=== PATIENT | male | born 1960 | race Caucasian/White ===

== ENCOUNTER → 2016-11-09 | Outpatient (CLI) | payer BC ==
--- NOTE | 2016-11-09 16:07 | P.BASOAP ---
Subjective Principal diagnosis: Morbid obesity Patient has had progressive weight gain. He is about 15-20 pounds heavier than when he first had his lap band in 2009. He had initially done quite well losing about 150 pounds and then for no identifiable reason began to slowly gain. The patient has had some peripheral edema that was felt to not be related to any cardiac reasons. He was recently diagnosed with prostate cancer and is currently going through prostate cancer radiation. He is interested in band removal and conversion at this time. He is leaning towards a gastric bypass. He describes frequent episodes of nausea and sometimes vomiting as well. Minimal heartburn. Band currently does have fluid within it. Is not interested in loosening the band at this time. He believes he has adequate restriction overall. Denies abdominal pain. Objective - Vital Signs Vital signs: Intake & Output 11/08/16 11/09/16 11/09/16 18:59 06:59 18:59 Weight 187.198 kg - Exam Abdomen: Soft, obese, nontender Assessment/Plan (1) Morbid obesity Narrative/Plan: Patient is in my opinion a good candidate for band conversion. We discussed the options of conversion to sleeve gastrectomy or gastric bypass and I do think he would benefit more from gastric bypass at this time. We will obtain insurance coverage clearance. Following that we will have the patient attend a bariatric seminar and move forward from there. Plan: Date: Initial Weight: Initial BMI: Current Weight: 187.198 kg Current BMI: Type of Surgery: Total Volume in Band: Previous Volume: Volume Removed: Volume Added: Band Size:
[2016-11-09 16:09] VITALS: BP 151/78; PULSE 88; TEMP 97.8; BMI 57.5
== END | disposition home or self-care (01) ==
LOC: BARWHC3 14:24
PROVIDERS: ATTEND Surgery
DX: Z01.818 Encounter for other preprocedural examination (principal); E66.01 Morbid (severe) obesity due to excess calories; C61 Malignant neoplasm of prostate; Z98.84 Bariatric surgery status
CPT/HCPCS: 99201

== ENCOUNTER → 2016-11-24 | Outpatient (CLI) | payer BC ==
[2016-11-24 15:27] VITALS: BP 158/87; PULSE 99; TEMP 98.3; BMI 58.0
[2016-11-24 16:46] LABS: CH 29.7; CHCM 32.6; HCT 33.4 % (39.0-53.0); HGB 10.7 gm/dL (13.0-17.5); MCH 29.5 pg (25.0-35.0); MCHC 32.1 g/dL (31.0-37.0); MCV 91.9 fL (80.0-100.0); Mean Platelet Volume 7.9; RBC 3.63 m/uL (4.30-5.90); RDW 14.8 % (11.5-15.5); WBC 8.3 k/uL (3.8-10.6)
[2016-11-24 17:01] LABS: Calcium 8.9 mg/dL (8.4-10.2); Potassium 5.4 mmol/L (3.5-5.1); Total Bilirubin 0.2 mg/dL (0.2-1.3); Total Protein 6.7 g/dL (6.3-8.2)
[2016-11-24 17:10] LABS: % Iron Saturation 16.2 % (20-50)
[2016-11-29 06:42] LABS: Anabasine Urine <2.0 ng/mL (<2.0)
--- NOTE | 2016-12-30 04:29 | P.PN ---
Progress Note - Text DATE OF CONSULTATION: 11/24/2016 CHIEF COMPLAINT: Initial bariatric assessment. HISTORY OF PRESENT ILLNESS: Lan Tillman is a 56-year-old gentleman who has a history of long-standing morbid obesity. In June, he weighed 410 pounds. For his height of 5 feet 10-1/2 inches his ideal body weight is 173 pounds. His body mass index was 58.1. He then had a gastric band and was able to lose over 150 pounds over the course of 2-1/2 years. He was able to get down to 251 pounds. Now he comes in back to his initial weight of 409 pounds. He has already regained 158 pounds. His present body mass index was 58.0. Overall in the last 7 years, his weight loss has been essentially zero. He reports developing hypertension. His blood pressure has been as high as 220/120. He takes at least 3 different medications for his blood pressure. He reports having daily terrible headaches. He had developed neuropathy secondary to diabetes of his feet and legs. He had also been evaluated at [facility]. He reports that his hemoglobin A1c was at least as high 19.6 and has been down to 13 and now down to 6.8. He also reports history of elevated PSA levels in March 2016. He was diagnosed with prostate cancer in July 2016. He has now completed radiation treatment for his prostate. He states he has a clean bill of health now to pursue weight loss surgery. He reports having nausea. In the last 2 months, he has already gained 20 pounds. He has all fluid removed out of his band since August 2015. He has seen his accounts receivable clerk where he says his EKG has been unremarkable. He denies having a gallbladder at this time. He also reports sleep apnea. He now presents for further evaluation and management. He is evaluating for gastrectomy type options. PAST MEDICAL HISTORY: 1. Morbid obese. 2. Insulin-dependent diabetes type 2. 3. Diabetic neuropathy. 4. Hypertensive heart disease. 5. Hypothyroidism. 6. Hyperlipidemia. 7. Chronic debilitating headaches. 8. Thyroid disorder. 9. History of CVA, TIA. 10. History of prostate cancer. PAST SURGICAL HISTORY: 1. Adjustable gastric band with subsequent initial weight loss of 168 pounds, now with weight gain. 2. Cholecystectomy. 3. Heart catheterization. 4. History of surgeries to her right ankle. MEDICATIONS: 1. Glucotrol. 2. Lyrica. 3. Zestril. 4. Synthroid. 5. Lantus. 6. NovoLog. 7. [place]. 8. Neurontin. 9. Lasix. 10. Lipitor. ALLERGIES: Denies. SOCIAL HISTORY: Former tobacco user. FAMILY HISTORY: Pertinent for diabetes, morbid obesity. No reports of esophageal or stomach cancer. REVIEW OF SYSTEMS: CONSTITUTIONAL: He is 236 pounds overweight. [place] body weight is 173 pounds for 5-foot-, 10-1/2-inch frame. Highest weight 410 pounds. Highest body mass index 58.1. HEENT: No reports of troubles with vision, hearing. No reports of nasal bleeding. ENDOCRINE: No reports of thyroid disorders. Insulin-dependent diabetes. Highest hemoglobin A1c of 19 down to 6. RESPIRATORY: History of obstructive sleep apnea. No recent pneumonia. CARDIOVASCULAR: History of hypertensive heart disease and is on 3 different medications. No recent heart attack. GASTROINTESTINAL: History of gallbladder disease gallbladder is removed. Reports nausea. MUSCULOSKELETAL: History of diffuse osteoarthritis. NEURO: History of diabetic neuropathy in the feet and legs. History of chronic debilitating headache. PSYCH: No reports of depression or suicidal ideation. HEMATOLOGIC: No recent reports of DVTs or pulmonary embolism. DIETARY: Previous history of adjustable gastric band with successful weight loss down to 251 pounds now all with weight gain. PHYSICAL EXAM: VITAL SIGNS: 98.3, 99, 158/87, 16, 5 feet 10-1/2inches, 409 pounds. Body mass index of 58. GENERAL: Well-developed, pleasant male in no acute distress. HEENT: No sclerae icterus. Extraocular movements grossly intact. NECK: Supple without lymphadenopathy. CHEST: Nonlabored respirations. Equal bilateral excursions. CARDIOVASCULAR: Regular rate and rhythm. ABDOMEN: Obese, soft, nontender, nondistended. MUSCULOSKELETAL: No clubbing, cyanosis or edema. NEURO: No focal or lateralizing signs. PSYCH: Appropriate affect. Alert and oriented to person, place, and time. LABS: Hemoglobin was low at 10.7. Potassium was elevated at 5.4. BUN elevated at 39. Creatinine elevated 1.6. Previous was 1.1 two years ago. Glucose elevated at 247. Iron low at 45. Percent iron saturation low at 16.2. Triglycerides elevated 165. Vitamin D is low at 14.1. Urine cotinine is positive 5.7. Urine nicotine is 7.4. No recent EKG found. ASSESSMENT: 1. Morbid obesity due to excess calories. 2. Previous history of adjustable gastric band. 3. Poorly controlled insulin-dependent diabetes type 2. 4. History of diabetic neuropathy. 5. Hypertensive heart disease. 6. History of chronic nausea. 7. History of obstructive sleep apnea. 8. Hypothyroidism. 9. History of prostate cancer, status post radiation therapy. 10. Previous history of chronic headaches. 11. Family history of obesity. 12. Body mass is a 58.0. 13. Chronic iron deficiency anemia. PLAN: 1. He has completed a bariatric metabolic panel which demonstrates iron deficiency anemia of unclear etiology. 2. He is evaluating for gastrectomy-type procedures potentially with band removal and revision to a sleeve or gastric bypass. He is extremely high risk at this time and with recent treatment with radiation therapy for prostate cancer. I do recommend ideally a 2 stage procedure. 3. He has a previous history of poorly controlled diabetes type 2, with insulin dependence. His recent hemoglobin A1c he stated was 19 by his primary care provider. I would recommend a repeat. 4. Recommend upper endoscopy for further evaluation and management as he has nausea. This may be a reflection of diabetic gastroparesis given the severity of his poorly controlled diabetes. 5. [place] bariatric surgery collaborative data was reviewed. Benefits and risks of gastrectomy procedures were also evaluated as he already has adjustable gastric band. 6. Requirements per insurance guidelines including psychiatric assessment may be advisable. 7. Medical risk assessment. 8. Will need most recent cardiac risk assessment. 9. Recommend readjustment of a CPAP machine with his history of moderate weight gain. 10. Overall Mr. Tillman presents as a potential revision surgery with multiple risk factors. Given his current medical condition including previous history of poorly controlled diabetes, he is at risk for leaks as well as a potential wound infection and strictures. Again, will highly recommend potential 2 stage procedure as to minimize his overall risk to anesthesia and to address his history of chronic nausea.
== END | disposition home or self-care (01) ==
LOC: BARWHC3 14:16
PROVIDERS: ATTEND Surgery Plastic and Reconstructive Surgery
DX: Z01.818 Encounter for other preprocedural examination (principal); E66.01 Morbid (severe) obesity due to excess calories; Z68.43 Body mass index [BMI] 50.0-59.9, adult; E11.65 Type 2 diabetes mellitus with hyperglycemia; E11.40 Type 2 diabetes mellitus with diabetic neuropathy, unspecified; Z98.84 Bariatric surgery status; I11.9 Hypertensive heart disease without heart failure; R11.0 Nausea; G47.33 Obstructive sleep apnea (adult) (pediatric); E03.9 Hypothyroidism, unspecified; Z85.46 Personal history of malignant neoplasm of prostate; R51 Headache; Z86.73 Personal history of transient ischemic attack (TIA), and cerebral infarction without residual deficits; E89.1 Postprocedural hypoinsulinemia; E44.0 Moderate protein-calorie malnutrition; D50.8 Other iron deficiency anemias; Z84.89 Family history of other specified conditions; Z98.890 Other specified postprocedural states; Z87.891 Personal history of nicotine dependence; Z79.84 Long term (current) use of oral hypoglycemic drugs; Z79.899 Other long term (current) drug therapy; Z79.4 Long term (current) use of insulin
CPT/HCPCS: 80053; 80061; 80323; 82306; 82607; 82728; 82746; 83540; 83550; 84425; 84443; 85027; 99211

== ENCOUNTER 2017-02-23 07:16 | Day surgery (SDC) | payer BC ==
[2017-02-18 15:51] VITALS: BMI 55.7
[~2017-02-23 07:16] MED LIST: LACTATED RINGERS 1,000 ML IV SCH; LIDOCAINE 1% 20 ML VIAL (10MG/ML) FOR IV START INTRADERMA PRN
[2017-02-23 07:40] VITALS: RESP 16; TEMP 97.3
[2017-02-23 07:43] LABS: Glucose,Whole Blood 183 mg/dL (75-99)
--- NOTE | 2017-02-23 08:01 | P.GSHP ---
History of Present Illness H&P Date: 02/23/17 CHIEF COMPLAINT: GERD HISTORY OF PRESENT ILLNESS: The patient is a 56-year-old male who presents reports gastroesophageal reflux disease. Upper endoscopy was offered for further evaluation and management. PAST MEDICAL HISTORY: Please see list. PAST SURGICAL HISTORY: Please see list. MEDICATIONS: Please see list. ALLERGIES: Please see list. SOCIAL HISTORY: No illicit drug use FAMILY HISTORY: No reports of Crohn disease or ulcerative colitis. REVIEW OF ORGAN SYSTEMS: CONSTITUTIONAL: No reports of fevers or chills. GI: Denies any blood in stools or constipation. PHYSICAL EXAM: VITAL SIGNS: Stable GENERAL: Well-developed and pleasant in no acute distress. HEENT: No scleral icterus. Extraocular movements grossly intact. Moist buccal mucosa. NECK: Supple without lymphadenopathy. CHEST: Unlabored respirations. Equal bilateral excursions. CARDIOVASCULAR: Regular rate and rhythm. Distal 2+ pulses. ABDOMEN: Soft, nondistended. MUSCULOSKELETAL: No clubbing, cyanosis, or edema. ASSESSMENT: 1. Gastroesophageal reflux disease PLAN: 1. Recommend proceeding with an upper endoscopy Past Medical History Past Medical History: Cancer, CVA/TIA, Diabetes Mellitus, Hyperlipidemia, Hypertension, Thyroid Disorder Additional Past Medical History / Comment(s): neuropathy; prostate cancer being treated radiation History of Any Multi-Drug Resistant Organisms: None Reported Past Surgical History: Bariatric Surgery, Cholecystectomy, Heart Catheterization Additional Past Surgical History / Comment(s): FX of right ankle repair Past Anesthesia/Blood Transfusion Reactions: No Reported Reaction Past Psychological History: No Psychological Hx Reported Smoking Status: Former smoker Past Alcohol Use History: Rare Additional Past Alcohol Use History / Comment(s): smoked 3-31/2 pkgs a day for 35 years Past Drug Use History: None Reported - Past Family History Mother Family Medical History: No Reported History Medications and Allergies Home Medications Medication Instructions Recorded Confirmed Type Atorvastatin [Lipitor] 40 mg PO HS 08/07/14 02/18/17 History Furosemide [Lasix] 60 mg PO DAILY 08/07/14 02/18/17 History Insulin Glargine [Lantus] 50 unit SQ HS 08/07/14 02/18/17 History Levothyroxine Sodium [Synthroid] 75 mcg PO DAILY 08/07/14 02/18/17 History Lisinopril [Zestril] 2.5 mg PO DAILY 08/07/14 02/18/17 History glipiZIDE XL [Glucotrol XL] 5 mg PO DAILY 08/07/14 02/18/17 History HYDROcodone/APAP 7.5-325MG [[place] 1 tab PO QID 11/09/16 02/18/17 History 7.5-325] Pregabalin [Lyrica] 1 tab PO BID 11/09/16 02/18/17 History Ferrous Sulfate [Feosol] 325 mg PO DAILY 02/18/17 02/18/17 History Insulin Aspart [NovoLOG] 0 unit SQ AC-TID PRN 02/18/17 02/18/17 History Insulin Aspart [NovoLOG] 25 unit SQ HS 02/18/17 02/18/17 History Potassium Chloride [Klor-Con M15] 15 meq PO TUFR 02/18/17 02/18/17 History Allergies Allergy/AdvReac Type Severity Reaction Status Date / Time No Known Allergies Allergy Verified 02/23/17 07:33 Surgical - Exam Vital Signs Temp Pulse Resp BP Pulse Ox 97.3 F L 81 16 140/64 99 02/23/17 07:37 02/23/17 07:37 02/23/17 07:37 02/23/17 07:37 02/23/17 07:37 Results - Labs Abnormal Lab Results - Last 24 Hours (Table) 02/23/17 Range/Units 07:39 POC Glucose (mg/dL) 183 H (75-99) mg/dL
[2017-02-23] MEDS ORDERED: KETAMINE 10 MG/ML 20 ML VIAL ONE (08:03)
[2017-02-23] MEDS ORDERED: GLYCOPYRROLATE 0.2 MG/ML 2 ML VIAL ONE (08:03)
[2017-02-23] MEDS ORDERED: PROPOFOL 10 MG/ML 20 ML VIAL IV ONE (08:03)
[2017-02-23] MEDS ORDERED: MIDAZOLAM 2 MG/2 ML VIAL ONE (08:03)
--- NOTE | 2017-02-23 08:19 | P.PCN ---
Date of Procedure: 02/23/17 Preoperative Diagnosis: Postoperative Diagnosis: Procedure(s) Performed: Implants: Indications for Procedure: Operative Findings: Description of Procedure: PREOPERATIVE DIAGNOSIS: Gastroesophageal reflux disease. Morbid obesity. History of adjustable gastric band. POSTOPERATIVE DIAGNOSIS: Morbid obesity. Gastritis superficial with recent bleed. Gastroesophageal reflux disease. History of adjustable gastric band. OPERATION: Esophagogastroduodenoscopy with biopsies along antrum. SURGEON: Berenice Stubbs MD ANESTHESIA: MAC. INDICATIONS: The patient is a 56-year-old male who presents with a history of reflux disease and history of adjustable gastric band. Benefits and risks of the procedure were described. Informed consent was obtained. DESCRIPTION: The patient was brought into the endoscopy suite and laid in the left lateral decubitus position. An Olympus gastroscope was passed along the posterior oropharynx down to the distal esophagus where the squamocolumnar junction was encountered at 44 cm from the incisors. The stomach was entered and no bile reflux was found. Additional findings are listed below. Biopsies with cold forceps were obtained of the antrum. The first through third portion of the duodenum was examined and unremarkable. Retroflexion of the scope confirmed Hill grade 1 lower esophageal valve. The squamocolumnar junction acute LA grade A erosive esophagitis. The stomach was desufflated. The patient tolerated the procedure well. FINDINGS: Squamocolumnar junction 44 cm from the incisors. Diaphragmatic hiatus at 44 cm. Adjustable gastric male without full thickness erosion. Hill grade 1 lower esophageal valve. LA grade A erosive esophagitis. No active duodenitis. Active gastritis with recent bleed. RECOMMENDATIONS: Continue medical therapy. Further recommendations pending results of pathology report. Upper endoscopy as needed. Plan - Discharge Summary New Discharge Prescriptions: No Action glipiZIDE XL [Glucotrol XL] 5 mg PO DAILY Lisinopril [Zestril] 2.5 mg PO DAILY Levothyroxine Sodium [Synthroid] 75 mcg PO DAILY Furosemide [Lasix] 60 mg PO DAILY Atorvastatin [Lipitor] 40 mg PO HS Insulin Glargine [Lantus] 50 unit SQ HS HYDROcodone/APAP 7.5-325MG [[place] 7.5-325] 1 tab PO QID Pregabalin [Lyrica] 1 tab PO BID Insulin Aspart [NovoLOG] 0 unit SQ AC-TID PRN PRN Reason: to scale Insulin Aspart [NovoLOG] 25 unit SQ HS Ferrous Sulfate [Feosol] 325 mg PO DAILY Potassium Chloride [Klor-Con M15] 15 meq PO TUFR Discharge Medication List Atorvastatin [Lipitor] 40 mg PO HS 08/07/14 [History] Furosemide [Lasix] 60 mg PO DAILY 08/07/14 [History] Insulin Glargine [Lantus] 50 unit SQ HS 08/07/14 [History] Levothyroxine Sodium [Synthroid] 75 mcg PO DAILY 08/07/14 [History] Lisinopril [Zestril] 2.5 mg PO DAILY 08/07/14 [History] glipiZIDE XL [Glucotrol XL] 5 mg PO DAILY 08/07/14 [History] HYDROcodone/APAP 7.5-325MG [[place] 7.5-325] 1 tab PO QID 11/09/16 [History] Pregabalin [Lyrica] 1 tab PO BID 11/09/16 [History] Ferrous Sulfate [Feosol] 325 mg PO DAILY 02/18/17 [History] Insulin Aspart [NovoLOG] 0 unit SQ AC-TID PRN 02/18/17 [History] Insulin Aspart [NovoLOG] 25 unit SQ HS 02/18/17 [History] Potassium Chloride [Klor-Con M15] 15 meq PO TUFR 02/18/17 [History]
[2017-02-23 08:26] LABS: Glucose,Whole Blood 190 mg/dL (75-99)
[2017-02-23 08:42] VITALS: BP 131/74; PULSE 90
== END 2017-02-23 09:07 | disposition home or self-care (01) ==
LOC: ORWHC2ENDO 07:16
PROVIDERS: ATTEND Surgery Plastic and Reconstructive Surgery
DX: K21.0 Gastro-esophageal reflux disease with esophagitis (principal); K29.51 Unspecified chronic gastritis with bleeding; E11.40 Type 2 diabetes mellitus with diabetic neuropathy, unspecified; I10 Essential (primary) hypertension; E78.5 Hyperlipidemia, unspecified; G47.33 Obstructive sleep apnea (adult) (pediatric); E07.9 Disorder of thyroid, unspecified; E66.01 Morbid (severe) obesity due to excess calories; Z68.43 Body mass index [BMI] 50.0-59.9, adult; Z79.4 Long term (current) use of insulin; Z79.84 Long term (current) use of oral hypoglycemic drugs; Z79.891 Long term (current) use of opiate analgesic; Z79.899 Other long term (current) drug therapy; Z85.46 Personal history of malignant neoplasm of prostate; Z86.73 Personal history of transient ischemic attack (TIA), and cerebral infarction without residual deficits; Z87.891 Personal history of nicotine dependence; Z98.84 Bariatric surgery status; Z90.49 Acquired absence of other specified parts of digestive tract
CPT/HCPCS: 43239; 88342; 88305; J2250; J2704

== ENCOUNTER → 2017-03-02 | Outpatient (CLI) | payer BC ==
[2017-03-02 16:00] VITALS: BP 164/75; PULSE 94; RESP 16; TEMP 97.9; BMI 58.1
--- NOTE | 2017-03-16 15:11 | P.PN ---
Progress Note - Text DATE OF CONSULTATION: 03/02/2017 CHIEF COMPLAINT: Bariatric assessment. HISTORY OF PRESENT ILLNESS: Lan Tillman is a 56-year-old gentleman who has a history of long-standing morbid obesity. He has previous history of an adjustable gastric band. Despite having the band, he has regained all of his previous w eight loss of over 100+ pounds has a history of prostate cancer now in remission. He reports even more moderate difficulty with weight loss a second time around with his gastric band. For his height of 5 feet 10-1/2 inches his ideal body weight is 173 pounds. Today he comes in when 410 pounds. He has gained 1 pounds in 3 months. His body mass index was 58.2. He is 237 pounds overweight. He completed an upper endoscopy demonstrating no overt findings of gastric pouch dilatation from his adjustable gastric band. He now comes in for surgical evaluation for gastric bypass. PAST MEDICAL HISTORY: 1. Morbid obese. 2. Insulin-dependent diabetes type 2. 3. Diabetic neuropathy. 4. Hypertensive heart disease. 5. Hypothyroidism. 6. Hyperlipidemia. 7. Chronic debilitating headaches. 8. Thyroid disorder. 9. History of CVA, TIA. 10. History of prostate cancer. PAST SURGICAL HISTORY: 1. Adjustable gastric band with subsequent initial weight loss of 168 pounds, now with weight gain. 2. Cholecystectomy. 3. Heart catheterization. 4. History of surgeries to her right ankle. 5. Upper endoscopy. MEDICATIONS: 1. Glucotrol. 2. Lyrica. 3. Zestril. 4. Synthroid. 5. Lantus. 6. NovoLog. 7. [place]. 8. Neurontin. 9. Lasix. 10. Lipitor. ALLERGIES: Denies. SOCIAL HISTORY: Former tobacco user. FAMILY HISTORY: Pertinent for diabetes, morbid obesity. No reports of esophageal or stomach cancer. REVIEW OF SYSTEMS: CONSTITUTIONAL: For his height of 5 feet 10-1/2 inches his ideal body weight is 173 pounds. Today he comes in when 410 pounds. He has gained 1 pounds in 3 months. His body mass index was 58.2. He is 237 pounds overweight. HEENT: No reports of troubles with vision, hearing. No reports of nasal bleeding. ENDOCRINE: No reports of thyroid disorders. Insulin-dependent diabetes. Highest hemoglobin A1c of 19 now improved. RESPIRATORY: History of obstructive sleep apnea. No recent pneumonia. CARDIOVASCULAR: History of hypertensive heart disease and is on 3 different medications. No recent heart attack. GASTROINTESTINAL: History of gallbladder disease gallbladder is removed. Reports nausea. MUSCULOSKELETAL: History of diffuse osteoarthritis. NEURO: History of diabetic neuropathy in the feet and legs. History of chronic debilitating headache. PSYCH: No reports of depression or suicidal ideation. HEMATOLOGIC: No recent reports of DVTs or pulmonary embolism. DIETARY: Previous history of adjustable gastric band with successful weight loss down to 251 pounds now all with weight gain. PHYSICAL EXAM: VITAL SIGNS: 5 feet 10-1/2inches, 410 pounds. Body mass index of 58.2. Vital Signs Temp 97.9 F 03/02/17 15:57 Pulse 94 03/02/17 15:57 Resp 16 03/02/17 15:57 BP 164/75 03/02/17 15:57 Pulse Ox GENERAL: Well-developed, pleasant male in no acute distress. HEENT: No sclerae icterus. Extraocular movements grossly intact. NECK: Supple without lymphadenopathy. CHEST: Nonlabored respirations. Equal bilateral excursions. CARDIOVASCULAR: Regular rate and rhythm. ABDOMEN: Obese, soft, nontender, nondistended. MUSCULOSKELETAL: No clubbing, cyanosis. Bilateral pitting edema 2+. NEURO: No focal or lateralizing signs. Cranial nerves 2-12 grossly intact. PSYCH: Appropriate affect. Alert and oriented to person, place, and time. LABS: Hemoglobin was low at 10.7. Potassium was elevated at 5.4. BUN elevated at 39. Creatinine elevated 1.6. Previous was 1.1 two years ago. Glucose elevated at 247. Iron low at 45. Percent iron saturation low at 16.2. Triglycerides elevated 165. Vitamin D is low at 14.1. Urine cotinine is positive 5.7. Urine nicotine is 7.4. No recent EKG found. PATHOLOGY: Chronic gastritis. UPPER ENDOSCOPY: FINDINGS: Squamocolumnar junction 44 cm from the incisors. Diaphragmatic hiatus at 44 cm. Adjustable gastric male without full thickness erosion. Hill grade 1 lower esophageal valve. LA grade A erosive esophagitis. No active duodenitis. Active gastritis with recent bleed. ASSESSMENT: 1. Morbid obesity due to excess calories. 2. Previous history of adjustable gastric band. 3. Poorly controlled insulin-dependent diabetes type 2. 4. History of diabetic neuropathy. 5. Hypertensive heart disease. 6. History of chronic nausea. 7. History of obstructive sleep apnea. 8. Hypothyroidism. 9. History of prostate cancer, status post radiation therapy. 10. Previous history of chronic headaches. 11. Family history of obesity. 12. Body mass is a 58.2. 13. Chronic iron deficiency anemia. 14. Tobacco exposure. 15. Chronic gastritis. 16. Vitamin D deficiency. 17. Dietary surveillance and counseling. 18. Diabetic nephropathy, stage II renal insufficiency. 19. Hypertriglyceridemia. 20. Failure of maintained weight loss with adjustable gastric band. PLAN: 1. Recommend dietary surveillance and counseling with a food diary journal. 2. Details of insurance requirement for bariatric surgery was reviewed along with the property insurance claims examiner. 3. He had labs consistent with elevated potassium. Recommend low potassium diet. 4. Continue with medical supervised weight loss with his primary care provider. 5. Recommend dietitian follow-up for history of diabetes including for gastrectomy-type diet. 6. Psych assessment per insurance guidelines. 7. Recommend cardiac risk assessment. 8. He has iron deficiency anemia and recommend iron supplement. 9. Also recommend recent hemoglobin A1c as goal hemoglobin A1c should be less than 10. 10. Recommend follow-up in 1 month for dietary surveillance and counseling. 11. Recommend removal of adjustable gastric band to completely allow healing of the stomach prior to gastrectomy. He is looking into a gastric bypass whereby a 1 stage procedure is extremely high risk for leaks and stricture.
== END | disposition home or self-care (01) ==
LOC: BARWHC3 15:25
PROVIDERS: ATTEND Surgery Plastic and Reconstructive Surgery
DX: Z48.815 Encounter for surgical aftercare following surgery on the digestive system (principal); E66.01 Morbid (severe) obesity due to excess calories; I11.9 Hypertensive heart disease without heart failure; E03.9 Hypothyroidism, unspecified; D50.9 Iron deficiency anemia, unspecified; K29.70 Gastritis, unspecified, without bleeding; E55.9 Vitamin D deficiency, unspecified; N28.9 Disorder of kidney and ureter, unspecified; E11.40 Type 2 diabetes mellitus with diabetic neuropathy, unspecified; E78.1 Pure hyperglyceridemia; Z79.4 Long term (current) use of insulin; Z79.899 Other long term (current) drug therapy; Z98.84 Bariatric surgery status
CPT/HCPCS: 99211

== ENCOUNTER → 2017-05-19 | Outpatient (CLI) | payer BC ==
--- NOTE | 2017-05-19 14:02 | XR ---
EXAMINATION TYPE: XR bone survey complete DATE OF EXAM: 05/19/2017 COMPARISON: NONE HISTORY: Z85.9 Personal history of malignant neoplasm Bony calvarium : 2 views of the bony calvarium demonstrate no evidence for lytic or osteoblastic lesi on. Spine: Two views of the cervical, thoracic and lumbar spines are submitted. no evidence for lytic or osteoblastic lesion. Degenerative disc space narrowing and spondylosis identified throughout. PELVIS: Single view of the pelvis demonstrates no evidence for lytic or osteoblastic lesion. UPPER EXTREMITIES: Two views of the upper extremities reveal no evidence for lytic or osteoblastic l esion. LOWER EXTREMITIES: 2 views of the lower extremities reveal no evidence for lytic or osteoblastic les ion. IMPRESSION: No evidence for lytic or osteoblastic lesion at this time.
== END | disposition home or self-care (01) ==
LOC: RADXRMAIN 11:53
PROVIDERS: ATTEND Internal Medicine Hematology & Oncology
DX: Z08 Encounter for follow-up examination after completed treatment for malignant neoplasm (principal); G43.909 Migraine, unspecified, not intractable, without status migrainosus; I67.89 Other cerebrovascular disease; E03.9 Hypothyroidism, unspecified; Z85.9 Personal history of malignant neoplasm, unspecified
CPT/HCPCS: 77075

== ENCOUNTER → 2018-01-17 | Outpatient (CLI) | payer MEDICARE, BC ==
[2018-01-17 11:17] LABS: HCT 32.8 % (39.0-53.0); HGB 10.7 gm/dL (13.0-17.5); MCH 27.8 pg (25.0-35.0); MCHC 32.5 g/dL (31.0-37.0); MCV 85.6 fL (80.0-100.0); Platelet Count 226 k/uL (150-450); RBC 3.83 m/uL (4.30-5.90); RDW 14.6 % (11.5-15.5); WBC 8.2 k/uL (3.8-10.6)
[2018-01-17 11:44] LABS: Calcium 8.5 mg/dL (8.4-10.2); Potassium 4.8 mmol/L (3.5-5.1)
== END | disposition home or self-care (01) ==
LOC: LABWHC1 10:44
PROVIDERS: ATTEND Urology
DX: Z01.812 Encounter for preprocedural laboratory examination (principal); D29.4 Benign neoplasm of scrotum; Z79.899 Other long term (current) drug therapy
CPT/HCPCS: 36415; 80048; 85027

== ENCOUNTER → 2018-01-20 | Day surgery (SDC) | payer MEDICARE, BC ==
[2018-01-17 15:15] VITALS: BMI 60.6
[~2018-01-20] MED LIST changes: +BUPIVACAINE (PF) 0.5% 30 ML VIAL SQ ONE; +DEXAMETHASONE SOD PHOSPHATE 10 MG/ML 1 ML VIAL IV ONE; +KETAMINE 10 MG/ML 20 ML VIAL ONE; +LIDOCAINE 2% INJ 20 MG/ML SQ ONE; +MIDAZOLAM 2 MG/2 ML VIAL IV PRN; +MIDAZOLAM 2 MG/2 ML VIAL ONE; +MORPHINE SULFATE 4 MG/ML SYRINGE IVP PRN; +ONDANSETRON 4 MG/2 ML VIAL IVP ONE; +PROPOFOL 10 MG/ML 20 ML VIAL IV ONE; +SCOPOLAMINE 1.5MG/72HR PATCH TRANSDERM ONE; +ceFAZolin IN SWFI 2 GM/20 ML SYRINGE IVP ONE; +fentaNYL (PF) 50 MCG/ML 2 ML AMP ONE
[2018-01-20 06:26] VITALS: RESP 20; TEMP 99.2
[2018-01-20 06:58] LABS: Glucose,Whole Blood 191 mg/dL (75-99)
--- NOTE | 2018-01-20 08:35 | P.OP ---
Date of Procedure: 01/20/18 Preoperative Diagnosis: Right Scrotal Lesion Postoperative Diagnosis: Same Procedure(s) Performed: Excision of Right Scrotal Lesion Anesthesia: MAC Surgeon: Zurdo Jaquez Estimated Blood Loss (ml): 20 IV fluids (ml): 300 Pathology: other (Right scrotal lesion) Condition: stable Disposition: PACU Indications for Procedure: He is a 57-year-old male with a family history of prostate cancer (grandfather) . His PSA level [place] to 4.434. KESHAWN revealed prostate to be mildly enlarged and smooth. He underwent a prostate ultrasound with biopsies, revealing [place] 6/7 prostate cancer. He was treated with IMRT and his PSA level has decreased to 0.281. He presents back with a polypoid lesion arising from the right anterior scrotal wall, for which he will undergo excision. Operative Findings: A 2 cm right scrotal mass, arising from a narrow stalk on the right anterior hemiscrotum. Description of Procedure: The patient was taken to the operating room and placed in the supine position. The external genitalia was prepped and draped sterilely. A 50-50 mixture of 2% lidocaine and 0.5% Marcaine was injected subcutaneously around the right anterior scrotal lesion. A transverse elliptical incision was then made, measuring 4-5 cm in length. This provided a margin of approximately 5 mm from the stalk of the lesion superiorly and inferiorly. Subcutaneous bleeders were controlled with electrocautery. The skin was then closed using 3-0 chromic suture in a running fashion. Bacitracin ointment was applied over the incision , followed by fluffs and a scrotal support. All sponge and needle counts were correct. The patient tolerated the procedure well and was taken to the recovery room in stable condition.
[2018-01-20 08:55] LABS: Glucose,Whole Blood 214 mg/dL (75-99)
[2018-01-20 09:24] VITALS: BP 131/74; PULSE 65
== END | disposition home or self-care (01) ==
LOC: OR 05:47
PROVIDERS: ATTEND Urology
DX: L98.0 Pyogenic granuloma (principal); D18.01 Hemangioma of skin and subcutaneous tissue; D29.4 Benign neoplasm of scrotum; N50.89 Other specified disorders of the male genital organs; I10 Essential (primary) hypertension; E78.5 Hyperlipidemia, unspecified; I25.10 Atherosclerotic heart disease of native coronary artery without angina pectoris; G47.33 Obstructive sleep apnea (adult) (pediatric); E07.9 Disorder of thyroid, unspecified; C61 Malignant neoplasm of prostate; Z80.42 Family history of malignant neoplasm of prostate; E11.42 Type 2 diabetes mellitus with diabetic polyneuropathy; E66.9 Obesity, unspecified; E78.00 Pure hypercholesterolemia, unspecified; L98.491 Non-pressure chronic ulcer of skin of other sites limited to breakdown of skin; N19 Unspecified kidney failure; F41.9 Anxiety disorder, unspecified; Z79.82 Long term (current) use of aspirin; Z79.899 Other long term (current) drug therapy; Z79.4 Long term (current) use of insulin; Z86.73 Personal history of transient ischemic attack (TIA), and cerebral infarction without residual deficits; Z87.891 Personal history of nicotine dependence; Z82.49 Family history of ischemic heart disease and other diseases of the circulatory system; Z79.2 Long term (current) use of antibiotics; Z68.44 Body mass index [BMI] 60.0-69.9, adult; Z92.3 Personal history of irradiation
CPT/HCPCS: 88305; 84132; 11422; J2001; J2250; J1100; J0690; J2405; J3010; J2704

== ENCOUNTER 2018-10-18 12:18 | Inpatient (IN) | payer MEDICARE, BC ==
[2018-10-18 13:36] LABS: Basophils # (A) 0.1 k/uL (0-0.2); Basophils % (A) 1 %; Eosinophils # (A) 0.3 k/uL (0-0.7); Eosinophils % (A) 3 %; HCT 34.3 % (39.0-53.0); HGB 10.6 gm/dL (13.0-17.5); Lymphocytes # (A) 1.2 k/uL (1.0-4.8); Lymphocytes % (A) 12 %; MCHC 30.8 g/dL (31.0-37.0); MCV 90.9 fL (80.0-100.0); Mean Platelet Volume 6.6; Monocytes # (A) 0.5 k/uL (0-1.0); Monocytes % (A) 5 %; Neutrophils # (A) 8.1 k/uL (1.3-7.7); Neutrophils % (A) 79 %; Platelet Count 189 k/uL (150-450); RBC 3.77 m/uL (4.30-5.90); RDW 14.6 % (11.5-15.5); WBC 10.3 k/uL (3.8-10.6)
--- NOTE | 2018-10-18 13:37 | ED ---
General Adult HPI - General Chief complaint: Shortness of Breath Stated complaint: poss pneumonia Time Seen by Provider: 10/18/18 12:55 Source: patient, RN notes reviewed, old records reviewed Mode of arrival: wheelchair Limitations: no limitations - History of Present Illness Initial comments: 58 -year-old male history of chronic kidney disease presents with worsening dyspnea. Patient was sent from the nephrologists office for evaluation of fluid overload and possible pneumonia seen on chest x-ray. Patient did have outpatient laboratory testing done, uncertain of his current kidney function. He states he's had worsening dyspnea for the past several weeks. Approximate worsening lower extremity edema and weight gain. Denies chest pain. Denies fever or chills. Denies cough. Patient has had left upper extremity AV graft placed overlying need for dialysis. Has not been on hemodialysis today. - Related Data Home Medications Medication Instructions Recorded Confirmed Atorvastatin [Lipitor] 40 mg PO HS 08/07/14 10/18/18 glipiZIDE XL [Glucotrol XL] 5 mg PO DAILY 08/07/14 10/18/18 HYDROcodone/APAP 7.5-325MG [[place] 1 tab PO QID PRN 11/09/16 10/18/18 7.5-325] Pregabalin [Lyrica] 50 mg PO BID 11/09/16 10/18/18 Ferrous Sulfate [Feosol] 325 mg PO DAILY 02/18/17 10/18/18 LORazepam [Ativan] 0.5 mg PO BID PRN 03/03/17 10/18/18 hydrALAZINE HCL [Apresoline] 100 mg PO HS 03/03/17 10/18/18 Febuxostat [Uloric] 40 mg PO DAILY 07/06/17 10/18/18 Levothyroxine Sodium 100 mcg PO DAILY 07/06/17 10/18/18 Metoprolol Succinate (ER) [Toprol 50 mg PO BID 07/06/17 10/18/18 XL] Insulin Aspart [NovoLOG] 25 - 30 units SQ ACHS 01/17/18 10/18/18 Insulin Glargine [Lantus] 50 unit SQ HS 01/17/18 10/18/18 Sodium Polystyrene Sulfonate 5 gm PO SUWE 10/18/18 10/18/18 [Kayexalate] Torsemide [Demadex] 40 mg PO DAILY 10/18/18 10/18/18 amLODIPine BESYLATE 10 mg PO BID 10/18/18 10/18/18 Allergies Allergy/AdvReac Type Severity Reaction Status Date / Time No Known Allergies Allergy Verified 10/18/18 14:07 Review of Systems ROS Statement: Those systems with pertinent positive or pertinent negative responses have been documented in the HPI. ROS Other: All systems not noted in ROS Statement are negative. Past Medical History Past Medical History: CVA/TIA, Diabetes Mellitus, Hypertension Additional Past Medical History / Comment(s): neuropathy, prostate cancer, CKD, hypothyroidism History of Any Multi-Drug Resistant Organisms: None Reported Past Surgical History: Bariatric Surgery, Cholecystectomy, Heart Catheterization Additional Past Surgical History / Comment(s): FX of right ankle repair Past Anesthesia/Blood Transfusion Reactions: No Reported Reaction Past Psychological History: No Psychological Hx Reported Smoking Status: Former smoker Past Alcohol Use History: Rare Past Drug Use History: None Reported - Past Family History Mother History Unknown: Yes Family Medical History: Coronary Artery Disease (CAD), Diabetes Mellitus, Myocardial Infarction ([place]) Additional Family Medical History / Comment(s): multiple sclerosis Father Family Medical History: CVA/TIA, Myocardial Infarction ([place]) General Exam Limitations: no limitations General appearance: alert, in no apparent distress Head exam: Present: atraumatic, normocephalic Eye exam: Present: normal appearance, PERRL ENT exam: Present: normal exam Neck exam: Present: normal inspection. Absent: tenderness, meningismus Respiratory exam: Present: respiratory distress (mild), rales, decreased breath sounds Cardiovascular Exam: Present: regular rate, normal rhythm GI/Abdominal exam: Present: soft. Absent: distended, tenderness, guarding Extremities exam: Present: normal inspection, normal capillary refill. Absent: pedal edema Back exam: Present: normal inspection, full ROM, tenderness Neurological exam: Present: alert, oriented X3. Absent: CN II-XII intact, motor sensory deficit Psychiatric exam: Present: normal affect, normal mood Skin exam: Present: warm, dry, intact. Absent: cyanosis, diaphoretic Course Vital Signs 10/18/18 10/18/18 12:31 14:11 Temperature 98.1 F Pulse Rate 71 99 Respiratory 18 18 Rate Blood Pressure 162/76 142/82 O2 Sat by Pulse 96 96 Oximetry EKG Findings - EKG Comments: EKG Findings:: EKG: Normal sinus rhythm, ventricular rate of 69, SC interval 188 , QRS duration 88, QTC 437, no ST segment changes Medical Decision Making - Medical Decision Making 58-year-old male history of chronic kidney disease presents from nephrologists office for evaluation and IV diuresis. Patient has chest x-ray showing right hemidiaphragm elevation, mild central vascular congestion, no effusion. No pneumonia. Patient has normal white blood cell count hemoglobin 10.6, mild hyperkalemia 5.5, creatinine 3.81, BUN is elevated at 1700, troponin negative. Patient will be admitted for IV diuresis, nephrology placed on consult. Case discussed with the admitting physician. - Lab Data Result diagrams: 10/18/18 13:12 10/18/18 13:12 Lab Results 10/18/18 10/18/18 10/18/18 Range/Units 13:12 13:12 13:12 WBC 10.3 (3.8-10.6) k/uL RBC 3.77 L (4.30-5.90) m/uL Hgb 10.6 L (13.0-17.5) gm/dL Hct 34.3 L (39.0-53.0) % MCV 90.9 (80.0-100.0) fL MCH 28.0 (25.0-35.0) pg MCHC 30.8 L (31.0-37.0) g/dL RDW 14.6 (11.5-15.5) % Plt Count 189 (150-450) k/uL Neutrophils % 79 % Lymphocytes % 12 % Monocytes % 5 % Eosinophils % 3 % Basophils % 1 % Neutrophils # 8.1 H (1.3-7.7) k/uL Lymphocytes # 1.2 (1.0-4.8) k/uL Monocytes # 0.5 (0-1.0) k/uL Eosinophils # 0.3 (0-0.7) k/uL Basophils # 0.1 (0-0.2) k/uL PT (9.0-12.0) sec INR (<1.2) APTT (22.0-30.0) sec Sodium 139 (137-145) mmol/L Potassium 5.5 H (3.5-5.1) mmol/L Chloride 109 H (98-107) mmol/L Carbon Dioxide 26 (22-30) mmol/L Anion Gap 4 mmol/L BUN 46 H (9-20) mg/dL Creatinine 3.81 H (0.66-1.25) mg/dL Est GFR (CKD-EPI)AfAm 19 (>60 ml/min/1.73 sqM) Est GFR (CKD-EPI)NonAf 16 (>60 ml/min/1.73 sqM) Glucose 197 H (74-99) mg/dL Calcium 8.2 L (8.4-10.2) mg/dL Magnesium 2.7 H (1.6-2.3) mg/dL Total Bilirubin 0.3 (0.2-1.3) mg/dL AST 23 (17-59) U/L ALT 33 (21-72) U/L Alkaline Phosphatase 111 (38-126) U/L Total Creatine Kinase 107 (55-170) U/L CK-MB (CK-2) 0.9 (0.0-2.4) ng/mL CK-MB (CK-2) Rel Index 0.8 Troponin I <0.012 (0.000-0.034) ng/mL NT-Pro-B Natriuret Pep pg/mL Total Protein 5.8 L (6.3-8.2) g/dL Albumin 2.9 L (3.5-5.0) g/dL 10/18/18 10/18/18 Range/Units 13:12 13:12 WBC (3.8-10.6) k/uL RBC (4.30-5.90) m/uL Hgb (13.0-17.5) gm/dL Hct (39.0-53.0) % MCV (80.0-100.0) fL MCH (25.0-35.0) pg MCHC (31.0-37.0) g/dL RDW (11.5-15.5) % Plt Count (150-450) k/uL Neutrophils % % Lymphocytes % % Monocytes % % Eosinophils % % Basophils % % Neutrophils # (1.3-7.7) k/uL Lymphocytes # (1.0-4.8) k/uL Monocytes # (0-1.0) k/uL Eosinophils # (0-0.7) k/uL Basophils # (0-0.2) k/uL PT 9.7 (9.0-12.0) sec INR 0.9 (<1.2) APTT 27.1 (22.0-30.0) sec Sodium (137-145) mmol/L Potassium (3.5-5.1) mmol/L Chloride (98-107) mmol/L Carbon Dioxide (22-30) mmol/L Anion Gap mmol/L BUN (9-20) mg/dL Creatinine (0.66-1.25) mg/dL Est GFR (CKD-EPI)AfAm (>60 ml/min/1.73 sqM) Est GFR (CKD-EPI)NonAf (>60 ml/min/1.73 sqM) Glucose (74-99) mg/dL Calcium (8.4-10.2) mg/dL Magnesium (1.6-2.3) mg/dL Total Bilirubin (0.2-1.3) mg/dL AST (17-59) U/L ALT (21-72) U/L Alkaline Phosphatase (38-126) U/L Total Creatine Kinase (55-170) U/L CK-MB (CK-2) (0.0-2.4) ng/mL CK-MB (CK-2) Rel Index Troponin I (0.000-0.034) ng/mL NT-Pro-B Natriuret Pep 1740 pg/mL Total Protein (6.3-8.2) g/dL Albumin (3.5-5.0) g/dL Disposition Clinical Impression: Fluid overload, Renal insufficiency, Morbid obesity Disposition: ADMITTED IP TO THIS [facility] Condition: Stable Is patient prescribed a controlled substance at d/c from ED?: No Referrals: Hayes Oshea MD [Primary Care Provider] - 1-2 days Decision to Admit Reason: Admit from EC Decision Date: 10/18/18 Decision Time: 16:03
[2018-10-18 13:43] LABS: INR 0.9 (<1.2); Partial Thromboplastin Time 27.1 sec (22.0-30.0); Prothrombin Time 9.7 sec (9.0-12.0)
[2018-10-18 13:46] LABS: Albumin 2.9 g/dL (3.5-5.0); Calcium 8.2 mg/dL (8.4-10.2); Magnesium 2.7 mg/dL (1.6-2.3); Potassium 5.5 mmol/L (3.5-5.1); Total Bilirubin 0.3 mg/dL (0.2-1.3); Total Protein 5.8 g/dL (6.3-8.2)
--- NOTE | 2018-10-18 14:06 | XR ---
EXAMINATION TYPE: XR chest 2V DATE OF EXAM: 10/18/2018 COMPARISON: 07/06/2017 HISTORY: Shortness of breath TECHNIQUE: Frontal and lateral views of the chest are obtained. FINDINGS: Scattered senescent parenchymal changes noted. Chronic elevation right hemidiaphragm. No evidence for infiltrate. No evidence for atelectasis. Heart size is stable. Mediastinal structures are stable and grossly unremarkable. No evidence for hilar prominence. Degenerative changes dorsal spine. IMPRESSION: 1. No evidence for acute pulmonary disease. Elevation right hemidiaphragm.
[2018-10-18 14:17] LABS: Creatine Kinase 107 U/L (55-170)
[2018-10-18] MEDS ORDERED: FUROSEMIDE 10 MG/ML 10 ML VIAL IV STA (14:23)
[2018-10-18 14:28] LABS: Creatine Kinase MB 0.9 ng/mL (0.0-2.4); Troponin I <0.012 ng/mL (0.000-0.034)
[2018-10-18] MEDS ORDERED: NALOXONE 0.4 MG/ML 1 ML VIAL IV PRN (15:57)
[2018-10-18] MEDS ORDERED: LORazepam 0.5 MG TAB PO PRN (17:38)
[2018-10-18] MEDS: HYDROcodone/APAP 7.5-325MG 1 EACH TAB PO PRN ×2 (18:14→23:04)
[2018-10-18] MEDS: SODIUM POLYSTYRENE SULFONATE 15 GM/60 ML BOTTLE PO SCH (18:30)
[2018-10-18 20:12] LABS: Glucose,Whole Blood 253 mg/dL (75-99)
[2018-10-18] MEDS: INSULIN ASPART (NovoLOG) 100 UNIT/ML VIAL SQ SCH (20:43)
[2018-10-18] MEDS: FUROSEMIDE 10 MG/ML 10 ML VIAL IV SCH (20:43)
[2018-10-18] MEDS: ATORVASTATIN 40 MG TAB PO SCH (20:44)
[2018-10-18] MEDS: amLODIPine 10 MG TAB PO SCH (20:44)
[2018-10-18] MEDS: hydrALAZINE HCL 50 MG TAB PO SCH (20:44)
[2018-10-18] MEDS: PREGABALIN 50 MG CAP PO SCH (20:45)
[2018-10-18] MEDS: METOPROLOL SUCCINATE (ER) 50 MG TAB.ER.24H PO SCH (20:45)
[2018-10-18] MEDS: INSULIN DETEMIR (LEVEMIR) 100 UNIT/ML SYR SQ SCH (20:51)
[2018-10-18] MEDS ORDERED: amLODIPine 10 MG TAB PO SCH (21:00)
[2018-10-19] MEDS: LEVOTHYROXINE 100 MCG TAB PO SCH (06:24)
[2018-10-19 06:59] LABS: Glucose,Whole Blood 63 mg/dL (75-99)
[2018-10-19 07:02] LABS: Glucose,Whole Blood 90 mg/dL (75-99)
[2018-10-19] MEDS: HYDROcodone/APAP 7.5-325MG 1 EACH TAB PO PRN ×3 (07:06→19:28)
[2018-10-19 09:18] LABS: Calcium 7.8 mg/dL (8.4-10.2); Magnesium 2.6 mg/dL (1.6-2.3); Potassium 5.3 mmol/L (3.5-5.1)
[2018-10-19] MEDS: PREGABALIN 50 MG CAP PO SCH ×2 (09:51→21:05)
[2018-10-19] MEDS: METOPROLOL SUCCINATE (ER) 50 MG TAB.ER.24H PO SCH ×2 (09:51→21:06)
[2018-10-19] MEDS: ALLOPURINOL 100 MG TAB PO SCH (09:51)
[2018-10-19] MEDS: FERROUS SULFATE 325 MG TAB PO SCH (09:51)
[2018-10-19] MEDS: FUROSEMIDE 10 MG/ML 10 ML VIAL IV SCH ×2 (09:52→21:05)
[2018-10-19 10:34] LABS: Glucose,Whole Blood 186 mg/dL (75-99)
--- NOTE | 2018-10-19 11:48 | P.NPCON ---
History of Present Illness - Reason for Consult acute renal failure, chronic renal failure - History of Present Illness Reason for consultation: Acute kidney injury on chronic kidney disease History of present illness: Patient is a 58-year-old male seen in renal consultation for acute kidney injury on chronic kidney disease. Patient has chronic kidney disease stage IV secondary to biopsy-proven diabetic kidney disease with baseline creatinine near 2-2.2. His renal function seems 12 worsened. Creatinine was 3.8 on admission and is 3.93 today. Patient presented to the hospital with dyspnea. Patient states he's getting short of breath even with minimal exertion. He admits to swelling in his upper and lower extremities. He is currently maintained on Lasix 60 mg IV twice daily. Urine output this morning has been 200 mL so far. Denies use of NSAIDs. He does have a left upper extremity AV fistula which was created in July 2018. Hemodynamically stable. No vomiting or diarrhea. Oral intake is fair. No chest pain. No fever or chills. Vital signs are stable. General: The patient appeared well nourished and normally developed. HEENT: Head exam is unremarkable. Neck is without jugular venous distension. LUNGS: Breath sounds decreased. HEART: Rate and Rhythm are regular. First and second heart sounds normal. No murmurs, rubs or gallops. ABDOMEN: Abdominal exam reveals normal bowel sounds. Non-tender and non- distended. No evidence of peritonitis. EXTREMITITES: 1+ edema. Past Medical History Past Medical History: Cancer, Heart Failure, CVA/TIA, Diabetes Mellitus, GERD/ Reflux, Hyperlipidemia, Hypertension, Renal Disease, Sleep Apnea/CPAP/BIPAP, Syncope, Thyroid Disorder Additional Past Medical History / Comment(s): neuropathy, prostate cancer 44 radiation tx, CKD stage lV, hypothyroidism, tia x3,iron deficiency anemia has had iron infusions, and po iron supplement, USES CPAP MACHINE, had pne vaccine 3 -4 years ago,caption 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 History of Any Multi-Drug Resistant Organisms: None Reported Past Surgical History: Adenoidectomy, Bariatric Surgery, Cholecystectomy, Heart Catheterization, Tonsillectomy Additional Past Surgical History / Comment(s): FX of right ankle repair pins / plate, fistual lt arm jul 2018 has'nt started dialysis, lt shoulder sx (d/t separation) Past Anesthesia/Blood Transfusion Reactions: Motion Sickness Additional Past Anesthesia/Blood Transfusion Reaction / Comment(s): CLAUSTERPHOBIA Smoking Status: Former smoker - Past Family History Mother History Unknown: Yes Family Medical History: Coronary Artery Disease (CAD), Diabetes Mellitus, Myocardial Infarction ([place]) Additional Family Medical History / Comment(s): multiple sclerosis Father Family Medical History: CVA/TIA, Myocardial Infarction ([place]) Medications and Allergies Home Medications Medication Instructions Recorded Confirmed Type Atorvastatin [Lipitor] 40 mg PO HS 08/07/14 10/18/18 History glipiZIDE XL [Glucotrol XL] 5 mg PO DAILY 08/07/14 10/18/18 History HYDROcodone/APAP 7.5-325MG [[place] 1 tab PO QID PRN 11/09/16 10/18/18 History 7.5-325] Pregabalin [Lyrica] 50 mg PO BID 11/09/16 10/18/18 History Ferrous Sulfate [Feosol] 325 mg PO DAILY 02/18/17 10/18/18 History LORazepam [Ativan] 0.5 mg PO BID PRN 03/03/17 10/18/18 History hydrALAZINE HCL [Apresoline] 100 mg PO HS 03/03/17 10/18/18 History Febuxostat [Uloric] 40 mg PO DAILY 07/06/17 10/18/18 History Levothyroxine Sodium 100 mcg PO DAILY 07/06/17 10/18/18 History Metoprolol Succinate (ER) [Toprol 50 mg PO BID 07/06/17 10/18/18 History XL] Insulin Aspart [NovoLOG] 25 - 30 units SQ [facility] 01/17/18 10/18/18 History Insulin Glargine [Lantus] 50 unit SQ HS 01/17/18 10/18/18 History Sodium Polystyrene Sulfonate 5 gm PO SUWE 10/18/18 10/18/18 History [Kayexalate] Torsemide [Demadex] 40 mg PO DAILY 10/18/18 10/18/18 History amLODIPine BESYLATE 10 mg PO BID 10/18/18 10/18/18 History Allergies Allergy/AdvReac Type Severity Reaction Status Date / Time No Known Allergies Allergy Verified 10/18/18 14:07 Physical Exam Vitals: Vital Signs Temp Pulse Pulse Pulse Resp BP BP 10/19/18 07:34 97.9 F 67 18 119/58 10/19/18 03:56 15 10/18/18 23:39 98.3 F 74 15 155/73 10/18/18 23:35 16 10/18/18 20:00 14 10/18/18 19:54 98.3 F 67 14 148/79 10/18/18 17:26 70 18 10/18/18 16:40 97.9 F 70 18 159/77 10/18/18 16:21 66 18 150/66 10/18/18 14:11 99 18 142/82 10/18/18 12:31 98.1 F 71 18 162/76 Pulse Ox 10/19/18 07:34 93 L 10/19/18 03:56 10/18/18 23:39 95 10/18/18 23:35 10/18/18 20:00 10/18/18 19:54 94 L 10/18/18 17:26 10/18/18 16:40 93 L 10/18/18 16:21 97 10/18/18 14:11 96 10/18/18 12:31 96 Intake and Output 10/18/18 10/19/18 10/19/18 22:59 06:59 14:59 Intake Total 518 Output Total 200 Balance 318 Intake: Oral 518 Output: Urine 200 Other: Voiding Method Toilet Toilet # Voids 1 Weight 184.4 kg Results - Lab Results Most recent lab results Calcium 7.8 mg/dL (8.4-10.2) L 10/19/18 08:15 Magnesium 2.6 mg/dL (1.6-2.3) H 10/19/18 08:15 10/18/18 13:12 10/19/18 08:15 Assessment and Plan Plan: Assessment: 1. Acute kidney injury mostly prerenal secondary to diuresis. Creatinine up at 3.93 today. Patient's kidney disease appears to have progressed to close to stage V at this time. 2. Chronic kidney disease stage IV secondary to biopsy-proven diabetic kidney disease. 3. Volume overload. 4. Insulin-dependent diabetes mellitus. 5. Hypertension with chronic any disease. Controlled. 6. Mild hyperkalemia secondary to chronic kidney disease and hyperglycemia. Plan: Maintain Lasix 60 mg IV twice daily for now. Will obtain clearance from vascular surgery for the use for AV fistula. Depending on his volume status and kidney function, may need to initiate renal replacement therapy at this admission. Patient is agreeable. Check phosphorus level. Repeat electrolytes in the morning. Thank you for the consultation. I will continue to follow the patient with you during his hospital stay.
[2018-10-19 12:12] LABS: Glucose,Whole Blood 196 mg/dL (75-99)
--- NOTE | 2018-10-19 12:30 | P.HPIM ---
History of Present Illness H&P Date: 10/19/18 Chief Complaint: Edema, shortness of breath This is a 58-year-old male patient of Dr. Oshea, Dr. Dove and Dr. Liz past medical history of sleep apnea, chronic kidney disease stage IV , GERD, TIA, prostate cancer under the care of Dr. Jaquez, diabetes mellitus type II with diabetic neuropathy and diabetic retinopathy, hearing loss in the right ear, TIAs, hyperlipidemia, hypertension, hypothyroidism, and obstructive sleep apnea with CPAP. Regarding kidney disease, secondary to diabetic kidney disease and he does have a left upper extremity AV fistula created in July 2018. Patient has not been started on dialysis. Patient states over the last couple weeks he has had significant edema in his feet for the past year, but this is increased and has more fluid on the bottom feeling like he is walking on pads. He complains of increased edema to his arms. He complains of shortness of breath with minimal activity with dyspnea just walking to the bathroom and back. Patient states he feels that is best when he is at rest. He has had a workup with Dr. Liz with echocardiogram, EKG, carotid ultrasound and stress test which came back okay, according to the patient. Patient has been on torsemide and in the past up to 100 mg daily, but states he got dehydrated, but he continued to have edema. Regarding diabetes, patient states his hemoglobin A1c runs between 7 and 7.5 versus a remote A1c of 19.1. Patient was at nephrology office yesterday and was sent into [facility] emergency center for evaluation due to fluid overload and concern for pneumonia. He was afebrile, heart rate running between 70 and 99, blood pressure 162/76, pulse ox 96%. EKG was a sinus rhythm with no acute ST changes. Hemoglobin 10.6, white count 10.3, potassium 5.5, creatinine 3.81, BUN 46, blood sugar 197, troponin 0.012. ProBNP 1740. Chest x-ray shows no evidence of acute pulmonary disease. Elevation of right hemidiaphragm. Patient was started on IV Lasix 60 mg IV every 12 hours and consult requested with nephrology and patient admitted to the [facility] floor. Consult has subsequently been added for Dr. Levy for clearance for the AV fistula use. The patient feels that he has not had any weight loss or significant urine output with Lasix at 60 mg IV every 6 hours will be increased to 80 mg twice daily. Review of Systems All systems: negative Constitutional: Reports fatigue, Reports weakness, Denies chills, Denies fever, Denies poor appetite, Denies weight loss Ears, nose, mouth and throat: Denies dental pain, Denies dysphagia, Denies epistaxis, Denies headache, Denies hoarseness, Denies vertigo Cardiovascular: Reports decreased exercise tolerance, Reports dyspnea on exertion, Reports edema, Reports leg edema, Reports orthopnea, Reports shortness of breath, Denies high blood pressure, Denies lightheadedness, Denies palpitations, Denies syncope Respiratory: Reports dyspnea, Denies cough, Denies cough with sputum, Denies excessive sputum, Denies hemoptysis, Denies wheezing Gastrointestinal: Denies abdominal pain, Denies diarrhea, Denies loss of appetite, Denies melena, Denies nausea, Denies vomiting Genitourinary: Denies dysuria, Denies urinary frequency Musculoskeletal: Denies frequent falls, Denies gait dysfunction, Denies muscle weakness Integumentary: Denies pruritus, Denies rash, Denies wounds Neurological: Reports weakness, Denies aphasia, Denies balance difficulties, Denies change in mentation, Denies change in speech, Denies confusion, Denies convulsions, Denies gait dysfunction, Denies head injury, Denies headaches, Denies seizures, Denies vertigo Psychiatric: Denies anxiety, Denies depression, Denies hallucinations, Denies suicidal ideation Endocrine: Reports fatigue, Denies cold intolerance, Denies excessive thirst, Denies low blood sugars Allergic/Immunologic: Denies wheezing Past Medical History Past Medical History: Cancer, Heart Failure, CVA/TIA, Diabetes Mellitus, GERD/ Reflux, Hyperlipidemia, Hypertension, Renal Disease, Sleep Apnea/CPAP/BIPAP, Syncope, Thyroid Disorder Additional Past Medical History / Comment(s): neuropathy, prostate cancer 44 radiation tx, CKD stage lV, hypothyroidism, tia x3,iron deficiency anemia has had iron infusions, and po iron supplement, USES CPAP MACHINE, had pne vaccine 3 -4 years ago,expert medical 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 History of Any Multi-Drug Resistant Organisms: None Reported Past Surgical History: Adenoidectomy, Bariatric Surgery, Cholecystectomy, Heart Catheterization, Tonsillectomy Additional Past Surgical History / Comment(s): FX of right ankle repair pins / plate, fistual lt arm jul 2018 has'nt started dialysis, lt shoulder sx (d/t separation) Past Anesthesia/Blood Transfusion Reactions: Motion Sickness Additional Past Anesthesia/Blood Transfusion Reaction / Comment(s): CLAUSTERPHOBIA Smoking Status: Former smoker Additional Past Alcohol Use History / Comment(s): Patient was a smoker of 3-3 packs per day for 35 years and quit in 2006. He denies any marijuana or illicit drug use. He drinks alcohol rarely. Patient was at home with his . - Past Family History Mother History Unknown: Yes Family Medical History: Coronary Artery Disease (CAD), Diabetes Mellitus, Myocardial Infarction ([place]) Additional Family Medical History / Comment(s): Mother at age 58 from multiple sclerosis Father Family Medical History: CVA/TIA, Myocardial Infarction ([place]) Additional Family Medical History / Comment(s): Father had history of [place] and CVA followed by a second [place] and CVA and at age 65. Brother(s) Additional Family Medical History / Comment(s): Patient has 2 brothers and 1 sister with no major medical problems. He denies any renal disease in his family members. Medications and Allergies Home Medications Medication Instructions Recorded Confirmed Type Atorvastatin [Lipitor] 40 mg PO HS 08/07/14 10/18/18 History glipiZIDE XL [Glucotrol XL] 5 mg PO DAILY 08/07/14 10/18/18 History HYDROcodone/APAP 7.5-325MG [[place] 1 tab PO QID PRN 11/09/16 10/18/18 History 7.5-325] Pregabalin [Lyrica] 50 mg PO BID 11/09/16 10/18/18 History Ferrous Sulfate [Feosol] 325 mg PO DAILY 02/18/17 10/18/18 History LORazepam [Ativan] 0.5 mg PO BID PRN 03/03/17 10/18/18 History hydrALAZINE HCL [Apresoline] 100 mg PO HS 03/03/17 10/18/18 History Febuxostat [Uloric] 40 mg PO DAILY 07/06/17 10/18/18 History Levothyroxine Sodium 100 mcg PO DAILY 07/06/17 10/18/18 History Metoprolol Succinate (ER) [Toprol 50 mg PO BID 07/06/17 10/18/18 History XL] Insulin Aspart [NovoLOG] 25 - 30 units SQ ACHS 01/17/18 10/18/18 History Insulin Glargine [Lantus] 50 unit SQ HS 01/17/18 10/18/18 History Sodium Polystyrene Sulfonate 5 gm PO SUWE 10/18/18 10/18/18 History [Kayexalate] Torsemide [Demadex] 40 mg PO DAILY 10/18/18 10/18/18 History amLODIPine BESYLATE 10 mg PO BID 10/18/18 10/18/18 History Allergies Allergy/AdvReac Type Severity Reaction Status Date / Time No Known Allergies Allergy Verified 10/18/18 14:07 Physical Exam Vitals: Vital Signs Temp Pulse Pulse Pulse Resp BP BP 10/19/18 07:34 97.9 F 67 18 119/58 10/19/18 03:56 15 10/18/18 23:39 98.3 F 74 15 155/73 10/18/18 23:35 16 10/18/18 20:00 14 10/18/18 19:54 98.3 F 67 14 148/79 10/18/18 17:26 70 18 10/18/18 16:40 97.9 F 70 18 159/77 10/18/18 16:21 66 18 150/66 10/18/18 14:11 99 18 142/82 10/18/18 12:31 98.1 F 71 18 162/76 Pulse Ox 10/19/18 07:34 93 L 10/19/18 03:56 10/18/18 23:39 95 10/18/18 23:35 10/18/18 20:00 10/18/18 19:54 94 L 10/18/18 17:26 10/18/18 16:40 93 L 10/18/18 16:21 97 10/18/18 14:11 96 10/18/18 12:31 96 Intake and Output 10/18/18 10/19/18 10/19/18 22:59 06:59 14:59 Intake Total 518 Output Total 200 Balance 318 Intake: Oral 518 Output: Urine 200 Other: Voiding Method Toilet Toilet # Voids 1 Weight 184.4 kg - Constitutional General appearance: cooperative, morbidly obese, no acute distress, sitting on the edge of the bed. - EENT Eyes: PERRLA ENT: hearing grossly normal, normal oropharynx, no tonsillar swelling, or mucous membranes slightly dry. - Neck Neck: no lymphadenopathy, normal ROM, no thyromegaly Carotids: bilateral: upstroke normal Thyroid: bilateral: normal size, negative: enlarged, nodule - Respiratory Respiratory: bilateral: diminished, negative: rhonchi, wheezing - Cardiovascular Rhythm: regular Heart sounds: normal: S1, S2 Abnormal Heart Sounds: no rub, no click Pedal edema 3+ bilaterally - Gastrointestinal General gastrointestinal: Morbidly obese, no hepatomegaly, normal bowel sounds, no organomegaly, soft, no tenderness - Integumentary Integumentary: normal - Neurologic Neurologic: CNII-XII intact - Musculoskeletal Musculoskeletal: gait normal, strength equal bilaterally - Psychiatric Psychiatric: A&O x's 3, appropriate affect Results CBC & Chem 7: 10/18/18 13:12 10/20/18 06:55 Labs: Abnormal Lab Results - Last 24 Hours (Table) 10/18/18 10/18/18 10/18/18 Range/Units 13:12 13:12 13:12 RBC 3.77 L (4.30-5.90) m/uL Hgb 10.6 L (13.0-17.5) gm/dL Hct 34.3 L (39.0-53.0) % MCHC 30.8 L (31.0-37.0) g/dL Neutrophils # 8.1 H (1.3-7.7) k/uL Potassium 5.5 H (3.5-5.1) mmol/L Chloride 109 H (98-107) mmol/L BUN 46 H (9-20) mg/dL Creatinine 3.81 H (0.66-1.25) mg/dL Glucose 197 H (74-99) mg/dL POC Glucose (mg/dL) (75-99) mg/dL Hemoglobin A1c 7.0 H (4.0-6.0) % Calcium 8.2 L (8.4-10.2) mg/dL Magnesium 2.7 H (1.6-2.3) mg/dL Total Protein 5.8 L (6.3-8.2) g/dL Albumin 2.9 L (3.5-5.0) g/dL 10/18/18 10/19/18 10/19/18 Range/Units 20:10 06:39 08:15 RBC (4.30-5.90) m/uL Hgb (13.0-17.5) gm/dL Hct (39.0-53.0) % MCHC (31.0-37.0) g/dL Neutrophils # (1.3-7.7) k/uL Potassium 5.3 H (3.5-5.1) mmol/L Chloride 110 H (98-107) mmol/L BUN 49 H (9-20) mg/dL Creatinine 3.93 H (0.66-1.25) mg/dL Glucose 170 H (74-99) mg/dL POC Glucose (mg/dL) 253 H 63 L (75-99) mg/dL Hemoglobin A1c (4.0-6.0) % Calcium 7.8 L (8.4-10.2) mg/dL Magnesium 2.6 H (1.6-2.3) mg/dL Total Protein (6.3-8.2) g/dL Albumin (3.5-5.0) g/dL 10/19/18 Range/Units 10:33 RBC (4.30-5.90) m/uL Hgb (13.0-17.5) gm/dL Hct (39.0-53.0) % MCHC (31.0-37.0) g/dL Neutrophils # (1.3-7.7) k/uL Potassium (3.5-5.1) mmol/L Chloride (98-107) mmol/L BUN (9-20) mg/dL Creatinine (0.66-1.25) mg/dL Glucose (74-99) mg/dL POC Glucose (mg/dL) 186 H (75-99) mg/dL Hemoglobin A1c (4.0-6.0) % Calcium (8.4-10.2) mg/dL Magnesium (1.6-2.3) mg/dL Total Protein (6.3-8.2) g/dL Albumin (3.5-5.0) g/dL Thrombosis Risk Factor Assmnt - DVT/VTE Prophylaxis DVT/VTE Prophylaxis: Pharmacologic Prophylaxis ordered - Choose All That Apply Any of the Below Risk Factors Present?: Yes Each Factor Represents 1 point: Age 41-60 years, Obesity (BMI >25) Other Risk Factors: No Other congenital or acquired thrombophilia - If yes, enter type in comment: No Thrombosis Risk Factor Assessment Total Risk Factor Score: 2 Thrombosis Risk Factor Assessment Level: Low Risk Assessment and Plan Plan: 1. Acute kidney injury with chronic kidney disease stage IV secondary to diabetic kidney disease with fluid overload and possible component of acute diastolic heart failure. Consult with nephrology appreciated. Patient's Lasix has been increased 80 mg IV twice daily. Continue Kayexalate 5 g Tuesday and Tuesday, Vascular surgery to give clearance to use AV fistula and patient may be initiated on hemodialysis. Monitor electrolytes and kidney function closely , avoid nephrotoxic medications. 2. Insulin-dependent diabetes type 2 with hyperglycemia. Continue glipizide 2.5 twice a day, Lantus 50 units at bedtime, Humalog 25 units before meals and at bedtime and sliding scale with Accu-Cheks, A1c pending. 3. Hypertension. Continue Lasix 80 mg IV twice daily, metoprolol 50 mg twice a day, hydralazine 100 mg at bedtime, Norvasc 105 mg at bedtime. 4. Sleep apnea. Continue CPAP. 5. GERD. Continue Protonix 40 mg 6. Neuropathy. Continue Lyrica 50 mg twice a day and [place] 7.5-325 mg every 6 hours as needed for pain. 7. Hypothyroidism. Continue levothyroxine 100 mg daily. 8. Hyperlipidemia. Continue Lipitor 40 mg daily. 9. History of prostate cancer. Received radiation therapy in September 2016, currently in remission, will continue to monitor. 10. Morbid obesity with history of lap band. 11. Anemia of chronic kidney disease. Continue ferrous sulfate 325 mg by mouth daily. 12. Generalized anxiety disorder. Continue Ativan 0.5 mg twice daily as needed. 13. Diabetes mellitus type 2 with diabetic neuropathy and diabetic retinopathy. 14. DVT prophylaxis heparin 15. GI prophylaxis Protonix 40 mg. Patient will be admitted to the hospital for a minimum of 2 night stay. Discharge plan: Most likely return home. Impression and plan of care have been directed as dictated by the signing physician. Laine Jones nurse practitioner acting as scribe for signing physician.
[2018-10-19] MEDS: INSULIN ASPART (NovoLOG) 100 UNIT/ML VIAL SQ SCH ×7 (13:31→20:47)
[2018-10-19] MEDS: HEPARIN SODIUM,PORCINE 5,000 UNIT/ML 1 ML VIAL SQ SCH (16:28)
[2018-10-19 17:08] LABS: Glucose,Whole Blood 83 mg/dL (75-99)
[2018-10-19 20:57] LABS: Glucose,Whole Blood 93 mg/dL (75-99)
[2018-10-19] MEDS: INSULIN DETEMIR (LEVEMIR) 100 UNIT/ML SYR SQ SCH (20:59)
[2018-10-19] MEDS: hydrALAZINE HCL 50 MG TAB PO SCH (21:05)
[2018-10-19] MEDS: amLODIPine 10 MG TAB PO SCH (21:05)
[2018-10-20] MEDS: HEPARIN SODIUM,PORCINE 5,000 UNIT/ML 1 ML VIAL SQ SCH ×4 (00:29→23:47)
[2018-10-20] MEDS: HYDROcodone/APAP 7.5-325MG 1 EACH TAB PO PRN ×4 (00:29→18:53)
[2018-10-20] MEDS: LEVOTHYROXINE 100 MCG TAB PO SCH (05:30)
[2018-10-20 06:48] LABS: Glucose,Whole Blood 192 mg/dL (75-99)
[2018-10-20 07:57] LABS: Calcium 7.8 mg/dL (8.4-10.2); Magnesium 2.4 mg/dL (1.6-2.3); Potassium 5.1 mmol/L (3.5-5.1)
[2018-10-20] MEDS: INSULIN ASPART (NovoLOG) 100 UNIT/ML VIAL SQ SCH ×6 (09:06→20:40)
[2018-10-20] MEDS: FUROSEMIDE 10 MG/ML 10 ML VIAL IV SCH ×3 (09:07→23:47)
[2018-10-20] MEDS: METOPROLOL SUCCINATE (ER) 50 MG TAB.ER.24H PO SCH ×2 (09:08→20:38)
[2018-10-20] MEDS: PREGABALIN 50 MG CAP PO SCH ×2 (09:08→20:38)
[2018-10-20] MEDS: FERROUS SULFATE 325 MG TAB PO SCH (09:08)
[2018-10-20] MEDS: PANTOPRAZOLE 40 MG TABLET PO SCH (09:08)
[2018-10-20] MEDS: ALLOPURINOL 100 MG TAB PO SCH (09:08)
[2018-10-20 11:24] LABS: Glucose,Whole Blood 199 mg/dL (75-99)
--- NOTE | 2018-10-20 14:27 | P.PN ---
Subjective Progress Note Date: 10/20/18 This is a 58-year-old male patient of Dr. Oshea, Dr. Dove and Dr. Liz past medical history of sleep apnea, chronic kidney disease stage IV , GERD, TIA, prostate cancer under the care of Dr. Jaquez, diabetes mellitus type II with diabetic neuropathy and diabetic retinopathy, hearing loss in the right ear, TIAs, hyperlipidemia, hypertension, hypothyroidism, and obstructive sleep apnea with CPAP. Regarding kidney disease, secondary to diabetic kidney disease and he does have a left upper extremity AV fistula created in July 2018. Patient has not been started on dialysis. Patient states over the last couple weeks he has had significant edema in his feet for the past year, but this is increased and has more fluid on the bottom feeling like he is walking on pads. He complains of increased edema to his arms. He complains of shortness of breath with minimal activity with dyspnea just walking to the bathroom and back. Patient states he feels that is best when he is at rest. He has had a workup with Dr. Liz with echocardiogram, EKG, carotid ultrasound and stress test which came back okay, according to the patient. Patient has been on torsemide and in the past up to 100 mg daily, but states he got dehydrated, but he continued to have edema. Regarding diabetes, patient states his hemoglobin A1c runs between 7 and 7.5 versus a remote A1c of 19.1. Patient was at nephrology office yesterday and was sent into [facility] emergency center for evaluation due to fluid overload and concern for pneumonia. He was afebrile, heart rate running between 70 and 99, blood pressure 162/76, pulse ox 96%. EKG was a sinus rhythm with no acute ST changes. Hemoglobin 10.6, white count 10.3, potassium 5.5, creatinine 3.81, BUN 46, blood sugar 197, troponin 0.012. ProBNP 1740. Chest x-ray shows no evidence of acute pulmonary disease. Elevation of right hemidiaphragm. Patient was started on IV Lasix 60 mg IV every 12 hours and consult requested with nephrology and patient admitted to the [facility] floor. Consult has subsequently been added for Dr. Levy for clearance for the AV fistula use. The patient feels that he has not had any weight loss or significant urine output with Lasix at 60 mg IV every 6 hours will be increased to 80 mg twice daily. 10/20: Patient has been on increased dose of IV Lasix at 80 mg twice daily and states he still has significant edema and has not noted any improvement. Dr. Hess is increased Lasix to 80 mg every 8 hours and added metolazone [address] Levy has given clearance for use of left arm fistula and he is to start hemodialysis tomorrow. Telemetry will be discontinued. He has been afebrile, heart rate running in the 60s, carry out clerk sinus rhythm. Blood pressure 115 over 64. Pulse ox is 97% on room air. Patient did use CPAP last evening. Repeat lab work shows BUN 48, creatinine 3.95, chloride is 110, sodium 140, potassium 5.1. Capillary blood glucose running 93 to 199 but drops low at presupper and at bedtime. NovoLog scheduled at supper and bedtime will be held. Review of Systems All systems: negative Constitutional: Reports fatigue, Reports weakness, Denies chills, Denies fever, Denies poor appetite, Denies weight loss Ears, nose, mouth and throat: Denies dental pain, Denies dysphagia, Denies epistaxis, Denies headache, Denies hoarseness, Denies vertigo Cardiovascular: Reports decreased exercise tolerance, Reports dyspnea on exertion, Reports edema, Reports leg edema bilaterally, Reports orthopnea, Reports shortness of breath, Denies high blood pressure, Denies lightheadedness , Denies palpitations, Denies syncope Respiratory: Reports dyspnea, Denies cough, Denies cough with sputum, Denies excessive sputum, Denies hemoptysis, Denies wheezing Gastrointestinal: Denies abdominal pain, Denies diarrhea, Denies loss of appetite, Denies melena, Denies nausea, Denies vomiting Genitourinary: Denies dysuria, Denies urinary frequency Musculoskeletal: Denies frequent falls, Denies gait dysfunction, Denies muscle weakness Integumentary: Denies pruritus, Denies rash, Denies wounds Neurological: Reports weakness, Denies aphasia, Denies balance difficulties, Denies change in mentation, Denies change in speech, Denies confusion, Denies convulsions, Denies gait dysfunction, Denies head injury, Denies headaches, Denies seizures, Denies vertigo Psychiatric: Denies anxiety, Denies depression, Denies hallucinations, Denies suicidal ideation Endocrine: Reports fatigue, Denies cold intolerance, Denies excessive thirst, Denies low blood sugars Allergic/Immunologic: Denies wheezing Objective - Vital Signs Vital signs: Vital Signs Temp 97.7 F 10/20/18 06:54 Pulse 62 10/20/18 06:54 Resp 16 10/19/18 23:57 BP 115/64 10/20/18 06:54 Pulse Ox 95 10/20/18 06:54 Intake & Output 10/19/18 10/20/18 10/20/18 18:59 06:59 18:59 Intake Total 1442 Output Total 950 1275 Balance 492 -1275 Weight 184.4 kg 185.1 kg Intake: Oral 1442 Output: Urine 950 1275 Other: Voiding Method Urinal Urinal - Exam General appearance: cooperative, morbidly obese, no acute distress, sitting on the edge of the bed. - EENT Eyes: PERRLA ENT: hearing grossly normal, normal oropharynx, no tonsillar swelling, or mucous membranes slightly dry. - Neck Neck: no lymphadenopathy, normal ROM, no thyromegaly Carotids: bilateral: upstroke normal Thyroid: bilateral: normal size, negative: enlarged, nodule - Respiratory Respiratory: bilateral: diminished, negative: rhonchi, wheezing - Cardiovascular Rhythm: regular Heart sounds: normal: S1, S2 Abnormal Heart Sounds: no rub, no click Pedal edema 3+ bilaterally - Gastrointestinal General gastrointestinal: Morbidly obese, no hepatomegaly, normal bowel sounds, no organomegaly, soft, no tenderness - Integumentary Integumentary: normal - Neurologic Neurologic: CNII-XII intact - Musculoskeletal Musculoskeletal: gait normal, strength equal bilaterally - Psychiatric Psychiatric: A&O x's 3, appropriate affect - Labs CBC & Chem 7: 10/18/18 13:12 10/20/18 06:55 Labs: Abnormal Lab Results - Last 24 Hours (Table) 10/19/18 10/19/18 10/19/18 Range/Units 08:15 10:33 12:10 Chloride (98-107) mmol/L BUN (9-20) mg/dL Creatinine (0.66-1.25) mg/dL Glucose (74-99) mg/dL POC Glucose (mg/dL) 186 H 196 H (75-99) mg/dL Calcium (8.4-10.2) mg/dL Phosphorus 5.7 H (2.5-4.5) mg/dL Magnesium (1.6-2.3) mg/dL 10/20/18 10/20/18 Range/Units 06:37 06:55 Chloride 110 H (98-107) mmol/L BUN 48 H (9-20) mg/dL Creatinine 3.95 H (0.66-1.25) mg/dL Glucose 183 H (74-99) mg/dL POC Glucose (mg/dL) 192 H (75-99) mg/dL Calcium 7.8 L (8.4-10.2) mg/dL Phosphorus (2.5-4.5) mg/dL Magnesium 2.4 H (1.6-2.3) mg/dL Microbiology - Last 24 Hours (Table) 10/18/18 13:12 Blood Culture - Preliminary Blood No Growth after 24 hours Assessment and Plan Plan: 1. Acute kidney injury with chronic kidney disease stage IV secondary to diabetic kidney disease with fluid overload and possible component of acute diastolic heart failure. Consult with nephrology appreciated. Patient's Lasix has been increased 80 mg IV 3 times daily and Zaroxolyn added. Continue Kayexalate 5 g Tuesday and Tuesday, Vascular surgery has given clearance to use AV fistula and patientto be initiated on hemodialysis tomorrow. Monitor electrolytes and kidney function closely, avoid nephrotoxic medications. 2. Insulin-dependent diabetes type 2 uncontrolled with hyperglycemia and hypoglycemia. Continue glipizide 2.5 twice a day, Lantus 50 units at bedtime, Humalog 25 units changed to breakfast and lunch and sliding scale with Accu- Cheks, A1c pending. 3. Hypertension. Continue Lasix 80 mg IV twice daily, metoprolol 50 mg twice a day, hydralazine 100 mg at bedtime, Norvasc 105 mg at bedtime. 4. Sleep apnea. Continue CPAP. 5. GERD. Continue Protonix 40 mg 6. Neuropathy. Continue Lyrica 50 mg twice a day and [place] 7.5-325 mg every 6 hours as needed for pain. 7. Hypothyroidism. Continue levothyroxine 100 mg daily. 8. Hyperlipidemia. Continue Lipitor 40 mg daily. 9. History of prostate cancer. Received radiation therapy in September 2016, currently in remission, will continue to monitor. 10. Morbid obesity with history of lap band. 11. Anemia of chronic kidney disease. Continue ferrous sulfate 325 mg by mouth daily. 12. Generalized anxiety disorder. Continue Ativan 0.5 mg twice daily as needed. 13. Diabetes mellitus type 2 with diabetic neuropathy and diabetic retinopathy. 14. DVT prophylaxis heparin 15. GI prophylaxis Protonix 40 mg. Discharge plan: Most likely return home. Impression and plan of care have been directed as dictated by the signing physician. Laine Jones nurse practitioner acting as scribe for signing physician.
--- NOTE | 2018-10-20 14:58 | PN ---
PROGRESS NOTE Patient is seen for followup for chronic kidney disease. He was admitted to the hospital with worsening lower extremity edema and shortness of breath as well. Patient feels bloated. He is currently maintained on IV Lasix. Overall edema has not improved much. Patient does have an AV fistula which is ready to use, and there are plans to start him on dialysis. Since there is no significant improvement since yesterday, I will schedule the patient for hemodialysis tomorrow. This will be his first treatment. In the meantime, I will increase the Lasix. On examination this morning, blood pressure was 115/64, heart rate 62 per minute. Patient is afebrile. EXAMINATION OF THE HEART: S1, S2. EXAMINATION OF LUNGS: Bilateral breath sounds are heard. ABDOMEN: Soft, morbidly obese, distended, non-tender. Examination of lower extremities shows edema 3+ bilaterally. TURPENTINE DISTILLER exam is grossly intact. Labs show sodium 140, potassium 5.1, BUN 48, serum creatinine 3.95. ASSESSMENT: 1. Chronic kidney disease, NKF stage IV to V, currently with severe volume overload and worsening renal function. We will proceed with starting renal replacement therapy tomorrow. Vascular Surgery has okayed the fistula for use and we will start with small needles. In the meantime, I will increase the Lasix. 2. Volume overload. Expect improvement with initiation of dialysis tomorrow. Continue with increased dose of loop diuretics for now. Add Zaroxolyn as well. 3. Type 2 diabetes. 4. Morbid obesity. 5. Hyperkalemia. Expect improvement with initiation of dialysis. PLAN: Increase Lasix. Add Zaroxolyn. Start dialysis tomorrow. MMODL / IJN: [id number] /
[2018-10-20 16:40] LABS: Glucose,Whole Blood 244 mg/dL (75-99)
[2018-10-20] MEDS: METOLAZONE 5 MG TAB PO SCH (16:42)
[2018-10-20 16:54] LABS: Hepatitis A Antibody IgM Non-Reactive (Non-Reactive); Hepatitis B Core IgM Non-Reactive (Non-Reactive)
[2018-10-20] MEDS ORDERED: INSULIN ASPART (NovoLOG) 100 UNIT/ML VIAL SQ SCH (17:30)
[2018-10-20 20:12] LABS: Glucose,Whole Blood 142 mg/dL (75-99)
[2018-10-20] MEDS: hydrALAZINE HCL 50 MG TAB PO SCH (20:38)
[2018-10-20] MEDS: amLODIPine 10 MG TAB PO SCH (20:38)
[2018-10-20] MEDS: ATORVASTATIN 40 MG TAB PO SCH (20:38)
[2018-10-20] MEDS: INSULIN DETEMIR (LEVEMIR) 100 UNIT/ML SYR SQ SCH (20:39)
[2018-10-21] MEDS: HYDROcodone/APAP 7.5-325MG 1 EACH TAB PO PRN ×4 (00:38→19:00)
[2018-10-21] MEDS: LEVOTHYROXINE 100 MCG TAB PO SCH (05:03)
[2018-10-21 07:22] LABS: Glucose,Whole Blood 137 mg/dL (75-99)
[2018-10-21] MEDS: FERROUS SULFATE 325 MG TAB PO SCH (07:42)
[2018-10-21] MEDS: PANTOPRAZOLE 40 MG TABLET PO SCH (07:42)
[2018-10-21] MEDS: ALLOPURINOL 100 MG TAB PO SCH (07:42)
[2018-10-21] MEDS: METOPROLOL SUCCINATE (ER) 50 MG TAB.ER.24H PO SCH ×2 (07:42→22:58)
[2018-10-21] MEDS: PREGABALIN 50 MG CAP PO SCH ×2 (07:43→22:58)
[2018-10-21] MEDS: HEPARIN SODIUM,PORCINE 5,000 UNIT/ML 1 ML VIAL SQ SCH ×2 (07:46→17:33)
[2018-10-21] MEDS: METOLAZONE 5 MG TAB PO SCH (07:46)
[2018-10-21] MEDS: INSULIN ASPART (NovoLOG) 100 UNIT/ML VIAL SQ SCH ×7 (07:47→22:31)
[2018-10-21] MEDS: FUROSEMIDE 10 MG/ML 10 ML VIAL IV SCH ×2 (07:55→17:32)
[2018-10-21 09:11] LABS: Basophils # (A) 0.1 k/uL (0-0.2); Basophils % (A) 1 %; Eosinophils # (A) 0.2 k/uL (0-0.7); Eosinophils % (A) 3 %; HCT 30.1 % (39.0-53.0); HGB 9.6 gm/dL (13.0-17.5); Lymphocytes # (A) 1.2 k/uL (1.0-4.8); Lymphocytes % (A) 19 %; MCH 29.5 pg (25.0-35.0); MCV 92.2 fL (80.0-100.0); Mean Platelet Volume 6.5; Monocytes # (A) 0.3 k/uL (0-1.0); Monocytes % (A) 5 %; Neutrophils # (A) 4.3 k/uL (1.3-7.7); Neutrophils % (A) 69 %; Platelet Count 150 k/uL (150-450); RBC 3.26 m/uL (4.30-5.90); RDW 14.4 % (11.5-15.5); WBC 6.2 k/uL (3.8-10.6)
[2018-10-21 09:32] LABS: Magnesium 2.3 mg/dL (1.6-2.3); Phosphorus 6.6 mg/dL (2.5-4.5); Potassium 5.1 mmol/L (3.5-5.1)
[2018-10-21] MEDS: MAGNESIUM HYDROXIDE 2,400 MG/10 ML CUP PO SCH (10:03)
--- NOTE | 2018-10-21 10:30 | P.PN ---
Subjective Patient is seen in follow-up for acute kidney injury on chronic kidney disease. Creatinine up to 4.3 today itches due to diuresis. Remains dyspneic even with minimal exertion. No vomiting or diarrhea. Hemodynamically stable. Vital signs are stable. General: The patient appeared well nourished and normally developed. HEENT: Head exam is unremarkable. Neck is without jugular venous distension. LUNGS: Lungs are clear to auscultation and percussion. Breath sounds decreased. HEART: Rate and Rhythm are regular. First and second heart sounds normal. No murmurs, rubs or gallops. ABDOMEN: Abdominal exam reveals normal bowel sounds. Non-tender and non- distended. No evidence of peritonitis. EXTREMITITES: No clubbing, cyanosis, or edema. Objective - Vital Signs Vital signs: Vital Signs Temp 98.1 F 10/21/18 07:00 Pulse 65 10/21/18 07:00 Resp 17 10/21/18 07:30 BP 168/80 10/21/18 07:00 Pulse Ox 97 10/21/18 07:00 Intake & Output 10/20/18 10/21/18 10/21/18 18:59 06:59 18:59 Intake Total 240 Output Total 2125 400 600 Balance -1885 -400 -600 Weight 186 kg Intake: Oral 240 Output: Urine 2125 400 600 Other: Voiding Method Urinal Urinal Urinal # Voids 2 - Labs CBC & Chem 7: 10/21/18 08:17 10/21/18 08:17 Labs: Abnormal Lab Results - Last 24 Hours (Table) 10/20/18 10/20/18 10/20/18 Range/Units 11:13 16:29 20:00 RBC (4.30-5.90) m/uL Hgb (13.0-17.5) gm/dL Hct (39.0-53.0) % BUN (9-20) mg/dL Creatinine (0.66-1.25) mg/dL Glucose (74-99) mg/dL POC Glucose (mg/dL) 199 H 244 H 142 H (75-99) mg/dL Calcium (8.4-10.2) mg/dL Phosphorus (2.5-4.5) mg/dL 10/21/18 10/21/18 10/21/18 Range/Units 07:06 08:17 08:17 RBC 3.26 L (4.30-5.90) m/uL Hgb 9.6 L (13.0-17.5) gm/dL Hct 30.1 L (39.0-53.0) % BUN 52 H (9-20) mg/dL Creatinine 4.30 H (0.66-1.25) mg/dL Glucose 179 H (74-99) mg/dL POC Glucose (mg/dL) 137 H (75-99) mg/dL Calcium 8.0 L (8.4-10.2) mg/dL Phosphorus 6.6 H (2.5-4.5) mg/dL Microbiology - Last 24 Hours (Table) 10/18/18 13:12 Blood Culture - Preliminary Blood No Growth after 48 hours Assessment and Plan Plan: Assessment: 1. Acute kidney injury mostly prerenal secondary to diuresis. Creatinine up to 4.3 today. Patient's kidney disease appears to have progressed to stage V at this time. 2. Chronic kidney disease stage IV secondary to biopsy-proven diabetic kidney disease. 3. Volume overload. 4. Insulin-dependent diabetes mellitus. 5. Hypertension with chronic any disease. Controlled. 6. Mild hyperkalemia secondary to chronic kidney disease and hyperglycemia. Better. 7. Hyperphosphatemia secondary to chronic kidney disease. Expect improvement postdialysis. Plan: First treatment of hemodialysis today with small needles. Second treatment on Tuesday. 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
[2018-10-21 12:17] LABS: Glucose,Whole Blood 144 mg/dL (75-99)
--- NOTE | 2018-10-21 13:58 | P.PN ---
Subjective Progress Note Date: 10/21/18 This is a 58-year-old male patient of Dr. Oshea, Dr. Dove and Dr. Liz past medical history of sleep apnea, chronic kidney disease stage IV , GERD, TIA, prostate cancer under the care of Dr. Jaquez, diabetes mellitus type II with diabetic neuropathy and diabetic retinopathy, hearing loss in the right ear, TIAs, hyperlipidemia, hypertension, hypothyroidism, and obstructive sleep apnea with CPAP. Regarding kidney disease, secondary to diabetic kidney disease and he does have a left upper extremity AV fistula created in July 2018. Patient has not been started on dialysis. Patient states over the last couple weeks he has had significant edema in his feet for the past year, but this is increased and has more fluid on the bottom feeling like he is walking on pads. He complains of increased edema to his arms. He complains of shortness of breath with minimal activity with dyspnea just walking to the bathroom and back. Patient states he feels that is best when he is at rest. He has had a workup with Dr. Liz with echocardiogram, EKG, carotid ultrasound and stress test which came back okay, according to the patient. Patient has been on torsemide and in the past up to 100 mg daily, but states he got dehydrated, but he continued to have edema. Regarding diabetes, patient states his hemoglobin A1c runs between 7 and 7.5 versus a remote A1c of 19.1. Patient was at nephrology office yesterday and was sent into [facility] emergency center for evaluation due to fluid overload and concern for pneumonia. He was afebrile, heart rate running between 70 and 99, blood pressure 162/76, pulse ox 96%. EKG was a sinus rhythm with no acute ST changes. Hemoglobin 10.6, white count 10.3, potassium 5.5, creatinine 3.81, BUN 46, blood sugar 197, troponin 0.012. ProBNP 1740. Chest x-ray shows no evidence of acute pulmonary disease. Elevation of right hemidiaphragm. Patient was started on IV Lasix 60 mg IV every 12 hours and consult requested with nephrology and patient admitted to the [facility] floor. Consult has subsequently been added for Dr. Levy for clearance for the AV fistula use. The patient feels that he has not had any weight loss or significant urine output with Lasix at 60 mg IV every 6 hours will be increased to 80 mg twice daily. 10/20: Patient has been on increased dose of IV Lasix at 80 mg twice daily and states he still has significant edema and has not noted any improvement. Dr. Hess is increased Lasix to 80 mg every 8 hours and added metolazone [address] Levy has given clearance for use of left arm fistula and he is to start hemodialysis tomorrow. Telemetry will be discontinued. He has been afebrile, heart rate running in the 60s, child monitor sinus rhythm. Blood pressure 115 over 64. Pulse ox is 97% on room air. Patient did use CPAP last evening. Repeat lab work shows BUN 48, creatinine 3.95, chloride is 110, sodium 140, potassium 5.1. Capillary blood glucose running 93 to 199 but drops low at presupper and at bedtime. NovoLog scheduled at supper and bedtime will be held. 10/21: Repeat hemoglobin 9.6, BUN 52, creatinine 4.3. Patient was continued on a higher dose of Lasix 80 mg every 8 hours and he states he did not have any improvement with this. He does have shortness of breath just getting to the bathroom. Weight is up from yesterday. He is complaining of constipation requesting milk of magnesia which she normally takes at home as well as lactulose. Patient is to start hemodialysis today with second treatment on Tuesday. Review of Systems All systems: negative Constitutional: Reports fatigue, Reports weakness, Denies chills, Denies fever, Denies poor appetite, Denies weight loss Ears, nose, mouth and throat: Denies dental pain, Denies dysphagia, Denies epistaxis, Denies headache, Denies hoarseness, Denies vertigo Cardiovascular: Reports decreased exercise tolerance, Reports dyspnea on exertion, Reports edema, Reports leg edema bilaterally, Reports orthopnea, Reports shortness of breath, Denies high blood pressure, Denies lightheadedness , Denies palpitations, Denies syncope Respiratory: Reports dyspnea, Denies cough, Denies cough with sputum, Denies excessive sputum, Denies hemoptysis, Denies wheezing Gastrointestinal: Denies abdominal pain, Denies diarrhea, Denies loss of appetite, Denies melena, Denies nausea, Denies vomiting Genitourinary: Denies dysuria, Denies urinary frequency Musculoskeletal: Denies frequent falls, Denies gait dysfunction, Denies muscle weakness Integumentary: Reports pruritus, Denies rash, Denies wounds Neurological: Reports weakness, Denies aphasia, Denies balance difficulties, Denies change in mentation, Denies change in speech, Denies confusion, Denies convulsions, Denies gait dysfunction, Denies head injury, Denies headaches, Denies seizures, Denies vertigo Psychiatric: Denies anxiety, Denies depression, Denies hallucinations, Denies suicidal ideation Endocrine: Reports fatigue, Denies cold intolerance, Denies excessive thirst, Denies low blood sugars Allergic/Immunologic: Denies wheezing Objective - Vital Signs Vital signs: Vital Signs Temp 98.1 F 10/21/18 07:00 Pulse 65 10/21/18 07:00 Resp 17 10/21/18 07:00 BP 168/80 10/21/18 07:00 Pulse Ox 97 10/21/18 07:00 Intake & Output 10/20/18 10/21/18 10/21/18 18:59 06:59 18:59 Intake Total 240 Output Total 2125 400 600 Balance -1885 -400 -600 Weight 186 kg Intake: Oral 240 Output: Urine 2125 400 600 Other: Voiding Method Urinal Urinal # Voids 2 - Exam General appearance: cooperative, morbidly obese, no acute distress while in bed. - EENT Eyes: PERRLA ENT: hearing grossly normal, normal oropharynx, no tonsillar swelling, or mucous membranes slightly dry. - Neck Neck: no lymphadenopathy, normal ROM, no thyromegaly Carotids: bilateral: upstroke normal Thyroid: bilateral: normal size, negative: enlarged, nodule - Respiratory Respiratory: bilateral: diminished, negative: rhonchi, wheezing - Cardiovascular Rhythm: regular Heart sounds: normal: S1, S2 Abnormal Heart Sounds: no rub, no click Pedal edema 3+ bilaterally - Gastrointestinal General gastrointestinal: Morbidly obese, no hepatomegaly, normal bowel sounds, no organomegaly, soft, no tenderness - Integumentary Integumentary: normal - Neurologic Neurologic: CNII-XII intact - Musculoskeletal Musculoskeletal: gait normal, strength equal bilaterally - Psychiatric Psychiatric: A&O x's 3, appropriate affect - Labs CBC & Chem 7: 10/21/18 08:17 10/21/18 08:17 Labs: Abnormal Lab Results - Last 24 Hours (Table) 10/20/18 10/20/18 10/20/18 Range/Units 11:13 16:29 20:00 BUN (9-20) mg/dL Creatinine (0.66-1.25) mg/dL Glucose (74-99) mg/dL POC Glucose (mg/dL) 199 H 244 H 142 H (75-99) mg/dL Calcium (8.4-10.2) mg/dL Phosphorus (2.5-4.5) mg/dL 10/21/18 10/21/18 Range/Units 07:06 08:17 BUN 52 H (9-20) mg/dL Creatinine 4.30 H (0.66-1.25) mg/dL Glucose 179 H (74-99) mg/dL POC Glucose (mg/dL) 137 H (75-99) mg/dL Calcium 8.0 L (8.4-10.2) mg/dL Phosphorus 6.6 H (2.5-4.5) mg/dL Microbiology - Last 24 Hours (Table) 10/18/18 13:12 Blood Culture - Preliminary Blood No Growth after 48 hours Assessment and Plan Plan: 1. Acute kidney injury with chronic kidney disease stage IV secondary to diabetic kidney disease with fluid overload and possible component of acute diastolic heart failure. Consult with nephrology appreciated. Patient's Lasix has been increased 80 mg IV 3 times daily and Zaroxolyn added. Continue Kayexalate 5 g Tuesday and Tuesday, Vascular surgery has given clearance to use AV fistula and patientto be initiated on hemodialysis tomorrow and repeat on Tuesday. Monitor electrolytes and kidney function closely, avoid nephrotoxic medications. 2. Insulin-dependent diabetes type 2 uncontrolled with hyperglycemia and hypoglycemia. Continue glipizide 2.5 twice a day, Lantus 50 units at bedtime, Humalog 25 units changed to breakfast and lunch and sliding scale with Accu- Cheks, A1c pending. 3. Hypertension. Continue Lasix 80 mg IV twice daily, metoprolol 50 mg twice a day, hydralazine 100 mg at bedtime, Norvasc 105 mg at bedtime. 4. Sleep apnea. Continue CPAP. 5. GERD. Continue Protonix 40 mg 6. Neuropathy. Continue Lyrica 50 mg twice a day and [place] 7.5-325 mg every 6 hours as needed for pain. 7. Hypothyroidism. Continue levothyroxine 100 mg daily. 8. Hyperlipidemia. Continue Lipitor 40 mg daily. 9. History of prostate cancer. Received radiation therapy in September 2016, currently in remission, will continue to monitor. 10. Morbid obesity with history of lap band. 11. Anemia of chronic kidney disease. Continue ferrous sulfate 325 mg by mouth daily. 12. Generalized anxiety disorder. Continue Ativan 0.5 mg twice daily as needed. 13. Diabetes mellitus type 2 with diabetic neuropathy and diabetic retinopathy. 14. DVT prophylaxis heparin 15. GI prophylaxis Protonix 40 mg. Discharge plan: Most likely return home. Impression and plan of care have been directed as dictated by the signing physician. Laine Jones nurse practitioner acting as scribe for signing physician.
[2018-10-21 17:13] LABS: Glucose,Whole Blood 71 mg/dL (75-99)
[2018-10-21 18:21] LABS: Glucose,Whole Blood 163 mg/dL (75-99)
[2018-10-21 20:31] LABS: Glucose,Whole Blood 125 mg/dL (75-99)
[2018-10-21] MEDS: amLODIPine 10 MG TAB PO SCH (22:58)
[2018-10-21] MEDS: ATORVASTATIN 40 MG TAB PO SCH (22:58)
[2018-10-21] MEDS: INSULIN DETEMIR (LEVEMIR) 100 UNIT/ML SYR SQ SCH (22:58)
[2018-10-21] MEDS: hydrALAZINE HCL 50 MG TAB PO SCH (22:58)
[2018-10-22] MEDS: HEPARIN SODIUM,PORCINE 5,000 UNIT/ML 1 ML VIAL SQ SCH ×4 (02:30→23:20)
[2018-10-22] MEDS: FUROSEMIDE 10 MG/ML 10 ML VIAL IV SCH ×2 (02:30→07:56)
[2018-10-22] MEDS: HYDROcodone/APAP 7.5-325MG 1 EACH TAB PO PRN ×4 (02:42→22:18)
[2018-10-22] MEDS: LEVOTHYROXINE 100 MCG TAB PO SCH (05:53)
[2018-10-22 07:05] LABS: Glucose,Whole Blood 152 mg/dL (75-99)
[2018-10-22 07:16] LABS: Basophils % (A) 1 %; Eosinophils # (A) 0.2 k/uL (0-0.7); Eosinophils % (A) 3 %; HCT 27.7 % (39.0-53.0); HGB 9.2 gm/dL (13.0-17.5); Lymphocytes # (A) 1.2 k/uL (1.0-4.8); Lymphocytes % (A) 17 %; MCH 30.1 pg (25.0-35.0); MCHC 33.2 g/dL (31.0-37.0); MCV 90.6 fL (80.0-100.0); Mean Platelet Volume 6.5; Monocytes # (A) 0.4 k/uL (0-1.0); Monocytes % (A) 5 %; Neutrophils # (A) 5.2 k/uL (1.3-7.7); Neutrophils % (A) 72 %; Platelet Count 139 k/uL (150-450); RBC 3.06 m/uL (4.30-5.90); RDW 14.5 % (11.5-15.5); WBC 7.3 k/uL (3.8-10.6)
[2018-10-22 07:34] LABS: Calcium 7.9 mg/dL (8.4-10.2); Potassium 4.9 mmol/L (3.5-5.1)
[2018-10-22] MEDS: PREGABALIN 50 MG CAP PO SCH ×2 (07:58→23:15)
[2018-10-22] MEDS: FERROUS SULFATE 325 MG TAB PO SCH (07:58)
[2018-10-22] MEDS: METOPROLOL SUCCINATE (ER) 50 MG TAB.ER.24H PO SCH ×2 (07:59→23:15)
[2018-10-22] MEDS: PANTOPRAZOLE 40 MG TABLET PO SCH (07:59)
[2018-10-22] MEDS: METOLAZONE 5 MG TAB PO SCH (07:59)
[2018-10-22] MEDS: ALLOPURINOL 100 MG TAB PO SCH (07:59)
[2018-10-22] MEDS: LACTULOSE 20 GM/30 ML CUP PO SCH (08:06)
[2018-10-22] MEDS: MAGNESIUM HYDROXIDE 2,400 MG/10 ML CUP PO SCH (08:07)
[2018-10-22] MEDS: INSULIN ASPART (NovoLOG) 100 UNIT/ML VIAL SQ SCH ×6 (08:09→22:26)
[2018-10-22] MEDS: SODIUM POLYSTYRENE SULFONATE 15 GM/60 ML BOTTLE PO SCH (08:13)
[2018-10-22] MEDS ORDERED: BISACODYL 10 MG SUPP RECTAL STA (10:39)
--- NOTE | 2018-10-22 11:03 | P.PN ---
Subjective Patient is seen in follow-up for acute kidney injury on chronic kidney disease. Patient was started on hemodialysis yesterday and tolerated it well. He had 2 L ultrafiltration. Hemodynamically stable. Feels better. Vital signs are stable. General: The patient appeared well nourished and normally developed. HEENT: Head exam is unremarkable. Neck is without jugular venous distension. LUNGS: Lungs are clear to auscultation and percussion. Breath sounds decreased. HEART: Rate and Rhythm are regular. First and second heart sounds normal. No murmurs, rubs or gallops. ABDOMEN: Abdominal exam reveals normal bowel sounds. Non-tender and non- distended. No evidence of peritonitis. EXTREMITITES: 2+ edema. Objective - Vital Signs Vital signs: Vital Signs Temp 97.3 F L 10/22/18 07:00 Pulse 63 10/22/18 07:00 Resp 16 10/22/18 07:45 BP 131/68 10/22/18 07:00 Pulse Ox 94 L 10/22/18 07:00 Intake & Output 10/21/18 10/22/18 10/22/18 18:59 06:59 18:59 Intake Total 590 Output Total 1475 2300 Balance -1475 -1710 Intake: Oral 590 Output: Urine 1475 2300 Other: Voiding Method Urinal Urinal # Voids 2 - Labs CBC & Chem 7: 10/22/18 06:48 10/22/18 06:48 Labs: Abnormal Lab Results - Last 24 Hours (Table) 10/21/18 10/21/18 10/21/18 Range/Units 12:01 16:51 18:10 RBC (4.30-5.90) m/uL Hgb (13.0-17.5) gm/dL Hct (39.0-53.0) % Plt Count (150-450) k/uL BUN (9-20) mg/dL Creatinine (0.66-1.25) mg/dL Glucose (74-99) mg/dL POC Glucose (mg/dL) 144 H 71 L 163 H (75-99) mg/dL Calcium (8.4-10.2) mg/dL 10/21/18 10/22/18 10/22/18 Range/Units 20:19 06:48 06:48 RBC 3.06 L (4.30-5.90) m/uL Hgb 9.2 L (13.0-17.5) gm/dL Hct 27.7 L (39.0-53.0) % Plt Count 139 L (150-450) k/uL BUN 48 H (9-20) mg/dL Creatinine 3.88 H (0.66-1.25) mg/dL Glucose 142 H (74-99) mg/dL POC Glucose (mg/dL) 125 H (75-99) mg/dL Calcium 7.9 L (8.4-10.2) mg/dL 10/22/18 Range/Units 06:50 RBC (4.30-5.90) m/uL Hgb (13.0-17.5) gm/dL Hct (39.0-53.0) % Plt Count (150-450) k/uL BUN (9-20) mg/dL Creatinine (0.66-1.25) mg/dL Glucose (74-99) mg/dL POC Glucose (mg/dL) 152 H (75-99) mg/dL Calcium (8.4-10.2) mg/dL Microbiology - Last 24 Hours (Table) 10/18/18 13:12 Blood Culture - Preliminary Blood No Growth after 72 hours Assessment and Plan Plan: Assessment: 1. Acute kidney injury mostly secondary to ATN secondary to diuresis. Now progressed to end-stage renal disease. 2. Chronic kidney disease stage IV secondary to biopsy-proven diabetic kidney disease. 3. Volume overload. 4. Insulin-dependent diabetes mellitus. 5. Hypertension with chronic any disease. Controlled. 6. Mild hyperkalemia secondary to chronic kidney disease and hyperglycemia. Better. 7. Hyperphosphatemia secondary to chronic kidney disease. Expect improvement postdialysis. 8. Anemia of chronic kidney disease. Plan: Second treatment of hemodialysis tomorrow. I will change Lasix to 80 mg orally twice daily. corporate real estate manager to help facilitate outpatient hemodialysis set up. Check iron studies. Add Aranesp.
[2018-10-22] MEDS ORDERED: DARBEPOETIN ALFA 40 MCG/0.4 ML SYRINGE SQ SCH (12:00)
[2018-10-22 12:04] LABS: Glucose,Whole Blood 95 mg/dL (75-99)
--- NOTE | 2018-10-22 12:52 | P.PN ---
Subjective Progress Note Date: 10/22/18 This is a 58-year-old male patient of Dr. Oshea, Dr. Dove and Dr. Liz past medical history of sleep apnea, chronic kidney disease stage IV , GERD, TIA, prostate cancer under the care of Dr. Jaquez, diabetes mellitus type II with diabetic neuropathy and diabetic retinopathy, hearing loss in the right ear, TIAs, hyperlipidemia, hypertension, hypothyroidism, and obstructive sleep apnea with CPAP. Regarding kidney disease, secondary to diabetic kidney disease and he does have a left upper extremity AV fistula created in July 2018. Patient has not been started on dialysis. Patient states over the last couple weeks he has had significant edema in his feet for the past year, but this is increased and has more fluid on the bottom feeling like he is walking on pads. He complains of increased edema to his arms. He complains of shortness of breath with minimal activity with dyspnea just walking to the bathroom and back. Patient states he feels that is best when he is at rest. He has had a workup with Dr. Liz with echocardiogram, EKG, carotid ultrasound and stress test which came back okay, according to the patient. Patient has been on torsemide and in the past up to 100 mg daily, but states he got dehydrated, but he continued to have edema. Regarding diabetes, patient states his hemoglobin A1c runs between 7 and 7.5 versus a remote A1c of 19.1. Patient was at nephrology office yesterday and was sent into [facility] emergency center for evaluation due to fluid overload and concern for pneumonia. He was afebrile, heart rate running between 70 and 99, blood pressure 162/76, pulse ox 96%. EKG was a sinus rhythm with no acute ST changes. Hemoglobin 10.6, white count 10.3, potassium 5.5, creatinine 3.81, BUN 46, blood sugar 197, troponin 0.012. ProBNP 1740. Chest x-ray shows no evidence of acute pulmonary disease. Elevation of right hemidiaphragm. Patient was started on IV Lasix 60 mg IV every 12 hours and consult requested with nephrology and patient admitted to the [facility] floor. Consult has subsequently been added for Dr. Levy for clearance for the AV fistula use. The patient feels that he has not had any weight loss or significant urine output with Lasix at 60 mg IV every 6 hours will be increased to 80 mg twice daily. 10/20: Patient has been on increased dose of IV Lasix at 80 mg twice daily and states he still has significant edema and has not noted any improvement. Dr. Hess is increased Lasix to 80 mg every 8 hours and added metolazone [address] Levy has given clearance for use of left arm fistula and he is to start hemodialysis tomorrow. Telemetry will be discontinued. 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 Blood pressure 115 over 64. Pulse ox is 97% on room air. Patient did use CPAP last evening. Repeat lab work shows BUN 48, creatinine 3.95, chloride is 110, sodium 140, potassium 5.1. Capillary blood glucose running 93 to 199 but drops low at presupper and at bedtime. NovoLog scheduled at supper and bedtime will be held. 10/21: Repeat hemoglobin 9.6, BUN 52, creatinine 4.3. Patient was continued on a higher dose of Lasix 80 mg every 8 hours and he states he did not have any improvement with this. He does have shortness of breath just getting to the bathroom. Weight is up from yesterday. He is complaining of constipation requesting milk of magnesia which she normally takes at home as well as lactulose. Patient is to start hemodialysis today with second treatment on Tuesday. 10/22: Patient underwent hemodialysis yesterday and 2 L were removed the patient states she did not feel any improvement following this. He has been making urine. He does not feel his lower extremity edema is improved. He continues to have shortness of breath. Patient is also on Lasix 80 mg now oral twice daily. We will ask for a post void residual. He is complaining of continued constipation despite use of milk of magnesia and lactulose. Dulcolax suppository ordered for today. Review of Systems All systems: negative Constitutional: Reports fatigue, Reports weakness, Denies chills, Denies fever, Denies poor appetite, Denies weight loss Ears, nose, mouth and throat: Denies dental pain, Denies dysphagia, Denies epistaxis, Denies headache, Denies hoarseness, Denies vertigo Cardiovascular: Reports decreased exercise tolerance, Reports dyspnea on exertion, Reports edema, Reports leg edema bilaterally, Reports orthopnea, Reports shortness of breath, Denies high blood pressure, Denies lightheadedness , Denies palpitations, Denies syncope Respiratory: Reports dyspnea, Denies cough, Denies cough with sputum, Denies excessive sputum, Denies hemoptysis, Denies wheezing Gastrointestinal: Denies abdominal pain, Denies diarrhea, Denies loss of appetite, Denies melena, Denies nausea, Denies vomiting, reports constipation Genitourinary: Denies dysuria, Denies urinary frequency Musculoskeletal: Denies frequent falls, Denies gait dysfunction, Denies muscle weakness Integumentary: Reports pruritus, Denies rash, Denies wounds Neurological: Reports weakness, Denies aphasia, Denies balance difficulties, Denies change in mentation, Denies change in speech, Denies confusion, Denies convulsions, Denies gait dysfunction, Denies head injury, Denies headaches, Denies seizures, Denies vertigo Psychiatric: Denies anxiety, Denies depression, Denies hallucinations, Denies suicidal ideation Endocrine: Reports fatigue, Denies cold intolerance, Denies excessive thirst, Denies low blood sugars Allergic/Immunologic: Denies wheezing Objective - Vital Signs Vital signs: Vital Signs Temp 97.3 F L 10/22/18 07:00 Pulse 63 10/22/18 07:00 Resp 16 10/22/18 07:00 BP 131/68 10/22/18 07:00 Pulse Ox 94 L 10/22/18 07:00 Intake & Output 10/21/18 10/22/18 10/22/18 18:59 06:59 18:59 Intake Total 590 Output Total 1475 2300 Balance -1475 -1710 Intake: Oral 590 Output: Urine 1475 2300 Other: Voiding Method Urinal # Voids 2 - Exam General appearance: cooperative, morbidly obese, no acute distress while in bed. - EENT Eyes: PERRLA ENT: hearing grossly normal, normal oropharynx, no tonsillar swelling, or mucous membranes slightly dry. - Neck Neck: no lymphadenopathy, normal ROM, no thyromegaly Carotids: bilateral: upstroke normal Thyroid: bilateral: normal size, negative: enlarged, nodule - Respiratory Respiratory: bilateral: diminished, negative: rhonchi, wheezing - Cardiovascular Rhythm: regular Heart sounds: normal: S1, S2 Abnormal Heart Sounds: no rub, no click Pedal edema 3+ bilaterally - Gastrointestinal General gastrointestinal: Morbidly obese, no hepatomegaly, normal bowel sounds, no organomegaly, soft, no tenderness - Integumentary Integumentary: normal - Neurologic Neurologic: CNII-XII intact - Musculoskeletal Musculoskeletal: gait normal, strength equal bilaterally - Psychiatric Psychiatric: A&O x's 3, appropriate affect. - Labs CBC & Chem 7: 10/22/18 06:48 10/22/18 06:48 Labs: Abnormal Lab Results - Last 24 Hours (Table) 10/21/18 10/21/18 10/21/18 Range/Units 08:17 08:17 12:01 RBC 3.26 L (4.30-5.90) m/uL Hgb 9.6 L (13.0-17.5) gm/dL Hct 30.1 L (39.0-53.0) % Plt Count (150-450) k/uL BUN 52 H (9-20) mg/dL Creatinine 4.30 H (0.66-1.25) mg/dL Glucose 179 H (74-99) mg/dL POC Glucose (mg/dL) 144 H (75-99) mg/dL Calcium 8.0 L (8.4-10.2) mg/dL Phosphorus 6.6 H (2.5-4.5) mg/dL 10/21/18 10/21/18 10/21/18 Range/Units 16:51 18:10 20:19 RBC (4.30-5.90) m/uL Hgb (13.0-17.5) gm/dL Hct (39.0-53.0) % Plt Count (150-450) k/uL BUN (9-20) mg/dL Creatinine (0.66-1.25) mg/dL Glucose (74-99) mg/dL POC Glucose (mg/dL) 71 L 163 H 125 H (75-99) mg/dL Calcium (8.4-10.2) mg/dL Phosphorus (2.5-4.5) mg/dL 10/22/18 10/22/18 10/22/18 Range/Units 06:48 06:48 06:50 RBC 3.06 L (4.30-5.90) m/uL Hgb 9.2 L (13.0-17.5) gm/dL Hct 27.7 L (39.0-53.0) % Plt Count 139 L (150-450) k/uL BUN 48 H (9-20) mg/dL Creatinine 3.88 H (0.66-1.25) mg/dL Glucose 142 H (74-99) mg/dL POC Glucose (mg/dL) 152 H (75-99) mg/dL Calcium 7.9 L (8.4-10.2) mg/dL Phosphorus (2.5-4.5) mg/dL Microbiology - Last 24 Hours (Table) 10/18/18 13:12 Blood Culture - Preliminary Blood No Growth after 72 hours Assessment and Plan Plan: 1. Acute kidney injury with chronic kidney disease stage IV secondary to diabetic kidney disease with fluid overload and possible component of acute diastolic heart failure. Consult with nephrology appreciated. Continue Lasix oral 80 mg twice daily, and Zaroxolyn. Continue Kayexalate 5 g Tuesday and Tuesday, Vascular surgery has given clearance to use AV fistula and patientto be initiated on hemodialysis yesterday and repeat on Tuesday. Monitor electrolytes and kidney function closely, avoid nephrotoxic medications. 2. Insulin-dependent diabetes type 2 uncontrolled with hyperglycemia and hypoglycemia. Continue glipizide 2.5 twice a day, Lantus 50 units at bedtime, Humalog 25 units changed to breakfast and lunch and sliding scale with Accu- Cheks, A1c pending. 3. Hypertension. Continue Lasix 80 mg IV twice daily, metoprolol 50 mg twice a day, hydralazine 100 mg at bedtime, Norvasc 105 mg at bedtime. 4. Sleep apnea. Continue CPAP. 5. GERD. Continue Protonix 40 mg 6. Neuropathy. Continue Lyrica 50 mg twice a day and [place] 7.5-325 mg every 6 hours as needed for pain. 7. Hypothyroidism. Continue levothyroxine 100 mg daily. 8. Hyperlipidemia. Continue Lipitor 40 mg daily. 9. History of prostate cancer. Received radiation therapy in September 2016, currently in remission, will continue to monitor. 10. Morbid obesity with history of lap band. 11. Anemia of chronic kidney disease. Continue ferrous sulfate 325 mg by mouth daily. 12. Generalized anxiety disorder. Continue Ativan 0.5 mg twice daily as needed. 13. Diabetes mellitus type 2 with diabetic neuropathy and diabetic retinopathy. 14. DVT prophylaxis heparin 15. GI prophylaxis Protonix 40 mg. Discharge plan: Most likely return home. Impression and plan of care have been directed as dictated by the signing physician. Laine Jones nurse practitioner acting as scribe for signing physician.
[2018-10-22 17:11] LABS: Glucose,Whole Blood 201 mg/dL (75-99)
[2018-10-22] MEDS: FUROSEMIDE 80 MG TAB PO SCH (17:17)
[2018-10-22 20:13] LABS: Glucose,Whole Blood 149 mg/dL (75-99)
[2018-10-22] MEDS: INSULIN DETEMIR (LEVEMIR) 100 UNIT/ML SYR SQ SCH (22:26)
[2018-10-22] MEDS: ATORVASTATIN 40 MG TAB PO SCH (23:15)
[2018-10-22] MEDS: amLODIPine 10 MG TAB PO SCH (23:15)
[2018-10-23] MEDS: LEVOTHYROXINE 100 MCG TAB PO SCH (06:12)
[2018-10-23 07:01] LABS: Glucose,Whole Blood 130 mg/dL (75-99)
[2018-10-23 07:44] LABS: Basophils % (A) 1 %; Eosinophils # (A) 0.2 k/uL (0-0.7); Eosinophils % (A) 3 %; HCT 28.6 % (39.0-53.0); HGB 9.1 gm/dL (13.0-17.5); Lymphocytes # (A) 1.1 k/uL (1.0-4.8); Lymphocytes % (A) 19 %; MCH 28.7 pg (25.0-35.0); MCHC 31.7 g/dL (31.0-37.0); MCV 90.5 fL (80.0-100.0); Mean Platelet Volume 7.1; Monocytes # (A) 0.3 k/uL (0-1.0); Monocytes % (A) 6 %; Neutrophils # (A) 3.9 k/uL (1.3-7.7); Neutrophils % (A) 69 %; Platelet Count 141 k/uL (150-450); RBC 3.16 m/uL (4.30-5.90); RDW 14.5 % (11.5-15.5); WBC 5.7 k/uL (3.8-10.6)
[2018-10-23 08:02] LABS: Calcium 7.9 mg/dL (8.4-10.2); Phosphorus 5.5 mg/dL (2.5-4.5); Potassium 4.6 mmol/L (3.5-5.1)
[2018-10-23] MEDS: INSULIN ASPART (NovoLOG) 100 UNIT/ML VIAL SQ SCH ×6 (08:31→21:25)
[2018-10-23] MEDS: HEPARIN SODIUM,PORCINE 5,000 UNIT/ML 1 ML VIAL SQ SCH ×2 (08:39→16:08)
[2018-10-23] MEDS: HYDROcodone/APAP 7.5-325MG 1 EACH TAB PO PRN ×3 (08:39→21:24)
[2018-10-23] MEDS: PANTOPRAZOLE 40 MG TABLET PO SCH (08:39)
[2018-10-23 09:19] LABS: Iron Saturation 13.45 (15.00-50.00)
[2018-10-23] MEDS: FUROSEMIDE 80 MG TAB PO SCH ×2 (10:38→16:08)
[2018-10-23] MEDS: FERROUS SULFATE 325 MG TAB PO SCH (10:38)
[2018-10-23] MEDS: PREGABALIN 50 MG CAP PO SCH ×2 (10:38→21:24)
[2018-10-23] MEDS: METOLAZONE 5 MG TAB PO SCH (10:38)
[2018-10-23] MEDS: ALLOPURINOL 100 MG TAB PO SCH (10:38)
[2018-10-23] MEDS: METOPROLOL SUCCINATE (ER) 50 MG TAB.ER.24H PO SCH ×2 (10:38→21:23)
[2018-10-23] MEDS: LACTULOSE 20 GM/30 ML CUP PO SCH (10:41)
[2018-10-23] MEDS: MAGNESIUM HYDROXIDE 2,400 MG/10 ML CUP PO SCH (10:45)
[2018-10-23 11:56] LABS: Glucose,Whole Blood 201 mg/dL (75-99)
--- NOTE | 2018-10-23 12:10 | P.PN ---
Subjective Progress Note Date: 10/23/18 This is a 58-year-old male patient of Dr. Oshea, Dr. Dove and Dr. Liz past medical history of sleep apnea, chronic kidney disease stage IV , GERD, TIA, prostate cancer under the care of Dr. Jaquez, diabetes mellitus type II with diabetic neuropathy and diabetic retinopathy, hearing loss in the right ear, TIAs, hyperlipidemia, hypertension, hypothyroidism, and obstructive sleep apnea with CPAP. Regarding kidney disease, secondary to diabetic kidney disease and he does have a left upper extremity AV fistula created in July 2018. Patient has not been started on dialysis. Patient states over the last couple weeks he has had significant edema in his feet for the past year, but this is increased and has more fluid on the bottom feeling like he is walking on pads. He complains of increased edema to his arms. He complains of shortness of breath with minimal activity with dyspnea just walking to the bathroom and back. Patient states he feels that is best when he is at rest. He has had a workup with Dr. Liz with echocardiogram, EKG, carotid ultrasound and stress test which came back okay, according to the patient. Patient has been on torsemide and in the past up to 100 mg daily, but states he got dehydrated, but he continued to have edema. Regarding diabetes, patient states his hemoglobin A1c runs between 7 and 7.5 versus a remote A1c of 19.1. Patient was at nephrology office yesterday and was sent into [facility] emergency center for evaluation due to fluid overload and concern for pneumonia. He was afebrile, heart rate running between 70 and 99, blood pressure 162/76, pulse ox 96%. EKG was a sinus rhythm with no acute ST changes. Hemoglobin 10.6, white count 10.3, potassium 5.5, creatinine 3.81, BUN 46, blood sugar 197, troponin 0.012. ProBNP 1740. Chest x-ray shows no evidence of acute pulmonary disease. Elevation of right hemidiaphragm. Patient was started on IV Lasix 60 mg IV every 12 hours and consult requested with nephrology and patient admitted to the [facility] floor. Consult has subsequently been added for Dr. Levy for clearance for the AV fistula use. The patient feels that he has not had any weight loss or significant urine output with Lasix at 60 mg IV every 6 hours will be increased to 80 mg twice daily. 10/20: Patient has been on increased dose of IV Lasix at 80 mg twice daily and states he still has significant edema and has not noted any improvement. Dr. Hess is increased Lasix to 80 mg every 8 hours and added metolazone [address] Levy has given clearance for use of left arm fistula and he is to start hemodialysis tomorrow. Telemetry will be discontinued. 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 Blood pressure 115 over 64. Pulse ox is 97% on room air. Patient did use CPAP last evening. Repeat lab work shows BUN 48, creatinine 3.95, chloride is 110, sodium 140, potassium 5.1. Capillary blood glucose running 93 to 199 but drops low at presupper and at bedtime. NovoLog scheduled at supper and bedtime will be held. 10/21: Repeat hemoglobin 9.6, BUN 52, creatinine 4.3. Patient was continued on a higher dose of Lasix 80 mg every 8 hours and he states he did not have any improvement with this. He does have shortness of breath just getting to the bathroom. Weight is up from yesterday. He is complaining of constipation requesting milk of magnesia which she normally takes at home as well as lactulose. Patient is to start hemodialysis today with second treatment on Tuesday. 10/22: Patient underwent hemodialysis yesterday and 2 L were removed the patient states she did not feel any improvement following this. He has been making urine. He does not feel his lower extremity edema is improved. He continues to have shortness of breath. Patient is also on Lasix 80 mg now oral twice daily. We will ask for a post void residual. He is complaining of continued constipation despite use of milk of magnesia and lactulose. Dulcolax suppository ordered for today. 10/23: Patient has been afebrile, blood pressure 132/68, heart rate running in the 60s. Pulse ox is 97% on room air. Weight is down to half a kilogram. Repeat labs reveal hemoglobin 9.1, BUN 53 and creatinine 4.07. Patient is scheduled for hemodialysis today and case management is making arrangements for outpatient. Patient is on room air and he is. Patient continues to have shortness of breath with ambulation. Breathing status is stable while at rest. Review of Systems All systems: negative Constitutional: Reports fatigue, Reports weakness, Denies chills, Denies fever, Denies poor appetite, Denies weight loss Ears, nose, mouth and throat: Denies dental pain, Denies dysphagia, Denies epistaxis, Denies headache, Denies hoarseness, Denies vertigo Cardiovascular: Reports decreased exercise tolerance, Reports dyspnea on exertion, Reports edema, Reports leg edema bilaterally, Reports orthopnea, Reports shortness of breath, Denies high blood pressure, Denies lightheadedness , Denies palpitations, Denies syncope Respiratory: Reports dyspnea, Denies cough, Denies cough with sputum, Denies excessive sputum, Denies hemoptysis, Denies wheezing, reports sleep apnea Gastrointestinal: Denies abdominal pain, Denies diarrhea, Denies loss of appetite, Denies melena, Denies nausea, Denies vomiting, reports constipation Genitourinary: Denies dysuria, Denies urinary frequency Musculoskeletal: Denies frequent falls, Denies gait dysfunction, Denies muscle weakness Integumentary: Reports pruritus, Denies rash, Denies wounds Neurological: Reports weakness, Denies aphasia, Denies balance difficulties, Denies change in mentation, Denies change in speech, Denies confusion, Denies convulsions, Denies gait dysfunction, Denies head injury, Denies headaches, Denies seizures, Denies vertigo Psychiatric: Denies anxiety, Denies depression, Denies hallucinations, Denies suicidal ideation Endocrine: Reports fatigue, Denies cold intolerance, Denies excessive thirst, Denies low blood sugars Allergic/Immunologic: Denies wheezing Objective - Vital Signs Vital signs: Vital Signs Temp 98.0 F 10/23/18 04:42 Pulse 60 10/23/18 04:42 Resp 16 10/23/18 04:42 BP 132/68 10/23/18 04:42 Pulse Ox 97 10/23/18 04:42 Intake & Output 10/22/18 10/23/18 10/23/18 18:59 06:59 18:59 Output Total 1275 Balance -1275 Weight 185.5 kg Output: Urine 1275 Other: Voiding Method Urinal # Voids 2 - Exam General appearance: cooperative, morbidly obese, no acute distress while in recliner. - EENT Eyes: PERRLA ENT: hearing grossly normal, normal oropharynx, no tonsillar swelling, or mucous membranes slightly dry. - Neck Neck: no lymphadenopathy, normal ROM, no thyromegaly Carotids: bilateral: upstroke normal Thyroid: bilateral: normal size, negative: enlarged, nodule - Respiratory Respiratory: bilateral: diminished, negative: rhonchi, wheezing - Cardiovascular Rhythm: regular Heart sounds: normal: S1, S2 Abnormal Heart Sounds: no rub, no click Pedal edema 3+ bilaterally - Gastrointestinal General gastrointestinal: Morbidly obese, no hepatomegaly, normal bowel sounds, no organomegaly, soft, no tenderness - Integumentary Integumentary: normal - Neurologic Neurologic: CNII-XII intact - Musculoskeletal Musculoskeletal: gait normal, strength equal bilaterally - Psychiatric Psychiatric: A&O x's 3, appropriate affect. - Labs CBC & Chem 7: 10/23/18 06:38 10/23/18 06:38 Labs: Abnormal Lab Results - Last 24 Hours (Table) 10/22/18 10/22/18 10/22/18 Range/Units 06:48 16:54 20:01 RBC 3.06 L (4.30-5.90) m/uL Hgb 9.2 L (13.0-17.5) gm/dL Hct 27.7 L (39.0-53.0) % Plt Count 139 L (150-450) k/uL POC Glucose (mg/dL) 201 H 149 H (75-99) mg/dL 10/23/18 10/23/18 Range/Units 06:38 06:47 RBC 3.16 L (4.30-5.90) m/uL Hgb 9.1 L (13.0-17.5) gm/dL Hct 28.6 L (39.0-53.0) % Plt Count 141 L (150-450) k/uL POC Glucose (mg/dL) 130 H (75-99) mg/dL Microbiology - Last 24 Hours (Table) 10/18/18 13:12 Blood Culture - Preliminary Blood No Growth after 96 hours Assessment and Plan Plan: 1. Acute kidney injury with chronic kidney disease stage IV secondary to diabetic kidney disease with fluid overload and possible component of acute diastolic heart failure. Consult with nephrology appreciated. Continue Lasix oral 80 mg twice daily, and Zaroxolyn. Continue Kayexalate 5 g Tuesday and Tuesday, Vascular surgery has given clearance to use AV fistula and patientto be initiated on hemodialysis today. Monitor electrolytes and kidney function closely, avoid nephrotoxic medications. 2. Insulin-dependent diabetes type 2 uncontrolled with hyperglycemia and hypoglycemia. Continue glipizide 2.5 twice a day, Lantus 50 units at bedtime, Humalog 25 units changed to breakfast and lunch and sliding scale with Accu- Cheks, A1c pending. 3. Hypertension. Continue Lasix 80 mg IV twice daily, metoprolol 50 mg twice a day, hydralazine 100 mg at bedtime, Norvasc 105 mg at bedtime. 4. Sleep apnea. Continue CPAP. 5. GERD. Continue Protonix 40 mg 6. Neuropathy. Continue Lyrica 50 mg twice a day and [place] 7.5-325 mg every 6 hours as needed for pain. 7. Hypothyroidism. Continue levothyroxine 100 mg daily. 8. Hyperlipidemia. Continue Lipitor 40 mg daily. 9. History of prostate cancer. Received radiation therapy in September 2016, currently in remission, will continue to monitor. 10. Morbid obesity with history of lap band. 11. Anemia of chronic kidney disease. Continue ferrous sulfate 325 mg by mouth daily. 12. Generalized anxiety disorder. Continue Ativan 0.5 mg twice daily as needed. 13. Diabetes mellitus type 2 with diabetic neuropathy and diabetic retinopathy. 14. DVT prophylaxis heparin 15. GI prophylaxis Protonix 40 mg. Discharge plan: Most likely return home on Tuesday. Impression and plan of care have been directed as dictated by the signing physician. Laine Jones nurse practitioner acting as scribe for signing physician.
--- NOTE | 2018-10-23 16:18 | PN ---
PROGRESS NOTE Patient is seen for followup for end-stage renal disease. He was started on dialysis on Tuesday. The patient will have a second treatment today. He is currently in the process of being set up as outpatient for hemodialysis at the [facility]. On examination this morning, patient states his breathing is slightly better. Blood pressure was 151/78, heart rate 64 per minute. He is afebrile. EXAMINATION OF THE HEART: S1, S2. EXAMINATION OF LUNGS: Bilateral breath sounds are heard. Decreased breath sounds at the bases. ABDOMEN: Soft, morbidly obese. Examination of lower extremities shows edema 2 to 3+ bilaterally. ORCHESTRA CONDUCTOR exam is grossly intact. Labs show sodium 139, potassium 4.6, BUN 53, serum creatinine 4.07. ASSESSMENT: 1. End-stage renal disease, on hemodialysis started this admission. The patient will have his second treatment today. He will be scheduled for dialysis again tomorrow, and we need to arrange for chair time as outpatient at the [facility]. Patient prefers Tuesday, Tuesday, Tuesday schedule. 2. Volume overload, slowly improving. 3. Anemia of chronic disease. No active bleeding noted. Maintained on Aranesp. 4. Dyslipidemia. 5. Hypertension, partly volume-sensitive, currently improved. PLAN: Hemodialysis again tomorrow. I will discontinue the Kayexalate. MMODL / IJN: [id number] /
[2018-10-23 17:14] LABS: Glucose,Whole Blood 197 mg/dL (75-99)
[2018-10-23 20:02] LABS: Glucose,Whole Blood 110 mg/dL (75-99)
[2018-10-23] MEDS: ATORVASTATIN 40 MG TAB PO SCH (21:23)
[2018-10-23] MEDS: amLODIPine 10 MG TAB PO SCH (21:24)
[2018-10-23] MEDS: INSULIN DETEMIR (LEVEMIR) 100 UNIT/ML SYR SQ SCH (21:40)
[2018-10-24] MEDS: HEPARIN SODIUM,PORCINE 5,000 UNIT/ML 1 ML VIAL SQ SCH ×2 (00:02→11:17)
[2018-10-24 00:54] VITALS: TEMP 98.2
[2018-10-24] MEDS: LEVOTHYROXINE 100 MCG TAB PO SCH (05:27)
[2018-10-24] MEDS: HYDROcodone/APAP 7.5-325MG 1 EACH TAB PO PRN ×2 (05:27→11:12)
[2018-10-24 07:07] LABS: Glucose,Whole Blood 165 mg/dL (75-99)
[2018-10-24 07:15] VITALS: BP 135/70; PULSE 62; RESP 18
[2018-10-24] MEDS: FUROSEMIDE 80 MG TAB PO SCH (11:10)
[2018-10-24] MEDS: FERROUS SULFATE 325 MG TAB PO SCH (11:10)
[2018-10-24] MEDS: ALLOPURINOL 100 MG TAB PO SCH (11:10)
[2018-10-24] MEDS: METOPROLOL SUCCINATE (ER) 50 MG TAB.ER.24H PO SCH (11:11)
[2018-10-24] MEDS: METOLAZONE 5 MG TAB PO SCH (11:11)
[2018-10-24] MEDS: PREGABALIN 50 MG CAP PO SCH (11:11)
[2018-10-24] MEDS: LACTULOSE 20 GM/30 ML CUP PO SCH ×2 (11:12→11:17)
[2018-10-24] MEDS: PANTOPRAZOLE 40 MG TABLET PO SCH (11:12)
[2018-10-24] MEDS: INSULIN ASPART (NovoLOG) 100 UNIT/ML VIAL SQ SCH ×4 (11:13→12:55)
[2018-10-24] MEDS: MAGNESIUM HYDROXIDE 2,400 MG/10 ML CUP PO SCH (11:14)
--- NOTE | 2018-10-24 11:57 | US ---
EXAMINATION TYPE: US venous doppler duplex LE DATE OF EXAM: 10/24/2018 11:47 AM COMPARISON: Right lower extremity venous ultrasound August 07, 2014 CLINICAL HISTORY: edema and pain. bilateral calf tenderness per patient. No redness. No hx of blood clots. On heparin shots. SIDE PERFORMED: Bilateral TECHNIQUE: The lower extremity deep venous system is examined utilizing real time linear array sonog shweta with graded compression, doppler sonography and color-flow sonography. VESSELS IMAGED: External Iliac Vein (EIV) Common Femoral Vein Deep Femoral Vein Greater Saphenous Vein * Femoral Vein Popliteal Vein Small Saphenous Vein * Proximal Calf Veins (* superficial vessels) Extremely limited exam with suboptimal visualization of vessels due to patient body habitus Right Leg: Appears negative for acute DVT Left Leg: Appears negative for acute DVT Grayscale, color doppler, spectral doppler imaging performed of the deep veins of the bilateral low er extremities. There is normal flow, compressibility, vascular waveforms. IMPRESSION: Suboptimal study without convincing evidence of acute DVT in either lower extremity on images saved.
[2018-10-24 12:43] LABS: Glucose,Whole Blood 189 mg/dL (75-99)
--- NOTE | 2018-10-24 19:54 | PN ---
PROGRESS NOTE Patient is seen for followup for end-stage renal disease. Patient was dialyzed this morning. He had about 2 liters of fluid removed. He states he feels well. On examination this morning, blood pressure was 135/70, heart rate 62 per minute. He is afebrile. Examination shows decreasing edema in the lower extremities. Abdomen is soft, morbidly obese. Breath sounds are heard bilaterally. ASSESSMENT: 1. End-stage renal disease, currently started on hemodialysis this admission. 2. Volume overload, slowly improving. 3. Anemia of chronic disease. 4. Morbid obesity. PLAN: Patient can be discharged and follow up as outpatient for hemodialysis. MMODL / IJN: [id number] /
--- NOTE | 2018-10-25 14:53 | P.DS ---
Providers Date of admission: 10/19/18 10:53 Expected date of discharge: 10/24/18 Attending physician: Hesham Evans Consults: 10/18/18 15:59 Consult Physician Routine Consulting Provider: Chacho Dove Consult Reason/Comments: Chronic kidney disease fluid overload Do you want consulting provider notified?: Yes 10/19/18 11:12 Consult Physician Stat Consulting Provider: Walter Levy Consult Reason/Comments: Clearance for use of AV fistula for hemodialysis Do you want consulting provider notified?: Yes Primary care physician: Hayes Oshea [facility] Course: This is a 58-year-old male patient of Dr. Oshea, Dr. Dove and Dr. Liz past medical history of sleep apnea, chronic kidney disease stage IV , GERD, TIA, prostate cancer under the care of Dr. Jaquez, diabetes mellitus type II with diabetic neuropathy and diabetic retinopathy, hearing loss in the right ear, TIAs, hyperlipidemia, hypertension, hypothyroidism, and obstructive sleep apnea with CPAP. Regarding kidney disease, secondary to diabetic kidney disease and he does have a left upper extremity AV fistula created in July 2018. Patient has not been started on dialysis. Patient states over the last couple weeks he has had significant edema in his feet for the past year, but this is increased and has more fluid on the bottom feeling like he is walking on pads. He complains of increased edema to his arms. He complains of shortness of breath with minimal activity with dyspnea just walking to the bathroom and back. Patient states he feels that is best when he is at rest. He has had a workup with Dr. Liz with echocardiogram, EKG, carotid ultrasound and stress test which came back okay, according to the patient. Patient has been on torsemide and in the past up to 100 mg daily, but states he got dehydrated, but he continued to have edema. Regarding diabetes, patient states his hemoglobin A1c runs between 7 and 7.5 versus a remote A1c of 19.1. Patient was at nephrology office yesterday and was sent into [facility] emergency center for evaluation due to fluid overload and concern for pneumonia. He was afebrile, heart rate running between 70 and 99, blood pressure 162/76, pulse ox 96%. EKG was a sinus rhythm with no acute ST changes. Hemoglobin 10.6, white count 10.3, potassium 5.5, creatinine 3.81, BUN 46, blood sugar 197, troponin 0.012. ProBNP 1740. Chest x-ray shows no evidence of acute pulmonary disease. Elevation of right hemidiaphragm. Patient was started on IV Lasix 60 mg IV every 12 hours and consult requested with nephrology and patient admitted to the [facility] floor. Consult has subsequently been added for Dr. Levy for clearance for the AV fistula use. The patient feels that he has not had any weight loss or significant urine output with Lasix at 60 mg IV every 6 hours will be increased to 80 mg twice daily. 10/20: Patient has been on increased dose of IV Lasix at 80 mg twice daily and states he still has significant edema and has not noted any improvement. Dr. Hess is increased Lasix to 80 mg every 8 hours and added metolazone [address] Levy has given clearance for use of left arm fistula and he is to start hemodialysis tomorrow. Telemetry will be discontinued. He has been afebrile, heart rate running in the 60s, cardiac cath tech sinus rhythm. Blood pressure 115 over 64. Pulse ox is 97% on room air. Patient did use CPAP last evening. Repeat lab work shows BUN 48, creatinine 3.95, chloride is 110, sodium 140, potassium 5.1. Capillary blood glucose running 93 to 199 but drops low at presupper and at bedtime. NovoLog scheduled at supper and bedtime will be held. 10/21: Repeat hemoglobin 9.6, BUN 52, creatinine 4.3. Patient was continued on a higher dose of Lasix 80 mg every 8 hours and he states he did not have any improvement with this. He does have shortness of breath just getting to the bathroom. Weight is up from yesterday. He is complaining of constipation requesting milk of magnesia which she normally takes at home as well as lactulose. Patient is to start hemodialysis today with second treatment on Tuesday. 10/22: Patient underwent hemodialysis yesterday and 2 L were removed the patient states she did not feel any improvement following this. He has been making urine. He does not feel his lower extremity edema is improved. He continues to have shortness of breath. Patient is also on Lasix 80 mg now oral twice daily. We will ask for a post void residual. He is complaining of continued constipation despite use of milk of magnesia and lactulose. Dulcolax suppository ordered for today. 10/23: Patient has been afebrile, blood pressure 132/68, heart rate running in the 60s. Pulse ox is 97% on room air. Weight is down to half a kilogram. Repeat labs reveal hemoglobin 9.1, BUN 53 and creatinine 4.07. Patient is scheduled for hemodialysis today and case management is making arrangements for outpatient. Patient is on room air and he is. Patient continues to have shortness of breath with ambulation. Breathing status is stable while at rest. 10/24: Patient is scheduled for hemodialysis today. mutual fund manager has arranged for outpatient hemodialysis on Tuesday and Tuesday. Discussed neuropathy with the patient and he would to increase Lyrica to 3 times daily. Patient has enough of his pills at home to do this until he can follow-up with Dr. Oshea. Patient will be discharged home today once all arrangements are completed and he has completed hemodialysis. Patient does have continued lower extremity edema but he has pain in the back of the calves bilaterally which she states he has had for half-way. We have obtained ultrasound bilaterally which is negative for DVT. Patient is discharged in stable condition. Discharge diagnoses: 1. Acute kidney injury with chronic kidney disease stage IV secondary to diabetic kidney disease with fluid overload and component of acute diastolic heart failure. 2. Insulin-dependent diabetes type 2 uncontrolled with hyperglycemia and hypoglycemia. 3. Hypertension. 4. Sleep apnea. 5. GERD. 6. Diabetic neuropathy 7. Hypothyroidism. 8. Hyperlipidemia. 9. History of prostate cancer. 10. Morbid obesity with history of lap band. 11. Anemia of chronic kidney disease. 12. Generalized anxiety disorder. 13. Diabetes mellitus type 2 with diabetic neuropathy and diabetic retinopathy. Discharge plan: home Impression and plan of care have been directed as dictated by the signing physician. Laine Jones nurse practitioner acting as scribe for signing physician. Patient Condition at Discharge: Good Plan - Discharge Summary Discharge Rx Participant: No New Discharge Prescriptions: New Furosemide [Lasix] 80 mg PO BID@0900,1600 #60 tab glipiZIDE [Glucotrol] 2.5 mg PO AC-BID #60 tab Lactulose [Cephulac] 30 gm PO DAILY #0 ml Magnesium Hydroxide [Milk of Magnesia Concentrate] 3,600 mg PO DAILY ml Metolazone [Zaroxolyn] 5 mg PO DAILY #30 tab Continue Atorvastatin [Lipitor] 40 mg PO HS HYDROcodone/APAP 7.5-325MG [[place] 7.5-325] 1 tab PO QID PRN PRN Reason: Pain Ferrous Sulfate [Feosol] 325 mg PO DAILY LORazepam [Ativan] 0.5 mg PO BID PRN PRN Reason: Anxiety Febuxostat [Uloric] 40 mg PO DAILY Levothyroxine Sodium 100 mcg PO DAILY Metoprolol Succinate (ER) [Toprol XL] 50 mg PO BID Insulin Aspart [NovoLOG] 25 - 30 units SQ ACHS Insulin Glargine [Lantus] 50 unit SQ HS Changed amLODIPine BESYLATE 10 mg PO HS #0 hydrALAZINE HCL [Apresoline] 50 mg PO HS #0 Pregabalin [Lyrica] 50 mg PO TID #0 Discontinued glipiZIDE XL [Glucotrol XL] 5 mg PO DAILY Torsemide [Demadex] 40 mg PO DAILY Sodium Polystyrene Sulfonate [Kayexalate] 5 gm PO SUWE Discharge Medication List Atorvastatin [Lipitor] 40 mg PO HS 08/07/14 [History] HYDROcodone/APAP 7.5-325MG [[place] 7.5-325] 1 tab PO QID PRN 11/09/16 [History] Ferrous Sulfate [Feosol] 325 mg PO DAILY 02/18/17 [History] LORazepam [Ativan] 0.5 mg PO BID PRN 03/03/17 [History] Febuxostat [Uloric] 40 mg PO DAILY 07/06/17 [History] Levothyroxine Sodium 100 mcg PO DAILY 07/06/17 [History] Metoprolol Succinate (ER) [Toprol XL] 50 mg PO BID 07/06/17 [History] Insulin Aspart [NovoLOG] 25 - 30 units SQ ACHS 01/17/18 [History] Insulin Glargine [Lantus] 50 unit SQ HS 01/17/18 [History] Furosemide [Lasix] 80 mg PO BID@0900,1600 #60 tab 10/24/18 [Rx] Lactulose [Cephulac] 30 gm PO DAILY #0 ml 10/24/18 [Rx] Magnesium Hydroxide [Milk of Magnesia Concentrate] 3,600 mg PO DAILY ml [Rx] Metolazone [Zaroxolyn] 5 mg PO DAILY #30 tab 10/24/18 [Rx] Pregabalin [Lyrica] 50 mg PO TID #0 10/24/18 [Rx] amLODIPine BESYLATE 10 mg PO HS #0 10/24/18 [Rx] glipiZIDE [Glucotrol] 2.5 mg PO AC-BID #60 tab 10/24/18 [Rx] hydrALAZINE HCL [Apresoline] 50 mg PO HS #0 10/24/18 [Rx] Follow up Appointment(s)/Referral(s): Hayes Oshea MD [Primary Care Provider] - 1-2 days (Office closed Please call to make appointment) Chacho Dove DO [STAFF PHYSICIAN] - 10 Days (Patient will call for follow up appointment) Patient Instructions/Handouts: Acute Kidney Injury (DC), Dialysis Diet (DC), Hemodialysis (DC) Activity/Diet/Wound Care/Special Instructions: Hemodialysis schedule is Tuesday/Tuesday/Tuesday at 4:15p. Please arrive at [facility] tomorrow at 4p. Address: [address] [place] [address]. . Discharge Disposition: HOME SELF-CARE
== END 2018-10-24 13:36 | disposition home or self-care (01) | DRG 291 ==
LOC: EC 12:18 → 1SOBS 15:57 → OBSVTOIN 10-19 10:53 → 4SSUR 10-19 16:32
PROVIDERS: ADMIT Internal Medicine; ATTEND Internal Medicine
PROC: 5A1D70Z Performance of Urinary Filtration, Intermittent, Less than 6 Hours Per Day (ICD-10-PCS; principal; 2018-10-21)
DX: I13.2 Hypertensive heart and chronic kidney disease with heart failure and with stage 5 chronic kidney disease, or end stage renal disease (principal); N17.0 Acute kidney failure with tubular necrosis; I50.31 Acute diastolic (congestive) heart failure; N18.6 End stage renal disease; Z68.43 Body mass index [BMI] 50.0-59.9, adult; T50.2X5A Adverse effect of carbonic-anhydrase inhibitors, benzothiadiazides and other diuretics, initial encounter; D63.1 Anemia in chronic kidney disease; E03.9 Hypothyroidism, unspecified; E11.22 Type 2 diabetes mellitus with diabetic chronic kidney disease; E11.319 Type 2 diabetes mellitus with unspecified diabetic retinopathy without macular edema; E11.40 Type 2 diabetes mellitus with diabetic neuropathy, unspecified; E11.65 Type 2 diabetes mellitus with hyperglycemia; E66.01 Morbid (severe) obesity due to excess calories; E78.5 Hyperlipidemia, unspecified; E83.39 Other disorders of phosphorus metabolism; E86.0 Dehydration; E87.5 Hyperkalemia; F41.1 Generalized anxiety disorder; G47.33 Obstructive sleep apnea (adult) (pediatric); Z99.89 Dependence on other enabling machines and devices; H91.91 Unspecified hearing loss, right ear; K21.9 Gastro-esophageal reflux disease without esophagitis; K59.00 Constipation, unspecified; Z79.4 Long term (current) use of insulin; Z79.890 Hormone replacement therapy; Z79.899 Other long term (current) drug therapy; Z82.0 Family history of epilepsy and other diseases of the nervous system; Z82.3 Family history of stroke; Z82.49 Family history of ischemic heart disease and other diseases of the circulatory system; Z83.3 Family history of diabetes mellitus; Z85.46 Personal history of malignant neoplasm of prostate; Z86.73 Personal history of transient ischemic attack (TIA), and cerebral infarction without residual deficits; Z87.891 Personal history of nicotine dependence; Z92.3 Personal history of irradiation; Z98.84 Bariatric surgery status; Z99.2 Dependence on renal dialysis; F40.240 Claustrophobia; Z90.49 Acquired absence of other specified parts of digestive tract; D50.9 Iron deficiency anemia, unspecified
CPT/HCPCS: 36415; 71046; 80048; 80053; 80074; 82550; 82553; 82728; 83036; 83540; 83550; 83735; 83880; 84100; 84484; 85025; 85610; 85730; 87040; 90935; 93005; 93970; 96374; 99285

== ENCOUNTER 2019-06-03 10:19 | Emergency (ER) | payer MEDICARE, BC ==
[2019-06-03 10:39] VITALS: BP 142/74; PULSE 88; RESP 16; TEMP 98.4
[2019-06-03] MEDS ORDERED: DIPH,PERTUS(ACELL)TETVAC-LF 0.5 ML VIAL IM ONE (11:00)
--- NOTE | 2019-06-03 11:02 | ED ---
Lower Extremity Injury HPI - General Chief Complaint: Extremity Injury, Lower Stated Complaint: Nail puncture to foot Time Seen by Provider: 06/03/19 10:39 Source: patient, RN notes reviewed Mode of arrival: ambulatory Limitations: no limitations - History of Present Illness Initial Comments: 58-year-old male presents emergency Department with chief complaint of left foot puncture wound. Patient states that he stepped on a screw in which she did not know initially did this through the shoe. Patient states that he took up she noticed bleeding. Patient states that he checked issue today and found burning screwshoe. Patient states that he has neuropathy so did not know this happened. He is unsure when his last tetanus was. He did thoroughly clean the wound and place and antiseptic Band-Aid on it. - Related Data Home Medications Medication Instructions Recorded Confirmed Atorvastatin [Lipitor] 40 mg PO HS 08/07/14 10/18/18 HYDROcodone/APAP 7.5-325MG [[place] 1 tab PO QID PRN 11/09/16 10/18/18 7.5-325] Ferrous Sulfate [Feosol] 325 mg PO DAILY 02/18/17 10/18/18 LORazepam [Ativan] 0.5 mg PO BID PRN 03/03/17 10/18/18 Febuxostat [Uloric] 40 mg PO DAILY 07/06/17 10/18/18 Levothyroxine Sodium 100 mcg PO DAILY 07/06/17 10/18/18 Metoprolol Succinate (ER) [Toprol 50 mg PO BID 07/06/17 10/18/18 XL] Insulin Aspart [NovoLOG] 25 - 30 units SQ ACHS 01/17/18 10/18/18 Insulin Glargine [Lantus] 50 unit SQ HS 01/17/18 10/18/18 Previous Rx's Medication Instructions Recorded Furosemide [Lasix] 80 mg PO BID@0900,1600 #60 tab 10/24/18 Lactulose [Cephulac] 30 gm PO DAILY #0 ml 10/24/18 Magnesium Hydroxide [Milk of 3,600 mg PO DAILY ml 10/24/18 Magnesia Concentrate] Metolazone [Zaroxolyn] 5 mg PO DAILY #30 tab 10/24/18 Pregabalin [Lyrica] 50 mg PO TID #0 10/24/18 amLODIPine BESYLATE 10 mg PO HS #0 10/24/18 glipiZIDE [Glucotrol] 2.5 mg PO AC-BID #60 tab 10/24/18 hydrALAZINE HCL [Apresoline] 50 mg PO HS #0 10/24/18 Ciprofloxacin HCl [Cipro] 250 mg PO Q12HR #14 tablet 06/03/19 Allergies Allergy/AdvReac Type Severity Reaction Status Date / Time No Known Allergies Allergy Verified 06/03/19 10:47 Review of Systems ROS Statement: Those systems with pertinent positive or pertinent negative responses have been documented in the HPI. ROS Other: All systems not noted in ROS Statement are negative. Past Medical History Past Medical History: Cancer, Heart Failure, CVA/TIA, Diabetes Mellitus, GERD/Reflux, Hyperlipidemia, Hypertension, Renal Disease, Sleep Apnea/CPAP/BIPAP, Syncope, Thyroid Disorder Additional Past Medical History / Comment(s): neuropathy, prostate cancer 44 radiation tx, CKD stage lV, hypothyroidism, tia x3,iron deficiency anemia has had iron infusions, and po iron supplement, USES CPAP MACHINE, had pne vaccine 3-4 years ago,bid 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 History of Any Multi-Drug Resistant Organisms: None Reported Past Surgical History: Adenoidectomy, Bariatric Surgery, Cholecystectomy, Heart Catheterization, Tonsillectomy Additional Past Surgical History / Comment(s): FX of right ankle repair pins / plate, fistual lt arm jul 2018 has'nt started dialysis, lt shoulder sx (d/t separation) Past Anesthesia/Blood Transfusion Reactions: Motion Sickness Additional Past Anesthesia/Blood Transfusion Reaction / Comment(s): CLAUSTERPHOBIA Past Psychological History: Anxiety Smoking Status: Former smoker - Past Family History Mother History Unknown: Yes Family Medical History: Coronary Artery Disease (CAD), Diabetes Mellitus, Myocardial Infarction (ME) Additional Family Medical History / Comment(s): Mother at age 58 from multiple sclerosis Father Family Medical History: CVA/TIA, Myocardial Infarction (ME) Additional Family Medical History / Comment(s): Father had history of ME and CVA followed by a second ME and CVA and at age 65. Brother(s) Additional Family Medical History / Comment(s): Patient has 2 brothers and 1 sister with no major medical problems. He denies any renal disease in his family members. General Exam Limitations: no limitations General appearance: alert, in no apparent distress Head exam: Present: atraumatic, normocephalic, normal inspection Respiratory exam: Present: normal lung sounds bilaterally. Absent: respiratory distress, wheezes, rales, rhonchi, stridor Cardiovascular Exam: Present: regular rate, normal rhythm, normal heart sounds. Absent: systolic murmur, diastolic murmur, rubs, gallop, clicks Extremities exam: Present: other (Left foot there is a puncture wound just proximal second third digit there is no erythema thoroughly cleaned, neurovascular intact and nontender) Course Vital Signs 06/03/19 10:37 Temperature 98.4 F Pulse Rate 88 Respiratory 16 Rate Blood Pressure 142/74 O2 Sat by Pulse 97 Oximetry Medical Decision Making - Medical Decision Making 58-year-old male presented for left foot puncture wound. Patient is a diabetic his tetanus is updated. Patient was placed on ciprofloxacin 250 has he is on dialysis. Patient follow-up with primary care physician return for any worsening symptoms. Disposition Clinical Impression: Puncture wound of foot, left Disposition: HOME SELF-CARE Condition: Stable Instructions (If sedation given, give patient instructions): Puncture Wound (ED) Additional Instructions: Please return to the Emergency Department if symptoms worsen or any other concerns. Prescriptions: Ciprofloxacin HCl [Cipro] 250 mg PO Q12HR #14 tablet Is patient prescribed a controlled substance at d/c from ED?: No Referrals: Hayes Oshea MD [Primary Care Provider] - 1-2 days Time of Disposition: 11:02
== END 2019-06-03 11:58 | disposition home or self-care (01) ==
LOC: EC 10:19
DX: S91.135A Puncture wound without foreign body of left lesser toe(s) without damage to nail, initial encounter (principal); I13.0 Hypertensive heart and chronic kidney disease with heart failure and stage 1 through stage 4 chronic kidney disease, or unspecified chronic kidney disease; I50.9 Heart failure, unspecified; E11.22 Type 2 diabetes mellitus with diabetic chronic kidney disease; E11.40 Type 2 diabetes mellitus with diabetic neuropathy, unspecified; E78.5 Hyperlipidemia, unspecified; N18.4 Chronic kidney disease, stage 4 (severe); G47.30 Sleep apnea, unspecified; E03.9 Hypothyroidism, unspecified; D63.1 Anemia in chronic kidney disease; D50.9 Iron deficiency anemia, unspecified; Z87.891 Personal history of nicotine dependence; Z79.4 Long term (current) use of insulin; Z79.890 Hormone replacement therapy; Z79.899 Other long term (current) drug therapy; Z99.89 Dependence on other enabling machines and devices; Z85.46 Personal history of malignant neoplasm of prostate; Z92.3 Personal history of irradiation; Z99.2 Dependence on renal dialysis; Z23 Encounter for immunization; W22.8XXA Striking against or struck by other objects, initial encounter
CPT/HCPCS: 90471; 90715; 99283

== ENCOUNTER → 2019-09-10 | Outpatient (CLI) | payer MEDICARE, BC ==
[2019-09-10 13:57] LABS: Basophils % (A) 0 %; Eosinophils # (A) 0.1 k/uL (0-0.7); Eosinophils % (A) 1 %; HCT 30.1 % (39.0-53.0); Lymphocytes # (A) 0.9 k/uL (1.0-4.8); Lymphocytes % (A) 12 %; MCH 32.4 pg (25.0-35.0); MCHC 33.2 g/dL (31.0-37.0); MCV 97.6 fL (80.0-100.0); Mean Platelet Volume 7.2; Monocytes # (A) 0.3 k/uL (0-1.0); Monocytes % (A) 4 %; Neutrophils # (A) 6.4 k/uL (1.3-7.7); Neutrophils % (A) 80 %; Platelet Count 158 k/uL (150-450); RBC 3.09 m/uL (4.30-5.90); RDW 15.3 % (11.5-15.5); WBC 7.9 k/uL (3.8-10.6)
[2019-09-10 14:04] LABS: Calcium 9.3 mg/dL (8.4-10.2)
== END | disposition home or self-care (01) ==
LOC: LABPAT 11:31
PROVIDERS: ATTEND Urology
DX: Z01.812 Encounter for preprocedural laboratory examination (principal); Z01.818 Encounter for other preprocedural examination; R31.0 Gross hematuria; N28.9 Disorder of kidney and ureter, unspecified; I10 Essential (primary) hypertension
CPT/HCPCS: 36415; 80048; 85025; 93005

== ENCOUNTER 2019-09-11 10:52 | Day surgery (SDC) | payer MEDICARE, BC ==
[2019-09-10 13:54] VITALS: BMI 50.9
--- NOTE | 2019-09-10 16:52 | P.GSHP ---
History of Present Illness H&P Date: 09/10/19 Chief Complaint: Gross hematuria The patient is a 59-year-old white male with a history of prostate cancer, which was treated with radiation therapy in 2017. His PSA level remains undetectable. However, he has experienced intermittent gross hematuria with clots since 07/12/2019. Cystoscopy shows edema cephalad to the right ureteral orifice. Urine cytology shows atypical cells. He has recently experienced difficulty voiding because of the size of the clots, and he thus comes for cystoscopy, evacuation of clots, and fulguration of bleeders. - Constitutional Constitutional: Denies chills, Denies fever - Genitourinary (Female) Genitourinary: Reports dysuria, Denies flank pain Past Medical History Past Medical History: Cancer, Heart Failure, CVA/TIA, Diabetes Mellitus, GERD/Reflux, Hyperlipidemia, Hypertension, Renal Disease, Sleep Apnea/CPAP/BIPAP, Syncope, Thyroid Disorder Additional Past Medical History / Comment(s): neuropathy lower legs & feet, Hx prostate cancer with 44 radiation tx, Kidney Disease- receives Hemodialysis [id number]- has fistula in left arm., hypothyroidism, tia x3 (discovered on MRI)., Iron deficiency anemia -receives iron with dialysis., Uses C-Pap machine., Gout, Constipation, Deaf Right ear (sudden hearing loss)., states blood in urine and clots since June., Pt has Lap Band-states 5cc fluid-follows with Dr. Hopson. History of Any Multi-Drug Resistant Organisms: None Reported Past Surgical History: Adenoidectomy, Bariatric Surgery, Cholecystectomy, Heart Catheterization, Tonsillectomy Additional Past Surgical History / Comment(s): FX of right ankle repair pins / plate, fistua lt arm jul 2018 ., lt shoulder sx (d/t separation), Lap Band (Dr. Hopson) Past Anesthesia/Blood Transfusion Reactions: No Reported Reaction, Motion Sickness Additional Past Anesthesia/Blood Transfusion Reaction / Comment(s): CLAUSTERPHOBIA Past Psychological History: Anxiety, Depression Additional Psychological History / Comment(s): . Smoking Status: Former smoker Past Alcohol Use History: Rare Additional Past Alcohol Use History / Comment(s): Patient was a smoker of 3 packs per day or more for 35 years and quit in 2006. Past Drug Use History: None Reported - Past Family History Mother History Unknown: Yes Family Medical History: Coronary Artery Disease (CAD), Diabetes Mellitus, Myocardial Infarction (IA) Additional Family Medical History / Comment(s): Mother at age 58 from multiple sclerosis Father Family Medical History: CVA/TIA, Myocardial Infarction (IA) Additional Family Medical History / Comment(s): Father had history of IA and CVA followed by a second IA and CVA and at age 65. Brother(s) Additional Family Medical History / Comment(s): . Medications and Allergies Home Medications Medication Instructions Recorded Confirmed Type Atorvastatin [Lipitor] 40 mg PO HS 08/07/14 09/10/19 History HYDROcodone/APAP 7.5-325MG [[place] 1 tab PO QID PRN 11/09/16 09/10/19 History 7.5-325] Febuxostat [Uloric] 40 mg PO DAILY 07/06/17 09/10/19 History Levothyroxine Sodium 100 mcg PO DAILY 07/06/17 09/10/19 History Insulin Aspart [NovoLOG] 25 units SQ ACHS 01/17/18 09/10/19 History Lactulose [Cephulac] 30 gm PO DAILY #0 ml 10/24/18 09/10/19 Rx Insulin Detemir (Levemir) [Levemir] 55 unit SQ HS 06/03/19 09/10/19 History Pregabalin [Lyrica] 50 mg PO DAILY 06/03/19 09/10/19 History Calcium Acetate [Phoslo] 1,334 mg PO TID-W/MEALS 09/10/19 09/10/19 History Torsemide [Demadex] 40 mg PO DAILY 09/10/19 09/10/19 History Vitamin D, Iron & Renal Vit 1 dose DIRECTED 09/10/19 History Allergies Allergy/AdvReac Type Severity Reaction Status Date / Time No Known Allergies Allergy Verified 09/10/19 13:08 Surgical - Exam - General well developed, well nourished, no distress - Respiratory normal respiratory effort - Abdomen Abdomen: soft, non tender, no guarding, no rigid, no rebound - Genitourinary normal penis with no external lesions, testicles non-tender right: scrotal mass/hydrocele (Large right hydrocele) - Rectum Rectum: normal sphincter tone, no masses, other (Prostate small and smooth) - Psychiatric oriented to time, oriented to person, oriented to place, speech is normal, memory intact Assessment and Plan (1) Gross hematuria Status: Acute Code(s): R31.0 - GROSS HEMATURIA SNOMED Code(s): 568173072 Plan: Cystoscopy, evacuation of clot, possible bladder biopsy, fulguration of bleeders. The procedure apparently reviewed in detail with the patient and his . They understand risks to include anesthesia, bleeding, infection, and persistent hematuria.
[~2019-09-11 10:52] MED LIST changes: -BUPIVACAINE (PF) 0.5% 30 ML VIAL SQ ONE; -DEXAMETHASONE SOD PHOSPHATE 10 MG/ML 1 ML VIAL IV ONE; -KETAMINE 10 MG/ML 20 ML VIAL ONE; -LACTATED RINGERS 1,000 ML IV SCH; -LIDOCAINE 1% 20 ML VIAL (10MG/ML) FOR IV START INTRADERMA PRN; -LIDOCAINE 2% INJ 20 MG/ML SQ ONE; -MIDAZOLAM 2 MG/2 ML VIAL IV PRN; -MIDAZOLAM 2 MG/2 ML VIAL ONE; -MORPHINE SULFATE 4 MG/ML SYRINGE IVP PRN; -ONDANSETRON 4 MG/2 ML VIAL IVP ONE; -PROPOFOL 10 MG/ML 20 ML VIAL IV ONE; -SCOPOLAMINE 1.5MG/72HR PATCH TRANSDERM ONE; +ceFAZolin 3 GM in SODIUM CHLORIDE 0.9% 100 ML IVPB ONE; -ceFAZolin IN SWFI 2 GM/20 ML SYRINGE IVP ONE; -fentaNYL (PF) 50 MCG/ML 2 ML AMP ONE
[2019-09-11] MEDS ORDERED: SODIUM CHLORIDE 0.9% 1,000 ML IV ONE (11:27)
[2019-09-11] MEDS ORDERED: ONDANSETRON 4 MG/2 ML VIAL IVP ONE (11:34)
[2019-09-11] MEDS ORDERED: fentaNYL (PF) 50 MCG/ML 2 ML AMP ONE (12:30)
[2019-09-11] MEDS ORDERED: LIDOCAINE 1% INJ 10MG/ML (20 ML MDV) ONE (12:30)
[2019-09-11] MEDS ORDERED: MIDAZOLAM 2 MG/2 ML VIAL ONE (12:30)
[2019-09-11] MEDS ORDERED: PROPOFOL 10 MG/ML 20 ML VIAL IV ONE (12:30)
[2019-09-11] MEDS ORDERED: SUCCINYLCHOLINE CHLORIDE VIAL 200 MG/10 ML VIAL IV ONE (12:30)
[2019-09-11] MEDS ORDERED: INSULIN ASPART (NovoLOG) 100 UNIT/ML VIAL SQ ONE (12:33)
[2019-09-11 12:41] LABS: Glucose,Whole Blood 325 mg/dL (75-99)
[2019-09-11 13:29] VITALS: TEMP 97
[2019-09-11 13:33] LABS: Glucose,Whole Blood 306 mg/dL (75-99)
[2019-09-11 13:39] VITALS: RESP 16
--- NOTE | 2019-09-11 13:42 | P.OP ---
Date of Procedure: 09/11/19 Preoperative Diagnosis: Gross hematuria Postoperative Diagnosis: Same Procedure(s) Performed: Cystoscopy, evacuation of clots, fulguration of bleeder Anesthesia: ISSAC Surgeon: Zurdo Jaquez Estimated Blood Loss (ml): 10 IV fluids (ml): 100 Pathology: none sent Condition: stable Disposition: PACU Indications for Procedure: The patient is a 59-year-old white male with a history of prostate cancer, which was treated with radiation therapy in 2017. His PSA level remains undetectable. However, he has experienced intermittent gross hematuria with clots since 07/12/2019. Cystoscopy shows edema cephalad to the right ureteral orifice. Urine cytology shows atypical cells. He has recently experienced difficulty voiding because of the size of the clots, and he thus comes for cystoscopy, evacuation of clots, and fulguration of bleeders. Operative Findings: Active bleeding from the right lateral bladder wall, just cephalad to the vesical neck. Description of Procedure: The patient was taken to the operating room and placed in the dorsolithotomy position, with legs supported in Rigoberto stirrups. The external genitalia was prepped and draped sterilely. The 30 lens was used to introduce the 19-Cymro Stortz cystoscopic sheath through the urethra and into the bladder under direct vision. The prostatic urethra showed evidence of minimal lateral lobe enlargement. Due to a high median bar and the patient's body habitus, passage of the cystoscope into the bladder was difficult. The bladder was examined in its entirety. Both ureteral orifices were of normal anatomic location and configuration, and clear urine effluxed from both. No tumors or foreign bodies were seen. Several clots were adherent to the right lateral bladder wall, just cephalad to the vesical neck. These were removed using the Ellik evacuator. The bladder was then re-inspected. A small area of active bleeding was seen where the clot was adherent. The Bugbee electrode was used to fulgurate this, obtaining excellent hemostasis. Slightly oozing from the posterior vesical neck was noted, due to passage of the cystoscope into the bladder, and this was also fulgurated. The cystoscope was removed, and a 16-Cymro coud-tip Villar catheter was placed. The return was clear. The patient tolerated the procedure well was taken to the recovery room in stable condition.
[2019-09-11 15:14] VITALS: BP 147/70; PULSE 83
== END 2019-09-11 15:14 | disposition home or self-care (01) ==
LOC: OR 10:52
PROVIDERS: ATTEND Urology
DX: R31.0 Gross hematuria (principal); Z85.46 Personal history of malignant neoplasm of prostate; Z92.3 Personal history of irradiation; I13.2 Hypertensive heart and chronic kidney disease with heart failure and with stage 5 chronic kidney disease, or end stage renal disease; I50.9 Heart failure, unspecified; N18.6 End stage renal disease; E11.22 Type 2 diabetes mellitus with diabetic chronic kidney disease; Z99.2 Dependence on renal dialysis; Z79.4 Long term (current) use of insulin; Z86.73 Personal history of transient ischemic attack (TIA), and cerebral infarction without residual deficits; K21.9 Gastro-esophageal reflux disease without esophagitis; E78.5 Hyperlipidemia, unspecified; E03.9 Hypothyroidism, unspecified; D50.9 Iron deficiency anemia, unspecified; G47.30 Sleep apnea, unspecified; Z99.89 Dependence on other enabling machines and devices; M10.9 Gout, unspecified; K59.00 Constipation, unspecified; H91.21 Sudden idiopathic hearing loss, right ear; Z98.84 Bariatric surgery status; Z90.49 Acquired absence of other specified parts of digestive tract; F40.240 Claustrophobia; F41.9 Anxiety disorder, unspecified; F32.9 Major depressive disorder, single episode, unspecified; Z82.49 Family history of ischemic heart disease and other diseases of the circulatory system; Z83.3 Family history of diabetes mellitus; Z82.0 Family history of epilepsy and other diseases of the nervous system; Z82.3 Family history of stroke; Z79.890 Hormone replacement therapy; Z79.899 Other long term (current) drug therapy
CPT/HCPCS: 52001; J2250; J0330; J0690; J2405; J2001; J3010; J2704

== ENCOUNTER 2020-10-20 13:42 | Inpatient (IN) | payer MEDICARE, BC ==
--- NOTE | 2020-10-20 14:05 | ED ---
General Adult HPI - General Chief complaint: Chest Pain Stated complaint: tingling in chest, SOB Time Seen by Provider: 10/20/20 13:58 Source: patient, RN notes reviewed Mode of arrival: wheelchair Limitations: no limitations - History of Present Illness Initial comments: Patient is a pleasant 60-year-old male presenting to the emergency Department with complaints of chest discomfort. Onset of symptoms was around 3 AM. Patient took pain pills with improvement of symptoms. They returned oh 9 AM and improved again after some more pain pills. Symptoms started getting worse again prior to arrival. Symptoms have started to ease off and is currently rated 6/10. Discomfort feels like tightness. Patient did feel short of breath earlier, none at this time. No associated nausea or diaphoresis. Symptoms do worsen with deep breaths. No history of similar symptoms previously. No leg pain or leg swelling. - Related Data Home Medications Medication Instructions Recorded Confirmed Atorvastatin [Lipitor] 40 mg PO HS 08/07/14 09/10/19 HYDROcodone/APAP 7.5-325MG [[place] 1 tab PO QID PRN 11/09/16 09/11/19 7.5-325] Febuxostat [Uloric] 40 mg PO DAILY 07/06/17 09/10/19 Levothyroxine Sodium 100 mcg PO DAILY 07/06/17 09/10/19 Insulin Aspart [NovoLOG] 25 units SQ ACHS 01/17/18 09/10/19 Insulin Detemir (Levemir) [Levemir] 55 unit SQ HS 06/03/19 09/10/19 Pregabalin [Lyrica] 50 mg PO DAILY 06/03/19 09/10/19 Calcium Acetate [Phoslo] 1,334 mg PO TID-W/MEALS 09/10/19 09/10/19 Torsemide [Demadex] 40 mg PO DAILY 09/10/19 09/10/19 Vitamin D, Iron & Renal Vit 1 dose DIRECTED 09/10/19 Previous Rx's Medication Instructions Recorded Lactulose [Cephulac] 30 gm PO DAILY #0 ml 10/24/18 Allergies Allergy/AdvReac Type Severity Reaction Status Date / Time No Known Allergies Allergy Verified 10/20/20 13:45 Review of Systems ROS Statement: Those systems with pertinent positive or pertinent negative responses have been documented in the HPI. ROS Other: All systems not noted in ROS Statement are negative. Constitutional: Denies: fever Eyes: Denies: eye pain ENT: Denies: ear pain Respiratory: Reports: as per HPI Cardiovascular: Reports: as per HPI, chest pain Endocrine: Denies: fatigue Gastrointestinal: Denies: abdominal pain Genitourinary: Denies: dysuria Musculoskeletal: Denies: back pain Skin: Denies: rash Neurological: Denies: weakness Past Medical History Past Medical History: Cancer, CVA/TIA Additional Past Medical History / Comment(s): neuropathy, prostate cancer 44 radiation tx, CKD stage lV, hypothyroidism, tia x3,iron deficiency anemia has had iron infusions, and po iron supplement, USES CPAP MACHINE, had pne vaccine 3-4 years ago,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 pt on dialysis tuesday, , Tuesday History of Any Multi-Drug Resistant Organisms: None Reported Past Surgical History: Adenoidectomy, Bariatric Surgery, Cholecystectomy, Heart Catheterization, Tonsillectomy Additional Past Surgical History / Comment(s): FX of right ankle repair pins / plate, fistual lt arm jul 2018 has'nt started dialysis, lt shoulder sx (d/t separation) Past Anesthesia/Blood Transfusion Reactions: Motion Sickness Additional Past Anesthesia/Blood Transfusion Reaction / Comment(s): CLAUSTERPHOBIA Past Psychological History: Anxiety Smoking Status: Never smoker Past Alcohol Use History: Rare Past Drug Use History: None Reported - Past Family History Mother History Unknown: Yes Family Medical History: Coronary Artery Disease (CAD), Diabetes Mellitus, Myocardial Infarction ([place]) Additional Family Medical History / Comment(s): Mother at age 58 from multiple sclerosis Father Family Medical History: CVA/TIA, Myocardial Infarction ([place]) Additional Family Medical History / Comment(s): Father had history of [place] and CVA followed by a second [place] and CVA and at age 65. Brother(s) Additional Family Medical History / Comment(s): . General Exam Limitations: no limitations General appearance: alert, in no apparent distress Head exam: Present: normocephalic Eye exam: Present: normal appearance Neck exam: Present: normal inspection Respiratory exam: Present: normal lung sounds bilaterally. Absent: chest wall tenderness Cardiovascular Exam: Present: regular rate, normal rhythm Expanded Peripheral pulses: 2+: Radial (R), Radial (L), Dorsalis Pedis (R), Dorsalis Pedis (L) GI/Abdominal exam: Present: soft. Absent: tenderness Extremities exam: Present: normal inspection. Absent: pedal edema, calf tenderness Neurological exam: Present: alert Psychiatric exam: Present: normal affect, normal mood Skin exam: Present: normal color Course Vital Signs 10/20/20 10/20/20 13:45 14:12 Temperature 98.5 F Pulse Rate 95 95 Respiratory 20 18 Rate Blood Pressure 198/83 136/61 O2 Sat by Pulse 99 100 Oximetry - Reevaluation(s) Reevaluation #1: 10/20/20 14:04 Repeat EKG shows normal sinus rhythm and 91. MI 176. QRS 88. QT 354. QTC 435. Normal axis. Normal QRS. Inferior ST elevation. 10/20/20 14:07 STEMI alert was previously called. Practitioner Colleen is present. 10/20/20 14:18 Cardiology is made of aware of concerns regarding chest x-ray. They're trying to decide if they're taking patient to [facility] versus computed tomography scan. Case discussed with Dr. May who is also made aware of chest x-ray changes. She will admit covering for Dr. Oshea. 10/20/20 14:27 Cardiology has taking patient to [facility]. EKG Findings - EKG Comments: EKG Findings:: Normal sinus rhythm and 93. MI 174. QRS 86. QT 350. QTC 435. Normal axis. Normal QRS. Inferior ST elevation. Medical Decision Making - Lab Data Result diagrams: 10/20/20 14:00 Lab Results 10/20/20 Range/Units 14:00 WBC 12.0 H (3.8-10.6) k/uL RBC 3.49 L (4.30-5.90) m/uL Hgb 11.2 L (13.0-17.5) gm/dL Hct 33.7 L (39.0-53.0) % MCV 96.7 (80.0-100.0) fL MCH 32.1 (25.0-35.0) pg MCHC 33.2 (31.0-37.0) g/dL RDW 15.2 (11.5-15.5) % Plt Count 207 (150-450) k/uL MPV 7.2 Neutrophils % 85 % Lymphocytes % 7 % Monocytes % 5 % Eosinophils % 2 % Basophils % 0 % Neutrophils # 10.2 H (1.3-7.7) k/uL Lymphocytes # 0.8 L (1.0-4.8) k/uL Monocytes # 0.6 (0-1.0) k/uL Eosinophils # 0.2 (0-0.7) k/uL Basophils # 0.0 (0-0.2) k/uL - Radiology Data Radiology results: image reviewed Disposition Clinical Impression: ST elevation myocardial infarction (STEMI) Disposition: ADMITTED IP TO THIS HOSP Condition: Critical Is patient prescribed a controlled substance at d/c from ED?: No Referrals: Hayes Oshea MD [Primary Care Provider] - 1-2 days Decision Time: 14:27
[2020-10-20] MEDS ORDERED: ASPIRIN 81 MG PO STA (14:09)
[2020-10-20] MEDS ORDERED: ATORVASTATIN 80 MG TAB PO STA (14:09)
[2020-10-20] MEDS ORDERED: HEPARIN SODIUM,PORCINE 5,000 UNIT/ML 1 ML VIAL IV STA (14:11)
[2020-10-20 14:18] LABS: Basophils % (A) 0 %; Eosinophils # (A) 0.2 k/uL (0-0.7); Eosinophils % (A) 2 %; HCT 33.7 % (39.0-53.0); HGB 11.2 gm/dL (13.0-17.5); Lymphocytes # (A) 0.8 k/uL (1.0-4.8); Lymphocytes % (A) 7 %; MCH 32.1 pg (25.0-35.0); MCHC 33.2 g/dL (31.0-37.0); MCV 96.7 fL (80.0-100.0); Mean Platelet Volume 7.2; Monocytes # (A) 0.6 k/uL (0-1.0); Monocytes % (A) 5 %; Neutrophils # (A) 10.2 k/uL (1.3-7.7); Neutrophils % (A) 85 %; Platelet Count 207 k/uL (150-450); RBC 3.49 m/uL (4.30-5.90); RDW 15.2 % (11.5-15.5)
--- NOTE | 2020-10-20 14:23 | XR ---
EXAMINATION TYPE: XR chest 1V DATE OF EXAM: 10/20/2020 COMPARISON: 10/18/2018 HISTORY: 60-year-old male difficulty breathing TECHNIQUE: Single frontal view of the chest is obtained. FINDINGS: Heart patient body habitus. Heart mildly enlarged. Mild interstitial prominence. Hazy densities relat ing to large body habitus. There seems to be a normal variant azygous fissure. Right paratracheal sof t tissue prominence redemonstrated, not as accentuated on the prior PA study. Azygous fissure is also noted. No estefanía consolidation or pleural effusion seen. IMPRESSION: Cardiomegaly. Portable exam further limited by large patient body habitus. Allowing for AP portable t echnique, the right paratracheal soft tissue prominence is likely similar and likely reflects promine nt mediastinal fat, vascular ectasia, and azygous fissure. No focal infiltrate seen.
[2020-10-20] MEDS ORDERED: fentaNYL (PF) 50 MCG/ML 2 ML AMP ONE (14:24)
[2020-10-20] MEDS ORDERED: MIDAZOLAM 2 MG/2 ML VIAL IVP ONE (14:25)
[2020-10-20] MEDS ORDERED: LIDOCAINE 1% INJ 10MG/ML (20 ML MDV) SQ ONE (14:27)
[2020-10-20] MEDS ORDERED: IV FLUID CONTINUATION 1,000 ML IV ONE (14:28)
[2020-10-20 14:29] LABS: INR 0.9 (<1.2); Partial Thromboplastin Time 25.3 sec (22.0-30.0); Prothrombin Time 9.6 sec (9.0-12.0)
--- NOTE | 2020-10-20 14:29 | P.CRDCN ---
History of Present Illness Consult date: 10/20/20 History of present illness: CHIEF COMPLAINT: Chest pain HISTORY OF PRESENT ILLNESS: This is a 60 year old male with a past medical history significant for end-stage renal disease on hemodialysis Tuesday, hypertension, hyperlipidemia, TIA, and obesity. Patient follows in the office with Dr. Liz. Patient presented to the ER with a chief complaint of chest pain. Patient reports waking up early this morning with chest discomfort and shortness of breath. He denied any radiation of the pain. Denied nausea or vomiting. Denies dizziness or lightheadedness. Patient states he took a pain pill which temporarily relieved his symptoms. He states about an hour later his symptoms returned so he took another pain pill and then went back to sleep. He states his pain returned again so he decided to come to the emergency room. Patient continues to have chest discomfort at time of examination in the ER. DIAGNOSTICS: EKG reveals sinus mechanism with ST elevation in inferior leads Chest xray pending at the time of dictation Laboratory data: WBC 12.0. Hemoglobin 11.2. Platelet count 207. Additional labs pending at time of dictation Current home cardiac medications include Demadex 40 mg daily and Lipitor 40 mg daily REVIEW OF SYSTEMS: At the time of my exam: CONSTITUTIONAL: Denies fever or chills. HEENT: Denies blurred vision, vision changes, or eye pain. Denies hemoptysis CARDIOVASCULAR: Denies chest pain, orthopnea, PND or palpitations RESPIRATORY: No shortness of breath. GASTROINTESTINAL: Denies abdominal pain. Denies nausea or vomiting. HEMATOLOGIC: Denies bleeding disorders. GENITOURINARY: Denies any blood in urine. SKIN: Denies pruitis. Denies rash. PHYSICAL EXAM: VITAL SIGNS: Reviewed. GENERAL: Well-developed in no acute distress. HEENT: Head is normocephalic. Pupils are equal, round. Sclerae anicteric. Mucous membranes of the mouth are moist. Neck supple. No JVD or thyromegaly LUNGS: Respirations even and unlabored. Lungs essentially clear to auscultation bilaterally. HEART: Regular rate and rhythm. S1 and S2 heard. ABDOMEN: Soft. Nondistended. Nontender. EXTREMITIES: Normal range of motion. No clubbing or cyanosis. Peripheral pulses intact. No lower extremity edema NEUROLOGIC: Awake and alert. Oriented x 3. ASSESSMENT: Acute inferior ST elevated myocardial infarction End-stage renal disease on hemodialysis Tuesday Hypertension Hyperlipidemia Diabetes mellitus, type II History of TIA Morbid obesity: BMI 47.4 PLAN: Patient given 324mg aspirin and 4000 unit heparin bolus in ER Patient advised to undergo urgent cardiac catheterization. Patient agreeable. Patient transported to collaborating supervising physician in stable condition Obtain 2D echo after cardiac cath to assess cardiac structure and function ER physician notified cardiology of chest xray revealing possible widened mediastinum. Dr. Youngblood notified and okay with patient proceeding to collaborating supervising physician. Further recommendations pending patient course Nurse practitioner note has been reviewed by physician. Signing provider agrees with the documented findings, assessment, and plan of care. 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 pt on dialysis tuesday, , Tuesday History of Any Multi-Drug Resistant Organisms: None Reported Past Surgical History: Adenoidectomy, Bariatric Surgery, Cholecystectomy, Heart Catheterization, Tonsillectomy Additional Past Surgical History / Comment(s): FX of right ankle repair pins / plate, fistual lt arm jul 2018 has'nt started dialysis, lt shoulder sx (d/t separation) Past Anesthesia/Blood Transfusion Reactions: Motion Sickness Additional Past Anesthesia/Blood Transfusion Reaction / Comment(s): CLAUST ERPHOBIA Past Psychological History: Anxiety Smoking Status: Never smoker Past Alcohol Use History: Rare Past Drug Use History: None Reported - Past Family History Mother History Unknown: Yes Family Medical History: Coronary Artery Disease (CAD), Diabetes Mellitus, Myocardial Infarction ([place]) Additional Family Medical History / Comment(s): Mother at age 58 from multiple sclerosis Father Family Medical History: CVA/TIA, Myocardial Infarction ([place]) Additional Family Medical History / Comment(s): Father had history of [place] and CVA followed by a second [place] and CVA and at age 65. Brother(s) Additional Family Medical History / Comment(s): . Medications and Allergies Home Medications Medication Instructions Recorded Confirmed Type Atorvastatin [Lipitor] 40 mg PO HS 08/07/14 09/10/19 History HYDROcodone/APAP 7.5-325MG [[place] 1 tab PO QID PRN 11/09/16 09/11/19 History 7.5-325] Febuxostat [Uloric] 40 mg PO DAILY 07/06/17 09/10/19 History Levothyroxine Sodium 100 mcg PO DAILY 07/06/17 09/10/19 History Insulin Aspart [NovoLOG] 25 units SQ ACHS 01/17/18 09/10/19 History Lactulose [Cephulac] 30 gm PO DAILY #0 ml 10/24/18 09/10/19 Rx Insulin Detemir (Levemir) [Levemir] 55 unit SQ HS 06/03/19 09/10/19 History Pregabalin [Lyrica] 50 mg PO DAILY 06/03/19 09/10/19 History Calcium Acetate [Phoslo] 1,334 mg PO TID-W/MEALS 09/10/19 09/10/19 History Torsemide [Demadex] 40 mg PO DAILY 09/10/19 09/10/19 History Vitamin D, Iron & Renal Vit 1 dose DIRECTED 09/10/19 History Allergies Allergy/AdvReac Type Severity Reaction Status Date / Time No Known Allergies Allergy Verified 10/20/20 13:45 Physical Exam Vitals: Vital Signs Temp Pulse Resp BP Pulse Ox 10/20/20 14:12 95 18 136/61 100 10/20/20 13:45 98.5 F 95 20 198/83 99 Intake and Output 10/19/20 10/20/20 10/20/20 22:59 06:59 14:59 Other: Weight 154.221 kg Results 10/20/20 14:00 10/20/20 14:00 Intake and Output 10/19/20 10/20/20 10/20/20 22:59 06:59 14:59 Other: Weight 154.221 kg Patient Weight 10/21/20 06:59 Weight 154.221 kg
[2020-10-20 14:30] LABS: Albumin 3.8 g/dL (3.5-5.0); Calcium 9.1 mg/dL (8.4-10.2); Magnesium 2.6 mg/dL (1.6-2.3); Potassium 5.7 mmol/L (3.5-5.1); Total Bilirubin 0.5 mg/dL (0.2-1.3)
[2020-10-20] MEDS ORDERED: TICAGRELOR 90 MG TAB ONE (14:38)
[2020-10-20] MEDS ORDERED: TICAGRELOR 90 MG TAB PO ONE (14:40)
[2020-10-20] MEDS ORDERED: HEPARIN SODIUM 1,000 UN/ML (10ML VL) ONE (14:40)
[2020-10-20] MEDS: NITROGLYCERIN 1000MCG/10ML SYRINGE INTRACORON ONE ×2 (14:41→14:56)
[2020-10-20] MEDS: HEPARIN SODIUM 1,000 UN/ML (10ML VL) IV ONE ×4 (14:41→15:44)
[2020-10-20] MEDS ORDERED: IOPAMIDOL-370 125ML BTL INJ ONE (14:54)
[2020-10-20] MEDS ORDERED: IOPAMIDOL-370 100ML BTL INJ ONE ×2 (15:30→15:36)
[2020-10-20] MEDS ORDERED: NITROGLYCERIN SL TABS 0.4 MG TAB SUBLINGUAL PRN (15:50)
[2020-10-20] MEDS ORDERED: MAG HYDROX/AL HYDROX/SIMETH 30 ML CUP PO PRN (15:50)
[2020-10-20] MEDS ORDERED: RX INFO: IV CONTRAST WAS GIVEN 1 EACH MISC MISCELLANE PRN (15:50)
[2020-10-20] MEDS ORDERED: ATROPINE SULFATE 0.1 MG/ML 10ML SYRINGE IV PRN (15:50)
[2020-10-20] MEDS ORDERED: SODIUM CHLORIDE 0.9% 1,000 ML IV SCH (16:00)
[2020-10-20 16:33] LABS: Glucose,Whole Blood 378 mg/dL (75-99)
--- NOTE | 2020-10-20 16:58 | P.HPIM ---
History of Present Illness H&P Date: 10/20/20 This is a 60-year-old pleasant gentleman patient of Dr. Marci Dove with known history of end-stage renal disease on hemodialysis, obstructive sleep apnea on CPAP machine, prostate cancer, under the care of Dr. Marrero , diabetes mellitus type 2, with diabetic retinopathy, hearing loss right ear, hypothyroidism hyperlipidemia hypertension, previous TIA, admitted to the emergency room secondary to chest pain. Patient woke up early in the morning with chest discomfort associated with shortness of breath, and and without dictation of the pain. Patient denies any lightheadedness no dizziness no palpitations, for which patient took some pain medication to relieve the symp toms. Patient rested and went back to sleep, however when awakening the pain remains, and decided to go to the emergency room for which the chest discomfort is still present in the emergency room. Patient was diagnosed to have an acute STEMI, inferior leads. He is given aspirin 325 mg daily, heparin bolus, Patient was sent to the [facility] urgent revascularization. Echocardiogram requested, x-ray she shows possible widening of mediastinum, patient currently is in the ICU Review of Systems Constitutional: Denies as per HPI, Denies anorexia, Denies chills, Denies chronic headaches, Denies chronic pain, Denies daytime sleepiness, Denies fatigue, Denies fever, Denies lethargy, Denies malaise, Denies night sweats, Denies poor appetite, Denies sweats, Denies weakness, Denies weight gain, Denies weight loss Ears, nose, mouth and throat: Reports as per HPI Cardiovascular: Reports as per HPI, Reports chest pain, Reports edema Respiratory: Reports as per HPI Genitourinary: Reports as per HPI, Reports hematuria Musculoskeletal: Denies as per HPI, Denies arm numbness/tingling, Denies atrophy, Denies fractures, Denies frequent falls, Denies gait dysfunction, Denies hot joints, Denies leg numbness/tingling, Denies limitation of motion, Denies loss of height, Denies low back pain, Denies morning stiffness, Denies muscle cramps, Denies muscle weakness, Denies myalgias, Denies neck pain, Denies neck stiffness, Denies prior amputations, Denies redness of joints, Denies shooting arm pain, Denies shooting leg pain Integumentary: Reports as per HPI Neurological: Reports as per HPI, Denies aphasia, Denies ataxia, Denies balance difficulties, Denies burning pain, Denies change in mentation, Denies change in smell/taste, Denies change in speech, Denies confusion, Denies convulsions, Denies double vision, Denies gait dysfunction, Denies head injury, Denies headaches, Denies hearing difficulties, Denies lack of coordination, Denies loss of vision, Denies memory loss, Denies migraines, Denies motor disturbance, Denies numbness, Denies paralysis, Denies paresthesias, Denies seizures, Denies sensory deficit, Denies spasticity, Denies syncope, Denies tic, Denies tingling, Denies transient paralysis, Denies tremors, Denies vertigo, Denies weakness, Denies visual changes Psychiatric: Reports as per HPI Endocrine: Reports as per HPI Hematologic/Lymphatic: Reports as per HPI Allergic/Immunologic: Reports as per HPI Past Medical History Past Medical History: Cancer, CVA/TIA Additional Past Medical History / Comment(s): neuropathy, prostate cancer 44 radiation tx, CKD stage lV, hypothyroidism, tia x3,iron deficiency anemia has had iron infusions, and po iron supplement, USES CPAP MACHINE, had pne vaccine 3-4 years ago,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 pt on dialysis tuesday, , Tuesday History of Any Multi-Drug Resistant Organisms: None Reported Past Surgical History: Adenoidectomy, Bariatric Surgery, Cholecystectomy, Heart Catheterization, Tonsillectomy Additional Past Surgical History / Comment(s): FX of right ankle repair pins / plate, fistual lt arm jul 2018 has'nt started dialysis, lt shoulder sx (d/t separation) Past Anesthesia/Blood Transfusion Reactions: Motion Sickness Additional Past Anesthesia/Blood Transfusion Reaction / Comment(s): CLAUSTERPHOBIA Past Psychological History: Anxiety Smoking Status: Never smoker Past Alcohol Use History: Rare Past Drug Use History: None Reported - Past Family History Mother History Unknown: Yes Family Medical History: Coronary Artery Disease (CAD), Diabetes Mellitus, Myocardial Infarction ([place]) Additional Family Medical History / Comment(s): Mother at age 58 from mu ltiple sclerosis Father Family Medical History: CVA/TIA, Myocardial Infarction ([place]) Additional Family Medical History / Comment(s): Father had history of [place] and CVA followed by a second [place] and CVA and at age 65. Brother(s) Additional Family Medical History / Comment(s): . Medications and Allergies Home Medications Medication Instructions Recorded Confirmed Type Atorvastatin [Lipitor] 40 mg PO HS 08/07/14 09/10/19 History HYDROcodone/APAP 7.5-325MG [[place] 1 tab PO QID PRN 11/09/16 09/11/19 History 7.5-325] Febuxostat [Uloric] 40 mg PO DAILY 07/06/17 09/10/19 History Levothyroxine Sodium 100 mcg PO DAILY 07/06/17 09/10/19 History Insulin Aspart [NovoLOG] 25 units SQ ACHS 01/17/18 09/10/19 History Lactulose [Cephulac] 30 gm PO DAILY #0 ml 10/24/18 09/10/19 Rx Insulin Detemir (Levemir) [Levemir] 55 unit SQ HS 06/03/19 09/10/19 History Pregabalin [Lyrica] 50 mg PO DAILY 06/03/19 09/10/19 History Calcium Acetate [Phoslo] 1,334 mg PO TID-W/MEALS 09/10/19 09/10/19 History Torsemide [Demadex] 40 mg PO DAILY 09/10/19 09/10/19 History Vitamin D, Iron & Renal Vit 1 dose DIRECTED 09/10/19 History Allergies Allergy/AdvReac Type Severity Reaction Status Date / Time No Known Allergies Allergy Verified 10/20/20 13:45 Physical Exam Vitals: Vital Signs Temp Pulse Pulse Resp BP Pulse Ox 10/20/20 16:30 89 23 159/76 96 10/20/20 16:15 98.1 F 90 14 161/61 96 10/20/20 14:24 99 10/20/20 14:12 95 18 136/61 100 10/20/20 13:45 98.5 F 95 20 198/83 99 Intake and Output 10/20/20 10/20/20 10/20/20 06:59 14:59 22:59 Intake Total 100 Balance 100 Intake: IV 100 Other: Weight 154.221 kg - Constitutional General appearance: cooperative, morbidly obese, no acute distress - EENT Eyes: EOMI, PERRLA, dentition normal, normal appearance ENT: NA/AT, normal oropharynx - Neck Neck: normal ROM - Respiratory Respiratory: bilateral: CTA, negative: diminished, dullness, rales - Cardiovascular Rhythm: regular Heart sounds: normal: S1, S2 Abnormal Heart Sounds: no systolic murmur, no diastolic murmur, no rub, no S3 Gallop, no S4 Gallop, no click, no other - Gastrointestinal General gastrointestinal: soft - Integumentary Integumentary: decreased turgor, normal - Neurologic Neurologic: CNII-XII intact - Musculoskeletal Musculoskeletal: gait normal - Psychiatric Psychiatric: A&O x's 3, appropriate affect, intact judgment & insight Results CBC & Chem 7: 10/20/20 14:00 10/20/20 14:00 Labs: Abnormal Lab Results - Last 24 Hours (Table) 10/20/20 10/20/20 10/20/20 Range/Units 14:00 14:00 16:13 WBC 12.0 H (3.8-10.6) k/uL RBC 3.49 L (4.30-5.90) m/uL Hgb 11.2 L (13.0-17.5) gm/dL Hct 33.7 L (39.0-53.0) % Neutrophils # 10.2 H (1.3-7.7) k/uL Lymphocytes # 0.8 L (1.0-4.8) k/uL Sodium 130 L (137-145) mmol/L Potassium 5.7 H (3.5-5.1) mmol/L Chloride 87 L (98-107) mmol/L BUN 56 H (9-20) mg/dL Creatinine 6.13 H (0.66-1.25) mg/dL Glucose 386 H (74-99) mg/dL POC Glucose (mg/dL) 378 H (75-99) mg/dL Magnesium 2.6 H (1.6-2.3) mg/dL AST 16 L (17-59) U/L Creatine Kinase 33 L (55-170) U/L Thrombosis Risk Factor Assmnt - DVT/VTE Prophylaxis DVT/VTE Prophylaxis: Pharmacologic Prophylaxis ordered Assessment and Plan Plan: 1 acute STEMI, inferior leads, affecting right coronary artery circulation angioplasty performed 10/20/2020. Status post urgent revascularization, dual antiplatelet, aspirin 81 and brillinta 90 bid statin, [place] currently. nitroglycerin, next 2. Insulin-dependent diabetes type 2 with hyperglycemia. Continue glipizide 2.5 twice a day, Levemir 55 units at bedtime, Humalog 25 units before meals and at bedtime and sliding scale with Accu-Cheks, A1c pending. 3. Hypertension. , metoprolol 50 mg twice a day, Demadex 40 mg daily 4. End-stage renal disease on hemodialysis, on PhosLo, his [place] 40 mg daily 4. Sleep apnea. Continue CPAP. 5. GERD. Continue Protonix 40 mg 6. Neuropathy. Continue Lyrica 50 mg twice a day and [place] 7.5-325 mg every 6 hours as needed for pain. 7. Hypothyroidism. Continue levothyroxine 100 mg daily. 8. Hyperlipidemia. Continue Lipitor 40 mg daily. 9. History of prostate cancer. Received radiation therapy in September 2016, currently in remission, will continue to monitor. 10. Morbid obesity with history of lap band. 11. Anemia of chronic kidney disease. Continue ferrous sulfate 325 mg by mouth daily. 12. Generalized anxiety disorder. Continue Ativan 0.5 mg twice daily as needed. 13. Diabetes mellitus type 2 with diabetic neuropathy and diabetic retinopathy. On Lyrica and [place] 14. DVT prophylaxis heparin 15. GI prophylaxis Protonix 40 mg. Patient will be admitted to the hospital for a minimum of 2 night stay. Discharge plan: Most likely return home.
[2020-10-20] MEDS: CALCIUM ACETATE 667 MG TAB PO SCH (17:01)
[2020-10-20] MEDS: INSULIN ASPART (NovoLOG) 100 UNIT/ML VIAL SQ SCH ×2 (17:01→21:10)
--- NOTE | 2020-10-20 18:38 | P.PRCINT ---
Percutaneous Coronary Int. - Percutaneous Coronary Intervention Percutaneous Coronary Intervention: PROCEDURES PERFORMED: Right coronary angiography, PCI of proximal to mid RCA with overlapping 3.5 x 15 mm Xience TORIN and 4.0 x 23mm Xience TORIN, Angio-Seal right femoral artery INDICATION: STEMI HISTORY: Patient is a pleasant 60 year old male with history of HLD, HTN, ESRD on HD who presented with chest pain since earlier this morning and was found to have inferior STEMI. He had diagnostic catheterization from right femoral approach by Dr Youngblood showing mild disease of the left system and a 95% proximal to mid RCA stenosis and I was asked to evaluate for PCI. CONSENT:I have discussed the risks, benefits and alternative therapies for the above-mentioned procedure and for both sedation/analgesia as well as necessary blood product administration, if indicated, as they pertain to this patient. The patient has indicated understanding and acceptance of the risks and procedures discussed. PROCEDURE: After the risks, benefits and alternatives of the above mentioned procedure explained in detail with the patient, informed consent was obtained. Patient had already been taken to the catheterization lab and prepped and draped in usual fashion. The right femoral arterial 6Fr sheath had previously been carlos nehemiah. Heparin was given as well Brillinta. A decision was made to intervene on the RCA. A 6Fr AL 0.75 guide was used to engage the RCA. A 0.014 BMW wire was placed in the distal RCA. Predilation was performed using a 2.5 x 12 mm then 3.25 x 12mm NC balloon. A 3.5 x 15mm Xience TORIN stent was then placed. There was however a more proximal long 70% stenosis which was felt best treated as well and therefore this lesion was predilated with the 3.25 x 12mm balloon. This did result in a non flow limiting dissection which was then covered with a 4.0 x 23mm Xience TORIN. A guideliner was used to help deploy the stent as there was a fair amount of calcification and tortuosity. Both stent were post dilated with a 4.0 x 8mm NC balloon. Angiograms were obtained in multiple views. Pre intervention there was 95% stenosis and KATELYN 3 flow and post intervention there was <10% residual stenosis and KATELYN 3 flow with more proximal 20% stenosis felt best treated medically. The wire was then removed and final angiograms were obtained. Right femoral angiogram was performed which showed adequate anatomy for closure. A 6-Bahamian Angio-Seal was placed and hemostasis was achieved. The patient tolerated the procedure well. The patient was transferred to the post catheterization holding area in stable condition. Conscious Sedation: Patient was monitored under the direct supervision of vision of myself for conscious sedation using Versed and fentanyl for a total duration of 68 minutes HEMODYNAMICS: Aorta: 136/85 LV: 122/4, LVEDP 16 SELECTIVE CORONARY ARTERIOGRAPHY: LEFT MAIN: Not imaged, see diagnostic report. LEFT ANTERIOR DESCENDING CORONARY ARTERY: Not imaged, see diagnostic report. LEFT CIRCUMFLEX CORONARY ARTERY: Not imaged, see diagnostic report. RIGHT CORONARY ARTERY: The right coronary artery is a large caliber vessel which gives off a PDA and PLV branch and is the dominant vessel. There is a proximal long 60-70% stenosis followed by a more focal 95% proximal to mid RCA stenosis with a moderate degree of tortuosity. Conclusions: 1. Successful PCI of proximal to mid RCA with overlapping 3.5 x 15 mm Xience TORIN and 4.0 x 23mm Xience TORIN 2. Inferior STEMI 3. Normal left sided pressures Plan: 1. Aggressive risk factor modifications per most recent ACC/AHA guidelines. 2. Continue dual antiplatelets for 12 months.
[2020-10-20] MEDS: HYDROcodone/APAP 7.5-325MG 1 EACH TAB PO PRN (19:07)
[2020-10-20 20:47] LABS: Glucose,Whole Blood 378 mg/dL (75-99)
[2020-10-20] MEDS: TICAGRELOR 90 MG TAB PO SCH (21:09)
[2020-10-20] MEDS: carvediloL 6.25 MG TAB PO SCH (21:09)
[2020-10-20] MEDS: lisinopriL 5 MG TAB PO SCH (21:09)
[2020-10-20] MEDS: INSULIN DETEMIR (LEVEMIR) 100 UNIT/ML SYR SQ SCH (21:09)
[2020-10-20] MEDS: ATORVASTATIN 40 MG TAB PO SCH (21:09)
[2020-10-21] MEDS: HYDROcodone/APAP 7.5-325MG 1 EACH TAB PO PRN ×4 (00:27→22:45)
[2020-10-21 00:43] LABS: Hepatitis B Surface AB- Quant 7.7 mIU/mL; Hepatitis B Surface Antibody Non-Reactive (Non-Reactive); Hepatitis B Surface Antigen Non-Reactive (Non-Reactive)
[2020-10-21 03:52] LABS: Basophils # (A) 0.1 k/uL (0-0.2); Basophils % (A) 1 %; Eosinophils # (A) 0.1 k/uL (0-0.7); Eosinophils % (A) 1 %; HCT 29.4 % (39.0-53.0); Lymphocytes % (A) 11 %; MCH 31.8 pg (25.0-35.0); MCV 96.2 fL (80.0-100.0); Mean Platelet Volume 7.1; Monocytes # (A) 0.5 k/uL (0-1.0); Monocytes % (A) 5 %; Neutrophils # (A) 7.9 k/uL (1.3-7.7); Neutrophils % (A) 80 %; Platelet Count 214 k/uL (150-450); RBC 3.06 m/uL (4.30-5.90); RDW 15.4 % (11.5-15.5); WBC 9.8 k/uL (3.8-10.6)
[2020-10-21 04:06] LABS: Potassium 5.9 mmol/L (3.5-5.1)
[2020-10-21 04:38] LABS: HGB 9.7 gm/dL (13.0-17.5)
[2020-10-21] MEDS: INSULIN ASPART (NovoLOG) 100 UNIT/ML VIAL SQ SCH ×4 (06:46→20:49)
[2020-10-21] MEDS: CALCIUM ACETATE 667 MG TAB PO SCH ×3 (06:46→18:04)
[2020-10-21] MEDS: LEVOTHYROXINE 100 MCG TAB PO SCH (06:46)
[2020-10-21 07:12] LABS: Glucose,Whole Blood 299 mg/dL (75-99)
--- NOTE | 2020-10-21 08:46 | CC ---
CARDIAC CATHETERIZATION REPORT INDICATION: Lan is a 60-year-old gentleman who presented to hospital with acute inferior wall myocardial infarction and was advised to undergo emergent cardiac catheterization. The patient had been explained of risks, benefits and alternatives, understood and accepted. PROCEDURE NOTE: After obtaining informed consent, left heart catheterization and coronary angiogram are performed via the right femoral artery using standard Fara catheters. Patient tolerated the procedure well without any obvious immediate complications. Patient received moderate conscious sedation. Total sedation time was 13 minutes. FINDINGS: 1. HEMODYNAMICS: . 2. LEFT VENTRICULOGRAM: Left ventriculogram is not performed. 3. ANGIOGRAPHIC DATA: Left Main Coronary Artery: Left main coronary artery appears calcified but is free of significant stenosis. Divides into left anterior descending coronary artery and circumflex coronary artery. LAD shows mild to moderate nonobstructive disease in the proximal and midportion and diagonal branch. Circumflex coronary artery is a nondominant vessel and is free of significant disease. Right coronary artery shows a focal 95% stenosis in the midportion. CONCLUSION: 1. A 95% stenosis involving mid RCA. 2. Normal left ventricular end-diastolic pressures. PLAN: Patient will undergo angioplasty with stent placement of the right coronary artery. MMODL / IJN: [id number] /
[2020-10-21] MEDS: ASPIRIN 81 MG PO SCH (09:04)
[2020-10-21] MEDS: allopurinoL 100 MG TAB PO SCH (09:04)
[2020-10-21] MEDS: LACTULOSE 20 GM/30 ML CUP PO SCH (09:05)
[2020-10-21] MEDS: PREGABALIN 50 MG CAP PO SCH (09:05)
[2020-10-21] MEDS: TICAGRELOR 90 MG TAB PO SCH ×2 (09:05→20:50)
--- NOTE | 2020-10-21 10:07 | PN ---
PROGRESS NOTE Lan is a 60-year-old gentleman that is admitted to hospital with acute inferior wall myocardial infarction and underwent emergent cardiac catheterization and angioplasty of right coronary artery. He is doing well and is free of chest pain, difficulty in breathing or palpitations. PHYSICAL EXAMINATION: On exam, heart rate is 80 beats per minute. Blood pressure is 109/50, respiratory rate is 16, O2 saturation is 96% on room air. There is no jugular venous distention. Chest exam reveals good air entry bilaterally. Heart exam reveals first and second heart sounds. No gallop. No murmur. Abdomen is soft. Examination of extremities did not reveal any edema. Groin is free of bleeding, bruit or hematoma. Foot pulses are intact. LABS: Labs show a hemoglobin of 9.7, platelet count is 214. Potassium is 5.9. BUN is 66, creatinine 6.7. ASSESSMENT: 1. Acute inferior wall myocardial infarction, status post catheterization and angioplasty of right coronary artery. 2. End-stage renal disease on hemodialysis. 3. Morbid obesity, status post lap banding. PLAN: Patient is doing well. He will continue current medications. I will review echo results once they are available. I will transfer the patient out of ICU. MMODL / IJN: [id number] /
[2020-10-21 10:43] LABS: Glucose,Whole Blood 206 mg/dL (75-99)
[2020-10-21 11:02] VITALS: BMI 49.4
--- NOTE | 2020-10-21 11:48 | ECHOF ---
Referral Reason:LV function MEASUREMENTS -------- HEIGHT: 180.3 cm WEIGHT: 154.2 kg BP: 102/53 RVIDd: 3.6 cm (< 3.3) IVSd: 1.4 cm (0.6 - 1.1) LVIDd: 4.7 cm (3.9 - 5.3) LVPWd: 1.1 cm (0.6 - 1.1) IVSs: 2.2 cm LVIDs: 3.0 cm LVPWs: 1.5 cm LAESV Index (A-L): 31.23 ml/m MV E Kenny: 1.09 m/s MV DecT: 178 ms MV A Kenny: 0.80 m/s MV E/A Ratio: 1.37 RAP: 5.00 mmHg RVSP: 12.97 mmHg FINDINGS -------- Sinus rhythm. This was a technically difficult study with suboptimal views. The left ventricular size is normal. There is moderate concentric left ventricular hypertrophy. O verall left ventricular systolic function is normal with, an EF between 55 - 60 %. The right ventricle is mildly enlarged. LA is midly dilated 29-33ml/m2. The right atrium was not well visualized. 5.0mg of Lumason was utilized for enhancement of images Interatrial and interventricular septum intact. The aortic valve was not well visualized. There is no evidence of aortic regurgitation. There is no evidence of aortic stenosis. The mitral valve leaflets are mildly thickened. No mitral regurgitation. The tricuspid valve appears structurally normal. Mild tricuspid regurgitation present. There is n o evidence of pulmonary hypertension. The right ventricular systolic pressure, as measured by Doppl er, is 12.97mmHg. The pulmonic valve was not well visualized. The aortic root size is normal. IVC Not well visulized. There is a trivial pericardial effusion present. CONCLUSIONS -------- 1. This was a technically difficult study with suboptimal views. 2. There is moderate concentric left ventricular hypertrophy. 3. Overall left ventricular systolic function is normal with, an EF between 55 - 60 %. 4. The right ventricle is mildly enlarged. 5. LA is midly dilated 29-33ml/m2. 6. The mitral valve leaflets are mildly thickened. 7. Mild tricuspid regurgitation present. 8. There is a trivial pericardial effusion present. UNDERWATER HUNTER TRAPPER: Phyllis Drummond [facility]
--- NOTE | 2020-10-21 14:07 | P.PN ---
Subjective Progress Note Date: 10/21/20 HISTORY OF PRESENT ILLNESS This is a 60-year-old pleasant gentleman patient of Dr. Oshea, Dr. Liz, Dr. Dove with known history of end-stage renal disease on hemodialysis, obstructive sleep apnea on CPAP machine, prostate cancer, under the care of Dr. Marrero , diabetes mellitus type 2, with diabetic retinopathy, hearing loss right ear, hypothyroidism hyperlipidemia hypertension, previous TIA, admitted to the emergency room secondary to chest pain. Patient woke up early in the morning with chest discomfort associated with shortness of breath, and and without dictation of the pain. Patient denies any lightheadedness no dizziness no palpitations, for which patient took some pain medication to relieve the symptoms. Patient rested and went back to sleep, however when awakening the pain remains, and decided to go to the emergency room for which the chest discomfort is still present in the emergency room. Patient was diagnosed to have an acute STEMI, inferior leads. He is given aspirin 325 mg daily, heparin bolus, Patient was sent to the can labeler urgent revascularization. Echocardiogram requested, x-ray she shows possible widening of mediastinum, patient currently is in the ICU 10/21: Patient underwent heart catheterization which revealed 95% stenosis involving the mid RCA status post angioplasty. Patient is seen this morning in the intensive care unit. He denies having any chest pain. No cough. No edema. He denies any choking on food. His appetite is good. He is scheduled for hemodialysis today. He has been afebrile, heart rate 93, blood pressure 153/81. Patient is waiting for a bed on the cardiac stepdown unit. Echocardiogram reve als EF of 55-60%, mild tricuspid regurgitation. REVIEW OF SYSTEMS At time of evaluation: Constitutional: No fever, no chills, no night sweats. No weight change. No weakness, fatigue or lethargy. No daytime sleepiness. EENT: No headache. No blurred vision or double vision, no loss of vision. No loss of Hearing, no ringing in the ears, no dizziness. No nasal drainage or congestion. No epistaxis. No sore throat. Lungs: No shortness of breath, cough, no sputum production. No wheezing. Cardiovascular: No chest pain, no lower extremity edema. No palpitations. No paroxysmal nocturnal dyspnea. No orthopnea. No lightheadedness or dizziness. No syncopal episodes. Abdominal: No abdominal pain. No nausea, vomiting. No diarrhea. No constipation. No bloody or tarry stools. No loss of appetite. Genitourinary: No dysuria, increased frequency, urgency. No urinary retention. Musculoskeletal: No myalgias. No muscle weakness, no gait dysfunction, no frequent falls. No back pain. No neck pain. Integumentary: No wounds, no lesions. No rash or pruritus. No unusual bruising. No change in hair or nails. Neurologic: No aphasia. No facial droop. No change in mentation. No head injury. No headache. No paralysis. No paresthesia. Psychiatric: No depression. No anxiety. No mood swings. Endocrine: No abnormal blood sugars. No weight change. No excessive sweating or thirst. No cold intolerance. PHYSICAL EXAMINATION Gen: This is a 60-year-old morbidly obese male. He is sitting up on the edge of the bed and appears to be comfortable and in no acute distress. No respiratory distress noted. HEENT: Head is atraumatic, normocephalic. Pupils equal, round. Sclerae is anicteric. NECK: Supple. No JVD. No lymphadenopathy. No thyromegaly. LUNGS: Clear to auscultation. No wheezes or rhonchi. No intercostal retracti ons. HEART: Regular rate and rhythm. No murmur. ABDOMEN: Soft. Bowel sounds are present. No masses. No tenderness. EXTREMITIES: No pedal edema. No calf tenderness. NEUROLOGICAL: Patient is awake, alert and oriented x3. Cranial nerves 2 through 12 are grossly intact. ASSESSMENT AND PLAN 1. Acute inferior wall myocardial infarction status post heart catheterization and angioplasty of the right coronary artery. 2. Insulin-dependent diabetes mellitus type 2, uncontrolled with hyperglycemia. Continue glipizide 2.5 twice a day, Levemir 55 units at bedtime, Humalog 25 units before meals and at bedtime and sliding scale with Accu-Cheks, A1c pending. 3. Hypertension. Tinea metoprolol 50 mg twice a day, Demadex 40 mg daily 4. End-stage renal disease on hemodialysis, on PhosLo, his Grabill 40 mg daily 4. Sleep apnea. Continue CPAP. 5. GERD. Continue Protonix 40 mg 6. Neuropathy. Continue Lyrica 50 mg twice a day and [place] 7.5-325 mg every 6 hours as needed for pain. 7. Hypothyroidism. Continue levothyroxine 100 mg daily. 8. Hyperlipidemia. Continue Lipitor 40 mg daily. 9. History of prostate cancer. Received radiation therapy in September 2016, currently in remission, will continue to monitor. 10. Morbid obesity with history of lap band. 11. Anemia of chronic kidney disease. Continue ferrous sulfate 325 mg by mouth daily. 12. Generalized anxiety disorder. Continue Ativan 0.5 mg twice daily as needed. 13. Diabetes mellitus type 2 with diabetic neuropathy and diabetic retinopathy. On Lyrica and [place] 14. DVT prophylaxis heparin 15. GI prophylaxis Protonix 40 mg. DISCHARGE PLAN Home Impression and plan of care have been directed as dictated by the signing physician. Laine Jones nurse practitioner acting as scribe for signing physician. Objective - Vital Signs Vital signs: Vital Signs Temp 97.5 F L 10/21/20 08:00 Pulse 88 10/21/20 10:00 Resp 13 10/21/20 10:00 BP 153/81 10/21/20 10:00 Pulse Ox 96 10/21/20 07:00 Intake & Output 10/20/20 10/21/20 10/21/20 18:59 06:59 18:59 Intake Total 250 150 300 Output Total 300 350 0 Balance -50 -200 300 Weight 154.221 kg 160.8 kg Intake: IV 250 150 Sodium Chloride 0.9% 1, 150 150 000 ml @ 50 mls/hr IV . Q20H ALINE Rx#:[id number] Oral 300 Output: Urine 300 350 0 Other: Voiding Method Urinal Urinal Urinal # Voids 1 - Labs CBC & Chem 7: 10/21/20 03:23 10/21/20 03:23 Labs: Abnormal Lab Results - Last 24 Hours (Table) 10/20/20 10/20/20 10/20/20 Range/Units 14:00 14:00 16:13 WBC 12.0 H (3.8-10.6) k/uL RBC 3.49 L (4.30-5.90) m/uL Hgb 11.2 L (13.0-17.5) gm/dL Hct 33.7 L (39.0-53.0) % Neutrophils # 10.2 H (1.3-7.7) k/uL Lymphocytes # 0.8 L (1.0-4.8) k/uL Sodium 130 L (137-145) mmol/L Potassium 5.7 H (3.5-5.1) mmol/L Chloride 87 L (98-107) mmol/L BUN 56 H (9-20) mg/dL Creatinine 6.13 H (0.66-1.25) mg/dL Glucose 386 H (74-99) mg/dL POC Glucose (mg/dL) 378 H (75-99) mg/dL Magnesium 2.6 H (1.6-2.3) mg/dL AST 16 L (17-59) U/L Creatine Kinase 33 L (55-170) U/L 10/20/20 10/21/20 10/21/20 Range/Units 20:46 03:23 03:23 WBC (3.8-10.6) k/uL RBC 3.06 L (4.30-5.90) m/uL Hgb 9.7 L D (13.0-17.5) gm/dL Hct 29.4 L (39.0-53.0) % Neutrophils # 7.9 H (1.3-7.7) k/uL Lymphocytes # (1.0-4.8) k/uL Sodium 129 L (137-145) mmol/L Potassium 5.9 H (3.5-5.1) mmol/L Chloride 90 L (98-107) mmol/L BUN 65 H (9-20) mg/dL Creatinine 6.76 H (0.66-1.25) mg/dL Glucose 279 H (74-99) mg/dL POC Glucose (mg/dL) 378 H (75-99) mg/dL Magnesium (1.6-2.3) mg/dL AST (17-59) U/L Creatine Kinase (55-170) U/L 10/21/20 Range/Units 07:01 WBC (3.8-10.6) k/uL RBC (4.30-5.90) m/uL Hgb (13.0-17.5) gm/dL Hct (39.0-53.0) % Neutrophils # (1.3-7.7) k/uL Lymphocytes # (1.0-4.8) k/uL Sodium (137-145) mmol/L Potassium (3.5-5.1) mmol/L Chloride (98-107) mmol/L BUN (9-20) mg/dL Creatinine (0.66-1.25) mg/dL Glucose (74-99) mg/dL POC Glucose (mg/dL) 299 H (75-99) mg/dL Magnesium (1.6-2.3) mg/dL AST (17-59) U/L Creatine Kinase (55-170) U/L
[2020-10-21] MEDS ORDERED: DARBEPOETIN ALFA 40 MCG/0.4 ML SYRINGE SQ SCH (16:00)
[2020-10-21 16:18] LABS: Glucose,Whole Blood 195 mg/dL (75-99)
[2020-10-21 17:49] LABS: Glucose,Whole Blood 192 mg/dL (75-99)
--- NOTE | 2020-10-21 18:21 | CONS ---
CONSULTATION REASON FOR CONSULT: End-stage renal disease. HISTORY OF PRESENT ILLNESS: Patient is a 60-year-old male with end-stage renal disease, on hemodialysis on a Tuesday, , Tuesday schedule. The patient was admitted to the hospital with complaints of chest discomfort. The patient's EKG suggested severe acute inferior wall ischemia and he underwent emergency cardiac catheterization and angioplasty of the right coronary artery. Troponin was maximum at 0.018. Currently patient is chest pain- free. He denies any fever, chills, nausea, vomiting, abdominal pain or diarrhea. No chest pain. PAST MEDICAL HISTORY: End-stage renal disease, hypertension, obesity, history of prostate cancer, status post radiation therapy, CKD mineral bone disorder, anemia of chronic disease. PAST SURGICAL HISTORY: Adenoidectomy, bariatric surgery, cholecystectomy, cardiac catheterization previously, tonsillectomy, repair of fracture of right ankle, AV fistula, shoulder surgery. SOCIAL HISTORY: Negative for smoking, drug abuse or alcohol abuse. MEDICATIONS: Medications prior to admission include Lipitor, Uloric, insulin, Lyrica, PhosLo, Demadex, multivitamins. ALLERGIES: NONE. PHYSICAL EXAMINATION: Patient is comfortable, awake, not in any acute distress. Blood pressure was 148/58, heart rate 91 per minute. He is afebrile. EXAMINATION OF THE HEART: S1 and S2. EXAMINATION OF LUNGS: Good air entry bilaterally. ABDOMEN: Soft, non-tender, morbidly obese. Examination of lower extremities shows chronic skin changes. Chronic edema noted. BID WRITER exam is grossly intact. LAB: Labs show sodium 129, potassium 5.9, chloride 90, BUN 65, creatinine 6.76, hemoglobin 9.7 g/dL. ASSESSMENT: 1. End-stage renal disease, on hemodialysis on a Tuesday, , Tuesday schedule. Will arrange for hemodialysis today. Patient uses 1-1/4-inch needles, which are currently not available. We will obtain that from the outpatient dialysis unit. 2. Hyperkalemia. Expect improvement with dialysis. 3. Acute unstable angina versus acute myocardial infarction, status post cardiac catheterization and angioplasty of right coronary artery on an emergency basis. Troponin max was elevated at 0.018 at peak. 4. Anemia of chronic disease. Add Aranesp. 5. Hypertension, currently controlled. PLAN: Hemodialysis today. Goal UF of about 2-3 L as tolerated. One dose of Aranesp today. MMODL / IJN: [id number] /
[2020-10-21] MEDS: INSULIN DETEMIR (LEVEMIR) 100 UNIT/ML SYR SQ SCH (20:49)
[2020-10-21] MEDS: ATORVASTATIN 40 MG TAB PO SCH (20:50)
[2020-10-21] MEDS: lisinopriL 5 MG TAB PO SCH (20:50)
[2020-10-21] MEDS: carvediloL 6.25 MG TAB PO SCH (20:50)
[2020-10-21 21:08] LABS: Glucose,Whole Blood 295 mg/dL (75-99)
[2020-10-22] MEDS: LEVOTHYROXINE 100 MCG TAB PO SCH (07:01)
[2020-10-22] MEDS: CALCIUM ACETATE 667 MG TAB PO SCH ×3 (07:01→17:19)
[2020-10-22 07:06] LABS: Glucose,Whole Blood 175 mg/dL (75-99)
[2020-10-22] MEDS: INSULIN ASPART (NovoLOG) 100 UNIT/ML VIAL SQ SCH ×3 (07:07→17:19)
[2020-10-22] MEDS: HYDROcodone/APAP 7.5-325MG 1 EACH TAB PO PRN (08:06)
[2020-10-22] MEDS: allopurinoL 100 MG TAB PO SCH (10:21)
[2020-10-22] MEDS: ASPIRIN 81 MG PO SCH (10:21)
[2020-10-22] MEDS: LACTULOSE 20 GM/30 ML CUP PO SCH (10:22)
[2020-10-22] MEDS: TICAGRELOR 90 MG TAB PO SCH ×2 (10:24→20:07)
[2020-10-22] MEDS ORDERED: MAGNESIUM HYDROXIDE 2,400 MG/10 ML CUP PO PRN (10:31)
[2020-10-22] MEDS: PREGABALIN 50 MG CAP PO SCH (10:33)
[2020-10-22 10:41] LABS: Basophils # (A) 0.1 k/uL (0-0.2); Basophils % (A) 1 %; Eosinophils # (A) 0.2 k/uL (0-0.7); Eosinophils % (A) 2 %; HGB 9.7 gm/dL (13.0-17.5); Hypochromasia Slight; Lymphocytes # (A) 0.7 k/uL (1.0-4.8); Lymphocytes % (A) 8 %; MCH 31.1 pg (25.0-35.0); MCHC 31.4 g/dL (31.0-37.0); MCV 98.9 fL (80.0-100.0); Macrocytosis Slight; Monocytes # (A) 0.4 k/uL (0-1.0); Monocytes % (A) 5 %; Neutrophils # (A) 7.1 k/uL (1.3-7.7); Neutrophils % (A) 82 %; Platelet Count 231 k/uL (150-450); RBC 3.13 m/uL (4.30-5.90); RDW 15.7 % (11.5-15.5); WBC 8.7 k/uL (3.8-10.6)
[2020-10-22 11:20] LABS: Calcium 8.8 mg/dL (8.4-10.2); Potassium 4.7 mmol/L (3.5-5.1)
[2020-10-22 11:53] LABS: Glucose,Whole Blood 308 mg/dL (75-99)
[2020-10-22] MEDS: MAGNESIUM HYDROXIDE 2,400 MG/10 ML CUP PO PRN ×2 (12:06→17:22)
[2020-10-22] MEDS: HYDROcodone/APAP 10-325MG 1 EACH TAB PO PRN ×2 (13:09→20:06)
--- NOTE | 2020-10-22 13:59 | P.PN ---
Subjective Progress Note Date: 10/22/20 HISTORY OF PRESENT ILLNESS This is a 60-year-old pleasant gentleman patient of Dr. Oshea, Dr. Liz, Dr. Dove with known history of end-stage renal disease on hemodialysis, obstructive sleep apnea on CPAP machine, prostate cancer, under the care of Dr. Marrero , diabetes mellitus type 2, with diabetic retinopathy, hearing loss right ear, hypothyroidism hyperlipidemia hypertension, previous TIA, admitted to the emergency room secondary to chest pain. Patient woke up early in the morning with chest discomfort associated with shortness of breath, and and without dictation of the pain. Patient denies any lightheadedness no dizziness no palpitations, for which patient took some pain medication to relieve the symptoms. Patient rested and went back to sleep, however when awakening the pain remains, and decided to go to the emergency room for which the chest discomfort is still present in the emergency room. Patient was diagnosed to have an acute STEMI, inferior leads. He is given aspirin 325 mg daily, heparin bolus, Patient was sent to the superintendent geophysical laboratory urgent revascularization. Echocardiogram requested, x-ray she shows possible widening of mediastinum, patient currently is in the ICU 10/21: Patient underwent heart catheterization which revealed 95% stenosis involving the mid RCA status post angioplasty. Patient is seen this morning in the intensive care unit. He denies having any chest pain. No cough. No edema. He denies any choking on food. His appetite is good. He is scheduled for hemodialysis today. He has been afebrile, heart rate 93, blood pressure 153/81. Patient is waiting for a bed on the cardiac stepdown unit. Echocardiogram reve als EF of 55-60%, mild tricuspid regurgitation. 10/22: The patient states that Dr. Oshea recently increased his [place] to 10 mg and requesting that this to be done here. He also is asking for milk of magnesia and states his last bowel movement was on Tuesday. Both his request will be ordered. He denies having any chest pain or shortness of breath. No lightheadedness or dizziness. Patient is been afebrile, heart rate 84, blood pressure 106/63, pulse ox 98% on room air. Patient is scheduled for hemodialysis tomorrow morning and plan for discharge home tomorrow. REVIEW OF SYSTEMS At time of evaluation: Constitutional: No fever, no chills, no night sweats. No weight change. No weakness, fatigue or lethargy. No daytime sleepiness. EENT: No headache. No blurred vision or double vision, no loss of vision. No loss of Hearing, no ringing in the ears, no dizziness. No nasal drainage or congestion. No epistaxis. No sore throat. Lungs: No shortness of breath, cough, no sputum production. No wheezing. Cardiovascular: No chest pain, no lower extremity edema. No palpitations. No paroxysmal nocturnal dyspnea. No orthopnea. No lightheadedness or dizziness. No syncopal episodes. Abdominal: No abdominal pain. No nausea, vomiting. No diarrhea. No constipa tion. No bloody or tarry stools. No loss of appetite. Genitourinary: No dysuria, increased frequency, urgency. No urinary retention. Musculoskeletal: No myalgias. No muscle weakness, no gait dysfunction, no frequent falls. No back pain. No neck pain. Integumentary: No wounds, no lesions. No rash or pruritus. No unusual bruising. Neurologic: No aphasia. No facial droop. No change in mentation. No head injury. No headache. No paralysis. No paresthesia. Psychiatric: No depression. No anxiety. No mood swings. Endocrine: No abnormal blood sugars. No weight change. No excessive sweating or thirst. No cold intolerance. PHYSICAL EXAMINATION Gen: This is a 60-year-old morbidly obese male. He is sitting up in bed and appears to be comfortable and in no acute distress. No respiratory distress noted. HEENT: Head is atraumatic, normocephalic. Pupils equal, round. Sclerae is anicteric. NECK: Supple. No JVD. No lymphadenopathy. No thyromegaly. LUNGS: Clear to auscultation. No wheezes or rhonchi. No intercostal retractions. HEART: Regular rate and rhythm. No murmur. ABDOMEN: Soft. Bowel sounds are present. No masses. No tenderness. EXTREMITIES: No pedal edema. No calf tenderness. NEUROLOGICAL: Patient is awake, alert and oriented x3. Cranial nerves 2 through 12 are grossly intact. ASSESSMENT AND PLAN 1. Acute inferior wall myocardial infarction status post heart catheterization and angioplasty of the right coronary artery. 2. Insulin-dependent diabetes mellitus type 2, uncontrolled with hyperglycemia. Continue glipizide 2.5 twice a day, Levemir 55 units at bedtime, Humalog 25 units before meals and at bedtime and sliding scale with Accu-Cheks, A1c 5.2 3. Hypertension. Continue metoprolol 50 mg twice a day, Demadex 40 mg daily 4. End-stage renal disease on hemodialysis, on PhosLo, his [place] 40 mg daily 4. Sleep apnea. Continue CPAP. 5. GERD. Continue Protonix 40 mg 6. Neuropathy. Continue Lyrica 50 mg twice a day and [place] 7.5-325 mg every 6 hours as needed for pain. 7. Hypothyroidism. Continue levothyroxine 100 mg daily. 8. Hyperlipidemia. Continue Lipitor 40 mg daily. 9. History of prostate cancer. Received radiation therapy in September 2016, currently in remission, will continue to monitor. 10. Morbid obesity with history of lap band. 11. Anemia of chronic kidney disease. Continue ferrous sulfate 325 mg by mouth daily. 12. Generalized anxiety disorder. Continue Ativan 0.5 mg twice daily as needed. 13. Diabetes mellitus type 2 with diabetic neuropathy and diabetic retinopathy. On Lyrica and [place] 14. DVT prophylaxis heparin 15. GI prophylaxis Protonix 40 mg. DISCHARGE PLAN Home Impression and plan of care have been directed as dictated by the signing physician. Laine Jones nurse practitioner acting as scribe for signing physician. Objective - Vital Signs Vital signs: Vital Signs Temp 98.2 F 10/22/20 08:00 Pulse 84 10/22/20 08:00 Resp 18 10/22/20 08:00 BP 106/63 10/22/20 08:00 Pulse Ox 98 10/22/20 08:00 Intake & Output 10/21/20 10/22/20 10/22/20 18:59 06:59 18:59 Intake Total 300 300 Output Total 4500 0 Balance -4200 300 Weight 160.8 kg 158.5 kg Intake: Oral 300 300 Output: Urine 0 0 Hemodialysis 4500 Other: Voiding Method Urinal Urinal # Voids 0 0 # Bowel Movements 0 - Labs CBC & Chem 7: 10/22/20 09:21 10/22/20 09:21 Labs: Abnormal Lab Results - Last 24 Hours (Table) 10/21/20 10/21/20 10/21/20 Range/Units 10:41 16:17 17:48 POC Glucose (mg/dL) 206 H 195 H 192 H (75-99) mg/dL 10/21/20 10/22/20 Range/Units 21:06 07:05 POC Glucose (mg/dL) 295 H 175 H (75-99) mg/dL
--- NOTE | 2020-10-22 15:00 | P.PN ---
Subjective Progress Note Date: 10/22/20 CHIEF COMPLAINT: Chest pain HISTORY OF PRESENT ILLNESS: 10/21/2020 This is a 60 year old male with a past medical history significant for end-stage renal disease on hemodialysis Tuesday, hypertension, hyperlipidemia, TIA, and obesity. Patient follows in the office with Dr. Liz. Patient presented to the ER with a chief complaint of chest pain. Patient reports waking up early this morning with chest discomfort and shortness of breath. He denied any radiation of the pain. Denied nausea or vomiting. Denies dizziness or lightheadedness. Patient states he took a pain pill which temporarily relieved his symptoms. He states about an hour later his symptoms returned so he took another pain pill and then went back to sleep. He states his pain returned again so he decided to come to the emergency room. Patient continues to have chest discomfort at time of examination in the ER. 10/22/2020 Patient is status post cardiac catheterization with PCI to the RCA. Patient examined this morning at the bedside. He denies chest pain or pressure. He denies shortness of breath. Right groin is soft without hematoma. Patient underwent hemodialysis yesterday with removal of 4.5 L. Vital signs stable. Echocardiogram completed revealing ejection fraction 55-60% and mild tricuspid regurgitation. PHYSICAL EXAM: VITAL SIGNS: Reviewed. GENERAL: Well-developed in no acute distress. HEENT: Head is normocephalic. Pupils are equal, round. Sclerae anicteric. Mucous membranes of the mouth are moist. Neck supple. No JVD or thyromegaly LUNGS: Respirations even and unlabored. Lungs essentially clear to auscultation bilaterally. HEART: Regular rate and rhythm. S1 and S2 heard. ABDOMEN: Soft. Nondistended. Nontender. EXTREMITIES: Normal range of motion. No clubbing or cyanosis. Peripheral pulses intact. No lower extremity edema. Right groin soft without hematoma. Pulses present. NEUROLOGIC: Awake and alert. Oriented x 3. ASSESSMENT: Acute inferior ST elevated myocardial infarction, status post PCI to RCA End-stage renal disease on hemodialysis Tuesday Hypertension Hyperlipidemia Diabetes mellitus, type II History of TIA Morbid obesity: BMI 47.4 PLAN: Continue current cardiac medications Continue telemetry monitoring Anticipate discharge home tomorrow if patient remains stable. Patient to follow up with Dr. Gundlapalli Nurse practitioner note has been reviewed by physician. Signing provider agrees with the documented findings, assessment, and plan of care. Objective - Vital Signs Vital signs: Vital Signs Temp 98.0 F 10/22/20 11:41 Pulse 79 10/22/20 11:41 Resp 18 10/22/20 11:41 BP 105/55 10/22/20 11:41 Pulse Ox 98 10/22/20 11:41 Intake & Output 10/21/20 10/22/20 10/22/20 18:59 06:59 18:59 Intake Total 300 300 Output Total 4500 0 Balance -4200 300 Weight 160.8 kg 158.5 kg Intake: Oral 300 300 Output: Urine 0 0 Hemodialysis 4500 Other: Voiding Method Urinal Urinal # Voids 0 0 # Bowel Movements 0 - Labs CBC & Chem 7: 10/22/20 09:21 10/22/20 09:21 Labs: Abnormal Lab Results - Last 24 Hours (Table) 10/21/20 10/21/20 10/21/20 Range/Units 16:17 17:48 21:06 RBC (4.30-5.90) m/uL Hgb (13.0-17.5) gm/dL Hct (39.0-53.0) % RDW (11.5-15.5) % Lymphocytes # (1.0-4.8) k/uL Sodium (137-145) mmol/L Chloride (98-107) mmol/L BUN (9-20) mg/dL Creatinine (0.66-1.25) mg/dL Glucose (74-99) mg/dL POC Glucose (mg/dL) 195 H 192 H 295 H (75-99) mg/dL 10/22/20 10/22/20 10/22/20 Range/Units 07:05 09:21 09:21 RBC 3.13 L (4.30-5.90) m/uL Hgb 9.7 L (13.0-17.5) gm/dL Hct 31.0 L (39.0-53.0) % RDW 15.7 H (11.5-15.5) % Lymphocytes # 0.7 L (1.0-4.8) k/uL Sodium 131 L (137-145) mmol/L Chloride 92 L (98-107) mmol/L BUN 38 H (9-20) mg/dL Creatinine 5.55 H (0.66-1.25) mg/dL Glucose 318 H (74-99) mg/dL POC Glucose (mg/dL) 175 H (75-99) mg/dL 10/22/20 Range/Units 11:41 RBC (4.30-5.90) m/uL Hgb (13.0-17.5) gm/dL Hct (39.0-53.0) % RDW (11.5-15.5) % Lymphocytes # (1.0-4.8) k/uL Sodium (137-145) mmol/L Chloride (98-107) mmol/L BUN (9-20) mg/dL Creatinine (0.66-1.25) mg/dL Glucose (74-99) mg/dL POC Glucose (mg/dL) 308 H (75-99) mg/dL
--- NOTE | 2020-10-22 15:06 | PN ---
PROGRESS NOTE The patient is seen for followup for end-stage renal disease. He was dialyzed yesterday, currently doing fairly well. Patient denies any significant complaints. Plans are for discharge tomorrow. PHYSICAL EXAMINATION: On examination today, blood pressure was 106/63, heart rate 84 per minute. Patient is afebrile. Abdomen is soft, obese, nontender. No significant edema noted in lower extremities. 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 The patient appears euvolemic. LABS: Labs show hemoglobin 9.7. Sodium 131, potassium 4.7. ASSESSMENT: 1. End-stage renal disease, on hemodialysis on a Tuesday, , Tuesday schedule. 2. Acute unstable angina, status post cardiac catheterization and coronary stent placement. Troponins did not increase. However, patient had significant acute inferior wall changes suggestive of ongoing myocardial infarction. 3. Chronic kidney disease mineral bone disorder. 4. Anemia of chronic disease. PLAN: Hemodialysis in a.m. prior to discharge. Continue with the phosphate binders. We will try and obtain the proper sized dialysis needles again. We did have extra that patient's had brought however it appears that they have been misplaced. MMODL / IJN: [id number] /
[2020-10-22 16:58] LABS: Glucose,Whole Blood 270 mg/dL (75-99)
[2020-10-22] MEDS: carvediloL 6.25 MG TAB PO SCH (20:06)
[2020-10-22] MEDS: ATORVASTATIN 40 MG TAB PO SCH (20:06)
[2020-10-22] MEDS: lisinopriL 5 MG TAB PO SCH (20:06)
[2020-10-22 20:49] LABS: Glucose,Whole Blood 421 mg/dL (75-99)
[2020-10-22] MEDS ORDERED: TORSEMIDE 20 MG TAB PO SCH (21:00)
[2020-10-22] MEDS ORDERED: INSULIN ASPART (NovoLOG) 100 UNIT/ML VIAL SQ ONE (22:32)
[2020-10-22] MEDS ORDERED: INSULIN DETEMIR (LEVEMIR) 100 UNIT/ML SYR SQ SCH (22:45)
[2020-10-23] MEDS: INSULIN DETEMIR (LEVEMIR) 100 UNIT/ML SYR SQ SCH (00:04)
[2020-10-23] MEDS: INSULIN ASPART (NovoLOG) 100 UNIT/ML VIAL SQ SCH ×3 (00:04→12:44)
[2020-10-23] MEDS: HYDROcodone/APAP 10-325MG 1 EACH TAB PO PRN ×2 (02:32→14:46)
[2020-10-23] MEDS: LEVOTHYROXINE 100 MCG TAB PO SCH (06:59)
[2020-10-23] MEDS: CALCIUM ACETATE 667 MG TAB PO SCH ×2 (06:59→12:43)
[2020-10-23 07:26] LABS: Glucose,Whole Blood 309 mg/dL (75-99)
[2020-10-23 08:52] VITALS: RESP 16
[2020-10-23] MEDS: allopurinoL 100 MG TAB PO SCH (08:53)
[2020-10-23] MEDS: ASPIRIN 81 MG PO SCH (08:53)
[2020-10-23] MEDS: LACTULOSE 20 GM/30 ML CUP PO SCH (08:53)
[2020-10-23] MEDS: TICAGRELOR 90 MG TAB PO SCH (08:54)
[2020-10-23] MEDS: HYDROcodone/APAP 7.5-325MG 1 EACH TAB PO PRN (08:54)
[2020-10-23 11:55] LABS: Glucose,Whole Blood 202 mg/dL (75-99)
--- NOTE | 2020-10-23 12:00 | P.PN ---
Subjective Progress Note Date: 10/23/20 CHIEF COMPLAINT: Chest pain HISTORY OF PRESENT ILLNESS: 10/21/2020 This is a 60 year old male with a past medical history significant for end-stage renal disease on hemodialysis Tuesday, hypertension, hyperlipidemia, TIA, and obesity. Patient follows in the office with Dr. Liz. Patient presented to the ER with a chief complaint of chest pain. Patient reports waking up early this morning with chest discomfort and shortness of breath. He denied any radiation of the pain. Denied nausea or vomiting. Denies dizziness or lightheadedness. Patient states he took a pain pill which temporarily relieved his symptoms. He states about an hour later his symptoms returned so he took another pain pill and then went back to sleep. He states his pain returned again so he decided to come to the emergency room. Patient continues to have chest discomfort at time of examination in the ER. 10/22/2020 Patient is status post cardiac catheterization with PCI to the RCA. Patient examined this morning at the bedside. He denies chest pain or pressure. He denies shortness of breath. Right groin is soft without hematoma. Patient underwent hemodialysis yesterday with removal of 4.5 L. Vital signs stable. Echocardiogram completed revealing ejection fraction 55-60% and mild tricuspid regurgitation. 10/23/2020 Patient examined this morning at the bedside. He denies chest pain or pressure. Denies shortness of breath. Patient is scheduled for hemodialysis this morning. Blood pressure 137/76. Heart rate in the 70s. PHYSICAL EXAM: VITAL SIGNS: Reviewed. GENERAL: Well-developed in no acute distress. HEENT: Head is normocephalic. Pupils are equal, round. Sclerae anicteric. Mucous membranes of the mouth are moist. Neck supple. No JVD or thyromegaly LUNGS: Respirations even and unlabored. Lungs essentially clear to auscultation bilaterally. HEART: Regular rate and rhythm. S1 and S2 heard. ABDOMEN: Soft. Nondistended. Nontender. EXTREMITIES: Normal range of motion. No clubbing or cyanosis. Peripheral p ulses intact. No lower extremity edema. Right groin soft without hematoma. Pulses present. NEUROLOGIC: Awake and alert. Oriented x 3. ASSESSMENT: Acute inferior ST elevated myocardial infarction, status post PCI to RCA End-stage renal disease on hemodialysis Tuesday Hypertension Hyperlipidemia Diabetes mellitus, type II History of TIA Morbid obesity: BMI 47.4 PLAN: Continue current cardiac medications Continue telemetry monitoring Current is stable for discharge home today from a cardiac perspective. Patient to follow up with Dr. Liz Nurse practitioner note has been reviewed by physician. Signing provider agrees with the documented findings, assessment, and plan of care. Objective - Vital Signs Vital signs: Vital Signs Temp 97.7 F 10/23/20 08:12 Pulse 75 10/23/20 08:12 Resp 16 10/23/20 08:12 BP 137/76 10/23/20 08:12 Pulse Ox 99 10/23/20 08:12 Intake & Output 10/22/20 10/23/20 10/23/20 18:59 06:59 18:59 Intake Total 1020 444 Output Total 0 Balance 1020 444 Weight 157.4 kg Intake: Oral 1020 444 Output: Urine 0 Other: Voiding Method Urinal Urinal # Voids 0 0 1 # Bowel Movements 0 0 - Labs CBC & Chem 7: 10/22/20 09:21 10/22/20 09:21 Labs: Abnormal Lab Results - Last 24 Hours (Table) 10/22/20 10/22/20 10/23/20 Range/Units 16:57 20:46 07:24 POC Glucose (mg/dL) 270 H 421 H 309 H (75-99) mg/dL 10/23/20 Range/Units 11:54 POC Glucose (mg/dL) 202 H (75-99) mg/dL
[2020-10-23 12:31] VITALS: BP 122/65; PULSE 73; TEMP 97.3
--- NOTE | 2020-10-23 14:35 | PN ---
PROGRESS NOTE Patient is seen for followup for end-stage renal disease. He was admitted to the hospital with chest pain. Patient had cardiac catheterization and coronary stent placement to RCA. He is scheduled for hemodialysis today following which he will be discharged. PHYSICAL EXAMINATION: On examination today, blood pressure was 137/76, heart rate 75 per minute. He is afebrile. EXAMINATION OF THE HEART: S1, S2. EXAMINATION OF THE LUNGS: Bilateral breath sounds are heard. Abdomen is soft, nontender. Examination of lower extremities shows no evidence of edema. Chronic skin changes noted. 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 LABS: Labs show hemoglobin was 9.7 yesterday 10/22/2020, potassium 4.7. ASSESSMENT: 1. End-stage renal disease, on hemodialysis on a Tuesday, , Tuesday schedule. 2. Acute myocardial infarction/acute unstable angina, status post cardiac catheterization and coronary stent placement to RCA with evolving inferior wall myocardial infarction. Troponin, however, did not increase. 3. Chronic kidney disease mineral bone disorder. 4. Hypertension. 5. Obesity. PLAN: Patient can be discharged post hemodialysis today. His had to bring the needles again as patient uses a different size of the needles for dialysis. MMODL / IJN: [id number] /
--- NOTE | 2020-10-25 13:11 | P.DS ---
Providers Date of admission: 10/20/20 14:25 Expected date of discharge: 10/23/20 Attending physician: Cherrie May Consults: 10/20/20 14:26 Consult Physician Stat Consulting Provider: Abdirahman Mcdaniels Consult Reason/Comments: stemi Do you want consulting provider notified?: Already Contacted 10/20/20 15:51 Consult Physician Routine Consulting Provider: [facility] Consult Reason/Comments: Post Interventional patient Do you want consulting provider notified?: Already Contacted 10/20/20 19:26 Consult Physician Routine Consulting Provider: Shira Hess Consult Reason/Comments: hemodialysis patient Do you want consulting provider notified?: Yes Primary care physician: Hayes Oshea [facility] Course: HISTORY OF PRESENT ILLNESS This is a 60-year-old pleasant gentleman patient of Dr. Oshea, Dr. Liz, Dr. Dove with known history of end-stage renal disease on hemodialysis, obstructive sleep apnea on CPAP machine, prostate cancer, under the care of Dr. Marrero , diabetes mellitus type 2, with diabetic retinopathy, hearing loss right ear, hypothyroidism hyperlipidemia hypertension, previous TIA, admitted to the emergency room secondary to chest pain. Patient woke up early in the morning with chest discomfort associated with shortness of breath, and and without dictation of the pain. Patient denies any lightheadedness no dizziness no palpitations, for which patient took some pain medication to relieve the symptoms. Patient rested and went back to sleep, however when awakening the pain remains, and decided to go to the emergency room for which the chest discomfort is still present in the emergency room. Patient was diagnosed to have an acute STEMI, inferior leads. He is given aspirin 325 mg daily, heparin bolus, Patient was sent to the cardiac cath technologist urgent revascularization. Echocardiogram requested, x-ray she shows possible widening of mediastinum, patient currently is in the ICU 10/21: Patient underwent heart catheterization which revealed 95% stenosis involving the mid RCA status post angioplasty. Patient is seen this morning in the intensive care unit. He denies having any chest pain. No cough. No edema. He denies any choking on food. His appetite is good. He is scheduled for hemodialysis today. He has been afebrile, heart rate 93, blood pressure 153/81. Patient is waiting for a bed on the cardiac stepdown unit. Echocardiogram reveals EF of 55-60%, mild tricuspid regurgitation. 10/22: The patient states that Dr. Oshea recently increased his [place] to 10 mg and requesting that this to be done here. He also is asking for milk of magnesia and states his last bowel movement was on Tuesday. Both his request will be ordered. He denies having any chest pain or shortness of breath. No l ightheadedness or dizziness. Patient is been afebrile, heart rate 84, blood pressure 106/63, pulse ox 98% on room air. Patient is scheduled for hemodialysis tomorrow morning and plan for discharge home tomorrow. 10/23: She has been afebrile, heart rate 75, blood pressure 137/76, pulse ox 99% on room air. Blood sugars remain elevated for which she is long acting and short acting insulins will be increased for home. He has been seen by cardiology and plans for discharge home today. Patient is scheduled for hemodialysis and will be discharged following that. Patient will be discharged in stable condition. ASSESSMENT AND PLAN 1. Acute inferior wall myocardial infarction status post heart catheterization and angioplasty of the right coronary artery. 2. Insulin-dependent diabetes mellitus type 2, uncontrolled with hyperglycemia. 3. Hypertension. 4. End-stage renal disease on hemodialysis 4. Sleep apnea. 5. GERD. 6. Neuropathy. 7. Hypothyroidism. 8. Hyperlipidemia. 9. History of prostate cancer. Received radiation therapy in September 2016, currently in remission. 10. Morbid obesity with history of lap band. 11. Anemia of chronic kidney disease. 12. Generalized anxiety disorder. 13. Diabetes mellitus type 2 with diabetic neuropathy and diabetic retinopathy. DISCHARGE PLAN Home Impression and plan of care have been directed as dictated by the signing physician. Laine Jones nurse practitioner acting as scribe for signing physician. Patient Condition at Discharge: Good Plan - Discharge Summary New Discharge Prescriptions: New Ticagrelor [Brilinta] 90 mg PO BID #60 tab Aspirin 81 mg PO DAILY #90 chew Nitroglycerin Sl Tabs [Nitrostat] 0.4 mg SUBLINGUAL Q5M PRN #25 tab PRN Reason: Chest Pain Calcium Acetate [PhosLo] 1,334 mg PO TID-W/MEALS tab Continue Atorvastatin [Lipitor] 40 mg PO HS HYDROcodone/APAP 7.5-325MG [[place] 7.5-325] 1 tab PO QID Levothyroxine Sodium 100 mcg PO HS Lactulose [Cephulac] 30 gm PO DAILY #0 ml Torsemide [Demadex] 40 mg PO HS [place] 1 tab PO HS lisinopriL [Zestril] 5 mg PO HS Carvedilol [Coreg] 6.25 mg PO HS Magnebind 300mg 1 tab PO BID Allopurinol [Zyloprim] 300 mg PO HS Magnesium Hydroxide [Milk of Magnesia] 2,400 mg PO DAILY PRN PRN Reason: Constipation Changed Insulin Detemir [Levemir Flextouch] 65 units SQ HS #0 Insulin Aspart [NovoLOG Flexpen] 30 units SQ AC-TID #0 Discharge Medication List Atorvastatin [Lipitor] 40 mg PO HS 08/07/14 [History] HYDROcodone/APAP 7.5-325MG [[place] 7.5-325] 1 tab PO QID 11/09/16 [History] Levothyroxine Sodium 100 mcg PO HS 07/06/17 [History] Lactulose [Cephulac] 30 gm PO DAILY #0 ml 10/24/18 [Rx] Torsemide [Demadex] 40 mg PO HS 09/10/19 [History] Allopurinol [Zyloprim] 300 mg PO HS 10/20/20 [History] Carvedilol [Coreg] 6.25 mg PO HS 10/20/20 [History] Magnebind 300mg 1 tab PO BID 10/20/20 [History] Magnesium Hydroxide [Milk of Magnesia] 2,400 mg PO DAILY PRN 10/20/20 [History] [place] 1 tab PO HS 10/20/20 [History] lisinopriL [Zestril] 5 mg PO HS 10/20/20 [History] Aspirin 81 mg PO DAILY #90 chew 10/22/20 [Rx] Ticagrelor [Brilinta] 90 mg PO BID #60 tab 10/22/20 [Rx] Calcium Acetate [PhosLo] 1,334 mg PO TID-W/MEALS tab 10/23/20 [Rx] Insulin Aspart [NovoLOG Flexpen] 30 units SQ AC-TID #0 10/23/20 [Rx] Insulin Detemir [Levemir Flextouch] 65 units SQ HS #0 10/23/20 [Rx] Nitroglycerin Sl Tabs [Nitrostat] 0.4 mg SUBLINGUAL Q5M PRN #25 tab 10/23/20 [Rx] Follow up Appointment(s)/Referral(s): Rehab [facility],Cardiac [NON-STAFF] - 1 Week (After discharge, you will follow- up with your sales teacher. Once you have obtained a prescription for cardiac rehab, please call [phone] to set up an evaluation.) Hayes Oshea MD [Primary Care Provider] - 10/29/20 3:45 pm Malu Liz MD [STAFF PHYSICIAN] - 10/31/20 3:15 pm Patient Instructions/Handouts: *Surgery [facility] - After Heart Catheterization - Independent Driver Instructions, Safe Use of Antiplatelet Medication (DC) Discharge Disposition: HOME SELF-CARE
== END 2020-10-23 15:57 | disposition home or self-care (01) | DRG 246 ==
LOC: EC 13:42 → 2SICU 14:25 → 3SCARD 10-21 22:35
PROVIDERS: ADMIT Family Medicine; ATTEND Family Medicine
PROC: 027135Z Dilation of Coronary Artery, Two Arteries with Two Drug-eluting Intraluminal Devices, Percutaneous Approach (ICD-10-PCS; principal; 2020-10-20 18:55)
PROC: 4A023N7 Measurement of Cardiac Sampling and Pressure, Left Heart, Percutaneous Approach (ICD-10-PCS; 2020-10-21)
PROC: B2111ZZ Fluoroscopy of Multiple Coronary Arteries using Low Osmolar Contrast (ICD-10-PCS; 2020-10-21)
PROC: 5A1D70Z Performance of Urinary Filtration, Intermittent, Less than 6 Hours Per Day (ICD-10-PCS; 2020-10-21)
DX: I21.19 ST elevation (STEMI) myocardial infarction involving other coronary artery of inferior wall (principal); N18.6 End stage renal disease; Z68.42 Body mass index [BMI] 45.0-49.9, adult; I12.0 Hypertensive chronic kidney disease with stage 5 chronic kidney disease or end stage renal disease; M89.9 Disorder of bone, unspecified; K21.9 Gastro-esophageal reflux disease without esophagitis; H91.91 Unspecified hearing loss, right ear; G47.30 Sleep apnea, unspecified; F41.1 Generalized anxiety disorder; E87.5 Hyperkalemia; E78.5 Hyperlipidemia, unspecified; E66.01 Morbid (severe) obesity due to excess calories; E11.65 Type 2 diabetes mellitus with hyperglycemia; E11.40 Type 2 diabetes mellitus with diabetic neuropathy, unspecified; E11.319 Type 2 diabetes mellitus with unspecified diabetic retinopathy without macular edema; E11.22 Type 2 diabetes mellitus with diabetic chronic kidney disease; D63.1 Anemia in chronic kidney disease; B35.9 Dermatophytosis, unspecified; E03.9 Hypothyroidism, unspecified; Z99.2 Dependence on renal dialysis; Z98.84 Bariatric surgery status; Z95.5 Presence of coronary angioplasty implant and graft; Z92.3 Personal history of irradiation; Z86.73 Personal history of transient ischemic attack (TIA), and cerebral infarction without residual deficits; Z85.46 Personal history of malignant neoplasm of prostate; Z83.3 Family history of diabetes mellitus; Z82.49 Family history of ischemic heart disease and other diseases of the circulatory system; Z82.3 Family history of stroke; Z82.0 Family history of epilepsy and other diseases of the nervous system; Z79.899 Other long term (current) drug therapy; Z79.890 Hormone replacement therapy; Z79.82 Long term (current) use of aspirin; Z79.4 Long term (current) use of insulin; I25.2 Old myocardial infarction
CPT/HCPCS: 36415; 71045; 80048; 80053; 82550; 83735; 83880; 84484; 85025; 85610; 85730; 86706; 87340; 90935; 93005; 93306; 93458; 96374; 99285

== ENCOUNTER 2020-11-24 18:49 | Inpatient (IN) | payer MEDICARE, BC ==
[2020-11-24] MEDS ORDERED: NITROGLYCERIN OINT 1 INCH/GM PACKET TOPICAL STA (19:21)
[2020-11-24] MEDS ORDERED: ASPIRIN 81 MG PO STA (19:21)
--- NOTE | 2020-11-24 19:31 | ED ---
General Adult HPI - General Chief complaint: Chest Pain Stated complaint: chest pain Time Seen by Provider: 11/24/20 19:05 Source: patient, RN notes reviewed, old records reviewed Mode of arrival: wheelchair - History of Present Illness Initial comments: This is a 60-year-old male who has a past medical history significant for a recent [place]. Patient also is a dialysis patient has diabetes high blood pressure high cholesterol. Patient states the pain eased experiencing today is similar to the pain he had when he came in before and had a heart attack. Patient states the pain started this morning about 10:30 but got progressively worse throughout the day and is particularly worse when he woke up from a nap this afternoon. Patient states she's also short of breath per patient denies any diaphoretic episodes patient denies any nausea. Patient denies any radiation of the pain to the back neck or arm. Patient states this is the same type of pain he had a few weeks ago. Patient denies any recent fever chills or cough. Patient denies any abdominal pain patient denies nausea vomiting diarrhea. - Related Data Home Medications Medication Instructions Recorded Confirmed Atorvastatin [Lipitor] 40 mg PO HS 08/07/14 10/20/20 HYDROcodone/APAP 7.5-325MG [[place] 1 tab PO QID 11/09/16 10/20/20 7.5-325] Levothyroxine Sodium 100 mcg PO HS 07/06/17 10/20/20 Torsemide [Demadex] 40 mg PO HS 09/10/19 10/20/20 Allopurinol [Zyloprim] 300 mg PO HS 10/20/20 10/20/20 Carvedilol [Coreg] 6.25 mg PO HS 10/20/20 10/20/20 Magnebind 300mg 1 tab PO BID 10/20/20 10/20/20 Magnesium Hydroxide [Milk of 2,400 mg PO DAILY PRN 10/20/20 10/20/20 Magnesia] Bryanna-Olimpia 1 tab PO HS 10/20/20 10/20/20 lisinopriL [Zestril] 5 mg PO HS 10/20/20 10/20/20 Previous Rx's Medication Instructions Recorded Lactulose [Cephulac] 30 gm PO DAILY #0 ml 10/24/18 Aspirin 81 mg PO DAILY #90 chew 02/10/21 Ticagrelor [Brilinta] 90 mg PO BID #60 tab 10/22/20 Calcium Acetate [PhosLo] 1,334 mg PO TID-W/MEALS tab 10/23/20 Insulin Aspart [NovoLOG Flexpen] 30 units SQ AC-TID #0 10/23/20 Insulin Detemir [Levemir Flextouch] 65 units SQ HS #0 10/23/20 Nitroglycerin Sl Tabs [Nitrostat] 0.4 mg SUBLINGUAL Q5M PRN #25 tab 10/23/20 Allergies Allergy/AdvReac Type Severity Reaction Status Date / Time No Known Allergies Allergy Verified 11/24/20 19:05 Review of Systems ROS Statement: Those systems with pertinent positive or pertinent negative responses have been documented in the HPI. ROS Other: All systems not noted in ROS Statement are negative. 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 pt on dialysis tuesday, , Tuesday History of Any Multi-Drug Resistant Organisms: None Reported Past Surgical History: Adenoidectomy, Bariatric Surgery, Cholecystectomy, Heart Catheterization, Heart Catheterization With Stent, Tonsillectomy Additional Past Surgical History / Comment(s): FX of right ankle repair pins / plate, fistual lt arm jul 2018 has'nt started dialysis, lt shoulder sx (d/t separation) Past Anesthesia/Blood Transfusion Reactions: Motion Sickness Additional Past Anesthesia/Blood Transfusion Reaction / Comment(s): CLAUSTERPHOBIA Past Psychological History: Anxiety Smoking Status: Never smoker Past Alcohol Use History: Rare Past Drug Use History: None Reported - Past Family History Mother History Unknown: Yes Family Medical History: Coronary Artery Disease (CAD), Diabetes Mellitus, Myocardial Infarction ([place]) Additional Family Medical History / Comment(s): Mother at age 58 from multiple sclerosis Father Family Medical History: CVA/TIA, Myocardial Infarction ([place]) Additional Family Medical History / Comment(s): Father had history of [place] and CVA followed by a second [place] and CVA and at age 65. Brother(s) Additional Family Medical History / Comment(s): . General Exam - General Exam Comments Initial Comments: GENERAL: Patient is well-developed and well-nourished. Patient is nontoxic and well- hydrated and is in mild distress. ENT: Neck is soft and supple. No significant lymphadenopathy is noted. Oropharynx is clear. Moist mucous membranes. Neck has full range of motion without eliciting any pain. EYES: The sclera were anicteric and conjunctiva were pink and moist. Extraocular movements were intact and pupils were equal round and reactive to light. Eyelids were unremarkable. PULMONARY: Unlabored respirations. Good breath sounds bilaterally. No audible rales rhonchi or wheezing was noted. CARDIOVASCULAR: There is a regular rate and rhythm without any murmurs gallops or rubs. ABDOMEN: Soft and nontender with normal bowel sounds. SKIN: Skin is clear with no lesions or rashes and otherwise unremarkable. NEUROLOGIC: Patient is alert and oriented x3. Cranial nerves II through XII are grossly intact. Motor and sensory are also intact. Normal speech, volume and content. Symmetrical smile. MUSCULOSKELETAL: Normal extremities with adequate strength and full range of motion. LYMPHATICS: No significant lymphadenopathy is noted PSYCHIATRIC: Normal psychiatric evaluation. Course Vital Signs 11/24/20 19:03 Temperature 98.1 F Pulse Rate 92 Respiratory 18 Rate Blood Pressure 182/73 O2 Sat by Pulse 98 Oximetry Medical Decision Making - Medical Decision Making EKG shows normal sinus rhythm at 90 bpm LA interval 178 QRSs 90 QT intervals 354 QTC is 433 per patient's EKG shows no ST segment elevation or depression. Chest x-ray shows no acute abnormality. I started the patient heparin for unstable angina. I spoke with Dr. Jimenez he agreed to admit the patient admitted the patient wrote admitting orders I consulted cardiology. I continue the aspirin and Nitropaste and heparin on the floor. - Lab Data Result diagrams: 11/24/20 19:24 11/24/20 19:24 Lab Results 11/24/20 11/24/20 11/24/20 Range/Units 19:24 19:24 19:24 WBC 11.9 H (3.8-10.6) k/uL RBC 3.30 L (4.30-5.90) m/uL Hgb 10.5 L (13.0-17.5) gm/dL Hct 31.6 L (39.0-53.0) % MCV 95.7 (80.0-100.0) fL MCH 31.8 (25.0-35.0) pg MCHC 33.3 (31.0-37.0) g/dL RDW 15.4 (11.5-15.5) % Plt Count 209 (150-450) k/uL MPV 7.1 Neutrophils % 82 % Lymphocytes % 9 % Monocytes % 5 % Eosinophils % 2 % Basophils % 1 % Neutrophils # 9.8 H (1.3-7.7) k/uL Lymphocytes # 1.1 (1.0-4.8) k/uL Monocytes # 0.6 (0-1.0) k/uL Eosinophils # 0.2 (0-0.7) k/uL Basophils # 0.1 (0-0.2) k/uL PT 9.4 (9.0-12.0) sec INR 0.8 (<1.2) APTT 23.6 (22.0-30.0) sec Sodium 130 L (137-145) mmol/L Potassium 5.7 H (3.5-5.1) mmol/L Chloride 83 L (98-107) mmol/L Carbon Dioxide 35 H (22-30) mmol/L Anion Gap 12 mmol/L BUN 57 H (9-20) mg/dL Creatinine 7.28 H* (0.66-1.25) mg/dL Est GFR (CKD-EPI)AfAm 9 (>60 ml/min/1.73 sqM) Est GFR (CKD-EPI)NonAf 7 (>60 ml/min/1.73 sqM) Glucose 430 H (74-99) mg/dL Calcium 9.4 (8.4-10.2) mg/dL Magnesium 4.1 H (1.6-2.3) mg/dL Total Bilirubin 0.4 (0.2-1.3) mg/dL AST 18 (17-59) U/L ALT 19 (4-49) U/L Alkaline Phosphatase 126 (38-126) U/L Troponin I (0.000-0.034) ng/mL NT-Pro-B Natriuret Pep pg/mL Total Protein 7.2 (6.3-8.2) g/dL Albumin 4.1 (3.5-5.0) g/dL Coronavirus (PCR) (Not Detectd) 11/24/20 11/24/20 11/24/20 Range/Units 19:24 19:24 19:27 WBC (3.8-10.6) k/uL RBC (4.30-5.90) m/uL Hgb (13.0-17.5) gm/dL Hct (39.0-53.0) % MCV (80.0-100.0) fL MCH (25.0-35.0) pg MCHC (31.0-37.0) g/dL RDW (11.5-15.5) % Plt Count (150-450) k/uL MPV Neutrophils % % Lymphocytes % % Monocytes % % Eosinophils % % Basophils % % Neutrophils # (1.3-7.7) k/uL Lymphocytes # (1.0-4.8) k/uL Monocytes # (0-1.0) k/uL Eosinophils # (0-0.7) k/uL Basophils # (0-0.2) k/uL PT (9.0-12.0) sec INR (<1.2) APTT (22.0-30.0) sec Sodium (137-145) mmol/L Potassium (3.5-5.1) mmol/L Chloride (98-107) mmol/L Carbon Dioxide (22-30) mmol/L Anion Gap mmol/L BUN (9-20) mg/dL Creatinine (0.66-1.25) mg/dL Est GFR (CKD-EPI)AfAm (>60 ml/min/1.73 sqM) Est GFR (CKD-EPI)NonAf (>60 ml/min/1.73 sqM) Glucose (74-99) mg/dL Calcium (8.4-10.2) mg/dL Magnesium (1.6-2.3) mg/dL Total Bilirubin (0.2-1.3) mg/dL AST (17-59) U/L ALT (4-49) U/L Alkaline Phosphatase (38-126) U/L Troponin I <0.012 (0.000-0.034) ng/mL NT-Pro-B Natriuret Pep 1490 pg/mL Total Protein (6.3-8.2) g/dL Albumin (3.5-5.0) g/dL Coronavirus (PCR) Not Detected (Not Detectd) Critical Care Time Critical Care Time: Yes Total Critical Care Time: 35 Disposition Clinical Impression: Unstable angina pectoris Disposition: ADMITTED IP TO THIS HOSP Referrals: Hayes Oshea MD [Primary Care Provider] - 1-2 days Time of Disposition: 20:14
[2020-11-24 19:40] LABS: Basophils # (A) 0.1 k/uL (0-0.2); Basophils % (A) 1 %; Eosinophils # (A) 0.2 k/uL (0-0.7); Eosinophils % (A) 2 %; HCT 31.6 % (39.0-53.0); HGB 10.5 gm/dL (13.0-17.5); Lymphocytes # (A) 1.1 k/uL (1.0-4.8); Lymphocytes % (A) 9 %; MCH 31.8 pg (25.0-35.0); MCHC 33.3 g/dL (31.0-37.0); MCV 95.7 fL (80.0-100.0); Mean Platelet Volume 7.1; Monocytes # (A) 0.6 k/uL (0-1.0); Monocytes % (A) 5 %; Neutrophils # (A) 9.8 k/uL (1.3-7.7); Neutrophils % (A) 82 %; Platelet Count 209 k/uL (150-450); RDW 15.4 % (11.5-15.5); WBC 11.9 k/uL (3.8-10.6)
--- NOTE | 2020-11-24 19:50 | XR ---
EXAMINATION TYPE: XR chest 2V DATE OF EXAM: 11/24/2020 COMPARISON: 10/20/2020 HISTORY: Chest pain TECHNIQUE: FINDINGS: There is no heart failure nor confluent pneumonic infiltrate. Costophrenic angles are clear . There are chest leads. Bony thorax is intact. IMPRESSION: No active cardiopulmonary disease. No change.
[2020-11-24 19:51] LABS: INR 0.8 (<1.2); Partial Thromboplastin Time 23.6 sec (22.0-30.0); Prothrombin Time 9.4 sec (9.0-12.0)
[2020-11-24 20:00] LABS: Albumin 4.1 g/dL (3.5-5.0); Calcium 9.4 mg/dL (8.4-10.2); Magnesium 4.1 mg/dL (1.6-2.3); Potassium 5.7 mmol/L (3.5-5.1); Total Bilirubin 0.4 mg/dL (0.2-1.3); Total Protein 7.2 g/dL (6.3-8.2)
[2020-11-24] MEDS ORDERED: HEPARIN SODIUM,PORCINE 5,000 UNIT/ML 1 ML VIAL IV ONE (20:13)
[2020-11-24] MEDS ORDERED: NITROGLYCERIN SL TABS 0.4 MG TAB SUBLINGUAL PRN ×2 (20:15→23:14)
[2020-11-24] MEDS: HEPARIN SOD,PORK IN 0.45% NACL 25,000 UNIT in 0.45% NACL 1 250ML.BAG IV SCH (20:55)
[2020-11-24] MEDS ORDERED: CALCIUM CARBONATE 500 MG CHEWABLE PO PRN (23:14)
[2020-11-25] MEDS: HYDROcodone/APAP 10-325MG 1 EACH TAB PO PRN ×3 (01:39→21:14)
[2020-11-25] MEDS: NITROGLYCERIN OINT 1 INCH/GM PACKET TOPICAL SCH ×5 (01:40→23:55)
[2020-11-25 04:17] LABS: Cholesterol 125 mg/dL (<200); HDL Cholesterol 25 mg/dL (40-60); LDL Cholesterol,Calculated 22 mg/dL (0-99); Triglycerides 390 mg/dL (<150)
[2020-11-25] MEDS: INSULIN REGULAR 100 UNIT/ML VIAL SQ SCH ×3 (07:54→20:34)
[2020-11-25] MEDS: CALCIUM ACETATE 667 MG TAB PO SCH ×3 (07:56→18:20)
[2020-11-25 08:02] LABS: Glucose,Whole Blood 432 mg/dL (75-99)
[2020-11-25] MEDS ORDERED: ASPIRIN 325 MG TAB PO SCH (09:00)
[2020-11-25] MEDS ORDERED: LACTULOSE 20 GM/30 ML CUP PO PRN (09:00)
[2020-11-25] MEDS ORDERED: MAGNESIUM HYDROXIDE 2,400 MG/10 ML CUP PO PRN (09:00)
[2020-11-25] MEDS ORDERED: MAGNEBIND PO SCH (09:00)
[2020-11-25] MEDS: CLOPIDOGREL 75 MG TAB PO SCH (09:06)
[2020-11-25] MEDS: ASPIRIN 81 MG PO SCH (09:06)
[2020-11-25] MEDS ORDERED: INSULIN DETEMIR (LEVEMIR) 100 UNIT/ML SYR SQ SCH ×2 (11:00→21:00)
--- NOTE | 2020-11-25 11:10 | P.NPCON ---
History of Present Illness - Reason for Consult end stage renal disease - History of Present Illness Reason for consultation: End-stage renal disease History of present illness: Patient is a 60-year-old male seen in consultation for end-stage renal disease. He is maintained on hemodialysis on Tuesday schedule. Patient presented to the hospital with chest pain. Patient states he's been having chest pressure which is similar to how he felt when he had an CA a few weeks ago. Patient states he had 2 cardiac stents placed about 6 weeks ago. He denies shortness of breath. He is scheduled to undergo dialysis today. No vomiting or diarrhea. Blood pressure is stable. No active cardiopulmonary disease noted on chest x-ray. Denies fever or chills. He has been seen by cardiology and is scheduled to undergo echocardiogram today. He is maintained on heparin drip. Patient has long-standing history of diabetes mellitus. Patient's magnesium level was elevated at 4.1 on admission. He does take milk of magnesia for constipation. Vital signs are stable. General: The patient appeared well nourished and normally developed. HEENT: Head exam is unremarkable. Neck is without jugular venous distension. LUNGS: Breath sounds decreased. HEART: Rate and Rhythm are regular. ABDOMEN: Soft, nontender. Obese. EXTREMITITES: No edema. 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 pt on dialysis tuesday, , Tuesday History of Any Multi-Drug Resistant Organisms: None Reported Past Surgical History: Adenoidectomy, Bariatric Surgery, Cholecystectomy, Heart Catheterization, Heart Catheterization With Stent, Tonsillectomy Additional Past Surgical History / Comment(s): FX of right ankle repair pins / plate, fistual lt arm jul 2018 has'nt started dialysis, lt shoulder sx (d/t separation) Past Anesthesia/Blood Transfusion Reactions: Motion Sickness Additional Past Anesthesia/Blood Transfusion Reaction / Comment(s): CLAUSTERPHOBIA Past Psychological History: Anxiety Smoking Status: Never smoker Past Alcohol Use History: Rare Past Drug Use History: None Reported - Past Family History Mother History Unknown: Yes Family Medical History: Coronary Artery Disease (CAD), Diabetes Mellitus, Myocardial Infarction ([place]) Additional Family Medical History / Comment(s): Mother at age 58 from multiple sclerosis Father Family Medical History: CVA/TIA, Myocardial Infarction ([place]) Additional Family Medical History / Comment(s): Father had history of CA and CVA followed by a second CA and CVA and at age 65. Brother(s) Additional Family Medical History / Comment(s): . Medications and Allergies Home Medications Medication Instructions Recorded Confirmed Type Atorvastatin [Lipitor] 40 mg PO HS 08/07/14 11/24/20 History Levothyroxine Sodium 100 mcg PO HS 07/06/17 11/24/20 History Torsemide [Demadex] 40 mg PO HS 09/10/19 11/24/20 History Allopurinol [Zyloprim] 300 mg PO HS 10/20/20 11/24/20 History Carvedilol [Coreg] 6.25 mg PO HS 10/20/20 11/24/20 History Magnebind 300mg 1 tab PO BID 10/20/20 11/24/20 History Magnesium Hydroxide [Milk of 2,400 mg PO DAILY PRN 10/20/20 11/24/20 History Magnesia] Bryanna-Olimpia 1 tab PO HS 10/20/20 11/24/20 History lisinopriL [Zestril] 5 mg PO HS 10/20/20 11/24/20 History Aspirin 81 mg PO DAILY #90 chew 10/22/20 11/24/20 Rx Calcium Acetate [PhosLo] 1,334 mg PO TID-W/MEALS tab 10/23/20 11/24/20 Rx Nitroglycerin Sl Tabs [Nitrostat] 0.4 mg SUBLINGUAL Q5M PRN #25 tab 10/23/20 11/24/20 Rx Calcium Carbonate [Tums Ultra 2,354 mg PO AC-BID PRN 11/24/20 11/24/20 History Strength] Clopidogrel Bisulfate [Plavix] 75 mg PO DAILY 11/24/20 11/24/20 History HYDROcodone/APAP 10-325MG [[place] 1 tab PO QID PRN 11/24/20 11/24/20 History 10-325] Insulin Detemir [Levemir Flextouch] 60 units SQ HS 11/24/20 11/24/20 History Insulin Regular, Human [Novolin R 30 unit SQ AC-TID 11/24/20 11/24/20 History Flexpen] Lactulose [Cephulac] 30 gm PO DAILY PRN 11/24/20 11/24/20 History Allergies Allergy/AdvReac Type Severity Reaction Status Date / Time No Known Allergies Allergy Verified 11/24/20 20:30 Physical Exam Vitals: Vital Signs Temp Pulse Resp BP Pulse Ox 11/25/20 08:01 89 16 123/86 99 11/25/20 04:24 76 22 118/74 97 11/25/20 01:43 80 18 125/87 95 11/24/20 22:23 97.9 F 87 18 144/90 97 11/24/20 20:57 86 18 162/71 98 11/24/20 19:03 98.1 F 92 18 182/73 98 Intake and Output 11/24/20 11/25/20 11/25/20 22:59 06:59 14:59 Intake Total 88.833 Balance 88.833 Intake: Intake, IV Titration 88.833 Amount Heparin Sod,Pork in 0.45% 88.833 NaCl 25,000 unit In 0.45 % NaCl 1 250ml.bag @ 6. 317 UNITS/KG/HR 10 mls/hr IV .Q24H [facility] Rx#: [id number] Other: Weight 158.304 kg Results - Lab Results Most recent lab results Calcium 9.4 mg/dL (8.4-10.2) 11/24/20 19:24 Magnesium 4.1 mg/dL (1.6-2.3) H 11/24/20 19:24 11/24/20 19:24 11/24/20 19:24 Assessment and Plan Plan: Assessment: 1. End-stage renal disease maintained on hemodialysis on Tuesday schedule. 2. Chest pain with history of coronary artery disease. Maintain on heparin drip. Cardiology following. 3. Chronic kidney disease mineral bone disease maintained on PhosLo. 4. Diabetes mellitus. 5. Hypertension with chronic kidney disease. Stable. 6. Hyponatremia secondary to chronic kidney disease and hyperglycemia. 7. Mild hyperkalemia secondary to chronic kidney disease and lisinopril. Also component of hyperglycemia. 8. Hypomagnesemia secondary to milk of magnesia and magnebind. Plan: Hemodialysis today. Stop milk of magnesia and magnebind. Tight blood sugar control. Follow-up echocardiogram. Maintain torsemide. Check potassium level now. Thank you for the consultation. I will continue to follow the patient with you during his hospital stay.
--- NOTE | 2020-11-25 12:00 | ECHOF ---
Referral Reason:LV function MEASUREMENTS -------- HEIGHT: 180.3 cm WEIGHT: 158.3 kg BP: 123/86 RVIDd: 3.5 cm (< 3.3) IVSd: 1.6 cm (0.6 - 1.1) LVIDd: 4.8 cm (3.9 - 5.3) LVPWd: 1.6 cm (0.6 - 1.1) IVSs: 2.6 cm LVIDs: 3.6 cm LVPWs: 2.1 cm LA Diam: 3.8 cm (2.7 - 3.8) LAESV Index (A-L): 26.36 ml/m Ao Diam: 3.7 cm (2.0 - 3.7) AV Cusp: 2.0 cm (1.5 - 2.6) MV E Kenny: 1.17 m/s MV DecT: 279 ms MV A Kenny: 0.99 m/s MV E/A Ratio: 1.18 RAP: 5.00 mmHg RVSP: 38.78 mmHg FINDINGS -------- This was a technically difficult study with suboptimal views. The left ventricular size is normal. There is moderate concentric left ventricular hypertrophy. O verall left ventricular systolic function is normal with, an EF between 60 - 65 %. The diastolic fi lling pattern is normal for the age of the patient 11.95. The right ventricle is mildly enlarged. Normal LA size by volume 22+/-6 ml/m2. The right atrium is normal in size. 3 ml of Lumason was utilized for enhancement of images. Interatrial and interventricular septum intact. The aortic valve is trileaflet and appears structurally normal. The mitral valve leaflets are mildly thickened. Mild mitral annular calcification present. Mild tricuspid regurgitation present. Right ventricular systolic pressure is normal at < 35 mmHg. The pulmonic valve was not well visualized. The aortic root size is normal. Normal inferior vena cava with normal inspiratory collapse consistent with estimated right atrial pre ssure of 5 mmHg. There is a small pericardial effusion located near the left ventricle. CONCLUSIONS -------- 1. The left ventricular size is normal. 2. There is moderate concentric left ventricular hypertrophy. 3. Overall left ventricular systolic function is normal with, an EF between 60 - 65 %. 4. The diastolic filling pattern is normal for the age of the patient 11.95 5. The right ventricle is mildly enlarged. 6. 3 ml of Lumason was utilized for enhancement of images. 7. The mitral valve leaflets are mildly thickened. 8. Mild mitral annular calcification present. 9. Mild tricuspid regurgitation present. 10. There is a small pericardial effusion located near the left ventricle. MARKETING SYSTEMS ANALYST: Sharita Navarro RDCS
--- NOTE | 2020-11-25 12:02 | P.CRDCN ---
History of Present Illness Consult date: 11/25/20 History of present illness: HISTORY OF PRESENT ILLNESS: This is a 60-year-old male with a past medical history significant for chronic kidney disease on hemodialysis, hypertension, hyperlipidemia, TIA, and coronary artery disease with previous PCI to the RCA. Patient follows in the office with Dr. Liz. We have been asked to see the patient in consultation for chest pain. Patient examined at the bedside in the emergency room. Patient states he began having chest pain yesterday around 10 AM. He states the pain was very minimal at first and progressed throughout the day. He states the pain was right in the middle of his chest. He denies any radiation of the pain. He reported mild shortness of breath. Denied nausea or vomiting. Denies dizziness or lightheadedness. Patient states the pain is worse with deep inspiration. He does report some mild tenderness with chest wall palpation. Patient also reports he was switched to Plavix about 2 weeks ago from Brilinta as he was experiencing progressive shortness of breath with the Brilinta. He reports compliance with all of his medications and has not missed any doses. EKG reveals sinus mechanism with no signs of acute ischemia Chest xray no active cardiopulmonary disease Laboratory data: WBC 11.9. Hemoglobin 10.5. Platelet count 209. Sodium 130. Potassium 5.7. BUN 57. Creatinine 7.28. Troponins negative 3. BNP 1490. Current home cardiac medications include Demadex 40 mg daily, Plavix 75 mg daily, lisinopril 5 mg daily, Coreg 6.25 mg at night, Lipitor 40 mg daily, aspirin 81 mg daily Most recent echocardiogram obtained in October 2020 revealed ejection fraction 55-60% Cardiac catheterization history: October 2020. Patient presented to the hospital with an inferior STEMI and underwent stent placement to RCA. REVIEW OF SYSTEMS: At the time of my exam: CONSTITUTIONAL: Denies fever or chills. HEENT: Denies blurred vision, vision changes, or eye pain. Denies hemoptysis CARDIOVASCULAR: Denies chest pain. Denies orthopnea. Denies PND. Denies palpitations RESPIRATORY: Denies shortness of breath. GASTROINTESTINAL: Denies abdominal pain. Denies nausea or vomiting. HEMATOLOGIC: Denies bleeding disorders. GENITOURINARY: Denies any blood in urine. SKIN: Denies pruitis. Denies rash. PHYSICAL EXAM: VITAL SIGNS: Reviewed. GENERAL: Well-developed in no acute distress. HEENT: Head is normocephalic. Pupils are equal, round. Sclerae anicteric. Mucous membranes of the mouth are moist. Neck supple. No JVD or thyromegaly LUNGS: Respirations even and unlabored. Lungs essentially clear to auscultation bilaterally. HEART: Regular rate and rhythm. S1 and S2 heard. Mild tenderness with chest wa ll palpation. ABDOMEN: Soft. Nondistended. Nontender. EXTREMITIES: Normal range of motion. No clubbing or cyanosis. Peripheral pulses intact. No lower extremity edema NEUROLOGIC: Awake and alert. Oriented x 3. ASSESSMENT: Chest pain, with typical and atypical features, troponins negative 3 Coronary artery disease with previous PCI to RCA End-stage renal disease on hemodialysis Hypertension Hyperlipidemia TIA Diabetes mellitus with hyperglycemia Hyperkalemia Hyponatremia PLAN: Resume home cardiac medications Continue dual antiplatelet therapy with aspirin and Plavix Obtain 2-D echo to assess cardiac structure and function We will continue IV heparin and nitro paste at this time secondary to chest pain Patient to undergo Chrissy scan stress test tomorrow Patient scheduled for hemodialysis today Further recommendations pending patient's course Nurse practitioner note has been reviewed by physician. Signing provider agrees with the documented findings, assessment, and plan of care. 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 pt on dialysis tuesday, , Tuesday History of Any Multi-Drug Resistant Organisms: None Reported Past Surgical History: Adenoidectomy, Bariatric Surgery, Cholecystectomy, Heart Catheterization, Heart Catheterization With Stent, Tonsillectomy Additional Past Surgical History / Comment(s): FX of right ankle repair pins / plate, fistual lt arm jul 2018 has'nt started dialysis, lt shoulder sx (d/t separation) Past Anesthesia/Blood Transfusion Reactions: Motion Sickness Additional Past Anesthesia/Blood Transfusion Reaction / Comment(s): CLAUSTERPHOBIA Past Psychological History: Anxiety Smoking Status: Never smoker Past Alcohol Use History: Rare Past Drug Use History: None Reported - Past Family History Mother History Unknown: Yes Family Medical History: Coronary Artery Disease (CAD), Diabetes Mellitus, Myocardial Infarction ([place]) Additional Family Medical History / Comment(s): Mother at age 58 from multiple sclerosis Father Family Medical History: CVA/TIA, Myocardial Infarction ([place]) Additional Family Medical History / Comment(s): Father had history of [place] and CVA followed by a second [place] and CVA and at age 65. Brother(s) Additional Family Medical History / Comment(s): . Medications and Allergies Home Medications Medication Instructions Recorded Confirmed Type Atorvastatin [Lipitor] 40 mg PO HS 08/07/14 11/24/20 History Levothyroxine Sodium 100 mcg PO HS 07/06/17 11/24/20 History Torsemide [Demadex] 40 mg PO HS 09/10/19 11/24/20 History Allopurinol [Zyloprim] 300 mg PO HS 10/20/20 11/24/20 History Carvedilol [Coreg] 6.25 mg PO HS 10/20/20 11/24/20 History Magnebind 300mg 1 tab PO BID 10/20/20 11/24/20 History Magnesium Hydroxide [Milk of 2,400 mg PO DAILY PRN 10/20/20 11/24/20 History Magnesia] Bryanna-Olimpia 1 tab PO HS 10/20/20 11/24/20 History lisinopriL [Zestril] 5 mg PO HS 10/20/20 11/24/20 History Aspirin 81 mg PO DAILY #90 chew 10/22/20 11/24/20 Rx Calcium Acetate [PhosLo] 1,334 mg PO TID-W/MEALS tab 10/23/20 11/24/20 Rx Nitroglycerin Sl Tabs [Nitrostat] 0.4 mg SUBLINGUAL Q5M PRN #25 tab 10/23/20 11/24/20 Rx Calcium Carbonate [Tums Ultra 2,354 mg PO AC-BID PRN 11/24/20 11/24/20 History Strength] Clopidogrel Bisulfate [Plavix] 75 mg PO DAILY 11/24/20 11/24/20 History HYDROcodone/APAP 10-325MG [[place] 1 tab PO QID PRN 11/24/20 11/24/20 History 10-325] Insulin Detemir [Levemir Flextouch] 60 units SQ HS 11/24/20 11/24/20 History Insulin Regular, Human [Novolin R 30 unit SQ AC-TID 11/24/20 11/24/20 History Flexpen] Lactulose [Cephulac] 30 gm PO DAILY PRN 11/24/20 11/24/20 History Allergies Allergy/AdvReac Type Severity Reaction Status Date / Time No Known Allergies Allergy Verified 11/24/20 20:30 Physical Exam Vitals: Vital Signs Temp Pulse Resp BP Pulse Ox 11/25/20 08:01 89 16 123/86 99 11/25/20 04:24 76 22 118/74 97 11/25/20 01:43 80 18 125/87 95 11/24/20 22:23 97.9 F 87 18 144/90 97 11/24/20 20:57 86 18 162/71 98 11/24/20 19:03 98.1 F 92 18 182/73 98 Intake and Output 11/24/20 11/25/20 11/25/20 22:59 06:59 14:59 Intake Total 88.833 Balance 88.833 Intake: Intake, IV Titration 88.833 Amount Heparin Sod,Pork in 0.45% 88.833 NaCl 25,000 unit In 0.45 % NaCl 1 250ml.bag @ 6. 317 UNITS/KG/HR 10 mls/hr IV .Q24H [facility] Rx#: [id number] Other: Weight 158.304 kg Results 11/24/20 19:24 11/24/20 19:24 Cardiac Enzymes 11/24/20 11/24/20 11/24/20 Range/Units 19:24 19:24 22:28 AST 18 (17-59) U/L Troponin I <0.012 <0.012 (0.000-0.034) ng/mL 11/25/20 Range/Units 00:53 AST (17-59) U/L Troponin I <0.012 (0.000-0.034) ng/mL Coagulation 11/24/20 11/25/20 Range/Units 19:24 03:41 PT 9.4 (9.0-12.0) sec APTT 23.6 21.4 L (22.0-30.0) sec Lipids 11/25/20 Range/Units 03:41 Triglycerides 390 H (<150) mg/dL Cholesterol 125 (<200) mg/dL HDL Cholesterol 25 L (40-60) mg/dL CBC 11/24/20 Range/Units 19:24 WBC 11.9 H (3.8-10.6) k/uL RBC 3.30 L (4.30-5.90) m/uL Hgb 10.5 L (13.0-17.5) gm/dL Hct 31.6 L (39.0-53.0) % Plt Count 209 (150-450) k/uL Comprehensive Metabolic Panel 11/24/20 Range/Units 19:24 Sodium 130 L (137-145) mmol/L Potassium 5.7 H (3.5-5.1) mmol/L Chloride 83 L (98-107) mmol/L Carbon Dioxide 35 H (22-30) mmol/L BUN 57 H (9-20) mg/dL Creatinine 7.28 H* (0.66-1.25) mg/dL Glucose 430 H (74-99) mg/dL Calcium 9.4 (8.4-10.2) mg/dL AST 18 (17-59) U/L ALT 19 (4-49) U/L Alkaline Phosphatase 126 (38-126) U/L Total Protein 7.2 (6.3-8.2) g/dL Albumin 4.1 (3.5-5.0) g/dL Current Medications Generic Name Dose Route Start Last Admin Trade Name Freq PRN Reason Stop Dose Admin Hydrocodone Bitart/Acetaminophen 1 each 11/24/20 23:14 11/25/20 01:39 Hydrocodone/Apap 10-325mg 1 Each Tab PO 1 each QID PRN Administration Pain Allopurinol 300 mg 11/25/20 21:00 Allopurinol 300 Mg Tab PO HS [facility] Aminophylline 100 mg 11/26/20 05:00 Aminophylline 500 Mg/20 Ml Vial IV 11/26/20 23:00 ONCE PRN Patient Response Aspirin 81 mg 11/25/20 09:00 11/25/20 09:06 Aspirin 81 Mg PO 81 mg DAILY [facility] Administration Atorvastatin Calcium 40 mg 11/25/20 21:00 Atorvastatin 40 Mg Tab PO HS [facility] Caffeine Citrate 60 mg 11/26/20 05:00 Caffeine Citrate 60 Mg/3 Ml Vial IV 11/26/20 23:00 ONCE PRN Patient Response Calcium Acetate 1,334 mg 11/25/20 07:30 11/25/20 07:56 Calcium Acetate 667 Mg Tab PO 1,334 mg TID-W/MEALS [facility] Administration Calcium Carbonate/Glycine 2,000 mg 11/24/20 23:14 Calcium Carbonate 500 Mg Chewable PO AC-BID PRN GI Upset Carvedilol 6.25 mg 11/25/20 21:00 Carvedilol 6.25 Mg Tab PO HS [facility] Clopidogrel Bisulfate 75 mg 11/25/20 09:00 11/25/20 09:06 Clopidogrel 75 Mg Tab PO 75 mg DAILY [facility] Administration Heparin Sodium/Sodium Chloride 250 mls @ 10 mls/hr 11/24/20 20:15 11/25/20 05:48 25,000 unit/ Sodium Chloride IV 8.21 units/kg/hr .Q24H [facility] 13 mls/hr Titration Protocol 6.317 UNITS/KG/HR Insulin Detemir 40 unit 11/25/20 11:00 Insulin Detemir (Levemir) 100 Unit/Ml Syr SQ DAILY@0700 [facility] Insulin Human Regular 20 unit 11/25/20 07:30 11/25/20 07:54 Insulin Regular 100 Unit/Ml Vial SQ 20 unit AC-TID [facility] Administration Lactulose 30 gm 11/25/20 09:00 Lactulose 20 Gm/30 Ml Cup PO DAILY PRN Constipation Levothyroxine Sodium 100 mcg 11/25/20 21:00 Levothyroxine 100 Mcg Tab PO HS [facility] Lisinopril 5 mg 11/25/20 21:00 Lisinopril 5 Mg Tab PO HS [facility] Multivit/Ca Carb/B Cmplx/FA/Prenat 1 each 11/25/20 21:00 Folic Acid-Vit B Complex-Vit C 1 Cap PO HS [facility] Nitroglycerin 1 inch 11/25/20 00:00 11/25/20 06:20 Nitroglycerin Oint 1 Inch/Gm Packet TOPICAL Not Given Q6HR [facility] Nitroglycerin 0.4 mg 11/24/20 23:14 Nitroglycerin Sl Tabs 0.4 Mg Tab SUBLINGUAL Q5M PRN Chest Pain Regadenoson 0.4 mg 11/25/20 11:37 Regadenoson 0.4 Mg/5 Ml Syringe IV 11/25/20 15:37 ONCE PRN Per Protocol Torsemide 40 mg 11/25/20 21:00 Torsemide 20 Mg Tab PO HS [facility] Intake and Output 11/24/20 11/25/20 11/25/20 22:59 06:59 14:59 Intake Total 88.833 Balance 88.833 Intake: Intake, IV Titration 88.833 Amount Heparin Sod,Pork in 0.45% 88.833 NaCl 25,000 unit In 0.45 % NaCl 1 250ml.bag @ 6. 317 UNITS/KG/HR 10 mls/hr IV .Q24H [facility] Rx#: [id number] Other: Weight 158.304 kg 11/24/20 19:24 11/24/20 19:24
[2020-11-25 12:05] LABS: Glucose,Whole Blood 429 mg/dL (75-99)
[2020-11-25] MEDS: INSULIN ASPART (NovoLOG) 100 UNIT/ML VIAL SQ SCH ×3 (12:52→21:06)
[2020-11-25] MEDS ORDERED: INSULIN REGULAR 100 UNIT/ML VIAL IV ONE (12:54)
--- NOTE | 2020-11-25 13:09 | P.HPIM ---
History of Present Illness H&P Date: 11/25/20 Chief Complaint: CP, SOB HISTORY OF PRESENT ILLNESS This is a 60-year-old male patient of Dr. Oshea and Dr. Liz with past medical history of end-stage renal disease on hemodialysis Tuesday, hypertension, hyperlipidemia, diabetes mellitus type 2 insulin requiring, obstructive sleep apnea, GERD, diabetic neuropathy, diabetic r etinopathy, hypothyroidism TIA, morbid obesity history of prostate cancer status post radiation therapy in 2017 in remission, anemia of chronic kidney disease, generalized anxiety disorder. Patient was recently hospitalized and discharged on October 23 at which time he was treated for acute inferior wall myocardial infarction status post angioplasty of the right coronary artery. Patient states he developed chest pain and shortness of breath similar to what he was having for his recent heart attack. Pain started yesterday morning at 10:30 became worse throughout the day. No nausea, no diaphoresis, no radiation of the pain, no fever or chills, no cough, no abdominal pain, no nausea, vomiting or diarrhea. Patient was found to be afebrile, heart rate 92, blood pressure 182/73. EKG was a sinus rhythm with no acute ST changes. Chest x-ray showed no acute abnormality. WBC 11.9, hemoglobin 10.5, platelet count 209. Sodium 130, potassium 5.7, chloride 83, CO2 35, BUN 57 creatinine 7.28. Blood sugar 430. Note the patient did not receive his Lantus last evening and blood sugars have continued in the 400s. Liver function tests normal. Troponin negative on 3 draws. ProBNP 1490. Coronavirus PCR not detected. Echocardiogram reveals EF of 6065% with moderate concentric left ventricular hypertrophy, mild tricuspid regurgitation, small pericardial effusion. Patient to be admitted to the cardiac stepdown unit and consult in place with nephrology and cardiology. REVIEW OF SYSTEMS Constitutional: No fever, no chills, no night sweats. No weight change. No weakness, fatigue or lethargy. No daytime sleepiness. EENT: No headache. No blurred vision or double vision, no loss of vision. No loss of Hearing, no ringing in the ears, no dizziness. No nasal drainage or congestion. No epistaxis. No sore throat. Lungs: No shortness of breath, cough, no sputum production. No wheezing. Cardiovascular: No chest pain, no lower extremity edema. No palpitations. No paroxysmal nocturnal dyspnea. No orthopnea. No lightheadedness or dizziness. No syncopal episodes. Abdominal: No abdominal pain. No nausea, vomiting. No diarrhea. No constipation. No bloody or tarry stools.. No loss of appetite. Genitourinary: No dysuria, increased frequency, urgency. No urinary retention. Musculoskeletal: No myalgias. No muscle weakness, no gait dysfunction, no frequent falls. No back pain. No neck pain. Integumentary: No wounds, no lesions. No rash or pruritus. No unusual bruising. No change in hair or nails. Neurologic: No aphasia. No facial droop. No change in mentation. No head injury. No headache. No paralysis. No paresthesia. Psychiatric: No depression. No anxiety. No mood swings. Endocrine: No abnormal blood sugars. No weight change. No excessive sweating or thirst. No cold intolerance. SOCIAL HISTORY Patient was a smoker for 34 years up to 3-1/2 packs per day and quit in 2006. He denies any marijuana use, street drug use or alcohol use. He lives at home with his . He has a CPAP at home. No nebulizer. FAMILY HISTORY Father at age 64 from a myocardial infarction/CVA. Mother at 60 from MS. Patient has 3 siblings all living with no history of coronary artery disease or renal disease. Patient has 3 children with no major medical problems. PHYSICAL EXAMINATION Gen: This is a morbidly obese 60-year-old male. Patient is resting on the ER stretcher. HEENT: Head is atraumatic, normocephalic. Pupils equal, round. Sclerae is anicteric. NECK: Supple. No JVD. No lymphadenopathy. No thyromegaly. LUNGS: Clear to auscultation. No wheezes or rhonchi. No intercostal retractions. HEART: Regular rate and rhythm. No murmur. ABDOMEN: Soft. Bowel sounds are present. No masses. No tenderness. EXTREMITIES: No pedal edema. No calf tenderness. NEUROLOGICAL: Patient is awake, alert and oriented x3. Cranial nerves 2 through 12 are grossly intact. ASSESSMENT AND PLAN 1. Chest pain, acute coronary syndrome ruled out. Cardiology consult appreciated. Echocardiogram as above. Plan is continue IV heparin and Nitropaste, Lexiscan stress test tomorrow. 2. Recent acute inferior wall myocardial infarction status post angioplasty of the right coronary artery. Continue aspirin 81 mg daily, Lipitor 40 mg daily, Plavix 75 mg daily, Coreg 6.25 mg at bedtime, Demadex 40 mg at bedtime, lisinop ril 5 mg at bedtime. 3. End-stage renal disease on hemodialysis Tuesday. Consult with nephrology. Patient is scheduled for hemodialysis today, continue PhosLo. 4. Hypertension. Continue Coreg 6.25 mg at bedtime, lisinopril 5 mg at bedtime, Demadex. 5. Hyperlipidemia. Continue atorvastatin 40 mg at bedtime 6. Diabetes mellitus type 2 insulin requiring, uncontrolled with hyperglycemia. Levemir will be switched to 40 mg in the morning, continue regular insulin 20 units with meals and NovoLog scale before meals and at bedtime. 7. Obstructive sleep apnea. 8. Gastroesophageal reflux disease. Protonix. 9. Diabetes with diabetic neuropathy and diabetic retinopathy. 10. Hypothyroidism. Continue levothyroxine 100 g daily. 11. Super morbid obesity with BMI of 48. 12. History of prostate cancer status post radiation therapy in 2017 in remission. 13. Anemia of chronic kidney disease. 14. Chronic gout. Continue allopurinol 300 mg at bedtime. Patient will be admitted to the hospital for a minimum of 2 night stay. DISCHARGE PLAN Return home. Impression and plan of care have been directed as dictated by the signing physi cian. Laine Jones nurse practitioner acting as scribe for signing physician. 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 pt on dialysis tuesday, , Tuesday History of Any Multi-Drug Resistant Organisms: None Reported Past Surgical History: Adenoidectomy, Bariatric Surgery, Cholecystectomy, Heart Catheterization, Heart Catheterization With Stent, Tonsillectomy Additional Past Surgical History / Comment(s): FX of right ankle repair pins / plate, fistual lt arm jul 2018 has'nt started dialysis, lt shoulder sx (d/t sepa ration) Past Anesthesia/Blood Transfusion Reactions: Motion Sickness Additional Past Anesthesia/Blood Transfusion Reaction / Comment(s): CLAUSTERPHOBIA Past Psychological History: Anxiety Smoking Status: Never smoker Past Alcohol Use History: Rare Past Drug Use History: None Reported - Past Family History Mother History Unknown: Yes Family Medical History: Coronary Artery Disease (CAD), Diabetes Mellitus, Myocardial Infarction ([place]) Additional Family Medical History / Comment(s): Mother at age 58 from multiple sclerosis Father Family Medical History: CVA/TIA, Myocardial Infarction ([place]) Additional Family Medical History / Comment(s): Father had history of [place] and CVA followed by a second [place] and CVA and at age 65. Brother(s) Additional Family Medical History / Comment(s): . Medications and Allergies Home Medications Medication Instructions Recorded Confirmed Type Atorvastatin [Lipitor] 40 mg PO HS 08/07/14 11/24/20 History Levothyroxine Sodium 100 mcg PO HS 07/06/17 11/24/20 History Torsemide [Demadex] 40 mg PO HS 09/10/19 11/24/20 History Allopurinol [Zyloprim] 300 mg PO HS 10/20/20 11/24/20 History Carvedilol [Coreg] 6.25 mg PO HS 10/20/20 11/24/20 History Magnebind 300mg 1 tab PO BID 10/20/20 11/24/20 History Magnesium Hydroxide [Milk of 2,400 mg PO DAILY PRN 10/20/20 11/24/20 History Magnesia] Bryanna-Olimpia 1 tab PO HS 10/20/20 11/24/20 History lisinopriL [Zestril] 5 mg PO HS 10/20/20 11/24/20 History Aspirin 81 mg PO DAILY #90 chew 10/22/20 11/24/20 Rx Calcium Acetate [PhosLo] 1,334 mg PO TID-W/MEALS tab 10/23/20 11/24/20 Rx Nitroglycerin Sl Tabs [Nitrostat] 0.4 mg SUBLINGUAL Q5M PRN #25 tab 10/23/20 11/24/20 Rx Calcium Carbonate [Tums Ultra 2,354 mg PO AC-BID PRN 11/24/20 11/24/20 History Strength] Clopidogrel Bisulfate [Plavix] 75 mg PO DAILY 11/24/20 11/24/20 History HYDROcodone/APAP 10-325MG [[place] 1 tab PO QID PRN 11/24/20 11/24/20 History 10-325] Insulin Detemir [Levemir Flextouch] 60 units SQ HS 11/24/20 11/24/20 History Insulin Regular, Human [Novolin R 30 unit SQ AC-TID 11/24/20 11/24/20 History Flexpen] Lactulose [Cephulac] 30 gm PO DAILY PRN 11/24/20 11/24/20 History Allergies Allergy/AdvReac Type Severity Reaction Status Date / Time No Known Allergies Allergy Verified 11/24/20 20:30 Physical Exam Vitals: Vital Signs Temp Pulse Resp BP Pulse Ox 11/25/20 08:01 89 16 123/86 99 11/25/20 04:24 76 22 118/74 97 11/25/20 01:43 80 18 125/87 95 11/24/20 22:23 97.9 F 87 18 144/90 97 11/24/20 20:57 86 18 162/71 98 11/24/20 19:03 98.1 F 92 18 182/73 98 Intake and Output 11/24/20 11/25/20 11/25/20 22:59 06:59 14:59 Intake Total 88.833 Balance 88.833 Intake: Intake, IV Titration 88.833 Amount Heparin Sod,Pork in 0.45% 88.833 NaCl 25,000 unit In 0.45 % NaCl 1 250ml.bag @ 6. 317 UNITS/KG/HR 10 mls/hr IV .Q24H [facility] Rx#: [id number] Other: Weight 158.304 kg Results CBC & Chem 7: 11/24/20 19:24 11/25/20 12:07 Labs: Abnormal Lab Results - Last 24 Hours (Table) 11/24/20 11/24/20 11/25/20 Range/Units 19:24 19:24 03:41 WBC 11.9 H (3.8-10.6) k/uL RBC 3.30 L (4.30-5.90) m/uL Hgb 10.5 L (13.0-17.5) gm/dL Hct 31.6 L (39.0-53.0) % Neutrophils # 9.8 H (1.3-7.7) k/uL APTT (22.0-30.0) sec Sodium 130 L (137-145) mmol/L Potassium 5.7 H (3.5-5.1) mmol/L Chloride 83 L (98-107) mmol/L Carbon Dioxide 35 H (22-30) mmol/L BUN 57 H (9-20) mg/dL Creatinine 7.28 H* (0.66-1.25) mg/dL Glucose 430 H (74-99) mg/dL POC Glucose (mg/dL) (75-99) mg/dL Magnesium 4.1 H (1.6-2.3) mg/dL Triglycerides 390 H (<150) mg/dL HDL Cholesterol 25 L (40-60) mg/dL 11/25/20 11/25/20 Range/Units 03:41 07:53 WBC (3.8-10.6) k/uL RBC (4.30-5.90) m/uL Hgb (13.0-17.5) gm/dL Hct (39.0-53.0) % Neutrophils # (1.3-7.7) k/uL APTT 21.4 L (22.0-30.0) sec Sodium (137-145) mmol/L Potassium (3.5-5.1) mmol/L Chloride (98-107) mmol/L Carbon Dioxide (22-30) mmol/L BUN (9-20) mg/dL Creatinine (0.66-1.25) mg/dL Glucose (74-99) mg/dL POC Glucose (mg/dL) 432 H (75-99) mg/dL Magnesium (1.6-2.3) mg/dL Triglycerides (<150) mg/dL HDL Cholesterol (40-60) mg/dL
[2020-11-25 17:31] LABS: Glucose,Whole Blood 272 mg/dL (75-99)
[2020-11-25 20:20] LABS: Glucose,Whole Blood 447 mg/dL (75-99)
[2020-11-25] MEDS ORDERED: INSULIN ASPART (NovoLOG) 100 UNIT/ML VIAL SQ ONE (21:00)
[2020-11-25] MEDS ORDERED: lisinopriL 5 MG TAB PO SCH (21:00)
[2020-11-25] MEDS ORDERED: TORSEMIDE 20 MG TAB PO SCH (21:00)
[2020-11-25] MEDS ORDERED: allopurinoL 300 MG TAB PO SCH (21:00)
[2020-11-25] MEDS: carvediloL 6.25 MG TAB PO SCH (21:14)
[2020-11-25] MEDS: ATORVASTATIN 40 MG TAB PO SCH (21:14)
[2020-11-25] MEDS: lisinopriL 5 MG TAB PO SCH (21:14)
[2020-11-25] MEDS: LEVOTHYROXINE 100 MCG TAB PO SCH (21:14)
[2020-11-25] MEDS: INSULIN DETEMIR (LEVEMIR) 100 UNIT/ML SYR SQ SCH (21:15)
[2020-11-25] MEDS: FOLIC ACID-VIT B COMPLEX-VIT C 1 CAP PO SCH (21:54)
[2020-11-25 21:55] LABS: Calcium 8.9 mg/dL (8.4-10.2); Potassium 5.3 mmol/L (3.5-5.1)
[2020-11-25] MEDS ORDERED: HEPARIN SODIUM,PORCINE 5,000 UNIT/ML 1 ML VIAL IV PRN (22:18)
[2020-11-25] MEDS: HEPARIN SOD,PORK IN 0.45% NACL 25,000 UNIT in 0.45% NACL 1 250ML.BAG IV SCH (22:30)
[2020-11-26] MEDS: HYDROcodone/APAP 10-325MG 1 EACH TAB PO PRN ×3 (03:44→18:13)
[2020-11-26] MEDS ORDERED: AMINOPHYLLINE 500 MG/20 ML VIAL IV PRN (05:00)
[2020-11-26] MEDS ORDERED: CAFFEINE CITRATE 60 MG/3 ML VIAL IV PRN (05:00)
[2020-11-26] MEDS: CLOPIDOGREL 75 MG TAB PO SCH (06:25)
[2020-11-26] MEDS: ASPIRIN 81 MG PO SCH (06:25)
[2020-11-26] MEDS: lisinopriL 5 MG TAB PO SCH (06:25)
[2020-11-26] MEDS: CALCIUM ACETATE 667 MG TAB PO SCH ×4 (06:26→17:28)
[2020-11-26] MEDS: NITROGLYCERIN OINT 1 INCH/GM PACKET TOPICAL SCH ×2 (06:26→12:04)
[2020-11-26] MEDS ORDERED: REGADENOSON 0.4 MG/5 ML SYRINGE IV PRN (07:00)
[2020-11-26 07:14] LABS: Glucose,Whole Blood 265 mg/dL (75-99)
[2020-11-26] MEDS ORDERED: TORSEMIDE 20 MG TAB PO SCH (09:00)
[2020-11-26] MEDS: INSULIN ASPART (NovoLOG) 100 UNIT/ML VIAL SQ SCH ×4 (09:15→20:38)
[2020-11-26] MEDS: INSULIN REGULAR 100 UNIT/ML VIAL SQ SCH ×3 (10:44→17:31)
--- NOTE | 2020-11-26 10:52 | P.PN ---
Subjective Patient is seen in follow-up for end-stage renal disease. He is maintained on hemodialysis on Tuesday schedule. Tolerated dialysis yesterday with 3 L ultrafiltration. No chest pain or shortness of breath. Oral intake good. Scheduled for stress test today. Vital signs are stable. General: The patient appeared well nourished and normally developed. HEENT: Head exam is unremarkable. Neck is without jugular venous distension. LUNGS: Breath sounds decreased. HEART: Rate and Rhythm are regular. ABDOMEN: Soft, nontender. EXTREMITITES: No edema. Objective - Vital Signs Vital signs: Vital Signs Temp 99 F 11/26/20 08:00 Pulse 75 11/26/20 08:00 Resp 20 11/26/20 08:00 BP 110/54 11/26/20 08:00 Pulse Ox 97 11/26/20 08:00 Intake & Output 11/25/20 11/26/20 11/26/20 18:59 06:59 18:59 Intake Total 320 328.642 0 Output Total 3000 0 0 Balance -2680 328.642 0 Weight 158.304 kg 158 kg Intake: IV 120 40 .9@10 120 40 Intake, IV Titration 288.642 Amount Heparin Sod,Pork in 0.45% 288.642 NaCl 25,000 unit In 0.45 % NaCl 1 250ml.bag @ 6. 317 UNITS/KG/HR 10 mls/hr IV .Q24H [facility] Rx#: [id number] Oral 200 0 0 Output: Urine 0 0 Hemodialysis 3000 Other: Voiding Method Urinal Urinal Urinal - Labs CBC & Chem 7: 11/24/20 19:24 11/25/20 21:18 Labs: Abnormal Lab Results - Last 24 Hours (Table) 11/25/20 11/25/20 11/25/20 Range/Units 12:02 12:07 13:00 Sodium (137-145) mmol/L Potassium 6.5 H* 6.5 H* (3.5-5.1) mmol/L Chloride (98-107) mmol/L BUN (9-20) mg/dL Creatinine (0.66-1.25) mg/dL Glucose (74-99) mg/dL POC Glucose (mg/dL) 429 H (75-99) mg/dL 11/25/20 11/25/20 11/25/20 Range/Units 17:30 20:19 21:18 Sodium 130 L (137-145) mmol/L Potassium 5.3 H (3.5-5.1) mmol/L Chloride 91 L (98-107) mmol/L BUN 41 H (9-20) mg/dL Creatinine 5.36 H (0.66-1.25) mg/dL Glucose 418 H (74-99) mg/dL POC Glucose (mg/dL) 272 H 447 H (75-99) mg/dL 11/26/20 Range/Units 07:13 Sodium (137-145) mmol/L Potassium (3.5-5.1) mmol/L Chloride (98-107) mmol/L BUN (9-20) mg/dL Creatinine (0.66-1.25) mg/dL Glucose (74-99) mg/dL POC Glucose (mg/dL) 265 H (75-99) mg/dL Assessment and Plan Plan: Assessment: 1. End-stage renal disease maintained on hemodialysis on Tuesday schedule. 2. Chest pain with history of coronary artery disease. Maintain on heparin drip. Cardiology following. 3. Chronic kidney disease mineral bone disease maintained on PhosLo. 4. Diabetes mellitus. 5. Hypertension with chronic kidney disease. Stable. 6. Hyponatremia secondary to chronic kidney disease and hyperglycemia. 7. Hyperkalemia secondary to chronic kidney disease and lisinopril. Also component of hyperglycemia. Improved postdialysis. 8. Hypermagnesemia secondary to milk of magnesia and magnebind. Plan: Hemodialysis tomorrow. Stopped milk of magnesia and magnebind. Tight blood sugar control. Maintain torsemide. Repeat magnesium level as well. Follow-up stress test.
[2020-11-26 12:12] LABS: Glucose,Whole Blood 335 mg/dL (75-99)
--- NOTE | 2020-11-26 14:01 | P.PN ---
Subjective Progress Note Date: 11/26/20 HISTORY OF PRESENT ILLNESS This is a 60-year-old male patient of Dr. Oshea and Dr. Liz with past medical history of end-stage renal disease on hemodialysis Tuesday, hypertension, hyperlipidemia, diabetes mellitus type 2 insulin requiring, obstructive sleep apnea, GERD, diabetic neuropathy, diabetic retinopathy, hypothyroidism TIA, morbid obesity history of prostate cancer status post radiation therapy in 2017 in remission, anemia of chronic kidney disease, generalized anxiety disorder. Patient was recently hospitalized and discharged on October 23 at which time he was treated for acute inferior wall myocardial infarction status post angioplasty of the right coronary artery. Patient states he developed chest pain and shortness of breath similar to what he was having for his recent heart attack. Pain started yesterday morning at 10:30 became worse throughout the day. No nausea, no diaphoresis, no radiation of the pain, no fever or chills, no cough, no abdominal pain, no nausea, vomiting or diarrhea. Patient was found to be afebrile, heart rate 92, blood pressure 182/73. EKG was a sinus rhythm with no acute ST changes. Chest x-ray showed no acute abnormality. WBC 11.9, hemoglobin 10.5, platelet count 209. Sodium 130, potassium 5.7, chloride 83, CO2 35, BUN 57 creatinine 7.28. Blood sugar 430. Note the patient did not receive his Lantus last evening and blood sugars have continued in the 400s. Liver function tests normal. Troponin negative on 3 draws. ProBNP 1490. Coronavirus PCR not detected. Echocardiogram reveals EF of 6065% with moderate concentric left ventricular hypertrophy, mild tricuspid regurgitation, small pericardial effusion. Patient to be admitted to the cardiac stepdown unit and consult in place with nephrology and cardiology. 11/26: Patient states that he had a drink of pop last night to take his medications and because the caffeine stress test was delayed until tomorrow. He is currently denying any chest pain or shortness of breath. No lightheadedness or dizziness. Dr. Dove has held lisinopril due to hyperkalemia. Patient is scheduled for hemodialysis tomorrow. Patient has a febrile, heart rate 75, blood pressure 110/54, pulse ox 97% on room air. Patient is utilized CPAP during the night. Blood sugars have been 265-418. He was given additional dose of NovoLog last evening and scheduled Novolin with meals will be increased to his home dose of 30 units 3 times daily. IV heparin has been discontinued. REVIEW OF SYSTEMS Constitutional: No fever, no chills, no night sweats. No weight change. No weakness, fatigue or lethargy. No daytime sleepiness. EENT: No headache. No blurred vision or double vision, no loss of vision. No loss of Hearing, no ringing in the ears, no dizziness. No nasal drainage or congestion. No epistaxis. No sore throat. Lungs: No shortness of breath, cough, no sputum production. No wheezing. Cardiovascular: No chest pain, no lower extremity edema. No palpitations. No paroxysmal nocturnal dyspnea. No orthopnea. No lightheadedness or dizziness. No syncopal episodes. Abdominal: No abdominal pain. No nausea, vomiting. No diarrhea. No constipation. No bloody or tarry stools.. No loss of appetite. Genitourinary: No dysuria, increased frequency, urgency. No urinary retention. Musculoskeletal: No myalgias. No muscle weakness, no gait dysfunction, no frequent falls. No back pain. No neck pain. Integumentary: No wounds, no lesions. No rash or pruritus. No unusual bruising. No change in hair or nails. Neurologic: No aphasia. No facial droop. No change in mentation. No head injury. No headache. No paralysis. No paresthesia. Psychiatric: No depression. No anxiety. No mood swings. Endocrine: Reports abnormal blood sugars. No weight change. No excessive sweating or thirst. No cold intolerance. PHYSICAL EXAMINATION Gen: This is a morbidly obese 60-year-old male. Patient is resting on the edge of his bed. He appears to be comfortable and in no acute distress. HEENT: Head is atraumatic, normocephalic. Pupils equal, round. Sclerae is anicteric. NECK: Supple. No JVD. No lymphadenopathy. No thyromegaly. LUNGS: Clear to auscultation. No wheezes or rhonchi. No intercostal retractions. HEART: Regular rate and rhythm. No murmur. ABDOMEN: Soft. Bowel sounds are present. No masses. No tenderness. EXTREMITIES: No pedal edema. No calf tenderness. NEUROLOGICAL: Patient is awake, alert and oriented x3. Cranial nerves 2 through 12 are grossly intact. ASSESSMENT AND PLAN 1. Chest pain, acute coronary syndrome ruled out. Cardiology consult appreciated. Echocardiogram as above. Plan is Lexiscan stress test tomorrow. 2. Recent acute inferior wall myocardial infarction status post angioplasty of the right coronary artery. Continue aspirin 81 mg daily, Lipitor 40 mg daily, Plavix 75 mg daily, Coreg 6.25 mg at bedtime, Demadex 40 mg at bedtime, lisinopril 5 mg at bedtime. 3. End-stage renal disease on hemodialysis Tuesday. Consult with nephrology. Patient is scheduled for hemodialysis today, continue PhosLo. 4. Hypertension. Continue Coreg 6.25 mg at bedtime, lisinopril 5 mg at bedti me, Demadex. 5. Hyperlipidemia. Continue atorvastatin 40 mg at bedtime 6. Diabetes mellitus type 2 insulin requiring, uncontrolled with hyperglycemia. Levemir will be switched to 40 mg in the morning, continue regular insulin increased to 30 units with meals and NovoLog scale before meals and at bedtime. 7. Obstructive sleep apnea. On CPAP. 8. Gastroesophageal reflux disease. Protonix. 9. Diabetes with diabetic neuropathy and diabetic retinopathy. 10. Hypothyroidism. Continue levothyroxine 100 g daily. 11. Super morbid obesity with BMI of 48. 12. History of prostate cancer status post radiation therapy in 2017 in remission. 13. Anemia of chronic kidney disease. 14. Chronic gout. Continue allopurinol 300 mg at bedtime. 15. DVT prophylaxis. Heparin drip DISCHARGE PLAN Return home. Impression and plan of care have been directed as dictated by the signing physician. Laine Jones nurse practitioner acting as scribe for signing physi axel. Objective - Vital Signs Vital signs: Vital Signs Temp 99 F 11/26/20 08:00 Pulse 75 11/26/20 08:00 Resp 20 11/26/20 08:00 BP 110/54 11/26/20 08:00 Pulse Ox 97 11/26/20 08:00 Intake & Output 11/25/20 11/26/20 11/26/20 18:59 06:59 18:59 Intake Total 320 328.642 0 Output Total 3000 0 0 Balance -2680 328.642 0 Weight 158.304 kg 158 kg Intake: IV 120 40 .9@10 120 40 Intake, IV Titration 288.642 Amount Heparin Sod,Pork in 0.45% 288.642 NaCl 25,000 unit In 0.45 % NaCl 1 250ml.bag @ 6. 317 UNITS/KG/HR 10 mls/hr IV .Q24H [facility] Rx#: [id number] Oral 200 0 0 Output: Urine 0 0 Hemodialysis 3000 Other: Voiding Method Urinal Urinal Urinal - Labs CBC & Chem 7: 11/24/20 19:24 11/25/20 21:18 Labs: Abnormal Lab Results - Last 24 Hours (Table) 11/25/20 11/25/20 11/25/20 Range/Units 12:02 12:07 13:00 Sodium (137-145) mmol/L Potassium 6.5 H* 6.5 H* (3.5-5.1) mmol/L Chloride (98-107) mmol/L BUN (9-20) mg/dL Creatinine (0.66-1.25) mg/dL Glucose (74-99) mg/dL POC Glucose (mg/dL) 429 H (75-99) mg/dL 11/25/20 11/25/20 11/25/20 Range/Units 17:30 20:19 21:18 Sodium 130 L (137-145) mmol/L Potassium 5.3 H (3.5-5.1) mmol/L Chloride 91 L (98-107) mmol/L BUN 41 H (9-20) mg/dL Creatinine 5.36 H (0.66-1.25) mg/dL Glucose 418 H (74-99) mg/dL POC Glucose (mg/dL) 272 H 447 H (75-99) mg/dL 11/26/20 Range/Units 07:13 Sodium (137-145) mmol/L Potassium (3.5-5.1) mmol/L Chloride (98-107) mmol/L BUN (9-20) mg/dL Creatinine (0.66-1.25) mg/dL Glucose (74-99) mg/dL POC Glucose (mg/dL) 265 H (75-99) mg/dL
--- NOTE | 2020-11-26 14:37 | P.PN ---
Subjective Progress Note Date: 11/26/20 HISTORY OF PRESENT ILLNESS: 11/25/2020 This is a 60-year-old male with a past medical history significant for chronic kidney disease on hemodialysis, hypertension, hyperlipidemia, TIA, and coronary artery disease with previous PCI to the RCA. Patient follows in the office with Dr. Liz. We have been asked to see the patient in consultation for chest pain. Patient examined at the bedside in the emergency room. Patient states he began having chest pain yesterday around 10 AM. He states the pain was very minimal at first and progressed throughout the day. He states the pain was right in the middle of his chest. He denies any radiation of the pain. He reported mild shortness of breath. Denied nausea or vomiting. Denies dizziness or lightheadedness. Patient states the pain is worse with deep inspiration. He does report some mild tenderness with chest wall palpation. Patient also reports he was switched to Plavix about 2 weeks ago from Brilinta as he was exp eriencing progressive shortness of breath with the Brilinta. He reports compliance with all of his medications and has not missed any doses. EKG reveals sinus mechanism with no signs of acute ischemia Chest xray no active cardiopulmonary disease Laboratory data: WBC 11.9. Hemoglobin 10.5. Platelet count 209. Sodium 130. Potassium 5.7. BUN 57. Creatinine 7.28. Troponins negative 3. BNP 1490. Current home cardiac medications include Demadex 40 mg daily, Plavix 75 mg daily, lisinopril 5 mg daily, Coreg 6.25 mg at night, Lipitor 40 mg daily, aspirin 81 mg daily Most recent echocardiogram obtained in October 2020 revealed ejection fraction 55-60% Cardiac catheterization history: October 2020. Patient presented to the hospital with an inferior STEMI and underwent stent placement to RCA. 11/26/2020 Patient examined this morning at the bedside. Patient denies any further episodes of chest pain or pressure. He denies shortness of breath. Patient was scheduled for Lexiscan stress test today but apparently he was drinking caffeine last night so this has been canceled for today. Vital signs stable. Echocardiogram completed revealed ejection fraction 60-65%, mild tricuspid re gurgitation, and small pericardial effusion near the left ventricle. PHYSICAL EXAM: VITAL SIGNS: Reviewed. GENERAL: Well-developed in no acute distress. HEENT: Head is normocephalic. Pupils are equal, round. Sclerae anicteric. Mucous membranes of the mouth are moist. Neck supple. No JVD or thyromegaly LUNGS: Respirations even and unlabored. Lungs essentially clear to auscultation bilaterally. HEART: Regular rate and rhythm. S1 and S2 heard. EXTREMITIES: Normal range of motion. No clubbing or cyanosis. Peripheral pulses intact. No lower extremity edema ASSESSMENT: Chest pain, with typical and atypical features, troponins negative 3 Coronary artery disease with previous PCI to RCA End-stage renal disease on hemodialysis Hypertension Hyperlipidemia TIA Diabetes mellitus with hyperglycemia Hyperkalemia Hyponatremia PLAN: Continue current cardiac medications Continue dual antiplatelet therapy with aspirin and Plavix Discontinue IV heparin and Nitropaste Patient to undergo Chrissy scan stress test tomorrow Further recommendations pending patient's course Nurse practitioner note has been reviewed by physician. Signing provider agrees with the documented findings, assessment, and plan of care. Objective - Vital Signs Vital signs: Vital Signs Temp 98.2 F 11/26/20 11:53 Pulse 75 11/26/20 11:53 Resp 20 11/26/20 11:53 BP 100/52 11/26/20 11:53 Pulse Ox 94 L 11/26/20 11:53 Intake & Output 11/25/20 11/26/20 11/26/20 18:59 06:59 18:59 Intake Total 320 328.642 122.525 Output Total 3000 0 0 Balance -2680 328.642 122.525 Weight 158.304 kg 158 kg Intake: IV 120 40 .9@10 120 40 Intake, IV Titration 288.642 122.525 Amount Heparin Sod,Pork in 0.45% 288.642 122.525 NaCl 25,000 unit In 0.45 % NaCl 1 250ml.bag @ 6. 317 UNITS/KG/HR 10 mls/hr IV .Q24H [facility] Rx#: [id number] Oral 200 0 0 Output: Urine 0 0 Hemodialysis 3000 Other: Voiding Method Urinal Urinal Urinal - Labs CBC & Chem 7: 11/24/20 19:24 11/25/20 21:18 Labs: Abnormal Lab Results - Last 24 Hours (Table) 11/25/20 11/25/20 11/25/20 Range/Units 17:30 20:19 21:18 APTT (22.0-30.0) sec Sodium 130 L (137-145) mmol/L Potassium 5.3 H (3.5-5.1) mmol/L Chloride 91 L (98-107) mmol/L BUN 41 H (9-20) mg/dL Creatinine 5.36 H (0.66-1.25) mg/dL Glucose 418 H (74-99) mg/dL POC Glucose (mg/dL) 272 H 447 H (75-99) mg/dL 11/26/20 11/26/20 11/26/20 Range/Units 07:13 11:49 12:11 APTT 37.7 H (22.0-30.0) sec Sodium (137-145) mmol/L Potassium (3.5-5.1) mmol/L Chloride (98-107) mmol/L BUN (9-20) mg/dL Creatinine (0.66-1.25) mg/dL Glucose (74-99) mg/dL POC Glucose (mg/dL) 265 H 335 H (75-99) mg/dL
[2020-11-26 16:57] LABS: Glucose,Whole Blood 296 mg/dL (75-99)
[2020-11-26 20:18] LABS: Glucose,Whole Blood 190 mg/dL (75-99)
[2020-11-26] MEDS: FOLIC ACID-VIT B COMPLEX-VIT C 1 CAP PO SCH (20:37)
[2020-11-26] MEDS: ATORVASTATIN 40 MG TAB PO SCH (20:37)
[2020-11-26] MEDS: LEVOTHYROXINE 100 MCG TAB PO SCH (20:37)
[2020-11-26] MEDS: carvediloL 6.25 MG TAB PO SCH (20:38)
[2020-11-26] MEDS: INSULIN DETEMIR (LEVEMIR) 100 UNIT/ML SYR SQ SCH (20:49)
[2020-11-26] MEDS ORDERED: allopurinoL 100 MG TAB PO SCH (21:00)
[2020-11-27] MEDS: HYDROcodone/APAP 10-325MG 1 EACH TAB PO PRN ×2 (00:25→13:42)
[2020-11-27] MEDS ORDERED: AMINOPHYLLINE 500 MG/20 ML VIAL IV PRN (06:00)
[2020-11-27] MEDS ORDERED: REGADENOSON 0.4 MG/5 ML SYRINGE IV PRN (06:00)
[2020-11-27] MEDS ORDERED: CAFFEINE CITRATE 60 MG/3 ML VIAL IV PRN (06:00)
[2020-11-27 06:32] LABS: Glucose,Whole Blood 228 mg/dL (75-99)
[2020-11-27] MEDS: INSULIN ASPART (NovoLOG) 100 UNIT/ML VIAL SQ SCH ×2 (06:53→13:00)
[2020-11-27 09:05] LABS: Calcium 8.7 mg/dL (8.4-10.2); Magnesium 3.5 mg/dL (1.6-2.3); Potassium 5.9 mmol/L (3.5-5.1)
[2020-11-27] MEDS: CALCIUM ACETATE 667 MG TAB PO SCH ×2 (10:26→13:00)
[2020-11-27] MEDS: INSULIN REGULAR 100 UNIT/ML VIAL SQ SCH ×2 (10:26→13:22)
[2020-11-27 12:16] LABS: Glucose,Whole Blood 272 mg/dL (75-99)
--- NOTE | 2020-11-27 14:22 | P.PN ---
Subjective Progress Note Date: 11/27/20 HISTORY OF PRESENT ILLNESS: 11/25/2020 This is a 60-year-old male with a past medical history significant for chronic kidney disease on hemodialysis, hypertension, hyperlipidemia, TIA, and coronary artery disease with previous PCI to the RCA. Patient follows in the office with Dr. Liz. We have been asked to see the patient in consultation for chest pain. Patient examined at the bedside in the emergency room. Patient states he began having chest pain yesterday around 10 AM. He states the pain was very minimal at first and progressed throughout the day. He states the pain was right in the middle of his chest. He denies any radiation of the pain. He reported mild shortness of breath. Denied nausea or vomiting. Denies dizziness or lightheadedness. Patient states the pain is worse with deep inspiration. He does report some mild tenderness with chest wall palpation. Patient also reports he was switched to Plavix about 2 weeks ago from Brilinta as he was exp eriencing progressive shortness of breath with the Brilinta. He reports compliance with all of his medications and has not missed any doses. EKG reveals sinus mechanism with no signs of acute ischemia Chest xray no active cardiopulmonary disease Laboratory data: WBC 11.9. Hemoglobin 10.5. Platelet count 209. Sodium 130. Potassium 5.7. BUN 57. Creatinine 7.28. Troponins negative 3. BNP 1490. Current home cardiac medications include Demadex 40 mg daily, Plavix 75 mg daily, lisinopril 5 mg daily, Coreg 6.25 mg at night, Lipitor 40 mg daily, aspirin 81 mg daily Most recent echocardiogram obtained in October 2020 revealed ejection fraction 55-60% Cardiac catheterization history: October 2020. Patient presented to the hospital with an inferior STEMI and underwent stent placement to RCA. 11/26/2020 Patient examined this morning at the bedside. Patient denies any further episodes of chest pain or pressure. He denies shortness of breath. Patient was scheduled for Lexiscan stress test today but apparently he was drinking caffeine last night so this has been canceled for today. Vital signs stable. Echocardiogram completed revealed ejection fraction 60-65%, mild tricuspid re gurgitation, and small pericardial effusion near the left ventricle. 11/27/2020 Patient examined at the bedside. He is currently receiving hemodialysis. Patient denies chest pain or pressure. Denies short of breath. Patient had a stress test performed this morning. Results are currently pending. PHYSICAL EXAM: VITAL SIGNS: Reviewed. GENERAL: Well-developed in no acute distress. HEENT: Head is normocephalic. Pupils are equal, round. Sclerae anicteric. Mucous membranes of the mouth are moist. Neck supple. No JVD or thyromegaly LUNGS: Respirations even and unlabored. Lungs essentially clear to auscultation bilaterally. HEART: Regular rate and rhythm. S1 and S2 heard. EXTREMITIES: Normal range of motion. No clubbing or cyanosis. Peripheral pulses intact. No lower extremity edema ASSESSMENT: Chest pain, with typical and atypical features, troponins negative 3 Coronary artery disease with previous PCI to RCA End-stage renal disease on hemodialysis Hypertension Hyperlipidemia TIA Diabetes mellitus with hyperglycemia Hyperkalemia Hyponatremia PLAN: Continue current cardiac medications Continue dual antiplatelet therapy with aspirin and Plavix Await results of stress test. If negative, patient may be discharged home today from a cardiac perspective Further recommendations pending patient's course Nurse practitioner note has been reviewed by physician. Signing provider agrees with the documented findings, assessment, and plan of care. Objective - Vital Signs Vital signs: Vital Signs Temp 98 F 11/27/20 11:52 Pulse 82 11/27/20 11:52 Resp 20 11/27/20 11:52 BP 153/72 11/27/20 11:52 Pulse Ox 99 11/27/20 11:52 Intake & Output 11/26/20 11/27/20 11/27/20 18:59 06:59 18:59 Intake Total 762.525 20 0 Output Total 0 0 0 Balance 762.525 20 0 Weight 158.7 kg 158.7 kg Intake: IV 160 20 .9@10 160 Invasive Line 1 20 Intake, IV Titration 122.525 Amount Heparin Sod,Pork in 0.45% 122.525 NaCl 25,000 unit In 0.45 % NaCl 1 250ml.bag @ 6. 317 UNITS/KG/HR 10 mls/hr IV .Q24H [facility] Rx#: [id number] Oral 480 0 Output: Urine 0 0 0 Other: Voiding Method Urinal Urinal # Bowel Movements 0 - Labs CBC & Chem 7: 11/24/20 19:24 11/27/20 07:41 Labs: Abnormal Lab Results - Last 24 Hours (Table) 11/26/20 11/26/20 11/27/20 Range/Units 16:55 20:17 06:31 Sodium (137-145) mmol/L Potassium (3.5-5.1) mmol/L Chloride (98-107) mmol/L BUN (9-20) mg/dL Creatinine (0.66-1.25) mg/dL Glucose (74-99) mg/dL POC Glucose (mg/dL) 296 H 190 H 228 H (75-99) mg/dL Magnesium (1.6-2.3) mg/dL 11/27/20 11/27/20 Range/Units 07:41 12:15 Sodium 133 L (137-145) mmol/L Potassium 5.9 H (3.5-5.1) mmol/L Chloride 94 L (98-107) mmol/L BUN 67 H (9-20) mg/dL Creatinine 7.83 H* (0.66-1.25) mg/dL Glucose 216 H (74-99) mg/dL POC Glucose (mg/dL) 272 H (75-99) mg/dL Magnesium 3.5 H (1.6-2.3) mg/dL
--- NOTE | 2020-11-27 14:49 | P.DS ---
Providers Date of admission: 11/24/20 20:15 Expected date of discharge: 11/27/20 Attending physician: Meng Jimenez Consults: 11/24/20 20:15 Consult Physician Urgent Consulting Provider: [facility] Consult Reason/Comments: Unstable angina Do you want consulting provider notified?: Yes 11/25/20 08:19 Consult Physician Routine Consulting Provider: Chacho Dove Consult Reason/Comments: dialysis patient Do you want consulting provider notified?: Yes Primary care physician: Hayes Oshea [facility] Course: HISTORY OF PRESENT ILLNESS This is a 60-year-old male patient of Dr. Oshea and Dr. Liz with past medical history of end-stage renal disease on hemodialysis Tuesday, hypertension, hyperlipidemia, diabetes mellitus type 2 insulin requiring, obstructive sleep apnea, GERD, diabetic neuropathy, diabetic retinopathy, hypothyroidism TIA, morbid obesity history of prostate cancer status post radiation therapy in 2016 in remission, anemia of chronic kidney disease, generalized anxiety disorder. Patient was recently hospitalized and discharged on October 23 at which time he was treated for acute inferior wall myocardial infarction status post angioplasty of the right coronary artery. Patient states he developed chest pain and shortness of breath similar to what he was having for his recent heart attack. Pain started yesterday morning at 10:30 became worse throughout the day. No nausea, no diaphoresis, no radiation of the pain, no fever or chills, no cough, no abdominal pain, no nausea, vomiting or diarrhea. Patient was found to be afebrile, heart rate 92, blood pressure 182/73. EKG was a sinus rhythm with no acute ST changes. Chest x-ray showed no acute abnormality. WBC 11.9, hemoglobin 10.5, platelet count 209. Sodium 130, potassium 5.7, chloride 83, CO2 35, BUN 57 creatinine 7.28. Blood sugar 430. Note the patient did not receive his Lantus last evening and blood sugars have continued in the 400s. Liver function tests normal. Troponin negative on 3 draws. ProBNP 1490. Coronavirus PCR not detected. Echocardiogram reveals EF of 6065% with moderate concentric left ventricular hypertrophy, mild tricuspid regurgitation, small pericardial effusion. Patient to be admitted to the cardiac stepdown unit and consult in place with nephrology and cardiology. 11/26: Patient states that he had a drink of pop last night to take his medications and because the caffeine stress test was delayed until tomorrow. He is currently denying any chest pain or shortness of breath. No lightheadedness or dizziness. Dr. Dove has held lisinopril due to hyperkalemia. Patient is scheduled for hemodialysis tomorrow. Patient has a febrile, heart rate 75, blood pressure 110/54, pulse ox 97% on room air. Patient is utilized CPAP during the night. Blood sugars have been 265-418. He was given additional dose of NovoLog last evening and scheduled Novolin with meals will be increased to his home dose of 30 units 3 times daily. IV heparin has been discontinued. 11/27: Patient has undergone Lexiscan stress test. He has been afebrile, heart rate 77, blood pressure 143/66, pulse ox 99% on room air. Patient did use CPAP during the night. Sodium 133, potassium 5.9, chloride 94, CO2 23, BUN 67 and creatinine 7.83. Blood sugars running 216-272. ASSESSMENT AND PLAN 1. Chest pain, acute coronary syndrome ruled out. 2. Recent acute inferior wall myocardial infarction status post angioplasty of the right coronary artery. 3. End-stage renal disease on hemodialysis Tuesday. 4. Hypertension. 5. Hyperlipidemia. 6. Diabetes mellitus type 2 insulin requiring, uncontrolled with hyperglycemia. 7. Obstructive sleep apnea with CPAP. 8. Gastroesophageal reflux disease. 9. Diabetes with diabetic neuropathy and diabetic retinopathy. 10. Hypothyroidism. 11. Super morbid obesity with BMI of 48. 12. History of prostate cancer status post radiation therapy in 2017 in remission. 13. Anemia of chronic kidney disease. 14. Chronic gout. DISCHARGE PLAN Return home. Impression and plan of care have been directed as dictated by the signing physician. Laine Jones nurse practitioner acting as scribe for signing physician. Patient Condition at Discharge: Good Plan - Discharge Summary Discharge Rx Participant: No New Discharge Prescriptions: Continue Atorvastatin [Lipitor] 40 mg PO HS Levothyroxine Sodium 100 mcg PO HS Torsemide [Demadex] 40 mg PO DAILY Bryanna-Olimpia 1 tab PO DAILY lisinopriL [Zestril] 5 mg PO BID Carvedilol [Coreg] 6.25 mg PO HS Magnebind 300mg 1 tab PO BID Allopurinol [Zyloprim] 300 mg PO HS Magnesium Hydroxide [Milk of Magnesia] 2,400 mg PO DAILY PRN PRN Reason: Constipation Aspirin 81 mg PO DAILY #90 chew Nitroglycerin Sl Tabs [Nitrostat] 0.4 mg SUBLINGUAL Q5M PRN #25 tab PRN Reason: Chest Pain Calcium Acetate [PhosLo] 1,334 mg PO TID-W/MEALS tab Clopidogrel Bisulfate [Plavix] 75 mg PO DAILY Lactulose [Cephulac] 30 gm PO DAILY PRN PRN Reason: Constipation Insulin Regular, Human [Novolin R Flexpen] 30 unit SQ AC-TID Insulin Detemir [Levemir Flextouch] 60 units SQ HS HYDROcodone/APAP 10-325MG [[place] 10-325] 1 tab PO QID PRN PRN Reason: Pain Calcium Carbonate [Tums Ultra Strength] 2,354 mg PO AC-BID PRN PRN Reason: Gi Upset Discharge Medication List Atorvastatin [Lipitor] 40 mg PO HS 08/07/14 [History] Levothyroxine Sodium 100 mcg PO HS 07/06/17 [History] Torsemide [Demadex] 40 mg PO DAILY 09/10/19 [History] Allopurinol [Zyloprim] 300 mg PO HS 10/20/20 [History] Carvedilol [Coreg] 6.25 mg PO HS 10/20/20 [History] Magnebind 300mg 1 tab PO BID 10/20/20 [History] Magnesium Hydroxide [Milk of Magnesia] 2,400 mg PO DAILY PRN 10/20/20 [History] Bryanna-Olimpia 1 tab PO DAILY 10/20/20 [History] lisinopriL [Zestril] 5 mg PO BID 10/20/20 [History] Aspirin 81 mg PO DAILY #90 chew 10/22/20 [Rx] Calcium Acetate [PhosLo] 1,334 mg PO TID-W/MEALS tab 10/23/20 [Rx] Nitroglycerin Sl Tabs [Nitrostat] 0.4 mg SUBLINGUAL Q5M PRN #25 tab 10/23/20 [Rx] Calcium Carbonate [Tums Ultra Strength] 2,354 mg PO AC-BID PRN 11/24/20 [History] Clopidogrel Bisulfate [Plavix] 75 mg PO DAILY 11/24/20 [History] HYDROcodone/APAP 10-325MG [[place] 10-325] 1 tab PO QID PRN 11/24/20 [History] Insulin Detemir [Levemir Flextouch] 60 units SQ HS 11/24/20 [History] Insulin Regular, Human [Novolin R Flexpen] 30 unit SQ AC-TID 11/24/20 [History] Lactulose [Cephulac] 30 gm PO DAILY PRN 11/24/20 [History] Follow up Appointment(s)/Referral(s): Hayes Oshea MD [Primary Care Provider] - 1 Week Malu Liz MD [STAFF PHYSICIAN] - 1 Week Discharge Disposition: HOME SELF-CARE
[2020-11-27 15:35] VITALS: BP 117/96; PULSE 92; RESP 18; TEMP 98.2
--- NOTE | 2020-11-27 15:51 | NM ---
EXAMINATION TYPE: NM stress lexiscan cardiolite DATE OF EXAM: 11/27/2020 COMPARISON: NONE HISTORY: Chest pain TECHNIQUE: After the intravenous administration of 9.9 mCi Tc 99m Sestamibi - Cardiolite resting SPE CT images acquired 45 minutes post injection. At peak stress 24.0 mCi Tc 99m Sestamibi - Stress images obtained 30 minutes post injection The patient was stressed with 0.4mg Lexiscan. FINDINGS: No fixed defects are evident. No reversible stress defects on Spect images Very subtle dyskinesia of the mid anterior wall at peak systole may be present. Wall motion is otherw ise unremarkable Ejection fraction is calculated to be 63 %. IMPRESSION: 1. No scintigraphic evidence for reversible ischemia. 2. Very subtle dyskinesia of the mid anterior wall may be present at peak systole. All motion is othe rwise unremarkable. 3. Normal ejection fraction
[2020-11-27] MEDS: ASPIRIN 81 MG PO SCH (16:21)
[2020-11-27] MEDS: CLOPIDOGREL 75 MG TAB PO SCH (16:21)
--- NOTE | 2020-11-27 17:51 | P.STRESS ---
- Stress Test Note Stress Test Results/Findings: Exam Performed: NM stress lexiscan cardiolite Exam Date: 11/27/20 Reason for Exam: Chest Pain Height: 5 ft 11 in Weight: 158.7 kg Protocol: Lexiscan Stage: na Duration of Exercise: na Resting Heart Rate: 80 Resting Blood Pressure: 123/67 Maximum Achieved Heart Rate: 86 Maximum Achieved Blood Pressure: 128/62 85% PMHR: 136 100% PMHR: 160 METS: na Technologist Comment: Stress Test Results/Findings: At baseline EKG showed normal sinus rhythm, normal axis, diffuse [address] depressions 2, 3, aVF, V4 through V6 with mild NH depression, no reciprocal changes. Patient recieved IV infusion of Lexiscan 0.4mg and at peak infusion EKG showed significant change from baseline. Conclusions: 1. Normal EKG response to Lexiscan infusion. 2. Abnormal resting EKG with diffuse ST elevations without reciprocal changes. Can be seen in the setting of pericarditis. Clinical correlation recommended. 3. Nuclear imaging to be reported separately.
[2020-11-27] MEDS ORDERED: lisinopriL 5 MG TAB PO SCH (21:00)
== END 2020-11-27 16:41 | disposition home or self-care (01) | DRG 313 ==
LOC: EC 18:49 → 3SCARD 20:15
PROVIDERS: ADMIT Internal Medicine Geriatric Medicine; ATTEND Internal Medicine Geriatric Medicine
PROC: 5A1D70Z Performance of Urinary Filtration, Intermittent, Less than 6 Hours Per Day (ICD-10-PCS; principal; 2020-11-20)
DX: R07.89 Other chest pain (principal); N18.6 End stage renal disease; Z68.42 Body mass index [BMI] 45.0-49.9, adult; E87.1 Hypo-osmolality and hyponatremia; G45.9 Transient cerebral ischemic attack, unspecified; I12.0 Hypertensive chronic kidney disease with stage 5 chronic kidney disease or end stage renal disease; I25.2 Old myocardial infarction; E11.22 Type 2 diabetes mellitus with diabetic chronic kidney disease; Z99.2 Dependence on renal dialysis; Z79.82 Long term (current) use of aspirin; Z79.02 Long term (current) use of antithrombotics/antiplatelets; Z79.4 Long term (current) use of insulin; Z92.3 Personal history of irradiation; Z86.73 Personal history of transient ischemic attack (TIA), and cerebral infarction without residual deficits; Z85.46 Personal history of malignant neoplasm of prostate; E03.9 Hypothyroidism, unspecified; I25.10 Atherosclerotic heart disease of native coronary artery without angina pectoris; Z82.0 Family history of epilepsy and other diseases of the nervous system; Z82.3 Family history of stroke; Z82.49 Family history of ischemic heart disease and other diseases of the circulatory system; E78.5 Hyperlipidemia, unspecified; G47.33 Obstructive sleep apnea (adult) (pediatric); E11.40 Type 2 diabetes mellitus with diabetic neuropathy, unspecified; E11.319 Type 2 diabetes mellitus with unspecified diabetic retinopathy without macular edema; E66.01 Morbid (severe) obesity due to excess calories; D63.1 Anemia in chronic kidney disease; Z87.891 Personal history of nicotine dependence; Z95.5 Presence of coronary angioplasty implant and graft; M1A.9XX0 Chronic gout, unspecified, without tophus (tophi); K21.9 Gastro-esophageal reflux disease without esophagitis; E11.65 Type 2 diabetes mellitus with hyperglycemia; E87.5 Hyperkalemia; E83.41 Hypermagnesemia; T46.4X5A Adverse effect of angiotensin-converting-enzyme inhibitors, initial encounter; Y92.239 Unspecified place in hospital as the place of occurrence of the external cause; E83.42 Hypomagnesemia; F41.1 Generalized anxiety disorder; K59.00 Constipation, unspecified; M89.8X9 Other specified disorders of bone, unspecified site; Z83.3 Family history of diabetes mellitus; Z20.822 Contact with and (suspected) exposure to COVID-19
CPT/HCPCS: 36415; 71046; 78452; 80048; 80053; 80061; 83735; 83880; 84132; 84484; 85025; 85610; 85730; 87635; 90935; 93005; 93017; 93306

== ENCOUNTER 2020-12-03 11:50 | Inpatient (IN) | payer MEDICARE, BC ==
[2020-12-03] MEDS ORDERED: NITROGLYCERIN OINT 1 INCH/GM PACKET TOPICAL STA (11:58)
--- NOTE | 2020-12-03 12:04 | ED ---
General Adult HPI - General Chief complaint: Shortness of Breath Stated complaint: STEMI Time Seen by Provider: 12/03/20 11:50 Source: patient, EMS, RN notes reviewed, old records reviewed Mode of arrival: EMS Limitations: no limitations - History of Present Illness Initial comments: This is a 60-year-old male who presents emergency Department with a past medical history significant for stent placement for a heart attack 7 weeks ago. Patient states she was back in the hospital about 3 weeks ago with some chest discomfort and he had a stress test and they told her breathing was fine. Patient comes in today because he was short of breath per patient states yesterday he was short of breath and hypotensive at dialysis and had to go very slow taking of fluid but after that he felt fine. Patient states he was lying around in bed all day today but when he got up to walk around he was extremely short of breath. Patient denies any chest pain or pressure. Patient denies any palpitations. Patient denies any fever chills or cough. Patient denies any known exposure COVID. Patient denies any lightheadedness or dizziness. Patient denies any ab dominal pain patient denies nausea vomiting diarrhea. Patient denies any increased swelling. - Related Data Home Medications Medication Instructions Recorded Confirmed Atorvastatin [Lipitor] 40 mg PO HS 08/07/14 12/03/20 Levothyroxine Sodium 100 mcg PO HS 07/06/17 12/03/20 Torsemide [Demadex] 40 mg PO DAILY 09/10/19 12/03/20 Allopurinol [Zyloprim] 300 mg PO HS 10/20/20 12/03/20 Carvedilol [Coreg] 6.25 mg PO HS 10/20/20 12/03/20 Magnebind 300mg 1 tab PO BID 10/20/20 12/03/20 Magnesium Hydroxide [Milk of 2,400 mg PO DAILY PRN 10/20/20 12/03/20 Magnesia] Bryanna-Olimpia 1 tab PO DAILY 10/20/20 12/03/20 lisinopriL [Zestril] 5 mg PO BID 10/20/20 12/03/20 Calcium Carbonate [Tums Ultra 2,354 mg PO AC-BID PRN 11/24/20 12/03/20 Strength] Clopidogrel Bisulfate [Plavix] 75 mg PO DAILY 11/24/20 12/03/20 HYDROcodone/APAP 10-325MG [[place] 1 tab PO QID PRN 11/24/20 12/03/20 10-325] Insulin Detemir [Levemir Flextouch] 60 units SQ HS 11/24/20 12/03/20 Insulin Regular, Human [Novolin R 30 unit SQ AC-TID 11/24/20 12/03/20 Flexpen] Lactulose [Cephulac] 30 gm PO DAILY PRN 11/24/20 12/03/20 Previous Rx's Medication Instructions Recorded Aspirin 81 mg PO DAILY #90 chew 10/22/20 Calcium Acetate [PhosLo] 1,334 mg PO TID-W/MEALS tab 10/23/20 Nitroglycerin Sl Tabs [Nitrostat] 0.4 mg SUBLINGUAL Q5M PRN #25 tab 10/23/20 Allergies Allergy/AdvReac Type Severity Reaction Status Date / Time No Known Allergies Allergy Verified 12/03/20 12:26 Review of Systems ROS Statement: Those systems with pertinent positive or pertinent negative responses have been documented in the HPI. ROS Other: All systems not noted in ROS Statement are negative. Past Medical History Past Medical History: Coronary Artery Disease (CAD), Cancer, Heart Failure, CVA/TIA, Diabetes Mellitus, Eye Disorder, Hypertension, Myocardial Infarction (NC), Renal Disease, Sleep Apnea/CPAP/BIPAP, Thyroid Disorder Additional Past Medical History / Comment(s): IDDM type II, neuropathy bilateral lower extremity/feet, bilateral eye diabetic retinopathy/poor vision/multiple injections, ESRD with hemodialysis T//TUE, anemia, "mini strokes" x2, AVANI with CPap use, occasional low back pain/disc disease, gout, hypothyroid Last Myocardial Infarction Date:: 10/20/20 History of Any Multi-Drug Resistant Organisms: None Reported Past Surgical History: Adenoidectomy, Bariatric Surgery, Cholecystectomy, Heart Catheterization, Heart Catheterization With Stent, Orthopedic Surgery, Tonsillec rema Additional Past Surgical History / Comment(s): 10/22/20 PCI with stents, lap banding, FX of right ankle repair pins / plate, fistual lt arm jul 2018, lt shoulder sx (d/t separation), colonoscopies, bilateral cataract removals/lens implants. Past Anesthesia/Blood Transfusion Reactions: Motion Sickness Additional Past Anesthesia/Blood Transfusion Reaction / Comment(s): CLAUSTERPHOBIA Date of Last Stent Placement:: 10/22/20 Past Psychological History: Anxiety Smoking Status: Former smoker - Past Family History Mother History Unknown: Yes Family Medical History: Coronary Artery Disease (CAD), Diabetes Mellitus, Myocardial Infarction (NC) Additional Family Medical History / Comment(s): Mother at age 58 from multiple sclerosis Father Family Medical History: CVA/TIA, Myocardial Infarction (NC) Additional Family Medical History / Comment(s): Father had history of NC and CVA followed by a second NC and CVA and at age 65. Brother(s) Additional Family Medical History / Comment(s): . General Exam - General Exam Comments Initial Comments: GENERAL: Patient is well-developed and well-nourished. Patient is nontoxic and well- hydrated and is in no acute distress. Patient is oxygenating at 97% on 2 L ENT: Neck is soft and supple. No significant lymphadenopathy is noted. Oropharynx is clear. Moist mucous membranes. Neck has full range of motion without eliciting any pain. EYES: The sclera were anicteric and conjunctiva were pink and moist. Extraocular movements were intact and pupils were equal round and reactive to light. Eyelids were unremarkable. PULMONARY: Unlabored respirations. Good breath sounds bilaterally. No audible rales rhonchi or wheezing was noted. CARDIOVASCULAR: There is a regular rate and rhythm without any murmurs gallops or rubs. ABDOMEN: Soft and nontender with normal bowel sounds. SKIN: Skin is clear with no lesions or rashes and otherwise unremarkable. NEUROLOGIC: Patient is alert and oriented x3. Cranial nerves II through XII are grossly intact. Motor and sensory are also intact. Normal speech, volume and content. Symmetrical smile. MUSCULOSKELETAL: Normal extremities with adequate strength and full range of motion. No calf tenderness. LYMPHATICS: No significant lymphadenopathy is noted PSYCHIATRIC: Normal psychiatric evaluation. Limitations: no limitations Course Vital Signs 12/03/20 12/03/20 12/03/20 11:56 12:01 14:05 Temperature 100.5 F H Pulse Rate 101 H 80 Respiratory 18 22 20 Rate Blood Pressure 100/73 120/103 O2 Sat by Pulse 98 100 Oximetry 12/03/20 14:14 Temperature 98.9 F Pulse Rate Respiratory Rate Blood Pressure O2 Sat by Pulse Oximetry Medical Decision Making - Medical Decision Making EKG shows normal sinus rhythm at 90 bpm AZ interval 252 QRS is 88 QT interval 370 QTC is 472. Patient's EKG shows slight ST segment elevation in leads II, III, and F aVF. Patient has no chest pain at this time. I spoke with Dr. Hess she agreed that giving the patient 2 L of fluid while in DKA would be okay. She will monitor his potassium. Patient received a bolus of insulin as well as an insulin drip and 2 L of fluid. Patient received a gram of Rocephin secondary to the 100.4 fever. Patient's liver enzymes are very elevated I did a hepatitis panel. The palate spoke with Dr. May she agreed to admit the patient admitted the patient I will be consult saying nephrology and GI in the ICU doctor. - Lab Data Result diagrams: 12/03/20 12:08 12/03/20 12:08 Lab Results 12/03/20 12/03/20 12/03/20 Range/Units 12:08 12:08 12:08 WBC 13.9 H (3.8-10.6) k/uL RBC 2.71 L (4.30-5.90) m/uL Hgb 8.5 L D (13.0-17.5) gm/dL Hct 26.6 L (39.0-53.0) % MCV 98.1 (80.0-100.0) fL MCH 31.3 (25.0-35.0) pg MCHC 31.9 (31.0-37.0) g/dL RDW 16.1 H (11.5-15.5) % Plt Count 286 (150-450) k/uL MPV 7.8 Neutrophils % 86 % Lymphocytes % 7 % Monocytes % 5 % Eosinophils % 0 % Basophils % 0 % Neutrophils # 11.9 H (1.3-7.7) k/uL Lymphocytes # 1.0 (1.0-4.8) k/uL Monocytes # 0.7 (0-1.0) k/uL Eosinophils # 0.0 (0-0.7) k/uL Basophils # 0.1 (0-0.2) k/uL Anisocytosis Slight Macrocytosis Slight PT 11.6 (9.0-12.0) sec INR 1.1 (<1.2) APTT 25.0 (22.0-30.0) sec Sodium 125 L (137-145) mmol/L Potassium 7.5 H* (3.5-5.1) mmol/L Chloride 85 L (98-107) mmol/L Carbon Dioxide 22 (22-30) mmol/L Anion Gap 18 mmol/L BUN 56 H (9-20) mg/dL Creatinine 6.30 H (0.66-1.25) mg/dL Est GFR (CKD-EPI)AfAm 10 (>60 ml/min/1.73 sqM) Est GFR (CKD-EPI)NonAf 9 (>60 ml/min/1.73 sqM) Glucose 584 H* (74-99) mg/dL POC Glucose (mg/dL) (75-99) mg/dL POC Glu Sales Branch Manager ID Calcium 8.2 L (8.4-10.2) mg/dL Magnesium 3.4 H (1.6-2.3) mg/dL Total Bilirubin 1.3 (0.2-1.3) mg/dL AST 1897 H (17-59) U/L ALT 1615 H (4-49) U/L Alkaline Phosphatase 214 H (38-126) U/L Troponin I (0.000-0.034) ng/mL NT-Pro-B Natriuret Pep pg/mL Total Protein 7.0 (6.3-8.2) g/dL Albumin 3.8 (3.5-5.0) g/dL Acetone, Qual (Negative) Coronavirus (PCR) (Not Detectd) 12/03/20 12/03/20 12/03/20 Range/Units 12:08 12:08 12:08 WBC (3.8-10.6) k/uL RBC (4.30-5.90) m/uL Hgb (13.0-17.5) gm/dL Hct (39.0-53.0) % MCV (80.0-100.0) fL MCH (25.0-35.0) pg MCHC (31.0-37.0) g/dL RDW (11.5-15.5) % Plt Count (150-450) k/uL MPV Neutrophils % % Lymphocytes % % Monocytes % % Eosinophils % % Basophils % % Neutrophils # (1.3-7.7) k/uL Lymphocytes # (1.0-4.8) k/uL Monocytes # (0-1.0) k/uL Eosinophils # (0-0.7) k/uL Basophils # (0-0.2) k/uL Anisocytosis Macrocytosis PT (9.0-12.0) sec INR (<1.2) APTT (22.0-30.0) sec Sodium (137-145) mmol/L Potassium (3.5-5.1) mmol/L Chloride (98-107) mmol/L Carbon Dioxide (22-30) mmol/L Anion Gap mmol/L BUN (9-20) mg/dL Creatinine (0.66-1.25) mg/dL Est GFR (CKD-EPI)AfAm (>60 ml/min/1.73 sqM) Est GFR (CKD-EPI)NonAf (>60 ml/min/1.73 sqM) Glucose (74-99) mg/dL POC Glucose (mg/dL) (75-99) mg/dL POC Glu Sales Branch Manager ID Calcium (8.4-10.2) mg/dL Magnesium (1.6-2.3) mg/dL Total Bilirubin (0.2-1.3) mg/dL AST (17-59) U/L ALT (4-49) U/L Alkaline Phosphatase (38-126) U/L Troponin I <0.012 (0.000-0.034) ng/mL NT-Pro-B Natriuret Pep 2870 pg/mL Total Protein (6.3-8.2) g/dL Albumin (3.5-5.0) g/dL Acetone, Qual (Negative) Coronavirus (PCR) Not Detected (Not Detectd) 12/03/20 12/03/20 12/03/20 Range/Units 12:08 14:11 14:12 WBC (3.8-10.6) k/uL RBC (4.30-5.90) m/uL Hgb (13.0-17.5) gm/dL Hct (39.0-53.0) % MCV (80.0-100.0) fL MCH (25.0-35.0) pg MCHC (31.0-37.0) g/dL RDW (11.5-15.5) % Plt Count (150-450) k/uL MPV Neutrophils % % Lymphocytes % % Monocytes % % Eosinophils % % Basophils % % Neutrophils # (1.3-7.7) k/uL Lymphocytes # (1.0-4.8) k/uL Monocytes # (0-1.0) k/uL Eosinophils # (0-0.7) k/uL Basophils # (0-0.2) k/uL Anisocytosis Macrocytosis PT (9.0-12.0) sec INR (<1.2) APTT (22.0-30.0) sec Sodium (137-145) mmol/L Potassium (3.5-5.1) mmol/L Chloride (98-107) mmol/L Carbon Dioxide (22-30) mmol/L Anion Gap mmol/L BUN (9-20) mg/dL Creatinine (0.66-1.25) mg/dL Est GFR (CKD-EPI)AfAm (>60 ml/min/1.73 sqM) Est GFR (CKD-EPI)NonAf (>60 ml/min/1.73 sqM) Glucose (74-99) mg/dL POC Glucose (mg/dL) 590 H >600 H (75-99) mg/dL POC Glu Sales Branch Manager ID Perico Starkey Bradley Calcium (8.4-10.2) mg/dL Magnesium (1.6-2.3) mg/dL Total Bilirubin (0.2-1.3) mg/dL AST (17-59) U/L ALT (4-49) U/L Alkaline Phosphatase (38-126) U/L Troponin I (0.000-0.034) ng/mL NT-Pro-B Natriuret Pep pg/mL Total Protein (6.3-8.2) g/dL Albumin (3.5-5.0) g/dL Acetone, Qual Positive (Negative) Coronavirus (PCR) (Not Detectd) Critical Care Time Critical Care Time: Yes Total Critical Care Time: 35 Disposition Clinical Impression: Diabetic ketoacidosis, Anemia, Hepatitis, Hyperkalemia, Fever, Dyspnea Disposition: ADMITTED IP TO THIS HOSP Referrals: Hayes Oshea MD [Primary Care Provider] - 1-2 days Time of Disposition: 14:42
[2020-12-03 12:39] LABS: INR 1.1 (<1.2); Prothrombin Time 11.6 sec (9.0-12.0)
[2020-12-03 12:49] LABS: Albumin 3.8 g/dL (3.5-5.0); Calcium 8.2 mg/dL (8.4-10.2); Magnesium 3.4 mg/dL (1.6-2.3); Total Bilirubin 1.3 mg/dL (0.2-1.3)
[2020-12-03 12:57] LABS: Anisocytosis Slight; Basophils # (A) 0.1 k/uL (0-0.2); Basophils % (A) 0 %; Eosinophils % (A) 0 %; HCT 26.6 % (39.0-53.0); Lymphocytes % (A) 7 %; MCH 31.3 pg (25.0-35.0); MCHC 31.9 g/dL (31.0-37.0); MCV 98.1 fL (80.0-100.0); Macrocytosis Slight; Mean Platelet Volume 7.8; Monocytes # (A) 0.7 k/uL (0-1.0); Monocytes % (A) 5 %; Neutrophils # (A) 11.9 k/uL (1.3-7.7); Neutrophils % (A) 86 %; Platelet Count 286 k/uL (150-450); RBC 2.71 m/uL (4.30-5.90); RDW 16.1 % (11.5-15.5); WBC 13.9 k/uL (3.8-10.6)
[2020-12-03 12:58] LABS: HGB 8.5 gm/dL (13.0-17.5)
[2020-12-03] MEDS ORDERED: ACETAMINOPHEN TAB 500 MG TAB PO STA (13:11)
[2020-12-03 13:14] LABS: Potassium 7.5 mmol/L (3.5-5.1)
[2020-12-03] MEDS ORDERED: INSULIN REGULAR BOLUS (FROM DRIP BAG) IV ONE (13:42)
[2020-12-03] MEDS ORDERED: Magnesium Replacement Protocol 1 EACH MISC MISCELLANE PRN (13:42)
[2020-12-03] MEDS ORDERED: Potassium Replacement Protocol 1 EACH MISC MISCELLANE PRN (13:42)
[2020-12-03] MEDS ORDERED: SODIUM CHLORIDE 0.9% 1,000 ML IV ONE ×2 (13:44→14:01)
[2020-12-03] MEDS ORDERED: cefTRIAXone IN SWFI 1,000 MG/10 ML SYRINGE IVP STA (14:02)
[2020-12-03] MEDS: SODIUM CHLORIDE 0.9% 1,000 ML IV SCH ×3 (14:10→20:55)
[2020-12-03 14:13] LABS: Glucose,Whole Blood 590 mg/dL (75-99)
[2020-12-03 14:13] LABS: Glucose,Whole Blood >600 mg/dL (75-99)
--- NOTE | 2020-12-03 14:14 | XR ---
EXAMINATION TYPE: XR chest 2V DATE OF EXAM: 12/03/2020 COMPARISON: 11/24/2020 INDICATION: Chest pain TECHNIQUE: Frontal and lateral views of the chest are obtained. FINDINGS: The heart size is moderately prominent. The pulmonary vasculature is normal. The lungs are clear. IMPRESSION: 1. Cardiomegaly
[2020-12-03] MEDS: INSULIN REGULAR 100 UNIT in SODIUM CHLORIDE 0.9% 100 ML IV SCH ×3 (14:24→18:50)
[2020-12-03] MEDS: HYDROcodone/APAP 10-325MG 1 EACH TAB PO PRN (14:27)
[2020-12-03] MEDS ORDERED: NALOXONE 0.4 MG/ML 1 ML VIAL IV PRN (14:46)
[2020-12-03 14:53] LABS: Glucose,Whole Blood 537 mg/dL (75-99)
[2020-12-03 15:45] LABS: VBG PH 7.36 (7.31-7.41)
[2020-12-03 15:51] LABS: Glucose,Whole Blood 469 mg/dL (75-99)
[2020-12-03 15:52] LABS: INR 1.2 (<1.2); Partial Thromboplastin Time 23.5 sec (22.0-30.0); Prothrombin Time 12.4 sec (9.0-12.0)
[2020-12-03 15:53] LABS: African American GFR (CKD) 10 (>60 ml/min/1.73 sqM); Alcohol <10 mg/dL; Anion Gap 17 mmol/L; Blood Urea Nitrogen 55 mg/dL (9-20); Carbon Dioxide 24 mmol/L (22-30); Chloride 91 mmol/L (98-107); Glucose 471 mg/dL (74-99); Non-African American GFR(CKD) 8 (>60 ml/min/1.73 sqM); Sodium 132 mmol/L (137-145)
[2020-12-03 16:04] LABS: Potassium 6.3 mmol/L (3.5-5.1)
[2020-12-03] MEDS ORDERED: VANCOMYCIN 1,000 MG in SODIUM CHLORIDE 0.9% 250 ML IVPB STA (17:23)
--- NOTE | 2020-12-03 17:23 | P.CNPUL ---
History of Present Illness Consult date: 12/03/20 Reason for consult: dyspnea History of present illness: 60-year-old male patient presented to the ED with worsening shortness of breath. The patient has multiple medical problems and comorbidities. First of all, the patient has incisional disease and the patient on hemodialysis 3 times a week, TTS in addition to diabetes mellitus type 2 on insulin, hypertension, hyperlipidemia, obstructive sleep apnea maintained on CPAP, diabetes mellitus with diabetic neuropathy and retinopathy, hypothyroidism and history of prostate cancer. The patient also has gout. The patient is morbidly obese and carries a BMI of 48.7. Also, the patient was involved in acute inferior wall myocardial infarction requiring angioplasty of the right coronary artery he weeks back. The patient came into the hospital because of worsening shortness of breath. The patient was found also to be hypotensive during dialysis and the dialysis had to be done at a low rate. The patient also stated that he was feeling weak and he was in bed all the time and he was unable to get up and walk along with his shortness of breath. He denies having any chest pain. Denied having any palpitation. No reported fever or chills. No reported nausea vomiting or abdominal pain. In the ED, his blood pressure was noted to be low and he was given a bolus of 1 L of IV fluids. No pressors were initiated. The patient a white cell count of 13.9, hemoglobin of 8.5 with a platelet count of 26, coagulation profile is within normal limits, initial potassium level was 7.7 the patient is a 22 with anion gap of 18. Noted the patient's blood sugar was above 600. Lactic acid level was at 5.4. Phosphorus was at 3.4 with a calcium level of 8.2. AST was 1897 and ALT was 1615 with a normal alkaline phosphatase of 215 and a troponin was negative with a proBNP level of 2870. The patient was given insulin and the blood sugars started to improve. Currently the patient on insulin drip at 0.1 units per kilogram per hour and the most recent potassium level is down to 6.3. Sugar is at 471. Alcohol level was negative. Covid 19 testing was also negative. Chest x-ray shows cardiomegaly otherwise no other acute abnormalities of been noted. The EKG is consistent with normal sinus rhythm. Nonspecific ST segment abnormalities. Review of Systems Constitutional: Reports fatigue, Reports poor appetite, Reports weakness Eyes: denies as per HPI, denies blurred vision, denies bulging eye, denies decreased vision, denies diplopia, denies discharge, denies dry eye, denies irritation, denies itching, denies pain, denies photophobia, denies loss of peripheral vision, denies loss of vision, denies tunnel vision/blind spots Ears: deny: decreased hearing, ear discharge, earache, tinnitus Ears, nose, mouth and throat: Reports as per HPI Breasts: absent: as per HPI, gynecomastia Cardiovascular: Reports decreased exercise tolerance, Reports dyspnea on exertion Respiratory: Reports dyspnea Genitourinary: Reports as per HPI Musculoskeletal: Reports as per HPI Musculoskeletal: absent: ankle pain, ankle stiffness, ankle swelling Integumentary: Reports as per HPI Neurological: Reports weakness Endocrine: Reports as per HPI Hematologic/Lymphatic: Reports as per HPI Allergic/Immunologic: Reports as per HPI Past Medical History Past Medical History: Coronary Artery Disease (CAD), Cancer, Heart Failure, CVA/TIA, Diabetes Mellitus, Eye Disorder, Hypertension, Myocardial Infarction (AK), Renal Disease, Sleep Apnea/CPAP/BIPAP, Thyroid Disorder Additional Past Medical History / Comment(s): IDDM type II, neuropathy bilateral lower extremity/feet, bilateral eye diabetic retinopathy/poor vision/multiple injections, ESRD with hemodialysis T//TUE, anemia, "mini strokes" x2, AVANI with CPap use, occasional low back pain/disc disease, gout, hypothyroid Last Myocardial Infarction Date:: 10/20/20 History of Any Multi-Drug Resistant Organisms: None Reported Past Surgical History: Adenoidectomy, Bariatric Surgery, Cholecystectomy, Heart Catheterization, Heart Catheterization With Stent, Orthopedic Surgery, Tonsillectomy Additional Past Surgical History / Comment(s): 10/22/20 PCI with stents, lap banding, FX of right ankle repair pins / plate, fistual lt arm jul 2018, lt shoulder sx (d/t separation), colonoscopies, bilateral cataract removals/lens implants. Past Anesthesia/Blood Transfusion Reactions: Motion Sickness Additional Past Anesthesia/Blood Transfusion Reaction / Comment(s): CLAUSTERPHOBIA Date of Last Stent Placement:: 10/22/20 Past Psychological History: Anxiety Smoking Status: Former smoker - Past Family History Mother History Unknown: Yes Family Medical History: Coronary Artery Disease (CAD), Diabetes Mellitus, Myocardial Infarction (AK) Additional Family Medical History / Comment(s): Mother at age 58 from multiple sclerosis Father Family Medical History: CVA/TIA, Myocardial Infarction (AK) Additional Family Medical History / Comment(s): Father had history of AK and CVA followed by a second AK and CVA and at age 65. Brother(s) Additional Family Medical History / Comment(s): . Medications and Allergies Home Medications Medication Instructions Recorded Confirmed Type Atorvastatin [Lipitor] 40 mg PO HS 08/07/14 12/03/20 History Levothyroxine Sodium 100 mcg PO HS 07/06/17 12/03/20 History Torsemide [Demadex] 40 mg PO DAILY 09/10/19 12/03/20 History Allopurinol [Zyloprim] 300 mg PO HS 10/20/20 12/03/20 History Carvedilol [Coreg] 6.25 mg PO HS 10/20/20 12/03/20 History Magnebind 300mg 1 tab PO BID 10/20/20 12/03/20 History Magnesium Hydroxide [Milk of 2,400 mg PO DAILY PRN 10/20/20 12/03/20 History Magnesia] Bryanna-Olimpia 1 tab PO DAILY 10/20/20 12/03/20 History lisinopriL [Zestril] 5 mg PO BID 10/20/20 12/03/20 History Aspirin 81 mg PO DAILY #90 chew 10/22/20 12/03/20 Rx Calcium Acetate [PhosLo] 1,334 mg PO TID-W/MEALS tab 10/23/20 12/03/20 Rx Nitroglycerin Sl Tabs [Nitrostat] 0.4 mg SUBLINGUAL Q5M PRN #25 tab 10/23/20 12/03/20 Rx Calcium Carbonate [Tums Ultra 2,354 mg PO AC-BID PRN 11/24/20 12/03/20 History Strength] Clopidogrel Bisulfate [Plavix] 75 mg PO DAILY 11/24/20 12/03/20 History HYDROcodone/APAP 10-325MG [[place] 1 tab PO QID PRN 11/24/20 12/03/20 History 10-325] Insulin Detemir [Levemir Flextouch] 60 units SQ HS 11/24/20 12/03/20 History Insulin Regular, Human [Novolin R 30 unit SQ AC-TID 11/24/20 12/03/20 History Flexpen] Lactulose [Cephulac] 30 gm PO DAILY PRN 11/24/20 12/03/20 History Allergies Allergy/AdvReac Type Severity Reaction Status Date / Time No Known Allergies Allergy Verified 12/03/20 12:26 Physical Exam Vitals: Vital Signs Temp Pulse Resp BP Pulse Ox 12/03/20 15:59 79 18 62/50 97 12/03/20 15:00 79 18 70/41 12/03/20 14:30 78 18 90/52 12/03/20 14:14 98.9 F 12/03/20 14:05 80 20 120/103 100 12/03/20 12:01 22 12/03/20 11:56 100.5 F H 101 H 18 100/73 98 Intake and Output 12/03/20 12/03/20 12/03/20 06:59 14:59 22:59 Other: Weight 158.304 kg Results - Laboratory Findings CBC and BMP: 12/03/20 12:08 12/03/20 15:24 PT/INR, D-dimer PT 12.4 sec (9.0-12.0) H 12/03/20 15:24 INR 1.2 (<1.2) H 12/03/20 15:24 Abnormal lab findings: Abnormal Labs 12/03/20 12/03/20 12/03/20 12:08 12:08 14:05 WBC 13.9 H RBC 2.71 L Hgb 8.5 L D Hct 26.6 L RDW 16.1 H Neutrophils # 11.9 H PT INR VBG HCO3 Sodium 125 L Potassium 7.5 H* Chloride 85 L BUN 56 H Creatinine 6.30 H Glucose 584 H* POC Glucose (mg/dL) Plasma Lactic Acid Oscar 5.4 H* Calcium 8.2 L Phosphorus Magnesium 3.4 H AST 1897 H ALT 1615 H Alkaline Phosphatase 214 H 12/03/20 12/03/20 12/03/20 14:11 14:12 14:51 WBC RBC Hgb Hct RDW Neutrophils # PT INR VBG HCO3 Sodium Potassium Chloride BUN Creatinine Glucose POC Glucose (mg/dL) 590 H >600 H 537 H Plasma Lactic Acid Oscar Calcium Phosphorus Magnesium AST ALT Alkaline Phosphatase 12/03/20 12/03/2021 15:24 15:24 15:24 WBC RBC Hgb Hct RDW Neutrophils # PT INR VBG HCO3 22 L Sodium 132 L Potassium 6.3 H* Chloride 91 L BUN 55 H Creatinine 6.60 H Glucose 471 H POC Glucose (mg/dL) Plasma Lactic Acid Oscar Calcium Phosphorus 6.8 H Magnesium AST ALT Alkaline Phosphatase 12/03/20 12/03/20 15:24 15:48 WBC RBC Hgb Hct RDW Neutrophils # PT 12.4 H INR 1.2 H VBG HCO3 Sodium Potassium Chloride BUN Creatinine Glucose POC Glucose (mg/dL) 469 H Plasma Lactic Acid Oscar Calcium Phosphorus Magnesium AST ALT Alkaline Phosphatase - Diagnostic Findings Chest x-ray: image reviewed Assessment and Plan Plan: 1 acute hypotension, currently under investigation. Consider underlying hypovolemia/sepsis. 2 shortness of breath, no significant oxygen desaturation the patient is currently on 2 L by nasal cannula with a pulse ox of above 90% and the patient's chest x-ray still showing any acute abnormalities 3 end-stage renal disease on hemodialysis 3 times a week 4 coronary artery disease with recent inferior wall myocardial infarction requiring angioplasty of the RCA. Cardiac stress is that was done on 11/27/2020 showed subtle dyskinesia of the mid anterior wall. Otherwise ejection fraction was within normal and there was no evidence of any reversible ischemia, and echocardiogram that was done on 11/25/2020 showed a preserved LV function with an ejection fraction of 60-65%, maintained on a combination of aspirin and Plavix in addition to high-dose statins and Coreg 6.25 mg twice a day.. Mother the patient has a previous history of coronary stent insertion and he was taking aspirin and Plavix on outpatient basis, quit the antiplatelet agents because of cost 5 history of hypertension 6 hyperlipidemia 7 diabetes mellitus with significant hyperglycemia the time of admission with a component of mild anion gap metabolic acidosis and positive acetones which could indicate a mild component of DKA. The patient is currently on insulin drip. Noted the patient has been maintained on Levemir insulin 60 units daily at bedtime in addition to Novolin flex pen 30 units with meals. The patient also tells that the patient was not taking his Levemir insulin regular basis because of the cost of the medication. 8 hyperkalemia 9 lactic acidosis 10 abnormal LFTs, consider shock liver. Bilirubin is not elevated. Ocular phosphatase is also nonelevated 11 diabetic peripheral neuropathy and retinopathy 12 hypothyroidism 13 morbid obesity with a BMI of 48 14 history of prostate cancer 15 anemia of chronic disease, hemoglobin is stable at 8.5 16 gout 17 obstructive sleep apnea and the patient remains in a CPAP therapy Plan check blood cultures Villar catheter is in place and will check a UA We'll cover the patient with IV Rocephin as an empiric antibiotic coverage and give a dose of vancomycin still pending further cultures Monitor lactic acid level Continue insulin drip per protocol to treat underlying DKA and monitor the blood sugar for now. Accu-Cheks every hour Monitor electrolytes and anion gap The patient will be monitored in terms of his blood pressure. The patient was given IV fluids in the form of a bolus. He is running a borderline low blood pressure. No need for pressors at this point in time. Check ultrasound of the liver. The findings are more consistent with shock liver. The patient is postcholecystectomy. Avoid hepatotoxic agents.hold Lipitor for now Hold Coreg for now Continue aspirin and Plavix we'll keep the patient ICU for further monitoring. May need to insert an a line at a later stage and there is any issues with his blood pressure recordings. Nephrology consultation We'll follow
[2020-12-03 17:27] LABS: Glucose,Whole Blood 371 mg/dL (75-99)
[2020-12-03] MEDS ORDERED: VANCOMYCIN 2,250 MG in SODIUM CHLORIDE 0.9% 500 ML 500 ML IVPB SCH (17:45)
[2020-12-03 18:12] LABS: Glucose,Whole Blood 338 mg/dL (75-99)
[2020-12-03] MEDS ORDERED: SODIUM CHLORIDE 0.9% 500 ML 500 ML IV ONE ×2 (18:43→20:26)
[2020-12-03] MEDS ORDERED: VANCOMYCIN 2,250 MG in SODIUM CHLORIDE 0.9% 500 ML 500 ML IVPB ONE (18:45)
[2020-12-03 19:02] LABS: Glucose,Whole Blood 335 mg/dL (75-99)
[2020-12-03 19:45] LABS: Phosphorus 5.9 mg/dL (2.5-4.5); Potassium 5.5 mmol/L (3.5-5.1)
[2020-12-03] MEDS ORDERED: LIDOCAINE 1% INJ 10MG/ML (20 ML MDV) ONE (20:07)
[2020-12-03 20:15] LABS: Glucose,Whole Blood 291 mg/dL (75-99)
[2020-12-03] MEDS: NOREPINEPHRINE 4 MG in SODIUM CHLORIDE 0.9% 250 ML IV SCH (20:55)
[2020-12-03] MEDS: MAGNESIUM OXIDE 400 MG TAB PO SCH (21:08)
[2020-12-03 21:19] LABS: Glucose,Whole Blood 183 mg/dL (75-99)
[2020-12-03] MEDS: LEVOTHYROXINE 100 MCG TAB PO SCH (21:30)
[2020-12-03] MEDS: DEXTROSE 5%-0.9% NACL 1,000 ML IV SCH (21:34)
[2020-12-03 21:55] LABS: HCT 22.1 % (39.0-53.0); HGB 7.6 gm/dL (13.0-17.5); MCHC 34.1 g/dL (31.0-37.0); MCV 93.7 fL (80.0-100.0); Mean Platelet Volume 7.8; Platelet Count 204 k/uL (150-450); RBC 2.36 m/uL (4.30-5.90); RDW 15.8 % (11.5-15.5); WBC 12.7 k/uL (3.8-10.6)
[2020-12-03 22:07] LABS: Glucose,Whole Blood 171 mg/dL (75-99)
[2020-12-03 23:02] LABS: Glucose,Whole Blood 171 mg/dL (75-99)
[2020-12-04] MEDS: NOREPINEPHRINE 4 MG in SODIUM CHLORIDE 0.9% 250 ML IV SCH (00:07)
[2020-12-04 00:08] LABS: Glucose,Whole Blood 171 mg/dL (75-99)
[2020-12-04 00:39] LABS: Calcium 7.6 mg/dL (8.4-10.2); Potassium 5.6 mmol/L (3.5-5.1)
[2020-12-04] MEDS: INSULIN REGULAR 100 UNIT in SODIUM CHLORIDE 0.9% 100 ML IV SCH ×3 (01:19→19:17)
[2020-12-04 01:25] LABS: Glucose,Whole Blood 157 mg/dL (75-99)
[2020-12-04 02:25] LABS: Glucose,Whole Blood 145 mg/dL (75-99)
[2020-12-04 03:09] LABS: Glucose,Whole Blood 164 mg/dL (75-99)
[2020-12-04] MEDS: NOREPINEPHRINE 8 MG in SODIUM CHLORIDE 0.9% 250 ML IV SCH ×2 (03:12→07:29)
[2020-12-04 04:16] LABS: Glucose,Whole Blood 170 mg/dL (75-99)
[2020-12-04 04:33] LABS: HCT 24.5 % (39.0-53.0); HGB 8.2 gm/dL (13.0-17.5); MCH 31.6 pg (25.0-35.0); MCHC 33.5 g/dL (31.0-37.0); MCV 94.2 fL (80.0-100.0); Mean Platelet Volume 7.6; Platelet Count 330 k/uL (150-450); RDW 15.9 % (11.5-15.5); WBC 17.7 k/uL (3.8-10.6)
[2020-12-04 05:00] LABS: Albumin 3.4 g/dL (3.5-5.0); Calcium 7.8 mg/dL (8.4-10.2); Magnesium 3.5 mg/dL (1.6-2.3); Total Protein 6.4 g/dL (6.3-8.2)
[2020-12-04 05:01] LABS: Glucose,Whole Blood 177 mg/dL (75-99)
[2020-12-04] MEDS: HYDROcodone/APAP 10-325MG 1 EACH TAB PO PRN ×3 (06:06→21:43)
[2020-12-04 06:15] LABS: Glucose,Whole Blood 180 mg/dL (75-99)
[2020-12-04 06:59] LABS: Amorphous Sediment,Urine Rare /hpf; Appearance,Urine Turbid (Clear); Bacteria,Urine Occasional /hpf; Bilirubin,Urine Negative (Negative); Blood,Urine Large (Negative); Color,Urine Yellow; Glucose,Urine (UA) 2+ (Negative); Ketones,Urine Negative (Negative); Leukocyte Esterase,Urine Small (Negative); Mucus,Urine Rare /hpf; Nitrite,Urine Negative (Negative); Protein,Urine 3+ (Negative); RBC,Urine 123 /hpf (0-5); Specific Gravity,Urine 1.023 (1.001-1.035); Urobilinogen,Urine <2.0 mg/dL (<2.0); WBC,Urine 45 /hpf (0-5)
[2020-12-04 07:01] LABS: Amphetamine Screen,Urine Not Detected (NotDetected); Barbiturate Screen,Urine Not Detected (NotDetected); Benzodiazepines Screen,Urine Not Detected (NotDetected); Cocaine Screen,Urine Not Detected (NotDetected); Methadone Screen, Urine Not Detected (NotDetected); Opiate Screen,Urine Detected (NotDetected); Oxycodone Screen, Urine Not Detected (NotDetected); Phencyclidine Screen,Urine Not Detected (NotDetected); Tricyclic Antidepressant,Urine Not Detected (NotDetected); Urn Cannabinoid Scrn Not Detected (NotDetected)
[2020-12-04] MEDS ORDERED: VANCOMYCIN IV PER PHARMACY 1 EACH MISC MISCELLANE PRN (07:04)
--- NOTE | 2020-12-04 07:07 | P.PN ---
Subjective Progress Note Date: 12/04/20 60-year-old male patient presented to the ED with worsening shortness of breath. The patient has multiple medical problems and comorbidities. First of all, the patient has incisional disease and the patient on hemodialysis 3 times a week, TTS in addition to diabetes mellitus type 2 on insulin, hypertension, hyperlipidemia, obstructive sleep apnea maintained on CPAP, diabetes mellitus with diabetic neuropathy and retinopathy, hypothyroidism and history of prostate cancer. The patient also has gout. The patient is morbidly obese and carries a BMI of 48.7. Also, the patient was involved in acute inferior wall myocardial infarction requiring angioplasty of the right coronary artery he weeks back. The patient came into the hospital because of worsening shortness of breath. The patient was found also to be hypotensive during dialysis and the dialysis had to be done at a low rate. The patient also stated that he was feeling weak and he was in bed all the time and he was unable to get up and walk along with his shortness of breath. He denies having any chest pain. Denied having any palpitation. No reported fever or chills. No reported nausea vomiting or abdominal pain. In the ED, his blood pressure was noted to be low and he was given a bolus of 1 L of IV fluids. No pressors were initiated. The patient a white cell count of 13.9, hemoglobin of 8.5 with a platelet count of 26, coagulation profile is within normal limits, initial potassium level was 7.7 the patient is a 22 with anion gap of 18. Noted the patient's blood sugar was above 600. Lactic acid level was at 5.4. Phosphorus was at 3.4 with a calcium level of 8.2. AST was 1897 and ALT was 1615 with a normal alkaline phosphatase of 215 and a troponin was negative with a proBNP level of 2870. The patient was given insulin and the blood sugars started to improve. Currently the patient on insulin drip at 0.1 units per kilogram per hour and the most recent potassium level is down to 6.3. Sugar is at 471. Alcohol level was negative. Covid 19 testing was also negative. Chest x-ray shows cardiomegaly otherwise no other acute abnormalities of been noted. The EKG is consistent with normal sinus rhythm. Nonspecific ST segment abnormalities. On today's evaluation 12/04/2020 the patient is in the intensive care unit. He is in ICU for 2 reasons. First he is hypotensive and second he was indicated the time of admission. In terms of his DKA, the patient remains on an insulin drip is running at 4 units an hour. The blood sugar recently is down to 180. anion gap is at 14 with a serum bicarb of 21. As such, the anion gap has almost closed the patient is improving and the potassium level is down to 6. At the same time, the patient is receiving IV fluids in the form of D5 0.9 at the rate of 50 mL an hour. In terms of his blood pressure, the patient received boluses of normal saline, a total of 3.5 L since emergency department. He remains hypotensive. Currently norepinephrine infusion is running at a dose of 0.2 mcg/kg per minute. This is quite a large dose for him. Exact cause for the hypotension remains unclear. He is free of any chest pain. No signs of any infection. He was given a dose of Rocephin in the emergency addition to vancomycin. His white cell count today is at 17.7 and the patient is afebrile. The blood cultures of been negative. Villar cath is in place and the patient has not produced any urine output. Abdomen is soft. The patient has developed shock liver and there is increase in the AST and ALP. AST is up to 5262 and ALP is up to 4475. The lactic acid level peaked at 5.4 and is down to 1.9. Objective - Vital Signs Vital signs: Vital Signs Temp 99.3 F 12/04/20 03:00 Pulse 90 12/04/20 06:00 Resp 22 12/04/20 06:00 BP 74/54 12/03/20 20:00 Pulse Ox 94 L 12/04/20 06:00 Intake & Output 12/03/20 12/03/20 12/04/20 06:59 18:59 06:59 Intake Total 335.299 1091.011 Output Total 0 Balance 846.208 2434.011 Weight 158.304 kg 162.1 kg Intake: IV 900 1500 Dextrose 5%-0.9% NaCl 1, 500 000 ml @ 50 mls/hr IV . Q20H [facility] Rx#:[id number] Sodium Chloride 0.9% 1, 400 000 ml @ 50 mls/hr IV . Q20H [facility] Rx#:[id number] Sodium Chloride 0.9% 666 442 6461 ml 500 ml @ 999 mls/hr IV .Q31M [facility] Rx#:[id number] Intake, IV Titration 74.650 671.011 Amount Insulin Regular 100 unit 74.650 200.584 In Sodium Chloride 0.9% 100 ml @ 0.1 UNITS/KG/HR 15.989 mls/hr IV .Q6H20M [facility] Rx#:[id number] Norepinephrine 4 mg In 470.427 Sodium Chloride 0.9% 250 ml @ 0.05 MCG/KG/MIN 30. 157 mls/hr IV .Q8H26M [facility] Rx#:[id number] Output: Urine 0 Other: # Voids 0 ABP, PAP, CO, CI - Last Documented Arterial Blood Pressure 113/55 - Exam Morbidly obese, comfortable likely distress Head exam was generally normal. There was no scleral icterus or corneal arcus. Mucous membranes were moist. Neck was supple and without jugular venous distension, thyromegaly, or carotid bruits. Carotids were easily palpable bilaterally. There was no adenopathy. The patient is a Mallampati class IV Lungs were clear to auscultation and percussion, and with normal diaphragmatic excursion. No wheezes or rales were noted. Cardiac exam revealed the PMI to be normally situated and sized. The rhythm was regular and no extrasystoles were noted during several minutes of auscultation. The first and second heart sounds were normal and physiologic splitting of the second heart sound was noted. There were no murmurs, rubs, clicks, or gallops. Abdomen is obese and the organs cannot be accurately palpated. There is no direct tenderness or rebound tenderness or guarding. Examination of the extremities revealed easily palpable radial, femoral and pedal pulses. There was no cyanosis, clubbing or edema. The patient has a functional AV fistula in the left upper extremity. At the same time the patient has neuropathy and skin sloughing and his tip of the left index finger which he attributes to picking and burning while picking up hot objects as the patient has extensive neuropathy. No signs of any infection at this point in time. Pulses in the various lower extremities are quite diminished but they're palpable. Neurologically, the patient is awake and alert and the patient does not have any focal neurological deficit. Cranial nerves are essentially intact. Examination of the skin as mentioned above specially in the tip of the fingers. - Labs CBC & Chem 7: 12/04/20 04:10 12/04/20 04:10 Labs: Abnormal Lab Results - Last 24 Hours (Table) 12/03/20 12/03/20 12/03/20 Range/Units 12:08 12:08 14:05 WBC 13.9 H (3.8-10.6) k/uL RBC 2.71 L (4.30-5.90) m/uL Hgb 8.5 L D (13.0-17.5) gm/dL Hct 26.6 L (39.0-53.0) % RDW 16.1 H (11.5-15.5) % Neutrophils # 11.9 H (1.3-7.7) k/uL PT (9.0-12.0) sec INR (<1.2) VBG HCO3 (24-28) mmol/L Sodium 125 L (137-145) mmol/L Potassium 7.5 H* (3.5-5.1) mmol/L Chloride 85 L (98-107) mmol/L Carbon Dioxide (22-30) mmol/L BUN 56 H (9-20) mg/dL Creatinine 6.30 H (0.66-1.25) mg/dL Glucose 584 H* (74-99) mg/dL POC Glucose (mg/dL) (75-99) mg/dL Plasma Lactic Acid Oscar 5.4 H* (0.7-2.0) mmol/L Calcium 8.2 L (8.4-10.2) mg/dL Phosphorus (2.5-4.5) mg/dL Magnesium 3.4 H (1.6-2.3) mg/dL AST 1897 H (17-59) U/L ALT 1615 H (4-49) U/L Alkaline Phosphatase 214 H (38-126) U/L Albumin (3.5-5.0) g/dL 12/03/20 12/03/20 12/03/20 Range/Units 14:11 14:12 14:51 WBC (3.8-10.6) k/uL RBC (4.30-5.90) m/uL Hgb (13.0-17.5) gm/dL Hct (39.0-53.0) % RDW (11.5-15.5) % Neutrophils # (1.3-7.7) k/uL PT (9.0-12.0) sec INR (<1.2) VBG HCO3 (24-28) mmol/L Sodium (137-145) mmol/L Potassium (3.5-5.1) mmol/L Chloride (98-107) mmol/L Carbon Dioxide (22-30) mmol/L BUN (9-20) mg/dL Creatinine (0.66-1.25) mg/dL Glucose (74-99) mg/dL POC Glucose (mg/dL) 590 H >600 H 537 H (75-99) mg/dL Plasma Lactic Acid Oscar (0.7-2.0) mmol/L Calcium (8.4-10.2) mg/dL Phosphorus (2.5-4.5) mg/dL Magnesium (1.6-2.3) mg/dL AST (17-59) U/L ALT (4-49) U/L Alkaline Phosphatase (38-126) U/L Albumin (3.5-5.0) g/dL 12/03/20 12/03/20 12/03/20 Range/Units 15:24 15:24 15:24 WBC (3.8-10.6) k/uL RBC (4.30-5.90) m/uL Hgb (13.0-17.5) gm/dL Hct (39.0-53.0) % RDW (11.5-15.5) % Neutrophils # (1.3-7.7) k/uL PT (9.0-12.0) sec INR (<1.2) VBG HCO3 22 L (24-28) mmol/L Sodium 132 L (137-145) mmol/L Potassium 6.3 H* (3.5-5.1) mmol/L Chloride 91 L (98-107) mmol/L Carbon Dioxide (22-30) mmol/L BUN 55 H (9-20) mg/dL Creatinine 6.60 H (0.66-1.25) mg/dL Glucose 471 H (74-99) mg/dL POC Glucose (mg/dL) (75-99) mg/dL Plasma Lactic Acid Oscar (0.7-2.0) mmol/L Calcium (8.4-10.2) mg/dL Phosphorus 6.8 H (2.5-4.5) mg/dL Magnesium (1.6-2.3) mg/dL AST (17-59) U/L ALT (4-49) U/L Alkaline Phosphatase (38-126) U/L Albumin (3.5-5.0) g/dL 12/03/20 12/03/20 12/03/20 Range/Units 15:24 15:48 17:14 WBC (3.8-10.6) k/uL RBC (4.30-5.90) m/uL Hgb (13.0-17.5) gm/dL Hct (39.0-53.0) % RDW (11.5-15.5) % Neutrophils # (1.3-7.7) k/uL PT 12.4 H (9.0-12.0) sec INR 1.2 H (<1.2) VBG HCO3 (24-28) mmol/L Sodium (137-145) mmol/L Potassium (3.5-5.1) mmol/L Chloride (98-107) mmol/L Carbon Dioxide (22-30) mmol/L BUN (9-20) mg/dL Creatinine (0.66-1.25) mg/dL Glucose (74-99) mg/dL POC Glucose (mg/dL) 469 H 371 H (75-99) mg/dL Plasma Lactic Acid Oscar (0.7-2.0) mmol/L Calcium (8.4-10.2) mg/dL Phosphorus (2.5-4.5) mg/dL Magnesium (1.6-2.3) mg/dL AST (17-59) U/L ALT (4-49) U/L Alkaline Phosphatase (38-126) U/L Albumin (3.5-5.0) g/dL 12/03/20 12/03/20 12/03/20 Range/Units 18:10 18:47 19:00 WBC (3.8-10.6) k/uL RBC (4.30-5.90) m/uL Hgb (13.0-17.5) gm/dL Hct (39.0-53.0) % RDW (11.5-15.5) % Neutrophils # (1.3-7.7) k/uL PT (9.0-12.0) sec INR (<1.2) VBG HCO3 (24-28) mmol/L Sodium (137-145) mmol/L Potassium (3.5-5.1) mmol/L Chloride (98-107) mmol/L Carbon Dioxide (22-30) mmol/L BUN (9-20) mg/dL Creatinine (0.66-1.25) mg/dL Glucose (74-99) mg/dL POC Glucose (mg/dL) 338 H 335 H (75-99) mg/dL Plasma Lactic Acid Oscar 4.2 H* (0.7-2.0) mmol/L Calcium (8.4-10.2) mg/dL Phosphorus (2.5-4.5) mg/dL Magnesium (1.6-2.3) mg/dL AST (17-59) U/L ALT (4-49) U/L Alkaline Phosphatase (38-126) U/L Albumin (3.5-5.0) g/dL 12/03/20 12/03/20 12/03/20 Range/Units 19:01 20:03 21:16 WBC (3.8-10.6) k/uL RBC (4.30-5.90) m/uL Hgb (13.0-17.5) gm/dL Hct (39.0-53.0) % RDW (11.5-15.5) % Neutrophils # (1.3-7.7) k/uL PT (9.0-12.0) sec INR (<1.2) VBG HCO3 (24-28) mmol/L Sodium 135 L (137-145) mmol/L Potassium 5.5 H (3.5-5.1) mmol/L Chloride 96 L (98-107) mmol/L Carbon Dioxide (22-30) mmol/L BUN 53 H (9-20) mg/dL Creatinine 5.97 H (0.66-1.25) mg/dL Glucose 264 H (74-99) mg/dL POC Glucose (mg/dL) 291 H 183 H (75-99) mg/dL Plasma Lactic Acid Oscar (0.7-2.0) mmol/L Calcium (8.4-10.2) mg/dL Phosphorus 5.9 H (2.5-4.5) mg/dL Magnesium (1.6-2.3) mg/dL AST (17-59) U/L ALT (4-49) U/L Alkaline Phosphatase (38-126) U/L Albumin (3.5-5.0) g/dL 12/03/20 12/03/20 12/03/20 Range/Units 21:21 21:56 23:00 WBC 12.7 H (3.8-10.6) k/uL RBC 2.36 L (4.30-5.90) m/uL Hgb 7.6 L (13.0-17.5) gm/dL Hct 22.1 L (39.0-53.0) % RDW 15.8 H (11.5-15.5) % Neutrophils # (1.3-7.7) k/uL PT (9.0-12.0) sec INR (<1.2) VBG HCO3 (24-28) mmol/L Sodium (137-145) mmol/L Potassium (3.5-5.1) mmol/L Chloride (98-107) mmol/L Carbon Dioxide (22-30) mmol/L BUN (9-20) mg/dL Creatinine (0.66-1.25) mg/dL Glucose (74-99) mg/dL POC Glucose (mg/dL) 171 H 171 H (75-99) mg/dL Plasma Lactic Acid Oscar (0.7-2.0) mmol/L Calcium (8.4-10.2) mg/dL Phosphorus (2.5-4.5) mg/dL Magnesium (1.6-2.3) mg/dL AST (17-59) U/L ALT (4-49) U/L Alkaline Phosphatase (38-126) U/L Albumin (3.5-5.0) g/dL 12/04/20 12/04/20 12/04/20 Range/Units 00:03 00:05 01:13 WBC (3.8-10.6) k/uL RBC (4.30-5.90) m/uL Hgb (13.0-17.5) gm/dL Hct (39.0-53.0) % RDW (11.5-15.5) % Neutrophils # (1.3-7.7) k/uL PT (9.0-12.0) sec INR (<1.2) VBG HCO3 (24-28) mmol/L Sodium 133 L (137-145) mmol/L Potassium 5.6 H (3.5-5.1) mmol/L Chloride 95 L (98-107) mmol/L Carbon Dioxide (22-30) mmol/L BUN 60 H (9-20) mg/dL Creatinine 6.95 H (0.66-1.25) mg/dL Glucose 163 H (74-99) mg/dL POC Glucose (mg/dL) 171 H 157 H (75-99) mg/dL Plasma Lactic Acid Oscar (0.7-2.0) mmol/L Calcium 7.6 L (8.4-10.2) mg/dL Phosphorus (2.5-4.5) mg/dL Magnesium (1.6-2.3) mg/dL AST (17-59) U/L ALT (4-49) U/L Alkaline Phosphatase (38-126) U/L Albumin (3.5-5.0) g/dL 12/04/20 12/04/20 12/04/20 Range/Units 02:14 03:08 04:10 WBC 17.7 H (3.8-10.6) k/uL RBC 2.60 L (4.30-5.90) m/uL Hgb 8.2 L (13.0-17.5) gm/dL Hct 24.5 L (39.0-53.0) % RDW 15.9 H (11.5-15.5) % Neutrophils # (1.3-7.7) k/uL PT (9.0-12.0) sec INR (<1.2) VBG HCO3 (24-28) mmol/L Sodium (137-145) mmol/L Potassium (3.5-5.1) mmol/L Chloride (98-107) mmol/L Carbon Dioxide (22-30) mmol/L BUN (9-20) mg/dL Creatinine (0.66-1.25) mg/dL Glucose (74-99) mg/dL POC Glucose (mg/dL) 145 H 164 H (75-99) mg/dL Plasma Lactic Acid Oscar (0.7-2.0) mmol/L Calcium (8.4-10.2) mg/dL Phosphorus (2.5-4.5) mg/dL Magnesium (1.6-2.3) mg/dL AST (17-59) U/L ALT (4-49) U/L Alkaline Phosphatase (38-126) U/L Albumin (3.5-5.0) g/dL 12/04/20 12/04/20 12/04/20 Range/Units 04:10 04:14 04:59 WBC (3.8-10.6) k/uL RBC (4.30-5.90) m/uL Hgb (13.0-17.5) gm/dL Hct (39.0-53.0) % RDW (11.5-15.5) % Neutrophils # (1.3-7.7) k/uL PT (9.0-12.0) sec INR (<1.2) VBG HCO3 (24-28) mmol/L Sodium 131 L (137-145) mmol/L Potassium 6.0 H (3.5-5.1) mmol/L Chloride 96 L (98-107) mmol/L Carbon Dioxide 21 L (22-30) mmol/L BUN 64 H (9-20) mg/dL Creatinine 7.16 H* (0.66-1.25) mg/dL Glucose 163 H (74-99) mg/dL POC Glucose (mg/dL) 170 H 177 H (75-99) mg/dL Plasma Lactic Acid Oscar (0.7-2.0) mmol/L Calcium 7.8 L (8.4-10.2) mg/dL Phosphorus (2.5-4.5) mg/dL Magnesium 3.5 H (1.6-2.3) mg/dL AST 5262 H (17-59) U/L ALT 4475 H (4-49) U/L Alkaline Phosphatase 403 H (38-126) U/L Albumin 3.4 L (3.5-5.0) g/dL 12/04/20 Range/Units 06:04 WBC (3.8-10.6) k/uL RBC (4.30-5.90) m/uL Hgb (13.0-17.5) gm/dL Hct (39.0-53.0) % RDW (11.5-15.5) % Neutrophils # (1.3-7.7) k/uL PT (9.0-12.0) sec INR (<1.2) VBG HCO3 (24-28) mmol/L Sodium (137-145) mmol/L Potassium (3.5-5.1) mmol/L Chloride (98-107) mmol/L Carbon Dioxide (22-30) mmol/L BUN (9-20) mg/dL Creatinine (0.66-1.25) mg/dL Glucose (74-99) mg/dL POC Glucose (mg/dL) 180 H (75-99) mg/dL Plasma Lactic Acid Oscar (0.7-2.0) mmol/L Calcium (8.4-10.2) mg/dL Phosphorus (2.5-4.5) mg/dL Magnesium (1.6-2.3) mg/dL AST (17-59) U/L ALT (4-49) U/L Alkaline Phosphatase (38-126) U/L Albumin (3.5-5.0) g/dL Assessment and Plan Plan: 1 acute hypotension, currently under investigation. Consider underlying hypovolemia/sepsis. Consider cardiogenic shock. Exact cause remains not clear. The patient was resuscitated with IV fluids and the patient was given a total of 3.5 L. Currently he is on levo fed running at 0.2 mics and as per kilogram per minute. He will need a triple lumen catheter insertion. He has an art line catheter in place. He is on broad-spectrum antibiotics. We'll check serum cortisol. We'll check a stat echocardiogram. 2 shortness of breath, no significant oxygen desaturation the patient is currently on 2 L by nasal cannula with a pulse ox of above 90% and the patient's chest x-ray still showing any acute abnormalities 3 end-stage renal disease on hemodialysis 3 times a week 4 coronary artery disease with recent inferior wall myocardial infarction requiring angioplasty of the RCA. Cardiac stress is that was done on 11/27/2020 showed subtle dyskinesia of the mid anterior wall. Otherwise ejection fraction was within normal and there was no evidence of any reversible ischemia, and echocardiogram that was done on 11/25/2020 showed a preserved LV function with an ejection fraction of 60-65%, maintained on a combination of aspirin and Pl avix in addition to high-dose statins and Coreg 6.25 mg twice a day.. Mother the patient has a previous history of coronary stent insertion and he was taking aspirin and Plavix on outpatient basis, quit the antiplatelet agents because of cost 5 history of hypertension 6 hyperlipidemia 7 diabetes mellitus with significant hyperglycemia the time of admission with a component of mild anion gap metabolic acidosis and positive acetones which could indicate a mild component of DKA. The patient is currently on insulin drip. Noted the patient has been maintained on Levemir insulin 60 units daily at bedtime in addition to Novolin flex pen 30 units with meals. She is anion gap is down to 14. Potassium level is at 6. Currently is on D5 normal saline at the rate of 50 mL an hour. He is also on insulin drip at 4 units an hour. Serum bicarb is currently at 21. 8 hyperkalemia, potassium level improved and is down to 6.0 9 lactic acidosis, lactic acid level is improved and is down to 1.2 10 abnormal LFTs, consider shock liver. Bilirubin is not elevated. Ocular phosphatase is also nonelevated 11 diabetic peripheral neuropathy and retinopathy 12 hypothyroidism 13 morbid obesity with a BMI of 48 14 history of prostate cancer 15 anemia of chronic disease, hemoglobin is stable at 8.2 16 gout 17 obstructive sleep apnea and the patient remains in a CPAP therapy Plan check blood cultures Villar catheter is in place and will check a UA We'll cover the patient with IV Zosyn and stop the Rocephin as an empiric antibiotic coverage and keep the vancomycin for now pending cultures. Pharmacy to dose. Monitor lactic acid level Continue insulin drip per protocol to treat underlying DKA and monitor the blood sugar for now. The anion gap is closing. The serum bicarb is 25. We'll continue the insulin drip for now. Accu-Cheks every hour Monitor electrolytes and anion gap Continue the pressors and the continued levo fed for now. We'll insert a triple lumen catheter. We'll check a baseline serum cortisol. We'll obtain a stat echocardiogram. This will be needed to evaluate his LV function. Also check another set of troponin Check ultrasound of the liver. The findings are more consistent with shock liver. The patient is postcholecystectomy. Avoid hepatotoxic agents.hold Lipitor for now. The LFTs are on the rise and the patient has developed shock liver. check a coagulation profile also. Hold Coreg for now Continue aspirin and Plavix we'll keep the patient ICU for further monitoring. Nephrology consultation, possible diastolic daily if he is able to tolerate We'll follow her condition is critical we'll keep the patient ICU for now.
[2020-12-04 07:22] LABS: Glucose,Whole Blood 194 mg/dL (75-99)
--- NOTE | 2020-12-04 07:38 | XR ---
EXAMINATION TYPE: XR chest 1V DATE OF EXAM: 12/04/2020 HISTORY: Shortness of breath. COMPARISON: 12/03/2020 TECHNIQUE: Single view of the chest is submitted. FINDINGS: Demonstrated are scattered senescent parenchymal change. There is no evidence for focal infiltrate. The heart is stable. Hilar and mediastinal structures are within normal limits. Degenerative changes are seen of the dorsal spine. IMPRESSION: 1. Chronic changes without evidence for acute pulmonary disease.
[2020-12-04 07:55] LABS: INR 1.2 (<1.2); Partial Thromboplastin Time 23.7 sec (22.0-30.0); Prothrombin Time 12.5 sec (9.0-12.0)
[2020-12-04 08:02] LABS: Glucose,Whole Blood 185 mg/dL (75-99)
[2020-12-04] MEDS: MAGNESIUM OXIDE 400 MG TAB PO SCH (08:17)
[2020-12-04] MEDS: ASPIRIN 81 MG PO SCH (08:17)
[2020-12-04] MEDS ORDERED: CALCIUM GLUCONATE 1 GM in SODIUM CHLORIDE 0.9% 100 ML IVPB ONE (08:31)
[2020-12-04] MEDS ORDERED: SODIUM BICARB 8.4% 50 ML SYR (1 MEQ/ML) IV STA (08:31)
[2020-12-04] MEDS: PIPERACILLIN-TAZOBACTAM 3.375 GM in SODIUM CHLORIDE 0.9% 100 ML IVPB SCH ×2 (08:50→21:42)
[2020-12-04] MEDS ORDERED: CLOPIDOGREL 75 MG TAB PO SCH (09:00)
--- NOTE | 2020-12-04 09:07 | P.GSCN ---
<Bonnie Bello - Last Filed: 12/04/20 08:43> History of Present Illness Consult date: 12/04/20 Reason for Consult: Large pericardial effusion Requesting physician: Brenden Solis History of present illness: This is a 60-year-old morbidly obese gentleman who follows on an outpatient basis with Dr. Oshea. He has a previous medical history of coronary artery disease with myocardial infarction and recent stent placement, hypertension, heart failure, diabetes, CVA, end-stage renal disease on dialysis, obstructive sleep apnea with CPAP use, hypothyroidism, multiple surgeries, and previous tobacco dependence. She presented to [facility] emergency room with increasing shortness of breath, he was found to be hypotensive with lactic a cidosis and hyperglycemia, was felt to be septic he was admitted to the intensive care unit for continuing treatment and started on IV antibiotics and insulin drip. Overnight he became progressively more hypotensive requiring high-dose IV Levophed and multiple fluid boluses. Transthoracic echocardiogram was completed at the bedside demonstrating large pericardial effusion. Of note, the patient had an echocardiogram completed 2 weeks ago which demonstrated small pericardial effusion. Dr. Ahuja from cardiothoracic surgery was consulted for pericardial window. Review of Systems Review of systems was completed and was negative except as noted - Constitutional Reports fatigue, Reports lethargy, Reports malaise - Respiratory Reports dyspnea Past Medical History Past Medical History: Coronary Artery Disease (CAD), Cancer, Heart Failure, CVA/TIA, Diabetes Mellitus, Eye Disorder, Hypertension, Myocardial Infarction ([place]), Renal Disease, Sleep Apnea/CPAP/BIPAP, Thyroid Disorder Additional Past Medical History / Comment(s): IDDM type II, neuropathy bilateral lower extremity/feet, bilateral eye diabetic retinopathy/poor vision/multiple injections, ESRD with hemodialysis T//TUE, anemia, "mini strokes" x2, AVANI with CPap use, occasional low back pain/disc disease, gout, hypothyroid Last Myocardial Infarction Date:: 10/20/20 History of Any Multi-Drug Resistant Organisms: None Reported Past Surgical History: Adenoidectomy, Bariatric Surgery, Cholecystectomy, Heart Catheterization, Heart Catheterization With Stent, Orthopedic Surgery, Tonsillectomy Additional Past Surgical History / Comment(s): 10/22/20 PCI with stents, lap banding, FX of right ankle repair pins / plate, fistual lt arm jul 2018, lt shoulder sx (d/t separation), colonoscopies, bilateral cataract removals/lens implants. Past Anesthesia/Blood Transfusion Reactions: Motion Sickness Additional Past Anesthesia/Blood Transfusion Reaction / Comm: CLAUSTERPHOBIA Date of Last Stent Placement:: 10/22/20 Past Psychological History: Anxiety Smoking Status: Former smoker - Past Family History Mother History Unknown: Yes Family Medical History: Coronary Artery Disease (CAD), Diabetes Mellitus, Myocardial Infarction ([place]) Additional Family Medical History / Comment(s): Mother at age 58 from multiple sclerosis Father Family Medical History: CVA/TIA, Myocardial Infarction ([place]) Additional Family Medical History / Comment(s): Father had history of [place] and CVA followed by a second [place] and CVA and at age 65. Brother(s) Additional Family Medical History / Comment(s): . Medications and Allergies Home Medications Medication Instructions Recorded Confirmed Type Atorvastatin [Lipitor] 40 mg PO HS 08/07/14 12/03/20 History Levothyroxine Sodium 100 mcg PO HS 07/06/17 12/03/20 History Torsemide [Demadex] 40 mg PO DAILY 09/10/19 12/03/20 History Allopurinol [Zyloprim] 300 mg PO HS 10/20/20 12/03/20 History Carvedilol [Coreg] 6.25 mg PO HS 10/20/20 12/03/20 History Magnebind 300mg 1 tab PO BID 10/20/20 12/03/20 History Magnesium Hydroxide [Milk of 2,400 mg PO DAILY PRN 10/20/20 12/03/20 History Magnesia] Bryanna-Olimpia 1 tab PO DAILY 10/20/20 12/03/20 History lisinopriL [Zestril] 5 mg PO BID 10/20/20 12/03/20 History Aspirin 81 mg PO DAILY #90 chew 10/22/20 12/03/20 Rx Calcium Acetate [PhosLo] 1,334 mg PO TID-W/MEALS tab 10/23/20 12/03/20 Rx Nitroglycerin Sl Tabs [Nitrostat] 0.4 mg SUBLINGUAL Q5M PRN #25 tab 10/23/20 12/03/20 Rx Calcium Carbonate [Tums Ultra 2,354 mg PO AC-BID PRN 11/24/20 12/03/20 History Strength] Clopidogrel Bisulfate [Plavix] 75 mg PO DAILY 11/24/20 12/03/20 History HYDROcodone/APAP 10-325MG [[place] 1 tab PO QID PRN 11/24/20 12/03/20 History 10-325] Insulin Detemir [Levemir Flextouch] 60 units SQ HS 11/24/20 12/03/20 History Insulin Regular, Human [Novolin R 30 unit SQ AC-TID 11/24/20 12/03/20 History Flexpen] Lactulose [Cephulac] 30 gm PO DAILY PRN 11/24/20 12/03/20 History Allergies Allergy/AdvReac Type Severity Reaction Status Date / Time No Known Allergies Allergy Verified 12/03/20 12:26 Surgical - Exam Vital Signs Temp Pulse Resp BP Pulse Ox 100.5 F H 101 H 18 100/73 98 12/03/20 11:56 12/03/20 11:56 12/03/20 11:56 12/03/20 11:56 12/03/20 11:56 CONSTITUTIONAL: Awake but drowsy and falls to sleep easily, appears comfortable, cooperative, morbidly obese, no pain, no acute distress EYES: Pupils equal, round, reactive to light, normal ocular movement ENT: Moist mucous membranes without oral lesions present NECK: No masses, no bruits, trachea midline RESPIRATORY: Lungs sounds clear but diminished to auscultation bilaterally. Respirations even, nonlabored. Currently on 3 L nasal cannula with oxygen saturation in the mid 90s. Strong cough. No chest wall deformities. No clubbing or cyanosis present CARDIOVASCULAR: S1, S2 present, distant heart sounds noted. Regular rate and rhythm, sinus rhythm on telemetry. Palpable peripheral pulses bilaterally. No edema present. No calf pain or tenderness noted. GASTROINTESTINAL: Abdomen soft, nontender, nondistended, morbidly obese without masses or organomegaly noted. There is no rebound or guarding present. Active bowel sounds present 4 quadrants. GENITOURINARY: Deferred INTEGUMENTARY: Skin is warm and dry NEUROLOGIC: Cranial nerves II through XII intact, normal coordination, no obvious motor or sensory deficits, speech is normal MUSKULOSKELETAL: Able to move all extremities, strength equal bilaterally, normal posture PSYCHIATRIC: Alert and oriented to person place and time, appropriate affect, intact judgment and insight Results - Labs 12/04/20 04:10 12/04/20 04:10 Abnormal Lab Results - Last 24 Hours (Table) 12/03/20 12/03/20 12/03/20 Range/Units 12:08 12:08 14:05 WBC 13.9 H (3.8-10.6) k/uL RBC 2.71 L (4.30-5.90) m/uL Hgb 8.5 L D (13.0-17.5) gm/dL Hct 26.6 L (39.0-53.0) % RDW 16.1 H (11.5-15.5) % Neutrophils # 11.9 H (1.3-7.7) k/uL PT (9.0-12.0) sec INR (<1.2) VBG HCO3 (24-28) mmol/L Sodium 125 L (137-145) mmol/L Potassium 7.5 H* (3.5-5.1) mmol/L Chloride 85 L (98-107) mmol/L Carbon Dioxide (22-30) mmol/L BUN 56 H (9-20) mg/dL Creatinine 6.30 H (0.66-1.25) mg/dL Glucose 584 H* (74-99) mg/dL POC Glucose (mg/dL) (75-99) mg/dL Plasma Lactic Acid Oscar 5.4 H* (0.7-2.0) mmol/L Calcium 8.2 L (8.4-10.2) mg/dL Phosphorus (2.5-4.5) mg/dL Magnesium 3.4 H (1.6-2.3) mg/dL AST 1897 H (17-59) U/L ALT 1615 H (4-49) U/L Alkaline Phosphatase 214 H (38-126) U/L Albumin (3.5-5.0) g/dL Urine Protein (Negative) Urine Glucose (UA) (Negative) Urine Blood (Negative) Ur Leukocyte Esterase (Negative) Urine RBC (0-5) /hpf Urine WBC (0-5) /hpf Urine WBC Clumps (None) /hpf Amorphous Sediment (None) /hpf Urine Bacteria (None) /hpf Urine Mucus (None) /hpf Urine Opiates Screen (NotDetected) 12/03/20 12/03/20 12/03/20 Range/Units 14:11 14:12 14:51 WBC (3.8-10.6) k/uL RBC (4.30-5.90) m/uL Hgb (13.0-17.5) gm/dL Hct (39.0-53.0) % RDW (11.5-15.5) % Neutrophils # (1.3-7.7) k/uL PT (9.0-12.0) sec INR (<1.2) VBG HCO3 (24-28) mmol/L Sodium (137-145) mmol/L Potassium (3.5-5.1) mmol/L Chloride (98-107) mmol/L Carbon Dioxide (22-30) mmol/L BUN (9-20) mg/dL Creatinine (0.66-1.25) mg/dL Glucose (74-99) mg/dL POC Glucose (mg/dL) 590 H >600 H 537 H (75-99) mg/dL Plasma Lactic Acid Oscar (0.7-2.0) mmol/L Calcium (8.4-10.2) mg/dL Phosphorus (2.5-4.5) mg/dL Magnesium (1.6-2.3) mg/dL AST (17-59) U/L ALT (4-49) U/L Alkaline Phosphatase (38-126) U/L Albumin (3.5-5.0) g/dL Urine Protein (Negative) Urine Glucose (UA) (Negative) Urine Blood (Negative) Ur Leukocyte Esterase (Negative) Urine RBC (0-5) /hpf Urine WBC (0-5) /hpf Urine WBC Clumps (None) /hpf Amorphous Sediment (None) /hpf Urine Bacteria (None) /hpf Urine Mucus (None) /hpf Urine Opiates Screen (NotDetected) 12/03/20 12/03/20 12/03/20 Range/Units 15:24 15:24 15:24 WBC (3.8-10.6) k/uL RBC (4.30-5.90) m/uL Hgb (13.0-17.5) gm/dL Hct (39.0-53.0) % RDW (11.5-15.5) % Neutrophils # (1.3-7.7) k/uL PT (9.0-12.0) sec INR (<1.2) VBG HCO3 22 L (24-28) mmol/L Sodium 132 L (137-145) mmol/L Potassium 6.3 H* (3.5-5.1) mmol/L Chloride 91 L (98-107) mmol/L Carbon Dioxide (22-30) mmol/L BUN 55 H (9-20) mg/dL Creatinine 6.60 H (0.66-1.25) mg/dL Glucose 471 H (74-99) mg/dL POC Glucose (mg/dL) (75-99) mg/dL Plasma Lactic Acid Oscar (0.7-2.0) mmol/L Calcium (8.4-10.2) mg/dL Phosphorus 6.8 H (2.5-4.5) mg/dL Magnesium (1.6-2.3) mg/dL AST (17-59) U/L ALT (4-49) U/L Alkaline Phosphatase (38-126) U/L Albumin (3.5-5.0) g/dL Urine Protein (Negative) Urine Glucose (UA) (Negative) Urine Blood (Negative) Ur Leukocyte Esterase (Negative) Urine RBC (0-5) /hpf Urine WBC (0-5) /hpf Urine WBC Clumps (None) /hpf Amorphous Sediment (None) /hpf Urine Bacteria (None) /hpf Urine Mucus (None) /hpf Urine Opiates Screen (NotDetected) 12/03/20 12/03/20 12/03/20 Range/Units 15:24 15:48 17:14 WBC (3.8-10.6) k/uL RBC (4.30-5.90) m/uL Hgb (13.0-17.5) gm/dL Hct (39.0-53.0) % RDW (11.5-15.5) % Neutrophils # (1.3-7.7) k/uL PT 12.4 H (9.0-12.0) sec INR 1.2 H (<1.2) VBG HCO3 (24-28) mmol/L Sodium (137-145) mmol/L Potassium (3.5-5.1) mmol/L Chloride (98-107) mmol/L Carbon Dioxide (22-30) mmol/L BUN (9-20) mg/dL Creatinine (0.66-1.25) mg/dL Glucose (74-99) mg/dL POC Glucose (mg/dL) 469 H 371 H (75-99) mg/dL Plasma Lactic Acid Oscar (0.7-2.0) mmol/L Calcium (8.4-10.2) mg/dL Phosphorus (2.5-4.5) mg/dL Magnesium (1.6-2.3) mg/dL AST (17-59) U/L ALT (4-49) U/L Alkaline Phosphatase (38-126) U/L Albumin (3.5-5.0) g/dL Urine Protein (Negative) Urine Glucose (UA) (Negative) Urine Blood (Negative) Ur Leukocyte Esterase (Negative) Urine RBC (0-5) /hpf Urine WBC (0-5) /hpf Urine WBC Clumps (None) /hpf Amorphous Sediment (None) /hpf Urine Bacteria (None) /hpf Urine Mucus (None) /hpf Urine Opiates Screen (NotDetected) 12/03/20 12/03/20 12/03/20 Range/Units 18:10 18:47 19:00 WBC (3.8-10.6) k/uL RBC (4.30-5.90) m/uL Hgb (13.0-17.5) gm/dL Hct (39.0-53.0) % RDW (11.5-15.5) % Neutrophils # (1.3-7.7) k/uL PT (9.0-12.0) sec INR (<1.2) VBG HCO3 (24-28) mmol/L Sodium (137-145) mmol/L Potassium (3.5-5.1) mmol/L Chloride (98-107) mmol/L Carbon Dioxide (22-30) mmol/L BUN (9-20) mg/dL Creatinine (0.66-1.25) mg/dL Glucose (74-99) mg/dL POC Glucose (mg/dL) 338 H 335 H (75-99) mg/dL Plasma Lactic Acid Oscar 4.2 H* (0.7-2.0) mmol/L Calcium (8.4-10.2) mg/dL Phosphorus (2.5-4.5) mg/dL Magnesium (1.6-2.3) mg/dL AST (17-59) U/L ALT (4-49) U/L Alkaline Phosphatase (38-126) U/L Albumin (3.5-5.0) g/dL Urine Protein (Negative) Urine Glucose (UA) (Negative) Urine Blood (Negative) Ur Leukocyte Esterase (Negative) Urine RBC (0-5) /hpf Urine WBC (0-5) /hpf Urine WBC Clumps (None) /hpf Amorphous Sediment (None) /hpf Urine Bacteria (None) /hpf Urine Mucus (None) /hpf Urine Opiates Screen (NotDetected) 12/03/20 12/03/20 12/03/20 Range/Units 19:01 20:03 21:16 WBC (3.8-10.6) k/uL RBC (4.30-5.90) m/uL Hgb (13.0-17.5) gm/dL Hct (39.0-53.0) % RDW (11.5-15.5) % Neutrophils # (1.3-7.7) k/uL PT (9.0-12.0) sec INR (<1.2) VBG HCO3 (24-28) mmol/L Sodium 135 L (137-145) mmol/L Potassium 5.5 H (3.5-5.1) mmol/L Chloride 96 L (98-107) mmol/L Carbon Dioxide (22-30) mmol/L BUN 53 H (9-20) mg/dL Creatinine 5.97 H (0.66-1.25) mg/dL Glucose 264 H (74-99) mg/dL POC Glucose (mg/dL) 291 H 183 H (75-99) mg/dL Plasma Lactic Acid Oscar (0.7-2.0) mmol/L Calcium (8.4-10.2) mg/dL Phosphorus 5.9 H (2.5-4.5) mg/dL Magnesium (1.6-2.3) mg/dL AST (17-59) U/L ALT (4-49) U/L Alkaline Phosphatase (38-126) U/L Albumin (3.5-5.0) g/dL Urine Protein (Negative) Urine Glucose (UA) (Negative) Urine Blood (Negative) Ur Leukocyte Esterase (Negative) Urine RBC (0-5) /hpf Urine WBC (0-5) /hpf Urine WBC Clumps (None) /hpf Amorphous Sediment (None) /hpf Urine Bacteria (None) /hpf Urine Mucus (None) /hpf Urine Opiates Screen (NotDetected) 12/03/20 12/03/20 12/03/20 Range/Units 21:21 21:56 23:00 WBC 12.7 H (3.8-10.6) k/uL RBC 2.36 L (4.30-5.90) m/uL Hgb 7.6 L (13.0-17.5) gm/dL Hct 22.1 L (39.0-53.0) % RDW 15.8 H (11.5-15.5) % Neutrophils # (1.3-7.7) k/uL PT (9.0-12.0) sec INR (<1.2) VBG HCO3 (24-28) mmol/L Sodium (137-145) mmol/L Potassium (3.5-5.1) mmol/L Chloride (98-107) mmol/L Carbon Dioxide (22-30) mmol/L BUN (9-20) mg/dL Creatinine (0.66-1.25) mg/dL Glucose (74-99) mg/dL POC Glucose (mg/dL) 171 H 171 H (75-99) mg/dL Plasma Lactic Acid Oscar (0.7-2.0) mmol/L Calcium (8.4-10.2) mg/dL Phosphorus (2.5-4.5) mg/dL Magnesium (1.6-2.3) mg/dL AST (17-59) U/L ALT (4-49) U/L Alkaline Phosphatase (38-126) U/L Albumin (3.5-5.0) g/dL Urine Protein (Negative) Urine Glucose (UA) (Negative) Urine Blood (Negative) Ur Leukocyte Esterase (Negative) Urine RBC (0-5) /hpf Urine WBC (0-5) /hpf Urine WBC Clumps (None) /hpf Amorphous Sediment (None) /hpf Urine Bacteria (None) /hpf Urine Mucus (None) /hpf Urine Opiates Screen (NotDetected) 12/04/20 12/04/20 12/04/20 Range/Units 00:03 00:05 01:13 WBC (3.8-10.6) k/uL RBC (4.30-5.90) m/uL Hgb (13.0-17.5) gm/dL Hct (39.0-53.0) % RDW (11.5-15.5) % Neutrophils # (1.3-7.7) k/uL PT (9.0-12.0) sec INR (<1.2) VBG HCO3 (24-28) mmol/L Sodium 133 L (137-145) mmol/L Potassium 5.6 H (3.5-5.1) mmol/L Chloride 95 L (98-107) mmol/L Carbon Dioxide (22-30) mmol/L BUN 60 H (9-20) mg/dL Creatinine 6.95 H (0.66-1.25) mg/dL Glucose 163 H (74-99) mg/dL POC Glucose (mg/dL) 171 H 157 H (75-99) mg/dL Plasma Lactic Acid Oscar (0.7-2.0) mmol/L Calcium 7.6 L (8.4-10.2) mg/dL Phosphorus (2.5-4.5) mg/dL Magnesium (1.6-2.3) mg/dL AST (17-59) U/L ALT (4-49) U/L Alkaline Phosphatase (38-126) U/L Albumin (3.5-5.0) g/dL Urine Protein (Negative) Urine Glucose (UA) (Negative) Urine Blood (Negative) Ur Leukocyte Esterase (Negative) Urine RBC (0-5) /hpf Urine WBC (0-5) /hpf Urine WBC Clumps (None) /hpf Amorphous Sediment (None) /hpf Urine Bacteria (None) /hpf Urine Mucus (None) /hpf Urine Opiates Screen (NotDetected) 12/04/20 12/04/20 12/04/20 Range/Units 02:14 03:08 04:10 WBC 17.7 H (3.8-10.6) k/uL RBC 2.60 L (4.30-5.90) m/uL Hgb 8.2 L (13.0-17.5) gm/dL Hct 24.5 L (39.0-53.0) % RDW 15.9 H (11.5-15.5) % Neutrophils # (1.3-7.7) k/uL PT (9.0-12.0) sec INR (<1.2) VBG HCO3 (24-28) mmol/L Sodium (137-145) mmol/L Potassium (3.5-5.1) mmol/L Chloride (98-107) mmol/L Carbon Dioxide (22-30) mmol/L BUN (9-20) mg/dL Creatinine (0.66-1.25) mg/dL Glucose (74-99) mg/dL POC Glucose (mg/dL) 145 H 164 H (75-99) mg/dL Plasma Lactic Acid Oscar (0.7-2.0) mmol/L Calcium (8.4-10.2) mg/dL Phosphorus (2.5-4.5) mg/dL Magnesium (1.6-2.3) mg/dL AST (17-59) U/L ALT (4-49) U/L Alkaline Phosphatase (38-126) U/L Albumin (3.5-5.0) g/dL Urine Protein (Negative) Urine Glucose (UA) (Negative) Urine Blood (Negative) Ur Leukocyte Esterase (Negative) Urine RBC (0-5) /hpf Urine WBC (0-5) /hpf Urine WBC Clumps (None) /hpf Amorphous Sediment (None) /hpf Urine Bacteria (None) /hpf Urine Mucus (None) /hpf Urine Opiates Screen (NotDetected) 12/04/20 12/04/20 12/04/20 Range/Units 04:10 04:10 04:14 WBC (3.8-10.6) k/uL RBC (4.30-5.90) m/uL Hgb (13.0-17.5) gm/dL Hct (39.0-53.0) % RDW (11.5-15.5) % Neutrophils # (1.3-7.7) k/uL PT 12.5 H (9.0-12.0) sec INR 1.2 H (<1.2) VBG HCO3 (24-28) mmol/L Sodium 131 L (137-145) mmol/L Potassium 6.0 H (3.5-5.1) mmol/L Chloride 96 L (98-107) mmol/L Carbon Dioxide 21 L (22-30) mmol/L BUN 64 H (9-20) mg/dL Creatinine 7.16 H* (0.66-1.25) mg/dL Glucose 163 H (74-99) mg/dL POC Glucose (mg/dL) 170 H (75-99) mg/dL Plasma Lactic Acid Oscar (0.7-2.0) mmol/L Calcium 7.8 L (8.4-10.2) mg/dL Phosphorus (2.5-4.5) mg/dL Magnesium 3.5 H (1.6-2.3) mg/dL AST 5262 H (17-59) U/L ALT 4475 H (4-49) U/L Alkaline Phosphatase 403 H (38-126) U/L Albumin 3.4 L (3.5-5.0) g/dL Urine Protein (Negative) Urine Glucose (UA) (Negative) Urine Blood (Negative) Ur Leukocyte Esterase (Negative) Urine RBC (0-5) /hpf Urine WBC (0-5) /hpf Urine WBC Clumps (None) /hpf Amorphous Sediment (None) /hpf Urine Bacteria (None) /hpf Urine Mucus (None) /hpf Urine Opiates Screen (NotDetected) 12/04/20 12/04/20 12/04/20 Range/Units 04:59 06:04 06:20 WBC (3.8-10.6) k/uL RBC (4.30-5.90) m/uL Hgb (13.0-17.5) gm/dL Hct (39.0-53.0) % RDW (11.5-15.5) % Neutrophils # (1.3-7.7) k/uL PT (9.0-12.0) sec INR (<1.2) VBG HCO3 (24-28) mmol/L Sodium (137-145) mmol/L Potassium (3.5-5.1) mmol/L Chloride (98-107) mmol/L Carbon Dioxide (22-30) mmol/L BUN (9-20) mg/dL Creatinine (0.66-1.25) mg/dL Glucose (74-99) mg/dL POC Glucose (mg/dL) 177 H 180 H (75-99) mg/dL Plasma Lactic Acid Oscar (0.7-2.0) mmol/L Calcium (8.4-10.2) mg/dL Phosphorus (2.5-4.5) mg/dL Magnesium (1.6-2.3) mg/dL AST (17-59) U/L ALT (4-49) U/L Alkaline Phosphatase (38-126) U/L Albumin (3.5-5.0) g/dL Urine Protein 3+ H (Negative) Urine Glucose (UA) 2+ H (Negative) Urine Blood Large H (Negative) Ur Leukocyte Esterase Small H (Negative) Urine RBC 123 H (0-5) /hpf Urine WBC 45 H (0-5) /hpf Urine WBC Clumps Occasional H (None) /hpf Amorphous Sediment Rare H (None) /hpf Urine Bacteria Occasional H (None) /hpf Urine Mucus Rare H (None) /hpf Urine Opiates Screen (NotDetected) 12/04/20 12/04/20 12/04/20 Range/Units 06:20 07:11 08:00 WBC (3.8-10.6) k/uL RBC (4.30-5.90) m/uL Hgb (13.0-17.5) gm/dL Hct (39.0-53.0) % RDW (11.5-15.5) % Neutrophils # (1.3-7.7) k/uL PT (9.0-12.0) sec INR (<1.2) VBG HCO3 (24-28) mmol/L Sodium (137-145) mmol/L Potassium (3.5-5.1) mmol/L Chloride (98-107) mmol/L Carbon Dioxide (22-30) mmol/L BUN (9-20) mg/dL Creatinine (0.66-1.25) mg/dL Glucose (74-99) mg/dL POC Glucose (mg/dL) 194 H 185 H (75-99) mg/dL Plasma Lactic Acid Oscar (0.7-2.0) mmol/L Calcium (8.4-10.2) mg/dL Phosphorus (2.5-4.5) mg/dL Magnesium (1.6-2.3) mg/dL AST (17-59) U/L ALT (4-49) U/L Alkaline Phosphatase (38-126) U/L Albumin (3.5-5.0) g/dL Urine Protein (Negative) Urine Glucose (UA) (Negative) Urine Blood (Negative) Ur Leukocyte Esterase (Negative) Urine RBC (0-5) /hpf Urine WBC (0-5) /hpf Urine WBC Clumps (None) /hpf Amorphous Sediment (None) /hpf Urine Bacteria (None) /hpf Urine Mucus (None) /hpf Urine Opiates Screen Detected H (NotDetected) Diabetes panel 12/03/20 12/03/20 12/03/20 Range/Units 12:08 15:24 19:01 Sodium 125 L 132 L 135 L (137-145) mmol/L Potassium 7.5 H* 6.3 H* 5.5 H (3.5-5.1) mmol/L Chloride 85 L 91 L 96 L (98-107) mmol/L Carbon Dioxide 22 24 22 (22-30) mmol/L BUN 56 H 55 H 53 H (9-20) mg/dL Creatinine 6.30 H 6.60 H 5.97 H (0.66-1.25) mg/dL Glucose 584 H* 471 H 264 H (74-99) mg/dL Calcium 8.2 L (8.4-10.2) mg/dL AST 1897 H (17-59) U/L ALT 1615 H (4-49) U/L Alkaline Phosphatase 214 H (38-126) U/L Total Protein 7.0 (6.3-8.2) g/dL Albumin 3.8 (3.5-5.0) g/dL 12/04/20 12/04/20 Range/Units 00:03 04:10 Sodium 133 L 131 L (137-145) mmol/L Potassium 5.6 H 6.0 H (3.5-5.1) mmol/L Chloride 95 L 96 L (98-107) mmol/L Carbon Dioxide 25 21 L (22-30) mmol/L BUN 60 H 64 H (9-20) mg/dL Creatinine 6.95 H 7.16 H* (0.66-1.25) mg/dL Glucose 163 H 163 H (74-99) mg/dL Calcium 7.6 L 7.8 L (8.4-10.2) mg/dL AST 5262 H (17-59) U/L ALT 4475 H (4-49) U/L Alkaline Phosphatase 403 H (38-126) U/L Total Protein 6.4 (6.3-8.2) g/dL Albumin 3.4 L (3.5-5.0) g/dL Calcium panel 12/03/20 12/03/20 12/03/20 Range/Units 12:08 15:24 19:01 Calcium 8.2 L (8.4-10.2) mg/dL Phosphorus 6.8 H 5.9 H (2.5-4.5) mg/dL Albumin 3.8 (3.5-5.0) g/dL 12/04/20 12/04/20 Range/Units 00:03 04:10 Calcium 7.6 L 7.8 L (8.4-10.2) mg/dL Phosphorus (2.5-4.5) mg/dL Albumin 3.4 L (3.5-5.0) g/dL Pituitary panel 12/03/20 12/03/20 12/03/20 Range/Units 12:08 15:24 19:01 Sodium 125 L 132 L 135 L (137-145) mmol/L Potassium 7.5 H* 6.3 H* 5.5 H (3.5-5.1) mmol/L Chloride 85 L 91 L 96 L (98-107) mmol/L Carbon Dioxide 22 24 22 (22-30) mmol/L BUN 56 H 55 H 53 H (9-20) mg/dL Creatinine 6.30 H 6.60 H 5.97 H (0.66-1.25) mg/dL Glucose 584 H* 471 H 264 H (74-99) mg/dL Calcium 8.2 L (8.4-10.2) mg/dL 12/04/20 12/04/20 Range/Units 00:03 04:10 Sodium 133 L 131 L (137-145) mmol/L Potassium 5.6 H 6.0 H (3.5-5.1) mmol/L Chloride 95 L 96 L (98-107) mmol/L Carbon Dioxide 25 21 L (22-30) mmol/L BUN 60 H 64 H (9-20) mg/dL Creatinine 6.95 H 7.16 H* (0.66-1.25) mg/dL Glucose 163 H 163 H (74-99) mg/dL Calcium 7.6 L 7.8 L (8.4-10.2) mg/dL Adrenal panel 12/03/20 12/03/20 12/03/20 Range/Units 12:08 15:24 19:01 Sodium 125 L 132 L 135 L (137-145) mmol/L Potassium 7.5 H* 6.3 H* 5.5 H (3.5-5.1) mmol/L Chloride 85 L 91 L 96 L (98-107) mmol/L Carbon Dioxide 22 24 22 (22-30) mmol/L BUN 56 H 55 H 53 H (9-20) mg/dL Creatinine 6.30 H 6.60 H 5.97 H (0.66-1.25) mg/dL Glucose 584 H* 471 H 264 H (74-99) mg/dL Calcium 8.2 L (8.4-10.2) mg/dL Total Bilirubin 1.3 (0.2-1.3) mg/dL AST 1897 H (17-59) U/L ALT 1615 H (4-49) U/L Alkaline Phosphatase 214 H (38-126) U/L Total Protein 7.0 (6.3-8.2) g/dL Albumin 3.8 (3.5-5.0) g/dL 12/04/20 12/04/20 Range/Units 00:03 04:10 Sodium 133 L 131 L (137-145) mmol/L Potassium 5.6 H 6.0 H (3.5-5.1) mmol/L Chloride 95 L 96 L (98-107) mmol/L Carbon Dioxide 25 21 L (22-30) mmol/L BUN 60 H 64 H (9-20) mg/dL Creatinine 6.95 H 7.16 H* (0.66-1.25) mg/dL Glucose 163 H 163 H (74-99) mg/dL Calcium 7.6 L 7.8 L (8.4-10.2) mg/dL Total Bilirubin 1.0 (0.2-1.3) mg/dL AST 5262 H (17-59) U/L ALT 4475 H (4-49) U/L Alkaline Phosphatase 403 H (38-126) U/L Total Protein 6.4 (6.3-8.2) g/dL Albumin 3.4 L (3.5-5.0) g/dL - Imaging Additional studies: Echocardiogram films reviewed with Dr. Ahuja Assessment and Plan Assessment: 1. Large pericardial effusion, increased in size from previous echo approximately 2 weeks ago 2. Hypotension requiring increasing vasopressor use 3. Hyperglycemia on admission with mild anion gap metabolic acidosis 4. Lactic acidosis 5. Elevated liver function 6. Coronary artery disease with myocardial infarction and recent stent placement 7. History of hypertension, currently hypotensive 8. History of heart failure 9. Diabetes 10. History of CVA 11. End-stage renal disease on dialysis 12. Obstructive sleep apnea with CPAP use 13. Hypothyroidism Plan: The patient was seen and examined at the bedside with Dr. Ahuja. Chart/diagnostics were reviewed. Echocardiogram films were reviewed with Dr. Ahuja as well. Our recommendation is for urgent pericardial window, the usual preoperative course was discussed with the patient in detail, risks and benefits reviewed, all questions are answered, and consent was obtained. The patient is to remain nothing by mouth. He is already on antibiotics, type and screen is current. Medical management with the comorbidities per primary care, center sales and service associate management. More recommendations to follow. Thank you Dr. Solis for this consult Time with Patient: Greater than 30 <Marito Ahuja R - Last Filed: 12/04/20 10:37> Surgical - Exam Vital Signs Temp Pulse Resp BP Pulse Ox 100.5 F H 101 H 18 100/73 98 12/03/20 11:56 12/03/20 11:56 12/03/20 11:56 12/03/20 11:56 12/03/20 11:56 Results - Labs 12/04/20 04:10 12/04/20 04:10 Abnormal Lab Results - Last 24 Hours (Table) 12/03/20 12/03/20 12/03/20 Range/Units 12:08 12:08 14:05 WBC 13.9 H (3.8-10.6) k/uL RBC 2.71 L (4.30-5.90) m/uL Hgb 8.5 L D (13.0-17.5) gm/dL Hct 26.6 L (39.0-53.0) % RDW 16.1 H (11.5-15.5) % Neutrophils # 11.9 H (1.3-7.7) k/uL PT (9.0-12.0) sec INR (<1.2) VBG HCO3 (24-28) mmol/L Sodium 125 L (137-145) mmol/L Potassium 7.5 H* (3.5-5.1) mmol/L Chloride 85 L (98-107) mmol/L Carbon Dioxide (22-30) mmol/L BUN 56 H (9-20) mg/dL Creatinine 6.30 H (0.66-1.25) mg/dL Glucose 584 H* (74-99) mg/dL POC Glucose (mg/dL) (75-99) mg/dL Plasma Lactic Acid Oscar 5.4 H* (0.7-2.0) mmol/L Calcium 8.2 L (8.4-10.2) mg/dL Phosphorus (2.5-4.5) mg/dL Magnesium 3.4 H (1.6-2.3) mg/dL AST 1897 H (17-59) U/L ALT 1615 H (4-49) U/L Alkaline Phosphatase 214 H (38-126) U/L Albumin (3.5-5.0) g/dL Urine Protein (Negative) Urine Glucose (UA) (Negative) Urine Blood (Negative) Ur Leukocyte Esterase (Negative) Urine RBC (0-5) /hpf Urine WBC (0-5) /hpf Urine WBC Clumps (None) /hpf Amorphous Sediment (None) /hpf Urine Bacteria (None) /hpf Urine Mucus (None) /hpf Urine Opiates Screen (NotDetected) 12/03/20 12/03/20 12/03/20 Range/Units 14:11 14:12 14:51 WBC (3.8-10.6) k/uL RBC (4.30-5.90) m/uL Hgb (13.0-17.5) gm/dL Hct (39.0-53.0) % RDW (11.5-15.5) % Neutrophils # (1.3-7.7) k/uL PT (9.0-12.0) sec INR (<1.2) VBG HCO3 (24-28) mmol/L Sodium (137-145) mmol/L Potassium (3.5-5.1) mmol/L Chloride (98-107) mmol/L Carbon Dioxide (22-30) mmol/L BUN (9-20) mg/dL Creatinine (0.66-1.25) mg/dL Glucose (74-99) mg/dL POC Glucose (mg/dL) 590 H >600 H 537 H (75-99) mg/dL Plasma Lactic Acid Oscar (0.7-2.0) mmol/L Calcium (8.4-10.2) mg/dL Phosphorus (2.5-4.5) mg/dL Magnesium (1.6-2.3) mg/dL AST (17-59) U/L ALT (4-49) U/L Alkaline Phosphatase (38-126) U/L Albumin (3.5-5.0) g/dL Urine Protein (Negative) Urine Glucose (UA) (Negative) Urine Blood (Negative) Ur Leukocyte Esterase (Negative) Urine RBC (0-5) /hpf Urine WBC (0-5) /hpf Urine WBC Clumps (None) /hpf Amorphous Sediment (None) /hpf Urine Bacteria (None) /hpf Urine Mucus (None) /hpf Urine Opiates Screen (NotDetected) 12/03/20 12/03/20 12/03/20 Range/Units 15:24 15:24 15:24 WBC (3.8-10.6) k/uL RBC (4.30-5.90) m/uL Hgb (13.0-17.5) gm/dL Hct (39.0-53.0) % RDW (11.5-15.5) % Neutrophils # (1.3-7.7) k/uL PT (9.0-12.0) sec INR (<1.2) VBG HCO3 22 L (24-28) mmol/L Sodium 132 L (137-145) mmol/L Potassium 6.3 H* (3.5-5.1) mmol/L Chloride 91 L (98-107) mmol/L Carbon Dioxide (22-30) mmol/L BUN 55 H (9-20) mg/dL Creatinine 6.60 H (0.66-1.25) mg/dL Glucose 471 H (74-99) mg/dL POC Glucose (mg/dL) (75-99) mg/dL Plasma Lactic Acid Oscar (0.7-2.0) mmol/L Calcium (8.4-10.2) mg/dL Phosphorus 6.8 H (2.5-4.5) mg/dL Magnesium (1.6-2.3) mg/dL AST (17-59) U/L ALT (4-49) U/L Alkaline Phosphatase (38-126) U/L Albumin (3.5-5.0) g/dL Urine Protein (Negative) Urine Glucose (UA) (Negative) Urine Blood (Negative) Ur Leukocyte Esterase (Negative) Urine RBC (0-5) /hpf Urine WBC (0-5) /hpf Urine WBC Clumps (None) /hpf Amorphous Sediment (None) /hpf Urine Bacteria (None) /hpf Urine Mucus (None) /hpf Urine Opiates Screen (NotDetected) 12/03/20 12/03/20 12/03/20 Range/Units 15:24 15:48 17:14 WBC (3.8-10.6) k/uL RBC (4.30-5.90) m/uL Hgb (13.0-17.5) gm/dL Hct (39.0-53.0) % RDW (11.5-15.5) % Neutrophils # (1.3-7.7) k/uL PT 12.4 H (9.0-12.0) sec INR 1.2 H (<1.2) VBG HCO3 (24-28) mmol/L Sodium (137-145) mmol/L Potassium (3.5-5.1) mmol/L Chloride (98-107) mmol/L Carbon Dioxide (22-30) mmol/L BUN (9-20) mg/dL Creatinine (0.66-1.25) mg/dL Glucose (74-99) mg/dL POC Glucose (mg/dL) 469 H 371 H (75-99) mg/dL Plasma Lactic Acid Oscar (0.7-2.0) mmol/L Calcium (8.4-10.2) mg/dL Phosphorus (2.5-4.5) mg/dL Magnesium (1.6-2.3) mg/dL AST (17-59) U/L ALT (4-49) U/L Alkaline Phosphatase (38-126) U/L Albumin (3.5-5.0) g/dL Urine Protein (Negative) Urine Glucose (UA) (Negative) Urine Blood (Negative) Ur Leukocyte Esterase (Negative) Urine RBC (0-5) /hpf Urine WBC (0-5) /hpf Urine WBC Clumps (None) /hpf Amorphous Sediment (None) /hpf Urine Bacteria (None) /hpf Urine Mucus (None) /hpf Urine Opiates Screen (NotDetected) 12/03/20 12/03/20 12/03/20 Range/Units 18:10 18:47 19:00 WBC (3.8-10.6) k/uL RBC (4.30-5.90) m/uL Hgb (13.0-17.5) gm/dL Hct (39.0-53.0) % RDW (11.5-15.5) % Neutrophils # (1.3-7.7) k/uL PT (9.0-12.0) sec INR (<1.2) VBG HCO3 (24-28) mmol/L Sodium (137-145) mmol/L Potassium (3.5-5.1) mmol/L Chloride (98-107) mmol/L Carbon Dioxide (22-30) mmol/L BUN (9-20) mg/dL Creatinine (0.66-1.25) mg/dL Glucose (74-99) mg/dL POC Glucose (mg/dL) 338 H 335 H (75-99) mg/dL Plasma Lactic Acid Oscar 4.2 H* (0.7-2.0) mmol/L Calcium (8.4-10.2) mg/dL Phosphorus (2.5-4.5) mg/dL Magnesium (1.6-2.3) mg/dL AST (17-59) U/L ALT (4-49) U/L Alkaline Phosphatase (38-126) U/L Albumin (3.5-5.0) g/dL Urine Protein (Negative) Urine Glucose (UA) (Negative) Urine Blood (Negative) Ur Leukocyte Esterase (Negative) Urine RBC (0-5) /hpf Urine WBC (0-5) /hpf Urine WBC Clumps (None) /hpf Amorphous Sediment (None) /hpf Urine Bacteria (None) /hpf Urine Mucus (None) /hpf Urine Opiates Screen (NotDetected) 12/03/20 12/03/20 12/03/20 Range/Units 19:01 20:03 21:16 WBC (3.8-10.6) k/uL RBC (4.30-5.90) m/uL Hgb (13.0-17.5) gm/dL Hct (39.0-53.0) % RDW (11.5-15.5) % Neutrophils # (1.3-7.7) k/uL PT (9.0-12.0) sec INR (<1.2) VBG HCO3 (24-28) mmol/L Sodium 135 L (137-145) mmol/L Potassium 5.5 H (3.5-5.1) mmol/L Chloride 96 L (98-107) mmol/L Carbon Dioxide (22-30) mmol/L BUN 53 H (9-20) mg/dL Creatinine 5.97 H (0.66-1.25) mg/dL Glucose 264 H (74-99) mg/dL POC Glucose (mg/dL) 291 H 183 H (75-99) mg/dL Plasma Lactic Acid Oscar (0.7-2.0) mmol/L Calcium (8.4-10.2) mg/dL Phosphorus 5.9 H (2.5-4.5) mg/dL Magnesium (1.6-2.3) mg/dL AST (17-59) U/L ALT (4-49) U/L Alkaline Phosphatase (38-126) U/L Albumin (3.5-5.0) g/dL Urine Protein (Negative) Urine Glucose (UA) (Negative) Urine Blood (Negative) Ur Leukocyte Esterase (Negative) Urine RBC (0-5) /hpf Urine WBC (0-5) /hpf Urine WBC Clumps (None) /hpf Amorphous Sediment (None) /hpf Urine Bacteria (None) /hpf Urine Mucus (None) /hpf Urine Opiates Screen (NotDetected) 12/03/20 12/03/20 12/03/20 Range/Units 21:21 21:56 23:00 WBC 12.7 H (3.8-10.6) k/uL RBC 2.36 L (4.30-5.90) m/uL Hgb 7.6 L (13.0-17.5) gm/dL Hct 22.1 L (39.0-53.0) % RDW 15.8 H (11.5-15.5) % Neutrophils # (1.3-7.7) k/uL PT (9.0-12.0) sec INR (<1.2) VBG HCO3 (24-28) mmol/L Sodium (137-145) mmol/L Potassium (3.5-5.1) mmol/L Chloride (98-107) mmol/L Carbon Dioxide (22-30) mmol/L BUN (9-20) mg/dL Creatinine (0.66-1.25) mg/dL Glucose (74-99) mg/dL POC Glucose (mg/dL) 171 H 171 H (75-99) mg/dL Plasma Lactic Acid Oscar (0.7-2.0) mmol/L Calcium (8.4-10.2) mg/dL Phosphorus (2.5-4.5) mg/dL Magnesium (1.6-2.3) mg/dL AST (17-59) U/L ALT (4-49) U/L Alkaline Phosphatase (38-126) U/L Albumin (3.5-5.0) g/dL Urine Protein (Negative) Urine Glucose (UA) (Negative) Urine Blood (Negative) Ur Leukocyte Esterase (Negative) Urine RBC (0-5) /hpf Urine WBC (0-5) /hpf Urine WBC Clumps (None) /hpf Amorphous Sediment (None) /hpf Urine Bacteria (None) /hpf Urine Mucus (None) /hpf Urine Opiates Screen (NotDetected) 12/04/20 12/04/20 12/04/20 Range/Units 00:03 00:05 01:13 WBC (3.8-10.6) k/uL RBC (4.30-5.90) m/uL Hgb (13.0-17.5) gm/dL Hct (39.0-53.0) % RDW (11.5-15.5) % Neutrophils # (1.3-7.7) k/uL PT (9.0-12.0) sec INR (<1.2) VBG HCO3 (24-28) mmol/L Sodium 133 L (137-145) mmol/L Potassium 5.6 H (3.5-5.1) mmol/L Chloride 95 L (98-107) mmol/L Carbon Dioxide (22-30) mmol/L BUN 60 H (9-20) mg/dL Creatinine 6.95 H (0.66-1.25) mg/dL Glucose 163 H (74-99) mg/dL POC Glucose (mg/dL) 171 H 157 H (75-99) mg/dL Plasma Lactic Acid Oscar (0.7-2.0) mmol/L Calcium 7.6 L (8.4-10.2) mg/dL Phosphorus (2.5-4.5) mg/dL Magnesium (1.6-2.3) mg/dL AST (17-59) U/L ALT (4-49) U/L Alkaline Phosphatase (38-126) U/L Albumin (3.5-5.0) g/dL Urine Protein (Negative) Urine Glucose (UA) (Negative) Urine Blood (Negative) Ur Leukocyte Esterase (Negative) Urine RBC (0-5) /hpf Urine WBC (0-5) /hpf Urine WBC Clumps (None) /hpf Amorphous Sediment (None) /hpf Urine Bacteria (None) /hpf Urine Mucus (None) /hpf Urine Opiates Screen (NotDetected) 12/04/20 12/04/20 12/04/20 Range/Units 02:14 03:08 04:10 WBC 17.7 H (3.8-10.6) k/uL RBC 2.60 L (4.30-5.90) m/uL Hgb 8.2 L (13.0-17.5) gm/dL Hct 24.5 L (39.0-53.0) % RDW 15.9 H (11.5-15.5) % Neutrophils # (1.3-7.7) k/uL PT (9.0-12.0) sec INR (<1.2) VBG HCO3 (24-28) mmol/L Sodium (137-145) mmol/L Potassium (3.5-5.1) mmol/L Chloride (98-107) mmol/L Carbon Dioxide (22-30) mmol/L BUN (9-20) mg/dL Creatinine (0.66-1.25) mg/dL Glucose (74-99) mg/dL POC Glucose (mg/dL) 145 H 164 H (75-99) mg/dL Plasma Lactic Acid Oscar (0.7-2.0) mmol/L Calcium (8.4-10.2) mg/dL Phosphorus (2.5-4.5) mg/dL Magnesium (1.6-2.3) mg/dL AST (17-59) U/L ALT (4-49) U/L Alkaline Phosphatase (38-126) U/L Albumin (3.5-5.0) g/dL Urine Protein (Negative) Urine Glucose (UA) (Negative) Urine Blood (Negative) Ur Leukocyte Esterase (Negative) Urine RBC (0-5) /hpf Urine WBC (0-5) /hpf Urine WBC Clumps (None) /hpf Amorphous Sediment (None) /hpf Urine Bacteria (None) /hpf Urine Mucus (None) /hpf Urine Opiates Screen (NotDetected) 12/04/20 12/04/20 12/04/20 Range/Units 04:10 04:10 04:14 WBC (3.8-10.6) k/uL RBC (4.30-5.90) m/uL Hgb (13.0-17.5) gm/dL Hct (39.0-53.0) % RDW (11.5-15.5) % Neutrophils # (1.3-7.7) k/uL PT 12.5 H (9.0-12.0) sec INR 1.2 H (<1.2) VBG HCO3 (24-28) mmol/L Sodium 131 L (137-145) mmol/L Potassium 6.0 H (3.5-5.1) mmol/L Chloride 96 L (98-107) mmol/L Carbon Dioxide 21 L (22-30) mmol/L BUN 64 H (9-20) mg/dL Creatinine 7.16 H* (0.66-1.25) mg/dL Glucose 163 H (74-99) mg/dL POC Glucose (mg/dL) 170 H (75-99) mg/dL Plasma Lactic Acid Oscar (0.7-2.0) mmol/L Calcium 7.8 L (8.4-10.2) mg/dL Phosphorus (2.5-4.5) mg/dL Magnesium 3.5 H (1.6-2.3) mg/dL AST 5262 H (17-59) U/L ALT 4475 H (4-49) U/L Alkaline Phosphatase 403 H (38-126) U/L Albumin 3.4 L (3.5-5.0) g/dL Urine Protein (Negative) Urine Glucose (UA) (Negative) Urine Blood (Negative) Ur Leukocyte Esterase (Negative) Urine RBC (0-5) /hpf Urine WBC (0-5) /hpf Urine WBC Clumps (None) /hpf Amorphous Sediment (None) /hpf Urine Bacteria (None) /hpf Urine Mucus (None) /hpf Urine Opiates Screen (NotDetected) 12/04/20 12/04/20 12/04/20 Range/Units 04:59 06:04 06:20 WBC (3.8-10.6) k/uL RBC (4.30-5.90) m/uL Hgb (13.0-17.5) gm/dL Hct (39.0-53.0) % RDW (11.5-15.5) % Neutrophils # (1.3-7.7) k/uL PT (9.0-12.0) sec INR (<1.2) VBG HCO3 (24-28) mmol/L Sodium (137-145) mmol/L Potassium (3.5-5.1) mmol/L Chloride (98-107) mmol/L Carbon Dioxide (22-30) mmol/L BUN (9-20) mg/dL Creatinine (0.66-1.25) mg/dL Glucose (74-99) mg/dL POC Glucose (mg/dL) 177 H 180 H (75-99) mg/dL Plasma Lactic Acid Oscar (0.7-2.0) mmol/L Calcium (8.4-10.2) mg/dL Phosphorus (2.5-4.5) mg/dL Magnesium (1.6-2.3) mg/dL AST (17-59) U/L ALT (4-49) U/L Alkaline Phosphatase (38-126) U/L Albumin (3.5-5.0) g/dL Urine Protein 3+ H (Negative) Urine Glucose (UA) 2+ H (Negative) Urine Blood Large H (Negative) Ur Leukocyte Esterase Small H (Negative) Urine RBC 123 H (0-5) /hpf Urine WBC 45 H (0-5) /hpf Urine WBC Clumps Occasional H (None) /hpf Amorphous Sediment Rare H (None) /hpf Urine Bacteria Occasional H (None) /hpf Urine Mucus Rare H (None) /hpf Urine Opiates Screen (NotDetected) 12/04/20 12/04/20 12/04/20 Range/Units 06:20 07:11 08:00 WBC (3.8-10.6) k/uL RBC (4.30-5.90) m/uL Hgb (13.0-17.5) gm/dL Hct (39.0-53.0) % RDW (11.5-15.5) % Neutrophils # (1.3-7.7) k/uL PT (9.0-12.0) sec INR (<1.2) VBG HCO3 (24-28) mmol/L Sodium (137-145) mmol/L Potassium (3.5-5.1) mmol/L Chloride (98-107) mmol/L Carbon Dioxide (22-30) mmol/L BUN (9-20) mg/dL Creatinine (0.66-1.25) mg/dL Glucose (74-99) mg/dL POC Glucose (mg/dL) 194 H 185 H (75-99) mg/dL Plasma Lactic Acid Oscar (0.7-2.0) mmol/L Calcium (8.4-10.2) mg/dL Phosphorus (2.5-4.5) mg/dL Magnesium (1.6-2.3) mg/dL AST (17-59) U/L ALT (4-49) U/L Alkaline Phosphatase (38-126) U/L Albumin (3.5-5.0) g/dL Urine Protein (Negative) Urine Glucose (UA) (Negative) Urine Blood (Negative) Ur Leukocyte Esterase (Negative) Urine RBC (0-5) /hpf Urine WBC (0-5) /hpf Urine WBC Clumps (None) /hpf Amorphous Sediment (None) /hpf Urine Bacteria (None) /hpf Urine Mucus (None) /hpf Urine Opiates Screen Detected H (NotDetected) 12/04/20 Range/Units 09:09 WBC (3.8-10.6) k/uL RBC (4.30-5.90) m/uL Hgb (13.0-17.5) gm/dL Hct (39.0-53.0) % RDW (11.5-15.5) % Neutrophils # (1.3-7.7) k/uL PT (9.0-12.0) sec INR (<1.2) VBG HCO3 (24-28) mmol/L Sodium (137-145) mmol/L Potassium (3.5-5.1) mmol/L Chloride (98-107) mmol/L Carbon Dioxide (22-30) mmol/L BUN (9-20) mg/dL Creatinine (0.66-1.25) mg/dL Glucose (74-99) mg/dL POC Glucose (mg/dL) 188 H (75-99) mg/dL Plasma Lactic Acid Oscar (0.7-2.0) mmol/L Calcium (8.4-10.2) mg/dL Phosphorus (2.5-4.5) mg/dL Magnesium (1.6-2.3) mg/dL AST (17-59) U/L ALT (4-49) U/L Alkaline Phosphatase (38-126) U/L Albumin (3.5-5.0) g/dL Urine Protein (Negative) Urine Glucose (UA) (Negative) Urine Blood (Negative) Ur Leukocyte Esterase (Negative) Urine RBC (0-5) /hpf Urine WBC (0-5) /hpf Urine WBC Clumps (None) /hpf Amorphous Sediment (None) /hpf Urine Bacteria (None) /hpf Urine Mucus (None) /hpf Urine Opiates Screen (NotDetected) Diabetes panel 12/03/20 12/03/20 12/03/20 Range/Units 12:08 15:24 19:01 Sodium 125 L 132 L 135 L (137-145) mmol/L Potassium 7.5 H* 6.3 H* 5.5 H (3.5-5.1) mmol/L Chloride 85 L 91 L 96 L (98-107) mmol/L Carbon Dioxide 22 24 22 (22-30) mmol/L BUN 56 H 55 H 53 H (9-20) mg/dL Creatinine 6.30 H 6.60 H 5.97 H (0.66-1.25) mg/dL Glucose 584 H* 471 H 264 H (74-99) mg/dL Calcium 8.2 L (8.4-10.2) mg/dL AST 1897 H (17-59) U/L ALT 1615 H (4-49) U/L Alkaline Phosphatase 214 H (38-126) U/L Total Protein 7.0 (6.3-8.2) g/dL Albumin 3.8 (3.5-5.0) g/dL 12/04/20 12/04/20 Range/Units 00:03 04:10 Sodium 133 L 131 L (137-145) mmol/L Potassium 5.6 H 6.0 H (3.5-5.1) mmol/L Chloride 95 L 96 L (98-107) mmol/L Carbon Dioxide 25 21 L (22-30) mmol/L BUN 60 H 64 H (9-20) mg/dL Creatinine 6.95 H 7.16 H* (0.66-1.25) mg/dL Glucose 163 H 163 H (74-99) mg/dL Calcium 7.6 L 7.8 L (8.4-10.2) mg/dL AST 5262 H (17-59) U/L ALT 4475 H (4-49) U/L Alkaline Phosphatase 403 H (38-126) U/L Total Protein 6.4 (6.3-8.2) g/dL Albumin 3.4 L (3.5-5.0) g/dL Calcium panel 12/03/20 12/03/20 12/03/20 Range/Units 12:08 15:24 19:01 Calcium 8.2 L (8.4-10.2) mg/dL Phosphorus 6.8 H 5.9 H (2.5-4.5) mg/dL Albumin 3.8 (3.5-5.0) g/dL 12/04/20 12/04/20 Range/Units 00:03 04:10 Calcium 7.6 L 7.8 L (8.4-10.2) mg/dL Phosphorus (2.5-4.5) mg/dL Albumin 3.4 L (3.5-5.0) g/dL Pituitary panel 12/03/20 12/03/20 12/03/20 Range/Units 12:08 15:24 19:01 Sodium 125 L 132 L 135 L (137-145) mmol/L Potassium 7.5 H* 6.3 H* 5.5 H (3.5-5.1) mmol/L Chloride 85 L 91 L 96 L (98-107) mmol/L Carbon Dioxide 22 24 22 (22-30) mmol/L BUN 56 H 55 H 53 H (9-20) mg/dL Creatinine 6.30 H 6.60 H 5.97 H (0.66-1.25) mg/dL Glucose 584 H* 471 H 264 H (74-99) mg/dL Calcium 8.2 L (8.4-10.2) mg/dL 12/04/20 12/04/20 Range/Units 00:03 04:10 Sodium 133 L 131 L (137-145) mmol/L Potassium 5.6 H 6.0 H (3.5-5.1) mmol/L Chloride 95 L 96 L (98-107) mmol/L Carbon Dioxide 25 21 L (22-30) mmol/L BUN 60 H 64 H (9-20) mg/dL Creatinine 6.95 H 7.16 H* (0.66-1.25) mg/dL Glucose 163 H 163 H (74-99) mg/dL Calcium 7.6 L 7.8 L (8.4-10.2) mg/dL Adrenal panel 12/03/20 12/03/20 12/03/20 Range/Units 12:08 15:24 19:01 Sodium 125 L 132 L 135 L (137-145) mmol/L Potassium 7.5 H* 6.3 H* 5.5 H (3.5-5.1) mmol/L Chloride 85 L 91 L 96 L (98-107) mmol/L Carbon Dioxide 22 24 22 (22-30) mmol/L BUN 56 H 55 H 53 H (9-20) mg/dL Creatinine 6.30 H 6.60 H 5.97 H (0.66-1.25) mg/dL Glucose 584 H* 471 H 264 H (74-99) mg/dL Calcium 8.2 L (8.4-10.2) mg/dL Total Bilirubin 1.3 (0.2-1.3) mg/dL AST 1897 H (17-59) U/L ALT 1615 H (4-49) U/L Alkaline Phosphatase 214 H (38-126) U/L Total Protein 7.0 (6.3-8.2) g/dL Albumin 3.8 (3.5-5.0) g/dL 12/04/20 12/04/20 Range/Units 00:03 04:10 Sodium 133 L 131 L (137-145) mmol/L Potassium 5.6 H 6.0 H (3.5-5.1) mmol/L Chloride 95 L 96 L (98-107) mmol/L Carbon Dioxide 25 21 L (22-30) mmol/L BUN 60 H 64 H (9-20) mg/dL Creatinine 6.95 H 7.16 H* (0.66-1.25) mg/dL Glucose 163 H 163 H (74-99) mg/dL Calcium 7.6 L 7.8 L (8.4-10.2) mg/dL Total Bilirubin 1.0 (0.2-1.3) mg/dL AST 5262 H (17-59) U/L ALT 4475 H (4-49) U/L Alkaline Phosphatase 403 H (38-126) U/L Total Protein 6.4 (6.3-8.2) g/dL Albumin 3.4 L (3.5-5.0) g/dL Assessment and Plan Assessment: Patient seen and examined. Chart revviewed. Echo images current and from 11/25 reviewed. Patient presented with hypotension and inability to tolerate dialysis. Currently on maximal dose [place] fed with borderline blood pressure. Loaded with 3-1/2 L of volume but still has significant respiratory variation an arterial waveform tracing. Large pericardial effusion evident on current echo which was not present on echocardiography on the 16th of this month. Findings are clearly consistent with acute tamponade. Most likely this is secondary to his chronic renal status and new institution of anticoagulant medication status post stent procedure. Plan is to proceed with emergent pericardial window. This was discussed with the patient and informed consent obtained. Discussed with Dr. Solis of critical care.
[2020-12-04 09:11] LABS: Glucose,Whole Blood 188 mg/dL (75-99)
[2020-12-04] MEDS ORDERED: ETOMIDATE 2 MG/ML 10 ML VIAL ONE (09:39)
[2020-12-04] MEDS ORDERED: NOREPINEPHRINE 1 MG/ML 4 ML VIAL IV ONE (09:39)
[2020-12-04] MEDS ORDERED: KETAMINE 10 MG/ML 20 ML VIAL ONE (09:39)
[2020-12-04] MEDS ORDERED: ONDANSETRON 4 MG/2 ML VIAL ONE (09:39)
[2020-12-04] MEDS ORDERED: MIDAZOLAM 2 MG/2 ML VIAL ONE (09:39)
[2020-12-04] MEDS ORDERED: SODIUM CHLORIDE 0.9% 100 ML with ceFAZolin 3,000 MG IV ONE ×2 (09:53)
[2020-12-04] MEDS ORDERED: LIDOCAINE 1% INJ 10MG/ML (20 ML MDV) SQ ONE ×2 (10:06)
[2020-12-04] MEDS ORDERED: SODIUM CHLORIDE 0.9% 500 ML 500 ML IV ONE (10:10)
--- NOTE | 2020-12-04 10:31 | ECHOF ---
Referral Reason:shock MEASUREMENTS -------- HEIGHT: 180.3 cm WEIGHT: 161.9 kg BP: 113/55 RVIDd: 3.1 cm (< 3.3) IVSd: 1.5 cm (0.6 - 1.1) LVIDd: 4.5 cm (3.9 - 5.3) LVPWd: 1.5 cm (0.6 - 1.1) IVSs: 2.2 cm LVIDs: 3.0 cm LVPWs: 1.8 cm LA Diam: 3.0 cm (2.7 - 3.8) Ao Diam: 3.5 cm (2.0 - 3.7) MV EXCURSION: 22.126 mm (> 18.000) MV EF SLOPE: 97 mm/s (70 - 150) EPSS: 0.4 cm MV E Kenny: 0.68 m/s MV DecT: 351 ms MV A Kenny: 1.02 m/s MV E/A Ratio: 0.66 FINDINGS -------- Sinus rhythm. This was a technically difficult study with suboptimal views. The left ventricular size is normal. There is moderate concentric left ventricular hypertrophy. O verall left ventricular systolic function is normal with, an EF between 60 - 65 %. The right ventricle is normal in size. The left atrium is normal in size. The right atrium was not well visualized. Lumason used There is mild aortic valve sclerosis. Mild mitral annular calcification present. The tricuspid valve appears structurally normal. The pulmonic valve was not well visualized. The aortic root size is normal. The inferior vena cava is mildly dilated. There is a large, generalized pericardial effusion present. CONCLUSIONS -------- 1. The left ventricular size is normal. 2. There is moderate concentric left ventricular hypertrophy. 3. Overall left ventricular systolic function is normal with, an EF between 60 - 65 %. 4. Lumason used 5. There is mild aortic valve sclerosis. 6. Mild mitral annular calcification present. 7. The inferior vena cava is mildly dilated. 8. There is a large, generalized pericardial effusion present. No obvious temporal not at this time [employer]: Sharita Navarro [facility]
--- NOTE | 2020-12-04 10:46 | P.OP ---
Date of Procedure: 12/04/20 Preoperative Diagnosis: Pericardial And on Postoperative Diagnosis: Same Procedure(s) Performed: Pericardial window Anesthesia: MAC Surgeon: Marito Ahuja Estimated Blood Loss (ml): 5 Urine output (ml): 0 Pathology: none sent Condition: critical Disposition: ICU Indications for Procedure: 60-year-old male who underwent repeat recent stent procedure and was started on aspirin and Plavix. He has chronic renal failure with a small pericardial effusion on previous echocardiogram. Was unable to tolerate dialysis 2 days prior to admission and presented to the ER last night with shortness of breath and hypotension. Presented to the ICU and given volume resuscitation with over 3 L of fluid. He was started on Levaquin and this was titrated up overnight. This morning he was on 30 [place] fed. Radial arterial line demonstrates significant respiratory variation and echocardiography demonstrated presence of a large pericardial effusion. Clinicals picture is consistent with pericardial tamponade. Emergency pericardial drainage was indicated. Operative Findings: On opening the pericardium thick bloody fluid which was nonclotting was immediately evidenced under pressure and gushed out into the wound. Total of a liter of bloody pericardial fluid was drained. Hemodynamics immediately improved upon releasing the abdomen. Description of Procedure: The patient was brought to the operating room, placed supine on the operating table. The head was raised 30. IV sedation was given. Subxiphoid region was sterilely prepped and draped. One percent lidocaine was used to anesthetize the skin and subcutaneous tissues down to the fascia. Incision was made in the subxiphoid region and carried down to the midline fascia. The midline fascia was incised. Dissection was carried upward around the left side of the xiphoid process. Gentle finger dissection was then continued up underneath the sternum to the pericardium. The anterior portion of the diaphragm was grasped with a [place] clamp and the pericardium was incised with the [place] scissors. Was immediate nausea thick bloody fluid which was collected in the suction. Once this had calmed down the pericardial incision was opened further and a 32-La[place] right angle chest tube was placed into the pericardium and brought out through separate stab incision and secured with an 0 Ethibond suture. It was connected to a Pleur-evac. Patient's hemodynamics immediately improved upon draining the pericardium and the lead was fed was shut off with stable pressure. Patient was conversant at the end of the procedure. Midline fascia was closed with 0 Ethibond, the subcutaneous tissues with 2 layers of 2-0 Vicryl and the skin with a 3-0 Vicryl subcuticular stitch. Skin glue and dry sterile dressings were applied and the patient was transferred back to the ICU.
[2020-12-04 11:02] LABS: Glucose,Whole Blood 168 mg/dL (75-99)
[2020-12-04 11:26] LABS: Hepatitis A Antibody IgM Non-Reactive (Non-Reactive); Hepatitis B Core IgM Non-Reactive (Non-Reactive); Hepatitis B Surface Antigen Non-Reactive (Non-Reactive); Hepatitis C IgG Antibody Non-Reactive (Non-Reactive)
[2020-12-04 11:44] LABS: Glucose,Whole Blood 171 mg/dL (75-99)
[2020-12-04] MEDS ORDERED: fentaNYL (PF) 50 MCG/ML 2 ML AMP IVP ONE (12:56)
[2020-12-04] MEDS ORDERED: VANCOMYCIN 2,250 MG in SODIUM CHLORIDE 0.9% 500 ML 500 ML IVPB ONE (13:00)
[2020-12-04 13:05] LABS: Glucose,Whole Blood 292 mg/dL (75-99)
--- NOTE | 2020-12-04 13:41 | US ---
EXAMINATION TYPE: US liver DATE OF EXAM: 12/04/2020 COMPARISON: NONE CLINICAL HISTORY: elevated LFTs. Elevated LFTS exam limited due to body habitus. EXAM MEASUREMENTS: Liver Length: 23.7 cm Gallbladder Wall: Surgically absent cm CBD: .5 cm Right Kidney: 12.9 x 6.6 x 6.1 cm Pancreas: Obscured by bowel gas Liver: Increased attenuation hepatomegaly limited. Gallbladder: Surgically absent Evidence for sonographic Pina's sign: No CBD: wnl Right Kidney: Limited visualized due to bowel gas. IMPRESSION: Fatty liver with underlying hepatomegaly.
[2020-12-04 13:47] LABS: Glucose,Whole Blood 204 mg/dL (75-99)
--- NOTE | 2020-12-04 14:52 | P.CRDCN ---
History of Present Illness Consult date: 12/04/20 History of present illness: HISTORY OF PRESENT ILLNESS: This is a 60-year-old male with a past medical history significant for chronic kidney disease on hemodialysis, hypertension, hyperlipidemia, TIA, and coronary artery disease with recent PCI to the RCA on 10/21/2020. Patient follows in the office with Dr. Liz. We have been asked to see the patient in consultation for pericardial effusion. Patient originally presented to the hospital with a chief complaint of shortness of breath. Patient was initially hypotensive upon arrival. He was admitted to the intensive care unit. He required multiple fluid boluses and high-dose vasopressor support. Patient had an echocardiogram completed this morning revealing large pericardial effusion. Patient is status post pericardial window by Dr. Ahuja this morning with removal of 1 L of bloody pericardial fluid. Patient examined postoperatively at the bedside in the intensive care unit. Patient states his breathing is significantly improved. He denies chest pain or pressure. He remains off vasopressor support. EKG reveals sinus mechanism. Heart rate 98. Chest xray cardiomegaly. Lungs are clear. Pulmonary vasculature is normal. Laboratory data: WBC 17.7. Hemoglobin 8.2. Platelet count 330. Sodium 131. Potassium 6.0. BUN 64. Creatinine 7.16. AST 5262. ALT 4475. Troponin negative 2. Current home cardiac medications include lisinopril 5 mg twice a day, Demadex 40 mg daily, Plavix 35 mg daily, Coreg 6.25 mg daily, Lipitor 40mg daily, aspirin 81 mg daily Most recent echocardiogram obtained today reveals large pericardial effusion. Previous echocardiogram performed on 11/26/2019 revealed small pericardial effusion. Cardiac catheterization history: 10/21/2020 with PCI to the RCA Patient underwent Lexiscan stress test on 11/27/2020 which was negative for rev ersible ischemia. REVIEW OF SYSTEMS: At the time of my exam: CONSTITUTIONAL: Denies fever or chills. HEENT: Denies blurred vision, vision changes, or eye pain. Denies hemoptysis CARDIOVASCULAR: Denies chest pain. Denies orthopnea. Denies PND. Denies palpitations RESPIRATORY: Denies shortness of breath. GASTROINTESTINAL: Denies abdominal pain. Denies nausea or vomiting. HEMATOLOGIC: Denies bleeding disorders. GENITOURINARY: Denies any blood in urine. SKIN: Denies pruitis. Denies rash. PHYSICAL EXAM: VITAL SIGNS: Reviewed. GENERAL: Well-developed in no acute distress. HEENT: Head is normocephalic. Pupils are equal, round. Sclerae anicteric. Mucous membranes of the mouth are moist. Neck supple. No JVD or thyromegaly LUNGS: Respirations even and unlabored. Lungs diminished bilaterally. HEART: Regular rate and rhythm. S1 and S2 heard. Chest tube noted. Dressing clean dry and intact. ABDOMEN: Soft. Nondistended. Nontender. EXTREMITIES: Normal range of motion. No clubbing or cyanosis. Peripheral pulses intact. No lower extremity edema NEUROLOGIC: Awake and alert. Oriented x 3. ASSESSMENT: Large pericardial effusion, status post pericardial window Coronary artery disease with recent PCI to RCA, October 2020 End-stage renal disease on hemodialysis Transaminitis Hypotension requiring vasopressor support Hypertension Hyperlipidemia TIA Diabetes mellitus Hyperkalemia PLAN: Continue postoperative management per CTS Nephrology following for ESRD Hold statin due to transaminitis Continue aspirin. Resume plavix Hold antihypertensive medications Further recommendations pending patient course Nurse practitioner note has been reviewed by physician. Signing provider agrees with the documented findings, assessment, and plan of care. Past Medical History Past Medical History: Coronary Artery Disease (CAD), Cancer, Heart Failure, CVA/TIA, Diabetes Mellitus, Eye Disorder, Hypertension, Myocardial Infarction (MN), Renal Disease, Sleep Apnea/CPAP/BIPAP, Thyroid Disorder Additional Past Medical History / Comment(s): IDDM type II, neuropathy bilateral lower extremity/feet, bilateral eye diabetic retinopathy/poor vision/multiple injections, ESRD with hemodialysis T//TUE, anemia, "mini strokes" x2, AVANI with CPap use, occasional low back pain/disc disease, gout, hypothyroid Last Myocardial Infarction Date:: 10/20/20 History of Any Multi-Drug Resistant Organisms: None Reported Past Surgical History: Adenoidectomy, Bariatric Surgery, Cholecystectomy, Heart Catheterization, Heart Catheterization With Stent, Orthopedic Surgery, Tonsillectomy Additional Past Surgical History / Comment(s): 10/22/20 PCI with stents, lap banding, FX of right ankle repair pins / plate, fistual lt arm jul 2018, lt shoulder sx (d/t separation), colonoscopies, bilateral cataract removals/lens implants. Past Anesthesia/Blood Transfusion Reactions: Motion Sickness Additional Past Anesthesia/Blood Transfusion Reaction / Comment(s): CLAUSTERPHOBIA Date of Last Stent Placement:: 10/22/20 Past Psychological History: Anxiety Smoking Status: Former smoker - Past Family History Mother History Unknown: Yes Family Medical History: Coronary Artery Disease (CAD), Diabetes Mellitus, Myocardial Infarction (MN) Additional Family Medical History / Comment(s): Mother at age 58 from multiple sclerosis Father Family Medical History: CVA/TIA, Myocardial Infarction (MN) Additional Family Medical History / Comment(s): Father had history of MN and CVA followed by a second [place] and CVA and at age 65. Brother(s) Additional Family Medical History / Comment(s): . Medications and Allergies Home Medications Medication Instructions Recorded Confirmed Type Atorvastatin [Lipitor] 40 mg PO HS 08/07/14 12/03/20 History Levothyroxine Sodium 100 mcg PO HS 07/06/17 12/03/20 History Torsemide [Demadex] 40 mg PO DAILY 09/10/19 12/03/20 History Allopurinol [Zyloprim] 300 mg PO HS 10/20/20 12/03/20 History Carvedilol [Coreg] 6.25 mg PO HS 10/20/20 12/03/20 History Magnebind 300mg 1 tab PO BID 10/20/20 12/03/20 History Magnesium Hydroxide [Milk of 2,400 mg PO DAILY PRN 10/20/20 12/03/20 History Magnesia] Bryanna-Olimpia 1 tab PO DAILY 10/20/20 12/03/20 History lisinopriL [Zestril] 5 mg PO BID 10/20/20 12/03/20 History Aspirin 81 mg PO DAILY #90 chew 10/22/20 12/03/20 Rx Calcium Acetate [PhosLo] 1,334 mg PO TID-W/MEALS tab 10/23/20 12/03/20 Rx Nitroglycerin Sl Tabs [Nitrostat] 0.4 mg SUBLINGUAL Q5M PRN #25 tab 10/23/20 12/03/20 Rx Calcium Carbonate [Tums Ultra 2,354 mg PO AC-BID PRN 11/24/20 12/03/20 History Strength] Clopidogrel Bisulfate [Plavix] 75 mg PO DAILY 11/24/20 12/03/20 History HYDROcodone/APAP 10-325MG [Kittery 1 tab PO QID PRN 11/24/20 12/03/20 History 10-325] Insulin Detemir [Levemir Flextouch] 60 units SQ HS 11/24/20 12/03/20 History Insulin Regular, Human [Novolin R 30 unit SQ AC-TID 11/24/20 12/03/20 History Flexpen] Lactulose [Cephulac] 30 gm PO DAILY PRN 11/24/20 12/03/20 History Allergies Allergy/AdvReac Type Severity Reaction Status Date / Time No Known Allergies Allergy Verified 12/03/20 12:26 Physical Exam Vitals: Vital Signs Temp Pulse Resp BP Pulse Ox 12/04/20 11:00 89 20 104/72 94 L 12/04/20 08:00 98.4 F 86 20 95 12/04/20 07:30 94 20 12/04/20 07:00 88 26 H 96 12/04/20 06:30 88 22 92 L 12/04/20 06:00 90 22 94 L 12/04/20 05:30 100 20 94 L 12/04/20 05:00 87 23 93 L 12/04/20 04:30 86 21 93 L 12/04/20 04:00 87 24 93 L 12/04/20 03:30 87 21 95 12/04/20 03:00 99.3 F 87 18 94 L 12/04/20 02:30 82 16 95 12/04/20 02:00 84 23 97 12/04/20 01:30 22 96 12/04/20 01:00 83 18 96 12/04/20 00:30 82 17 98 12/04/20 00:00 97.9 F 82 15 100 12/03/20 23:30 80 15 99 12/03/20 23:28 16 12/03/20 23:00 78 16 99 12/03/20 22:30 79 14 100 12/03/20 22:00 73 19 97 12/03/20 21:30 79 15 100 12/03/20 21:00 73 16 100 12/03/20 20:30 74 13 99 12/03/20 20:00 98.6 F 73 22 74/54 100 12/03/20 19:30 74 26 H 92/53 100 12/03/20 19:00 70 19 72/51 100 12/03/20 18:30 71 22 79/65 100 12/03/20 18:29 98.7 F 76 19 105/80 99 12/03/20 18:00 76 19 105/80 99 12/03/20 17:30 77 23 100 12/03/20 17:16 98.7 F 14 111/83 98 12/03/20 16:54 85 22 92/50 96 12/03/20 16:44 79/43 12/03/20 15:59 79 18 62/50 97 12/03/20 15:00 79 18 70/41 12/03/20 14:30 78 18 90/52 12/03/20 14:14 98.9 F 12/03/20 14:05 80 20 120/103 100 Intake and Output 12/03/20 12/04/20 12/04/20 22:59 06:59 14:59 Intake Total 2264.002 881.659 966.000 Output Total 0 170 Balance 2264.002 881.659 796.000 Intake: IV 2000 400 450 Dextrose 5%-0.9% NaCl 1, 100 400 200 000 ml @ 50 mls/hr IV . Q20H [facility] Rx#:[id number] Sodium Chloride 0.9% 1, 400 000 ml @ 50 mls/hr IV . Q20H [facility] Rx#:[id number] Sodium Chloride 0.9% 500 1500 ml 500 ml @ 999 mls/hr IV .Q31M [facility] Rx#:[id number] Intake, IV Titration 264.002 481.659 516.000 Amount Insulin Regular 100 unit 174.234 101 In Sodium Chloride 0.9% 100 ml @ 0.1 UNITS/KG/HR 15.989 mls/hr IV .Q6H20M [facility] Rx#:[id number] Norepinephrine 4 mg In 89.768 380.659 Sodium Chloride 0.9% 250 ml @ 0.05 MCG/KG/MIN 30. 157 mls/hr IV .Q8H26M [facility] Rx#:[id number] Norepinephrine 8 mg In 516.000 Sodium Chloride 0.9% 250 ml @ 0.05 MCG/KG/MIN 15. 316 mls/hr IV .[id number] [facility] Rx#:[id number] Output: Chest Tube Drainage 160 Mediastinal 160 Urine 0 Estimated Blood Loss 10 Other: # Voids 0 Weight 158.304 kg 162.1 kg ABP, PAP, CO, CI - Last 8 Hours Arterial Blood Pressure 102/55 Arterial Blood Pressure 119/15 Arterial Blood Pressure 118/51 Arterial Blood Pressure 112/53 Arterial Blood Pressure 97/56 Arterial Blood Pressure 113/55 Arterial Blood Pressure 135/74 Arterial Blood Pressure 103/49 Arterial Blood Pressure 99/51 Results 12/04/20 04:10 12/04/20 04:10 Cardiac Enzymes 12/03/20 12/03/20 12/04/20 Range/Units 12:08 12:08 04:10 AST 1897 H 5262 H (17-59) U/L Troponin I <0.012 (0.000-0.034) ng/mL 12/04/20 Range/Units 04:10 AST (17-59) U/L Troponin I <0.012 (0.000-0.034) ng/mL Coagulation 12/03/20 12/03/20 12/04/20 Range/Units 12:08 15:24 04:10 PT 11.6 12.4 H 12.5 H (9.0-12.0) sec APTT 25.0 23.5 23.7 (22.0-30.0) sec CBC 12/03/20 12/03/20 12/04/20 Range/Units 12:08 21: 04:10 WBC 13.9 H 12.7 H 17.7 H (3.8-10.6) k/uL RBC 2.71 L 2.36 L 2.60 L (4.30-5.90) m/uL Hgb 8.5 L D 7.6 L 8.2 L (13.0-17.5) gm/dL Hct 26.6 L 22.1 L 24.5 L (39.0-53.0) % Plt Count 286 204 330 (150-450) k/uL Comprehensive Metabolic Panel 12/03/20 12/03/20 12/03/20 Range/Units 12:08 15:24 19:01 Sodium 125 L 132 L 135 L (137-145) mmol/L Potassium 7.5 H* 6.3 H* 5.5 H (3.5-5.1) mmol/L Chloride 85 L 91 L 96 L (98-107) mmol/L Carbon Dioxide 22 24 22 (22-30) mmol/L BUN 56 H 55 H 53 H (9-20) mg/dL Creatinine 6.30 H 6.60 H 5.97 H (0.66-1.25) mg/dL Glucose 584 H* 471 H 264 H (74-99) mg/dL Calcium 8.2 L (8.4-10.2) mg/dL AST 1897 H (17-59) U/L ALT 1615 H (4-49) U/L Alkaline Phosphatase 214 H (38-126) U/L Total Protein 7.0 (6.3-8.2) g/dL Albumin 3.8 (3.5-5.0) g/dL 12/04/20 12/04/20 Range/Units 00:03 04:10 Sodium 133 L 131 L (137-145) mmol/L Potassium 5.6 H 6.0 H (3.5-5.1) mmol/L Chloride 95 L 96 L (98-107) mmol/L Carbon Dioxide 25 21 L (22-30) mmol/L BUN 60 H 64 H (9-20) mg/dL Creatinine 6.95 H 7.16 H* (0.66-1.25) mg/dL Glucose 163 H 163 H (74-99) mg/dL Calcium 7.6 L 7.8 L (8.4-10.2) mg/dL AST 5262 H (17-59) U/L ALT 4475 H (4-49) U/L Alkaline Phosphatase 403 H (38-126) U/L Total Protein 6.4 (6.3-8.2) g/dL Albumin 3.4 L (3.5-5.0) g/dL Current Medications Generic Name Dose Route Start Last Admin Trade Name Freq PRN Reason Stop Dose Admin Acetaminophen 650 mg 12/03/20 14:46 Acetaminophen Tab 325 Mg Tab PO Q4HR PRN Fever and/or Mild Pain Hydrocodone Bitart/Acetaminophen 1 each 12/03/20 14:15 12/04/20 11:58 Hydrocodone/Apap 10-325mg 1 Each Tab PO 1 each Q6H PRN Administration Breakthrough Pain Aspirin 81 mg 12/04/20 09:00 12/04/20 08:17 Aspirin 81 Mg PO Not Given DAILY [facility] Insulin Human Regular 100 unit 101 mls @ 15.989 mls/hr 12/03/20 13:45 12/04/20 02:15 / Sodium Chloride IV Infused .Q6H20M [facility] Titration Protocol 0.1 UNITS/KG/HR Dextrose/Sodium Chloride 1,000 mls @ 50 mls/hr 12/03/20 21:30 12/03/20 21:34 Dextrose 5%-Ns Iv Soln IV 50 mls/hr .Q20H [facility] Administration Norepinephrine Bitartrate 8 mg 258 mls @ 15.316 mls/hr 12/04/20 03:00 12/04/20 11:24 / Sodium Chloride IV Infused .[id number] [facility] Titration Protocol 0.05 MCG/KG/MIN Piperacillin Sod/Tazobactam 100 mls @ 25 mls/hr 12/04/20 09:00 12/04/20 08:50 Sod 3.375 gm/ Sodium Chloride IVPB 25 mls/hr Q12HR [facility] Administration Vancomycin HCl 2,250 mg/ 500 mls @ 167 mls/hr 12/04/20 13:00 12/04/20 11:59 Sodium Chloride IVPB 12/04/20 15:59 167 mls/hr ONCE@1300 ONE Administration Levothyroxine Sodium 100 mcg 12/03/20 21:00 12/03/20 21:30 Levothyroxine 100 Mcg Tab PO 100 mcg HS [facility] Administration Magnesium Oxide 1 mg 12/03/20 21:00 12/04/20 08:17 Magnesium Oxide 400 Mg Tab PO Not Given BID [facility] Miscellaneous Information 1 each 12/03/20 13:42 Magnesium Replacement Protocol 1 Each Misc MISCELLANE DAILY PRN Per Protocol Protocol Miscellaneous Information 1 each 12/03/20 13:42 Potassium Replacement Protocol 1 Each Misc MISCELLANE DAILY PRN Per Protocol Miscellaneous Information 1 each 12/04/20 07:04 Vancomycin Iv Per Pharmacy 1 Each Misc MISCELLANE DIRECTED PRN Per Protocol Protocol Naloxone HCl 0.2 mg 12/03/20 14:46 Naloxone 0.4 Mg/Ml 1 Ml Vial IV Q2M PRN Opioid Reversal Intake and Output 12/03/20 12/04/20 12/04/20 22:59 06:59 14:59 Intake Total 2264.002 881.659 966.000 Output Total 0 170 Balance 2264.002 881.659 796.000 Intake: IV 1999 400 450 Dextrose 5%-0.9% NaCl 1, 100 400 200 000 ml @ 50 mls/hr IV . Q20H [facility] Rx#:[id number] Sodium Chloride 0.9% 1, 400 000 ml @ 50 mls/hr IV . Q20H [facility] Rx#:[id number] Sodium Chloride 0.9% 500 1500 ml 500 ml @ 999 mls/hr IV .Q31M [facility] Rx#:[id number] Intake, IV Titration 264.002 481.659 516.000 Amount Insulin Regular 100 unit 174.234 101 In Sodium Chloride 0.9% 100 ml @ 0.1 UNITS/KG/HR 15.989 mls/hr IV .Q6H20M [facility] Rx#:[id number] Norepinephrine 4 mg In 89.768 380.659 Sodium Chloride 0.9% 250 ml @ 0.05 MCG/KG/MIN 30. 157 mls/hr IV .Q8H26M [facility] Rx#:[id number] Norepinephrine 8 mg In 516.000 Sodium Chloride 0.9% 250 ml @ 0.05 MCG/KG/MIN 15. 316 mls/hr IV .[id number] [facility] Rx#:[id number] Output: Chest Tube Drainage 160 Mediastinal 160 Urine 0 Estimated Blood Loss 10 Other: # Voids 0 Weight 158.304 kg 162.1 kg 12/04/20 04:10 12/04/20 04:10
[2020-12-04 14:55] LABS: Glucose,Whole Blood 186 mg/dL (75-99)
[2020-12-04 15:00] LABS: Albumin 3.1 g/dL (3.5-5.0); Calcium 7.6 mg/dL (8.4-10.2); Potassium 5.7 mmol/L (3.5-5.1); Total Bilirubin 0.4 mg/dL (0.2-1.3); Total Protein 6.2 g/dL (6.3-8.2)
[2020-12-04 15:01] LABS: Appearance,BF Bloody
[2020-12-04 15:02] LABS: Nucleated Cells, Body Fluid 1000 /uL; RBC, Body Fluid 1820000 /uL
[2020-12-04 15:05] LABS: Mononuclear WBC,Body Fluid 45 %; Polynuclear WBC,Body Fluid 53 %; Total Cells Counted,Body Fluid 100
[2020-12-04 15:55] LABS: Glucose,Whole Blood 152 mg/dL (75-99)
--- NOTE | 2020-12-04 16:20 | CONS ---
CONSULTATION HISTORY OF PRESENT ILLNESS: Patient is a 60-year-old male who was admitted to the hospital with complaints of shortness of breath, not feeling well. He became hypotensive. He was also found to be in DKA and was started on insulin drip and was given fluid boluses. His potassium was elevated at 7.5 on initial admission which subsequently had improved to 6 early this morning. In the meantime, patient became severely hypotensive, requiring large amounts of Levophed. This morning echocardiogram showed evidence of large pericardial effusion, for which patient had pericardiocentesis done. He had about one liter of fluid removed, which was bloody in nature. Following the pericardiocentesis, hemodynamics stabilized, with normalization of blood pressure, and pressors were discontinued. There is no history of fevers or chills. 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 Patient has been very compliant with his dialysis, and he has been adequately dialyzed as outpatient. The fluid chemistry is still pending. PAST MEDICAL HISTORY: End-stage renal disease, CKD mineral bone disorder, coronary artery disease, history of CVA, TIA, morbid obesity, obstructive sleep apnea, gout, hypothyroidism, diabetes, diabetic retinopathy. PAST SURGICAL HISTORY: Cardiac catheterization, coronary stent placement, tonsillectomy, adenoidectomy, bariatric surgery, lap banding, colonoscopies, cataract surgery, shoulder surgery. SOCIAL HISTORY: Patient is a former smoker. No history of drug abuse or alcohol abuse. MEDICATIONS: Medications prior to admission include Lipitor, Synthroid, Demadex, zyloprim, Coreg, MagneBind, Bryanna Olimpia, Zestril, aspirin, PhosLo, Nitrostat, Tums, Plavix, insulin. ALLERGIES: NONE. REVIEW OF SYSTEMS: As per HPI. Other systems negative. PHYSICAL EXAMINATION: Patient is comfortable, awake, not in any acute distress. Blood pressure this morning was 105/73, heart rate 90 per minute. He is afebrile. EXAMINATION OF THE HEART: S1 and S2. EXAMINATION OF LUNGS: Decreased breath sounds at bases. ABDOMEN: Soft, morbidly obese. Examination of lower extremities shows chronic skin changes, trace edema. [employer]ES [employer]IV[employer] MA[employer]GER exam is grossly intact. LABS: Sodium 134, potassium 5.7, BUN 66, serum creatinine 7.68. ASSESSMENT: 1. End-stage renal disease, on hemodialysis on a Megan, , Tuesday schedule via left arm AV fistula. 2. Hyperkalemia associated with diabetic ketoacidosis as well as end-stage renal disease, currently improved with improving blood sugars and resolution of diabetic ketoacidosis. 3. Hypotension secondary to large pericardial effusion. 4. Pericardial effusion with hemodynamic compromise, status post pericardial window with about one liter of fluid removed. 5. Coronary artery disease with history of recent cardiac catheterization and stent placement. 6. Chronic kidney disease mineral bone disorder. 7. Morbid obesity. PLAN: Hemodialysis today. We will plan for about one liter of ultrafiltration as tolerated. Patient uses the long needles, which the patient's has brought in from the dialysis unit. We will avoid heparin with dialysis for the next week or so as outpatient. Thank you for this consultation. Will continue to follow the patient with you during his hospitalization. ERIC / SADIEN: [id number] /
--- NOTE | 2020-12-04 18:27 | P.HPIM ---
History of Present Illness H&P Date: 12/04/20 This is a 60-year-old male patient of Dr. Oshea and Dr. Liz with past medical history of end-stage renal disease on hemodialysis Tuesday, hypertension, hyperlipidemia, diabetes mellitus type 2 insulin requiring, obstructive sleep apnea, GERD, diabetic neuropathy, diabetic ret inopathy, hypothyroidism TIA, morbid obesity history of prostate cancer status post radiation therapy in 2017 in remission, anemia of chronic kidney disease, generalized anxiety disorder. Patient was recently hospitalized and discharged on October 23 at which time he was treated for acute inferior wall myocardial infarction status post angioplasty of the right coronary artery. He was last admitted on 11/25/2020 secondary to chest pain, workup at that time, included an echocardiogram which showed EF of 60-65%, moderate concentric LVH, mild MR, small pericardial effusion, with consultation to nephrology and cardiology. At that time a Lexiscan stress test was done, with normal EKG response to Lexiscan, abnormal resting EKG with diffuse ST elevation, without reciprocal changes, can be seen in the setting of pericarditis, He was compliant to his dialysis, comes in now to the emergency room secondary to significant shortness of breath, he was also noted to be hypotensive during dialysis and was febrile., he denies any nausea no vomiting no diarrhea, no lightheadedness no syncope. Patient denies any melena hematochezia, denies any increased edema. In the emergency room he was very sick looking, he was given 2 L of IV fluid as he was found to be in DKA, EKG shows ST segment elevation in leads 23 and aVF, also was given a bolus of insulin, with insulin drip, he was febrile with a temperature of 100.4, there is also significant elevation of new transaminitis, Rocephin was started, and admitted to ICU with consult to GI, hepatitis panel was sent, he also has some pyuria noted on urinalysis, urine drug screen is only positive for opiates, blood sugars are over 600 when he was seen in the emergency room. Other labs were of potassium of 7.5, 6.3, and 5.5, after fluid boluses and was noted to be hemolyzed, creatinine is at 6.3, AST ALT is only new, 1897, and ALT was 1615 He was admitted to ICU, for which an echocardiogram that was completed showing a very large pericardial effusion, Dr. Ahuja from cardiothoracic surgery was consulted, patient is now undergoing a pericardial window performed on 12/04/2020. Patient remains in ICU Review of Systems Constitutional: Reports as per HPI, Reports anorexia, Reports chills, Reports le thargy, Reports malaise, Reports poor appetite Ears, nose, mouth and throat: Reports as per HPI, Denies ant. neck pain, Denies bleeding gums, Denies dental pain, Denies dysphagia, Denies epistaxis, Denies headache, Denies hoarseness, Denies mouth pain, Denies nasal congestion, Denies nasal discharge, Denies neck fullness/pressure, Denies neck lump, Denies nose pain, Denies odynophagia, Denies post-nasal drip, Denies sinus pain, Denies sinus pressure, Denies swelling in mouth, Denies swelling in throat, Denies sore throat, Denies vertigo, Denies voice changes Cardiovascular: Reports as per HPI, Reports chest pain, Reports dyspnea on exertion Respiratory: Reports as per HPI, Reports cough, Reports dyspnea, Denies exce ssive sputum Gastrointestinal: Reports as per HPI Genitourinary: Reports as per HPI, Reports polyuria, Denies nocturia, Denies urinary frequency, Denies urinary retention Musculoskeletal: Reports as per HPI, Denies arm numbness/tingling, Denies atrophy, Denies fractures, Denies frequent falls, Denies gait dysfunction, Denie s hot joints, Denies leg numbness/tingling, Denies limitation of motion, Denies loss of height, Denies low back pain, Denies morning stiffness, Denies muscle cramps, Denies muscle weakness, Denies myalgias, Denies neck pain, Denies neck stiffness, Denies prior amputations, Denies redness of joints, Denies shooting arm pain, Denies shooting leg pain Integumentary: Reports as per HPI Neurological: Reports as per HPI, Reports balance difficulties, Reports gait dysfunction, Reports memory loss, Reports weakness Psychiatric: Reports as per HPI Endocrine: Reports as per HPI Hematologic/Lymphatic: Reports as per HPI Allergic/Immunologic: Reports as per HPI, Denies allergic rhinitis, Denies anaphylaxis, Denies angioedema, Denies gluten intolerance, Denies persistent infections, Denies seasonal allergies, Denies urticaria, Denies wheezing Past Medical History Past Medical History: Coronary Artery Disease (CAD), Cancer, Heart Failure, CVA/TIA, Diabetes Mellitus, Eye Disorder, Hypertension, Myocardial Infarction (NE), Renal Disease, Sleep Apnea/CPAP/BIPAP, Thyroid Disorder Additional Past Medical History / Comment(s): IDDM type II, neuropathy bilateral lower extremity/feet, bilateral eye diabetic retinopathy/poor vision/multiple injections, ESRD with hemodialysis T//TUE, anemia, "mini strokes" x2, AVANI with CPap use, occasional low back pain/disc disease, gout, hypothyroid Last Myocardial Infarction Date:: 10/20/20 History of Any Multi-Drug Resistant Organisms: None Reported Past Surgical History: Adenoidectomy, Bariatric Surgery, Cholecystectomy, Heart Catheterization, Heart Catheterization With Stent, Orthopedic Surgery, Tonsillectomy Additional Past Surgical History / Comment(s): 10/22/20 PCI with stents, lap banding, FX of right ankle repair pins / plate, fistual lt arm jul 2018, lt shoulder sx (d/t separation), colonoscopies, bilateral cataract removals/lens i mplants. Past Anesthesia/Blood Transfusion Reactions: Motion Sickness Additional Past Anesthesia/Blood Transfusion Reaction / Comment(s): CLAUSTERPHOB IA Date of Last Stent Placement:: 10/22/20 Past Psychological History: Anxiety Smoking Status: Former smoker - Past Family History Mother History Unknown: Yes Family Medical History: Coronary Artery Disease (CAD), Diabetes Mellitus, Myocardial Infarction (NE) Additional Family Medical History / Comment(s): Mother at age 58 from multiple sclerosis Father Family Medical History: CVA/TIA, Myocardial Infarction (NE) Additional Family Medical History / Comment(s): Father had history of NE and CVA followed by a second NE and CVA and at age 65. Brother(s) Additional Family Medical History / Comment(s): . Medications and Allergies Home Medications Medication Instructions Recorded Confirmed Type Atorvastatin [Lipitor] 40 mg PO HS 08/07/14 12/03/20 History Levothyroxine Sodium 100 mcg PO HS 07/06/17 12/03/20 History Torsemide [Demadex] 40 mg PO DAILY 09/10/19 12/03/20 History Allopurinol [Zyloprim] 300 mg PO HS 10/20/20 12/03/20 History Carvedilol [Coreg] 6.25 mg PO HS 10/20/20 12/03/20 History Magnebind 300mg 1 tab PO BID 10/20/20 12/03/20 History Magnesium Hydroxide [Milk of 2,400 mg PO DAILY PRN 10/20/20 12/03/20 History Magnesia] Bryanna-Olimpia 1 tab PO DAILY 10/20/20 12/03/20 History lisinopriL [Zestril] 5 mg PO BID 10/20/20 12/03/20 History Aspirin 81 mg PO DAILY #90 chew 10/22/20 12/03/20 Rx Calcium Acetate [PhosLo] 1,334 mg PO TID-W/MEALS tab 10/23/20 12/03/20 Rx Nitroglycerin Sl Tabs [Nitrostat] 0.4 mg SUBLINGUAL Q5M PRN #25 tab 10/23/20 12/03/20 Rx Calcium Carbonate [Tums Ultra 2,354 mg PO AC-BID PRN 11/24/20 12/03/20 History Strength] Clopidogrel Bisulfate [Plavix] 75 mg PO DAILY 11/24/20 12/03/20 History HYDROcodone/APAP 10-325MG [[place] 1 tab PO QID PRN 11/24/20 12/03/20 History 10-325] Insulin Detemir [Levemir Flextouch] 60 units SQ HS 11/24/20 12/03/20 History Insulin Regular, Human [Novolin R 30 unit SQ AC-TID 11/24/20 12/03/20 History Flexpen] Lactulose [Cephulac] 30 gm PO DAILY PRN 11/24/20 12/03/20 History Allergies Allergy/AdvReac Type Severity Reaction Status Date / Time No Known Allergies Allergy Verified 12/03/20 12:26 Physical Exam Vitals: Vital Signs Temp Pulse Resp BP Pulse Ox 12/04/20 08:00 98.4 F 86 20 95 12/04/20 07:30 94 20 12/04/20 07:00 88 26 H 96 12/04/20 06:30 88 22 92 L 12/04/20 06:00 90 22 94 L 12/04/20 05:30 100 20 94 L 12/04/20 05:00 87 23 93 L 12/04/20 04:30 86 21 93 L 12/04/20 04:00 87 24 93 L 12/04/20 03:30 87 21 95 12/04/20 03:00 99.3 F 87 18 94 L 12/04/20 02:30 82 16 95 12/04/20 02:00 84 23 97 12/04/20 01:30 22 96 12/04/20 01:00 83 18 96 12/04/20 00:30 82 17 98 12/04/20 00:00 97.9 F 82 15 100 12/03/20 23:30 80 15 99 12/03/20 23:28 16 12/03/20 23:00 78 16 99 12/03/20 22:30 79 14 100 12/03/20 22:00 73 19 97 12/03/20 21:30 79 15 100 12/03/20 21:00 73 16 100 12/03/20 20:30 74 13 99 12/03/20 20:00 98.6 F 73 22 74/54 100 12/03/20 19:30 74 26 H 92/53 100 12/03/20 19:00 70 19 72/51 100 12/03/20 18:30 71 22 79/65 100 12/03/20 18:29 98.7 F 76 19 105/80 99 12/03/20 18:00 76 19 105/80 99 12/03/20 17:30 77 23 100 12/03/20 17:16 98.7 F 14 111/83 98 12/03/20 16:54 85 22 92/50 96 12/03/20 16:44 79/43 12/03/20 15:59 79 18 62/50 97 12/03/20 15:00 79 18 70/41 12/03/20 14:30 78 18 90/52 12/03/20 14:14 98.9 F 12/03/20 14:05 80 20 120/103 100 12/03/20 12:01 22 12/03/20 11:56 100.5 F H 101 H 18 100/73 98 Intake and Output 12/03/20 12/04/20 12/04/20 22:59 06:59 14:59 Intake Total 2264.002 881.659 361.095 Output Total 0 Balance 2264.002 881.659 361.095 Intake: IV 2000 400 50 Dextrose 5%-0.9% NaCl 1, 100 400 50 000 ml @ 50 mls/hr IV . Q20H [facility] Rx#:[id number] Sodium Chloride 0.9% 1, 400 000 ml @ 50 mls/hr IV . Q20H [facility] Rx#:[id number] Sodium Chloride 0.9% 500 1500 ml 500 ml @ 999 mls/hr IV .Q31M [facility] Rx#:[id number] Intake, IV Titration 264.002 481.659 311.095 Amount Insulin Regular 100 unit 174.234 101 In Sodium Chloride 0.9% 100 ml @ 0.1 UNITS/KG/HR 15.989 mls/hr IV .Q6H20M [facility] Rx#:[id number] Norepinephrine 4 mg In 89.768 380.659 Sodium Chloride 0.9% 250 ml @ 0.05 MCG/KG/MIN 30. 157 mls/hr IV .Q8H26M [facility] Rx#:[id number] Norepinephrine 8 mg In 311.095 Sodium Chloride 0.9% 250 ml @ 0.05 MCG/KG/MIN 15. 316 mls/hr IV .[id number] [facility] Rx#:[id number] Output: Urine 0 Other: # Voids 0 Weight 158.304 kg 162.1 kg ABP, PAP, CO, CI - Last 8 Hours Arterial Blood Pressure 119/15 Arterial Blood Pressure 118/51 Arterial Blood Pressure 112/53 Arterial Blood Pressure 97/56 Arterial Blood Pressure 113/55 Arterial Blood Pressure 135/74 Arterial Blood Pressure 103/49 Arterial Blood Pressure 99/51 Arterial Blood Pressure 103/50 Arterial Blood Pressure 119/52 Arterial Blood Pressure 106/50 Arterial Blood Pressure 92/52 Results CBC & Chem 7: 12/04/20 04:10 12/04/20 04:10 Labs: Abnormal Lab Results - Last 24 Hours (Table) 12/03/20 12/03/20 12/03/20 Range/Units 12:08 12:08 14:05 WBC 13.9 H (3.8-10.6) k/uL RBC 2.71 L (4.30-5.90) m/uL Hgb 8.5 L D (13.0-17.5) gm/dL Hct 26.6 L (39.0-53.0) % RDW 16.1 H (11.5-15.5) % Neutrophils # 11.9 H (1.3-7.7) k/uL PT (9.0-12.0) sec INR (<1.2) VBG HCO3 (24-28) mmol/L Sodium 125 L (137-145) mmol/L Potassium 7.5 H* (3.5-5.1) mmol/L Chloride 85 L (98-107) mmol/L Carbon Dioxide (22-30) mmol/L BUN 56 H (9-20) mg/dL Creatinine 6.30 H (0.66-1.25) mg/dL Glucose 584 H* (74-99) mg/dL POC Glucose (mg/dL) (75-99) mg/dL Plasma Lactic Acid Oscar 5.4 H* (0.7-2.0) mmol/L Calcium 8.2 L (8.4-10.2) mg/dL Phosphorus (2.5-4.5) mg/dL Magnesium 3.4 H (1.6-2.3) mg/dL AST 1897 H (17-59) U/L ALT 1615 H (4-49) U/L Alkaline Phosphatase 214 H (38-126) U/L Albumin (3.5-5.0) g/dL Urine Protein (Negative) Urine Glucose (UA) (Negative) Urine Blood (Negative) Ur Leukocyte Esterase (Negative) Urine RBC (0-5) /hpf Urine WBC (0-5) /hpf Urine WBC Clumps (None) /hpf Amorphous Sediment (None) /hpf Urine Bacteria (None) /hpf Urine Mucus (None) /hpf Urine Opiates Screen (NotDetected) 12/03/20 12/03/20 12/03/20 Range/Units 14:11 14:12 14:51 WBC (3.8-10.6) k/uL RBC (4.30-5.90) m/uL Hgb (13.0-17.5) gm/dL Hct (39.0-53.0) % RDW (11.5-15.5) % Neutrophils # (1.3-7.7) k/uL PT (9.0-12.0) sec INR (<1.2) VBG HCO3 (24-28) mmol/L Sodium (137-145) mmol/L Potassium (3.5-5.1) mmol/L Chloride (98-107) mmol/L Carbon Dioxide (22-30) mmol/L BUN (9-20) mg/dL Creatinine (0.66-1.25) mg/dL Glucose (74-99) mg/dL POC Glucose (mg/dL) 590 H >600 H 537 H (75-99) mg/dL Plasma Lactic Acid Oscar (0.7-2.0) mmol/L Calcium (8.4-10.2) mg/dL Phosphorus (2.5-4.5) mg/dL Magnesium (1.6-2.3) mg/dL AST (17-59) U/L ALT (4-49) U/L Alkaline Phosphatase (38-126) U/L Albumin (3.5-5.0) g/dL Urine Protein (Negative) Urine Glucose (UA) (Negative) Urine Blood (Negative) Ur Leukocyte Esterase (Negative) Urine RBC (0-5) /hpf Urine WBC (0-5) /hpf Urine WBC Clumps (None) /hpf Amorphous Sediment (None) /hpf Urine Bacteria (None) /hpf Urine Mucus (None) /hpf Urine Opiates Screen (NotDetected) 12/03/20 12/03/20 12/03/20 Range/Units 15:24 15:24 15:24 WBC (3.8-10.6) k/uL RBC (4.30-5.90) m/uL Hgb (13.0-17.5) gm/dL Hct (39.0-53.0) % RDW (11.5-15.5) % Neutrophils # (1.3-7.7) k/uL PT (9.0-12.0) sec INR (<1.2) VBG HCO3 22 L (24-28) mmol/L Sodium 132 L (137-145) mmol/L Potassium 6.3 H* (3.5-5.1) mmol/L Chloride 91 L (98-107) mmol/L Carbon Dioxide (22-30) mmol/L BUN 55 H (9-20) mg/dL Creatinine 6.60 H (0.66-1.25) mg/dL Glucose 471 H (74-99) mg/dL POC Glucose (mg/dL) (75-99) mg/dL Plasma Lactic Acid Oscar (0.7-2.0) mmol/L Calcium (8.4-10.2) mg/dL Phosphorus 6.8 H (2.5-4.5) mg/dL Magnesium (1.6-2.3) mg/dL AST (17-59) U/L ALT (4-49) U/L Alkaline Phosphatase (38-126) U/L Albumin (3.5-5.0) g/dL Urine Protein (Negative) Urine Glucose (UA) (Negative) Urine Blood (Negative) Ur Leukocyte Esterase (Negative) Urine RBC (0-5) /hpf Urine WBC (0-5) /hpf Urine WBC Clumps (None) /hpf Amorphous Sediment (None) /hpf Urine Bacteria (None) /hpf Urine Mucus (None) /hpf Urine Opiates Screen (NotDetected) 12/03/20 12/03/20 12/03/20 Range/Units 15:24 15:48 17:14 WBC (3.8-10.6) k/uL RBC (4.30-5.90) m/uL Hgb (13.0-17.5) gm/dL Hct (39.0-53.0) % RDW (11.5-15.5) % Neutrophils # (1.3-7.7) k/uL PT 12.4 H (9.0-12.0) sec INR 1.2 H (<1.2) VBG HCO3 (24-28) mmol/L Sodium (137-145) mmol/L Potassium (3.5-5.1) mmol/L Chloride (98-107) mmol/L Carbon Dioxide (22-30) mmol/L BUN (9-20) mg/dL Creatinine (0.66-1.25) mg/dL Glucose (74-99) mg/dL POC Glucose (mg/dL) 469 H 371 H (75-99) mg/dL Plasma Lactic Acid Oscar (0.7-2.0) mmol/L Calcium (8.4-10.2) mg/dL Phosphorus (2.5-4.5) mg/dL Magnesium (1.6-2.3) mg/dL AST (17-59) U/L ALT (4-49) U/L Alkaline Phosphatase (38-126) U/L Albumin (3.5-5.0) g/dL Urine Protein (Negative) Urine Glucose (UA) (Negative) Urine Blood (Negative) Ur Leukocyte Esterase (Negative) Urine RBC (0-5) /hpf Urine WBC (0-5) /hpf Urine WBC Clumps (None) /hpf Amorphous Sediment (None) /hpf Urine Bacteria (None) /hpf Urine Mucus (None) /hpf Urine Opiates Screen (NotDetected) 12/03/20 12/03/20 12/03/20 Range/Units 18:10 18:47 19:00 WBC (3.8-10.6) k/uL RBC (4.30-5.90) m/uL Hgb (13.0-17.5) gm/dL Hct (39.0-53.0) % RDW (11.5-15.5) % Neutrophils # (1.3-7.7) k/uL PT (9.0-12.0) sec INR (<1.2) VBG HCO3 (24-28) mmol/L Sodium (137-145) mmol/L Potassium (3.5-5.1) mmol/L Chloride (98-107) mmol/L Carbon Dioxide (22-30) mmol/L BUN (9-20) mg/dL Creatinine (0.66-1.25) mg/dL Glucose (74-99) mg/dL POC Glucose (mg/dL) 338 H 335 H (75-99) mg/dL Plasma Lactic Acid Oscar 4.2 H* (0.7-2.0) mmol/L Calcium (8.4-10.2) mg/dL Phosphorus (2.5-4.5) mg/dL Magnesium (1.6-2.3) mg/dL AST (17-59) U/L ALT (4-49) U/L Alkaline Phosphatase (38-126) U/L Albumin (3.5-5.0) g/dL Urine Protein (Negative) Urine Glucose (UA) (Negative) Urine Blood (Negative) Ur Leukocyte Esterase (Negative) Urine RBC (0-5) /hpf Urine WBC (0-5) /hpf Urine WBC Clumps (None) /hpf Amorphous Sediment (None) /hpf Urine Bacteria (None) /hpf Urine Mucus (None) /hpf Urine Opiates Screen (NotDetected) 12/03/20 12/03/20 12/03/20 Range/Units 19:01 20:03 21:16 WBC (3.8-10.6) k/uL RBC (4.30-5.90) m/uL Hgb (13.0-17.5) gm/dL Hct (39.0-53.0) % RDW (11.5-15.5) % Neutrophils # (1.3-7.7) k/uL PT (9.0-12.0) sec INR (<1.2) VBG HCO3 (24-28) mmol/L Sodium 135 L (137-145) mmol/L Potassium 5.5 H (3.5-5.1) mmol/L Chloride 96 L (98-107) mmol/L Carbon Dioxide (22-30) mmol/L BUN 53 H (9-20) mg/dL Creatinine 5.97 H (0.66-1.25) mg/dL Glucose 264 H (74-99) mg/dL POC Glucose (mg/dL) 291 H 183 H (75-99) mg/dL Plasma Lactic Acid Oscar (0.7-2.0) mmol/L Calcium (8.4-10.2) mg/dL Phosphorus 5.9 H (2.5-4.5) mg/dL Magnesium (1.6-2.3) mg/dL AST (17-59) U/L ALT (4-49) U/L Alkaline Phosphatase (38-126) U/L Albumin (3.5-5.0) g/dL Urine Protein (Negative) Urine Glucose (UA) (Negative) Urine Blood (Negative) Ur Leukocyte Esterase (Negative) Urine RBC (0-5) /hpf Urine WBC (0-5) /hpf Urine WBC Clumps (None) /hpf Amorphous Sediment (None) /hpf Urine Bacteria (None) /hpf Urine Mucus (None) /hpf Urine Opiates Screen (NotDetected) 12/03/20 12/03/20 12/03/20 Range/Units 21:21 21:56 23:00 WBC 12.7 H (3.8-10.6) k/uL RBC 2.36 L (4.30-5.90) m/uL Hgb 7.6 L (13.0-17.5) gm/dL Hct 22.1 L (39.0-53.0) % RDW 15.8 H (11.5-15.5) % Neutrophils # (1.3-7.7) k/uL PT (9.0-12.0) sec INR (<1.2) VBG HCO3 (24-28) mmol/L Sodium (137-145) mmol/L Potassium (3.5-5.1) mmol/L Chloride (98-107) mmol/L Carbon Dioxide (22-30) mmol/L BUN (9-20) mg/dL Creatinine (0.66-1.25) mg/dL Glucose (74-99) mg/dL POC Glucose (mg/dL) 171 H 171 H (75-99) mg/dL Plasma Lactic Acid Oscar (0.7-2.0) mmol/L Calcium (8.4-10.2) mg/dL Phosphorus (2.5-4.5) mg/dL Magnesium (1.6-2.3) mg/dL AST (17-59) U/L ALT (4-49) U/L Alkaline Phosphatase (38-126) U/L Albumin (3.5-5.0) g/dL Urine Protein (Negative) Urine Glucose (UA) (Negative) Urine Blood (Negative) Ur Leukocyte Esterase (Negative) Urine RBC (0-5) /hpf Urine WBC (0-5) /hpf Urine WBC Clumps (None) /hpf Amorphous Sediment (None) /hpf Urine Bacteria (None) /hpf Urine Mucus (None) /hpf Urine Opiates Screen (NotDetected) 12/04/20 12/04/20 12/04/20 Range/Units 00:03 00:05 01:13 WBC (3.8-10.6) k/uL RBC (4.30-5.90) m/uL Hgb (13.0-17.5) gm/dL Hct (39.0-53.0) % RDW (11.5-15.5) % Neutrophils # (1.3-7.7) k/uL PT (9.0-12.0) sec INR (<1.2) VBG HCO3 (24-28) mmol/L Sodium 133 L (137-145) mmol/L Potassium 5.6 H (3.5-5.1) mmol/L Chloride 95 L (98-107) mmol/L Carbon Dioxide (22-30) mmol/L BUN 60 H (9-20) mg/dL Creatinine 6.95 H (0.66-1.25) mg/dL Glucose 163 H (74-99) mg/dL POC Glucose (mg/dL) 171 H 157 H (75-99) mg/dL Plasma Lactic Acid Oscar (0.7-2.0) mmol/L Calcium 7.6 L (8.4-10.2) mg/dL Phosphorus (2.5-4.5) mg/dL Magnesium (1.6-2.3) mg/dL AST (17-59) U/L ALT (4-49) U/L Alkaline Phosphatase (38-126) U/L Albumin (3.5-5.0) g/dL Urine Protein (Negative) Urine Glucose (UA) (Negative) Urine Blood (Negative) Ur Leukocyte Esterase (Negative) Urine RBC (0-5) /hpf Urine WBC (0-5) /hpf Urine WBC Clumps (None) /hpf Amorphous Sediment (None) /hpf Urine Bacteria (None) /hpf Urine Mucus (None) /hpf Urine Opiates Screen (NotDetected) 12/04/20 12/04/20 12/04/20 Range/Units 02:14 03:08 04:10 WBC 17.7 H (3.8-10.6) k/uL RBC 2.60 L (4.30-5.90) m/uL Hgb 8.2 L (13.0-17.5) gm/dL Hct 24.5 L (39.0-53.0) % RDW 15.9 H (11.5-15.5) % Neutrophils # (1.3-7.7) k/uL PT (9.0-12.0) sec INR (<1.2) VBG HCO3 (24-28) mmol/L Sodium (137-145) mmol/L Potassium (3.5-5.1) mmol/L Chloride (98-107) mmol/L Carbon Dioxide (22-30) mmol/L BUN (9-20) mg/dL Creatinine (0.66-1.25) mg/dL Glucose (74-99) mg/dL POC Glucose (mg/dL) 145 H 164 H (75-99) mg/dL Plasma Lactic Acid Oscar (0.7-2.0) mmol/L Calcium (8.4-10.2) mg/dL Phosphorus (2.5-4.5) mg/dL Magnesium (1.6-2.3) mg/dL AST (17-59) U/L ALT (4-49) U/L Alkaline Phosphatase (38-126) U/L Albumin (3.5-5.0) g/dL Urine Protein (Negative) Urine Glucose (UA) (Negative) Urine Blood (Negative) Ur Leukocyte Esterase (Negative) Urine RBC (0-5) /hpf Urine WBC (0-5) /hpf Urine WBC Clumps (None) /hpf Amorphous Sediment (None) /hpf Urine Bacteria (None) /hpf Urine Mucus (None) /hpf Urine Opiates Screen (NotDetected) 12/04/20 12/04/20 12/04/20 Range/Units 04:10 04:10 04:14 WBC (3.8-10.6) k/uL RBC (4.30-5.90) m/uL Hgb (13.0-17.5) gm/dL Hct (39.0-53.0) % RDW (11.5-15.5) % Neutrophils # (1.3-7.7) k/uL PT 12.5 H (9.0-12.0) sec INR 1.2 H (<1.2) VBG HCO3 (24-28) mmol/L Sodium 131 L (137-145) mmol/L Potassium 6.0 H (3.5-5.1) mmol/L Chloride 96 L (98-107) mmol/L Carbon Dioxide 21 L (22-30) mmol/L BUN 64 H (9-20) mg/dL Creatinine 7.16 H* (0.66-1.25) mg/dL Glucose 163 H (74-99) mg/dL POC Glucose (mg/dL) 170 H (75-99) mg/dL Plasma Lactic Acid Oscar (0.7-2.0) mmol/L Calcium 7.8 L (8.4-10.2) mg/dL Phosphorus (2.5-4.5) mg/dL Magnesium 3.5 H (1.6-2.3) mg/dL AST 5262 H (17-59) U/L ALT 4475 H (4-49) U/L Alkaline Phosphatase 403 H (38-126) U/L Albumin 3.4 L (3.5-5.0) g/dL Urine Protein (Negative) Urine Glucose (UA) (Negative) Urine Blood (Negative) Ur Leukocyte Esterase (Negative) Urine RBC (0-5) /hpf Urine WBC (0-5) /hpf Urine WBC Clumps (None) /hpf Amorphous Sediment (None) /hpf Urine Bacteria (None) /hpf Urine Mucus (None) /hpf Urine Opiates Screen (NotDetected) 12/04/20 12/04/20 12/04/20 Range/Units 04:59 06:04 06:20 WBC (3.8-10.6) k/uL RBC (4.30-5.90) m/uL Hgb (13.0-17.5) gm/dL Hct (39.0-53.0) % RDW (11.5-15.5) % Neutrophils # (1.3-7.7) k/uL PT (9.0-12.0) sec INR (<1.2) VBG HCO3 (24-28) mmol/L Sodium (137-145) mmol/L Potassium (3.5-5.1) mmol/L Chloride (98-107) mmol/L Carbon Dioxide (22-30) mmol/L BUN (9-20) mg/dL Creatinine (0.66-1.25) mg/dL Glucose (74-99) mg/dL POC Glucose (mg/dL) 177 H 180 H (75-99) mg/dL Plasma Lactic Acid Oscar (0.7-2.0) mmol/L Calcium (8.4-10.2) mg/dL Phosphorus (2.5-4.5) mg/dL Magnesium (1.6-2.3) mg/dL AST (17-59) U/L ALT (4-49) U/L Alkaline Phosphatase (38-126) U/L Albumin (3.5-5.0) g/dL Urine Protein 3+ H (Negative) Urine Glucose (UA) 2+ H (Negative) Urine Blood Large H (Negative) Ur Leukocyte Esterase Small H (Negative) Urine RBC 123 H (0-5) /hpf Urine WBC 45 H (0-5) /hpf Urine WBC Clumps Occasional H (None) /hpf Amorphous Sediment Rare H (None) /hpf Urine Bacteria Occasional H (None) /hpf Urine Mucus Rare H (None) /hpf Urine Opiates Screen (NotDetected) 12/04/20 12/04/20 12/04/20 Range/Units 06:20 07:11 08:00 WBC (3.8-10.6) k/uL RBC (4.30-5.90) m/uL Hgb (13.0-17.5) gm/dL Hct (39.0-53.0) % RDW (11.5-15.5) % Neutrophils # (1.3-7.7) k/uL PT (9.0-12.0) sec INR (<1.2) VBG HCO3 (24-28) mmol/L Sodium (137-145) mmol/L Potassium (3.5-5.1) mmol/L Chloride (98-107) mmol/L Carbon Dioxide (22-30) mmol/L BUN (9-20) mg/dL Creatinine (0.66-1.25) mg/dL Glucose (74-99) mg/dL POC Glucose (mg/dL) 194 H 185 H (75-99) mg/dL Plasma Lactic Acid Oscar (0.7-2.0) mmol/L Calcium (8.4-10.2) mg/dL Phosphorus (2.5-4.5) mg/dL Magnesium (1.6-2.3) mg/dL AST (17-59) U/L ALT (4-49) U/L Alkaline Phosphatase (38-126) U/L Albumin (3.5-5.0) g/dL Urine Protein (Negative) Urine Glucose (UA) (Negative) Urine Blood (Negative) Ur Leukocyte Esterase (Negative) Urine RBC (0-5) /hpf Urine WBC (0-5) /hpf Urine WBC Clumps (None) /hpf Amorphous Sediment (None) /hpf Urine Bacteria (None) /hpf Urine Mucus (None) /hpf Urine Opiates Screen Detected H (NotDetected) 12/04/20 Range/Units 09:09 WBC (3.8-10.6) k/uL RBC (4.30-5.90) m/uL Hgb (13.0-17.5) gm/dL Hct (39.0-53.0) % RDW (11.5-15.5) % Neutrophils # (1.3-7.7) k/uL PT (9.0-12.0) sec INR (<1.2) VBG HCO3 (24-28) mmol/L Sodium (137-145) mmol/L Potassium (3.5-5.1) mmol/L Chloride (98-107) mmol/L Carbon Dioxide (22-30) mmol/L BUN (9-20) mg/dL Creatinine (0.66-1.25) mg/dL Glucose (74-99) mg/dL POC Glucose (mg/dL) 188 H (75-99) mg/dL Plasma Lactic Acid Oscar (0.7-2.0) mmol/L Calcium (8.4-10.2) mg/dL Phosphorus (2.5-4.5) mg/dL Magnesium (1.6-2.3) mg/dL AST (17-59) U/L ALT (4-49) U/L Alkaline Phosphatase (38-126) U/L Albumin (3.5-5.0) g/dL Urine Protein (Negative) Urine Glucose (UA) (Negative) Urine Blood (Negative) Ur Leukocyte Esterase (Negative) Urine RBC (0-5) /hpf Urine WBC (0-5) /hpf Urine WBC Clumps (None) /hpf Amorphous Sediment (None) /hpf Urine Bacteria (None) /hpf Urine Mucus (None) /hpf Urine Opiates Screen (NotDetected) Thrombosis Risk Factor Assmnt - Choose All That Apply Each Factor Represents 1 point: Abnormal pulmonary function (COPD), Age 41-60 years, Medical pt on bed rest, Obesity (BMI >25) Other Risk Factors: No Other congenital or acquired thrombophilia - If yes, enter type in comment: No Thrombosis Risk Factor Assessment Total Risk Factor Score: 4 Thrombosis Risk Factor Assessment Level: Moderate Risk Assessment and Plan Plan: 1. Cardiac tamponade with a large pericardial effusion, and hypotension, requiring pericardial window on 12/04/[address] Ahuja, patient also had fever, hopefully cultures were obtained from the pericardial effusion, blood cultures are sent, patient is on Rocephin, Covid negative. 2. Sepsis with SIRS, on hemodialysis, multiple factors can relate to his sepsis, including hemodialysis, and the pericardial effusion could be underlying pus in the pericardial effusion also with pyuria. Cultures are all sent, I'm not sure if fluid will be sent from the pericardial effusion for culture, on IV Zosyn and vancomycin 3. Recent acute inferior wall myocardial infarction10/20/20 status post angiopl asty of the right coronary artery. Continue aspirin 81 mg daily, Lipitor 40 mg daily, Plavix 75 mg daily, Coreg 6.25 mg at bedtime, Demadex 40 mg at bedtime, lisinopril 5 mg at bedtime. Stress test performed 11/27/2020, abnormal difuse st elevation , could be in relation to pericarditis 3. End-stage renal disease on hemodialysis Tuesday. Consult with nephrology. Patient is scheduled for hemodialysis today, continue PhosLo. 5. Severe transaminitis, titers were sent for hepatitis, we will add CMV titers, acute panel GI consultation 4. Hypertension. Continue Coreg 6.25 mg at bedtime, lisinopril 5 mg at bedtime, Demadex. 5. Hyperlipidemia. Continue atorvastatin 40 mg at bedtime 6. Diabetes mellitus type 2 insulin requiring currently DKA on presentation,, uncontrolled with hyperglycemia. Currently on insulin drip, was on Levemir, regular insulin 20 units with meals and NovoLog scale before meals and at bedtime. 7. Obstructive sleep apnea. On CPAP 8. Gastroesophageal reflux disease. Protonix. 9. Diabetes with diabetic neuropathy and diabetic retinopathy. 10. Hypothyroidism. Continue levothyroxine 100 g daily. 11. Super morbid obesity with BMI of 48. 12. History of prostate cancer status post radiation therapy in 2017 in remission. 13. Anemia of chronic kidney disease. On ferrous sulfate 325 mg daily 14. Chronic gout. Continue allopurinol 300 mg at bedtime. Patient will be admitted to the hospital for a minimum of 2 night stay. Patient currently is critically ill prognosis guarded DISCHARGE PLAN To be determined
[2020-12-04 18:32] LABS: Glucose,Whole Blood 108 mg/dL (75-99)
[2020-12-04] MEDS: DEXTROSE 5%-0.9% NACL 1,000 ML IV SCH (19:09)
[2020-12-04 19:13] LABS: Glucose,Whole Blood 105 mg/dL (75-99)
[2020-12-04 21:01] LABS: Glucose,Whole Blood 119 mg/dL (75-99)
[2020-12-04] MEDS: LEVOTHYROXINE 100 MCG TAB PO SCH (21:43)
[2020-12-04 22:05] LABS: Glucose,Whole Blood 160 mg/dL (75-99)
[2020-12-04 22:35] LABS: Albumin 2.9 g/dL (3.5-5.0); Calcium 7.7 mg/dL (8.4-10.2); Potassium 4.4 mmol/L (3.5-5.1); Total Bilirubin 0.6 mg/dL (0.2-1.3); Total Protein 5.8 g/dL (6.3-8.2)
[2020-12-05 05:37] LABS: Glucose,Whole Blood 191 mg/dL (75-99)
[2020-12-05 05:37] LABS: Glucose,Whole Blood 251 mg/dL (75-99)
[2020-12-05 05:37] LABS: Glucose,Whole Blood 217 mg/dL (75-99)
[2020-12-05 05:38] LABS: Glucose,Whole Blood 219 mg/dL (75-99)
[2020-12-05 05:38] LABS: Glucose,Whole Blood 222 mg/dL (75-99)
[2020-12-05 05:38] LABS: Glucose,Whole Blood 234 mg/dL (75-99)
[2020-12-05 05:38] LABS: Glucose,Whole Blood 220 mg/dL (75-99)
[2020-12-05 06:12] LABS: Glucose,Whole Blood 219 mg/dL (75-99)
--- NOTE | 2020-12-05 06:41 | P.CONS ---
History of Present Illness - Reason for Consult Consult date: 12/04/20 elevated liver enzymes Requesting physician: Cherrie May - Chief Complaint shortness of breath - History of Present Illness 60-year-old male with multiple medical comorbidities including diabetes mellitus, end-stage renal disease on hemodialysis, obstructive sleep apnea, prior TIAs, chronic anemia, morbid obesity status post bariatric surgery/LAP- BAND in 2009, prior cholecystectomy and a known history of coronary artery disease with cardiac stent placement 7 weeks ago presented to the hospital with complaints of shortness of breath. Patient had been experiencing worsening shortness of breath prior to presentation worse with exertion as well as fevers. The patient is currently being managed in the intensive care unit where he was being treated for hyperglycemia as well as a pericardial effusion requiring formation of a pericardial window with cardiothoracic surgery. Patient was found to have markedly elevated liver enzymes on presentation primarily in the hepatocellular pattern with a total bilirubin 1.0, alkaline phosphatase 43, AST 5262 and ALT 4475. Other laboratory workup significant for WBC 17.7, hemoglobin 8.2, platelet count 330,000 with a BUN of 64. On questioning the patient denies any prior history of elevated liver enzymes or excessive alcohol use. Denies any viral hepatitis. He denies any pain in the abdomen. Patient has no history of decompensated liver disease. Previously he underwent EGD with the surgical service in 02/2017 for GERD significant for gastritis and LA grade a erosive esophagitis and states his last colonoscopy was 4-5 years ago with the surgical service. Review of Systems REVIEW OF SYSTEMS: CONSTITUTIONAL: Denies any chills, weight change or fatigue, however the patient did report fevers. CARDIOVASCULAR: Denies any chest pain, palpitations high or low blood pressures, however he did have episodes of hypotension noted during hospitalization. RESPIRATORY: Denies any shortness of breath, hemoptysis or coughat this time however the patient did present to the hospital with complaints of shortness of breath. GENITOURINARY: No dysuria or hematuria, he has a known history of end-stage renal disease on hemodialysis. MUSCULOSKELETAL: No weakness reported. SKIN: Denies any new rashes or lesions, jaundice or pallor. PSYCHIATRIC: Denies any depression or anxiety. NEUROLOGY: Denies headache, denies any new focal deficits. EARS/NOSE/THROAT: No recent hearing change, congestion, nasal discharge or sore throat. EYES: No pain in eyes, discharge or change in vision. GASTROINTESTINAL: As per HPI. Past Medical History Past Medical History: Coronary Artery Disease (CAD), Cancer, Heart Failure, CVA/TIA, Diabetes Mellitus, Eye Disorder, Hypertension, Myocardial Infarction (MT), Renal Disease, Sleep Apnea/CPAP/BIPAP, Thyroid Disorder Additional Past Medical History / Comment(s): IDDM type II, neuropathy bilateral lower extremity/feet, bilateral eye diabetic retinopathy/poor vision/multiple injections, ESRD with hemodialysis T//TUE, anemia, "mini strokes" x2, AVANI with CPap use, occasional low back pain/disc disease, gout, hypothyroid Last Myocardial Infarction Date:: 10/20/20 History of Any Multi-Drug Resistant Organisms: None Reported Past Surgical History: Adenoidectomy, Bariatric Surgery, Cholecystectomy, Heart Catheterization, Heart Catheterization With Stent, Orthopedic Surgery, Tonsi llectomy Additional Past Surgical History / Comment(s): 10/22/20 PCI with stents, lap banding, FX of right ankle repair pins / plate, fistual lt arm jul 2018, lt shoulder sx (d/t separation), colonoscopies, bilateral cataract removals/lens implants. Past Anesthesia/Blood Transfusion Reactions: Motion Sickness Additional Past Anesthesia/Blood Transfusion Reaction / Comm: CLAUSTERPHOBIA Date of Last Stent Placement:: 10/22/20 Past Psychological History: Anxiety Smoking Status: Former smoker - Past Family History Mother History Unknown: Yes Family Medical History: Coronary Artery Disease (CAD), Diabetes Mellitus, Myocardial Infarction (MT) Additional Family Medical History / Comment(s): Mother at age 58 from multiple sclerosis Father Family Medical History: CVA/TIA, Myocardial Infarction (MT) Additional Family Medical History / Comment(s): Father had history of MT and CVA followed by a second MT and CVA and at age 65. Brother(s) Additional Family Medical History / Comment(s): . Medications and Allergies Home Medications Medication Instructions Recorded Confirmed Type Atorvastatin [Lipitor] 40 mg PO HS 08/07/14 12/03/20 History Levothyroxine Sodium 100 mcg PO HS 07/06/17 12/03/20 History Torsemide [Demadex] 40 mg PO DAILY 09/10/19 12/03/20 History Allopurinol [Zyloprim] 300 mg PO HS 10/20/20 12/03/20 History Carvedilol [Coreg] 6.25 mg PO HS 10/20/20 12/03/20 History Magnebind 300mg 1 tab PO BID 10/20/20 12/03/20 History Magnesium Hydroxide [Milk of 2,400 mg PO DAILY PRN 10/20/20 12/03/20 History Magnesia] Bryanna-Olimpia 1 tab PO DAILY 10/20/20 12/03/20 History lisinopriL [Zestril] 5 mg PO BID 10/20/20 12/03/20 History Aspirin 81 mg PO DAILY #90 chew 10/22/20 12/03/20 Rx Calcium Acetate [PhosLo] 1,334 mg PO TID-W/MEALS tab 10/23/20 12/03/20 Rx Nitroglycerin Sl Tabs [Nitrostat] 0.4 mg SUBLINGUAL Q5M PRN #25 tab 10/23/20 12/03/20 Rx Calcium Carbonate [Tums Ultra 2,354 mg PO AC-BID PRN 11/24/20 12/03/20 History Strength] Clopidogrel Bisulfate [Plavix] 75 mg PO DAILY 11/24/20 12/03/20 History HYDROcodone/APAP 10-325MG [[place] 1 tab PO QID PRN 11/24/20 12/03/20 History 10-325] Insulin Detemir [Levemir Flextouch] 60 units SQ HS 11/24/20 12/03/20 History Insulin Regular, Human [Novolin R 30 unit SQ AC-TID 11/24/20 12/03/20 History Flexpen] Lactulose [Cephulac] 30 gm PO DAILY PRN 11/24/20 12/03/20 History Allergies Allergy/AdvReac Type Severity Reaction Status Date / Time No Known Allergies Allergy Verified 12/03/20 12:26 Physical Exam Vitals: Vital Signs Temp Pulse Resp BP Pulse Ox 12/04/20 11:00 89 20 104/72 94 L 12/04/20 08:00 98.4 F 86 20 95 12/04/20 07:30 94 20 12/04/20 07:00 88 26 H 96 12/04/20 06:30 88 22 92 L 12/04/20 06:00 90 22 94 L 12/04/20 05:30 100 20 94 L 03/25/21 05:00 87 23 93 L 12/04/20 04:30 86 21 93 L 12/04/20 04:00 87 24 93 L 12/04/20 03:30 87 21 95 12/04/20 03:00 99.3 F 87 18 94 L 12/04/20 02:30 82 16 95 12/04/20 02:00 84 23 97 12/04/20 01:30 22 96 12/04/20 01:00 83 18 96 12/04/20 00:30 82 17 98 12/04/20 00:00 97.9 F 82 15 100 12/03/20 23:30 80 15 99 12/03/20 23:28 16 12/03/20 23:00 78 16 99 12/03/20 22:30 79 14 100 12/03/20 22:00 73 19 97 12/03/20 21:30 79 15 100 12/03/20 21:00 73 16 100 12/03/20 20:30 74 13 99 12/03/20 20:00 98.6 F 73 22 74/54 100 12/03/20 19:30 74 26 H 92/53 100 12/03/20 19:00 70 19 72/51 100 12/03/20 18:30 71 22 79/65 100 12/03/20 18:29 98.7 F 76 19 105/80 99 12/03/20 18:00 76 19 105/80 99 12/03/20 17:30 77 23 100 12/03/20 17:16 98.7 F 14 111/83 98 12/03/20 16:54 85 22 92/50 96 12/03/20 16:44 79/43 12/03/20 15:59 79 18 62/50 97 12/03/20 15:00 79 18 70/41 12/03/20 14:30 78 18 90/52 12/03/20 14:14 98.9 F 12/03/20 14:05 80 20 120/103 100 Intake and Output 12/03/20 12/04/20 12/04/20 22:59 06:59 14:59 Intake Total 2264.002 881.659 966.000 Output Total 0 170 Balance 2264.002 881.659 796.000 Intake: IV 2000 400 450 Dextrose 5%-0.9% NaCl 1, 100 400 200 000 ml @ 50 mls/hr IV . Q20H [facility] Rx#:[id number] Sodium Chloride 0.9% 1, 400 000 ml @ 50 mls/hr IV . Q20H [facility] Rx#:[id number] Sodium Chloride 0.9% 500 1500 ml 500 ml @ 999 mls/hr IV .Q31M [facility] Rx#:[id number] Intake, IV Titration 264.002 481.659 516.000 Amount Insulin Regular 100 unit 174.234 101 In Sodium Chloride 0.9% 100 ml @ 0.1 UNITS/KG/HR 15.989 mls/hr IV .Q6H20M [facility] Rx#:[id number] Norepinephrine 4 mg In 89.768 380.659 Sodium Chloride 0.9% 250 ml @ 0.05 MCG/KG/MIN 30. 157 mls/hr IV .Q8H26M [facility] Rx#:[id number] Norepinephrine 8 mg In 516.000 Sodium Chloride 0.9% 250 ml @ 0.05 MCG/KG/MIN 15. 316 mls/hr IV .[id number] [facility] Rx#:[id number] Output: Chest Tube Drainage 160 Mediastinal 160 Urine 0 Estimated Blood Loss 10 Other: # Voids 0 Weight 158.304 kg 162.1 kg ABP, PAP, CO, CI - Last 8 Hours Arterial Blood Pressure 102/55 Arterial Blood Pressure 119/15 Arterial Blood Pressure 118/51 Arterial Blood Pressure 112/53 Arterial Blood Pressure 97/56 Arterial Blood Pressure 113/55 Arterial Blood Pressure 135/74 Arterial Blood Pressure 103/49 On physical examination, patient appears comfortable in no apparent distress. HEAD: Normocephalic, atraumatic. EYES: No scleral icterus. No conjunctival injection. MOUTH: No lesions, tongue midline. NECK: Trachea midline, no gross abnormalities. CHEST: decreased air entry in all lung wallace, just to place. HEART: S1-S2 appreciated. ABDOMEN: Soft, obese. Bowel sounds are positive. No organomegaly. No guarding or rigidity. EXTREMITIES: bilateral pedal edema. SKIN: No rashes, no jaundice. NEUROLOGIC: Alert and oriented x3. Results CBC & Chem 7: 12/04/20 04:10 12/04/20 22:02 Labs: Abnormal Lab Results - Last 24 Hours (Table) 12/03/20 12/03/20 12/03/20 Range/Units 12:08 12:08 14:05 WBC 13.9 H (3.8-10.6) k/uL RBC 2.71 L (4.30-5.90) m/uL Hgb 8.5 L D (13.0-17.5) gm/dL Hct 26.6 L (39.0-53.0) % RDW 16.1 H (11.5-15.5) % Neutrophils # 11.9 H (1.3-7.7) k/uL PT (9.0-12.0) sec INR (<1.2) VBG HCO3 (24-28) mmol/L Sodium 125 L (137-145) mmol/L Potassium 7.5 H* (3.5-5.1) mmol/L Chloride 85 L (98-107) mmol/L Carbon Dioxide (22-30) mmol/L BUN 56 H (9-20) mg/dL Creatinine 6.30 H (0.66-1.25) mg/dL Glucose 584 H* (74-99) mg/dL POC Glucose (mg/dL) (75-99) mg/dL Plasma Lactic Acid Oscar 5.4 H* (0.7-2.0) mmol/L Calcium 8.2 L (8.4-10.2) mg/dL Phosphorus (2.5-4.5) mg/dL Magnesium 3.4 H (1.6-2.3) mg/dL AST 1897 H (17-59) U/L ALT 1615 H (4-49) U/L Alkaline Phosphatase 214 H (38-126) U/L Albumin (3.5-5.0) g/dL Urine Protein (Negative) Urine Glucose (UA) (Negative) Urine Blood (Negative) Ur Leukocyte Esterase (Negative) Urine RBC (0-5) /hpf Urine WBC (0-5) /hpf Urine WBC Clumps (None) /hpf Amorphous Sediment (None) /hpf Urine Bacteria (None) /hpf Urine Mucus (None) /hpf Urine Opiates Screen (NotDetected) 12/03/20 12/03/20 12/03/20 Range/Units 14:11 14:12 14:51 WBC (3.8-10.6) k/uL RBC (4.30-5.90) m/uL Hgb (13.0-17.5) gm/dL Hct (39.0-53.0) % RDW (11.5-15.5) % Neutrophils # (1.3-7.7) k/uL PT (9.0-12.0) sec INR (<1.2) VBG HCO3 (24-28) mmol/L Sodium (137-145) mmol/L Potassium (3.5-5.1) mmol/L Chloride (98-107) mmol/L Carbon Dioxide (22-30) mmol/L BUN (9-20) mg/dL Creatinine (0.66-1.25) mg/dL Glucose (74-99) mg/dL POC Glucose (mg/dL) 590 H >600 H 537 H (75-99) mg/dL Plasma Lactic Acid Oscar (0.7-2.0) mmol/L Calcium (8.4-10.2) mg/dL Phosphorus (2.5-4.5) mg/dL Magnesium (1.6-2.3) mg/dL AST (17-59) U/L ALT (4-49) U/L Alkaline Phosphatase (38-126) U/L Albumin (3.5-5.0) g/dL Urine Protein (Negative) Urine Glucose (UA) (Negative) Urine Blood (Negative) Ur Leukocyte Esterase (Negative) Urine RBC (0-5) /hpf Urine WBC (0-5) /hpf Urine WBC Clumps (None) /hpf Amorphous Sediment (None) /hpf Urine Bacteria (None) /hpf Urine Mucus (None) /hpf Urine Opiates Screen (NotDetected) 12/03/20 12/03/20 12/03/20 Range/Units 15:24 15:24 15:24 WBC (3.8-10.6) k/uL RBC (4.30-5.90) m/uL Hgb (13.0-17.5) gm/dL Hct (39.0-53.0) % RDW (11.5-15.5) % Neutrophils # (1.3-7.7) k/uL PT (9.0-12.0) sec INR (<1.2) VBG HCO3 22 L (24-28) mmol/L Sodium 132 L (137-145) mmol/L Potassium 6.3 H* (3.5-5.1) mmol/L Chloride 91 L (98-107) mmol/L Carbon Dioxide (22-30) mmol/L BUN 55 H (9-20) mg/dL Creatinine 6.60 H (0.66-1.25) mg/dL Glucose 471 H (74-99) mg/dL POC Glucose (mg/dL) (75-99) mg/dL Plasma Lactic Acid Oscar (0.7-2.0) mmol/L Calcium (8.4-10.2) mg/dL Phosphorus 6.8 H (2.5-4.5) mg/dL Magnesium (1.6-2.3) mg/dL AST (17-59) U/L ALT (4-49) U/L Alkaline Phosphatase (38-126) U/L Albumin (3.5-5.0) g/dL Urine Protein (Negative) Urine Glucose (UA) (Negative) Urine Blood (Negative) Ur Leukocyte Esterase (Negative) Urine RBC (0-5) /hpf Urine WBC (0-5) /hpf Urine WBC Clumps (None) /hpf Amorphous Sediment (None) /hpf Urine Bacteria (None) /hpf Urine Mucus (None) /hpf Urine Opiates Screen (NotDetected) 12/03/20 12/03/20 12/03/20 Range/Units 15:24 15:48 17:14 WBC (3.8-10.6) k/uL RBC (4.30-5.90) m/uL Hgb (13.0-17.5) gm/dL Hct (39.0-53.0) % RDW (11.5-15.5) % Neutrophils # (1.3-7.7) k/uL PT 12.4 H (9.0-12.0) sec INR 1.2 H (<1.2) VBG HCO3 (24-28) mmol/L Sodium (137-145) mmol/L Potassium (3.5-5.1) mmol/L Chloride (98-107) mmol/L Carbon Dioxide (22-30) mmol/L BUN (9-20) mg/dL Creatinine (0.66-1.25) mg/dL Glucose (74-99) mg/dL POC Glucose (mg/dL) 469 H 371 H (75-99) mg/dL Plasma Lactic Acid Oscar (0.7-2.0) mmol/L Calcium (8.4-10.2) mg/dL Phosphorus (2.5-4.5) mg/dL Magnesium (1.6-2.3) mg/dL AST (17-59) U/L ALT (4-49) U/L Alkaline Phosphatase (38-126) U/L Albumin (3.5-5.0) g/dL Urine Protein (Negative) Urine Glucose (UA) (Negative) Urine Blood (Negative) Ur Leukocyte Esterase (Negative) Urine RBC (0-5) /hpf Urine WBC (0-5) /hpf Urine WBC Clumps (None) /hpf Amorphous Sediment (None) /hpf Urine Bacteria (None) /hpf Urine Mucus (None) /hpf Urine Opiates Screen (NotDetected) 12/03/20 12/03/20 12/03/20 Range/Units 18:10 18:47 19:00 WBC (3.8-10.6) k/uL RBC (4.30-5.90) m/uL Hgb (13.0-17.5) gm/dL Hct (39.0-53.0) % RDW (11.5-15.5) % Neutrophils # (1.3-7.7) k/uL PT (9.0-12.0) sec INR (<1.2) VBG HCO3 (24-28) mmol/L Sodium (137-145) mmol/L Potassium (3.5-5.1) mmol/L Chloride (98-107) mmol/L Carbon Dioxide (22-30) mmol/L BUN (9-20) mg/dL Creatinine (0.66-1.25) mg/dL Glucose (74-99) mg/dL POC Glucose (mg/dL) 338 H 335 H (75-99) mg/dL Plasma Lactic Acid Oscar 4.2 H* (0.7-2.0) mmol/L Calcium (8.4-10.2) mg/dL Phosphorus (2.5-4.5) mg/dL Magnesium (1.6-2.3) mg/dL AST (17-59) U/L ALT (4-49) U/L Alkaline Phosphatase (38-126) U/L Albumin (3.5-5.0) g/dL Urine Protein (Negative) Urine Glucose (UA) (Negative) Urine Blood (Negative) Ur Leukocyte Esterase (Negative) Urine RBC (0-5) /hpf Urine WBC (0-5) /hpf Urine WBC Clumps (None) /hpf Amorphous Sediment (None) /hpf Urine Bacteria (None) /hpf Urine Mucus (None) /hpf Urine Opiates Screen (NotDetected) 12/03/20 12/03/20 12/03/20 Range/Units 19:01 20:03 21:16 WBC (3.8-10.6) k/uL RBC (4.30-5.90) m/uL Hgb (13.0-17.5) gm/dL Hct (39.0-53.0) % RDW (11.5-15.5) % Neutrophils # (1.3-7.7) k/uL PT (9.0-12.0) sec INR (<1.2) VBG HCO3 (24-28) mmol/L Sodium 135 L (137-145) mmol/L Potassium 5.5 H (3.5-5.1) mmol/L Chloride 96 L (98-107) mmol/L Carbon Dioxide (22-30) mmol/L BUN 53 H (9-20) mg/dL Creatinine 5.97 H (0.66-1.25) mg/dL Glucose 264 H (74-99) mg/dL POC Glucose (mg/dL) 291 H 183 H (75-99) mg/dL Plasma Lactic Acid Oscar (0.7-2.0) mmol/L Calcium (8.4-10.2) mg/dL Phosphorus 5.9 H (2.5-4.5) mg/dL Magnesium (1.6-2.3) mg/dL AST (17-59) U/L ALT (4-49) U/L Alkaline Phosphatase (38-126) U/L Albumin (3.5-5.0) g/dL Urine Protein (Negative) Urine Glucose (UA) (Negative) Urine Blood (Negative) Ur Leukocyte Esterase (Negative) Urine RBC (0-5) /hpf Urine WBC (0-5) /hpf Urine WBC Clumps (None) /hpf Amorphous Sediment (None) /hpf Urine Bacteria (None) /hpf Urine Mucus (None) /hpf Urine Opiates Screen (NotDetected) 12/03/20 12/03/20 12/03/20 Range/Units 21:21 21:56 23:00 WBC 12.7 H (3.8-10.6) k/uL RBC 2.36 L (4.30-5.90) m/uL Hgb 7.6 L (13.0-17.5) gm/dL Hct 22.1 L (39.0-53.0) % RDW 15.8 H (11.5-15.5) % Neutrophils # (1.3-7.7) k/uL PT (9.0-12.0) sec INR (<1.2) VBG HCO3 (24-28) mmol/L Sodium (137-145) mmol/L Potassium (3.5-5.1) mmol/L Chloride (98-107) mmol/L Carbon Dioxide (22-30) mmol/L BUN (9-20) mg/dL Creatinine (0.66-1.25) mg/dL Glucose (74-99) mg/dL POC Glucose (mg/dL) 171 H 171 H (75-99) mg/dL Plasma Lactic Acid Oscar (0.7-2.0) mmol/L Calcium (8.4-10.2) mg/dL Phosphorus (2.5-4.5) mg/dL Magnesium (1.6-2.3) mg/dL AST (17-59) U/L ALT (4-49) U/L Alkaline Phosphatase (38-126) U/L Albumin (3.5-5.0) g/dL Urine Protein (Negative) Urine Glucose (UA) (Negative) Urine Blood (Negative) Ur Leukocyte Esterase (Negative) Urine RBC (0-5) /hpf Urine WBC (0-5) /hpf Urine WBC Clumps (None) /hpf Amorphous Sediment (None) /hpf Urine Bacteria (None) /hpf Urine Mucus (None) /hpf Urine Opiates Screen (NotDetected) 12/04/20 12/04/20 12/04/20 Range/Units 00:03 00:05 01:13 WBC (3.8-10.6) k/uL RBC (4.30-5.90) m/uL Hgb (13.0-17.5) gm/dL Hct (39.0-53.0) % RDW (11.5-15.5) % Neutrophils # (1.3-7.7) k/uL PT (9.0-12.0) sec INR (<1.2) VBG HCO3 (24-28) mmol/L Sodium 133 L (137-145) mmol/L Potassium 5.6 H (3.5-5.1) mmol/L Chloride 95 L (98-107) mmol/L Carbon Dioxide (22-30) mmol/L BUN 60 H (9-20) mg/dL Creatinine 6.95 H (0.66-1.25) mg/dL Glucose 163 H (74-99) mg/dL POC Glucose (mg/dL) 171 H 157 H (75-99) mg/dL Plasma Lactic Acid Oscar (0.7-2.0) mmol/L Calcium 7.6 L (8.4-10.2) mg/dL Phosphorus (2.5-4.5) mg/dL Magnesium (1.6-2.3) mg/dL AST (17-59) U/L ALT (4-49) U/L Alkaline Phosphatase (38-126) U/L Albumin (3.5-5.0) g/dL Urine Protein (Negative) Urine Glucose (UA) (Negative) Urine Blood (Negative) Ur Leukocyte Esterase (Negative) Urine RBC (0-5) /hpf Urine WBC (0-5) /hpf Urine WBC Clumps (None) /hpf Amorphous Sediment (None) /hpf Urine Bacteria (None) /hpf Urine Mucus (None) /hpf Urine Opiates Screen (NotDetected) 12/04/20 12/04/20 12/04/20 Range/Units 02:14 03:08 04:10 WBC 17.7 H (3.8-10.6) k/uL RBC 2.60 L (4.30-5.90) m/uL Hgb 8.2 L (13.0-17.5) gm/dL Hct 24.5 L (39.0-53.0) % RDW 15.9 H (11.5-15.5) % Neutrophils # (1.3-7.7) k/uL PT (9.0-12.0) sec INR (<1.2) VBG HCO3 (24-28) mmol/L Sodium (137-145) mmol/L Potassium (3.5-5.1) mmol/L Chloride (98-107) mmol/L Carbon Dioxide (22-30) mmol/L BUN (9-20) mg/dL Creatinine (0.66-1.25) mg/dL Glucose (74-99) mg/dL POC Glucose (mg/dL) 145 H 164 H (75-99) mg/dL Plasma Lactic Acid Oscar (0.7-2.0) mmol/L Calcium (8.4-10.2) mg/dL Phosphorus (2.5-4.5) mg/dL Magnesium (1.6-2.3) mg/dL AST (17-59) U/L ALT (4-49) U/L Alkaline Phosphatase (38-126) U/L Albumin (3.5-5.0) g/dL Urine Protein (Negative) Urine Glucose (UA) (Negative) Urine Blood (Negative) Ur Leukocyte Esterase (Negative) Urine RBC (0-5) /hpf Urine WBC (0-5) /hpf Urine WBC Clumps (None) /hpf Amorphous Sediment (None) /hpf Urine Bacteria (None) /hpf Urine Mucus (None) /hpf Urine Opiates Screen (NotDetected) 12/04/20 12/04/20 12/04/20 Range/Units 04:10 04:10 04:14 WBC (3.8-10.6) k/uL RBC (4.30-5.90) m/uL Hgb (13.0-17.5) gm/dL Hct (39.0-53.0) % RDW (11.5-15.5) % Neutrophils # (1.3-7.7) k/uL PT 12.5 H (9.0-12.0) sec INR 1.2 H (<1.2) VBG HCO3 (24-28) mmol/L Sodium 131 L (137-145) mmol/L Potassium 6.0 H (3.5-5.1) mmol/L Chloride 96 L (98-107) mmol/L Carbon Dioxide 21 L (22-30) mmol/L BUN 64 H (9-20) mg/dL Creatinine 7.16 H* (0.66-1.25) mg/dL Glucose 163 H (74-99) mg/dL POC Glucose (mg/dL) 170 H (75-99) mg/dL Plasma Lactic Acid Oscar (0.7-2.0) mmol/L Calcium 7.8 L (8.4-10.2) mg/dL Phosphorus (2.5-4.5) mg/dL Magnesium 3.5 H (1.6-2.3) mg/dL AST 5262 H (17-59) U/L ALT 4475 H (4-49) U/L Alkaline Phosphatase 403 H (38-126) U/L Albumin 3.4 L (3.5-5.0) g/dL Urine Protein (Negative) Urine Glucose (UA) (Negative) Urine Blood (Negative) Ur Leukocyte Esterase (Negative) Urine RBC (0-5) /hpf Urine WBC (0-5) /hpf Urine WBC Clumps (None) /hpf Amorphous Sediment (None) /hpf Urine Bacteria (None) /hpf Urine Mucus (None) /hpf Urine Opiates Screen (NotDetected) 12/04/20 12/04/20 12/04/20 Range/Units 04:59 06:04 06:20 WBC (3.8-10.6) k/uL RBC (4.30-5.90) m/uL Hgb (13.0-17.5) gm/dL Hct (39.0-53.0) % RDW (11.5-15.5) % Neutrophils # (1.3-7.7) k/uL PT (9.0-12.0) sec INR (<1.2) VBG HCO3 (24-28) mmol/L Sodium (137-145) mmol/L Potassium (3.5-5.1) mmol/L Chloride (98-107) mmol/L Carbon Dioxide (22-30) mmol/L BUN (9-20) mg/dL Creatinine (0.66-1.25) mg/dL Glucose (74-99) mg/dL POC Glucose (mg/dL) 177 H 180 H (75-99) mg/dL Plasma Lactic Acid Oscar (0.7-2.0) mmol/L Calcium (8.4-10.2) mg/dL Phosphorus (2.5-4.5) mg/dL Magnesium (1.6-2.3) mg/dL AST (17-59) U/L ALT (4-49) U/L Alkaline Phosphatase (38-126) U/L Albumin (3.5-5.0) g/dL Urine Protein 3+ H (Negative) Urine Glucose (UA) 2+ H (Negative) Urine Blood Large H (Negative) Ur Leukocyte Esterase Small H (Negative) Urine RBC 123 H (0-5) /hpf Urine WBC 45 H (0-5) /hpf Urine WBC Clumps Occasional H (None) /hpf Amorphous Sediment Rare H (None) /hpf Urine Bacteria Occasional H (None) /hpf Urine Mucus Rare H (None) /hpf Urine Opiates Screen (NotDetected) 12/04/20 12/04/20 12/04/20 Range/Units 06:20 07:11 08:00 WBC (3.8-10.6) k/uL RBC (4.30-5.90) m/uL Hgb (13.0-17.5) gm/dL Hct (39.0-53.0) % RDW (11.5-15.5) % Neutrophils # (1.3-7.7) k/uL PT (9.0-12.0) sec INR (<1.2) VBG HCO3 (24-28) mmol/L Sodium (137-145) mmol/L Potassium (3.5-5.1) mmol/L Chloride (98-107) mmol/L Carbon Dioxide (22-30) mmol/L BUN (9-20) mg/dL Creatinine (0.66-1.25) mg/dL Glucose (74-99) mg/dL POC Glucose (mg/dL) 194 H 185 H (75-99) mg/dL Plasma Lactic Acid Oscar (0.7-2.0) mmol/L Calcium (8.4-10.2) mg/dL Phosphorus (2.5-4.5) mg/dL Magnesium (1.6-2.3) mg/dL AST (17-59) U/L ALT (4-49) U/L Alkaline Phosphatase (38-126) U/L Albumin (3.5-5.0) g/dL Urine Protein (Negative) Urine Glucose (UA) (Negative) Urine Blood (Negative) Ur Leukocyte Esterase (Negative) Urine RBC (0-5) /hpf Urine WBC (0-5) /hpf Urine WBC Clumps (None) /hpf Amorphous Sediment (None) /hpf Urine Bacteria (None) /hpf Urine Mucus (None) /hpf Urine Opiates Screen Detected H (NotDetected) 12/04/20 12/04/20 12/04/20 Range/Units 09:09 11:01 11:40 WBC (3.8-10.6) k/uL RBC (4.30-5.90) m/uL Hgb (13.0-17.5) gm/dL Hct (39.0-53.0) % RDW (11.5-15.5) % Neutrophils # (1.3-7.7) k/uL PT (9.0-12.0) sec INR (<1.2) VBG HCO3 (24-28) mmol/L Sodium (137-145) mmol/L Potassium (3.5-5.1) mmol/L Chloride (98-107) mmol/L Carbon Dioxide (22-30) mmol/L BUN (9-20) mg/dL Creatinine (0.66-1.25) mg/dL Glucose (74-99) mg/dL POC Glucose (mg/dL) 188 H 168 H 171 H (75-99) mg/dL Plasma Lactic Acid Oscar (0.7-2.0) mmol/L Calcium (8.4-10.2) mg/dL Phosphorus (2.5-4.5) mg/dL Magnesium (1.6-2.3) mg/dL AST (17-59) U/L ALT (4-49) U/L Alkaline Phosphatase (38-126) U/L Albumin (3.5-5.0) g/dL Urine Protein (Negative) Urine Glucose (UA) (Negative) Urine Blood (Negative) Ur Leukocyte Esterase (Negative) Urine RBC (0-5) /hpf Urine WBC (0-5) /hpf Urine WBC Clumps (None) /hpf Amorphous Sediment (None) /hpf Urine Bacteria (None) /hpf Urine Mucus (None) /hpf Urine Opiates Screen (NotDetected) US - abdomen: pending (ultrasound of the abdomen for evaluation of elevated liver enzymes ordered and pending.) Assessment and Plan (1) Elevated liver enzymes Narrative/Plan: 60-year-old male with multiple medical comorbidities who presented to the hospital with complaints of shortness of breath and was found to be hyperglycemic for which he is receiving treatment as well as being found to have developed a pericardial effusion for which he is status post pericardial window. The patient did experience episodes of hypotension was found to have a markedly elevated LFT profile predominantly in a hepatocellular pattern with a normal total bilirubin of 1.0, alkaline phosphatase was found to be 403 and AST and ALT were found to be markedly elevated at 5262 and 4475 respectively. Denies any prior history of elevated liver enzymes, but suspicion is for some degree of underlying liver disease in the setting of metabolic syndrome. He denies any viral hepatitis. Suspicion is for elevation in liver enzymes secondary to ischemic hepatitis, plan is for viral hepatitis profile to rule out viral infection, differential also includes medication effect. Current Visit: Yes Status: Acute Code(s): R74.8 - ABNORMAL LEVELS OF OTHER SERUM ENZYMES SNOMED Code(s): 483750589 (2) History of bariatric surgery Current Visit: Yes Status: Acute Code(s): Z98.84 - BARIATRIC SURGERY STATUS SNOMED Code(s): 619831096 Plan: supportive care Okay for diet as tolerated Continue other medical management as per ICU Avoid hepatotoxic medications Continue to monitor CBC, BMP, LFTs Acute viral hepatitis panel ordered Ultrasound of the abdomen ordered Suspicion is that liver enzymes will improve moving forward, However his AST and ALT remained elevated full liver serology will be ordered to rule out intrinsic liver disease Thank you for allowing us to participate in the care of the patient
[2020-12-05 06:59] LABS: Glucose,Whole Blood 234 mg/dL (75-99)
--- NOTE | 2020-12-05 07:04 | P.PN ---
Subjective Progress Note Date: 12/05/20 60-year-old male patient presented to the ED with worsening shortness of breath. The patient has multiple medical problems and comorbidities. First of all, the patient has incisional disease and the patient on hemodialysis 3 times a week, TTS in addition to diabetes mellitus type 2 on insulin, hypertension, hyperlipidemia, obstructive sleep apnea maintained on CPAP, diabetes mellitus with diabetic neuropathy and retinopathy, hypothyroidism and history of prostate cancer. The patient also has gout. The patient is morbidly obese and carries a BMI of 48.7. Also, the patient was involved in acute inferior wall myocardial infarction requiring angioplasty of the right coronary artery he weeks back. The patient came into the hospital because of worsening shortness of breath. The patient was found also to be hypotensive during dialysis and the dialysis had to be done at a low rate. The patient also stated that he was feeling weak and he was in bed all the time and he was unable to get up and walk along with his shortness of breath. He denies having any chest pain. Denied having any palpitation. No reported fever or chills. No reported nausea vomiting or abdominal pain. In the ED, his blood pressure was noted to be low and he was given a bolus of 1 L of IV fluids. No pressors were initiated. The patient a white cell count of 13.9, hemoglobin of 8.5 with a platelet count of 26, coagulation profile is within normal limits, initial potassium level was 7.7 the patient is a 22 with anion gap of 18. Noted the patient's blood sugar was above 600. Lactic acid level was at 5.4. Phosphorus was at 3.4 with a calcium level of 8.2. AST was 1897 and ALT was 1615 with a normal alkaline phosphatase of 215 and a troponin was negative with a proBNP level of 2870. The patient was given insulin and the blood sugars started to improve. Currently the patient on insulin drip at 0.1 units per kilogram per hour and the most recent potassium level is down to 6.3. Sugar is at 471. Alcohol level was negative. Covid 19 testing was also negative. Chest x-ray shows cardiomegaly otherwise no other acute abnormalities of been noted. The EKG is consistent with normal sinus rhythm. Nonspecific ST segment abnormalities. On today's evaluation 12/04/2020 the patient is in the intensive care unit. He is in ICU for 2 reasons. First he is hypotensive and second he was indicated the time of admission. In terms of his DKA, the patient remains on an insulin drip is running at 4 units an hour. The blood sugar recently is down to 180. anion gap is at 14 with a serum bicarb of 21. As such, the anion gap has almost closed the patient is improving and the potassium level is down to 6. At the same time, the patient is receiving IV fluids in the form of D5 0.9 at the rate of 50 mL an hour. In terms of his blood pressure, the patient received boluses of normal saline, a total of 3.5 L since emergency department. He remains hypotensive. Currently norepinephrine infusion is running at a dose of 0.2 mcg/kg per minute. This is quite a large dose for him. Exact cause for the hypotension remains unclear. He is free of any chest pain. No signs of any infection. He was given a dose of Rocephin in the emergency addition to vancomycin. His white cell count today is at 17.7 and the patient is afebrile. The blood cultures of been negative. Villar cath is in place and the patient has not produced any urine output. Abdomen is soft. The patient has developed shock liver and there is increase in the AST and ALP. AST is up to 5262 and ALP is up to 4475. The lactic acid level peaked at 5.4 and is down to 1.9. 12/05/2020 I'm seeing the patient for a follow-up. Events from yesterday was noted. Echo showed a large pericardial effusion and this was the main reason f or the patient's hemodynamic instability. At that point, I consulted cardiothoracic surgery and the patient underwent a pericardial window for a total of 1 L of bloody pericardial fluid was aspirated successfully. Immediately following that, the patient's hemodynamics improved and the patient is currently off pressors. He was brought back to the intensive care unit. Pressors were discontinued. The patient also underwent dialysis yesterday without any major complications. This morning, the patient is being seen for a follow-up. As the patient still has his pericardial tube in place and output has been about 42 mild. As mentioned, he is on no pressors for now. He was given empiric antibiotic coverage suspecting infection. He was given a combination of Rocephin and vancomycin and both can be discontinued at this point in time. Labs from today are still pending. Culture is negative. He was in shock liver in the follow-up liver function tests are still pending for now. He is awake. He is following commands. Answering questions. Most recent blood pressure is stable and the patient is not having any significant hypotension. In terms of his DKA, the patient's gap has closed and the patient is still on insulin drip at 2.25 units an hour. He is on IV fluids with D5 normal saline at 50 mL an hour. He is tolerating diet. No other significant issues with electrolytes pending blood work from today. Objective - Vital Signs Vital signs: Vital Signs Temp 98.2 F 12/04/20 19:56 Pulse 87 12/04/20 22:00 Resp 17 12/04/20 22:00 BP 119/63 12/04/20 22:00 Pulse Ox 90 L 12/04/20 22:00 Intake & Output 12/04/20 12/04/20 12/05/20 06:59 18:59 06:59 Intake Total 2171.011 2257.000 400 Output Total 450 1547 Balance 2171.011 1807.000 -1147 Weight 162.1 kg 161.4 kg Intake: IV 1500 1400 400 Dextrose 5%-0.9% NaCl 1, 500 550 400 000 ml @ 50 mls/hr IV . Q20H [facility] Rx#:[id number] Piperacillin-Tazobactam 3 100 .375 gm In Sodium Chloride 0.9% 100 ml @ 25 mls/hr IVPB Q12HR [facility] Rx #:[id number] Sodium Chloride 0.9% 500 1000 ml 500 ml @ 999 mls/hr IV .Q31M [facility] Rx#:[id number] Vancomycin 2,250 mg In 500 Sodium Chloride 0.9% 500 ml 500 ml @ 167 mls/hr IVPB ONCE@1300 [facility] Rx#: [id number] Intake, IV Titration 671.011 617.000 Amount Insulin Regular 100 unit 200.584 101 In Sodium Chloride 0.9% 100 ml @ 0.1 UNITS/KG/HR 15.989 mls/hr IV .Q6H20M [facility] Rx#:[id number] Norepinephrine 4 mg In 470.427 Sodium Chloride 0.9% 250 ml @ 0.05 MCG/KG/MIN 30. 157 mls/hr IV .Q8H26M [facility] Rx#:[id number] Norepinephrine 8 mg In 516.000 Sodium Chloride 0.9% 250 ml @ 0.05 MCG/KG/MIN 15. 316 mls/hr IV .[id number] [facility] Rx#:[id number] Oral 240 Output: Chest Tube Drainage 180 12 Mediastinal 180 12 Urine 260 35 Hemodialysis 1500 Estimated Blood Loss 10 ABP, PAP, CO, CI - Last Documented Arterial Blood Pressure 116/57 - Exam Morbidly obese, comfortable likely distress, he is on 3 L of oxygen by nasal cannula, Head exam was generally normal. There was no scleral icterus or corneal arcus. Mucous membranes were moist. Neck was supple and without jugular venous distension, thyromegaly, or carotid bruits. Carotids were easily palpable bilaterally. There was no adenopathy. The patient is a Mallampati class IV Lungs were clear to auscultation and percussion, and with normal diaphragmatic excursion. No wheezes or rales were noted. Cardiac exam revealed the PMI to be normally situated and sized. The rhythm was regular and no extrasystoles were noted during several minutes of auscultation. The first and second heart sounds were normal and physiologic splitting of the second heart sound was noted. There were no murmurs, rubs, clicks, or gallops.the patient has a pericardial window minimal amount output Abdomen is obese and the organs cannot be accurately palpated. There is no direct tenderness or rebound tenderness or guarding. Examination of the extremities revealed easily palpable radial, femoral and pedal pulses. There was no cyanosis, clubbing or edema. The patient has a funct ional AV fistula in the left upper extremity. At the same time the patient has neuropathy and skin sloughing and his tip of the left index finger which he attributes to picking and burning while picking up hot objects as the patient has extensive neuropathy. No signs of any infection at this point in time. Pulses in the various lower extremities are quite diminished but they're palpable. Neurologically, the patient is awake and alert and the patient does not have any focal neurological deficit. Cranial nerves are essentially intact. Examination of the skin as mentioned above specially in the tip of the fingers. - Labs CBC & Chem 7: 12/04/20 04:10 12/04/20 22:02 Labs: Abnormal Lab Results - Last 24 Hours (Table) 12/04/20 12/04/20 12/04/20 Range/Units 04:10 06:20 06:20 PT 12.5 H (9.0-12.0) sec INR 1.2 H (<1.2) Sodium (137-145) mmol/L Potassium (3.5-5.1) mmol/L Chloride (98-107) mmol/L BUN (9-20) mg/dL Creatinine (0.66-1.25) mg/dL Glucose (74-99) mg/dL POC Glucose (mg/dL) (75-99) mg/dL Calcium (8.4-10.2) mg/dL AST (17-59) U/L ALT (4-49) U/L Alkaline Phosphatase (38-126) U/L Total Protein (6.3-8.2) g/dL Albumin (3.5-5.0) g/dL Urine Protein 3+ H (Negative) Urine Glucose (UA) 2+ H (Negative) Urine Blood Large H (Negative) Ur Leukocyte Esterase Small H (Negative) Urine RBC 123 H (0-5) /hpf Urine WBC 45 H (0-5) /hpf Urine WBC Clumps Occasional H (None) /hpf Amorphous Sediment Rare H (None) /hpf Urine Bacteria Occasional H (None) /hpf Urine Mucus Rare H (None) /hpf Urine Opiates Screen Detected H (NotDetected) 12/04/20 12/04/20 12/04/20 Range/Units 07:11 08:00 09:09 PT (9.0-12.0) sec INR (<1.2) Sodium (137-145) mmol/L Potassium (3.5-5.1) mmol/L Chloride (98-107) mmol/L BUN (9-20) mg/dL Creatinine (0.66-1.25) mg/dL Glucose (74-99) mg/dL POC Glucose (mg/dL) 194 H 185 H 188 H (75-99) mg/dL Calcium (8.4-10.2) mg/dL AST (17-59) U/L ALT (4-49) U/L Alkaline Phosphatase (38-126) U/L Total Protein (6.3-8.2) g/dL Albumin (3.5-5.0) g/dL Urine Protein (Negative) Urine Glucose (UA) (Negative) Urine Blood (Negative) Ur Leukocyte Esterase (Negative) Urine RBC (0-5) /hpf Urine WBC (0-5) /hpf Urine WBC Clumps (None) /hpf Amorphous Sediment (None) /hpf Urine Bacteria (None) /hpf Urine Mucus (None) /hpf Urine Opiates Screen (NotDetected) 12/04/20 12/04/20 12/04/20 Range/Units 11:01 11:40 13:04 PT (9.0-12.0) sec INR (<1.2) Sodium (137-145) mmol/L Potassium (3.5-5.1) mmol/L Chloride (98-107) mmol/L BUN (9-20) mg/dL Creatinine (0.66-1.25) mg/dL Glucose (74-99) mg/dL POC Glucose (mg/dL) 168 H 171 H 292 H (75-99) mg/dL Calcium (8.4-10.2) mg/dL AST (17-59) U/L ALT (4-49) U/L Alkaline Phosphatase (38-126) U/L Total Protein (6.3-8.2) g/dL Albumin (3.5-5.0) g/dL Urine Protein (Negative) Urine Glucose (UA) (Negative) Urine Blood (Negative) Ur Leukocyte Esterase (Negative) Urine RBC (0-5) /hpf Urine WBC (0-5) /hpf Urine WBC Clumps (None) /hpf Amorphous Sediment (None) /hpf Urine Bacteria (None) /hpf Urine Mucus (None) /hpf Urine Opiates Screen (NotDetected) 12/04/20 12/04/20 12/04/20 Range/Units 13:46 14:48 14:49 PT (9.0-12.0) sec INR (<1.2) Sodium 134 L (137-145) mmol/L Potassium 5.7 H (3.5-5.1) mmol/L Chloride 96 L (98-107) mmol/L BUN 66 H (9-20) mg/dL Creatinine 7.68 H* (0.66-1.25) mg/dL Glucose 170 H (74-99) mg/dL POC Glucose (mg/dL) 204 H 186 H (75-99) mg/dL Calcium 7.6 L (8.4-10.2) mg/dL AST 4316 H (17-59) U/L ALT 4373 H (4-49) U/L Alkaline Phosphatase 367 H (38-126) U/L Total Protein 6.2 L (6.3-8.2) g/dL Albumin 3.1 L (3.5-5.0) g/dL Urine Protein (Negative) Urine Glucose (UA) (Negative) Urine Blood (Negative) Ur Leukocyte Esterase (Negative) Urine RBC (0-5) /hpf Urine WBC (0-5) /hpf Urine WBC Clumps (None) /hpf Amorphous Sediment (None) /hpf Urine Bacteria (None) /hpf Urine Mucus (None) /hpf Urine Opiates Screen (NotDetected) 12/04/20 12/04/20 12/04/20 Range/Units 15:54 18:29 19:12 PT (9.0-12.0) sec INR (<1.2) Sodium (137-145) mmol/L Potassium (3.5-5.1) mmol/L Chloride (98-107) mmol/L BUN (9-20) mg/dL Creatinine (0.66-1.25) mg/dL Glucose (74-99) mg/dL POC Glucose (mg/dL) 152 H 108 H 105 H (75-99) mg/dL Calcium (8.4-10.2) mg/dL AST (17-59) U/L ALT (4-49) U/L Alkaline Phosphatase (38-126) U/L Total Protein (6.3-8.2) g/dL Albumin (3.5-5.0) g/dL Urine Protein (Negative) Urine Glucose (UA) (Negative) Urine Blood (Negative) Ur Leukocyte Esterase (Negative) Urine RBC (0-5) /hpf Urine WBC (0-5) /hpf Urine WBC Clumps (None) /hpf Amorphous Sediment (None) /hpf Urine Bacteria (None) /hpf Urine Mucus (None) /hpf Urine Opiates Screen (NotDetected) 12/04/20 12/04/20 12/04/20 Range/Units 20:59 22:01 22:02 PT (9.0-12.0) sec INR (<1.2) Sodium 132 L (137-145) mmol/L Potassium (3.5-5.1) mmol/L Chloride 96 L (98-107) mmol/L BUN 43 H (9-20) mg/dL Creatinine 4.91 H (0.66-1.25) mg/dL Glucose 142 H (74-99) mg/dL POC Glucose (mg/dL) 119 H 160 H (75-99) mg/dL Calcium 7.7 L (8.4-10.2) mg/dL AST (17-59) U/L ALT (4-49) U/L Alkaline Phosphatase 373 H (38-126) U/L Total Protein 5.8 L (6.3-8.2) g/dL Albumin 2.9 L (3.5-5.0) g/dL Urine Protein (Negative) Urine Glucose (UA) (Negative) Urine Blood (Negative) Ur Leukocyte Esterase (Negative) Urine RBC (0-5) /hpf Urine WBC (0-5) /hpf Urine WBC Clumps (None) /hpf Amorphous Sediment (None) /hpf Urine Bacteria (None) /hpf Urine Mucus (None) /hpf Urine Opiates Screen (NotDetected) 12/04/20 12/05/20 12/05/20 Range/Units 22:59 00:08 01:08 PT (9.0-12.0) sec INR (<1.2) Sodium (137-145) mmol/L Potassium (3.5-5.1) mmol/L Chloride (98-107) mmol/L BUN (9-20) mg/dL Creatinine (0.66-1.25) mg/dL Glucose (74-99) mg/dL POC Glucose (mg/dL) 191 H 217 H 251 H (75-99) mg/dL Calcium (8.4-10.2) mg/dL AST (17-59) U/L ALT (4-49) U/L Alkaline Phosphatase (38-126) U/L Total Protein (6.3-8.2) g/dL Albumin (3.5-5.0) g/dL Urine Protein (Negative) Urine Glucose (UA) (Negative) Urine Blood (Negative) Ur Leukocyte Esterase (Negative) Urine RBC (0-5) /hpf Urine WBC (0-5) /hpf Urine WBC Clumps (None) /hpf Amorphous Sediment (None) /hpf Urine Bacteria (None) /hpf Urine Mucus (None) /hpf Urine Opiates Screen (NotDetected) 12/05/20 12/05/20 12/05/20 Range/Units 02:17 03:20 04:01 PT (9.0-12.0) sec INR (<1.2) Sodium (137-145) mmol/L Potassium (3.5-5.1) mmol/L Chloride (98-107) mmol/L BUN (9-20) mg/dL Creatinine (0.66-1.25) mg/dL Glucose (74-99) mg/dL POC Glucose (mg/dL) 222 H 220 H 234 H (75-99) mg/dL Calcium (8.4-10.2) mg/dL AST (17-59) U/L ALT (4-49) U/L Alkaline Phosphatase (38-126) U/L Total Protein (6.3-8.2) g/dL Albumin (3.5-5.0) g/dL Urine Protein (Negative) Urine Glucose (UA) (Negative) Urine Blood (Negative) Ur Leukocyte Esterase (Negative) Urine RBC (0-5) /hpf Urine WBC (0-5) /hpf Urine WBC Clumps (None) /hpf Amorphous Sediment (None) /hpf Urine Bacteria (None) /hpf Urine Mucus (None) /hpf Urine Opiates Screen (NotDetected) 12/05/20 12/05/20 Range/Units 04:55 06:11 PT (9.0-12.0) sec INR (<1.2) Sodium (137-145) mmol/L Potassium (3.5-5.1) mmol/L Chloride (98-107) mmol/L BUN (9-20) mg/dL Creatinine (0.66-1.25) mg/dL Glucose (74-99) mg/dL POC Glucose (mg/dL) 219 H 219 H (75-99) mg/dL Calcium (8.4-10.2) mg/dL AST (17-59) U/L ALT (4-49) U/L Alkaline Phosphatase (38-126) U/L Total Protein (6.3-8.2) g/dL Albumin (3.5-5.0) g/dL Urine Protein (Negative) Urine Glucose (UA) (Negative) Urine Blood (Negative) Ur Leukocyte Esterase (Negative) Urine RBC (0-5) /hpf Urine WBC (0-5) /hpf Urine WBC Clumps (None) /hpf Amorphous Sediment (None) /hpf Urine Bacteria (None) /hpf Urine Mucus (None) /hpf Urine Opiates Screen (NotDetected) Microbiology - Last 24 Hours (Table) 12/04/20 10:26 Gram Stain - Preliminary Pericardial Fluid Body Fluid Culture - Preliminary 12/03/20 14:10 Blood Culture - Preliminary Blood No Growth after 24 hours 12/03/20 14:00 Blood Culture - Preliminary Blood No Growth after 24 hours Assessment and Plan Plan: 1 large pericardial effusion with secondary hypotension, shock and the patient was on pressors. Pericardial window was done and hemodynamics improved following that. The pericardial tube is still in place. The patient is currently off pressors. Clinically much improved. Awaiting fluid cytology.. 2 shortness of breath, no significant oxygen desaturation the patient is currently on 2 L by nasal cannula with a pulse ox of above 90% and the patient's chest x-ray still showing any acute abnormalities. The shortness of breath is improved. 3 end-stage renal disease on hemodialysis 3 times a week, last hemodialysis was yesterday 4 coronary artery disease with recent inferior wall myocardial infarction requiring angioplasty of the RCA. Cardiac stress is that was done on 11/27/2020 showed subtle dyskinesia of the mid anterior wall. Otherwise ejection fraction was within normal and there was no evidence of any reversible ischemia, and echocardiogram that was done on 11/25/2020 showed a preserved LV function with an ejection fraction of 60-65%, maintained on a combination of aspirin and Plavix in addition to high-dose statins and Coreg 6.25 mg twice a day.. Mother the patient has a previous history of coronary stent insertion and he was taking aspirin and Plavix on outpatient basis, quit the antiplatelet agents because of cost 5 history of hypertension 6 hyperlipidemia 7 diabetes mellitus with significant hyperglycemia the time of admission with a component of mild anion gap metabolic acidosis , the DKA improved and the patient gap is closed and the patient is on 2.5 units an hour of insulin. This will be switched to 8 hyperkalemia, potassium level improved 9 lactic acidosis, improved 10 abnormal LFTs, consider shock liver, and contrary to above in the follow-up levels are still pending for now. 11 diabetic peripheral neuropathy and retinopathy 12 hypothyroidism 13 morbid obesity with a BMI of 48 14 history of prostate cancer 15 anemia of chronic disease, hemoglobin is stable at 8.2 16 gout 17 obstructive sleep apnea and the patient remains in a CPAP therapy Plan stop Vancomycin Stop Zosyn Management of the pericardial tube the cardiothoracic team We'll discontinue the insulin drip. The patient is tolerating diet. I'm going to give this patient at the lower dose of Levemir which will be 40 units daily and we'll proceed with 30 units with meals of short acting and the patient will be also given a sliding scale coverage. Insulin drip can be discontinued. Accu-Cheks every hour Hold Coreg , aspirin and Plavix, till get a clearance from the cardiothoracic team we'll keep the patient ICU for further monitoring. Nephrology consultation, dialysis was done yesterday We'll follow his condition. More stable compared to yesterday..
[2020-12-05] MEDS: HYDROcodone/APAP 10-325MG 1 EACH TAB PO PRN ×3 (08:13→21:12)
[2020-12-05] MEDS: MAGNESIUM OXIDE 400 MG TAB PO SCH ×3 (08:25→21:13)
[2020-12-05] MEDS: INSULIN REGULAR 100 UNIT in SODIUM CHLORIDE 0.9% 100 ML IV SCH (08:26)
[2020-12-05] MEDS ORDERED: INSULIN DETEMIR (LEVEMIR) 100 UNIT/ML SYR SQ SCH (09:00)
--- NOTE | 2020-12-05 09:14 | P.PN ---
Subjective Progress Note Date: 12/05/20 Principal diagnosis: Large pericardial effusion, hypotension on admission requiring vasopressor use, hyperglycemia on admission with mild anion gap metabolic acidosis, lactic acido sis, elevated liver function. Previous medical history of coronary artery disease with myocardial infarction and recent stent placement, hypertension, heart failure, diabetes, CVA, end-stage renal disease on dialysis, obstructive sleep apnea with CPAP use, hypothyroidism, morbid obesity POD #1 pericardial window with removal of 1 L bloody fluid removed The patient's sitting up in bed in no acute distress. Does complain of some pain at his chest tube site, denies shortness of breath, in fact he states his breathing has significantly improved since pericardial window completed yesterday. Remains in normal sinus rhythm and hemodynamically stable off all pressors since surgery. Mediastinal chest tube present to [facility], 65 mL thin serosanguineous output in the last 12 hours. No other new concerns Objective - Vital Signs Vital signs: Vital Signs Temp 98.2 F 12/05/20 04:00 Pulse 74 12/05/20 08:00 Resp 16 12/05/20 08:00 BP 115/50 12/05/20 08:00 Pulse Ox 95 12/05/20 08:00 Intake & Output 12/04/20 12/05/20 12/05/20 18:59 06:59 18:59 Intake Total 2257.000 400 151 Output Total 450 1547 Balance 1807.000 -1147 151 Weight 161.4 kg Intake: IV 1400 400 50 Dextrose 5%-0.9% NaCl 1, 550 400 50 000 ml @ 50 mls/hr IV . Q20H [facility] Rx#:[id number] Piperacillin-Tazobactam 3 100 .375 gm In Sodium Chloride 0.9% 100 ml @ 25 mls/hr IVPB Q12HR [facility] Rx #:[id number] Vancomycin 2,250 mg In 500 Sodium Chloride 0.9% 500 ml 500 ml @ 167 mls/hr IVPB ONCE@1300 ONE Rx#: [id number] Intake, IV Titration 617.000 101 Amount Insulin Regular 100 unit 101 101 In Sodium Chloride 0.9% 100 ml @ 0.1 UNITS/KG/HR 15.989 mls/hr IV .Q6H20M [facility] Rx#:[id number] Norepinephrine 8 mg In 516.000 Sodium Chloride 0.9% 250 ml @ 0.05 MCG/KG/MIN 15. 316 mls/hr IV .[id number] [facility] Rx#:[id number] Oral 240 Output: Chest Tube Drainage 180 12 Mediastinal 180 12 Urine 260 35 Hemodialysis 1500 Estimated Blood Loss 10 ABP, PAP, CO, CI - Last Documented Arterial Blood Pressure 116/57 - Exam CONSTITUTIONAL: Appears comfortable, cooperative, no acute distress RESPIRATORY: Lungs sounds diminished bilaterally. Respirations even, nonlabored. Currently on 4 L nasal cannula with oxygen saturation 95%. Strong cough. CARDIOVASCULAR: S1, S2 present. Regular rate and rhythm, sinus rhythm on telemetry. Palpable peripheral pulses bilaterally. No edema present. No calf pain or tenderness noted. GASTROINTESTINAL: Abdomen soft, nontender, nondistended, morbidly obese. Active bowel sounds present 4 quadrants. Tolerating diet. GENITOURINARY: No urine output documented. Left AV shunt present. INTEGUMENTARY: Skin is warm and dry with evidence of good perfusion. NEUROLOGIC: Cranial nerves II through XII intact MUSKULOSKELETAL: Able to move all extremities, strength equal bilaterally, gait normal PSYCHIATRIC: Alert and oriented to person place and time, appropriate affect, intact judgment and insight INVASIVE LINES AND TUBES: Mediastinal chest tube present to waterseal, 65 mL thin serosanguineous drainage in the last 12 hours. - Labs CBC & Chem 7: 12/04/20 04:10 12/04/20 22:02 Labs: Abnormal Lab Results - Last 24 Hours (Table) 12/04/20 12/04/20 12/04/20 Range/Units 09:09 11:01 11:40 Sodium (137-145) mmol/L Potassium (3.5-5.1) mmol/L Chloride (98-107) mmol/L BUN (9-20) mg/dL Creatinine (0.66-1.25) mg/dL Glucose (74-99) mg/dL POC Glucose (mg/dL) 188 H 168 H 171 H (75-99) mg/dL Calcium (8.4-10.2) mg/dL AST (17-59) U/L ALT (4-49) U/L Alkaline Phosphatase (38-126) U/L Total Protein (6.3-8.2) g/dL Albumin (3.5-5.0) g/dL 12/04/20 12/04/20 12/04/20 Range/Units 13:04 13:46 14:48 Sodium 134 L (137-145) mmol/L Potassium 5.7 H (3.5-5.1) mmol/L Chloride 96 L (98-107) mmol/L BUN 66 H (9-20) mg/dL Creatinine 7.68 H* (0.66-1.25) mg/dL Glucose 170 H (74-99) mg/dL POC Glucose (mg/dL) 292 H 204 H (75-99) mg/dL Calcium 7.6 L (8.4-10.2) mg/dL AST 4316 H (17-59) U/L ALT 4373 H (4-49) U/L Alkaline Phosphatase 367 H (38-126) U/L Total Protein 6.2 L (6.3-8.2) g/dL Albumin 3.1 L (3.5-5.0) g/dL 12/04/20 12/04/20 12/04/20 Range/Units 14:49 15:54 18:29 Sodium (137-145) mmol/L Potassium (3.5-5.1) mmol/L Chloride (98-107) mmol/L BUN (9-20) mg/dL Creatinine (0.66-1.25) mg/dL Glucose (74-99) mg/dL POC Glucose (mg/dL) 186 H 152 H 108 H (75-99) mg/dL Calcium (8.4-10.2) mg/dL AST (17-59) U/L ALT (4-49) U/L Alkaline Phosphatase (38-126) U/L Total Protein (6.3-8.2) g/dL Albumin (3.5-5.0) g/dL 12/04/20 12/04/20 12/04/20 Range/Units 19:12 20:59 22:01 Sodium (137-145) mmol/L Potassium (3.5-5.1) mmol/L Chloride (98-107) mmol/L BUN (9-20) mg/dL Creatinine (0.66-1.25) mg/dL Glucose (74-99) mg/dL POC Glucose (mg/dL) 105 H 119 H 160 H (75-99) mg/dL Calcium (8.4-10.2) mg/dL AST (17-59) U/L ALT (4-49) U/L Alkaline Phosphatase (38-126) U/L Total Protein (6.3-8.2) g/dL Albumin (3.5-5.0) g/dL 12/04/20 12/04/20 12/05/20 Range/Units 22:02 22:59 00:08 Sodium 132 L (137-145) mmol/L Potassium (3.5-5.1) mmol/L Chloride 96 L (98-107) mmol/L BUN 43 H (9-20) mg/dL Creatinine 4.91 H (0.66-1.25) mg/dL Glucose 142 H (74-99) mg/dL POC Glucose (mg/dL) 191 H 217 H (75-99) mg/dL Calcium 7.7 L (8.4-10.2) mg/dL AST 3252 H (17-59) U/L ALT 3517 H (4-49) U/L Alkaline Phosphatase 373 H (38-126) U/L Total Protein 5.8 L (6.3-8.2) g/dL Albumin 2.9 L (3.5-5.0) g/dL 12/05/20 12/05/20 12/05/20 Range/Units 01:08 02:17 03:20 Sodium (137-145) mmol/L Potassium (3.5-5.1) mmol/L Chloride (98-107) mmol/L BUN (9-20) mg/dL Creatinine (0.66-1.25) mg/dL Glucose (74-99) mg/dL POC Glucose (mg/dL) 251 H 222 H 220 H (75-99) mg/dL Calcium (8.4-10.2) mg/dL AST (17-59) U/L ALT (4-49) U/L Alkaline Phosphatase (38-126) U/L Total Protein (6.3-8.2) g/dL Albumin (3.5-5.0) g/dL 12/05/20 12/05/20 12/05/20 Range/Units 04:01 04:55 06:11 Sodium (137-145) mmol/L Potassium (3.5-5.1) mmol/L Chloride (98-107) mmol/L BUN (9-20) mg/dL Creatinine (0.66-1.25) mg/dL Glucose (74-99) mg/dL POC Glucose (mg/dL) 234 H 219 H 219 H (75-99) mg/dL Calcium (8.4-10.2) mg/dL AST (17-59) U/L ALT (4-49) U/L Alkaline Phosphatase (38-126) U/L Total Protein (6.3-8.2) g/dL Albumin (3.5-5.0) g/dL 12/05/20 Range/Units 06:58 Sodium (137-145) mmol/L Potassium (3.5-5.1) mmol/L Chloride (98-107) mmol/L BUN (9-20) mg/dL Creatinine (0.66-1.25) mg/dL Glucose (74-99) mg/dL POC Glucose (mg/dL) 234 H (75-99) mg/dL Calcium (8.4-10.2) mg/dL AST (17-59) U/L ALT (4-49) U/L Alkaline Phosphatase (38-126) U/L Total Protein (6.3-8.2) g/dL Albumin (3.5-5.0) g/dL Microbiology - Last 24 Hours (Table) 12/04/20 10:26 Gram Stain - Preliminary Pericardial Fluid Body Fluid Culture - Preliminary 12/03/20 14:10 Blood Culture - Preliminary Blood No Growth after 24 hours 12/03/20 14:00 Blood Culture - Preliminary Blood No Growth after 24 hours Assessment and Plan Assessment: 1. Large pericardial effusion, increased in size from previous echo approximately 2 weeks ago 2. Hypotension requiring increasing vasopressor use 3. Hyperglycemia on admission with mild anion gap metabolic acidosis 4. Lactic acidosis 5. Elevated liver function 6. Coronary artery disease with myocardial infarction and recent stent placement 7. History of hypertension, currently hypotensive 8. History of heart failure 9. Diabetes 10. History of CVA 11. End-stage renal disease on dialysis 12. Obstructive sleep apnea with CPAP use 13. Hypothyroidism 14. morbid obesity Plan: 1. Continue mediastinal chest tube to waterseal for another 24 hours to monitor output 2. Increase activity, ambulate as tolerated 3. Wean O2 as tolerated 4. May transfer out of ICU from cardiothoracic standpoint 5. Medical management with the comorbidities per primary care, supervisor anodizing management 6. More recommendations to follow Time with Patient: Greater than 30
[2020-12-05 10:17] VITALS: BMI 49.6
[2020-12-05] MEDS: ASPIRIN 81 MG PO SCH (11:06)
[2020-12-05] MEDS: CLOPIDOGREL 75 MG TAB PO SCH (11:06)
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
[2020-12-05 11:53] LABS: Glucose,Whole Blood 332 mg/dL (75-99)
[2020-12-05] MEDS: INSULIN ASPART (NovoLOG) 100 UNIT/ML VIAL SQ SCH ×5 (11:58→21:04)
[2020-12-05 12:18] LABS: Albumin 2.9 g/dL (3.5-5.0); Calcium 7.7 mg/dL (8.4-10.2); Potassium 5.1 mmol/L (3.5-5.1); Total Bilirubin 0.5 mg/dL (0.2-1.3); Total Protein 5.8 g/dL (6.3-8.2)
[2020-12-05 12:22] LABS: Anisocytosis Slight; Basophils # (A) 0.1 k/uL (0-0.2); Basophils % (A) 1 %; Eosinophils # (A) 0.3 k/uL (0-0.7); Eosinophils % (A) 3 %; HCT 25.6 % (39.0-53.0); HGB 8.2 gm/dL (13.0-17.5); Lymphocytes # (A) 0.6 k/uL (1.0-4.8); Lymphocytes % (A) 5 %; Macrocytosis Slight; Mean Platelet Volume 7.1; Monocytes # (A) 0.4 k/uL (0-1.0); Monocytes % (A) 3 %; Neutrophils # (A) 9.1 k/uL (1.3-7.7); Neutrophils % (A) 87 %; Platelet Count 263 k/uL (150-450); RBC 2.64 m/uL (4.30-5.90); RDW 16.3 % (11.5-15.5); WBC 10.4 k/uL (3.8-10.6)
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
--- NOTE | 2020-12-05 12:36 | P.PN ---
Subjective Progress Note Date: 12/05/20 HISTORY OF PRESENT ILLNESS: 12/04/2020 This is a 60-year-old male with a past medical history significant for chronic kidney disease on hemodialysis, hypertension, hyperlipidemia, TIA, and coronary artery disease with recent PCI to the RCA on 10/21/2020. Patient follows in the office with Dr. Liz. We have been asked to see the patient in consultation for pericardial effusion. Patient originally presented to the hospital with a chief complaint of shortness of breath. Patient was initially hypotensive upon arrival. He was admitted to the intensive care unit. He requi red multiple fluid boluses and high-dose vasopressor support. Patient had an echocardiogram completed this morning revealing large pericardial effusion. Patient is status post pericardial window by Dr. Ahuja this morning with removal of 1 L of bloody pericardial fluid. Patient examined postoperatively at the bedside in the intensive care unit. Patient states his breathing is significantly improved. He denies chest pain or pressure. He remains off vasopressor support. EKG reveals sinus mechanism. Heart rate 98. Chest xray cardiomegaly. Lungs are clear. Pulmonary vasculature is normal. Laboratory data: WBC 17.7. Hemoglobin 8.2. Platelet count 330. Sodium 131. Potassium 6.0. BUN 64. Creatinine 7.16. AST 5262. ALT 4475. Troponin negative 2. Current home cardiac medications include lisinopril 5 mg twice a day, Demadex 40 mg daily, Plavix 35 mg daily, Coreg 6.25 mg daily, Lipitor 40mg daily, aspirin 81 mg daily Most recent echocardiogram obtained today reveals large pericardial effusion. Previous echocardiogram performed on 11/26/2019 revealed small pericardial effusion. Cardiac catheterization history: 10/21/2020 with PCI to the RCA Patient underwent Lexiscan stress test on 11/27/2020 which was negative for reversible ischemia. 12/05/2020 Patient is status post pericardial window. Postop day #1. Patient examined in the intensive care unit. Patient is sitting up in the chair. He remains hemodynamically stable. Chest tube present to [facility]. He denies chest pain or pressure. Denies shortness of breath. Patient underwent hemodialysis yesterday and states he is scheduled to receive dialysis again today. Telemetry reveals sinus mechanism. PHYSICAL EXAM: VITAL SIGNS: Reviewed. GENERAL: Well-developed in no acute distress. HEENT: Head is normocephalic. Pupils are equal, round. Sclerae anicteric. Mucous membranes of the mouth are moist. Neck supple. No JVD or thyromegaly LUNGS: Respirations even and unlabored. Lungs diminished bilaterally. HEART: Regular rate and rhythm. S1 and S2 heard. Chest tube noted. Dressing clean dry and intact. ABDOMEN: Soft. Nondistended. Nontender. EXTREMITIES: Normal range of motion. No clubbing or cyanosis. Peripheral pulses intact. No lower extremity edema NEUROLOGIC: Awake and alert. Oriented x 3. ASSESSMENT: Large pericardial effusion, status post pericardial window Coronary artery disease with recent PCI to RCA, October 2020 End-stage renal disease on hemodialysis Transaminitis Hypotension requiring vasopressor support, resolved Hypertension Hyperlipidemia TIA Diabetes mellitus Hyperkalemia PLAN: Continue postoperative management per CTS Nephrology following for ESRD Hold statin due to transaminitis Continue aspirin and Plavix Hold antihypertensive medications Obtain limited 2D echo Further recommendations pending patient course Nurse practitioner note has been reviewed by physician. Signing provider agrees with the documented findings, assessment, and plan of care. Objective - Vital Signs Vital signs: Vital Signs Temp 98.2 F 12/05/20 04:00 Pulse 74 12/05/20 08:00 Resp 16 12/05/20 08:00 BP 115/50 12/05/20 08:00 Pulse Ox 95 12/05/20 08:00 Intake & Output 12/04/20 12/05/20 12/05/20 18:59 06:59 18:59 Intake Total 2257.000 400 151 Output Total 450 1547 Balance 1807.000 -1147 151 Weight 161.4 kg 161.4 kg Intake: IV 1400 400 50 Dextrose 5%-0.9% NaCl 1, 550 400 50 000 ml @ 50 mls/hr IV . Q20H [facility] Rx#:[id number] Piperacillin-Tazobactam 3 100 .375 gm In Sodium Chloride 0.9% 100 ml @ 25 mls/hr IVPB Q12HR [facility] Rx #:[id number] Vancomycin 2,250 mg In 500 Sodium Chloride 0.9% 500 ml 500 ml @ 167 mls/hr IVPB ONCE@1300 ONE Rx#: [id number] Intake, IV Titration 617.000 101 Amount Insulin Regular 100 unit 101 101 In Sodium Chloride 0.9% 100 ml @ 0.1 UNITS/KG/HR 15.989 mls/hr IV .Q6H20M [facility] Rx#:[id number] Norepinephrine 8 mg In 516.000 Sodium Chloride 0.9% 250 ml @ 0.05 MCG/KG/MIN 15. 316 mls/hr IV .[id number] [facility] Rx#:[id number] Oral 240 Output: Chest Tube Drainage 180 12 Mediastinal 180 12 Urine 260 35 Hemodialysis 1500 Estimated Blood Loss 10 ABP, PAP, CO, CI - Last Documented Arterial Blood Pressure 116/57 - Labs CBC & Chem 7: 12/05/20 11:00 12/04/20 22:02 Labs: Abnormal Lab Results - Last 24 Hours (Table) 12/04/20 12/04/20 12/04/20 Range/Units 13:04 13:46 14:48 RBC (4.30-5.90) m/uL Hgb (13.0-17.5) gm/dL Hct (39.0-53.0) % RDW (11.5-15.5) % Neutrophils # (1.3-7.7) k/uL Lymphocytes # (1.0-4.8) k/uL Sodium 134 L (137-145) mmol/L Potassium 5.7 H (3.5-5.1) mmol/L Chloride 96 L (98-107) mmol/L BUN 66 H (9-20) mg/dL Creatinine 7.68 H* (0.66-1.25) mg/dL Glucose 170 H (74-99) mg/dL POC Glucose (mg/dL) 292 H 204 H (75-99) mg/dL Calcium 7.6 L (8.4-10.2) mg/dL AST 4316 H (17-59) U/L ALT 4373 H (4-49) U/L Alkaline Phosphatase 367 H (38-126) U/L Total Protein 6.2 L (6.3-8.2) g/dL Albumin 3.1 L (3.5-5.0) g/dL 12/04/20 12/04/20 12/04/20 Range/Units 14:49 15:54 18:29 RBC (4.30-5.90) m/uL Hgb (13.0-17.5) gm/dL Hct (39.0-53.0) % RDW (11.5-15.5) % Neutrophils # (1.3-7.7) k/uL Lymphocytes # (1.0-4.8) k/uL Sodium (137-145) mmol/L Potassium (3.5-5.1) mmol/L Chloride (98-107) mmol/L BUN (9-20) mg/dL Creatinine (0.66-1.25) mg/dL Glucose (74-99) mg/dL POC Glucose (mg/dL) 186 H 152 H 108 H (75-99) mg/dL Calcium (8.4-10.2) mg/dL AST (17-59) U/L ALT (4-49) U/L Alkaline Phosphatase (38-126) U/L Total Protein (6.3-8.2) g/dL Albumin (3.5-5.0) g/dL 12/04/20 12/04/20 12/04/20 Range/Units 19:12 20:59 22:01 RBC (4.30-5.90) m/uL Hgb (13.0-17.5) gm/dL Hct (39.0-53.0) % RDW (11.5-15.5) % Neutrophils # (1.3-7.7) k/uL Lymphocytes # (1.0-4.8) k/uL Sodium (137-145) mmol/L Potassium (3.5-5.1) mmol/L Chloride (98-107) mmol/L BUN (9-20) mg/dL Creatinine (0.66-1.25) mg/dL Glucose (74-99) mg/dL POC Glucose (mg/dL) 105 H 119 H 160 H (75-99) mg/dL Calcium (8.4-10.2) mg/dL AST (17-59) U/L ALT (4-49) U/L Alkaline Phosphatase (38-126) U/L Total Protein (6.3-8.2) g/dL Albumin (3.5-5.0) g/dL 12/04/20 12/04/20 12/05/20 Range/Units 22:02 22:59 00:08 RBC (4.30-5.90) m/uL Hgb (13.0-17.5) gm/dL Hct (39.0-53.0) % RDW (11.5-15.5) % Neutrophils # (1.3-7.7) k/uL Lymphocytes # (1.0-4.8) k/uL Sodium 132 L (137-145) mmol/L Potassium (3.5-5.1) mmol/L Chloride 96 L (98-107) mmol/L BUN 43 H (9-20) mg/dL Creatinine 4.91 H (0.66-1.25) mg/dL Glucose 142 H (74-99) mg/dL POC Glucose (mg/dL) 191 H 217 H (75-99) mg/dL Calcium 7.7 L (8.4-10.2) mg/dL AST 3252 H (17-59) U/L ALT 3517 H (4-49) U/L Alkaline Phosphatase 373 H (38-126) U/L Total Protein 5.8 L (6.3-8.2) g/dL Albumin 2.9 L (3.5-5.0) g/dL 12/05/20 12/05/20 12/05/20 Range/Units 01:08 02:17 03:20 RBC (4.30-5.90) m/uL Hgb (13.0-17.5) gm/dL Hct (39.0-53.0) % RDW (11.5-15.5) % Neutrophils # (1.3-7.7) k/uL Lymphocytes # (1.0-4.8) k/uL Sodium (137-145) mmol/L Potassium (3.5-5.1) mmol/L Chloride (98-107) mmol/L BUN (9-20) mg/dL Creatinine (0.66-1.25) mg/dL Glucose (74-99) mg/dL POC Glucose (mg/dL) 251 H 222 H 220 H (75-99) mg/dL Calcium (8.4-10.2) mg/dL AST (17-59) U/L ALT (4-49) U/L Alkaline Phosphatase (38-126) U/L Total Protein (6.3-8.2) g/dL Albumin (3.5-5.0) g/dL 12/05/20 12/05/20 12/05/20 Range/Units 04:01 04:55 06:11 RBC (4.30-5.90) m/uL Hgb (13.0-17.5) gm/dL Hct (39.0-53.0) % RDW (11.5-15.5) % Neutrophils # (1.3-7.7) k/uL Lymphocytes # (1.0-4.8) k/uL Sodium (137-145) mmol/L Potassium (3.5-5.1) mmol/L Chloride (98-107) mmol/L BUN (9-20) mg/dL Creatinine (0.66-1.25) mg/dL Glucose (74-99) mg/dL POC Glucose (mg/dL) 234 H 219 H 219 H (75-99) mg/dL Calcium (8.4-10.2) mg/dL AST (17-59) U/L ALT (4-49) U/L Alkaline Phosphatase (38-126) U/L Total Protein (6.3-8.2) g/dL Albumin (3.5-5.0) g/dL 12/05/20 12/05/20 12/05/20 Range/Units 06:58 11:00 11:51 RBC 2.64 L (4.30-5.90) m/uL Hgb 8.2 L (13.0-17.5) gm/dL Hct 25.6 L (39.0-53.0) % RDW 16.3 H (11.5-15.5) % Neutrophils # 9.1 H (1.3-7.7) k/uL Lymphocytes # 0.6 L (1.0-4.8) k/uL Sodium (137-145) mmol/L Potassium (3.5-5.1) mmol/L Chloride (98-107) mmol/L BUN (9-20) mg/dL Creatinine (0.66-1.25) mg/dL Glucose (74-99) mg/dL POC Glucose (mg/dL) 234 H 332 H (75-99) mg/dL Calcium (8.4-10.2) mg/dL AST (17-59) U/L ALT (4-49) U/L Alkaline Phosphatase (38-126) U/L Total Protein (6.3-8.2) g/dL Albumin (3.5-5.0) g/dL Microbiology - Last 24 Hours (Table) 12/04/20 10:26 Gram Stain - Preliminary Pericardial Fluid Body Fluid Culture - Preliminary 12/03/20 14:10 Blood Culture - Preliminary Blood No Growth after 24 hours 12/03/20 14:00 Blood Culture - Preliminary Blood No Growth after 24 hours
[2020-12-05 12:40] LABS: Hepatitis B Surface AB- Quant 13.7 mIU/mL; Hepatitis B Surface Antibody Reactive (Non-Reactive); Hepatitis B Surface Antigen Non-Reactive (Non-Reactive)
--- NOTE | 2020-12-05 12:46 | P.PN ---
Subjective Progress Note Date: 12/05/20 Principal diagnosis: Acute hepatitis, elevated LFTs The patient is seen and examined lying in bed in the ICU. He is status post pericardial window yesterday pericardial effusion. He also was admitted with diabetic ketoacidosis. In no acute changes through the night. Blood pressure has improved. He states he is feeling well this morning. He denies any nausea, vomiting, or abdominal pain. He is tolerating regular diet. Liver enzymes are trending down. Objective - Vital Signs Vital signs: Vital Signs Temp 98.2 F 12/05/20 04:00 Pulse 74 12/05/20 08:00 Resp 16 12/05/20 08:00 BP 115/50 12/05/20 08:00 Pulse Ox 95 12/05/20 08:00 Intake & Output 12/04/20 12/05/20 12/05/20 18:59 06:59 18:59 Intake Total 2257.000 400 151 Output Total 450 1547 Balance 1807.000 -1147 151 Weight 161.4 kg Intake: IV 1400 400 50 Dextrose 5%-0.9% NaCl 1, 550 400 50 000 ml @ 50 mls/hr IV . Q20H [facility] Rx#:[id number] Piperacillin-Tazobactam 3 100 .375 gm In Sodium Chloride 0.9% 100 ml @ 25 mls/hr IVPB Q12HR [facility] Rx #:[id number] Vancomycin 2,250 mg In 500 Sodium Chloride 0.9% 500 ml 500 ml @ 167 mls/hr IVPB ONCE@1300 [facility] Rx#: [id number] Intake, IV Titration 617.000 101 Amount Insulin Regular 100 unit 101 101 In Sodium Chloride 0.9% 100 ml @ 0.1 UNITS/KG/HR 15.989 mls/hr IV .Q6H20M [facility] Rx#:[id number] Norepinephrine 8 mg In 516.000 Sodium Chloride 0.9% 250 ml @ 0.05 MCG/KG/MIN 15. 316 mls/hr IV .[id number] [facility] Rx#:[id number] Oral 240 Output: Chest Tube Drainage 180 12 Mediastinal 180 12 Urine 260 35 Hemodialysis 1500 Estimated Blood Loss 10 ABP, PAP, CO, CI - Last Documented Arterial Blood Pressure 116/57 - Exam General appearance: The patient is alert, oriented, appears in no acute distress. Morbidly obese HET: Head is normocephalic and atraumatic. Conjunctiva pink. Sclera anicteric. Neck: Supple without lymphadenopathy. Abdomen: Soft, morbidly obese, nontender, nondistended with bowel sounds. No guarding or rigidity. Extremities: Normal skin color and turgor. No pedal edema Skin: No rashes, no jaundice Neurological: No focal deficits. Alert and oriented 3. - Labs CBC & Chem 7: 12/05/20 11:00 12/05/20 11:00 Labs: Abnormal Lab Results - Last 24 Hours (Table) 12/04/20 12/04/20 12/04/20 Range/Units 09:09 11:01 11:40 Sodium (137-145) mmol/L Potassium (3.5-5.1) mmol/L Chloride (98-107) mmol/L BUN (9-20) mg/dL Creatinine (0.66-1.25) mg/dL Glucose (74-99) mg/dL POC Glucose (mg/dL) 188 H 168 H 171 H (75-99) mg/dL Calcium (8.4-10.2) mg/dL AST (17-59) U/L ALT (4-49) U/L Alkaline Phosphatase (38-126) U/L Total Protein (6.3-8.2) g/dL Albumin (3.5-5.0) g/dL 12/04/20 12/04/20 12/04/20 Range/Units 13:04 13:46 14:48 Sodium 134 L (137-145) mmol/L Potassium 5.7 H (3.5-5.1) mmol/L Chloride 96 L (98-107) mmol/L BUN 66 H (9-20) mg/dL Creatinine 7.68 H* (0.66-1.25) mg/dL Glucose 170 H (74-99) mg/dL POC Glucose (mg/dL) 292 H 204 H (75-99) mg/dL Calcium 7.6 L (8.4-10.2) mg/dL AST 4316 H (17-59) U/L ALT 4373 H (4-49) U/L Alkaline Phosphatase 367 H (38-126) U/L Total Protein 6.2 L (6.3-8.2) g/dL Albumin 3.1 L (3.5-5.0) g/dL 12/04/20 12/04/20 12/04/20 Range/Units 14:49 15:54 18:29 Sodium (137-145) mmol/L Potassium (3.5-5.1) mmol/L Chloride (98-107) mmol/L BUN (9-20) mg/dL Creatinine (0.66-1.25) mg/dL Glucose (74-99) mg/dL POC Glucose (mg/dL) 186 H 152 H 108 H (75-99) mg/dL Calcium (8.4-10.2) mg/dL AST (17-59) U/L ALT (4-49) U/L Alkaline Phosphatase (38-126) U/L Total Protein (6.3-8.2) g/dL Albumin (3.5-5.0) g/dL 12/04/20 12/04/20 12/04/20 Range/Units 19:12 20:59 22:01 Sodium (137-145) mmol/L Potassium (3.5-5.1) mmol/L Chloride (98-107) mmol/L BUN (9-20) mg/dL Creatinine (0.66-1.25) mg/dL Glucose (74-99) mg/dL POC Glucose (mg/dL) 105 H 119 H 160 H (75-99) mg/dL Calcium (8.4-10.2) mg/dL AST (17-59) U/L ALT (4-49) U/L Alkaline Phosphatase (38-126) U/L Total Protein (6.3-8.2) g/dL Albumin (3.5-5.0) g/dL 12/04/20 12/04/20 12/05/20 Range/Units 22:02 22:59 00:08 Sodium 132 L (137-145) mmol/L Potassium (3.5-5.1) mmol/L Chloride 96 L (98-107) mmol/L BUN 43 H (9-20) mg/dL Creatinine 4.91 H (0.66-1.25) mg/dL Glucose 142 H (74-99) mg/dL POC Glucose (mg/dL) 191 H 217 H (75-99) mg/dL Calcium 7.7 L (8.4-10.2) mg/dL AST 3252 H (17-59) U/L ALT 3517 H (4-49) U/L Alkaline Phosphatase 373 H (38-126) U/L Total Protein 5.8 L (6.3-8.2) g/dL Albumin 2.9 L (3.5-5.0) g/dL 12/05/20 12/05/20 12/05/20 Range/Units 01:08 02:17 03:20 Sodium (137-145) mmol/L Potassium (3.5-5.1) mmol/L Chloride (98-107) mmol/L BUN (9-20) mg/dL Creatinine (0.66-1.25) mg/dL Glucose (74-99) mg/dL POC Glucose (mg/dL) 251 H 222 H 220 H (75-99) mg/dL Calcium (8.4-10.2) mg/dL AST (17-59) U/L ALT (4-49) U/L Alkaline Phosphatase (38-126) U/L Total Protein (6.3-8.2) g/dL Albumin (3.5-5.0) g/dL 12/05/20 12/05/20 12/05/20 Range/Units 04:01 04:55 06:11 Sodium (137-145) mmol/L Potassium (3.5-5.1) mmol/L Chloride (98-107) mmol/L BUN (9-20) mg/dL Creatinine (0.66-1.25) mg/dL Glucose (74-99) mg/dL POC Glucose (mg/dL) 234 H 219 H 219 H (75-99) mg/dL Calcium (8.4-10.2) mg/dL AST (17-59) U/L ALT (4-49) U/L Alkaline Phosphatase (38-126) U/L Total Protein (6.3-8.2) g/dL Albumin (3.5-5.0) g/dL 12/05/20 Range/Units 06:58 Sodium (137-145) mmol/L Potassium (3.5-5.1) mmol/L Chloride (98-107) mmol/L BUN (9-20) mg/dL Creatinine (0.66-1.25) mg/dL Glucose (74-99) mg/dL POC Glucose (mg/dL) 234 H (75-99) mg/dL Calcium (8.4-10.2) mg/dL AST (17-59) U/L ALT (4-49) U/L Alkaline Phosphatase (38-126) U/L Total Protein (6.3-8.2) g/dL Albumin (3.5-5.0) g/dL Microbiology - Last 24 Hours (Table) 12/04/20 10:26 Gram Stain - Preliminary Pericardial Fluid Body Fluid Culture - Preliminary 12/03/20 14:10 Blood Culture - Preliminary Blood No Growth after 24 hours 12/03/20 14:00 Blood Culture - Preliminary Blood No Growth after 24 hours Assessment and Plan (1) Elevated liver enzymes Narrative/Plan: This is a 60-year-old male with multiple medical comorbidities who presented to the hospital with complaints of shortness of breath and was found to be hyperglycemic for which he is receiving treatment as well as being found to have developed a pericardial effusion for which he is status post pericardial window. The patient did experience episodes of hypotension was found to have a markedly elevated LFT profile predominantly in a hepatocellular pattern with a normal total bilirubin of 1.0, alkaline phosphatase was found to be 403 and AST and ALT were found to be markedly elevated at 5262 and 4475 respectively. Denies any prior history of elevated liver enzymes, but suspicion is for some degree of underlying liver disease in the setting of metabolic syndrome. He denies any viral hepatitis. Suspicion is for elevation in liver enzymes secondary to ischemic hepatitis, plan is for viral hepatitis profile to rule out viral infection, differential also includes medication effect. Current Visit: Yes Status: Acute Code(s): R74.8 - ABNORMAL LEVELS OF OTHER SERUM ENZYMES SNOMED Code(s): 331356383 (2) History of bariatric surgery Current Visit: Yes Status: Acute Code(s): Z98.84 - BARIATRIC SURGERY STATUS SNOMED Code(s): 669318086 Plan: supportive care Okay for diet as tolerated Continue other medical management as per ICU Avoid hepatotoxic medications Continue to monitor CBC, BMP, LFTs Acute viral hepatitis panel ordered, negative Ultrasound of the abdomen ordered and reviewed Suspicion is that liver enzymes will improve moving forward, However if his AST and ALT remained elevated full liver serology will be ordered to rule out intrinsic liver disease Thank you for the consultation, we will continue to follow Dr. Gonzáles I agree with the dictator's note, documented as a scribe by Jennifer Wilson.
[2020-12-05] MEDS ORDERED: INSULIN DETEMIR (LEVEMIR) 100 UNIT/ML SYR SQ ONE (13:15)
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
[2020-12-05 14:18] LABS: Glucose,Whole Blood 307 mg/dL (75-99)
[2020-12-05] MEDS: NOREPINEPHRINE 8 MG in SODIUM CHLORIDE 0.9% 250 ML IV SCH (14:19)
[2020-12-05 14:27] LABS: Magnesium 2.8 mg/dL (1.6-2.3); Phosphorus 6.2 mg/dL (2.5-4.5)
--- NOTE | 2020-12-05 16:13 | PN ---
PROGRESS NOTE Patient is seen for followup for end-stage renal disease. He was admitted to the hospital with DKA and developed significant hypotension. Echocardiogram showed large pericardial effusion. Patient had pericardial window and about a liter of fluid was removed. His hemodynamics improved significantly and the patient was dialyzed yesterday. He has been compliant with his treatments as outpatient with acceptable clearances as outpatient on dialysis. There was concern for possible Babar syndrome as patient had recently had catheterization and coronary stent placement about 2 weeks prior. This morning patient denies any significant complaints. He has been off of pressors. He has been eating. No chest pains or shortness of breath. PHYSICAL EXAMINATION: Blood pressure this morning was 126/65, heart rate 71 per minute. He is afebrile. EXAMINATION OF THE HEART: S1, S2. EXAMINATION OF THE LUNGS: Decreased breath sounds at bases. Patient is obese. Examination of lower extremities shows no significant edema. [employer] exam grossly intact. LABS: Labs show hemoglobin 8.2, white cell count 10.4, sodium 130, potassium 5.1, BUN 53, creatinine 5.9. AST 1337, ALT 2063. ASSESSMENT: 1. End-stage renal disease, on hemodialysis on a Tuesday, , Tuesday schedule. The patient will be dialyzed today due to the pericardial effusion this admission. 2. Pericardial effusion, status post pericardial window with about 1 L of fluid removed. It was bloody in nature. Differential diagnosis include uremic pericarditis versus Babar syndrome as per Cardiology. We will continue to dialyze the patient aggressively and avoid heparin. 3. Diabetic ketoacidosis, now resolved. 4. Hyperkalemia, currently improved. 5. Coronary artery disease, status post recent PTCA and coronary stent placement on 10/21/2020. 6. Elevated liver enzymes secondary to shock liver. PLAN: Hemodialysis today. Next dialysis will be on Tuesday if the patient is still in the hospital. We will continue to dialyze without heparin. MMODL / IJN: [id number] /
[2020-12-05 17:10] LABS: Glucose,Whole Blood 167 mg/dL (75-99)
[2020-12-05 21:00] LABS: Glucose,Whole Blood 119 mg/dL (75-99)
[2020-12-05] MEDS: LEVOTHYROXINE 100 MCG TAB PO SCH (21:12)
[2020-12-06] MEDS: HYDROcodone/APAP 10-325MG 1 EACH TAB PO PRN ×5 (03:14→23:46)
[2020-12-06] MEDS: NOREPINEPHRINE 8 MG in SODIUM CHLORIDE 0.9% 250 ML IV SCH (06:04)
[2020-12-06 06:22] LABS: Glucose,Whole Blood 121 mg/dL (75-99)
[2020-12-06] MEDS: INSULIN ASPART (NovoLOG) 100 UNIT/ML VIAL SQ SCH ×7 (07:45→21:37)
[2020-12-06 08:31] LABS: Anisocytosis Slight; Hypochromasia Slight; MCH 31.6 pg (25.0-35.0); MCHC 32.1 g/dL (31.0-37.0); MCV 98.3 fL (80.0-100.0); Macrocytosis Slight; Mean Platelet Volume 7.2; Platelet Count 235 k/uL (150-450); RBC 2.55 m/uL (4.30-5.90); RDW 16.3 % (11.5-15.5); WBC 8.4 k/uL (3.8-10.6)
[2020-12-06] MEDS: CLOPIDOGREL 75 MG TAB PO SCH (08:32)
[2020-12-06] MEDS: MAGNESIUM OXIDE 400 MG TAB PO SCH ×2 (08:32→21:35)
[2020-12-06] MEDS: ASPIRIN 81 MG PO SCH (08:32)
[2020-12-06] MEDS: INSULIN DETEMIR (LEVEMIR) 100 UNIT/ML SYR SQ SCH (08:32)
[2020-12-06 08:37] LABS: Calcium 8.2 mg/dL (8.4-10.2); Potassium 4.4 mmol/L (3.5-5.1); Total Bilirubin 0.4 mg/dL (0.2-1.3); Total Protein 5.9 g/dL (6.3-8.2)
--- NOTE | 2020-12-06 09:03 | P.PN ---
Subjective Progress Note Date: 12/06/20 Principal diagnosis: Large pericardial effusion, hypotension on admission requiring vasopressor use, hyperglycemia on admission with mild anion gap metabolic acidosis, lactic acido sis, elevated liver function. Previous medical history of coronary artery disease with myocardial infarction and recent stent placement, hypertension, heart failure, diabetes, CVA, end-stage renal disease on dialysis, obstructive sleep apnea with CPAP use, hypothyroidism, morbid obesity POD #2 pericardial window with removal of 1 L bloody fluid removed The patient's laying in bed on the cardiac stepdown unit in no acute distress. No complaints of pain shortness of breath at this time. Remains in normal sinus rhythm and hemodynamically stable. Mediastinal chest tube present to waterseal, minimal thin serosanguineous output in the last 24 hours. No other new concerns Objective - Vital Signs Vital signs: Vital Signs Temp 97.8 F 12/06/20 08:00 Pulse 87 12/06/20 08:00 Resp 18 12/06/20 08:00 BP 123/66 12/06/20 08:00 Pulse Ox 98 12/06/20 08:00 Intake & Output 12/05/20 12/06/20 12/06/20 18:59 06:59 18:59 Intake Total 201 250 Output Total 2025 10 10 Balance -1825 -10 240 Weight 161.4 kg 160.9 kg Intake: IV 100 Dextrose 5%-0.9% NaCl 1, 100 000 ml @ 50 mls/hr IV . Q20H [facility] Rx#:[id number] Intake, IV Titration 101 Amount Insulin Regular 100 unit 101 In Sodium Chloride 0.9% 100 ml @ 0.1 UNITS/KG/HR 15.989 mls/hr IV .Q6H20M [facility] Rx#:[id number] Oral 250 Output: Chest Tube Drainage 26 10 10 Mediastinal 26 10 10 Urine 0 Hemodialysis 1999 Other: # Voids 1 ABP, PAP, CO, CI - Last Documented Arterial Blood Pressure 137/77 - Exam CONSTITUTIONAL: Appears comfortable, cooperative, no acute distress RESPIRATORY: Lungs sounds diminished bilaterally. Respirations even, nonlabored. Currently on BiPAP with oxygen saturation in the 90s %. Strong cough. CARDIOVASCULAR: S1, S2 present. Regular rate and rhythm, sinus rhythm on telemetry. Palpable peripheral pulses bilaterally. No edema present. No calf pain or tenderness noted. GASTROINTESTINAL: Abdomen soft, nontender, nondistended, morbidly obese. Active bowel sounds present 4 quadrants. Tolerating diet. GENITOURINARY: No urine output documented. Left AV shunt present. INTEGUMENTARY: Skin is warm and dry with evidence of good perfusion. NEUROLOGIC: Cranial nerves II through XII intact MUSKULOSKELETAL: Able to move all extremities, strength equal bilaterally, gait normal PSYCHIATRIC: Alert and oriented to person place and time, appropriate affect, intact judgment and insight INVASIVE LINES AND TUBES: Mediastinal chest tube present to waterseal, minimal thin serosanguineous drainage in the last 24 hours. - Labs CBC & Chem 7: 12/06/20 07:53 12/06/20 07:53 Labs: Abnormal Lab Results - Last 24 Hours (Table) 12/05/20 12/05/20 12/05/20 Range/Units 04:45 11:00 11:00 RBC 2.64 L (4.30-5.90) m/uL Hgb 8.2 L (13.0-17.5) gm/dL Hct 25.6 L (39.0-53.0) % RDW 16.3 H (11.5-15.5) % Neutrophils # 9.1 H (1.3-7.7) k/uL Lymphocytes # 0.6 L (1.0-4.8) k/uL Sodium 130 L (137-145) mmol/L Chloride 96 L (98-107) mmol/L BUN 53 H (9-20) mg/dL Creatinine 5.99 H (0.66-1.25) mg/dL Glucose 338 H (74-99) mg/dL POC Glucose (mg/dL) (75-99) mg/dL Calcium 7.7 L (8.4-10.2) mg/dL Phosphorus (2.5-4.5) mg/dL Magnesium (1.6-2.3) mg/dL AST 1337 H (17-59) U/L ALT 2063 H (4-49) U/L Alkaline Phosphatase 335 H (38-126) U/L Total Protein 5.8 L (6.3-8.2) g/dL Albumin 2.9 L (3.5-5.0) g/dL Hep Bs Antibody Reactive A (Non-Reactive) 12/05/20 12/05/20 12/05/20 Range/Units 11:00 11:51 14:17 RBC (4.30-5.90) m/uL Hgb (13.0-17.5) gm/dL Hct (39.0-53.0) % RDW (11.5-15.5) % Neutrophils # (1.3-7.7) k/uL Lymphocytes # (1.0-4.8) k/uL Sodium (137-145) mmol/L Chloride (98-107) mmol/L BUN (9-20) mg/dL Creatinine (0.66-1.25) mg/dL Glucose (74-99) mg/dL POC Glucose (mg/dL) 332 H 307 H (75-99) mg/dL Calcium (8.4-10.2) mg/dL Phosphorus 6.2 H (2.5-4.5) mg/dL Magnesium 2.8 H (1.6-2.3) mg/dL AST (17-59) U/L ALT (4-49) U/L Alkaline Phosphatase (38-126) U/L Total Protein (6.3-8.2) g/dL Albumin (3.5-5.0) g/dL Hep Bs Antibody (Non-Reactive) 12/05/20 12/05/20 12/06/20 Range/Units 17:09 20:58 06:21 RBC (4.30-5.90) m/uL Hgb (13.0-17.5) gm/dL Hct (39.0-53.0) % RDW (11.5-15.5) % Neutrophils # (1.3-7.7) k/uL Lymphocytes # (1.0-4.8) k/uL Sodium (137-145) mmol/L Chloride (98-107) mmol/L BUN (9-20) mg/dL Creatinine (0.66-1.25) mg/dL Glucose (74-99) mg/dL POC Glucose (mg/dL) 167 H 119 H 121 H (75-99) mg/dL Calcium (8.4-10.2) mg/dL Phosphorus (2.5-4.5) mg/dL Magnesium (1.6-2.3) mg/dL AST (17-59) U/L ALT (4-49) U/L Alkaline Phosphatase (38-126) U/L Total Protein (6.3-8.2) g/dL Albumin (3.5-5.0) g/dL Hep Bs Antibody (Non-Reactive) 12/06/20 12/06/20 Range/Units 07:53 07:53 RBC 2.55 L (4.30-5.90) m/uL Hgb 8.0 L (13.0-17.5) gm/dL Hct 25.0 L (39.0-53.0) % RDW 16.3 H (11.5-15.5) % Neutrophils # (1.3-7.7) k/uL Lymphocytes # (1.0-4.8) k/uL Sodium (137-145) mmol/L Chloride (98-107) mmol/L BUN 37 H (9-20) mg/dL Creatinine 4.62 H (0.66-1.25) mg/dL Glucose 150 H (74-99) mg/dL POC Glucose (mg/dL) (75-99) mg/dL Calcium 8.2 L (8.4-10.2) mg/dL Phosphorus (2.5-4.5) mg/dL Magnesium (1.6-2.3) mg/dL AST 653 H (17-59) U/L ALT 1146 H (4-49) U/L Alkaline Phosphatase 278 H (38-126) U/L Total Protein 5.9 L (6.3-8.2) g/dL Albumin 3.0 L (3.5-5.0) g/dL Hep Bs Antibody (Non-Reactive) Microbiology - Last 24 Hours (Table) 12/03/20 14:10 Blood Culture - Preliminary Blood No Growth after 48 hours 12/03/20 14:00 Blood Culture - Preliminary Blood No Growth after 48 hours 12/04/20 10:26 Gram Stain - Preliminary Pericardial Fluid Body Fluid Culture - Preliminary Assessment and Plan Assessment: 1. Large pericardial effusion, increased in size from previous echo approximately 2 weeks ago 2. Hypotension requiring increasing vasopressor use, currently off pressors and normotensive 3. Hyperglycemia on admission with mild anion gap metabolic acidosis 4. Lactic acidosis 5. Elevated liver function 6. Coronary artery disease with myocardial infarction and recent stent placement 7. History of hypertension, currently hypotensive 8. History of heart failure 9. Diabetes 10. History of CVA 11. End-stage renal disease on dialysis 12. Obstructive sleep apnea with CPAP use 13. Hypothyroidism 14. Morbid obesity Plan: 1. Likely will discontinue mediastinal chest tube today 2. Increase activity, ambulate as tolerated 3. Wean O2 as tolerated 4. Medical management with the comorbidities per primary care, client care consultant management 5. More recommendations to follow Time with Patient: Greater than 30
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
--- NOTE | 2020-12-06 10:47 | P.PN ---
Subjective Progress Note Date: 12/06/20 The patient is a 60-year-old male who follows in the office with Dr. Liz, who presented to the hospital with worsening shortness of breath and chest discomfort. He was subsequently diagnosed with a pericardial effusion. The patient underwent pericardial window on 12/[address] Ahuja. Drainage was approximately 1 L with placement of drainage tube. The patient was interviewed and examined lying comfortably in bed this morning. He was wearing his CPAP. He states he has been resting well since moving to the cardiac floor. No chest pain except for around chest tube site. No shortness of breath or orthopnea. No palpitations, dizziness, lightheadedness. He states his legs do bother him and he suffers from neuropathy. GENERAL: Well-appearing, well-nourished and in no acute distress. NECK: Supple without JVD or thyromegaly. LUNGS: Breath sounds clear to auscultation bilaterally. Respiration equal and unlabored. No wheezes, rales or rhonchi. HEART: Regular rate and rhythm without murmurs, rubs or gallops. S1 and S2 heard. Chest tube in place. Dressing clean, dry, and intact. EXTREMITIES: Normal range of motion, no edema. No clubbing or cyanosis. Peripheral pulses intact and strong. Vital signs: Blood pressure 123/66, SpO2 90% on 2 L, respiratory rate 18, pulse rate 87, temperature 97.8 Laboratory data: Hemoglobin 8.0, hematocrit 25.0, platelet 235, sodium 139, potassium 4.4, BUN 37, creatinine 4.62, AST 653, ALT 1146, ALP 278 Impression: Pericardial effusion/Babar syndrome, status post pericardial window Coronary artery disease, recent stenting in October 2020 End-stage renal disease, on hemodialysis Elevated liver enzymes, statin currently on hold Plan: Chest tube to be removed today by CT surgery Continue dual antiplatelet therapy Continue to hold statin and monitor liver enzymes The patient has been seen and evaluated. Plan of care has been reviewed and agreed upon by Dr Swain. Objective - Vital Signs Vital signs: Vital Signs Temp 97.8 F 12/06/20 08:00 Pulse 87 12/06/20 08:00 Resp 18 12/06/20 08:00 BP 123/66 12/06/20 08:00 Pulse Ox 98 12/06/20 08:00 Intake & Output 12/05/20 12/06/20 12/06/20 18:59 06:59 18:59 Intake Total 201 250 Output Total 2025 10 10 Balance -1825 -10 240 Weight 161.4 kg 160.9 kg Intake: IV 100 Dextrose 5%-0.9% NaCl 1, 100 000 ml @ 50 mls/hr IV . Q20H [facility] Rx#:[id number] Intake, IV Titration 101 Amount Insulin Regular 100 unit 101 In Sodium Chloride 0.9% 100 ml @ 0.1 UNITS/KG/HR 15.989 mls/hr IV .Q6H20M [facility] Rx#:[id number] Oral 250 Output: Chest Tube Drainage 26 10 10 Mediastinal 26 10 10 Urine 0 Hemodialysis 1999 Other: # Voids 1 ABP, PAP, CO, CI - Last Documented Arterial Blood Pressure 137/77 - Labs CBC & Chem 7: 12/06/20 07:53 12/06/20 07:53 Labs: Abnormal Lab Results - Last 24 Hours (Table) 12/05/20 12/05/20 12/05/20 Range/Units 04:45 11:00 11:00 RBC 2.64 L (4.30-5.90) m/uL Hgb 8.2 L (13.0-17.5) gm/dL Hct 25.6 L (39.0-53.0) % RDW 16.3 H (11.5-15.5) % Neutrophils # 9.1 H (1.3-7.7) k/uL Lymphocytes # 0.6 L (1.0-4.8) k/uL Sodium 130 L (137-145) mmol/L Chloride 96 L (98-107) mmol/L BUN 53 H (9-20) mg/dL Creatinine 5.99 H (0.66-1.25) mg/dL Glucose 338 H (74-99) mg/dL POC Glucose (mg/dL) (75-99) mg/dL Calcium 7.7 L (8.4-10.2) mg/dL Phosphorus (2.5-4.5) mg/dL Magnesium (1.6-2.3) mg/dL AST 1337 H (17-59) U/L ALT 2063 H (4-49) U/L Alkaline Phosphatase 335 H (38-126) U/L Total Protein 5.8 L (6.3-8.2) g/dL Albumin 2.9 L (3.5-5.0) g/dL Hep Bs Antibody Reactive A (Non-Reactive) 12/05/20 12/05/20 12/05/20 Range/Units 11:00 11:51 14:17 RBC (4.30-5.90) m/uL Hgb (13.0-17.5) gm/dL Hct (39.0-53.0) % RDW (11.5-15.5) % Neutrophils # (1.3-7.7) k/uL Lymphocytes # (1.0-4.8) k/uL Sodium (137-145) mmol/L Chloride (98-107) mmol/L BUN (9-20) mg/dL Creatinine (0.66-1.25) mg/dL Glucose (74-99) mg/dL POC Glucose (mg/dL) 332 H 307 H (75-99) mg/dL Calcium (8.4-10.2) mg/dL Phosphorus 6.2 H (2.5-4.5) mg/dL Magnesium 2.8 H (1.6-2.3) mg/dL AST (17-59) U/L ALT (4-49) U/L Alkaline Phosphatase (38-126) U/L Total Protein (6.3-8.2) g/dL Albumin (3.5-5.0) g/dL Hep Bs Antibody (Non-Reactive) 12/05/20 12/05/20 12/06/20 Range/Units 17:09 20:58 06:21 RBC (4.30-5.90) m/uL Hgb (13.0-17.5) gm/dL Hct (39.0-53.0) % RDW (11.5-15.5) % Neutrophils # (1.3-7.7) k/uL Lymphocytes # (1.0-4.8) k/uL Sodium (137-145) mmol/L Chloride (98-107) mmol/L BUN (9-20) mg/dL Creatinine (0.66-1.25) mg/dL Glucose (74-99) mg/dL POC Glucose (mg/dL) 167 H 119 H 121 H (75-99) mg/dL Calcium (8.4-10.2) mg/dL Phosphorus (2.5-4.5) mg/dL Magnesium (1.6-2.3) mg/dL AST (17-59) U/L ALT (4-49) U/L Alkaline Phosphatase (38-126) U/L Total Protein (6.3-8.2) g/dL Albumin (3.5-5.0) g/dL Hep Bs Antibody (Non-Reactive) 12/06/20 12/06/20 Range/Units 07:53 07:53 RBC 2.55 L (4.30-5.90) m/uL Hgb 8.0 L (13.0-17.5) gm/dL Hct 25.0 L (39.0-53.0) % RDW 16.3 H (11.5-15.5) % Neutrophils # (1.3-7.7) k/uL Lymphocytes # (1.0-4.8) k/uL Sodium (137-145) mmol/L Chloride (98-107) mmol/L BUN 37 H (9-20) mg/dL Creatinine 4.62 H (0.66-1.25) mg/dL Glucose 150 H (74-99) mg/dL POC Glucose (mg/dL) (75-99) mg/dL Calcium 8.2 L (8.4-10.2) mg/dL Phosphorus (2.5-4.5) mg/dL Magnesium (1.6-2.3) mg/dL AST 653 H (17-59) U/L ALT 1146 H (4-49) U/L Alkaline Phosphatase 278 H (38-126) U/L Total Protein 5.9 L (6.3-8.2) g/dL Albumin 3.0 L (3.5-5.0) g/dL Hep Bs Antibody (Non-Reactive) Microbiology - Last 24 Hours (Table) 12/03/20 14:10 Blood Culture - Preliminary Blood No Growth after 48 hours 12/03/20 14:00 Blood Culture - Preliminary Blood No Growth after 48 hours 12/04/20 10:26 Gram Stain - Preliminary Pericardial Fluid Body Fluid Culture - Preliminary
--- NOTE | 2020-12-06 11:45 | P.GSCN ---
History of Present Illness History of present illness: 60-year-old gentleman well known to me from the past I did a cephalic brachial fistula 4 years ago and his been coming to the office on regular basis for fistula checked with duplex scan. Patient to burn his left hand fingers no murmur the he's been coming to the wound clinic for local wound care. This time patient had a cardiac tamponade and had a pericardial window. And patient having dialysis 3 times a week. On examination neck is supple no bruit appreciated. Chest is clear few rhonchi at the lung bases Abdomen soft nontender Vascular patient has a decent thrill in the left upper arm graft radial pulse but the Doppler ulnar artery has no Doppler signal a shunt has a third finger digit dry gangrene new Plan is at this point we will watch very closely and I will follow in my office next week patient will be coming to the office for duplex scan of the fistula and PPG test check the circulation of the fingers Past Medical History Past Medical History: Coronary Artery Disease (CAD), Cancer, Heart Failure, CVA/TIA, Diabetes Mellitus, Eye Disorder, Hypertension, Myocardial Infarction ([place]), Renal Disease, Sleep Apnea/CPAP/BIPAP, Thyroid Disorder Additional Past Medical History / Comment(s): IDDM type II, neuropathy bilateral lower extremity/feet, bilateral eye diabetic retinopathy/poor vision/multiple injections, ESRD with hemodialysis T//TUE, anemia, "mini strokes" x2, AVANI with CPap use, occasional low back pain/disc disease, gout, hypothyroid Last Myocardial Infarction Date:: 10/20/20 History of Any Multi-Drug Resistant Organisms: None Reported Past Surgical History: Adenoidectomy, Bariatric Surgery, Cholecystectomy, Heart Catheterization, Heart Catheterization With Stent, Orthopedic Surgery, Tonsillectomy Additional Past Surgical History / Comment(s): 10/22/20 PCI with stents, lap ba nding, FX of right ankle repair pins / plate, fistual lt arm jul 2018, lt shoulder sx (d/t separation), colonoscopies, bilateral cataract removals/lens implants. Past Anesthesia/Blood Transfusion Reactions: Motion Sickness Additional Past Anesthesia/Blood Transfusion Reaction / Comm: CLAUSTERPHOBIA Date of Last Stent Placement:: 10/22/20 Past Psychological History: Anxiety Smoking Status: Former smoker - Past Family History Mother History Unknown: Yes Family Medical History: Coronary Artery Disease (CAD), Diabetes Mellitus, Myocardial Infarction ([place]) Additional Family Medical History / Comment(s): Mother at age 58 from multiple sclerosis Father Family Medical History: CVA/TIA, Myocardial Infarction ([place]) Additional Family Medical History / Comment(s): Father had history of [place] and CVA followed by a second [place] and CVA and at age 65. Brother(s) Additional Family Medical History / Comment(s): . Medications and Allergies Home Medications Medication Instructions Recorded Confirmed Type Atorvastatin [Lipitor] 40 mg PO HS 08/07/14 12/03/20 History Levothyroxine Sodium 100 mcg PO HS 07/06/17 12/03/20 History Torsemide [Demadex] 40 mg PO DAILY 09/10/19 12/03/20 History Allopurinol [Zyloprim] 300 mg PO HS 10/20/20 12/03/20 History Carvedilol [Coreg] 6.25 mg PO HS 10/20/20 12/03/20 History Magnebind 300mg 1 tab PO BID 10/20/20 12/03/20 History Magnesium Hydroxide [Milk of 2,400 mg PO DAILY PRN 10/20/20 12/03/20 History Magnesia] Bryanna-Olimpia 1 tab PO DAILY 10/20/20 12/03/20 History lisinopriL [Zestril] 5 mg PO BID 10/20/20 12/03/20 History Aspirin 81 mg PO DAILY #90 chew 10/22/20 12/03/20 Rx Calcium Acetate [PhosLo] 1,334 mg PO TID-W/MEALS tab 10/23/20 12/03/20 Rx Nitroglycerin Sl Tabs [Nitrostat] 0.4 mg SUBLINGUAL Q5M PRN #25 tab 10/23/20 12/03/20 Rx Calcium Carbonate [Tums Ultra 2,354 mg PO AC-BID PRN 11/24/20 12/03/20 History Strength] Clopidogrel Bisulfate [Plavix] 75 mg PO DAILY 11/24/20 12/03/20 History HYDROcodone/APAP 10-325MG [Auxvasse 1 tab PO QID PRN 11/24/20 12/03/20 History 10-325] Insulin Detemir [Levemir Flextouch] 60 units SQ HS 11/24/20 12/03/20 History Insulin Regular, Human [Novolin R 30 unit SQ AC-TID 11/24/20 12/03/20 History Flexpen] Lactulose [Cephulac] 30 gm PO DAILY PRN 11/24/20 12/03/20 History Allergies Allergy/AdvReac Type Severity Reaction Status Date / Time No Known Allergies Allergy Verified 12/03/20 12:26 Surgical - Exam Vital Signs Temp Pulse Resp BP Pulse Ox 100.5 F H 101 H 18 100/73 98 12/03/20 11:56 12/03/20 11:56 12/03/20 11:56 12/03/20 11:56 12/03/20 11:56 Results - Labs 12/06/20 07:53 12/06/20 07:53 Abnormal Lab Results - Last 24 Hours (Table) 12/05/20 12/05/20 12/05/20 Range/Units 04:45 11:00 11:00 RBC 2.64 L (4.30-5.90) m/uL Hgb 8.2 L (13.0-17.5) gm/dL Hct 25.6 L (39.0-53.0) % RDW 16.3 H (11.5-15.5) % Neutrophils # 9.1 H (1.3-7.7) k/uL Lymphocytes # 0.6 L (1.0-4.8) k/uL Sodium 130 L (137-145) mmol/L Chloride 96 L (98-107) mmol/L BUN 53 H (9-20) mg/dL Creatinine 5.99 H (0.66-1.25) mg/dL Glucose 338 H (74-99) mg/dL POC Glucose (mg/dL) (75-99) mg/dL Calcium 7.7 L (8.4-10.2) mg/dL Phosphorus (2.5-4.5) mg/dL Magnesium (1.6-2.3) mg/dL AST 1337 H (17-59) U/L ALT 2063 H (4-49) U/L Alkaline Phosphatase 335 H (38-126) U/L Total Protein 5.8 L (6.3-8.2) g/dL Albumin 2.9 L (3.5-5.0) g/dL Hep Bs Antibody Reactive A (Non-Reactive) 12/05/20 12/05/20 12/05/20 Range/Units 11:00 11:51 14:17 RBC (4.30-5.90) m/uL Hgb (13.0-17.5) gm/dL Hct (39.0-53.0) % RDW (11.5-15.5) % Neutrophils # (1.3-7.7) k/uL Lymphocytes # (1.0-4.8) k/uL Sodium (137-145) mmol/L Chloride (98-107) mmol/L BUN (9-20) mg/dL Creatinine (0.66-1.25) mg/dL Glucose (74-99) mg/dL POC Glucose (mg/dL) 332 H 307 H (75-99) mg/dL Calcium (8.4-10.2) mg/dL Phosphorus 6.2 H (2.5-4.5) mg/dL Magnesium 2.8 H (1.6-2.3) mg/dL AST (17-59) U/L ALT (4-49) U/L Alkaline Phosphatase (38-126) U/L Total Protein (6.3-8.2) g/dL Albumin (3.5-5.0) g/dL Hep Bs Antibody (Non-Reactive) 12/05/20 12/05/20 12/06/20 Range/Units 17:09 20:58 06:21 RBC (4.30-5.90) m/uL Hgb (13.0-17.5) gm/dL Hct (39.0-53.0) % RDW (11.5-15.5) % Neutrophils # (1.3-7.7) k/uL Lymphocytes # (1.0-4.8) k/uL Sodium (137-145) mmol/L Chloride (98-107) mmol/L BUN (9-20) mg/dL Creatinine (0.66-1.25) mg/dL Glucose (74-99) mg/dL POC Glucose (mg/dL) 167 H 119 H 121 H (75-99) mg/dL Calcium (8.4-10.2) mg/dL Phosphorus (2.5-4.5) mg/dL Magnesium (1.6-2.3) mg/dL AST (17-59) U/L ALT (4-49) U/L Alkaline Phosphatase (38-126) U/L Total Protein (6.3-8.2) g/dL Albumin (3.5-5.0) g/dL Hep Bs Antibody (Non-Reactive) 12/06/20 12/06/20 Range/Units 07:53 07:53 RBC 2.55 L (4.30-5.90) m/uL Hgb 8.0 L (13.0-17.5) gm/dL Hct 25.0 L (39.0-53.0) % RDW 16.3 H (11.5-15.5) % Neutrophils # (1.3-7.7) k/uL Lymphocytes # (1.0-4.8) k/uL Sodium (137-145) mmol/L Chloride (98-107) mmol/L BUN 37 H (9-20) mg/dL Creatinine 4.62 H (0.66-1.25) mg/dL Glucose 150 H (74-99) mg/dL POC Glucose (mg/dL) (75-99) mg/dL Calcium 8.2 L (8.4-10.2) mg/dL Phosphorus (2.5-4.5) mg/dL Magnesium (1.6-2.3) mg/dL AST 653 H (17-59) U/L ALT 1146 H (4-49) U/L Alkaline Phosphatase 278 H (38-126) U/L Total Protein 5.9 L (6.3-8.2) g/dL Albumin 3.0 L (3.5-5.0) g/dL Hep Bs Antibody (Non-Reactive) Microbiology - Last 24 Hours (Table) 12/03/20 14:10 Blood Culture - Preliminary Blood No Growth after 48 hours 12/03/20 14:00 Blood Culture - Preliminary Blood No Growth after 48 hours 12/04/20 10:26 Gram Stain - Preliminary Pericardial Fluid Body Fluid Culture - Preliminary Diabetes panel 12/05/20 12/06/20 Range/Units 11:00 07:53 Sodium 130 L 139 (137-145) mmol/L Potassium 5.1 4.4 (3.5-5.1) mmol/L Chloride 96 L 102 (98-107) mmol/L Carbon Dioxide 25 25 (22-30) mmol/L BUN 53 H 37 H (9-20) mg/dL Creatinine 5.99 H 4.62 H (0.66-1.25) mg/dL Glucose 338 H 150 H (74-99) mg/dL Calcium 7.7 L 8.2 L (8.4-10.2) mg/dL AST 1337 H 653 H (17-59) U/L ALT 2063 H 1146 H (4-49) U/L Alkaline Phosphatase 335 H 278 H (38-126) U/L Total Protein 5.8 L 5.9 L (6.3-8.2) g/dL Albumin 2.9 L 3.0 L (3.5-5.0) g/dL Calcium panel 12/05/20 12/05/20 12/06/20 Range/Units 11:00 11:00 07:53 Calcium 7.7 L 8.2 L (8.4-10.2) mg/dL Phosphorus 6.2 H (2.5-4.5) mg/dL Albumin 2.9 L 3.0 L (3.5-5.0) g/dL Pituitary panel 12/05/20 12/06/20 Range/Units 11:00 07:53 Sodium 130 L 139 (137-145) mmol/L Potassium 5.1 4.4 (3.5-5.1) mmol/L Chloride 96 L 102 (98-107) mmol/L Carbon Dioxide 25 25 (22-30) mmol/L BUN 53 H 37 H (9-20) mg/dL Creatinine 5.99 H 4.62 H (0.66-1.25) mg/dL Glucose 338 H 150 H (74-99) mg/dL Calcium 7.7 L 8.2 L (8.4-10.2) mg/dL Adrenal panel 12/05/20 12/06/20 Range/Units 11:00 07:53 Sodium 130 L 139 (137-145) mmol/L Potassium 5.1 4.4 (3.5-5.1) mmol/L Chloride 96 L 102 (98-107) mmol/L Carbon Dioxide 25 25 (22-30) mmol/L BUN 53 H 37 H (9-20) mg/dL Creatinine 5.99 H 4.62 H (0.66-1.25) mg/dL Glucose 338 H 150 H (74-99) mg/dL Calcium 7.7 L 8.2 L (8.4-10.2) mg/dL Total Bilirubin 0.5 0.4 (0.2-1.3) mg/dL AST 1337 H 653 H (17-59) U/L ALT 2063 H 1146 H (4-49) U/L Alkaline Phosphatase 335 H 278 H (38-126) U/L Total Protein 5.8 L 5.9 L (6.3-8.2) g/dL Albumin 2.9 L 3.0 L (3.5-5.0) g/dL
[2020-12-06 11:46] LABS: Glucose,Whole Blood 141 mg/dL (75-99)
--- NOTE | 2020-12-06 11:46 | P.PN ---
Subjective Progress Note Date: 12/06/20 Principal diagnosis: This 60-year-old male who has ESRD on dialysis Tuesday. Came in with shortness of breath and had a pericardial effusion which was treated with this window on 12/04/2020. His stable postop blood pressures in the 120s to 130s He is known with obesity diabetes type 2, obstructive sleep apnea, diabetic neuropathy retinopathy prostate cancer status post radiation 2017. Postop he is doing well. No shortness of breath is on room air. No nausea vomiting appetite is improving Objective - Vital Signs Vital signs: Vital Signs Temp 97.8 F 12/06/20 08:00 Pulse 87 12/06/20 08:00 Resp 18 12/06/20 08:00 BP 123/66 12/06/20 08:00 Pulse Ox 98 12/06/20 08:00 Intake & Output 12/05/20 12/06/20 12/06/20 18:59 06:59 18:59 Intake Total 201 250 Output Total 2025 10 10 Balance -1825 -10 240 Weight 161.4 kg 160.9 kg Intake: IV 100 Dextrose 5%-0.9% NaCl 1, 100 000 ml @ 50 mls/hr IV . Q20H [facility] Rx#:[id number] Intake, IV Titration 101 Amount Insulin Regular 100 unit 101 In Sodium Chloride 0.9% 100 ml @ 0.1 UNITS/KG/HR 15.989 mls/hr IV .Q6H20M [facility] Rx#:[id number] Oral 250 Output: Chest Tube Drainage 26 10 10 Mediastinal 26 10 10 Urine 0 Hemodialysis 1999 Other: # Voids 1 ABP, PAP, CO, CI - Last Documented Arterial Blood Pressure 137/77 On examination awake alert oriented on room air stable. HEENT exam JVP not noted. Neck is supple no facial asymmetry Lungs are clear to auscultation good air entry bilaterally Heart sounds are unremarkable for any murmur rub gallop Abdomen is soft nontender Extremity examination was trace edema Neurologically awake alert oriented - Labs CBC & Chem 7: 12/06/20 07:53 12/06/20 07:53 Labs: Abnormal Lab Results - Last 24 Hours (Table) 12/05/20 12/05/20 12/05/20 Range/Units 04:45 11:00 11:00 RBC 2.64 L (4.30-5.90) m/uL Hgb 8.2 L (13.0-17.5) gm/dL Hct 25.6 L (39.0-53.0) % RDW 16.3 H (11.5-15.5) % Neutrophils # 9.1 H (1.3-7.7) k/uL Lymphocytes # 0.6 L (1.0-4.8) k/uL Sodium 130 L (137-145) mmol/L Chloride 96 L (98-107) mmol/L BUN 53 H (9-20) mg/dL Creatinine 5.99 H (0.66-1.25) mg/dL Glucose 338 H (74-99) mg/dL POC Glucose (mg/dL) (75-99) mg/dL Calcium 7.7 L (8.4-10.2) mg/dL Phosphorus (2.5-4.5) mg/dL Magnesium (1.6-2.3) mg/dL AST 1337 H (17-59) U/L ALT 2063 H (4-49) U/L Alkaline Phosphatase 335 H (38-126) U/L Total Protein 5.8 L (6.3-8.2) g/dL Albumin 2.9 L (3.5-5.0) g/dL Hep Bs Antibody Reactive A (Non-Reactive) 12/05/20 12/05/20 12/05/20 Range/Units 11:00 11:51 14:17 RBC (4.30-5.90) m/uL Hgb (13.0-17.5) gm/dL Hct (39.0-53.0) % RDW (11.5-15.5) % Neutrophils # (1.3-7.7) k/uL Lymphocytes # (1.0-4.8) k/uL Sodium (137-145) mmol/L Chloride (98-107) mmol/L BUN (9-20) mg/dL Creatinine (0.66-1.25) mg/dL Glucose (74-99) mg/dL POC Glucose (mg/dL) 332 H 307 H (75-99) mg/dL Calcium (8.4-10.2) mg/dL Phosphorus 6.2 H (2.5-4.5) mg/dL Magnesium 2.8 H (1.6-2.3) mg/dL AST (17-59) U/L ALT (4-49) U/L Alkaline Phosphatase (38-126) U/L Total Protein (6.3-8.2) g/dL Albumin (3.5-5.0) g/dL Hep Bs Antibody (Non-Reactive) 12/05/20 12/05/20 12/06/20 Range/Units 17:09 20:58 06:21 RBC (4.30-5.90) m/uL Hgb (13.0-17.5) gm/dL Hct (39.0-53.0) % RDW (11.5-15.5) % Neutrophils # (1.3-7.7) k/uL Lymphocytes # (1.0-4.8) k/uL Sodium (137-145) mmol/L Chloride (98-107) mmol/L BUN (9-20) mg/dL Creatinine (0.66-1.25) mg/dL Glucose (74-99) mg/dL POC Glucose (mg/dL) 167 H 119 H 121 H (75-99) mg/dL Calcium (8.4-10.2) mg/dL Phosphorus (2.5-4.5) mg/dL Magnesium (1.6-2.3) mg/dL AST (17-59) U/L ALT (4-49) U/L Alkaline Phosphatase (38-126) U/L Total Protein (6.3-8.2) g/dL Albumin (3.5-5.0) g/dL Hep Bs Antibody (Non-Reactive) 12/06/20 12/06/20 Range/Units 07:53 07:53 RBC 2.55 L (4.30-5.90) m/uL Hgb 8.0 L (13.0-17.5) gm/dL Hct 25.0 L (39.0-53.0) % RDW 16.3 H (11.5-15.5) % Neutrophils # (1.3-7.7) k/uL Lymphocytes # (1.0-4.8) k/uL Sodium (137-145) mmol/L Chloride (98-107) mmol/L BUN 37 H (9-20) mg/dL Creatinine 4.62 H (0.66-1.25) mg/dL Glucose 150 H (74-99) mg/dL POC Glucose (mg/dL) (75-99) mg/dL Calcium 8.2 L (8.4-10.2) mg/dL Phosphorus (2.5-4.5) mg/dL Magnesium (1.6-2.3) mg/dL AST 653 H (17-59) U/L ALT 1146 H (4-49) U/L Alkaline Phosphatase 278 H (38-126) U/L Total Protein 5.9 L (6.3-8.2) g/dL Albumin 3.0 L (3.5-5.0) g/dL Hep Bs Antibody (Non-Reactive) Microbiology - Last 24 Hours (Table) 12/03/20 14:10 Blood Culture - Preliminary Blood No Growth after 48 hours 12/03/20 14:00 Blood Culture - Preliminary Blood No Growth after 48 hours 12/04/20 10:26 Gram Stain - Preliminary Pericardial Fluid Body Fluid Culture - Preliminary Assessment and Plan Assessment: Impression 1. ESRD on dialysis Tuesday, has been dialyzed on and Tuesday yesterday 2. Admitted with shortness of breath and with pericardial tamponade not status post window, dated 12/04/2020. Vital signs stable 3. Morbid obesity 4. Abnormal liver function tests improving off of statin. May be related to pericardial tamponade on also. 5. His hemoglobin is 8, check iron saturation 2. anemia of chronic kidney disease rule out iron deficiency. Recommendation 1. Patient is scheduled for dialysis today. 2. Check iron saturation
--- NOTE | 2020-12-06 11:58 | P.PN ---
Subjective Progress Note Date: 12/06/20 Principal diagnosis: Elevated liver enzymes, history of bariatric surgery The patient is seen lying in bed with no acute complaints. Tolerating diet. No jaundice or icterus reported. No abdominal pain. Objective - Vital Signs Vital signs: Vital Signs Temp 97.8 F 12/06/20 08:00 Pulse 87 12/06/20 08:00 Resp 18 12/06/20 08:00 BP 123/66 12/06/20 08:00 Pulse Ox 98 12/06/20 08:00 Intake & Output 12/05/20 12/06/20 12/06/20 18:59 06:59 18:59 Intake Total 201 250 Output Total 2025 10 10 Balance -5 -10 240 Weight 161.4 kg 160.9 kg Intake: IV 100 Dextrose 5%-0.9% NaCl 1, 100 000 ml @ 50 mls/hr IV . Q20H [facility] Rx#:[id number] Intake, IV Titration 101 Amount Insulin Regular 100 unit 101 In Sodium Chloride 0.9% 100 ml @ 0.1 UNITS/KG/HR 15.989 mls/hr IV .Q6H20M [facility] Rx#:[id number] Oral 250 Output: Chest Tube Drainage 26 10 10 Mediastinal 26 10 10 Urine 0 Hemodialysis 2000 Other: # Voids 1 ABP, PAP, CO, CI - Last Documented Arterial Blood Pressure 137/77 - Exam On physical examination, patient appears comfortable in no apparent distress. HEAD: Normocephalic, atraumatic. EYES: No scleral icterus. No conjunctival injection. MOUTH: No lesions, tongue midline. NECK: Trachea midline, no gross abnormalities. CHEST: Decreased air entry in all lung wallace much chest tube in place. ABDOMEN: Soft, obese and nontender. Bowel sounds are positive. No organomegaly. No guarding or rigidity. EXTREMITIES: Bilateral pedal edema. SKIN: No rashes, no jaundice. NEUROLOGIC: Alert and oriented x3. - Labs CBC & Chem 7: 12/06/20 07:53 12/06/20 07:53 Labs: Abnormal Lab Results - Last 24 Hours (Table) 12/05/20 12/05/20 12/05/20 Range/Units 04:45 11:00 11:00 RBC 2.64 L (4.30-5.90) m/uL Hgb 8.2 L (13.0-17.5) gm/dL Hct 25.6 L (39.0-53.0) % RDW 16.3 H (11.5-15.5) % Neutrophils # 9.1 H (1.3-7.7) k/uL Lymphocytes # 0.6 L (1.0-4.8) k/uL Sodium 130 L (137-145) mmol/L Chloride 96 L (98-107) mmol/L BUN 53 H (9-20) mg/dL Creatinine 5.99 H (0.66-1.25) mg/dL Glucose 338 H (74-99) mg/dL POC Glucose (mg/dL) (75-99) mg/dL Calcium 7.7 L (8.4-10.2) mg/dL Phosphorus (2.5-4.5) mg/dL Magnesium (1.6-2.3) mg/dL AST 1337 H (17-59) U/L ALT 2063 H (4-49) U/L Alkaline Phosphatase 335 H (38-126) U/L Total Protein 5.8 L (6.3-8.2) g/dL Albumin 2.9 L (3.5-5.0) g/dL Hep Bs Antibody Reactive A (Non-Reactive) 12/05/20 12/05/20 12/05/20 Range/Units 11:00 14:17 17:09 RBC (4.30-5.90) m/uL Hgb (13.0-17.5) gm/dL Hct (39.0-53.0) % RDW (11.5-15.5) % Neutrophils # (1.3-7.7) k/uL Lymphocytes # (1.0-4.8) k/uL Sodium (137-145) mmol/L Chloride (98-107) mmol/L BUN (9-20) mg/dL Creatinine (0.66-1.25) mg/dL Glucose (74-99) mg/dL POC Glucose (mg/dL) 307 H 167 H (75-99) mg/dL Calcium (8.4-10.2) mg/dL Phosphorus 6.2 H (2.5-4.5) mg/dL Magnesium 2.8 H (1.6-2.3) mg/dL AST (17-59) U/L ALT (4-49) U/L Alkaline Phosphatase (38-126) U/L Total Protein (6.3-8.2) g/dL Albumin (3.5-5.0) g/dL Hep Bs Antibody (Non-Reactive) 12/05/20 12/06/20 12/06/20 Range/Units 20:58 06:21 07:53 RBC (4.30-5.90) m/uL Hgb (13.0-17.5) gm/dL Hct (39.0-53.0) % RDW (11.5-15.5) % Neutrophils # (1.3-7.7) k/uL Lymphocytes # (1.0-4.8) k/uL Sodium (137-145) mmol/L Chloride (98-107) mmol/L BUN 37 H (9-20) mg/dL Creatinine 4.62 H (0.66-1.25) mg/dL Glucose 150 H (74-99) mg/dL POC Glucose (mg/dL) 119 H 121 H (75-99) mg/dL Calcium 8.2 L (8.4-10.2) mg/dL Phosphorus (2.5-4.5) mg/dL Magnesium (1.6-2.3) mg/dL AST 653 H (17-59) U/L ALT 1146 H (4-49) U/L Alkaline Phosphatase 278 H (38-126) U/L Total Protein 5.9 L (6.3-8.2) g/dL Albumin 3.0 L (3.5-5.0) g/dL Hep Bs Antibody (Non-Reactive) 12/06/20 12/06/20 Range/Units 07:53 11:45 RBC 2.55 L (4.30-5.90) m/uL Hgb 8.0 L (13.0-17.5) gm/dL Hct 25.0 L (39.0-53.0) % RDW 16.3 H (11.5-15.5) % Neutrophils # (1.3-7.7) k/uL Lymphocytes # (1.0-4.8) k/uL Sodium (137-145) mmol/L Chloride (98-107) mmol/L BUN (9-20) mg/dL Creatinine (0.66-1.25) mg/dL Glucose (74-99) mg/dL POC Glucose (mg/dL) 141 H (75-99) mg/dL Calcium (8.4-10.2) mg/dL Phosphorus (2.5-4.5) mg/dL Magnesium (1.6-2.3) mg/dL AST (17-59) U/L ALT (4-49) U/L Alkaline Phosphatase (38-126) U/L Total Protein (6.3-8.2) g/dL Albumin (3.5-5.0) g/dL Hep Bs Antibody (Non-Reactive) Microbiology - Last 24 Hours (Table) 12/03/20 14:10 Blood Culture - Preliminary Blood No Growth after 48 hours 12/03/20 14:00 Blood Culture - Preliminary Blood No Growth after 48 hours 12/04/20 10:26 Gram Stain - Preliminary Pericardial Fluid Body Fluid Culture - Preliminary Assessment and Plan (1) Elevated liver enzymes Narrative/Plan: 60-year-old male with multiple medical comorbidities who presented to the hospital with complaints of shortness of breath and was found to be hyperglycemic for which he is receiving treatment as well as being found to have developed a pericardial effusion for which he is status post pericardial window. The patient did experience episodes of hypotension was found to have a markedly elevated LFT profile predominantly in a hepatocellular pattern with a normal total bilirubin of 1.0, alkaline phosphatase was found to be 403 and AST and ALT were found to be markedly elevated at 5262 and 4475 respectively. Denies any prior history of elevated liver enzymes, but suspicion is for some degree of underlying liver disease in the setting of metabolic syndrome. He denies any viral hepatitis. Suspicion is for elevation in liver enzymes secondary to ischemic hepatitis, viral hepatitis panel testing was negative and liver enzymes continue to improve consistent with ischemic hepatitis. Current Visit: Yes Status: Acute Code(s): R74.8 - ABNORMAL LEVELS OF OTHER SERUM ENZYMES SNOMED Code(s): 319609125 (2) History of bariatric surgery Current Visit: Yes Status: Acute Code(s): Z98.84 - BARIATRIC SURGERY STATUS SNOMED Code(s): 640283396 Plan: supportive care Okay for diet as tolerated Avoid hepatotoxic medications Continue to monitor CBC, BMP, LFTs Acute viral hepatitis panel ordered Liver enzymes continue to trend down consistent with ischemic hepatitis, no plans for further intervention or treatment at this time, if patient has any worsening of liver enzymes please call us back for further evaluation otherwise GI service will stand by at this time Thank you for allowing us to participate in the care of the patient
--- NOTE | 2020-12-06 13:34 | P.PN ---
Subjective Progress Note Date: 12/06/20 60-year-old male patient presented to the ED with worsening shortness of breath. The patient has multiple medical problems and comorbidities. First of all, the patient has incisional disease and the patient on hemodialysis 3 times a week, TTS in addition to diabetes mellitus type 2 on insulin, hypertension, hyperlipidemia, obstructive sleep apnea maintained on CPAP, diabetes mellitus with diabetic neuropathy and retinopathy, hypothyroidism and history of prostate cancer. The patient also has gout. The patient is morbidly obese and carries a BMI of 48.7. Also, the patient was involved in acute inferior wall myocardial infarction requiring angioplasty of the right coronary artery he weeks back. The patient came into the hospital because of worsening shortness of breath. The patient was found also to be hypotensive during dialysis and the dialysis had to be done at a low rate. The patient also stated that he was feeling weak and he was in bed all the time and he was unable to get up and walk along with his shortness of breath. He denies having any chest pain. Denied having any palpitation. No reported fever or chills. No reported nausea vomiting or abdominal pain. In the ED, his blood pressure was noted to be low and he was given a bolus of 1 L of IV fluids. No pressors were initiated. The patient a white cell count of 13.9, hemoglobin of 8.5 with a platelet count of 26, coagulation profile is within normal limits, initial potassium level was 7.7 the patient is a 22 with anion gap of 18. Noted the patient's blood sugar was above 600. Lactic acid level was at 5.4. Phosphorus was at 3.4 with a calcium level of 8.2. AST was 1897 and ALT was 1615 with a normal alkaline phosphatase of 215 and a troponin was negative with a proBNP level of 2870. The patient was given insulin and the blood sugars started to improve. Currently the patient on insulin drip at 0.1 units per kilogram per hour and the most recent potassium level is down to 6.3. Sugar is at 471. Alcohol level was negative. Covid 19 testing was also negative. Chest x-ray shows cardiomegaly otherwise no other acute abnormalities of been noted. The EKG is consistent with normal sinus rhythm. Nonspecific ST segment abnormalities. On today's evaluation 12/04/2020 the patient is in the intensive care unit. He is in ICU for 2 reasons. First he is hypotensive and second he was indicated the time of admission. In terms of his DKA, the patient remains on an insulin drip is running at 4 units an hour. The blood sugar recently is down to 180. anion gap is at 14 with a serum bicarb of 21. As such, the anion gap has almost closed the patient is improving and the potassium level is down to 6. At the same time, the patient is receiving IV fluids in the form of D5 0.9 at the rate of 50 mL an hour. In terms of his blood pressure, the patient received boluses of normal saline, a total of 3.5 L since emergency department. He remains hypotensive. Currently norepinephrine infusion is running at a dose of 0.2 mcg/kg per minute. This is quite a large dose for him. Exact cause for the hypotension remains unclear. He is free of any chest pain. No signs of any infection. He was given a dose of Rocephin in the emergency addition to vancomycin. His white cell count today is at 17.7 and the patient is afebrile. The blood cultures of been negative. Villar cath is in place and the patient has not produced any urine output. Abdomen is soft. The patient has developed shock liver and there is increase in the AST and ALP. AST is up to 5262 and ALP is up to 4475. The lactic acid level peaked at 5.4 and is down to 1.9. 12/05/2020 I'm seeing the patient for a follow-up. Events from yesterday was noted. Echo showed a large pericardial effusion and this was the main reason f or the patient's hemodynamic instability. At that point, I consulted cardiothoracic surgery and the patient underwent a pericardial window for a total of 1 L of bloody pericardial fluid was aspirated successfully. Immediately following that, the patient's hemodynamics improved and the patient is currently off pressors. He was brought back to the intensive care unit. Pressors were discontinued. The patient also underwent dialysis yesterday without any major complications. This morning, the patient is being seen for a follow-up. As the patient still has his pericardial tube in place and output has been about 42 mild. As mentioned, he is on no pressors for now. He was given empiric antibiotic coverage suspecting infection. He was given a combination of Rocephin and vancomycin and both can be discontinued at this point in time. Labs from today are still pending. Culture is negative. He was in shock liver in the follow-up liver function tests are still pending for now. He is awake. He is following commands. Answering questions. Most recent blood pressure is stable and the patient is not having any significant hypotension. In terms of his DKA, the patient's gap has closed and the patient is still on insulin drip at 2.25 units an hour. He is on IV fluids with D5 normal saline at 50 mL an hour. He is tolerating diet. No other significant issues with electrolytes pending blood work from today. Today's evaluation of 12/06/2020, the patient is on the medical floor. Doing well. Pericardial tube has been removed by CT surgery. He is feeling great. He is about to start hemodialysis. He has not required any pressors. No syncope. No chest pain. No other issues otherwise for now. He is currently on room air oxygen.He is also taking Levemir insulin 60 units a day along with 30 units of NovoLog with meals and a sliding scale coverage. Is back on aspirin a nd Plavix. No antibiotics. No pressors. Objective - Vital Signs Vital signs: Vital Signs Temp 97.9 F 12/06/20 12:00 Pulse 87 12/06/20 12:00 Resp 18 12/06/20 12:19 BP 155/65 12/06/20 12:00 Pulse Ox 99 12/06/20 12:00 Intake & Output 12/05/20 12/06/20 12/06/20 18:59 06:59 18:59 Intake Total 201 250 Output Total 2025 10 20 Balance -1824 230 Weight 161.4 kg 160.9 kg Intake: IV 100 Dextrose 5%-0.9% NaCl 1, 100 000 ml @ 50 mls/hr IV . Q20H [facility] Rx#:[id number] Intake, IV Titration 101 Amount Insulin Regular 100 unit 101 In Sodium Chloride 0.9% 100 ml @ 0.1 UNITS/KG/HR 15.989 mls/hr IV .Q6H20M [facility] Rx#:[id number] Oral 250 Output: Chest Tube Drainage 26 10 20 Mediastinal 26 10 20 Urine 0 Hemodialysis 1999 Other: # Voids 1 ABP, PAP, CO, CI - Last Documented Arterial Blood Pressure 137/77 - Exam Morbidly obese, comfortable likely distress, he is on 3 L of oxygen by nasal cannula, Head exam was generally normal. There was no scleral icterus or corneal arcus. Mucous membranes were moist. Neck was supple and without jugular venous distension, thyromegaly, or carotid bruits. Carotids were easily palpable bilaterally. There was no adenopathy. The patient is a Mallampati class IV Lungs were clear to auscultation and percussion, and with normal diaphragmatic excursion. No wheezes or rales were noted. Cardiac exam revealed the PMI to be normally situated and sized. The rhythm was regular and no extrasystoles were noted during several minutes of auscultation. The first and second heart sounds were normal and physiologic splitting of the second heart sound was noted. There were no murmurs, rubs, clicks, or gallops , the surgical incision site is clean and intact and the pericardial tube was removed Abdomen is obese and the organs cannot be accurately palpated. There is no direct tenderness or rebound tenderness or guarding. Examination of the extremities revealed easily palpable radial, femoral and pedal pulses. There was no cyanosis, clubbing or edema. The patient has a functional AV fistula in the left upper extremity. At the same time the patient has neuropathy and skin sloughing and his tip of the left index finger which he attributes to picking and burning while picking up hot objects as the patient has extensive neuropathy. No signs of any infection at this point in time. Pulses in the various lower extremities are quite diminished but they're palpable. Neurologically, the patient is awake and alert and the patient does not have any focal neurological deficit. Cranial nerves are essentially intact. Examination of the skin as mentioned above specially in the tip of the fingers. - Labs CBC & Chem 7: 12/06/20 07:53 12/06/20 07:53 Labs: Abnormal Lab Results - Last 24 Hours (Table) 12/05/20 12/05/20 12/05/20 Range/Units 11:00 14:17 17:09 RBC (4.30-5.90) m/uL Hgb (13.0-17.5) gm/dL Hct (39.0-53.0) % RDW (11.5-15.5) % BUN (9-20) mg/dL Creatinine (0.66-1.25) mg/dL Glucose (74-99) mg/dL POC Glucose (mg/dL) 307 H 167 H (75-99) mg/dL Calcium (8.4-10.2) mg/dL Phosphorus 6.2 H (2.5-4.5) mg/dL Magnesium 2.8 H (1.6-2.3) mg/dL AST (17-59) U/L ALT (4-49) U/L Alkaline Phosphatase (38-126) U/L C-Reactive Protein (<10.0) mg/L Total Protein (6.3-8.2) g/dL Albumin (3.5-5.0) g/dL 12/05/20 12/06/20 12/06/20 Range/Units 20:58 06:21 07:53 RBC (4.30-5.90) m/uL Hgb (13.0-17.5) gm/dL Hct (39.0-53.0) % RDW (11.5-15.5) % BUN 37 H (9-20) mg/dL Creatinine 4.62 H (0.66-1.25) mg/dL Glucose 150 H (74-99) mg/dL POC Glucose (mg/dL) 119 H 121 H (75-99) mg/dL Calcium 8.2 L (8.4-10.2) mg/dL Phosphorus (2.5-4.5) mg/dL Magnesium (1.6-2.3) mg/dL AST 653 H (17-59) U/L ALT 1146 H (4-49) U/L Alkaline Phosphatase 278 H (38-126) U/L C-Reactive Protein (<10.0) mg/L Total Protein 5.9 L (6.3-8.2) g/dL Albumin 3.0 L (3.5-5.0) g/dL 12/06/20 12/06/20 12/06/20 Range/Units 07:53 07:58 11:45 RBC 2.55 L (4.30-5.90) m/uL Hgb 8.0 L (13.0-17.5) gm/dL Hct 25.0 L (39.0-53.0) % RDW 16.3 H (11.5-15.5) % BUN (9-20) mg/dL Creatinine (0.66-1.25) mg/dL Glucose (74-99) mg/dL POC Glucose (mg/dL) 141 H (75-99) mg/dL Calcium (8.4-10.2) mg/dL Phosphorus (2.5-4.5) mg/dL Magnesium (1.6-2.3) mg/dL AST (17-59) U/L ALT (4-49) U/L Alkaline Phosphatase (38-126) U/L C-Reactive Protein 162.8 H (<10.0) mg/L Total Protein (6.3-8.2) g/dL Albumin (3.5-5.0) g/dL Microbiology - Last 24 Hours (Table) 12/03/20 14:10 Blood Culture - Preliminary Blood No Growth after 48 hours 12/03/20 14:00 Blood Culture - Preliminary Blood No Growth after 48 hours 12/04/20 10:26 Gram Stain - Preliminary Pericardial Fluid Body Fluid Culture - Preliminary Assessment and Plan Plan: 1 large pericardial effusion with secondary hypotension, shock and the patient was on pressors. Pericardial window was done and hemodynamics improved following that. The pericardial tube is currently on a medical floor, hemodynamically stable. 2 shortness of breath, no significant oxygen desaturation the patient is currently on 2 L by nasal cannula with a pulse ox of above 90% and the patient's chest x-ray still showing any acute abnormalities. The shortness of breath is improved, currently the patient is fully recovered. 3 end-stage renal disease on hemodialysis 3 times a week, last hemodialysis was yesterday 4 coronary artery disease with recent inferior wall myocardial infarction requiring angioplasty of the RCA. Cardiac stress is that was done on 11/27/2020 showed subtle dyskinesia of the mid anterior wall. Otherwise ejection fraction was within normal and there was no evidence of any reversible ischemia, and echo cardiogram that was done on 11/25/2020 showed a preserved LV function with an ejection fraction of 60-65%, maintained on a combination of aspirin and Plavix in addition to high-dose statins and Coreg 6.25 mg twice a day.. Mother the patient has a previous history of coronary stent insertion and he was taking aspirin and Plavix on outpatient basis, quit the antiplatelet agents because of cost 5 history of hypertension 6 hyperlipidemia 7 diabetes mellitus with significant hyperglycemia the time of admission with a component of mild anion gap metabolic acidosis , the DKA improved and the pat ient gap is closed and the patient is on 2.5 units an hour of insulin. This will be switched to 8 hyperkalemia, potassium level improved 9 lactic acidosis, improved 10 abnormal LFTs, consider shock liver, and contrary to above in the follow-up levels are still pending for now. 11 diabetic peripheral neuropathy and retinopathy 12 hypothyroidism 13 morbid obesity with a BMI of 48 14 history of prostate cancer 15 anemia of chronic disease, hemoglobin is stable at 8.2 16 gout 17 obstructive sleep apnea and the patient remains in a CPAP therapy Plan Pericardial tube removed Aspirin and Plavix restarted Complete hemodialysis Discharge planning is in progress and pulmonary critical care services we'll sign off We'll discontinue the insulin drip. The patient is tolerating diet. I'm going to give this patient at the lower dose of Levemir which will be 40 units daily and we'll proceed with 30 units with meals of short acting and the patient will be also given a sliding scale coverage. Insulin drip can be discontinued. Accu-Cheks every hour Hold Coreg , aspirin and Plavix, till get a clearance from the cardiothoracic team we'll keep the patient ICU for further monitoring. Nephrology consultation, dialysis was done yesterday We'll follow his condition. More stable compared to yesterday..
--- NOTE | 2020-12-06 14:56 | ECHOF ---
Referral Reason:pericardial effusion, s/p window MEASUREMENTS -------- HEIGHT: 180.3 cm WEIGHT: 161.0 kg BP: FINDINGS -------- Limited study S/P pericardial window Lumason used There is a moderate, generalized pericardial effusion present, ORGANIZED CONCLUSIONS -------- 1. Limited study S/P pericardial window OCCUPATIONAL THERAPIST HOME BASED: Bonnie Carter RDCS
[2020-12-06 16:26] LABS: Glucose,Whole Blood 148 mg/dL (75-99)
[2020-12-06 20:36] LABS: Glucose,Whole Blood 214 mg/dL (75-99)
[2020-12-06] MEDS: LEVOTHYROXINE 100 MCG TAB PO SCH (21:35)
[2020-12-07] MEDS: NOREPINEPHRINE 8 MG in SODIUM CHLORIDE 0.9% 250 ML IV SCH (02:59)
[2020-12-07] MEDS: ACETAMINOPHEN TAB 325 MG TAB PO PRN ×2 (03:21→21:16)
[2020-12-07] MEDS: HYDROcodone/APAP 10-325MG 1 EACH TAB PO PRN ×4 (06:24→23:45)
[2020-12-07 07:08] LABS: Glucose,Whole Blood 250 mg/dL (75-99)
[2020-12-07] MEDS: INSULIN ASPART (NovoLOG) 100 UNIT/ML VIAL SQ SCH ×7 (07:10→21:14)
[2020-12-07] MEDS: CLOPIDOGREL 75 MG TAB PO SCH (07:27)
[2020-12-07] MEDS: MAGNESIUM OXIDE 400 MG TAB PO SCH ×2 (07:27→21:15)
[2020-12-07] MEDS: INSULIN DETEMIR (LEVEMIR) 100 UNIT/ML SYR SQ SCH (07:27)
[2020-12-07] MEDS: ASPIRIN 81 MG PO SCH (07:28)
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
[2020-12-07 11:24] LABS: Glucose,Whole Blood 296 mg/dL (75-99)
--- NOTE | 2020-12-07 11:29 | P.PN ---
Subjective Progress Note Date: 12/07/20 Principal diagnosis: This 60-year-old male who has ESRD on dialysis Tuesday. Came in with shortness of breath and had a pericardial effusion and had a pericardial window on 12/04/2020, and is stable postop. He was dialyzed 3 days in a row and including yesterday. He does have gangrenous third fingertip likely from steal syndrome on the left hand and is under the care of vascular surgery for this. He is known with moderate obesity diabetes type 2, obstructive sleep apnea, diabetic neuropathy retinopathy prostate cancer status post radiation 2017. Postop he is doing well. He does complain of shortness of breath on exertion as well as on rest , he is on on room air. No nausea vomiting appetite is improving Objective - Vital Signs Vital signs: Vital Signs Temp 97.9 F 12/07/20 07:24 Pulse 75 12/07/20 07:24 Resp 18 12/07/20 08:00 BP 122/59 12/07/20 07:24 Pulse Ox 100 12/07/20 07:24 Intake & Output 12/06/20 12/07/20 12/07/20 18:59 06:59 18:59 Intake Total 1310 500 Output Total 1020 Balance 290 500 Weight 161.1 kg Intake: Oral 1310 500 Output: Chest Tube Drainage 20 Mediastinal 20 Hemodialysis 1000 Other: # Voids 1 ABP, PAP, CO, CI - Last Documented Arterial Blood Pressure 137/77 On exam she is awake alert oriented comfortable. HEENT exam no JVP neck is supple no facial asymmetry Lungs are clear to auscultation good air entry bilaterally Heart sounds unremarkable for any murmur rub gallop Abdomen soft obese given Extremity exam was trace edema Neurologically awake alert oriented His left middle finger has gangrenous terminal phalanx. Radial was not felt. Rest of the fingers look warm and red he has an fistula in the left upper arm - Labs CBC & Chem 7: 12/06/20 07:53 12/06/20 07:53 Labs: Abnormal Lab Results - Last 24 Hours (Table) 12/06/20 12/06/20 12/06/20 Range/Units 07:53 07:58 11:45 POC Glucose (mg/dL) 141 H (75-99) mg/dL Hemoglobin A1c 10.0 H (4.0-6.0) % C-Reactive Protein 162.8 H (<10.0) mg/L 12/06/20 12/06/20 12/07/20 Range/Units 16:24 20:35 07:06 POC Glucose (mg/dL) 148 H 214 H 250 H (75-99) mg/dL Hemoglobin A1c (4.0-6.0) % C-Reactive Protein (<10.0) mg/L Microbiology - Last 24 Hours (Table) 12/03/20 14:10 Blood Culture - Preliminary Blood No Growth after 72 hours 12/03/20 14:00 Blood Culture - Preliminary Blood No Growth after 72 hours 12/04/20 10:26 Gram Stain - Preliminary Pericardial Fluid Body Fluid Culture - Preliminary Assessment and Plan Assessment: Impression 1. ESRD on dialysis Tuesday, has been dialyzed on and Tuesday, and Tuesday yesterday 2. Admitted with shortness of breath and with pericardial tamponade status post pericardial window, dated 12/04/2020. Vital signs stable 3. Morbid obesity 4. Abnormal liver function tests improving off of statin. May be related to pericardial tamponade also. 5. His hemoglobin is 8, check iron saturation 2. anemia of chronic kidney disease rule out iron deficiency. Recommendation 1. Patient is scheduled for dialysis tomorrow, will take off 3 L as is complaining of shortness of breath 2. Check iron saturation
[2020-12-07] MEDS: CALCIUM ACETATE 667 MG TAB PO SCH ×2 (11:51→16:51)
[2020-12-07] MEDS ORDERED: MAGNESIUM HYDROXIDE 2,400 MG/10 ML CUP PO PRN ×2 (11:59→17:03)
--- NOTE | 2020-12-07 12:37 | P.PN ---
Subjective Progress Note Date: 12/07/20 The patient is a 60-year-old male who follows in the office with Dr. Liz, who presented to the hospital with worsening shortness of breath and chest discomfort. He was subsequently diagnosed with a pericardial effusion. The patient underwent pericardial window on 12/[address] Ahuja. Drainage was approximately 1 L with placement of drainage tube. Chest tube was removed on 12/06/2020. The patient was interviewed and examined sitting in the recliner chair. Just prior to my examination he had ambulated from the bed to the restroom, then back to the recliner chair. The patient states he did develop some mild shortness of breath, but quickly recovered. The nurse did check his pulse ox and provided him with 2 L of nasal cannula, however the staff states his pulse ox was within normal limits. He denies any chest pain or chest pressure, except what is localized around his chest tube site. Mild oozing noted. No dizziness or lightheadedness. The patient did undergo dialysis yesterday and states he tolerated well. GENERAL: Well-appearing, well-nourished and in no acute distress. NECK: Supple without JVD or thyromegaly. LUNGS: Breath sounds clear to auscultation bilaterally. Respiration equal and unlabored. No wheezes, rales or rhonchi. HEART: Regular rate and rhythm without murmurs, rubs or gallops. S1 and S2 heard. Chest tube dressing shows small amount of serosanguineous drainage. EXTREMITIES: Normal range of motion. Mild lower extremity swelling. No clubbing or cyanosis. Peripheral pulses intact and strong. Vital signs: Blood pressure 113/79, SpO2 99% on 2 L nasal cannula, pulse rate 81, respiratory rate 18, temperature 90.8F Laboratory data: No new laboratory data Impression: Pericardial effusion/Babar syndrome, status post pericardial window Coronary artery disease, recent stenting in October 2020 End-stage renal disease, on hemodialysis Elevated liver enzymes, statin currently on hold Plan: No additional recommendations at this time Continue to monitor liver enzymes in order to safely resume statin therapy Further recommendations based upon clinical course The patient has been seen and evaluated. Plan of care has been reviewed and agreed upon by Dr Swain. Objective - Vital Signs Vital signs: Vital Signs Temp 98 F 12/07/20 11:52 Pulse 81 12/07/20 11:52 Resp 18 12/07/20 11:52 BP 113/79 12/07/20 11:52 Pulse Ox 99 12/07/20 11:52 Intake & Output 12/06/20 12/07/20 12/07/20 18:59 06:59 18:59 Intake Total 1310 500 Output Total 1020 Balance 290 500 Weight 161.1 kg Intake: Oral 1310 500 Output: Chest Tube Drainage 20 Mediastinal 20 Hemodialysis 1000 Other: # Voids 1 ABP, PAP, CO, CI - Last Documented Arterial Blood Pressure 137/77 - Labs CBC & Chem 7: 12/06/20 07:53 12/06/20 07:53 Labs: Abnormal Lab Results - Last 24 Hours (Table) 12/06/20 12/06/20 12/06/20 Range/Units 07:53 16:24 20:35 POC Glucose (mg/dL) 148 H 214 H (75-99) mg/dL Hemoglobin A1c 10.0 H (4.0-6.0) % 12/07/20 12/07/20 Range/Units 07:06 11:22 POC Glucose (mg/dL) 250 H 296 H (75-99) mg/dL Hemoglobin A1c (4.0-6.0) % Microbiology - Last 24 Hours (Table) 12/04/20 10:26 Gram Stain - Preliminary Pericardial Fluid Body Fluid Culture - Preliminary 12/03/20 14:10 Blood Culture - Preliminary Blood No Growth after 72 hours 12/03/20 14:00 Blood Culture - Preliminary Blood No Growth after 72 hours
[2020-12-07 16:24] LABS: Glucose,Whole Blood 277 mg/dL (75-99)
[2020-12-07] MEDS ORDERED: LACTULOSE 20 GM/30 ML CUP PO PRN (17:02)
[2020-12-07] MEDS: bisacodyL 5 MG TABLET.DR PO SCH (17:10)
[2020-12-07 20:05] LABS: Glucose,Whole Blood 154 mg/dL (75-99)
[2020-12-07] MEDS: LEVOTHYROXINE 100 MCG TAB PO SCH (21:15)
[2020-12-07 21:49] VITALS: TEMP 97.9
[2020-12-08] MEDS ORDERED: INSULIN DETEMIR (LEVEMIR) 100 UNIT/ML SYR SQ SCH (07:00)
[2020-12-08 07:15] LABS: Glucose,Whole Blood 237 mg/dL (75-99)
[2020-12-08] MEDS: CALCIUM ACETATE 667 MG TAB PO SCH ×2 (07:39→12:34)
[2020-12-08] MEDS: INSULIN ASPART (NovoLOG) 100 UNIT/ML VIAL SQ SCH ×4 (07:39→12:34)
[2020-12-08] MEDS: HYDROcodone/APAP 10-325MG 1 EACH TAB PO PRN ×2 (07:40→14:02)
[2020-12-08] MEDS ORDERED: FOLIC ACID-VIT B COMPLEX-VIT C 1 CAP PO SCH (09:00)
[2020-12-08] MEDS: ASPIRIN 81 MG PO SCH (09:31)
[2020-12-08] MEDS: CLOPIDOGREL 75 MG TAB PO SCH (09:32)
[2020-12-08] MEDS: bisacodyL 5 MG TABLET.DR PO SCH (09:32)
--- NOTE | 2020-12-08 09:40 | P.DS ---
Providers Date of admission: 12/03/20 14:46 Expected date of discharge: 12/08/20 Attending physician: Cherrie May Consults: 12/03/20 14:51 Consult Physician Routine Consulting Provider: Brenden Solis Consult Reason/Comments: Critical care management Do you want consulting provider notified?: Yes 12/03/20 14:53 Consult Physician Routine Consulting Provider: Shira Hess Consult Reason/Comments: Dialysis hyperkalemia Do you want consulting provider notified?: Yes 12/04/20 11:37 Consult Physician Routine Consulting Provider: Joel Swain Consult Reason/Comments: pericardial effusion Do you want consulting provider notified?: Already Contacted 12/06/20 09:23 Consult Physician Routine Consulting Provider: Walter Levy Consult Reason/Comments: peripheral vascular disease LUE Do you want consulting provider notified?: Yes Primary care physician: [facility] Course: HISTORY OF PRESENT ILLNESS This is a 60-year-old male patient of Dr. Oshea and Dr. Liz with past medical history of end-stage renal disease on hemodialysis Tuesday, hypertension, hyperlipidemia, diabetes mellitus type 2 insulin requiring, obstructive sleep apnea, GERD, diabetic neuropathy, diabetic retinopathy, hypothyroidism TIA, morbid obesity history of prostate cancer status post radiation therapy in 2017 in remission, anemia of chronic kidney disease, generalized anxiety disorder. Patient was recently hospitalized and discharged on October 23 at which time he was treated for acute inferior wall myocardial infarction status post angioplasty of the right coronary artery. He was last admitted on 11/25/2020 secondary to chest pain, workup at that time, included an echocardiogram which showed EF of 60-65%, moderate concentric LVH, mild MR, small pericardial effusion, with consultation to nephrology and cardiology. At that time a Lexiscan stress test was done, with normal EKG response to Lexiscan, abnormal resting EKG with diffuse ST elevation, without reciprocal changes, can be seen in the setting of pericarditis, He was compliant to his dialysis, comes in now to the emergency room secondary to significant shortness of breath, he was also noted to be hypotensive during dialysis and was febrile., he denies any nausea no vomiting no diarrhea, no lightheadedness no syncope. Patient denies any melena hematochezia, denies any increased edema. In the emergency room he was very sick looking, he was given 2 L of IV fluid as he was found to be in DKA, EKG shows ST segment elevation in leads 23 and aVF, also was given a bolus of insulin, with insulin drip, he was febrile with a temperature of 100.4, there is also significant elevation of new transaminitis, Rocephin was started, and admitted to ICU with consult to GI, hepatitis panel was sent, he also has some pyuria noted on urinalysis, urine drug screen is only positive for opiates, blood sugars are over 600 when he was seen in the emergency room. Other labs were of potassium of 7.5, 6.3, and 5.5, after fluid boluses and was noted to be hemolyzed, creatinine is at 6.3, AST ALT is only new, 1897, and ALT was 1615 He was admitted to ICU, for which an echocardiogram that was completed showing a very large pericardial effusion, Dr. Ahuja from cardiothoracic surgery was consulted, patient is now undergoing a pericardial window performed on 12/04/2020. Patient remains in ICU 12/05: Patient remains in the intensive care unit. He states that he is feeling good today. He does have some minimal chest pain at the chest tube site on the right hand side. He states he ate breakfast well this morning. Patient has a chronic wound on the left middle finger which he states is from a burn and he had previously been following at the wound healing Center and was apparently discharged but then the wound worsened and he did not follow-up. The wound center consult placed and referral to Dr. Ybarra. Venous ultrasound of the left upper extremity negative for DVT. Patient has been afebrile, heart rate 74, blood pressure 115/50, pulse ox 95% on 4 L nasal cannula. WBC 10.4, hemoglobin 8.2, platelet count 263. Sodium 130, potassium 5.1, chloride 96, CO2 25, BUN 53 and creatinine 5.99. Blood sugars are running in the 200s and 300s. Pericardial fluid culture in progress. Pericardial cytology pending. Blood culture no growth at 24 hours. Patient is seen and followed by nephrology with plan for hemodialysis today. Patient is also followed by GI and patient is cleared for diet, avoid hepatotoxic medications and monitor LFTs. Acute viral hepatitis panel was negative. Ultrasound of the liver reveals fatty liver with underlying hepatomegaly. 12/06: Patient is seen today on the cardiac stepdown unit. Patient remains with right-sided chest tube in place. Patient has been seen by orthopedic with plan for amputation of the left middle finger on a later date. We will also add in consult with Dr. Wright who knows this patient regarding of peripheral vascular disease impacting the circulation to the left upper extremity. Patient denies any new complaints. No shortness of breath. He has been afebrile, heart rate 87, blood pressure 123/66, pulse ox 90% on 2 L nasal cannula. W BC 8.4, hemoglobin 8, platelet count 235. Electrolytes are normal. BUN 37 creatinine 4.62. Blood sugars running between 119 and 150 which improved from yesterday. AST 653, ALT 1146, outlined phosphatase 278. 12/07: Pericardial chest tube removed yesterday. Small amount of bleeding at the site only. Patient has been seen by Dr. Wright with plan for follow-up next week. Patient has been afebrile, heart rate 75, blood pressure 122/59, pulse ox 100% on 2 L nasal cannula. Blood sugars up and running between 141 and 250. Cytology is pending. Pericardial fluid culture is in progress. GI is currently signed off his case. Plan is for discharge home tomorrow. Overnight, patient is to increase activity and ambulate, up in a chair. Walker to be ordered on Tuesday. 12/08: Cytology report remains pending. Pericardial culture is no growth after 4 days. Patient is undergoing hemodialysis this morning. No bleeding at the chest tube site. He has been afebrile, heart rate 84, blood pressure 162/88, pulse ox 98% on 2 L nasal cannula. Blood sugars are running between 154 and 237. Patient is scheduled for discharge home today. Patient will be discharged in stable condition. ASSESSMENT AND PLAN 1. Cardiac tamponade with a large pericardial effusion, and hypotension, requiring pericardial window on 12/04/[address] Ahuja. 2. Cardiogenic shock secondary to large pericardial effusion, required vasopressors. 3. SIRS secondary to large pericardial effusion, no sign of infection. 4. Recent acute inferior wall myocardial infarction 10/20/20 status post angioplasty of the right coronary artery. 5. End-stage renal disease on hemodialysis Tuesday. 6. Severe transaminitis. 7. Hypertension. 8. Hyperlipidemia. 9. Diabetes mellitus type 2 insulin, uncontrolled with hyperglycemia. 10. Obstructive sleep apnea. 11. Gastroesophageal reflux disease. 12. Diabetes with diabetic neuropathy and diabetic retinopathy. 13. Hypothyroidism. 14. Super morbid obesity with BMI of 48. 15. History of prostate cancer status post radiation therapy in 2017 in [facility]. 16. Anemia of chronic kidney disease. 17. Chronic gout. 18. Necrotic distal left middle finger. DISCHARGE PLAN Return home, walker to be ordered on Tuesday. Impression and plan of care have been directed as dictated by the signing physician. Laine Jones nurse practitioner acting as scribe for signing physician. Plan - Discharge Summary New Discharge Prescriptions: Continue Atorvastatin [Lipitor] 40 mg PO HS Levothyroxine Sodium 100 mcg PO HS Torsemide [Demadex] 40 mg PO DAILY Bryanna-Olimpia 1 tab PO DAILY lisinopriL [Zestril] 5 mg PO BID Carvedilol [Coreg] 6.25 mg PO HS Magnebind 300mg 1 tab PO BID Allopurinol [Zyloprim] 300 mg PO HS Magnesium Hydroxide [Milk of Magnesia] 2,400 mg PO DAILY PRN PRN Reason: Constipation Aspirin 81 mg PO DAILY #90 chew Nitroglycerin Sl Tabs [Nitrostat] 0.4 mg SUBLINGUAL Q5M PRN #25 tab PRN Reason: Chest Pain Calcium Acetate [PhosLo] 1,334 mg PO TID-W/MEALS tab Clopidogrel Bisulfate [Plavix] 75 mg PO DAILY Lactulose [Cephulac] 30 gm PO DAILY PRN PRN Reason: Constipation Insulin Regular, Human [Novolin R Flexpen] 30 unit SQ AC-TID HYDROcodone/APAP 10-325MG [[place] 10-325] 1 tab PO QID PRN PRN Reason: Pain Calcium Carbonate [Tums Ultra Strength] 2,354 mg PO AC-BID PRN PRN Reason: Gi Upset Changed Insulin Detemir [Levemir Flextouch] 75 units SQ HS #0 Discharge Medication List Atorvastatin [Lipitor] 40 mg PO HS 08/07/14 [History] Levothyroxine Sodium 100 mcg PO HS 07/06/17 [History] Torsemide [Demadex] 40 mg PO DAILY 09/10/19 [History] Allopurinol [Zyloprim] 300 mg PO HS 10/20/20 [History] Carvedilol [Coreg] 6.25 mg PO HS 10/20/20 [History] Magnebind 300mg 1 tab PO BID 10/20/20 [History] Magnesium Hydroxide [Milk of Magnesia] 2,400 mg PO DAILY PRN 10/20/20 [History] Bryanna-Olimpia 1 tab PO DAILY 10/20/20 [History] lisinopriL [Zestril] 5 mg PO BID 10/20/20 [History] Aspirin 81 mg PO DAILY #90 chew 10/22/20 [Rx] Calcium Acetate [PhosLo] 1,334 mg PO TID-W/MEALS tab 10/23/20 [Rx] Nitroglycerin Sl Tabs [Nitrostat] 0.4 mg SUBLINGUAL Q5M PRN #25 tab 10/23/20 [Rx] Calcium Carbonate [Tums Ultra Strength] 2,354 mg PO AC-BID PRN 11/24/20 [History] Clopidogrel Bisulfate [Plavix] 75 mg PO DAILY 11/24/20 [History] HYDROcodone/APAP 10-325MG [[place] 10-325] 1 tab PO QID PRN 11/24/20 [History] Insulin Regular, Human [Novolin R Flexpen] 30 unit SQ AC-TID 11/24/20 [History] Lactulose [Cephulac] 30 gm PO DAILY PRN 11/24/20 [History] Insulin Detemir [Levemir Flextouch] 75 units SQ HS #0 12/08/20 [Rx] Follow up Appointment(s)/Referral(s): Marito Ahuja MD [STAFF PHYSICIAN] - 12/18/20 9:30 am (for incision check) Hayes Oshea MD [Primary Care Provider] - 1 Week Malu Liz MD [STAFF PHYSICIAN] - 12/16/20 1:15 pm Bear Ybarra DO [Doctor of Osteopathic Medicine] - 1 Week Walter Levy MD [STAFF PHYSICIAN] - 1 Week Patient Instructions/Handouts: Diabetic Ketoacidosis (DC), Pericardial Effusion (DC) Discharge Disposition: HOME SELF-CARE
[2020-12-08] MEDS ORDERED: MAGNESIUM OXIDE 400 MG TAB PO SCH (09:45)
--- NOTE | 2020-12-08 10:03 | P.PN ---
Subjective This is a pleasant 60-year-old male past medical history significant for end stage renal failure on hemodialysis, coronary artery disease s/p PCI 10/2020, hypertension, dyslipidemia, obstructive sleep apnea and diabetes mellitus. He follows in the office with Dr. Liz. He is seen and examined resting comfortably laying flat in bed just about to begin dialysis. He denies chest pain, shortness of breath, dizziness or palpitations. Blood pressure 162/88 heart rate 84 afebrile and maintaining oxygen saturation on nasal cannula. Repeat limited echo after pericardial window revealed a moderate, generalized organized effusion. Currently maintained on aspirin and plavix. GENERAL: Well-appearing, well-nourished and in no acute distress. Morbidly obese. NECK: Supple without JVD or thyromegaly. LUNGS: Breath sounds clear to auscultation bilaterally. Respiration equal and unlabored. No wheezes, rales or rhonchi. HEART: Regular rate and rhythm without murmurs, rubs or gallops. S1 and S2 heard. Chest wound clean dry and intact with no drainage noted. EXTREMITIES: Normal range of motion, no edema. No clubbing or cyanosis. Pe ripheral pulses intact. ASSESSMENT Pericardial effusion/Babar syndrome s/p pericardial window Coronary artery disease s/p recent PCI 10/2020 maintained on dual anti-platelet therapy Transaminitis, statin on hold. End stage renal disease on HD Hypertension Dyslipidemia, statin on hold due to transaminitis Diabetes mellitus PLAN Clinically stable from a cardiac perspective. Follow up in the office with Dr. Liz in 1 week and repeat echo will be discussed at that time. Nurse Practitioner note has been reviewed, I agree with a documented findings and plan of care. Patient was seen and examined. Objective - Vital Signs Vital signs: Vital Signs Temp 97.9 F 12/07/20 20:00 Pulse 84 12/08/20 04:00 Resp 18 12/08/20 04:00 BP 162/88 12/08/20 04:00 Pulse Ox 98 12/08/20 04:00 Intake & Output 12/07/20 12/08/20 12/08/20 18:59 06:59 18:59 Intake Total 1600 540 Balance 1600 540 Weight 163.7 kg Intake: Oral 1600 540 Other: # Voids 1 # Bowel Movements 0 ABP, PAP, CO, CI - Last Documented Arterial Blood Pressure 137/77 - Labs CBC & Chem 7: 12/06/20 07:53 12/06/20 07:53 Labs: Abnormal Lab Results - Last 24 Hours (Table) 12/07/20 12/07/20 12/07/20 Range/Units 11:22 16:23 20:04 POC Glucose (mg/dL) 296 H 277 H 154 H (75-99) mg/dL 12/08/20 Range/Units 07:12 POC Glucose (mg/dL) 237 H (75-99) mg/dL Microbiology - Last 24 Hours (Table) 12/03/20 14:10 Blood Culture - Preliminary Blood No Growth after 96 hours 12/03/20 14:00 Blood Culture - Preliminary Blood No Growth after 96 hours 12/04/20 10:26 Gram Stain - Preliminary Pericardial Fluid Body Fluid Culture - Preliminary
[2020-12-08 12:27] LABS: Glucose,Whole Blood 185 mg/dL (75-99)
--- NOTE | 2020-12-08 14:18 | PN ---
PROGRESS NOTE Patient is seen for followup for end-stage renal disease. He is currently seen on dialysis, tolerating his treatment well. The patient is getting an extra treatment today. He will be dialyzed again tomorrow which is his routine schedule. There are plans for possible discharge today. PHYSICAL EXAMINATION: On examination today, blood pressure was 131/60, heart rate 100 per minute. He is afebrile. Examination shows patient is mildly hypervolemic with evidence of edema of lower extremities. Abdomen is soft, obese, nontender. DERRICK BUILDER exam grossly intact. LABS: Labs show serum creatinine 4.6 yesterday, potassium 4.4 on 12/06/2020. Hemoglobin was 8.0 g/dL. ASSESSMENT: 1. End-stage renal disease, on hemodialysis on a Tuesday, , Tuesday schedule. 2. Pericardial effusion and tamponade, status post pericardial window. 3. Mild volume overload, currently improved. 4. Episode of significant hypotension and shock from pericardial tamponade. 5. Chronic kidney disease mineral bone disorder. PLAN: Patient can be discharged post dialysis today. He will follow up as outpatient for dialysis tomorrow. We will dialyze without heparin for about a week post discharge. MMODL / IJN: [id number] /
[2020-12-08 14:40] VITALS: BP 136/68; PULSE 94; RESP 18
--- NOTE | 2020-12-09 11:58 | CDI ---
Documentation Clarification Form Date: 12/09/20 From: Johnna Silva Phone: Admit Date: 12/03/2020 02:46:00 PM Patient Name: Lan Tillman Visit Number: [id number] Discharge Date: 12/08/2020 05:00:00 PM ATTENTION: The Clinical Documentation Specialists (CDI) and [facility] Coding Staff appreciate your assistance in clarifying documentation. Please respond to the clarification below the line at the bottom and electronically sign. The CDI & [facility] Coding staff will review the response and follow-up if needed. Please note: Queries are made part of the Legal Health Record. If you have any questions, please contact the author of this message via ITS. Dr. Refugio Tapia, History of heart failure is documented in the ED note, consults, H&P and numerous PNs. History/Risk Factors: cardiac tamponade, pericardial effusion, Type II DKA, ESRD w HTN and heart failure, SIRS wo infection Clinical Indicators: Presents with significant SOB and hypotension during dialysis. VS/Pulse OX: T-100.5, P-101, R-18, BP-100/73, O2-98 12/03 BNP: 2870 12/04 Echocardiogram Results: Overall left ventricular systolic function is normal with, an EF between 60 - 65 %. Chest X Ray: 12/03-cardiomegaly; 12/04-The heart is stable, chronic changes without evidence for acute pulmonary disease. Treatment: At home and sent home on Torsemide 20 mg tab (40 mg PO daily) In your professional opinion, can you please clarify the acuity and type of CHF if known? TYPE Systolic Heart Failure Diastolic Heart Failure Systolic & Diastolic Heart Failure ACUITY Acute Chronic Acute on Chronic Heart Failure Unable to Determine Other, please specify heart failure ruled out MTDD
== END 2020-12-08 17:00 | disposition home or self-care (01) | DRG 270 ==
LOC: EC 11:50 → 2SICU 14:46 → 3SCARD 12-05 23:13
PROVIDERS: ADMIT Family Medicine; ATTEND Family Medicine
PROC: 3E033XZ Introduction of Vasopressor into Peripheral Vein, Percutaneous Approach (ICD-10-PCS; 2020-12-03)
PROC: 03HY32Z Insertion of Monitoring Device into Upper Artery, Percutaneous Approach (ICD-10-PCS; 2020-12-03)
PROC: 4A133B1 Monitoring of Arterial Pressure, Peripheral, Percutaneous Approach (ICD-10-PCS; 2020-12-03)
PROC: 4A133J1 Monitoring of Arterial Pulse, Peripheral, Percutaneous Approach (ICD-10-PCS; 2020-12-03)
PROC: 5A1D70Z Performance of Urinary Filtration, Intermittent, Less than 6 Hours Per Day (ICD-10-PCS; 2020-12-04)
PROC: 5A09557 Assistance with Respiratory Ventilation, Greater than 96 Consecutive Hours, Continuous Positive Airway Pressure (ICD-10-PCS; 2020-12-04)
PROC: 0W9D00Z Drainage of Pericardial Cavity with Drainage Device, Open Approach (ICD-10-PCS; principal; 2020-12-04 08:45)
DX: I31.3 Pericardial effusion (noninflammatory) (principal); E11.10 Type 2 diabetes mellitus with ketoacidosis without coma; N18.6 End stage renal disease; K72.00 Acute and subacute hepatic failure without coma; R57.0 Cardiogenic shock; R65.10 Systemic inflammatory response syndrome (SIRS) of non-infectious origin without acute organ dysfunction; E11.52 Type 2 diabetes mellitus with diabetic peripheral angiopathy with gangrene; I12.0 Hypertensive chronic kidney disease with stage 5 chronic kidney disease or end stage renal disease; Z68.43 Body mass index [BMI] 50.0-59.9, adult; I24.1 Dressler's syndrome; I31.4 Cardiac tamponade; I95.3 Hypotension of hemodialysis; D63.1 Anemia in chronic kidney disease; E11.22 Type 2 diabetes mellitus with diabetic chronic kidney disease; E11.42 Type 2 diabetes mellitus with diabetic polyneuropathy; E11.319 Type 2 diabetes mellitus with unspecified diabetic retinopathy without macular edema; E11.622 Type 2 diabetes mellitus with other skin ulcer; L98.493 Non-pressure chronic ulcer of skin of other sites with necrosis of muscle; L98.492 Non-pressure chronic ulcer of skin of other sites with fat layer exposed; Z79.4 Long term (current) use of insulin; Z99.2 Dependence on renal dialysis; E66.01 Morbid (severe) obesity due to excess calories; Z20.822 Contact with and (suspected) exposure to COVID-19; E83.9 Disorder of mineral metabolism, unspecified; R16.0 Hepatomegaly, not elsewhere classified; E88.81 Metabolic syndrome and other insulin resistance; E78.5 Hyperlipidemia, unspecified; E87.5 Hyperkalemia; K21.9 Gastro-esophageal reflux disease without esophagitis; E03.9 Hypothyroidism, unspecified; E86.1 Hypovolemia; I25.10 Atherosclerotic heart disease of native coronary artery without angina pectoris; I34.0 Nonrheumatic mitral (valve) insufficiency; G47.33 Obstructive sleep apnea (adult) (pediatric); M54.5 Low back pain; T23.032 Burn of unspecified degree of multiple left fingers (nail), not including thumb; K76.0 Fatty (change of) liver, not elsewhere classified; H54.7 Unspecified visual loss; F41.1 Generalized anxiety disorder; I25.2 Old myocardial infarction; M1A.9XX0 Chronic gout, unspecified, without tophus (tophi); Z79.82 Long term (current) use of aspirin; Z79.02 Long term (current) use of antithrombotics/antiplatelets; Z79.890 Hormone replacement therapy; Z79.899 Other long term (current) drug therapy; Z87.891 Personal history of nicotine dependence; Z95.5 Presence of coronary angioplasty implant and graft; Z86.73 Personal history of transient ischemic attack (TIA), and cerebral infarction without residual deficits; Z90.89 Acquired absence of other organs; Z98.84 Bariatric surgery status; Z90.49 Acquired absence of other specified parts of digestive tract; Z98.42 Cataract extraction status, left eye; Z98.41 Cataract extraction status, right eye; Z96.1 Presence of intraocular lens; Z71.3 Dietary counseling and surveillance; Z85.46 Personal history of malignant neoplasm of prostate; Z92.3 Personal history of irradiation; Z87.81 Personal history of (healed) traumatic fracture; Z87.39 Personal history of other diseases of the musculoskeletal system and connective tissue; Z98.890 Other specified postprocedural states; Z82.49 Family history of ischemic heart disease and other diseases of the circulatory system; Z83.3 Family history of diabetes mellitus; Z82.0 Family history of epilepsy and other diseases of the nervous system; Z82.3 Family history of stroke
CPT/HCPCS: 36415; 71045; 71046; 76705; 80048; 80051; 80053; 80074; 80143; 80306; 80320; 81001; 82009; 82140; 82533; 82565; 82803; 82947; 83036; 83605; 83735; 83880; 84100; 84484; 84520; 85025; 85027; 85610; 85730; 86140; 86644; 86645; 86706; 86850; 86900; 86901; 87040; 87070; 87205; 87340; 87635; 88108; 88305; 89050; 90935; 93005; 93306; 93308; 96361; 96374; 96375; 99291

== ENCOUNTER 2020-12-30 04:06 | Emergency (ER) | payer MEDICARE, BC ==
[2020-12-30 04:13] LABS: Glucose,Whole Blood 110 mg/dL (75-99)
[2020-12-30 04:15] VITALS: TEMP 98
--- NOTE | 2020-12-30 04:29 | ED ---
Fall HPI - General Chief Complaint: Fall Stated Complaint: Hypoglycemia, fall Time Seen by Provider: 12/30/20 04:13 Source: patient, EMS Mode of arrival: EMS - History of Present Illness MD Complaint: fall -: minutes(s) Fall From: out of bed When Fall Occurred: just prior to arrival Fall Witnessed: no Place Fall Occurred: home Loss of Consciousness: unsure Prolonged Down Time?: no Symptoms Prior to Fall: none - Related Data Home Medications Medication Instructions Recorded Confirmed Atorvastatin [Lipitor] 40 mg PO HS 08/07/14 12/03/20 Levothyroxine Sodium 100 mcg PO HS 07/06/17 12/03/20 Torsemide [Demadex] 40 mg PO DAILY 09/10/19 12/03/20 Allopurinol [Zyloprim] 300 mg PO HS 10/20/20 12/03/20 Carvedilol [Coreg] 6.25 mg PO HS 10/20/20 12/03/20 Magnebind 300mg 1 tab PO BID 10/20/20 12/03/20 Magnesium Hydroxide [Milk of 2,400 mg PO DAILY PRN 10/20/20 12/03/20 Magnesia] Bryanna-Olimpia 1 tab PO DAILY 10/20/20 12/03/20 lisinopriL [Zestril] 5 mg PO BID 10/20/20 12/03/20 Calcium Carbonate [Tums Ultra 2,354 mg PO AC-BID PRN 11/24/20 12/03/20 Strength] Clopidogrel Bisulfate [Plavix] 75 mg PO DAILY 11/24/20 12/03/20 HYDROcodone/APAP 10-325MG [[place] 1 tab PO QID PRN 11/24/20 12/03/20 10-325] Insulin Regular, Human [Novolin R 30 unit SQ AC-TID 11/24/20 12/03/20 Flexpen] Lactulose [Cephulac] 30 gm PO DAILY PRN 11/24/20 12/03/20 Previous Rx's Medication Instructions Recorded Aspirin 81 mg PO DAILY #90 chew 10/22/20 Calcium Acetate [PhosLo] 1,334 mg PO TID-W/MEALS tab 10/23/20 Nitroglycerin Sl Tabs [Nitrostat] 0.4 mg SUBLINGUAL Q5M PRN #25 tab 10/23/20 Insulin Detemir [Levemir Flextouch] 75 units SQ HS #0 12/08/20 Allergies Allergy/AdvReac Type Severity Reaction Status Date / Time No Known Allergies Allergy Verified 12/30/20 04:15 Review of Systems ROS Statement: Those systems with pertinent positive or pertinent negative responses have been documented in the HPI. ROS Other: All systems not noted in ROS Statement are negative. Constitutional: Denies: fever, chills Eyes: Denies: eye pain, vision change ENT: Denies: epistaxis Respiratory: Denies: cough, dyspnea Cardiovascular: Denies: chest pain, palpitations Gastrointestinal: Denies: abdominal pain, vomiting, diarrhea Musculoskeletal: Denies: back pain Skin: Denies: rash Neurological: Denies: headache, weakness, numbness, confusion Past Medical History Past Medical History: Coronary Artery Disease (CAD), Cancer, Heart Failure, CVA/TIA, Diabetes Mellitus, Eye Disorder, Hypertension, Myocardial Infarction (VA), Renal Disease, Sleep Apnea/CPAP/BIPAP, Thyroid Disorder Additional Past Medical History / Comment(s): IDDM type II, neuropathy bilateral lower extremity/feet, bilateral eye diabetic retinopathy/poor vision/multiple injections, ESRD with hemodialysis T//TUE, anemia, "mini strokes" x2, AVANI with CPap use, occasional low back pain/disc disease, gout, hypothyroid Last Myocardial Infarction Date:: 10/20/20 History of Any Multi-Drug Resistant Organisms: None Reported Past Surgical History: Adenoidectomy, Bariatric Surgery, Cholecystectomy, Heart Catheterization, Heart Catheterization With Stent, Orthopedic Surgery, Tonsillectomy Additional Past Surgical History / Comment(s): 10/22/20 PCI with stents, lap banding, FX of right ankle repair pins / plate, fistual lt arm jul 2018, lt shoulder sx (d/t separation), colonoscopies, bilateral cataract removals/lens implants. Past Anesthesia/Blood Transfusion Reactions: Motion Sickness Additional Past Anesthesia/Blood Transfusion Reaction / Comment(s): CLAUSTERPHOBIA Date of Last Stent Placement:: 10/22/20 Past Psychological History: Anxiety Smoking Status: Former smoker Past Alcohol Use History: None Reported Past Drug Use History: None Reported - Past Family History Mother History Unknown: Yes Family Medical History: Coronary Artery Disease (CAD), Diabetes Mellitus, Myocardial Infarction (VA) Additional Family Medical History / Comment(s): Mother at age 58 from multiple sclerosis Father Family Medical History: CVA/TIA, Myocardial Infarction (VA) Additional Family Medical History / Comment(s): Father had history of VA and CVA followed by a second VA and CVA and at age 65. Brother(s) Additional Family Medical History / Comment(s): . General Exam Limitations: no limitations General appearance: alert, in no apparent distress Head exam: Present: atraumatic, normocephalic Eye exam: Present: normal appearance. Absent: scleral icterus, conjunctival injection ENT exam: Present: normal oropharynx Neck exam: Present: normal inspection, full ROM. Absent: tenderness Respiratory exam: Present: normal lung sounds bilaterally. Absent: respiratory distress, wheezes, rales, rhonchi, stridor Cardiovascular Exam: Present: regular rate, normal rhythm, normal heart sounds. Absent: systolic murmur, diastolic murmur, rubs, gallop GI/Abdominal exam: Present: soft. Absent: tenderness, guarding, rebound Extremities exam: Present: normal inspection, normal capillary refill. Absent: pedal edema Neurological exam: Present: alert, oriented X3, CN II-XII intact. Absent: motor sensory deficit Skin exam: Present: warm, dry, intact, normal color. Absent: rash Course Vital Signs 12/30/20 04:12 Temperature 98.0 F Pulse Rate 53 L Respiratory 18 Rate Blood Pressure 121/65 O2 Sat by Pulse 94 L Oximetry Medical Decision Making - Lab Data Lab Results 12/30/20 Range/Units 04:11 POC Glucose (mg/dL) 110 H (75-99) mg/dL POC Glu Contract Accountant ID Seema Amos Disposition Clinical Impression: Fall, Head injury Disposition: HOME SELF-CARE Condition: Good Instructions (If sedation given, give patient instructions): Fall Prevention (ED), Head Injury (ED) Is patient prescribed a controlled substance at d/c from ED?: No Referrals: Hayes Oshea MD [Primary Care Provider] - 1-2 days
--- NOTE | 2020-12-30 05:17 | CT ---
EXAM: CT Head Without Intravenous Contrast CLINICAL HISTORY: ITS.REASON CT Reason: fall injury TECHNIQUE: Axial computed tomography images of the head/brain without intravenous contrast. CTDI is 49.27 mGy and DLP is 1194.40 mGy-cm. This CT exam was performed using one or more of the following dose reduction techniques: automated exposure control, adjustment of the mA and/or kV according to patient size, and/or use of iterative reconstruction technique. COMPARISON: 05/28/2015 FINDINGS: Brain: Mild volume loss with prominent ventricles and sulci. Mild periventricular white matter low density likely reflects small vessel disease. No hemorrhage. Ventricles: See above. Bones/joints: Unremarkable. No acute fracture. Soft tissues: Mild left frontal scalp swelling Sinuses: Unremarkable as visualized. No acute sinusitis. Mastoid air cells: Unremarkable as visualized. No mastoid effusion. Orbits: Interval bilateral cataract surgery and intraocular lens placement. IMPRESSION: No evidence of acute intracranial abnormality or skull fracture.
[2020-12-30 05:58] VITALS: BP 140/67; PULSE 80; RESP 16
== END 2020-12-30 05:58 | disposition home or self-care (01) ==
LOC: EC 04:06
DX: S09.90XA Unspecified injury of head, initial encounter (principal); I25.10 Atherosclerotic heart disease of native coronary artery without angina pectoris; I25.2 Old myocardial infarction; G47.30 Sleep apnea, unspecified; E11.40 Type 2 diabetes mellitus with diabetic neuropathy, unspecified; E11.319 Type 2 diabetes mellitus with unspecified diabetic retinopathy without macular edema; I12.0 Hypertensive chronic kidney disease with stage 5 chronic kidney disease or end stage renal disease; E03.9 Hypothyroidism, unspecified; Z79.890 Hormone replacement therapy; Z79.02 Long term (current) use of antithrombotics/antiplatelets; Z79.899 Other long term (current) drug therapy; Z98.84 Bariatric surgery status; Z95.5 Presence of coronary angioplasty implant and graft; Z86.73 Personal history of transient ischemic attack (TIA), and cerebral infarction without residual deficits; Z87.891 Personal history of nicotine dependence; W06.XXXA Fall from bed, initial encounter
CPT/HCPCS: 36415; 70450; 99284

== ENCOUNTER 2021-02-05 11:13 | Inpatient (IN) | payer MEDICARE, BC ==
[2021-02-05] MEDS ORDERED: NITROGLYCERIN OINT 1 INCH/GM PACKET TOPICAL STA (11:38)
[2021-02-05] MEDS ORDERED: ASPIRIN 81 MG PO STA (11:38)
--- NOTE | 2021-02-05 11:42 | ED ---
General Adult HPI - General Chief complaint: Shortness of Breath Stated complaint: chest pain Time Seen by Provider: 02/05/21 11:22 Source: patient, family, RN notes reviewed Mode of arrival: wheelchair Limitations: no limitations - History of Present Illness Initial comments: Patient is a pleasant 60-year-old male presenting to emergency Department with complaints of chest discomfort and dyspnea. Onset of symptoms was yesterday. Discomfort feels heavy and is moderate. Dyspnea is somewhat worse than chest discomfort. No cough. Patient did do dialysis today without improvement of symptoms. Patient does have history of similar symptoms previously associated with cardiac disease. Patient describes also what appears to be pericardial effusion. No leg pain or leg swelling. Blood sugar and blood pressure have been stable recently. - Related Data Home Medications Medication Instructions Recorded Confirmed Atorvastatin [Lipitor] 40 mg PO HS 08/07/14 02/05/21 Levothyroxine Sodium 100 mcg PO HS 07/06/17 02/05/21 Torsemide [Demadex] 40 mg PO DAILY 09/10/19 02/05/21 Allopurinol [Zyloprim] 300 mg PO HS 10/20/20 02/05/21 Carvedilol [Coreg] 6.25 mg PO HS 10/20/20 02/05/21 Bryanna-Olimpia 1 tab PO DAILY 10/20/20 02/05/21 Clopidogrel Bisulfate [Plavix] 75 mg PO DAILY 11/24/20 02/05/21 HYDROcodone/APAP 10-325MG [[place] 1 tab PO QID PRN 11/24/20 02/05/21 10-325] Insulin Regular, Human [Novolin R 30 unit SQ ACHS 11/24/20 02/05/21 Flexpen] Lactulose [Cephulac] 30 gm PO DAILY PRN 11/24/20 02/05/21 Insulin Detemir [Levemir Flextouch] 60 units SQ HS 02/05/21 02/05/21 Previous Rx's Medication Instructions Recorded Aspirin 81 mg PO DAILY #90 chew 10/22/20 Calcium Acetate [PhosLo] 1,334 mg PO TID-W/MEALS tab 10/23/20 Nitroglycerin Sl Tabs [Nitrostat] 0.4 mg SUBLINGUAL Q5M PRN #25 tab 10/23/20 Allergies Allergy/AdvReac Type Severity Reaction Status Date / Time No Known Allergies Allergy Verified 02/05/21 11:53 Review of Systems ROS Statement: Those systems with pertinent positive or pertinent negative responses have been documented in the HPI. ROS Other: All systems not noted in ROS Statement are negative. Constitutional: Denies: fever Eyes: Denies: eye pain ENT: Denies: ear pain Respiratory: Reports: as per HPI, dyspnea Cardiovascular: Reports: as per HPI, chest pain Endocrine: Denies: fatigue Gastrointestinal: Denies: abdominal pain Genitourinary: Denies: urgency Musculoskeletal: Denies: back pain Skin: Denies: rash Neurological: Denies: weakness Past Medical History Past Medical History: Coronary Artery Disease (CAD), Cancer, Heart Failure, CVA/TIA, Diabetes Mellitus, Eye Disorder, Hypertension, Myocardial Infarction ([place]), Renal Disease, Sleep Apnea/CPAP/BIPAP, Thyroid Disorder Additional Past Medical History / Comment(s): IDDM type II, neuropathy bilateral lower extremity/feet, bilateral eye diabetic retinopathy/poor vision/multiple injections, ESRD with hemodialysis T//TUE, anemia, "mini strokes" x2, AVANI with CPap use, occasional low back pain/disc disease, gout, hypothyroid, pt recieved ethology covid 19 vaccine. Last Myocardial Infarction Date:: 10/20/20 History of Any Multi-Drug Resistant Organisms: None Reported Past Surgical History: Adenoidectomy, Bariatric Surgery, Cholecystectomy, Heart Catheterization, Heart Catheterization With Stent, Orthopedic Surgery, Tonsillectomy Additional Past Surgical History / Comment(s): 10/22/20 PCI with stents, lap banding, FX of right ankle repair pins / plate, fistual lt arm jul 2018, lt shoulder sx (d/t separation), colonoscopies, bilateral cataract removals/lens implants. Past Anesthesia/Blood Transfusion Reactions: Motion Sickness Additional Past Anesthesia/Blood Transfusion Reaction / Comment(s): CLAUSTERPHOBIA Date of Last Stent Placement:: 10/22/20 Past Psychological History: Anxiety Smoking Status: Former smoker Past Alcohol Use History: None Reported Past Drug Use History: None Reported - Past Family History Mother History Unknown: Yes Family Medical History: Coronary Artery Disease (CAD), Diabetes Mellitus, Myocardial Infarction (UT) Additional Family Medical History / Comment(s): Mother at age 58 from multiple sclerosis Father Family Medical History: CVA/TIA, Myocardial Infarction (UT) Additional Family Medical History / Comment(s): Father had history of UT and CVA followed by a second UT and CVA and at age 65. Brother(s) Additional Family Medical History / Comment(s): . General Exam Limitations: no limitations General appearance: alert, in no apparent distress Head exam: Present: normocephalic Eye exam: Present: normal appearance Neck exam: Present: normal inspection Respiratory exam: Present: decreased breath sounds Cardiovascular Exam: Present: regular rate, normal rhythm, normal heart sounds Expanded Peripheral pulses: 2+: Radial (R), Radial (L), Dorsalis Pedis (R), Dorsalis Pedis (L) GI/Abdominal exam: Present: soft. Absent: tenderness Extremities exam: Present: normal inspection. Absent: pedal edema, calf tenderness Back exam: Present: normal inspection Neurological exam: Present: alert Psychiatric exam: Present: normal affect, normal mood Skin exam: Present: normal color Course Vital Signs 02/05/21 02/05/21 11:15 12:29 Temperature 99.0 F Pulse Rate 104 H 92 Respiratory 18 18 Rate Blood Pressure 147/71 138/68 O2 Sat by Pulse 97 98 Oximetry - Reevaluation(s) Reevaluation #1: 02/05/21 12:53 [place] was discussed with nephrology, Dr. Dove who is okay with computed tomography scan. EKG Findings - EKG Comments: EKG Findings:: Sinus tachycardia 101. Premature complexes present. CA 136. QRS 86. QT 348. QTC 451. Normal axis. Normal QRS. No acute ST change. Medical Decision Making - Medical Decision Making Patient reevaluated. Patient and family updated. Case discussed with Dr. Jimenez, who will admit covering [place] - Lab Data Result diagrams: 02/05/21 11:54 02/05/21 11:54 Lab Results 02/05/21 02/05/21 02/05/21 Range/Units 11:54 11:54 11:54 WBC 14.0 H (3.8-10.6) k/uL RBC 3.27 L (4.30-5.90) m/uL Hgb 9.8 L D (13.0-17.5) gm/dL Hct 30.9 L (39.0-53.0) % MCV 94.4 (80.0-100.0) fL MCH 29.9 (25.0-35.0) pg MCHC 31.6 (31.0-37.0) g/dL RDW 17.1 H (11.5-15.5) % Plt Count 341 (150-450) k/uL MPV 6.6 Neutrophils % 85 % Lymphocytes % 7 % Monocytes % 4 % Eosinophils % 1 % Basophils % 0 % Neutrophils # 12.0 H (1.3-7.7) k/uL Lymphocytes # 1.0 (1.0-4.8) k/uL Monocytes # 0.6 (0-1.0) k/uL Eosinophils # 0.2 (0-0.7) k/uL Basophils # 0.1 (0-0.2) k/uL Hypochromasia Slight Poikilocytosis Slight Anisocytosis Slight PT 10.2 (9.0-12.0) sec INR 0.9 (<1.2) APTT 26.4 (22.0-30.0) sec D-Dimer 5.29 H (<0.60) mg/L FEU Sodium 136 L (137-145) mmol/L Potassium 4.0 (3.5-5.1) mmol/L Chloride 91 L (98-107) mmol/L Carbon Dioxide 34 H (22-30) mmol/L Anion Gap 11 mmol/L BUN 19 (9-20) mg/dL Creatinine 2.89 H (0.66-1.25) mg/dL Est GFR (CKD-EPI)AfAm 26 (>60 ml/min/1.73 sqM) Est GFR (CKD-EPI)NonAf 23 (>60 ml/min/1.73 sqM) Glucose 194 H (74-99) mg/dL Plasma Lactic Acid Oscar (0.7-2.0) mmol/L Calcium 9.3 (8.4-10.2) mg/dL Total Bilirubin 0.3 (0.2-1.3) mg/dL AST 30 (17-59) U/L ALT 33 (4-49) U/L Alkaline Phosphatase 116 (38-126) U/L Troponin I (0.000-0.034) ng/mL NT-Pro-B Natriuret Pep pg/mL Total Protein 7.3 (6.3-8.2) g/dL Albumin 3.8 (3.5-5.0) g/dL 02/05/21 02/05/21 02/05/21 Range/Units 11:54 11:54 11:54 WBC (3.8-10.6) k/uL RBC (4.30-5.90) m/uL Hgb (13.0-17.5) gm/dL Hct (39.0-53.0) % MCV (80.0-100.0) fL MCH (25.0-35.0) pg MCHC (31.0-37.0) g/dL RDW (11.5-15.5) % Plt Count (150-450) k/uL MPV Neutrophils % % Lymphocytes % % Monocytes % % Eosinophils % % Basophils % % Neutrophils # (1.3-7.7) k/uL Lymphocytes # (1.0-4.8) k/uL Monocytes # (0-1.0) k/uL Eosinophils # (0-0.7) k/uL Basophils # (0-0.2) k/uL Hypochromasia Poikilocytosis Anisocytosis PT (9.0-12.0) sec INR (<1.2) APTT (22.0-30.0) sec D-Dimer (<0.60) mg/L FEU Sodium (137-145) mmol/L Potassium (3.5-5.1) mmol/L Chloride (98-107) mmol/L Carbon Dioxide (22-30) mmol/L Anion Gap mmol/L BUN (9-20) mg/dL Creatinine (0.66-1.25) mg/dL Est GFR (CKD-EPI)AfAm (>60 ml/min/1.73 sqM) Est GFR (CKD-EPI)NonAf (>60 ml/min/1.73 sqM) Glucose (74-99) mg/dL Plasma Lactic Acid Oscar 1.3 (0.7-2.0) mmol/L Calcium (8.4-10.2) mg/dL Total Bilirubin (0.2-1.3) mg/dL AST (17-59) U/L ALT (4-49) U/L Alkaline Phosphatase (38-126) U/L Troponin I <0.012 (0.000-0.034) ng/mL NT-Pro-B Natriuret Pep 4940 pg/mL Total Protein (6.3-8.2) g/dL Albumin (3.5-5.0) g/dL - Radiology Data Radiology results: report reviewed (Computed tomography scan shows no pulmonary embolism. Small 2 tiny pericardial effusion. [id number] left pleural effusion with atelectasis. Tiny right pleural effusion.), image reviewed (Chest x-ray shows cardiomegaly and small to moderate bilateral pleural effusions.) Disposition Clinical Impression: Congestive heart failure, Chest pain Disposition: ADMITTED IP TO THIS HOSP Is patient prescribed a controlled substance at d/c from ED?: No Referrals: Hayes Oshea MD [Primary Care Provider] - 1-2 days Decision Time: 14:58
[2021-02-05 12:19] LABS: Albumin 3.8 g/dL (3.5-5.0); Calcium 9.3 mg/dL (8.4-10.2); Total Bilirubin 0.3 mg/dL (0.2-1.3); Total Protein 7.3 g/dL (6.3-8.2)
[2021-02-05 12:20] LABS: Anisocytosis Slight; Basophils # (A) 0.1 k/uL (0-0.2); Basophils % (A) 0 %; Eosinophils # (A) 0.2 k/uL (0-0.7); Eosinophils % (A) 1 %; HCT 30.9 % (39.0-53.0); Hypochromasia Slight; Lymphocytes % (A) 7 %; MCH 29.9 pg (25.0-35.0); MCHC 31.6 g/dL (31.0-37.0); MCV 94.4 fL (80.0-100.0); Mean Platelet Volume 6.6; Monocytes # (A) 0.6 k/uL (0-1.0); Monocytes % (A) 4 %; Neutrophils % (A) 85 %; Platelet Count 341 k/uL (150-450); Poikilocytosis Slight; RBC 3.27 m/uL (4.30-5.90); RDW 17.1 % (11.5-15.5)
[2021-02-05 12:23] LABS: HGB 9.8 gm/dL (13.0-17.5)
--- NOTE | 2021-02-05 12:32 | XR ---
EXAMINATION TYPE: XR chest 2V DATE OF EXAM: 02/05/2021 COMPARISON: 12/04/2020 HISTORY: 60-year-old male with difficulty breathing TECHNIQUE: Frontal and lateral views of the chest are obtained. FINDINGS: Heart size is grossly enlarged, stable. There are [id number] bilateral pleural effu sions, left greater than right. Mild bibasilar atelectasis or developing pneumonia. Degenerative castrejon ges of the thoracic spine. IMPRESSION: 1. Cardiomegaly and small to moderate bilateral pleural effusions, left greater than right. Bibasilar airspace opacities suggestive of atelectasis or developing pneumonia.
[2021-02-05 12:38] LABS: INR 0.9 (<1.2); Partial Thromboplastin Time 26.4 sec (22.0-30.0); Prothrombin Time 10.2 sec (9.0-12.0)
[2021-02-05 12:43] LABS: D-Dimer 5.29 mg/L FEU (<0.60)
--- NOTE | 2021-02-05 14:50 | CT ---
EXAMINATION TYPE: CT angio chest DATE OF EXAM: 02/05/2021 1:58 PM COMPARISON: Chest x-ray earlier today HISTORY: Chest pain and difficulty in breathing. Currently on dialysis. CT DLP: 867 mGycm Automated exposure control for dose reduction was used. CONTRAST: CTA scan of the thorax is performed with IV Contrast, patient injected with 80 mL of Isovue 370, pulm onary embolism protocol. MIP images are created and reviewed. FINDINGS: LUNGS: Tiny right-sided pleural effusion. Small to moderate size left pleural effusion with associate d compressive atelectasis. No pneumothorax seen bilaterally. MEDIASTINUM: There is satisfactory enhancement of the pulmonary artery and its branches, there is no CT evidence for pulmonary embolism. Satisfactory enhancement of the aorta without aneurysm or dissect ion. There are no greater than 1 cm hilar or mediastinal lymph nodes. Small to tiny surrounding peric ardial effusion is seen. No cardiomegaly. Fairly severe three-vessel coronary artery calcification. OTHER: Lap band device satisfactory in position just below diaphragm. Moderate multilevel spurring i n the spine. IMPRESSION: 1. No CT evidence for acute pulmonary embolism. 2. Small to tiny sized pericardial effusion. 3. Small to moderate size left pleural effusion. Associated left lung compressive atelectasis. Tiny r ight pleural effusion.
[2021-02-05] MEDS ORDERED: HYDROcodone/APAP 10-325MG 1 EACH TAB PO ONE (14:57)
[2021-02-05] MEDS ORDERED: ASPIRIN 325 MG TAB PO STA (14:58)
[2021-02-05] MEDS: FUROSEMIDE 10 MG/ML 4 ML VIAL IV SCH ×2 (15:21→22:33)
[2021-02-05] MEDS: NITROGLYCERIN OINT 1 INCH/GM PACKET TOPICAL SCH ×3 (15:21→22:22)
[2021-02-05] MEDS ORDERED: LACTULOSE 20 GM/30 ML CUP PO PRN (18:16)
[2021-02-05] MEDS ORDERED: NITROGLYCERIN SL TABS 0.4 MG TAB SUBLINGUAL PRN (18:16)
[2021-02-05] MEDS: LEVOTHYROXINE 100 MCG TAB PO SCH (20:20)
[2021-02-05] MEDS: carvediloL 6.25 MG TAB PO SCH (20:20)
[2021-02-05] MEDS: allopurinoL 300 MG TAB PO SCH (20:20)
[2021-02-05] MEDS: ATORVASTATIN 40 MG TAB PO SCH (20:20)
[2021-02-05 20:25] LABS: Glucose,Whole Blood 313 mg/dL (75-99)
[2021-02-05] MEDS: INSULIN DETEMIR (LEVEMIR) 100 UNIT/ML SYR SQ SCH (21:05)
[2021-02-05] MEDS: INSULIN REGULAR 100 UNIT/ML VIAL SQ SCH (21:09)
--- NOTE | 2021-02-05 21:36 | P.HPIM ---
History of Present Illness H&P Date: 02/05/21 Chief Complaint: Shortness of breath and dyspnea, CHF exacerbation, advance cardiac disease HISTORY OF PRESENT ILLNESS: 60-year-old morbidly obese male one of Dr. Oshea patient with past medical history of type 2 diabetes on insulin, end-stage renal disease on hemodialysis 3 times a week who was diagnosed back in October this year with ischemic heart disease ended up having 2 stents placement at the time. Presented to the emergency department again 6 weeks later with chest pain had a stress test and echo did not show any major abnormality 11 days later he came back with extremely short of breath and dyspnea found to have significant cardiac effusion and ended up having to go for pericardial window was in the hospital for a period of time and recovered nicely afterward. Patient continued see cardiology and pulmonary along with nephrology regular basis. Patient presented to the emergency department at [facility] today complaining of chest discomfort and dyspnea worsening symptoms since yesterday with heaviness and significant dyspnea with minimal exertion did not have any cough or wheezes despite doing dialysis today symptom did not get improved continue to have much worsening symptom with exertion limiting his function quite bed. Patient ended up coming to [facility] was seen and evaluated found to have slight congestive heart failure mostly systolic dysfunction with pericardial effusion and pleural effusion as well. His labs showed slightly elevated white blood cell with hemoglobin down to 9.8 his d-dimer was elevated patient ended up going for CTA which showed no evidence of pulmonary embolism but small to tiny size pericardial effusion and small to moderate size of left pleural effusion associated with left lung compression atelectasis and tiny right pleural effusion. Creatinine was 2.89 patient is on hemodialysis electrolyte imbalance was normal patient had troponin less than 0.012 with normal liver function test. COVID PCR test was negative, BNP was 4940. Patient will be admitted to the hospital will consult nephrology for dialysis also consult cardiology CK with troponin 3 will be done patient will go for another echocardiogram adjust his medication treat his congestive heart failure and if there is any spike on troponin patient might need further intervention. REVIEW OF SYSTEMS: Constitutional: No fever, no chills, no night sweats. No weight change. No weakness, fatigue or lethargy. No daytime sleepiness. Morbidly obese does not look in any respiratory distress EENT: No headache. No blurred vision or double vision, no loss of vision. No loss of Hearing, no ringing in the ears, no dizziness. No nasal drainage or congestion. No epistaxis. No sore throat. Lungs: Significant shortness of breath with mild cough and wheezes. Cardiovascular: Positive chest pain, positive PND orthopnea palpitation with worsening fluid retention, worsening symptom with exertion and worsening exertional shortness of breath.. Abdominal: No abdominal pain. No nausea, vomiting. No diarrhea. No constipation. No bloody or tarry stools.. No loss of appetite. Genitourinary: No dysuria, increased frequency, urgency. No urinary retention. End-stage renal disease on hemodialysis Musculoskeletal: No myalgias. No muscle weakness, no gait dysfunction, no frequent falls. Positive lower back pain with slight arthritic pain and mild edema.. Integumentary: No wounds, no lesions. No rash or pruritus. No unusual bruising. No change in hair or nails. Neurologic: No aphasia. No facial droop. No change in mentation. No head injury. No headache. No paralysis. No paresthesia. Psychiatric: No depression. No anxiety. No mood swings. Endocrine: No abnormal blood sugars. No weight change. No excessive sweating or thirst. No cold intolerance. SOCIAL HISTORY Patient is a former smoker who quit few month ago he smoked for many years, l ikely abuse, no drug use. Patient is on disability on hemodialysis 3 times a week. FAMILY HISTORY His mother age 58 from multiple sclerosis, father dying at age 65 from myocardial infarction and stroke PHYSICAL EXAMINATION Gen: This is a morbidly obese laying in bed with his head slightly but up no acute respiratory distress. HEENT: Head is atraumatic, normocephalic. Pupils equal, round. Sclerae is anicteric. NECK: Supple. No JVD. No lymphadenopathy. No thyromegaly. LUNGS: Decreased breath sounds especially in the left side with fine rhonchi in the right base with mild crackles. HEART: Regular rhythm and rate S1-S2 positive S3 positive JVD.. ABDOMEN: Soft. Positive Bowel sounds . No masses. No tenderness. EXTREMITIES: 1+ edema with slight discoloration from the knee down decreased pulse and dorsalis pedis posterior tibial. NEUROLOGICAL: Patient is awake, alert and oriented x3. Cranial nerves 2 through 12 are grossly intact. ASSESSMENT AND PLAN 1 atypical chest pain: With significant history of coronary artery disease post angioplasty and stent placement with known blockage, patient be hospitalized continue to do CK with troponin 3, continue antiplatelet agent at this point continue patient on nitro will consult cardiology if any elevated CK with troponin patient might need intervention if not echocardiogram and continue conservative management. 2 severe dyspnea and shortness of breath: Combination of congestive heart failure along with slight pleural effusion and still tiny pericardial effusion and all affected by his cardiac disease along with his end-stage renal disease see if repeat echocardiogram showed any worsening pericardial effusion as for the CTA showed slight pleural effusion in the left side more than the right which will continue to treat patient with diuretics along with dialysis. 3 worsening congestive heart failure: Most likely systolic dysfunction with di astolic component as well echocardiogram from November 25 showed ejection fraction of 60-65 percentile with small pericardial effusion and more diastolic pattern of heart failure at the time. Diuretics will be done we will ask nephrology to see if removing more fluid with hemodialysis can be good option patient will watch his fluid intake and salt intake as well. 4 end-stage renal disease on hemodialysis 3 times a week consult nephrology. 5 type 2 diabetes on insulin continue patient on Levemir 6 units at bedtime along with Humulin R 50 units a CHS Accu-Chek with sliding scales coverage will be done. 7 hypothyroidism: Continue patient on levothyroxine 50 g daily. 8 anasarca and chronic edema combination of kidney failure along with diastolic heart failure patient has been on torsemide 40 mg daily continue medication watch patient's weight twice a week. 9 hyperlipidemia: Continue patient on atorvastatin 40 mg daily. 10 known cardiovascular heart disease: Post angioplasty and stent placement back in October 2020. 11 history of gout: Has been on Zyloprim 300 mg every other day. 12 DVT prophylaxis: Early mobilization along with heparin subcutaneous. 13 GI prophylaxis: Patient will be on Protonix 40 mg daily. 12 CODE STATUS: Full code 13. COVID-19 testing, was negative Patient will be admitted to the hospital for a minimum of 2 night stay. Past Medical History Past Medical History: Coronary Artery Disease (CAD), Cancer, Heart Failure, CVA/TIA, Diabetes Mellitus, Eye Disorder, Hypertension, Myocardial Infarction (ND), Renal Disease, Sleep Apnea/CPAP/BIPAP, Thyroid Disorder Additional Past Medical History / Comment(s): IDDM type II, neuropathy bilateral lower extremity/feet, bilateral eye diabetic retinopathy/poor vision/multiple injections, ESRD with hemodialysis T/TH/TUE, anemia, "mini strokes" x2, AVANI with CPap use, occasional low back pain/disc disease, gout, hypothyroid, pt recieved pfizer covid 19 vaccine. Last Myocardial Infarction Date:: 10/20/20 History of Any Multi-Drug Resistant Organisms: None Reported Past Surgical History: Adenoidectomy, Bariatric Surgery, Cholecystectomy, Heart Catheterization, Heart Catheterization With Stent, Orthopedic Surgery, Tonsillectomy Additional Past Surgical History / Comment(s): 10/22/20 PCI with stents, lap banding, FX of right ankle repair pins / plate, fistual lt arm jul 2018, lt shoulder sx (d/t separation), colonoscopies, bilateral cataract removals/lens implants. Past Anesthesia/Blood Transfusion Reactions: Motion Sickness Additional Past Anesthesia/Blood Transfusion Reaction / Comment(s): CLAUSTERPHOBIA Date of Last Stent Placement:: 10/22/20 Past Psychological History: Anxiety Smoking Status: Former smoker Past Alcohol Use History: None Reported Past Drug Use History: None Reported - Past Family History Mother History Unknown: Yes Family Medical History: Coronary Artery Disease (CAD), Diabetes Mellitus, Myocardial Infarction (ND) Additional Family Medical History / Comment(s): Mother at age 58 from multiple sclerosis Father Family Medical History: CVA/TIA, Myocardial Infarction (ND) Additional Family Medical History / Comment(s): Father had history of ND and CVA followed by a second ND and CVA and at age 65. Brother(s) Additional Family Medical History / Comment(s): . Medications and Allergies Home Medications Medication Instructions Recorded Confirmed Type Atorvastatin [Lipitor] 40 mg PO HS 08/07/14 02/05/21 History Levothyroxine Sodium 100 mcg PO HS 07/06/17 02/05/21 History Torsemide [Demadex] 40 mg PO DAILY 09/10/19 02/05/21 History Allopurinol [Zyloprim] 300 mg PO HS 10/20/20 02/05/21 History Carvedilol [Coreg] 6.25 mg PO HS 10/20/20 02/05/21 History Braynna-Olimpia 1 tab PO DAILY 10/20/20 02/05/21 History Aspirin 81 mg PO DAILY #90 chew 10/22/20 02/05/21 Rx Calcium Acetate [PhosLo] 1,334 mg PO TID-W/MEALS tab 10/23/20 02/05/21 Rx Nitroglycerin Sl Tabs [Nitrostat] 0.4 mg SUBLINGUAL Q5M PRN #25 tab 10/23/20 02/05/21 Rx Clopidogrel Bisulfate [Plavix] 75 mg PO DAILY 11/24/20 02/05/21 History HYDROcodone/APAP 10-325MG [[place] 1 tab PO QID PRN 11/24/20 02/05/21 History 10-325] Insulin Regular, Human [Novolin R 30 unit SQ ACHS 11/24/20 02/05/21 History Flexpen] Lactulose [Cephulac] 30 gm PO DAILY PRN 11/24/20 02/05/21 History Insulin Detemir [Levemir Flextouch] 60 units SQ HS 02/05/21 02/05/21 History Allergies Allergy/AdvReac Type Severity Reaction Status Date / Time No Known Allergies Allergy Verified 02/05/21 11:53 Physical Exam Vitals: Vital Signs Temp Pulse Resp BP Pulse Ox 02/05/21 15:09 86 18 127/62 97 02/05/21 12:29 92 18 138/68 98 02/05/21 11:15 99.0 F 104 H 18 147/71 97 Intake and Output 02/05/21 02/05/21 02/05/21 06:59 14:59 22:59 Other: Weight 149.685 kg Results CBC & Chem 7: 02/05/21 11:54 02/05/21 11:54 Labs: Abnormal Lab Results - Last 24 Hours (Table) 02/05/21 02/05/21 02/05/21 Range/Units 11:54 11:54 11:54 WBC 14.0 H (3.8-10.6) k/uL RBC 3.27 L (4.30-5.90) m/uL Hgb 9.8 L D (13.0-17.5) gm/dL Hct 30.9 L (39.0-53.0) % RDW 17.1 H (11.5-15.5) % Neutrophils # 12.0 H (1.3-7.7) k/uL D-Dimer 5.29 H (<0.60) mg/L FEU Sodium 136 L (137-145) mmol/L Chloride 91 L (98-107) mmol/L Carbon Dioxide 34 H (22-30) mmol/L Creatinine 2.89 H (0.66-1.25) mg/dL Glucose 194 H (74-99) mg/dL
[2021-02-05 21:58] LABS: Glucose,Whole Blood 361 mg/dL (75-99)
[2021-02-05] MEDS: HYDROcodone/APAP 10-325MG 1 EACH TAB PO PRN (22:32)
[2021-02-06] MEDS: HYDROcodone/APAP 10-325MG 1 EACH TAB PO PRN ×3 (04:32→20:53)
[2021-02-06 06:08] LABS: Glucose,Whole Blood 123 mg/dL (75-99)
[2021-02-06] MEDS: INSULIN ASPART (NovoLOG) 100 UNIT/ML VIAL SQ SCH ×4 (06:14→20:51)
[2021-02-06] MEDS: CALCIUM ACETATE 667 MG TAB PO SCH ×3 (06:30→17:46)
[2021-02-06] MEDS: PANTOPRAZOLE 40 MG TABLET PO SCH (06:30)
[2021-02-06] MEDS: FUROSEMIDE 10 MG/ML 4 ML VIAL IV SCH ×3 (06:30→23:17)
[2021-02-06] MEDS ORDERED: TORSEMIDE 20 MG TAB PO SCH (09:00)
--- NOTE | 2021-02-06 09:28 | US ---
EXAMINATION TYPE: US chest DATE OF EXAM: 02/06/2021 COMPARISON: CT CLINICAL HISTORY: b/l effusions. TECHNIQUE: Targeted ultrasound of the posterior lower bilateral hemithoraces EXAM MEASUREMENTS: Right Pleural Effusion pocket size: 3.3 cm Right skin surface to fluid distance: 3.9 cm Left Pleural Effusion pocket size: 2.0 cm Left skin surface to fluid distance: 5.1 cm Right side marked for possible thoracentesis outside the dept. Left side marked for possible thoracentesis outside the dept. Pulmonologists are able to review the images in the patient?s EMR. Small bilateral pleural effusions. IMPRESSIONS: Due to body habitus and small size of effusions on ultrasound, thoracentesis likely is n ot warranted. Pleural effusion on left appears more prominent on recent CT versus ultrasound images s aved.
[2021-02-06 09:44] LABS: Glucose,Whole Blood 131 mg/dL (75-99)
--- NOTE | 2021-02-06 10:00 | P.NPCON ---
History of Present Illness - Reason for Consult end stage renal disease - History of Present Illness Reason for consultation: End-stage renal disease History of present illness: Patient is a 60-year-old male seen in renal consultation for end-stage renal disease. He is maintained on hemodialysis on Tuesday schedule. Patient presented to the hospital with chest discomfort as well as s hortness of breath. Patient states the symptoms began about 2-3 days ago. He underwent CTA which revealed no evidence of pulmonary embolism. Small pericardial effusion was present. Pleural effusions were noted as well. Chest ultrasound revealed small bilateral pleural effusions. Denies fever or chills. No vomiting or diarrhea. Oral intake is good. Afebrile. Admits to sinus congestion. Last hemodialysis was yesterday. He tested negative for coronavirus. Vital signs are stable. General: The patient appeared well nourished and normally developed. HEENT: Head exam is unremarkable. Neck is without jugular venous distension. LUNGS: Breath sounds decreased. HEART: Rate and Rhythm are regular. ABDOMEN: Soft, obese. No distention. EXTREMITITES: No edema. Past Medical History Past Medical History: Coronary Artery Disease (CAD), Cancer, Heart Failure, CVA/TIA, Diabetes Mellitus, Eye Disorder, Hypertension, Myocardial Infarction (NV), Renal Disease, Sleep Apnea/CPAP/BIPAP, Thyroid Disorder Additional Past Medical History / Comment(s): IDDM type II, neuropathy bilateral lower extremity/feet, bilateral eye diabetic retinopathy/poor vision/multiple injections, ESRD with hemodialysis T//TUE, anemia, "mini strokes" x2, AVANI with CPap use, occasional low back pain/disc disease, gout, hypothyroid, pt recieved pfizer covid 19 vaccine. zpt. had 2 stents placed after NV. Last Myocardial Infarction Date:: 10/20/20 History of Any Multi-Drug Resistant Organisms: None Reported Past Surgical History: Adenoidectomy, Bariatric Surgery, Cholecystectomy, Heart Catheterization, Heart Catheterization With Stent, Orthopedic Surgery, Tonsillectomy Additional Past Surgical History / Comment(s): 10/22/20 PCI with stents, lap ba nding, FX of right ankle repair pins / plate, fistual lt arm jul 2018, lt shoulder sx (d/t separation), colonoscopies, bilateral cataract removals/lens implants. Past Anesthesia/Blood Transfusion Reactions: Motion Sickness Additional Past Anesthesia/Blood Transfusion Reaction / Comment(s): CLAUSTERPHOBIA Date of Last Stent Placement:: 10/22/20 Past Psychological History: Anxiety Additional Psychological History / Comment(s): USES ATIVAN FOR MILD ANXIETY /SLEEP. Pt resides with his spouse. He can no longer drive d/t vision. He uses no assistive device. Smoking Status: Former smoker Past Alcohol Use History: None Reported Additional Past Alcohol Use History / Comment(s): Patient was a smoker of 2-3 packs per day for 35 years and quit in 2006. Past Drug Use History: None Reported - Past Family History Mother History Unknown: Yes Family Medical History: Coronary Artery Disease (CAD), Myocardial Infarction (NV) Additional Family Medical History / Comment(s): Mother at age 58 from multiple sclerosis Father Family Medical History: CVA/TIA, Myocardial Infarction (NV) Additional Family Medical History / Comment(s): Father had history of NV and CVA followed by a second NV and CVA and at age 65. Brother(s) Additional Family Medical History / Comment(s): . Medications and Allergies Home Medications Medication Instructions Recorded Confirmed Type Atorvastatin [Lipitor] 40 mg PO HS 08/07/14 02/05/21 History Levothyroxine Sodium 100 mcg PO HS 07/06/17 02/05/21 History Torsemide [Demadex] 40 mg PO DAILY 09/10/19 02/05/21 History Allopurinol [Zyloprim] 300 mg PO HS 10/20/20 02/05/21 History Carvedilol [Coreg] 6.25 mg PO HS 10/20/20 02/05/21 History Bryanna-Olimpia 1 tab PO DAILY 10/20/20 02/05/21 History Aspirin 81 mg PO DAILY #90 chew 10/22/20 02/05/21 Rx Calcium Acetate [PhosLo] 1,334 mg PO TID-W/MEALS tab 10/23/20 02/05/21 Rx Nitroglycerin Sl Tabs [Nitrostat] 0.4 mg SUBLINGUAL Q5M PRN #25 tab 10/23/20 02/05/21 Rx Clopidogrel Bisulfate [Plavix] 75 mg PO DAILY 11/24/20 02/05/21 History HYDROcodone/APAP 10-325MG [Withams 1 tab PO QID PRN 11/24/20 02/05/21 History 10-325] Insulin Regular, Human [Novolin R 30 unit SQ ACHS 11/24/20 02/05/21 History Flexpen] Lactulose [Cephulac] 30 gm PO DAILY PRN 11/24/20 02/05/21 History Insulin Detemir [Levemir Flextouch] 60 units SQ HS 02/05/21 02/05/21 History Allergies Allergy/AdvReac Type Severity Reaction Status Date / Time No Known Allergies Allergy Verified 02/05/21 11:53 Physical Exam Vitals: Vital Signs Temp Pulse Pulse Resp BP BP Pulse Ox 02/06/21 08:29 98.8 F 83 18 108/64 96 02/06/21 04:00 97.8 F 83 18 126/63 98 02/06/21 01:59 91 18 02/06/21 00:00 97.8 F 91 18 120/61 97 02/05/21 22:00 97.8 F 93 18 122/79 97 02/05/21 20:00 92 18 131/64 99 02/05/21 15:09 86 18 127/62 97 02/05/21 12:29 92 18 138/68 98 02/05/21 11:15 99.0 F 104 H 18 147/71 97 Intake and Output 02/05/21 02/06/21 02/06/21 22:59 06:59 14:59 Intake Total 480 0 Balance 480 0 Intake: Oral 480 0 Other: Voiding Method Urinal # Voids 2 Weight 152.6 kg 152.5 kg Results - Lab Results Most recent lab results Calcium 9.3 mg/dL (8.4-10.2) 02/05/21 11:54 02/05/21 11:54 02/05/21 11:54 Assessment and Plan Plan: Assessment: 1. End-stage renal disease maintained on hemodialysis on Tuesday schedule. 2. Volume overload with pleural effusions and small pericardial effusion. 3. Anemia of chronic kidney disease. Rule out iron deficiency. 4. Chronic kidney disease mineral bone disease maintained on PhosLo. 5. Diabetes mellitus. Plan: Short hemodialysis treatment today mostly for ultrafiltration. Another treatment tomorrow. Check iron studies. Add Jeffrey. Thank you for the consultation. I will continue to follow patient with you during his hospital stay.
[2021-02-06] MEDS: HEPARIN SODIUM,PORCINE/PF 5,000 UNIT/0.5 ML SYRINGE SQ SCH ×2 (10:23→20:50)
[2021-02-06] MEDS: CLOPIDOGREL 75 MG TAB PO SCH (10:24)
[2021-02-06] MEDS: FOLIC ACID-VIT B COMPLEX-VIT C 1 CAP PO SCH (10:24)
[2021-02-06] MEDS: ASPIRIN 81 MG PO SCH (10:24)
[2021-02-06] MEDS: INSULIN REGULAR 100 UNIT/ML VIAL SQ SCH ×4 (10:26→20:51)
[2021-02-06] MEDS ORDERED: DARBEPOETIN ALFA 40 MCG/0.4 ML SYRINGE SQ SCH (11:00)
[2021-02-06 11:12] VITALS: BMI 46.8
[2021-02-06 11:41] LABS: Glucose,Whole Blood 224 mg/dL (75-99)
--- NOTE | 2021-02-06 12:27 | P.CRDCN ---
History of Present Illness History of present illness: HISTORY OF PRESENTING ILLNESS This is a pleasant 60-year-old male past medical history significant for coronary artery disease s/p PCI RCA 10/2020, pericardial effusion s/p tamponade and window 11/2020, end-stage renal disease on hemodialysis, hypertension, dyslipidemia and diabetes mellitus. He follows in the office with Dr. Liz. We have been asked to see in consultation for shortness of breath. He states over the previous couple of days [facility]. The symptoms have been getting progressively worse and more noticeable. He's been using his CPAP more during the day and achieving some relief. While at dialysis he is asking for nasal cannula oxygen which is relieving his symptoms as well. He also notices some discomfort in the left precordial region described as a heavy sensation. This has occurred one or 2 times over the previous couple days and is not related to exertion or activity. He denies dizziness, nausea, vomiting, diaphoresis or palpitations. He underwent successful PCI of the RCA in October 2020 in the setting of an acute NH. In November 2020 he was found to have a pericardial effu johnny and underwent pericardial window. Since that time according to the patient he has been feeling well until a few days ago. In the emergency department he was initiated on IV diuretics. He states he is urinating significant amount compared to his baseline. DIAGNOSTICS EKG reveals sinus mechanism heart rate of 101 with PVC, inferior Q wave and nonspecific ST abnormalities, consistent with previous EKG. No acute changes noted. Telemetry tracings indicate sinus mechanism. Chest xray moderate bilateral pleural effusions, left greater than right. CTA is negative for PE with moderate left pleural effusion and small right pleural effusion. There is a tiny pericardial effusion. Laboratory reviewed, cardiac enzymes negative 3, WBC 14, hemoglobin 9.8, platelets 341, d-dimer 5.29, sodium 136, potassium 4.0, creatinine 2.89, NT proBNP 4940. Current cardiac medications include aspirin 81 mg daily, atorvastatin 40 mg daily, Coreg 6.25 mg at bedtime, Plavix 75 mg daily and torsemide 40 mg daily. Most recent echocardiogram obtained November 2020 revealed preserved LV systolic function with ejection fraction 60-65%. Prior to discharge he had a limited echo obtained on that admission that revealed an organized stable pericardial effusion. REVIEW OF SYSTEMS At the time of my exam: CONSTITUTIONAL: Denies fever or chills. CARDIOVASCULAR: Denies chest pain, shortness of breath, orthopnea, PND or palpitations. RESPIRATORY: Denies cough. GASTROINTESTINAL: Denies abdominal pain, diarrhea, constipation, nausea or vomiting. MUSCULOSKELETAL: Denies myalgias. NEUROLOGIC: Denies numbness, tingling, headacbe or weakness. ENDOCRINE: Denies fatigue, weight change, polydipsia or polyurina. GENITOURINARY: Denies burning, hematuria or urgency with micturation. HEMATOLOGIC: Denies history of anemia or bleeding. PHYSICAL EXAMINATION Blood pressure 108/64 heart rate 83 afebrile and maintaining oxygen saturation on room air. CONSTITUTIONAL: No apparent distress. HEENT: Head is normocephalic. Pupils are equal, round. Sclerae anicteric. Mucous membranes of the mouth are moist. No JVD. No carotid bruit. CHEST EXAMINATION: Diminished significantly bilaterally at the bases. No wheezes or rhonchi. No chest wall tenderness is noted on palpation or with deep breathing. HEART EXAMINATION: Regular rate and rhythm. S1, S2 heard. No murmurs, gallops or rub. ABDOMEN: Soft, nontender. Positive bowel sounds. EXTREMITIES: 2+ peripheral pulses, trace lower extremity edema and no calf tenderness. NEUROLOGIC EXAMINATION: Patient is awake, alert and oriented x3. ASSESSMENT Acute on chronic diastolic heart failure Bilateral pleural effusions End-stage renal disease on hemodialysis Coronary artery disease status post PCI to the RCA maintained on dual antiplatelet therapy Hypertension Dyslipidemia Diabetes mellitus Morbid obesity, BMI 46 PLAN An acute coronary event has been ruled out. Echocardiogram has been obtained and will be reviewed. Continue dual antiplatelet therapy. Continue IV diuretics. Document accurate intake and output along with daily weights. Follow renal function and electrolytes in the morning. Obtain ultrasound of the chest to measure pleural effusions. Nephrology following for dialysis recommendations. Further recommendations to follow based upon clinical course. Thank you kindly for this consultation. Nurse Practitioner note has been reviewed, I agree with a documented findings and plan of care. Patient was seen and examined. Past Medical History Past Medical History: Coronary Artery Disease (CAD), Cancer, Heart Failure, CVA/TIA, Diabetes Mellitus, Eye Disorder, Hypertension, Myocardial Infarction (NH), Renal Disease, Sleep Apnea/CPAP/BIPAP, Thyroid Disorder Additional Past Medical History / Comment(s): IDDM type II, neuropathy bilateral lower extremity/feet, bilateral eye diabetic retinopathy/poor vision/multiple injections, ESRD with hemodialysis T/TH/SAT, anemia, "mini strokes" x2, AVANI with CPap use, occasional low back pain/disc disease, gout, hypothyroid, pt recieved pfizer covid 19 vaccine. zpt. had 2 stents placed after NH. Last Myocardial Infarction Date:: 10/20/20 History of Any Multi-Drug Resistant Organisms: None Reported Past Surgical History: Adenoidectomy, Bariatric Surgery, Cholecystectomy, Heart Catheterization, Heart Catheterization With Stent, Orthopedic Surgery, Tonsillectomy Additional Past Surgical History / Comment(s): 10/22/20 PCI with stents, lap banding, FX of right ankle repair pins / plate, fistual lt arm jul 2018, lt shoulder sx (d/t separation), colonoscopies, bilateral cataract removals/lens implants. Past Anesthesia/Blood Transfusion Reactions: Motion Sickness Additional Past Anesthesia/Blood Transfusion Reaction / Comment(s): CLAUSTERPHOBIA Date of Last Stent Placement:: 10/22/20 Past Psychological History: Anxiety Additional Psychological History / Comment(s): USES ATIVAN FOR MILD ANXIETY /SLEEP. Pt resides with his spouse. He can no longer drive d/t vision. He uses no assistive device. Smoking Status: Former smoker Past Alcohol Use History: None Reported Additional Past Alcohol Use History / Comment(s): Patient was a smoker of 2-3 packs per day for 35 years and quit in 2006. Past Drug Use History: None Reported - Past Family History Mother History Unknown: Yes Family Medical History: Coronary Artery Disease (CAD), Myocardial Infarction (NH) Additional Family Medical History / Comment(s): Mother at age 58 from multiple sclerosis Father Family Medical History: CVA/TIA, Myocardial Infarction (NH) Additional Family Medical History / Comment(s): Father had history of NH and CVA followed by a second NH and CVA and at age 65. Brother(s) Additional Family Medical History / Comment(s): . Medications and Allergies Home Medications Medication Instructions Recorded Confirmed Type Atorvastatin [Lipitor] 40 mg PO HS 08/07/14 02/05/21 History Levothyroxine Sodium 100 mcg PO HS 07/06/17 02/05/21 History Torsemide [Demadex] 40 mg PO DAILY 09/10/19 02/05/21 History Allopurinol [Zyloprim] 300 mg PO HS 10/20/20 02/05/21 History Carvedilol [Coreg] 6.25 mg PO HS 10/20/20 02/05/21 History Bryanna-Olimpia 1 tab PO DAILY 10/20/20 02/05/21 History Aspirin 81 mg PO DAILY #90 chew 10/22/20 02/05/21 Rx Calcium Acetate [PhosLo] 1,334 mg PO TID-W/MEALS tab 10/23/20 02/05/21 Rx Nitroglycerin Sl Tabs [Nitrostat] 0.4 mg SUBLINGUAL Q5M PRN #25 tab 10/23/20 02/05/21 Rx Clopidogrel Bisulfate [Plavix] 75 mg PO DAILY 11/24/20 02/05/21 History HYDROcodone/APAP 10-325MG [Rebuck 1 tab PO QID PRN 11/24/20 02/05/21 History 10-325] Insulin Regular, Human [Novolin R 30 unit SQ ACHS 11/24/20 02/05/21 History Flexpen] Lactulose [Cephulac] 30 gm PO DAILY PRN 11/24/20 02/05/21 History Insulin Detemir [Levemir Flextouch] 60 units SQ HS 02/05/21 02/05/21 History Allergies Allergy/AdvReac Type Severity Reaction Status Date / Time No Known Allergies Allergy Verified 02/05/21 11:53 Physical Exam Vitals: Vital Signs Temp Pulse Pulse Resp BP BP Pulse Ox 02/06/21 08:29 98.8 F 83 18 108/64 96 02/06/21 04:00 97.8 F 83 18 126/63 98 02/06/21 01:59 91 18 02/06/21 00:00 97.8 F 91 18 120/61 97 02/05/21 22:00 97.8 F 93 18 122/79 97 02/05/21 20:00 92 18 131/64 99 02/05/21 15:09 86 18 127/62 97 02/05/21 12:29 92 18 138/68 98 02/05/21 11:15 99.0 F 104 H 18 147/71 97 Intake and Output 05/27/21 05/28/21 05/28/21 22:59 06:59 14:59 Intake Total 480 0 Balance 480 0 Intake: Oral 480 0 Other: Voiding Method Urinal # Voids 2 Weight 152.6 kg 152.5 kg Results 02/05/21 11:54 02/05/21 11:54 Cardiac Enzymes 02/05/21 02/05/21 02/05/21 Range/Units 11:54 11:54 15:43 AST 30 (17-59) U/L Troponin I <0.012 <0.012 (0.000-0.034) ng/mL 02/05/21 Range/Units 18:27 AST (17-59) U/L Troponin I <0.012 (0.000-0.034) ng/mL Coagulation 02/05/21 Range/Units 11:54 PT 10.2 (9.0-12.0) sec APTT 26.4 (22.0-30.0) sec CBC 02/05/21 Range/Units 11:54 WBC 14.0 H (3.8-10.6) k/uL RBC 3.27 L (4.30-5.90) m/uL Hgb 9.8 L D (13.0-17.5) gm/dL Hct 30.9 L (39.0-53.0) % Plt Count 341 (150-450) k/uL Comprehensive Metabolic Panel 02/05/21 Range/Units 11:54 Sodium 136 L (137-145) mmol/L Potassium 4.0 (3.5-5.1) mmol/L Chloride 91 L (98-107) mmol/L Carbon Dioxide 34 H (22-30) mmol/L BUN 19 (9-20) mg/dL Creatinine 2.89 H (0.66-1.25) mg/dL Glucose 194 H (74-99) mg/dL Calcium 9.3 (8.4-10.2) mg/dL AST 30 (17-59) U/L ALT 33 (4-49) U/L Alkaline Phosphatase 116 (38-126) U/L Total Protein 7.3 (6.3-8.2) g/dL Albumin 3.8 (3.5-5.0) g/dL Current Medications Generic Name Dose Route Start Last Admin Trade Name Freq PRN Reason Stop Dose Admin Hydrocodone Bitart/Acetaminophen 1 each 02/05/21 18:16 02/06/21 04:32 Hydrocodone/Apap 10-325mg 1 Each Tab PO 1 each QID PRN Administration Pain Allopurinol 300 mg 02/05/21 21:00 02/05/21 20:20 Allopurinol 300 Mg Tab PO 300 mg HS [facility] Administration Aspirin 81 mg 02/06/21 09:00 Aspirin 81 Mg PO DAILY [facility] Atorvastatin Calcium 40 mg 02/05/21 21:00 02/05/21 20:20 Atorvastatin 40 Mg Tab PO 40 mg HS [facility] Administration Calcium Acetate 1,334 mg 02/06/21 07:30 02/06/21 06:30 Calcium Acetate 667 Mg Tab PO 1,334 mg TID-W/MEALS [facility]INE Administration Carvedilol 6.25 mg 02/05/21 21:00 02/05/21 20:20 Carvedilol 6.25 Mg Tab PO 6.25 mg HS [facility] Administration Clopidogrel Bisulfate 75 mg 02/06/21 09:00 Clopidogrel 75 Mg Tab PO DAILY [facility] Furosemide 40 mg 02/05/21 15:00 02/06/21 06:30 Furosemide 10 Mg/Ml 4 Ml Vial IV 40 mg Q8H [facility] Administration Heparin Sodium (Porcine) 5,000 unit 02/06/21 09:00 Heparin Sodium,Porcine/Pf 5,000 Unit/0.5 Ml Syringe SQ Q12HR [facility] Insulin Aspart 0 unit 02/06/21 07:30 02/06/21 06:14 Insulin Aspart (Novolog) 100 Unit/Ml Vial SQ Not Given [facility] Protocol Insulin Detemir 60 unit 02/05/21 21:00 02/05/21 21:05 Insulin Detemir (Levemir) 100 Unit/Ml Syr SQ 60 unit HS [facility] Administration Insulin Human Regular 30 unit 02/05/21 21:00 02/05/21 21:09 Insulin Regular 100 Unit/Ml Vial SQ 30 unit ACHS [facility] Administration Lactulose 30 gm 02/05/21 18:16 Lactulose 20 Gm/30 Ml Cup PO DAILY PRN Constipation Levothyroxine Sodium 100 mcg 02/05/21 21:00 02/05/21 20:20 Levothyroxine 100 Mcg Tab PO 100 mcg HS [facility] Administration Multivit/Ca Carb/B Cmplx/FA/Prenat 1 each 02/06/21 09:00 Folic Acid-Vit B Complex-Vit C 1 Cap PO DAILY [facility] Nitroglycerin 1 inch 05/27/21 15:00 02/05/21 22:22 Nitroglycerin Oint 1 Inch/Gm Packet TOPICAL Not Given QID [facility] Nitroglycerin 0.4 mg 02/05/21 18:16 Nitroglycerin Sl Tabs 0.4 Mg Tab SUBLINGUAL Q5M PRN Chest Pain Pantoprazole Sodium 40 mg 02/06/21 07:30 02/06/21 06:30 Pantoprazole 40 Mg Tablet PO 40 mg [id number] [facility] Administration Sodium Chloride 10 ml 02/05/21 21:00 02/05/21 22:34 Sodium Chloride 0.9% Flush 10 Ml Syringe IV 10 ml BID [facility] Administration Torsemide 40 mg 02/06/21 09:00 Torsemide 20 Mg Tab PO DAILY [facility] Intake and Output 02/05/21 02/06/21 02/06/21 22:59 06:59 14:59 Intake Total 480 0 Balance 480 0 Intake: Oral 480 0 Other: Voiding Method Urinal # Voids 2 Weight 152.6 kg 152.5 kg 02/05/21 11:54 02/05/21 11:54
[2021-02-06 14:32] LABS: Hemoglobin A1C 6.5 % (4.0-6.0)
[2021-02-06 16:52] LABS: Glucose,Whole Blood 97 mg/dL (75-99)
[2021-02-06 19:45] LABS: Glucose,Whole Blood 206 mg/dL (75-99)
[2021-02-06] MEDS: carvediloL 6.25 MG TAB PO SCH (20:50)
[2021-02-06] MEDS: ATORVASTATIN 40 MG TAB PO SCH (20:50)
[2021-02-06] MEDS: allopurinoL 300 MG TAB PO SCH (20:50)
[2021-02-06] MEDS: INSULIN DETEMIR (LEVEMIR) 100 UNIT/ML SYR SQ SCH (20:51)
[2021-02-06] MEDS: LEVOTHYROXINE 100 MCG TAB PO SCH (20:52)
--- NOTE | 2021-02-06 21:06 | P.PN ---
Subjective Progress Note Date: 02/06/21 HISTORY OF PRESENT ILLNESS: 60-year-old morbidly obese male one of Dr. Oshea patient with past medical history of type 2 diabetes on insulin, end-stage renal disease on hemodialysis 3 times a week who was diagnosed back in October this year with ischemic heart disease ended up having 2 stents placement at the time. Presented to the emergency department again 6 weeks later with chest pain had a stress test and echo did not show any major abnormality 11 days later he came back with extremely short of breath and dyspnea found to have significant cardiac effusion and ended up having to go for pericardial window was in the hospital for a period of time and recovered nicely afterward. Patient continued see cardiology and pulmonary along with nephrology regular basis. Patient presented to the emergency department at [facility] today complaining of chest discomfort and dyspnea worsening symptoms since yesterday with heaviness and significant dyspnea with minimal exertion did not have any cough or wheezes despite doing dialysis today symptom did not get improved continue to have much worsening symptom with exertion limiting his function quite bed. Patient ended up coming to [facility] was seen and evaluated found to have slight congestive heart failure mostly systolic dysfunction with pericardial effusion and pleural effusion as well. His labs showed slightly elevated white blood cell with hemoglobin down to 9.8 his d-dimer was elevated patient ended up going for CTA which showed no evidence of pulmonary embolism but small to tiny size pericardial effusion and small to moderate size of left pleural effusion associated with left lung compression atelectasis and tiny right pleural effusion. Creatinine was 2.89 patient is on hemodialysis electrolyte imbalance was normal patient had troponin less than 0.012 with normal liver function test. COVID PCR test was negative, BNP was 4940. Patient will be admitted to the hospital will consult nephrology for dialysis also consult cardiology CK with troponin 3 will be done patient will go for another echocardiogram adjust his medication treat his congestive heart failure and if there is any spike on tro ponin patient might need further intervention. 02/06 Patient was seeing cardiology, nephrology, no finding consistent with pericardial effusion at this time and pleural effusion is very minimal. Patient congestive heart failure and symptom being treated with diuretics, along with titrating dialysis to remove more fluid. CK with troponin was negative patient will be doing dialysis today and tomorrow has to full cycle to help him WITH his razor will be discharged tomorrow he doesn't need to go back to do dialysis till Tuesday. REVIEW OF SYSTEMS: Constitutional: No fever, no chills, no night sweats. No weight change. No weakness, fatigue or lethargy. No daytime sleepiness. Morbidly obese does not look in any respiratory distress EENT: No headache. No blurred vision or double vision, no loss of vision. No loss of Hearing, no ringing in the ears, no dizziness. No nasal drainage or congestion. No epistaxis. No sore throat. Lungs: Significant shortness of breath with mild cough and wheezes. Cardiovascular: Positive chest pain, positive PND orthopnea palpitation with worsening fluid retention, worsening symptom with exertion and worsening exertional shortness of breath.. Abdominal: No abdominal pain. No nausea, vomiting. No diarrhea. No constipati on. No bloody or tarry stools.. No loss of appetite. Genitourinary: No dysuria, increased frequency, urgency. No urinary retention. End-stage renal disease on hemodialysis Musculoskeletal: No myalgias. No muscle weakness, no gait dysfunction, no frequent falls. Positive lower back pain with slight arthritic pain and mild edema.. Integumentary: No wounds, no lesions. No rash or pruritus. No unusual bruising. No change in hair or nails. Neurologic: No aphasia. No facial droop. No change in mentation. No head injury. No headache. No paralysis. No paresthesia. Psychiatric: No depression. No anxiety. No mood swings. Endocrine: No abnormal blood sugars. No weight change. No excessive sweating or thirst. No cold intolerance. PHYSICAL EXAMINATION Gen: This is a morbidly obese laying in bed with his head slightly but up no acute respiratory distress. HEENT: Head is atraumatic, normocephalic. Pupils equal, round. Sclerae is anicteric. NECK: Supple. No JVD. No lymphadenopathy. No thyromegaly. LUNGS: Decreased breath sounds especially in the left side with fine rhonchi in the right base with mild crackles. HEART: Regular rhythm and rate S1-S2 positive S3 positive JVD.. ABDOMEN: Soft. Positive Bowel sounds . No masses. No tenderness. EXTREMITIES: 1+ edema with slight discoloration from the knee down decreased pulse and dorsalis pedis posterior tibial. NEUROLOGICAL: Patient is awake, alert and oriented x3. Cranial nerves 2 through 12 are grossly intact. ASSESSMENT AND PLAN 1 atypical chest pain: With significant history of coronary artery disease post angioplasty and stent placement with known blockage, patient be hospitalized continue to do CK with troponin 3, continue antiplatelet agent at this point continue patient on nitro will consult cardiology if any elevated CK with troponin patient might need intervention if not echocardiogram and continue conservative management. much better so far enzymes are negative no need for intervention echo or stress test not needed at this time. 2 severe dyspnea and shortness of breath: Combination of congestive heart failure along with slight pleural effusion all testing are negative patient to continue hemodialysis to remove more fluid also continue control blood pressure better no finding consistent with pericardial effusion this point. 3 worsening congestive heart failure: Most likely systolic dysfunction with diastolic component as well echocardiogram from November 25 showed ejection fraction of 60-65 percentile with small pericardial effusion and more diastolic pattern of heart failure at the time. Diuretics will be done we will ask nephrology to see if removing more fluid with hemodialysis can be good option patient will watch his fluid intake and salt intake as well. 4 end-stage renal disease on hemodialysis 3 times a week consult nephrology.we will be doing dialysis today and tomorrow. 5 type 2 diabetes on insulin continue patient on Levemir 6 units at bedtime along with Humulin R 50 units a [facility] Accu-Chek with sliding scales coverage will be done. 7 hypothyroidism: Continue patient on levothyroxine 50 g daily. 8 anasarca and chronic edema combination of kidney failure along with diastolic heart failure patient has been on torsemide 40 mg daily continue medication watch patient's weight twice a week. 9 hyperlipidemia: Continue patient on atorvastatin 40 mg daily. 10 known cardiovascular heart disease: Post angioplasty and stent placement back in October 2020. 11 history of gout: Has been on Zyloprim 300 mg every other day. 12 DVT prophylaxis: Early mobilization along with heparin subcutaneous. 13 GI prophylaxis: Patient will be on Protonix 40 mg daily. discharge planning: Patient be discharged home tomorrow if he is doing better Objective - Vital Signs Vital signs: Vital Signs Temp 98.8 F 02/06/21 08:29 Pulse 90 02/06/21 11:35 Resp 16 02/06/21 11:35 BP 112/71 02/06/21 11:35 Pulse Ox 98 02/06/21 11:35 Intake & Output 02/05/21 02/06/21 02/06/21 18:59 06:59 18:59 Intake Total 480 0 Balance 480 0 Weight 149.685 kg 152.5 kg 152.5 kg Intake: Oral 480 0 Other: Voiding Method Urinal Urinal # Voids 2 - Labs CBC & Chem 7: 02/05/21 11:54 02/05/21 11:54 Labs: Abnormal Lab Results - Last 24 Hours (Table) 02/05/21 02/05/21 02/06/21 Range/Units 20:23 21:56 06:07 POC Glucose (mg/dL) 313 H 361 H 123 H (75-99) mg/dL 02/06/21 02/06/21 Range/Units 09:42 11:35 POC Glucose (mg/dL) 131 H 224 H (75-99) mg/dL
[2021-02-06 21:14] LABS: % Iron Saturation 43.36 (15.00-50.00)
[2021-02-06 22:14] LABS: Ferritin 1746.4 ng/mL (22.0-322.0)
[2021-02-07 01:48] LABS: Glucose,Whole Blood 225 mg/dL (75-99)
[2021-02-07] MEDS: HYDROcodone/APAP 10-325MG 1 EACH TAB PO PRN ×2 (02:53→09:59)
[2021-02-07] MEDS: CALCIUM ACETATE 667 MG TAB PO SCH ×2 (06:37→13:18)
[2021-02-07] MEDS: FUROSEMIDE 10 MG/ML 4 ML VIAL IV SCH ×2 (06:38→16:16)
[2021-02-07] MEDS: PANTOPRAZOLE 40 MG TABLET PO SCH (06:38)
[2021-02-07 06:45] LABS: Glucose,Whole Blood 232 mg/dL (75-99)
[2021-02-07] MEDS: NITROGLYCERIN OINT 1 INCH/GM PACKET TOPICAL SCH (06:51)
[2021-02-07] MEDS: INSULIN ASPART (NovoLOG) 100 UNIT/ML VIAL SQ SCH ×2 (07:04→12:52)
[2021-02-07] MEDS: INSULIN REGULAR 100 UNIT/ML VIAL SQ SCH ×2 (07:05→13:18)
[2021-02-07 08:27] LABS: Calcium 9.1 mg/dL (8.4-10.2); Potassium 5.5 mmol/L (3.5-5.1)
[2021-02-07] MEDS ORDERED: ASPIRIN 325 MG TAB PO SCH (09:00)
--- NOTE | 2021-02-07 10:00 | ECHOF ---
Referral Reason:Heart Failure MEASUREMENTS -------- HEIGHT: 180.3 cm WEIGHT: 149.7 kg BP: 127/62 RVIDd: 3.4 cm (< 3.3) TAPSE: 17.66 mm FINDINGS -------- Sinus rhythm. This was a technically adequate study. Limited Study Overall left ventricular systolic function is normal with, an EF between 60 - 65 %. Echo free space represents a pericardial fat pad. There is no pericardial effusion. CONCLUSIONS -------- 1. Limited Study 2. Overall left ventricular systolic function is normal with, an EF between 60 - 65 %. 3. Echo free space represents a pericardial fat pad. 4. There is no pericardial effusion. HOUSEKEEPING MANAGER: Sharita Navarro RDCS
[2021-02-07 11:52] LABS: Glucose,Whole Blood 146 mg/dL (75-99)
[2021-02-07] MEDS: HEPARIN SODIUM,PORCINE/PF 5,000 UNIT/0.5 ML SYRINGE SQ SCH (12:52)
--- NOTE | 2021-02-07 13:04 | P.PN ---
Subjective Progress Note Date: 02/07/21 This is a pleasant 60-year-old male past medical history significant for coronary artery disease s/p PCI RCA 10/2020, pericardial effusion s/p tamponade and window 11/2020, end-stage renal disease on hemodialysis, hypertension, dyslipidemia, and diabetes mellitus. He follows in the office with Dr. Liz. The patient states he is feeling a little bit better. He is not short of breath with exertion. No chest pain or chest pressure. No palpitations, dizziness, or lightheadedness Recent echocardiogram shows no evidence of pericardial effusion with normal LV function GENERAL: Well-appearing, well-nourished and in no acute distress. NECK: Supple without JVD or thyromegaly. LUNGS: Breath sounds clear to auscultation bilaterally, Respiration equal and unlabored. No wheezes, rales or rhonchi. HEART: Regular rate and rhythm without murmurs, rubs or gallops. S1 and S2 heard. EXTREMITIES: Normal range of motion, mild edema. No clubbing or cyanosis. Peripheral pulses intact and strong. VITALS: 137/65, pulse rate 85, respiratory rate 16, temperature 98.9F, SpO2 96% on room air TELEMETRY: Sinus mechanism. No arrhythmias overnight LABS: Sodium 136, potassium 5.5, BUN 43, creatinine 5.54 IMPRESSION: Acute on chronic diastolic heart failure Bilateral pleural effusions, small effusions on ultrasound End-stage renal disease on hemodialysis Coronary artery disease status post PCI to the RCA maintained on dual antiplatelet therapy Hypertension Dyslipidemia Diabetes mellitus Morbid obesity, BMI 46 PLAN: Consider transitioning back to oral Lasix per nephrology's recommendations No additional recommendations from the cardiac standpoint Continue to follow on an as-needed basis The patient has been seen and evaluated. Plan of care has been reviewed and agreed upon by Dr Swain. Objective - Vital Signs Vital signs: Vital Signs Temp 98.9 F 02/07/21 02:50 Pulse 86 02/07/21 12:00 Resp 16 02/07/21 12:00 BP 158/72 02/07/21 12:00 Pulse Ox 96 02/07/21 08:00 Intake & Output 02/06/21 02/07/21 02/07/21 18:59 06:59 18:59 Intake Total 240 600 Output Total 2300 Balance 240 -2300 600 Weight 152.5 kg 150.2 kg Intake: Oral 240 600 Output: Hemodialysis 2300 Other: Voiding Method Urinal Urinal # Voids 1 - Labs CBC & Chem 7: 02/05/21 11:54 02/07/21 06:59 Labs: Abnormal Lab Results - Last 24 Hours (Table) 02/05/21 02/06/21 02/06/21 Range/Units 11:54 07:28 19:44 Sodium (137-145) mmol/L Potassium (3.5-5.1) mmol/L Chloride (98-107) mmol/L BUN (9-20) mg/dL Creatinine (0.66-1.25) mg/dL Glucose (74-99) mg/dL POC Glucose (mg/dL) 206 H (75-99) mg/dL Hemoglobin A1c 6.5 H (4.0-6.0) % TIBC 226 L (228-460) ug/dL Ferritin 1746.4 H (22.0-322.0) ng/mL 02/07/21 02/07/21 02/07/21 Range/Units 01:47 06:43 06:59 Sodium 136 L (137-145) mmol/L Potassium 5.5 H (3.5-5.1) mmol/L Chloride 94 L (98-107) mmol/L BUN 43 H (9-20) mg/dL Creatinine 5.54 H (0.66-1.25) mg/dL Glucose 161 H (74-99) mg/dL POC Glucose (mg/dL) 225 H 232 H (75-99) mg/dL Hemoglobin A1c (4.0-6.0) % TIBC (228-460) ug/dL Ferritin (22.0-322.0) ng/mL 02/07/21 Range/Units 11:38 Sodium (137-145) mmol/L Potassium (3.5-5.1) mmol/L Chloride (98-107) mmol/L BUN (9-20) mg/dL Creatinine (0.66-1.25) mg/dL Glucose (74-99) mg/dL POC Glucose (mg/dL) 146 H (75-99) mg/dL Hemoglobin A1c (4.0-6.0) % TIBC (228-460) ug/dL Ferritin (22.0-322.0) ng/mL
--- NOTE | 2021-02-07 13:11 | PN ---
PROGRESS NOTE Patient is seen for followup for end-stage renal disease. He was admitted to the hospital with chest pressure with concern for possible pericarditis and pericardial effusion, as his symptoms were similar to his previous episode. However, CT scan did not show any significant pericardial effusion. The patient was dialyzed yesterday and we had about 2.3 L of fluid removed. He is scheduled for hemodialysis again today. There are plans for possible discharge post dialysis today. PHYSICAL EXAMINATION: Blood pressure 137/65, heart rate 85 per minute. He is afebrile. Examination of the heart S1, S2. Examination of the lungs, bilateral breath sounds are heard. Decreased breath sounds at bases. ABDOMEN: Soft, obese. Exam of lower extremities no significant edema. Chronic skin changes noted. [employer] exam grossly intact. LAB: Show sodium 136, potassium 5.5, BUN 43, creatinine 5.54. ASSESSMENT: 1. End-stage renal disease, on hemodialysis on a Tuesday, , Tuesday schedule. 2. Anemia of chronic disease. 3. History of pericardial effusion status post pericardial window. 4. Volume overload. PLAN: Hemodialysis today. Goal UF of another 2-3 L as tolerated. The patient can be discharged from nephrology standpoint post hemodialysis today. MMODL / IJN: [id number] /
[2021-02-07] MEDS: FOLIC ACID-VIT B COMPLEX-VIT C 1 CAP PO SCH (13:17)
[2021-02-07] MEDS: CLOPIDOGREL 75 MG TAB PO SCH (13:17)
[2021-02-07] MEDS: ASPIRIN 81 MG PO SCH (13:17)
[2021-02-07 13:29] VITALS: BP 131/68; PULSE 88; RESP 18; TEMP 97.5
--- NOTE | 2021-02-07 14:17 | P.DS ---
Providers Date of admission: 02/05/21 14:58 Attending physician: Meng Jimenez Consults: 02/05/21 12:53 Consult Physician Urgent Consulting Provider: Chacho Dove Consult Reason/Comments: esrd on hd Do you want consulting provider notified?: Already Contacted 02/05/21 14:58 Consult Physician Routine Consulting Provider: Joel Swain Consult Reason/Comments: chf, cp Do you want consulting provider notified?: Yes Primary care physician: Hayes Oshea Hospital Course: 60-year-old morbidly obese male one of Dr. Oshea patient with past medical history of type 2 diabetes on insulin, end-stage renal disease on hemodialysis 3 times a week who was diagnosed back in October this year with ischemic heart disease ended up having 2 stents placement at the time. Presented to the emergency department again 6 weeks later with chest pain had a stress test and echo did not show any major abnormality 11 days later he came back with extremely short of breath and dyspnea found to have significant cardiac effusion and ended up having to go for pericardial window was in the hospital for a period of time and recovered nicely afterward. Patient continued see cardiology and pulmonary along with nephrology regular basis. Patient presented to the emergency department at [facility] today complaining of chest discomfort and dyspnea worsening symptoms since yesterday with heaviness and significant dyspnea with minimal exertion did not have any cough or wheezes despite doing dialysis today symptom did not get improved continue to have much worsening symptom with exertion limiting his function quite bed. Patient ended up coming to [facility] was seen and evaluated found to have slight congestive heart failure mostly systolic dysfunction with pericardial effusion and pleural effusion as well. His labs showed slightly elevated white blood cell with hemoglobin down to 9.8 his d-dimer was elevated patient ended up going for CTA which showed no evidence of pulmonary embolism but small to tiny size pericardial effusion and small to moderate size of left pleural effusion associated with left lung compression atelectasis and tiny right pleural effusion. Creatinine was 2.89 patient is on hemodialysis electrolyte imbalance was normal patient had troponin less than 0.012 with normal liver function test. COVID PCR test was negative, BNP was 4940. Patient will be admitted to the hospital will consult nephrology for dialysis also consult cardiology CK with troponin 3 will be done patient will go for another echocardiogram adjust his medication treat his congestive heart failure and if there is any spike on troponin patient might need further intervention. 02/06 Patient was seeing cardiology, nephrology, no finding consistent with pericardial effusion at this time and pleural effusion is very minimal. Patient congestive heart failure and symptom being treated with diuretics, along with titrating dialysis to remove more fluid. CK with troponin was negative patient will be doing dialysis today and tomorrow has to full cycle to help him WITH his razor will be discharged tomorrow he doesn't need to go back to do dialysis till Tuesday. 02/07 patient examined today patient currently on room air. Temp of 97.5 pulse 88 respiratory rate 18 blood pressure 131/68. Patient did have abnormal labs today showing a potassium of 5.5 creatinine 5.54 BUN 43 blood sugar of 232. Patient underwent ultrafiltration today. . Discharge diagnosis 1 atypical chest pain ACS ruled out 2 acute on chronic diastolic congestive heart failure along with slight pleural effusion 3 bilateral pleural effusions 4 end-stage renal disease on hemodialysis 5 type 2 diabetes on insulin 7 hypothyroidism 8 anasarca and chronic edema combination of kidney failure along with diastolic heart failure 9 hyperlipidemia: 10 known cardiovascular heart disease: Post angioplasty and stent placement back in October 2020. 11 history of gout: Disposition home Patient Condition at Discharge: Fair Plan - Discharge Summary New Discharge Prescriptions: No Action Atorvastatin [Lipitor] 40 mg PO HS Levothyroxine Sodium 100 mcg PO HS Torsemide [Demadex] 40 mg PO DAILY Bryanna-Olimpia 1 tab PO DAILY Carvedilol [Coreg] 6.25 mg PO HS Allopurinol [Zyloprim] 300 mg PO HS Aspirin 81 mg PO DAILY #90 chew Nitroglycerin Sl Tabs [Nitrostat] 0.4 mg SUBLINGUAL Q5M PRN #25 tab PRN Reason: Chest Pain Calcium Acetate [PhosLo] 1,334 mg PO TID-W/MEALS tab Clopidogrel Bisulfate [Plavix] 75 mg PO DAILY Lactulose [Cephulac] 30 gm PO DAILY PRN PRN Reason: Constipation Insulin Regular, Human [Novolin R Flexpen] 30 unit SQ ACHS HYDROcodone/APAP 10-325MG [Brandon 10-325] 1 tab PO QID PRN PRN Reason: Pain Insulin Detemir [Levemir Flextouch] 60 units SQ HS Discharge Medication List Atorvastatin [Lipitor] 40 mg PO HS 08/07/14 [History] Levothyroxine Sodium 100 mcg PO HS 07/06/17 [History] Torsemide [Demadex] 40 mg PO DAILY 09/10/19 [History] Allopurinol [Zyloprim] 300 mg PO HS 10/20/20 [History] Carvedilol [Coreg] 6.25 mg PO HS 10/20/20 [History] Bryanna-Olimpia 1 tab PO DAILY 10/20/20 [History] Aspirin 81 mg PO DAILY #90 chew 10/22/20 [Rx] Calcium Acetate [PhosLo] 1,334 mg PO TID-W/MEALS tab 10/23/20 [Rx] Nitroglycerin Sl Tabs [Nitrostat] 0.4 mg SUBLINGUAL Q5M PRN #25 tab 10/23/20 [Rx] Clopidogrel Bisulfate [Plavix] 75 mg PO DAILY 11/24/20 [History] HYDROcodone/APAP 10-325MG [Brandon 10-325] 1 tab PO QID PRN 11/24/20 [History] Insulin Regular, Human [Novolin R Flexpen] 30 unit SQ ACHS 11/24/20 [History] Lactulose [Cephulac] 30 gm PO DAILY PRN 11/24/20 [History] Insulin Detemir [Levemir Flextouch] 60 units SQ HS 02/05/21 [History] Follow up Appointment(s)/Referral(s): Hyaes Oshea MD [Primary Care Provider] - 1-2 days
== END 2021-02-07 16:20 | disposition home or self-care (01) | DRG 291 ==
LOC: EC 11:13 → 3SCARD 14:58
PROVIDERS: ADMIT Internal Medicine Geriatric Medicine; ATTEND Internal Medicine Geriatric Medicine
PROC: 5A1D70Z Performance of Urinary Filtration, Intermittent, Less than 6 Hours Per Day (ICD-10-PCS; principal; 2021-02-06)
DX: I13.2 Hypertensive heart and chronic kidney disease with heart failure and with stage 5 chronic kidney disease, or end stage renal disease (principal); I50.43 Acute on chronic combined systolic (congestive) and diastolic (congestive) heart failure; N18.6 End stage renal disease; I31.3 Pericardial effusion (noninflammatory); Z68.42 Body mass index [BMI] 45.0-49.9, adult; E66.01 Morbid (severe) obesity due to excess calories; E11.22 Type 2 diabetes mellitus with diabetic chronic kidney disease; E11.41 Type 2 diabetes mellitus with diabetic mononeuropathy; E11.319 Type 2 diabetes mellitus with unspecified diabetic retinopathy without macular edema; E03.9 Hypothyroidism, unspecified; E78.5 Hyperlipidemia, unspecified; G47.33 Obstructive sleep apnea (adult) (pediatric); Z99.2 Dependence on renal dialysis; Z96.1 Presence of intraocular lens; Z95.5 Presence of coronary angioplasty implant and graft; Z87.891 Personal history of nicotine dependence; Z86.73 Personal history of transient ischemic attack (TIA), and cerebral infarction without residual deficits; I25.2 Old myocardial infarction; I25.10 Atherosclerotic heart disease of native coronary artery without angina pectoris; H54.7 Unspecified visual loss; D63.1 Anemia in chronic kidney disease; Z79.4 Long term (current) use of insulin; Z79.82 Long term (current) use of aspirin; Z79.02 Long term (current) use of antithrombotics/antiplatelets; Z79.899 Other long term (current) drug therapy; F41.9 Anxiety disorder, unspecified; E83.89 Other disorders of mineral metabolism; Z20.822 Contact with and (suspected) exposure to COVID-19
CPT/HCPCS: 36415; 71046; 71275; 76604; 80048; 80053; 82728; 83036; 83540; 83550; 83605; 83880; 84484; 85025; 85379; 85610; 85730; 87635; 90935; 93005; 93308; 99285

== ENCOUNTER → 2021-02-17 | Outpatient (CLI) | payer MEDICARE, BC ==
--- NOTE | 2021-02-17 15:40 | P.BASOAP ---
Subjective Progress Note Date: 02/17/21 Principal diagnosis: Morbid obesity Patient returns to the bariatric clinic. Last seen in October 2016. Since then the patient has lost about 80-90 pounds. Most of this appears to be related to dialysis and improvement in fluid status. Patient has had multiple recent medical issues including [place], admissions for CHF, end-stage renal disease on dialysis, left finger amputations. Lately has had some issues with dysphagia in the morning. Has had a couple episodes of vomiting. Here to have band loosened or emptied. No abdominal pain. Objective - Vital Signs Vital signs: Vital Signs Temp 98.7 F 02/17/21 15:29 Pulse 90 02/17/21 15:29 Resp 16 02/17/21 15:29 BP 129/56 02/17/21 15:29 Pulse Ox Intake & Output 02/16/21 02/17/21 02/17/21 18:59 06:59 18:59 Weight 148.325 kg - Exam MAbdomen: Soft, nontender, nondistended Assessment/Plan (1) Morbid obesity Narrative/Plan: Options reviewed. Patient I agreed to empty the band at this time. His band was accessed. 4 mL was removed. Last visit notes that I have available to me suggests 7.7 mL in the band however patient states he remembered having 3 mL removed in the past. The band is now considered empty. He will monitor his symptoms and contact me with any difficulties. Plan: Date: 02/17/21 Initial Weight: 187.079 kg Initial BMI: 58.3 Current Weight: 148.325 kg Current BMI: 46.2 Type of Surgery: Total Volume in Band: Previous Volume: Volume Removed: Volume Added: Band Size:
== END ==
CPT/HCPCS: 99212

== ENCOUNTER 2021-03-11 10:13 | Inpatient (IN) | payer MEDICARE, BC ==
--- NOTE | 2021-03-11 10:31 | ED ---
General Adult HPI - General Stated complaint: SOB Time Seen by Provider: 03/11/21 10:19 Source: patient, RN notes reviewed, old records reviewed - History of Present Illness Initial comments: 60-year-old male presenting for evaluation of generalized weakness. Patient has got good medical history including CAD, end-stage renal disease, CHF. He states that he's had some generalized weakness and several falls. [facility] chronic finger wounds on the left hand. He had fallen at the office with minimal head injury. He was transported by EMS for evaluation. He denies chest pain or abdominal pain. Denies fever or chills. He was noted to have some EKG changes and was transported as a priority 1. No active chest pain. Previous history of CAD status post stenting in October of this year currently on dual antiplatelet medication. - Related Data Home Medications Medication Instructions Recorded Confirmed Atorvastatin [Lipitor] 40 mg PO HS 08/07/14 02/18/21 Levothyroxine Sodium 100 mcg PO HS 07/06/17 02/18/21 Torsemide [Demadex] 40 mg PO DAILY 09/10/19 02/18/21 Allopurinol [Zyloprim] 300 mg PO HS 10/20/20 02/18/21 Carvedilol [Coreg] 6.25 mg PO HS 10/20/20 02/18/21 Bryanna-Olimpia 1 tab PO DAILY 10/20/20 02/18/21 Clopidogrel Bisulfate [Plavix] 75 mg PO DAILY 11/24/20 02/18/21 HYDROcodone/APAP 10-325MG [Hawkins 1 tab PO QID PRN 11/24/20 02/18/21 10-325] Insulin Regular, Human [Novolin R 30 unit SQ ACHS 11/24/20 02/18/21 Flexpen] Lactulose [Cephulac] 30 gm PO DAILY PRN 11/24/20 02/18/21 Insulin Detemir [Levemir Flextouch] 60 units SQ HS 02/05/21 02/18/21 Previous Rx's Medication Instructions Recorded Aspirin 81 mg PO DAILY #90 chew 10/22/20 Calcium Acetate [PhosLo] 1,334 mg PO TID-W/MEALS tab 10/23/20 Nitroglycerin Sl Tabs [Nitrostat] 0.4 mg SUBLINGUAL Q5M PRN #25 tab 10/23/20 Allergies Allergy/AdvReac Type Severity Reaction Status Date / Time No Known Allergies Allergy Verified 03/11/21 11:17 Review of Systems ROS Statement: Those systems with pertinent positive or pertinent negative responses have been documented in the HPI. ROS Other: All systems not noted in ROS Statement are negative. Past Medical History Past Medical History: Coronary Artery Disease (CAD), Cancer, Heart Failure, CVA/TIA, Diabetes Mellitus, Eye Disorder, Hypertension, [place]ocardial Infarction ([place]), Renal Disease, Sleep Apnea/CPAP/BIPAP, Thyroid Disorder Additional Past Medical History / Comment(s): IDDM type II, neuropathy bilateral lower extremity/feet, bilateral eye diabetic retinopathy/poor vision/multiple injections, ESRD with hemodialysis T//TUE, anemia, "mini strokes" x2, AVANI with CPap use, occasional low back pain/disc disease, gout, hypothyroid, pt recieved [employer] covid 19 vaccine. zpt. had 2 stents placed after [place]. Last Myocardial Infarction Date:: 10/20/20 History of Any Multi-Drug Resistant Organisms: None Reported Past Surgical History: Adenoidectomy, Bariatric Surgery, Cholecystectomy, Heart Catheterization, Heart Catheterization With Stent, Orthopedic Surgery, Tonsillectomy Additional Past Surgical History / Comment(s): 10/22/20 PCI with stents, lap banding, FX of right ankle repair pins / plate, fistual lt arm jul 2018, lt shoulder sx (d/t separation), colonoscopies, bilateral cataract removals/lens implants. Past Anesthesia/Blood Transfusion Reactions: Motion Sickness Additional Past Anesthesia/Blood Transfusion Reaction / Comment(s): CLAUSTERPHOBIA Date of Last Stent Placement:: 10/22/20 Past Psychological History: Anxiety Additional Psychological History / Comment(s): USES ATIVAN FOR MILD ANXIETY /SLEEP. Pt resides with his spouse. He can no longer drive d/t vision. He uses no assistive device. Smoking Status: Former smoker Past Alcohol Use History: None Reported Additional Past Alcohol Use History / Comment(s): Patient was a smoker of 2-3 packs per day for 35 years and quit in 2006. Past Drug Use History: None Reported - Past Family History Mother History Unknown: Yes Family Medical History: Coronary Artery Disease (CAD), Myocardial Infarction ([place]) Additional Family Medical History / Comment(s): Mother at age 58 from multiple sclerosis Father Family Medical History: CVA/TIA, Myocardial Infarction ([place]) Additional Family Medical History / Comment(s): Father had history of [place] and CVA followed by a second [place] and CVA and at age 65. Brother(s) Additional Family Medical History / Comment(s): . General Exam General appearance: alert, in no apparent distress Head exam: Present: atraumatic, normocephalic Eye exam: Present: normal appearance, PERRL ENT exam: Present: normal exam Neck exam: Present: normal inspection. Absent: tenderness, meningismus Respiratory exam: Present: rales, decreased breath sounds. Absent: respiratory distress, wheezes Cardiovascular Exam: Present: regular rate, normal rhythm GI/Abdominal exam: Present: soft. Absent: distended, tenderness, guarding Extremities exam: Present: normal capillary refill, pedal edema Neurological exam: Present: alert, oriented X3, CN II-XII intact. Absent: motor sensory deficit Psychiatric exam: Present: normal affect, normal mood Skin exam: Present: warm, dry, intact. Absent: cyanosis, diaphoretic Course Vital Signs 03/11/21 03/11/21 10:15 11:34 Temperature 98.5 F Pulse Rate 90 78 Respiratory 20 20 Rate Blood Pressure 113/57 104/56 O2 Sat by Pulse 99 97 Oximetry - Reevaluation(s) Reevaluation #1: 03/11/21 10:25 Case discussed with Florinda pabon for cardiology regarding presentation and prehospital EKGs. EKG Findings - EKG Comments: EKG Findings:: Normal sinus rhythm, rate of 91, MD interval 170, QRS duration 86, QTC 420, there is some MD depression in the inferior leads I do not see elevation, no reciprocal change. Medical Decision Making - Medical Decision Making 60-year-old male with [employer] recent medical history presenting with generalized weakness, dyspnea. EKG showing sinus rhythm. Chest x-ray showing significant cardiomegaly and trace bilateral effusions, no focal pneumonia. He has a leukocytosis which is unchanged from recent lab testing. Hemoglobin 10.5 which is stable. Minor electrolyte abnormalities. He is in a hemodialysis patient with abnormal kidney function at baseline. Troponin is negative. He had a head trauma and CT was performed which is negative for intracranial hemorrhage or mass effect. He will be admitted. Dr. Swain has evaluated the patient in the emergency department. He will be admitted to Dr. Jimenez who is aware. - Lab Data Result diagrams: 03/11/21 10:28 03/11/21 10:28 Lab Results 03/11/21 03/11/21 03/11/21 Range/Units 10:28 10:28 10:28 WBC 14.1 H (3.8-10.6) k/uL RBC 3.34 L (4.30-5.90) m/uL Hgb 10.5 L (13.0-17.5) gm/dL Hct 32.1 L (39.0-53.0) % MCV 96.1 (80.0-100.0) fL MCH 31.3 (25.0-35.0) pg MCHC 32.6 (31.0-37.0) g/dL RDW 18.1 H (11.5-15.5) % Plt Count 234 (150-450) k/uL MPV 7.5 Neutrophils % 87 % Lymphocytes % 6 % Monocytes % 5 % Eosinophils % 1 % Basophils % 0 % Neutrophils # 12.2 H (1.3-7.7) k/uL Lymphocytes # 0.9 L (1.0-4.8) k/uL Monocytes # 0.7 (0-1.0) k/uL Eosinophils # 0.1 (0-0.7) k/uL Basophils # 0.1 (0-0.2) k/uL Hypochromasia Slight Anisocytosis Slight Macrocytosis Slight PT 10.0 (9.0-12.0) sec INR 0.9 (<1.2) APTT 27.5 (22.0-30.0) sec Sodium 133 L (137-145) mmol/L Potassium 5.3 H (3.5-5.1) mmol/L Chloride 90 L (98-107) mmol/L Carbon Dioxide 30 (22-30) mmol/L Anion Gap 13 mmol/L BUN 37 H (9-20) mg/dL Creatinine 5.83 H (0.66-1.25) mg/dL Est GFR (CKD-EPI)AfAm 11 (>60 ml/min/1.73 sqM) Est GFR (CKD-EPI)NonAf 10 (>60 ml/min/1.73 sqM) Glucose 153 H (74-99) mg/dL Plasma Lactic Acid Oscar (0.7-2.0) mmol/L Calcium 9.1 (8.4-10.2) mg/dL Magnesium 4.2 H (1.6-2.3) mg/dL Total Bilirubin 0.4 (0.2-1.3) mg/dL AST 25 (17-59) U/L ALT 23 (4-49) U/L Alkaline Phosphatase 99 (38-126) U/L Troponin I (0.000-0.034) ng/mL Total Protein 7.3 (6.3-8.2) g/dL Albumin 4.1 (3.5-5.0) g/dL 03/11/21 03/11/21 Range/Units 10:28 10:28 WBC (3.8-10.6) k/uL RBC (4.30-5.90) m/uL Hgb (13.0-17.5) gm/dL Hct (39.0-53.0) % MCV (80.0-100.0) fL MCH (25.0-35.0) pg MCHC (31.0-37.0) g/dL RDW (11.5-15.5) % Plt Count (150-450) k/uL MPV Neutrophils % % Lymphocytes % % Monocytes % % Eosinophils % % Basophils % % Neutrophils # (1.3-7.7) k/uL Lymphocytes # (1.0-4.8) k/uL Monocytes # (0-1.0) k/uL Eosinophils # (0-0.7) k/uL Basophils # (0-0.2) k/uL Hypochromasia Anisocytosis Macrocytosis PT (9.0-12.0) sec INR (<1.2) APTT (22.0-30.0) sec Sodium (137-145) mmol/L Potassium (3.5-5.1) mmol/L Chloride (98-107) mmol/L Carbon Dioxide (22-30) mmol/L Anion Gap mmol/L BUN (9-20) mg/dL Creatinine (0.66-1.25) mg/dL Est GFR (CKD-EPI)AfAm (>60 ml/min/1.73 sqM) Est GFR (CKD-EPI)NonAf (>60 ml/min/1.73 sqM) Glucose (74-99) mg/dL Plasma Lactic Acid Oscar 3.0 H* (0.7-2.0) mmol/L Calcium (8.4-10.2) mg/dL Magnesium (1.6-2.3) mg/dL Total Bilirubin (0.2-1.3) mg/dL AST (17-59) U/L ALT (4-49) U/L Alkaline Phosphatase (38-126) U/L Troponin I <0.012 (0.000-0.034) ng/mL Total Protein (6.3-8.2) g/dL Albumin (3.5-5.0) g/dL Disposition Clinical Impression: Congestive heart failure, ESRD (end stage renal disease) Disposition: ADMITTED IP TO THIS [facility] Condition: Stable Is patient prescribed a controlled substance at d/c from ED?: No Referrals: Hayes Oshea MD [Primary Care Provider] - 1-2 days Decision to Admit Reason: Admit from EC Decision Date: 03/11/21 Decision Time: 12:12
[2021-03-11 10:52] LABS: Anisocytosis Slight; Basophils # (A) 0.1 k/uL (0-0.2); Basophils % (A) 0 %; Eosinophils # (A) 0.1 k/uL (0-0.7); Eosinophils % (A) 1 %; HCT 32.1 % (39.0-53.0); HGB 10.5 gm/dL (13.0-17.5); Hypochromasia Slight; Lymphocytes # (A) 0.9 k/uL (1.0-4.8); Lymphocytes % (A) 6 %; MCH 31.3 pg (25.0-35.0); MCHC 32.6 g/dL (31.0-37.0); MCV 96.1 fL (80.0-100.0); Macrocytosis Slight; Mean Platelet Volume 7.5; Monocytes # (A) 0.7 k/uL (0-1.0); Monocytes % (A) 5 %; Neutrophils # (A) 12.2 k/uL (1.3-7.7); Neutrophils % (A) 87 %; Platelet Count 234 k/uL (150-450); RBC 3.34 m/uL (4.30-5.90); RDW 18.1 % (11.5-15.5); WBC 14.1 k/uL (3.8-10.6)
--- NOTE | 2021-03-11 10:52 | XR ---
EXAMINATION TYPE: XR chest 2V DATE OF EXAM: 03/11/2021 COMPARISON: NONE HISTORY: Shortness of breath, the patient fell twice this morning. Dialysis. TECHNIQUE: Frontal and lateral views of the chest are obtained. FINDINGS: Heart size is grossly enlarged. Blunting of the costophrenic angle suggestive of tiny pleur al effusions. No focal consolidation or pneumothorax. IMPRESSION: 1. Gross cardiomegaly. 2. Blunting the costophrenic angle suggestive of tiny pleural effusions.
[2021-03-11 11:01] LABS: Albumin 4.1 g/dL (3.5-5.0); Calcium 9.1 mg/dL (8.4-10.2); Magnesium 4.2 mg/dL (1.6-2.3); Potassium 5.3 mmol/L (3.5-5.1); Total Bilirubin 0.4 mg/dL (0.2-1.3); Total Protein 7.3 g/dL (6.3-8.2)
[2021-03-11 11:15] LABS: INR 0.9 (<1.2); Partial Thromboplastin Time 27.5 sec (22.0-30.0)
--- NOTE | 2021-03-11 11:16 | CT ---
EXAMINATION TYPE: CT brain wo con DATE OF EXAM: 03/11/2021 COMPARISON: 12/30/2020 INDICATION: weakness and fall DLP: 1202.4 mGycm, Automated exposure control for dose reduction was used. CONTRAST: None CT of the brain is performed utilizing 3 mm thick sections through the posterior fossa and 3 mm thick sections through the remaining calvarium. Study is performed within 24 hours of arrival to the hosp ital. No abnormal hyperdensity is present to suggest an acute intracranial hemorrhage. No mass lesion is evident. No acute infarcts are evident. Ventricles and sulci are appropriate for the patient age. Paranasal sinuses and mastoid air cells within the [id number] are clear. IMPRESSIONS: 1. No acute intracranial process.
[2021-03-11] MEDS ORDERED: ACETAMINOPHEN TAB 325 MG TAB PO PRN (12:07)
[2021-03-11] MEDS ORDERED: NALOXONE 0.4 MG/ML 1 ML VIAL IV PRN (12:07)
--- NOTE | 2021-03-11 13:04 | P.CRDCN ---
History of Present Illness Consult date: 03/11/21 History of present illness: HISTORY OF PRESENT ILLNESS: This is a 60-year-old male with a past medical history significant for coronary artery disease with PCI to the RCA in October 2020, pericardial effusion with tamponade status post pericardial window in November 2020 End-stage renal disease on hemodialysis, hypertension, hyperlipidemia, and d iabetes mellitus. Patient follows in the office with Dr. Liz. We have been asked to see the patient in consultation for possible abnormal EKG. Patient examined at the bedside in the emergency room. Patient presented to the hospital secondary to generalized weakness. Patient states he fell twice at home recently. Cardiology was notified by the emergency room physician for possible STEMI. Patient had a EKG completed by EMS revealing possible inferior STEMI. EKG completed in the ER did not reveal ST elevation. Patients abnormalities on EKG have been present in the past and are not acute changes. Patient denies chest pain or pressure. He denies chest breath. Denies dizziness or lig htheadedness. Patient states he has been going to dialysis and had hemodialysis yesterday. Blood pressure 104/56. Heart rate in the 70s. He is on room air with oxygen saturations greater then 92%. He is afebrile. EKG reveals sinus mechanism with no signs of acute ischemia. Unchanged from prior EKGs Chest xray gross cardiomegaly. Possible tiny pleural effusions Laboratory data: WBC 14.1. Hemoglobin 10.5. Platelet count 234. Sodium 133. Potassium 5.3. BUN 37. Creatinine 5.83. Lactic acid 3.0. Troponin negative 1. Current home cardiac medications include aspirin 81 mg daily, Lipitor 40 mg daily, Plavix 75 g daily, Coreg 6.25 mg at night and 3.125 mg in the morning, Demadex 40 mg daily Most recent echocardiogram obtained in January 2021 was a limited study with ejection fraction 6065% and no pericardial effusion Cardiac catheterization history: October 2020 revealing 95% stenosis of the mid RCA. Patient underwent PCI to RCA. REVIEW OF SYSTEMS: At the time of my exam: CONSTITUTIONAL: Denies fever or chills. HEENT: Denies blurred vision, vision changes, or eye pain. Denies hemoptysis CARDIOVASCULAR: Denies chest pain. Denies orthopnea. Denies PND. Denies palpitations RESPIRATORY: Denies shortness of breath. GASTROINTESTINAL: Denies abdominal pain. Denies nausea or vomiting. HEMATOLOGIC: Denies bleeding disorders. GENITOURINARY: Denies any blood in urine. SKIN: Denies pruitis. Denies rash. PHYSICAL EXAM: VITAL SIGNS: Reviewed. GENERAL: Well-developed in no acute distress. HEENT: Head is normocephalic. Pupils are equal, round. Sclerae anicteric. Mucous membranes of the mouth are moist. Neck supple. No JVD or thyromegaly LUNGS: Respirations even and unlabored. Lungs diminished bilaterally. HEART: Regular rate and rhythm. S1 and S2 heard. ABDOMEN: Soft. Nondistended. Nontender. EXTREMITIES: Normal range of motion. No clubbing or cyanosis. Peripheral pulses intact. No lower extremity edema NEUROLOGIC: Awake and alert. Oriented x 3. ASSESSMENT: Denies weakness Status post fall 2 at home Coronary artery disease with PCI to RCA, October 2020 History of pericardial effusion with tamponade, status post pericardial window, November 2020 End-stage renal disease on hemodialysis Hypertension Hyperlipidemia Diabetes mellitus Obesity: BMI 45.5 PLAN: An acute coronary event has been ruled out Resume home cardiac medications No further inpatient recommendations from a cardiac standpoint We will sign off. Please reconsult if needed. Nurse practitioner note has been reviewed by physician. Signing provider agrees with the documented findings, assessment, and plan of care. Past Medical History Past Medical History: Coronary Artery Disease (CAD), Cancer, Heart Failure, CVA/TIA, Diabetes Mellitus, Eye Disorder, Hypertension, Myocardial Infarction ([place]), Renal Disease, Sleep Apnea/CPAP/BIPAP, Thyroid Disorder Additional Past Medical History / Comment(s): IDDM type II, neuropathy bilateral lower extremity/feet, bilateral eye diabetic retinopathy/poor vision/multiple injections, ESRD with hemodialysis T//TUE, anemia, "mini strokes" x2, AVANI with CPap use, occasional low back pain/disc disease, gout, hypothyroid, pt recieved [employer] covid 19 vaccine. zpt. had 2 stents placed after [place]. Last Myocardial Infarction Date:: 10/20/20 History of Any Multi-Drug Resistant Organisms: None Reported Past Surgical History: Adenoidectomy, Bariatric Surgery, Cholecystectomy, Heart Catheterization, Heart Catheterization With Stent, Orthopedic Surgery, Tonsillectomy Additional Past Surgical History / Comment(s): 10/22/20 PCI with stents, lap banding, FX of right ankle repair pins / plate, fistual lt arm jul 2018, lt shoulder sx (d/t separation), colonoscopies, bilateral cataract removals/lens implants. Past Anesthesia/Blood Transfusion Reactions: Motion Sickness Additional Past Anesthesia/Blood Transfusion Reaction / Comment(s): CLAUSTERPHOBIA Date of Last Stent Placement:: 10/22/20 Past Psychological History: Anxiety Additional Psychological History / Comment(s): USES ATIVAN FOR MILD ANXIETY /SLEEP. Pt resides with his spouse. He can no longer drive d/t vision. He uses no assistive device. Smoking Status: Former smoker Past Alcohol Use History: None Reported Additional Past Alcohol Use History / Comment(s): Patient was a smoker of 2-3 packs per day for 35 years and quit in 2006. Past Drug Use History: None Reported - Past Family History Mother History Unknown: Yes Family Medical History: Coronary Artery Disease (CAD), Myocardial Infarction ([place]) Additional Family Medical History / Comment(s): Mother at age 58 from multiple sclerosis Father Family Medical History: CVA/TIA, Myocardial Infarction ([place]) Additional Family Medical History / Comment(s): Father had history of [place] and CVA followed by a second [place] and CVA and at age 65. Brother(s) Additional Family Medical History / Comment(s): . Medications and Allergies Home Medications Medication Instructions Recorded Confirmed Type Atorvastatin [Lipitor] 40 mg PO HS 08/07/14 03/11/21 History Levothyroxine Sodium 100 mcg PO HS 07/06/17 03/11/21 History Torsemide [Demadex] 40 mg PO DAILY 09/10/19 03/11/21 History Allopurinol [Zyloprim] 300 mg PO HS 10/20/20 03/11/21 History Carvedilol [Coreg] 6.25 mg PO HS 10/20/20 03/11/21 History Bryanna-Olimpia 1 tab PO DAILY 10/20/20 03/11/21 History Aspirin 81 mg PO DAILY #90 chew 10/22/20 03/11/21 Rx Clopidogrel Bisulfate [Plavix] 75 mg PO DAILY 11/24/20 03/11/21 History HYDROcodone/APAP 10-325MG [Kyle 1 tab PO QID PRN 11/24/20 03/11/21 History 10-325] Insulin Regular, Human [Novolin R See Protocol SQ ACHS 11/24/20 03/11/21 History Flexpen] Insulin Detemir [Levemir Flextouch] 60 units SQ HS 02/05/21 03/11/21 History Calcium Acetate [PhosLo] 1,334 mg PO AC-TID 03/11/21 03/11/21 History LORazepam [Ativan] 0.5 mg PO BID PRN 03/11/21 03/11/21 History Nitroglycerin Sl Tabs [Nitrostat] 0.4 mg SL Q5M PRN 03/11/21 03/11/21 History Sulfamethox-Tmp 800-160Mg [Bactrim 1 tab PO BID 03/11/21 03/11/21 History DS 800-160 mg] carvediloL [Coreg] 3.125 mg PO SUMOWEFR@0900 03/11/21 03/11/21 History carvediloL [Coreg] 3.125 mg PO TUTHSA@1200 03/11/21 03/11/21 History Allergies Allergy/AdvReac Type Severity Reaction Status Date / Time No Known Allergies Allergy Verified 03/11/21 12:34 Physical Exam Vitals: Vital Signs Temp Pulse Resp BP Pulse Ox 03/11/21 11:34 78 20 104/56 97 03/11/21 10:15 98.5 F 90 20 113/57 99 Intake and Output 03/10/21 03/11/21 03/11/21 22:59 06:59 14:59 Other: Weight 147.871 kg Results 03/11/21 10:28 03/11/21 10:28 Cardiac Enzymes 03/11/21 03/11/21 Range/Units 10:28 10:28 AST 25 (17-59) U/L Troponin I <0.012 (0.000-0.034) ng/mL Coagulation 03/11/21 Range/Units 10:28 PT 10.0 (9.0-12.0) sec APTT 27.5 (22.0-30.0) sec CBC 03/11/21 Range/Units 10:28 WBC 14.1 H (3.8-10.6) k/uL RBC 3.34 L (4.30-5.90) m/uL Hgb 10.5 L (13.0-17.5) gm/dL Hct 32.1 L (39.0-53.0) % Plt Count 234 (150-450) k/uL Comprehensive Metabolic Panel 03/11/21 Range/Units 10:28 Sodium 133 L (137-145) mmol/L Potassium 5.3 H (3.5-5.1) mmol/L Chloride 90 L (98-107) mmol/L Carbon Dioxide 30 (22-30) mmol/L BUN 37 H (9-20) mg/dL Creatinine 5.83 H (0.66-1.25) mg/dL Glucose 153 H (74-99) mg/dL Calcium 9.1 (8.4-10.2) mg/dL AST 25 (17-59) U/L ALT 23 (4-49) U/L Alkaline Phosphatase 99 (38-126) U/L Total Protein 7.3 (6.3-8.2) g/dL Albumin 4.1 (3.5-5.0) g/dL Current Medications Generic Name Dose Route Start Last Admin Trade Name Freq PRN Reason Stop Dose Admin Acetaminophen 650 mg 03/11/21 12:07 Acetaminophen Tab 325 Mg Tab PO Q6HR PRN Mild Pain or Fever > 100.5 Naloxone HCl 0.2 mg 03/11/21 12:07 Naloxone 0.4 Mg/Ml 1 Ml Vial IV Q2M PRN Opioid Reversal Intake and Output 03/10/21 03/11/21 03/11/21 22:59 06:59 14:59 Other: Weight 147.871 kg Patient Weight 03/12/21 06:59 Weight 147.871 kg 03/11/21 10:28 03/11/21 10:28
[2021-03-11] MEDS ORDERED: NITROGLYCERIN SL TABS 0.4 MG TAB SUBLINGUAL PRN (13:12)
[2021-03-11] MEDS ORDERED: LORazepam 0.5 MG TAB PO PRN (13:12)
--- NOTE | 2021-03-11 14:56 | P.HPIM ---
History of Present Illness H&P Date: 03/11/21 Chief Complaint: Generalized weakness, shortness of breath HISTORY OF PRESENT ILLNESS: 60-year-old morbidly obese male one of Dr. Oshea and Dr. Liz patient with past medical history of type 2 diabetes on insulin, end-stage renal disease on hemodialysis on via left upper arm fistula who was diagnosed back in October this year with ischemic heart disease ended up having 2 stents placement to the RCA in October 2020, pericardial effusion with tamponade status post pericardial window in November 2020, hypertension, h yperlipidemia, diabetes mellitus type 2, hypothyroidism, morbid obesity with BMI 45 status post lap band. Patient had recent hospitalization in January of this year for atypical chest pain and acute coronary syndrome was ruled out. He was treated for acute on chronic diastolic heart failure and slight pleural effusion. He should states he has been doing very well at home and has followed up with his PCP. Yesterday he developed shortness of breath and his legs felt weak. He does not normally use walker or cane. He states he fell twice today. Once the [facility] [employer] parking lot and once at [employer]. He did have one previous fall about 3-4 weeks ago. He states he has decreased appetite at dinner time but eats well throughout the day. He does make some urine and has not noticed much change. He denies any loss of consciousness. He states his left knee feels a little sore. He may have hit his head slightly. He underwent dialysis yesterday as scheduled. Patient presented to [facility] emergency center for evaluation. He was found to be afebrile, heart rate 90, blood pressure 113/57, pulse ox 99% on room air. EKG was a sinus rhythm with no acute ST changes. WBC 14.1, hemoglobin 10.5 platelet count 234, sodium 133, potassium 5.3, chloride 90, CO2 30, BUN 37 and creatinine 5.83. Blood sugar 153. Magnesium 4.2. Calcium 9.1. Total bilirubin 0.4, AST 25, ALT 23, alkaline phosphatase 99. Albumin 4.1. Lactic acid 3.0 troponin negative. CAT scan of the brain showed no acute intracranial process. Chest x-ray reveals gross cardiomegaly. Blunting of the costophrenic angle suggestive tiny pleural effusions. Patient to be admitted to the [facility] floor and cardiology consult obtained REVIEW OF SYSTEMS: Constitutional: No fever, no chills, no night sweats. No weight change. Reports weakness, reports fatigue no lethargy. No daytime sleepiness. Morbidly obese does not look in any respiratory distress EENT: No headache. No blurred vision or double vision, no loss of vision. No loss of Hearing, no ringing in the ears, no dizziness. No nasal drainage or congestion. No epistaxis. No sore throat. Lungs: Reports chronic shortness of breath with mild cough and wheezes. Cardiovascular: Denies chest pain, no PND no orthopnea no palpitation exertional shortness of breath.. Abdominal: No abdominal pain. No nausea, vomiting. No diarrhea. No constipation. No bloody or tarry stools ports decreased appetite at dinner.e. Genitourinary: No dysuria, increased frequency, urgency. No urinary retention. End-stage renal disease on hemodialysis Musculoskeletal: No myalgias. No muscle weakness, no gait dysfunction, no frequent falls. Positive lower back pain with slight arthritic pain and mild edema.. Integumentary: No wounds, no lesions. No rash or pruritus. No unusual bruising. No change in hair or nails. Neurologic: No aphasia. No facial droop. No change in mentation. No head injury. No headache. No paralysis. No paresthesia. Psychiatric: No depression. No anxiety. No mood swings. Endocrine: No abnormal blood sugars. No weight change. No excessive sweating or thirst. No cold intolerance. SOCIAL HISTORY Patient is a former smoker who quit few month ago he smoked for many years, likely abuse, no drug use. Patient is on disability on hemodialysis 3 times a week. FAMILY HISTORY His mother age 58 from multiple sclerosis, father dying at age 65 from myocardial infarction and stroke PHYSICAL EXAMINATION Gen: This is a morbidly obese 60-year-old male on the ER stretcher lying flat with no acute respiratory distress. HEENT: Head is atraumatic, normocephalic. Pupils equal, round. Sclerae is an icteric. NECK: Supple. No JVD. No lymphadenopathy. No thyromegaly. LUNGS: Decreased breath sounds bilaterally. No wheezing, no accessory muscle usag. HEART: Regular rhythm and rate S1-S2 positive S3 no JVD. ABDOMEN: Soft. Positive Bowel sounds . No masses. No tenderness. EXTREMITIES: no edema with slight discoloration from the knee down decreased pulse and dorsalis pedis posterior tibial. NEUROLOGICAL: Patient is awake, alert and oriented x3. Cranial nerves 2 through 12 are grossly intact. ASSESSMENT AND PLAN 1. Generalized weakness to bilateral lower extremities with 2 falls today, decreased appetite and shortness of breath. Audiology consult appreciated. Consult with PT and OT. 2. Leukocytosis and lactic acidosis of unclear etiology. Repeat blood work tomorrow. 3. Left finger infection. Continue Bactrim 1 twice daily. [facility]. 4. Coronary artery disease with PCI to RCA and October 2020. Cardiology consult. Echocardiogram ordered. Continue Coreg at home dose, Plavix 75 mg daily, aspirin 81 mg daily, Lipitor 40 mg at bedtime, Demadex 40 mg daily. 5. History of pericardial effusion with tamponade, status post pericardial window in November 2020. 6. End-stage renal disease on hemodialysis . Nephrology consult, continue PhosLo 1334 mg 3 times daily before meals. 7. Hypertension. Continue Coreg at home dose. 7. Hyperlipidemia. Continue Lipitor. 8. Diabetes mellitus type 2. Continue Levemir 60 units at bedtime and NovoLog scale before meals and at bedtime 9. Morbid obesity with BMI of 45 status post lap band. 10. Hypothyroidism. Continue levothyroxine 100 g daily. Check TSH and free T4 11. Chronic gout. Continue allopurinol 300 mg at bedtime 12. GI prophylaxis. Protonix. 13. DVT prophylaxis. Heparin subcu. Patient will be admitted to the hospital for a minimum of 2 night stay. DISCHARGE PLAN TBD Impression and plan of care have been directed as dictated by the signing physician. Laine Jones nurse practitioner acting as scribe for signing physician. Past Medical History Past Medical History: Coronary Artery Disease (CAD), Cancer, Heart Failure, CVA/TIA, Diabetes Mellitus, Eye Disorder, Hypertension, Myocardial Infarction (CO), Renal Disease, Sleep Apnea/CPAP/BIPAP, Thyroid Disorder Additional Past Medical History / Comment(s): IDDM type II, neuropathy bilateral lower extremity/feet, bilateral eye diabetic retinopathy/poor vision/multiple injections, ESRD with hemodialysis T//TUE, anemia, "mini strokes" x2, AVANI with CPap use, occasional low back pain/disc disease, gout, hypothyroid, pt recieved pfizer covid 19 vaccine. zpt. had 2 stents placed after CO. Last Myocardial Infarction Date:: 10/20/20 History of Any Multi-Drug Resistant Organisms: None Reported Past Surgical History: Adenoidectomy, Bariatric Surgery, Cholecystectomy, Heart Catheterization, Heart Catheterization With Stent, Orthopedic Surgery, Tonsillectomy Additional Past Surgical History / Comment(s): 10/22/20 PCI with stents, lap banding, FX of right ankle repair pins / plate, fistual lt arm jul 2018, lt shoulder sx (d/t separation), colonoscopies, bilateral cataract removals/lens implants. Past Anesthesia/Blood Transfusion Reactions: Motion Sickness Additional Past Anesthesia/Blood Transfusion Reaction / Comment(s): CLAUSTERPHOBIA Date of Last Stent Placement:: 10/22/20 Past Psychological History: Anxiety Additional Psychological History / Comment(s): USES ATIVAN FOR MILD ANXIETY /SLEEP. Pt resides with his spouse. He can no longer drive d/t vision. He uses no assistive device. Smoking Status: Former smoker Past Alcohol Use History: None Reported Additional Past Alcohol Use History / Comment(s): Patient was a smoker of 2-3 packs per day for 35 years and quit in 2006. Past Drug Use History: None Reported - Past Family History Mother History Unknown: Yes Family Medical History: Coronary Artery Disease (CAD), Myocardial Infarction (CO) Additional Family Medical History / Comment(s): Mother at age 58 from multiple sclerosis Father Family Medical History: CVA/TIA, Myocardial Infarction (CO) Additional Family Medical History / Comment(s): Father had history of CO and CVA followed by a second CO and CVA and at age 65. Brother(s) Additional Family Medical History / Comment(s): . Medications and Allergies Home Medications Medication Instructions Recorded Confirmed Type Atorvastatin [Lipitor] 40 mg PO HS 08/07/14 03/11/21 History Levothyroxine Sodium 100 mcg PO HS 07/06/17 03/11/21 History Torsemide [Demadex] 40 mg PO DAILY 09/10/19 03/11/21 History Allopurinol [Zyloprim] 300 mg PO HS 10/20/20 03/11/21 History Carvedilol [Coreg] 6.25 mg PO HS 10/20/20 03/11/21 History Bryanna-Olimpia 1 tab PO DAILY 10/20/20 03/11/21 History Aspirin 81 mg PO DAILY #90 chew 10/22/20 03/11/21 Rx Clopidogrel Bisulfate [Plavix] 75 mg PO DAILY 11/24/20 03/11/21 History HYDROcodone/APAP 10-325MG [[place] 1 tab PO QID PRN 11/24/20 03/11/21 History 10-325] Insulin Regular, Human [Novolin R See Protocol SQ ACHS 11/24/20 03/11/21 History Flexpen] Insulin Detemir [Levemir Flextouch] 60 units SQ HS 02/05/21 03/11/21 History Calcium Acetate [PhosLo] 1,334 mg PO AC-TID 03/11/21 03/11/21 History LORazepam [Ativan] 0.5 mg PO BID PRN 03/11/21 03/11/21 History Nitroglycerin Sl Tabs [Nitrostat] 0.4 mg SL Q5M PRN 03/11/21 03/11/21 History Sulfamethox-Tmp 800-160Mg [Bactrim 1 tab PO BID 03/11/21 03/11/21 History DS 800-160 mg] carvediloL [Coreg] 3.125 mg PO SUMOWEFR@0900 03/11/21 03/11/21 History carvediloL [Coreg] 3.125 mg PO TUTHSA@1200 03/11/21 03/11/21 History Allergies Allergy/AdvReac Type Severity Reaction Status Date / Time No Known Allergies Allergy Verified 03/11/21 12:34 Physical Exam Vitals: Vital Signs Temp Pulse Resp BP Pulse Ox 03/11/21 11:34 78 20 104/56 97 03/11/21 10:15 98.5 F 90 20 113/57 99 Intake and Output 03/10/21 03/11/21 03/11/21 22:59 06:59 14:59 Other: Weight 147.871 kg Results CBC & Chem 7: 03/12/21 05:49 03/11/21 10:28 Labs: Abnormal Lab Results - Last 24 Hours (Table) 03/11/21 03/11/21 03/11/21 Range/Units 10:28 10:28 10:28 WBC 14.1 H (3.8-10.6) k/uL RBC 3.34 L (4.30-5.90) m/uL Hgb 10.5 L (13.0-17.5) gm/dL Hct 32.1 L (39.0-53.0) % RDW 18.1 H (11.5-15.5) % Neutrophils # 12.2 H (1.3-7.7) k/uL Lymphocytes # 0.9 L (1.0-4.8) k/uL Sodium 133 L (137-145) mmol/L Potassium 5.3 H (3.5-5.1) mmol/L Chloride 90 L (98-107) mmol/L BUN 37 H (9-20) mg/dL Creatinine 5.83 H (0.66-1.25) mg/dL Glucose 153 H (74-99) mg/dL Plasma Lactic Acid Oscar 3.0 H* (0.7-2.0) mmol/L Magnesium 4.2 H (1.6-2.3) mg/dL
[2021-03-11] MEDS: HYDROcodone/APAP 10-325MG 1 EACH TAB PO PRN ×2 (15:57→21:59)
--- NOTE | 2021-03-11 17:34 | ECHOF ---
Referral Reason:CHF MEASUREMENTS -------- HEIGHT: 180.3 cm WEIGHT: 147.9 kg BP: 104/56 IVSd: 1.8 cm (0.6 - 1.1) LVIDd: 4.4 cm (3.9 - 5.3) LVPWd: 1.6 cm (0.6 - 1.1) IVSs: 2.3 cm LVIDs: 3.0 cm LVPWs: 1.6 cm LAESV Index (A-L): 23.94 ml/m MV E Kenny: 1.15 m/s MV DecT: 221 ms MV A Kenny: 0.81 m/s MV E/A Ratio: 1.41 RAP: 5.00 mmHg RVSP: 37.35 mmHg FINDINGS -------- Sinus rhythm. This was a technically difficult study with suboptimal views. The left ventricular size is normal. There is moderate concentric left ventricular hypertrophy. O verall left ventricular systolic function is normal with, an EF between 55 - 60 %. The right ventricle is normal in size. Normal LA size by volume 22+/-6 ml/m2. The right atrial size is normal. Lumason used Interatrial and interventricular septum intact. The aortic valve was not well visualized. There is no evidence of aortic regurgitation. There is no evidence of aortic stenosis. The mitral valve was not well visualized. There is trace to mild mitral regurgitation. The tricuspid valve was not well visualized. Mild tricuspid regurgitation present. There is no ev idence of pulmonary hypertension. The right ventricular systolic pressure, as measured by Doppler, is 37.35mmHg. The pulmonic valve was not well visualized. The aortic root size is normal. IVC Not well visulized. There is no pericardial effusion. CONCLUSIONS -------- 1. The left ventricular size is normal. 2. There is moderate concentric left ventricular hypertrophy. 3. Overall left ventricular systolic function is normal with, an EF between 55 - 60 %. 4. There is trace to mild mitral regurgitation. SCREENING UNIT REGISTERED NURSE: Phyllis Drummond, [facility]
[2021-03-11] MEDS: CALCIUM ACETATE 667 MG TAB PO SCH (17:59)
[2021-03-11] MEDS: INSULIN ASPART (NovoLOG) 100 UNIT/ML VIAL SQ SCH ×2 (18:02→21:11)
[2021-03-11 18:03] LABS: Glucose,Whole Blood 331 mg/dL (75-99)
[2021-03-11 20:44] LABS: Glucose,Whole Blood 327 mg/dL (75-99)
[2021-03-11] MEDS: allopurinoL 300 MG TAB PO SCH (21:09)
[2021-03-11] MEDS: carvediloL 6.25 MG TAB PO SCH (21:10)
[2021-03-11] MEDS: HEPARIN SODIUM,PORCINE/PF 5,000 UNIT/0.5 ML SYRINGE SQ SCH (21:10)
[2021-03-11] MEDS: ATORVASTATIN 40 MG TAB PO SCH (21:10)
[2021-03-11] MEDS: LEVOTHYROXINE 100 MCG TAB PO SCH (21:10)
[2021-03-11] MEDS: SULFAMETHOX-TMP 800-160MG 1 EACH TAB PO SCH (21:11)
[2021-03-11] MEDS: INSULIN DETEMIR (LEVEMIR) 100 UNIT/ML SYR SQ SCH (21:11)
[2021-03-12 03:00] LABS: Glucose,Whole Blood 216 mg/dL (75-99)
[2021-03-12 07:26] LABS: Glucose,Whole Blood 179 mg/dL (75-99)
[2021-03-12] MEDS: PANTOPRAZOLE 40 MG TABLET PO SCH (08:18)
[2021-03-12] MEDS: CALCIUM ACETATE 667 MG TAB PO SCH ×3 (08:18→17:34)
[2021-03-12] MEDS: HYDROcodone/APAP 10-325MG 1 EACH TAB PO PRN ×3 (08:19→22:24)
[2021-03-12] MEDS: INSULIN ASPART (NovoLOG) 100 UNIT/ML VIAL SQ SCH ×4 (08:20→21:03)
[2021-03-12 09:52] LABS: HCT 27.4 % (39.6-50.0); HGB 8.4 g/dL (13.0-17.0); MCH 30.9 pg (27.0-32.0); MCHC 30.7 g/dL (32.0-37.0); MCV 100.7 fL (80.0-97.0); Mean Platelet Volume 9.5 fL (9.5-12.2); Platelet Count 174 X 10*3/uL (140-440); RBC 2.72 X 10*6/uL (4.40-5.60); RDW 17.8 % (11.5-14.5); WBC 13.35 X 10*3/uL (4.50-10.00)
[2021-03-12 11:35] VITALS: BMI 46.6
[2021-03-12 11:51] LABS: African American GFR (CKD) 9.1 (60.0-200.0); Albumin 3.6 g/dL (3.80-4.90); Albumin/Globulin Ratio 1.24 (1.60-3.17); Anion Gap 12.3 mmol/L (4.00-12.00); BUN/Creat Ratio 7.68 Ratio (12.00-20.00); Calcium 8.1 mg/dL (8.7-10.3); Carbon Dioxide 26.7 mmol/L (21.6-31.8); Globulin 2.9 g/dL (1.6-3.3); Non-African American GFR(CKD) 7.9 (60.0-200.0); Potassium 5.4 mmol/L (3.5-5.5); Total Bilirubin 0.2 mg/dL (0.2-1.2); Total Protein 6.5 g/dL (6.2-8.2)
[2021-03-12 11:54] LABS: Glucose,Whole Blood 229 mg/dL (75-99)
[2021-03-12] MEDS ORDERED: carvediloL 3.125 MG TAB PO SCH (12:00)
--- NOTE | 2021-03-12 12:48 | P.PN ---
Subjective Progress Note Date: 03/12/21 HISTORY OF PRESENT ILLNESS: 60-year-old morbidly obese male one of Dr. Oshea and Dr. Liz patient with past medical history of type 2 diabetes on insulin, end-stage renal disease on hemodialysis on via left upper arm fistula who was diagnosed back in October this year with ischemic heart disease ended up having 2 stents placement to the RCA in October 2020, pericardial effusion with tamponade status post pericardial window in November 2020, hypertension, hyperlipidemia, diabetes mellitus type 2, hypothyroidism, morbid obesity with BMI 45 status post lap band. Patient had recent hospitalization in January of this year for atypical chest pain and acute coronary syndrome was ruled out. He was treated for acute on chronic diastolic heart failure and slight pleural effusion. He should states he has been doing very well at home and has followed up with his PCP. Yesterday he developed shortness of breath and his legs felt weak. He does not normally use walker or cane. He states he fell twice today. Once [facility] parking lot and once at [employer]. He did have one previous fall about 3-4 weeks ago. He states he has decreased appetite at dinner time but eats well throughout the day. He does make some urine and has not noticed much change. He denies any loss of consciousness. He states his left knee feels a little sore. He may have hit his head slightly. He underwent dialysis yesterday as scheduled. Patient presented to [facility] emergency center for evaluation. He was found to be afebrile, heart rate 90, blood pressure 113/57, pulse ox 99% on room air. EKG was a sinus rhythm with no acute ST changes. WBC 14.1, hemoglobin 10.5 platelet count 234, sodium 133, potassium 5.3, chloride 90, CO2 30, BUN 37 and creatinine 5.83. Blood sugar 153. Magnesium 4.2. Calcium 9.1. Total bilirubin 0.4, AST 25, ALT 23, alkaline phosphatase 99. Albumin 4.1. Lactic acid 3.0 troponin negative. CAT scan of the brain showed no acute intracranial process. Chest x-ray reveals gross cardiomegaly. Blunting of the costophrenic angle suggestive tiny pleural effusions. Patient to be admitted to the [facility] floor and cardiology consult obtained. 03/12: Patient is seen today on the Med-surg floor. Patient complains of chest pain. EKG, troponin and reconsult cardiology ordered. Patient states that his breathing is about the same from yesterday. He lives at home with his but he states that he is not active at home. He thinks he may need a walker or wheelchair at home. Patient advised not to get a wheelchair as he will then become dependent. He has an appointment set up with [facility] to start on March 23. He states this is the earliest appointment that he could obtain. Patient to be evaluated by therapies here but today he was undergoing dialysis. He has been afebrile, heart rate 66, blood pressure 108/73, pulse ox 96% on room air. Patient utilized CPAP during the night. Repeat blood work reveals WBC 13.3, hemoglobin 8.4, platelet count 174. Sodium is 129, potassium 5.4, chloride 90, CO2 26.7. BUN 53, creatinine 6.9. Blood sugar 183. Blood glucose running between 179 and 216. Liver function tests are normal. Troponin drawn this morning is negative. Echocardiogram reveals EF of 55-60%, trace to mild mitral regurgitation, moderate concentric left hypertrophy. REVIEW OF SYSTEMS: Constitutional: No fever, no chills, no night sweats. No weight change. Reports weakness, reports fatigue no lethargy. No daytime sleepiness. Morbidly obese does not look in any respiratory distress EENT: No headache. No blurred vision or double vision, no loss of vision. No loss of Hearing, no ringing in the ears, no dizziness. No nasal drainage or congestion. No epistaxis. No sore throat. Lungs: Reports chronic shortness of breath with mild cough and wheezes. Cardiovascular: Denies chest pain, no PND no orthopnea no palpitation exertional shortness of breath.. Abdominal: No abdominal pain. No nausea, vomiting. No diarrhea. No constip ation. No bloody or tarry stools ports decreased appetite at dinner.e. Genitourinary: No dysuria, increased frequency, urgency. No urinary retention. End-stage renal disease on hemodialysis Musculoskeletal: No myalgias. Reports muscle weakness, reports gait dysfunction, no frequent falls. Positive lower back pain with slight arthritic pain and mild edema.. Integumentary: No wounds, no lesions. No rash or pruritus. No unusual bruising. No change in hair or nails. Neurologic: No aphasia. No facial droop. No change in mentation. No head injury. No headache. No paralysis. No paresthesia. Psychiatric: No depression. No anxiety. No mood swings. Endocrine: No abnormal blood sugars. No weight change. No excessive sweating or thirst. No cold intolerance. PHYSICAL EXAMINATION Gen: This is a morbidly obese 60-year-old male resting in bed with no acute respiratory distress. HEENT: Head is atraumatic, normocephalic. Pupils equal, round. Sclerae is anicteric. NECK: Supple. No JVD. No lymphadenopathy. No thyromegaly. LUNGS: Decreased breath sounds bilaterally. No wheezing, no accessory muscle usag. HEART: Regular rhythm and rate S1-S2 positive S3 no JVD. ABDOMEN: Soft. Positive Bowel sounds . No masses. No tenderness. EXTREMITIES: no edema with slight discoloration from the knee down decreased pulse and dorsalis pedis posterior tibial. NEUROLOGICAL: Patient is awake, alert and oriented x3. Cranial nerves 2 through 12 are grossly intact. ASSESSMENT AND PLAN 1. Generalized weakness to bilateral lower extremities with 2 falls today, decreased appetite and shortness of breath. Audiology consult appreciated. Consult with PT and OT. 2. Leukocytosis and lactic acidosis of unclear etiology. Repeat blood work tomorrow. 3. Left finger infection. Continue Bactrim 1 twice daily. [facility]. 4. Coronary artery disease with PCI to RCA and October 2020. Cardiology consult. Echocardiogram ordered. Continue Coreg at home dose, Plavix 75 mg daily, aspirin 81 mg daily, Lipitor 40 mg at bedtime, Demadex 40 mg daily. 5. History of pericardial effusion with tamponade, status post pericardial window in November 2020. 6. End-stage renal disease on hemodialysis . Nephrology consult, continue PhosLo 1334 mg 3 times daily before meals. 7. Hypertension. Continue Coreg at home dose. 7. Hyperlipidemia. Continue Lipitor. 8. Diabetes mellitus type 2. Continue Levemir 60 units at bedtime and NovoLog scale before meals and at bedtime 9. Morbid obesity with BMI of 45 status post lap band. 10. Hypothyroidism. Continue levothyroxine 100 g daily. Check TSH and free T4 11. Chronic gout. Continue allopurinol 300 mg at bedtime 12. GI prophylaxis. Protonix. 13. DVT prophylaxis. Heparin subcu. 14. Chest pain. Troponin repeated which is negative, EKG ordered and cardiology consult. DISCHARGE PLAN TBD, PT and OT. Patient has outpatient therapy starting on March 23. Impression and plan of care have been directed as dictated by the signing physician. Laine Jones nurse practitioner acting as scribe for signing physician. Objective - Vital Signs Vital signs: Vital Signs Temp 97.8 F 03/12/21 08:08 Pulse 66 03/12/21 08:08 Resp 17 03/12/21 08:08 BP 108/73 03/12/21 08:08 Pulse Ox 96 03/12/21 08:08 Intake & Output 03/11/21 03/12/21 03/12/21 18:59 06:59 18:59 Output Total 50 Balance -50 Weight 147.871 kg 151.8 kg Output: Urine 50 - Labs CBC & Chem 7: 03/12/21 05:49 03/12/21 05:49 Labs: Abnormal Lab Results - Last 24 Hours (Table) 03/11/21 03/11/21 03/11/21 Range/Units 10:28 10:28 10:28 WBC 14.1 H (3.8-10.6) k/uL RBC 3.34 L (4.30-5.90) m/uL Hgb 10.5 L (13.0-17.5) gm/dL Hct 32.1 L (39.0-53.0) % MCV (80.0-97.0) fL MCHC (32.0-37.0) g/dL RDW 18.1 H (11.5-15.5) % Neutrophils # 12.2 H (1.3-7.7) k/uL Lymphocytes # 0.9 L (1.0-4.8) k/uL Sodium 133 L (137-145) mmol/L Potassium 5.3 H (3.5-5.1) mmol/L Chloride 90 L (98-107) mmol/L BUN 37 H (9-20) mg/dL Creatinine 5.83 H (0.66-1.25) mg/dL Glucose 153 H (74-99) mg/dL POC Glucose (mg/dL) (75-99) mg/dL Plasma Lactic Acid Oscar 3.0 H* (0.7-2.0) mmol/L Magnesium 4.2 H (1.6-2.3) mg/dL 03/11/21 03/11/21 03/12/21 Range/Units 17:59 20:43 02:58 WBC (3.8-10.6) k/uL RBC (4.30-5.90) m/uL Hgb (13.0-17.5) gm/dL Hct (39.0-53.0) % MCV (80.0-97.0) fL MCHC (32.0-37.0) g/dL RDW (11.5-15.5) % Neutrophils # (1.3-7.7) k/uL Lymphocytes # (1.0-4.8) k/uL Sodium (137-145) mmol/L Potassium (3.5-5.1) mmol/L Chloride (98-107) mmol/L BUN (9-20) mg/dL Creatinine (0.66-1.25) mg/dL Glucose (74-99) mg/dL POC Glucose (mg/dL) 331 H 327 H 216 H (75-99) mg/dL Plasma Lactic Acid Oscar (0.7-2.0) mmol/L Magnesium (1.6-2.3) mg/dL 03/12/21 03/12/21 Range/Units 05:49 07:24 WBC 13.35 H (3.8-10.6) k/uL RBC 2.72 L (4.30-5.90) m/uL Hgb 8.4 L (13.0-17.5) gm/dL Hct 27.4 L (39.0-53.0) % MCV 100.7 H (80.0-97.0) fL MCHC 30.7 L (32.0-37.0) g/dL RDW 17.8 H (11.5-15.5) % Neutrophils # (1.3-7.7) k/uL Lymphocytes # (1.0-4.8) k/uL Sodium (137-145) mmol/L Potassium (3.5-5.1) mmol/L Chloride (98-107) mmol/L BUN (9-20) mg/dL Creatinine (0.66-1.25) mg/dL Glucose (74-99) mg/dL POC Glucose (mg/dL) 179 H (75-99) mg/dL Plasma Lactic Acid Oscar (0.7-2.0) mmol/L Magnesium (1.6-2.3) mg/dL
--- NOTE | 2021-03-12 13:01 | CONS ---
CONSULTATION REASON FOR CONSULT: End-stage renal disease. HISTORY OF PRESENT ILLNESS: Patient is a 60-year-old male with end-stage renal disease, on hemodialysis on a Tuesday, , Tuesday schedule. He was admitted to the hospital with complaints of feeling weak and short of breath. He denied any chest pain on initial admission. However, he is complaining of chest discomfort currently. Lactic acid was elevated at 3.0 down to 1.2 now. No history of diarrhea or abdominal pain or cough. Chest x-ray done yesterday shows tiny pleural effusions, otherwise no acute findings were noted. Patient's heart rate has been about 90 to 60 beats per minute. Echocardiogram done yesterday shows EF 55-60%. No pericardial effusion noted. Of note, patient has had previous pericardial effusion and pericardiocentesis on his previous admission in November of 2020. PAST MEDICAL HISTORY: End-stage renal disease, CKD mineral bone disorder, history of pericardial effusion, coronary artery disease, morbid obesity, CKD mineral bone disorder, type 2 diabetes. Obstructive sleep apnea, history of CVA/TIA, hypothyroidism. PAST SURGICAL HISTORY: Adenoidectomy, cholecystectomy, cardiac catheterization, coronary stent placement, pericardial window, tonsillectomy, colonoscopies, cataract surgery, left arm AV fistula, shoulder surgery. SOCIAL HISTORY: Patient is a former smoker. No history of drug abuse or alcohol abuse. MEDICATIONS: Medications prior to admission included Lipitor, Synthroid, Demadex, Zyloprim, Coreg, RenaVite, aspirin, Plavix, [place], insulin, Ativan, Coreg, Bactrim. ALLERGIES: None. PHYSICAL EXAMINATION: Patient is comfortable, awake, alert, oriented x3, not in any acute distress. Blood pressure was 102/65, heart rate 72 per minute, he is afebrile. Examination of the heart S1, S2. Examination of the lungs, bilateral breath sounds are heard. Decreased breath sounds at bases. Abdomen is soft, morbidly obese. Examination lower extremities shows chronic skin changes, edema 2+ bilaterally which is mostly chronic. ORIENTOR exam grossly intact. The patient's left hand is currently dressed. He has ulcers on his fingers. LAB: Show sodium 133, potassium 5.3, chloride 90, BUN 37, serum creatinine 5.83, hemoglobin 10.5 g/dL. Lactic acid 3.0. ASSESSMENT: 1. End-stage renal disease, on hemodialysis on a Tuesday, , Tuesday schedule. 2. Shortness of breath/weakness. No evidence of pericardial effusion. No significant congestive heart failure noted on chest x-ray. Patient did have large ultrafiltration the day before on Tuesday as outpatient about of 5.4 L. We will dialyze him today with goal UF about 1-2 L as tolerated. 3. Left hand ulcers on the fingers, being followed by [facility] status post antibiotics, currently maintained on Bactrim. 4. Coronary artery disease with history of a PTCA and stent to the RCA in October of 2020. 5. Type 2 diabetes. 6. Morbid obesity. PLAN: Hemodialysis today. Goal UF 1-2 L as tolerated. MMODL / IJN: [id number] /
[2021-03-12] MEDS: CLOPIDOGREL 75 MG TAB PO SCH (16:06)
[2021-03-12] MEDS: ASPIRIN 81 MG PO SCH (16:06)
[2021-03-12] MEDS: TORSEMIDE 20 MG TAB PO SCH (16:06)
[2021-03-12] MEDS: HEPARIN SODIUM,PORCINE/PF 5,000 UNIT/0.5 ML SYRINGE SQ SCH ×2 (16:06→21:06)
[2021-03-12] MEDS: SULFAMETHOX-TMP 800-160MG 1 EACH TAB PO SCH ×2 (16:06→21:04)
[2021-03-12] MEDS: FOLIC ACID-VIT B COMPLEX-VIT C 1 CAP PO SCH (16:06)
[2021-03-12 17:01] LABS: Glucose,Whole Blood 237 mg/dL (75-99)
[2021-03-12 20:18] LABS: Glucose,Whole Blood 271 mg/dL (75-99)
[2021-03-12] MEDS: INSULIN DETEMIR (LEVEMIR) 100 UNIT/ML SYR SQ SCH (21:03)
[2021-03-12] MEDS: LEVOTHYROXINE 100 MCG TAB PO SCH (21:04)
[2021-03-12] MEDS: ATORVASTATIN 40 MG TAB PO SCH (21:06)
[2021-03-12] MEDS: carvediloL 6.25 MG TAB PO SCH (21:06)
[2021-03-12] MEDS: allopurinoL 300 MG TAB PO SCH (21:06)
[2021-03-13] MEDS: HYDROcodone/APAP 10-325MG 1 EACH TAB PO PRN (03:55)
[2021-03-13 07:12] LABS: Glucose,Whole Blood 183 mg/dL (75-99)
[2021-03-13 07:32] VITALS: BP 102/68; PULSE 64; RESP 18; TEMP 98.2
[2021-03-13] MEDS ORDERED: carvediloL 3.125 MG TAB PO SCH (09:00)
[2021-03-13] MEDS: INSULIN ASPART (NovoLOG) 100 UNIT/ML VIAL SQ SCH (09:06)
[2021-03-13] MEDS: HEPARIN SODIUM,PORCINE/PF 5,000 UNIT/0.5 ML SYRINGE SQ SCH (09:11)
--- NOTE | 2021-03-13 10:06 | P.DS ---
Providers Date of admission: 03/11/21 12:07 Expected date of discharge: 03/13/21 Attending physician: Meng Jimenez Consults: 03/11/21 12:07 Consult Physician Routine Consulting Provider: Shira Hess Consult Reason/Comments: ESRD Do you want consulting provider notified?: Yes 03/12/21 12:31 Consult Physician Routine Consulting Provider: Joel Swain Consult Reason/Comments: chst pain Do you want consulting provider notified?: Yes Primary care physician: Hayes Oshea Hospital Course: HISTORY OF PRESENT ILLNESS: 60-year-old morbidly obese male one of Dr. Oshea and Dr. Liz patient with past medical history of type 2 diabetes on insulin, end-stage renal disease on hemodialysis on via left upper arm fistula who was diagnosed back in October this year with ischemic heart disease ended up having 2 stents placement to the RCA in October 2020, pericardial effusion with tamponade status post pericardial window in November 2020, hypertension, hyperlipidemia, diabetes mellitus type 2, hypothyroidism, morbid obesity with BMI 45 status post lap band. Patient had recent hospitalization in January of this year for atypical chest pain and acute coronary syndrome was ruled out. He was treated for acute on chronic diastolic heart failure and slight pleural effusion. He should states he has been doing very well at home and has followed up with his PCP. Yesterday he developed shortness of breath and his legs felt weak. He does not normally use walker or cane. He states he fell twice today. Once the [facility] parking lot and once [facility]. He did have one previous fall about 3-4 weeks ago. He states he has decreased appetite at dinner time but eats well throughout the day. He does make some urine and has not noticed much change. He denies any loss of consciousness. He states his left knee feels a little sore. He may have hit his head slightly. He underwent dialysis yesterday as scheduled. Patient presented to [facility] emergency center for evaluation. He was found to be afebrile, heart rate 90, blood pressure 113/57, pulse ox 99% on room air. EKG was a sinus rhythm with no acute ST changes. WBC 14.1, hemoglobin 10.5 platelet count 234, sodium 133, potassium 5.3, chloride 90, CO2 30, BUN 37 and creatinine 5.83. Blood sugar 153. Magnesium 4.2. Calcium 9.1. Total bilirubin 0.4, AST 25, ALT 23, alkaline phosphatase 99. Albumin 4.1. Lactic acid 3.0 troponin negative. CAT scan of the brain showed no acute intracranial process. Chest x-ray reveals gross cardiomegaly. Blunting of the costophrenic angle suggestive tiny pleural effusions. Patient to be admitted to the [facility] floor and cardiology consult obtained. 03/12: Patient is seen today on the [facility] floor. Patient complains of chest pain. EKG, troponin and reconsult cardiology ordered. Patient states that his breathing is about the same from yesterday. He lives at home with his but he states that he is not active at home. He thinks he may need a walker or wheelchair at home. Patient advised not to get a wheelchair as he will then become dependent. He has an appointment set up with Katherine CHAMPION to start on March 23. He states this is the earliest appointment that he could obtain. Patient to be evaluated by therapies here but today he was undergoing dialysis. He has been afebrile, heart rate 66, blood pressure 108/73, pulse ox 96% on room air. Patient utilized CPAP during the night. Repeat blood work reveals WBC 13.3, hemoglobin 8.4, platelet count 174. Sodium is 129, potassium 5.4, chloride 90, CO2 26.7. BUN 53, creatinine 6.9. Blood sugar 183. Blood glucose running between 179 and 216. Liver function tests are normal. Troponin drawn this morning is negative. Echocardiogram reveals EF of 55-60%, trace to mild mitral regurgitation, moderate concentric left hypertrophy. 03/13: Patient has been seen by therapies and cleared for discharge without rehab. Patient has been seen by nephrology and they have made arrangements for him to receive outpatient hemodialysis today in order for him to go away for the weekend and resume his Tuesday schedule next week. He has been afebrile, heart rate 64, blood pressure 102/68. Sugars have been running between 183 and 271. Patient will be discharged home today in stable condition. ASSESSMENT AND PLAN 1. Generalized weakness to bilateral lower extremities with 2 falls today, decreased appetite and shortness of breath. 2. Leukocytosis and lactic acidosis of unclear etiology. 3. Left finger infection. 4. Coronary artery disease with PCI to RCA and October 2020. 5. History of pericardial effusion with tamponade, status post pericardial window in November 2020. 6. End-stage renal disease on hemodialysis . 7. Hypertension. 7. Hyperlipidemia. 8. Diabetes mellitus type 2. 9. Morbid obesity with BMI of 45 status post lap band. 10. Hypothyroidism. 11. Chronic gout. 12. Chest pain. DISCHARGE PLAN Home Impression and plan of care have been directed as dictated by the signing markus hoover. Laine Jones nurse practitioner acting as scribe for signing physician. Patient Condition at Discharge: Stable Plan - Discharge Summary Discharge Rx Participant: Yes New Discharge Prescriptions: Continue Atorvastatin [Lipitor] 40 mg PO HS Levothyroxine Sodium 100 mcg PO HS Torsemide [Demadex] 40 mg PO DAILY Bryanna-Olimpia 1 tab PO DAILY Carvedilol [Coreg] 6.25 mg PO HS Allopurinol [Zyloprim] 300 mg PO HS Aspirin 81 mg PO DAILY #90 chew Clopidogrel Bisulfate [Plavix] 75 mg PO DAILY Insulin Regular, Human [Novolin R Flexpen] See Protocol SQ ACHS HYDROcodone/APAP 10-325MG [Kiln 10-325] 1 tab PO QID PRN PRN Reason: Pain carvediloL [Coreg] 3.125 mg PO TUTHSA@1200 Sulfamethox-Tmp 800-160Mg [Bactrim DS 800-160 mg] 1 tab PO BID Insulin Detemir [Levemir Flextouch] 60 units SQ HS carvediloL [Coreg] 3.125 mg PO SUMOWEFR@0900 Calcium Acetate [PhosLo] 1,334 mg PO AC-TID Nitroglycerin Sl Tabs [Nitrostat] 0.4 mg SL Q5M PRN PRN Reason: Chest Pain LORazepam [Ativan] 0.5 mg PO BID PRN PRN Reason: Anxiety Discharge Medication List Atorvastatin [Lipitor] 40 mg PO HS 08/07/14 [History] Levothyroxine Sodium 100 mcg PO HS 07/06/17 [History] Torsemide [Demadex] 40 mg PO DAILY 09/10/19 [History] Allopurinol [Zyloprim] 300 mg PO HS 10/20/20 [History] Carvedilol [Coreg] 6.25 mg PO HS 10/20/20 [History] Bryanna-Olimpia 1 tab PO DAILY 10/20/20 [History] Aspirin 81 mg PO DAILY #90 chew 10/22/20 [Rx] Clopidogrel Bisulfate [Plavix] 75 mg PO DAILY 11/24/20 [History] HYDROcodone/APAP 10-325MG [Kiln 10-325] 1 tab PO QID PRN 11/24/20 [History] Insulin Regular, Human [Novolin R Flexpen] See Protocol SQ ACHS 11/24/20 [History] Insulin Detemir [Levemir Flextouch] 60 units SQ HS 02/05/21 [History] Calcium Acetate [PhosLo] 1,334 mg PO AC-TID 03/11/21 [History] LORazepam [Ativan] 0.5 mg PO BID PRN 03/11/21 [History] Nitroglycerin Sl Tabs [Nitrostat] 0.4 mg SL Q5M PRN 03/11/21 [History] Sulfamethox-Tmp 800-160Mg [Bactrim DS 800-160 mg] 1 tab PO BID 03/11/21 [History] carvediloL [Coreg] 3.125 mg PO SUMOWEFR@0900 03/11/21 [History] carvediloL [Coreg] 3.125 mg PO TUTHSA@1200 03/11/21 [History] Follow up Appointment(s)/Referral(s): Hayes Oshea MD [Primary Care Provider] - 1 Week (office closed please call to schedule appointment) Malu Liz MD [STAFF PHYSICIAN] - 03/31/21 2:00 pm Patient Instructions/Handouts: Heart Failure (DC), End Stage Kidney Disease (DC) Discharge Disposition: HOME SELF-CARE
[2021-03-13] MEDS: PANTOPRAZOLE 40 MG TABLET PO SCH (10:40)
[2021-03-13] MEDS: CLOPIDOGREL 75 MG TAB PO SCH (10:40)
[2021-03-13] MEDS: CALCIUM ACETATE 667 MG TAB PO SCH (10:40)
[2021-03-13] MEDS: ASPIRIN 81 MG PO SCH (10:40)
[2021-03-13] MEDS: TORSEMIDE 20 MG TAB PO SCH (10:40)
[2021-03-13] MEDS: SULFAMETHOX-TMP 800-160MG 1 EACH TAB PO SCH (10:40)
[2021-03-13] MEDS: FOLIC ACID-VIT B COMPLEX-VIT C 1 CAP PO SCH (10:40)
--- NOTE | 2021-03-13 11:57 | PN ---
PROGRESS NOTE Patient is seen for followup for end-stage renal disease. He is currently comfortable. Denies any chest pains or shortness of breath. He tolerated dialysis very well yesterday with UF of about 3 L. PHYSICAL EXAMINATION: On examination today, blood pressure 102/68, heart rate 64 per minute, he is afebrile. Examination of the heart S1, S2. Examination of the lungs, bilateral breath sounds are heard. Abdomen is soft, nontender, obese. Examination lower extremity shows 1+ edema bilaterally. Chronic skin changes noted. 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 LABS: On March 12 show sodium 129, potassium 5.4. ASSESSMENT: 1. End-stage renal disease, on hemodialysis on a Tuesday, , Tuesday schedule. The patient states that he was planning to go out of town and is scheduled for treatment today instead of tomorrow, however, at this time he will not be able to get an inpatient treatment until later on today and therefore patient can be discharged and have his hemodialysis treatment today as outpatient. He did get a treatment yesterday and we had about 3 L of ultrafiltration. He tolerated it well. 2. Chest pain, most likely musculoskeletal, currently improved. 3. Anemia of chronic disease. 4. History of pericardial effusion status post pericardial window in November of this year. 5. Chronic kidney disease mineral bone disorder. PLAN: Patient can be discharged and have his hemodialysis treatment as outpatient this afternoon. He is advised regarding fluid restriction during the holiday weekend. MMJIMENAL / IJN: [id number] /
== END 2021-03-13 10:46 | disposition home or self-care (01) | DRG 291 ==
LOC: EC 10:13 → 3SCARD 12:07 → 4SSUR 13:33
PROVIDERS: ADMIT Internal Medicine Geriatric Medicine; ATTEND Internal Medicine Geriatric Medicine
PROC: 5A1D70Z Performance of Urinary Filtration, Intermittent, Less than 6 Hours Per Day (ICD-10-PCS; principal; 2021-03-12)
DX: I13.2 Hypertensive heart and chronic kidney disease with heart failure and with stage 5 chronic kidney disease, or end stage renal disease (principal); N18.6 End stage renal disease; E87.2 Acidosis; I50.32 Chronic diastolic (congestive) heart failure; Z68.42 Body mass index [BMI] 45.0-49.9, adult; E11.319 Type 2 diabetes mellitus with unspecified diabetic retinopathy without macular edema; E11.22 Type 2 diabetes mellitus with diabetic chronic kidney disease; E03.9 Hypothyroidism, unspecified; I25.10 Atherosclerotic heart disease of native coronary artery without angina pectoris; E11.41 Type 2 diabetes mellitus with diabetic mononeuropathy; E66.01 Morbid (severe) obesity due to excess calories; D72.829 Elevated white blood cell count, unspecified; D63.8 Anemia in other chronic diseases classified elsewhere; R07.89 Other chest pain; E78.5 Hyperlipidemia, unspecified; L08.9 Local infection of the skin and subcutaneous tissue, unspecified; G47.33 Obstructive sleep apnea (adult) (pediatric); M1A.9XX0 Chronic gout, unspecified, without tophus (tophi); F41.9 Anxiety disorder, unspecified; N28.9 Disorder of kidney and ureter, unspecified; Z79.02 Long term (current) use of antithrombotics/antiplatelets; Z82.3 Family history of stroke; Z79.82 Long term (current) use of aspirin; Z79.899 Other long term (current) drug therapy; Z82.49 Family history of ischemic heart disease and other diseases of the circulatory system; Z79.4 Long term (current) use of insulin; I25.2 Old myocardial infarction; Z86.73 Personal history of transient ischemic attack (TIA), and cerebral infarction without residual deficits; Z87.891 Personal history of nicotine dependence; Z82.0 Family history of epilepsy and other diseases of the nervous system; Z91.81 History of falling; Z90.49 Acquired absence of other specified parts of digestive tract; Z95.5 Presence of coronary angioplasty implant and graft; Z99.2 Dependence on renal dialysis
CPT/HCPCS: 36415; 70450; 71046; 80053; 83605; 83735; 84484; 85025; 85027; 85610; 85730; 87635; 90935; 93005; 93306; 99285

== ENCOUNTER 2021-08-11 11:44 | Day surgery (SDC) | payer MEDICARE, BC ==
[2021-08-10 14:55] VITALS: BMI 45.3
[~2021-08-11 11:44] MED LIST changes: +HYDROmorphone 0.5 MG/0.5 ML SYRINGE IVP PRN; +LACTATED RINGERS 1,000 ML IV SCH; +ONDANSETRON 4 MG/2 ML VIAL IVP ONE; -ceFAZolin 3 GM in SODIUM CHLORIDE 0.9% 100 ML IVPB ONE
[2021-08-11] MEDS ORDERED: SODIUM CHLORIDE 0.9% 1,000 ML IV ONE (12:24)
[2021-08-11] MEDS ORDERED: LIDOCAINE 1% (10MG/ML) FOR IV START INTRADERMA ONE (12:24)
[2021-08-11 12:28] VITALS: TEMP 97.5
[2021-08-11] MEDS ORDERED: ONDANSETRON 4 MG/2 ML VIAL IVP ONE (12:32)
[2021-08-11] MEDS ORDERED: INSULIN ASPART (NovoLOG) 100 UNIT/ML VIAL SQ ONE (12:32)
[2021-08-11 12:39] LABS: Glucose,Whole Blood 251 mg/dL (75-99)
[2021-08-11] MEDS ORDERED: MIDAZOLAM 2 MG/2 ML VIAL ONE (13:05)
[2021-08-11] MEDS ORDERED: fentaNYL (PF) 50 MCG/ML 2 ML AMP ONE (13:05)
[2021-08-11] MEDS ORDERED: PROPOFOL 10 MG/ML 20 ML VIAL IV ONE (13:05)
[2021-08-11] MEDS ORDERED: KETAMINE 10 MG/ML 20 ML VIAL ONE (13:05)
[2021-08-11] MEDS ORDERED: LIDOCAINE 1%-EPI 1:100,000 20 ML VIAL SQ ONE (13:23)
[2021-08-11] MEDS ORDERED: BUPIVACAINE (PF) 0.5% 30 ML VIAL SQ ONE (13:23)
--- NOTE | 2021-08-11 13:47 | P.OP ---
Date of Procedure: 08/11/21 Preoperative Diagnosis: Left index finger osteomyelitis Postoperative Diagnosis: Same Procedure(s) Performed: Left index finger irrigation and debridement and amputation Anesthesia: [facility] Surgeon: Alicia Christina Estimated Blood Loss (ml): 0 Pathology: none sent Condition: stable Disposition: PACU Indications for Procedure: Patient has a history of diabetes and end-stage renal disease on hemodialysis and several bouts of osteomyelitis of his fingertips. In the last 3 months he has developed an infection of his left index finger which has gone on to osteomyelitis with the draining sinus. Description of Procedure: The patient, operative extremity, and procedure were identified in the preoperative holding area. He was then brought back to the operating suite where sedation was provided by the anesthesia team. His left upper trapezius and prepped and draped in normal sterile fashion. After formal timeout was performed local block was performed with 1% lidocaine with epi and half percent Marcaine. Tourniquet was then applied to the finger using a finger glove. The sinus tract was excised in its entirety in elliptical fashion dissection was carried down to the flexor tendon sheath. The FDP was transected under tension and allowed to retract. The middle phalanx was found to be very fragile. This was resected down to the level of the FDS attachment. Here the bone did seem to have more substance. All devitalized tissue and signs and infected tissue was removed sharply with a combination of a knife and a [place]. dissection was carried down to the level of the bone. A culture stick as well as bone fragments were sent for culture. Wound was then copiously irrigated with normal saline. Neurovascular structures were carefully transected. Tourniquet was then removed and the skin was closed with 4-0 nylon. Wound was dressed with Ad aptic 4 x 4 and Kerlix and [place] wrap. Patient was aroused by the anesthesia team and brought back to PACU in stable condition. He will be discharged on oral antibiotics broad coverage including MRSA. We will see him back in office in 2 weeks and catered the antibiotics depending on the culture results.
[2021-08-11 13:53] LABS: Glucose,Whole Blood 237 mg/dL (75-99)
[2021-08-11 14:13] VITALS: RESP 14
[2021-08-11 14:14] VITALS: BP 144/75; PULSE 85
== END 2021-08-11 15:10 | disposition home or self-care (01) ==
LOC: OR 11:44
PROVIDERS: ATTEND Orthopaedic Surgery Hand Surgery
DX: M86.9 Osteomyelitis, unspecified (principal)
CPT/HCPCS: 84132; 87070; 87205; 87075; 11043; 26951; J0690; J2405

== ENCOUNTER 2021-12-08 10:52 | Inpatient (IN) | payer MEDICARE, BC ==
[2021-12-08] MEDS ORDERED: ASPIRIN 81 MG PO STA (11:12)
--- NOTE | 2021-12-08 12:20 | ED ---
General Adult HPI - General Chief complaint: Chest Pain Stated complaint: Chest Pain Time Seen by Provider: 12/08/21 11:03 Source: patient, RN notes reviewed, old records reviewed Mode of arrival: EMS Limitations: no limitations - History of Present Illness Initial comments: She is a 61-year-old male with past medical history remarkable for ESRD on hemo dialysis, heart failure, diabetes, hypertension, prior MIs his vascular accesses via left upper extremity V fistula presents emergency Department from dialysis complaining of substernal chest pain. Describes a sharp sensation located over the inferior left aspect of his sternum. It resolved on the way to the hospital after he received one nitro tablet. He states the pain started while receiving his normal dialysis run. Denied any other associated symptoms with the pain. Denies any current chest pain, shortness breath, abdominal pain, nausea, vomiting. Received an aspirin by EMS as well. His no other acute complaint at this time. Presents over concern for this chest pain that he expressed earlier. He currently is asymptomatic resting comfortably. Presents with the dialysis needles still present in his AV fistula, and they need to be removed.Patient's also complaining of some sores over his right hand that he did have antibiotics for but has not received any for multiple weeks. Was following up with orthopedics for it. States they appear to be more erythematous at this time. - Related Data Home Medications Medication Instructions Recorded Confirmed Atorvastatin [Lipitor] 40 mg PO HS 08/07/14 12/08/21 Levothyroxine Sodium 100 mcg PO HS 07/06/17 12/08/21 Torsemide [Demadex] 40 mg PO DAILY 09/10/19 12/08/21 Allopurinol [Zyloprim] 300 mg PO HS 10/20/20 12/08/21 Bryanna-Olimpia 1 tab PO DAILY 10/20/20 12/08/21 HYDROcodone/APAP 10-325MG [[place] 1 tab PO QID PRN 11/24/20 12/08/21 10-325] Insulin Regular, Human [Novolin R 30 unit SQ ACHS PRN 11/24/20 12/08/21 Flexpen] Insulin Detemir [Levemir Flextouch 60 units SQ HS 02/05/21 12/08/21 Pen] Calcium Acetate [PhosLo] 667 mg PO DIRECTED 03/11/21 12/08/21 LORazepam [Ativan] 0.5 mg PO BID PRN 03/11/21 12/08/21 Nitroglycerin Sl Tabs [Nitrostat] 0.4 mg SL Q5M PRN 03/11/21 12/08/21 Acetaminophen [Tylenol] 1,000 mg PO BID 09/06/21 12/08/21 Calcium Carb-Mag Carb-Folic 1 tab PO DIRECTED 09/06/21 12/08/21 [Magnebind 400] Lactulose 30 gm PO DAILY 09/06/21 12/08/21 carvediloL [Coreg] 3.125 mg PO QAM 12/08/21 12/08/21 carvediloL [Coreg] 6.25 mg PO HS 12/08/21 12/08/21 Allergies Allergy/AdvReac Type Severity Reaction Status Date / Time No Known Allergies Allergy Verified 12/08/21 13:13 Review of Systems ROS Statement: Those systems with pertinent positive or pertinent negative responses have been documented in the HPI. Review of Systems: CONST: Denies fever EYES: Denies blurry vision ENT: Denies nasal congestion C/V: Denies current Chest pain RESP: Denies shortness of breath GI: Denies abdominal pain : Denies dysuria SKIN: Denies rash. MSK: Denies joint pain. NEURO: Denies headache ROS Other: All systems not noted in ROS Statement are negative. Past Medical History Past Medical History: Coronary Artery Disease (CAD), Cancer, Heart Failure, CVA/TIA, Diabetes Mellitus, Eye Disorder, Hypertension, Myocardial Infarction ([place]), Renal Disease, Sleep Apnea/CPAP/BIPAP, Thyroid Disorder Additional Past Medical History / Comment(s): unhealing sore left index finger, neuropathy bilateral lower extremity/feet, bilateral eye diabetic retinopathy/p oor vision/multiple injections, ESRD with hemodialysis T/TH/SAT from 6:15 to 11:00, anemia, "mini strokes" x2, AVANI with CPap use, occasional low back pain/disc disease, gout, hypothyroid Last Myocardial Infarction Date:: 10/20/20 History of Any Multi-Drug Resistant Organisms: None Reported Past Surgical History: Adenoidectomy, Bariatric Surgery, Cholecystectomy, Heart Catheterization, Heart Catheterization With Stent, Orthopedic Surgery, Tonsillectomy Additional Past Surgical History / Comment(s): 10/22/20 PCI with stents x2, lap banding, FX of right ankle repair pins / plate, fistual lt arm jul 2018, lt shoulder sx (d/t separation), colonoscopies, bilateral cataract removals/lens implants. LIF surgery 08/11/21 Past Anesthesia/Blood Transfusion Reactions: Motion Sickness Additional Past Anesthesia/Blood Transfusion Reaction / Comment(s): CL AUSTERPHOBIA Date of Last Stent Placement:: 10/22/20 Past Psychological History: Anxiety Smoking Status: Former smoker Past Alcohol Use History: None Reported Past Drug Use History: None Reported - Past Family History Mother History Unknown: Yes Family Medical History: Coronary Artery Disease (CAD), Myocardial Infarction (PR) Additional Family Medical History / Comment(s): Mother at age 58 from multiple sclerosis Father Family Medical History: CVA/TIA, Myocardial Infarction (PR) Additional Family Medical History / Comment(s): Father had history of PR and CVA followed by a second PR and CVA and at age 65. Brother(s) Additional Family Medical History / Comment(s): . General Exam - General Exam Comments Initial Comments: General: Appears in no acute distress. HEAD: Normal with no signs of head trauma. EYES: PERRLA, EOMI, conjunctiva normal, no discharge. ENT: Hearing grossly intact, normal oropharynx. RESPIRATORY: Clear breath sounds bilaterally. No wheezes, rales, or rhonchi. C/V: Regular rate and rhythm. S1 and S2 auscultated, no edema, peripheral pulses 2+ and intact throughout. Left upper extremity AV fistula has a palpable thrill and audible bruit. ABD: Abd is soft, nontender, nondistended EXT: Normal range of motion, no obvious deformity. Prior amputations of the left fingers. SKIN: Patient does have shetty as well as abrasions located over the fingers of the right hand that may appear to be cellulitic in nature. No induration or pruritus appreciated. There is erythema around the sores. Does have a history of amputation secondary to diabetic disease in the fingertips. Good capillary refill of the right hand. NEURO: Alert and oriented 4. Limitations: no limitations Course Vital Signs 12/08/21 10:54 Temperature 99.4 F Pulse Rate 86 Respiratory 18 Rate Blood Pressure 142/95 O2 Sat by Pulse 98 Oximetry Medical Decision Making - Medical Decision Making Based on the patient's presentation and physical exam, I'm concerned for possible cardiopulmonary etiology for his current symptoms. He is asymptomatic at this time but he had chest pain that resolved with nitroglycerin. 4 we will obtain a troponin, EKG, chest x-ray in addition cardiac labs. Lactate and blood cultures were be obtained as well as an x-ray of the right hand to rule out infectious etiology. He likely has at least a cellulitis and will be started on vancomycin. Patient was in agreement this plan. He already received aspirin. He already received nitro. EKG shows no signs of acute ischemia. Chest x-ray shows no acute cardio primary process. An x-ray reveals no signs of ST or mellitus of bony involvement. Chest x-ray does show a small posterior pleural effusion. Laboratory studies are remarkable for a normocytic anemia with a hemoglobin of 11.4. Patient is an elevated BUN/creatinine setting of ESRD. Troponin is indeterminate at 0.013. Remainder of the labs are unremarkable including a normal lactic acid. Cultures are sent. After the patient results is negative workup. I would like to admit him to the hospital due to his cardiac history. Heart score is moderate at 4 points. He was in agreement this plan. He'll continue vancomycin empirically for cellulitis of the right hand. I spoke with the admitting team under Dr. Jimenez who accepted the patient. He requested Dr. Madera be consulted for the cell ulitis. Patient was therefore admitted to an observation telemetry bed. - Lab Data Result diagrams: 12/08/21 11:35 12/08/21 11:35 Lab Results 12/08/21 12/08/21 12/08/21 Range/Units 11:35 11:35 11:35 WBC 9.9 (3.8-10.6) k/uL RBC 3.71 L (4.30-5.90) m/uL Hgb 11.4 L (13.0-17.5) gm/dL Hct 35.2 L (39.0-53.0) % MCV 94.7 (80.0-100.0) fL MCH 30.8 (25.0-35.0) pg MCHC 32.5 (31.0-37.0) g/dL RDW 15.7 H (11.5-15.5) % Plt Count 150 (150-450) k/uL MPV 7.7 Neutrophils % 80 % Lymphocytes % 10 % Monocytes % 5 % Eosinophils % 3 % Basophils % 0 % Neutrophils # 7.9 H (1.3-7.7) k/uL Lymphocytes # 1.0 (1.0-4.8) k/uL Monocytes # 0.5 (0-1.0) k/uL Eosinophils # 0.2 (0-0.7) k/uL Basophils # 0.0 (0-0.2) k/uL PT 9.9 (9.0-12.0) sec INR 0.9 (<1.2) APTT 26.9 (22.0-30.0) sec Sodium 131 L (137-145) mmol/L Potassium 3.8 (3.5-5.1) mmol/L Chloride 92 L (98-107) mmol/L Carbon Dioxide 27 (22-30) mmol/L Anion Gap 12 mmol/L BUN 27 H (9-20) mg/dL Creatinine 4.09 H (0.66-1.25) mg/dL Est GFR (CKD-EPI)AfAm 17 (>60 ml/min/1.73 sqM) Est GFR (CKD-EPI)NonAf 15 (>60 ml/min/1.73 sqM) Glucose 176 H (74-99) mg/dL Plasma Lactic Acid Oscar (0.7-2.0) mmol/L Calcium 9.0 (8.4-10.2) mg/dL Magnesium 2.0 (1.6-2.3) mg/dL Total Bilirubin 0.5 (0.2-1.3) mg/dL AST 17 (17-59) U/L ALT 17 (4-49) U/L Alkaline Phosphatase 125 (38-126) U/L Troponin I (0.000-0.034) ng/mL Total Protein 7.2 (6.3-8.2) g/dL Albumin 3.8 (3.5-5.0) g/dL 12/08/21 12/08/21 Range/Units 11:35 11:35 WBC (3.8-10.6) k/uL RBC (4.30-5.90) m/uL Hgb (13.0-17.5) gm/dL Hct (39.0-53.0) % MCV (80.0-100.0) fL MCH (25.0-35.0) pg MCHC (31.0-37.0) g/dL RDW (11.5-15.5) % Plt Count (150-450) k/uL MPV Neutrophils % % Lymphocytes % % Monocytes % % Eosinophils % % Basophils % % Neutrophils # (1.3-7.7) k/uL Lymphocytes # (1.0-4.8) k/uL Monocytes # (0-1.0) k/uL Eosinophils # (0-0.7) k/uL Basophils # (0-0.2) k/uL PT (9.0-12.0) sec INR (<1.2) APTT (22.0-30.0) sec Sodium (137-145) mmol/L Potassium (3.5-5.1) mmol/L Chloride (98-107) mmol/L Carbon Dioxide (22-30) mmol/L Anion Gap mmol/L BUN (9-20) mg/dL Creatinine (0.66-1.25) mg/dL Est GFR (CKD-EPI)AfAm (>60 ml/min/1.73 sqM) Est GFR (CKD-EPI)NonAf (>60 ml/min/1.73 sqM) Glucose (74-99) mg/dL Plasma Lactic Acid Oscar 1.2 (0.7-2.0) mmol/L Calcium (8.4-10.2) mg/dL Magnesium (1.6-2.3) mg/dL Total Bilirubin (0.2-1.3) mg/dL AST (17-59) U/L ALT (4-49) U/L Alkaline Phosphatase (38-126) U/L Troponin I 0.013 (0.000-0.034) ng/mL Total Protein (6.3-8.2) g/dL Albumin (3.5-5.0) g/dL - EKG Data -: EKG Interpreted by Me EKG Comments: 12-lead Electrocardiogram Interpretation Note EKG was reviewed and interpreted by myself. 12-lead ECG performed at 1118 is interpreted by me as revealing normal sinus rhythm at a rate of 77 beats per minute. [place] is normal. VA Intervals 132 ms, QRS duration is 95 ms, QTc is 407 ms.. There were no ST or T wave abnormalities to suggest myocardial ischemia or injury. R wave progression across the precordium was satisfactory. By my interpretation this EKG is non-diagnostic for acute ischemia. There is a PVC present. Disposition Clinical Impression: Chest pain of unknown etiology, Stable angina, ESRD on hemodialysis, Cellulitis Disposition: ADMITTED IP TO THIS HOSP Condition: Stable
[2021-12-08 12:24] LABS: Basophils % (A) 0 %; Eosinophils # (A) 0.2 k/uL (0-0.7); Eosinophils % (A) 3 %; HCT 35.2 % (39.0-53.0); HGB 11.4 gm/dL (13.0-17.5); Lymphocytes % (A) 10 %; MCH 30.8 pg (25.0-35.0); MCHC 32.5 g/dL (31.0-37.0); MCV 94.7 fL (80.0-100.0); Mean Platelet Volume 7.7; Monocytes # (A) 0.5 k/uL (0-1.0); Monocytes % (A) 5 %; Neutrophils # (A) 7.9 k/uL (1.3-7.7); Neutrophils % (A) 80 %; Platelet Count 150 k/uL (150-450); RBC 3.71 m/uL (4.30-5.90); RDW 15.7 % (11.5-15.5); WBC 9.9 k/uL (3.8-10.6)
--- NOTE | 2021-12-08 12:34 | XR ---
EXAMINATION TYPE: XR hand complete RT DATE OF EXAM: 12/08/2021 COMPARISON: None HISTORY: Evaluate for right hand osteomyelitis TECHNIQUE: 3 view right hand FINDINGS: A catheter is present over the index metacarpal. Vascular calcification within the hands no calvin. No acute fractures or dislocations are evident. Mild diffuse joint space narrowing is present. There may be some periarticular erosion of the distal interphalangeal joint spaces of the index and middle fingers. Joint space narrowing of the distal thumb joint space may be present. The distal phalanx of the fifth digit appears diminutive. Correlate for prior trauma including therma l injury such as frostbite. The distal phalanx may have some anterior subluxation of the middle later al projection. Old fifth metacarpal fracture is evident. Mild diffuse soft tissue swelling appears to be present gre ater in the proximal portions of the phalanges. IMPRESSION: 1. No suspicious cortical erosion to suggest osteomyelitis. 2. Old posttraumatic changes. Present discussed above. 3. Diffuse soft tissue swelling
--- NOTE | 2021-12-08 12:36 | XR ---
EXAMINATION TYPE: XR chest 2V DATE OF EXAM: 12/08/2021 COMPARISON: 03/11/2021 INDICATION: Chest pain TECHNIQUE: Single frontal view of the chest is obtained. FINDINGS: The heart size is normal. The pulmonary vasculature is normal. Small posterior pleural effusion is present. No suspicious focal consolidation. IMPRESSION: 1. Small posterior pleural effusion
[2021-12-08 12:37] LABS: Albumin 3.8 g/dL (3.5-5.0); Potassium 3.8 mmol/L (3.5-5.1); Total Bilirubin 0.5 mg/dL (0.2-1.3); Total Protein 7.2 g/dL (6.3-8.2)
[2021-12-08 12:47] LABS: INR 0.9 (<1.2); Partial Thromboplastin Time 26.9 sec (22.0-30.0); Prothrombin Time 9.9 sec (9.0-12.0)
[2021-12-08] MEDS ORDERED: VANCOMYCIN IV PER PHARMACY 1 EACH MISC MISCELLANE PRN (13:15)
[2021-12-08] MEDS ORDERED: NALOXONE 0.4 MG/ML 1 ML VIAL IV PRN (13:15)
[2021-12-08] MEDS ORDERED: LORazepam 0.5 MG TAB PO PRN (13:57)
[2021-12-08] MEDS ORDERED: VANCOMYCIN 2,000 MG in SODIUM CHLORIDE 0.9% 500 ML 500 ML IVPB ONE (14:00)
[2021-12-08] MEDS: HYDROcodone/APAP 10-325MG 1 EACH TAB PO PRN ×2 (14:55→20:58)
[2021-12-08] MEDS: IBUPROFEN 400 MG TAB PO PRN ×2 (14:56→21:00)
[2021-12-08] MEDS: HEPARIN SODIUM,PORCINE/PF 5,000 UNIT/0.5 ML SYRINGE SQ SCH ×2 (16:54→23:31)
[2021-12-08 17:30] LABS: Glucose,Whole Blood 355 mg/dL (75-99)
[2021-12-08] MEDS: INSULIN ASPART (NovoLOG) 100 UNIT/ML VIAL SQ SCH (17:59)
[2021-12-08] MEDS: CALCIUM CARB-MAG CARB-FOLIC 1 EACH TAB PO SCH (18:45)
--- NOTE | 2021-12-08 18:59 | P.HPIM ---
History of Present Illness H&P Date: 12/08/21 HISTORY OF PRESENT ILLNESS: 61 year-old morbidly obese male one of Dr. Oshea patient with past medical history of end-stage renal disease on hemodialysis 3 times a week, history of type 2 diabetes on insulin, ischemic heart disease post to angioplasty and stent placement from last year, history of amputation of 3 and half finger of left hand secondary to chronic infection and osteomyelitis happen this last year with Dr. Christina orthopedic. Patient apparently seen cardiology regular basis also seen his seat builder and primary care on more regular basis as well. Patient was in hemodialysis today have the way to developed to have midsternal chest pain and angina lasted over an hour respond to nitroglycerin quite bed. Hemodialysis end up calling 911 patient was transported to the emergency department at [facility] by EMS he developed to have another episode of chest pain as he was the emergency department and it subtle down on its own. His testing in the emergency room including troponin was normal, his chemistry showed creatinine of 4.09 normal CBC with mild anemia only. Blood sugar was quite but elevated afterward patient has not taking his insulin today which will be started soon. Patient be admitted for anginal chest pain will be seen cardiology whether he can benefit from need any intervention is to be determined in the next 24 hours. Sadly patient developed to have infection of the right hand this time involving the finger is the first third and fifth with severe ulcerated vasculitis with infection involving the soft tissue and close to the joint. Patient was started on vancomycin we'll consult infectious disease and wound clinic at this point t he picture looked like somebody had infection with vasculitis altogether was treated with antibiotic, culture, and if patient eventually need biopsy to exclude the possibility of vasculitis might be highly recommended. REVIEW OF SYSTEMS: Constitutional: No fever, no chills, no night sweats. No weight change. No weakness, fatigue or lethargy. No daytime sleepiness. Morbidly obese does not look in any respiratory distress EENT: No headache. No blurred vision or double vision, no loss of vision. No loss of Hearing, no ringing in the ears, no dizziness. No nasal drainage or congestion. No epistaxis. No sore throat. Lungs: Significant shortness of breath with mild cough and wheezes. Cardiovascular: Positive chest pain, positive PND orthopnea palpitation with worsening fluid retention, worsening symptom with exertion and worsening exertional shortness of breath.. Abdominal: No abdominal pain. No nausea, vomiting. No diarrhea. No constipation. No bloody or tarry stools.. No loss of appetite. Genitourinary: No dysuria, increased frequency, urgency. No urinary retention. End-stage renal disease on hemodialysis Musculoskeletal: No myalgias. No muscle weakness, no gait dysfunction, no frequent falls. Positive lower back pain with slight arthritic pain and mild edema.. Integumentary: No wounds, no lesions. No rash or pruritus. No unusual brui sing. Significant change in vasculitis with infection of the right hand with amputation of 3 and half finger of the left side. Neurologic: No aphasia. No facial droop. No change in mentation. No head injury. No headache. No paralysis. No paresthesia. Psychiatric: No depression. No anxiety. No mood swings. Endocrine: No abnormal blood sugars. No weight change. No excessive sweating or thirst. No cold intolerance. SOCIAL HISTORY Patient is a former smoker who quit few month ago he smoked for many years, likely abuse, no drug use. Patient is on disability on hemodialysis 3 times a week. FAMILY HISTORY His mother age 58 from multiple sclerosis, father dying at age 65 from myocardial infarction and stroke PHYSICAL EXAMINATION Gen: This is a morbidly obese laying in bed with his head slightly but up no acute respiratory distress. HEENT: Head is atraumatic, normocephalic. Pupils equal, round. Sclerae is anicteric. NECK: Supple. No JVD. No lymphadenopathy. No thyromegaly. LUNGS: Decreased breath sounds especially in the left side with fine rhonchi in the right base with mild crackles. HEART: Regular rhythm and rate S1-S2 positive S3 positive JVD.. ABDOMEN: Soft. Positive Bowel sounds . No masses. No tenderness. EXTREMITIES: 1+ edema with slight discoloration from the knee down, the upper extremity patient had amputation of first second third than half the fifth finger of the left side but had an infection involving the first third and fifth finger on the right side with complete loss of nail of his entire hand, patient also had vascular change in the right side more consistent with vasculitis beside infection being so close to the joint and third finger. NEUROLOGICAL: Patient is awake, alert and oriented x3. Cranial nerves 2 through 12 are grossly intact. ASSESSMENT AND PLAN 1 atypical chest pain: With significant history of coronary artery disease post angioplasty and stent placement with known blockage, patient be hospitalized continue to do CK with troponin 3, continue antiplatelet agent at this point continue patient on nitro will consult cardiology if any elevated CK with troponin patient might need intervention if not echocardiogram and continue conservative management. Sadly with infection he had in the right hand patient would not be going for an intervention less his infection is very clear but again decision decided specially if his troponin is negative for next 24 hours. 2 severe CAD: Post angioplasty and stent placement done last year he still seeing cardiology regular basis has been on secondary prevention doing well. 3 severe vasculitis and infection of the finger of the right hand, patient was giving 1 g of Vanco, will be seen infectious disease continue IV antibiotics further investigation whether patient need vascular biopsy are not to be determined. 4 end-stage renal disease on hemodialysis 3 times a week consult nephrology 5 type 2 diabetes on insulin continue patient on his current dose of insulin wi th human and are 30 units before meals meals plus Levemir 60 units at at bedtime and continue Accu-Chek with sliding scales coverage. 7 hypothyroidism: Continue patient on levothyroxine 50 g daily. 8 anasarca and chronic edema combination of kidney failure along with diastolic heart failure patient has been on torsemide 40 mg daily continue medication continue dialysis to remove more fluid. 9 hyperlipidemia: Continue patient on atorvastatin 40 mg daily. 10 known cardiovascular heart disease: Post angioplasty and stent placement back in October 2020. 11 history of gout: Has been on Zyloprim 300 mg every other day. 12 DVT prophylaxis: Early mobilization along with heparin subcutaneous. 13 GI prophylaxis: Patient will be on Protonix 40 mg daily. 12 CODE STATUS: Full code Patient will be admitted to the hospital for a minimum of 2 night stay. Past Medical History Past Medical History: Coronary Artery Disease (CAD), Cancer, Heart Failure, CVA/TIA, Diabetes Mellitus, Eye Disorder, Hypertension, Myocardial Infarction ([place]), Renal Disease, Sleep Apnea/CPAP/BIPAP, Thyroid Disorder Additional Past Medical History / Comment(s): unhealing sore left index finger, neuropathy bilateral lower extremity/feet, bilateral eye diabetic retinopathy/poor vision/multiple injections, ESRD with hemodialysis T/TH/SAT from 6:15 to 11:00, anemia, "mini strokes" x2, AVANI with CPap use, occasional low back pain/disc disease, gout, hypothyroid Last Myocardial Infarction Date:: 10/20/20 History of Any Multi-Drug Resistant Organisms: None Reported Past Surgical History: Adenoidectomy, Bariatric Surgery, Cholecystectomy, Heart Catheterization, Heart Catheterization With Stent, Orthopedic Surgery, Tonsillectomy Additional Past Surgical History / Comment(s): 10/22/20 PCI with stents x2, lap banding, FX of right ankle repair pins / plate, fistual lt arm jul 2018, lt shoulder sx (d/t separation), colonoscopies, bilateral cataract removals/lens implants. LIF surgery 08/11/21 Past Anesthesia/Blood Transfusion Reactions: Motion Sickness Additional Past Anesthesia/Blood Transfusion Reaction / Comment(s): CLAUSTERPHOBIA Date of Last Stent Placement:: 10/22/20 Past Psychological History: Anxiety Smoking Status: Former smoker Past Alcohol Use History: None Reported Past Drug Use History: None Reported - Past Family History Mother History Unknown: Yes Family Medical History: Coronary Artery Disease (CAD), Myocardial Infarction (NC) Additional Family Medical History / Comment(s): Mother at age 58 from multiple sclerosis Father Family Medical History: CVA/TIA, Myocardial Infarction (NC) Additional Family Medical History / Comment(s): Father had history of NC and CVA followed by a second NC and CVA and at age 65. Brother(s) Additional Family Medical History / Comment(s): . Medications and Allergies Home Medications Medication Instructions Recorded Confirmed Type Atorvastatin [Lipitor] 40 mg PO HS 08/07/14 12/08/21 History Levothyroxine Sodium 100 mcg PO HS 07/06/17 12/08/21 History Torsemide [Demadex] 40 mg PO DAILY 09/10/19 12/08/21 History Allopurinol [Zyloprim] 300 mg PO HS 10/20/20 12/08/21 History Bryanna-Olimpia 1 tab PO DAILY 10/20/20 12/08/21 History HYDROcodone/APAP 10-325MG [[place] 1 tab PO QID PRN 11/24/20 12/08/21 History 10-325] Insulin Regular, Human [Novolin R 30 unit SQ ACHS PRN 11/24/20 12/08/21 History Flexpen] Insulin Detemir [Levemir Flextouch 60 units SQ HS 02/05/21 12/08/21 History Pen] Calcium Acetate [PhosLo] 667 mg PO DIRECTED 03/11/21 12/08/21 History LORazepam [Ativan] 0.5 mg PO BID PRN 03/11/21 12/08/21 History Nitroglycerin Sl Tabs [Nitrostat] 0.4 mg SL Q5M PRN 03/11/21 12/08/21 History Acetaminophen [Tylenol] 1,000 mg PO BID 09/06/21 12/08/21 History Calcium Carb-Mag Carb-Folic 1 tab PO DIRECTED 09/06/21 12/08/21 History [Magnebind 400] Lactulose 30 gm PO DAILY 09/06/21 12/08/21 History carvediloL [Coreg] 3.125 mg PO QAM 12/08/21 12/08/21 History carvediloL [Coreg] 6.25 mg PO HS 12/08/21 12/08/21 History Allergies Allergy/AdvReac Type Severity Reaction Status Date / Time No Known Allergies Allergy Verified 12/08/21 13:13 Physical Exam Vitals: Vital Signs Temp Pulse Pulse Resp BP BP Pulse Ox 12/08/21 17:37 98.1 F 82 20 146/73 97 12/08/21 16:52 75 18 130/72 96 12/08/21 10:54 99.4 F 86 18 142/95 98 Intake and Output 12/08/21 12/08/21 12/08/21 06:59 14:59 22:59 Other: Weight 147.418 kg Results CBC & Chem 7: 12/08/21 11:35 12/08/21 11:35 Labs: Abnormal Lab Results - Last 24 Hours (Table) 12/08/21 12/08/21 12/08/21 Range/Units 11:35 11:35 17:26 RBC 3.71 L (4.30-5.90) m/uL Hgb 11.4 L (13.0-17.5) gm/dL Hct 35.2 L (39.0-53.0) % RDW 15.7 H (11.5-15.5) % Neutrophils # 7.9 H (1.3-7.7) k/uL Sodium 131 L (137-145) mmol/L Chloride 92 L (98-107) mmol/L BUN 27 H (9-20) mg/dL Creatinine 4.09 H (0.66-1.25) mg/dL Glucose 176 H (74-99) mg/dL POC Glucose (mg/dL) 355 H (75-99) mg/dL Thrombosis Risk Factor Assmnt - Choose All That Apply Any of the Below Risk Factors Present?: Yes Each Factor Represents 1 point: Obesity (BMI >25) Other Risk Factors: Yes Each Risk Factor Represents 2 Points: Age 61-74 years, Malignancy Other congenital or acquired thrombophilia - If yes, enter type in comment: No Thrombosis Risk Factor Assessment Total Risk Factor Score: 5 Thrombosis Risk Factor Assessment Level: High Risk
[2021-12-08] MEDS: INSULIN REGULAR 100 UNIT/ML VIAL (IV) SQ SCH ×2 (19:26→21:01)
[2021-12-08 20:45] LABS: Glucose,Whole Blood 488 mg/dL (75-99)
[2021-12-08] MEDS: carvediloL 6.25 MG TAB PO SCH (21:00)
[2021-12-08] MEDS: LEVOTHYROXINE 100 MCG TAB PO SCH (21:00)
[2021-12-08] MEDS: allopurinoL 300 MG TAB PO SCH (21:00)
[2021-12-08] MEDS: INSULIN DETEMIR (LEVEMIR) 100 UNIT/ML SYR SQ SCH (21:01)
[2021-12-08] MEDS: ATORVASTATIN 40 MG TAB PO SCH (21:01)
[2021-12-08] MEDS: ACETAMINOPHEN TAB 500 MG TAB PO SCH (21:03)
[2021-12-08 22:54] LABS: Glucose,Whole Blood 470 mg/dL (75-99)
[2021-12-08] MEDS ORDERED: INSULIN ASPART (NovoLOG) 100 UNIT/ML VIAL SQ ONE (23:12)
[2021-12-08 23:33] LABS: Glucose,Whole Blood 349 mg/dL (75-99)
--- NOTE | 2021-12-08 23:59 | P.CONS ---
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 patient presenting to the ER for evaluation of chest pain which started while the patient was undergoing dialysis however relieved after he did receive a nitro tablet by EMS patient describing the pain to be more of a sharp in nature with no radiation the patient denies having any cough or sputum production denies have any nausea no vomiting no abdominal pain or any diarrhea patient was noticed to have a some laceration to his right hand finger especially the fifth finger and concern for possible cellulitis the patient was started on vancomycin pharmacy to dose and infectious disease was consulted for further management of antibiotic therapy patient on presentation to the hospital was afebrile and no fever had been recorded subsequently did have a normal white count with a left shift troponin has been negative blood culture obtained currently pending Review of Systems Positive point has been mentioned in the HPI rest of the systems are negative Past Medical History Past Medical History: Coronary Artery Disease (CAD), Cancer, Heart Failure, CVA/TIA, Diabetes Mellitus, Eye Disorder, Hypertension, Myocardial Infarction ([place]), Renal Disease, Sleep Apnea/CPAP/BIPAP, Thyroid Disorder Additional Past Medical History / Comment(s): unhealing sore left index finger, neuropathy bilateral lower extremity/feet, bilateral eye diabetic retinopathy/poor vision/multiple injections, ESRD with hemodialysis T//SAT fr om 6:15 to 11:00, anemia, "mini strokes" x2, AVANI with CPap use, occasional low back pain/disc disease, gout, hypothyroid Last Myocardial Infarction Date:: 10/20/20 History of Any Multi-Drug Resistant Organisms: None Reported Past Surgical History: Adenoidectomy, Bariatric Surgery, Cholecystectomy, Heart Catheterization, Heart Catheterization With Stent, Orthopedic Surgery, Tonsillectomy Additional Past Surgical History / Comment(s): 10/22/20 PCI with stents x2, lap banding, FX of right ankle repair pins / plate, fistual lt arm jul 2018, lt shoulder sx (d/t separation), colonoscopies, bilateral cataract removals/lens implants. LIF surgery 08/11/21 Past Anesthesia/Blood Transfusion Reactions: Motion Sickness Additional Past Anesthesia/Blood Transfusion Reaction / Comm: CLAUSTERPHOBIA Date of Last Stent Placement:: 10/22/20 Past Psychological History: Anxiety Smoking Status: Former smoker Past Alcohol Use History: None Reported Past Drug Use History: None Reported - Past Family History Mother History Unknown: Yes Family Medical History: Coronary Artery Disease (CAD), Myocardial Infarction ([place]) Additional Family Medical History / Comment(s): Mother at age 58 from multiple sclerosis Father Family Medical History: CVA/TIA, Myocardial Infarction ([place]) Additional Family Medical History / Comment(s): Father had history of [place] and CVA followed by a second [place] and CVA and at age 65. Brother(s) Additional Family Medical History / Comment(s): . Medications and Allergies Home Medications Medication Instructions Recorded Confirmed Type Atorvastatin [Lipitor] 40 mg PO HS 08/07/14 12/08/21 History Levothyroxine Sodium 100 mcg PO HS 07/06/17 12/08/21 History Torsemide [Demadex] 40 mg PO DAILY 09/10/19 12/08/21 History Allopurinol [Zyloprim] 300 mg PO HS 10/20/20 12/08/21 History Bryanna-Olimpia 1 tab PO DAILY 10/20/20 12/08/21 History HYDROcodone/APAP 10-325MG [[place] 1 tab PO QID PRN 11/24/20 12/08/21 History 10-325] Insulin Regular, Human [Novolin R 30 unit SQ ACHS PRN 11/24/20 12/08/21 History Flexpen] Insulin Detemir [Levemir Flextouch 60 units SQ HS 02/05/21 12/08/21 History Pen] Calcium Acetate [PhosLo] 667 mg PO DIRECTED 03/11/21 12/08/21 History LORazepam [Ativan] 0.5 mg PO BID PRN 03/11/21 12/08/21 History Nitroglycerin Sl Tabs [Nitrostat] 0.4 mg SL Q5M PRN 03/11/21 12/08/21 History Acetaminophen [Tylenol] 1,000 mg PO BID 09/06/21 12/08/21 History Calcium Carb-Mag Carb-Folic 1 tab PO DIRECTED 09/06/21 12/08/21 History [Magnebind 400] Lactulose 30 gm PO DAILY 09/06/21 12/08/21 History carvediloL [Coreg] 3.125 mg PO QAM 12/08/21 12/08/21 History carvediloL [Coreg] 6.25 mg PO HS 12/08/21 12/08/21 History Allergies Allergy/AdvReac Type Severity Reaction Status Date / Time No Known Allergies Allergy Verified 12/08/21 13:13 Physical Exam Vitals: Vital Signs Temp Pulse Resp BP Pulse Ox 12/08/21 10:54 99.4 F 86 18 142/95 98 Intake and Output 12/08/21 12/08/21 12/08/21 06:59 14:59 22:59 Other: Weight 147.418 kg GENERAL DESCRIPTION: Middle-aged male lying in bed, no distress. No tachypnea or accessory muscle of respiration use. HEENT: Shows Pallor , no scleral icterus. Oral mucous membrane is dry. No pharyngeal erythema or thrush NECK: Trachea central, no thyromegaly. LUNGS: Unlabored breathing. Clear to auscultation anteriorly. No wheeze or crac kle. HEART: S1, S2, regular rate and rhythm. No loud murmur ABDOMEN: Soft, no tenderness , guarding or rigidity, no organomegaly EXTREMITIES: Right hand fingertip with superficial ulceration some swelling minimal tenderness no drainage SKIN: No rash, no masses palpable. NEUROLOGICAL: The patient is awake, alert, oriented x3, mood and affect normal. Results CBC & Chem 7: 12/08/21 11:35 12/08/21 11:35 Labs: Abnormal Lab Results - Last 24 Hours (Table) 12/08/21 12/08/21 Range/Units 11:35 11:35 RBC 3.71 L (4.30-5.90) m/uL Hgb 11.4 L (13.0-17.5) gm/dL Hct 35.2 L (39.0-53.0) % RDW 15.7 H (11.5-15.5) % Neutrophils # 7.9 H (1.3-7.7) k/uL Sodium 131 L (137-145) mmol/L Chloride 92 L (98-107) mmol/L BUN 27 H (9-20) mg/dL Creatinine 4.09 H (0.66-1.25) mg/dL Glucose 176 H (74-99) mg/dL Assessment and Plan (1) Cellulitis Current Visit: Yes Status: Acute Code(s): L03.90 - CELLULITIS, UNSPECIFIED SNOMED Code(s): 979486849 Plan: 1patient with a 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 2vancomycin pharmacy to dose target trough of 15 while watching kidney function and vancomycin trough closely 3-Aquacel silver dressing to the open area of the finger change every 48 hour We will follow on clinical condition and cultures to further adjust medication if needed Thank you for this consultation will follow this patient along with you
[2021-12-09 02:08] LABS: Glucose,Whole Blood 177 mg/dL (75-99)
[2021-12-09] MEDS: HYDROcodone/APAP 10-325MG 1 EACH TAB PO PRN ×4 (03:21→22:42)
[2021-12-09] MEDS: IBUPROFEN 400 MG TAB PO PRN ×4 (03:24→22:42)
[2021-12-09 07:39] LABS: Glucose,Whole Blood 137 mg/dL (75-99)
[2021-12-09] MEDS: TORSEMIDE 20 MG TAB PO SCH (08:27)
[2021-12-09] MEDS: FOLIC ACID-VIT B COMPLEX-VIT C 1 CAP PO SCH (08:28)
[2021-12-09] MEDS: LACTULOSE 20 GM/30 ML CUP PO SCH (08:28)
[2021-12-09] MEDS: CALCIUM ACETATE 667 MG TAB PO SCH ×2 (08:28→12:33)
[2021-12-09] MEDS: carvediloL 3.125 MG TAB PO SCH (08:29)
[2021-12-09] MEDS: HEPARIN SODIUM,PORCINE/PF 5,000 UNIT/0.5 ML SYRINGE SQ SCH ×2 (08:29→15:39)
[2021-12-09] MEDS: ASPIRIN 81 MG PO SCH (08:29)
[2021-12-09] MEDS: ACETAMINOPHEN TAB 500 MG TAB PO SCH ×3 (08:29→21:27)
[2021-12-09] MEDS: INSULIN ASPART (NovoLOG) 100 UNIT/ML VIAL SQ SCH ×3 (08:37→17:42)
[2021-12-09] MEDS ORDERED: VANCOMYCIN 2,000 MG in SODIUM CHLORIDE 0.9% 500 ML 500 ML IVPB ONE (09:00)
[2021-12-09] MEDS: INSULIN REGULAR 100 UNIT/ML VIAL (IV) SQ SCH ×4 (09:12→21:26)
[2021-12-09 09:28] LABS: African American GFR (CKD) 10.4 (60.0-200.0); Anion Gap 16.6 mmol/L (10.00-18.00); BUN/Creat Ratio 6.85 Ratio (12.00-20.00); Blood Urea Nitrogen 42.2 mg/dL (9.0-27.0); Calcium 9.3 mg/dL (8.7-10.3); Carbon Dioxide 25.3 mmol/L (20.0-27.5); Potassium 4.6 mmol/L (3.5-5.5)
[2021-12-09 09:44] LABS: Basophils # (A) 0.05 X 10*3/uL (0.00-0.10); Basophils % (A) 0.7 %; Eosinophils % (A) 4.1 %; HCT 33.2 % (39.6-50.0); HGB 10.5 g/dL (13.0-17.0); Immature Grans, Automated 0.7 %; Lymphocytes # (A) 1.26 X 10*3/uL (0.90-5.00); Lymphocytes % (A) 17.3 %; MCH 30.1 pg (27.0-32.0); MCHC 31.6 g/dL (32.0-37.0); MCV 95.1 fL (80.0-97.0); Mean Platelet Volume 10.4 fL (9.5-12.2); Monocytes % (A) 8.3 %; NRBC Per 100 WBC 0 /100 WBCS (0.0-0.0); Neutrophils # (A) 5.01 X 10*3/uL (1.80-7.70); Neutrophils % (A) 68.9 %; Platelet Count 139 X 10*3/uL (140-440); RBC 3.49 X 10*6/uL (4.40-5.60); RDW 15.3 % (11.5-14.5); WBC 7.27 X 10*3/uL (4.50-10.00)
--- NOTE | 2021-12-09 10:41 | ECHOF ---
Referral Reason:chest pain MEASUREMENTS -------- HEIGHT: 180.3 cm WEIGHT: 147.4 kg BP: 142/95 RVIDd: 3.6 cm (< 3.3) IVSd: 1.4 cm (0.6 - 1.1) LVIDd: 4.9 cm (3.9 - 5.3) LVPWd: 1.6 cm (0.6 - 1.1) IVSs: 2.0 cm LVIDs: 3.1 cm LVPWs: 1.9 cm LA Diam: 3.7 cm (2.7 - 3.8) Ao Diam: 3.2 cm (2.0 - 3.7) AV Cusp: 2.3 cm (1.5 - 2.6) MV EXCURSION: 16.790 mm (> 18.000) MV EF SLOPE: 77 mm/s (70 - 150) EPSS: 0.3 cm MV E Kenny: 1.01 m/s MV DecT: 215 ms MV A Kenny: 1.06 m/s MV E/A Ratio: 0.96 RAP: 5.00 mmHg RVSP: 23.43 mmHg FINDINGS -------- Sinus rhythm. This was a technically difficult study with suboptimal apical views. The left ventricular size is normal. There is moderate concentric left ventricular hypertrophy. O verall left ventricular systolic function is normal with, an EF between 55 - 60 %. The right ventricle is mildly enlarged. The left atrium is normal in size. The right atrium is normal in size. 3.0mg of Lumason was utilized for enhancement of images Interatrial and interventricular septum intact. The aortic valve is trileaflet, and appears structurally normal. No aortic stenosis or regurgitation. Mild mitral annular calcification present. Mild tricuspid regurgitation present. Right ventricular systolic pressure is normal at < 35 mmHg. The pulmonic valve is normal. The aortic root size is normal. Normal inferior vena cava with normal inspiratory collapse consistent with estimated right atrial pre ssure of 5 mmHg. There is no pericardial effusion. CONCLUSIONS -------- 1. The left ventricular size is normal. 2. There is moderate concentric left ventricular hypertrophy. 3. Overall left ventricular systolic function is normal with, an EF between 55 - 60 %. 4. The right ventricle is mildly enlarged. 5. 3.0mg of Lumason was utilized for enhancement of images 6. Mild mitral annular calcification present. 7. Mild tricuspid regurgitation present. 8. There is no pericardial effusion. PRODUCT DEVELOPER: Sharita Navarro RDCS
--- NOTE | 2021-12-09 10:50 | P.CRDCN ---
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 Patient follows in the office with Dr. Liz. We have been asked to see the patient in consultation for chest pain. Patient presents emergency department with an episode of chest pain. Patient states that yesterday during dialysis he had left-sided chest pain. Nonradiating, nonexertional. No associated symptoms. He states it lasts about 30 minutes. He states that the bioinformatics research technician, gave him some fluid back but no relief with chest pain. Due to concern of chest pain during dialysis they sent him to the ER. He was given a sublingual nitroglycerin with chest pain relief. He states this morning around 4 AM he also had an episode left-sided sharp chest pain that lasted about 5 minutes and resolved on its own. He had no other symptoms. He denies any diaphoresis, nausea, shortness of breath, lightheadedness, dizziness. He states that this chest discomfort is different from when he had his stents placed in October of last year, at that time he had symptoms of chest tightness. He is a former smoker quit in 2006. DIAGNOSTICS: EKG reveals sinus rhythm, heart rate 77, PVC, appears to fabor early repolarization noted in inferior and lateral leads rather than ST elevation in all leads seen with pericarditis. Prior EKG appear similar. Chest xray small posterior pleural effusion Laboratory data: Troponin negative 3, WBC 7.2, hemoglobin 10.5, platelets 139, sodium 133, potassium 4.6, BN42, serum creatinine 6.2 Current home cardiac medications include aspirin 81 mg daily, Lipitor 40 mg daily, Plavix 75 mg daily, Coreg 6.25 mg at night and 3.125 mg in the morning Echocardiogram 03/11/2021- EF is 55-60%, moderate concentric left ventricular hypertrophy, trace to mild mitral regurgitation. Cardiac catheterization history: October 2020 revealing 95% stenosis of the mid RCA. Patient underwent PCI to RCA. REVIEW OF SYSTEMS: At the time of my exam: CONSTITUTIONAL: Denies fever or chills. HEENT: Denies blurred vision, vision changes, or eye pain. Denies hemoptysis CARDIOVASCULAR: Denies chest pain Denies orthopnea. Denies PND. Denies palpitations RESPIRATORY: Denies shortness of breath. GASTROINTESTINAL: Denies abdominal pain. Denies nausea or vomiting. HEMATOLOGIC: Denies bleeding disorders. GENITOURINARY: Denies any blood in urine. SKIN: Denies pruitis. Denies rash. PHYSICAL EXAM: VITAL SIGNS: Reviewed. GENERAL: Well-developed in no acute distress. HEENT: Head is normocephalic. Pupils are equal, round. Sclerae anicteric. Mucous membranes of the mouth are moist. Neck supple. No JVD or thyromegaly LUNGS: Respirations even and unlabored. Lungs diminished bilaterally. HEART: Regular rate and rhythm. S1 and S2 heard. ABDOMEN: Soft. Nondistended. Nontender. EXTREMITIES: Normal range of motion. No clubbing or cyanosis. Peripheral pulses intact. No lower extremity edema SKIN: Right hand first and third fingers with swelling and redness NEUROLOGIC: Awake and alert. Oriented x 3. ASSESSMENT: Chest pain, atypical, acute coronary syndrome has ruled out. Right hand swelling and infection possible cellulitis Coronary artery disease with PCI to RCA, October 2020 History of pericardial effusion with tamponade, status post pericardial window, November 2020 End-stage renal disease on hemodialysis Hypertension Hyperlipidemia Diabetes mellitus Obesity: BMI 45 PLAN: Echocardiogram revealed EF of 5560 percent, mild tricuspid regurgitation, moderate LVH, no significant wall motion abnormalities. From a cardiology perspective no further workup for patient's chest pain at this time. We will follow the patient as needed. Recommend continuing patient's home cardiac medications Patient to follow up outpatient with Dr. Liz Nurse practitioner note has been reviewed by physician. Signing provider agrees with the documented findings, assessment, and plan of care. Past Medical History Past Medical History: Coronary Artery Disease (CAD), Cancer, Heart Failure, CVA/TIA, Diabetes Mellitus, Eye Disorder, Hypertension, Myocardial Infarction ([place]), Renal Disease, Sleep Apnea/CPAP/BIPAP, Thyroid Disorder Additional Past Medical History / Comment(s): unhealing sore left index finger, neuropathy bilateral lower extremity/feet, bilateral eye diabetic retin opathy/poor vision/multiple injections, ESRD with hemodialysis T/TH/SAT from 6:15 to 11:00, anemia, "mini strokes" x2, AVANI with CPap use, occasional low back pain/disc disease, gout, hypothyroid Last Myocardial Infarction Date:: 10/20/20 History of Any Multi-Drug Resistant Organisms: None Reported Past Surgical History: Adenoidectomy, Bariatric Surgery, Cholecystectomy, Heart Catheterization, Heart Catheterization With Stent, Orthopedic Surgery, Tonsillectomy Additional Past Surgical History / Comment(s): 10/22/20 PCI with stents x2, lap banding, FX of right ankle repair pins / plate, fistual lt arm jul 2018, lt shoulder sx (d/t separation), colonoscopies, bilateral cataract removals/lens implants. LIF surgery 08/11/21 Past Anesthesia/Blood Transfusion Reactions: Motion Sickness Additional Past Anesthesia/Blood Transfusion Reaction / Comment(s): CLAUSTERPHOBIA Date of Last Stent Placement:: 10/22/20 Past Psychological History: Anxiety Smoking Status: Former smoker Past Alcohol Use History: None Reported Past Drug Use History: None Reported - Past Family History Mother History Unknown: Yes Family Medical History: Coronary Artery Disease (CAD), Myocardial Infarction ([place]) Additional Family Medical History / Comment(s): Mother at age 58 from multiple sclerosis Father Family Medical History: CVA/TIA, Myocardial Infarction ([place]) Additional Family Medical History / Comment(s): Father had history of ID and CVA followed by a second ID and CVA and at age 65. Brother(s) Additional Family Medical History / Comment(s): . Medications and Allergies Home Medications Medication Instructions Recorded Confirmed Type Atorvastatin [Lipitor] 40 mg PO HS 08/07/14 12/08/21 History Levothyroxine Sodium 100 mcg PO HS 07/06/17 12/08/21 History Torsemide [Demadex] 40 mg PO DAILY 09/10/19 12/08/21 History Allopurinol [Zyloprim] 300 mg PO HS 10/20/20 12/08/21 History Bryanna-Olimpia 1 tab PO DAILY 10/20/20 12/08/21 History HYDROcodone/APAP 10-325MG [[place] 1 tab PO QID PRN 11/24/20 12/08/21 History 10-325] Insulin Regular, Human [Novolin R 30 unit SQ ACHS PRN 11/24/20 12/08/21 History Flexpen] Insulin Detemir [Levemir Flextouch 60 units SQ HS 02/05/21 12/08/21 History Pen] Calcium Acetate [PhosLo] 667 mg PO DIRECTED 03/11/21 12/08/21 History LORazepam [Ativan] 0.5 mg PO BID PRN 03/11/21 12/08/21 History Nitroglycerin Sl Tabs [Nitrostat] 0.4 mg SL Q5M PRN 03/11/21 12/08/21 History Acetaminophen [Tylenol] 1,000 mg PO BID 09/06/21 12/08/21 History Calcium Carb-Mag Carb-Folic 1 tab PO DIRECTED 09/06/21 12/08/21 History [Magnebind 400] Lactulose 30 gm PO DAILY 09/06/21 12/08/21 History carvediloL [Coreg] 3.125 mg PO QAM 12/08/21 12/08/21 History carvediloL [Coreg] 6.25 mg PO HS 12/08/21 12/08/21 History Allergies Allergy/AdvReac Type Severity Reaction Status Date / Time No Known Allergies Allergy Verified 12/08/21 13:13 Physical Exam Vitals: Vital Signs Temp Pulse Pulse Resp BP BP Pulse Ox 12/09/21 02:33 98.4 F 82 17 110/65 98 12/08/21 19:36 82 20 12/08/21 19:31 98.2 F 79 17 107/58 97 12/08/21 17:56 82 20 12/08/21 17:37 98.1 F 82 20 146/73 97 12/08/21 16:52 75 18 130/72 96 12/08/21 10:54 99.4 F 86 18 142/95 98 Intake and Output 12/08/21 12/09/21 12/09/21 22:59 06:59 14:59 Intake Total 0 Balance 0 Intake: Oral 0 Other: Voiding Method Toilet Toilet # Voids 0 2 Results 12/09/21 06:16 12/09/21 06:16 Cardiac Enzymes 12/08/21 12/08/21 12/08/21 Range/Units 11:35 11:35 16:25 AST 17 (17-59) U/L Troponin I 0.013 0.012 (0.000-0.034) ng/mL 12/08/21 Range/Units 18:32 AST (17-59) U/L Troponin I <0.012 (0.000-0.034) ng/mL Coagulation 12/08/21 Range/Units 11:35 PT 9.9 (9.0-12.0) sec APTT 26.9 (22.0-30.0) sec CBC 12/08/21 Range/Units 11:35 WBC 9.9 (3.8-10.6) k/uL RBC 3.71 L (4.30-5.90) m/uL Hgb 11.4 L (13.0-17.5) gm/dL Hct 35.2 L (39.0-53.0) % Plt Count 150 (150-450) k/uL Comprehensive Metabolic Panel 12/08/21 Range/Units 11:35 Sodium 131 L (137-145) mmol/L Potassium 3.8 (3.5-5.1) mmol/L Chloride 92 L (98-107) mmol/L Carbon Dioxide 27 (22-30) mmol/L BUN 27 H (9-20) mg/dL Creatinine 4.09 H (0.66-1.25) mg/dL Glucose 176 H (74-99) mg/dL Calcium 9.0 (8.4-10.2) mg/dL AST 17 (17-59) U/L ALT 17 (4-49) U/L Alkaline Phosphatase 125 (38-126) U/L Total Protein 7.2 (6.3-8.2) g/dL Albumin 3.8 (3.5-5.0) g/dL Current Medications Generic Name Dose Route Start Last Admin Trade Name Freq PRN Reason Stop Dose Admin Acetaminophen 1,000 mg 12/08/21 21:00 12/08/21 21:03 Acetaminophen Tab 500 Mg Tab PO Not Given BID ALINE Hydrocodone Bitart/Acetaminophen 1 each 12/08/21 13:57 12/09/21 03:21 Hydrocodone/Apap 10-325mg 1 Each Tab PO 1 each QID PRN Administration Pain Allopurinol 300 mg 12/08/21 21:00 12/08/21 21:00 Allopurinol 300 Mg Tab PO 300 mg HS ALINE Administration Atorvastatin Calcium 40 mg 12/08/21 21:00 12/08/21 21:01 Atorvastatin 40 Mg Tab PO 40 mg HS ALINE Administration Ca Carbonate/Folic Ac/Mg Carbonate 1 each 12/10/21 07:30 12/08/21 18:42 Calcium Carb-Mag Carb-Folic 1 Each Tab PO 1 each Q48H [facility]INE Administration Ca Carbonate/Folic Ac/Mg Carbonate 1 each 12/10/21 12:30 Calcium Carb-Mag Carb-Folic 1 Each Tab PO Q48H [facility]INE Ca Carbonate/Folic Ac/Mg Carbonate 1 each 12/08/21 17:30 12/08/21 18:45 Calcium Carb-Mag Carb-Folic 1 Each Tab PO 1 each Q48H [facility] Administration Calcium Acetate 667 mg 12/09/21 07:30 Calcium Acetate 667 Mg Tab PO Q48H [facility] Calcium Acetate 667 mg 12/09/21 12:30 Calcium Acetate 667 Mg Tab PO Q48H [facility] Calcium Acetate 667 mg 12/09/21 17:30 Calcium Acetate 667 Mg Tab PO Q48H [facility] Carvedilol 3.125 mg 12/09/21 09:00 Carvedilol 3.125 Mg Tab PO QAM [facility] Carvedilol 6.25 mg 12/08/21 21:00 12/08/21 21:00 Carvedilol 6.25 Mg Tab PO 6.25 mg HS [facility] Administration Heparin Sodium (Porcine) 5,000 unit 12/08/21 16:00 12/08/21 23:31 Heparin Sodium,Porcine/Pf 5,000 Unit/0.5 Ml Syringe SQ 5,000 unit Q8HR [facility] Administration Vancomycin HCl 2,000 mg/ 500 mls @ 167 mls/hr 12/09/21 09:00 Sodium Chloride IVPB 12/09/21 11:59 ONCE ONE Ibuprofen 400 mg 12/08/21 13:15 12/09/21 03:24 Ibuprofen 400 Mg Tab PO 400 mg Q6HR PRN Administration Mild Pain or Fever > 100.5 Insulin Aspart 0 unit 12/08/21 17:30 12/08/21 17:59 Insulin Aspart (Novolog) 100 Unit/Ml Vial SQ Not Given AC-TID [facility] Protocol Insulin Detemir 60 unit 12/08/21 21:00 12/08/21 21:01 Insulin Detemir (Levemir) 100 Unit/Ml Syr SQ 60 unit HS [facility] Administration Insulin Human Regular 30 unit 12/08/21 17:30 12/08/21 21:01 Insulin Regular 100 Unit/Ml Vial (Iv) SQ 30 unit ACHS [facility] Administration Lactulose 30 gm 12/09/21 09:00 Lactulose 20 Gm/30 Ml Cup PO DAILY [facility] Levothyroxine Sodium 100 mcg 12/08/21 21:00 12/08/21 21:00 Levothyroxine 100 Mcg Tab PO 100 mcg HS [facility] Administration Lorazepam 0.5 mg 12/08/21 13:57 Lorazepam 0.5 Mg Tab PO BID PRN Anxiety Miscellaneous Information 1 each 12/08/21 13:15 Vancomycin Iv Per Pharmacy 1 Each Misc MISCELLANE DIRECTED PRN Per Protocol Protocol Multivit/Ca Carb/B Cmplx/FA/Prenat 1 each 12/09/21 09:00 Folic Acid-Vit B Complex-Vit C 1 Cap PO DAILY [facility] Naloxone HCl 0.2 mg 12/08/21 13:15 Naloxone 0.4 Mg/Ml 1 Ml Vial IV Q2M PRN Opioid Reversal Torsemide 40 mg 12/09/21 09:00 Torsemide 20 Mg Tab PO DAILY [facility] Intake and Output 12/08/21 12/09/21 12/09/21 22:59 06:59 14:59 Intake Total 0 Balance 0 Intake: Oral 0 Other: Voiding Method Toilet Toilet # Voids 0 2 12/08/21 11:35 12/08/21 11:35
--- NOTE | 2021-12-09 11:23 | P.CNOR ---
History of Present Illness - HPI Consult date: 12/09/21 Consult reason: other (Cellulitis right little finger, right thumb) History of present illness: This is a 61-year-old male who is well known to our practice with history of multiple partially dictations of the fingers of left hand. He began having some redness and swelling to the right little finger, middle finger and thumb not too long ago. He developed an ulcer to the little finger which has now opened up. He states that he lost the nail about a week ago. He is admitted to the hospital for workup regarding his chest pain. We're consulted for follow-up evaluation of his right hand. Past Medical History Past Medical History: Coronary Artery Disease (CAD), Cancer, Heart Failure, CVA/TIA, Diabetes Mellitus, Eye Disorder, Hypertension, Myocardial Infarction ([place]), Renal Disease, Sleep Apnea/CPAP/BIPAP, Thyroid Disorder Additional Past Medical History / Comment(s): unhealing sore left index finger, neuropathy bilateral lower extremity/feet, bilateral eye diabetic retinopathy/poor vision/multiple injections, ESRD with hemodialysis T//SAT from 6:15 to 11:00, anemia, "mini strokes" x2, AVANI with CPap use, occasional low back pain/disc disease, gout, hypothyroid Last Myocardial Infarction Date:: 10/20/20 History of Any Multi-Drug Resistant Organisms: None Reported Past Surgical History: Adenoidectomy, Bariatric Surgery, Cholecystectomy, Heart Catheterization, Heart Catheterization With Stent, Orthopedic Surgery, Tonsillectomy Additional Past Surgical History / Comment(s): 10/22/20 PCI with stents x2, lap banding, FX of right ankle repair pins / plate, fistual lt arm jul 2018, lt shoulder sx (d/t separation), colonoscopies, bilateral cataract removals/lens implants. LIF surgery 08/11/21 Past Anesthesia/Blood Transfusion Reactions: Motion Sickness Additional Past Anesthesia/Blood Transfusion Reaction / Comm: CLAUSTERPHOBIA Date of Last Stent Placement:: 10/22/20 Past Psychological History: Anxiety Smoking Status: Former smoker Past Alcohol Use History: None Reported Past Drug Use History: None Reported - Past Family History Mother History Unknown: Yes Family Medical History: Coronary Artery Disease (CAD), Myocardial Infarction ([place]) Additional Family Medical History / Comment(s): Mother at age 58 from multiple sclerosis Father Family Medical History: CVA/TIA, Myocardial Infarction ([place]) Additional Family Medical History / Comment(s): Father had history of [place] and CVA followed by a second [place] and CVA and at age 65. Brother(s) Additional Family Medical History / Comment(s): . Medications and Allergies Home Medications Medication Instructions Recorded Confirmed Type Atorvastatin [Lipitor] 40 mg PO HS 08/07/14 12/08/21 History Levothyroxine Sodium 100 mcg PO HS 07/06/17 12/08/21 History Torsemide [Demadex] 40 mg PO DAILY 09/10/19 12/08/21 History Allopurinol [Zyloprim] 300 mg PO HS 10/20/20 12/08/21 History Bryanna-Olimpia 1 tab PO DAILY 10/20/20 12/08/21 History HYDROcodone/APAP 10-325MG [[place] 1 tab PO QID PRN 11/24/20 12/08/21 History 10-325] Insulin Regular, Human [Novolin R 30 unit SQ ACHS PRN 11/24/20 12/08/21 History Flexpen] Insulin Detemir [Levemir Flextouch 60 units SQ HS 02/05/21 12/08/21 History Pen] Calcium Acetate [PhosLo] 667 mg PO DIRECTED 03/11/21 12/08/21 History LORazepam [Ativan] 0.5 mg PO BID PRN 03/11/21 12/08/21 History Nitroglycerin Sl Tabs [Nitrostat] 0.4 mg SL Q5M PRN 03/11/21 12/08/21 History Acetaminophen [Tylenol] 1,000 mg PO BID 09/06/21 12/08/21 History Calcium Carb-Mag Carb-Folic 1 tab PO DIRECTED 09/06/21 12/08/21 History [Magnebind 400] Lactulose 30 gm PO DAILY 09/06/21 12/08/21 History carvediloL [Coreg] 3.125 mg PO QAM 12/08/21 12/08/21 History carvediloL [Coreg] 6.25 mg PO HS 12/08/21 12/08/21 History Allergies Allergy/AdvReac Type Severity Reaction Status Date / Time No Known Allergies Allergy Verified 12/08/21 13:13 Physical Examination Exam of the right hand reveals an ulcerated little finger on the dorsal aspect with the absence of the fingernail. There is some purulent material in the wound. He has limited motion at the DIP joint. There is some skin ulceration to the middle finger which does appear fairly superficial. There is ulceration to the thumb with slight purulence. He has fairly good MCP joint and wrist motion without difficulty or pain. Neurovascular status is grossly intact. Results X-rays of the right hand reveal bony erosion of the distal phalanx of the little finger with some subluxation at the DIP joint. No other bony abnormalities or evidence of vasculitis noted to the other fingers at this time. - Labs Labs: Abnormal Lab Results - Last 24 Hours (Table) 12/08/21 12/08/21 12/08/21 Range/Units 11:35 11:35 17:26 RBC 3.71 L (4.30-5.90) m/uL Hgb 11.4 L (13.0-17.5) gm/dL Hct 35.2 L (39.0-53.0) % MCHC (32.0-37.0) g/dL RDW 15.7 H (11.5-15.5) % Plt Count (140-440) X 10*3/uL Immature Gran # (0.00-0.04) X 10*3/uL Neutrophils # 7.9 H (1.3-7.7) k/uL Sodium 131 L (137-145) mmol/L Chloride 92 L (98-107) mmol/L BUN 27 H (9-20) mg/dL Creatinine 4.09 H (0.66-1.25) mg/dL Est GFR (CKD-EPI)AfAm (60.0-200.0) Est GFR (CKD-EPI)NonAf (60.0-200.0) BUN/Creatinine Ratio (12.00-20.00) Ratio Glucose 176 H (74-99) mg/dL POC Glucose (mg/dL) 355 H (75-99) mg/dL 12/08/21 12/08/21 12/08/21 Range/Units 20:43 22:52 23:32 RBC (4.30-5.90) m/uL Hgb (13.0-17.5) gm/dL Hct (39.0-53.0) % MCHC (32.0-37.0) g/dL RDW (11.5-15.5) % Plt Count (140-440) X 10*3/uL Immature Gran # (0.00-0.04) X 10*3/uL Neutrophils # (1.3-7.7) k/uL Sodium (137-145) mmol/L Chloride (98-107) mmol/L BUN (9-20) mg/dL Creatinine (0.66-1.25) mg/dL Est GFR (CKD-EPI)AfAm (60.0-200.0) Est GFR (CKD-EPI)NonAf (60.0-200.0) BUN/Creatinine Ratio (12.00-20.00) Ratio Glucose (74-99) mg/dL POC Glucose (mg/dL) 488 H 470 H 349 H (75-99) mg/dL 12/09/21 12/09/21 12/09/21 Range/Units 02:07 06:16 06:16 RBC 3.49 L (4.30-5.90) m/uL Hgb 10.5 L (13.0-17.5) gm/dL Hct 33.2 L (39.0-53.0) % MCHC 31.6 L (32.0-37.0) g/dL RDW 15.3 H (11.5-15.5) % Plt Count 139 L (140-440) X 10*3/uL Immature Gran # 0.05 H (0.00-0.04) X 10*3/uL Neutrophils # (1.3-7.7) k/uL Sodium 133 L (137-145) mmol/L Chloride 91 L (98-107) mmol/L BUN 42.2 H (9-20) mg/dL Creatinine 6.2 H (0.66-1.25) mg/dL Est GFR (CKD-EPI)AfAm 10.4 L (60.0-200.0) Est GFR (CKD-EPI)NonAf 9.0 L (60.0-200.0) BUN/Creatinine Ratio 6.85 L (12.00-20.00) Ratio Glucose 114 H (74-99) mg/dL POC Glucose (mg/dL) 177 H (75-99) mg/dL 12/09/21 Range/Units 07:37 RBC (4.30-5.90) m/uL Hgb (13.0-17.5) gm/dL Hct (39.0-53.0) % MCHC (32.0-37.0) g/dL RDW (11.5-15.5) % Plt Count (140-440) X 10*3/uL Immature Gran # (0.00-0.04) X 10*3/uL Neutrophils # (1.3-7.7) k/uL Sodium (137-145) mmol/L Chloride (98-107) mmol/L BUN (9-20) mg/dL Creatinine (0.66-1.25) mg/dL Est GFR (CKD-EPI)AfAm (60.0-200.0) Est GFR (CKD-EPI)NonAf (60.0-200.0) BUN/Creatinine Ratio (12.00-20.00) Ratio Glucose (74-99) mg/dL POC Glucose (mg/dL) 137 H (75-99) mg/dL H & H 12/08/21 12/09/21 Range/Units 11:35 06:16 Hgb 11.4 L 10.5 L (13.0-17.5) gm/dL Hct 35.2 L 33.2 L (39.0-53.0) % Coagulation 12/08/21 Range/Units 11:35 INR 0.9 (<1.2) Result Diagrams: 12/09/21 06:16 12/09/21 06:16 Assessment and Plan (1) Cellulitis Current Visit: Yes Status: Acute Code(s): L03.90 - CELLULITIS, UNSPECIFIED SNOMED Code(s): 561262780 (2) Chronic kidney disease Current Visit: No Status: Acute Code(s): N18.9 - CHRONIC KIDNEY DISEASE, UNSPECIFIED SNOMED Code(s): 479301633 (3) Diabetes with skin ulcer Current Visit: No Status: Acute Code(s): E11.622 - TYPE 2 DIABETES MELLITUS WITH OTHER SKIN ULCER; L98.499 - NON-PRESSURE CHRONIC ULCER OF SKIN OF SITES W UNSP SEVERITY SNOMED Code(s): 58450702 (4) Osteomyelitis Current Visit: No Status: Acute Code(s): M86.9 - OSTEOMYELITIS, UNSPECIFIED SNOMED Code(s): 32491568 Plan: The clinical and x-ray findings are discussed the patient. I have reviewed the case with Dr. Christina. She would like an MRI of the right hand. I will order the MRI and we will follow up with results.
[2021-12-09] MEDS ORDERED: LORazepam 2 MG/ML INJ IV STA (11:25)
--- NOTE | 2021-12-09 12:10 | P.PN ---
Subjective Progress Note Date: 12/09/21 HISTORY OF PRESENT ILLNESS: 61 year-old morbidly obese male one of Dr. Oshea patient with past medical history of end-stage renal disease on hemodialysis 3 times a week, history of type 2 diabetes on insulin, ischemic heart disease post to angioplasty and stent placement from last year, history of amputation of 3 and half finger of left hand secondary to chronic infection and osteomyelitis happen this last year with Dr. Christina orthopedic. Patient apparently seen cardiology regular basis also seen his test carrier and primary care on more regular basis as well. Patient was in hemodialysis today have the way to developed to have midsternal chest pain and angina lasted over an hour respond to nitroglycerin quite bed. Hemodialysis end up calling 911 patient was transported to the emergency department at [facility] by EMS he developed to have another episode of chest pain as he was the emergency department and it subtle down on its own. His testing in the emergency room including troponin was normal, his chemistry showed creatinine of 4.09 normal CBC with mild anemia only. Blood sugar was quite but elevated afterward patient has not taking his insulin today which will be started soon. Patient be admitted for anginal chest pain will be seen cardiology whether he can benefit from need any intervention is to be determined in the next 24 hours. Sadly patient developed to have infection of the right hand this time involving the finger is the first third and fifth with severe ulcerated vasculitis with infection involving the soft tissue and close to the joint. Patient was started on vancomycin we'll consult infectious disease and wound clinic at this point the picture looked like somebody had infection with vasculitis altogether was treated with antibiotic, culture, and if patient eventually need biopsy to exclude the possibility of vasculitis might be highly recommended. 12/09: Patient has been seen by cardiology and echocardiogram ordered and once this is reviewed, patient most likely will be cleared for discharge by cardiology. Regarding cellulitis of both fingertips, consult added for Dr. Christina regarding possible vasculitis and consult added for nephrology for end-stage renal disease. Patient has been afebrile, heart rate 67, blood pressure 121/76, pulse ox 90% on room air. Repeat blood work reveals hemoglobin 10.5, platelets 139. Sodium 133, potassium 4.6, chloride 91, CO2 25. BUN 42 and creatinine 6.2. Currently blood glucose running quite high yesterday at the 300s and 400s, this morning 137. Patient has been seen by Dr. Madera for cellulitis the right hand and finger most significant at the fifth. He has recommended Aquacel Ag dressings every 48 hours, vancomycin. Orthopedics has ordered an MRI of the r ight hand. REVIEW OF SYSTEMS: Constitutional: No fever, no chills, no night sweats. No weight change. No weakness, fatigue or lethargy. No daytime sleepiness. Morbidly obese does not look in any respiratory distress EENT: No headache. No blurred vision or double vision, no loss of vision. No loss of Hearing, no ringing in the ears, no dizziness. No nasal drainage or congestion. No epistaxis. No sore throat. Lungs: Significant shortness of breath with mild cough and wheezes. Cardiovascular: Positive chest pain, positive PND orthopnea palpitation with worsening fluid retention, worsening symptom with exertion and worsening exertional shortness of breath.. Abdominal: No abdominal pain. No nausea, vomiting. No diarrhea. No constipation. No bloody or tarry stools.. No loss of appetite. Genitourinary: No dysuria, increased frequency, urgency. No urinary retention. End-stage renal disease on hemodialysis Musculoskeletal: No myalgias. No muscle weakness, no gait dysfunction, no frequent falls. Positive lower back pain with slight arthritic pain and mild edema.. Integumentary: Reported wounds and cellulitis of the right hand, no lesions. No rash or pruritus. No unusual bruising. Significant change in vasculitis with infection of the right hand with amputation of 3 and half finger of the left side. Neurologic: No aphasia. No facial droop. No change in mentation. No head injury. No headache. No paralysis. No paresthesia. Psychiatric: No depression. No anxiety. No mood swings. Endocrine: No abnormal blood sugars. No weight change. No excessive sweating or thirst. No cold intolerance. PHYSICAL EXAMINATION Gen: This is a morbidly obese laying in bed with his head slightly but up no acute respiratory distress. HEENT: Head is atraumatic, normocephalic. Pupils equal, round. Sclerae is anicteric. NECK: Supple. No JVD. No lymphadenopathy. No thyromegaly. LUNGS: Decreased breath sounds especially in the left side with fine rhonchi in the right base with mild crackles. HEART: Regular rhythm and rate S1-S2 positive S3 positive JVD.. ABDOMEN: Soft. Positive Bowel sounds . No masses. No tenderness. EXTREMITIES: 1+ edema with slight discoloration from the knee down, the upper extremity patient had amputation of first second third than half the fifth finger of the left side but had an infection involving the first third and fifth finger on the right side with complete loss of nail of his entire hand, patient also had vascular change in the right side more consistent with vasculitis beside infection being so close to the joint and third finger. NEUROLOGICAL: Patient is awake, alert and oriented x3. Cranial nerves 2 through 12 are grossly intact. ASSESSMENT AND PLAN 1 atypical chest pain: With significant history of coronary artery disease post angioplasty and stent placement with known blockage. Patient has been evaluated by cardiology with plan for echocardiogram and cleared for discharge. Acute coronary syndrome ruled out. 2 severe CAD: Post angioplasty and stent placement done last year he still seeing cardiology regular basis has been on secondary prevention doing well. 3 severe vasculitis and fingertip infection of the finger of the right hand, Continued on vancomycin, consult with infectious disease, consult with orthopedics appreciated, MRI of the right hand ordered. 4 end-stage renal disease on hemodialysis 3 times a week consult nephrology 5 type 2 diabetes on insulin. Continue patient on home dose of long-acting Levemir 60 units at bedtime, Humulin R 30 units before meals and at bedtime, NovoLog scale 3 times daily. 7 hypothyroidism: Continue patient on levothyroxine 50 g daily. 8 anasarca and chronic edema combination of kidney failure along with diastolic heart failure patient has been on torsemide 40 mg daily continue medication continue dialysis to remove more fluid. 9 hyperlipidemia: Continue patient on atorvastatin 40 mg daily. 10 known cardiovascular heart disease: Post angioplasty and stent placement back in October 2020. 11 history of gout: Has been on Zyloprim 300 mg every other day. 12 DVT prophylaxis: Early mobilization along with heparin subcutaneous. 13 GI prophylaxis: Patient will be on Protonix 40 mg daily. 12 CODE STATUS: Full code Impression and plan of care have been directed as dictated by the signing physician. Laine Jones nurse practitioner acting as scribe for signing phys ician. Objective - Vital Signs Vital signs: Vital Signs Temp 97.6 F 12/09/21 07:26 Pulse 67 12/09/21 07:26 Resp 12 12/09/21 07:26 BP 121/76 12/09/21 07:26 Pulse Ox 98 12/09/21 07:26 Intake & Output 12/08/21 12/09/21 12/09/21 18:59 06:59 18:59 Intake Total 0 Balance 0 Weight 147.418 kg Intake: Oral 0 Other: Voiding Method Toilet Toilet # Voids 2 - Labs CBC & Chem 7: 12/09/21 06:16 12/09/21 06:16 Labs: Abnormal Lab Results - Last 24 Hours (Table) 12/08/21 12/08/21 12/08/21 Range/Units 11:35 11:35 17:26 RBC 3.71 L (4.30-5.90) m/uL Hgb 11.4 L (13.0-17.5) gm/dL Hct 35.2 L (39.0-53.0) % RDW 15.7 H (11.5-15.5) % Neutrophils # 7.9 H (1.3-7.7) k/uL Sodium 131 L (137-145) mmol/L Chloride 92 L (98-107) mmol/L BUN 27 H (9-20) mg/dL Creatinine 4.09 H (0.66-1.25) mg/dL Glucose 176 H (74-99) mg/dL POC Glucose (mg/dL) 355 H (75-99) mg/dL 12/08/21 12/08/21 12/08/21 Range/Units 20:43 22:52 23:32 RBC (4.30-5.90) m/uL Hgb (13.0-17.5) gm/dL Hct (39.0-53.0) % RDW (11.5-15.5) % Neutrophils # (1.3-7.7) k/uL Sodium (137-145) mmol/L Chloride (98-107) mmol/L BUN (9-20) mg/dL Creatinine (0.66-1.25) mg/dL Glucose (74-99) mg/dL POC Glucose (mg/dL) 488 H 470 H 349 H (75-99) mg/dL 12/09/21 12/09/21 Range/Units 02:07 07:37 RBC (4.30-5.90) m/uL Hgb (13.0-17.5) gm/dL Hct (39.0-53.0) % RDW (11.5-15.5) % Neutrophils # (1.3-7.7) k/uL Sodium (137-145) mmol/L Chloride (98-107) mmol/L BUN (9-20) mg/dL Creatinine (0.66-1.25) mg/dL Glucose (74-99) mg/dL POC Glucose (mg/dL) 177 H 137 H (75-99) mg/dL
[2021-12-09 12:25] LABS: Glucose,Whole Blood 313 mg/dL (75-99)
--- NOTE | 2021-12-09 13:50 | P.NPCON ---
History of Present Illness - Reason for Consult end stage renal disease - History of Present Illness Patient is a 61-year-old male with end-stage renal disease, on hemodialysis on a Tuesday schedule. Patient is admitted to the hospital with complaints of chest pain while on dialysis. Chest pain did not improve with nitro. Blood pressure was not low. Troponin is negative. Patient was noted to have cellulitis of his fingers on the right hand. He is currently maintained on antibiotics and being followed by infectious disease. Patient has had previous amputations of his fingers on the left hand. He has an AV fistula in his left upper extremity. Patient has followed with vascular surgery and he did not want an access in his right arm. It has been decided to continue with the left arm AV fistula for now. No new lesions on his left hand patient except for a small burn which is improved. No fever chills nausea vomiting or abdominal pain Review of Systems As per HPI. Other systems negative Past Medical History Past Medical History: Coronary Artery Disease (CAD), Cancer, Heart Failure, CVA/TIA, Diabetes Mellitus, Eye Disorder, Hypertension, Myocardial Infarction ([place]), Renal Disease, Sleep Apnea/CPAP/BIPAP, Thyroid Disorder Additional Past Medical History / Comment(s): unhealing sore left index finger, neuropathy bilateral lower extremity/feet, bilateral eye diabetic retinop athy/poor vision/multiple injections, ESRD with hemodialysis T//SAT from 6:15 to 11:00, anemia, "mini strokes" x2, AVANI with CPap use, occasional low back pain/disc disease, gout, hypothyroid Last Myocardial Infarction Date:: 10/20/20 History of Any Multi-Drug Resistant Organisms: None Reported Past Surgical History: Adenoidectomy, Bariatric Surgery, Cholecystectomy, Heart Catheterization, Heart Catheterization With Stent, Orthopedic Surgery, Tonsillectomy Additional Past Surgical History / Comment(s): 10/22/20 PCI with stents x2, lap banding, FX of right ankle repair pins / plate, fistual lt arm jul 2018, lt shoulder sx (d/t separation), colonoscopies, bilateral cataract removals/lens implants. LIF surgery 08/11/21 Past Anesthesia/Blood Transfusion Reactions: Motion Sickness Additional Past Anesthesia/Blood Transfusion Reaction / Comment(s): CLAUSTERPHOBIA Date of Last Stent Placement:: 10/22/20 Past Psychological History: Anxiety Smoking Status: Former smoker Past Alcohol Use History: None Reported Past Drug Use History: None Reported - Past Family History Mother History Unknown: Yes Family Medical History: Coronary Artery Disease (CAD), Myocardial Infarction ([place]) Additional Family Medical History / Comment(s): Mother at age 58 from multiple sclerosis Father Family Medical History: CVA/TIA, Myocardial Infarction ([place]) Additional Family Medical History / Comment(s): Father had history of [place] and CVA followed by a second [place] and CVA and at age 65. Brother(s) Additional Family Medical History / Comment(s): . Medications and Allergies Home Medications Medication Instructions Recorded Confirmed Type Atorvastatin [Lipitor] 40 mg PO HS 08/07/14 12/08/21 History Levothyroxine Sodium 100 mcg PO HS 07/06/17 12/08/21 History Torsemide [Demadex] 40 mg PO DAILY 09/10/19 12/08/21 History Allopurinol [Zyloprim] 300 mg PO HS 10/20/20 12/08/21 History Bryanna-Olimpia 1 tab PO DAILY 10/20/20 12/08/21 History HYDROcodone/APAP 10-325MG [[place] 1 tab PO QID PRN 11/24/20 12/08/21 History 10-325] Insulin Regular, Human [Novolin R 30 unit SQ ACHS PRN 11/24/20 12/08/21 History Flexpen] Insulin Detemir [Levemir Flextouch 60 units SQ HS 02/05/21 12/08/21 History Pen] Calcium Acetate [PhosLo] 667 mg PO DIRECTED 03/11/21 12/08/21 History LORazepam [Ativan] 0.5 mg PO BID PRN 03/11/21 12/08/21 History Nitroglycerin Sl Tabs [Nitrostat] 0.4 mg SL Q5M PRN 03/11/21 12/08/21 History Acetaminophen [Tylenol] 1,000 mg PO BID 09/06/21 12/08/21 History Calcium Carb-Mag Carb-Folic 1 tab PO DIRECTED 09/06/21 12/08/21 History [Magnebind 400] Lactulose 30 gm PO DAILY 09/06/21 12/08/21 History carvediloL [Coreg] 3.125 mg PO QAM 12/08/21 12/08/21 History carvediloL [Coreg] 6.25 mg PO HS 12/08/21 12/08/21 History Allergies Allergy/AdvReac Type Severity Reaction Status Date / Time No Known Allergies Allergy Verified 12/08/21 13:13 Physical Exam Vitals: Vital Signs Temp Pulse Pulse Resp BP BP Pulse Ox 12/09/21 07:26 97.6 F 67 12 121/76 98 12/09/21 02:33 98.4 F 82 17 110/65 98 12/08/21 19:36 82 20 12/08/21 19:31 98.2 F 79 17 107/58 97 12/08/21 17:56 82 20 12/08/21 17:37 98.1 F 82 20 146/73 97 12/08/21 16:52 75 18 130/72 96 Intake and Output 12/08/21 12/09/21 12/09/21 22:59 06:59 14:59 Intake Total 0 Balance 0 Intake: Oral 0 Other: Voiding Method Toilet Toilet Toilet # Voids 0 2 Patient is awake, comfortable, not in any acute distress Examination of the heart S1 and S2 Examination lungs bilateral breath sounds are heard Abdomen is soft nontender 3 digits on the right hand are currently dressed Amputations noted on the left and. [employer] exam grossly intact No edema noted in the lower extremities Results - Lab Results Most recent lab results Calcium 9.3 mg/dL (8.7-10.3) 12/09/21 06:16 Magnesium 2.0 mg/dL (1.6-2.3) 12/08/21 11:35 12/09/21 06:16 12/09/21 06:16 Assessment and Plan Assessment: 1. End-stage renal disease on hemodialysis on a Tuesday schedule 2. Peripheral vascular disease with ischemic amputation of digits on the left hand. No new lesions noted 3. Cellulitis of 3 digits on the right hand, maintained on antibiotics 4. Chest pain, atypical, troponins negative 5. Coronary artery disease with history of coronary stents last year 6. CK D mineral bone disorder Plan: Hemodialysis in a.m. Continue with phosphate binders Continue antibiotics as per ID
--- NOTE | 2021-12-09 15:29 | MR ---
MRI right hand without contrast HISTORY: Osteomyelitis, abnormal plain film Multiplanar multisequence imaging obtained through the right hand. Correlation with plain film 12/08/2021 There is motion on exam, the digits are flexed which limits evaluation Abnormal signal present within the middle and distal phalanx of the fifth digit of the left hand, fir st digit distal phalanx, possibly fourth digit distal phalanx, intermediate signal on T1, increased o n STIR images. There is soft tissue swelling present at the first and fifth digits. Flexor and extens or tendons are thought to be intact. IMPRESSION: Findings are suspicious for osteomyelitis within the digits as described. There are limit ations to the exam.
[2021-12-09 17:23] LABS: Glucose,Whole Blood 226 mg/dL (75-99)
[2021-12-09] MEDS ORDERED: CALCIUM ACETATE 667 MG TAB PO SCH (17:30)
[2021-12-09 21:22] LABS: Glucose,Whole Blood 196 mg/dL (75-99)
[2021-12-09] MEDS: INSULIN DETEMIR (LEVEMIR) 100 UNIT/ML SYR SQ SCH (21:26)
[2021-12-09] MEDS: carvediloL 6.25 MG TAB PO SCH (21:26)
[2021-12-09] MEDS: allopurinoL 300 MG TAB PO SCH (21:26)
[2021-12-09] MEDS: LEVOTHYROXINE 100 MCG TAB PO SCH (21:26)
[2021-12-09] MEDS: ATORVASTATIN 40 MG TAB PO SCH (21:26)
--- NOTE | 2021-12-09 23:57 | P.PN ---
Subjective Progress Note Date: 12/09/21 Principal diagnosis: Right hand cellulitis Patient is a 61-year-old male with a past medical history significant for end-stage disease on hemodialysis through left arm AV fistula patient did have a multiple partial and complete amputation to the left hand because of' ne crosis, presented to hospital with chest pain also noticed to have ulceration and possible cellulitis to the right third finger. On today's evaluation that is 12/09/2021, the patient denies having any fever or chills, the patient's chest pain seemed to have resolved denies any nausea no vomiting no abdominal pain denies pain to his right hand finger and no further drainage Objective - Vital Signs Vital signs: Vital Signs Temp 97.6 F 12/09/21 07:26 Pulse 67 12/09/21 07:26 Resp 12 12/09/21 07:26 BP 121/76 12/09/21 07:26 Pulse Ox 98 12/09/21 07:26 Intake & Output 12/08/21 12/09/21 12/09/21 18:59 06:59 18:59 Intake Total 0 Balance 0 Weight 147.418 kg Intake: Oral 0 Other: Voiding Method Toilet Toilet Toilet # Voids 2 - Exam GENERAL DESCRIPTION: Middle-age male lying in bed in no distress RESPIRATORY SYSTEM: Unlabored breathing , decreased breath sounds at bases HEART: S1 S2 regular rate and rhythm , ABDOMEN: Soft , no tenderness EXTREMITIES: Right fifth third and first finger wounds are currently dressed no drainage on the dressing - Labs CBC & Chem 7: 12/09/21 06:16 12/09/21 06:16 Labs: Abnormal Lab Results - Last 24 Hours (Table) 12/08/21 12/08/21 12/08/21 Range/Units 11:35 11:35 17:26 RBC 3.71 L (4.30-5.90) m/uL Hgb 11.4 L (13.0-17.5) gm/dL Hct 35.2 L (39.0-53.0) % MCHC (32.0-37.0) g/dL RDW 15.7 H (11.5-15.5) % Plt Count (140-440) X 10*3/uL Immature Gran # (0.00-0.04) X 10*3/uL Neutrophils # 7.9 H (1.3-7.7) k/uL Sodium 131 L (137-145) mmol/L Chloride 92 L (98-107) mmol/L BUN 27 H (9-20) mg/dL Creatinine 4.09 H (0.66-1.25) mg/dL Est GFR (CKD-EPI)AfAm (60.0-200.0) Est GFR (CKD-EPI)NonAf (60.0-200.0) BUN/Creatinine Ratio (12.00-20.00) Ratio Glucose 176 H (74-99) mg/dL POC Glucose (mg/dL) 355 H (75-99) mg/dL 12/08/21 12/08/21 12/08/21 Range/Units 20:43 22:52 23:32 RBC (4.30-5.90) m/uL Hgb (13.0-17.5) gm/dL Hct (39.0-53.0) % MCHC (32.0-37.0) g/dL RDW (11.5-15.5) % Plt Count (140-440) X 10*3/uL Immature Gran # (0.00-0.04) X 10*3/uL Neutrophils # (1.3-7.7) k/uL Sodium (137-145) mmol/L Chloride (98-107) mmol/L BUN (9-20) mg/dL Creatinine (0.66-1.25) mg/dL Est GFR (CKD-EPI)AfAm (60.0-200.0) Est GFR (CKD-EPI)NonAf (60.0-200.0) BUN/Creatinine Ratio (12.00-20.00) Ratio Glucose (74-99) mg/dL POC Glucose (mg/dL) 488 H 470 H 349 H (75-99) mg/dL 12/09/21 12/09/21 12/09/21 Range/Units 02:07 06:16 06:16 RBC 3.49 L (4.30-5.90) m/uL Hgb 10.5 L (13.0-17.5) gm/dL Hct 33.2 L (39.0-53.0) % MCHC 31.6 L (32.0-37.0) g/dL RDW 15.3 H (11.5-15.5) % Plt Count 139 L (140-440) X 10*3/uL Immature Gran # 0.05 H (0.00-0.04) X 10*3/uL Neutrophils # (1.3-7.7) k/uL Sodium 133 L (137-145) mmol/L Chloride 91 L (98-107) mmol/L BUN 42.2 H (9-20) mg/dL Creatinine 6.2 H (0.66-1.25) mg/dL Est GFR (CKD-EPI)AfAm 10.4 L (60.0-200.0) Est GFR (CKD-EPI)NonAf 9.0 L (60.0-200.0) BUN/Creatinine Ratio 6.85 L (12.00-20.00) Ratio Glucose 114 H (74-99) mg/dL POC Glucose (mg/dL) 177 H (75-99) mg/dL 12/09/21 Range/Units 07:37 RBC (4.30-5.90) m/uL Hgb (13.0-17.5) gm/dL Hct (39.0-53.0) % MCHC (32.0-37.0) g/dL RDW (11.5-15.5) % Plt Count (140-440) X 10*3/uL Immature Gran # (0.00-0.04) X 10*3/uL Neutrophils # (1.3-7.7) k/uL Sodium (137-145) mmol/L Chloride (98-107) mmol/L BUN (9-20) mg/dL Creatinine (0.66-1.25) mg/dL Est GFR (CKD-EPI)AfAm (60.0-200.0) Est GFR (CKD-EPI)NonAf (60.0-200.0) BUN/Creatinine Ratio (12.00-20.00) Ratio Glucose (74-99) mg/dL POC Glucose (mg/dL) 137 H (75-99) mg/dL Assessment and Plan (1) Cellulitis Current Visit: Yes Status: Acute Code(s): L03.90 - CELLULITIS, UNSPECIFIED SNOMED Code(s): 380919518 Plan: 1patient with a 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 2patient to continue with vancomycin pharmacy to dose target trough of 15 3-Aquacel silver dressing to the open area of the finger change every 48 hour Time with Patient: Less than 30
[2021-12-10] MEDS: HEPARIN SODIUM,PORCINE/PF 5,000 UNIT/0.5 ML SYRINGE SQ SCH ×4 (00:44→21:41)
[2021-12-10] MEDS: HYDROcodone/APAP 10-325MG 1 EACH TAB PO PRN ×3 (04:42→19:53)
[2021-12-10] MEDS: IBUPROFEN 400 MG TAB PO PRN ×3 (04:43→21:42)
[2021-12-10 07:22] LABS: Glucose,Whole Blood 272 mg/dL (75-99)
[2021-12-10] MEDS ORDERED: CALCIUM CARB-MAG CARB-FOLIC 1 EACH TAB PO SCH ×2 (07:30→12:30)
[2021-12-10] MEDS ORDERED: INSULIN REGULAR 100 UNIT/ML VIAL (IM/SQ) SQ ONE (08:15)
[2021-12-10] MEDS: LACTULOSE 20 GM/30 ML CUP PO SCH (08:37)
[2021-12-10] MEDS: FOLIC ACID-VIT B COMPLEX-VIT C 1 CAP PO SCH (08:38)
[2021-12-10] MEDS: ACETAMINOPHEN TAB 500 MG TAB PO SCH ×2 (08:38→19:29)
[2021-12-10] MEDS: carvediloL 3.125 MG TAB PO SCH (08:39)
[2021-12-10] MEDS: INSULIN ASPART (NovoLOG) 100 UNIT/ML VIAL SQ SCH ×3 (08:39→19:45)
[2021-12-10] MEDS: ASPIRIN 81 MG PO SCH (08:39)
[2021-12-10] MEDS: TORSEMIDE 20 MG TAB PO SCH (08:39)
--- NOTE | 2021-12-10 09:36 | P.PN ---
Subjective Progress Note Date: 12/10/21 HISTORY OF PRESENT ILLNESS: 61 year-old morbidly obese male one of Dr. Oshea patient with past medical history of end-stage renal disease on hemodialysis 3 times a week, history of type 2 diabetes on insulin, ischemic heart disease post to angioplasty and stent placement from last year, history of amputation of 3 and half finger of left hand secondary to chronic infection and osteomyelitis happen this last year with Dr. Christina orthopedic. 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 Patient was in hemodialysis today have the way to developed to have midsternal chest pain and angina lasted over an hour respond to nitroglycerin quite bed. Hemodialysis end up calling 911 patient was transported to the emergency department at [facility] by EMS he developed to have another episode of chest pain as he was the emergency department and it subtle down on its own. His testing in the emergency room including troponin was normal, his chemistry showed creatinine of 4.09 normal CBC with mild anemia only. Blood sugar was quite but elevated afterward patient has not taking his insulin today which will be started soon. Patient be admitted for anginal chest pain will be seen cardiology whether he can benefit from need any intervention is to be determined in the next 24 hours. Sadly patient developed to have infection of the right hand this time involving the finger is the first third and fifth with severe ulcerated vasculitis with infection involving the soft tissue and close to the joint. Patient was started on vancomycin we'll consult infectious disease and wound clinic at this point the picture looked like somebody had infection with vasculitis altogether was treated with antibiotic, culture, and if patient eventually need biopsy to exclude the possibility of vasculitis might be highly recommended. 12/09: Patient has been seen by cardiology and echocardiogram ordered and once this is reviewed, patient most likely will be cleared for discharge by cardiology. Regarding cellulitis of both fingertips, consult added for Dr. Christina regarding possible vasculitis and consult added for nephrology for end-stage renal disease. Patient has been afebrile, heart rate 67, blood pressure 121/76, pulse ox 90% on room air. Repeat blood work reveals hemoglobin 10.5, platelets 139. Sodium 133, potassium 4.6, chloride 91, CO2 25. BUN 42 and creatinine 6.2. Currently blood glucose running quite high yesterday at the 300s and 400s, this morning 137. Patient has been seen by Dr. Madera for cellulitis the right hand and finger most significant at the fifth. He has recommended Aquacel Ag dressings every 48 hours, vancomycin. Orthopedics has ordered an MRI of the r ight hand. 12/10: Patient has been seen by nephrology with plan to maintain hemodialysis on Tuesday schedule. Patient has been afebrile, heart rate in the 50s to 70s, blood pressure 131/57, pulse ox 98% on room air. Patient is utilizing CPAP at nighttime. CBG is running between 196 and 272. Scheduled Humulin R increased to 32 units. Reviewed results of MRI with the patient. Waiting for information from orthopedics and infectious disease to determine plan. MRI of the right hand revealed suspicious for osteomyelitis within the digits. Echocardiogram reveals EF of 55-60% with moderate concentric left ventricular hypertrophy, mild tricuspid regurgitation, mild mitral calcification. REVIEW OF SYSTEMS: Constitutional: No fever, no chills, no night sweats. No weight change. No weakness, fatigue or lethargy. No daytime sleepiness. Morbidly obese does not look in any respiratory distress EENT: No headache. No blurred vision or double vision, no loss of vision. No loss of Hearing, no ringing in the ears, no dizziness. No nasal drainage or congestion. No epistaxis. No sore throat. Lungs: Significant shortness of breath with mild cough and wheezes. Cardiovascular: Positive chest pain, positive PND orthopnea palpitation with worsening fluid retention, worsening symptom with exertion and worsening exertional shortness of breath.. Abdominal: No abdominal pain. No nausea, vomiting. No diarrhea. No constipation. No bloody or tarry stools.. No loss of appetite. Genitourinary: No dysuria, increased frequency, urgency. No urinary retention. End-stage renal disease on hemodialysis Musculoskeletal: No myalgias. No muscle weakness, no gait dysfunction, no frequent falls. Positive lower back pain with slight arthritic pain and mild edema.. Integumentary: Reported wounds and cellulitis of the right fingers. No rash or pruritus. No unusual bruising. Significant change in vasculitis with infection of the right hand with amputation of 3 and half finger of the left side. Neurologic: No aphasia. No facial droop. No change in mentation. No head injury. No headache. No paralysis. No paresthesia. Psychiatric: No depression. No anxiety. No mood swings. Endocrine: No abnormal blood sugars. No weight change. No excessive sweating or thirst. No cold intolerance. PHYSICAL EXAMINATION Gen: This is a morbidly obese laying in bed with his head slightly but up no acute respiratory distress. HEENT: Head is atraumatic, normocephalic. Pupils equal, round. Sclerae is anicteric. NECK: Supple. No JVD. No lymphadenopathy. No thyromegaly. LUNGS: Decreased breath sounds especially in the left side with fine rhonchi in the right base with mild crackles. HEART: Regular rhythm and rate S1-S2 positive S3 positive JVD.. ABDOMEN: Soft. Positive Bowel sounds . No masses. No tenderness. EXTREMITIES: 1+ edema with slight discoloration from the knee down, the upper extremity patient had amputation of first second third than half the fifth finger of the left side but had an infection involving the first third and fifth finger on the right side with complete loss of nail of his entire hand, patient also had vascular change in the right side more consistent with vasculitis beside infection. NEUROLOGICAL: Patient is awake, alert and oriented x3. Cranial nerves 2 through 12 are grossly intact. ASSESSMENT AND PLAN 1 atypical chest pain: With significant history of coronary artery disease post angioplasty and stent placement with known blockage. Echocardiogram as above. Acute coronary syndrome ruled out. 2 severe CAD: Post angioplasty and stent placement done last year he still seeing cardiology regular basis has been on secondary prevention doing well. 3 severe vasculitis and fingertip infection of the fingers of the right hand, suspicious for osteomyelitis, Continued on vancomycin, consult with infectious disease, consult with orthopedics appreciated, MRI of the right hand above. 4 end-stage renal disease on hemodialysis 3 times a week consult nephrology, continue hemodialysis on Tuesday schedule. 5 type 2 diabetes on insulin, uncontrolled with hyperglycemia. Continue patient on home dose of long-acting Levemir 60 units at bedtime, Humulin R increased at 32 units before meals and at bedtime, NovoLog scale 3 times daily. 7 hypothyroidism: Continue patient on levothyroxine 50 g daily. 8 anasarca and chronic edema combination of kidney failure along with diastolic heart failure patient has been on torsemide 40 mg daily continue medication continue dialysis to remove more fluid. 9 hyperlipidemia: Continue patient on atorvastatin 40 mg daily. 10 known cardiovascular heart disease: Post angioplasty and stent placement back in October 2020. 11 history of gout: Has been on Zyloprim 300 mg every other day. 12 DVT prophylaxis: Early mobilization along with heparin subcutaneous. 13 GI prophylaxis: Patient will be on Protonix 40 mg daily. 12 CODE STATUS: Full code DISCHARGE PLAN Home Impression and plan of care have been directed as dictated by the signing physician. Laine Jones nurse practitioner acting as scribe for signing physician. Objective - Vital Signs Vital signs: Vital Signs Temp 97.8 F 12/10/21 02:45 Pulse 52 L 12/10/21 02:45 Resp 17 12/10/21 02:45 BP 131/57 12/10/21 02:45 Pulse Ox 100 12/10/21 02:45 Intake & Output 12/09/21 12/10/21 12/10/21 18:59 06:59 18:59 Intake Total 1744 800 Balance 1744 800 Intake: Oral 1744 800 Other: Voiding Method Toilet Toilet # Voids 1 1 - Labs CBC & Chem 7: 12/09/21 06:16 12/09/21 06:16 Labs: Abnormal Lab Results - Last 24 Hours (Table) 12/09/21 12/09/21 12/09/21 Range/Units 06:16 06:16 07:37 RBC 3.49 L (4.40-5.60) X 10*6/uL Hgb 10.5 L (13.0-17.0) g/dL Hct 33.2 L (39.6-50.0) % MCHC 31.6 L (32.0-37.0) g/dL RDW 15.3 H (11.5-14.5) % Plt Count 139 L (140-440) X 10*3/uL Immature Gran # 0.05 H (0.00-0.04) X 10*3/uL Sodium 133 L (135-145) mmol/L Chloride 91 L (96-109) mmol/L BUN 42.2 H (9.0-27.0) mg/dL Creatinine 6.2 H (0.6-1.5) mg/dL Est GFR (CKD-EPI)AfAm 10.4 L (60.0-200.0) Est GFR (CKD-EPI)NonAf 9.0 L (60.0-200.0) BUN/Creatinine Ratio 6.85 L (12.00-20.00) Ratio Glucose 114 H (70-110) mg/dL POC Glucose (mg/dL) 137 H (75-99) mg/dL 12/09/21 12/09/21 12/09/21 Range/Units 12:24 17:21 21:19 RBC (4.40-5.60) X 10*6/uL Hgb (13.0-17.0) g/dL Hct (39.6-50.0) % MCHC (32.0-37.0) g/dL RDW (11.5-14.5) % Plt Count (140-440) X 10*3/uL Immature Gran # (0.00-0.04) X 10*3/uL Sodium (135-145) mmol/L Chloride (96-109) mmol/L BUN (9.0-27.0) mg/dL Creatinine (0.6-1.5) mg/dL Est GFR (CKD-EPI)AfAm (60.0-200.0) Est GFR (CKD-EPI)NonAf (60.0-200.0) BUN/Creatinine Ratio (12.00-20.00) Ratio Glucose (70-110) mg/dL POC Glucose (mg/dL) 313 H 226 H 196 H (75-99) mg/dL 12/10/21 Range/Units 07:20 RBC (4.40-5.60) X 10*6/uL Hgb (13.0-17.0) g/dL Hct (39.6-50.0) % MCHC (32.0-37.0) g/dL RDW (11.5-14.5) % Plt Count (140-440) X 10*3/uL Immature Gran # (0.00-0.04) X 10*3/uL Sodium (135-145) mmol/L Chloride (96-109) mmol/L BUN (9.0-27.0) mg/dL Creatinine (0.6-1.5) mg/dL Est GFR (CKD-EPI)AfAm (60.0-200.0) Est GFR (CKD-EPI)NonAf (60.0-200.0) BUN/Creatinine Ratio (12.00-20.00) Ratio Glucose (70-110) mg/dL POC Glucose (mg/dL) 272 H (75-99) mg/dL Microbiology - Last 24 Hours (Table) 12/08/21 11:35 Blood Culture - Preliminary Blood No Growth after 24 hours 12/08/21 11:35 Blood Culture - Preliminary Blood No Growth after 24 hours
--- NOTE | 2021-12-10 10:09 | P.PN ---
Subjective Progress Note Date: 12/10/21 This is a 61-year-old male who is well known to our practice with history of multiple partially dictations of the fingers of left hand. He began having some redness and swelling to the right little finger, middle finger and thumb not too long ago. He developed an ulcer to the little finger which has now opened up. He states that he lost the nail about a week ago. He is admitted to the hospital for workup regarding his chest pain. We're consulted for follow-up evaluation of his right hand. 12/10/21: Patient is seen and examined bedside. He has no new complaints today. Fingers on the right hand are dressed in band-aids at this time. Patient denies fevers, chills. He is afebrile. Objective - Vital Signs Vital signs: Vital Signs Temp 97.7 F 12/10/21 08:00 Pulse 78 12/10/21 08:00 Resp 18 12/10/21 08:00 BP 145/75 12/10/21 08:00 Pulse Ox 99 12/10/21 08:00 Intake & Output 12/09/21 12/10/21 12/10/21 18:59 06:59 18:59 Intake Total 1744 800 562 Balance 1744 800 562 Intake: Oral 1744 800 562 Other: Voiding Method Toilet Toilet # Voids 1 1 - Exam On examination, patient is sitting up in bed in no apparent distress. He is alert and oriented 3. A focused examination of the right hand is conducted. On inspection of the little finger, there is an ulceration at the dorsal aspect with absence of the fingernail. There is some purulence noted. There is skin ulceration to the middle finger which appears superficial. There is ulceration to the thumb. Neurovascular status is grossly intact. No pain with palpation or range of motion of the wrist. - Labs CBC & Chem 7: 12/09/21 06:16 12/09/21 06:16 Labs: Abnormal Lab Results - Last 24 Hours (Table) 12/09/21 12/09/21 12/09/21 Range/Units 12:24 17:21 21:19 POC Glucose (mg/dL) 313 H 226 H 196 H (75-99) mg/dL 12/10/21 Range/Units 07:20 POC Glucose (mg/dL) 272 H (75-99) mg/dL Microbiology - Last 24 Hours (Table) 12/08/21 11:35 Blood Culture - Preliminary Blood No Growth after 24 hours 12/08/21 11:35 Blood Culture - Preliminary Blood No Growth after 24 hours - Imaging and Cardiology Right hand MRI 12/09/21: Findings suspicious for osteomyelitis of the middle phalanx and distal phalanx of the small finger, distal phalanx of the thumb. Assessment and Plan (1) Cellulitis Current Visit: Yes Status: Acute Code(s): L03.90 - CELLULITIS, UNSPECIFIED SNOMED Code(s): 172855276 (2) Diabetes with skin ulcer Current Visit: No Status: Acute Code(s): E11.622 - TYPE 2 DIABETES MELLITUS WITH OTHER SKIN ULCER; L98.499 - NON-PRESSURE CHRONIC ULCER OF SKIN OF SITES W UNSP SEVERITY SNOMED Code(s): 17709202 Plan: - The patient was reviewed with Dr. Christina. We have no plans for acute surgical intervention during this hospital stay. Patient may be discharged from an orthopedic standpoint, although he will require close follow-up in the office. Recommend follow-up with Dr. Christina on Tuesday12/14/21. - Recommend local wound care to the right fingers with daily wet to dry dressings. - Continue IV antibiotics under the discretion of infectious disease. - We will follow patient as he remains inpatient and make recommendations as needed.
[2021-12-10 12:19] LABS: Glucose,Whole Blood 286 mg/dL (75-99)
[2021-12-10] MEDS: INSULIN REGULAR 100 UNIT/ML VIAL (IV) SQ SCH ×4 (12:33→21:40)
--- NOTE | 2021-12-10 13:17 | P.PN ---
Subjective Patient is seen for follow-up for end-stage renal disease. He scheduled for hemodialysis today. No significant complaints today. Objective - Vital Signs Vital signs: Vital Signs Temp 97.7 F 12/10/21 08:00 Pulse 78 12/10/21 08:00 Resp 18 12/10/21 08:00 BP 145/75 12/10/21 08:00 Pulse Ox 99 12/10/21 08:00 Intake & Output 12/09/21 12/10/21 12/10/21 18:59 06:59 18:59 Intake Total 1744 800 562 Balance 1744 800 562 Intake: Oral 1744 800 562 Other: Voiding Method Toilet Toilet # Voids 1 1 - Exam Patient is awake, comfortable, alert oriented 3 Examination of the heart S1 and S2 Examination lungs bilateral breath sounds are heard Abdomen is soft be soft nontender Exertion lower extremity shows no evidence of edema Right hand exam shows redness and ulceration on the tip of the fifth digit with exposed bone. Right middle finger has healed quite well. Right thumb is currently dressed PER DIEM NURSE exam grossly intact - Labs CBC & Chem 7: 12/09/21 06:16 12/09/21 06:16 Labs: Abnormal Lab Results - Last 24 Hours (Table) 12/09/21 12/09/21 12/10/21 Range/Units 17:21 21:19 07:20 POC Glucose (mg/dL) 226 H 196 H 272 H (75-99) mg/dL 12/10/21 Range/Units 12:17 POC Glucose (mg/dL) 286 H (75-99) mg/dL Microbiology - Last 24 Hours (Table) 12/08/21 11:35 Blood Culture - Preliminary Blood No Growth after 24 hours 12/08/21 11:35 Blood Culture - Preliminary Blood No Growth after 24 hours Assessment and Plan Assessment: 1. End-stage renal disease on hemodialysis on a Tuesday schedule 2. Peripheral vascular disease with ischemic amputation of digits on the left hand. No new lesions noted 3. Cellulitis of 3 digits on the right hand, maintained on antibiotics. Plans for partial amputation of right fifth digit 4. Chest pain, atypical, troponins negative 5. Coronary artery disease with history of coronary stents last year 6. CK D mineral bone disorder Plan: Hemodialysis today. Continue with phosphate binders Continue antibiotics as per ID
[2021-12-10 17:10] LABS: Glucose,Whole Blood 142 mg/dL (75-99)
[2021-12-10] MEDS: CALCIUM CARB-MAG CARB-FOLIC 1 EACH TAB PO SCH (19:52)
[2021-12-10] MEDS: LEVOTHYROXINE 100 MCG TAB PO SCH (19:52)
[2021-12-10] MEDS: ATORVASTATIN 40 MG TAB PO SCH (19:52)
[2021-12-10] MEDS: carvediloL 6.25 MG TAB PO SCH ×2 (19:53→19:57)
[2021-12-10] MEDS ORDERED: VANCOMYCIN 2,000 MG in SODIUM CHLORIDE 0.9% 500 ML 500 ML IVPB ONE (21:00)
[2021-12-10 21:17] LABS: Glucose,Whole Blood 352 mg/dL (75-99)
[2021-12-10] MEDS: INSULIN DETEMIR (LEVEMIR) 100 UNIT/ML SYR SQ SCH (21:40)
[2021-12-10] MEDS: allopurinoL 300 MG TAB PO SCH (21:41)
--- NOTE | 2021-12-10 22:42 | P.PN ---
Subjective Progress Note Date: 12/10/21 Principal diagnosis: Right hand cellulitis Patient is a 61-year-old male with a past medical history significant for end-stage disease on hemodialysis through left arm AV fistula patient did have a multiple partial and complete amputation to the left hand because of' ne crosis, presented to hospital with chest pain also noticed to have ulceration and possible cellulitis to the right third finger. On today's evaluation that is 12/10/2021, the patient remains to be afebrile, the patient's chest pain seemed to have resolved, the patient denies any nausea no vomiting no abdominal pain denies pain to his right hand finger and no further drainage, the patient denies having any diarrhea Objective - Vital Signs Vital signs: Vital Signs Temp 97.7 F 12/10/21 08:00 Pulse 78 12/10/21 08:00 Resp 18 12/10/21 08:00 BP 145/75 12/10/21 08:00 Pulse Ox 99 12/10/21 08:00 Intake & Output 12/09/21 12/10/21 12/10/21 18:59 06:59 18:59 Intake Total 1744 800 562 Balance 1744 800 562 Intake: Oral 1744 800 562 Other: Voiding Method Toilet Toilet # Voids 1 1 - Exam GENERAL DESCRIPTION: Middle-age male lying in bed in no distress RESPIRATORY SYSTEM: Unlabored breathing , decreased breath sounds at bases HEART: S1 S2 regular rate and rhythm , ABDOMEN: Soft , no tenderness EXTREMITIES: Right fifth finger did have a wound with some purulence which was cultured, patient right middle finger and thumb wound is superficial with no drainage - Labs CBC & Chem 7: 12/09/21 06:16 12/09/21 06:16 Labs: Abnormal Lab Results - Last 24 Hours (Table) 12/09/21 12/09/21 12/10/21 Range/Units 17:21 21:19 07:20 POC Glucose (mg/dL) 226 H 196 H 272 H (75-99) mg/dL 12/10/21 Range/Units 12:17 POC Glucose (mg/dL) 286 H (75-99) mg/dL Microbiology - Last 24 Hours (Table) 12/08/21 11:35 Blood Culture - Preliminary Blood No Growth after 24 hours 12/08/21 11:35 Blood Culture - Preliminary Blood No Growth after 24 hours Assessment and Plan (1) Cellulitis Current Visit: Yes Status: Acute Code(s): L03.90 - CELLULITIS, UNSPECIFIED SNOMED Code(s): 602498707 Plan: 1patient with a 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 Patient did have an abnormal MRI suspicious for Osteomyelitis, local culture has been obtained to guide his discharge antibiotics therapy 2patient to continue with vancomycin pharmacy to dose target trough of 15 3-Aquacel silver dressing to the open area of the finger change every 48 hour Time with Patient: Less than 30
[2021-12-11] MEDS: HYDROcodone/APAP 10-325MG 1 EACH TAB PO PRN ×2 (03:33→10:53)
[2021-12-11] MEDS: IBUPROFEN 400 MG TAB PO PRN ×2 (03:34→10:53)
[2021-12-11 07:31] LABS: Glucose,Whole Blood 294 mg/dL (75-99)
[2021-12-11 08:03] VITALS: BP 134/71; PULSE 76; RESP 16; TEMP 98.7
[2021-12-11] MEDS: CALCIUM ACETATE 667 MG TAB PO SCH ×2 (08:06→12:58)
[2021-12-11] MEDS: FOLIC ACID-VIT B COMPLEX-VIT C 1 CAP PO SCH (08:06)
[2021-12-11] MEDS: LACTULOSE 20 GM/30 ML CUP PO SCH (08:06)
[2021-12-11] MEDS: HEPARIN SODIUM,PORCINE/PF 5,000 UNIT/0.5 ML SYRINGE SQ SCH (08:06)
[2021-12-11] MEDS: TORSEMIDE 20 MG TAB PO SCH (08:07)
[2021-12-11] MEDS: ASPIRIN 81 MG PO SCH (08:07)
[2021-12-11] MEDS: ACETAMINOPHEN TAB 500 MG TAB PO SCH (08:07)
[2021-12-11] MEDS: INSULIN ASPART (NovoLOG) 100 UNIT/ML VIAL SQ SCH ×2 (08:07→12:59)
[2021-12-11] MEDS: carvediloL 3.125 MG TAB PO SCH (08:07)
[2021-12-11] MEDS: INSULIN REGULAR 100 UNIT/ML VIAL (IV) SQ SCH (09:25)
--- NOTE | 2021-12-11 09:54 | P.PN ---
Subjective Progress Note Date: 12/11/21 HISTORY OF PRESENT ILLNESS: 61 year-old morbidly obese male one of Dr. Oshea patient with past medical history of end-stage renal disease on hemodialysis 3 times a week, history of type 2 diabetes on insulin, ischemic heart disease post to angioplasty and stent placement from last year, history of amputation of 3 and half finger of left hand secondary to chronic infection and osteomyelitis happen this last year with Dr. Christina orthopedic. 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 Patient was in hemodialysis today have the way to developed to have midsternal chest pain and angina lasted over an hour respond to nitroglycerin quite bed. Hemodialysis end up calling 911 patient was transported to the emergency department at [facility] by EMS he developed to have another episode of chest pain as he was the emergency department and it subtle down on its own. His testing in the emergency room including troponin was normal, his chemistry showed creatinine of 4.09 normal CBC with mild anemia only. Blood sugar was quite but elevated afterward patient has not taking his insulin today which will be started soon. Patient be admitted for anginal chest pain will be seen cardiology whether he can benefit from need any intervention is to be determined in the next 24 hours. Sadly patient developed to have infection of the right hand this time involving the finger is the first third and fifth with severe ulcerated vasculitis with infection involving the soft tissue and close to the joint. Patient was started on vancomycin we'll consult infectious disease and wound clinic at this point the picture looked like somebody had infection with vasculitis altogether was treated with antibiotic, culture, and if patient eventually need biopsy to exclude the possibility of vasculitis might be highly recommended. 12/09: Patient has been seen by cardiology and echocardiogram ordered and once this is reviewed, patient most likely will be cleared for discharge by cardiology. Regarding cellulitis of both fingertips, consult added for Dr. Christina regarding possible vasculitis and consult added for nephrology for end-stage renal disease. Patient has been afebrile, heart rate 67, blood pressure 121/76, pulse ox 90% on room air. Repeat blood work reveals hemoglobin 10.5, platelets 139. Sodium 133, potassium 4.6, chloride 91, CO2 25. BUN 42 and creatinine 6.2. Currently blood glucose running quite high yesterday at the 300s and 400s, this morning 137. Patient has been seen by Dr. Madera for cellulitis the right hand and finger most significant at the fifth. He has recommended Aquacel Ag dressings every 48 hours, vancomycin. Orthopedics has ordered an MRI of the r ight hand. 12/10: Patient has been seen by nephrology with plan to maintain hemodialysis on Tuesday schedule. Patient has been afebrile, heart rate in the 50s to 70s, blood pressure 131/57, pulse ox 98% on room air. Patient is utilizing CPAP at nighttime. CBG is running between 196 and 272. Scheduled Humulin R increased to 32 units. Reviewed results of MRI with the patient. Waiting for information from orthopedics and infectious disease to determine plan. MRI of the right hand revealed suspicious for osteomyelitis within the digits. Echocardiogram reveals EF of 55-60% with moderate concentric left ventricular hypertrophy, mild tricuspid regurgitation, mild mitral calcification. 12/11: Patient underwent HD yesterday and is continued on his normal schedule of . He has been continued on vancomycin per Dr. Madera. Wound culture is presumptive MRSA, blood culture no growth at 48 hours. Capillary blood glucose running anywhere between 142 and 352. Humulin R change to 34 units before meals and at bedtime. Patient has been cleared from orthopedics and recommends follow-up on Thursday 12/[address] Christina. Patient remains afebrile, heart rate 79, blood pressure 144/74, pulse ox 99% on room air. Dr. Mai is waiting for wound culture to be finalized prior to discharge. REVIEW OF SYSTEMS: Constitutional: No fever, no chills, no night sweats. No weight change. No weakness, fatigue or lethargy. No daytime sleepiness. Morbidly obese does not look in any respiratory distress EENT: No headache. No blurred vision or double vision, no loss of vision. No loss of Hearing, no ringing in the ears, no dizziness. No nasal drainage or congestion. No epistaxis. No sore throat. Lungs: Significant shortness of breath with mild cough and wheezes. Cardiovascular: Positive chest pain, positive PND orthopnea palpitation with worsening fluid retention, worsening symptom with exertion and worsening exertional shortness of breath.. Abdominal: No abdominal pain. No nausea, vomiting. No diarrhea. No constipation. No bloody or tarry stools.. No loss of appetite. Genitourinary: No dysuria, increased frequency, urgency. No urinary retention. End-stage renal disease on hemodialysis Musculoskeletal: No myalgias. No muscle weakness, no gait dysfunction, no frequent falls. Positive lower back pain with slight arthritic pain and mild edema.. Integumentary: Reported wounds and cellulitis of the right fingers. No rash or pruritus. No unusual bruising. Significant change in vasculitis with infection of the right hand with amputation of 3 and half finger of the left side. Neurologic: No aphasia. No facial droop. No change in mentation. No head injury. No headache. No paralysis. No paresthesia. Psychiatric: No depression. No anxiety. Endocrine: No abnormal blood sugars. No weight change. PHYSICAL EXAMINATION Gen: This is a morbidly obese 61-year-old male. He sitting up in bed appears to be comfortable and in no acute respiratory distress. HEENT: Head is atraumatic, normocephalic. Pupils equal, round. Sclerae is anicteric. NECK: Supple. No JVD. No lymphadenopathy. No thyromegaly. LUNGS: Decreased breath sounds e, no accessory muscle usage. HEART: Regular rhythm and rate S1-S2 positive S3 positive JVD.. ABDOMEN: Soft. Positive Bowel sounds . No masses. No tenderness. EXTREMITIES: 1+ edema with slight discoloration from the knee down, the upper extremity patient had amputation of first second third than half the fifth finger of the left side but had an infection involving the first third and fifth finger on the right side with complete loss of nail of his entire hand, patient also had vascular change in the right side more consistent with vasculitis be side infection. NEUROLOGICAL: Patient is awake, alert and oriented x3. Cranial nerves 2 through 12 are grossly intact. ASSESSMENT AND PLAN 1 atypical chest pain: With significant history of coronary artery disease post angioplasty and stent placement with known blockage. Echocardiogram as above. Acute coronary syndrome ruled out. 2 severe CAD: Post angioplasty and stent placement done last year he still seeing cardiology regular basis has been on secondary prevention doing well. 3 severe vasculitis and fingertip infection of the fingers of the right hand, suspicious for osteomyelitis, Continued on vancomycin, consult with infectious disease, consult with orthopedics appreciated, MRI of the right hand above. wound culture is presumptive MRSA. 4 end-stage renal disease on hemodialysis 3 times a week consult nephrology, continue hemodialysis on Tuesday schedule. 5 type 2 diabetes on insulin, uncontrolled with hyperglycemia. Continue patient on home dose of long-acting Levemir 60 units at bedtime, Humulin R increased at 32 units before meals and at bedtime, NovoLog scale 3 times daily. 7 hypothyroidism: Continue patient on levothyroxine 50 g daily. 8 anasarca and chronic edema combination of kidney failure along with diastolic heart failure patient has been on torsemide 40 mg daily continue medication continue dialysis to remove more fluid. 9 hyperlipidemia: Continue patient on atorvastatin 40 mg daily. 10 known cardiovascular heart disease: Post angioplasty and stent placement back in October 2020. 11 history of gout: Has been on Zyloprim 300 mg every other day. 12 DVT prophylaxis: Early mobilization along with heparin subcutaneous. 13 GI prophylaxis: Patient will be on Protonix 40 mg daily. 12 CODE STATUS: Full code DISCHARGE PLAN Home in the next 24 hours. Impression and plan of care have been directed as dictated by the signing physician. Laine Jones nurse practitioner acting as scribe for signing physician. Objective - Vital Signs Vital signs: Vital Signs Temp 98.6 F 12/11/21 03:26 Pulse 79 12/11/21 03:26 Resp 18 12/11/21 03:26 BP 144/74 12/11/21 03:26 Pulse Ox 99 12/11/21 03:26 Intake & Output 12/10/21 12/11/21 12/11/21 18:59 06:59 18:59 Intake Total 912 600 Output Total 3000 Balance 912 -2400 Intake: Oral 912 300 Hemodialysis 300 Output: Hemodialysis 3000 Other: # Voids 3 - Labs CBC & Chem 7: 12/09/21 06:16 12/09/21 06:16 Labs: Abnormal Lab Results - Last 24 Hours (Table) 12/10/21 12/10/21 12/10/21 Range/Units 12:17 17:08 21:16 POC Glucose (mg/dL) 286 H 142 H 352 H (75-99) mg/dL 12/11/21 Range/Units 07:20 POC Glucose (mg/dL) 294 H (75-99) mg/dL Microbiology - Last 24 Hours (Table) 12/10/21 11:20 Gram Stain - Preliminary Finger - Right Fifth Wound Culture - Preliminary 12/08/21 11:35 Blood Culture - Preliminary Blood No Growth after 48 hours 12/08/21 11:35 Blood Culture - Preliminary Blood No Growth after 48 hours
--- NOTE | 2021-12-11 11:13 | P.DS ---
Providers Date of admission: 12/09/21 08:13 Expected date of discharge: 12/11/21 Attending physician: Meng Jimenez Consults: 12/08/21 13:17 Consult Physician Routine Consulting Provider: Diane Madera Consult Reason/Comments: cellulitis Do you want consulting provider notified?: Yes 12/08/21 14:48 Consult Physician Routine Consulting Provider: [facility] Consult Reason/Comments: stable angina Do you want consulting provider notified?: Yes, Notify in am 12/08/21 17:52 Consult Physician Routine Consulting Provider: Abdirahman Mcdaniels Consult Reason/Comments: CP Do you want consulting provider notified?: Yes 12/09/21 08:08 Consult Physician Routine Consulting Provider: Alicia Christina Consult Reason/Comments: cellulitis rt hand, previ amputation lt fingers, concern for vasculitis Do you want consulting provider notified?: Yes 12/09/21 08:15 Consult Physician Routine Consulting Provider: Chacho Dove Consult Reason/Comments: ESRD Do you want consulting provider notified?: Yes Primary care physician: Hayes Oshea [facility] Course: HISTORY OF PRESENT ILLNESS: 61 year-old morbidly obese male one of Dr. Oshea patient with past medical history of end-stage renal disease on hemodialysis 3 times a week, history of type 2 diabetes on insulin, ischemic heart disease post to angioplasty and stent placement from last year, history of amputation of 3 and half finger of left hand secondary to chronic infection and osteomyelitis happen this last year with Dr. Christina orthopedic. 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 Patient was in hemodialysis today have the way to developed to have midsternal chest pain and angina lasted over an hour respond to nitroglycerin quite bed. Hemodialysis end up calling 911 patient was transported to the emergency department at [facility] by EMS he developed to have another episode of chest pain as he was the emergency department and it subtle down on its own. His testing in the emergency room including troponin was normal, his chemistry showed creatinine of 4.09 normal CBC with mild anemia only. Blood sugar was quite but elevated afterward patient has not taking his insulin today which will be started soon. Patient be admitted for anginal chest pain will be seen cardiology whether he can benefit from need any intervention is to be determined in the next 24 hours. Sadly patient developed to have infection of the right hand this time involving the finger is the first third and fifth with severe ulcerated vasculitis with infection involving the soft tissue and close to the joint. Patient was started on vancomycin we'll consult infectious disease and wound clinic at this point the picture looked like somebody had infection with vasculitis altogether was treated with antibiotic, culture, and if patient eventually need biopsy to exclude the possibility of vasculitis might be highly recommended. 12/09: Patient has been seen by cardiology and echocardiogram ordered and once this is reviewed, patient most likely will be cleared for discharge by cardiology. Regarding cellulitis of both fingertips, consult added for Dr. Christina regarding possible vasculitis and consult added for nephrology for end-stage renal disease. Patient has been afebrile, heart rate 67, blood pressure 121/76, pulse ox 90% on room air. Repeat blood work reveals hemoglobin 10.5, platelets 139. Sodium 133, potassium 4.6, chloride 91, CO2 25. BUN 42 and creatinine 6.2. Currently blood glucose running quite high yesterday at the 300s and 400s, this morning 137. Patient has been seen by Dr. Madera for cellulitis the right hand and finger most significant at the fifth. He has recommended Aquacel Ag dressings every 48 hours, vancomycin. Orthopedics has ordered an MRI of the right hand. 12/10: Patient has been seen by nephrology with plan to maintain hemodialysis on Tuesday schedule. Patient has been afebrile, heart rate in the 50s to 70s, blood pressure 131/57, pulse ox 98% on room air. Patient is utilizing CPAP at nighttime. CBG is running between 196 and 272. Scheduled Humulin R increased to 32 units. Reviewed results of MRI with the patient. Waiting for information from orthopedics and infectious disease to determine plan. MRI of the right hand revealed suspicious for osteomyelitis within the digits. Echocardiogram reveals EF of 55-60% with moderate concentric left ventricular hypertrophy, mild tricuspid regurgitation, mild mitral calcification. 12/11: Patient underwent HD yesterday and is continued on his normal schedule of . He has been continued on vancomycin per Dr. Madera. Wound culture is presumptive MRSA, blood culture no growth at 48 hours. Capillary blood glucose running anywhere between 142 and 352. Humulin R change to 34 units before meals and at bedtime. Patient has been cleared from orthopedics and recommends follow-up on Thursday 12/[address] Christina. Patient remains afebrile, heart rate 79, blood pressure 144/74, pulse ox 99% on room air. Dr. Madera has cleared the patient for discharge with plan for vancomycin for 6 week course with dialysis. Patient will be discharged in stable condition once all arrangements are completed for IV antibiotics. DISCHARGE DIAGNOSES 1 atypical chest pain: With significant history of coronary artery disease post angioplasty and stent placement with known blockage. Acute coronary syndrome ruled out. 2 severe CAD: Post angioplasty and stent placement done last year 3 severe vasculitis and fingertip infection of the fingers of the right hand, suspicious for osteomyelitis 4 end-stage renal disease on hemodialysis 3 times a week 5 type 2 diabetes on insulin, uncontrolled with hyperglycemia. 7 hypothyroidism 8 anasarca and chronic edema combination of kidney failure along with chronic diastolic heart failure 9 hyperlipidemia 10 known cardiovascular heart disease: Post angioplasty and stent placement back in October 2020. 11 chronic gout DISCHARGE PLAN Home Greater than 35 minutes was utilized and coordinating patient's discharge. Impression and plan of care have been directed as dictated by the signing physician. Laine Jones nurse practitioner acting as scribe for signing physician. Patient Condition at Discharge: Stable Plan - Discharge Summary Discharge Rx Participant: No New Discharge Prescriptions: New Aspirin 81 mg PO DAILY Vancomycin 1,000 mg IVPB Q24HR #18 each Continue Atorvastatin [Lipitor] 40 mg PO HS Levothyroxine Sodium 100 mcg PO HS Torsemide [Demadex] 40 mg PO DAILY Bryanna-Olimpia 1 tab PO DAILY Allopurinol [Zyloprim] 300 mg PO HS Insulin Regular, Human [Novolin R Flexpen] 30 unit SQ ACHS PRN PRN Reason: Blood Sugar - High HYDROcodone/APAP 10-325MG [Kane 10-325] 1 tab PO QID PRN PRN Reason: Pain Insulin Detemir [Levemir Flextouch Pen] 60 units SQ HS Calcium Acetate [PhosLo] 667 mg PO DIRECTED Nitroglycerin Sl Tabs [Nitrostat] 0.4 mg SL Q5M PRN PRN Reason: Chest Pain LORazepam [Ativan] 0.5 mg PO BID PRN PRN Reason: Anxiety Lactulose 30 gm PO DAILY Acetaminophen [Tylenol] 1,000 mg PO BID Calcium Carb-Mag Carb-Folic [Magnebind 400] 1 tab PO DIRECTED carvediloL [Coreg] 3.125 mg PO QAM carvediloL [Coreg] 6.25 mg PO HS Discharge Medication List Atorvastatin [Lipitor] 40 mg PO HS 08/07/14 [History] Levothyroxine Sodium 100 mcg PO HS 07/06/17 [History] Torsemide [Demadex] 40 mg PO DAILY 09/10/19 [History] Allopurinol [Zyloprim] 300 mg PO HS 10/20/20 [History] Bryanna-Olimpia 1 tab PO DAILY 10/20/20 [History] HYDROcodone/APAP 10-325MG [Kane 10-325] 1 tab PO QID PRN 11/24/20 [History] Insulin Regular, Human [Novolin R Flexpen] 30 unit SQ ACHS PRN 11/24/20 [History] Insulin Detemir [Levemir Flextouch Pen] 60 units SQ HS 02/05/21 [History] Calcium Acetate [PhosLo] 667 mg PO DIRECTED 03/11/21 [History] LORazepam [Ativan] 0.5 mg PO BID PRN 03/11/21 [History] Nitroglycerin Sl Tabs [Nitrostat] 0.4 mg SL Q5M PRN 03/11/21 [History] Acetaminophen [Tylenol] 1,000 mg PO BID 09/06/21 [History] Calcium Carb-Mag Carb-Folic [Magnebind 400] 1 tab PO DIRECTED 09/06/21 [History] Lactulose 30 gm PO DAILY 09/06/21 [History] carvediloL [Coreg] 3.125 mg PO QAM 12/08/21 [History] carvediloL [Coreg] 6.25 mg PO HS 12/08/21 [History] Aspirin 81 mg PO DAILY 12/11/21 [Rx] Vancomycin 1,000 mg IVPB Q24HR #18 each 12/11/21 [Rx] Follow up Appointment(s)/Referral(s): Alicia Christina DO [Doctor of Osteopathic Medicine] - 12/14/21 Hayes Oshea MD [Primary Care Provider] - 1 Week Malu Liz MD [STAFF PHYSICIAN] - 2 Weeks Diane Madera MD [STAFF PHYSICIAN] - 3 Weeks Ambulatory/Diagnostic Orders: Basic Metabolic Panel [LAB.AMB] Location: None Selected C Reactive Protein [LAB.AMB] Location: None Selected Complete Blood Count w/diff [LAB.AMB] Location: None Selected Erythrocyte Sedimentation Rate [LAB.AMB] Location: None Selected Vancomycin,Trough [LAB.AMB] Location: None Selected Discharge Disposition: HOME SELF-CARE
--- NOTE | 2021-12-11 11:45 | P.PN ---
Subjective Progress Note Date: 12/11/21 Principal diagnosis: Multiple finger wounds right hand. End-stage renal failure. Multiple medical comorbidities. This is a 61-year-old male who is well known to our practice with history of multiple partial amputations of the fingers of left hand. He began having some redness and swelling to the right little finger, middle finger and thumb not too long ago. He developed an ulcer to the little finger which has now opened up. He states that he lost the nail about a week ago. He is admitted to the hospital for workup regarding his chest pain. We're consulted for follow-up evaluation of his right hand. 12/10/21: Patient is seen and examined bedside. He has no new complaints today. Fingers on the right hand are dressed in band-aids at this time. Patient denies fevers, chills. He is afebrile. 12/11/2021: Patient seen and examined at bedside. He has no new complaints today. Vital signs are stable. Objective - Vital Signs Vital signs: Vital Signs Temp 98.7 F 12/11/21 08:00 Pulse 76 12/11/21 08:00 Resp 16 12/11/21 08:00 BP 134/71 12/11/21 08:00 Pulse Ox 98 12/11/21 08:00 Intake & Output 12/10/21 12/11/21 12/11/21 18:59 06:59 18:59 Intake Total 912 600 118 Output Total 3000 Balance 912 -2400 118 Intake: Oral 912 300 118 Hemodialysis 300 Output: Hemodialysis 3000 Other: # Voids 3 - Exam This is a pleasant 61-year-old male in no acute distress. He is alert and oriented 3. Exam of the right upper extremity reveals dressing is intact to the thumb, middle finger and little finger. The little finger dressing is removed. The wound actually looks improved today compared to previous exam. He has fairly good motion to the finger. There is minimal active drainage from the wound. Neurovascular status is grossly intact. - Labs CBC & Chem 7: 12/09/21 06:16 12/09/21 06:16 Labs: Abnormal Lab Results - Last 24 Hours (Table) 12/10/21 12/10/21 12/10/21 Range/Units 12:17 17:08 21:16 POC Glucose (mg/dL) 286 H 142 H 352 H (75-99) mg/dL 12/11/21 Range/Units 07:20 POC Glucose (mg/dL) 294 H (75-99) mg/dL Microbiology - Last 24 Hours (Table) 12/10/21 11:20 Gram Stain - Preliminary Finger - Right Fifth Wound Culture - Preliminary Presumptive MRSA 12/08/21 11:35 Blood Culture - Preliminary Blood No Growth after 48 hours 12/08/21 11:35 Blood Culture - Preliminary Blood No Growth after 48 hours Assessment and Plan (1) Cellulitis Current Visit: Yes Status: Acute Code(s): L03.90 - CELLULITIS, UNSPECIFIED SNOMED Code(s): 139813724 (2) Chronic kidney disease Current Visit: No Status: Acute Code(s): N18.9 - CHRONIC KIDNEY DISEASE, UNSPECIFIED SNOMED Code(s): 350997096 (3) Diabetes with skin ulcer Current Visit: No Status: Acute Code(s): E11.622 - TYPE 2 DIABETES MELLITUS WITH OTHER SKIN ULCER; L98.499 - NON-PRESSURE CHRONIC ULCER OF SKIN OF SITES W UNSP SEVERITY SNOMED Code(s): 18822488 (4) Osteomyelitis Current Visit: No Status: Acute Code(s): M86.9 - OSTEOMYELITIS, UNSPECIFIED SNOMED Code(s): 16595784 Plan: The clinical findings are discussed the patient. I have reviewed the case with Dr. Christina. His recommendation that we continue with conservative treatment area and antibiotics per infectious disease. We will follow up with him on Tuesday to discuss possible surgical intervention if needed.
[2021-12-11 12:27] LABS: Glucose,Whole Blood 314 mg/dL (75-99)
[2021-12-11] MEDS ORDERED: INSULIN REGULAR 100 UNIT/ML VIAL (IV) SQ SCH (12:30)
--- NOTE | 2021-12-11 14:46 | P.PN ---
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 On today's evaluation that is 12/11/2021, the patient denies any fever or any chills, the patient denies further chest pain, the patient denies any nausea no vomiting no abdominal pain denies pain to his right hand finger and no further drainage, the patient denies having any diarrhea Objective - Vital Signs Vital signs: Vital Signs Temp 98.7 F 12/11/21 08:00 Pulse 76 12/11/21 08:00 Resp 16 12/11/21 08:00 BP 134/71 12/11/21 08:00 Pulse Ox 98 12/11/21 08:00 Intake & Output 12/10/21 12/11/21 12/11/21 18:59 06:59 18:59 Intake Total 912 600 118 Output Total 3000 Balance 912 -2400 118 Intake: Oral 912 300 118 Hemodialysis 300 Output: Hemodialysis 3000 Other: # Voids 3 - Exam GENERAL DESCRIPTION: Middle-age male lying in bed in no distress RESPIRATORY SYSTEM: Unlabored breathing , decreased breath sounds at bases HEART: S1 S2 regular rate and rhythm , ABDOMEN: Soft , no tenderness EXTREMITIES: Right fifth finger did have a wound with some purulence which was cultured, patient right middle finger and thumb wound is superficial with no drainage - Labs CBC & Chem 7: 12/09/21 06:16 12/09/21 06:16 Labs: Abnormal Lab Results - Last 24 Hours (Table) 12/10/21 12/10/21 12/11/21 Range/Units 17:08 21:16 07:20 POC Glucose (mg/dL) 142 H 352 H 294 H (75-99) mg/dL Microbiology - Last 24 Hours (Table) 12/10/21 11:20 Gram Stain - Preliminary Finger - Right Fifth Wound Culture - Preliminary Presumptive MRSA 12/08/21 11:35 Blood Culture - Preliminary Blood No Growth after 48 hours 12/08/21 11:35 Blood Culture - Preliminary Blood No Growth after 48 hours Assessment and Plan (1) Cellulitis Status: Acute Code(s): L03.90 - CELLULITIS, UNSPECIFIED SNOMED Code(s): 394923677 Plan: 1patient with a 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 Patient did have an abnormal MRI suspicious for Osteomyelitis, local culture has been obtained which is currently growing presumptive MRSA 2patient to continue with vancomycin pharmacy to dose through the dialysis for 6 weeks and a close outpatient follow-up, with the weekly measurement of CBC BMP a sed rate and CRP 3-Aquacel silver dressing to the open area of the finger change every 48 hour Time with Patient: Less than 30
== END 2021-12-11 13:42 | disposition home or self-care (01) | DRG 602 ==
LOC: EC 10:52 → 6NMEDSUR 13:15 → OBSVTOIN 12-09 08:13 → 6NMEDSUR 12-10 09:19
PROVIDERS: ADMIT Internal Medicine Geriatric Medicine; ATTEND Internal Medicine Geriatric Medicine
PROC: 5A1D70Z Performance of Urinary Filtration, Intermittent, Less than 6 Hours Per Day (ICD-10-PCS; principal; 2021-12-09)
DX: L03.113 Cellulitis of right upper limb (principal); N18.6 End stage renal disease; Z68.42 Body mass index [BMI] 45.0-49.9, adult; I13.2 Hypertensive heart and chronic kidney disease with heart failure and with stage 5 chronic kidney disease, or end stage renal disease; I50.32 Chronic diastolic (congestive) heart failure; M86.9 Osteomyelitis, unspecified; I25.118 Atherosclerotic heart disease of native coronary artery with other forms of angina pectoris; D64.9 Anemia, unspecified; E03.9 Hypothyroidism, unspecified; E11.22 Type 2 diabetes mellitus with diabetic chronic kidney disease; E11.319 Type 2 diabetes mellitus with unspecified diabetic retinopathy without macular edema; E11.41 Type 2 diabetes mellitus with diabetic mononeuropathy; E11.51 Type 2 diabetes mellitus with diabetic peripheral angiopathy without gangrene; E11.622 Type 2 diabetes mellitus with other skin ulcer; E11.69 Type 2 diabetes mellitus with other specified complication; E66.01 Morbid (severe) obesity due to excess calories; E78.5 Hyperlipidemia, unspecified; F41.9 Anxiety disorder, unspecified; H54.7 Unspecified visual loss; I25.2 Old myocardial infarction; I49.3 Ventricular premature depolarization; I77.6 Arteritis, unspecified; L03.011 Cellulitis of right finger; L98.499 Non-pressure chronic ulcer of skin of other sites with unspecified severity; M1A.9XX0 Chronic gout, unspecified, without tophus (tophi); M89.9 Disorder of bone, unspecified; Z79.4 Long term (current) use of insulin; Z79.899 Other long term (current) drug therapy; Z82.0 Family history of epilepsy and other diseases of the nervous system; Z82.3 Family history of stroke; Z82.49 Family history of ischemic heart disease and other diseases of the circulatory system; Z86.73 Personal history of transient ischemic attack (TIA), and cerebral infarction without residual deficits; Z87.891 Personal history of nicotine dependence; Z95.5 Presence of coronary angioplasty implant and graft; Z96.1 Presence of intraocular lens; Z99.2 Dependence on renal dialysis
CPT/HCPCS: 36415; 71046; 80048; 80053; 80202; 83605; 83735; 84484; 85025; 85610; 85730; 87040; 87070; 87077; 87186; 87205; 90935; 93306; 96365; 96366; 99285

== ENCOUNTER 2022-05-25 17:03 | Emergency (ER) | payer MEDICARE, BC ==
[2022-05-25 17:11] VITALS: BP 143/68; PULSE 96; RESP 20; TEMP 98.6
--- NOTE | 2022-05-25 21:56 | ED ---
General Adult HPI - General Chief complaint: Extremity Injury, Upper Stated complaint: finger problem Time Seen by Provider: 05/25/22 21:35 Source: patient, RN notes reviewed Mode of arrival: ambulatory Limitations: no limitations - History of Present Illness Initial comments: this is a pleasant 61-year-old male presents to the emergency department comp laining of chronic wounds to the fingers of both hands. Patient was a previous cigarette smoker and has had a problem with recurrent infections on multiple fingers in both hands. Patient previously has had amputations done by [facility]. Patient started getting some drainage from the fingers again. Patient saw his her who ordered IV antibiotics to be given during dialysis. However he was sent up here by the infectious disease physician to have wound cultures taken prior to antibiotic initiation. Patient has no acute pathology No headache, no fever or chills, no changes in vision or hearing, no sore throat or difficulty with speech, no neck pain, no chest pain or shortness of breath, no abdominal pain, no nausea or vomiting, no changes in urination or bowel movements, no numbness or tingling, no extremity pain, no skin rashes or lesions. Past medical, surgical, social, and family history reviewed. - Related Data Home Medications Medication Instructions Recorded Confirmed Atorvastatin [Lipitor] 40 mg PO HS 08/07/14 12/08/21 Levothyroxine Sodium 100 mcg PO HS 07/06/17 12/08/21 Torsemide [Demadex] 40 mg PO DAILY 09/10/19 12/08/21 Bryanna-Olimpia 1 tab PO DAILY 10/20/20 12/08/21 allopurinoL [Zyloprim] 300 mg PO HS 10/20/20 12/08/21 HYDROcodone/APAP 10-325MG [[place] 1 tab PO QID PRN 11/24/20 12/08/21 10-325] Insulin Regular, Human [Novolin R 30 unit SQ ACHS PRN 11/24/20 12/08/21 Flexpen] Insulin Detemir [Levemir Flextouch 60 units SQ HS 02/05/21 12/08/21 Pen] Calcium Acetate [PhosLo] 667 mg PO DIRECTED 03/11/21 12/08/21 LORazepam [Ativan] 0.5 mg PO BID PRN 03/11/21 12/08/21 Nitroglycerin Sl Tabs [Nitrostat] 0.4 mg SL Q5M PRN 03/11/21 12/08/21 Acetaminophen [Tylenol] 1,000 mg PO BID 09/06/21 12/08/21 Calcium Carb-Mag Carb-Folic 1 tab PO DIRECTED 09/06/21 12/08/21 [Magnebind 400] Lactulose 30 gm PO DAILY 09/06/21 12/08/21 carvediloL [Coreg] 3.125 mg PO QAM 12/08/21 12/08/21 carvediloL [Coreg] 6.25 mg PO HS 12/08/21 12/08/21 Previous Rx's Medication Instructions Recorded Aspirin 81 mg PO DAILY 12/11/21 Vancomycin 1,000 mg IVPB Q24HR #18 each 12/11/21 Allergies Allergy/AdvReac Type Severity Reaction Status Date / Time No Known Allergies Allergy Verified 05/25/22 17:10 Review of Systems ROS Statement: Those systems with pertinent positive or pertinent negative responses have been documented in the HPI. ROS Other: All systems not noted in ROS Statement are negative. Past Medical History Past Medical History: Coronary Artery Disease (CAD), Cancer, Heart Failure, CVA /TIA, Diabetes Mellitus, Eye Disorder, Hypertension, Myocardial Infarction (NV), Renal Disease, Sleep Apnea/CPAP/BIPAP, Thyroid Disorder Additional Past Medical History / Comment(s): unhealing sore left index finger, neuropathy bilateral lower extremity/feet, bilateral eye diabetic retinopathy/poor vision/multiple injections, ESRD with hemodialysis T/TH/SAT from 6:15 to 11:00, anemia, "mini strokes" x2, AVANI with CPap use, occasional low back pain/disc disease, gout, hypothyroid Last Myocardial Infarction Date:: 10/20/20 History of Any Multi-Drug Resistant Organisms: MRSA Date of last positivie culture/infection: 12/10/21 MDRO Source:: Finger-Right 5th Past Surgical History: Adenoidectomy, Bariatric Surgery, Cholecystectomy, Heart Catheterization, Heart Catheterization With Stent, Orthopedic Surgery, Tonsillectomy Additional Past Surgical History / Comment(s): 10/22/20 PCI with stents x2, lap banding, FX of right ankle repair pins / plate, fistual lt arm jul 2018, lt shoulder sx (d/t separation), colonoscopies, bilateral cataract removals/lens implants. LIF surgery 08/11/21 Past Anesthesia/Blood Transfusion Reactions: Motion Sickness Additional Past Anesthesia/Blood Transfusion Reaction / Comment(s): CLAUSTERPHOBIA Date of Last Stent Placement:: 10/22/20 Past Psychological History: Anxiety Smoking Status: Former smoker Past Alcohol Use History: None Reported Past Drug Use History: None Reported - Past Family History Mother History Unknown: Yes Family Medical History: Coronary Artery Disease (CAD), Myocardial Infarction (NV) Additional Family Medical History / Comment(s): Mother at age 58 from multiple sclerosis Father Family Medical History: CVA/TIA, Myocardial Infarction (NV) Additional Family Medical History / Comment(s): Father had history of NV and CVA followed by a second NV and CVA and at age 65. Brother(s) Additional Family Medical History / Comment(s): . General Exam - General Exam Comments Initial Comments: Patient does not appear to be ill or toxic, appears to be adequately hydrated. Vital signs noted Limitations: no limitations General appearance: alert, in no apparent distress Head exam: Present: atraumatic, normocephalic, normal inspection Eye exam: Present: normal appearance, PERRL, EOMI. Absent: scleral icterus, conjunctival injection, periorbital swelling ENT exam: Present: normal exam, mucous membranes moist Neck exam: Present: normal inspection. Absent: tenderness, meningismus, lymphadenopathy Respiratory exam: Present: normal lung sounds bilaterally. Absent: respiratory distress, wheezes, rales, rhonchi, stridor Cardiovascular Exam: Present: regular rate, normal rhythm, normal heart sounds. Absent: systolic murmur, diastolic murmur, rubs, gallop, clicks GI/Abdominal exam: Present: soft. Absent: tenderness Extremities exam: Present: other (No evidence of erythema or cellulitis, radial pulses normal.). Absent: normal inspection (Patient has multiple previous amputations to fingers on both hands. Patient does have well-healing wounds to the distal aspect of fingers with some evidence of discharge and full-thickness wound to the distal aspect of the left third finger. Patient also has some discharge from the right fourth ), tenderness Neurological exam: Present: alert, oriented X3, CN II-XII intact Psychiatric exam: Present: normal affect, normal mood Course Vital Signs 05/25/22 17:08 Temperature 98.6 F Pulse Rate 96 Respiratory 20 Rate Blood Pressure 143/68 O2 Sat by Pulse 98 Oximetry Medical Decision Making - Medical Decision Making patient was sent here for wound cultures. Patient already has IV antibiotic therapy set up by Dr. Madera. Patient has an appointment tomorrow with Dr. Christina. Patient refusing any other diagnostic testing. Just wants the wound cultures. States that he will follow up with his specialist. Patient requesting discharge. The case was discussed in detail with ED attending physician. Presentation, findings, treatment plan discussed in detail. Patient was told to return to the ER for any signs or symptoms worsen. Told to return immediately if any other problems arise. All questions answered. Treatment plan discussed. Patient in agreement Every effort has been made to ensure accuracy of this dictation. However, due to the limitations of electronic medical records and dictation devices, errors in charting still occur. [place] Hand Dr. Pickering Tetanus was updated Disposition Clinical Impression: Chronic wound of extremity Narrative: Chronic wound infection multiple fingers Disposition: HOME SELF-CARE Condition: Good Instructions (If sedation given, give patient instructions): Cellulitis (ED) Additional Instructions: continue with the current treatment plan and antibiotics as recommended by Dr. Madera. follow-up with the orthopedic physician, Dr. Christina, tomorrow as planned Follow-up with your regular physician as directed. Return to the ER immediately if any symptoms worsen, new symptoms arise, or any other problems develop. Is patient prescribed a controlled substance at d/c from ED?: No Referrals: Diane Madera MD [STAFF PHYSICIAN] - As Soon As Possible Alicia Christina DO [Doctor of Osteopathic Medicine] - 05/26/22 Time of Disposition: 21:55
[2022-05-25] MEDS ORDERED: DIPH,PERTUS(ACELL)TETVAC-LF 0.5 ML VIAL IM ONE (21:57)
== END 2022-05-25 22:30 | disposition home or self-care (01) ==
LOC: EC 17:03
DX: L08.9 Local infection of the skin and subcutaneous tissue, unspecified (principal); I25.10 Atherosclerotic heart disease of native coronary artery without angina pectoris; I13.2 Hypertensive heart and chronic kidney disease with heart failure and with stage 5 chronic kidney disease, or end stage renal disease; E11.22 Type 2 diabetes mellitus with diabetic chronic kidney disease; N18.6 End stage renal disease; I50.9 Heart failure, unspecified; I25.2 Old myocardial infarction; E07.9 Disorder of thyroid, unspecified; Z86.73 Personal history of transient ischemic attack (TIA), and cerebral infarction without residual deficits; Z87.891 Personal history of nicotine dependence; Z23 Encounter for immunization; Z99.2 Dependence on renal dialysis; Z79.890 Hormone replacement therapy; Z79.4 Long term (current) use of insulin; Z79.02 Long term (current) use of antithrombotics/antiplatelets
CPT/HCPCS: 87070; 87075; 87205; 90471; 90715; 99282

== ENCOUNTER 2022-06-09 06:27 | Inpatient (IN) | payer MEDICARE, BC ==
--- NOTE | 2022-06-09 07:22 | ED ---
General Adult HPI - General Chief complaint: Recheck/Abnormal Lab/Rx Stated complaint: Surgery complications,recheck Time Seen by Provider: 06/09/22 06:41 Source: patient, RN notes reviewed Mode of arrival: wheelchair Limitations: no limitations - History of Present Illness Initial comments: This a 61-year-old male presents emergency Department chief complaint infection to his left hand. Patient states she's had multiple infections multiple surgeries to his hand. Patient states he had surgery last week for infection which portion of his hand, remaining fifth digit was removed. Patient states that he's been on IV antiemetics from Dr. Madera during his dialysis. Patient states that he's noticed increasing drainage, odor to the area is concern for infection he was advised by Dr. sims presents emergency Department if symptoms worsened. - Related Data Home Medications Medication Instructions Recorded Confirmed Atorvastatin [Lipitor] 40 mg PO HS 08/07/14 12/08/21 Levothyroxine Sodium 100 mcg PO HS 07/06/17 12/08/21 Torsemide [Demadex] 40 mg PO DAILY 09/10/19 12/08/21 Bryanna-Olimpia 1 tab PO DAILY 10/20/20 12/08/21 allopurinoL [Zyloprim] 300 mg PO HS 10/20/20 12/08/21 HYDROcodone/APAP 10-325MG [[place] 1 tab PO QID PRN 11/24/20 12/08/21 10-325] Insulin Regular, Human [Novolin R 30 unit SQ ACHS PRN 11/24/20 12/08/21 Flexpen] Insulin Detemir [Levemir Flextouch 60 units SQ HS 02/05/21 12/08/21 Pen] Calcium Acetate [PhosLo] 667 mg PO DIRECTED 03/11/21 12/08/21 LORazepam [Ativan] 0.5 mg PO BID PRN 03/11/21 12/08/21 Nitroglycerin Sl Tabs [Nitrostat] 0.4 mg SL Q5M PRN 03/11/21 12/08/21 Acetaminophen [Tylenol] 1,000 mg PO BID 09/06/21 12/08/21 Calcium Carb-Mag Carb-Folic 1 tab PO DIRECTED 09/06/21 12/08/21 [Magnebind 400] Lactulose 30 gm PO DAILY 09/06/21 12/08/21 carvediloL [Coreg] 3.125 mg PO QAM 12/08/21 12/08/21 carvediloL [Coreg] 6.25 mg PO HS 12/08/21 12/08/21 Previous Rx's Medication Instructions Recorded Aspirin 81 mg PO DAILY 12/11/21 Vancomycin 1,000 mg IVPB Q24HR #18 each 12/11/21 Allergies Allergy/AdvReac Type Severity Reaction Status Date / Time No Known Allergies Allergy Verified 06/09/22 06:34 Review of Systems ROS Statement: Those systems with pertinent positive or pertinent negative responses have been documented in the HPI. ROS Other: All systems not noted in ROS Statement are negative. Past Medical History Past Medical History: Coronary Artery Disease (CAD), Cancer, Heart Failure, CVA/TIA, Diabetes Mellitus, Eye Disorder, Hypertension, Myocardial Infarction ([place]), Renal Disease, Sleep Apnea/CPAP/BIPAP, Thyroid Disorder Additional Past Medical History / Comment(s): unhealing sore left index finger, neuropathy bilateral lower extremity/feet, bilateral eye diabetic retinopathy/poor vision/multiple injections, ESRD with hemodialysis T//SAT from 6:15 to 11:00, anemia, "mini strokes" x2, AVANI with CPap use, occasional low back pain/disc disease, gout, hypothyroid Last Myocardial Infarction Date:: 10/20/20 History of Any Multi-Drug Resistant Organisms: MRSA Date of last positivie culture/infection: 12/10/21 MDRO Source:: Finger-Right 5th Past Surgical History: Adenoidectomy, Bariatric Surgery, Cholecystectomy, Heart Catheterization, Heart Catheterization With Stent, Orthopedic Surgery, Tonsillectomy Additional Past Surgical History / Comment(s): 10/22/20 PCI with stents x2, lap banding, FX of right ankle repair pins / plate, fistual lt arm jul 2018, lt sh [place]ulder sx (d/t separation), colonoscopies, bilateral cataract removals/lens implants. LIF surgery 08/11/21 Past Anesthesia/Blood Transfusion Reactions: Motion Sickness Additional Past Anesthesia/Blood Transfusion Reaction / Comment(s): CLAUSTERPHOBIA Date of Last Stent Placement:: 10/22/20 Past Psychological History: Anxiety Smoking Status: Former smoker Past Alcohol Use History: None Reported Past Drug Use History: None Reported - Past Family History Mother History Unknown: Yes Family Medical History: Coronary Artery Disease (CAD), Myocardial Infarction (MS) Additional Family Medical History / Comment(s): Mother at age 58 from multiple sclerosis Father Family Medical History: CVA/TIA, Myocardial Infarction (MS) Additional Family Medical History / Comment(s): Father had history of MS and CVA followed by a second MS and CVA and at age 65. Brother(s) Additional Family Medical History / Comment(s): . General Exam Limitations: no limitations General appearance: alert, in no apparent distress Head exam: Present: atraumatic, normocephalic, normal inspection Respiratory exam: Present: normal lung sounds bilaterally. Absent: respiratory distress, wheezes, rales, rhonchi, stridor Cardiovascular Exam: Present: regular rate, normal rhythm, normal heart sounds. Absent: systolic murmur, diastolic murmur, rubs, gallop, clicks Extremities exam: Present: other (Left hand there is a large wound extending on the medial last back with surrounding erythema, purulent drainage and foul order noted sutures in place) Neurological exam: Present: alert, oriented X3, CN II-XII intact Skin exam: Present: warm, dry, intact, normal color. Absent: rash Course Vital Signs 06/09/22 06:35 Temperature 98.1 F Pulse Rate 82 Respiratory 16 Rate Blood Pressure 153/67 O2 Sat by Pulse 100 Oximetry Medical Decision Making - Medical Decision Making 61-year-old male presented for wound recheck. Patient has obvious signs of infection, early wound dehiscence. Patient will be admitted to medicine with consult to orthopedics case discussed with medicine - Lab Data Result diagrams: 06/09/22 07:05 06/09/22 07:05 Lab Results 06/09/22 06/09/22 06/09/22 Range/Units 07:05 07:05 07:05 WBC 9.9 (3.8-10.6) k/uL RBC 3.04 L (4.30-5.90) m/uL Hgb 9.7 L (13.0-17.5) gm/dL Hct 28.8 L (39.0-53.0) % MCV 94.9 (80.0-100.0) fL MCH 31.8 (25.0-35.0) pg MCHC 33.5 (31.0-37.0) g/dL RDW 14.8 (11.5-15.5) % Plt Count 212 (150-450) k/uL MPV 7.8 Neutrophils % 80 % Lymphocytes % 10 % Monocytes % 5 % Eosinophils % 2 % Basophils % 1 % Neutrophils # 7.9 H (1.3-7.7) k/uL Lymphocytes # 1.0 (1.0-4.8) k/uL Monocytes # 0.5 (0-1.0) k/uL Eosinophils # 0.2 (0-0.7) k/uL Basophils # 0.1 (0-0.2) k/uL Poikilocytosis Slight Sodium 135 L (137-145) mmol/L Potassium 4.4 (3.5-5.1) mmol/L Chloride 90 L (98-107) mmol/L Carbon Dioxide 32 H (22-30) mmol/L Anion Gap 13 mmol/L BUN 31 H (9-20) mg/dL Creatinine 4.33 H (0.66-1.25) mg/dL Est GFR (CKD-EPI)AfAm 16 (>60 ml/min/1.73 sqM) Est GFR (CKD-EPI)NonAf 14 (>60 ml/min/1.73 sqM) Glucose 222 H (74-99) mg/dL Plasma Lactic Acid Oscar 1.8 (0.7-2.0) mmol/L Calcium 9.0 (8.4-10.2) mg/dL Total Bilirubin 0.5 (0.2-1.3) mg/dL AST 19 (17-59) U/L ALT 8 (4-49) U/L Alkaline Phosphatase 125 (38-126) U/L Total Protein 6.9 (6.3-8.2) g/dL Albumin 3.7 (3.5-5.0) g/dL Disposition Clinical Impression: Infected hand, Surgical wound infection, Cellulitis of right hand Disposition: ADMITTED IP TO THIS HOSP Condition: Poor Referrals: Hayes Oshea MD [Primary Care Provider] - 1-2 days Time of Disposition: 08:34
[2022-06-09 07:25] LABS: Basophils # (A) 0.1 k/uL (0-0.2); Basophils % (A) 1 %; Eosinophils # (A) 0.2 k/uL (0-0.7); Eosinophils % (A) 2 %; HCT 28.8 % (39.0-53.0); HGB 9.7 gm/dL (13.0-17.5); Lymphocytes % (A) 10 %; MCH 31.8 pg (25.0-35.0); MCHC 33.5 g/dL (31.0-37.0); MCV 94.9 fL (80.0-100.0); Mean Platelet Volume 7.8; Monocytes # (A) 0.5 k/uL (0-1.0); Monocytes % (A) 5 %; Neutrophils # (A) 7.9 k/uL (1.3-7.7); Neutrophils % (A) 80 %; Platelet Count 212 k/uL (150-450); Poikilocytosis Slight; RBC 3.04 m/uL (4.30-5.90); RDW 14.8 % (11.5-15.5); WBC 9.9 k/uL (3.8-10.6)
[2022-06-09 07:32] LABS: Albumin 3.7 g/dL (3.5-5.0); Potassium 4.4 mmol/L (3.5-5.1); Total Bilirubin 0.5 mg/dL (0.2-1.3); Total Protein 6.9 g/dL (6.3-8.2)
--- NOTE | 2022-06-09 07:32 | XR ---
EXAMINATION TYPE: XR hand complete LT DATE OF EXAM: 06/09/2022 CLINICAL HISTORY: Infection with pain and swelling. TECHNIQUE: Frontal, lateral and oblique images of the left hand are obtained. COMPARISON: Prior left hand xray September 22, 2020. FINDINGS: There are new amputation defects at first distal phalanx with proximal metaphysis remnant. No suspicious bony destruction at this level. New amputation defect second finger terminates distal m etadiaphysis of the second metacarpal with some cortical irregularity, cannot exclude acute osteomyel itis at this level. New amputation defects third finger proximal diaphysis third metacarpal fairly we ll-defined. New amputation defect fourth finger proximal metadiaphysis of the distal phalanx fairly w ell-defined. New amputation defect proximal to mid diaphysis fifth metacarpal with some bony fragment ation, cannot exclude acute osteomyelitis at this level. There is moderate subcutaneous edema and sof t tissue swelling. There is severe small vessel arterial vascular calcification. IMPRESSION: As above. Not exclude acute osteomyelitis at second and fifth finger amputation sites. Co rrelate clinically with sites of clinical concern.
[2022-06-09] MEDS ORDERED: HYDROcodone/APAP 10-325MG 1 EACH TAB PO ONE (07:39)
[2022-06-09] MEDS ORDERED: NALOXONE 0.4 MG/ML 1 ML VIAL IV PRN (08:35)
[2022-06-09] MEDS ORDERED: LORazepam 0.5 MG TAB PO PRN (08:37)
[2022-06-09] MEDS ORDERED: VANCOMYCIN IV PER PHARMACY 1 EACH MISC MISCELLANE PRN (08:39)
[2022-06-09] MEDS ORDERED: PIPERACILLIN-TAZOBACTAM 3.375 GM in SODIUM CHLORIDE 0.9% 100 ML IVPB SCH ×2 (08:45→09:00)
[2022-06-09] MEDS ORDERED: VANCOMYCIN 2,000 MG in SODIUM CHLORIDE 0.9% 500 ML 500 ML IVPB STA (08:49)
[2022-06-09 10:41] LABS: C Reactive Protein 8.5 mg/dL (<1.0)
[2022-06-09] MEDS: carvediloL 3.125 MG TAB PO SCH (11:05)
[2022-06-09] MEDS: TORSEMIDE 20 MG TAB PO SCH (11:05)
[2022-06-09] MEDS: LACTULOSE 20 GM/30 ML CUP PO SCH (11:05)
--- NOTE | 2022-06-09 11:09 | P.NPCON ---
History of Present Illness - Reason for Consult end stage renal disease - History of Present Illness Reason for consultation: End-stage renal disease History of present illness: Patient is a 61-year-old male seen in consultation for end-stage renal disease. Patient was seen and examined in the emergency room. He is maintained on hemodialysis on Tuesday schedule via left upper extremity AV fistula. Patient did complete hemodialysis yesterday. Patient states he had a joint office left pinky removed about 2 weeks ago by orthopedic surgery. However he subsequently developed follow smelling odor with drainage and then underwent more debridement. However he again developed drainage and came to the hospital. He has been seen by ID and is on IV antibiotics. Denies chest pain or shortness of breath. No fever or chills. No vomiting or diarrhea. No other complaints. Vital signs are stable. General: Awake. No acute distress. HEENT: Head exam is unremarkable. LUNGS: Breath sounds decreased. HEART: Rate and Rhythm are regular. ABDOMEN: Soft, obese. EXTREMITITES: Trace edema. Past Medical History Past Medical History: Coronary Artery Disease (CAD), Cancer, Heart Failure, CVA/TIA, Diabetes Mellitus, Eye Disorder, Hypertension, Myocardial Infarction ([place]), Renal Disease, Sleep Apnea/CPAP/BIPAP, Thyroid Disorder Additional Past Medical History / Comment(s): unhealing sore left index finger, neuropathy bilateral lower extremity/feet, bilateral eye diabetic retinopathy/poor vision/multiple injections, ESRD with hemodialysis T/TH/SAT from 6:15 to 11:00, anemia, "mini strokes" x2, AVANI with CPap use, occasional low back pain/disc disease, gout, hypothyroid Last Myocardial Infarction Date:: 10/20/20 History of Any Multi-Drug Resistant Organisms: MRSA Date of last positivie culture/infection: 12/10/21 MDRO Source:: Finger-Right 5th Past Surgical History: Adenoidectomy, Bariatric Surgery, Cholecystectomy, Heart Catheterization, Heart Catheterization With Stent, Orthopedic Surgery, Tonsillectomy Additional Past Surgical History / Comment(s): 10/22/20 PCI with stents x2, lap banding, FX of right ankle repair pins / plate, fistual lt arm jul 2018, lt shou lder sx (d/t separation), colonoscopies, bilateral cataract removals/lens implants. LIF surgery 08/11/21 Past Anesthesia/Blood Transfusion Reactions: Motion Sickness Additional Past Anesthesia/Blood Transfusion Reaction / Comment(s): CLAUSTERPHOBIA Date of Last Stent Placement:: 10/22/20 Past Psychological History: Anxiety Smoking Status: Former smoker Past Alcohol Use History: None Reported Past Drug Use History: None Reported - Past Family History Mother History Unknown: Yes Family Medical History: Coronary Artery Disease (CAD), Myocardial Infarction ([place]) Additional Family Medical History / Comment(s): Mother at age 58 from multiple sclerosis Father Family Medical History: CVA/TIA, Myocardial Infarction ([place]) Additional Family Medical History / Comment(s): Father had history of [place] and CVA followed by a second [place] and CVA and at age 65. Brother(s) Additional Family Medical History / Comment(s): . Medications and Allergies Home Medications Medication Instructions Recorded Confirmed Type Levothyroxine Sodium 100 mcg PO HS 07/06/17 06/09/22 History Torsemide [Demadex] 40 mg PO DAILY 09/10/19 06/09/22 History Bryanna-Olimpia 1 tab PO DAILY 10/20/20 06/09/22 History HYDROcodone/APAP 10-325MG [[place] 1 tab PO QID PRN 11/24/20 06/09/22 History 10-325] Insulin Regular, Human [Novolin R 30 unit SQ ACHS PRN 11/24/20 06/09/22 History Flexpen] Insulin Detemir [Levemir Flextouch 60 units SQ HS 02/05/21 06/09/22 History Pen] Calcium Acetate [PhosLo] 1,334 mg PO BID-W/MEALS 03/11/21 06/09/22 History LORazepam [Ativan] 0.5 mg PO TID PRN 03/11/21 06/09/22 History Nitroglycerin Sl Tabs [Nitrostat] 0.4 mg SL Q5M PRN 03/11/21 06/09/22 History Lactulose 30 gm PO DAILY PRN 09/06/21 06/09/22 History carvediloL [Coreg] 3.125 mg PO QAM 12/08/21 06/09/22 History carvediloL [Coreg] 6.25 mg PO HS 12/08/21 06/09/22 History metroNIDAZOLE [Flagyl] 500 mg PO TID 06/09/22 06/09/22 History Allergies Allergy/AdvReac Type Severity Reaction Status Date / Time No Known Allergies Allergy Verified 06/09/22 09:52 Physical Exam Vitals: Vital Signs Temp Pulse Resp BP Pulse Ox 06/09/22 06:35 98.1 F 82 16 153/67 100 Intake and Output 06/08/22 06/09/22 06/09/22 22:59 06:59 14:59 Other: Weight 144.696 kg Results - Lab Results Most recent lab results Calcium 9.0 mg/dL (8.4-10.2) 06/09/22 07:05 06/09/22 07:05 06/09/22 07:05 Assessment and Plan Plan: Assessment: 1. End-stage renal disease maintained on hemodialysis on Tuesday schedule via left upper extremity AV fistula. 2. Left hand infection/cellulitis on antibiotics per ID. 3. Chronic kidney disease mineral bone disease maintained on phosphate binders. 4. Diabetes mellitus. 5. Anemia of chronic kidney disease. Plan: Hemodialysis tomorrow. Follow-up cultures. Monitor vancomycin levels. Dose to be adjusted for renal function. Target level near 15. Check iron studies. Thank you for the consultation. I will continue to follow the patient with you during his hospital stay.
[2022-06-09] MEDS ORDERED: NITROGLYCERIN SL TABS 0.4 MG TAB SUBLINGUAL PRN (12:29)
[2022-06-09] MEDS: CALCIUM ACETATE 667 MG TAB PO SCH ×2 (13:22→17:13)
--- NOTE | 2022-06-09 13:59 | P.CNOR ---
History of Present Illness - HPI Consult date: 06/09/22 Consult reason: other (Left hand infection) History of present illness: The patient is a 61-year-old male who presented to the emergency department early this morning for ongoing infection in his left hand. The patient has a history of multiple finger infections on his bilateral hands with multiple surgeries. The most recent surgeries included a left little finger MP disarticulation on 05/28/2022 and a subsequent left little finger ray amputation on 06/04/2022. The patient states that on Tuesday afternoon he noticed increased drainage and a smell coming from his hand wound. The patient was seen in Dr. Prakash vasquez's office where the dressing was changed and a new antibiotic was prescribed. The patient has been receiving IV antibiotics at dialysis. He states that he is having some pain to the base of the left ring finger where he thinks the infection is coming from. The patient was admitted for further evaluation by orthopedic hand surgery and infectious disease. He denies any fever or chills. Review of Systems Constitutional: Denies chills, Denies fatigue, Denies fever Cardiovascular: Denies chest pain, Denies shortness of breath Respiratory: Denies cough Gastrointestinal: Denies diarrhea, Denies nausea, Denies vomiting Musculoskeletal: left: hand pain Past Medical History Past Medical History: Coronary Artery Disease (CAD), Cancer, Heart Failure, CVA/TIA, Diabetes Mellitus, Eye Disorder, Hypertension, Myocardial Infarction ([place]), Renal Disease, Sleep Apnea/CPAP/BIPAP, Thyroid Disorder Additional Past Medical History / Comment(s): unhealing sore left index finger, neuropathy bilateral lower extremity/feet, bilateral eye diabetic retinopathy/poor vision/multiple injections, ESRD with hemodialysis T/TH/SAT from 6:15 to 11:00, anemia, "mini strokes" x2, AVANI with CPap use, occasional low back pain/disc disease, gout, hypothyroid Last Myocardial Infarction Date:: 10/20/20 History of Any Multi-Drug Resistant Organisms: MRSA Year Discovered:: 12/10/21 MDRO Source:: Finger-Right 5th Past Surgical History: Adenoidectomy, Bariatric Surgery, Cholecystectomy, Heart Catheterization, Heart Catheterization With Stent, Orthopedic Surgery, Tonsillectomy Additional Past Surgical History / Comment(s): 10/22/20 PCI with stents x2, lap banding, FX of right ankle repair pins / plate, fistual lt arm jul 2018, lt shoulder sx (d/t separation), colonoscopies, bilateral cataract removals/lens implants. LIF surgery 08/11/21, 5th finger amputation 2021 Past Anesthesia/Blood Transfusion Reactions: Motion Sickness Additional Past Anesthesia/Blood Transfusion Reaction / Comm: CLAUSTERPHOBIA Date of Last Stent Placement:: 10/22/20 Past Psychological History: Anxiety Additional Psychological History / Comment(s): Pt resides with his spouse. He no longer drives d/t vision loss. His spouse drives and organizes his medica tions for him. He has a walker and uses a wheelchair if going distances (dialysis days). Smoking Status: Former smoker Past Alcohol Use History: None Reported Additional Past Alcohol Use History / Comment(s): Patient was a smoker of 2-3 packs per day for 35 years and quit in 2006. Past Drug Use History: None Reported - Past Family History Mother History Unknown: Yes Family Medical History: Coronary Artery Disease (CAD), Myocardial Infarction ([place]) Additional Family Medical History / Comment(s): Mother at age 58 from multiple sclerosis Father Family Medical History: CVA/TIA, Myocardial Infarction ([place]) Additional Family Medical History / Comment(s): Father had history of [place] and CVA followed by a second [place] and CVA and at age 65. Brother(s) Additional Family Medical History / Comment(s): . Medications and Allergies Home Medications Medication Instructions Recorded Confirmed Type Levothyroxine Sodium 100 mcg PO HS 07/06/17 06/09/22 History Torsemide [Demadex] 40 mg PO DAILY 09/10/19 06/09/22 History Bryanna-Olimpia 1 tab PO DAILY 10/20/20 06/09/22 History HYDROcodone/APAP 10-325MG [[place] 1 tab PO QID PRN 11/24/20 06/09/22 History 10-325] Insulin Regular, Human [Novolin R 30 unit SQ ACHS PRN 11/24/20 06/09/22 History Flexpen] Insulin Detemir [Levemir Flextouch 60 units SQ HS 02/05/21 06/09/22 History Pen] Calcium Acetate [PhosLo] 1,334 mg PO BID-W/MEALS 03/11/21 06/09/22 History LORazepam [Ativan] 0.5 mg PO TID PRN 03/11/21 06/09/22 History Nitroglycerin Sl Tabs [Nitrostat] 0.4 mg SL Q5M PRN 03/11/21 06/09/22 History Lactulose 30 gm PO DAILY PRN 09/06/21 06/09/22 History carvediloL [Coreg] 3.125 mg PO QAM 12/08/21 06/09/22 History carvediloL [Coreg] 6.25 mg PO HS 12/08/21 06/09/22 History metroNIDAZOLE [Flagyl] 500 mg PO TID 06/09/22 06/09/22 History Allergies Allergy/AdvReac Type Severity Reaction Status Date / Time No Known Allergies Allergy Verified 06/09/22 09:52 Physical Examination The patient is a 61-year-old male in no acute distress. He is alert and oriented 3. Exam of the left hand reveals a dressing that was removed with a small amount of sanguinous drainage present. Sutures are present to the ulnar a spect of the hand. 3 sutures were removed and the area of the distal incision where it appears that drainage is coming from. The incision is slightly dehisced and moist in the area. There is a mild pain to palpation to the base of the left ring finger. There is also a wound to the dorsal aspect of the left thumb. He has decreased sensation to the hand which is chronic due to neuropathy. Circulatory status is intact. Results X-rays of the right hand dated today revealed status post left little finger ray amputation; prior amputations to the left index finger, left middle finger, and partial amputation to the left ring finger. No signs of osteomyelitis to the remaining fingers. - Labs Labs: Abnormal Lab Results - Last 24 Hours (Table) 06/09/22 06/09/22 Range/Units 07:05 07:05 RBC 3.04 L (4.30-5.90) m/uL Hgb 9.7 L (13.0-17.5) gm/dL Hct 28.8 L (39.0-53.0) % Neutrophils # 7.9 H (1.3-7.7) k/uL Sodium 135 L (137-145) mmol/L Chloride 90 L (98-107) mmol/L Carbon Dioxide 32 H (22-30) mmol/L BUN 31 H (9-20) mg/dL Creatinine 4.33 H (0.66-1.25) mg/dL Glucose 222 H (74-99) mg/dL C-Reactive Protein 8.5 H (<1.0) mg/dL H & H 06/09/22 Range/Units 07:05 Hgb 9.7 L (13.0-17.5) gm/dL Hct 28.8 L (39.0-53.0) % Result Diagrams: 06/09/22 07:05 06/09/22 07:05 Assessment and Plan (1) Cellulitis of right hand Current Visit: Yes Status: Acute Code(s): L03.113 - CELLULITIS OF RIGHT UPPER LIMB SNOMED Code(s): 51712550 (2) Infected hand Current Visit: Yes Status: Acute Code(s): L08.9 - LOCAL INFECTION OF THE SKIN AND SUBCUTANEOUS TISSUE, UNSP SNOMED Code(s): 553220736 (3) Chronic kidney disease Current Visit: No Status: Acute Code(s): N18.9 - CHRONIC KIDNEY DISEASE, UNSPECIFIED SNOMED Code(s): 035488422 (4) Congestive heart failure Current Visit: No Status: Acute Code(s): I50.9 - HEART FAILURE, UNSPECIFIED SNOMED Code(s): 54354701 Plan: The clinical and x-ray findings were discussed with the patient. The case was discussed at length with Dr. Christina. Three sutures were removed from the incision site to allow the wound to drain and a new dressing was applied today. Continue IV antibiotics per infectious disease. Continue local wound care with as needed dressing changes to the left hand. The patient will be scheduled for irrigation and debridement of the left hand with wound VAC application tomorrow afternoon. The patient will be awake during surgery and a local will be given prior to the procedure. No need for the patient to be NPO at midnight. It was discussed with the patient that if we are unable to control this infection, he may need a further disarticulation at the carpal level to control the infection. The patient would like to preserve as much of his hand as possible to aid in ambulation with a walker. We will continue to follow patient closely and make further recommendations as needed.
[2022-06-09] MEDS: HYDROcodone/APAP 10-325MG 1 EACH TAB PO PRN ×2 (14:05→20:10)
[2022-06-09] MEDS: AMPICILLIN-SULBACTAM 3 GM in SODIUM CHLORIDE 0.9% 100 ML IVPB SCH ×2 (14:15→22:07)
[2022-06-09 16:51] LABS: Glucose,Whole Blood 298 mg/dL (70-110)
[2022-06-09] MEDS: INSULIN REGULAR 100 UNIT/ML VIAL (IV) SQ PRN ×2 (18:05→22:08)
[2022-06-09] MEDS: carvediloL 6.25 MG TAB PO SCH (20:11)
[2022-06-09] MEDS: ATORVASTATIN 40 MG TAB PO SCH (20:11)
[2022-06-09] MEDS: allopurinoL 300 MG TAB PO SCH (20:11)
[2022-06-09] MEDS: LEVOTHYROXINE 100 MCG TAB PO SCH (20:11)
[2022-06-09 20:40] LABS: Glucose,Whole Blood 300 mg/dL (70-110)
[2022-06-09] MEDS: INSULIN DETEMIR (LEVEMIR) 100 UNIT/ML SYR SQ SCH (22:01)
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
--- NOTE | 2022-06-09 23:22 | HP ---
HISTORY AND PHYSICAL CHIEF COMPLAINT: Left hand wound. HISTORY OF PRESENT ILLNESS: This 61-year-old gentleman with a past medical history of renal failure, on hemodialysis, had multiple amputations of the fingers. Patient also left hand wound. The patient had multiple surgeries by Dr. Christina recently and Dr. Madera is following the patient also. The patient is receiving antibiotics also. Culture díaz, the patient had multiple organisms grown including anaerobic organisms as well as MSSA per the most recent culture report. There is no history of fever, rigors, chills, headache, weight loss, or seizures. PAST MEDICAL HISTORY: Reviewed, include hemodialysis, chronic kidney disease, end-stage renal disease. HOME MEDICATIONS: Again reviewed include Flagyl, dose and rest of medication noted. ALLERGIES: None. FAMILY HISTORY: History of heart disease present in the family. SOCIAL HISTORY: Previous history of smoker. REVIEW OF SYSTEMS: A 14-point review is negative except as mentioned earlier. PHYSICAL EXAMINATION: VITAL SIGNS: Pulse 78, blood pressure 140/72, and respirations 18. HEENT: Conjunctivae normal. NECK: No jugular venous distention. RESPIRATIONS: Normal respirations at the basis. No rhonchi ABDOMEN: Soft, obese. LEGS: No edema. EXTREMITIES: Focal exam shows left hand wound present. Finger amputation also present. LABS: Creatinine 4.3, the other labs are noted. ASSESSMENT: 1. Left hand wound with failure of outpatient treatment, rule out osteomyelitis. 2. History of coronary artery disease. 3. CVA/TIA. 4. History of congestive heart failure. RECOMMENDATIONS: This 61-year-old gentleman presented with multiple complex medical issues. We will monitor the patient closely. Continue the current management and broad-spectrum IV antibiotics. Closely follow with Dr. Madera, Dr. Collier, and Dr. Dove's. Prognosis guarded. Further recommendations to follow. A hand x-ray was done, showed possible osteomyelitis. Further recommendations to follow. MMODL / IJN: [id number] /
[2022-06-10 00:25] LABS: % Iron Saturation 19.76 (15.00-50.00)
[2022-06-10] MEDS: HYDROcodone/APAP 10-325MG 1 EACH TAB PO PRN ×4 (02:24→20:42)
[2022-06-10 07:51] LABS: Basophils % (A) 1 %; Eosinophils # (A) 0.3 k/uL (0-0.7); Eosinophils % (A) 3 %; HCT 28.2 % (39.0-53.0); HGB 8.8 gm/dL (13.0-17.5); Hypochromasia Slight; Lymphocytes # (A) 1.2 k/uL (1.0-4.8); Lymphocytes % (A) 14 %; MCH 30.5 pg (25.0-35.0); MCHC 31.4 g/dL (31.0-37.0); MCV 97.2 fL (80.0-100.0); Mean Platelet Volume 7.8; Monocytes # (A) 0.4 k/uL (0-1.0); Monocytes % (A) 4 %; Neutrophils # (A) 6.5 k/uL (1.3-7.7); Neutrophils % (A) 76 %; Platelet Count 185 k/uL (150-450); Poikilocytosis Slight; RDW 14.8 % (11.5-15.5); WBC 8.6 k/uL (3.8-10.6)
[2022-06-10 08:15] LABS: Glucose,Whole Blood 146 mg/dL (70-110)
[2022-06-10] MEDS: TORSEMIDE 20 MG TAB PO SCH (08:15)
[2022-06-10] MEDS: CALCIUM CARB-MAG CARB-FOLIC 1 EACH TAB PO SCH ×3 (08:15→20:38)
[2022-06-10] MEDS: LACTULOSE 20 GM/30 ML CUP PO SCH (08:15)
[2022-06-10] MEDS: carvediloL 3.125 MG TAB PO SCH (08:15)
[2022-06-10] MEDS: AMPICILLIN-SULBACTAM 3 GM in SODIUM CHLORIDE 0.9% 100 ML IVPB SCH (08:15)
[2022-06-10] MEDS ORDERED: VANCOMYCIN 2,000 MG in SODIUM CHLORIDE 0.9% 500 ML 500 ML IVPB ONE (09:00)
[2022-06-10 10:45] LABS: ALT 13 U/L (10-49); AST 14 U/L (14-35); African American GFR (CKD) 11.2 (60.0-200.0); Albumin 3.2 g/dL (3.8-4.9); Albumin/Globulin Ratio 1.07 (1.60-3.17); Alkaline Phosphatase 101 U/L (41-126); BUN/Creat Ratio 7.17 Ratio (12.00-20.00); Blood Urea Nitrogen 41.6 mg/dL (9.0-27.0); Calcium 8.7 mg/dL (8.7-10.3); Chloride 94 mmol/L (96-109); Glucose 169 mg/dL (70-110); Non-African American GFR(CKD) 9.7 (60.0-200.0); Phosphorus 6.1 mg/dL (2.4-5.1); Potassium 4.2 mmol/L (3.5-5.5); Sodium 137 mmol/L (135-145); Total Bilirubin <0.15 mg/dL (0.30-1.20); Total Protein 6.2 g/dL (6.2-8.2)
--- NOTE | 2022-06-10 11:31 | P.PN ---
Subjective Patient is seen in follow-up for end-stage renal disease. He is maintained on hemodialysis on Tuesday schedule. Scheduled for dialysis today. Also scheduled for debridement and wound VAC placement for left hand infection. Denies chest pain or shortness of breath. No active complaints. Vital signs are stable. General: Awake. No acute distress. HEENT: Head exam is unremarkable. LUNGS: Breath sounds decreased. HEART: Rate and Rhythm are regular. ABDOMEN: Soft, no distention. Obese. EXTREMITITES: No edema. Left hand finger amputations noted. Wrapped. No drainage. Objective - Vital Signs Vital signs: Vital Signs Temp 97.7 F 06/10/22 08:00 Pulse 85 06/10/22 08:00 Resp 18 06/10/22 08:00 BP 161/89 06/10/22 08:00 Pulse Ox 100 06/10/22 08:00 FiO2 Intake & Output 06/09/22 06/10/22 06/10/22 18:59 06:59 18:59 Weight 144.696 kg Other: # Voids 1 1 - Labs CBC & Chem 7: 06/10/22 06:38 06/10/22 06:38 Labs: Abnormal Lab Results - Last 24 Hours (Table) 06/09/22 06/09/22 06/09/22 Range/Units 07:05 16:50 20:37 RBC (4.30-5.90) m/uL Hgb (13.0-17.5) gm/dL Hct (39.0-53.0) % Chloride (96-109) mmol/L BUN (9.0-27.0) mg/dL Creatinine (0.6-1.5) mg/dL Est GFR (CKD-EPI)AfAm (60.0-200.0) Est GFR (CKD-EPI)NonAf (60.0-200.0) BUN/Creatinine Ratio (12.00-20.00) Ratio Glucose (70-110) mg/dL POC Glucose (mg/dL) 298 H 300 H (70-110) mg/dL Phosphorus (2.4-5.1) mg/dL Iron 44 L (65-175) ug/dL TIBC 221 L (228-460) ug/dL Transferrin 158.0 L (204.0-354.0) mg/dL Ferritin 1785.0 H (22.0-322.0) ng/mL Total Bilirubin (0.30-1.20) mg/dL Albumin (3.8-4.9) g/dL Albumin/Globulin Ratio (1.60-3.17) g/dL 06/10/22 06/10/22 06/10/22 Range/Units 06:38 06:38 08:12 RBC 2.90 L (4.30-5.90) m/uL Hgb 8.8 L (13.0-17.5) gm/dL Hct 28.2 L (39.0-53.0) % Chloride 94 L (96-109) mmol/L BUN 41.6 H (9.0-27.0) mg/dL Creatinine 5.8 H (0.6-1.5) mg/dL Est GFR (CKD-EPI)AfAm 11.2 L (60.0-200.0) Est GFR (CKD-EPI)NonAf 9.7 L (60.0-200.0) BUN/Creatinine Ratio 7.17 L (12.00-20.00) Ratio Glucose 169 H (70-110) mg/dL POC Glucose (mg/dL) 146 H (70-110) mg/dL Phosphorus 6.1 H (2.4-5.1) mg/dL Iron (65-175) ug/dL TIBC (228-460) ug/dL Transferrin (204.0-354.0) mg/dL Ferritin (22.0-322.0) ng/mL Total Bilirubin <0.15 L (0.30-1.20) mg/dL Albumin 3.2 L (3.8-4.9) g/dL Albumin/Globulin Ratio 1.07 L (1.60-3.17) g/dL Microbiology - Last 24 Hours (Table) 06/09/22 06:50 Blood Culture - Preliminary Blood No Growth after 24 hours 06/09/22 07:05 Blood Culture - Preliminary Blood No Growth after 24 hours 06/09/22 13:52 Gram Stain - Preliminary Hand - Left Wound Culture - Preliminary Assessment and Plan Plan: Assessment: 1. End-stage renal disease maintained on hemodialysis on Tuesday schedule via left upper extremity AV fistula. 2. Left hand infection/cellulitis on antibiotics per ID. scheduled for debridement today. 3. Chronic kidney disease mineral bone disease maintained on phosphate binders. Phosphorus 6.1 today. 4. Diabetes mellitus. 5. Anemia of chronic kidney disease. High ferritin noted. Plan: Hemodialysis today. Add Aranesp. Follow-up cultures. Monitor vancomycin levels. Dose to be adjusted for renal function. Target level near 15. Add hydralazine 50 mg twice daily. Hold for systolic blood pressure less than 125.
[2022-06-10 12:03] LABS: Glucose,Whole Blood 200 mg/dL (70-110)
[2022-06-10] MEDS: hydrALAZINE HCL 50 MG TAB PO SCH ×2 (12:17→20:13)
[2022-06-10] MEDS ORDERED: DARBEPOETIN ALFA 40 MCG/0.4 ML SYRINGE SQ SCH (13:00)
[2022-06-10] MEDS ORDERED: SODIUM CHLORIDE 0.9% 1,000 ML IV ONE (16:10)
--- NOTE | 2022-06-10 16:13 | NM ---
EXAMINATION TYPE: NM bone 3 phase DATE OF EXAM: 06/10/2022 COMPARISON: None HISTORY: Left hand osteomyelitis TECHNIQUE: 3 phase bone scan performed over the bilateral hands FINDINGS: Blood flow: Blood flow appears symmetrical. The injection site within the wrist hand is evident. Blood pool: Radiotracer distribution appears normal and symmetrical. Static images: Note is made of amputation of the right fifth digit and left hand middle and fifth dig its. Note is made of radiotracer uptake in the distal medial and lateral digits as well as the distal portion of the middle metacarpal. (Correlated with plain film, this would be the Thumb, index and ri ng fingers) Increased uptake is noted through the proximal and distal interphalangeal joint spaces o f the right hand as well as the metacarpal phalangeal joint spaces. IMPRESSION: 1. Degenerative joint changes with increased uptake discussed above. 2. Prior amputations 3. Suspicious uptake to suggest osteomyelitis is not evident.
[2022-06-10 16:16] LABS: Glucose,Whole Blood 202 mg/dL (70-110)
[2022-06-10] MEDS ORDERED: INSULIN ASPART (NovoLOG) 100 UNIT/ML VIAL SQ ONE (16:20)
[2022-06-10] MEDS ORDERED: fentaNYL (PF) 50 MCG/ML 2 ML AMP ONE (16:52)
[2022-06-10] MEDS ORDERED: MIDAZOLAM 2 MG/2 ML VIAL ONE (16:52)
[2022-06-10] MEDS ORDERED: LIDOCAINE 2%-EPI 1:100,000 20 ML VIAL SQ ONE ×2 (17:11)
[2022-06-10] MEDS ORDERED: HYDROmorphone 0.5 MG/0.5 ML SYRINGE IVP ONE (18:20)
[2022-06-10 18:36] LABS: Glucose,Whole Blood 175 mg/dL (70-110)
--- NOTE | 2022-06-10 19:20 | P.OP ---
Date of Procedure: 06/10/22 Preoperative Diagnosis: Left hand osteomyelitis Postoperative Diagnosis: same Procedure(s) Performed: Left hand irrigation and debridement Anesthesia: MAC, local Surgeon: Alicia Christina Estimated Blood Loss (ml): 2 Condition: stable Disposition: PACU Indications for Procedure: Lan is a 61M with a chronic history of osteomyelitis and nonhealing wounds secondary to obsessive nail biting in the face of poor vascularity from diabetes and an AV fistula. He has ESRD on HD and has been receiving IV ABX for several weeks now. He originally has a small finger MP disarticulation for distal phalanx osteomyelitis, which was unsuccessful at controlling the infection. Revision amputation to a ray resection was performed 6 days ago. The wound is again foul and draining. We decided to do another I&D today with a wound vac application. Description of Procedure: The patient, operative extremity, and procedure were ID'd in the preop holding area. After informed consent was obtained, the patient was brought back to the operating room. The extremity was prepped and draped in normal sterile fashion. After a formal time out was performed, a local block was performed with 1% lidocaine with epinephrine. The previous incision was opened. There was dark necrotic tissue directly under the skin. There was fat necrosis of the palmar fat. The wound was explored with a hemostat and there were no pockets of purulence. All devitalized tissue and infected tissue was removed sharply with a scalpel and bluntly with a curette. About 5mm3 of tissue was removed. Debridement was carried down to the bone. The wound bled minimally even without a tourniquet. About 5mm of the palmar skin etc was necrotic and this was trimmed. Following the debridement, the wound was copiously irrigated with normal saline. A wound vac was then applied. Patient tolerated the procedure well and was brought back to the PACU in stable condition.
[2022-06-10] MEDS: LEVOTHYROXINE 100 MCG TAB PO SCH (20:13)
[2022-06-10] MEDS: carvediloL 6.25 MG TAB PO SCH (20:13)
[2022-06-10] MEDS: allopurinoL 300 MG TAB PO SCH (20:13)
[2022-06-10] MEDS: ATORVASTATIN 40 MG TAB PO SCH (20:13)
[2022-06-10] MEDS: INSULIN DETEMIR (LEVEMIR) 100 UNIT/ML SYR SQ SCH (20:42)
[2022-06-10 20:43] LABS: Glucose,Whole Blood 179 mg/dL (70-110)
[2022-06-10] MEDS: HYDROmorphone 0.5 MG/0.5 ML SYRINGE IVP PRN (21:29)
[2022-06-11] MEDS: HYDROcodone/APAP 10-325MG 1 EACH TAB PO PRN ×4 (03:16→21:08)
[2022-06-11] MEDS: HYDROmorphone 0.5 MG/0.5 ML SYRINGE IVP PRN ×3 (06:21→16:51)
[2022-06-11 06:53] LABS: Glucose,Whole Blood 234 mg/dL (70-110)
[2022-06-11] MEDS: LACTULOSE 20 GM/30 ML CUP PO SCH (07:06)
[2022-06-11] MEDS: TORSEMIDE 20 MG TAB PO SCH (08:54)
[2022-06-11] MEDS: CALCIUM ACETATE 667 MG TAB PO SCH ×3 (08:54→16:50)
[2022-06-11] MEDS: carvediloL 3.125 MG TAB PO SCH (08:54)
[2022-06-11] MEDS: hydrALAZINE HCL 50 MG TAB PO SCH ×3 (08:54→21:08)
[2022-06-11] MEDS: AMPICILLIN-SULBACTAM 3 GM in SODIUM CHLORIDE 0.9% 100 ML IVPB SCH (08:55)
--- NOTE | 2022-06-11 09:32 | PN ---
PROGRESS NOTE SUBJECTIVE: This is a 61-year-old gentleman admitted with significant infection of the left hand and failure of outpatient treatment, is being closely monitored. Incision and drainage planned with Orthopedic Surgery. No chest pain. No palpitation. Bone scan is pending. PHYSICAL EXAMINATION: VITAL SIGNS: Pulse is 77, blood pressure 116/90, respirations 18. HEENT: Conjunctivae normal. NECK: No JVD. RESPIRATIONS: Breath sounds diminished at the bases. ABDOMEN: Soft. NERVOUS SYSTEM: No focal deficits. EXTREMITIES: Focal exam shows left hand wound present. LABS: Reviewed. Bone scan pending. ASSESSMENT: 1. Left hand wound and failure of outpatient treatment, rule out osteomyelitis. 2. History of coronary artery disease. 3. Cerebrovascular accident/transient ischemic attack. 4. History of congestive heart failure. 5. Multiple medical issues. RECOMMENDATIONS: Recommend to continue with antibiotics. Follow the cultures. Surgical evaluation per Orthopedic Surgery. Closely follow with Infectious Disease. The patient will need long-term IV antibiotic treatment. Further recommendations to follow. MMODL / IJN: [id number] /
[2022-06-11] MEDS ORDERED: hydrALAZINE HCL 20 MG/ML 1 ML VIAL IVP PRN (10:29)
--- NOTE | 2022-06-11 10:30 | P.PN ---
Subjective Patient is seen in follow-up for end-stage renal disease. He is maintained on hemodialysis on Tuesday schedule. Underwent debridement and wound VAC placement for left hand infection yesterday. Denies chest pain or shortness of breath. No active complaints. Vital signs are stable. General: Awake. No acute distress. HEENT: Head exam is unremarkable. LUNGS: Breath sounds decreased. HEART: Rate and Rhythm are regular. ABDOMEN: Soft, no distention. Obese. EXTREMITITES: No edema. Left hand finger amputations noted. Wrapped. No drainage. Wound VAC noted. Objective - Vital Signs Vital signs: Vital Signs Temp 98.6 F 06/11/22 08:00 Pulse 82 06/11/22 08:00 Resp 18 06/11/22 08:00 BP 166/91 06/11/22 08:00 Pulse Ox 99 06/11/22 08:00 FiO2 Intake & Output 06/10/22 06/11/22 06/11/22 18:59 06:59 18:59 Intake Total 400 Output Total 3504 Balance -3104 Intake: IV 100 Hemodialysis 300 Output: Urine 2 Hemodialysis 3500 Estimated Blood Loss 2 Other: # Voids 1 # Bowel Movements 1 - Labs CBC & Chem 7: 06/10/22 06:38 06/10/22 06:38 Labs: Abnormal Lab Results - Last 24 Hours (Table) 06/10/22 06/10/22 06/10/22 Range/Units 06:38 12:01 16:14 Chloride 94 L (96-109) mmol/L BUN 41.6 H (9.0-27.0) mg/dL Creatinine 5.8 H (0.6-1.5) mg/dL Est GFR (CKD-EPI)AfAm 11.2 L (60.0-200.0) Est GFR (CKD-EPI)NonAf 9.7 L (60.0-200.0) BUN/Creatinine Ratio 7.17 L (12.00-20.00) Ratio Glucose 169 H (70-110) mg/dL POC Glucose (mg/dL) 200 H 202 H (70-110) mg/dL Phosphorus 6.1 H (2.4-5.1) mg/dL Total Bilirubin <0.15 L (0.30-1.20) mg/dL Albumin 3.2 L (3.8-4.9) g/dL Albumin/Globulin Ratio 1.07 L (1.60-3.17) g/dL 06/10/22 06/10/22 06/11/22 Range/Units 18:35 20:40 06:49 Chloride (96-109) mmol/L BUN (9.0-27.0) mg/dL Creatinine (0.6-1.5) mg/dL Est GFR (CKD-EPI)AfAm (60.0-200.0) Est GFR (CKD-EPI)NonAf (60.0-200.0) BUN/Creatinine Ratio (12.00-20.00) Ratio Glucose (70-110) mg/dL POC Glucose (mg/dL) 175 H 179 H 234 H (70-110) mg/dL Phosphorus (2.4-5.1) mg/dL Total Bilirubin (0.30-1.20) mg/dL Albumin (3.8-4.9) g/dL Albumin/Globulin Ratio (1.60-3.17) g/dL Microbiology - Last 24 Hours (Table) 06/09/22 06:50 Blood Culture - Preliminary Blood No Growth after 48 hours 06/09/22 07:05 Blood Culture - Preliminary Blood No Growth after 48 hours 06/10/22 17:32 Gram Stain - Preliminary Hand - Left Wound Culture - Preliminary 06/10/22 17:32 Anaerobic Culture - Preliminary Hand - Left Assessment and Plan Plan: Assessment: 1. End-stage renal disease maintained on hemodialysis on Tuesday schedule via left upper extremity AV fistula. 2. Left hand infection/cellulitis on antibiotics per ID. status post debridement and wound VAC placement yesterday. 3. Chronic kidney disease mineral bone disease maintained on phosphate binders. Phosphorus 6.1 this admission. 4. Diabetes mellitus. 5. Anemia of chronic kidney disease. High ferritin noted. On Aranesp. Plan: Hemodialysis tomorrow. Follow-up cultures. Increase frequency of hydralazine. Hold for systolic blood pressure less than 120. Check magnesium level.
--- NOTE | 2022-06-11 11:38 | P.PN ---
Subjective Progress Note Date: 06/11/22 Principal diagnosis: Status post I&D with wound vac application left hand This is a 61 year-old male post left hand I&D with wound vac application. This is post-op day 1. The patient was evaluated at the bedside this morning. The patient denies nausea, vomiting, abdominal pain, chest pain, or shortness of breath this morning. He states his pain is controlled at this time. The wound vac is putting out scant bloody drainage. He is currently on Unasyn and Vancomycin per infectious disease. Objective - Vital Signs Vital signs: Vital Signs Temp 98.6 F 06/11/22 08:00 Pulse 82 06/11/22 08:00 Resp 18 06/11/22 08:00 BP 166/91 06/11/22 08:00 Pulse Ox 99 06/11/22 08:00 FiO2 Intake & Output 06/10/22 06/11/22 06/11/22 18:59 06:59 18:59 Intake Total 400 Output Total 3504 Balance -3104 Intake: IV 100 Hemodialysis 300 Output: Urine 2 Hemodialysis 3500 Estimated Blood Loss 2 Other: # Voids 1 # Bowel Movements 1 - Exam The patient is a 61 y/o male in no acute distress. He is alert and oriented x3. Exam of the left hand reveals a wound vac in place with a good seal. Scant bloody drainage in the canister. No new numbness or tingling. Circulatory status is intact. - Labs CBC & Chem 7: 06/10/22 06:38 06/10/22 06:38 Labs: Abnormal Lab Results - Last 24 Hours (Table) 06/10/22 06/10/22 06/10/22 Range/Units 12:01 16:14 18:35 POC Glucose (mg/dL) 200 H 202 H 175 H (70-110) mg/dL 06/10/22 06/11/22 Range/Units 20:40 06:49 POC Glucose (mg/dL) 179 H 234 H (70-110) mg/dL Microbiology - Last 24 Hours (Table) 06/09/22 06:50 Blood Culture - Preliminary Blood No Growth after 48 hours 06/09/22 07:05 Blood Culture - Preliminary Blood No Growth after 48 hours 06/10/22 17:32 Gram Stain - Preliminary Hand - Left Wound Culture - Preliminary 09/29/22 17:32 Anaerobic Culture - Preliminary Hand - Left Assessment and Plan (1) Cellulitis of right hand Current Visit: Yes Status: Acute Code(s): L03.113 - CELLULITIS OF RIGHT UPPER LIMB SNOMED Code(s): 62742829 (2) Infected hand Current Visit: Yes Status: Acute Code(s): L08.9 - LOCAL INFECTION OF THE SKIN AND SUBCUTANEOUS TISSUE, UNSP SNOMED Code(s): 633064696 (3) Chronic kidney disease Current Visit: No Status: Acute Code(s): N18.9 - CHRONIC KIDNEY DISEASE, UNSPECIFIED SNOMED Code(s): 353504369 (4) Congestive heart failure Current Visit: No Status: Acute Code(s): I50.9 - HEART FAILURE, UNSPECIFIED SNOMED Code(s): 81086563 Plan: The clinical and x-ray findings were discussed with the patient. The case was discussed at length with Dr. Christina. Continue wound vac to the left hand. Continue IV antibiotics per infectious disease. Pain control as needed. The patient will be taken to the OR on Tuesday for wound vac change and further wound debridement if needed. He will be NPO at midnight tomorrow night. We will continue to follow patient closely and make further recommendations as needed.
[2022-06-11 11:54] LABS: Glucose,Whole Blood 269 mg/dL (70-110)
--- NOTE | 2022-06-11 15:25 | CDI ---
Documentation Clarification Form Date: 06/11/2022 03:08:57 PM From: Berta Corbin RN CCDS Admit Date: 06/09/2022 08:34:00 AM Patient Name: Lan Tillman Visit Number: [id number] Discharge Date: ATTENTION: The Clinical Documentation Specialists (CDI) and [facility] Coding Staff appreciate your assistance in clarifying documentation. Please respond to the clarification below the line at the bottom and electronically sign. The CDI & [facility] Coding staff will review the response and follow-up if needed. Please note: Queries are made part of the Legal Health Record. If you have any questions, please contact the author of this message via ITS. Dr. Alicia Florence debridement is documented 06/10, Procedure 06/10. Additional clarification regarding the procedure is requested. History/Risk Factors: 61-year-old male presents to the ED with left had wound that has had multiple amputations of the fingers last surgery was last week and having increasing drainage with odor. Medical History: ESRD, Hemodialysis and DM. H&P, 06/09. Clinical Indicators: Procedure note, 06/10: Left hand irrigation and debridement There was fat necrosis of the palmar fat. The wound was explored with a hemostat and there were no pockets of purulence. All devitalized tissue and infected tissue was removed sharply with a scalpel and bluntly with a curette. About 5mm3 of tissue was removed. Debridement was carried down to the bone About 5mm of the palmar skin etc was necrotic and this was trimmed. Following the debridement, the wound was copiously irrigated with normal saline Treatment: Debridement see above, 06/11 Ampicillin Sodium / Sulbactam Sodium 3gm IVPB Q24HR. Please clarify the type of procedure performed: [ x] Excisional debridement (the removal of necrotic, devitalized tissue or slough by means of cutting away of tissue) [ ] Non-excisional debridement (the removal of necrotic, devitalized tissue or slough by means of flushing, brushing, or washing. (Irrigation) [ ] Other; please specify [ ] Unable to determine Five elements required for accurate and compliant documentation of a debridement: Technique used (e.g., excisional, excised, cutting, brushing, jet lavage etc.) Instrument(s) used (e.g., scalpel, curette, etc.) Nature of the tissue removed (e.g., necrotic, devitalized tissues, non-viable tissue, etc.) Appearance and size of the wound (e.g., down to fresh bleeding tissue, 7cm x 10cm, etc.) Depth of the debridement* (e.g., skin, subcutaneous tissue, fascia, muscle, bone, etc.) (Template Last Revised: November 2020) excisional. thank you! JEANNETTE
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
[2022-06-11 16:53] LABS: Glucose,Whole Blood 372 mg/dL (70-110)
[2022-06-11] MEDS ORDERED: DEXTROSE 50% SYRINGE 50 ML IVP PRN ×2 (16:59)
[2022-06-11] MEDS: INSULIN ASPART (NovoLOG) 100 UNIT/ML VIAL SQ SCH ×2 (17:13→21:09)
[2022-06-11 20:49] LABS: Glucose,Whole Blood 304 mg/dL (70-110)
[2022-06-11] MEDS: ATORVASTATIN 40 MG TAB PO SCH (21:08)
[2022-06-11] MEDS: allopurinoL 300 MG TAB PO SCH (21:08)
[2022-06-11] MEDS: carvediloL 6.25 MG TAB PO SCH (21:08)
[2022-06-11] MEDS: LEVOTHYROXINE 100 MCG TAB PO SCH (21:08)
[2022-06-11] MEDS: INSULIN DETEMIR (LEVEMIR) 100 UNIT/ML SYR SQ SCH (21:09)
[2022-06-12 07:17] LABS: Glucose,Whole Blood 289 mg/dL (70-110)
[2022-06-12] MEDS: HYDROcodone/APAP 10-325MG 1 EACH TAB PO PRN ×3 (07:42→20:56)
--- NOTE | 2022-06-12 09:00 | P.PN ---
Subjective Progress Note Date: 06/12/22 Principal diagnosis: Status post I&D with wound vac application left hand This is a 61 year-old male post left hand I&D with wound vac application. This is post-op day 2. The patient was evaluated at the bedside this morning. The patient denies nausea, vomiting, abdominal pain, chest pain, or shortness of breath this morning. He states his pain is controlled at this time. The wound vac is putting out scant bloody drainage. He is currently on Unasyn per infectious disease. Objective - Vital Signs Vital signs: Vital Signs Temp 98.1 F 06/12/22 07:59 Pulse 84 06/12/22 07:59 Resp 17 06/12/22 07:59 BP 148/69 06/12/22 07:59 Pulse Ox 98 06/12/22 07:59 FiO2 Intake & Output 06/11/22 06/12/22 06/12/22 18:59 06:59 18:59 Output Total 250 Balance -250 Output: Urine 250 Other: Voiding Method Toilet Urinal # Voids 4 - Exam The patient is a 61 y/o male in no acute distress. He is alert and oriented x3. Exam of the left hand reveals a wound vac in place with a good seal. Scant bloody drainage in the canister. No new numbness or tingling. Circulatory status is intact. - Labs CBC & Chem 7: 06/10/22 06:38 06/10/22 06:38 Labs: Abnormal Lab Results - Last 24 Hours (Table) 06/11/22 06/11/22 06/11/22 Range/Units 11:51 16:52 20:48 POC Glucose (mg/dL) 269 H 372 H 304 H (70-110) mg/dL 06/12/22 Range/Units 07:16 POC Glucose (mg/dL) 289 H (70-110) mg/dL Microbiology - Last 24 Hours (Table) 06/09/22 06:50 Blood Culture - Preliminary Blood No Growth after 48 hours 06/09/22 07:05 Blood Culture - Preliminary Blood No Growth after 48 hours 06/10/22 17:32 Gram Stain - Preliminary Hand - Left Wound Culture - Preliminary Assessment and Plan (1) Cellulitis of right hand Current Visit: Yes Status: Acute Code(s): L03.113 - CELLULITIS OF RIGHT UPPER LIMB SNOMED Code(s): 18289109 (2) Infected hand Current Visit: Yes Status: Acute Code(s): L08.9 - LOCAL INFECTION OF THE SKIN AND SUBCUTANEOUS TISSUE, UNSP SNOMED Code(s): 624551416 (3) Chronic kidney disease Current Visit: No Status: Acute Code(s): N18.9 - CHRONIC KIDNEY DISEASE, UNSPECIFIED SNOMED Code(s): 874193917 (4) Congestive heart failure Current Visit: No Status: Acute Code(s): I50.9 - HEART FAILURE, UNSPECIFIED SNOMED Code(s): 94645231 Plan: The clinical and x-ray findings were discussed with the patient. The case was discussed at length with Dr. Christina. Continue wound vac to the left hand. Continue IV antibiotics per infectious disease. Pain control as needed. The patient will be taken to the OR tomorrow for wound vac change and further wound debridement if needed. He will be NPO at midnight tonight. We will continue to follow patient closely and make further recommendations as needed.
[2022-06-12] MEDS: INSULIN ASPART (NovoLOG) 100 UNIT/ML VIAL SQ SCH ×4 (09:06→20:57)
[2022-06-12] MEDS: HYDROmorphone 0.5 MG/0.5 ML SYRINGE IVP PRN ×2 (09:24→17:38)
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
[2022-06-12 11:30] LABS: Glucose,Whole Blood 246 mg/dL (70-110)
--- NOTE | 2022-06-12 11:35 | P.PN ---
Subjective Patient is seen for follow-up for end-stage renal disease. He is currently seen on hemodialysis. Patient is tolerating his treatment well. He is complaining of pain in his left hand at the site of the wound VAC. Objective - Vital Signs Vital signs: Vital Signs Temp 98.1 F 06/12/22 07:59 Pulse 84 06/12/22 07:59 Resp 17 06/12/22 07:59 BP 148/69 06/12/22 07:59 Pulse Ox 98 06/12/22 07:59 FiO2 Intake & Output 06/11/22 06/12/22 06/12/22 18:59 06:59 18:59 Output Total 250 Balance -250 Output: Urine 250 Other: Voiding Method Toilet Urinal # Voids 4 - Exam Awake, comfortable, not in any acute distress Alert oriented 3 Examination of the heart S1 and S2 Examination lungs bilateral breath sounds are heard Abdomen is soft nontender morbidly obese Examination lower extremity shows trace edema bilaterally with chronic skin changes [employer] exam grossly intact Wound VAC noted in the left left hand with multiple amputation of fingers on both hands. - Labs CBC & Chem 7: 06/10/22 06:38 06/10/22 06:38 Labs: Abnormal Lab Results - Last 24 Hours (Table) 06/11/22 06/11/22 06/11/22 Range/Units 11:51 16:52 20:48 POC Glucose (mg/dL) 269 H 372 H 304 H (70-110) mg/dL 06/12/22 06/12/22 Range/Units 07:16 11:29 POC Glucose (mg/dL) 289 H 246 H (70-110) mg/dL Microbiology - Last 24 Hours (Table) 06/09/22 06:50 Blood Culture - Preliminary Blood No Growth after 72 hours 06/09/22 07:05 Blood Culture - Preliminary Blood No Growth after 72 hours Assessment and Plan Assessment: 1. End-stage renal disease maintained on hemodialysis on Tuesday schedule via left upper extremity AV fistula. 2. Left hand infection/cellulitis on antibiotics per ID. status post debridement and wound VAC placement. 3. Chronic kidney disease mineral bone disease maintained on phosphate binders. Phosphorus 6.1 this admission. 4. Diabetes mellitus. 5. Anemia of chronic kidney disease. High ferritin noted. On Aranesp. Plan: Hemodialysis today Continue with phosphate binders
[2022-06-12] MEDS: hydrALAZINE HCL 50 MG TAB PO SCH ×3 (13:24→20:56)
[2022-06-12] MEDS: CALCIUM CARB-MAG CARB-FOLIC 1 EACH TAB PO SCH ×3 (13:25→17:32)
[2022-06-12] MEDS: AMPICILLIN-SULBACTAM 3 GM in SODIUM CHLORIDE 0.9% 100 ML IVPB SCH (13:28)
[2022-06-12] MEDS: TORSEMIDE 20 MG TAB PO SCH (13:29)
[2022-06-12] MEDS: LACTULOSE 20 GM/30 ML CUP PO SCH (13:29)
[2022-06-12] MEDS: carvediloL 3.125 MG TAB PO SCH (13:29)
[2022-06-12 16:09] LABS: Glucose,Whole Blood 388 mg/dL (70-110)
[2022-06-12 20:46] LABS: Glucose,Whole Blood 338 mg/dL (70-110)
[2022-06-12] MEDS: allopurinoL 300 MG TAB PO SCH (20:56)
[2022-06-12] MEDS: ATORVASTATIN 40 MG TAB PO SCH (20:56)
[2022-06-12] MEDS: carvediloL 6.25 MG TAB PO SCH (20:57)
[2022-06-12] MEDS: LEVOTHYROXINE 100 MCG TAB PO SCH (20:57)
[2022-06-12] MEDS: INSULIN DETEMIR (LEVEMIR) 100 UNIT/ML SYR SQ SCH (20:58)
[2022-06-13] MEDS: HYDROmorphone 0.5 MG/0.5 ML SYRINGE IVP PRN ×2 (01:41→21:24)
[2022-06-13] MEDS: HYDROcodone/APAP 10-325MG 1 EACH TAB PO PRN ×4 (05:39→22:43)
[2022-06-13 06:53] LABS: Glucose,Whole Blood 248 mg/dL (70-110)
[2022-06-13] MEDS: INSULIN ASPART (NovoLOG) 100 UNIT/ML VIAL SQ SCH ×4 (07:47→21:25)
[2022-06-13] MEDS: LACTULOSE 20 GM/30 ML CUP PO SCH (07:48)
[2022-06-13] MEDS: CALCIUM ACETATE 667 MG TAB PO SCH ×3 (07:48→17:29)
[2022-06-13] MEDS: hydrALAZINE HCL 50 MG TAB PO SCH ×3 (07:48→21:25)
[2022-06-13] MEDS: TORSEMIDE 20 MG TAB PO SCH (07:49)
[2022-06-13] MEDS: carvediloL 3.125 MG TAB PO SCH (07:49)
[2022-06-13] MEDS: AMPICILLIN-SULBACTAM 3 GM in SODIUM CHLORIDE 0.9% 100 ML IVPB SCH (07:49)
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
--- NOTE | 2022-06-13 10:06 | P.PN ---
Subjective Patient is seen for follow-up for end-stage renal disease. Status post hemodialysis yesterday with UF of 4 L. Patient tolerated his treatment well. He is complaining of pain in his left hand at the site of the wound VAC. This is improved Objective - Vital Signs Vital signs: Vital Signs Temp 98.0 F 06/13/22 08:00 Pulse 76 06/13/22 08:00 Resp 17 06/13/22 08:00 BP 137/58 06/13/22 08:00 Pulse Ox 100 06/13/22 08:00 FiO2 Intake & Output 06/12/22 06/13/22 06/13/22 18:59 06:59 18:59 Intake Total 120 100 Output Total 4250 100 Balance -4130 -100 100 Intake: Intake, IV Titration 100 Amount Ampicillin-Sulbactam 3 gm 100 In Sodium Chloride 0.9% 100 ml @ 200 mls/hr IVPB Q24HR [facility] Rx#:[id number] Oral 120 Output: Urine 250 100 Hemodialysis 4000 Other: Voiding Method Toilet Urinal - Exam Awake, comfortable, not in any acute distress Alert oriented 3 Appears euvolemic [employer] exam grossly intact Wound VAC noted in the left left hand with multiple amputation of fingers on both hands. - Labs CBC & Chem 7: 06/10/22 06:38 06/10/22 06:38 Labs: Abnormal Lab Results - Last 24 Hours (Table) 06/12/22 06/12/22 06/12/22 Range/Units 11:29 16:08 20:44 POC Glucose (mg/dL) 246 H 388 H 338 H (70-110) mg/dL 06/13/22 Range/Units 06:52 POC Glucose (mg/dL) 248 H (70-110) mg/dL Microbiology - Last 24 Hours (Table) 06/09/22 06:50 Blood Culture - Preliminary Blood No Growth after 96 hours 06/09/22 07:05 Blood Culture - Preliminary Blood No Growth after 96 hours 06/09/22 13:52 Gram Stain - Final Hand - Left Wound Culture - Final Eikenella species Staphylococcus aureus 06/10/22 17:32 Anaerobic Culture - Preliminary Hand - Left Assessment and Plan Assessment: 1. End-stage renal disease maintained on hemodialysis on Tuesday schedule via left upper extremity AV fistula. 2. Left hand infection/cellulitis on antibiotics per ID. status post debridement and wound VAC placement. 3. Chronic kidney disease mineral bone disease maintained on phosphate binders. Phosphorus 6.1 this admission. 4. Diabetes mellitus. 5. Anemia of chronic kidney disease. High ferritin noted. On Aranesp. Plan: Next hemodialysis on 06/15/2022 Antibiotics as per ID
[2022-06-13 11:04] LABS: Glucose,Whole Blood 217 mg/dL (70-110)
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
[2022-06-13] MEDS ORDERED: fentaNYL (PF) 50 MCG/ML 2 ML AMP ONE (14:10)
[2022-06-13] MEDS ORDERED: MIDAZOLAM 2 MG/2 ML VIAL ONE (14:10)
[2022-06-13] MEDS ORDERED: LACTATED RINGERS 1,000 ML IV ONE (14:15)
[2022-06-13] MEDS ORDERED: LIDOCAINE 1%-EPI 1:100,000 20 ML VIAL SQ ONE (14:41)
--- NOTE | 2022-06-13 15:00 | P.OP ---
Date of Procedure: 06/13/22 Preoperative Diagnosis: Left hand osteomyelitis Postoperative Diagnosis: Same Procedure(s) Performed: Left hand irrigation and debridement, wound VAC placement Anesthesia: MAC Surgeon: Alicia Christina Estimated Blood Loss (ml): 2 Condition: stable Disposition: PACU Indications for Procedure: Lan has been dealing with this left hand osteomyelitis for quite a while now. We did a irrigation and debridement a couple days ago with a wound VAC placement. Today we are awaiting the wound and changing the wound VAC and doing a formal debridement. Description of Procedure: Patient, operative extremity, and procedure were identified in the preoperative holding area. After informed consent was obtained the patient was brought back to the operating room. The wound VAC was removed and the extremity was prepped and draped in normal sterile fashion. After formal timeout was performed 1% lidocaine was injected into the edges of the wound. There is no foul odor. The volar flap of the wound was necrotic and this was sharply removed with Littler scissors. There is a small area of fat necrosis along the volar aspect. About 3 x 5 x 2 mm of tissue was removed. This was removed sharply with a [place]. The dorsal aspect of the wound had good granulation tissue with healthy b leeding. There were no pockets of purulence found in the remainder of the wound looks stable without any additional signs of infection. The wound was then copiously irrigated with normal saline. A new wound VAC was placed with a black sponge cut to the shape of the wound and an additional circular piece to pad the attachment hose. Patient was aroused by the anesthesia team and brought back to PACU in stable condition. The wound seems to have stabilized from an infectious standpoint. We will now do serial VAC changes for the wound in hopes that it will granulate in.
[2022-06-13 15:05] LABS: Glucose,Whole Blood 193 mg/dL (70-110)
[2022-06-13 16:19] LABS: Glucose,Whole Blood 245 mg/dL (70-110)
[2022-06-13 20:08] LABS: Glucose,Whole Blood 431 mg/dL (70-110)
[2022-06-13] MEDS: allopurinoL 300 MG TAB PO SCH (21:25)
[2022-06-13] MEDS: LEVOTHYROXINE 100 MCG TAB PO SCH (21:25)
[2022-06-13] MEDS: ATORVASTATIN 40 MG TAB PO SCH (21:25)
[2022-06-13] MEDS: carvediloL 6.25 MG TAB PO SCH (21:26)
[2022-06-13] MEDS: INSULIN DETEMIR (LEVEMIR) 100 UNIT/ML SYR SQ SCH (21:26)
[2022-06-14 02:18] LABS: Glucose,Whole Blood 360 mg/dL (70-110)
[2022-06-14] MEDS: HYDROcodone/APAP 10-325MG 1 EACH TAB PO PRN ×4 (03:23→22:23)
[2022-06-14 06:51] LABS: Glucose,Whole Blood 248 mg/dL (70-110)
[2022-06-14] MEDS: AMPICILLIN-SULBACTAM 3 GM in SODIUM CHLORIDE 0.9% 100 ML IVPB SCH (08:45)
[2022-06-14] MEDS: INSULIN ASPART (NovoLOG) 100 UNIT/ML VIAL SQ SCH ×4 (08:45→22:23)
[2022-06-14] MEDS: hydrALAZINE HCL 50 MG TAB PO SCH ×3 (08:46→22:23)
[2022-06-14] MEDS: TORSEMIDE 20 MG TAB PO SCH (08:46)
[2022-06-14] MEDS: carvediloL 3.125 MG TAB PO SCH (08:46)
[2022-06-14] MEDS: CALCIUM CARB-MAG CARB-FOLIC 1 EACH TAB PO SCH ×3 (08:46→16:29)
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
[2022-06-14] MEDS: LACTULOSE 20 GM/30 ML CUP PO SCH (09:54)
--- NOTE | 2022-06-14 11:14 | P.PN ---
Subjective Patient is seen for follow-up for end-stage renal disease. Status post hemodialysis yesterday with UF of 4 L. Patient tolerated his treatment well. He is complaining of pain in his left hand at the site of the wound VAC. This is improved, status post further debridement yesterday Objective - Vital Signs Vital signs: Vital Signs Temp 97.5 F L 06/14/22 07:46 Pulse 75 06/14/22 07:46 Resp 16 06/14/22 07:46 BP 147/76 06/14/22 07:46 Pulse Ox 99 06/14/22 07:46 FiO2 Intake & Output 06/13/22 06/14/22 06/14/22 18:59 06:59 18:59 Intake Total 250 Output Total 0 Balance 250 Weight 144.696 kg Intake: IV 150 Intake, IV Titration 100 Amount Ampicillin-Sulbactam 3 gm 100 In Sodium Chloride 0.9% 100 ml @ 200 mls/hr IVPB Q24HR [facility] Rx#:[id number] Output: Estimated Blood Loss 0 Other: Voiding Method Toilet Urinal Urinal - Exam Awake, comfortable, not in any acute distress Alert oriented 3 Appears euvolemic [employer] exam grossly intact Wound VAC noted in the left left hand with multiple amputation of fingers on both hands. - Labs CBC & Chem 7: 06/10/22 06:38 06/10/22 06:38 Labs: Abnormal Lab Results - Last 24 Hours (Table) 06/13/22 06/13/22 06/13/22 Range/Units 15:02 16:17 19:59 POC Glucose (mg/dL) 193 H 245 H 431 H (70-110) mg/dL 06/14/22 06/14/22 Range/Units 02:16 06:49 POC Glucose (mg/dL) 360 H 248 H (70-110) mg/dL Microbiology - Last 24 Hours (Table) 06/09/22 06:50 Blood Culture - Preliminary Blood No Growth after 120 hours 06/09/22 07:05 Blood Culture - Preliminary Blood No Growth after 120 hours 06/10/22 17:32 Gram Stain - Final Hand - Left Wound Culture - Final Eikenella species 06/09/22 13:52 Gram Stain - Final Hand - Left Wound Culture - Final Eikenella species Staphylococcus aureus Assessment and Plan Assessment: 1. End-stage renal disease maintained on hemodialysis on Tuesday schedule via left upper extremity AV fistula. 2. Left hand infection/cellulitis on antibiotics per ID. status post debridement and wound VAC placement. 3. Chronic kidney disease mineral bone disease maintained on phosphate binders. Phosphorus 6.1 this admission. 4. Diabetes mellitus. 5. Anemia of chronic kidney disease. High ferritin noted. On Aranesp. Plan: Next hemodialysis on 06/15/2022 Antibiotics as per ID
--- NOTE | 2022-06-14 11:20 | P.CONS ---
History of Present Illness - Reason for Consult Consult date: 06/14/22 wound care - History of Present Illness This is a 61-year-old patient being seen on 4 S. for ulcerations to the right hand. Patient does have a wound VAC to the left hand. At this time there is no open ulcerations to the right hand. Patient does have 1 small ulceration to the left thumb which we will utilize honey gel. Review Of Systems: Constitutional: No fever, no chills, no night sweats. No weight change. No wea kness, fatigue or lethargy. No daytime sleepiness. Integumentary:reports wounds, no lesions. No rash or pruritus. No unusual bruising. No change in hair or nails. Physical exam: General Appearance: Alert, cooperative, no distress, appears stated age. Skin: See HPI all other Skin color, texture, tugor normal, no rashes or lesions. Neurologic: Alert oriented x3 Assessment: 1. Abrasions to right and left hand 2. Diabetes with skin ulceration Plan: 1. Apply honey gel to open ulcerations as needed may apply a Band-Aid to the site as needed. Thank you for the consultation any questions please contact the wound care center DNP note has been reviewed and discussed with Dr. Lucas and the impression and plan of care has been directed as dictated. Past Medical History Past Medical History: Coronary Artery Disease (CAD), Cancer, Heart Failure, CVA/TIA, Diabetes Mellitus, Eye Disorder, Hypertension, Myocardial Infarction (SD), Renal Disease, Sleep Apnea/CPAP/BIPAP, Thyroid Disorder Additional Past Medical History / Comment(s): unhealing sore left index finger, neuropathy bilateral lower extremity/feet, bilateral eye diabetic retinopathy/poor vision/multiple injections, ESRD with hemodialysis T/TH/SAT from 6:15 to 11:00, anemia, "mini strokes" x2, AVANI with CPap use, occasional low back pain/disc disease, gout, hypothyroid Last Myocardial Infarction Date:: 10/20/20 History of Any Multi-Drug Resistant Organisms: MRSA Year Discovered:: 12/10/21 MDRO Source:: Finger-Right 5th Past Surgical History: Adenoidectomy, Bariatric Surgery, Cholecystectomy, Heart Catheterization, Heart Catheterization With Stent, Orthopedic Surgery, Tonsillectomy Additional Past Surgical History / Comment(s): 10/22/20 PCI with stents x2, lap banding, FX of right ankle repair pins / plate, fistual lt arm jul 2018, lt shoulder sx (d/t separation), colonoscopies, bilateral cataract removals/lens implants. LIF surgery 08/11/21 Past Anesthesia/Blood Transfusion Reactions: Motion Sickness Additional Past Anesthesia/Blood Transfusion Reaction / Comm: CLAUSTERPHOBIA Date of Last Stent Placement:: 10/22/20 Past Psychological History: Anxiety Smoking Status: Former smoker Past Alcohol Use History: None Reported Past Drug Use History: None Reported - Past Family History Mother History Unknown: Yes Family Medical History: Coronary Artery Disease (CAD), Myocardial Infarction (SD) Additional Family Medical History / Comment(s): Mother at age 58 from multiple sclerosis Father Family Medical History: CVA/TIA, Myocardial Infarction (SD) Additional Family Medical History / Comment(s): Father had history of SD and CVA followed by a second SD and CVA and at age 65. Brother(s) Additional Family Medical History / Comment(s): . Medications and Allergies Home Medications Medication Instructions Recorded Confirmed Type Levothyroxine Sodium 100 mcg PO HS 07/06/17 06/09/22 History Torsemide [Demadex] 40 mg PO DAILY 09/10/19 06/09/22 History Bryanna-Olimpia 1 tab PO DAILY 10/20/20 06/09/22 History HYDROcodone/APAP 10-325MG [[place] 1 tab PO QID PRN 11/24/20 06/09/22 History 10-325] Insulin Regular, Human [Novolin R 30 unit SQ ACHS PRN 11/24/20 06/09/22 History Flexpen] Insulin Detemir [Levemir Flextouch 60 units SQ HS 02/05/21 06/09/22 History Pen] Calcium Acetate [PhosLo] 1,334 mg PO BID-W/MEALS 03/11/21 06/09/22 History LORazepam [Ativan] 0.5 mg PO TID PRN 03/11/21 06/09/22 History Nitroglycerin Sl Tabs [Nitrostat] 0.4 mg SL Q5M PRN 03/11/21 06/09/22 History Lactulose 30 gm PO DAILY PRN 09/06/21 06/09/22 History carvediloL [Coreg] 3.125 mg PO QAM 12/08/21 06/09/22 History carvediloL [Coreg] 6.25 mg PO HS 12/08/21 06/09/22 History metroNIDAZOLE [Flagyl] 500 mg PO TID 06/09/22 06/09/22 History Allergies Allergy/AdvReac Type Severity Reaction Status Date / Time No Known Allergies Allergy Verified 06/09/22 09:52 Physical Exam Vitals: Vital Signs Temp Pulse Resp BP Pulse Ox 06/14/22 07:46 97.5 F L 75 16 147/76 99 06/14/22 02:00 97.9 F 82 145/74 100 06/13/22 19:55 98.6 F 82 17 178/81 100 06/13/22 15:11 77 16 159/64 99 06/13/22 14:56 96.8 F L 73 16 157/67 100 06/13/22 14:00 97.7 F 80 17 167/84 99 Intake and Output 06/13/22 06/14/22 06/14/22 22:59 06:59 14:59 Intake Total 50 Balance 50 Intake: IV 50 Other: Voiding Method Toilet Urinal Urinal Weight 144.696 kg Results CBC & Chem 7: 06/10/22 06:38 06/10/22 06:38 Labs: Abnormal Lab Results - Last 24 Hours (Table) 06/13/22 06/13/22 06/13/22 Range/Units 15:02 16:17 19:59 POC Glucose (mg/dL) 193 H 245 H 431 H (70-110) mg/dL 06/14/22 06/14/22 Range/Units 02:16 06:49 POC Glucose (mg/dL) 360 H 248 H (70-110) mg/dL Microbiology - Last 24 Hours (Table) 06/09/22 06:50 Blood Culture - Preliminary Blood No Growth after 120 hours 06/09/22 07:05 Blood Culture - Preliminary Blood No Growth after 120 hours 06/10/22 17:32 Gram Stain - Final Hand - Left Wound Culture - Final Eikenella species 06/09/22 13:52 Gram Stain - Final Hand - Left Wound Culture - Final Eikenella species Staphylococcus aureus Assessment and Plan (1) Abrasion hand Current Visit: Yes Status: Acute Code(s): S60.519A - ABRASION OF UNSPECIFIED HAND, INITIAL ENCOUNTER SNOMED Code(s): 798562601 (2) Type 2 diabetes mellitus with other skin ulcer Current Visit: Yes Status: Acute Code(s): E11.622 - TYPE 2 DIABETES MELLITUS WITH OTHER SKIN ULCER; L98.499 - NON-PRESSURE CHRONIC ULCER OF SKIN OF SITES W UNSP SEVERITY SNOMED Code(s): 304698032
[2022-06-14 11:23] LABS: Glucose,Whole Blood 328 mg/dL (70-110)
--- NOTE | 2022-06-14 12:17 | P.PN ---
Subjective Progress Note Date: 06/14/22 Principal diagnosis: Status post I&D with wound vac application left hand This is a 61 year-old male post left hand I&D with wound vac application x2. This is post-op day 1. The patient was evaluated at the bedside this morning. The patient denies nausea, vomiting, abdominal pain, chest pain, or shortness of breath this morning. He states his pain is controlled at this time. The wound vac is putting out scant bloody drainage. He is currently on Unasyn per infectious disease. Objective - Vital Signs Vital signs: Vital Signs Temp 97.5 F L 06/14/22 07:46 Pulse 75 06/14/22 07:46 Resp 16 06/14/22 07:46 BP 147/76 06/14/22 07:46 Pulse Ox 99 06/14/22 07:46 FiO2 Intake & Output 06/13/22 06/14/22 06/14/22 18:59 06:59 18:59 Intake Total 250 Output Total 0 Balance 250 Weight 144.696 kg Intake: IV 150 Intake, IV Titration 100 Amount Ampicillin-Sulbactam 3 gm 100 In Sodium Chloride 0.9% 100 ml @ 200 mls/hr IVPB Q24HR [facility] Rx#:[id number] Output: Estimated Blood Loss 0 Other: Voiding Method Toilet Urinal Urinal - Exam The patient is a 61 y/o male in no acute distress. He is alert and oriented x3. Exam of the left hand reveals a wound vac in place with a good seal. Scant bloody drainage in the canister. No new numbness or tingling. Circulatory status is intact. - Labs CBC & Chem 7: 06/10/22 06:38 06/10/22 06:38 Labs: Abnormal Lab Results - Last 24 Hours (Table) 06/13/22 06/13/22 06/13/22 Range/Units 15:02 16:17 19:59 POC Glucose (mg/dL) 193 H 245 H 431 H (70-110) mg/dL 06/14/22 06/14/22 06/14/22 Range/Units 02:16 06:49 11:20 POC Glucose (mg/dL) 360 H 248 H 328 H (70-110) mg/dL Microbiology - Last 24 Hours (Table) 06/09/22 06:50 Blood Culture - Preliminary Blood No Growth after 120 hours 06/09/22 07:05 Blood Culture - Preliminary Blood No Growth after 120 hours 06/10/22 17:32 Gram Stain - Final Hand - Left Wound Culture - Final Eikenella species 06/09/22 13:52 Gram Stain - Final Hand - Left Wound Culture - Final Eikenella species Staphylococcus aureus Assessment and Plan (1) Cellulitis of right hand Current Visit: Yes Status: Acute Code(s): L03.113 - CELLULITIS OF RIGHT UPPER LIMB SNOMED Code(s): 48986192 (2) Infected hand Current Visit: Yes Status: Acute Code(s): L08.9 - LOCAL INFECTION OF THE SKIN AND SUBCUTANEOUS TISSUE, UNSP SNOMED Code(s): 263293691 (3) Chronic kidney disease Current Visit: No Status: Acute Code(s): N18.9 - CHRONIC KIDNEY DISEASE, UNSPECIFIED SNOMED Code(s): 202566921 (4) Congestive heart failure Current Visit: No Status: Acute Code(s): I50.9 - HEART FAILURE, UNSPECIFIED SNOMED Code(s): 90440994 Plan: The clinical and x-ray findings were discussed with the patient. The case was discussed at length with Dr. Christina. Continue wound vac to the left hand. Continue IV antibiotics per infectious disease. Pain control as needed. The patient will be set up for wound care at [facility] as an outpatient. He will follow up with us on an as needed basis. We will sign off at this time.
--- NOTE | 2022-06-14 12:32 | CDI ---
Documentation Clarification Form Date: 06/14/2022 12:20:31 PM From: Berta Corbin RN CCDS Admit Date: 06/09/2022 08:34:00 AM Patient Name: Lan Tillman Visit Number: [id number] Discharge Date: ATTENTION: The Clinical Documentation Specialists (CDI) and [facility] Coding Staff appreciate your assistance in clarifying documentation. Please respond to the clarification below the line at the bottom and electronically sign. The CDI & [facility] Coding staff will review the response and follow-up if needed. Please note: Queries are made part of the Legal Health Record. If you have any questions, please contact the author of this message via ITS. Dr. Alicia Florence debridement is documented 06/13, Procedure note. Additional clarification regarding the procedure is requested. History/Risk Factors: 61-year-old male presents to the ED with left had wound that has had multiple amputations of the fingers last surgery was last week and having increasing drainage with odor. Medical History: ESRD, Hemodialysis and DM. H&P, 06/09. Clinical Indicators: 06/13, Procedure: Left hand irrigation and debridement, wound VAC placement. The volar flap of the wound was necrotic and this was sharply removed with Littler scissors. There is a small area of fat necrosis along the volar aspect. About 3 x 5 x 2 mm of tissue was removed. This was removed sharply with a [place]. A new wound VAC was placed. Treatment: Debridement see above, Wound VAC, 06/11 Ampicillin Sodium / Sulbactam Sodium 3gm IVPB Q24HR. Please clarify the type of procedure performed: [ x] Excisional debridement (the removal of necrotic, devitalized tissue or slough by means of cutting away of tissue) [ ] Non-excisional debridement (the removal of necrotic, devitalized tissue or slough by means of flushing, brushing, or washing. (Irrigation) [ ] Other; please specify [ ] Unable to determine Five elements required for accurate and compliant documentation of a debridement: Technique used (e.g., excisional, excised, cutting, brushing, jet lavage etc.) Instrument(s) used (e.g., scalpel, curette, etc.) Nature of the tissue removed (e.g., necrotic, devitalized tissues, non-viable tissue, etc.) Appearance and size of the wound (e.g., down to fresh bleeding tissue, 7cm x 10cm, etc.) Depth of the debridement* (e.g., skin, subcutaneous tissue, fascia, muscle, bone, etc.) (Template Last Revised: November 2020) NGAD
[2022-06-14 16:55] LABS: Glucose,Whole Blood 333 mg/dL (70-110)
[2022-06-14] MEDS ORDERED: INSULIN DETEMIR (LEVEMIR) 100 UNIT/ML SYR SQ SCH (21:00)
[2022-06-14 22:13] LABS: Glucose,Whole Blood 304 mg/dL (70-110)
[2022-06-14] MEDS: allopurinoL 300 MG TAB PO SCH (22:23)
[2022-06-14] MEDS: ATORVASTATIN 40 MG TAB PO SCH (22:23)
[2022-06-14] MEDS: carvediloL 6.25 MG TAB PO SCH (22:23)
[2022-06-14] MEDS: LEVOTHYROXINE 100 MCG TAB PO SCH (22:23)
[2022-06-15] MEDS: HYDROcodone/APAP 10-325MG 1 EACH TAB PO PRN ×2 (04:50→13:41)
[2022-06-15 07:10] LABS: Glucose,Whole Blood 170 mg/dL (70-110)
[2022-06-15] MEDS: HYDROmorphone 0.5 MG/0.5 ML SYRINGE IVP PRN (08:05)
[2022-06-15] MEDS: hydrALAZINE HCL 50 MG TAB PO SCH (08:07)
[2022-06-15] MEDS: CALCIUM ACETATE 667 MG TAB PO SCH ×2 (08:07→13:22)
[2022-06-15] MEDS: INSULIN ASPART (NovoLOG) 100 UNIT/ML VIAL SQ SCH ×2 (08:07→13:22)
[2022-06-15] MEDS: AMPICILLIN-SULBACTAM 3 GM in SODIUM CHLORIDE 0.9% 100 ML IVPB SCH (08:08)
[2022-06-15] MEDS: carvediloL 3.125 MG TAB PO SCH (08:08)
[2022-06-15] MEDS: TORSEMIDE 20 MG TAB PO SCH (08:08)
[2022-06-15] MEDS: LACTULOSE 20 GM/30 ML CUP PO SCH (08:09)
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
--- NOTE | 2022-06-15 10:12 | P.PN ---
Subjective Progress Note Date: 06/15/22 Principal diagnosis: Status post I&D with wound vac application left hand This is a 61 year-old male post left hand I&D with wound vac application x2. This is post-op day 2. The patient was evaluated at the bedside this morning. The patient denies nausea, vomiting, abdominal pain, chest pain, or shortness of breath this morning. He states his pain is controlled at this time. The wound vac is putting out scant bloody drainage. He is currently on Unasyn per infectious disease. Objective - Vital Signs Vital signs: Vital Signs Temp 98.1 F 06/15/22 07:43 Pulse 73 06/15/22 07:43 Resp 18 06/15/22 07:43 BP 134/72 06/15/22 07:43 Pulse Ox 99 06/15/22 07:43 FiO2 Intake & Output 06/14/22 06/15/22 06/15/22 18:59 06:59 18:59 Intake Total 240 300 120 Output Total 600 400 Balance -360 -100 120 Intake: Oral 240 300 120 Output: Urine 600 400 Other: Voiding Method Urinal Urinal # Voids 1 # Bowel Movements 0 - Exam The patient is a 61 y/o male in no acute distress. He is alert and oriented x3. Exam of the left hand reveals a wound vac in place with a good seal. Scant bloody drainage in the canister. No new numbness or tingling. Circulatory status is intact. - Labs CBC & Chem 7: 06/10/22 06:38 06/10/22 06:38 Labs: Abnormal Lab Results - Last 24 Hours (Table) 06/14/22 06/14/22 06/14/22 Range/Units 11:20 16:53 22:12 POC Glucose (mg/dL) 328 H 333 H 304 H (70-110) mg/dL 06/15/22 Range/Units 07:08 POC Glucose (mg/dL) 170 H (70-110) mg/dL Microbiology - Last 24 Hours (Table) 06/09/22 06:50 Blood Culture - Final Blood No Growth after 144 hours 06/09/22 07:05 Blood Culture - Final Blood No Growth after 144 hours Assessment and Plan (1) Cellulitis of right hand Current Visit: Yes Status: Acute Code(s): L03.113 - CELLULITIS OF RIGHT UPPER LIMB SNOMED Code(s): 61309892 (2) Infected hand Current Visit: Yes Status: Acute Code(s): L08.9 - LOCAL INFECTION OF THE SKIN AND SUBCUTANEOUS TISSUE, UNSP SNOMED Code(s): 360200069 (3) Chronic kidney disease Current Visit: No Status: Acute Code(s): N18.9 - CHRONIC KIDNEY DISEASE, UNSPECIFIED SNOMED Code(s): 878120952 (4) Congestive heart failure Current Visit: No Status: Acute Code(s): I50.9 - HEART FAILURE, UNSPECIFIED SNOMED Code(s): 88197508 Plan: The clinical and x-ray findings were discussed with the patient. The case was discussed at length with Dr. Christina. Continue wound vac to the left hand. Continue IV antibiotics per infectious disease. Pain control as needed. The patient will be set up for wound care at [facility] as an outpatient with Dr. Madera. He will follow up with us on an as needed basis. We will sign off at this time.
--- NOTE | 2022-06-15 10:18 | PN ---
PROGRESS NOTE SUBJECTIVE: This 61-year-old gentleman, who was admitted with significant infection of left hand, had surgery and wound VAC placement. No chest pain. No palpitations. The patient is on IV antibiotics. Dialysis has planned tomorrow. OBJECTIVE: VITAL SIGNS: Pulse 75, blood pressure 147/72, respirations 16. HEENT: Conjunctivae normal. NECK: No JVD. CARDIOVASCULAR: S1, S2. RESPIRATION: Breath sounds diminished at the bases. ABDOMEN: Soft. EXTREMITIES: Left hand wound and status post wound VAC. LABORATORY DATA: Accu-Cheks noted. ASSESSMENT: 1. Left hand wound infection, status post debridement and wound VAC placement with methicillin-sensitive Staphylococcus aureus. 2. Coronary artery disease, congestive heart failure. 3. Chronic renal failure, on hemodialysis. 4. Multiple medical issues. RECOMMENDATIONS: I recommend to continue current medications and symptomatic treatment. Otherwise, at this time, I would recommend repeat labs and continue the antibiotics. See orders for further details. Further recommendations to follow. MMODL / IJN: [id number] /
[2022-06-15 10:36] LABS: Basophils # (A) 0.05 X 10*3/uL (0.00-0.10); Basophils % (A) 0.6 %; Eosinophils # (A) 0.36 X 10*3/uL (0.04-0.35); Eosinophils % (A) 4.1 %; HCT 26.3 % (39.6-50.0); HGB 8.5 g/dL (13.0-17.0); Immature Grans, Automated 0.7 %; Lymphocytes # (A) 1.25 X 10*3/uL (0.90-5.00); Lymphocytes % (A) 14.4 %; MCH 31.6 pg (27.0-32.0); MCHC 32.3 g/dL (32.0-37.0); MCV 97.8 fL (80.0-97.0); Mean Platelet Volume 9.5 fL (9.5-12.2); Monocytes # (A) 0.44 X 10*3/uL (0.20-1.00); Monocytes % (A) 5.1 %; NRBC Per 100 WBC 0 /100 WBCS (0.0-0.0); Neutrophils # (A) 6.54 X 10*3/uL (1.80-7.70); Neutrophils % (A) 75.1 %; Platelet Count 148 X 10*3/uL (140-440); RBC 2.69 X 10*6/uL (4.40-5.60); RDW 14.8 % (11.5-14.5)
[2022-06-15 11:24] LABS: Glucose,Whole Blood 218 mg/dL (70-110)
[2022-06-15 11:28] LABS: Anion Gap 18.2 mmol/L (10.00-18.00); BUN/Creat Ratio 8.51 Ratio (12.00-20.00); Blood Urea Nitrogen 64.7 mg/dL (9.0-27.0); Calcium 8.9 mg/dL (8.7-10.3); Carbon Dioxide 20.8 mmol/L (20.0-27.5); Potassium 5.5 mmol/L (3.5-5.5)
[2022-06-15 13:27] LABS: African American GFR (CKD) 8.1 (60.0-200.0)
[2022-06-15 14:08] VITALS: BP 151/69; PULSE 78; RESP 19; TEMP 97.8
--- NOTE | 2022-06-16 16:26 | DS ---
DISCHARGE SUMMARY FINAL DIAGNOSES: 1. Left hand wound infection, status post debridement, wound VAC placement, with methicillin-susceptible Staphylococcus aureus. 2. Coronary artery disease, congestive heart failure. 3. Chronic renal failure, on hemodialysis. 4. Multiple medical issues. DISCHARGE DISPOSITION: The patient will be discharged in stable condition. Guarded prognosis. HISTORY OF PRESENT ILLNESS: This 61-year-old gentleman admitted with significant infection of the left hand, had debridement, wound VAC placement. Nephrology saw the patient. Dialysis continued. Infectious Disease saw the patient. Patient is being discharged in stable condition. Guarded prognosis. PHYSICAL EXAMINATION: VITAL SIGNS: Stable. CARDIOVASCULAR: S1, S2. ABDOMEN: Soft. NERVOUS SYSTEM: Nonfocal. DISCHARGE ADVICE AND MEDICATIONS: Resume home medications plus Lipitor 40 mg and Zyloprim 300 mg at bedtime and antibiotics per Dr. Madera. Follow up with Dr. Oshea and Dr. Christina and Nephrology as recommended. Monitor blood sugars closely at home. MMODL / IJN: [id number] / MTDD
--- NOTE | 2022-06-17 11:06 | CDI ---
Documentation Clarification Form Date: 06/17/2022 10:50:00 AM From: Domitila Treviño Admit Date: 06/09/2022 08:34:00 AM Patient Name: Lan Tillman Visit Number: [id number] Discharge Date: 06/15/2022 03:11:00 PM ATTENTION: The Clinical Documentation Specialists (CDI) and [facility] Coding Staff appreciate your assistance in clarifying documentation. Please respond to the clarification below the line at the bottom and electronically sign. The CDI & [facility] Coding staff will review the response and follow-up if needed. Please note: Queries are made part of the Legal Health Record. If you have any questions, please contact the author of this message via ITS. Dr. Alicia Christina Conflicting documentation has been found in the medical record. As surgeon, please provide clarification. Per PN's 06/09-06/15 documentation of cellulitis right hand with irrigation and debridement of left hand. 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 Tana, [place] and Charli Please clarify which diagnosis is most appropriate: [ ] Left hand cellulitis [ x] Right hand cellulitis [ ] Other (please specify) [ ] Unable to determine MTDD
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
== END 2022-06-15 15:11 | disposition home health service (06) | DRG 513 ==
LOC: EC 06:27 → 4SSUR 08:34
PROVIDERS: ADMIT Internal Medicine; ATTEND Internal Medicine
PROC: 5A1D70Z Performance of Urinary Filtration, Intermittent, Less than 6 Hours Per Day (ICD-10-PCS; 2022-06-10)
PROC: 0PBV0ZZ Excision of Left Finger Phalanx, Open Approach (ICD-10-PCS; principal; 2022-06-10 16:30)
PROC: 0PBQ0ZZ Excision of Left Metacarpal, Open Approach (ICD-10-PCS; principal; 2022-06-10 16:30)
PROC: 0JBK0ZZ Excision of Left Hand Subcutaneous Tissue and Fascia, Open Approach (ICD-10-PCS; 2022-06-13)
DX: T87.42 Infection of amputation stump, left upper extremity (principal); N18.6 End stage renal disease; I13.2 Hypertensive heart and chronic kidney disease with heart failure and with stage 5 chronic kidney disease, or end stage renal disease; M86.142 Other acute osteomyelitis, left hand; Z68.41 Body mass index [BMI] 40.0-44.9, adult; L03.113 Cellulitis of right upper limb; B95.61 Methicillin susceptible Staphylococcus aureus infection as the cause of diseases classified elsewhere; E83.9 Disorder of mineral metabolism, unspecified; D63.1 Anemia in chronic kidney disease; E03.9 Hypothyroidism, unspecified; E11.22 Type 2 diabetes mellitus with diabetic chronic kidney disease; E11.319 Type 2 diabetes mellitus with unspecified diabetic retinopathy without macular edema; E11.42 Type 2 diabetes mellitus with diabetic polyneuropathy; E11.622 Type 2 diabetes mellitus with other skin ulcer; E11.69 Type 2 diabetes mellitus with other specified complication; E66.9 Obesity, unspecified; S60.519A Abrasion of unspecified hand, initial encounter; I25.10 Atherosclerotic heart disease of native coronary artery without angina pectoris; G47.33 Obstructive sleep apnea (adult) (pediatric); M10.9 Gout, unspecified; T23.022D Burn of unspecified degree of single left finger (nail) except thumb, subsequent encounter; Z95.5 Presence of coronary angioplasty implant and graft; Z99.2 Dependence on renal dialysis; I25.2 Old myocardial infarction; I50.9 Heart failure, unspecified; H54.7 Unspecified visual loss; Z86.73 Personal history of transient ischemic attack (TIA), and cerebral infarction without residual deficits; L98.499 Non-pressure chronic ulcer of skin of other sites with unspecified severity; Z79.4 Long term (current) use of insulin; Z79.82 Long term (current) use of aspirin; Z79.899 Other long term (current) drug therapy; Z82.0 Family history of epilepsy and other diseases of the nervous system; Z82.3 Family history of stroke; Z82.49 Family history of ischemic heart disease and other diseases of the circulatory system; Z87.891 Personal history of nicotine dependence; Z98.84 Bariatric surgery status
CPT/HCPCS: 36415; 78315; 80048; 80053; 82728; 83036; 83540; 83550; 83605; 83735; 84100; 85025; 86140; 87040; 87070; 87075; 87077; 87186; 87205; 90935; 96365; 99285

== ENCOUNTER 2022-08-07 09:36 | Inpatient (IN) | payer MEDICARE, BC ==
[2022-08-07 09:54] LABS: Glucose,Whole Blood 224 mg/dL (70-110)
--- NOTE | 2022-08-07 10:23 | ED ---
General Adult HPI - General Chief complaint: Chest Pain Stated complaint: Chest Pain Time Seen by Provider: 08/07/22 09:49 Source: EMS Mode of arrival: EMS Limitations: no limitations - History of Present Illness Initial comments: Dictation was produced using [employer] dictation software. please excuse any grammatical, word or spelling errors. Chief Complaint: 62-year-old male presents emergency department for chest pressure History of Present Illness: Patient 62-year-old male is been having intermittent bouts of chest pressure for the last 48-72 hours. He went to dialysis today and began experiencing chest pressure during the treatment. Patient states that he did not get a full treatment and EMS was called and he was brought to the ER. Patient is a history of heart attacks. He has significant cardiac history. Patient states that his symptoms do not feel like previous heart attack. No exacerbating or remitting factors. No associated nausea or diaphoresis. Nonradiating. The ROS documented in this emergency department record has been reviewed and confirmed by me. Those systems with pertinent positive or negative responses have been documented in the HPI. All other systems are other negative and/or noncontributory. PHYSICAL EXAM: General Impression: Alert and oriented x3, not in acute distress HEENT: Normocephalic atraumatic, extra-ocular movements intact, pupils equal and reactive to light bilaterally, mucous membranes moist. Cardiovascular: Heart regular rate and rhythm Chest: Able to complete full sentences, no retractions, no tachypnea Abdomen: abdomen soft, non-tender, non-distended, no organomegaly Musculoskeletal: Pulses present and equal in all extremities, no peripheral edema Motor: no focal deficits noted Neurological: CN II-XII grossly intact, no focal motor or sensory deficits noted Skin: Intact with no visualized rashes Psych: Normal affect and mood ED course: 62-year-old male presents emergency department for atypical chest pain typical features. Patient is high risk due to his comorbidities, age and history of coronary artery disease. Vital signs upon arrival are mildly h ypertensive with the blood pressure to 1/97. EKG does not show any signs of ischemia infarction. Chart review was performed Laboratory evaluation obtained. CBC, coag panel is unremarkable. Metabolic panel shows findings within acceptable limits. Troponin is 0.018. Abdominal labs negative. Chest x-ray nonacute. Patient reevaluated bedside at 1120 and found to be stable medical condition. Physical presentation concerning for acute coronary syndrome. Patient be admitted for cardiac monitoring, cardiology consultation. Patient given aspirin. Nephrology consulted for ESRD. My EKG interpretation: Ventricular rate 92, sinus rhythm,. Interval 152, care is 100, QTC 425. No TX prolongation, no QTC prolongation, no ST or T-wave changes noted. Overall, this EKG is unremarkable Critical Care: Yes Critical Care time: 33 - Related Data Home Medications Medication Instructions Recorded Confirmed Levothyroxine Sodium 100 mcg PO HS 07/06/17 06/09/22 Torsemide [Demadex] 40 mg PO DAILY 09/10/19 06/09/22 Bryanna-Olimpia 1 tab PO DAILY 10/20/20 06/09/22 HYDROcodone/APAP 10-325MG [[place] 1 tab PO QID PRN 11/24/20 06/09/22 10-325] Insulin Regular, Human [Novolin R 30 unit SQ ACHS PRN 11/24/20 06/09/22 Flexpen] Insulin Detemir [Levemir Flextouch 60 units SQ HS 02/05/21 06/09/22 Pen] Calcium Acetate [PhosLo] 1,334 mg PO BID-W/MEALS 03/11/21 06/09/22 LORazepam [Ativan] 0.5 mg PO TID PRN 03/11/21 06/09/22 Nitroglycerin Sl Tabs [Nitrostat] 0.4 mg SL Q5M PRN 03/11/21 06/09/22 Lactulose 30 gm PO DAILY PRN 09/06/21 06/09/22 carvediloL [Coreg] 3.125 mg PO QAM 12/08/21 06/09/22 carvediloL [Coreg] 6.25 mg PO HS 12/08/21 06/09/22 metroNIDAZOLE [Flagyl] 500 mg PO TID 06/09/22 06/09/22 Previous Rx's Medication Instructions Recorded Atorvastatin [Lipitor] 40 mg PO HS #30 tab 06/15/22 allopurinoL [Zyloprim] 300 mg PO HS #30 tab 06/15/22 Allergies Allergy/AdvReac Type Severity Reaction Status Date / Time No Known Allergies Allergy Verified 08/07/22 09:48 Review of Systems ROS Statement: Those systems with pertinent positive or pertinent negative responses have been documented in the HPI. ROS Other: All systems not noted in ROS Statement are negative. Past Medical History Past Medical History: Coronary Artery Disease (CAD), Cancer, Heart Failure, CVA/TIA, Diabetes Mellitus, Eye Disorder, Hypertension, Myocardial Infarction ([place]), Renal Disease, Sleep Apnea/CPAP/BIPAP, Thyroid Disorder Additional Past Medical History / Comment(s): unhealing sore left index finger, neuropathy bilateral lower extremity/feet, bilateral eye diabetic retinopathy/poor vision/multiple injections, ESRD with hemodialysis T//SAT from 6:15 to 11:00, anemia, "mini strokes" x2, AVANI with CPap use, occasional low back pain/disc disease, gout, hypothyroid Last Myocardial Infarction Date:: 10/20/20 History of Any Multi-Drug Resistant Organisms: MRSA Date of last positivie culture/infection: 12/10/21 MDRO Source:: Finger-Right 5th Past Surgical History: Adenoidectomy, Bariatric Surgery, Cholecystectomy, Heart Catheterization, Heart Catheterization With Stent, Orthopedic Surgery, Tonsillectomy Additional Past Surgical History / Comment(s): 10/22/20 PCI with stents x2, lap banding, FX of right ankle repair pins / plate, fistual lt arm jul 2018, lt shoulder sx (d/t separation), colonoscopies, bilateral cataract removals/lens implants. LIF surgery 08/11/21 Past Anesthesia/Blood Transfusion Reactions: Motion Sickness Additional Past Anesthesia/Blood Transfusion Reaction / Comment(s): CLAUSTERPHOBIA Date of Last Stent Placement:: 10/22/20 Past Psychological History: Anxiety Smoking Status: Former smoker Past Alcohol Use History: None Reported Past Drug Use History: None Reported - Past Family History Mother History Unknown: Yes Family Medical History: Coronary Artery Disease (CAD), Myocardial Infarction ([place]) Additional Family Medical History / Comment(s): Mother at age 58 from multiple sclerosis Father Family Medical History: CVA/TIA, Myocardial Infarction ([place]) Additional Family Medical History / Comment(s): Father had history of [place] and CVA followed by a second [place] and CVA and at age 65. Brother(s) Additional Family Medical History / Comment(s): . General Exam Limitations: no limitations Course Vital Signs 08/07/22 09:45 Temperature 98.3 F Pulse Rate 91 Respiratory 20 Rate Blood Pressure 201/97 O2 Sat by Pulse 100 Oximetry Medical Decision Making - Lab Data Result diagrams: 08/07/22 10:15 08/07/22 10:15 Lab Results 08/07/22 08/07/22 08/07/22 Range/Units 09:51 10:15 10:15 WBC 9.2 (3.8-10.6) k/uL RBC 3.28 L (4.30-5.90) m/uL Hgb 10.7 L (13.0-17.5) gm/dL Hct 30.9 L (39.0-53.0) % MCV 94.2 (80.0-100.0) fL MCH 32.6 (25.0-35.0) pg MCHC 34.6 (31.0-37.0) g/dL RDW 15.0 (11.5-15.5) % Plt Count 169 (150-450) k/uL MPV 8.4 Neutrophils % 80 % Lymphocytes % 12 % Monocytes % 3 % Eosinophils % 2 % Basophils % 1 % Neutrophils # 7.4 (1.3-7.7) k/uL Lymphocytes # 1.1 (1.0-4.8) k/uL Monocytes # 0.3 (0-1.0) k/uL Eosinophils # 0.2 (0-0.7) k/uL Basophils # 0.0 (0-0.2) k/uL PT 10.5 (9.0-12.0) sec INR 1.0 (<1.2) APTT 25.5 (22.0-30.0) sec Sodium (137-145) mmol/L Potassium (3.5-5.1) mmol/L Chloride (98-107) mmol/L Carbon Dioxide (22-30) mmol/L Anion Gap mmol/L BUN (9-20) mg/dL Creatinine (0.66-1.25) mg/dL Est GFR (CKD-EPI)AfAm (>60 ml/min/1.73 sqM) Est GFR (CKD-EPI)NonAf (>60 ml/min/1.73 sqM) Glucose (74-99) mg/dL POC Glucose (mg/dL) 224 H (70-110) mg/dL POC Glu Dye Range Operator Cloth ID Gauri Rodriguez Calcium (8.4-10.2) mg/dL Total Bilirubin (0.2-1.3) mg/dL AST (17-59) U/L ALT (4-49) U/L Alkaline Phosphatase (38-126) U/L Troponin I (0.000-0.034) ng/mL Total Protein (6.3-8.2) g/dL Albumin (3.5-5.0) g/dL 08/07/22 08/07/22 Range/Units 10:15 10:15 WBC (3.8-10.6) k/uL RBC (4.30-5.90) m/uL Hgb (13.0-17.5) gm/dL Hct (39.0-53.0) % MCV (80.0-100.0) fL MCH (25.0-35.0) pg MCHC (31.0-37.0) g/dL RDW (11.5-15.5) % Plt Count (150-450) k/uL MPV Neutrophils % % Lymphocytes % % Monocytes % % Eosinophils % % Basophils % % Neutrophils # (1.3-7.7) k/uL Lymphocytes # (1.0-4.8) k/uL Monocytes # (0-1.0) k/uL Eosinophils # (0-0.7) k/uL Basophils # (0-0.2) k/uL PT (9.0-12.0) sec INR (<1.2) APTT (22.0-30.0) sec Sodium 135 L (137-145) mmol/L Potassium 3.5 (3.5-5.1) mmol/L Chloride 97 L (98-107) mmol/L Carbon Dioxide 28 (22-30) mmol/L Anion Gap 10 mmol/L BUN 30 H (9-20) mg/dL Creatinine 4.25 H (0.66-1.25) mg/dL Est GFR (CKD-EPI)AfAm 16 (>60 ml/min/1.73 sqM) Est GFR (CKD-EPI)NonAf 14 (>60 ml/min/1.73 sqM) Glucose 224 H (74-99) mg/dL POC Glucose (mg/dL) (70-110) mg/dL POC Glu Dye Range Operator Cloth ID Calcium 8.4 (8.4-10.2) mg/dL Total Bilirubin 0.4 (0.2-1.3) mg/dL AST 25 (17-59) U/L ALT 15 (4-49) U/L Alkaline Phosphatase 110 (38-126) U/L Troponin I 0.018 (0.000-0.034) ng/mL Total Protein 6.1 L (6.3-8.2) g/dL Albumin 3.3 L (3.5-5.0) g/dL Disposition Clinical Impression: ACS (acute coronary syndrome) Disposition: ADMITTED IP TO THIS HOSP Condition: Fair Referrals: Hayes Oshea MD [Primary Care Provider] - 1-2 days Time of Disposition: 11:24
[2022-08-07 10:27] LABS: Basophils % (A) 1 %; Eosinophils # (A) 0.2 k/uL (0-0.7); Eosinophils % (A) 2 %; HCT 30.9 % (39.0-53.0); HGB 10.7 gm/dL (13.0-17.5); Lymphocytes # (A) 1.1 k/uL (1.0-4.8); Lymphocytes % (A) 12 %; MCH 32.6 pg (25.0-35.0); MCHC 34.6 g/dL (31.0-37.0); MCV 94.2 fL (80.0-100.0); Mean Platelet Volume 8.4; Monocytes # (A) 0.3 k/uL (0-1.0); Monocytes % (A) 3 %; Neutrophils # (A) 7.4 k/uL (1.3-7.7); Neutrophils % (A) 80 %; Platelet Count 169 k/uL (150-450); RBC 3.28 m/uL (4.30-5.90); WBC 9.2 k/uL (3.8-10.6)
--- NOTE | 2022-08-07 10:36 | XR ---
EXAMINATION TYPE: XR chest 1V portable DATE OF EXAM: 08/07/2022 COMPARISON: 12/08/2021 HISTORY: Chest pressure TECHNIQUE: Single frontal view of the chest is obtained. FINDINGS: There is no focal air space opacity, pleural effusion, or pneumothorax seen. The cardiac silhouette size is within normal limits. The osseous structures are intact. IMPRESSION: No acute process.
[2022-08-07 10:40] LABS: Albumin 3.3 g/dL (3.5-5.0); Calcium 8.4 mg/dL (8.4-10.2); Potassium 3.5 mmol/L (3.5-5.1); Total Bilirubin 0.4 mg/dL (0.2-1.3); Total Protein 6.1 g/dL (6.3-8.2)
[2022-08-07 10:41] LABS: Partial Thromboplastin Time 25.5 sec (22.0-30.0); Prothrombin Time 10.5 sec (9.0-12.0)
[2022-08-07] MEDS ORDERED: ASPIRIN 81 MG PO STA (11:21)
[2022-08-07] MEDS ORDERED: MELATONIN 3 MG TABLET PO PRN (12:32)
[2022-08-07] MEDS ORDERED: ONDANSETRON 4 MG/2 ML VIAL IVP PRN (12:32)
[2022-08-07] MEDS ORDERED: NALOXONE 0.4 MG/ML 1 ML VIAL IV PRN (12:32)
[2022-08-07] MEDS ORDERED: DEXTROSE 50% SYRINGE 50 ML IVP PRN ×2 (12:38)
--- NOTE | 2022-08-07 12:38 | P.HPIM ---
History of Present Illness H&P Date: 08/07/22 History of present illness; patient is a 62-year-old gentleman with past medical history significant for coronary artery disease status post stent placement, ESRD on dialysis who presented to the ER because of chest pain. Patient has been having chest pressure for the last couple of days. Chest pain is not with any shortness of breath. Denies any palpitations. Patient was undergoing dialysis this morning when he again had a similar chest pressure on the left side, it was nonradiating, no aggravating or relieving factors associated with it. Patient was brought to the ER, initial EKG done did not show any acute segment changes. Blood work showed sodium of 135, potassium 3.5, creatinine 4.25, WBC 9.2, hemoglobin 10.7. Patient will be admitted for chest pain rule out REVIEW OF SYSTEMS: CONSTITUTIONAL: No fever, no malaise, no fatigue. HEENT: No recent visual problems or hearing problems. Denied any sore throat. CARDIOVASCULAR: As mentioned in HPI PULMONARY: No shortness of breath, no cough, no hemoptysis. GASTROINTESTINAL: No diarrhea, no nausea, no vomiting, no abdominal pain. NEUROLOGICAL: No headaches, no weakness, no numbness. HEMATOLOGICAL: Denies any bleeding or petechiae. GENITOURINARY: Denies any burning micturition, frequency, or urgency. MUSCULOSKELETAL/RHEUMATOLOGICAL: Denies any joint pain, swelling, or any muscle pain. ENDOCRINE: Denies any polyuria or polydipsia. The rest of the 14-point review of systems is negative. PHYSICAL EXAMINATION: GENERAL: The patient is alert and oriented x3, not in any acute distress. Well developed, well nourished. HEENT: Pupils are round and equally reacting to light. EOMI. No scleral icterus. No conjunctival pallor. Normocephalic, atraumatic. No pharyngeal erythema. No thyromegaly. CARDIOVASCULAR: S1 and S2 present. No murmurs, rubs, or gallops. PULMONARY: Chest is clear to auscultation, no wheezing or crackles. ABDOMEN: Soft, nontender, nondistended, normoactive bowel sounds. No palpable organomegaly. MUSCULOSKELETAL: No joint swelling or deformity. EXTREMITIES: No cyanosis, clubbing, or pedal edema. NEUROLOGICAL: Gross neurological examination did not reveal any focal deficits. SKIN: No rashes. Assessment and plan Chest pain ESRD Coronary artery disease Insulin-dependent diabetes mellitus Hypertension Plan; Continue telemetry monitoring Monitor troponins Monitor vital signs and monitor CBC Consult cardiology Consult nephrology for dialysis Start patient on sliding scale insulin Resume home meds Past Medical History Past Medical History: Coronary Artery Disease (CAD), Cancer, Heart Failure, CVA/TIA, Diabetes Mellitus, Eye Disorder, Hypertension, Myocardial Infarction ([place]), Renal Disease, Sleep Apnea/CPAP/BIPAP, Thyroid Disorder Additional Past Medical History / Comment(s): unhealing sore left index finger, neuropathy bilateral lower extremity/feet, bilateral eye diabetic ret inopathy/poor vision/multiple injections, ESRD with hemodialysis T/TH/SAT from 6:15 to 11:00, anemia, "mini strokes" x2, AVANI with CPap use, occasional low back pain/disc disease, gout, hypothyroid Last Myocardial Infarction Date:: 10/20/20 History of Any Multi-Drug Resistant Organisms: MRSA Date of last positivie culture/infection: 12/10/21 MDRO Source:: Finger-Right 5th Past Surgical History: Adenoidectomy, Bariatric Surgery, Cholecystectomy, Heart Catheterization, Heart Catheterization With Stent, Orthopedic Surgery, Tonsillectomy Additional Past Surgical History / Comment(s): 10/22/20 PCI with stents x2, lap banding, FX of right ankle repair pins / plate, fistual lt arm jul 2018, lt shoulder sx (d/t separation), colonoscopies, bilateral cataract removals/lens implants. LIF surgery 08/11/21 Past Anesthesia/Blood Transfusion Reactions: Motion Sickness Additional Past Anesthesia/Blood Transfusion Reaction / Comment(s): CLAUSTERPHOBIA Date of Last Stent Placement:: 10/22/20 Past Psychological History: Anxiety Smoking Status: Former smoker Past Alcohol Use History: None Reported Past Drug Use History: None Reported - Past Family History Mother History Unknown: Yes Family Medical History: Coronary Artery Disease (CAD), Myocardial Infarction ([place]) Additional Family Medical History / Comment(s): Mother at age 58 from multiple sclerosis Father Family Medical History: CVA/TIA, Myocardial Infarction ([place]) Additional Family Medical History / Comment(s): Father had history of [place] and CVA followed by a second [place] and CVA and at age 65. Brother(s) Additional Family Medical History / Comment(s): . Medications and Allergies Home Medications Medication Instructions Recorded Confirmed Type Levothyroxine Sodium 100 mcg PO HS 07/06/17 06/09/22 History Torsemide [Demadex] 40 mg PO DAILY 09/10/19 06/09/22 History Bryanna-Olimpia 1 tab PO DAILY 10/20/20 06/09/22 History HYDROcodone/APAP 10-325MG [[place] 1 tab PO QID PRN 11/24/20 06/09/22 History 10-325] Insulin Regular, Human [Novolin R 30 unit SQ ACHS PRN 11/24/20 06/09/22 History Flexpen] Insulin Detemir [Levemir Flextouch 60 units SQ HS 02/05/21 06/09/22 History Pen] Calcium Acetate [PhosLo] 1,334 mg PO BID-W/MEALS 03/11/21 06/09/22 History LORazepam [Ativan] 0.5 mg PO TID PRN 03/11/21 06/09/22 History Nitroglycerin Sl Tabs [Nitrostat] 0.4 mg SL Q5M PRN 03/11/21 06/09/22 History Lactulose 30 gm PO DAILY PRN 09/06/21 06/09/22 History carvediloL [Coreg] 3.125 mg PO QAM 12/08/21 06/09/22 History carvediloL [Coreg] 6.25 mg PO HS 12/08/21 06/09/22 History metroNIDAZOLE [Flagyl] 500 mg PO TID 06/09/22 06/09/22 History Atorvastatin [Lipitor] 40 mg PO HS #30 tab 06/15/22 Rx allopurinoL [Zyloprim] 300 mg PO HS #30 tab 06/15/22 Rx Allergies Allergy/AdvReac Type Severity Reaction Status Date / Time No Known Allergies Allergy Verified 08/07/22 09:48 Physical Exam Vitals: Vital Signs Temp Pulse Resp BP Pulse Ox 08/07/22 11:35 80 20 180/86 99 08/07/22 09:45 98.3 F 91 20 201/97 100 Intake and Output 08/06/22 08/07/22 08/07/22 22:59 06:59 14:59 Other: Weight 145.15 kg Results CBC & Chem 7: 08/07/22 10:15 08/07/22 10:15 Labs: Abnormal Lab Results - Last 24 Hours (Table) 08/07/22 08/07/22 08/07/22 Range/Units 09:51 10:15 10:15 RBC 3.28 L (4.30-5.90) m/uL Hgb 10.7 L (13.0-17.5) gm/dL Hct 30.9 L (39.0-53.0) % Sodium 135 L (137-145) mmol/L Chloride 97 L (98-107) mmol/L BUN 30 H (9-20) mg/dL Creatinine 4.25 H (0.66-1.25) mg/dL Glucose 224 H (74-99) mg/dL POC Glucose (mg/dL) 224 H (70-110) mg/dL Total Protein 6.1 L (6.3-8.2) g/dL Albumin 3.3 L (3.5-5.0) g/dL
[2022-08-07] MEDS ORDERED: LORazepam 0.5 MG TAB PO PRN (17:12)
[2022-08-07] MEDS ORDERED: LACTULOSE 20 GM/30 ML CUP PO PRN (17:12)
[2022-08-07] MEDS ORDERED: ACETAMINOPHEN TAB 325 MG TAB PO PRN (17:12)
[2022-08-07 18:11] LABS: Glucose,Whole Blood 340 mg/dL (70-110)
[2022-08-07] MEDS: HYDROcodone/APAP 10-325MG 1 EACH TAB PO PRN (18:30)
[2022-08-07] MEDS: INSULIN ASPART (NovoLOG) 100 UNIT/ML VIAL SQ SCH ×2 (18:31→21:46)
[2022-08-07] MEDS: CALCIUM ACETATE 667 MG TAB PO SCH (20:18)
[2022-08-07 20:50] LABS: Glucose,Whole Blood 321 mg/dL (70-110)
[2022-08-07] MEDS ORDERED: carvediloL 6.25 MG TAB PO SCH (21:00)
[2022-08-07] MEDS: ATORVASTATIN 40 MG TAB PO SCH (21:46)
[2022-08-07] MEDS: LEVOTHYROXINE 100 MCG TAB PO SCH (21:46)
[2022-08-08] MEDS: HYDROcodone/APAP 10-325MG 1 EACH TAB PO PRN ×4 (00:19→18:34)
[2022-08-08] MEDS ORDERED: hydrALAZINE HCL 10 MG TAB PO STA (05:01)
[2022-08-08 06:01] LABS: Glucose,Whole Blood 239 mg/dL (70-110)
[2022-08-08] MEDS: CALCIUM ACETATE 667 MG TAB PO SCH ×2 (06:32→17:24)
[2022-08-08] MEDS: INSULIN ASPART (NovoLOG) 100 UNIT/ML VIAL SQ SCH ×4 (06:32→20:50)
--- NOTE | 2022-08-08 07:48 | P.CRDCN ---
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 Patient was having more chest pain and pressure sensation October 2020 and was found to have inferior STEMI and underwent catheterization PCI. He states that he had a fall a week ago and then has been having a number of issues since that time. Appears to be a mechanical fall. He states he has been having increase in blood pressure more recently up in the 200s however previously had some difficulty with lower blood pressures during dialysis. He previously been on lisinopril however this was stopped when he lost a significant amount of weight. He has been having chest pressure sensation and some increased dyspnea and therefore came to the emergency department. Admits it feels somewhat similar to prior HI however more of a pressure feeling this time. Currently pressure gone. Troponins normal 3, EKG showing sinus rhythm without significant ST or T-wave abnormalities. BP elevated 180's REVIEW OF SYSTEMS At the time of my exam: CONSTITUTIONAL: Denies fever or chills. CARDIOVASCULAR: +chest pain, +shortness of breath, no orthopnea, PND or palpitations. RESPIRATORY: Denies cough. GASTROINTESTINAL: Denies abdominal pain, diarrhea, constipation, nausea or vomiting. MUSCULOSKELETAL: Denies myalgias. NEUROLOGIC: Denies numbness, tingling or weakness. ENDOCRINE: Denies fatigue, weight change, polydipsia or polyurina. GENITOURINARY: Denies burning, hematuria or urgency with micturation. HEMATOLOGIC: Denies history of anemia or bleeding. PHYSICAL EXAMINATION Vital signs reviewed. CONSTITUTIONAL: No apparent distress. HEENT: Head is normocephalic. Pupils are equal, round. Sclerae anicteric. Mucous membranes of the mouth are moist. No JVD. No carotid bruit. CHEST EXAMINATION: Lungs are clear to auscultation. No chest wall tenderness is noted on palpation or with deep breathing. HEART EXAMINATION: Regular rate and rhythm. S1, S2 heard. No murmurs, gallops or rub. ABDOMEN: Soft, nontender. Positive bowel sounds. EXTREMITIES: 2+ peripheral pulses, no lower extremity edema and no calf tenderness. NEUROLOGIC EXAMINATION: Patient is awake, alert and oriented x3. ASSESSMENT 1. Chest pressure, feeling somewhat similar to his prior HI however somewhat different. May be related to uncontrolled hypertension versus rule out angina 2. Hypertension, previously somewhat lower with dialysis however has been more elevated over the last few weeks, previously on lisinopril 3. CAD with prior history of PCI 4. History of pericardial effusion status post pericardial window 5. End-stage renal disease 6. Hypertension 7. Diabetes mellitus type 2 PLAN Patient's chest pain is not entirely typical and troponins normal with EKG not showing any significant ischemic changes. He states it feels somewhat similar to prior HI however and multiple risk factors. We will check an echo as well as Lexiscan stress test tomorrow. Increase carvedilol to 6.25 mg twice a day as well as add low-dose lisinopril and monitor response. Dialysis as needed. Further recommendations to follow. Past Medical History Past Medical History: Coronary Artery Disease (CAD), Cancer, Heart Failure, CVA/TIA, Diabetes Mellitus, Eye Disorder, Hypertension, Myocardial Infarction ([place]), Renal Disease, Sleep Apnea/CPAP/BIPAP, Thyroid Disorder Additional Past Medical History / Comment(s): unhealing sore left index finger, neuropathy bilateral lower extremity/feet, bilateral eye diabetic retinopathy/poor vision/multiple injections, ESRD with hemodialysis T/TH/SAT from 6:15 to 11:00, anemia, "mini strokes" x2, AVANI with CPap use, occasional low back pain/disc disease, gout, hypothyroid Last Myocardial Infarction Date:: 10/20/20 History of Any Multi-Drug Resistant Organisms: MRSA Date of last positivie culture/infection: 12/10/21 MDRO Source:: Finger-Right 5th Past Surgical History: Adenoidectomy, Bariatric Surgery, Cholecystectomy, Heart Catheterization, Heart Catheterization With Stent, Orthopedic Surgery, Tonsillectomy Additional Past Surgical History / Comment(s): 10/22/20 PCI with stents x2, lap banding, FX of right ankle repair pins / plate, fistual lt arm jul 2018, lt shoulder sx (d/t separation), colonoscopies, bilateral cataract removals/lens implants. LIF surgery 08/11/21 Past Anesthesia/Blood Transfusion Reactions: Motion Sickness Additional Past Anesthesia/Blood Transfusion Reaction / Comment(s): CLAUSTERPHOBIA Date of Last Stent Placement:: 10/22/20 Past Psychological History: Anxiety Additional Psychological History / Comment(s): Pt resides with his spouse. He no longer drives d/t vision loss. His spouse drives and organizes his medications for him. He has a walker and uses a wheelchair if going distances (dialysis days). Smoking Status: Former smoker Past Alcohol Use History: None Reported Additional Past Alcohol Use History / Comment(s): Patient was a smoker of 2-3 packs per day for 35 years and quit in 2006. Past Drug Use History: None Reported - Past Family History Mother History Unknown: Yes Family Medical History: Coronary Artery Disease (CAD), Myocardial Infarction ([place]) Additional Family Medical History / Comment(s): Mother at age 58 from multiple sclerosis Father Family Medical History: CVA/TIA, Myocardial Infarction ([place]) Additional Family Medical History / Comment(s): Father had history of HI and CVA followed by a second HI and CVA and at age 65. Brother(s) Additional Family Medical History / Comment(s): . Medications and Allergies Home Medications Medication Instructions Recorded Confirmed Type Levothyroxine Sodium 100 mcg PO HS 07/06/17 08/07/22 History Torsemide [Demadex] 40 mg PO DAILY 09/10/19 08/07/22 History Bryanna-Olimpia 1 tab PO DAILY 10/20/20 08/07/22 History HYDROcodone/APAP 10-325MG [[place] 1 tab PO QID PRN 11/24/20 08/07/22 History 10-325] Insulin Regular, Human [Novolin R 30 unit SQ ACHS PRN 11/24/20 08/07/22 History Flexpen] Insulin Detemir [Levemir Flextouch 60 units SQ HS 02/05/21 08/07/22 History Pen] Calcium Acetate [PhosLo] 1,334 mg PO BID-W/MEALS 03/11/21 08/07/22 History LORazepam [Ativan] 0.5 mg PO TID PRN 03/11/21 08/07/22 History Nitroglycerin Sl Tabs [Nitrostat] 0.4 mg SL Q5M PRN 03/11/21 08/07/22 History Lactulose 30 gm PO DAILY PRN 09/06/21 08/07/22 History carvediloL [Coreg] 3.125 mg PO DAILY 12/08/21 08/07/22 History carvediloL [Coreg] 6.25 mg PO HS 12/08/21 08/07/22 History metroNIDAZOLE [Flagyl] 500 mg PO TID 06/09/22 08/07/22 History Atorvastatin [Lipitor] 40 mg PO HS #30 tab 06/15/22 08/07/22 Rx Cephalexin [Keflex] 500 mg PO BID 08/07/22 08/07/22 History Allergies Allergy/AdvReac Type Severity Reaction Status Date / Time No Known Allergies Allergy Verified 08/07/22 13:47 Physical Exam Vitals: Vital Signs Temp Pulse Pulse Resp BP BP Pulse Ox 08/08/22 05:16 180/79 08/08/22 02:18 97.8 F 81 19 185/81 99 08/07/22 19:20 98.2 F 90 18 190/79 97 08/07/22 15:32 100 08/07/22 14:58 85 20 164/88 100 08/07/22 11:35 80 20 180/86 99 08/07/22 09:45 98.3 F 91 20 201/97 100 Intake and Output 08/07/22 08/08/22 08/08/22 22:59 06:59 14:59 Other: Voiding Method Toilet Toilet # Voids 0 2 Weight 145.15 kg Results 08/07/22 10:15 08/07/22 10:15 Cardiac Enzymes 08/07/22 08/07/22 08/07/22 Range/Units 10:15 10:15 12:47 AST 25 (17-59) U/L Troponin I 0.018 0.014 (0.000-0.034) ng/mL 08/07/22 Range/Units 16:01 AST (17-59) U/L Troponin I 0.014 (0.000-0.034) ng/mL Coagulation 08/07/22 Range/Units 10:15 PT 10.5 (9.0-12.0) sec APTT 25.5 (22.0-30.0) sec CBC 08/07/22 Range/Units 10:15 WBC 9.2 (3.8-10.6) k/uL RBC 3.28 L (4.30-5.90) m/uL Hgb 10.7 L (13.0-17.5) gm/dL Hct 30.9 L (39.0-53.0) % Plt Count 169 (150-450) k/uL Comprehensive Metabolic Panel 08/07/22 Range/Units 10:15 Sodium 135 L (137-145) mmol/L Potassium 3.5 (3.5-5.1) mmol/L Chloride 97 L (98-107) mmol/L Carbon Dioxide 28 (22-30) mmol/L BUN 30 H (9-20) mg/dL Creatinine 4.25 H (0.66-1.25) mg/dL Glucose 224 H (74-99) mg/dL Calcium 8.4 (8.4-10.2) mg/dL AST 25 (17-59) U/L ALT 15 (4-49) U/L Alkaline Phosphatase 110 (38-126) U/L Total Protein 6.1 L (6.3-8.2) g/dL Albumin 3.3 L (3.5-5.0) g/dL Current Medications Generic Name Dose Route Start Last Admin Trade Name Freq PRN Reason Stop Dose Admin Acetaminophen 650 mg 08/07/22 17:12 Acetaminophen Tab 325 Mg Tab PO Q6HR PRN Fever and/ or Pain Hydrocodone Bitart/Acetaminophen 1 each 08/07/22 17:12 08/08/22 06:31 Hydrocodone/Apap 10-325mg 1 Each Tab PO 1 each QID PRN Administration Pain Aspirin 325 mg 08/08/22 09:00 Aspirin 325 Mg Tab PO DAILY ALINE Atorvastatin Calcium 40 mg 08/07/22 21:00 08/07/22 21:46 Atorvastatin 40 Mg Tab PO 40 mg HS ALINE Administration Calcium Acetate 1,334 mg 08/07/22 17:30 08/08/22 06:32 Calcium Acetate 667 Mg Tab PO 1,334 mg BID-W/MEALS ALINE Administration Carvedilol 6.25 mg 08/08/22 07:45 Carvedilol 6.25 Mg Tab PO BID-W/MEALS ALINE Dextrose/Water 25 ml 08/07/22 12:38 Dextrose 50% Syringe 50 Ml IVP PER PROTOCOL PRN Hypoglycemia Protocol Dextrose/Water 50 ml 08/07/22 12:38 Dextrose 50% Syringe 50 Ml IVP PER PROTOCOL PRN Hypoglycemia Protocol Insulin Aspart 0 unit 08/07/22 17:30 08/08/22 06:32 Insulin Aspart (Novolog) 100 Unit/Ml Vial SQ 6 unit ACHS ALINE Administration Protocol Lactulose 30 gm 08/07/22 17:12 Lactulose 20 Gm/30 Ml Cup PO DAILY PRN Constipation Levothyroxine Sodium 100 mcg 08/07/22 21:00 08/07/22 21:46 Levothyroxine 100 Mcg Tab PO 100 mcg HS ALINE Administration Lisinopril 5 mg 08/08/22 09:00 Lisinopril 5 Mg Tab PO DAILY ALINE Lorazepam 0.5 mg 08/07/22 17:12 Lorazepam 0.5 Mg Tab PO TID PRN Anxiety Melatonin 3 mg 08/07/22 12:32 Melatonin 3 Mg Tablet PO HS PRN Insomnia Multivit/Ca Carb/B Cmplx/FA/Prenat 1 each 08/08/22 09:00 Folic Acid-Vit B Complex-Vit C 1 Cap PO DAILY ALINE Naloxone HCl 0.2 mg 08/07/22 12:32 Naloxone 0.4 Mg/Ml 1 Ml Vial IV Q2M PRN Opioid Reversal Nitroglycerin 0.4 mg 08/07/22 11:21 Nitroglycerin Sl Tabs 0.4 Mg Tab SUBLINGUAL Q5M PRN Chest Pain Ondansetron HCl 4 mg 08/07/22 12:32 Ondansetron 4 Mg/2 Ml Vial IVP Q8HR PRN Nausea And Vomiting Intake and Output 08/07/22 08/08/22 08/08/22 22:59 06:59 14:59 Other: Voiding Method Toilet Toilet # Voids 0 2 Weight 145.15 kg 08/07/22 10:15 08/07/22 10:15
[2022-08-08] MEDS ORDERED: AMINOPHYLLINE 500 MG/20 ML VIAL IV PRN (07:49)
[2022-08-08] MEDS ORDERED: CAFFEINE CITRATE 60 MG/3 ML VIAL IV PRN (07:49)
[2022-08-08] MEDS ORDERED: carvediloL 3.125 MG TAB PO SCH (09:00)
[2022-08-08] MEDS: carvediloL 6.25 MG TAB PO SCH ×2 (09:12→17:24)
[2022-08-08] MEDS: lisinopriL 5 MG TAB PO SCH (09:12)
[2022-08-08] MEDS: FOLIC ACID-VIT B COMPLEX-VIT C 1 CAP PO SCH (09:12)
[2022-08-08] MEDS: ASPIRIN 325 MG TAB PO SCH (09:13)
--- NOTE | 2022-08-08 10:39 | P.NPCON ---
History of Present Illness - Reason for Consult Consult date: 08/08/22 end stage renal disease - Chief Complaint Chest pain - History of Present Illness This is a 62-year-old male who was sent from the dialysis unit on Tuesday yesterday after experiencing chest pain after about 2- hours of dialysis. Dialysis was terminated by the dialysis nurse and was sent to the emergency room for further evaluation. He was not given any sublingual nitro during dialysis. pain is not suggestive of any pericarditis It is continuous on and off and currently is not completely pain-free There was no evidence of any hypotensive episodes during this dialysis session. he is on dialysis 3 times a week 4 hours 15 minutes and does not miss any treatments Patient has had this chest pain before. is been having intermittent bouts of chest pressure for the last 48-72 hours. . Patient is a history of heart attacks. He has significant cardiac history. He has had PCI of RCA on October 2019 to pericardial effusion with tamponade with a precordial window November 2020. Workup has included a normal chest x-ray EKGs did not show any acute VT. Troponin is 0.014 Known with diabetes mellitus left hand osteomyelitis. Past Medical History Past Medical History: Coronary Artery Disease (CAD), Cancer, Heart Failure, CVA/TIA, Diabetes Mellitus, Eye Disorder, Hypertension, Myocardial Infarction ([place]), Renal Disease, Sleep Apnea/CPAP/BIPAP, Thyroid Disorder Additional Past Medical History / Comment(s): unhealing sore left index finger, neuropathy bilateral lower extremity/feet, bilateral eye diabetic retinopathy/poor vision/multiple injections, ESRD with hemodialysis T/TH/SAT from 6:15 to 11:00, anemia, "mini strokes" x2, AVANI with CPap use, occasional low back pain/disc disease, gout, hypothyroid Last Myocardial Infarction Date:: 10/20/20 History of Any Multi-Drug Resistant Organisms: MRSA Date of last positivie culture/infection: 12/10/21 MDRO Source:: Finger-Right 5th Past Surgical History: Adenoidectomy, Bariatric Surgery, Cholecystectomy, Heart Catheterization, Heart Catheterization With Stent, Orthopedic Surgery, Tonsillectomy Additional Past Surgical History / Comment(s): 10/22/20 PCI with stents x2, lap banding, FX of right ankle repair pins / plate, fistual lt arm jul 2018, lt shoulder sx (d/t separation), colonoscopies, bilateral cataract removals/lens implants. LIF surgery 08/11/21 Past Anesthesia/Blood Transfusion Reactions: Motion Sickness Additional Past Anesthesia/Blood Transfusion Reaction / Comment(s): CLAUSTERPHOBIA Date of Last Stent Placement:: 10/22/20 Past Psychological History: Anxiety Additional Psychological History / Comment(s): Pt resides with his spouse. He no longer drives d/t vision loss. His spouse drives and organizes his medications for him. He has a walker and uses a wheelchair if going distances (dialysis days). Smoking Status: Former smoker Past Alcohol Use History: None Reported Additional Past Alcohol Use History / Comment(s): Patient was a smoker of 2-3 packs per day for 35 years and quit in 2006. Past Drug Use History: None Reported - Past Family History Mother History Unknown: Yes Family Medical History: Coronary Artery Disease (CAD), Myocardial Infarction ([place] ) Additional Family Medical History / Comment(s): Mother at age 58 from multiple sclerosis Father Family Medical History: CVA/TIA, Myocardial Infarction ([place]) Additional Family Medical History / Comment(s): Father had history of [place] and CVA followed by a second [place] and CVA and at age 65. Brother(s) Additional Family Medical History / Comment(s): . Medications and Allergies Home Medications Medication Instructions Recorded Confirmed Type Levothyroxine Sodium 100 mcg PO HS 07/06/17 08/07/22 History Torsemide [Demadex] 40 mg PO DAILY 09/10/19 08/07/22 History Bryanna-Olimpia 1 tab PO DAILY 10/20/20 08/07/22 History HYDROcodone/APAP 10-325MG [[place] 1 tab PO QID PRN 11/24/20 08/07/22 History 10-325] Insulin Regular, Human [Novolin R 30 unit SQ ACHS PRN 11/24/20 08/07/22 History Flexpen] Insulin Detemir [Levemir Flextouch 60 units SQ HS 02/05/21 08/07/22 History Pen] Calcium Acetate [PhosLo] 1,334 mg PO BID-W/MEALS 03/11/21 08/07/22 History LORazepam [Ativan] 0.5 mg PO TID PRN 03/11/21 08/07/22 History Nitroglycerin Sl Tabs [Nitrostat] 0.4 mg SL Q5M PRN 03/11/21 08/07/22 History Lactulose 30 gm PO DAILY PRN 09/06/21 08/07/22 History carvediloL [Coreg] 3.125 mg PO DAILY 12/08/21 08/07/22 History carvediloL [Coreg] 6.25 mg PO HS 12/08/21 08/07/22 History metroNIDAZOLE [Flagyl] 500 mg PO TID 06/09/22 08/07/22 History Atorvastatin [Lipitor] 40 mg PO HS #30 tab 06/15/22 08/07/22 Rx Cephalexin [Keflex] 500 mg PO BID 08/07/22 08/07/22 History Allergies Allergy/AdvReac Type Severity Reaction Status Date / Time No Known Allergies Allergy Verified 08/07/22 13:47 Physical Exam Vitals: Vital Signs Temp Pulse Pulse Resp BP BP BP 08/08/22 07:00 98.1 F 84 18 196/83 08/08/22 05:16 180/79 08/08/22 02:18 97.8 F 81 19 185/81 08/07/22 19:20 98.2 F 90 18 190/79 08/07/22 15:32 08/07/22 14:58 85 20 164/88 08/07/22 11:35 80 20 180/86 Pulse Ox 08/08/22 07:00 99 08/08/22 05:16 08/08/22 02:18 99 08/07/22 19:20 97 08/07/22 15:32 100 08/07/22 14:58 100 08/07/22 11:35 99 Intake and Output 08/07/22 08/08/22 08/08/22 22:59 06:59 14:59 Intake Total 118 Balance 118 Intake: Oral 118 Other: Voiding Method Toilet Toilet # Voids 0 2 Weight 145.15 kg Obese individual in bed comfortable. HEENT exam no JVP no facial asymmetry. Heart sounds unremarkable for any murmur rub gallop Lungs are clear to auscultation fairly good air entry bilaterally Abdomen soft nontender obese Extremity is trace edema He has amputation of fingers on both sides Neurologically awake alert oriented Results - Lab Results Most recent lab results Calcium 8.4 mg/dL (8.4-10.2) 08/07/22 10:15 08/07/22 10:15 08/07/22 10:15 Assessment and Plan Assessment: Impression 1. ESRD on dialysis Tuesday, 4 hours 15 minutes. 2. Admitted with chest pain rule out coronary artery disease, has history of PCI in the past. Troponin is normal chest x-ray is normal EKG is not suggestive of any acute changes 3. Anemia of chronic kidney disease with hemoglobin of 10.7 at target 4. History of pericardial window 2020 5. Sensation of multiple fingers of both hands. 6. Recent history of accidental fall 1 week ago. No headache no loss of consciousness. 7. History of Recommendation 1. Will dialyze him on his scheduled Tuesday 2. cardiology is planning echo as well as Lexiscan stress test tomorrow. 3. Maintain blood pressure, hemoglobin, calcium and phosphorus. Thank you for this consultation, Will continue to follow closely
[2022-08-08] MEDS ORDERED: INSULIN REGULAR HUMAN 100 UNIT/ML SQ PRN (11:06)
[2022-08-08] MEDS ORDERED: INSULN SQ PRN (11:06)
[2022-08-08 11:09] LABS: Basophils # (A) 0.05 X 10*3/uL (0.00-0.10); Basophils % (A) 0.6 %; Eosinophils # (A) 0.21 X 10*3/uL (0.04-0.35); Eosinophils % (A) 2.4 %; HCT 33.4 % (39.6-50.0); HGB 10.8 g/dL (13.0-17.0); Immature Grans, Automated 0.3 %; Lymphocytes # (A) 1.19 X 10*3/uL (0.90-5.00); Lymphocytes % (A) 13.3 %; MCH 31.9 pg (27.0-32.0); MCHC 32.3 g/dL (32.0-37.0); MCV 98.5 fL (80.0-97.0); Mean Platelet Volume 9.6 fL (9.5-12.2); Monocytes # (A) 0.47 X 10*3/uL (0.20-1.00); Monocytes % (A) 5.3 %; NRBC Per 100 WBC 0 /100 WBCS (0.0-0.0); Neutrophils # (A) 6.97 X 10*3/uL (1.80-7.70); Neutrophils % (A) 78.1 %; Platelet Count 176 X 10*3/uL (140-440); RBC 3.39 X 10*6/uL (4.40-5.60); RDW 14.4 % (11.5-14.5); WBC 8.92 X 10*3/uL (4.50-10.00)
--- NOTE | 2022-08-08 11:09 | P.PN ---
Subjective Progress Note Date: 08/08/22 patient is a 62-year-old gentleman with past medical history significant for coronary artery disease status post stent placement, ESRD on dialysis who presented to the ER because of chest pain. Patient has been having chest pressure for the last couple of days. Chest pain is not with any shortness of breath. Denies any palpitations. Patient was undergoing dialysis this morning when he again had a similar chest pressure on the left side, it was nonradiating, no aggravating or relieving factors associated with it. Patient was brought to the ER, initial EKG done did not show any acute segment changes. Blood work showed sodium of 135, potassium 3.5, creatinine 4.25, WBC 9.2, hemoglobin 10.7. Patient will be admitted for chest pain rule out 08/08. Patient seen and examined. No further episodes of chest pain. Complaining of constipation. Denies any shortness of breath REVIEW OF SYSTEMS: CONSTITUTIONAL: No fever, no malaise,. CARDIOVASCULAR: No chest pain, no palpitations, no syncope. PULMONARY: No shortness of breath, no cough, GASTROINTESTINAL: No diarrhea, no nausea, no vomiting, no abdominal pain. NEUROLOGICAL: No headaches, no weakness, PHYSICAL EXAMINATION: GENERAL: The patient is alert and oriented x3, not in any acute distress. Well developed, well nourished. HEENT: Pupils are round and equally reacting to light. EOMI. No scleral icterus. No conjunctival pallor. Normocephalic, atraumatic. No pharyngeal erythema. No thyromegaly. CARDIOVASCULAR: S1 and S2 present. No murmurs, rubs, or gallops. PULMONARY: Chest is clear to auscultation, no wheezing or crackles. ABDOMEN: Soft, nontender, nondistended, normoactive bowel sounds. No palpable organomegaly. MUSCULOSKELETAL: No joint swelling or deformity. EXTREMITIES: No cyanosis, clubbing, or pedal edema. NEUROLOGICAL: Gross neurological examination did not reveal any focal deficits. SKIN: No rashes. Assessment and plan Chest pain ESRD Coronary artery disease Insulin-dependent diabetes mellitus Hypertension Plan; Continue telemetry monitoring Monitor troponins Monitor vital signs and monitor CBC 2-D echo ordered Cardiology order stress test for tomorrow morning. Continue current insulin regimen Consult nephrology for dialysis Continue home meds DVT prophylaxis: Objective - Vital Signs Vital signs: Vital Signs Temp 98.1 F 08/08/22 07:00 Pulse 84 08/08/22 07:00 Resp 18 08/08/22 07:00 BP 196/83 08/08/22 07:00 Pulse Ox 99 08/08/22 07:00 FiO2 Intake & Output 08/07/22 08/08/22 08/08/22 18:59 06:59 18:59 Intake Total 118 Balance 118 Weight 145.15 kg 145.15 kg Intake: Oral 118 Other: Voiding Method Toilet # Voids 2 - Labs CBC & Chem 7: 08/07/22 10:15 08/07/22 10:15 Labs: Abnormal Lab Results - Last 24 Hours (Table) 08/07/22 08/07/22 08/07/22 Range/Units 12:47 18:10 20:47 POC Glucose (mg/dL) 340 H 321 H (70-110) mg/dL Hemoglobin A1c 8.8 H (0.0-6.0) % 08/08/22 Range/Units 06:00 POC Glucose (mg/dL) 239 H (70-110) mg/dL Hemoglobin A1c (0.0-6.0) %
[2022-08-08 11:18] LABS: ALT 22 U/L (10-49); AST 17 U/L (14-35); African American GFR (CKD) 11.2 (60.0-200.0); Albumin 3.7 g/dL (3.8-4.9); Albumin/Globulin Ratio 1.25 (1.60-3.17); Alkaline Phosphatase 121 U/L (41-126); BUN/Creat Ratio 7.02 Ratio (12.00-20.00); Blood Urea Nitrogen 40.6 mg/dL (9.0-27.0); Calcium 9.3 mg/dL (8.7-10.3); Carbon Dioxide 27.2 mmol/L (20.0-27.5); Chloride 94 mmol/L (96-109); Chol/HDL Ratio 4.53 Ratio; Glucose 252 mg/dL (70-110); LDL Cholesterol,Calculated 44.5 mg/dL (0.0-131.0); Non-African American GFR(CKD) 9.6 (60.0-200.0); Potassium 4.3 mmol/L (3.5-5.5); Sodium 136 mmol/L (135-145); Total Protein 6.7 g/dL (6.2-8.2)
[2022-08-08 11:37] LABS: Glucose,Whole Blood 325 mg/dL (70-110)
[2022-08-08] MEDS: polyethylene glycoL 3350 17 GM POWD.PACK PO SCH (12:26)
[2022-08-08] MEDS: hydrALAZINE HCL 20 MG/ML 1 ML VIAL IVP PRN ×2 (13:20→21:05)
[2022-08-08 16:34] LABS: Glucose,Whole Blood 310 mg/dL (70-110)
[2022-08-08] MEDS: NITROGLYCERIN SL TABS 0.4 MG TAB SUBLINGUAL PRN ×3 (17:39→17:58)
[2022-08-08 20:31] LABS: Glucose,Whole Blood 241 mg/dL (70-110)
[2022-08-08] MEDS: ATORVASTATIN 40 MG TAB PO SCH (20:50)
[2022-08-08] MEDS: DOCUSATE 100 MG CAP PO SCH (20:50)
[2022-08-08] MEDS: INSULIN DETEMIR (LEVEMIR) 100 UNIT/ML SYR SQ SCH (20:51)
[2022-08-08] MEDS: LEVOTHYROXINE 100 MCG TAB PO SCH (20:51)
[2022-08-08] MEDS ORDERED: MORPHINE SULFATE 2 MG/ML SYRINGE IVP STA (23:10)
[2022-08-09 06:15] LABS: Glucose,Whole Blood 234 mg/dL (70-110)
[2022-08-09] MEDS: INSULIN ASPART (NovoLOG) 100 UNIT/ML VIAL SQ SCH ×4 (06:33→20:54)
[2022-08-09] MEDS: carvediloL 6.25 MG TAB PO SCH ×2 (06:33→17:51)
[2022-08-09] MEDS: HYDROcodone/APAP 10-325MG 1 EACH TAB PO PRN ×3 (06:34→22:08)
[2022-08-09] MEDS ORDERED: REGADENOSON 0.4 MG/5 ML SYRINGE IV PRN (07:00)
[2022-08-09] MEDS: DOCUSATE 100 MG CAP PO SCH ×2 (08:39→20:55)
[2022-08-09] MEDS: lisinopriL 5 MG TAB PO SCH (08:39)
[2022-08-09] MEDS: ASPIRIN 325 MG TAB PO SCH (08:39)
[2022-08-09] MEDS: TORSEMIDE 20 MG TAB PO SCH (08:39)
--- NOTE | 2022-08-09 08:43 | P.PN ---
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 Patient was having more chest pain and pressure sensation October 2020 and was found to have inferior STEMI and underwent catheterization PCI. He states that he had a fall a week ago and then has been having a number of issues since that time. Appears to be a mechanical fall. He states he has been having increase in blood pressure more recently up in the 200s however previously had some difficulty with lower blood pressures during dialysis. He previously been on lisinopril however this was stopped when he lost a signif icant amount of weight.He has been having chest pressure sensation and some increased dyspnea and therefore came to the emergency department. Admits it feels somewhat similar to prior AR however more of a pressure feeling this time. Currently pressure gone. Troponins normal 3, EKG showing sinus rhythm without significant ST or T-wave abnormalities. BP elevated 180's. 08/09 Patient seen and examined at bedside, no acute distress. Had some right sided chest discomfort and right shoulder discomfort overnight. BP 176/83, heart rate 82, afebrile, patient started on lisinopril and carvedilol was increased yesterday for blood pressure control. Troponin was negative 3. PHYSICAL EXAMINATION Vital signs reviewed. CONSTITUTIONAL: No apparent distress. HEENT: Head is normocephalic. Pupils are equal, round. Sclerae anicteric. Mucous membranes of the mouth are moist. No JVD. No carotid bruit. CHEST EXAMINATION: Lungs are clear to auscultation. No chest wall tenderness is noted on palpation or with deep breathing. HEART EXAMINATION: Regular rate and rhythm. S1, S2 heard. No murmurs, gallops or rub. ABDOMEN: Soft, nontender. Positive bowel sounds. EXTREMITIES: 2+ peripheral pulses, no lower extremity edema and no calf tenderness. NEUROLOGIC EXAMINATION: Patient is awake, alert and oriented x3. ASSESSMENT 1. Chest pressure, feeling somewhat similar to his prior AR however somewhat different. May be related to uncontrolled hypertension versus rule out angina 2. Hypertension, previously somewhat lower with dialysis however has been more elevated over the last few weeks, previously on lisinopril 3. CAD with prior history of PCI 4. History of pericardial effusion status post pericardial window 5. End-stage renal disease 6. Hypertension 7. Diabetes mellitus type 2 PLAN Patient's chest pain is not entirely typical and troponins normal with EKG not showing any significant ischemic changes. We will check an echo as well as Lexiscan stress test today Continue carvedilol, lisinopril, adjust as needed. Continue aspirin, statin and torsemide Stress test negative for reversible ischemia, no further inpatient workup from cardiology perspective. Recommend follow-up in the office within 12 weeks Nurse practitioner note has been reviewed by physician. Signing provider agrees with the documented findings, assessment, and plan of care. Objective - Vital Signs Vital signs: Vital Signs Temp 97.7 F 08/09/22 07:00 Pulse 70 08/09/22 07:00 Resp 16 08/09/22 07:00 BP 184/93 08/09/22 07:00 Pulse Ox 98 08/09/22 07:00 FiO2 Intake & Output 08/08/22 08/09/22 08/09/22 18:59 06:59 18:59 Intake Total 236 Balance 236 Intake: Oral 236 Other: Voiding Method Toilet # Voids 3 2 - Labs CBC & Chem 7: 08/08/22 06:16 08/08/22 06:16 Labs: Abnormal Lab Results - Last 24 Hours (Table) 08/08/22 08/08/22 08/08/22 Range/Units 06:16 06:16 11:34 RBC 3.39 L (4.40-5.60) X 10*6/uL Hgb 10.8 L (13.0-17.0) g/dL Hct 33.4 L (39.6-50.0) % MCV 98.5 H (80.0-97.0) fL Chloride 94 L (96-109) mmol/L BUN 40.6 H (9.0-27.0) mg/dL Creatinine 5.8 H (0.6-1.5) mg/dL Est GFR (CKD-EPI)AfAm 11.2 L (60.0-200.0) Est GFR (CKD-EPI)NonAf 9.6 L (60.0-200.0) BUN/Creatinine Ratio 7.02 L (12.00-20.00) Ratio Glucose 252 H (70-110) mg/dL POC Glucose (mg/dL) 325 H (70-110) mg/dL Albumin 3.7 L (3.8-4.9) g/dL Albumin/Globulin Ratio 1.25 L (1.60-3.17) g/dL Triglycerides 206.00 H (0.00-149.00) mg/dL VLDL Cholesterol, Calc 41.20 H (5.00-40.00) mg/dL HDL Cholesterol 24.30 L (40.00-60.00) mg/dL 08/08/22 08/08/22 08/09/22 Range/Units 16:32 20:29 06:13 RBC (4.40-5.60) X 10*6/uL Hgb (13.0-17.0) g/dL Hct (39.6-50.0) % MCV (80.0-97.0) fL Chloride (96-109) mmol/L BUN (9.0-27.0) mg/dL Creatinine (0.6-1.5) mg/dL Est GFR (CKD-EPI)AfAm (60.0-200.0) Est GFR (CKD-EPI)NonAf (60.0-200.0) BUN/Creatinine Ratio (12.00-20.00) Ratio Glucose (70-110) mg/dL POC Glucose (mg/dL) 310 H 241 H 234 H (70-110) mg/dL Albumin (3.8-4.9) g/dL Albumin/Globulin Ratio (1.60-3.17) g/dL Triglycerides (0.00-149.00) mg/dL VLDL Cholesterol, Calc (5.00-40.00) mg/dL HDL Cholesterol (40.00-60.00) mg/dL
[2022-08-09] MEDS ORDERED: hydrALAZINE HCL 25 MG TAB PO STA (08:54)
[2022-08-09 10:41] LABS: HCT 32.9 % (39.6-50.0); HGB 10.9 g/dL (13.0-17.0); MCH 32.2 pg (27.0-32.0); MCHC 33.1 g/dL (32.0-37.0); MCV 97.3 fL (80.0-97.0); Mean Platelet Volume 9.8 fL (9.5-12.2); NRBC Per 100 WBC 0 /100 WBCS (0.0-0.0); Platelet Count 166 X 10*3/uL (140-440); RBC 3.38 X 10*6/uL (4.40-5.60); RDW 14.4 % (11.5-14.5); WBC 9.85 X 10*3/uL (4.50-10.00)
[2022-08-09 10:53] LABS: African American GFR (CKD) 9.4 (60.0-200.0); Albumin 3.6 g/dL (3.8-4.9); Albumin/Globulin Ratio 1.23 (1.60-3.17); Anion Gap 13.4 mmol/L (10.00-18.00); BUN/Creat Ratio 7.33 Ratio (12.00-20.00); Blood Urea Nitrogen 48.7 mg/dL (9.0-27.0); Calcium 9.7 mg/dL (8.7-10.3); Carbon Dioxide 28.6 mmol/L (20.0-27.5); Globulin 2.9 g/dL (1.6-3.3); Non-African American GFR(CKD) 8.1 (60.0-200.0); Potassium 4.4 mmol/L (3.5-5.5); Total Bilirubin 0.2 mg/dL (0.30-1.20); Total Protein 6.6 g/dL (6.2-8.2)
[2022-08-09] MEDS: CALCIUM ACETATE 667 MG TAB PO SCH ×2 (10:53→17:50)
[2022-08-09] MEDS: FOLIC ACID-VIT B COMPLEX-VIT C 1 CAP PO SCH (10:53)
[2022-08-09] MEDS: polyethylene glycoL 3350 17 GM POWD.PACK PO SCH (10:53)
[2022-08-09 11:39] LABS: Glucose,Whole Blood 222 mg/dL (70-110)
--- NOTE | 2022-08-09 12:31 | CA ---
Transthoracic Echo Report Name: Lan Tillman Age: 62 Gender: M : 1960 Exam Date: 08/09/2022 08:13 Exam Location: [facility] Ht (in): 64 Wt (lb): 320 Ordering Physician: Vikas Jimenez DO ([email or web address]) Attending/Referring Phys: Sander Operator Cheyenne Miller RDCS Procedure CPT: Indications: re: LV function Cardiac Hx: Technical Quality: Technically difficult study Contrast 1: Lumason Total Dose (mL): 4 Contrast 2: Total Dose (mL): MEASUREMENTS (Male / Female) Normal Values 2D ECHO LV Diastolic Diameter PLAX 6.3 cm 4.2 - 5.9 / 3.9 - 5.3 cm LV Systolic Diameter PLAX 4.4 cm IVS Diastolic Thickness 1.1 cm 0.6 - 1.0 / 0.6 - 0.9 cm LVPW Diastolic Thickness 1.4 cm 0.6 - 1.0 / 0.6 - 0.9 cm LV Relative Wall Thickness 0.4 RV Internal Dim ED PLAX 3.0 cm LA Systolic Diameter LX 4.8 cm 3.0 - 4.0 / 2.7 - 3.8 cm M-MODE Aortic Root Diameter MM 3.1 cm LA Systolic Diameter MM 4.7 cm LA Ao Ratio MM 1.5 MV E Point Septal Separation 0.4 cm AV Cusp Separation MM 2.3 cm DOPPLER MV Area PHT 3.6 cm??? Mitral E Point Velocity 82.9 cm/s Mitral A Point Velocity 78.5 cm/s Mitral E to A Ratio 1.1 MV Deceleration Time 208.0 ms TR Peak Velocity 160.6 cm/s TR Peak Gradient 10.3 mmHg Right Ventricular Systolic Press 15.3 mmHg FINDINGS Left Ventricle Mildly increased septal wall thickness. Mildly increased left ventricular diastolic diameter. Left ventricular ejection fraction is estimated at 50%. Right Ventricle Normal right ventricular size and function. Right ventricular systolic pressure within normal limits. Right Atrium Normal right atrial size. Left Atrium Moderately increased left atrial diameter. Mitral Valve Structurally normal mitral valve. Mild mitral regurgitation. Aortic Valve Trileaflet aortic valve. Aortic valve sclerosis. Tricuspid Valve Structurally normal tricuspid valve. Pulmonic Valve Pulmonic valve not well visualized. Pericardium Echo free space anterior to the right ventricle likely represents a fat pad. Aorta Normal size aortic root and proximal ascending aorta. CONCLUSIONS Low-normal left ventricular systolic function with EF at 50% Previewed by: Dr. Abdirahman Mcdaniels MD (Electronically Signed) Final Date: 09 August 2022 12:31
--- NOTE | 2022-08-09 12:44 | NM ---
EXAMINATION TYPE: NM stress lexiscan cardiolite DATE OF EXAM: 08/09/2022 COMPARISON: Prior nuclear medicine Lexiscan November 27, 2020 HISTORY: Chest pain and pressure. History of tobacco use in the past, hypertension, diabetes, hyperch olesteremia, and prior heart attack with the angioplasty. TECHNIQUE: After the intravenous administration of 10.3 mCi Tc 99m Sestamibi - Cardiolite resting SP ECT images acquired 80 minutes post injection. The patient received 0.4mg Lexiscan, 26 mCi Tc 99m Sestamibi - Stress images obtained 33 minutes post injection FINDINGS: Review of stress and rest SPECT images demonstrates no distinct new perfusion abnormality. Persisten t poor uptake involving inferior left ventricular wall on stress and rest images could reflect artifa ct versus old infarct rest images could reflect artifact versus old infarct. Gated analysis shows est imated left ventricular ejection fraction of 55 %. Slightly increased end diastolic volume on current study. IMPRESSION: No convincing scintigraphic evidence for reversible ischemia.
--- NOTE | 2022-08-09 12:57 | P.PN ---
Subjective Patient is seen for follow-up for end-stage renal disease. He was admitted to the hospital with complaints of chest pressure. Patient had about 2 hours of treatment as outpatient on Tuesday. Patient appears to be volume overloaded. He had a Lexiscan done this morning as well as an echocardiogram. Blood pressure is staying high. Patient denies any shortness of breath. He has mild chest discomfort mostly radiating to the right shoulder. Troponin has been negative. Objective - Vital Signs Vital signs: Vital Signs Temp 97.8 F 08/09/22 12:49 Pulse 82 08/09/22 12:49 Resp 18 08/09/22 12:49 BP 97/67 08/09/22 12:49 Pulse Ox 99 08/09/22 12:49 FiO2 Intake & Output 08/08/22 08/09/22 08/09/22 18:59 06:59 18:59 Intake Total 236 Balance 236 Intake: Oral 236 Other: Voiding Method Toilet Toilet # Voids 3 2 - Exam Awake, comfortable, alert oriented 3 distress Examination of the heart S1 and S2 Examination lungs decreased breath sounds at the bases Abdomen is soft morbidly obese Examination lower extremities shows edema 3+ bilaterally Multiple finger amputations bilaterally - Labs CBC & Chem 7: 08/09/22 07:19 08/09/22 07:19 Labs: Abnormal Lab Results - Last 24 Hours (Table) 08/08/22 08/08/22 08/09/22 Range/Units 16:32 20:29 06:13 RBC (4.40-5.60) X 10*6/uL Hgb (13.0-17.0) g/dL Hct (39.6-50.0) % MCV (80.0-97.0) fL MCH (27.0-32.0) pg Sodium (135-145) mmol/L Chloride (96-109) mmol/L Carbon Dioxide (20.0-27.5) mmol/L BUN (9.0-27.0) mg/dL Creatinine (0.6-1.5) mg/dL Est GFR (CKD-EPI)AfAm (60.0-200.0) Est GFR (CKD-EPI)NonAf (60.0-200.0) BUN/Creatinine Ratio (12.00-20.00) Ratio Glucose (70-110) mg/dL POC Glucose (mg/dL) 310 H 241 H 234 H (70-110) mg/dL Total Bilirubin (0.30-1.20) mg/dL Albumin (3.8-4.9) g/dL Albumin/Globulin Ratio (1.60-3.17) g/dL 08/09/22 08/09/22 08/09/22 Range/Units 07:19 07:19 11:37 RBC 3.38 L (4.40-5.60) X 10*6/uL Hgb 10.9 L (13.0-17.0) g/dL Hct 32.9 L (39.6-50.0) % MCV 97.3 H (80.0-97.0) fL MCH 32.2 H (27.0-32.0) pg Sodium 134 L (135-145) mmol/L Chloride 92 L (96-109) mmol/L Carbon Dioxide 28.6 H (20.0-27.5) mmol/L BUN 48.7 H (9.0-27.0) mg/dL Creatinine 6.6 H (0.6-1.5) mg/dL Est GFR (CKD-EPI)AfAm 9.4 L (60.0-200.0) Est GFR (CKD-EPI)NonAf 8.1 L (60.0-200.0) BUN/Creatinine Ratio 7.33 L (12.00-20.00) Ratio Glucose 245 H (70-110) mg/dL POC Glucose (mg/dL) 222 H (70-110) mg/dL Total Bilirubin 0.20 L (0.30-1.20) mg/dL Albumin 3.6 L (3.8-4.9) g/dL Albumin/Globulin Ratio 1.23 L (1.60-3.17) g/dL Assessment and Plan Assessment: 1. End-stage renal disease on hemodialysis on a Tuesday schedule 2. Volume overload 3. Uncontrolled hypertension associated with volume overload 4. Chest pain rule out acute coronary syndrome. Patient is being followed by cardiology. Status post stress test this morning. 5. History of pericardial effusion. Repeat Echocardiogram pending from today 6. CK D mineral bone disorder Plan: Hemodialysis today with UF about 3-4 L as tolerated. Repeat hemodialysis in a.m. with increased ultrafiltration as tolerated Adjust dry weight as outpatient Increased blood pressure medications if needed post ultrafiltration.
--- NOTE | 2022-08-09 13:01 | CA ---
Lexiscan Nuclear Stress Test Report Name: Lan Tillman Exam Date: 08/09/2022 09:46 Exam Location: [facility] Ht (in): 71 Wt (lb): 320 BSA: 2.58 Ordering Phys: Vikas Jimenez DO Referring Phys: SAIRA,, Technologist: Morgan Castillo Age: 62 Gender: M : 1960 Procedure CPT: Indications: Reflex order-Stress test ICD-10 Codes: Patient History: Medications: SEE CHART Meds past 24 hrs: Pretest Chest Pain: STRESS TEST Lexiscan Protocol Exercise Duration (min:sec): 02:[address] Depressions (mm): Angina Score: Guadalupe Score: Resting HR (bpm): 84 Peak HR (bpm): 92 Resting BP (mmHg): 147 / 84 Peak BP (mmHg): 177 / 80 MPHR: 158 Target HR: 134 % MPHR: 58 METS: 1.0 Total Dose: Peak Dose: Atropine: Double Product: 88884 BP Response: Stress Termination: PROTOCOL COMPLETE Stress Symptoms: NO SYMPTOMS Stress Summary: ECG ANALYSIS Resting ECG: Stress ECG: CONCLUSIONS Nondiagnostic electrocardiogram stress test Dr. Abdirahman Mcdaniels MD (Electronically Signed) Final Date: 09 August 2022 13:00
[2022-08-09] MEDS ORDERED: HYDROcodone/APAP 10-325MG 1 EACH TAB PO ONE (17:20)
[2022-08-09 17:34] LABS: Glucose,Whole Blood 179 mg/dL (70-110)
[2022-08-09] MEDS ORDERED: HEPARIN SODIUM 1,000 UN/ML (10ML VL) IV PRN (18:55)
[2022-08-09] MEDS ORDERED: HEPARIN SODIUM 1,000 UN/ML (10ML VL) IV ONE (18:55)
[2022-08-09] MEDS ORDERED: HEPARIN SOD,PORK IN 0.45% NACL 25,000 UNIT in 0.45% NACL 1 250ML.BAG IV SCH (19:00)
[2022-08-09 19:45] LABS: Basophils # (A) 0.1 k/uL (0-0.2); Basophils % (A) 1 %; Eosinophils # (A) 0.2 k/uL (0-0.7); Eosinophils % (A) 2 %; HCT 35.9 % (39.0-53.0); Lymphocytes # (A) 0.9 k/uL (1.0-4.8); Lymphocytes % (A) 10 %; MCH 32.4 pg (25.0-35.0); MCHC 33.5 g/dL (31.0-37.0); MCV 96.7 fL (80.0-100.0); Mean Platelet Volume 7.5; Monocytes # (A) 0.4 k/uL (0-1.0); Monocytes % (A) 4 %; Neutrophils # (A) 7.3 k/uL (1.3-7.7); Neutrophils % (A) 81 %; Platelet Count 183 k/uL (150-450); RBC 3.72 m/uL (4.30-5.90); RDW 14.6 % (11.5-15.5); WBC 9.1 k/uL (3.8-10.6)
[2022-08-09 19:52] LABS: INR 0.9 (<1.2); Partial Thromboplastin Time 25.9 sec (22.0-30.0); Prothrombin Time 9.9 sec (9.0-12.0)
[2022-08-09 20:21] LABS: Glucose,Whole Blood 192 mg/dL (70-110)
[2022-08-09] MEDS ORDERED: ENOXAPARIN 40 MG/0.4 ML SYRINGE SQ STA (20:32)
[2022-08-09] MEDS ORDERED: ENOXAPARIN 120 MG/0.8 ML SYRINGE SQ STA (20:32)
[2022-08-09] MEDS: INSULIN DETEMIR (LEVEMIR) 100 UNIT/ML SYR SQ SCH (20:55)
[2022-08-09] MEDS: ATORVASTATIN 40 MG TAB PO SCH (20:55)
[2022-08-09] MEDS: LEVOTHYROXINE 100 MCG TAB PO SCH (20:57)
--- NOTE | 2022-08-09 22:52 | P.PN ---
Subjective Progress Note Date: 08/09/22 patient is a 62-year-old gentleman with past medical history significant for coronary artery disease status post stent placement, ESRD on dialysis who presented to the ER because of chest pain. Patient has been having chest pressure for the last couple of days. Chest pain is not with any shortness of breath. Denies any palpitations. Patient was undergoing dialysis this morning when he again had a similar chest pressure on the left side, it was nonradiating, no aggravating or relieving factors associated with it. Patient was brought to the ER, initial EKG done did not show any acute segment changes. Blood work showed sodium of 135, potassium 3.5, creatinine 4.25, WBC 9.2, hemoglobin 10.7. Patient will be admitted for chest pain rule out 08/08. Patient seen and examined. No further episodes of chest pain. Complaining of constipation. Denies any shortness of breath 08/09/2022 Patient is status post lexiscan stress test today which is negative for reversible ischemia. Cardiology has increased carvediolol to 6.25 bid. Plan for dialysis today and resume //sat dialysis. Nephrology cleared patient for DC after dialysis this afternoon however he continues to report chest pres sure between shoulder blades in the back which he is experiencing intermittently and concerned because this is not normal for him, he would like to stay overnight for monitoring. Blood pressure 180s systolic this morning which has improved to 150s systolic. hgb 10.9 today, sodium 134, creatinine 6.6. 100% on room air. REVIEW OF SYSTEMS: CONSTITUTIONAL: No fever, no malaise. CARDIOVASCULAR: Chest pressure between shoulder blades 3/10 no palpitations, no syncope. PULMONARY: No shortness of breath, no cough GASTROINTESTINAL: No diarrhea, no nausea, no vomiting, no abdominal pain. NEUROLOGICAL: No headaches, no weakness PHYSICAL EXAMINATION: GENERAL: The patient is alert and oriented x3, not in any acute distress. Well developed, well nourished. HEENT: Pupils are round and equally reacting to light. EOMI. No scleral icterus. No conjunctival pallor. Normocephalic, atraumatic. No pharyngeal erythema. No thyromegaly. CARDIOVASCULAR: S1 and S2 present. No murmurs, rubs, or gallops. PULMONARY: Chest is clear to auscultation, no wheezing or crackles. ABDOMEN: Soft, nontender, nondistended, normoactive bowel sounds. No palpable organomegaly. MUSCULOSKELETAL: No joint swelling or deformity. EXTREMITIES: No cyanosis, clubbing, or pedal edema. NEUROLOGICAL: Gross neurological examination did not reveal any focal deficits. SKIN: No rashes. Assessment and plan Chest pain rule out ACS, negative lexiscan stress test today ESRD maintained on hemodialyis tu//tue Coronary artery disease Insulin-dependent diabetes mellitus Hypertension Peripheral neuropathy Anemia of chronic disease Hypothyroidism History TIA Obstructive sleep apnea with CPAP use Coronary artery disease status post PCI in 2020 Anxiety Former nicotine use GI Prophylaxis DVT Prophylaxis Full Code Plan; Negative lexiscan Cardiology cleared for discharge Patient continues with reports of chest pressure Dialysis today and tomorrow Blood pressure improving Possible D/C tomorrow after dialysis The impression and plan of care has been dictated by Nurse Radha Garcia as directed. Dr. Mil MD I have performed a history and physical examination and medical decision making of this patient, discussed the same with the dictator, and agree with the dict ators assessment and plan as written, documented as a scribe. Based on total visit time, I have performed more than 50% of this visit. Objective - Vital Signs Vital signs: Vital Signs Temp 97.7 F 08/09/22 18:45 Pulse 95 08/09/22 18:45 Resp 19 08/09/22 18:45 BP 140/81 08/09/22 18:45 Pulse Ox 100 08/09/22 18:45 FiO2 Intake & Output 08/09/22 08/09/22 08/10/22 06:59 18:59 06:59 Intake Total 300 Output Total 4000 Balance -3700 Intake: Hemodialysis 300 Output: Hemodialysis 4000 Other: Voiding Method Toilet Toilet Toilet # Voids 2 2 - Labs CBC & Chem 7: 08/09/22 19:18 08/09/22 07:19 Labs: Abnormal Lab Results - Last 24 Hours (Table) 08/09/22 08/09/22 08/09/22 Range/Units 06:13 07:19 07:19 RBC 3.38 L (4.40-5.60) X 10*6/uL Hgb 10.9 L (13.0-17.0) g/dL Hct 32.9 L (39.6-50.0) % MCV 97.3 H (80.0-97.0) fL MCH 32.2 H (27.0-32.0) pg Lymphocytes # (1.0-4.8) k/uL D-Dimer (<0.60) mg/L FEU Sodium 134 L (135-145) mmol/L Chloride 92 L (96-109) mmol/L Carbon Dioxide 28.6 H (20.0-27.5) mmol/L BUN 48.7 H (9.0-27.0) mg/dL Creatinine 6.6 H (0.6-1.5) mg/dL Est GFR (CKD-EPI)AfAm 9.4 L (60.0-200.0) Est GFR (CKD-EPI)NonAf 8.1 L (60.0-200.0) BUN/Creatinine Ratio 7.33 L (12.00-20.00) Ratio Glucose 245 H (70-110) mg/dL POC Glucose (mg/dL) 234 H (70-110) mg/dL Total Bilirubin 0.20 L (0.30-1.20) mg/dL Albumin 3.6 L (3.8-4.9) g/dL Albumin/Globulin Ratio 1.23 L (1.60-3.17) g/dL 08/09/22 08/09/22 08/09/22 Range/Units 11:37 17:31 17:44 RBC (4.40-5.60) X 10*6/uL Hgb (13.0-17.0) g/dL Hct (39.6-50.0) % MCV (80.0-97.0) fL MCH (27.0-32.0) pg Lymphocytes # (1.0-4.8) k/uL D-Dimer 3.83 H (<0.60) mg/L FEU Sodium (135-145) mmol/L Chloride (96-109) mmol/L Carbon Dioxide (20.0-27.5) mmol/L BUN (9.0-27.0) mg/dL Creatinine (0.6-1.5) mg/dL Est GFR (CKD-EPI)AfAm (60.0-200.0) Est GFR (CKD-EPI)NonAf (60.0-200.0) BUN/Creatinine Ratio (12.00-20.00) Ratio Glucose (70-110) mg/dL POC Glucose (mg/dL) 222 H 179 H (70-110) mg/dL Total Bilirubin (0.30-1.20) mg/dL Albumin (3.8-4.9) g/dL Albumin/Globulin Ratio (1.60-3.17) g/dL 08/09/22 08/09/22 Range/Units 19:18 20:19 RBC 3.72 L (4.40-5.60) X 10*6/uL Hgb 12.0 L (13.0-17.0) g/dL Hct 35.9 L (39.6-50.0) % MCV (80.0-97.0) fL MCH (27.0-32.0) pg Lymphocytes # 0.9 L (1.0-4.8) k/uL D-Dimer (<0.60) mg/L FEU Sodium (135-145) mmol/L Chloride (96-109) mmol/L Carbon Dioxide (20.0-27.5) mmol/L BUN (9.0-27.0) mg/dL Creatinine (0.6-1.5) mg/dL Est GFR (CKD-EPI)AfAm (60.0-200.0) Est GFR (CKD-EPI)NonAf (60.0-200.0) BUN/Creatinine Ratio (12.00-20.00) Ratio Glucose (70-110) mg/dL POC Glucose (mg/dL) 192 H (70-110) mg/dL Total Bilirubin (0.30-1.20) mg/dL Albumin (3.8-4.9) g/dL Albumin/Globulin Ratio (1.60-3.17) g/dL Assessment and Plan Time with Patient: Less than 30
[2022-08-10 01:50] LABS: Basophils # (A) 0.1 k/uL (0-0.2); Basophils % (A) 1 %; Eosinophils # (A) 0.2 k/uL (0-0.7); Eosinophils % (A) 3 %; HCT 31.6 % (39.0-53.0); HGB 10.8 gm/dL (13.0-17.5); Hypochromasia Slight; Lymphocytes # (A) 1.1 k/uL (1.0-4.8); Lymphocytes % (A) 13 %; MCH 33.2 pg (25.0-35.0); MCV 97.5 fL (80.0-100.0); Mean Platelet Volume 7.8; Monocytes # (A) 0.4 k/uL (0-1.0); Monocytes % (A) 5 %; Neutrophils # (A) 6.3 k/uL (1.3-7.7); Neutrophils % (A) 76 %; Platelet Count 158 k/uL (150-450); RBC 3.24 m/uL (4.30-5.90); RDW 14.8 % (11.5-15.5); WBC 8.4 k/uL (3.8-10.6)
[2022-08-10 02:00] LABS: African American GFR (CKD) 13 (>60 ml/min/1.73 sqM); Anion Gap 9 mmol/L; Blood Urea Nitrogen 32 mg/dL (9-20); Calcium 8.9 mg/dL (8.4-10.2); Carbon Dioxide 25 mmol/L (22-30); Chloride 101 mmol/L (98-107); Glucose 193 mg/dL (74-99); Magnesium 2.2 mg/dL (1.6-2.3); Non-African American GFR(CKD) 12 (>60 ml/min/1.73 sqM); Potassium 3.9 mmol/L (3.5-5.1); Sodium 135 mmol/L (137-145)
[2022-08-10] MEDS: HYDROcodone/APAP 10-325MG 1 EACH TAB PO PRN ×4 (04:10→21:53)
[2022-08-10 06:01] LABS: Glucose,Whole Blood 157 mg/dL (70-110)
[2022-08-10] MEDS: INSULIN ASPART (NovoLOG) 100 UNIT/ML VIAL SQ SCH ×4 (06:34→21:09)
[2022-08-10] MEDS: carvediloL 6.25 MG TAB PO SCH ×2 (06:35→18:45)
[2022-08-10] MEDS: DOCUSATE 100 MG CAP PO SCH ×2 (08:34→21:08)
[2022-08-10] MEDS: CALCIUM ACETATE 667 MG TAB PO SCH ×2 (08:34→18:50)
[2022-08-10] MEDS: FOLIC ACID-VIT B COMPLEX-VIT C 1 CAP PO SCH (08:34)
[2022-08-10] MEDS: lisinopriL 5 MG TAB PO SCH (08:34)
[2022-08-10] MEDS: TORSEMIDE 20 MG TAB PO SCH (08:34)
[2022-08-10] MEDS: ASPIRIN 81 MG PO SCH (08:35)
[2022-08-10] MEDS: polyethylene glycoL 3350 17 GM POWD.PACK PO SCH (08:52)
--- NOTE | 2022-08-10 12:02 | P.PN ---
Subjective Patient is seen for follow-up for end-stage renal disease. He was admitted to the hospital with complaints of chest pressure. Patient had about 2 hours of treatment as outpatient on Tuesday. He had hemodialysis yesterday with UF of 4 L. Patient was feeling better and was supposed to go home yesterday however he developed chest pain again last night. There is concern for PE and a CTA was initially ordered but canceled due to elevated creatinine. Objective - Vital Signs Vital signs: Vital Signs Temp 97.7 F 08/10/22 06:23 Pulse 71 08/10/22 06:23 Resp 18 08/10/22 06:23 BP 165/82 08/10/22 06:23 Pulse Ox 99 08/10/22 06:23 FiO2 Intake & Output 08/09/22 08/10/22 08/10/22 18:59 06:59 18:59 Intake Total 300 480 Output Total 4000 10 Balance -3700 -10 480 Intake: Oral 480 Hemodialysis 300 Output: Urine 10 Hemodialysis 4000 Other: Voiding Method Toilet Toilet # Voids 2 1 - Exam Awake, comfortable, alert oriented 3 distress Examination of the heart S1 and S2 Examination lungs decreased breath sounds at the bases Abdomen is soft morbidly obese Examination lower extremities shows edema 3+ bilaterally Multiple finger amputations bilaterally - Labs CBC & Chem 7: 08/10/22 01:22 08/10/22 01:22 Labs: Abnormal Lab Results - Last 24 Hours (Table) 08/09/22 08/09/22 08/09/22 Range/Units 17:31 17:44 19:18 RBC 3.72 L (4.30-5.90) m/uL Hgb 12.0 L (13.0-17.5) gm/dL Hct 35.9 L (39.0-53.0) % Lymphocytes # 0.9 L (1.0-4.8) k/uL D-Dimer 3.83 H (<0.60) mg/L FEU Sodium (137-145) mmol/L BUN (9-20) mg/dL Creatinine (0.66-1.25) mg/dL Glucose (74-99) mg/dL POC Glucose (mg/dL) 179 H (70-110) mg/dL 08/09/22 08/10/22 08/10/22 Range/Units 20:19 01:22 01:22 RBC 3.24 L (4.30-5.90) m/uL Hgb 10.8 L (13.0-17.5) gm/dL Hct 31.6 L (39.0-53.0) % Lymphocytes # (1.0-4.8) k/uL D-Dimer (<0.60) mg/L FEU Sodium 135 L (137-145) mmol/L BUN 32 H (9-20) mg/dL Creatinine 4.99 H (0.66-1.25) mg/dL Glucose 193 H (74-99) mg/dL POC Glucose (mg/dL) 192 H (70-110) mg/dL 08/10/22 Range/Units 06:00 RBC (4.30-5.90) m/uL Hgb (13.0-17.5) gm/dL Hct (39.0-53.0) % Lymphocytes # (1.0-4.8) k/uL D-Dimer (<0.60) mg/L FEU Sodium (137-145) mmol/L BUN (9-20) mg/dL Creatinine (0.66-1.25) mg/dL Glucose (74-99) mg/dL POC Glucose (mg/dL) 157 H (70-110) mg/dL Assessment and Plan Assessment: 1. End-stage renal disease on hemodialysis on a Tuesday schedule 2. Volume overload 3. Uncontrolled hypertension associated with volume overload 4. Chest pain, no evidence of acute coronary syndrome. Patient is being followed by cardiology. Rule out PE 5. History of pericardial effusion. Repeat Echocardiogram shows no acute findings and no effusion 6. CK D mineral bone disorder Plan: Hemodialysis today with UF about 3-4 L as tolerated. Okay to proceed with CTA as patient will be dialyzed today.
[2022-08-10 12:15] LABS: Glucose,Whole Blood 212 mg/dL (70-110)
[2022-08-10] MEDS ORDERED: SENNOSIDES 8.6 MG TAB PO PRN (12:24)
[2022-08-10] MEDS: APIXABAN 2.5 MG TABLET PO SCH ×2 (12:42→21:08)
--- NOTE | 2022-08-10 17:36 | CT ---
EXAMINATION TYPE: CT angio chest CT DLP: 629.1 mGycm, Automated exposure control for dose reduction was used. DATE OF EXAM: 08/10/2022 5:18 PM COMPARISON: Chest radiograph from same day. Multiple CTs of the chest with most recent on 02/05/2021 CLINICAL INDICATION:Male, 62 years old with history of Elevated D-Dimer; Elevated D-dimer TECHNIQUE/CONTRAST: CTA scan of the thorax is performed with IV Contrast, patient injected with 100cc mL of Isovue 370, p ulmonary embolism protocol. MIP images are created and reviewed. FINDINGS: Pulmonary Artery: There is no evidence for a filling defect within the pulmonary vasculature to sugge st acute pulmonary embolism. The pulmonary artery is of normal size. Lungs/Pleura: No evidence of focal consolidation, or pneumothorax. Trace bilateral pleural effusions are present. Azygous fissure noted on the right. There is thickening of the interlobular septa. Airway: Large airways are patent. Heart: The heart is mildly enlarged for size with moderate to severe coronary artery atherosclerosis. Vasculature: No evidence of aortic aneurysm. Mediastinum: No gross evidence of adenopathy. Musculoskeletal: No acute osseous abnormalities, multilevel disc degeneration changes throughout the spine. Soft Tissues: Unremarkable. Lower neck: No the right thyroid gland is enlarged. Upper Abdomen: There is a gastric lap band present which appears in appropriate position. The gallbla dder is surgically absent. IMPRESSION: 1. No evidence of pulmonary embolism. 2. Cardiomegaly with trace bilateral pleural effusions and minimal pulmonary vascular congestion, co rrelate for congestive heart failure. 3. Moderate to severe coronary artery atherosclerosis. 4. Right thyroid goiter.
[2022-08-10 17:45] LABS: Glucose,Whole Blood 258 mg/dL (70-110)
[2022-08-10] MEDS: metroNIDAZOLE 500 MG TAB PO SCH ×2 (18:45→21:08)
[2022-08-10 19:43] LABS: Glucose,Whole Blood 304 mg/dL (70-110)
[2022-08-10] MEDS: LEVOTHYROXINE 100 MCG TAB PO SCH (21:08)
[2022-08-10] MEDS: ATORVASTATIN 40 MG TAB PO SCH (21:08)
[2022-08-10] MEDS: INSULIN DETEMIR (LEVEMIR) 100 UNIT/ML SYR SQ SCH (21:09)
--- NOTE | 2022-08-10 21:18 | P.PN ---
Subjective Progress Note Date: 08/10/22 patient is a 62-year-old gentleman with past medical history significant for coronary artery disease status post stent placement, ESRD on dialysis who presented to the ER because of chest pain. Patient has been having chest pressure for the last couple of days. Chest pain is not with any shortness of breath. Denies any palpitations. Patient was undergoing dialysis this morning when he again had a similar chest pressure on the left side, it was nonradiating, no aggravating or relieving factors associated with it. Patient was brought to the ER, initial EKG done did not show any acute segment changes. Blood work showed sodium of 135, potassium 3.5, creatinine 4.25, WBC 9.2, hemoglobin 10.7. Patient will be admitted for chest pain rule out 08/08. Patient seen and examined. No further episodes of chest pain. Complaining of constipation. Denies any shortness of breath 08/09/2022 Patient is status post lexiscan stress test today which is negative for reversible ischemia. Cardiology has increased carvediolol to 6.25 bid. Plan for dialysis today and resume //sat dialysis. Nephrology cleared patient for DC after dialysis this afternoon however he continues to report chest pres sure between shoulder blades in the back which he is experiencing intermittently and concerned because this is not normal for him, he would like to stay overnight for monitoring. Blood pressure 180s systolic this morning which has improved to 150s systolic. hgb 10.9 today, sodium 134, creatinine 6.6. 100% on room air. 08/10/2022 Patient evaluated this morning sitting up at bedside. Continues to report intermittent chest pressure and also pain right upper back about 2 to 3/10. He denies any focal tenderness and has full range of motion. D-dimer at 3.83, nephrology ok for patient to undergo CTA to rule out PE as he will be dialyzed today. Telemetry was reviewing showing paroxysmal atrial fibrillation with controlled rate in the 70s. Discussed with cardiology and patient has been started on Eliquis 2.5 mg PO twice a day. Monitor overnight and patient most likely will be discharged tomorrow. REVIEW OF SYSTEMS: CONSTITUTIONAL: No fever, no malaise. CARDIOVASCULAR: Chest pressure between shoulder blades 3/10 no palpitations, no syncope. PULMONARY: No shortness of breath, no cough GASTROINTESTINAL: No diarrhea, no nausea, no vomiting, no abdominal pain. NEUROLOGICAL: No headaches, no weakness PHYSICAL EXAMINATION: GENERAL: The patient is alert and oriented x3, not in any acute distress. Well developed, well nourished. HEENT: Pupils are round and equally reacting to light. EOMI. No scleral icterus. No conjunctival pallor. Normocephalic, atraumatic. No pharyngeal erythema. No thyromegaly. CARDIOVASCULAR: S1 and S2 present. No murmurs, rubs, or gallops. Irregular rhythm. PULMONARY: Chest is clear to auscultation, no wheezing or crackles. ABDOMEN: Soft, nontender, nondistended, normoactive bowel sounds. No palpable organomegaly. MUSCULOSKELETAL: No joint swelling or deformity. EXTREMITIES: No cyanosis, clubbing, or pedal edema. NEUROLOGICAL: Gross neurological examination did not reveal any focal deficits. SKIN: No rashes. Assessment and plan Chest pain rule out ACS, negative lexiscan stress test today Paroxysmal atrial fibrillation, possible new onset ESRD maintained on hemodialyis //tue Coronary artery disease Insulin-dependent diabetes mellitus Hypertension Peripheral neuropathy Anemia of chronic disease Hypothyroidism History TIA Obstructive sleep apnea with CPAP use Coronary artery disease status post PCI in 2020 Anxiety Former nicotine use GI Prophylaxis DVT Prophylaxis Full Code Plan; Negative lexiscan Patient continues with reports of chest pressure Patient has been started on eliquis Dialysis today Blood pressure improving Possible D/C in the next 24 hours and follow up with cardiology outpatient. The impression and plan of care has been dictated by Ingrid Schneider, Nurse Practitioner as directed. Dr. Mil MD I have performed a history and physical examination and medical decision making of this patient, discussed the same with the dictator, and agree with the dictators assessment and plan as written, documented as a scribe. Based on total visit time, I have performed more than 50% of this visit. Objective - Vital Signs Vital signs: Vital Signs Temp 97.7 F 08/10/22 06:23 Pulse 71 08/10/22 06:23 Resp 18 08/10/22 06:23 BP 165/82 08/10/22 06:23 Pulse Ox 99 08/10/22 06:23 FiO2 Intake & Output 08/09/22 08/10/22 08/10/22 18:59 06:59 18:59 Intake Total 300 598 Output Total 4000 10 Balance -3700 -10 598 Intake: Oral 598 Hemodialysis 300 Output: Urine 10 Hemodialysis 4000 Other: Voiding Method Toilet Toilet # Voids 2 1 - Labs CBC & Chem 7: 08/10/22 01:22 08/10/22 01:22 Labs: Abnormal Lab Results - Last 24 Hours (Table) 08/09/22 08/09/22 08/09/22 Range/Units 17:31 17:44 19:18 RBC 3.72 L (4.30-5.90) m/uL Hgb 12.0 L (13.0-17.5) gm/dL Hct 35.9 L (39.0-53.0) % Lymphocytes # 0.9 L (1.0-4.8) k/uL D-Dimer 3.83 H (<0.60) mg/L FEU Sodium (137-145) mmol/L BUN (9-20) mg/dL Creatinine (0.66-1.25) mg/dL Glucose (74-99) mg/dL POC Glucose (mg/dL) 179 H (70-110) mg/dL 08/09/22 08/10/22 08/10/22 Range/Units 20:19 01:22 01:22 RBC 3.24 L (4.30-5.90) m/uL Hgb 10.8 L (13.0-17.5) gm/dL Hct 31.6 L (39.0-53.0) % Lymphocytes # (1.0-4.8) k/uL D-Dimer (<0.60) mg/L FEU Sodium 135 L (137-145) mmol/L BUN 32 H (9-20) mg/dL Creatinine 4.99 H (0.66-1.25) mg/dL Glucose 193 H (74-99) mg/dL POC Glucose (mg/dL) 192 H (70-110) mg/dL 08/10/22 08/10/22 Range/Units 06:00 12:12 RBC (4.30-5.90) m/uL Hgb (13.0-17.5) gm/dL Hct (39.0-53.0) % Lymphocytes # (1.0-4.8) k/uL D-Dimer (<0.60) mg/L FEU Sodium (137-145) mmol/L BUN (9-20) mg/dL Creatinine (0.66-1.25) mg/dL Glucose (74-99) mg/dL POC Glucose (mg/dL) 157 H 212 H (70-110) mg/dL Assessment and Plan Time with Patient: Less than 30
[2022-08-10] MEDS: CEPHALEXIN 500 MG CAP PO SCH (21:53)
[2022-08-11 06:00] LABS: Glucose,Whole Blood 83 mg/dL (70-110)
[2022-08-11] MEDS: INSULIN ASPART (NovoLOG) 100 UNIT/ML VIAL SQ SCH ×6 (06:04→18:11)
[2022-08-11 06:26] LABS: T4, Free (Free Thyroxine) 1.59 ng/dL (0.78-2.19)
[2022-08-11] MEDS: carvediloL 6.25 MG TAB PO SCH ×2 (06:32→18:10)
[2022-08-11] MEDS ORDERED: INSULIN ASPART (NovoLOG) 100 UNIT/ML VIAL SQ SCH (07:30)
[2022-08-11] MEDS: CALCIUM ACETATE 667 MG TAB PO SCH ×2 (08:40→18:10)
[2022-08-11] MEDS: HYDROcodone/APAP 10-325MG 1 EACH TAB PO PRN (08:41)
[2022-08-11] MEDS: FOLIC ACID-VIT B COMPLEX-VIT C 1 CAP PO SCH (08:41)
[2022-08-11] MEDS: APIXABAN 2.5 MG TABLET PO SCH (08:41)
[2022-08-11] MEDS: TORSEMIDE 20 MG TAB PO SCH (08:41)
[2022-08-11] MEDS: DOCUSATE 100 MG CAP PO SCH (08:41)
[2022-08-11] MEDS: ASPIRIN 81 MG PO SCH (08:41)
[2022-08-11] MEDS: CEPHALEXIN 500 MG CAP PO SCH (08:41)
[2022-08-11] MEDS: metroNIDAZOLE 500 MG TAB PO SCH ×2 (08:41→18:10)
[2022-08-11] MEDS: lisinopriL 5 MG TAB PO SCH (08:41)
[2022-08-11] MEDS: polyethylene glycoL 3350 17 GM POWD.PACK PO SCH (08:46)
[2022-08-11 12:13] LABS: Glucose,Whole Blood 238 mg/dL (70-110)
[2022-08-11 17:34] VITALS: BP 155/78; PULSE 71; RESP 16; TEMP 96.6
[2022-08-11 17:40] LABS: Glucose,Whole Blood 173 mg/dL (70-110)
--- NOTE | 2022-08-12 07:36 | P.PN ---
Subjective Patient is seen for follow-up for end-stage renal disease. He was admitted to the hospital with complaints of chest pressure. Evidence of fluid overload CTA negative for PE Pt will have HD prior to discharge today. Objective - Vital Signs Vital signs: Vital Signs Temp 96.6 F L 08/11/22 17:32 Pulse 71 08/11/22 17:32 Resp 16 08/11/22 17:32 BP 155/78 08/11/22 17:32 Pulse Ox 100 08/11/22 06:14 FiO2 Intake & Output 08/11/22 08/12/22 08/12/22 18:59 06:59 18:59 Intake Total 400 Output Total 2400 Balance -1999 Intake: Hemodialysis 400 Output: Hemodialysis 2400 Other: # Voids 2 - Exam Awake, comfortable, alert oriented 3 distress Examination of the heart S1 and S2 Examination lungs decreased breath sounds at the bases Abdomen is soft morbidly obese Examination lower extremities shows edema 3+ bilaterally Multiple finger amputations bilaterally - Labs CBC & Chem 7: 08/10/22 01:22 08/10/22 01:22 Labs: Abnormal Lab Results - Last 24 Hours (Table) 08/11/22 08/11/22 Range/Units 12:11 17:30 POC Glucose (mg/dL) 238 H 173 H (70-110) mg/dL Assessment and Plan Assessment: 1. End-stage renal disease on hemodialysis on a Tuesday schedule 2. Volume overload 3. Uncontrolled hypertension associated with volume overload 4. Chest pain, no evidence of acute coronary syndrome. Patient is being followed by cardiology. Rule out PE 5. History of pericardial effusion. Repeat Echocardiogram shows no acute findings and no effusion 6. CK D mineral bone disorder Plan: HD today for 2.5 hrs prior to discharge.
--- NOTE | 2022-08-12 22:40 | CDI ---
Documentation Clarification Form Date: 08/12/2022 10:31:58 PM From: Viki Rush Phone: Admit Date: 08/09/2022 07:34:00 PM Patient Name: Lan Tillman Visit Number: [id number] Discharge Date: 08/11/2022 06:30:00 PM ATTENTION: The Clinical Documentation Specialists (CDI) and [facility] Coding Staff appreciate your assistance in clarifying documentation. Please respond to the clarification below the line at the bottom and electronically sign. The CDI & [facility] Coding staff will review the response and follow-up if needed. Please note: Queries are made part of the Legal Health Record. If you have any questions, please contact the author of this message via ITS. Dr. Shira Hess Your patient has the documented diagnosis of unspecified CHF per ED Note and past History. Additional information regarding the type and acuity of CHF is requested. History/Risk Factors: 62yo M, CAD sp stents, DMII w ESRD on HD, Hx [place], PAF Clinical Indicators: VS/Pulse OX: 100 Echocardiogram Results: Low-normal left ventricular systolic function with EF at 50% Chest x ray: There is no focal air space opacity, pleural effusion, or pneumothorax seen. The cardiac silhouette size is within normal limits. The osseous structures are intact. Treatment: Evidence of fluid overload CTA negative for PE Pt will have HD prior to discharge today. 08/11/22 Progress Note In your professional opinion, can you please clarify the type and acuity of CHF if known? [ ] Chronic Systolic Heart Failure (reduced EF) [ ] Chronic Diastolic Heart Failure (preserved EF) [ ] Chronic Systolic & Diastolic Heart Failure [ ] Other, please specify [ ] Unable to determine (Template Last Revised: October 2020) chronic diastolic chf MTDD
--- NOTE | 2022-08-13 22:11 | P.DS ---
Providers Date of admission: 08/09/22 19:34 Attending physician: Gwen Mcknight Consults: 08/07/22 11:21 Consult Physician Routine Consulting Provider: January Plaza Consult Reason/Comments: esrd Do you want consulting provider notified?: Yes Consult Physician Urgent Consulting Provider: Vikas Jimenez Consult Reason/Comments: chest pain Do you want consulting provider notified?: Yes Primary care physician: [facility] Course: Final Diagnosis Chest pain with nondiagnostic lexiscan stress test, ACS ruled out. Paroxysmal atrial fibrillation with controlled ventricular rate , possible new onset Elevated D-Dimer with CTA negative for pulmonary embolism ESRD maintained on hemodialyis //tue Coronary artery disease Insulin-dependent diabetes mellitus Hypertension Peripheral neuropathy Anemia of chronic disease Hypothyroidism History TIA Obstructive sleep apnea with CPAP use Coronary artery disease status post PCI in 2020 Anxiety Former nicotine use Obesity Full Code Discharge Disposition Patient is stable for discharge home after hemodialysis. Patient will be discharged on eliquis 2.5 mg twice a day. Patient to continue hemodialysis as usual with next scheduled session on 08/12/22. Patient to follow up with Dr. Hess with nephrology, Dr. [facility]. Hemoglobin A1C 8.8 and patient has been referred to endocrinology on discharge. Recommend to see primary care in 1 to 2 days. Patient will also discharge with home physical therapy. Hospital Course This is a pleasant 62 year old male with medical history of diabetes mellitus, hypertension, hypothyroidism, TIA, anemia, sleep apnea, coronary artery disease with prior PCI, end state renal disease maintained on hemodialysis Tue/. Patient presents with complaints of chest pressure intermittent that began about 2 weeks ago. Pain is mostly described as pressure like sensation and is worse over the last couple of days. Patient also reports experiencing a mechanical fal l about 1 week ago, states he did hit his head. No reports of headache, dizziness, lightheadedness, no vision changes. No diaphoresis, reports no shortness of breath. EKG on admission is not showing any acute segment changes. Troponin levels have been negative, he is admitted for chest pain work up. Underwent Lexiscan stress test which was nondiagnostic Cardiology cleared for discharge. Patient continues to report chest pressure and D-Dimer was found to be elevated at 3.38, chest CT angiography performed which was negative for pulmonary embolism. There is evidence of moderate to severe coronary artery atherosclerosis, right thyroid goiter, cardiomegaly with trace pleural effusions and minimal pulmonary vascular congestion. Patient has undergone 2 extra hemodialysis sessions this admission. Upon review of cardiac telemetry patient was found to have episodes of atrial fibrillation with controlled ventricular rate and was started on eliquis at 2.5 mg PO BID. He also had echocardiogram thi s admission showing an EF of 50%, mild mitral regurgitation. Patient did present with hyperglycemia with blood glucose in the 300s and hemoglobin A1C found to be 8.8. TSH 6.060 and T4 1.59. Lipid panel showing triglycerides of 206, cholesterol 110, LDL 41.20, and HDL 24.30. Patient will be referred to endocrinology on discharge. Patient reports improvement in chest pain symptoms and will be discharged home with the above mentioned recommendations. 08/11/2022 Patient is evaluated today sitting up in bed. He reports improvement in chest pressure currently states it has resolved and he slept well last night. He does complain of right back pain which is about 2/10. He denies shortness of breath. There is no focal back tenderness, lungs are clear. He has full range of motion with no musculoskeletal complaints. Pulmonary embolism has been ruled out. S1 S2 auscultated regular rate and irregular rhythm. He is alert x 3, focal neurological exam is negative. Most recent labs showing white count of 8.4, hgb 10.8, sodium 135, BUN 32, creatinine 4.99, blood glucose 170. Patient has remained afebrile, heart rate 70s, blood pressure 155/78, 98% room air. He will be discharged home today after hemodialysis. Total time taken in discharge planning greater than 35 minutes. Please see medication reconciliation for a list of current medication. Thank you for allowing us to participate in the care of this patient. The impression and plan of care has been dictated by Ingrid Schneider, Nurse Practitioner as directed. Dr. Mil MD I have performed a history and physical examination and medical decision making of this patient, discussed the same with the dictator, and agree with the dictators assessment and plan as written, documented as a scribe. Based on total visit time, I have performed more than 50% of this visit. Patient Condition at Discharge: Stable Plan - Discharge Summary New Discharge Prescriptions: New Aspirin 81 mg PO DAILY #30 tab Apixaban [Eliquis] 2.5 mg PO BID #60 tab Docusate [Colace] 100 mg PO BID PRN #40 cap PRN Reason: Constipation carvediloL [Coreg] 6.25 mg PO BID-W/MEALS #60 tab lisinopriL [Zestril] 5 mg PO DAILY #30 tab Continue Levothyroxine Sodium 100 mcg PO HS Torsemide [Demadex] 40 mg PO DAILY Bryanna-Olimpia 1 tab PO DAILY Insulin Regular, Human [Novolin R Flexpen] 30 unit SQ ACHS PRN PRN Reason: Blood Sugar - High HYDROcodone/APAP 10-325MG [Lyman 10-325] 1 tab PO QID PRN PRN Reason: Pain Cephalexin [Keflex] 500 mg PO BID Insulin Detemir [Levemir Flextouch Pen] 60 units SQ HS Calcium Acetate [PhosLo] 1,334 mg PO BID-W/MEALS Nitroglycerin Sl Tabs [Nitrostat] 0.4 mg SL Q5M PRN PRN Reason: Chest Pain Lactulose 30 gm PO DAILY PRN PRN Reason: Constipation metroNIDAZOLE [Flagyl] 500 mg PO TID Atorvastatin [Lipitor] 40 mg PO HS #30 tab Changed LORazepam [Ativan] 0.5 mg PO BID PRN #0 PRN Reason: Anxiety Discontinued metroNIDAZOLE [Flagyl] 500 mg PO TID carvediloL [Coreg] 3.125 mg PO DAILY carvediloL [Coreg] 6.25 mg PO HS Cephalexin [Keflex] 500 mg PO Q12HR No Action Sennosides [Ex-Lax Maximum Strength] 25 mg PO DAILY PRN PRN Reason: Constipation Discharge Medication List Levothyroxine Sodium 100 mcg PO HS 07/06/17 [History] Torsemide [Demadex] 40 mg PO DAILY 09/10/19 [History] Bryanna-Olimpia 1 tab PO DAILY 10/20/20 [History] HYDROcodone/APAP 10-325MG [Lyman 10-325] 1 tab PO QID PRN 11/24/20 [History] Insulin Regular, Human [Novolin R Flexpen] 30 unit SQ ACHS PRN 11/24/20 [History] Insulin Detemir [Levemir Flextouch Pen] 60 units SQ HS 02/05/21 [History] Calcium Acetate [PhosLo] 1,334 mg PO BID-W/MEALS 03/11/21 [History] Nitroglycerin Sl Tabs [Nitrostat] 0.4 mg SL Q5M PRN 03/11/21 [History] Lactulose 30 gm PO DAILY PRN 09/06/21 [History] metroNIDAZOLE [Flagyl] 500 mg PO TID 06/09/22 [History] Atorvastatin [Lipitor] 40 mg PO HS #30 tab 06/15/22 [Rx] Cephalexin [Keflex] 500 mg PO BID 08/07/22 [History] Aspirin 81 mg PO DAILY #30 tab 08/09/22 [Rx] Docusate [Colace] 100 mg PO BID PRN #40 cap 08/09/22 [Rx] LORazepam [Ativan] 0.5 mg PO BID PRN #0 08/09/22 [Rx] carvediloL [Coreg] 6.25 mg PO BID-W/MEALS #60 tab 08/09/22 [Rx] lisinopriL [Zestril] 5 mg PO DAILY #30 tab 08/09/22 [Rx] Apixaban [Eliquis] 2.5 mg PO BID #60 tab 08/10/22 [Rx] Sennosides [Ex-Lax Maximum Strength] 25 mg PO DAILY PRN 08/10/22 [History] Follow up Appointment(s)/Referral(s): Shira Hess MD [STAFF PHYSICIAN] - 1 Week Cain Tapia MD [REFERRING] - 1 Week Vikas Jimenez DO [STAFF PHYSICIAN] - 2 Weeks (Office will call with apointment time and date.) Hayes Oshea MD [Primary Care Provider] - 08/13/22 10:00 am Patient Instructions/Handouts: Chest Pain (DC), Cardiac Stress Test (DC) Activity/Diet/Wound Care/Special Instructions: Continue with dialysis as normal Tuesday, , Tuesday Follow up with primary care in 1 to 2 days Follow up with nephrology, cardiology Continue with antibiotics per Dr. Madera as recommended outpatient Right thyroid goiter found on CT angiography recommend to follow up with endocrinology outpatient Patient is discharged with [facility] home [facility] and also added physical therapy Discharge Disposition: HOME WITH HOME HEALTH SERVICES
== END 2022-08-11 18:30 | disposition home health service (06) | DRG 302 ==
LOC: EC 09:36 → 6NMEDSUR 11:21 → OBSVTOIN 08-09 19:34 → 6NMEDSUR 08-10 23:49
PROVIDERS: ADMIT Hospitalist; ATTEND Hospitalist
PROC: 4A02XM4 Measurement of Cardiac Total Activity, External Approach (ICD-10-PCS; principal; 2022-08-09)
PROC: 3E033HZ Introduction of Radioactive Substance into Peripheral Vein, Percutaneous Approach (ICD-10-PCS; 2022-08-09)
DX: I25.119 Atherosclerotic heart disease of native coronary artery with unspecified angina pectoris (principal); N18.6 End stage renal disease; I13.2 Hypertensive heart and chronic kidney disease with heart failure and with stage 5 chronic kidney disease, or end stage renal disease; Z68.41 Body mass index [BMI] 40.0-44.9, adult; I50.32 Chronic diastolic (congestive) heart failure; D63.1 Anemia in chronic kidney disease; E11.319 Type 2 diabetes mellitus with unspecified diabetic retinopathy without macular edema; E11.22 Type 2 diabetes mellitus with diabetic chronic kidney disease; E11.42 Type 2 diabetes mellitus with diabetic polyneuropathy; E66.9 Obesity, unspecified; E03.9 Hypothyroidism, unspecified; I08.0 Rheumatic disorders of both mitral and aortic valves; G47.33 Obstructive sleep apnea (adult) (pediatric); K59.00 Constipation, unspecified; H54.7 Unspecified visual loss; W19.XXXA Unspecified fall, initial encounter; E78.5 Hyperlipidemia, unspecified; F41.9 Anxiety disorder, unspecified; I48.0 Paroxysmal atrial fibrillation; M89.8X9 Other specified disorders of bone, unspecified site; Z28.311 Partially vaccinated for COVID-19; I25.2 Old myocardial infarction; Z79.899 Other long term (current) drug therapy; Z79.4 Long term (current) use of insulin; Z86.73 Personal history of transient ischemic attack (TIA), and cerebral infarction without residual deficits; Z99.2 Dependence on renal dialysis; Z95.5 Presence of coronary angioplasty implant and graft; Z87.891 Personal history of nicotine dependence; Z82.49 Family history of ischemic heart disease and other diseases of the circulatory system; Z79.890 Hormone replacement therapy; Z86.14 Personal history of Methicillin resistant Staphylococcus aureus infection; Z89.022 Acquired absence of left finger(s); Z87.39 Personal history of other diseases of the musculoskeletal system and connective tissue; Z86.79 Personal history of other diseases of the circulatory system
CPT/HCPCS: 36415; 71045; 71275; 78452; 80048; 80053; 80061; 83036; 83735; 84439; 84443; 84484; 85025; 85027; 85379; 85610; 85730; 90935; 93005; 93017; 93306; 94760; 99291

== ENCOUNTER 2023-02-16 12:35 | Inpatient (IN) | payer MEDICARE, BC ==
--- NOTE | 2023-02-16 13:59 | XR ---
EXAMINATION TYPE: XR finger LT DATE OF EXAM: 02/16/2023 1:49 PM INDICATION: Patient age:Male; 62 years old; Reason for study: infection; PH[facility]. COMPARISON: Left hand radiograph 06/09/2022, left finger radiograph 09/06/2021 TECHNIQUE: Frontal, lateral and oblique views of the fourth digit of the left hand were obtained. FINDINGS: Similar appearance of amputation defects involving the third and fifth metacarpals. Amputat ion defect involving the fourth digit middle phalanx redemonstrated with new osseous erosion with ulc eration and edema involving the distal aspect of the fourth proximal phalanx. Dislocation of the resi dual fourth digit middle phalanx. Additional age-indeterminate suspected avulsion fracture involving the base of the fourth proximal phalanx. Vascular sclerosis. IMPRESSION: 1. Findings consistent with osteomyelitis involving the distal aspect of the proximal fourth phalanx with dislocation of the residual/amputated fourth middle phalanx and associated ulceration. 2. Age-indeterminate suspected avulsion fracture of the base of the fourth proximal phalanx. 3. Similar postsurgical amputation of the third and fifth metacarpals.
[2023-02-16] MEDS ORDERED: NALOXONE 0.4 MG/ML 1 ML VIAL IV PRN (14:38)
[2023-02-16] MEDS ORDERED: INSULN SQ PRN (14:40)
[2023-02-16] MEDS ORDERED: INSULIN REGULAR HUMAN 100 UNIT/ML SQ PRN (14:40)
[2023-02-16] MEDS ORDERED: oxyCODONE-APAP 5-325MG 1 EACH TAB PO PRN (14:40)
[2023-02-16 15:01] LABS: Basophils % (A) 0 %; Eosinophils # (A) 0.2 k/uL (0-0.7); Eosinophils % (A) 2 %; HCT 29.6 % (39.0-53.0); Lymphocytes # (A) 0.8 k/uL (1.0-4.8); Lymphocytes % (A) 8 %; MCH 32.4 pg (25.0-35.0); MCHC 33.9 g/dL (31.0-37.0); MCV 95.4 fL (80.0-100.0); Mean Platelet Volume 7.8; Monocytes # (A) 0.4 k/uL (0-1.0); Monocytes % (A) 4 %; Neutrophils # (A) 7.7 k/uL (1.3-7.7); Neutrophils % (A) 83 %; Platelet Count 137 k/uL (150-450); RDW 15.2 % (11.5-15.5); WBC 9.2 k/uL (3.8-10.6)
[2023-02-16 15:18] LABS: ALT 23 U/L (4-49); AST 18 U/L (17-59); African American GFR (CKD) 16 (>60 ml/min/1.73 sqM); Albumin 3.2 g/dL (3.5-5.0); Alkaline Phosphatase 87 U/L (38-126); Anion Gap 11 mmol/L; Blood Urea Nitrogen 41 mg/dL (9-20); Calcium 8.2 mg/dL (8.4-10.2); Carbon Dioxide 34 mmol/L (22-30); Chloride 89 mmol/L (98-107); Non-African American GFR(CKD) 14 (>60 ml/min/1.73 sqM); Sodium 134 mmol/L (137-145); Total Bilirubin 0.4 mg/dL (0.2-1.3); Total Protein 6.2 g/dL (6.3-8.2)
[2023-02-16 15:29] LABS: C Reactive Protein 14.8 mg/dL (<1.0)
--- NOTE | 2023-02-16 15:34 | ED ---
Skin/Abscess/FB HPI - General Chief complaint: Skin/Abscess/Foreign Body Stated complaint: Hand Infection Time Seen by Provider: 02/16/23 13:10 Source: patient, RN notes reviewed Mode of arrival: ambulatory Limitations: no limitations - History of Present Illness Initial comments: 62-year-old male presents emergency Department chief complaint infection to his left hand fourth digit. Patient had multiple amputation of digits secondary to infections. Patient states she's not been any recent antibiotics. He states that his visiting nurse cannot evaluation him and recommended: Emergency department. Patient states she's had increasing drainage, redness to the site. Patient is on dialysis. He states he to for dialysis tomorrow. - Related Data Home Medications Medication Instructions Recorded Confirmed Levothyroxine Sodium 100 mcg PO HS 07/06/17 10/07/22 Torsemide [Demadex] 40 mg PO DAILY 09/10/19 10/07/22 Bryanna-Olimpia 1 tab PO DAILY 10/20/20 10/07/22 HYDROcodone/APAP 10-325MG [[place] 1 tab PO QID PRN 11/24/20 10/07/22 10-325] Insulin Regular, Human [Novolin R 30 unit SQ ACHS PRN 11/24/20 10/07/22 Flexpen] Insulin Detemir [Levemir Flextouch 60 units SQ HS 02/05/21 10/07/22 Pen] Calcium Acetate [PhosLo] 1,334 mg PO BID-W/MEALS 03/11/21 10/07/22 Nitroglycerin Sl Tabs [Nitrostat] 0.4 mg SL Q5M PRN 03/11/21 10/07/22 Lactulose 30 gm PO DAILY PRN 09/06/21 10/07/22 lisinopriL [Zestril] 5 mg PO HS 10/07/22 10/07/22 Previous Rx's Medication Instructions Recorded Atorvastatin [Lipitor] 40 mg PO HS #30 tab 06/15/22 carvediloL [Coreg] 6.25 mg PO BID-W/MEALS #60 tab 08/09/22 oxyCODONE HCL/ACETAMINOPHEN 1 tab PO Q6HR PRN #10 tab 10/13/22 [Percocet 5-325 mg] FLUoxetine HCL [PROzac] 40 mg PO DAILY 30 Days #30 cap 10/16/22 Allergies Allergy/AdvReac Type Severity Reaction Status Date / Time No Known Allergies Allergy Verified 02/16/23 12:44 Review of Systems ROS Statement: Those systems with pertinent positive or pertinent negative responses have been documented in the HPI. ROS Other: All systems not noted in ROS Statement are negative. Past Medical History Past Medical History: Coronary Artery Disease (CAD), Cancer, Heart Failure, CVA/TIA, Diabetes Mellitus, Eye Disorder, Hypertension, Myocardial Infarction ([place]), Renal Disease, Sleep Apnea/CPAP/BIPAP, Thyroid Disorder Additional Past Medical History / Comment(s): unhealing sore left index finger, neuropathy bilateral lower extremity/feet, bilateral eye diabetic retinopathy/poor vision/multiple injections, ESRD with hemodialysis T/TH/SAT from 6:15 to 11:00, anemia, "mini strokes" x2, AVANI with CPap use, occasional low back pain/disc disease, gout, hypothyroid Last Myocardial Infarction Date:: 10/20/20 History of Any Multi-Drug Resistant Organisms: MRSA Date of last positivie culture/infection: 12/10/21 MDRO Source:: Finger-Right 5th Past Surgical History: Adenoidectomy, Bariatric Surgery, Cholecystectomy, Heart Catheterization, Heart Catheterization With Stent, Orthopedic Surgery, Tonsillectomy Additional Past Surgical History / Comment(s): 10/22/20 PCI with stents x2, lap banding, FX of right ankle repair pins / plate, fistual lt arm jul 2018, lt shoulder sx (d/t separation), colonoscopies, bilateral cataract removals/lens implants. LIF surgery 08/11/21 Past Anesthesia/Blood Transfusion Reactions: Motion Sickness Additional Past Anesthesia/Blood Transfusion Reaction / Comment(s): CLAUSTE RPHOBIA Date of Last Stent Placement:: 10/22/20 Past Psychological History: Anxiety Smoking Status: Former smoker Past Alcohol Use History: None Reported Past Drug Use History: None Reported - Past Family History Mother History Unknown: Yes Family Medical History: Coronary Artery Disease (CAD), Myocardial Infarction (AL) Additional Family Medical History / Comment(s): Mother at age 58 from multiple sclerosis Father Family Medical History: CVA/TIA, Myocardial Infarction ([place]) Additional Family Medical History / Comment(s): Father had history of AL and CVA followed by a second AL and CVA and at age 65. Brother(s) Additional Family Medical History / Comment(s): . General Exam Limitations: no limitations General appearance: alert, in no apparent distress Head exam: Present: atraumatic, normocephalic, normal inspection Eye exam: Present: normal appearance, PERRL, EOMI. Absent: scleral icterus, conjunctival injection, periorbital swelling Respiratory exam: Present: normal lung sounds bilaterally. Absent: respiratory distress, wheezes, rales, rhonchi, stridor Cardiovascular Exam: Present: regular rate, normal rhythm, normal heart sounds. Absent: systolic murmur, diastolic murmur, rubs, gallop, clicks Extremities exam: Present: other (Left hand multiple amputations of digits 13 and 5 remaining portion of digit for there is erythema, purulent drainage noted) Course Vital Signs 02/16/23 02/16/23 12:39 14:46 Temperature 97.6 F Pulse Rate 95 114 H Respiratory 20 18 Rate Blood Pressure 136/59 165/105 O2 Sat by Pulse 98 100 Oximetry Medical Decision Making - Medical Decision Making Was pt. sent in by a medical professional or institution (LEANN Garcia, COMMISSION[employer] OFFICER, urgent care, hospital, or penitentiary...) When possible be specific @ -Wound care nurse Did you speak to anyone other than the patient for history (EMS, parent, family, police, friend...)? What history was obtained from this source @ -No Did you review nursing and triage notes (agree or disagree)? Why? @ -I reviewed and agree with nursing and triage notes Were old charts reviewed (outside hosp., previous admission, EMS record, old EKG, old radiological studies, urgent care reports/EKG's, penitentiary records)? Report findings @ -No old charts were reviewed Differential Diagnosis (chest pain, altered mental status, abdominal pain women, abdominal pain men, vaginal bleeding, weakness, fever, dyspnea, syncope, headache, dizziness, GI bleed, back pain, seizure, CVA, palpatations, mental health, musculoskeletal)? @ -Cellulitis, osteomyelitis EKG interpreted by me (3pts min.). @ -As above X-rays interpreted by me (1pt min.). @ -X-ray shows evidence of osteomyelitis his fourth digit left hand CT interpreted by me (1pt min.). @ -None done U/S interpreted by me (1pt. min.). @ -None done What testing was considered but not performed or refused? (CT, X-rays, U/S, labs)? Why? @ -None What meds were considered but not given or refused? Why? @ -None Did you discuss the management of the patient with other professionals (professionals i.e. , PA, COMMISSIONED FIRE OFFICER, lab, RT, psych nurse, manager social responsibility, debt recovery officer, teacher, postal delivery officer, embedded case manager)? Give summary @ -Discussed the case with [facility], for admission with consult to nephrology, infectious disease, orthopedic surgery Was smoking cessation discussed for >3mins.? @ -No Was critical care preformed (if so, how long)? @ -No Were there social determinants of health that impacted care today? How? (Homelessness, low income, unemployed, alcoholism, drug addiction, transportation, low edu. Level, literacy, decrease access to med. care, custodial, rehab)? @ -No Was there de-escalation of care discussed even if they declined (Discuss DNR or withdrawal of care, Hospice)? DNR status @ -No What co-morbidities impacted this encounter? (DM, HTN, Smoking, COPD, CAD, Cancer, CVA, ARF, Chemo, Hep., AIDS, mental health diagnosis, sleep apnea, morbid obesity)? @ -Diabetes, renal failure Was patient admitted / discharged? Hospital course, mention meds given and route, prescriptions, significant lab abnormalities, going to OR and other pertinent info. @ -Admitted patient's x-ray shows evidence of osteomyelitis, cellulitis. Patient started on IV antibiotics with multiple consults. Undiagnosed new problem with uncertain prognosis? @ -No Drug Therapy requiring intensive monitoring for toxicity (Heparin, Nitro, Insulin, Cardizem)? @ -No Were any procedures done? @ -No Diagnosis/symptom? @ -Osteomyelitis left hand digit Acute, or Chronic, or Acute on Chronic? @ -Acute on chronic Uncomplicated (without systemic symptoms) or Complicated (systemic symptoms)? @ -Complicated Side effects of treatment? @ -No Exacerbation, Progression, or Severe Exacerbation? @ -No Poses a threat to life or bodily function? How? (Chest pain, USA, AL, pneumonia, PE, COPD, DKA, ARF, appy, cholecystitis, CVA, Diverticulitis, Homicidal, Suicidal, threat to staff... and all critical care pts) @ -No - Lab Data Result diagrams: 06/07/23 14:27 Lab Results 02/16/23 02/16/23 Range/Units 14:27 14:27 WBC 9.2 (3.8-10.6) k/uL RBC 3.10 L (4.30-5.90) m/uL Hgb 10.0 L (13.0-17.5) gm/dL Hct 29.6 L (39.0-53.0) % MCV 95.4 (80.0-100.0) fL MCH 32.4 (25.0-35.0) pg MCHC 33.9 (31.0-37.0) g/dL RDW 15.2 (11.5-15.5) % Plt Count 137 L (150-450) k/uL MPV 7.8 Neutrophils % 83 % Lymphocytes % 8 % Monocytes % 4 % Eosinophils % 2 % Basophils % 0 % Neutrophils # 7.7 (1.3-7.7) k/uL Lymphocytes # 0.8 L (1.0-4.8) k/uL Monocytes # 0.4 (0-1.0) k/uL Eosinophils # 0.2 (0-0.7) k/uL Basophils # 0.0 (0-0.2) k/uL Plasma Lactic Acid Oscar 1.1 (0.7-2.0) mmol/L Disposition Clinical Impression: Osteomyelitis of finger of left hand Disposition: ADMITTED IP TO THIS [facility] Condition: Fair Referrals: Hayes Oshea MD [Primary Care Provider] - 1-2 days Time of Disposition: 14:12
[2023-02-16 15:40] LABS: Glucose 169 mg/dL (74-99)
[2023-02-16 15:44] LABS: Potassium 3.6 mmol/L (3.5-5.1)
[2023-02-16 15:49] LABS: Erythrocyte Sedimentation Rate 116 mm/hr (0-15)
[2023-02-16] MEDS: carvediloL 6.25 MG TAB PO SCH (18:20)
[2023-02-16] MEDS: CALCIUM ACETATE 667 MG TAB PO SCH (18:20)
[2023-02-16] MEDS: HYDROcodone/APAP 10-325MG 1 EACH TAB PO PRN (18:20)
[2023-02-16 20:13] LABS: Glucose,Whole Blood 214 mg/dL (70-110)
[2023-02-16] MEDS: LEVOTHYROXINE 100 MCG TAB PO SCH (21:04)
[2023-02-16] MEDS: lisinopriL 5 MG TAB PO SCH (21:04)
[2023-02-16] MEDS: INSULIN DETEMIR (LEVEMIR) 100 UNIT/ML SYR SQ SCH (21:04)
[2023-02-16] MEDS: ATORVASTATIN 40 MG TAB PO SCH (21:04)
[2023-02-17] MEDS: HYDROcodone/APAP 10-325MG 1 EACH TAB PO PRN ×3 (03:26→20:20)
[2023-02-17 06:55] LABS: Glucose,Whole Blood 164 mg/dL (70-110)
[2023-02-17] MEDS ORDERED: DEXTROSE 50% SYRINGE 50 ML IVP PRN ×2 (08:37)
[2023-02-17] MEDS: TORSEMIDE 20 MG TAB PO SCH (09:00)
[2023-02-17] MEDS: CALCIUM ACETATE 667 MG TAB PO SCH ×2 (09:00→15:09)
[2023-02-17] MEDS: FLUoxetine HCL 20 MG CAP PO SCH (09:00)
[2023-02-17] MEDS: carvediloL 6.25 MG TAB PO SCH ×3 (09:00→15:33)
--- NOTE | 2023-02-17 09:32 | P.CNOR ---
History of Present Illness - HPI Consult date: 02/17/23 Consult reason: other (Left ring finger infection) History of present illness: The patient is a 62 y/o male well known to our practice with multiple medical problems including diabetes and chronic renal failure, who presented to the ER yesterday with a left ring finger infection. He states the finger started dr diana about 1 week ago and now the finger has an odor. X-rays were taken in the ER and revealed osteomyelitis. He does see Dr. Madera on an outpatient basis and has been off antibiotics for 1 month. He also injured his right hand recently with a toothpick and burnt his thumb with a chicken wing. He has multiple bandaides on his hands. There is pain and drainage from the right index finger that just started. He denies fever and chills. Orthopedic hand surgery was consulted for further evaluation of his left ring finger. He received one dose of Kefzol in the ER. Review of Systems Constitutional: Denies chills, Denies fatigue, Denies fever Cardiovascular: Denies chest pain, Denies shortness of breath Respiratory: Denies cough Gastrointestinal: Denies diarrhea, Denies nausea, Denies vomiting Musculoskeletal: bilateral: hand pain, hand swelling Past Medical History Past Medical History: Coronary Artery Disease (CAD), Cancer, Heart Failure, CVA/TIA, Diabetes Mellitus, Eye Disorder, Hypertension, Myocardial Infarction ([place]), Renal Disease, Sleep Apnea/CPAP/BIPAP, Thyroid Disorder Additional Past Medical History / Comment(s): unhealing sore left index finger, neuropathy bilateral lower extremity/feet, bilateral eye diabetic retinopathy/poor vision/multiple injections, ESRD with hemodialysis T//SAT from 6:15 to 11:00, anemia, "mini strokes" x2, AVANI with CPap use, occasional low back pain/disc disease, gout, hypothyroid Last Myocardial Infarction Date:: 10/20/20 History of Any Multi-Drug Resistant Organisms: MRSA Year Discovered:: 12/10/21 MDRO Source:: Finger-Right 5th Past Surgical History: Adenoidectomy, Bariatric Surgery, Cholecystectomy, Heart Catheterization, Heart Catheterization With Stent, Orthopedic Surgery, Tonsillectomy Additional Past Surgical History / Comment(s): 10/22/20 PCI with stents x2, lap banding, FX of right ankle repair pins / plate, fistual lt arm jul 2018, lt shoulder sx (d/t separation), colonoscopies, bilateral cataract removals/lens implants. LIF surgery 08/11/21 R LEG stacey placed January 2023 Past Anesthesia/Blood Transfusion Reactions: Motion Sickness Additional Past Anesthesia/Blood Transfusion Reaction / Comm: CLAUSTERPHOBIA Date of Last Stent Placement:: 10/22/20 Past Psychological History: Anxiety Additional Psychological History / Comment(s): Pt resides with his spouse. He no longer drives d/t vision loss. His spouse drives and organizes his medicati ons for him. He has a walker and uses a wheelchair if going distances (dialysis days). Smoking Status: Former smoker Past Alcohol Use History: None Reported Additional Past Alcohol Use History / Comment(s): Patient was a smoker of 2-3 packs per day for 35 years and quit in 2006. Past Drug Use History: None Reported - Past Family History Mother History Unknown: Yes Family Medical History: Coronary Artery Disease (CAD), Myocardial Infarction (NV) Additional Family Medical History / Comment(s): Mother at age 58 from multiple sclerosis Father Family Medical History: CVA/TIA, Myocardial Infarction ([place]) Additional Family Medical History / Comment(s): Father had history of NV and CVA followed by a second NV and CVA and at age 65. Brother(s) Additional Family Medical History / Comment(s): . Medications and Allergies Home Medications Medication Instructions Recorded Confirmed Type Levothyroxine Sodium 100 mcg PO DAILY 07/06/17 02/16/23 History Torsemide [Demadex] 40 mg PO DAILY 09/10/19 02/16/23 History Bryanna-Olimpia 1 tab PO DAILY 10/20/20 02/16/23 History HYDROcodone/APAP 10-325MG [[place] 1 tab PO Q6H 11/24/20 02/16/23 History 10-325] Insulin Regular, Human [Novolin R 15 unit SQ ACHS PRN 11/24/20 02/16/23 History Flexpen] Insulin Detemir [Levemir Flextouch 15 units SQ HS 02/05/21 02/16/23 History Pen] Nitroglycerin Sl Tabs [Nitrostat] 0.4 mg SL Q5M PRN 03/11/21 02/16/23 History Atorvastatin [Lipitor] 40 mg PO HS #30 tab 06/15/22 02/16/23 Rx carvediloL [Coreg] 6.25 mg PO BID-W/MEALS #60 tab 08/09/22 02/16/23 Rx lisinopriL [Zestril] 5 mg PO HS 10/07/22 02/16/23 History FLUoxetine HCL [PROzac] 40 mg PO DAILY 30 Days #30 cap 10/16/22 02/16/23 Rx Apixaban [Eliquis] 2.5 mg PO BID 02/16/23 02/16/23 History Allergies Allergy/AdvReac Type Severity Reaction Status Date / Time No Known Allergies Allergy Verified 02/16/23 15:41 Physical Examination The patient is a 62 y/o male who is no acute distress. He is alert and oriented x3. Exam of the left hand reveals an open area on the dorsal aspect of the left ring finger tip. This finger has had a previous partial amputation in the past. There is purulent drainage on the finger with an odor. There is minimal pain to the area due to his neuropathy. There is surrounding redness that does not extend past the MP joint. Circulatory status is intact. There is an open nail bed on the right index finger with either an old Aquacel silver dressing or sloughing tissue. No signs of active infection to the right index finger at this time. No active drainage. Results X-rays of the left ring finger reveals bony destruction consistent with osteomyelitis of the remaining distal bone. - Labs Labs: Abnormal Lab Results - Last 24 Hours (Table) 02/16/23 02/16/23 02/16/23 Range/Units 14:27 14:27 20:12 RBC 3.10 L (4.30-5.90) m/uL Hgb 10.0 L (13.0-17.5) gm/dL Hct 29.6 L (39.0-53.0) % Plt Count 137 L (150-450) k/uL Lymphocytes # 0.8 L (1.0-4.8) k/uL ESR 116 H (0-15) mm/hr Sodium 134 L (137-145) mmol/L Chloride 89 L (98-107) mmol/L Carbon Dioxide 34 H (22-30) mmol/L BUN 41 H (9-20) mg/dL Creatinine 4.26 H (0.66-1.25) mg/dL Glucose 169 H (74-99) mg/dL POC Glucose (mg/dL) 214 H (70-110) mg/dL Calcium 8.2 L (8.4-10.2) mg/dL C-Reactive Protein 14.8 H (<1.0) mg/dL Total Protein 6.2 L (6.3-8.2) g/dL Albumin 3.2 L (3.5-5.0) g/dL 02/17/23 Range/Units 06:52 RBC (4.30-5.90) m/uL Hgb (13.0-17.5) gm/dL Hct (39.0-53.0) % Plt Count (150-450) k/uL Lymphocytes # (1.0-4.8) k/uL ESR (0-15) mm/hr Sodium (137-145) mmol/L Chloride (98-107) mmol/L Carbon Dioxide (22-30) mmol/L BUN (9-20) mg/dL Creatinine (0.66-1.25) mg/dL Glucose (74-99) mg/dL POC Glucose (mg/dL) 164 H (70-110) mg/dL Calcium (8.4-10.2) mg/dL C-Reactive Protein (<1.0) mg/dL Total Protein (6.3-8.2) g/dL Albumin (3.5-5.0) g/dL H & H 02/16/23 Range/Units 14:27 Hgb 10.0 L (13.0-17.5) gm/dL Hct 29.6 L (39.0-53.0) % Result Diagrams: 02/16/23 14:27 02/16/23 14:27 Assessment and Plan (1) Osteomyelitis of finger of left hand Current Visit: Yes Status: Acute Code(s): M86.9 - OSTEOMYELITIS, UNSPECIFIED SNOMED Code(s): 8786908048023433 (2) Diabetes with skin ulcer Current Visit: No Status: Acute Code(s): E11.622 - TYPE 2 DIABETES MELLITUS WITH OTHER SKIN ULCER; L98.499 - NON-PRESSURE CHRONIC ULCER OF SKIN OF SITES W UNSP SEVERITY SNOMED Code(s): 80972042 (3) ESRD on hemodialysis Current Visit: No Status: Acute Code(s): N18.6 - END STAGE RENAL DISEASE; Z99.2 - DEPENDENCE ON RENAL DIALYSIS SNOMED Code(s): 645424905 Plan: The clinical and x-ray findings were discussed with the patient. The case was discussed with Dr. Christina. We are planning an I&D with MCP disarticulation of the left ring finger this afternoon. He will be NPO. He will received dialysis this afternoon and his potassium will checked after HD per anesthesia. Dr. Madera is on consult. [facility] pharmacy to dose will be ordered per Dr. Madera's recommendations. We will await clearance for surgery and follow the patient closely.
--- NOTE | 2023-02-17 10:26 | HP ---
HISTORY AND PHYSICAL CHIEF COMPLAINT: Left hand infection. HISTORY OF PRESENT ILLNESS: This 62-year-old gentleman with a past medical history of multiple medical problems also had multiple digit amputations. The patient is complaining of left hand infection, especially the 4th digit. The patient is not on any antibiotics recently. There is no history of any fever or rigors. His infectious disease and orthopedic evaluation is in progress. PAST MEDICAL HISTORY: Reviewed and includes CVA, TIA, CHF, diabetes mellitus type 2. Rest of the chart is also reviewed. HOME MEDICATIONS: Reviewed and include insulin dose, and rest of the medications reviewed. ALLERGIES: None. FAMILY HISTORY: History of CAD, myocardial infarction. SOCIAL HISTORY: Previously a smoker. REVIEW OF SYSTEMS: 14-point review is negative as mentioned. PHYSICAL EXAMINATION: VITAL SIGNS: Pulse is 93, blood pressure 132/70, respirations 18. HEENT: Conjunctivae normal. NECK: No jugular venous distention. CARDIOVASCULAR: S1, S2 muffled. RESPIRATORY: Breath sounds diminished at the bases. ABDOMEN: Soft, nontender. LEGS: No edema, no swelling. NERVOUS SYSTEM: No focal deficit. EXTREMITIES: Examination of both hands; multiple amputation of digits present. Infection of the left 4th digit also present. ASSESSMENT: 1. Left hand cellulitis and infection with left 4th digit infection. 2. History of multiple digit amputations because of infection. 3. Diabetes mellitus type 2. 4. History of congestive heart failure. 5. Hypertension. 6. Multiple medical issues. RECOMMENDATION: This 62-year-old gentleman presented with multiple complex medical issues. We will monitor the patient closely. We will initiate empiric antibiotics, obtain cultures, Infectious Disease evaluation. Monitor blood sugars closely. DVT prophylaxis. Prognosis is guarded. Further recommendations to follow. Discussed with the patient. MMODL / IJN: [id number] /
[2023-02-17] MEDS ORDERED: VANCOMYCIN IV PER PHARMACY 1 EACH MISC MISCELLANE PRN (10:32)
[2023-02-17] MEDS ORDERED: VANCOMYCIN 2,000 MG in SODIUM CHLORIDE 0.9% 500 ML 500 ML IVPB ONE (11:00)
[2023-02-17 11:29] LABS: Glucose,Whole Blood 219 mg/dL (70-110)
--- NOTE | 2023-02-17 12:59 | P.CRDCN ---
History of Present Illness Consult date: 02/17/23 History of present illness: HISTORY OF PRESENT ILLNESS: This is a 62-year-old male with a past medical history significant for hypertension, hyperlipidemia, coronary artery disease with previous intervention in 2020, paroxysmal atrial fibrillation, pericardial effusion with tamponade status post pericardial window in November 2020, End-stage renal disease on hemodialysis, hypertension, amputations the fingers on his left hand second or 2 osteomyelitis. Patient follows in the office with Dr. Jimenez. We have been asked to see the patient in consultation for cardiac clearance. Patient examined at the bedside. Patient presented to the hospital with a chief complaint of possible infection in his left ring finger. He reports redness and drainage. He has been seen by orthopedic surgery and is scheduled for I&D of his left ring finger today. He denies chest pain or pressure. He denies shortness of breath. Upon auscultation, he appears to be atrial fibrillation with controlled ventricular rate. * Laboratory data: WBC 9.2. Hemoglobin 10.0. Platelet count 137. Sodium 134. Potassium 3.6. BUN 41. Creatinine 4.26. Lactic acid 1.1. * Current home cardiac medications include Eliquis 5mg BID, Demadex 40 mg daily, Lipitor 40 mg at night, carvedilol 6.25 mg twice a day, and lisinopril 5mg at night * Most recent echocardiogram obtained in July 2022 revealed ejection fraction 50%, mild MR * Cardiac catheterization history: October 2020 with stenting of the mid RCA * Patient underwent Lexiscan stress test in July 2022 which was negative for ischemia REVIEW OF SYSTEMS: At the time of my exam: CONSTITUTIONAL: Denies fever or chills. HEENT: Denies blurred vision, vision changes, or eye pain. Denies hemoptysis CARDIOVASCULAR: Denies chest pain. Denies orthopnea. Denies PND. Denies palpitat ions RESPIRATORY: Denies shortness of breath. GASTROINTESTINAL: Denies abdominal pain. Denies nausea or vomiting. HEMATOLOGIC: Denies bleeding disorders. GENITOURINARY: Denies any blood in urine. SKIN: Denies pruitis. Denies rash. PHYSICAL EXAM: VITAL SIGNS: Reviewed. GENERAL: Well-developed in no acute distress. HEENT: Head is normocephalic. Pupils are equal, round. Sclerae anicteric. Mucous membranes of the mouth are moist. Neck supple. No JVD or thyromegaly LUNGS: Respirations even and unlabored. Lungs essentially clear to auscultation bilaterally. HEART: Irregular rate and rhythm. S1 and S2 heard. ABDOMEN: Soft. Nondistended. Nontender. EXTREMITIES: Normal range of motion. No clubbing or cyanosis. Peripheral pulses intact. No lower extremity edema NEUROLOGIC: Awake and alert. Oriented x 3. ASSESSMENT: Left fourth finger osteomyelitis, scheduled for I&D Coronary artery disease with previous stenting of the RCA, 2020 Paroxysmal atrial fibrillation End-stage renal disease on hemodialysis Hypertension Hyperlipidemia History of CVA History of osteomyelitis with previous finger amputations PLAN: No need to repeat echocardiogram as this was performed in July 2022 Obtain EKG Continue current cardiac medications Anticoagulation remains on hold secondary to surgical procedure planned for today. Resume post procedure There are no absolute contraindications for patient to undergo surgery today from a cardiac standpoint We will follow on an as-needed basis. Please call with questions or concerns. Nurse practitioner note has been reviewed by physician. Signing provider agrees with the documented findings, assessment, and plan of care. Past Medical History Past Medical History: Coronary Artery Disease (CAD), Cancer, Heart Failure, CVA/TIA, Diabetes Mellitus, Eye Disorder, Hypertension, Myocardial Infarction ([place]), Renal Disease, Sleep Apnea/CPAP/BIPAP, Thyroid Disorder Additional Past Medical History / Comment(s): unhealing sore left index finger, neuropathy bilateral lower extremity/feet, bilateral eye diabetic retinopathy/poor vision/multiple injections, ESRD with hemodialysis T/TH/SAT from 6:15 to 11:00, anemia, "mini strokes" x2, AVANI with CPap use, occasional low back pain/disc disease, gout, hypothyroid Last Myocardial Infarction Date:: 10/20/20 History of Any Multi-Drug Resistant Organisms: MRSA Date of last positivie culture/infection: 12/10/21 MDRO Source:: Finger-Right 5th Past Surgical History: Adenoidectomy, Bariatric Surgery, Cholecystectomy, Heart Catheterization, Heart Catheterization With Stent, Orthopedic Surgery, Tonsillectomy Additional Past Surgical History / Comment(s): 10/22/20 PCI with stents x2, lap banding, FX of right ankle repair pins / plate, fistual lt arm jul 2018, lt shoulder sx (d/t separation), colonoscopies, bilateral cataract removals/lens implants. LIF surgery 08/11/21 R LEG stacey placed January 2023 Past Anesthesia/Blood Transfusion Reactions: Motion Sickness Additional Past Anesthesia/Blood Transfusion Reaction / Comment(s): CLAUSTERPHOBIA Date of Last Stent Placement:: 10/22/20 Past Psychological History: Anxiety Additional Psychological History / Comment(s): Pt resides with his spouse. He no longer drives d/t vision loss. His spouse drives and organizes his medications for him. He has a walker and uses a wheelchair if going distances (dialysis days). Smoking Status: Former smoker Past Alcohol Use History: None Reported Additional Past Alcohol Use History / Comment(s): Patient was a smoker of 2-3 packs per day for 35 years and quit in 2006. Past Drug Use History: None Reported - Past Family History Mother History Unknown: Yes Family Medical History: Coronary Artery Disease (CAD), Myocardial Infarction ([place]) Additional Family Medical History / Comment(s): Mother at age 58 from multiple sclerosis Father Family Medical History: CVA/TIA, Myocardial Infarction ([place]) Additional Family Medical History / Comment(s): Father had history of [place] and CVA followed by a second [place] and CVA and at age 65. Brother(s) Additional Family Medical History / Comment(s): . Medications and Allergies Home Medications Medication Instructions Recorded Confirmed Type Levothyroxine Sodium 100 mcg PO DAILY 07/06/17 02/16/23 History Torsemide [Demadex] 40 mg PO DAILY 09/10/19 02/16/23 History Bryanna-Olimpia 1 tab PO DAILY 10/20/20 02/16/23 History HYDROcodone/APAP 10-325MG [[place] 1 tab PO Q6H 11/24/20 02/16/23 History 10-325] Insulin Regular, Human [Novolin R 15 unit SQ ACHS PRN 11/24/20 02/16/23 History Flexpen] Insulin Detemir [Levemir Flextouch 15 units SQ HS 02/05/21 02/16/23 History Pen] Nitroglycerin Sl Tabs [Nitrostat] 0.4 mg SL Q5M PRN 03/11/21 02/16/23 History Atorvastatin [Lipitor] 40 mg PO HS #30 tab 06/15/22 02/16/23 Rx carvediloL [Coreg] 6.25 mg PO BID-W/MEALS #60 tab 08/09/22 02/16/23 Rx lisinopriL [Zestril] 5 mg PO HS 10/07/22 02/16/23 History FLUoxetine HCL [PROzac] 40 mg PO DAILY 30 Days #30 cap 10/16/22 02/16/23 Rx Apixaban [Eliquis] 2.5 mg PO BID 02/16/23 02/16/23 History Allergies Allergy/AdvReac Type Severity Reaction Status Date / Time No Known Allergies Allergy Verified 02/16/23 15:41 Physical Exam Vitals: Vital Signs Temp Pulse Pulse Resp BP BP Pulse Ox 02/17/23 11:25 97.8 F 108 H 18 115/63 100 02/17/23 09:27 98.0 F 96 20 138/69 98 02/17/23 08:45 93 18 02/17/23 06:49 98.3 F 93 18 132/57 100 02/17/23 02:51 97.9 F 66 18 164/106 100 02/16/23 18:18 98.0 F 124 H 18 171/91 100 02/16/23 17:01 98.6 F 114 H 18 129/86 97 02/16/23 14:46 114 H 18 165/105 100 02/16/23 12:39 97.6 F 95 20 136/59 98 Intake and Output 02/16/23 02/17/23 02/17/23 22:59 06:59 14:59 Intake Total 120 590 Output Total 150 200 Balance -30 390 Intake: Oral 120 590 Output: Urine 150 200 Other: Voiding Method Urinal Urinal # Bowel Movements 1 Weight 131.542 kg 137 kg Results 02/16/23 14:27 02/16/23 14:27 Cardiac Enzymes 02/16/23 Range/Units 14:27 AST 18 (17-59) U/L CBC 02/16/23 Range/Units 14:27 WBC 9.2 (3.8-10.6) k/uL RBC 3.10 L (4.30-5.90) m/uL Hgb 10.0 L (13.0-17.5) gm/dL Hct 29.6 L (39.0-53.0) % Plt Count 137 L (150-450) k/uL Comprehensive Metabolic Panel 02/16/23 Range/Units 14:27 Sodium 134 L (137-145) mmol/L Potassium 3.6 (3.5-5.1) mmol/L Chloride 89 L (98-107) mmol/L Carbon Dioxide 34 H (22-30) mmol/L BUN 41 H (9-20) mg/dL Creatinine 4.26 H (0.66-1.25) mg/dL Glucose 169 H (74-99) mg/dL Calcium 8.2 L (8.4-10.2) mg/dL AST 18 (17-59) U/L ALT 23 (4-49) U/L Alkaline Phosphatase 87 (38-126) U/L Total Protein 6.2 L (6.3-8.2) g/dL Albumin 3.2 L (3.5-5.0) g/dL Current Medications Generic Name Dose Route Start Last Admin Trade Name Freq PRN Reason Stop Dose Admin Acetaminophen 650 mg 02/16/23 14:38 Acetaminophen Tab 325 Mg Tab PO Q6HR PRN Mild Pain or Fever > 100.5 Hydrocodone Bitart/Acetaminophen 1 each 02/16/23 14:40 02/17/23 09:40 Hydrocodone/Apap 10-325mg 1 Each Tab PO 1 each QID PRN Administration Pain Atorvastatin Calcium 40 mg 02/16/23 21:00 02/16/23 21:04 Atorvastatin 40 Mg Tab PO 40 mg HS ALINE Administration Calcium Acetate 1,334 mg 02/16/23 17:30 02/17/23 09:00 Calcium Acetate 667 Mg Tab PO 1,334 mg BID-W/MEALS ALINE Administration Carvedilol 6.25 mg 02/16/23 17:30 02/17/23 09:00 Carvedilol 6.25 Mg Tab PO 6.25 mg BID-W/MEALS ALINE Administration Dextrose/Water 25 ml 02/17/23 08:37 Dextrose 50% Syringe 50 Ml IVP PER PROTOCOL PRN Hypoglycemia Protocol Dextrose/Water 50 ml 02/17/23 08:37 Dextrose 50% Syringe 50 Ml IVP PER PROTOCOL PRN Hypoglycemia Protocol Fluoxetine HCl 40 mg 02/17/23 09:00 02/17/23 09:00 Fluoxetine Hcl 20 Mg Cap PO 40 mg DAILY ALINE Administration Cefazolin Sodium 2 gm/ Sodium 50 mls @ 100 mls/hr 02/17/23 10:00 02/17/23 10:56 Chloride IVPB 100 mls/hr Q8HR ALINE Administration Protocol Vancomycin HCl 2,000 mg/ 500 mls @ 167 mls/hr 02/17/23 11:00 Sodium Chloride IVPB 02/17/23 13:59 ONCE ONE Vancomycin HCl 2,000 mg/ 500 mls @ 167 mls/hr 02/18/23 12:00 Sodium Chloride IVPB 02/18/23 14:59 ONCE ONE Insulin Aspart 0 unit 02/17/23 12:30 Insulin Aspart (Novolog) 100 Unit/Ml Vial SQ ACHS [facility] Protocol Insulin Detemir 60 unit 02/16/23 21:00 02/16/23 21:04 Insulin Detemir (Levemir) 100 Unit/Ml Syr SQ 15 unit HS ALINE Administration Levothyroxine Sodium 100 mcg 02/16/23 21:00 02/16/23 21:04 Levothyroxine 100 Mcg Tab PO 100 mcg HS ALINE Administration Lisinopril 5 mg 02/16/23 21:00 02/16/23 21:04 Lisinopril 5 Mg Tab PO 5 mg HS [facility] Administration Lorazepam 0.5 mg 02/17/23 09:50 Lorazepam 0.5 Mg Tab PO Q8HR PRN Anxiety Melatonin 5 mg 02/17/23 21:00 Melatonin 5 Mg Tablet PO HS [facility] Miscellaneous Information 1 each 02/17/23 10:32 Vancomycin Iv Per Pharmacy 1 Each Misc MISCELLANE DIRECTED PRN Per Protocol Protocol Naloxone HCl 0.2 mg 02/16/23 14:38 Naloxone 0.4 Mg/Ml 1 Ml Vial IV Q2M PRN Opioid Reversal Non-Formulary Medication 30 unit 02/16/23 14:40 Insulin Regular, Human [Novolin R Flexpen] SQ ACHS PRN Blood Sugar - High Oxycodone/Acetaminophen 1 each 02/16/23 14:40 Oxycodone-Apap 5-325mg 1 Each Tab PO Q6HR PRN Pain Torsemide 40 mg 02/17/23 09:00 02/17/23 09:00 Torsemide 20 Mg Tab PO 40 mg DAILY ALINE Administration Intake and Output 02/16/23 02/17/23 02/17/23 22:59 06:59 14:59 Intake Total 120 590 Output Total 150 200 Balance -30 390 Intake: Oral 120 590 Output: Urine 150 200 Other: Voiding Method Urinal Urinal # Bowel Movements 1 Weight 131.542 kg 137 kg 02/16/23 14:27 02/16/23 14:27
[2023-02-17] MEDS: INSULIN ASPART (NovoLOG) 100 UNIT/ML VIAL SQ SCH ×3 (13:22→20:37)
[2023-02-17] MEDS: LORazepam 0.5 MG TAB PO PRN ×2 (15:36→22:44)
[2023-02-17] MEDS: AMPICILLIN-SULBACTAM 3 GM in SODIUM CHLORIDE 0.9% 100 ML IVPB SCH (16:35)
[2023-02-17 17:00] LABS: Glucose,Whole Blood 138 mg/dL (70-110)
[2023-02-17] MEDS ORDERED: ePHEDrine 50 MG/ML 1 ML VIAL ONE (18:07)
[2023-02-17] MEDS ORDERED: PHENYLEPHRINE-0.9% NACL SYG 1,000 MCG/10 ML SYRINGE ONE (18:07)
[2023-02-17] MEDS ORDERED: KETAMINE 10 MG/ML 20 ML VIAL ONE (18:07)
[2023-02-17] MEDS ORDERED: MIDAZOLAM 2 MG/2 ML VIAL ONE (18:07)
[2023-02-17] MEDS ORDERED: fentaNYL (PF) 50 MCG/ML 2 ML AMP ONE (18:07)
[2023-02-17] MEDS ORDERED: WATER FOR INJECTION, STERILE 10 ML VIAL IV ONE (18:07)
[2023-02-17] MEDS ORDERED: PROPOFOL 10 MG/ML 20 ML VIAL IV ONE (18:07)
[2023-02-17] MEDS ORDERED: LIDOCAINE 2%-EPI 1:100,000 20 ML VIAL SQ ONE ×2 (18:12→18:23)
[2023-02-17] MEDS ORDERED: BUPIVACAINE (PF) 0.25% 30 ML VIAL SQ ONE ×2 (18:12→18:23)
[2023-02-17] MEDS ORDERED: LACTATED RINGERS 800 ML IV ONE (18:12)
--- NOTE | 2023-02-17 18:38 | P.NPCON ---
History of Present Illness - Reason for Consult end stage renal disease - History of Present Illness Patient is a 62 year old male with ESRD maintained on HD on a TTS schedule. Patient has history of celluitis and osteomyelitis of digits of both hands, s/p last course of antibiotics about 1 month ago. Patient noticed increased drainage from left ring finger and right hand digit as well. He has been admitted for wound debridement and antibiotics. No h/o fever, chills, n/v/d No CP. Scheduled for OR at 5.00pm today. Patient is scheduled for HD treatment before OR. However, he will not be able to complete a full treatment today and will run again in am. Review of Systems as per HPI. Past Medical History Past Medical History: Coronary Artery Disease (CAD), Cancer, Heart Failure, CVA/TIA, Diabetes Mellitus, Eye Disorder, Hypertension, Myocardial Infarction ([place]), Renal Disease, Sleep Apnea/CPAP/BIPAP, Thyroid Disorder Additional Past Medical History / Comment(s): unhealing sore left index finger, neuropathy bilateral lower extremity/feet, bilateral eye diabetic retinopathy/poor vision/multiple injections, ESRD with hemodialysis T//SAT from 6:15 to 11:00, anemia, "mini strokes" x2, AVANI with CPap use, occasional low back pain/disc disease, gout, hypothyroid Last Myocardial Infarction Date:: 10/20/20 History of Any Multi-Drug Resistant Organisms: MRSA Date of last positivie culture/infection: 12/10/21 MDRO Source:: Finger-Right 5th Past Surgical History: Adenoidectomy, Bariatric Surgery, Cholecystectomy, Heart Catheterization, Heart Catheterization With Stent, Orthopedic Surgery, Tonsillectomy Additional Past Surgical History / Comment(s): 10/22/20 PCI with stents x2, lap banding, FX of right ankle repair pins / plate, fistual lt arm jul 2018, lt shoulder sx (d/t separation), colonoscopies, bilateral cataract removals/lens implants. LIF surgery 08/11/21 R LEG stacey placed January 2023 Past Anesthesia/Blood Transfusion Reactions: Motion Sickness Additional Past Anesthesia/Blood Transfusion Reaction / Comment(s): CLAUSTERPHOBIA Date of Last Stent Placement:: 10/22/20 Past Psychological History: Anxiety Additional Psychological History / Comment(s): Pt resides with his spouse. He no longer drives d/t vision loss. His spouse drives and organizes his medications for him. He has a walker and uses a wheelchair if going distances (dialysis days). Smoking Status: Former smoker Past Alcohol Use History: None Reported Additional Past Alcohol Use History / Comment(s): Patient was a smoker of 2-3 packs per day for 35 years and quit in 2006. Past Drug Use History: None Reported - Past Family History Mother History Unknown: Yes Family Medical History: Coronary Artery Disease (CAD), Myocardial Infarction ([place]) Additional Family Medical History / Comment(s): Mother at age 58 from multiple sclerosis Father Family Medical History: CVA/TIA, Myocardial Infarction ([place]) Additional Family Medical History / Comment(s): Father had history of [place] and CVA followed by a second [place] and CVA and at age 65. Brother(s) Additional Family Medical History / Comment(s): . Medications and Allergies Home Medications Medication Instructions Recorded Confirmed Type Levothyroxine Sodium 100 mcg PO DAILY 07/06/17 02/16/23 History Torsemide [Demadex] 40 mg PO DAILY 09/10/19 02/16/23 History Bryanna-Olimpia 1 tab PO DAILY 10/20/20 02/16/23 History HYDROcodone/APAP 10-325MG [[place] 1 tab PO Q6H 11/24/20 02/16/23 History 10-325] Insulin Regular, Human [Novolin R 15 unit SQ ACHS PRN 11/24/20 02/16/23 History Flexpen] Insulin Detemir [Levemir Flextouch 15 units SQ HS 02/05/21 02/16/23 History Pen] Nitroglycerin Sl Tabs [Nitrostat] 0.4 mg SL Q5M PRN 03/11/21 02/16/23 History Atorvastatin [Lipitor] 40 mg PO HS #30 tab 06/15/22 02/16/23 Rx carvediloL [Coreg] 6.25 mg PO BID-W/MEALS #60 tab 08/09/22 02/16/23 Rx lisinopriL [Zestril] 5 mg PO HS 10/07/22 02/16/23 History FLUoxetine HCL [PROzac] 40 mg PO DAILY 30 Days #30 cap 10/16/22 02/16/23 Rx Apixaban [Eliquis] 2.5 mg PO BID 02/16/23 02/16/23 History Allergies Allergy/AdvReac Type Severity Reaction Status Date / Time No Known Allergies Allergy Verified 02/16/23 15:41 Physical Exam Vitals: Vital Signs Temp Pulse Resp BP Pulse Ox 02/17/23 17:53 167/74 02/17/23 17:42 117 H 16 194/104 98 02/17/23 17:05 98.6 F 104 H 18 160/94 02/17/23 15:39 166/80 02/17/23 11:25 97.8 F 108 H 18 115/63 100 02/17/23 09:27 98.0 F 96 20 138/69 98 02/17/23 08:45 93 18 02/17/23 06:49 98.3 F 93 18 132/57 100 02/17/23 02:51 97.9 F 66 18 164/106 100 Intake and Output 02/17/23 02/17/23 02/17/23 06:59 14:59 22:59 Intake Total 590 740 Output Total 674 401 1336 Balance 390 -100 -1160 Intake: Oral 590 240 Hemodialysis 500 Output: Urine 200 100 400 Hemodialysis 1500 Other: Voiding Method Urinal # Voids 1 Weight 137 kg Patient is awake, alert and oriented x3. Lungs are clear. CVS S1 and S2 Abdomen is soft, nontender. Extremities show no significant edema. Multiple band aids both hands with multiple digit amputations bilaterally. Results - Lab Results Most recent lab results Calcium 8.2 mg/dL (8.4-10.2) L 02/16/23 14:27 02/16/23 14:27 02/17/23 16:30 Assessment and Plan Assessment: 1. ESRD on HD on a TTS schedule via Left arm AVF 2. Bilateral hand wounds on digits with h/o previous osteomyelitis and multiple amputations. 3. CKD mineral bone disorder. 4. Obesity. Plan: Hemodialysis today. Repeat HD in am as pt will not complete his treatment today. No heparin with treatment today.
[2023-02-17] MEDS ORDERED: BACITRACIN ZINC 500 UNIT/GM OINT 28.4 GM TUBE TOPICAL ONE (18:55)
[2023-02-17 20:31] LABS: Glucose,Whole Blood 159 mg/dL (70-110)
--- NOTE | 2023-02-17 20:36 | P.CONS ---
History of Present Illness - Reason for Consult Consult date: 02/17/23 - History of Present Illness Patient is a 62-year-old male with multiple comorbidities including diabetes mellitus did have a history of end-stage disease on hemodialysis patient had history of multiple finger infection and abscess and requiring amputation of multiple fingers, patient is now presenting to the hospital concerning for left ring finger becoming swollen red with a wound on the dorsal aspect has some foul-smelling drainage patient's symptom has been getting worse for the last few days denies any history of any trauma or bone patient on presentation to the hospital was afebrile no fever has bradycardia subsequently patient did have a normal white count elevated sed rate uric acid has been eleva calvin with abnormal patient did have x-ray of the finger finding consistent with osteomyelitis involving the distal aspect of the proximal fourth phalanx with dislocation of the residual amputated fourth middle phalanx and associated ulceration patient was given a dose of cefazolin admitted to hospital infectious disease was consulted for further management of antibiotic therapy patient has been evaluated by orthopedics and planning for amputation of the left fourth finger this afternoon Past Medical History Past Medical History: Coronary Artery Disease (CAD), Cancer, Heart Failure, CVA/TIA, Diabetes Mellitus, Eye Disorder, Hypertension, Myocardial Infarction ([place]), Renal Disease, Sleep Apnea/CPAP/BIPAP, Thyroid Disorder Additional Past Medical History / Comment(s): unhealing sore left index finger, neuropathy bilateral lower extremity/feet, bilateral eye diabetic retinopathy/poor vision/multiple injections, ESRD with hemodialysis T/TH/SAT from 6:15 to 11:00, anemia, "mini strokes" x2, AVANI with CPap use, occasional low back pain/disc disease, gout, hypothyroid Last Myocardial Infarction Date:: 10/20/20 History of Any Multi-Drug Resistant Organisms: MRSA Year Discovered:: 12/10/21 MDRO Source:: Finger-Right 5th Past Surgical History: Adenoidectomy, Bariatric Surgery, Cholecystectomy, Heart Catheterization, Heart Catheterization With Stent, Orthopedic Surgery, Tonsillectomy Additional Past Surgical History / Comment(s): 10/22/20 PCI with stents x2, lap banding, FX of right ankle repair pins / plate, fistual lt arm jul 2018, lt shoulder sx (d/t separation), colonoscopies, bilateral cataract removals/lens implants. LIF surgery 08/11/21 R LEG stacey placed January 2023 Past Anesthesia/Blood Transfusion Reactions: Motion Sickness Additional Past Anesthesia/Blood Transfusion Reaction / Comm: CLAUSTERPHOBIA Date of Last Stent Placement:: 10/22/20 Past Psychological History: Anxiety Additional Psychological History / Comment(s): Pt resides with his spouse. He no longer drives d/t vision loss. His spouse drives and organizes his medications for him. He has a walker and uses a wheelchair if going distances (dialysis days). Smoking Status: Former smoker Past Alcohol Use History: None Reported Additional Past Alcohol Use History / Comment(s): Patient was a smoker of 2-3 packs per day for 35 years and quit in 2006. Past Drug Use History: None Reported - Past Family History Mother History Unknown: Yes Family Medical History: Coronary Artery Disease (CAD), Myocardial Infarction ([place]) Additional Family Medical History / Comment(s): Mother at age 58 from multiple sclerosis Father Family Medical History: CVA/TIA, Myocardial Infarction ([place]) Additional Family Medical History / Comment(s): Father had history of [place] and CVA followed by a second [place] and CVA and at age 65. Brother(s) Additional Family Medical History / Comment(s): . Medications and Allergies Home Medications Medication Instructions Recorded Confirmed Type Levothyroxine Sodium 100 mcg PO DAILY 07/06/17 02/16/23 History Torsemide [Demadex] 40 mg PO DAILY 09/10/19 02/16/23 History Bryanna-Olimpia 1 tab PO DAILY 10/20/20 02/16/23 History HYDROcodone/APAP 10-325MG [[place] 1 tab PO Q6H 11/24/20 02/16/23 History 10-325] Insulin Regular, Human [Novolin R 15 unit SQ ACHS PRN 11/24/20 02/16/23 History Flexpen] Insulin Detemir [Levemir Flextouch 15 units SQ HS 02/05/21 02/16/23 History Pen] Nitroglycerin Sl Tabs [Nitrostat] 0.4 mg SL Q5M PRN 03/11/21 02/16/23 History Atorvastatin [Lipitor] 40 mg PO HS #30 tab 06/15/22 02/16/23 Rx carvediloL [Coreg] 6.25 mg PO BID-W/MEALS #60 tab 08/09/22 02/16/23 Rx lisinopriL [Zestril] 5 mg PO HS 10/07/22 02/16/23 History FLUoxetine HCL [PROzac] 40 mg PO DAILY 30 Days #30 cap 10/16/22 02/16/23 Rx Apixaban [Eliquis] 2.5 mg PO BID 02/16/23 02/16/23 History Allergies Allergy/AdvReac Type Severity Reaction Status Date / Time No Known Allergies Allergy Verified 02/16/23 15:41 Physical Exam Vitals: Vital Signs Temp Pulse Pulse Resp BP BP Pulse Ox 02/17/23 08:45 93 18 02/17/23 06:49 98.3 F 93 18 132/57 100 02/17/23 02:51 97.9 F 66 18 164/106 100 02/16/23 18:18 98.0 F 124 H 18 171/91 100 02/16/23 17:01 98.6 F 114 H 18 129/86 97 02/16/23 14:46 114 H 18 165/105 100 02/16/23 12:39 97.6 F 95 20 136/59 98 Intake and Output 02/16/23 02/17/23 02/17/23 22:59 06:59 14:59 Intake Total 120 590 Output Total 150 200 Balance -30 390 Intake: Oral 120 590 Output: Urine 150 200 Other: Voiding Method Urinal Urinal # Bowel Movements 1 Weight 131.542 kg 137 kg Results CBC & Chem 7: 02/16/23 14:27 02/18/23 05:21 Labs: Abnormal Lab Results - Last 24 Hours (Table) 02/16/23 02/16/23 02/16/23 Range/Units 14:27 14:27 20:12 RBC 3.10 L (4.30-5.90) m/uL Hgb 10.0 L (13.0-17.5) gm/dL Hct 29.6 L (39.0-53.0) % Plt Count 137 L (150-450) k/uL Lymphocytes # 0.8 L (1.0-4.8) k/uL ESR 116 H (0-15) mm/hr Sodium 134 L (137-145) mmol/L Chloride 89 L (98-107) mmol/L Carbon Dioxide 34 H (22-30) mmol/L BUN 41 H (9-20) mg/dL Creatinine 4.26 H (0.66-1.25) mg/dL Glucose 169 H (74-99) mg/dL POC Glucose (mg/dL) 214 H (70-110) mg/dL Calcium 8.2 L (8.4-10.2) mg/dL C-Reactive Protein 14.8 H (<1.0) mg/dL Total Protein 6.2 L (6.3-8.2) g/dL Albumin 3.2 L (3.5-5.0) g/dL 02/17/23 Range/Units 06:52 RBC (4.30-5.90) m/uL Hgb (13.0-17.5) gm/dL Hct (39.0-53.0) % Plt Count (150-450) k/uL Lymphocytes # (1.0-4.8) k/uL ESR (0-15) mm/hr Sodium (137-145) mmol/L Chloride (98-107) mmol/L Carbon Dioxide (22-30) mmol/L BUN (9-20) mg/dL Creatinine (0.66-1.25) mg/dL Glucose (74-99) mg/dL POC Glucose (mg/dL) 164 H (70-110) mg/dL Calcium (8.4-10.2) mg/dL C-Reactive Protein (<1.0) mg/dL Total Protein (6.3-8.2) g/dL Albumin (3.5-5.0) g/dL Assessment and Plan Plan: 1patient presented to hospital with left fourth finger ulceration foul-smelling drainage abnormal x-ray suggestive of osteomyelitis in this patient with und erlying diabetes mellitus and dialysis we will need to cover for both gram- positive as well as gram-negative anaerobes and anaerobes 2-local culture has been obtained to guide further antibiotic therapy 3-vancomycin pharmacy to dose and Unasyn 3 g daily while waiting for the culture to finalize We will follow on clinical condition and cultures to further adjust medication if needed Thank you for this consultation we will follow the patient along with you Time with Patient: Greater than 30
[2023-02-17] MEDS: INSULIN DETEMIR (LEVEMIR) 100 UNIT/ML SYR SQ SCH (22:20)
[2023-02-17] MEDS: lisinopriL 5 MG TAB PO SCH (22:28)
[2023-02-17] MEDS: ATORVASTATIN 40 MG TAB PO SCH (22:29)
[2023-02-17] MEDS: LEVOTHYROXINE 100 MCG TAB PO SCH (22:29)
[2023-02-17] MEDS: MELATONIN 5 MG TABLET PO SCH (22:29)
[2023-02-18] MEDS: HYDROcodone/APAP 10-325MG 1 EACH TAB PO PRN ×3 (02:20→15:30)
[2023-02-18] MEDS: AMPICILLIN-SULBACTAM 3 GM in SODIUM CHLORIDE 0.9% 100 ML IVPB SCH ×2 (02:21→12:31)
[2023-02-18 06:11] LABS: African American GFR (CKD) 17 (>60 ml/min/1.73 sqM); Anion Gap 15 mmol/L; Blood Urea Nitrogen 35 mg/dL (9-20); Calcium 7.7 mg/dL (8.4-10.2); Carbon Dioxide 26 mmol/L (22-30); Chloride 94 mmol/L (98-107); Glucose 178 mg/dL (74-99); Non-African American GFR(CKD) 15 (>60 ml/min/1.73 sqM); Potassium 3.3 mmol/L (3.5-5.1); Sodium 135 mmol/L (137-145)
[2023-02-18 07:08] LABS: Glucose,Whole Blood 187 mg/dL (70-110)
[2023-02-18] MEDS: CALCIUM ACETATE 667 MG TAB PO SCH ×2 (08:46→17:31)
[2023-02-18] MEDS: INSULIN ASPART (NovoLOG) 100 UNIT/ML VIAL SQ SCH ×4 (08:46→21:14)
[2023-02-18] MEDS: FLUoxetine HCL 20 MG CAP PO SCH (08:47)
[2023-02-18] MEDS: carvediloL 6.25 MG TAB PO SCH ×2 (08:47→17:32)
[2023-02-18] MEDS: TORSEMIDE 20 MG TAB PO SCH (08:55)
--- NOTE | 2023-02-18 10:44 | P.PN ---
Subjective Progress Note Date: 02/18/23 Principal diagnosis: Status post left ring finger MP disarticulation amputation This is a 62 year-old male post left ring finger MP disarticulation amputation. This is post-op day 1. The patient was evaluated at the bedside this morning. The patient denies nausea, vomiting, abdominal pain, chest pain, or shortness of breath this morning. He states her pain is moderately controlled at this time. The hand is throbbing this morning. The patient is currently receiving hemodi alysis. Objective - Vital Signs Vital signs: Vital Signs Temp 97.8 F 02/18/23 07:10 Pulse 117 H 02/18/23 07:10 Resp 18 02/18/23 07:10 BP 152/93 02/18/23 07:10 Pulse Ox 96 02/18/23 07:10 FiO2 Intake & Output 02/17/23 02/18/23 02/18/23 18:59 06:59 18:59 Intake Total 1040 1440 Output Total 2000 5 250 Balance -960 1435 -250 Weight 132.5 kg Intake: IV 300 0 Oral 240 1440 Hemodialysis 500 Output: Urine 500 250 Hemodialysis 1500 Estimated Blood Loss 5 Other: Voiding Method Urinal # Voids 1 1 - Exam The patient is a 62 y/o male in no acute distress. The left hand dressing is clean and dry. Swelling is minimal. - Labs CBC & Chem 7: 02/16/23 14:27 02/18/23 05:21 Labs: Abnormal Lab Results - Last 24 Hours (Table) 02/17/23 02/17/23 02/17/23 Range/Units 11:27 16:30 16:31 Sodium (137-145) mmol/L Potassium 3.1 L (3.5-5.1) mmol/L Chloride (98-107) mmol/L BUN (9-20) mg/dL Creatinine (0.66-1.25) mg/dL Glucose (74-99) mg/dL POC Glucose (mg/dL) 219 H (70-110) mg/dL Calcium (8.4-10.2) mg/dL Hep Bs Antibody A (Negative) 02/17/23 02/17/23 02/18/23 Range/Units 16:59 20:30 05:21 Sodium 135 L (137-145) mmol/L Potassium 3.3 L (3.5-5.1) mmol/L Chloride 94 L (98-107) mmol/L BUN 35 H (9-20) mg/dL Creatinine 4.09 H (0.66-1.25) mg/dL Glucose 178 H (74-99) mg/dL POC Glucose (mg/dL) 138 H 159 H (70-110) mg/dL Calcium 7.7 L (8.4-10.2) mg/dL Hep Bs Antibody (Negative) 02/18/23 Range/Units 07:07 Sodium (137-145) mmol/L Potassium (3.5-5.1) mmol/L Chloride (98-107) mmol/L BUN (9-20) mg/dL Creatinine (0.66-1.25) mg/dL Glucose (74-99) mg/dL POC Glucose (mg/dL) 187 H (70-110) mg/dL Calcium (8.4-10.2) mg/dL Hep Bs Antibody (Negative) Microbiology - Last 24 Hours (Table) 02/17/23 10:50 Gram Stain - Preliminary Hand - Left 02/16/23 14:27 Blood Culture - Preliminary Blood 02/16/23 14:27 Blood Culture - Preliminary Blood Assessment and Plan (1) Osteomyelitis of finger of left hand Current Visit: Yes Status: Acute Code(s): M86.9 - OSTEOMYELITIS, UNSPECIFIED SNOMED Code(s): 5109031966781571 (2) Diabetes with skin ulcer Current Visit: No Status: Acute Code(s): E11.622 - TYPE 2 DIABETES MELLITUS WITH OTHER SKIN ULCER; L98.499 - NON-PRESSURE CHRONIC ULCER OF SKIN OF SITES W UNSP SEVERITY SNOMED Code(s): 37347777 (3) ESRD on hemodialysis Current Visit: No Status: Acute Code(s): N18.6 - END STAGE RENAL DISEASE; Z99.2 - DEPENDENCE ON RENAL DIALYSIS SNOMED Code(s): 217610985 Plan: The clinical and operative findings were discussed with the patient. The case was discussed with Dr. Christina. Continue IV antibiotics per Dr. Madera. He is currently on Unasyn and Vanco. The left hand dressing can be changed tomorrow. Elevation of the left hand is recommended. Continue pain medication as needed. He may be discharged from an orthopedic standpoint when antibiotics are determined by Dr. Santy. We will continue to follow the patient.
[2023-02-18 11:16] LABS: Glucose,Whole Blood 191 mg/dL (70-110)
[2023-02-18] MEDS ORDERED: VANCOMYCIN 2,000 MG in SODIUM CHLORIDE 0.9% 500 ML 500 ML IVPB ONE (12:00)
--- NOTE | 2023-02-18 12:05 | P.PN ---
Subjective Patient is seen for follow-up for end-stage renal disease. Status post amputation of left ring finger for worsening infection and osteomyelitis. Patient currently has one digit which is his home on the left hand. Next Seen on hemodialysis Awaiting occupational therapy for on activities of daily living and help with prosthesis possibly. Objective - Vital Signs Vital signs: Vital Signs Temp 97.8 F 02/18/23 07:10 Pulse 117 H 02/18/23 07:10 Resp 18 02/18/23 07:10 BP 152/93 02/18/23 07:10 Pulse Ox 96 02/18/23 07:10 FiO2 Intake & Output 02/17/23 02/18/23 02/18/23 18:59 06:59 18:59 Intake Total 1040 1440 Output Total 2000 5 250 Balance -960 1435 -250 Weight 132.5 kg Intake: IV 300 0 Oral 240 1440 Hemodialysis 500 Output: Urine 500 250 Hemodialysis 1500 Estimated Blood Loss 5 Other: Voiding Method Urinal # Voids 1 1 - Exam Patient is awake, comfortable, no acute distress Alert oriented 3 Examination shows edema 2+ bilaterally lower extremities Mark at abdomen is soft obese nontender. - Labs CBC & Chem 7: 02/16/23 14:27 02/18/23 05:21 Labs: Abnormal Lab Results - Last 24 Hours (Table) 02/17/23 02/17/23 02/17/23 Range/Units 16:30 16:31 16:59 Sodium (137-145) mmol/L Potassium 3.1 L (3.5-5.1) mmol/L Chloride (98-107) mmol/L BUN (9-20) mg/dL Creatinine (0.66-1.25) mg/dL Glucose (74-99) mg/dL POC Glucose (mg/dL) 138 H (70-110) mg/dL Hemoglobin A1c (<=6.0) % Calcium (8.4-10.2) mg/dL Hep Bs Antibody A (Negative) 02/17/23 02/18/23 02/18/23 Range/Units 20:30 05:21 05:21 Sodium 135 L (137-145) mmol/L Potassium 3.3 L (3.5-5.1) mmol/L Chloride 94 L (98-107) mmol/L BUN 35 H (9-20) mg/dL Creatinine 4.09 H (0.66-1.25) mg/dL Glucose 178 H (74-99) mg/dL POC Glucose (mg/dL) 159 H (70-110) mg/dL Hemoglobin A1c 7.8 H (<=6.0) % Calcium 7.7 L (8.4-10.2) mg/dL Hep Bs Antibody (Negative) 02/18/23 02/18/23 Range/Units 07:07 11:14 Sodium (137-145) mmol/L Potassium (3.5-5.1) mmol/L Chloride (98-107) mmol/L BUN (9-20) mg/dL Creatinine (0.66-1.25) mg/dL Glucose (74-99) mg/dL POC Glucose (mg/dL) 187 H 191 H (70-110) mg/dL Hemoglobin A1c (<=6.0) % Calcium (8.4-10.2) mg/dL Hep Bs Antibody (Negative) Microbiology - Last 24 Hours (Table) 02/17/23 10:50 Gram Stain - Preliminary Hand - Left 02/16/23 14:27 Blood Culture - Preliminary Blood 02/16/23 14:27 Blood Culture - Preliminary Blood Assessment and Plan Assessment: 1. ESRD on HD on a TTS schedule via Left arm AVF 2. Bilateral hand wounds on digits with h/o previous osteomyelitis and multiple amputations. Status post amputation of left ring finger and continued on IV antibiotics. Drainage from the right middle finger is mild. 3. CKD mineral bone disorder. 4. Obesity. Plan: Repeat hemodialysis in a.m. as it is patient's regular scheduled day. Weigh patient posttreatment tomorrow to establish dry weight. Goal UF about 2 L today and about 2-3 L in a.m.
[2023-02-18] MEDS: HYDROmorphone 1 MG/ML 1 ML SYRINGE IVP PRN ×3 (12:30→21:14)
--- NOTE | 2023-02-18 16:32 | P.PN ---
Subjective Progress Note Date: 02/18/23 Principal diagnosis: Left ring finger abscess Osteomyelitis Patient is a 62-year-old male with multiple comorbidities including diabetes mellitus did have a history of end-stage disease on hemodialysis patient had history of multiple finger infection and abscess and requiring amputation of multiple fingers, patient is now presenting to the hospital concerning for left ring finger becoming swollen and red with evidence of wound and did have an abnormal x-ray suggestive of pneumonitis in this patient was status post left ring finger amputation by hand surgery on 02/17/2023 On today's evaluation that is 02/18/2023, the patient denies having any fever or any chills, the patient is breathing comfortably has been complaining of pain into the left hip controlled with the pain medication no chest pain shortness of breath or cough. Occasional nausea no vomiting no abdominal pain or diarrhea Objective - Vital Signs Vital signs: Vital Signs Temp 97.8 F 02/18/23 07:10 Pulse 117 H 02/18/23 07:10 Resp 18 02/18/23 07:10 BP 152/93 02/18/23 07:10 Pulse Ox 96 02/18/23 07:10 FiO2 Intake & Output 02/17/23 02/18/23 02/18/23 18:59 06:59 18:59 Intake Total 1040 1440 Output Total 2000 5 250 Balance -960 1435 -250 Weight 132.5 kg Intake: IV 300 0 Oral 240 1440 Hemodialysis 500 Output: Urine 500 250 Hemodialysis 1500 Estimated Blood Loss 5 Other: Voiding Method Urinal # Voids 1 1 - Exam GENERAL DESCRIPTION: Middle-age male lying in bed in no distress RESPIRATORY SYSTEM: Unlabored breathing , decreased breath sounds at bases HEART: S1 S2 regular rate and rhythm , ABDOMEN: Soft , no tenderness EXTREMITIES: Left leg is currently dressed, - Labs CBC & Chem 7: 02/16/23 14:27 02/18/23 05:21 Labs: Abnormal Lab Results - Last 24 Hours (Table) 02/17/23 02/17/23 02/17/23 Range/Units 16:30 16:31 16:59 Sodium (137-145) mmol/L Potassium 3.1 L (3.5-5.1) mmol/L Chloride (98-107) mmol/L BUN (9-20) mg/dL Creatinine (0.66-1.25) mg/dL Glucose (74-99) mg/dL POC Glucose (mg/dL) 138 H (70-110) mg/dL Hemoglobin A1c (<=6.0) % Calcium (8.4-10.2) mg/dL Hep Bs Antibody A (Negative) 02/17/23 02/18/23 02/18/23 Range/Units 20:30 05:21 05:21 Sodium 135 L (137-145) mmol/L Potassium 3.3 L (3.5-5.1) mmol/L Chloride 94 L (98-107) mmol/L BUN 35 H (9-20) mg/dL Creatinine 4.09 H (0.66-1.25) mg/dL Glucose 178 H (74-99) mg/dL POC Glucose (mg/dL) 159 H (70-110) mg/dL Hemoglobin A1c 7.8 H (<=6.0) % Calcium 7.7 L (8.4-10.2) mg/dL Hep Bs Antibody (Negative) 02/18/23 02/18/23 Range/Units 07:07 11:14 Sodium (137-145) mmol/L Potassium (3.5-5.1) mmol/L Chloride (98-107) mmol/L BUN (9-20) mg/dL Creatinine (0.66-1.25) mg/dL Glucose (74-99) mg/dL POC Glucose (mg/dL) 187 H 191 H (70-110) mg/dL Hemoglobin A1c (<=6.0) % Calcium (8.4-10.2) mg/dL Hep Bs Antibody (Negative) Microbiology - Last 24 Hours (Table) 02/17/23 10:50 Gram Stain - Preliminary Hand - Left 02/16/23 14:27 Blood Culture - Preliminary Blood 02/16/23 14:27 Blood Culture - Preliminary Blood Assessment and Plan (1) Osteomyelitis of finger of left hand Current Visit: Yes Status: Acute Code(s): M86.9 - OSTEOMYELITIS, UNSPECIFIED SNOMED Code(s): 4773352775522664 Plan: 1patient presented to hospital with left fourth finger ulceration foul-smelling drainage abnormal x-ray suggestive of osteomyelitis in this patient with underlying diabetes mellitus and dialysis we will need to cover for both gram-p ositive as well as gram-negative anaerobes and anaerobes 2-patient is status post amputation of the left ring finger by orthopedics, local culture has been obtained to guide further antibiotic therapy 3-patient to continue with vancomycin pharmacy to dose and Unasyn 3 g daily while waiting for the culture to finalize Time with Patient: Less than 30
[2023-02-18 17:13] LABS: Glucose,Whole Blood 298 mg/dL (70-110)
--- NOTE | 2023-02-18 17:39 | P.PN ---
Subjective Progress Note Date: 02/18/23 62-year-old male with multiple comorbidities including diabetes mellitus did have a history of end-stage disease on hemodialysis patient had history of multiple finger infection and abscess and requiring amputation of multiple fingers, patient is now presenting to the hospital concerning for left ring finger becoming swollen red with a wound on the dorsal aspect has some foul-smelling drainage patient's symptom has been getting worse for the last few days denies any history of any trauma or bone patient on presentation to the hospital was afebrile no fever has bradycardia subsequently patient did have a normal white count elevated sed rate uric acid has been elevated with abnormal patient did have x-ray of the finger finding consistent with osteomyelitis involving the distal aspect of the proximal fourth phalanx with dislocation of the residual amputated fourth middle phalanx and associated ulceration patient was given a dose of cefazolin admitted to hospital infectious disease was consulted for further management of antibiotic therapy patient has been evaluated by orthopedics and planning for amputation of the left fourth finger this afternoon Objective - Vital Signs Vital signs: Vital Signs Temp 97.8 F 02/18/23 07:10 Pulse 117 H 02/18/23 07:10 Resp 18 02/18/23 07:10 BP 152/93 02/18/23 07:10 Pulse Ox 96 02/18/23 07:10 FiO2 Intake & Output 02/17/23 02/18/23 02/18/23 18:59 06:59 18:59 Intake Total 1040 1440 Output Total 2000 5 250 Balance -960 1435 -250 Weight 132.5 kg Intake: IV 300 0 Oral 240 1440 Hemodialysis 500 Output: Urine 500 250 Hemodialysis 1500 Estimated Blood Loss 5 Other: Voiding Method Urinal # Voids 1 1 - Exam PHYSICAL EXAMINATION: GENERAL: The patient is alert and oriented x3, not in any acute distress. Well developed, well nourished. HEENT: Pupils are round and equally reacting to light. EOMI. No scleral icterus. No conjunctival pallor. Normocephalic, atraumatic. No pharyngeal erythema. No thyromegaly. CARDIOVASCULAR: S1 and S2 present. No murmurs, rubs, or gallops. PULMONARY: Chest is clear to auscultation, no wheezing or crackles. ABDOMEN: Soft, nontender, nondistended, normoactive bowel sounds. No palpable organomegaly. MUSCULOSKELETAL: No joint swelling or deformity. EXTREMITIES: No cyanosis, clubbing, or pedal edema. NEUROLOGICAL: Gross neurological examination did not reveal any focal deficits. SKIN: No rashes. - Labs CBC & Chem 7: 02/16/23 14:27 02/18/23 05:21 Labs: Abnormal Lab Results - Last 24 Hours (Table) 02/17/23 02/17/23 02/17/23 Range/Units 11:27 16:30 16:31 Sodium (137-145) mmol/L Potassium 3.1 L (3.5-5.1) mmol/L Chloride (98-107) mmol/L BUN (9-20) mg/dL Creatinine (0.66-1.25) mg/dL Glucose (74-99) mg/dL POC Glucose (mg/dL) 219 H (70-110) mg/dL Hemoglobin A1c (<=6.0) % Calcium (8.4-10.2) mg/dL Hep Bs Antibody A (Negative) 02/17/23 02/17/23 02/18/23 Range/Units 16:59 20:30 05:21 Sodium (137-145) mmol/L Potassium (3.5-5.1) mmol/L Chloride (98-107) mmol/L BUN (9-20) mg/dL Creatinine (0.66-1.25) mg/dL Glucose (74-99) mg/dL POC Glucose (mg/dL) 138 H 159 H (70-110) mg/dL Hemoglobin A1c 7.8 H (<=6.0) % Calcium (8.4-10.2) mg/dL Hep Bs Antibody (Negative) 02/18/23 02/18/23 02/18/23 Range/Units 05:21 07:07 11:14 Sodium 135 L (137-145) mmol/L Potassium 3.3 L (3.5-5.1) mmol/L Chloride 94 L (98-107) mmol/L BUN 35 H (9-20) mg/dL Creatinine 4.09 H (0.66-1.25) mg/dL Glucose 178 H (74-99) mg/dL POC Glucose (mg/dL) 187 H 191 H (70-110) mg/dL Hemoglobin A1c (<=6.0) % Calcium 7.7 L (8.4-10.2) mg/dL Hep Bs Antibody (Negative) Microbiology - Last 24 Hours (Table) 02/17/23 10:50 Gram Stain - Preliminary Hand - Left 02/16/23 14:27 Blood Culture - Preliminary Blood 02/16/23 14:27 Blood Culture - Preliminary Blood Assessment and Plan Assessment: 1. Ulceration left fourth finger with foul-smelling drainage - Patient had x-ray completed which suggested osteomyelitis - Patient reports that he is in the habit of the joint his fingers which along with diabetes mellitus and end-stage renal disease is predisposing patient to skin ulcers progressing to deeper infection - ID on board and recommending to continue IV Unasyn and vancomycin 2. End-stage renal disease/HD on a TTS schedule; patient has left arm aVF - Patient to receive hemodialysis tomorrow - Nephrology recommending to say patient's posttreatment established dry weight 3. Diabetes mellitus type 2 4. Hypertension 5. History of CHF DVT prophylaxis; SCDs CODE STATUS; full code
[2023-02-18 20:41] LABS: Glucose,Whole Blood 227 mg/dL (70-110)
[2023-02-18] MEDS: LEVOTHYROXINE 100 MCG TAB PO SCH (21:14)
[2023-02-18] MEDS: ATORVASTATIN 40 MG TAB PO SCH (21:14)
[2023-02-18] MEDS: MELATONIN 5 MG TABLET PO SCH (21:14)
[2023-02-18] MEDS: lisinopriL 5 MG TAB PO SCH (21:14)
[2023-02-18] MEDS: INSULIN DETEMIR (LEVEMIR) 100 UNIT/ML SYR SQ SCH (21:19)
[2023-02-19] MEDS: AMPICILLIN-SULBACTAM 3 GM in SODIUM CHLORIDE 0.9% 100 ML IVPB SCH ×2 (01:12→15:16)
[2023-02-19] MEDS: HYDROcodone/APAP 10-325MG 1 EACH TAB PO PRN ×4 (01:12→20:26)
[2023-02-19] MEDS: LORazepam 0.5 MG TAB PO PRN ×2 (02:43→23:06)
[2023-02-19 06:59] LABS: Glucose,Whole Blood 184 mg/dL (70-110)
[2023-02-19] MEDS: FLUoxetine HCL 20 MG CAP PO SCH (08:37)
[2023-02-19] MEDS: CALCIUM ACETATE 667 MG TAB PO SCH ×2 (08:37→17:41)
[2023-02-19] MEDS: carvediloL 6.25 MG TAB PO SCH ×2 (08:38→17:41)
[2023-02-19] MEDS: INSULIN ASPART (NovoLOG) 100 UNIT/ML VIAL SQ SCH ×4 (08:38→20:25)
[2023-02-19] MEDS: TORSEMIDE 20 MG TAB PO SCH (08:40)
--- NOTE | 2023-02-19 09:49 | P.PN ---
Subjective Progress Note Date: 02/19/23 This is an 62-year-old male who is status post left ring finger MP disarticulation amputation. This is postoperative day #2 patient is seen and evaluated at bedside today. Patient states that he does have some pain in the hand, but his pain is controlled. Patient denies any new complaints today. Objective - Vital Signs Vital signs: Vital Signs Temp 98.1 F 02/19/23 07:00 Pulse 117 H 02/19/23 07:00 Resp 18 02/19/23 07:00 BP 148/80 02/19/23 07:00 Pulse Ox 100 02/19/23 07:00 FiO2 Intake & Output 02/18/23 02/19/23 02/19/23 18:59 06:59 18:59 Intake Total 500 590 Output Total 2800 25 Balance -2300 565 Weight 125.5 kg Intake: Oral 590 Hemodialysis 500 Output: Urine 300 25 Hemodialysis 2500 Other: Voiding Method Urinal # Voids 1 1 - Exam On exam dressing is removed and the incision is clean, dry and intact. There is mild swelling of the left hand. There is no active drainage. The left upper extremity is warm and well perfused. - Labs CBC & Chem 7: 02/16/23 14:27 02/18/23 05:21 Labs: Abnormal Lab Results - Last 24 Hours (Table) 02/18/23 02/18/23 02/18/23 Range/Units 05:21 11:14 17:11 POC Glucose (mg/dL) 191 H 298 H (70-110) mg/dL Hemoglobin A1c 7.8 H (<=6.0) % 02/18/23 02/19/23 Range/Units 20:40 06:58 POC Glucose (mg/dL) 227 H 184 H (70-110) mg/dL Hemoglobin A1c (<=6.0) % Microbiology - Last 24 Hours (Table) 02/17/23 18:40 Gram Stain - Preliminary Finger - Left Fourth Assessment and Plan Assessment: Status post left ring finger MP disarticulation amputation. (1) Osteomyelitis of finger of left hand Current Visit: Yes Status: Acute Code(s): M86.9 - OSTEOMYELITIS, UNSPECIFIED SNOMED Code(s): 7985879313518114 Plan: 1. IV antibiotics per infectious disease. 2. A new dressing is applied to the left hand today. Dressing to be changed as needed. 3. Cultures are pending. Patient may be discharged once antibiotics are determined by infectious disease.
--- NOTE | 2023-02-19 09:59 | P.PN ---
Subjective Patient is seen in follow-up for end-stage renal disease. He is maintained on hemodialysis on Tuesday schedule. No problems with dialysis yesterday. No active complaints. Vital signs are stable. General: No acute distress. HEENT: Head exam is unremarkable. LUNGS: No audible rhonchi or wheezes. HEART: Rate and Rhythm are regular. ABDOMEN: Obese, nontender. EXTREMITITES: Left hand wrapped. Amputations noted. No edema. Objective - Vital Signs Vital signs: Vital Signs Temp 98.1 F 02/19/23 07:00 Pulse 117 H 02/19/23 07:00 Resp 18 02/19/23 07:00 BP 148/80 02/19/23 07:00 Pulse Ox 100 02/19/23 07:00 FiO2 Intake & Output 02/18/23 02/19/23 02/19/23 18:59 06:59 18:59 Intake Total 500 590 Output Total 2800 25 200 Balance -2300 565 -200 Weight 125.5 kg Intake: Oral 590 Hemodialysis 500 Output: Urine 300 25 200 Hemodialysis 2500 Other: Voiding Method Urinal Urinal # Voids 1 1 1 - Labs CBC & Chem 7: 02/16/23 14:27 02/18/23 05:21 Labs: Abnormal Lab Results - Last 24 Hours (Table) 02/18/23 02/18/23 02/18/23 Range/Units 05:21 11:14 17:11 POC Glucose (mg/dL) 191 H 298 H (70-110) mg/dL Hemoglobin A1c 7.8 H (<=6.0) % 02/18/23 02/19/23 Range/Units 20:40 06:58 POC Glucose (mg/dL) 227 H 184 H (70-110) mg/dL Hemoglobin A1c (<=6.0) % Microbiology - Last 24 Hours (Table) 02/17/23 18:40 Gram Stain - Preliminary Finger - Left Fourth Assessment and Plan Plan: Assessment: 1. End-stage liver disease making on hemodialysis on Tuesday schedule via left upper extremity AV fistula. 2. Left hand osteomyelitis status post left ring finger amputation this admission. On antibiotics. ID following. 3. Hypertension with chronic kidney disease. 4. Chronic kidney disease mineral bone disease maintained on PhosLo. 5. Diabetes mellitus. Plan: Hemodialysis today. Monitor vancomycin levels. Dose to be adjusted for renal function.
--- NOTE | 2023-02-19 10:48 | P.PN ---
Subjective Progress Note Date: 02/19/23 Principal diagnosis: Left ring finger abscess Osteomyelitis Patient is a 62-year-old male with multiple comorbidities including diabetes mellitus did have a history of end-stage disease on hemodialysis patient had history of multiple finger infection and abscess and requiring amputation of multiple fingers, patient is now presenting to the hospital concerning for left ring finger becoming swollen and red with evidence of wound and did have an abnormal x-ray suggestive of pneumonitis in this patient was status post left ring finger amputation by hand surgery on 02/17/2023 On today's evaluation that is 02/19/2023, the patient remains to be afebrile, the patient is breathing comfortably on room air, the patient pain to the left hand is currently controlled with the pain medication no chest pain shortness of breath or cough. Occasional nausea no vomiting no abdominal pain or diarrhea Objective - Vital Signs Vital signs: Vital Signs Temp 97.4 F L 02/19/23 01:46 Pulse 110 H 02/19/23 01:46 Resp 16 02/19/23 01:46 BP 171/98 02/19/23 01:46 Pulse Ox 99 02/19/23 01:46 FiO2 Intake & Output 02/18/23 02/19/23 02/19/23 18:59 06:59 18:59 Intake Total 500 590 Output Total 2800 25 Balance -2300 565 Weight 125.5 kg Intake: Oral 590 Hemodialysis 500 Output: Urine 300 25 Hemodialysis 2500 Other: Voiding Method Urinal # Voids 1 1 - Exam GENERAL DESCRIPTION: Middle-age male lying in bed in no distress RESPIRATORY SYSTEM: Unlabored breathing , decreased breath sounds at bases HEART: S1 S2 regular rate and rhythm , ABDOMEN: Soft , no tenderness EXTREMITIES: Left leg is currently dressed, - Labs CBC & Chem 7: 02/16/23 14:27 02/18/23 05:21 Labs: Abnormal Lab Results - Last 24 Hours (Table) 02/18/23 02/18/23 02/18/23 Range/Units 05:21 11:14 17:11 POC Glucose (mg/dL) 191 H 298 H (70-110) mg/dL Hemoglobin A1c 7.8 H (<=6.0) % 02/18/23 02/19/23 Range/Units 20:40 06:58 POC Glucose (mg/dL) 227 H 184 H (70-110) mg/dL Hemoglobin A1c (<=6.0) % Microbiology - Last 24 Hours (Table) 02/17/23 18:40 Gram Stain - Preliminary Finger - Left Fourth Assessment and Plan (1) Osteomyelitis of finger of left hand Current Visit: Yes Status: Acute Code(s): M86.9 - OSTEOMYELITIS, UNSPECIFIED SNOMED Code(s): 5717326169829149 Plan: 1patient presented to hospital with left fourth finger ulceration foul-smelling drainage abnormal x-ray suggestive of osteomyelitis in this patient with underlying diabetes mellitus and dialysis we will need to cover for both gram- positive as well as gram-negative anaerobes and anaerobes 2-patient is status post amputation of the left ring finger by orthopedics, local culture has been obtained which are currently pending 3-patient to continue with vancomycin pharmacy to dose and Unasyn 3 g daily while waiting for the culture to finalize and monitor his clinical course closely Questions concerns were answered Time with Patient: Less than 30
[2023-02-19 11:08] LABS: Glucose,Whole Blood 242 mg/dL (70-110)
[2023-02-19] MEDS: HYDROmorphone 1 MG/ML 1 ML SYRINGE IVP PRN ×2 (11:15→23:07)
[2023-02-19 17:14] LABS: Glucose,Whole Blood 216 mg/dL (70-110)
[2023-02-19] MEDS ORDERED: VANCOMYCIN 2,000 MG in SODIUM CHLORIDE 0.9% 500 ML 500 ML IVPB ONE (19:00)
[2023-02-19 20:20] LABS: Glucose,Whole Blood 218 mg/dL (70-110)
[2023-02-19] MEDS: lisinopriL 5 MG TAB PO SCH (20:25)
[2023-02-19] MEDS: LEVOTHYROXINE 100 MCG TAB PO SCH (20:25)
[2023-02-19] MEDS: MELATONIN 5 MG TABLET PO SCH (20:25)
[2023-02-19] MEDS: ATORVASTATIN 40 MG TAB PO SCH (20:25)
[2023-02-19] MEDS: INSULIN DETEMIR (LEVEMIR) 100 UNIT/ML SYR SQ SCH (21:22)
[2023-02-20] MEDS: AMPICILLIN-SULBACTAM 3 GM in SODIUM CHLORIDE 0.9% 100 ML IVPB SCH ×2 (02:17→14:16)
[2023-02-20] MEDS: HYDROcodone/APAP 10-325MG 1 EACH TAB PO PRN ×2 (04:50→11:02)
[2023-02-20 06:53] LABS: Glucose,Whole Blood 226 mg/dL (70-110)
[2023-02-20] MEDS: INSULIN ASPART (NovoLOG) 100 UNIT/ML VIAL SQ SCH ×4 (08:33→21:33)
[2023-02-20] MEDS: carvediloL 6.25 MG TAB PO SCH ×2 (08:33→17:36)
[2023-02-20] MEDS: FLUoxetine HCL 20 MG CAP PO SCH (08:34)
[2023-02-20] MEDS: CALCIUM ACETATE 667 MG TAB PO SCH ×2 (08:34→17:36)
[2023-02-20] MEDS: TORSEMIDE 20 MG TAB PO SCH (08:34)
--- NOTE | 2023-02-20 10:26 | P.PN ---
Subjective Progress Note Date: 02/20/23 This is an 62-year-old male who is status post left ring finger MP disarticulation amputation. This is postoperative day #3 patient is seen and evaluated at bedside today. Patient denies any new complaints today. Objective - Vital Signs Vital signs: Vital Signs Temp 97.6 F 02/20/23 07:03 Pulse 103 H 02/20/23 07:03 Resp 14 02/20/23 07:03 BP 158/94 02/20/23 07:03 Pulse Ox 98 02/20/23 07:03 FiO2 Intake & Output 02/19/23 02/20/23 02/20/23 18:59 06:59 18:59 Intake Total 500 600 Output Total 3700 50 Balance -3200 550 Weight 132 kg Intake: Intake, IV Titration 600 Amount Ampicillin-Sulbactam 3 gm 100 In Sodium Chloride 0.9% 100 ml @ 200 mls/hr IVPB Q12H [facility] Rx#:[id number] Vancomycin 2,000 mg In 500 Sodium Chloride 0.9% 500 ml 500 ml @ 167 mls/hr IVPB ONCE ONE Rx#: [id number] Hemodialysis 500 Output: Urine 200 50 Hemodialysis 3500 Other: Voiding Method Urinal Urinal # Voids 1 1 - Exam On exam dressing is clean, dry and intact. The left upper extremity is warm and well perfused. - Labs CBC & Chem 7: 02/16/23 14:27 02/18/23 05:21 Labs: Abnormal Lab Results - Last 24 Hours (Table) 02/19/23 02/19/23 02/19/23 Range/Units 11:05 17:13 20:17 POC Glucose (mg/dL) 242 H 216 H 218 H (70-110) mg/dL 02/20/23 Range/Units 06:52 POC Glucose (mg/dL) 226 H (70-110) mg/dL Microbiology - Last 24 Hours (Table) 02/16/23 14:27 Blood Culture - Preliminary Blood 02/16/23 14:27 Blood Culture - Preliminary Blood 02/17/23 18:40 Gram Stain - Preliminary Finger - Left Fourth Wound Culture - Preliminary Group D Enterococcus Assessment and Plan Assessment: Status post left ring finger MP disarticulation amputation. (1) Osteomyelitis of finger of left hand Current Visit: Yes Status: Acute Code(s): M86.9 - OSTEOMYELITIS, UNSPECIFIED SNOMED Code(s): 1365935891942812 Plan: 1. IV antibiotics per infectious disease. 2. Dressing to be changed as needed. 3. Preliminary cultures are showing group D enterococcus. Patient may be discharged from an orthopedic standpoint once antibiotics are determined by infectious disease.
--- NOTE | 2023-02-20 10:38 | P.PN ---
Subjective Patient is seen in follow-up for end-stage renal disease. He is maintained on hemodialysis on Tuesday schedule. No problems with dialysis yesterday. Tolerated nearly 3 L ultrafiltration. No active complaints. Vital signs are stable. General: No acute distress. HEENT: Head exam is unremarkable. LUNGS: No audible rhonchi or wheezes. HEART: Rate and Rhythm are regular. ABDOMEN: Obese, nontender. EXTREMITITES: Left hand wrapped. Amputations noted. No edema. Objective - Vital Signs Vital signs: Vital Signs Temp 97.6 F 02/20/23 07:03 Pulse 103 H 02/20/23 07:03 Resp 14 02/20/23 07:03 BP 158/94 02/20/23 07:03 Pulse Ox 98 02/20/23 07:03 FiO2 Intake & Output 02/19/23 02/20/23 02/20/23 18:59 06:59 18:59 Intake Total 500 600 Output Total 3700 50 50 Balance -3200 550 -50 Weight 132 kg Intake: Intake, IV Titration 600 Amount Ampicillin-Sulbactam 3 gm 100 In Sodium Chloride 0.9% 100 ml @ 200 mls/hr IVPB Q12H [facility] Rx#:[id number] Vancomycin 2,000 mg In 500 Sodium Chloride 0.9% 500 ml 500 ml @ 167 mls/hr IVPB ONCE ONE Rx#: [id number] Hemodialysis 500 Output: Urine 200 50 50 Hemodialysis 3500 Other: Voiding Method Urinal Urinal Urinal # Voids 1 1 1 - Labs CBC & Chem 7: 02/16/23 14:27 02/18/23 05:21 Labs: Abnormal Lab Results - Last 24 Hours (Table) 02/19/23 02/19/23 02/19/23 Range/Units 11:05 17:13 20:17 POC Glucose (mg/dL) 242 H 216 H 218 H (70-110) mg/dL 02/20/23 Range/Units 06:52 POC Glucose (mg/dL) 226 H (70-110) mg/dL Microbiology - Last 24 Hours (Table) 02/16/23 14:27 Blood Culture - Preliminary Blood 02/16/23 14:27 Blood Culture - Preliminary Blood 02/17/23 18:40 Gram Stain - Preliminary Finger - Left Fourth Wound Culture - Preliminary Group D Enterococcus Assessment and Plan Plan: Assessment: 1. End-stage liver disease making on hemodialysis on Tuesday schedule via left upper extremity AV fistula. 2. Left hand osteomyelitis status post left ring finger amputation this admission. On antibiotics. ID following. 3. Hypertension with chronic kidney disease. 4. Chronic kidney disease mineral bone disease maintained on PhosLo. 5. Diabetes mellitus. Plan: Hemodialysis Tuesday. Monitor vancomycin levels. Dose to be adjusted for renal function.
[2023-02-20 11:16] LABS: Glucose,Whole Blood 225 mg/dL (70-110)
[2023-02-20] MEDS: LORazepam 0.5 MG TAB PO PRN (15:07)
--- NOTE | 2023-02-20 15:53 | P.PN ---
Subjective Progress Note Date: 02/20/23 Principal diagnosis: Left ring finger abscess Osteomyelitis Patient is a 62-year-old male with multiple comorbidities including diabetes mellitus did have a history of end-stage disease on hemodialysis patient had history of multiple finger infection and abscess and requiring amputation of multiple fingers, patient is now presenting to the hospital concerning for left ring finger becoming swollen and red with evidence of wound and did have an abnormal x-ray suggestive of pneumonitis in this patient was status post left ring finger amputation by hand surgery on 02/17/2023 On today's evaluation that is 02/20/2023, the patient denies any fever or chills, the patient is breathing comfortably on room air, the patient pain to the left hand has decreased in intensity, the patient denies chest pain shortness of breath or cough. Occasional nausea no vomiting no abdominal pain or diarrhea Objective - Vital Signs Vital signs: Vital Signs Temp 97.7 F 02/20/23 11:40 Pulse 104 H 02/20/23 11:40 Resp 14 02/20/23 11:40 BP 150/87 02/20/23 11:40 Pulse Ox 100 02/20/23 11:40 FiO2 Intake & Output 02/19/23 02/20/23 02/20/23 18:59 06:59 18:59 Intake Total 500 600 Output Total 3700 50 50 Balance -3200 550 -50 Weight 132 kg Intake: Intake, IV Titration 600 Amount Ampicillin-Sulbactam 3 gm 100 In Sodium Chloride 0.9% 100 ml @ 200 mls/hr IVPB Q12H [facility] Rx#:[id number] Vancomycin 2,000 mg In 500 Sodium Chloride 0.9% 500 ml 500 ml @ 167 mls/hr IVPB ONCE ONE Rx#: [id number] Hemodialysis 500 Output: Urine 200 50 50 Hemodialysis 3500 Other: Voiding Method Urinal Urinal Urinal # Voids 1 1 1 - Exam GENERAL DESCRIPTION: Middle-age male lying in bed in no distress RESPIRATORY SYSTEM: Unlabored breathing , decreased breath sounds at bases HEART: S1 S2 regular rate and rhythm , ABDOMEN: Soft , no tenderness EXTREMITIES: Left fourth finger amputation site incisions is intact, did have minimal bruising, no significant redness or drainage, - Labs CBC & Chem 7: 02/16/23 14:27 02/20/23 14:19 Labs: Abnormal Lab Results - Last 24 Hours (Table) 02/19/23 02/19/23 02/20/23 Range/Units 17:13 20:17 06:52 POC Glucose (mg/dL) 216 H 218 H 226 H (70-110) mg/dL 02/20/23 Range/Units 11:15 POC Glucose (mg/dL) 225 H (70-110) mg/dL Microbiology - Last 24 Hours (Table) 02/17/23 18:40 Gram Stain - Preliminary Finger - Left Fourth Wound Culture - Preliminary Group D Enterococcus Presumptive Staph aureus 02/16/23 14:27 Blood Culture - Preliminary Blood 02/16/23 14:27 Blood Culture - Preliminary Blood Assessment and Plan (1) Osteomyelitis of finger of left hand Current Visit: Yes Status: Acute Code(s): M86.9 - OSTEOMYELITIS, UNSPECIFIED SNOMED Code(s): 4849680297145986 Plan: 1patient presented to hospital with left fourth finger ulceration foul-smelling drainage abnormal x-ray suggestive of osteomyelitis in this patient with underlying diabetes mellitus and dialysis we will need to cover for both gram- positive as well as gram-negative anaerobes and anaerobes 2-patient is status post amputation of the left ring finger by orthopedics, local culture currently growing staph aureus and enterococcus 3-patient to continue with vancomycin pharmacy to dose and Unasyn 3 g daily while waiting for the culture to finalize to determine his discharge antibiotics possibly through dialysis Time with Patient: Less than 30
--- NOTE | 2023-02-20 16:00 | P.PN ---
Subjective Progress Note Date: 02/19/23 62-year-old male with multiple comorbidities including diabetes mellitus did have a history of end-stage disease on hemodialysis patient had history of multiple finger infection and abscess and requiring amputation of multiple fingers, patient is now presenting to the hospital concerning for left ring finger becoming swollen red with a wound on the dorsal aspect has some foul-smelling drainage patient's symptom has been getting worse for the last few days denies any history of any trauma or bone patient on presentation to the hospital was afebrile no fever has bradycardia subsequently patient did have a normal white count elevated sed rate uric acid has been elevated with abnormal patient did have x-ray of the finger finding consistent with osteomyelitis involving the distal aspect of the proximal fourth phalanx with dislocation of the residual amputated fourth middle phalanx and associated ulceration patient was given a dose of cefazolin admitted to hospital infectious disease was consulted for further management of antibiotic therapy patient has been evaluated by orthopedics and planning for amputation of the left fourth finger this afternoon 02/19/2023 the patient is seen and evaluated in room at bedside remains to be afebrile, the patient is breathing comfortably on room air, the patient pain to the left hand is currently controlled with the pain medication no chest pain shortness of breath or cough. Occasional nausea no vomiting no abdominal pain or diarrhea Vital signs are stable with temperature 97.4, pulse 110, respiration 16 and bloo d pressure 171/90 -patient is status post amputation of the left ring finger by orthopedics, local culture has been obtained which are currently pending -patient to continue with vancomycin pharmacy to dose and Unasyn 3 g daily while waiting for the culture to finalize and monitor his clinical course closely Objective - Vital Signs Vital signs: Vital Signs Temp 97.7 F 02/19/23 14:26 Pulse 104 H 02/19/23 14:26 Resp 16 02/19/23 14:26 BP 170/85 02/19/23 14:26 Pulse Ox 99 02/19/23 11:50 FiO2 Intake & Output 02/18/23 02/19/23 02/19/23 18:59 06:59 18:59 Intake Total 500 590 500 Output Total 2800 25 3700 Balance -2300 565 -3200 Weight 125.5 kg Intake: Oral 590 Hemodialysis 500 500 Output: Urine 300 25 200 Hemodialysis 2500 3500 Other: Voiding Method Urinal Urinal # Voids 1 1 1 - Exam PHYSICAL EXAMINATION: GENERAL: The patient is alert and oriented x3, not in any acute distress. Well developed, well nourished. HEENT: Pupils are round and equally reacting to light. EOMI. No scleral icterus. No conjunctival pallor. Normocephalic, atraumatic. No pharyngeal erythema. No thyromegaly. CARDIOVASCULAR: S1 and S2 present. No murmurs, rubs, or gallops. PULMONARY: Chest is clear to auscultation, no wheezing or crackles. ABDOMEN: Soft, nontender, nondistended, normoactive bowel sounds. No palpable organomegaly. MUSCULOSKELETAL: No joint swelling or deformity. EXTREMITIES: No cyanosis, clubbing, or pedal edema. NEUROLOGICAL: Gross neurological examination did not reveal any focal deficits. SKIN: No rashes. - Labs CBC & Chem 7: 02/16/23 14:27 02/20/23 14:19 Labs: Abnormal Lab Results - Last 24 Hours (Table) 02/18/23 02/18/23 02/19/23 Range/Units 17:11 20:40 06:58 POC Glucose (mg/dL) 298 H 227 H 184 H (70-110) mg/dL 02/19/23 Range/Units 11:05 POC Glucose (mg/dL) 242 H (70-110) mg/dL Microbiology - Last 24 Hours (Table) 02/17/23 18:40 Gram Stain - Preliminary Finger - Left Fourth Assessment and Plan Assessment: 1. Ulceration left fourth finger with foul-smelling drainage - Patient had x-ray completed which suggested osteomyelitis - Patient reports that he is in the habit of the joint his fingers which along with diabetes mellitus and end-stage renal disease is predisposing patient to skin ulcers progressing to deeper infection - ID on board and recommending to continue IV Unasyn and vancomycin 2. End-stage renal disease/HD on a TTS schedule; patient has left arm aVF - Patient to receive hemodialysis tomorrow - Nephrology recommending to say patient's posttreatment established dry weight 3. Diabetes mellitus type 2 4. Hypertension 5. History of CHF DVT prophylaxis; SCDs CODE STATUS; full code
[2023-02-20 17:05] LABS: Glucose,Whole Blood 262 mg/dL (70-110)
[2023-02-20] MEDS: HYDROmorphone 1 MG/ML 1 ML SYRINGE IVP PRN ×2 (17:23→21:33)
[2023-02-20 20:24] LABS: Glucose,Whole Blood 266 mg/dL (70-110)
[2023-02-20] MEDS: ATORVASTATIN 40 MG TAB PO SCH (21:32)
[2023-02-20] MEDS: INSULIN DETEMIR (LEVEMIR) 100 UNIT/ML SYR SQ SCH (21:33)
[2023-02-20] MEDS: lisinopriL 5 MG TAB PO SCH (21:33)
[2023-02-20] MEDS: LEVOTHYROXINE 100 MCG TAB PO SCH (21:33)
[2023-02-20] MEDS: MELATONIN 5 MG TABLET PO SCH (21:33)
[2023-02-21] MEDS: HYDROcodone/APAP 10-325MG 1 EACH TAB PO PRN ×4 (01:21→21:13)
[2023-02-21] MEDS: AMPICILLIN-SULBACTAM 3 GM in SODIUM CHLORIDE 0.9% 100 ML IVPB SCH ×2 (03:06→14:56)
[2023-02-21 05:59] LABS: Anisocytosis Slight; Basophils % (A) 0 %; Eosinophils # (A) 0.3 k/uL (0-0.7); Eosinophils % (A) 4 %; HCT 28.5 % (39.0-53.0); HGB 9.4 gm/dL (13.0-17.5); Lymphocytes # (A) 1.2 k/uL (1.0-4.8); Lymphocytes % (A) 15 %; MCH 31.7 pg (25.0-35.0); MCV 96.1 fL (80.0-100.0); Mean Platelet Volume 7.8; Monocytes # (A) 0.3 k/uL (0-1.0); Monocytes % (A) 4 %; Neutrophils # (A) 5.9 k/uL (1.3-7.7); Neutrophils % (A) 75 %; Platelet Count 127 k/uL (150-450); Poikilocytosis Slight; RBC 2.97 m/uL (4.30-5.90); WBC 7.9 k/uL (3.8-10.6)
[2023-02-21 06:18] LABS: African American GFR (CKD) 14 (>60 ml/min/1.73 sqM); Anion Gap 13 mmol/L; Blood Urea Nitrogen 32 mg/dL (9-20); Calcium 8.5 mg/dL (8.4-10.2); Carbon Dioxide 27 mmol/L (22-30); Chloride 94 mmol/L (98-107); Glucose 174 mg/dL (74-99); Non-African American GFR(CKD) 12 (>60 ml/min/1.73 sqM); Potassium 4.6 mmol/L (3.5-5.1); Sodium 134 mmol/L (137-145)
[2023-02-21 06:52] LABS: Glucose,Whole Blood 178 mg/dL (70-110)
[2023-02-21] MEDS: CALCIUM ACETATE 667 MG TAB PO SCH ×2 (08:08→17:17)
[2023-02-21] MEDS: carvediloL 6.25 MG TAB PO SCH ×2 (08:08→17:17)
[2023-02-21] MEDS: FLUoxetine HCL 20 MG CAP PO SCH (08:08)
[2023-02-21] MEDS: INSULIN ASPART (NovoLOG) 100 UNIT/ML VIAL SQ SCH ×4 (08:09→21:13)
[2023-02-21] MEDS: TORSEMIDE 20 MG TAB PO SCH (08:10)
[2023-02-21] MEDS: LORazepam 0.5 MG TAB PO PRN ×2 (09:41→20:13)
[2023-02-21 11:31] LABS: Glucose,Whole Blood 187 mg/dL (70-110)
--- NOTE | 2023-02-21 12:38 | P.PN ---
Subjective Patient is seen in follow-up for end-stage renal disease. He is maintained on hemodialysis on Tuesday schedule. No problems with dialysis Tuesday. No active complaints. Vital signs are stable. General: No acute distress. HEENT: Head exam is unremarkable. LUNGS: No audible rhonchi or wheezes. HEART: Rate and Rhythm are regular. ABDOMEN: Obese, nontender. EXTREMITITES: Left hand wrapped. Amputations noted. No edema. Objective - Vital Signs Vital signs: Vital Signs Temp 97.9 F 02/21/23 11:25 Pulse 84 02/21/23 11:25 Resp 18 02/21/23 11:25 BP 132/53 02/21/23 11:25 Pulse Ox 100 02/21/23 11:25 FiO2 Intake & Output 02/20/23 02/21/23 02/21/23 18:59 06:59 18:59 Output Total 50 100 Balance -50 -100 Weight 127.5 kg Output: Urine 50 100 Other: Voiding Method Urinal Urinal Urinal # Voids 1 - Labs CBC & Chem 7: 02/21/23 04:56 02/21/23 04:56 Labs: Abnormal Lab Results - Last 24 Hours (Table) 02/20/23 02/20/23 02/21/23 Range/Units 17:03 20:21 04:56 RBC 2.97 L (4.30-5.90) m/uL Hgb 9.4 L (13.0-17.5) gm/dL Hct 28.5 L (39.0-53.0) % RDW 16.0 H (11.5-15.5) % Plt Count 127 L (150-450) k/uL Sodium (137-145) mmol/L Chloride (98-107) mmol/L BUN (9-20) mg/dL Creatinine (0.66-1.25) mg/dL Glucose (74-99) mg/dL POC Glucose (mg/dL) 262 H 266 H (70-110) mg/dL 02/21/23 02/21/23 02/21/23 Range/Units 04:56 06:49 11:28 RBC (4.30-5.90) m/uL Hgb (13.0-17.5) gm/dL Hct (39.0-53.0) % RDW (11.5-15.5) % Plt Count (150-450) k/uL Sodium 134 L (137-145) mmol/L Chloride 94 L (98-107) mmol/L BUN 32 H (9-20) mg/dL Creatinine 4.77 H (0.66-1.25) mg/dL Glucose 174 H (74-99) mg/dL POC Glucose (mg/dL) 178 H 187 H (70-110) mg/dL Microbiology - Last 24 Hours (Table) 02/17/23 18:40 Gram Stain - Preliminary Finger - Left Fourth Wound Culture - Preliminary Group D Enterococcus Presumptive Staph aureus 02/17/23 10:50 Anaerobic Culture - Final Hand - Left Anaerobic Gm Negative Bacilli Assessment and Plan Plan: Assessment: 1. End-stage liver disease making on hemodialysis on Tuesday schedule via left upper extremity AV fistula. 2. Left hand osteomyelitis status post left ring finger amputation this admission. On antibiotics. ID following. 3. Hypertension with chronic kidney disease. 4. Chronic kidney disease mineral bone disease maintained on PhosLo. 5. Diabetes mellitus. Plan: Hemodialysis Tuesday. Monitor vancomycin levels. Dose to be adjusted for renal function.
--- NOTE | 2023-02-21 13:57 | P.PN ---
Subjective Progress Note Date: 02/21/23 Principal diagnosis: Status post left ring finger MP disarticulation amputation This is a 62 year-old male post left ring finger MP disarticulation amputation. This is post-op day 4. The patient was evaluated at the bedside this morning. The patient denies nausea, vomiting, abdominal pain, chest pain, or shortness of breath this morning. He states her pain is controlled at this time. We are awaiting the final culture for antibiotic recommendations from Dr. Madera. Objective - Vital Signs Vital signs: Vital Signs Temp 97.9 F 02/21/23 11:25 Pulse 84 02/21/23 11:25 Resp 18 02/21/23 11:25 BP 132/53 02/21/23 11:25 Pulse Ox 100 02/21/23 11:25 FiO2 Intake & Output 02/20/23 02/21/23 02/21/23 18:59 06:59 18:59 Output Total 50 100 Balance -50 -100 Weight 127.5 kg Output: Urine 50 100 Other: Voiding Method Urinal Urinal Urinal # Voids 1 - Exam The patient is a 62 y/o male in no acute distress. The left hand dressing is clean and dry. Swelling is minimal. - Labs CBC & Chem 7: 02/21/23 04:56 02/21/23 04:56 Labs: Abnormal Lab Results - Last 24 Hours (Table) 02/20/23 02/20/23 02/21/23 Range/Units 17:03 20:21 04:56 RBC 2.97 L (4.30-5.90) m/uL Hgb 9.4 L (13.0-17.5) gm/dL Hct 28.5 L (39.0-53.0) % RDW 16.0 H (11.5-15.5) % Plt Count 127 L (150-450) k/uL Sodium (137-145) mmol/L Chloride (98-107) mmol/L BUN (9-20) mg/dL Creatinine (0.66-1.25) mg/dL Glucose (74-99) mg/dL POC Glucose (mg/dL) 262 H 266 H (70-110) mg/dL 02/21/23 02/21/23 02/21/23 Range/Units 04:56 06:49 11:28 RBC (4.30-5.90) m/uL Hgb (13.0-17.5) gm/dL Hct (39.0-53.0) % RDW (11.5-15.5) % Plt Count (150-450) k/uL Sodium 134 L (137-145) mmol/L Chloride 94 L (98-107) mmol/L BUN 32 H (9-20) mg/dL Creatinine 4.77 H (0.66-1.25) mg/dL Glucose 174 H (74-99) mg/dL POC Glucose (mg/dL) 178 H 187 H (70-110) mg/dL Microbiology - Last 24 Hours (Table) 02/17/23 18:40 Gram Stain - Preliminary Finger - Left Fourth Wound Culture - Preliminary Group D Enterococcus Presumptive Staph aureus 02/17/23 10:50 Anaerobic Culture - Final Hand - Left Anaerobic Gm Negative Bacilli Assessment and Plan (1) Osteomyelitis of finger of left hand Current Visit: Yes Status: Acute Code(s): M86.9 - OSTEOMYELITIS, UNSPECIFIED SNOMED Code(s): 8725014009280009 (2) Diabetes with skin ulcer Current Visit: No Status: Acute Code(s): E11.622 - TYPE 2 DIABETES MELLITUS WITH OTHER SKIN ULCER; L98.499 - NON-PRESSURE CHRONIC ULCER OF SKIN OF SITES W UNSP SEVERITY SNOMED Code(s): 33800372 (3) ESRD on hemodialysis Current Visit: No Status: Acute Code(s): N18.6 - END STAGE RENAL DISEASE; Z99.2 - DEPENDENCE ON RENAL DIALYSIS SNOMED Code(s): 034002876 Plan: The clinical and operative findings were discussed with the patient. The case was discussed with Dr. Christina. Continue IV antibiotics per Dr. Madera. He is currently on Unasyn and Vanco. The left hand dressing to be changed as needed. Elevation of the left hand is recommended. Continue pain medication as needed. He may be discharged from an orthopedic standpoint when antibiotics are determined by Dr. Madera. He will follow up in the office in 10-14 days.
[2023-02-21 17:00] LABS: Glucose,Whole Blood 252 mg/dL (70-110)
[2023-02-21] MEDS: MELATONIN 5 MG TABLET PO SCH (20:13)
[2023-02-21] MEDS: LEVOTHYROXINE 100 MCG TAB PO SCH (20:13)
[2023-02-21] MEDS: ATORVASTATIN 40 MG TAB PO SCH (20:13)
[2023-02-21] MEDS: lisinopriL 5 MG TAB PO SCH (20:13)
[2023-02-21] MEDS: ACETAMINOPHEN TAB 325 MG TAB PO PRN (20:13)
[2023-02-21 20:26] LABS: Glucose,Whole Blood 282 mg/dL (70-110)
--- NOTE | 2023-02-21 20:33 | P.OP ---
Date of Procedure: 02/17/23 Preoperative Diagnosis: Left ring finger osteomyelitis Postoperative Diagnosis: Same Procedure(s) Performed: Left ring finger partial ray resection Anesthesia: MAC, local Surgeon: Alicia Christina Disposition: PACU Indications for Procedure: Lan is a 62-year-old male with long-standing issues with nonhealing wounds to his left hand. He has an AV fistula on the side as well as diabetes. He is undergone several amputations in the past. He also has convulsions to pick at his wounds with his teeth. This resulted in multiple ray resections and amputations. Within the last week he has developed purulent drainage from the wound on the tip of his ring finger with exposed bone. We had a long discussion about his treatment options and he is elected to proceed with partial ray resection. We will leave most of the metacarpal to maintain the width of his palm. He will likely need some sort of prosthesis at this point as this is the only remaining finger to oppose his thumb with. Description of Procedure: Patient, operative extremity, and procedure were identified in the preop holding area. After informed consent was obtained the patient was brought back to the operating room or local block was performed with 1% lidocaine with epinephrine and half percent Marcaine. A formal timeout was performed the forearm tourniq uet was inflated. A deep tissue culture was obtained at the tip of the remaining ring finger stump. There was purulent drainage. A curvilinear, lasso type suture was performed around the base of the ring finger. Dissection was carried down to the flexor and extensor tendons which were transected. The neurovascular bundles were identified and cauterized and cut under tension. The metacarpal head was then isolated and the metacarpal was transected proximal to the metacarpal neck. There was no sign of infection at this site. The inter-metacarpal ligaments were connected with 3-0 PDS suture. The tourniquet was let down hemostasis was achieved. Wound was closed in a layered fashion with 3-0 PDS suture and 4-0 nylon suture. Wound was dressed with antibiotic ointment Adaptic 4 x 4's Rafia.
--- NOTE | 2023-02-21 20:45 | P.PN ---
Subjective Progress Note Date: 02/21/23 62-year-old male with multiple comorbidities including diabetes mellitus did have a history of end-stage disease on hemodialysis patient had history of multiple finger infection and abscess and requiring amputation of multiple fingers, patient is now presenting to the hospital concerning for left ring finger becoming swollen red with a wound on the dorsal aspect has some foul-smelling drainage patient's symptom has been getting worse for the last few days denies any history of any trauma or bone patient on presentation to the hospital was afebrile no fever has bradycardia subsequently patient did have a normal white count elevated sed rate uric acid has been elevated with abnormal patient did have x-ray of the finger finding consistent with osteomyelitis involving the distal aspect of the proximal fourth phalanx with dislocation of the residual amputated fourth middle phalanx and associated ulceration patient was given a dose of cefazolin admitted to hospital infectious disease was consulted for further management of antibiotic therapy patient has been evaluated by orthopedics and planning for amputation of the left fourth finger this afternoon 02/19/2023 the patient is seen and evaluated in room at bedside remains to be afebrile, the patient is breathing comfortably on room air, the patient pain to the left hand is currently controlled with the pain medication no chest pain shortness of breath or cough. Occasional nausea no vomiting no abdominal pain or diarrhea Vital signs are stable with temperature 97.4, pulse 110, respiration 16 and bl ood pressure 171/90 -patient is status post amputation of the left ring finger by orthopedics, local culture has been obtained which are currently pending -patient to continue with vancomycin pharmacy to dose and Unasyn 3 g daily while waiting for the culture to finalize and monitor his clinical course closely 02/21/2023 Patient is seen and evaluated in follow-up status post surgical intervention with orthopedics with the left ring finger amputation and maintained on IV antibiotics with infectious disease following closely. Cultures to be reported as finalized sometime today although infectious disease is recommending waiting finalized cultures to determine appropriate discharge antibiotics. Patient will likely be receiving antibiotics with dialysis as patient is maintained on Tuesday//Tuesday. Nephrology is following and if patient continues to be hospitalized patient will receive dialysis in a.m. Patient is adamant about wanting to go home although is agreeable to staying await for cultures to finalize. Patient is currently afebrile denies chest pain or shortness of breath with no reported nausea or vomiting noted and tolerating diet. Review of systems: Constitutional: No reports of fatigue, fever, or chills Cardiovascular: No reports of chest pain or palpitations Respiratory: No reports of shortness of breath or cough GI: No reports of nausea, vomiting, or diarrhea : No reports of dysuria or retention Neurovascular: No reports of weakness or numbness All medications have been reviewed Physical exam: GENERAL: The patient is alert and oriented x3, not in any acute distress. Well developed, well nourished. Obese HEENT: Pupils are round and equally reacting to light. EOMI. No scleral icterus. No conjunctival pallor. Normocephalic, atraumatic. No pharyngeal erythema. No thyromegaly. CARDIOVASCULAR: S1 and S2 present. No murmurs, rubs, or gallops. PULMONARY: Chest is clear to auscultation, no wheezing or crackles. ABDOMEN: Soft, nontender, nondistended, normoactive bowel sounds. No palpable organomegaly. MUSCULOSKELETAL: No joint swelling or deformity. EXTREMITIES: No cyanosis, clubbing, or pedal edema. Left hand currently with surgical dressing that is dry and intact NEUROLOGICAL: Gross neurological examination did not reveal any focal deficits. SKIN: No rashes. Assessment: -Ulceration left fourth finger with foul-smelling drainage, osteomyelitis, status post left ring finger MP disarticulation amputation, likely secondary to poorly managed diabetes -End-stage renal disease/HD on a TTS schedule; patient has left arm aVF -Diabetes mellitus type 2, insulin-dependent, uncontrolled with hyperglycemia -History of paroxysmal atrial fibrillation -Hypertension -History of CHF, chronic with diastolic dysfunction, most recent EF was 50% -DVT prophylaxis; SCDs -GI prophylaxis- -full code Plan: Recommend continue with current medications and management with infectious disease and orthopedics following. Nephrology following as patient is maintained on hemodialysis on Tuesday//Tuesday and will receive another session tomorrow if patient is still here Patient has been medically stable and cleared for discharge although infectious disease recommending waiting for finalized cultures determine appropriate discharge antibiotics. Patient will be continued on antibiotics per finalized cultures and will be receiving during hemodialysis Recommend continue local wound care Recommend monitoring blood sugars with Accu-Cheks before meals and at bedtime for tight glycemic control Will await finalized cultures and discuss further with infectious disease with probable discharge in 24 hours The impression and plan of care has been dictated by Sierra Henderson, Nurse Practitioner as directed. Dr. Mil MD I have performed a history and examination and MDM of this patient, discussed the same with the dictator, and agree with the dictator's assessment and plan as written ,documented as a scribe. Based on total visit time, I have performed more than 50% of the visit. Objective - Vital Signs Vital signs: Vital Signs Temp 98.1 F 02/21/23 07:24 Pulse 112 H 02/21/23 07:24 Resp 20 02/21/23 07:24 BP 149/72 02/21/23 07:24 Pulse Ox 100 02/21/23 07:24 FiO2 Intake & Output 02/20/23 02/21/23 02/21/23 18:59 06:59 18:59 Output Total 50 100 Balance -50 -100 Weight 127.5 kg Output: Urine 50 100 Other: Voiding Method Urinal Urinal # Voids 1 - Labs CBC & Chem 7: 02/21/23 04:56 02/21/23 04:56 Labs: Abnormal Lab Results - Last 24 Hours (Table) 02/20/23 02/20/23 02/20/23 Range/Units 11:15 17:03 20:21 RBC (4.30-5.90) m/uL Hgb (13.0-17.5) gm/dL Hct (39.0-53.0) % RDW (11.5-15.5) % Plt Count (150-450) k/uL Sodium (137-145) mmol/L Chloride (98-107) mmol/L BUN (9-20) mg/dL Creatinine (0.66-1.25) mg/dL Glucose (74-99) mg/dL POC Glucose (mg/dL) 225 H 262 H 266 H (70-110) mg/dL 02/21/23 02/21/23 02/21/23 Range/Units 04:56 04:56 06:49 RBC 2.97 L (4.30-5.90) m/uL Hgb 9.4 L (13.0-17.5) gm/dL Hct 28.5 L (39.0-53.0) % RDW 16.0 H (11.5-15.5) % Plt Count 127 L (150-450) k/uL Sodium 134 L (137-145) mmol/L Chloride 94 L (98-107) mmol/L BUN 32 H (9-20) mg/dL Creatinine 4.77 H (0.66-1.25) mg/dL Glucose 174 H (74-99) mg/dL POC Glucose (mg/dL) 178 H (70-110) mg/dL Microbiology - Last 24 Hours (Table) 02/17/23 10:50 Anaerobic Culture - Final Hand - Left Anaerobic Gm Negative Bacilli 02/17/23 18:40 Gram Stain - Preliminary Finger - Left Fourth Wound Culture - Preliminary Group D Enterococcus Presumptive Staph aureus
[2023-02-21] MEDS ORDERED: MELATONIN 5 MG TABLET PO SCH (21:00)
[2023-02-21] MEDS: INSULIN DETEMIR (LEVEMIR) 100 UNIT/ML SYR SQ SCH (21:13)
[2023-02-22] MEDS: AMPICILLIN-SULBACTAM 3 GM in SODIUM CHLORIDE 0.9% 100 ML IVPB SCH ×2 (02:38→16:53)
[2023-02-22] MEDS: HYDROcodone/APAP 10-325MG 1 EACH TAB PO PRN ×2 (02:38→13:54)
[2023-02-22] MEDS: ACETAMINOPHEN TAB 325 MG TAB PO PRN ×2 (02:40→09:41)
[2023-02-22 07:51] LABS: Glucose,Whole Blood 243 mg/dL (70-110)
[2023-02-22 09:13] VITALS: BMI 38.7
[2023-02-22] MEDS: LORazepam 0.5 MG TAB PO PRN (09:41)
[2023-02-22] MEDS: INSULIN ASPART (NovoLOG) 100 UNIT/ML VIAL SQ SCH ×2 (09:53→12:09)
--- NOTE | 2023-02-22 10:22 | P.PN ---
Subjective Patient is seen in follow-up for end-stage renal disease. He is maintained on hemodialysis on Tuesday schedule. Resting in bed. No active complaints. Scheduled for dialysis today. Vital signs are stable. General: No acute distress. HEENT: Head exam is unremarkable. LUNGS: No audible rhonchi or wheezes. HEART: Rate and Rhythm are regular. ABDOMEN: Obese, nontender. EXTREMITITES: Left hand wrapped. Amputations noted. No edema. Objective - Vital Signs Vital signs: Vital Signs Temp 97.9 F 02/22/23 07:55 Pulse 59 L 02/22/23 07:55 Resp 18 02/22/23 07:55 BP 168/75 02/22/23 07:55 Pulse Ox 95 02/22/23 07:55 FiO2 Intake & Output 02/21/23 02/22/23 02/22/23 18:59 06:59 18:59 Intake Total 590 Output Total 25 Balance 565 Weight 126 kg 126 kg Intake: Oral 590 Output: Urine 25 Other: Voiding Method Urinal Urinal # Voids 2 - Labs CBC & Chem 7: 02/21/23 04:56 02/21/23 04:56 Labs: Abnormal Lab Results - Last 24 Hours (Table) 02/21/23 02/21/23 02/21/23 Range/Units 11:28 16:59 20:25 POC Glucose (mg/dL) 187 H 252 H 282 H (70-110) mg/dL 02/22/23 Range/Units 07:50 POC Glucose (mg/dL) 243 H (70-110) mg/dL Microbiology - Last 24 Hours (Table) 02/16/23 14:27 Blood Culture - Final Blood 02/16/23 14:27 Blood Culture - Final Blood 02/17/23 18:40 Gram Stain - Preliminary Finger - Left Fourth Wound Culture - Preliminary Group D Enterococcus Staphylococcus aureus Assessment and Plan Plan: Assessment: 1. End-stage liver disease making on hemodialysis on Tuesday schedule via left upper extremity AV fistula. 2. Left hand osteomyelitis status post left ring finger amputation this admission. On antibiotics. ID following. 3. Hypertension with chronic kidney disease. 4. Chronic kidney disease mineral bone disease maintained on PhosLo. 5. Diabetes mellitus. Plan: Hemodialysis today. Monitor vancomycin levels. Dose to be adjusted for renal function.
[2023-02-22] MEDS: HYDROmorphone 1 MG/ML 1 ML SYRINGE IVP PRN (11:51)
[2023-02-22] MEDS: carvediloL 6.25 MG TAB PO SCH (11:52)
[2023-02-22] MEDS: FLUoxetine HCL 20 MG CAP PO SCH (11:52)
[2023-02-22] MEDS: CALCIUM ACETATE 667 MG TAB PO SCH (11:53)
[2023-02-22 12:02] LABS: Glucose,Whole Blood 150 mg/dL (70-110)
[2023-02-22] MEDS: TORSEMIDE 20 MG TAB PO SCH (13:06)
[2023-02-22 13:26] VITALS: BP 147/88; PULSE 107; RESP 16; TEMP 97.7
[2023-02-22 17:22] LABS: Glucose,Whole Blood 260 mg/dL (70-110)
[2023-02-22] MEDS ORDERED: VANCOMYCIN 2,000 MG in SODIUM CHLORIDE 0.9% 500 ML 500 ML IVPB ONE (18:00)
[2023-02-22] MEDS ORDERED: MELATONIN 5 MG TABLET PO SCH (21:00)
--- NOTE | 2023-02-24 06:26 | P.DS ---
Providers Date of admission: 02/16/23 16:02 Expected date of discharge: 02/22/23 Attending physician: Gwen Mcknight Consults: 02/16/23 14:08 Consult Physician Urgent Consulting Provider: Diane Madera Consult Reason/Comments: Osteomyelitis, established patient Do you want consulting provider notified?: Yes 02/16/23 14:38 Consult Physician Urgent Consulting Provider: Alicia Christina Consult Reason/Comments: Osteomyelitis, established patient Do you want consulting provider notified?: Yes Consult Physician Urgent Consulting Provider: Shira Hess Consult Reason/Comments: Dialysis Do you want consulting provider notified?: Yes Primary care physician: Hayes Oshea Hospital Course: Final diagnosis -Ulceration left fourth finger with foul-smelling drainage, osteomyelitis, status post left ring finger MP disarticulation amputation, likely secondary to poorly managed diabetes -End-stage renal disease/HD on a TTS schedule; patient has left arm aVF -Diabetes mellitus type 2, insulin-dependent, uncontrolled with hyperglycemia -History of paroxysmal atrial fibrillation -Hypertension -Obesity with a BMI of 38.7 -History of CHF, chronic with diastolic dysfunction, most recent EF was 50% -DVT prophylaxis; SCDs -GI prophylaxis- -full code Discharge disposition Patient is being discharged in a stable condition with guarded prognosis to home. Patient will follow-up with Dr. Oshea in the outpatient setting upon discharge. Patient is to continue with hemodialysis as scheduled and will be receiving antibiotics with dialysis along with oral Flagyl per infectious di sease recommendations. Total time taken is greater than 35 minutes. Hospital course This is a 62-year-old male who was recently admitted with ulcerations of the left hand osteomyelitis being closely monitored by orthopedics Dr. Christina and underwent a left ring finger MP disarticulation amputation and maintained on antibiotics with infectious disease following closely. Culture showing group D enterococcus and will be continued on vancomycin along with oral Flagyl during dialysis close outpatient follow-up and continued wound care. Patient has been cleared by consultations for close outpatient follow-up with orthopedics as well. Please refer to consultation notes for further HPI. Currently no reports of chest pain, shortness of breath, or palpitations. Patient is afebrile. No reports of nausea or vomiting and patient is tolerating diet. Patient will be discharged home today. Physical exam: Gen: This is a 62-year-old male who is awake, alert and oriented 3, well- developed, well-nourished, obese HEENT: Head is atraumatic, normocephalic. Pupils equal, round. Sclerae is anicteric. NECK: Supple. No JVD. No lymphadenopathy. No thyromegaly. LUNGS: Clear to auscultation. No wheezes or rhonchi. No intercostal retractions. HEART: Regular rate and rhythm. No murmur. ABDOMEN: Soft. Bowel sounds are present. No masses. No tenderness. EXTREMITIES: No pedal edema. No calf tenderness. NEUROLOGICAL: Patient is awake, alert and oriented x3. Cranial nerves 2 through 12 are grossly intact. Please refer to medication reconciliation sheet for a list of medications. The impression and plan of care has been dictated by Sierra Henderson, Nurse Practitioner as directed. Dr. Mil MD I have performed a history and examination and MDM of this patient, discussed the same with the dictator, and agree with the dictator's assessment and plan as written ,documented as a scribe. Based on total visit time, I have performed more than 50% of the visit. Patient Condition at Discharge: Fair Plan - Discharge Summary Discharge Rx Participant: No New Discharge Prescriptions: New Calcium Acetate [PhosLo] 1,334 mg PO BID-W/MEALS 30 Days #120 tab Acetaminophen Tab [Tylenol] 650 mg PO Q6HR PRN tab PRN Reason: Mild Pain Or Fever > 100.5 Insulin Detemir (Levemir) [Levemir] 20 unit SQ HS 30 Days #5 each metroNIDAZOLE [Flagyl] 500 mg PO TID #42 tab Continue Levothyroxine Sodium 100 mcg PO DAILY Torsemide [Demadex] 40 mg PO DAILY Bryanna-Olimpia 1 tab PO DAILY Insulin Regular, Human [Novolin R Flexpen] 15 unit SQ ACHS PRN PRN Reason: Blood Sugar - High HYDROcodone/APAP 10-325MG [[place] 10-325] 1 tab PO Q6H FLUoxetine HCL [PROzac] 40 mg PO DAILY 30 Days #30 cap Nitroglycerin Sl Tabs [Nitrostat] 0.4 mg SL Q5M PRN PRN Reason: Chest Pain Atorvastatin [Lipitor] 40 mg PO HS #30 tab carvediloL [Coreg] 6.25 mg PO BID-W/MEALS #60 tab lisinopriL [Zestril] 5 mg PO HS Apixaban [Eliquis] 2.5 mg PO BID Discontinued Insulin Detemir [Levemir Flextouch Pen] 15 units SQ HS Discharge Medication List Levothyroxine Sodium 100 mcg PO DAILY 07/06/17 [History] Torsemide [Demadex] 40 mg PO DAILY 09/10/19 [History] Bryanna-Olimpia 1 tab PO DAILY 10/20/20 [History] HYDROcodone/APAP 10-325MG [[place] 10-325] 1 tab PO Q6H 11/24/20 [History] Insulin Regular, Human [Novolin R Flexpen] 15 unit SQ ACHS PRN 11/24/20 [History] Nitroglycerin Sl Tabs [Nitrostat] 0.4 mg SL Q5M PRN 03/11/21 [History] Atorvastatin [Lipitor] 40 mg PO HS #30 tab 06/15/22 [Rx] carvediloL [Coreg] 6.25 mg PO BID-W/MEALS #60 tab 08/09/22 [Rx] lisinopriL [Zestril] 5 mg PO HS 10/07/22 [History] FLUoxetine HCL [PROzac] 40 mg PO DAILY 30 Days #30 cap 10/16/22 [Rx] Apixaban [Eliquis] 2.5 mg PO BID 02/16/23 [History] Acetaminophen Tab [Tylenol] 650 mg PO Q6HR PRN tab 02/21/23 [Rx] Calcium Acetate [PhosLo] 1,334 mg PO BID-W/MEALS 30 Days #120 tab 02/21/23 [Rx] Insulin Detemir (Levemir) [Levemir] 20 unit SQ HS 30 Days #5 each 02/21/23 [Rx] metroNIDAZOLE [Flagyl] 500 mg PO TID #42 tab 02/21/23 [Rx] Follow up Appointment(s)/Referral(s): Griffin Hopson MD [Medical Doctor] - As Needed Alicia Christina DO [Doctor of Osteopathic Medicine] - 03/04/23 1:30 pm (You will see Lupe Ramires.) Hayes Oshea MD [Primary Care Provider] - 02/24/23 9:30 am (At the [address]) Diane Madera, MD [STAFF PHYSICIAN] - 03/07/23 1:30 pm Patient Instructions/Handouts: Metronidazole (By mouth), Calcium Acetate (By mouth), Insulin Detemir (By injection), Chronic Kidney Disease (DC), Osteomyelitis (DC), Hemodialysis (DC) Activity/Diet/Wound Care/Special Instructions: Activity Limited until follow-up Follow-up with consultations outpatient Follow-up primary care provider on discharge Continue dialysis Tuesday//Tuesday Continue taking medications as prescribed Continue to monitor blood sugars closely and keep a diary of all readings for primary care follow-up Change dressing to left hand as needed. Discharge Disposition: HOME SELF-CARE
== END 2023-02-22 17:54 | disposition home or self-care (01) | DRG 982 ==
LOC: EC 12:35 → 5NMEDONC 16:02
PROVIDERS: ADMIT Hospitalist; ATTEND Hospitalist
PROC: 5A1D70Z Performance of Urinary Filtration, Intermittent, Less than 6 Hours Per Day (ICD-10-PCS; 2023-02-17)
PROC: 0X6 Anatomical Regions, Upper Extremities, Detachment (ICD-10-PCS; principal; 2023-02-17 18:04)
DX: E11.69 Type 2 diabetes mellitus with other specified complication (principal); I13.2 Hypertensive heart and chronic kidney disease with heart failure and with stage 5 chronic kidney disease, or end stage renal disease; I50.32 Chronic diastolic (congestive) heart failure; L02.512 Cutaneous abscess of left hand; L03.114 Cellulitis of left upper limb; M86.9 Osteomyelitis, unspecified; E11.622 Type 2 diabetes mellitus with other skin ulcer; E11.40 Type 2 diabetes mellitus with diabetic neuropathy, unspecified; Z79.4 Long term (current) use of insulin; E11.22 Type 2 diabetes mellitus with diabetic chronic kidney disease; E11.319 Type 2 diabetes mellitus with unspecified diabetic retinopathy without macular edema; E66.9 Obesity, unspecified; Z68.38 Body mass index [BMI] 38.0-38.9, adult; E78.5 Hyperlipidemia, unspecified; N18.6 End stage renal disease; I25.10 Atherosclerotic heart disease of native coronary artery without angina pectoris; I25.2 Old myocardial infarction; I48.0 Paroxysmal atrial fibrillation; E11.628 Type 2 diabetes mellitus with other skin complications; B95.2 Enterococcus as the cause of diseases classified elsewhere; L98.499 Non-pressure chronic ulcer of skin of other sites with unspecified severity; E83.9 Disorder of mineral metabolism, unspecified; Z99.2 Dependence on renal dialysis; Z79.01 Long term (current) use of anticoagulants; M10.9 Gout, unspecified; Z79.890 Hormone replacement therapy; F40.240 Claustrophobia; F42.8 Other obsessive-compulsive disorder; M54.50 Low back pain, unspecified; Z79.899 Other long term (current) drug therapy; Z82.0 Family history of epilepsy and other diseases of the nervous system; Z82.49 Family history of ischemic heart disease and other diseases of the circulatory system; Z86.73 Personal history of transient ischemic attack (TIA), and cerebral infarction without residual deficits; Z87.891 Personal history of nicotine dependence; Z95.5 Presence of coronary angioplasty implant and graft; Z98.84 Bariatric surgery status; Z86.14 Personal history of Methicillin resistant Staphylococcus aureus infection; Z82.3 Family history of stroke; Z89.029 Acquired absence of unspecified finger(s)
CPT/HCPCS: 36415; 80048; 80053; 80202; 83036; 83605; 84132; 85025; 85652; 86140; 86706; 87040; 87070; 87075; 87205; 87340; 87350; 90935; 93005; 96365; 99285

== ENCOUNTER 2023-04-18 13:31 | Inpatient (IN) | payer MEDICARE, BC ==
[2023-04-18] MEDS ORDERED: NITROGLYCERIN SL TABS 0.4 MG TAB SUBLINGUAL PRN ×3 (13:57→18:58)
[2023-04-18] MEDS ORDERED: ASPIRIN 81 MG PO STA (14:00)
[2023-04-18] MEDS ORDERED: VERAPAMIL 2.5 MG/ML 2 ML AMP ONE (14:04)
[2023-04-18] MEDS ORDERED: LIDOCAINE 1% INJ 10MG/ML (20 ML MDV) ONE (14:04)
--- NOTE | 2023-04-18 14:06 | ED ---
General Adult HPI - General Chief complaint: Chest Pain Stated complaint: Chest pressure Time Seen by Provider: 04/18/23 13:52 Source: patient Mode of arrival: wheelchair Limitations: physical limitation - History of Present Illness Initial comments: This is a 62-year-old male with a significant past medical history including diabetes, hypertension, atrial fibrillation on Eliquis, 2 previous cardiac stents as well as end-stage renal disease on dialysis Tuesday, and Tuesday presented to emergency department for chest pain that began around noon today. The patient stated that the pain is on the left side of his chest that does radiate down the left side of his arm. The patient reported that it feels similar to his previous heart attack. The patient stated he came back to the emergency department for evaluation. The patient denied any other acute pain or complaints at this time. - Related Data Home Medications Medication Instructions Recorded Confirmed Levothyroxine Sodium 100 mcg PO DAILY 07/06/17 04/18/23 Torsemide [Demadex] 40 mg PO DAILY 09/10/19 04/18/23 Bryanna-Olimpia 1 tab PO DAILY 10/20/20 04/18/23 HYDROcodone/APAP 10-325MG [[place] 1 tab PO Q6H 11/24/20 04/18/23 10-325] Insulin Regular, Human [Novolin R 15 unit SQ ACHS PRN 11/24/20 04/18/23 Flexpen] Nitroglycerin Sl Tabs [Nitrostat] 0.4 mg SL Q5M PRN 03/11/21 04/18/23 lisinopriL [Zestril] 5 mg PO HS 10/07/22 04/18/23 Apixaban [Eliquis] 2.5 mg PO BID 02/16/23 04/18/23 Calcium Carbonate [Tums] 1,000 mg PO AC-TID 04/18/23 04/18/23 Cephalexin [Keflex] 500 mg PO Q12HR 04/18/23 04/18/23 methocarbamoL [Robaxin] 500 - 1,000 mg PO QID PRN 04/18/23 04/18/23 Previous Rx's Medication Instructions Recorded Atorvastatin [Lipitor] 40 mg PO HS #30 tab 06/15/22 carvediloL [Coreg] 6.25 mg PO BID-W/MEALS #60 tab 08/09/22 FLUoxetine HCL [PROzac] 40 mg PO DAILY 30 Days #30 cap 10/16/22 Acetaminophen Tab [Tylenol] 650 mg PO Q6HR PRN tab 02/21/23 Insulin Detemir (Levemir) [Levemir] 20 unit SQ HS 30 Days #5 each 02/21/23 metroNIDAZOLE [Flagyl] 500 mg PO TID #42 tab 02/21/23 Allergies Allergy/AdvReac Type Severity Reaction Status Date / Time No Known Allergies Allergy Verified 04/18/23 17:46 Review of Systems ROS Statement: Those systems with pertinent positive or pertinent negative responses have been documented in the HPI. ROS Other: All systems not noted in ROS Statement are negative. Past Medical History Past Medical History: Coronary Artery Disease (CAD), Cancer, Heart Failure, CVA/TIA, Diabetes Mellitus, Eye Disorder, Hypertension, Myocardial Infarction (ID), Renal Disease, Sleep Apnea/CPAP/BIPAP, Thyroid Disorder Additional Past Medical History / Comment(s): unhealing sore left index finger, neuropathy bilateral lower extremity/feet, bilateral eye diabetic reti nopathy/poor vision/multiple injections, ESRD with hemodialysis T//SAT from 6:15 to 11:00, anemia, "mini strokes" x2, AVANI with CPap use, occasional low back pain/disc disease, gout, hypothyroid Last Myocardial Infarction Date:: 10/20/20 History of Any Multi-Drug Resistant Organisms: MRSA Date of last positivie culture/infection: 12/10/21 MDRO Source:: Finger-Right 5th Past Surgical History: Adenoidectomy, Bariatric Surgery, Cholecystectomy, Heart Catheterization, Heart Catheterization With Stent, Orthopedic Surgery, Tonsillectomy Additional Past Surgical History / Comment(s): 10/22/20 PCI with stents x2, lap banding, FX of right ankle repair pins / plate, fistual lt arm jul 2018, lt shoulder sx (d/t separation), colonoscopies, bilateral cataract removals/lens implants. LIF surgery 08/11/21 R LEG stacey placed January 2023 Past Anesthesia/Blood Transfusion Reactions: Motion Sickness Additional Past Anesthesia/Blood Transfusion Reaction / Comment(s): CLAUSTERPHOBIA Date of Last Stent Placement:: 10/22/20 Past Psychological History: Anxiety Smoking Status: Former smoker - Past Family History Mother History Unknown: Yes Family Medical History: Coronary Artery Disease (CAD), Myocardial Infarction (ID) Additional Family Medical History / Comment(s): Mother at age 58 from multiple sclerosis Father Family Medical History: CVA/TIA, Myocardial Infarction (ID) Additional Family Medical History / Comment(s): Father had history of ID and CVA followed by a second ID and CVA and at age 65. Brother(s) Additional Family Medical History / Comment(s): . General Exam Limitations: no limitations General appearance: alert, in no apparent distress, obese Head exam: Present: atraumatic, normocephalic, normal inspection Eye exam: Present: normal appearance, PERRL Pupils: Present: normal accommodation ENT exam: Present: normal exam, normal oropharynx, mucous membranes moist Neck exam: Present: normal inspection, full ROM Respiratory exam: Present: normal lung sounds bilaterally Cardiovascular Exam: Present: regular rate, normal rhythm, normal heart sounds GI/Abdominal exam: Present: soft, normal bowel sounds Extremities exam: Present: normal inspection, full ROM Back exam: Present: normal inspection, full ROM Neurological exam: Present: alert, oriented X3, CN II-XII intact Psychiatric exam: Present: normal affect, normal mood Skin exam: Present: warm, dry Course Vital Signs 04/18/23 04/18/23 13:33 14:08 Temperature 98.3 F Pulse Rate 88 88 Respiratory 16 18 Rate Blood Pressure 147/91 118/70 O2 Sat by Pulse 99 96 Oximetry EKG Findings - EKG Comments: EKG Findings:: An EKG was obtained and was interpreted by myself showing a rate of 90, CA interval 26, QRS duration of 100 and QTC of 399. This EKG showed ST segment elevation in leads V2 through V6 consistent with a STEMI. Immediately when I reviewed this EKG, a code STEMI was called. Medical Decision Making - Medical Decision Making Was pt. sent in by a medical professional or institution (, PA, RESEARCH TECHNICIAN, urgent care, hospital, or usp...) When possible be specific @ -No Did you speak to anyone other than the patient for history (EMS, parent, family, police, friend...)? What history was obtained from this source @ -No Did you review nursing and triage notes (agree or disagree)? Why? @ -I reviewed and agree with nursing and triage notes Were old charts reviewed (outside hosp., previous admission, EMS record, old EKG, old radiological studies, urgent care reports/EKG's, usp records)? Report findings @ -No old charts were reviewed Differential Diagnosis (chest pain, altered mental status, abdominal pain women, abdominal pain men, vaginal bleeding, weakness, fever, dyspnea, syncope, headache, dizziness, GI bleed, back pain, seizure, CVA, palpatations, mental health)? @ -STEMI, ACS, pneumothorax, pneumonia EKG interpreted by me (3pts min.). @ -As above X-rays interpreted by me (1pt min.). @ -Chest x-ray was ordered at this time and was interpreted by myself showing low lung volumes a generalized hazy appearance which could represent atelectasis versus pulmonary edema. CT interpreted by me (1pt min.). @ -None done U/S interpreted by me (1pt. min.). @ -None done What testing was considered but not performed or refused? (CT, X-rays, U/S, labs)? Why? @ -None What meds were considered but not given or refused? Why? @ -None Did you discuss the management of the patient with other professionals (professionals i.e. , PA, RESEARCH TECHNICIAN, lab, RT, psych nurse, social contact worker, billet inspector, teacher, customer service security officer, estate manager)? Give summary @ -Yes, STEMI protocol was contacted and I did speak with both the feed elevator worker electronic controls repairer supervisor as well as the patient's primary care physician for admission. Was smoking cessation discussed for >3mins.? @ -No Was critical care preformed (if so, how long)? @ -Yes, see above Were there social determinants of health that impacted care today? How? (Homelessness, low income, unemployed, alcoholism, drug addiction, transportation, low edu. Level, literacy, decrease access to med. care, long-term, rehab)? @ -No Was there de-escalation of care discussed even if they declined (Discuss DNR or withdrawal of care, Hospice)? DNR status @ -No What co-morbidities impacted this encounter? (DM, HTN, Smoking, COPD, CAD, C ancer, CVA, ARF, Chemo, Hep., AIDS, mental health diagnosis, sleep apnea, morbid obesity)? @ -Hypertension, diabetes, previous cardiac stenting, end-stage renal disease on dialysis, atrial fibrillation on Eliquis Was patient admitted / discharged? Hospital course, mention meds given and route, prescriptions, significant lab abnormalities, going to OR and other pertinent info. @ -The patient was seen and evaluated emergency department. Physical exam, the patient was resting in bed in EKG was obtained initially on arrival. Initial EKG showed a STEMI and a STEMI was called at 1356. The patient did take his Eliquis and was given 324 mg of aspirin. The team was present at the bedside and did take the patient emergently to the cardiac Criminal Judge. The patient was agreeable to this plan and was admitted in stable condition Undiagnosed new problem with uncertain prognosis? @ -No Drug Therapy requiring intensive monitoring for toxicity (Heparin, Nitro, Insulin, Cardizem)? @ -No Were any procedures done? @ -No Diagnosis/symptom? @ -STEMI Acute, or Chronic, or Acute on Chronic? @ -Acute Uncomplicated (without systemic symptoms) or Complicated (systemic symptoms)? @ -Complicated Side effects of treatment? @ -No Exacerbation, Progression, or Severe Exacerbation? @ -No Poses a threat to life or bodily function? How? (Chest pain, USA, ID, pneumonia, PE, COPD, DKA, ARF, appy, cholecystitis, CVA, Diverticulitis, Homicidal, Suicidal, threat to staff... and all critical care pts) @ -Yes, continued STEMI can lead to permanent cardiac damage and possible . - Lab Data Result diagrams: 04/18/23 13:55 04/18/23 13:55 Lab Results 04/18/23 04/18/23 04/18/23 Range/Units 13:55 13:55 13:55 WBC 12.7 H (3.8-10.6) k/uL RBC 3.49 L (4.30-5.90) m/uL Hgb 11.7 L (13.0-17.5) gm/dL Hct 34.7 L (39.0-53.0) % MCV 99.6 (80.0-100.0) fL MCH 33.5 (25.0-35.0) pg MCHC 33.7 (31.0-37.0) g/dL RDW 14.8 (11.5-15.5) % Plt Count 146 L (150-450) k/uL MPV 8.2 Neutrophils % 81 % Lymphocytes % 9 % Monocytes % 5 % Eosinophils % 2 % Basophils % 1 % Neutrophils # 10.2 H (1.3-7.7) k/uL Lymphocytes # 1.2 (1.0-4.8) k/uL Monocytes # 0.7 (0-1.0) k/uL Eosinophils # 0.2 (0-0.7) k/uL Basophils # 0.1 (0-0.2) k/uL Macrocytosis Slight PT 10.5 (9.0-12.0) sec INR 1.0 (<1.2) APTT 27.1 (22.0-30.0) sec Sodium 133 L (137-145) mmol/L Potassium 4.4 (3.5-5.1) mmol/L Chloride 92 L (98-107) mmol/L Carbon Dioxide 31 H (22-30) mmol/L Anion Gap 10 mmol/L BUN 50 H (9-20) mg/dL Creatinine 4.96 H (0.66-1.25) mg/dL Est GFR (CKD-EPI)AfAm 13 (>60 ml/min/1.73 sqM) Est GFR (CKD-EPI)NonAf 12 (>60 ml/min/1.73 sqM) Glucose 126 H (74-99) mg/dL Calcium 10.2 (8.4-10.2) mg/dL Total Bilirubin 0.9 (0.2-1.3) mg/dL AST 53 (17-59) U/L ALT 23 (4-49) U/L Alkaline Phosphatase 66 (38-126) U/L Troponin I (0.000-0.034) ng/mL Total Protein 6.7 (6.3-8.2) g/dL Albumin 3.5 (3.5-5.0) g/dL 04/18/23 Range/Units 13:55 WBC (3.8-10.6) k/uL RBC (4.30-5.90) m/uL Hgb (13.0-17.5) gm/dL Hct (39.0-53.0) % MCV (80.0-100.0) fL MCH (25.0-35.0) pg MCHC (31.0-37.0) g/dL RDW (11.5-15.5) % Plt Count (150-450) k/uL MPV Neutrophils % % Lymphocytes % % Monocytes % % Eosinophils % % Basophils % % Neutrophils # (1.3-7.7) k/uL Lymphocytes # (1.0-4.8) k/uL Monocytes # (0-1.0) k/uL Eosinophils # (0-0.7) k/uL Basophils # (0-0.2) k/uL Macrocytosis PT (9.0-12.0) sec INR (<1.2) APTT (22.0-30.0) sec Sodium (137-145) mmol/L Potassium (3.5-5.1) mmol/L Chloride (98-107) mmol/L Carbon Dioxide (22-30) mmol/L Anion Gap mmol/L BUN (9-20) mg/dL Creatinine (0.66-1.25) mg/dL Est GFR (CKD-EPI)AfAm (>60 ml/min/1.73 sqM) Est GFR (CKD-EPI)NonAf (>60 ml/min/1.73 sqM) Glucose (74-99) mg/dL Calcium (8.4-10.2) mg/dL Total Bilirubin (0.2-1.3) mg/dL AST (17-59) U/L ALT (4-49) U/L Alkaline Phosphatase (38-126) U/L Troponin I 4.050 H* (0.000-0.034) ng/mL Total Protein (6.3-8.2) g/dL Albumin (3.5-5.0) g/dL Critical Care Time Critical Care Time: Yes Total Critical Care Time: 31 Disposition Clinical Impression: ST elevation myocardial infarction (STEMI) Disposition: ADMITTED IP TO THIS [facility] Condition: Serious Is patient prescribed a controlled substance at d/c from ED?: No Time of Disposition: 13:40 Decision to Admit Reason: Admit from EC Decision Date: 04/18/23 Decision Time: 13:40
[2023-04-18] MEDS ORDERED: NALOXONE 0.4 MG/ML 1 ML VIAL IV PRN (14:07)
[2023-04-18 14:12] LABS: Basophils # (A) 0.1 k/uL (0-0.2); Basophils % (A) 1 %; Eosinophils # (A) 0.2 k/uL (0-0.7); Eosinophils % (A) 2 %; HCT 34.7 % (39.0-53.0); HGB 11.7 gm/dL (13.0-17.5); Lymphocytes # (A) 1.2 k/uL (1.0-4.8); Lymphocytes % (A) 9 %; MCH 33.5 pg (25.0-35.0); MCHC 33.7 g/dL (31.0-37.0); MCV 99.6 fL (80.0-100.0); Macrocytosis Slight; Mean Platelet Volume 8.2; Monocytes # (A) 0.7 k/uL (0-1.0); Monocytes % (A) 5 %; Neutrophils # (A) 10.2 k/uL (1.3-7.7); Neutrophils % (A) 81 %; Platelet Count 146 k/uL (150-450); RBC 3.49 m/uL (4.30-5.90); RDW 14.8 % (11.5-15.5); WBC 12.7 k/uL (3.8-10.6)
[2023-04-18] MEDS ORDERED: fentaNYL (PF) 50 MCG/ML 2 ML AMP ONE (14:17)
--- NOTE | 2023-04-18 14:18 | XR ---
EXAMINATION TYPE: XR chest 1V portable DATE OF EXAM: 04/18/2023 2:09 PM COMPARISON: Chest radiographs from 08/07/2022. TECHNIQUE: XR chest 1V portable Frontal view of the chest. CLINICAL INDICATION:Male, 62 years old with history of chest pain; FINDINGS: Lungs/Pleura: Low lung volumes are present. There is no evidence of pleural effusion, focal consolida tion, or pneumothorax. Pulmonary vascularity: Unremarkable. Heart/mediastinum: Cardiomediastinal silhouette is prominent in size. Musculoskeletal: No acute osseous pathology. IMPRESSION: Low lung volumes with a generalized hazy appearance which could represent atelectasis versus pulmonar y edema correlate with serum BNP.
[2023-04-18 14:21] LABS: Partial Thromboplastin Time 27.1 sec (22.0-30.0); Prothrombin Time 10.5 sec (9.0-12.0)
[2023-04-18] MEDS ORDERED: SODIUM CHLORIDE 0.9% 500 ML 500 ML IV ONE (14:22)
[2023-04-18] MEDS ORDERED: MIDAZOLAM 2 MG/2 ML VIAL IVP ONE (14:22)
[2023-04-18] MEDS ORDERED: fentaNYL (PF) 50 MCG/1 ML VIAL IVP ONE (14:22)
[2023-04-18] MEDS ORDERED: LIDOCAINE 1% INJ 10MG/ML (30 ML VIAL-PF) SQ ONE (14:22)
[2023-04-18 14:26] LABS: ALT 23 U/L (4-49); AST 53 U/L (17-59); African American GFR (CKD) 13 (>60 ml/min/1.73 sqM); Albumin 3.5 g/dL (3.5-5.0); Alkaline Phosphatase 66 U/L (38-126); Anion Gap 10 mmol/L; Blood Urea Nitrogen 50 mg/dL (9-20); Calcium 10.2 mg/dL (8.4-10.2); Carbon Dioxide 31 mmol/L (22-30); Chloride 92 mmol/L (98-107); Glucose 126 mg/dL (74-99); Non-African American GFR(CKD) 12 (>60 ml/min/1.73 sqM); Sodium 133 mmol/L (137-145); Total Bilirubin 0.9 mg/dL (0.2-1.3); Total Protein 6.7 g/dL (6.3-8.2)
--- NOTE | 2023-04-18 14:33 | P.CRDCN ---
History of Present Illness History of present illness: HISTORY OF PRESENT ILLNESS: This is a 62-year-old male with a past medical history significant for hypertension, hyperlipidemia, coronary artery disease with previous stenting of the RCA in 2020, paroxysmal atrial fibrillation, pericardial effusion with tamponade status post pericardial window in 2020, end-stage renal disease on hemodialysis, and amputations of fingers on his left hand secondary to osteomyelitis. Patient follows in the office with Dr. Jimenez. We have been asked to see the patient in consultation for STEMI. Patient examined at the bedside in the emergency room with Dr. Coello. Patient states he woke up this morning and was not feeling well. He reports having some nausea. He states later in the morning he developed chest pain. He states the pain was in the middle of his chest and felt like a pressure type sensation. He reports radiati on down his left arm. EKG was performed revealing ST elevation in V2-V6. It is noted that the patient underwent a cardiac catheterization in October 2020 with stenting of the mid RCA. He also underwent Lexiscan stress test in July 2022 which was negative for ischemia. REVIEW OF SYSTEMS: At the time of my exam: CONSTITUTIONAL: Denies fever or chills. HEENT: Denies blurred vision, vision changes, or eye pain. Denies hemoptysis CARDIOVASCULAR: + chest pain. Denies orthopnea. Denies PND. Denies palpitations RESPIRATORY: Denies shortness of breath. GASTROINTESTINAL: Denies abdominal pain. Denies nausea or vomiting. HEMATOLOGIC: Denies bleeding disorders. GENITOURINARY: Denies any blood in urine. SKIN: Denies pruitis. Denies rash. PHYSICAL EXAM: VITAL SIGNS: Reviewed. GENERAL: Well-developed in no acute distress. HEENT: Head is normocephalic. Pupils are equal, round. Sclerae anicteric. Mucous membranes of the mouth are moist. Neck supple. No JVD or thyromegaly LUNGS: Respirations even and unlabored. Lungs essentially clear to auscultation bilaterally. HEART: Regular rate and rhythm. S1 and S2 heard. ABDOMEN: Soft. Nondistended. Nontender. EXTREMITIES: Amputations of left fingers noted. Normal range of motion. No cl ubbing or cyanosis. Peripheral pulses intact. No lower extremity edema NEUROLOGIC: Awake and alert. Oriented x 3. ASSESSMENT: STEMI Coronary artery disease with previous stenting of the RCA, 2020 Paroxysmal atrial fibrillation End-stage renal disease on hemodialysis Hypertension Hyperlipidemia History of pericardial effusion with tamponade, status post pericardial window, 2020 History of CVA History of amputations of his fingers on left hand secondary to osteomyelitis PLAN: Dr. Coello evaluated patient in the ER. Patient presented with chest pain and found to have a STEMI on EKG. Patient taken urgently to the cardiac factory laborer for cardiac catheterization with Dr. Coello. Obtain 2D echo to assess cardiac structure and function. Resume home cardiac medications when medication list is updated and verified. Further recommendations pending patients clinical course Nurse practitioner note has been reviewed by physician. Signing provider agrees with the documented findings, assessment, and plan of care. Past Medical History Past Medical History: Coronary Artery Disease (CAD), Cancer, Heart Failure, CVA/TIA, Diabetes Mellitus, Eye Disorder, Hypertension, Myocardial Infarction (M I), Renal Disease, Sleep Apnea/CPAP/BIPAP, Thyroid Disorder Additional Past Medical History / Comment(s): unhealing sore left index finger, neuropathy bilateral lower extremity/feet, bilateral eye diabetic retinopathy/poor vision/multiple injections, ESRD with hemodialysis T//SAT from 6:15 to 11:00, anemia, "mini strokes" x2, AVANI with CPap use, occasional low back pain/disc disease, gout, hypothyroid Last Myocardial Infarction Date:: 10/20/20 History of Any Multi-Drug Resistant Organisms: MRSA Date of last positivie culture/infection: 12/10/21 MDRO Source:: Finger-Right 5th Past Surgical History: Adenoidectomy, Bariatric Surgery, Cholecystectomy, Heart Catheterization, Heart Catheterization With Stent, Orthopedic Surgery, Tonsillectomy Additional Past Surgical History / Comment(s): 10/22/20 PCI with stents x2, lap banding, FX of right ankle repair pins / plate, fistual lt arm jul 2018, lt shoulder sx (d/t separation), colonoscopies, bilateral cataract removals/lens implants. LIF surgery 08/11/21 R LEG stacey placed January 2023 Past Anesthesia/Blood Transfusion Reactions: Motion Sickness Additional Past Anesthesia/Blood Transfusion Reaction / Comment(s): UMER MARTINEZ Date of Last Stent Placement:: 10/22/20 Past Psychological History: Anxiety Smoking Status: Former smoker - Past Family History Mother History Unknown: Yes Family Medical History: Coronary Artery Disease (CAD), Myocardial Infarction (MS) Additional Family Medical History / Comment(s): Mother at age 58 from m ultiple sclerosis Father Family Medical History: CVA/TIA, Myocardial Infarction (MS) Additional Family Medical History / Comment(s): Father had history of MS and CVA followed by a second MS and CVA and at age 65. Brother(s) Additional Family Medical History / Comment(s): . Medications and Allergies Home Medications Medication Instructions Recorded Confirmed Type Levothyroxine Sodium 100 mcg PO DAILY 07/06/17 04/06/23 History Torsemide [Demadex] 40 mg PO DAILY 09/10/19 04/06/23 History Bryanna-Olimpia 1 tab PO DAILY 10/20/20 04/06/23 History HYDROcodone/APAP 10-325MG [[place] 1 tab PO Q6H 11/24/20 04/06/23 History 10-325] Insulin Regular, Human [Novolin R 15 unit SQ ACHS PRN 11/24/20 04/06/23 History Flexpen] Nitroglycerin Sl Tabs [Nitrostat] 0.4 mg SL Q5M PRN 03/11/21 04/06/23 History Atorvastatin [Lipitor] 40 mg PO HS #30 tab 06/15/22 04/06/23 Rx carvediloL [Coreg] 6.25 mg PO BID-W/MEALS #60 tab 08/09/22 04/06/23 Rx lisinopriL [Zestril] 5 mg PO HS 10/07/22 04/06/23 History FLUoxetine HCL [PROzac] 40 mg PO DAILY 30 Days #30 cap 10/16/22 04/06/23 Rx Apixaban [Eliquis] 2.5 mg PO BID 02/16/23 04/06/23 History Acetaminophen Tab [Tylenol] 650 mg PO Q6HR PRN tab 02/21/23 04/06/23 Rx Calcium Acetate [PhosLo] 1,334 mg PO BID-W/MEALS 30 Days 02/21/23 04/06/23 Rx #120 tab Insulin Detemir (Levemir) [Levemir] 20 unit SQ HS 30 Days #5 each 02/21/23 04/06/23 Rx metroNIDAZOLE [Flagyl] 500 mg PO TID #42 tab 02/21/23 04/06/23 Rx Allergies Allergy/AdvReac Type Severity Reaction Status Date / Time No Known Allergies Allergy Verified 04/18/23 13:35 Physical Exam Vitals: Vital Signs Temp Pulse Resp BP Pulse Ox 04/18/23 13:33 98.3 F 88 16 147/91 99 Intake and Output 04/17/23 04/18/23 04/18/23 22:59 06:59 14:59 Other: Weight 124.738 kg Results 04/18/23 13:55 CBC 04/18/23 Range/Units 13:55 WBC 12.7 H (3.8-10.6) k/uL RBC 3.49 L (4.30-5.90) m/uL Hgb 11.7 L (13.0-17.5) gm/dL Hct 34.7 L (39.0-53.0) % Plt Count 146 L (150-450) k/uL Current Medications Generic Name Dose Route Start Last Admin Trade Name Freq PRN Reason Stop Dose Admin Naloxone HCl 0.2 mg 04/18/23 14:07 Naloxone 0.4 Mg/Ml 1 Ml Vial IV Q2M PRN Opioid Reversal Nitroglycerin 0.4 mg 04/18/23 13:57 Nitroglycerin Sl Tabs 0.4 Mg Tab SUBLINGUAL Q5M PRN Chest Pain Intake and Output 04/17/23 04/18/23 04/18/23 22:59 06:59 14:59 Other: Weight 124.738 kg Patient Weight 04/19/23 06:59 Weight 124.738 kg 04/18/23 13:55
[2023-04-18] MEDS: HEPARIN SODIUM 1,000 UN/ML (10ML VL) IV ONE ×3 (14:35→15:34)
[2023-04-18] MEDS ORDERED: TICAGRELOR 90 MG TAB ONE (14:37)
[2023-04-18 14:39] LABS: Potassium 4.4 mmol/L (3.5-5.1)
[2023-04-18] MEDS ORDERED: TICAGRELOR 90 MG TAB PO ONE (14:39)
[2023-04-18] MEDS ORDERED: IOPAMIDOL-370 100ML BTL INJ ONE ×3 (14:51→15:28)
[2023-04-18] MEDS: NITROGLYCERIN 1000MCG/10ML SYRINGE INTRACORON ONE ×2 (15:02→15:09)
[2023-04-18] MEDS ORDERED: RX INFO: IV CONTRAST WAS GIVEN 1 EACH MISC MISCELLANE PRN (15:51)
--- NOTE | 2023-04-18 15:51 | P.PRCINT ---
Percutaneous Coronary Int. - Percutaneous Coronary Intervention Percutaneous Coronary Intervention: PROCEDURES PERFORMED: Left heart catheterization, bilateral coronary angiography, ultrasound guided arterial access, PCI mid LAD 3.25 x 15mm Xience, post dilated with a 4.0 NC balloon, PCI diagonal 1 with a 2.25 x 12mm Xience TORIN, PCI mid to distal LAD with a 3.0 x 38mm Xience TORIN INDICATION: Anterior STEMI CONSENT:I have discussed the risks, benefits and alternative therapies for the above-mentioned procedure and for both sedation/analgesia as well as necessary blood product administration, if indicated, as they pertain to this patient. The patient has indicated understanding and acceptance of the risks and procedures discussed. PROCEDURE: After the risks, benefits and alternatives of the above mentioned procedure explained in detail with the patient, informed consent was obtained. Patient was taken to the catheterization lab and prepped and draped in usual fashion. Ultrasound guidance was used to assess for arterial access. Initially there was poor radial pulse however likely related to severely calcified arteries. Initial attempts were made to cannulate the right femoral artery with ultrasound however severely calcified. Further assessment of the right radial artery showed adequate anatomy and therefore 1% lidocaine was used to anesthetize the right radial artery. A 6-Congolese sheath was placed in the right radial artery using modified Seldinger technique and ultrasound guidance. Left coronary angiography was performed with a 5-Congolese CLS 3.5 catheter and right coronary angiography was performed with a 6-Congolese JR4 catheter in various views. Initially the distal LAD was somewhat more difficult to wire and fell possibly chronic with additional ST elevations inferiorly and possibility of RCA lesion with collaterals to the LAD. Therefore angiograms were taken after ballooning the proximal LAD lesion. Given no significant disease, the 6-Congolese CLS 3.5 guide was again used to engage the left main. A 6-Congolese FR4 catheter was inserted into the left ventricle and pressure measurements were obtained. The decision was made to perform PCI of LAD. A 0.014 BMW wire was advanced however initially only able to be advanced to easily pass the proximal LAD lesion. Balloon angioplasty was performed of the proximal/mid LAD lesion with a 3.0 x 12 mm balloon. Next a 0.014 was per wire was advanced into the distal LAD. Balloon angioplasty was performed with a 3.0 x 12 mm balloon. The proximal portion of the mid LAD lesion, at the bend was predilated with a 3.0 x 12 mm noncompliant balloon. Next, with the help of a Guideliner, a 3.0 x 38mm Xience TORIN was placed just proximal to the diagonal 2 branch. Next, a 2.25 x 12 mm Xience TORIN was placed at the proximal diagonal 1 branch. Finally, a 3.25 x 15 mm Xience TORIN was placed just after the diagonal 1 branch. The proximal portion was postdilated with a 4.0 noncompliant balloon. Final angiograms were performed. Per intervention there was tandem 90% mid LAD, 100% mid to distal LAD, 80% diagonal one stenoses with KATELYN 0 flow of the distal LAD and post intervention there was less than 10% stenosis with KATELYN 3 flow. The right radial sheath was removed and a TR band was placed with hemostasis achieved. The patient tolerated the procedure well. Patient was transported back to the post catheterization holding area in stable condition. Conscious Sedation: Patient was monitored under the direct supervision of myself for conscious sedation using Versed and fentanyl for a total duration of 74 minutes HEMODYNAMICS: Aorta: 92/66 LV: 89/14, LVEDP 35 SELECTIVE CORONARY ARTERIOGRAPHY: LEFT MAIN: The left main is a large caliber vessel which bifurcates into the LAD and circumflex. There is no significant stenosis. LEFT ANTERIOR DESCENDING CORONARY ARTERY: LAD is a large caliber vessel which wraps around to the apex. There is a mid LAD 90% stenosis just after a small caliber diagonal 1 branch and then diffuse mid 20-50% stenosis. The mid to distal LAD has 100% stenosis after a small caliber diagonal 2 branch. Diagonal 1 has a proximal 80% stenosis. RAMUS INTERMEDIUS: The ramus is small caliber with a proximal 40-50% stenosis. LEFT CIRCUMFLEX CORONARY ARTERY: Left circumflex is a moderate caliber vessel with diffuse 20-40% stenosis. RIGHT CORONARY ARTERY: The right coronary artery is a large caliber vessel which gives off a PDA and PLV branch and is the dominant vessel. There is a proximal 30-40% stenosis and otherwise patent proximal stent and mild 20-30% stenosis. FINAL IMPRESSION: 1. Diffuse mild CAD and significant obstructive 90% mid LAD, 100% mid to distal LAD, 80% diagonal 1 stenosis 2. S/p PCI mid LAD 3.25 x 15mm Xience, post dilated with a 4.0 NC balloon, PCI diagonal 1 with a 2.25 x 12mm Xience TORIN, PCI mid to distal LAD with a 3.0 x 38mm Xience TORIN 3. Significantly elevated left sided filling pressures PLAN: 1. Aggressive risk factor modification per most recent ACC/AHA guidelines. 2. NOAC and Brillinta for 12 months
[2023-04-18] MEDS ORDERED: SODIUM CHLORIDE 0.9% 1,000 ML in EMPTY BAG 1 BAG IV SCH (16:00)
[2023-04-18 16:01] LABS: Glucose,Whole Blood 150 mg/dL (70-110)
[2023-04-18] MEDS ORDERED: ACETAMINOPHEN TAB 325 MG TAB PO PRN (17:10)
[2023-04-18] MEDS ORDERED: DEXTROSE 50% SYRINGE 50 ML IVP PRN ×2 (17:13)
[2023-04-18] MEDS: ONDANSETRON 4 MG/2 ML VIAL IVP PRN (17:22)
[2023-04-18] MEDS: carvediloL 6.25 MG TAB PO SCH (17:22)
[2023-04-18 17:24] LABS: Glucose,Whole Blood 148 mg/dL (70-110)
[2023-04-18] MEDS: INSULIN ASPART (NovoLOG) 100 UNIT/ML VIAL SQ SCH ×2 (18:17→20:56)
[2023-04-18] MEDS ORDERED: INSULN SQ PRN (18:58)
[2023-04-18] MEDS ORDERED: INSULIN REGULAR HUMAN 100 UNIT/ML SQ PRN (18:58)
[2023-04-18] MEDS: HYDROcodone/APAP 10-325MG 1 EACH TAB PO PRN (20:26)
[2023-04-18] MEDS: lisinopriL 5 MG TAB PO SCH ×2 (20:26→20:38)
[2023-04-18] MEDS: APIXABAN 2.5 MG TABLET PO SCH (20:26)
[2023-04-18] MEDS: ATORVASTATIN 80 MG TAB PO SCH (20:26)
[2023-04-18 20:32] LABS: Glucose,Whole Blood 232 mg/dL (70-110)
[2023-04-18] MEDS: INSULIN DETEMIR (LEVEMIR) 100 UNIT/ML SYR SQ SCH (20:56)
[2023-04-18] MEDS ORDERED: CEPHALEXIN 500 MG CAP PO SCH (21:00)
[2023-04-18] MEDS ORDERED: ATORVASTATIN 40 MG TAB PO SCH (21:00)
[2023-04-18] MEDS ORDERED: AMPICILLIN-SULBACTAM 3 GM in SODIUM CHLORIDE 0.9% 100 ML IVPB SCH (21:00)
[2023-04-18] MEDS: ACETAMINOPHEN TAB 325 MG TAB PO PRN (21:09)
[2023-04-18] MEDS: MELATONIN 1 MG TAB PO SCH (21:21)
[2023-04-18] MEDS: NYSTATIN 100,000 UNIT/GM POWD 15 GM TOPICAL SCH (21:22)
[2023-04-18] MEDS: PANTOPRAZOLE 40 MG/10 ML VIAL IVP SCH (21:56)
[2023-04-18] MEDS ORDERED: metroNIDAZOLE 500 MG TAB PO SCH (22:00)
[2023-04-18] MEDS: LORazepam 1 MG TAB PO PRN (22:16)
[2023-04-19] MEDS: HYDROcodone/APAP 10-325MG 1 EACH TAB PO PRN ×3 (03:29→19:34)
[2023-04-19 06:30] LABS: Glucose,Whole Blood 98 mg/dL (70-110)
[2023-04-19] MEDS: INSULIN ASPART (NovoLOG) 100 UNIT/ML VIAL SQ SCH ×4 (06:31→20:50)
[2023-04-19] MEDS: CALCIUM CARBONATE 500 MG CHEWABLE PO SCH ×3 (06:39→17:35)
[2023-04-19] MEDS: LEVOTHYROXINE 100 MCG TAB PO SCH (06:39)
[2023-04-19] MEDS: methocarbamoL 500 MG TAB PO PRN ×2 (06:39→21:16)
[2023-04-19 08:01] LABS: Basophils # (A) 0.1 k/uL (0-0.2); Basophils % (A) 1 %; Eosinophils # (A) 0.2 k/uL (0-0.7); Eosinophils % (A) 2 %; HCT 32.4 % (39.0-53.0); HGB 10.7 gm/dL (13.0-17.5); Lymphocytes # (A) 1.2 k/uL (1.0-4.8); Lymphocytes % (A) 13 %; MCH 33.2 pg (25.0-35.0); MCV 100.8 fL (80.0-100.0); Macrocytosis Slight; Mean Platelet Volume 7.9; Monocytes # (A) 0.5 k/uL (0-1.0); Monocytes % (A) 5 %; Neutrophils # (A) 7.4 k/uL (1.3-7.7); Neutrophils % (A) 77 %; Platelet Count 130 k/uL (150-450); RBC 3.21 m/uL (4.30-5.90); RDW 14.9 % (11.5-15.5); WBC 9.6 k/uL (3.8-10.6)
[2023-04-19 08:22] LABS: ALT 28 U/L (4-49); AST 111 U/L (17-59); African American GFR (CKD) 10 (>60 ml/min/1.73 sqM); Albumin 3.2 g/dL (3.5-5.0); Alkaline Phosphatase 66 U/L (38-126); Anion Gap 14 mmol/L; Blood Urea Nitrogen 56 mg/dL (9-20); Calcium 9.4 mg/dL (8.4-10.2); Carbon Dioxide 29 mmol/L (22-30); Chloride 91 mmol/L (98-107); Glucose 110 mg/dL (74-99); Magnesium 2.1 mg/dL (1.6-2.3); Non-African American GFR(CKD) 9 (>60 ml/min/1.73 sqM); Potassium 4.9 mmol/L (3.5-5.1); Sodium 134 mmol/L (137-145); Total Bilirubin 0.8 mg/dL (0.2-1.3); Total Protein 6.2 g/dL (6.3-8.2)
[2023-04-19] MEDS ORDERED: TORSEMIDE 20 MG TAB PO SCH (09:00)
[2023-04-19] MEDS: MIDODRINE 5 MG TAB PO PRN ×2 (09:58→17:56)
[2023-04-19] MEDS: carvediloL 6.25 MG TAB PO SCH ×2 (10:03→10:04)
[2023-04-19] MEDS: carvediloL 3.125 MG TAB PO SCH ×2 (10:14→17:33)
--- NOTE | 2023-04-19 10:16 | P.PN ---
Subjective Patient is resting comfortably in bed. No respiratory distress no chest discomfort no dizziness or lightheadedness On examination blood pressure is 130/36. His mercury repeat blood pressure 84/46 mmHg chest starting dialysis Afebrile 97.7F Heart sounds S1-S2 are normal no murmurs Lungs sounds are clear No JVD Orthopnea Impression Anterior wall LA status post coronary stenting to the LAD and diagonal vessel ST elevations persist on the twelve-lead EKG V2-V6 consistent with anterior aneurysm Yesterday he was experiencing chest discomfort post stenting which has not resolved completely His blood pressure is low normal and he is a dialysis patient Will hold on her chest medications on the days of dialysis as needed depending upon any drop in blood pressure Continue statins continue dual antiplatelet therapy continue beta blockers Objective - Vital Signs Vital signs: Vital Signs Temp 97.7 F 04/19/23 08:00 Pulse 79 04/19/23 10:00 Resp 16 04/19/23 10:00 BP 88/44 04/19/23 10:00 Pulse Ox 100 04/19/23 10:00 FiO2 Intake & Output 04/18/23 04/19/23 04/19/23 18:59 06:59 18:59 Intake Total 420 160 250 Output Total 0 35 2 Balance 420 125 248 Weight 124.738 kg 128.7 kg Intake: IV 160 30 10 Invasive Line 1 10 30 10 Intake, IV Titration 100 Amount Ampicillin-Sulbactam 3 gm 100 In Sodium Chloride 0.9% 100 ml @ 200 mls/hr IVPB Q12HR [facility] Rx#:[id number] Oral 260 30 240 Output: Urine 0 35 2 Other: Voiding Method Urinal - Labs CBC & Chem 7: 04/19/23 07:39 04/19/23 07:39 Labs: Abnormal Lab Results - Last 24 Hours (Table) 04/18/23 04/18/23 04/18/23 Range/Units 13:55 13:55 13:55 WBC 12.7 H (3.8-10.6) k/uL RBC 3.49 L (4.30-5.90) m/uL Hgb 11.7 L (13.0-17.5) gm/dL Hct 34.7 L (39.0-53.0) % MCV (80.0-100.0) fL Plt Count 146 L (150-450) k/uL Neutrophils # 10.2 H (1.3-7.7) k/uL Sodium 133 L (137-145) mmol/L Chloride 92 L (98-107) mmol/L Carbon Dioxide 31 H (22-30) mmol/L BUN 50 H (9-20) mg/dL Creatinine 4.96 H (0.66-1.25) mg/dL Glucose 126 H (74-99) mg/dL POC Glucose (mg/dL) (70-110) mg/dL Hemoglobin A1c (<=6.0) % AST (17-59) U/L Troponin I 4.050 H* (0.000-0.034) ng/mL Total Protein (6.3-8.2) g/dL Albumin (3.5-5.0) g/dL 04/18/23 04/18/23 04/18/23 Range/Units 13:55 15:59 17:23 WBC (3.8-10.6) k/uL RBC (4.30-5.90) m/uL Hgb (13.0-17.5) gm/dL Hct (39.0-53.0) % MCV (80.0-100.0) fL Plt Count (150-450) k/uL Neutrophils # (1.3-7.7) k/uL Sodium (137-145) mmol/L Chloride (98-107) mmol/L Carbon Dioxide (22-30) mmol/L BUN (9-20) mg/dL Creatinine (0.66-1.25) mg/dL Glucose (74-99) mg/dL POC Glucose (mg/dL) 150 H 148 H (70-110) mg/dL Hemoglobin A1c 6.4 H (<=6.0) % AST (17-59) U/L Troponin I (0.000-0.034) ng/mL Total Protein (6.3-8.2) g/dL Albumin (3.5-5.0) g/dL 04/18/23 04/19/23 04/19/23 Range/Units 20:30 07:39 07:39 WBC (3.8-10.6) k/uL RBC 3.21 L (4.30-5.90) m/uL Hgb 10.7 L (13.0-17.5) gm/dL Hct 32.4 L (39.0-53.0) % MCV 100.8 H (80.0-100.0) fL Plt Count 130 L (150-450) k/uL Neutrophils # (1.3-7.7) k/uL Sodium 134 L (137-145) mmol/L Chloride 91 L (98-107) mmol/L Carbon Dioxide (22-30) mmol/L BUN 56 H (9-20) mg/dL Creatinine 6.09 H (0.66-1.25) mg/dL Glucose 110 H (74-99) mg/dL POC Glucose (mg/dL) 232 H (70-110) mg/dL Hemoglobin A1c (<=6.0) % AST 111 H (17-59) U/L Troponin I (0.000-0.034) ng/mL Total Protein 6.2 L (6.3-8.2) g/dL Albumin 3.2 L (3.5-5.0) g/dL
--- NOTE | 2023-04-19 10:37 | CA ---
Transthoracic Echo Report Name: Lan Tillman Age: 62 Gender: M : 1960 Exam Date: 04/19/2023 07:40 Exam Location: [facility] Ht (in): 71 Wt (lb): 275 Ordering Physician: Florinda Amaro Attending/Referring Phys: [id number], Sondra Dependency Case Manager Sharita Navarro, LIBORIO Procedure CPT: Indications: CP, STEMI Cardiac Hx: CAD, DM, ME, Technical Quality: Poor Contrast 1: Lumason Total Dose (mL): 3 Contrast 2: Total Dose (mL): MEASUREMENTS (Male / Female) Normal Values 2D ECHO LV Diastolic Diameter PLAX 6.5 cm 4.2 - 5.9 / 3.9 - 5.3 cm LV Systolic Diameter PLAX 4.8 cm IVS Diastolic Thickness 1.5 cm 0.6 - 1.0 / 0.6 - 0.9 cm LVPW Diastolic Thickness 1.5 cm 0.6 - 1.0 / 0.6 - 0.9 cm LV Relative Wall Thickness 0.5 RV Internal Dim ED PLAX 4.4 cm LVOT Diameter 2.3 cm LA Systolic Diameter LX 4.7 cm 3.0 - 4.0 / 2.7 - 3.8 cm LV Diastolic Volume MOD BP 134.3 cm??? 67 - 155 / 56 - 104 cm??? LV Systolic Volume MOD BP 85.1 cm??? 22 - 58 / 19 - 49 cm??? LV Ejection Fraction MOD BP 36.6 % >= 55 % LV Cardiac Index MOD BP 1484.5 cm???/min???m??? LV Diastolic Volume MOD 4C 151.4 cm??? LV Systolic Volume MOD 4C 84.2 cm??? LV Ejection Fraction MOD 4C 44.4 % LV Cardiac Index MOD 4C 2028.4 cm???/min???m??? LV Diastolic Length 4C 8.3 cm LV Systolic Length 4C 8.1 cm LV Diastolic Volume MOD 2C 117.3 cm??? LV Systolic Volume MOD 2C 86.0 cm??? LV Ejection Fraction MOD 2C 26.7 % LV Cardiac Index MOD 2C 943.9 cm???/min???m??? LV Diastolic Length 2C 7.9 cm LV Systolic Length 2C 8.2 cm LA Volume 87.8 cm??? 18 - 58 / 22 - 52 cm??? M-MODE LV Diastolic Diameter MM 7.3 cm 4.2 - 5.9 / 3.9 - 5.3 cm LV Systolic Diameter MM 6.1 cm LV Cardiac Index MM Teich 2810.0 cm???/min???m??? IVS Diastolic Thickness MM 1.4 cm 0.6 - 1.0 / 0.6 - 0.9 cm LVPW Diastolic Thickness MM 1.7 cm 0.6 - 1.0 / 0.6 - 0.9 cm LV Relative Wall Thickness MM 0.4 0.24 - 0.42 / 0.22 - 0.42 LV Mass Index MM 249.5 g/m??? 49 - 115 / 43 - 95 g/m??? Aortic Root Diameter MM 3.6 cm MV E Point Septal Separation 2.1 cm AV Cusp Separation MM 2.2 cm DOPPLER AV Peak Velocity 207.2 cm/s AV Peak Gradient 17.2 mmHg AV Mean Velocity 146.4 cm/s AV Mean Gradient 9.6 mmHg AV Velocity Time Integral 45.6 cm LVOT Peak Velocity 92.2 cm/s LVOT Peak Gradient 3.4 mmHg AV Area Cont Eq pk 1.9 cm??? MV Peak Velocity 160.3 cm/s MV Peak Gradient 10.3 mmHg MV Mean Velocity 90.5 cm/s MV Mean Gradient 3.9 mmHg MV Velocity Time Integral 42.2 cm MV Area PHT 3.6 cm??? Mitral E Point Velocity 153.5 cm/s Mitral A Point Velocity 74.6 cm/s Mitral E to A Ratio 2.1 MV Deceleration Time 208.8 ms TR Peak Velocity 260.7 cm/s TR Peak Gradient 27.2 mmHg Right Ventricular Systolic Press 31.1 mmHg FINDINGS Left Ventricle Left ventricular ejection fraction is estimated at 25%. Severely increased left ventricular mass. Moderately increased septal wall thickness. Severely increased posterior wall thickness. Moderately increased left ventricular diastolic diameter. Severely increased left ventricular systolic volume. Mildly increased left ventricular relative wall thickness. Moderate to severely decreased left ventricular ejection fraction. There is akinesia of the mid to distal septum and adjoining anteroapical lateral wall as well as the inferoapical wall Right Ventricle Severe right ventricular dilatation. Right ventricular systolic pressure within normal limits. Right Atrium Normal right atrial size. Left Atrium Mildly increased left atrial diameter. Severely increased left atrial volume. Mildly increased left atrial area. Mitral Valve Mitral valve thickened. Moderate mitral annular calcification. [id number] mitral regurgitation. Aortic Valve Aortic valve sclerosis. Mild aortic stenosis with a peak gradient of 17 mmHg and a mean gradient of 10 mmHg. Tricuspid Valve Structurally normal tricuspid valve. Mild tricuspid regurgitation. Pulmonic Valve Structurally normal pulmonic valve. No pulmonic regurgitation. Pericardium Normal pericardium. No pericardial effusion. Aorta Normal size aortic root and proximal ascending aorta. CONCLUSIONS Ischemic cardiomyopathy with severe hypokinesia involving the mid to distal septum and adjoining anteroapical lateral wall as well as the inferoapical wall estimated ejection fraction is 25%. There is moderate mitral regurgitation and mild tricuspid regurgitation. Mild increased velocity across aortic valve no significant stenosis. No pericardial effusion. No pulmonary hypertension Previewed by: Dr. Lorene Sainz MD (Electronically Signed) Final Date: 19 April 2023 10:37
--- NOTE | 2023-04-19 11:06 | P.NPCON ---
History of Present Illness - Reason for Consult end stage renal disease - History of Present Illness Reason for consultation: End-stage renal disease History of present illness: Patient is a 62-year-old male seen in renal consultation for end-stage renal disease. He is maintained on hemodialysis Tuesday schedule via left upper extremity AV fistula. Patient states he developed chest pressure with radiation to his left arm. He subsequently came to the hospital and was diagnosed with acute myocardial infarction and underwent coronary stenting to the LAD and circumflex. Currently he's tolerating dialysis and denies any chest pain or shortness of breath. No fever or chills. No vomiting or diarrhea. Patient does have long-standing history of diabetes. Blood pressure is in the lower side and he just received a dose of midodrine. He is also on antihypertensives but are being held due to low blood pressure. Vital signs are stable. Blood pressure on the lower side. General: No acute distress. HEENT: Head exam is unremarkable. LUNGS: No audible rhonchi or wheezes. HEART: Rate and Rhythm are regular. ABDOMEN: Soft, nontender. EXTREMITITES: No edema. Finger amputations noted. Past Medical History Past Medical History: Coronary Artery Disease (CAD), Cancer, Heart Failure, CVA/TIA, Diabetes Mellitus, Eye Disorder, Hypertension, Myocardial Infarction (WA), Renal Disease, Sleep Apnea/CPAP/BIPAP, Thyroid Disorder Additional Past Medical History / Comment(s): unhealing sore left index finger, neuropathy bilateral lower extremity/feet, bilateral eye diabetic retinopathy/poor vision/multiple injections, ESRD with hemodialysis T//SAT from 6:15 to 11:00, anemia, "mini strokes" x2, AVANI with CPap use, occasional low back pain/disc disease, gout, hypothyroid Last Myocardial Infarction Date:: 10/20/20 History of Any Multi-Drug Resistant Organisms: MRSA Date of last positivie culture/infection: 12/10/21 MDRO Source:: Finger-Right 5th Past Surgical History: Adenoidectomy, Bariatric Surgery, Cholecystectomy, Heart Catheterization, Heart Catheterization With Stent, Orthopedic Surgery, Tonsillectomy Additional Past Surgical History / Comment(s): 10/22/20 PCI with stents x2, lap banding, FX of right ankle repair pins / plate, fistual lt arm jul 2018, lt shoulder sx (d/t separation), colonoscopies, bilateral cataract removals/lens implants. LIF surgery 08/11/21 R LEG stacey placed January 2023 Past Anesthesia/Blood Transfusion Reactions: Motion Sickness Additional Past Anesthesia/Blood Transfusion Reaction / Comment(s): CLAUSTERPHOBIA Date of Last Stent Placement:: 10/22/20 Past Psychological History: Anxiety Smoking Status: Former smoker - Past Family History Mother History Unknown: Yes Family Medical History: Coronary Artery Disease (CAD), Myocardial Infarction (WA) Additional Family Medical History / Comment(s): Mother at age 58 from multiple sclerosis Father Family Medical History: CVA/TIA, Myocardial Infarction (WA) Additional Family Medical History / Comment(s): Father had history of WA and CVA followed by a second [place] and CVA and at age 65. Brother(s) Additional Family Medical History / Comment(s): . Medications and Allergies Home Medications Medication Instructions Recorded Confirmed Type Levothyroxine Sodium 100 mcg PO DAILY 07/06/17 04/18/23 History Torsemide [Demadex] 40 mg PO DAILY 09/10/19 04/18/23 History Bryanna-Olimpia 1 tab PO DAILY 10/20/20 04/18/23 History HYDROcodone/APAP 10-325MG [Industry 1 tab PO Q6H 11/24/20 04/18/23 History 10-325] Insulin Regular, Human [Novolin R 15 unit SQ ACHS PRN 11/24/20 04/18/23 History Flexpen] Nitroglycerin Sl Tabs [Nitrostat] 0.4 mg SL Q5M PRN 03/11/21 04/18/23 History Atorvastatin [Lipitor] 40 mg PO HS #30 tab 06/15/22 04/18/23 Rx carvediloL [Coreg] 6.25 mg PO BID-W/MEALS #60 tab 08/09/22 04/18/23 Rx lisinopriL [Zestril] 5 mg PO HS 10/07/22 04/18/23 History FLUoxetine HCL [PROzac] 40 mg PO DAILY 30 Days #30 cap 10/16/22 04/18/23 Rx Apixaban [Eliquis] 2.5 mg PO BID 02/16/23 04/18/23 History Acetaminophen Tab [Tylenol] 650 mg PO Q6HR PRN tab 02/21/23 04/18/23 Rx Insulin Detemir (Levemir) [Levemir] 20 unit SQ HS 30 Days #5 each 02/21/23 04/18/23 Rx metroNIDAZOLE [Flagyl] 500 mg PO TID #42 tab 02/21/23 04/18/23 Rx Calcium Carbonate [Tums] 1,000 mg PO AC-TID 04/18/23 04/18/23 History Cephalexin [Keflex] 500 mg PO Q12HR 04/18/23 04/18/23 History methocarbamoL [Robaxin] 500 - 1,000 mg PO QID PRN 04/18/23 04/18/23 History Allergies Allergy/AdvReac Type Severity Reaction Status Date / Time No Known Allergies Allergy Verified 04/18/23 17:46 Physical Exam Vitals: Vital Signs Temp Pulse Resp BP Pulse Ox 04/19/23 10:00 79 16 88/44 100 04/19/23 09:00 80 16 84/46 04/19/23 08:00 97.7 F 78 20 84/46 98 04/19/23 07:00 78 18 113/36 96 04/19/23 06:30 79 31 H 113/36 100 04/19/23 06:00 78 14 114/38 100 04/19/23 05:30 79 23 99 04/19/23 05:00 71 18 99/30 99 04/19/23 04:30 79 14 99/30 100 04/19/23 04:00 97.6 F 84 13 92/27 94 L 04/19/23 03:30 78 11 L 92/27 100 04/19/23 03:00 77 16 104/69 100 04/19/23 02:30 78 14 104/69 97 04/19/23 02:00 85 11 L 104/42 95 04/19/23 01:30 78 104/42 98 04/19/23 01:00 82 18 96 04/19/23 00:30 80 17 97 04/19/23 00:00 83 12 109/42 97 04/18/23 23:36 79 18 96 04/18/23 23:30 77 17 94/53 97 04/18/23 23:00 81 12 97/38 97 04/18/23 22:30 81 16 99 04/18/23 22:15 82 20 98 04/18/23 22:00 83 10 L 96 04/18/23 21:45 85 13 125/68 98 04/18/23 21:30 88 27 H 117/70 98 04/18/23 21:15 86 110/47 99 04/18/23 21:00 86 20 110/52 99 04/18/23 20:45 85 18 112/79 97 04/18/23 20:30 86 12 98 04/18/23 20:15 91 110/93 99 04/18/23 20:00 97.9 F 89 18 92/69 98 04/18/23 19:00 85 18 103/55 100 04/18/23 18:45 86 18 100 04/18/23 18:30 89 12 105/93 99 04/18/23 18:15 93 15 84/63 99 04/18/23 18:00 93 14 118/68 96 04/18/23 17:45 91 12 99/60 100 04/18/23 17:30 93 53 H 92/61 100 04/18/23 17:15 95 12 108/52 97 04/18/23 17:00 91 12 117/65 99 04/18/23 16:45 90 12 127/52 98 04/18/23 16:30 89 12 125/40 100 04/18/23 16:15 88 12 113/47 99 04/18/23 16:00 89 14 107/57 100 04/18/23 15:57 97.7 F 16 90 L 04/18/23 15:55 100 04/18/23 14:08 88 18 118/70 96 04/18/23 13:33 98.3 F 88 16 147/91 99 Intake and Output 04/18/23 04/19/23 04/19/23 22:59 06:59 14:59 Intake Total 410 20 250 Output Total 0 35 2 Balance 410 -15 248 Intake: IV 20 20 10 Invasive Line 1 20 20 10 Intake, IV Titration 100 Amount Ampicillin-Sulbactam 3 gm 100 In Sodium Chloride 0.9% 100 ml @ 200 mls/hr IVPB Q12HR [facility] Rx#:[id number] Oral 290 240 Output: Urine 0 35 2 Other: Voiding Method Urinal Urinal Weight 128.7 kg Results - Lab Results Most recent lab results Calcium 9.4 mg/dL (8.4-10.2) 04/19/23 07:39 Magnesium 2.1 mg/dL (1.6-2.3) 04/19/23 07:39 04/19/23 07:39 04/19/23 07:39 Assessment and Plan Plan: Assessment: 1. End-stage renal disease maintained on hemodialysis on Tuesday schedule via left upper extremity AV fistula. 2. Acute anterior wall WA status post LAD and circumflex stenting. 3. Diabetes mellitus. 4. Chronic kidney disease mineral bone disease. 5. Hypotension maintained on midodrine. 6. Left hand osteomyelitis with multiple limitations on antibiotics. Plan: Currently seen while undergoing hemodialysis. Next treatment on . Add midodrine as needed for blood pressure below 110/60. Check phosphorus level. Antihypertensives to be held for systolic blood pressure less than 100. Thank you for the consultation. I will continue to follow the patient with you during his hospital stay.
[2023-04-19 11:29] VITALS: BMI 39.5
[2023-04-19 11:44] LABS: Glucose,Whole Blood 180 mg/dL (70-110)
--- NOTE | 2023-04-19 12:42 | P.HPIM ---
History of Present Illness H&P Date: 04/19/23 History of present illness; a 62-year-old gentleman with past medical history si gnificant for hypertension, hyperlipidemia, coronary artery disease with previous stenting of the RCA in 2020, paroxysmal atrial fibrillation, pericardial effusion with tamponade status post pericardial window in 2020, end- stage renal disease on hemodialysis, and amputations of fingers on his left hand secondary to osteomyelitis presented to the ER for chest pain. Chest pain started around noon, was left-sided, radiating to left arm. Denies any shortness of breath as well as chest pain. Denies any nausea or vomiting. This chest pain was similar to previous episodes of heart attack. Patient became concerned and came to the ER Initial lab work done in the ER showed the previous 2.7, hemoglobin 11.7, platelet count 146, sodium 1:30, potassium 4.4, BUN 50, creatinine 4.96 EKG done in the ER showed ST segment elevation in V2 to V6 and lead 2 and 3. Patient was evaluated by cardiology in the ER and was taken for emergent cardiac cath REVIEW OF SYSTEMS: CONSTITUTIONAL: No fever, no malaise, no fatigue. HEENT: No recent visual problems or hearing problems. Denied any sore throat. CARDIOVASCULAR: As mentioned above PULMONARY: No shortness of breath, no cough, no hemoptysis. GASTROINTESTINAL: No diarrhea, no nausea, no vomiting, no abdominal pain. NEUROLOGICAL: No headaches, no weakness, no numbness. HEMATOLOGICAL: Denies any bleeding or petechiae. GENITOURINARY: Denies any burning micturition, frequency, or urgency. MUSCULOSKELETAL/RHEUMATOLOGICAL: Denies any joint pain, swelling, or any muscle pain. ENDOCRINE: Denies any polyuria or polydipsia. The rest of the 14-point review of systems is negative. PHYSICAL EXAMINATION: GENERAL: The patient is alert and oriented x3, not in any acute distress. Well developed, well nourished. HEENT: Pupils are round and equally reacting to light. EOMI. No scleral icterus. No conjunctival pallor. Normocephalic, atraumatic. No pharyngeal erythema. No thyromegaly. CARDIOVASCULAR: S1 and S2 present. No murmurs, rubs, or gallops. PULMONARY: Chest is clear to auscultation, no wheezing or crackles. ABDOMEN: Soft, nontender, nondistended, normoactive bowel sounds. No palpable organomegaly. MUSCULOSKELETAL: No joint swelling or deformity. EXTREMITIES: No cyanosis, clubbing, or pedal edema. Right hand finger amputations seen NEUROLOGICAL: Gross neurological examination did not reveal any focal deficits. SKIN: No rashes. Assessment and plan STEMI Coronary artery disease with previous stenting of the RCA, 2020 Paroxysmal atrial fibrillation End-stage renal disease on hemodialysis Hypertension Hyperlipidemia History of pericardial effusion with tamponade, status post pericardial window, 2020 History of CVA History of amputations of his fingers on left hand secondary to osteomyelitis Monitor vital signs Monitor CBC Monitor CMP Continue telemetry monitoring Trend troponin Follow-up on 2-D echo Status post cardiac cath showing Diffuse mild CAD and significant obstructive 90% mid LAD, 100% mid to distal LAD, 80% diagonal 1 stenosis, S/p PCI mid LAD 3.25 x 15mm Xience, post dilated with a 4.0 NC balloon, PCI diagonal 1 with a 2.25 x 12mm Xience TORIN, PCI mid to distal LAD with a 3.0 x 38mm Xience TORIN Continue aspirin, brilinta Consult nephrology for mental status is Consult ID for history of osteomyelitis Follow-up on cardiology recommendations Labs and medication were reviewed.. Continue same treatment. Continue with symptomatic treatment. Resume home medication. Monitor labs and vitals. DVT and GI prophylaxis. Further recommendations as per clinical course of the patient Dictation was produced using [employer] dictation software. please excuse any grammatical, word or spelling errors. Past Medical History Past Medical History: Coronary Artery Disease (CAD), Cancer, Heart Failure, CVA/TIA, Diabetes Mellitus, Eye Disorder, Hypertension, Myocardial Infarction ([place]), Renal Disease, Sleep Apnea/CPAP/BIPAP, Thyroid Disorder Additional Past Medical History / Comment(s): unhealing sore left index finger, neuropathy bilateral lower extremity/feet, bilateral eye diabetic retinopathy/poor vision/multiple injections, ESRD with hemodialysis T/TH/SAT from 6:15 to 11:00, anemia, "mini strokes" x2, AVANI with CPap use, occasional low back pain/disc disease, gout, hypothyroid Last Myocardial Infarction Date:: 10/20/20 History of Any Multi-Drug Resistant Organisms: MRSA Date of last positivie culture/infection: 12/10/21 MDRO Source:: Finger-Right 5th Past Surgical History: Adenoidectomy, Bariatric Surgery, Cholecystectomy, Heart Catheterization, Heart Catheterization With Stent, Orthopedic Surgery, Tonsillectomy Additional Past Surgical History / Comment(s): 10/22/20 PCI with stents x2, lap banding, FX of right ankle repair pins / plate, fistual lt arm jul 2018, lt shou lder sx (d/t separation), colonoscopies, bilateral cataract removals/lens implants. LIF surgery 08/11/21 R LEG stacey placed January 2023 Past Anesthesia/Blood Transfusion Reactions: Motion Sickness Additional Past Anesthesia/Blood Transfusion Reaction / Comment(s): CLAUSTERPHOBIA Date of Last Stent Placement:: 10/22/20 Past Psychological History: Anxiety Smoking Status: Former smoker - Past Family History Mother History Unknown: Yes Family Medical History: Coronary Artery Disease (CAD), Myocardial Infarction ([place]) Additional Family Medical History / Comment(s): Mother at age 58 from multiple sclerosis Father Family Medical History: CVA/TIA, Myocardial Infarction ([place]) Additional Family Medical History / Comment(s): Father had history of [place] and CVA followed by a second [place] and CVA and at age 65. Brother(s) Additional Family Medical History / Comment(s): . Medications and Allergies Home Medications Medication Instructions Recorded Confirmed Type Levothyroxine Sodium 100 mcg PO DAILY 07/06/17 04/18/23 History Torsemide [Demadex] 40 mg PO DAILY 09/10/19 04/18/23 History Bryanna-Olimpia 1 tab PO DAILY 10/20/20 04/18/23 History HYDROcodone/APAP 10-325MG [[place] 1 tab PO Q6H 11/24/20 04/18/23 History 10-325] Insulin Regular, Human [Novolin R 15 unit SQ ACHS PRN 11/24/20 04/18/23 History Flexpen] Nitroglycerin Sl Tabs [Nitrostat] 0.4 mg SL Q5M PRN 03/11/21 04/18/23 History Atorvastatin [Lipitor] 40 mg PO HS #30 tab 06/15/22 04/18/23 Rx carvediloL [Coreg] 6.25 mg PO BID-W/MEALS #60 tab 08/09/22 04/18/23 Rx lisinopriL [Zestril] 5 mg PO HS 10/07/22 04/18/23 History FLUoxetine HCL [PROzac] 40 mg PO DAILY 30 Days #30 cap 10/16/22 04/18/23 Rx Apixaban [Eliquis] 2.5 mg PO BID 02/16/23 04/18/23 History Acetaminophen Tab [Tylenol] 650 mg PO Q6HR PRN tab 02/21/23 04/18/23 Rx Insulin Detemir (Levemir) [Levemir] 20 unit SQ HS 30 Days #5 each 02/21/23 04/18/23 Rx metroNIDAZOLE [Flagyl] 500 mg PO TID #42 tab 02/21/23 04/18/23 Rx Calcium Carbonate [Tums] 1,000 mg PO AC-TID 04/18/23 04/18/23 History Cephalexin [Keflex] 500 mg PO Q12HR 04/18/23 04/18/23 History methocarbamoL [Robaxin] 500 - 1,000 mg PO QID PRN 04/18/23 04/18/23 History Allergies Allergy/AdvReac Type Severity Reaction Status Date / Time No Known Allergies Allergy Verified 04/18/23 17:46 Physical Exam Vitals: Vital Signs Temp Pulse Resp BP Pulse Ox 04/19/23 08:00 97.7 F 78 20 84/46 98 04/19/23 07:00 78 18 113/36 96 04/19/23 06:30 79 31 H 113/36 100 04/19/23 06:00 78 14 114/38 100 04/19/23 05:30 79 23 99 04/19/23 05:00 71 18 99/30 99 04/19/23 04:30 79 14 99/30 100 04/19/23 04:00 97.6 F 84 13 92/27 94 L 04/19/23 03:30 78 11 L 92/27 100 04/19/23 03:00 77 16 104/69 100 04/19/23 02:30 78 14 104/69 97 04/19/23 02:00 85 11 L 104/42 95 04/19/23 01:30 78 104/42 98 04/19/23 01:00 82 18 96 04/19/23 00:30 80 17 97 04/19/23 00:00 83 12 109/42 97 04/18/23 23:36 79 18 96 04/18/23 23:30 77 17 94/53 97 04/18/23 23:00 81 12 97/38 97 04/18/23 22:30 81 16 99 04/18/23 22:15 82 20 98 04/18/23 22:00 83 10 L 96 04/18/23 21:45 85 13 125/68 98 04/18/23 21:30 88 27 H 117/70 98 04/18/23 21:15 86 110/47 99 04/18/23 21:00 86 20 110/52 99 04/18/23 20:45 85 18 112/79 97 04/18/23 20:30 86 12 98 04/18/23 20:15 91 110/93 99 04/18/23 20:00 97.9 F 89 18 92/69 98 04/18/23 19:00 85 18 103/55 100 04/18/23 18:45 86 18 100 04/18/23 18:30 89 12 105/93 99 04/18/23 18:15 93 15 84/63 99 04/18/23 18:00 93 14 118/68 96 04/18/23 17:45 91 12 99/60 100 04/18/23 17:30 93 53 H 92/61 100 04/18/23 17:15 95 12 108/52 97 04/18/23 17:00 91 12 117/65 99 04/18/23 16:45 90 12 127/52 98 04/18/23 16:30 89 12 125/40 100 04/18/23 16:15 88 12 113/47 99 04/18/23 16:00 89 14 107/57 100 04/18/23 15:57 97.7 F 16 90 L 04/18/23 15:55 100 04/18/23 14:08 88 18 118/70 96 04/18/23 13:33 98.3 F 88 16 147/91 99 Intake and Output 04/18/23 04/19/23 04/19/23 22:59 06:59 14:59 Intake Total 410 20 250 Output Total 0 35 0 Balance 410 -15 250 Intake: IV 20 20 10 Invasive Line 1 20 20 10 Intake, IV Titration 100 Amount Ampicillin-Sulbactam 3 gm 100 In Sodium Chloride 0.9% 100 ml @ 200 mls/hr IVPB Q12HR [facility] Rx#:[id number] Oral 290 240 Output: Urine 0 35 0 Other: Voiding Method Urinal Urinal Weight 128.7 kg Results CBC & Chem 7: 04/19/23 07:39 04/19/23 07:39 Labs: Abnormal Lab Results - Last 24 Hours (Table) 04/18/23 04/18/23 04/18/23 Range/Units 13:55 13:55 13:55 WBC 12.7 H (3.8-10.6) k/uL RBC 3.49 L (4.30-5.90) m/uL Hgb 11.7 L (13.0-17.5) gm/dL Hct 34.7 L (39.0-53.0) % MCV (80.0-100.0) fL Plt Count 146 L (150-450) k/uL Neutrophils # 10.2 H (1.3-7.7) k/uL Sodium 133 L (137-145) mmol/L Chloride 92 L (98-107) mmol/L Carbon Dioxide 31 H (22-30) mmol/L BUN 50 H (9-20) mg/dL Creatinine 4.96 H (0.66-1.25) mg/dL Glucose 126 H (74-99) mg/dL POC Glucose (mg/dL) (70-110) mg/dL Hemoglobin A1c (<=6.0) % AST (17-59) U/L Troponin I 4.050 H* (0.000-0.034) ng/mL Total Protein (6.3-8.2) g/dL Albumin (3.5-5.0) g/dL 04/18/23 04/18/23 04/18/23 Range/Units 13:55 15:59 17:23 WBC (3.8-10.6) k/uL RBC (4.30-5.90) m/uL Hgb (13.0-17.5) gm/dL Hct (39.0-53.0) % MCV (80.0-100.0) fL Plt Count (150-450) k/uL Neutrophils # (1.3-7.7) k/uL Sodium (137-145) mmol/L Chloride (98-107) mmol/L Carbon Dioxide (22-30) mmol/L BUN (9-20) mg/dL Creatinine (0.66-1.25) mg/dL Glucose (74-99) mg/dL POC Glucose (mg/dL) 150 H 148 H (70-110) mg/dL Hemoglobin A1c 6.4 H (<=6.0) % AST (17-59) U/L Troponin I (0.000-0.034) ng/mL Total Protein (6.3-8.2) g/dL Albumin (3.5-5.0) g/dL 04/18/23 04/19/23 04/19/23 Range/Units 20:30 07:39 07:39 WBC (3.8-10.6) k/uL RBC 3.21 L (4.30-5.90) m/uL Hgb 10.7 L (13.0-17.5) gm/dL Hct 32.4 L (39.0-53.0) % MCV 100.8 H (80.0-100.0) fL Plt Count 130 L (150-450) k/uL Neutrophils # (1.3-7.7) k/uL Sodium 134 L (137-145) mmol/L Chloride 91 L (98-107) mmol/L Carbon Dioxide (22-30) mmol/L BUN 56 H (9-20) mg/dL Creatinine 6.09 H (0.66-1.25) mg/dL Glucose 110 H (74-99) mg/dL POC Glucose (mg/dL) 232 H (70-110) mg/dL Hemoglobin A1c (<=6.0) % AST 111 H (17-59) U/L Troponin I (0.000-0.034) ng/mL Total Protein 6.2 L (6.3-8.2) g/dL Albumin 3.2 L (3.5-5.0) g/dL Thrombosis Risk Factor Assmnt - Choose All That Apply Each Factor Represents 1 point: Acute [place], Obesity (BMI >25) Other Risk Factors: Yes Each Risk Factor Represents 2 Points: Age 61-74 years Other congenital or acquired thrombophilia - If yes, enter type in comment: No Thrombosis Risk Factor Assessment Total Risk Factor Score: 4 Thrombosis Risk Factor Assessment Level: Moderate Risk
[2023-04-19] MEDS: PANTOPRAZOLE 40 MG/10 ML VIAL IVP SCH (13:33)
[2023-04-19] MEDS: FLUoxetine HCL 20 MG CAP PO SCH (13:34)
[2023-04-19] MEDS: APIXABAN 2.5 MG TABLET PO SCH ×2 (13:34→20:59)
[2023-04-19] MEDS: ASPIRIN 81 MG PO SCH (13:34)
[2023-04-19] MEDS: TICAGRELOR 90 MG TAB PO SCH ×2 (13:34→20:56)
[2023-04-19] MEDS: NYSTATIN 100,000 UNIT/GM POWD 15 GM TOPICAL SCH ×2 (13:35→21:00)
[2023-04-19] MEDS: ACETAMINOPHEN TAB 325 MG TAB PO PRN (13:40)
[2023-04-19] MEDS: FOLIC ACID-VIT B COMPLEX-VIT C 1 CAP PO SCH (14:26)
[2023-04-19 17:26] LABS: Glucose,Whole Blood 226 mg/dL (70-110)
[2023-04-19 20:38] LABS: Glucose,Whole Blood 167 mg/dL (70-110)
[2023-04-19] MEDS: INSULIN DETEMIR (LEVEMIR) 100 UNIT/ML SYR SQ SCH (20:56)
[2023-04-19] MEDS: MELATONIN 1 MG TAB PO SCH (20:58)
[2023-04-19] MEDS: ATORVASTATIN 80 MG TAB PO SCH (20:58)
[2023-04-19] MEDS: AMPICILLIN-SULBACTAM 3 GM in SODIUM CHLORIDE 0.9% 100 ML IVPB SCH (20:59)
[2023-04-20] MEDS: LORazepam 1 MG TAB PO PRN ×2 (00:29→22:40)
[2023-04-20] MEDS: HYDROcodone/APAP 10-325MG 1 EACH TAB PO PRN ×4 (01:59→22:42)
[2023-04-20 04:36] LABS: Basophils # (A) 0.1 k/uL (0-0.2); Basophils % (A) 1 %; Eosinophils # (A) 0.2 k/uL (0-0.7); Eosinophils % (A) 2 %; HCT 31.3 % (39.0-53.0); HGB 10.5 gm/dL (13.0-17.5); Lymphocytes # (A) 1.3 k/uL (1.0-4.8); Lymphocytes % (A) 12 %; MCH 33.8 pg (25.0-35.0); MCHC 33.7 g/dL (31.0-37.0); MCV 100.5 fL (80.0-100.0); Macrocytosis Slight; Monocytes # (A) 0.5 k/uL (0-1.0); Monocytes % (A) 5 %; Neutrophils # (A) 8.2 k/uL (1.3-7.7); Neutrophils % (A) 79 %; Platelet Count 151 k/uL (150-450); RBC 3.11 m/uL (4.30-5.90); RDW 14.8 % (11.5-15.5); WBC 10.5 k/uL (3.8-10.6)
[2023-04-20 04:44] LABS: African American GFR (CKD) 16 (>60 ml/min/1.73 sqM); Anion Gap 10 mmol/L; Blood Urea Nitrogen 33 mg/dL (9-20); Calcium 8.6 mg/dL (8.4-10.2); Carbon Dioxide 29 mmol/L (22-30); Chloride 95 mmol/L (98-107); Glucose 74 mg/dL (74-99); Non-African American GFR(CKD) 14 (>60 ml/min/1.73 sqM); Potassium 4.3 mmol/L (3.5-5.1); Sodium 134 mmol/L (137-145)
[2023-04-20 06:30] LABS: Glucose,Whole Blood 72 mg/dL (70-110)
[2023-04-20] MEDS: INSULIN ASPART (NovoLOG) 100 UNIT/ML VIAL SQ SCH ×4 (06:32→22:41)
[2023-04-20] MEDS: CALCIUM CARBONATE 500 MG CHEWABLE PO SCH ×3 (06:44→22:43)
[2023-04-20] MEDS: LEVOTHYROXINE 100 MCG TAB PO SCH (06:44)
[2023-04-20] MEDS: methocarbamoL 500 MG TAB PO PRN (06:59)
[2023-04-20 07:03] LABS: Glucose,Whole Blood 72 mg/dL (70-110)
[2023-04-20 07:20] LABS: Glucose,Whole Blood 118 mg/dL (70-110)
[2023-04-20] MEDS: TICAGRELOR 90 MG TAB PO SCH ×2 (08:58→22:42)
[2023-04-20] MEDS: APIXABAN 2.5 MG TABLET PO SCH ×2 (08:59→22:43)
[2023-04-20] MEDS: ASPIRIN 81 MG PO SCH (08:59)
[2023-04-20] MEDS: FLUoxetine HCL 20 MG CAP PO SCH (08:59)
[2023-04-20] MEDS: FOLIC ACID-VIT B COMPLEX-VIT C 1 CAP PO SCH ×2 (09:00→09:49)
[2023-04-20] MEDS: NYSTATIN 100,000 UNIT/GM POWD 15 GM TOPICAL SCH ×2 (09:01→22:44)
[2023-04-20] MEDS: PANTOPRAZOLE 40 MG/10 ML VIAL IVP SCH (09:01)
--- NOTE | 2023-04-20 09:39 | P.PN ---
Subjective Progress Note Date: 04/20/23 The patient is a 62-year-old male who follows in the office with Dr. Jimenez. He presented to the hospital with chest discomfort and EKG confirmed anterior myocardial infarction. The patient underwent stenting of the LAD and first diagonal vessel. Echocardiogram shows severe LV dysfunction at 25-30% with moderate MR. The patient was interviewed and examined resting comfortably in bed. He denies any current chest pain or chest pressure. No heart racing or fluttering. No dizziness or lightheadedness. He states he did have an episode of hematuria overnight. He states he struggled starting his anticoagulation in the past. GENERAL: Well-appearing, well-nourished and in no acute distress. NECK: Supple without JVD or thyromegaly. LUNGS: Breath sounds clear to auscultation bilaterally. Respiration equal and unlabored. No wheezes, rales or rhonchi. HEART: Regular rate and rhythm without murmurs, rubs or gallops. S1 and S2 heard. EXTREMITIES: Normal range of motion, no edema. No clubbing or cyanosis. Peripheral pulses intact and strong. TELEMETRY: Sinus rhythm overnight. No arrhythmias LABS: WBC 10.5, hemoglobin 10.5, hematocrit 31.3, platelet 151, sodium 134, potassium 4.3, BUN 33, creatinine 4.33, magnesium 2.0 IMPRESSION: Anterior wall myocardial infarction, STEMI Status post stenting of the LAD and diagonal vessel Ischemic cardiomyopathy, EF 25-30% Moderate mitral regurgitation History of pericardial effusion with tamponade, pericardial window in 2020 History diabetes History of end-stage renal disease, on dialysis PLAN: Continue current medication regimen Continue dual antiplatelet therapy Consider switching to Plavix if patients hematuria worsens They be downgraded to 3 S. I am dictating on behalf of Dr Joel Swain's history/physical and assessment/plan. Objective - Vital Signs Vital signs: Vital Signs Temp 98.7 F 04/20/23 04:00 Pulse 79 04/20/23 07:00 Resp 12 04/20/23 07:00 BP 103/66 04/20/23 07:00 Pulse Ox 98 04/20/23 07:00 FiO2 Intake & Output 04/19/23 04/20/23 04/20/23 18:59 06:59 18:59 Intake Total 1010 180 Output Total 1002 5 0 Balance 8 175 0 Weight 128.7 kg 128.5 kg Intake: IV 30 30 Invasive Line 1 30 30 Intake, IV Titration 100 Amount Ampicillin-Sulbactam 3 gm 100 In Sodium Chloride 0.9% 100 ml @ 200 mls/hr IVPB HS [facility] Rx#:[id number] Oral 480 50 Hemodialysis 500 Output: Urine 52 5 0 Hemodialysis 950 Other: Voiding Method Urinal Urinal # Voids 1 1 # Bowel Movements 0 - Labs CBC & Chem 7: 04/20/23 03:53 04/20/23 03:53 Labs: Abnormal Lab Results - Last 24 Hours (Table) 04/19/23 04/19/23 04/19/23 Range/Units 07:39 11:42 17:25 RBC (4.30-5.90) m/uL Hgb (13.0-17.5) gm/dL Hct (39.0-53.0) % MCV (80.0-100.0) fL Neutrophils # (1.3-7.7) k/uL Sodium (137-145) mmol/L Chloride (98-107) mmol/L BUN (9-20) mg/dL Creatinine (0.66-1.25) mg/dL POC Glucose (mg/dL) 180 H 226 H (70-110) mg/dL Phosphorus 6.2 H (2.5-4.5) mg/dL 04/19/23 04/20/23 04/20/23 Range/Units 20:37 03:53 03:53 RBC 3.11 L (4.30-5.90) m/uL Hgb 10.5 L (13.0-17.5) gm/dL Hct 31.3 L (39.0-53.0) % MCV 100.5 H (80.0-100.0) fL Neutrophils # 8.2 H (1.3-7.7) k/uL Sodium 134 L (137-145) mmol/L Chloride 95 L (98-107) mmol/L BUN 33 H (9-20) mg/dL Creatinine 4.33 H (0.66-1.25) mg/dL POC Glucose (mg/dL) 167 H (70-110) mg/dL Phosphorus (2.5-4.5) mg/dL 04/20/23 Range/Units 07:19 RBC (4.30-5.90) m/uL Hgb (13.0-17.5) gm/dL Hct (39.0-53.0) % MCV (80.0-100.0) fL Neutrophils # (1.3-7.7) k/uL Sodium (137-145) mmol/L Chloride (98-107) mmol/L BUN (9-20) mg/dL Creatinine (0.66-1.25) mg/dL POC Glucose (mg/dL) 118 H (70-110) mg/dL Phosphorus (2.5-4.5) mg/dL
[2023-04-20] MEDS: ONDANSETRON 4 MG/2 ML VIAL IVP PRN (09:55)
[2023-04-20 11:29] LABS: Glucose,Whole Blood 169 mg/dL (70-110)
--- NOTE | 2023-04-20 11:43 | P.PN ---
Subjective Progress Note Date: 04/20/23 62-year-old gentleman with past medical history significant for hypertension, hyperlipidemia, coronary artery disease with previous stenting of the RCA in 2020, paroxysmal atrial fibrillation, pericardial effusion with tamponade status post pericardial window in 2020, end-stage renal disease on hemodialysis, and amputations of fingers on his left hand secondary to osteomyelitis presented to the ER for chest pain. Chest pain started around noon, was left-sided, radiating to left arm. Denies any shortness of breath as well as chest pain. Denies any nausea or vomiting. This chest pain was similar to previous episodes of heart attack. Patient became concerned and came to the ER Initial lab work done in the ER showed the previous 2.7, hemoglobin 11.7, platelet count 146, sodium 1:30, potassium 4.4, BUN 50, creatinine 4.96 EKG done in the ER showed ST segment elevation in V2 to V6 and lead 2 and 3. Patient was evaluated by cardiology in the ER and was taken for emergent cardiac cath 04/20. Patient seen and examined. Patient had one episode of hematuria, repeat urination did not have any blood in it. REVIEW OF SYSTEMS: CONSTITUTIONAL: No fever, no malaise,. CARDIOVASCULAR: No chest pain, no palpitations, no syncope. PULMONARY: No shortness of breath, no cough, GASTROINTESTINAL: No diarrhea, no nausea, no vomiting, no abdominal pain. NEUROLOGICAL: No headaches, no weakness, PHYSICAL EXAMINATION: GENERAL: The patient is alert and oriented x3, not in any acute distress. Well developed, well nourished. HEENT: Pupils are round and equally reacting to light. EOMI. No scleral icterus. No conjunctival pallor. Normocephalic, atraumatic. No pharyngeal erythema. No thyromegaly. CARDIOVASCULAR: S1 and S2 present. No murmurs, rubs, or gallops. PULMONARY: Chest is clear to auscultation, no wheezing or crackles. ABDOMEN: Soft, nontender, nondistended, normoactive bowel sounds. No palpable organomegaly. MUSCULOSKELETAL: No joint swelling or deformity. Finger amputations seen of right hand EXTREMITIES: No cyanosis, clubbing, or pedal edema. NEUROLOGICAL: Gross neurological examination did not reveal any focal deficits. SKIN: No rashes. Assessment and plan Monitor vital signs Monitor CBC Monitor CMP Continue telemetry monitoring Status post cardiac cath showing Diffuse mild CAD and significant obstructive 90% mid LAD, 100% mid to distal LAD, 80% diagonal 1 stenosis, S/p PCI mid LAD 3.25 x 15mm Xience, post dilated with a 4.0 NC balloon, PCI diagonal 1 with a 2.25 x 12mm Xience TORIN, PCI mid to distal LAD with a 3.0 x 38mm Xience TORIN Continue aspirin, brilinta Continue Eliquis Continue current insulin regimen Continue IV Unasyn Follow-up on cardiology recommendations Follow-up on ID recommendations Labs and medication were reviewed.. Continue same treatment. Continue with symptomatic treatment. Resume home medication. Monitor labs and vitals. DVT and GI prophylaxis. Further recommendations as per clinical course of the patient Dictation was produced using [employer] dictation software. please excuse any grammatical, word or spelling errors. Objective - Vital Signs Vital signs: Vital Signs Temp 97.8 F 04/20/23 08:00 Pulse 78 04/20/23 10:00 Resp 22 04/20/23 10:00 BP 102/76 04/20/23 09:00 Pulse Ox 95 04/20/23 09:00 FiO2 Intake & Output 04/19/23 04/20/23 04/20/23 18:59 06:59 18:59 Intake Total 1010 180 Output Total 1002 5 0 Balance 8 175 0 Weight 128.7 kg 128.5 kg Intake: IV 30 30 Invasive Line 1 30 30 Intake, IV Titration 100 Amount Ampicillin-Sulbactam 3 gm 100 In Sodium Chloride 0.9% 100 ml @ 200 mls/hr IVPB HS [facility] Rx#:[id number] Oral 480 50 Hemodialysis 500 Output: Urine 52 5 0 Hemodialysis 950 Other: Voiding Method Urinal Urinal # Voids 1 1 1 # Bowel Movements 0 - Labs CBC & Chem 7: 04/20/23 03:53 04/20/23 03:53 Labs: Abnormal Lab Results - Last 24 Hours (Table) 04/19/23 04/19/23 04/19/23 Range/Units 07:39 11:42 17:25 RBC (4.30-5.90) m/uL Hgb (13.0-17.5) gm/dL Hct (39.0-53.0) % MCV (80.0-100.0) fL Neutrophils # (1.3-7.7) k/uL Sodium (137-145) mmol/L Chloride (98-107) mmol/L BUN (9-20) mg/dL Creatinine (0.66-1.25) mg/dL POC Glucose (mg/dL) 180 H 226 H (70-110) mg/dL Phosphorus 6.2 H (2.5-4.5) mg/dL 04/19/23 04/20/23 04/20/23 Range/Units 20:37 03:53 03:53 RBC 3.11 L (4.30-5.90) m/uL Hgb 10.5 L (13.0-17.5) gm/dL Hct 31.3 L (39.0-53.0) % MCV 100.5 H (80.0-100.0) fL Neutrophils # 8.2 H (1.3-7.7) k/uL Sodium 134 L (137-145) mmol/L Chloride 95 L (98-107) mmol/L BUN 33 H (9-20) mg/dL Creatinine 4.33 H (0.66-1.25) mg/dL POC Glucose (mg/dL) 167 H (70-110) mg/dL Phosphorus (2.5-4.5) mg/dL 04/20/23 Range/Units 07:19 RBC (4.30-5.90) m/uL Hgb (13.0-17.5) gm/dL Hct (39.0-53.0) % MCV (80.0-100.0) fL Neutrophils # (1.3-7.7) k/uL Sodium (137-145) mmol/L Chloride (98-107) mmol/L BUN (9-20) mg/dL Creatinine (0.66-1.25) mg/dL POC Glucose (mg/dL) 118 H (70-110) mg/dL Phosphorus (2.5-4.5) mg/dL
--- NOTE | 2023-04-20 12:00 | P.PN ---
Subjective Patient is seen in follow-up for end-stage renal disease. He is maintained on hemodialysis on Tuesday schedule. No problems with dialysis yesterday. Blood pressure did drop and improved with midodrine. Only minimal ultrafiltration was done. Currently sitting up in chair. No active complaints. Vital signs are stable. General: No acute distress. HEENT: Head exam is unremarkable. LUNGS: No audible rhonchi or wheezes. HEART: Rate and Rhythm are regular. ABDOMEN: Nontender. EXTREMITITES: No edema. Finger amputation is noted. Objective - Vital Signs Vital signs: Vital Signs Temp 97.8 F 04/20/23 08:00 Pulse 78 04/20/23 10:00 Resp 22 04/20/23 10:00 BP 102/76 04/20/23 09:00 Pulse Ox 95 04/20/23 09:00 FiO2 Intake & Output 04/19/23 04/20/23 04/20/23 18:59 06:59 18:59 Intake Total 1010 180 Output Total 1002 5 0 Balance 8 175 0 Weight 128.7 kg 128.5 kg Intake: IV 30 30 Invasive Line 1 30 30 Intake, IV Titration 100 Amount Ampicillin-Sulbactam 3 gm 100 In Sodium Chloride 0.9% 100 ml @ 200 mls/hr IVPB HS [facility] Rx#:[id number] Oral 480 50 Hemodialysis 500 Output: Urine 52 5 0 Hemodialysis 950 Other: Voiding Method Urinal Urinal Urinal # Voids 1 1 1 # Bowel Movements 0 - Labs CBC & Chem 7: 04/20/23 03:53 04/20/23 03:53 Labs: Abnormal Lab Results - Last 24 Hours (Table) 04/19/23 04/19/23 04/20/23 Range/Units 17:25 20:37 03:53 RBC (4.30-5.90) m/uL Hgb (13.0-17.5) gm/dL Hct (39.0-53.0) % MCV (80.0-100.0) fL Neutrophils # (1.3-7.7) k/uL Sodium 134 L (137-145) mmol/L Chloride 95 L (98-107) mmol/L BUN 33 H (9-20) mg/dL Creatinine 4.33 H (0.66-1.25) mg/dL POC Glucose (mg/dL) 226 H 167 H (70-110) mg/dL 04/20/23 04/20/23 04/20/23 Range/Units 03:53 07:19 11:28 RBC 3.11 L (4.30-5.90) m/uL Hgb 10.5 L (13.0-17.5) gm/dL Hct 31.3 L (39.0-53.0) % MCV 100.5 H (80.0-100.0) fL Neutrophils # 8.2 H (1.3-7.7) k/uL Sodium (137-145) mmol/L Chloride (98-107) mmol/L BUN (9-20) mg/dL Creatinine (0.66-1.25) mg/dL POC Glucose (mg/dL) 118 H 169 H (70-110) mg/dL Assessment and Plan Plan: Assessment: 1. End-stage renal disease maintained on hemodialysis on Tuesday schedule via left upper extremity AV fistula. 2. Acute anterior wall LA status post LAD and circumflex stenting. 3. Diabetes mellitus. 4. Chronic kidney disease mineral bone disease. Phosphorus level 6.2 dated 04/19/2023. 5. Hypotension maintained on midodrine. Lisinopril discontinued. 6. Left hand osteomyelitis with multiple limitations on antibiotics. Plan: Hemodialysis tomorrow. Maintain midodrine as needed. Tums to be given with meals.
[2023-04-20 16:32] LABS: Glucose,Whole Blood 210 mg/dL (70-110)
[2023-04-20] MEDS: carvediloL 6.25 MG TAB PO SCH (17:10)
[2023-04-20] MEDS: ACETAMINOPHEN TAB 325 MG TAB PO PRN (20:06)
[2023-04-20 20:25] LABS: Glucose,Whole Blood 206 mg/dL (70-110)
--- NOTE | 2023-04-20 22:09 | P.CONS ---
History of Present Illness - Reason for Consult Consult date: 04/19/23 - History of Present Illness Patient is a 62-year-old male with a past medical history significant for end-stage renal disease on hemodialysis patient did have history of multiple finger infection requiring amputation recently did have a problem with the right index fingertip wound and concern for underlying osteomyelitis that is currently being treated in the outpatient setting with oral antibiotics as the patient canceled follow-up with his hand surgeon and chewed out the necrotic bone, patient did not present to the hospital with chest pain patient has been diagnosed with AK and is status post PTCA and stenting x 3, infectious was consulted for management of antibiotic therapy which was switched over to Unasyn yesterday by myself pending evaluation this morning. On today's evaluation patient denies having any fever or any chills, the patient is breathing comfortably on 2 L nasal cannula oxygen but denies having any chest pain shortness of breath or cough no nausea noted no abdominal pain and denies pain to the right index finger overall wound has dried out and there is no foul- smelling drainage Past Medical History Past Medical History: Coronary Artery Disease (CAD), Cancer, Heart Failure, CVA/TIA, Diabetes Mellitus, Eye Disorder, Hypertension, Myocardial Infarction (AK), Renal Disease, Sleep Apnea/CPAP/BIPAP, Thyroid Disorder Additional Past Medical History / Comment(s): unhealing sore left index finger, neuropathy bilateral lower extremity/feet, bilateral eye diabetic retinopathy/poor vision/multiple injections, ESRD with hemodialysis T/TH/SAT from 6:15 to 11:00, anemia, "mini strokes" x2, AVANI with CPap use, occasional low back pain/disc disease, gout, hypothyroid Last Myocardial Infarction Date:: 10/20/20 History of Any Multi-Drug Resistant Organisms: MRSA Year Discovered:: 12/10/21 MDRO Source:: Finger-Right 5th Past Surgical History: Adenoidectomy, Bariatric Surgery, Cholecystectomy, Heart Catheterization, Heart Catheterization With Stent, Orthopedic Surgery, Tonsillectomy Additional Past Surgical History / Comment(s): 10/22/20 PCI with stents x2, lap banding, FX of right ankle repair pins / plate, fistual lt arm jul 2018, lt shoulder sx (d/t separation), colonoscopies, bilateral cataract removals/lens implants. LIF surgery 08/11/21 R LEG stacey placed January 2023 Past Anesthesia/Blood Transfusion Reactions: Motion Sickness Additional Past Anesthesia/Blood Transfusion Reaction / Comm: CLAUSTERPHOBIA Date of Last Stent Placement:: 10/22/20 Past Psychological History: Anxiety Smoking Status: Former smoker - Past Family History Mother History Unknown: Yes Family Medical History: Coronary Artery Disease (CAD), Myocardial Infarction (AK) Additional Family Medical History / Comment(s): Mother at age 58 from multiple sclerosis Father Family Medical History: CVA/TIA, Myocardial Infarction (AK) Additional Family Medical History / Comment(s): Father had history of AK and CVA followed by a second AK and CVA and at age 65. Brother(s) Additional Family Medical History / Comment(s): . Medications and Allergies Home Medications Medication Instructions Recorded Confirmed Type Levothyroxine Sodium 100 mcg PO DAILY 07/06/17 04/18/23 History Torsemide [Demadex] 40 mg PO DAILY 09/10/19 04/18/23 History Bryanna-Olimpia 1 tab PO DAILY 10/20/20 04/18/23 History HYDROcodone/APAP 10-325MG [Belva 1 tab PO Q6H 11/24/20 04/18/23 History 10-325] Insulin Regular, Human [Novolin R 15 unit SQ ACHS PRN 11/24/20 04/18/23 History Flexpen] Nitroglycerin Sl Tabs [Nitrostat] 0.4 mg SL Q5M PRN 03/11/21 04/18/23 History Atorvastatin [Lipitor] 40 mg PO HS #30 tab 06/15/22 04/18/23 Rx carvediloL [Coreg] 6.25 mg PO BID-W/MEALS #60 tab 08/09/22 04/18/23 Rx lisinopriL [Zestril] 5 mg PO HS 10/07/22 04/18/23 History FLUoxetine HCL [PROzac] 40 mg PO DAILY 30 Days #30 cap 10/16/22 04/18/23 Rx Apixaban [Eliquis] 2.5 mg PO BID 02/16/23 04/18/23 History Acetaminophen Tab [Tylenol] 650 mg PO Q6HR PRN tab 02/21/23 04/18/23 Rx Insulin Detemir (Levemir) [Levemir] 20 unit SQ HS 30 Days #5 each 02/21/23 04/18/23 Rx metroNIDAZOLE [Flagyl] 500 mg PO TID #42 tab 02/21/23 04/18/23 Rx Calcium Carbonate [Tums] 1,000 mg PO AC-TID 04/18/23 04/18/23 History Cephalexin [Keflex] 500 mg PO Q12HR 04/18/23 04/18/23 History methocarbamoL [Robaxin] 500 - 1,000 mg PO QID PRN 04/18/23 04/18/23 History Allergies Allergy/AdvReac Type Severity Reaction Status Date / Time No Known Allergies Allergy Verified 04/18/23 17:46 Physical Exam Vitals: Vital Signs Temp Pulse Resp BP Pulse Ox 04/19/23 10:00 79 16 88/44 100 04/19/23 09:00 80 16 84/46 04/19/23 08:00 97.7 F 78 20 84/46 98 04/19/23 07:00 78 18 113/36 96 04/19/23 06:30 79 31 H 113/36 100 04/19/23 06:00 78 14 114/38 100 04/19/23 05:30 79 23 99 04/19/23 05:00 71 18 99/30 99 04/19/23 04:30 79 14 99/30 100 04/19/23 04:00 97.6 F 84 13 92/27 94 L 04/19/23 03:30 78 11 L 92/27 100 04/19/23 03:00 77 16 104/69 100 04/19/23 02:30 78 14 104/69 97 04/19/23 02:00 85 11 L 104/42 95 04/19/23 01:30 78 104/42 98 04/19/23 01:00 82 18 96 04/19/23 00:30 80 17 97 04/19/23 00:00 83 12 109/42 97 04/18/23 23:36 79 18 96 04/18/23 23:30 77 17 94/53 97 04/18/23 23:00 81 12 97/38 97 04/18/23 22:30 81 16 99 04/18/23 22:15 82 20 98 04/18/23 22:00 83 10 L 96 04/18/23 21:45 85 13 125/68 98 04/18/23 21:30 88 27 H 117/70 98 04/18/23 21:15 86 110/47 99 04/18/23 21:00 86 20 110/52 99 04/18/23 20:45 85 18 112/79 97 04/18/23 20:30 86 12 98 04/18/23 20:15 91 110/93 99 04/18/23 20:00 97.9 F 89 18 92/69 98 04/18/23 19:00 85 18 103/55 100 04/18/23 18:45 86 18 100 04/18/23 18:30 89 12 105/93 99 04/18/23 18:15 93 15 84/63 99 04/18/23 18:00 93 14 118/68 96 04/18/23 17:45 91 12 99/60 100 04/18/23 17:30 93 53 H 92/61 100 04/18/23 17:15 95 12 108/52 97 04/18/23 17:00 91 12 117/65 99 04/18/23 16:45 90 12 127/52 98 04/18/23 16:30 89 12 125/40 100 04/18/23 16:15 88 12 113/47 99 04/18/23 16:00 89 14 107/57 100 04/18/23 15:57 97.7 F 16 90 L 04/18/23 15:55 100 04/18/23 14:08 88 18 118/70 96 04/18/23 13:33 98.3 F 88 16 147/91 99 Intake and Output 04/18/23 04/19/23 04/19/23 22:59 06:59 14:59 Intake Total 410 20 250 Output Total 0 35 2 Balance 410 -15 248 Intake: IV 20 20 10 Invasive Line 1 20 20 10 Intake, IV Titration 100 Amount Ampicillin-Sulbactam 3 gm 100 In Sodium Chloride 0.9% 100 ml @ 200 mls/hr IVPB Q12HR [facility] Rx#:[id number] Oral 290 240 Output: Urine 0 35 2 Other: Voiding Method Urinal Urinal Weight 128.7 kg Results CBC & Chem 7: 04/20/23 03:53 04/20/23 03:53 Labs: Abnormal Lab Results - Last 24 Hours (Table) 04/18/23 04/18/23 04/18/23 Range/Units 13:55 13:55 13:55 WBC 12.7 H (3.8-10.6) k/uL RBC 3.49 L (4.30-5.90) m/uL Hgb 11.7 L (13.0-17.5) gm/dL Hct 34.7 L (39.0-53.0) % MCV (80.0-100.0) fL Plt Count 146 L (150-450) k/uL Neutrophils # 10.2 H (1.3-7.7) k/uL Sodium 133 L (137-145) mmol/L Chloride 92 L (98-107) mmol/L Carbon Dioxide 31 H (22-30) mmol/L BUN 50 H (9-20) mg/dL Creatinine 4.96 H (0.66-1.25) mg/dL Glucose 126 H (74-99) mg/dL POC Glucose (mg/dL) (70-110) mg/dL Hemoglobin A1c (<=6.0) % AST (17-59) U/L Troponin I 4.050 H* (0.000-0.034) ng/mL Total Protein (6.3-8.2) g/dL Albumin (3.5-5.0) g/dL 04/18/23 04/18/23 04/18/23 Range/Units 13:55 15:59 17:23 WBC (3.8-10.6) k/uL RBC (4.30-5.90) m/uL Hgb (13.0-17.5) gm/dL Hct (39.0-53.0) % MCV (80.0-100.0) fL Plt Count (150-450) k/uL Neutrophils # (1.3-7.7) k/uL Sodium (137-145) mmol/L Chloride (98-107) mmol/L Carbon Dioxide (22-30) mmol/L BUN (9-20) mg/dL Creatinine (0.66-1.25) mg/dL Glucose (74-99) mg/dL POC Glucose (mg/dL) 150 H 148 H (70-110) mg/dL Hemoglobin A1c 6.4 H (<=6.0) % AST (17-59) U/L Troponin I (0.000-0.034) ng/mL Total Protein (6.3-8.2) g/dL Albumin (3.5-5.0) g/dL 04/18/23 04/19/23 04/19/23 Range/Units 20:30 07:39 07:39 WBC (3.8-10.6) k/uL RBC 3.21 L (4.30-5.90) m/uL Hgb 10.7 L (13.0-17.5) gm/dL Hct 32.4 L (39.0-53.0) % MCV 100.8 H (80.0-100.0) fL Plt Count 130 L (150-450) k/uL Neutrophils # (1.3-7.7) k/uL Sodium 134 L (137-145) mmol/L Chloride 91 L (98-107) mmol/L Carbon Dioxide (22-30) mmol/L BUN 56 H (9-20) mg/dL Creatinine 6.09 H (0.66-1.25) mg/dL Glucose 110 H (74-99) mg/dL POC Glucose (mg/dL) 232 H (70-110) mg/dL Hemoglobin A1c (<=6.0) % AST 111 H (17-59) U/L Troponin I (0.000-0.034) ng/mL Total Protein 6.2 L (6.3-8.2) g/dL Albumin 3.2 L (3.5-5.0) g/dL Assessment and Plan Plan: 1patient with right index finger osteomyelitis while the patient has been on Keflex infusion in the outpatient setting not been to the hospital with an MRI status post PTCA and stenting patient is afebrile white count is normal and right index finger, swelling redness has improved 2-we will call the patient on Unasyn 3 g daily dose has been adjusted to the kidney function and will be transition back to the oral Keflex and Flagyl on discharge Questions concerns were answered We will follow on clinical condition and cultures to further adjust medication if needed Thank you for this consultation we will follow the patient along with you Dictation was produced using [employer] software. please excuse any grammatical, word or spelling errors. Time with Patient: Greater than 30
[2023-04-20] MEDS: AMPICILLIN-SULBACTAM 3 GM in SODIUM CHLORIDE 0.9% 100 ML IVPB SCH (22:40)
[2023-04-20] MEDS: INSULIN DETEMIR (LEVEMIR) 100 UNIT/ML SYR SQ SCH (22:41)
[2023-04-20] MEDS: ATORVASTATIN 80 MG TAB PO SCH (22:42)
[2023-04-20] MEDS: MELATONIN 1 MG TAB PO SCH (22:59)
[2023-04-21] MEDS: ACETAMINOPHEN TAB 325 MG TAB PO PRN (03:59)
[2023-04-21] MEDS: MIDODRINE 5 MG TAB PO PRN (03:59)
[2023-04-21 05:57] LABS: Glucose,Whole Blood 133 mg/dL (70-110)
[2023-04-21] MEDS: INSULIN ASPART (NovoLOG) 100 UNIT/ML VIAL SQ SCH ×4 (06:07→21:15)
[2023-04-21] MEDS: LEVOTHYROXINE 100 MCG TAB PO SCH (06:39)
[2023-04-21] MEDS: carvediloL 6.25 MG TAB PO SCH ×2 (06:39→17:06)
[2023-04-21] MEDS: LORazepam 1 MG TAB PO PRN ×2 (07:35→21:15)
[2023-04-21] MEDS: HYDROcodone/APAP 10-325MG 1 EACH TAB PO PRN ×3 (07:36→19:39)
[2023-04-21 08:17] LABS: Basophils # (A) 0.1 k/uL (0-0.2); Basophils % (A) 0 %; Eosinophils # (A) 0.3 k/uL (0-0.7); Eosinophils % (A) 2 %; HCT 31.6 % (39.0-53.0); HGB 10.1 gm/dL (13.0-17.5); Lymphocytes # (A) 1.1 k/uL (1.0-4.8); Lymphocytes % (A) 9 %; MCH 32.4 pg (25.0-35.0); MCHC 31.9 g/dL (31.0-37.0); MCV 101.3 fL (80.0-100.0); Macrocytosis Slight; Mean Platelet Volume 8.1; Monocytes # (A) 0.6 k/uL (0-1.0); Monocytes % (A) 5 %; Neutrophils # (A) 9.3 k/uL (1.3-7.7); Neutrophils % (A) 81 %; Platelet Count 138 k/uL (150-450); RBC 3.12 m/uL (4.30-5.90); RDW 15.2 % (11.5-15.5); WBC 11.5 k/uL (3.8-10.6)
[2023-04-21 08:46] LABS: ALT 21 U/L (4-49); AST 36 U/L (17-59); African American GFR (CKD) 11 (>60 ml/min/1.73 sqM); Albumin 3.1 g/dL (3.5-5.0); Alkaline Phosphatase 66 U/L (38-126); Anion Gap 13 mmol/L; Blood Urea Nitrogen 44 mg/dL (9-20); Calcium 8.3 mg/dL (8.4-10.2); Carbon Dioxide 26 mmol/L (22-30); Chloride 93 mmol/L (98-107); Glucose 133 mg/dL (74-99); Non-African American GFR(CKD) 10 (>60 ml/min/1.73 sqM); Potassium 4.8 mmol/L (3.5-5.1); Sodium 132 mmol/L (137-145); Total Bilirubin 0.8 mg/dL (0.2-1.3); Total Protein 6.1 g/dL (6.3-8.2)
[2023-04-21 11:33] LABS: Glucose,Whole Blood 153 mg/dL (70-110)
--- NOTE | 2023-04-21 12:00 | P.PN ---
Subjective Patient is seen in follow-up for end-stage renal disease. He is maintained on hemodialysis on Tuesday schedule. Tolerating dialysis well. Hemodynamically stable. Only minimal ultrafiltration was done. No active complaints at this time. Vital signs are stable. General: No acute distress. HEENT: Head exam is unremarkable. LUNGS: No audible rhonchi or wheezes. HEART: Rate and Rhythm are regular. ABDOMEN: Nontender. EXTREMITITES: No edema. Finger amputation is noted. Objective - Vital Signs Vital signs: Vital Signs Temp 97.7 F 04/21/23 08:00 Pulse 76 04/21/23 08:00 Resp 14 04/21/23 08:00 BP 143/58 04/21/23 08:00 Pulse Ox 96 04/21/23 08:00 FiO2 Intake & Output 04/20/23 04/21/23 04/21/23 18:59 06:59 18:59 Intake Total 360 Output Total 0 75 Balance 0 -75 360 Weight 127.5 kg Intake: Oral 360 Output: Urine 0 75 Other: Voiding Method Urinal Urinal Urinal # Voids 1 - Labs CBC & Chem 7: 04/21/23 07:54 04/21/23 07:54 Labs: Abnormal Lab Results - Last 24 Hours (Table) 04/20/23 04/20/23 04/21/23 Range/Units 16:31 20:23 05:55 WBC (3.8-10.6) k/uL RBC (4.30-5.90) m/uL Hgb (13.0-17.5) gm/dL Hct (39.0-53.0) % MCV (80.0-100.0) fL Plt Count (150-450) k/uL Neutrophils # (1.3-7.7) k/uL Sodium (137-145) mmol/L Chloride (98-107) mmol/L BUN (9-20) mg/dL Creatinine (0.66-1.25) mg/dL Glucose (74-99) mg/dL POC Glucose (mg/dL) 210 H 206 H 133 H (70-110) mg/dL Calcium (8.4-10.2) mg/dL Total Protein (6.3-8.2) g/dL Albumin (3.5-5.0) g/dL 04/21/23 04/21/23 04/21/23 Range/Units 07:54 07:54 11:32 WBC 11.5 H (3.8-10.6) k/uL RBC 3.12 L (4.30-5.90) m/uL Hgb 10.1 L (13.0-17.5) gm/dL Hct 31.6 L (39.0-53.0) % MCV 101.3 H (80.0-100.0) fL Plt Count 138 L (150-450) k/uL Neutrophils # 9.3 H (1.3-7.7) k/uL Sodium 132 L (137-145) mmol/L Chloride 93 L (98-107) mmol/L BUN 44 H (9-20) mg/dL Creatinine 5.79 H (0.66-1.25) mg/dL Glucose 133 H (74-99) mg/dL POC Glucose (mg/dL) 153 H (70-110) mg/dL Calcium 8.3 L (8.4-10.2) mg/dL Total Protein 6.1 L (6.3-8.2) g/dL Albumin 3.1 L (3.5-5.0) g/dL Assessment and Plan Plan: Assessment: 1. End-stage renal disease maintained on hemodialysis on Tuesday schedule via left upper extremity AV fistula. 2. Acute anterior wall FL status post LAD and circumflex stenting. 3. Diabetes mellitus. 4. Chronic kidney disease mineral bone disease. Phosphorus level 6.2 dated 04/19/2023. On Tums. 5. Hypotension maintained on midodrine. Lisinopril discontinued. 6. Left hand osteomyelitis with multiple limitations on antibiotics. Plan: Currently seen while undergoing hemodialysis. Maintain midodrine as needed.
--- NOTE | 2023-04-21 13:26 | P.PN ---
Subjective Progress Note Date: 04/21/23 62-year-old gentleman with past medical history significant for hypertension, hyperlipidemia, coronary artery disease with previous stenting of the RCA in 2020, paroxysmal atrial fibrillation, pericardial effusion with tamponade status post pericardial window in 2020, end-stage renal disease on hemodialysis, and amputations of fingers on his left hand secondary to osteomyelitis presented to the ER for chest pain. Chest pain started around noon, was left-sided, radiating to left arm. Denies any shortness of breath as well as chest pain. Denies any nausea or vomiting. This chest pain was similar to previous episodes of heart attack. Patient became concerned and came to the ER Initial lab work done in the ER showed the previous 2.7, hemoglobin 11.7, platelet count 146, sodium 1:30, potassium 4.4, BUN 50, creatinine 4.96 EKG done in the ER showed ST segment elevation in V2 to V6 and lead 2 and 3. Patient was evaluated by cardiology in the ER and was taken for emergent cardiac cath 04/20. Patient seen and examined. Patient had one episode of hematuria, repeat urination did not have any blood in it. Patient seen and examined. Patient was undergoing hemodialysis today. Denies any episodes of chest pain. Hematuria resolved REVIEW OF SYSTEMS: CONSTITUTIONAL: No fever, no malaise,. CARDIOVASCULAR: No chest pain, no palpitations, no syncope. PULMONARY: No shortness of breath, no cough, GASTROINTESTINAL: No diarrhea, no nausea, no vomiting, no abdominal pain. NEUROLOGICAL: No headaches, no weakness, PHYSICAL EXAMINATION: GENERAL: The patient is alert and oriented x3, not in any acute distress. Well developed, well nourished. HEENT: Pupils are round and equally reacting to light. EOMI. No scleral icterus. No conjunctival pallor. Normocephalic, atraumatic. No pharyngeal erythema. No thyromegaly. CARDIOVASCULAR: S1 and S2 present. No murmurs, rubs, or gallops. PULMONARY: Chest is clear to auscultation, no wheezing or crackles. ABDOMEN: Soft, nontender, nondistended, normoactive bowel sounds. No palpable organomegaly. MUSCULOSKELETAL: No joint swelling or deformity. Finger amputations seen of right hand EXTREMITIES: No cyanosis, clubbing, or pedal edema. NEUROLOGICAL: Gross neurological examination did not reveal any focal deficits. SKIN: No rashes. Assessment and plan Monitor vital signs Monitor CBC Monitor CMP Continue telemetry monitoring Status post cardiac cath showing Diffuse mild CAD and significant obstructive 90% mid LAD, 100% mid to distal LAD, 80% diagonal 1 stenosis, S/p PCI mid LAD 3.25 x 15mm Xience, post dilated with a 4.0 NC balloon, PCI diagonal 1 with a 2.25 x 12mm Xience TORIN, PCI mid to distal LAD with a 3.0 x 38mm Xience TORIN Continue aspirin, brilinta Continue Eliquis Continue current insulin regimen Continue IV Unasyn Follow-up on cardiology recommendations Follow-up on ID recommendations Labs and medication were reviewed.. Continue same treatment. Continue with symptomatic treatment. Resume home medication. Monitor labs and vitals. DVT and GI prophylaxis. Further recommendations as per clinical course of the patient Dictation was produced using [employer] dictation software. please excuse any grammatical, word or spelling errors. Objective - Vital Signs Vital signs: Vital Signs Temp 96.3 F L 04/20/23 20:13 Pulse 78 04/21/23 03:54 Resp 18 04/21/23 03:54 BP 113/53 04/21/23 05:52 Pulse Ox 100 04/21/23 03:54 FiO2 Intake & Output 04/20/23 04/21/23 04/21/23 18:59 06:59 18:59 Intake Total 360 Output Total 0 75 Balance 0 -75 360 Weight 127.5 kg Intake: Oral 360 Output: Urine 0 75 Other: Voiding Method Urinal Urinal # Voids 1 - Labs CBC & Chem 7: 04/21/23 07:54 04/21/23 07:54 Labs: Abnormal Lab Results - Last 24 Hours (Table) 04/20/23 04/20/23 04/20/23 Range/Units 11:28 16:31 20:23 WBC (3.8-10.6) k/uL RBC (4.30-5.90) m/uL Hgb (13.0-17.5) gm/dL Hct (39.0-53.0) % MCV (80.0-100.0) fL Plt Count (150-450) k/uL Neutrophils # (1.3-7.7) k/uL Sodium (137-145) mmol/L Chloride (98-107) mmol/L BUN (9-20) mg/dL Creatinine (0.66-1.25) mg/dL Glucose (74-99) mg/dL POC Glucose (mg/dL) 169 H 210 H 206 H (70-110) mg/dL Calcium (8.4-10.2) mg/dL Total Protein (6.3-8.2) g/dL Albumin (3.5-5.0) g/dL 04/21/23 04/21/23 04/21/23 Range/Units 05:55 07:54 07:54 WBC 11.5 H (3.8-10.6) k/uL RBC 3.12 L (4.30-5.90) m/uL Hgb 10.1 L (13.0-17.5) gm/dL Hct 31.6 L (39.0-53.0) % MCV 101.3 H (80.0-100.0) fL Plt Count 138 L (150-450) k/uL Neutrophils # 9.3 H (1.3-7.7) k/uL Sodium 132 L (137-145) mmol/L Chloride 93 L (98-107) mmol/L BUN 44 H (9-20) mg/dL Creatinine 5.79 H (0.66-1.25) mg/dL Glucose 133 H (74-99) mg/dL POC Glucose (mg/dL) 133 H (70-110) mg/dL Calcium 8.3 L (8.4-10.2) mg/dL Total Protein 6.1 L (6.3-8.2) g/dL Albumin 3.1 L (3.5-5.0) g/dL
--- NOTE | 2023-04-21 13:40 | P.PN ---
Subjective HISTORY OF PRESENT ILLNESS: This is a 62-year-old male with a past medical history significant for hypertension, hyperlipidemia, coronary artery disease with previous stenting of the RCA in 2020, paroxysmal atrial fibrillation, pericardial effusion with tamponade status post pericardial window in 2020, end-stage renal disease on hemodialysis, and amputations of fingers on his left hand secondary to osteomyelitis. Patient follows in the office with Dr. Jimenez. We have been asked to see the patient in consultation for STEMI. Patient examined at the bedside in the emergency room with Dr. Coello. Patient states he woke up this morning and was not feeling well. He reports having some nausea. He states later in the morning he developed chest pain. He states the pain was in the middle of his chest and felt like a pressure type sensation. He reports radiation down his left arm. EKG was performed revealing ST elevation in V2-V6. It is noted that the patient underwent a cardiac catheterization in October 2020 with stenting of the mid RCA. He also underwent Lexiscan stress test in July 2022 which was negative for ischemia. 04/21/2023 Patient is status post cardiac catheterization with stenting of the mid LAD, mid to distal LAD, and diagonal 1. Patient examined this morning. He has been transferred out of the intensive care unit. He is currently undergoing hemodialysis. He denies chest pain or pressure. He does report some mild shortness of breath when he is laying flat. Hematuria has resolved. He remains on triple therapy. Patient's blood pressure was low overnight with a reading of 84/42. Blood pressure improved this morning with a reading of 143/58. PHYSICAL EXAM: VITAL SIGNS: Reviewed. GENERAL: Well-developed in no acute distress. HEENT: Head is normocephalic. Pupils are equal, round. Sclerae anicteric. Mucous membranes of the mouth are moist. Neck supple. No JVD or thyromegaly LUNGS: Respirations even and unlabored. Lungs essentially clear to auscultation bilaterally. HEART: Regular rate and rhythm. S1 and S2 heard. ABDOMEN: Soft. Nondistended. Nontender. EXTREMITIES: Amputations of left fingers noted. Normal range of motion. No clubbing or cyanosis. Peripheral pulses intact. No lower extremity edema NEUROLOGIC: Awake and alert. Oriented x 3. ASSESSMENT: STEMI, status post stenting of LAD and diagonal Coronary artery disease with previous stenting of the RCA, 2020 Paroxysmal atrial fibrillation End-stage renal disease on hemodialysis Hypertension Hyperlipidemia History of pericardial effusion with tamponade, status post pericardial window, 2020 History of CVA History of amputations of his fingers on left hand secondary to osteomyelitis Hematuria, resolved PLAN: Hemodialysis per nephrology Continue current cardiac medications Continue to monitor blood pressure Continue to monitor patient for an additional 24 hours Further recommendations pending patient's course Nurse practitioner note has been reviewed by physician. Signing provider agrees with the documented findings, assessment, and plan of care. Objective - Vital Signs Vital signs: Vital Signs Temp 97.7 F 04/21/23 08:00 Pulse 76 04/21/23 08:00 Resp 14 04/21/23 08:00 BP 143/58 04/21/23 08:00 Pulse Ox 96 04/21/23 08:00 FiO2 Intake & Output 04/20/23 04/21/23 04/21/23 18:59 06:59 18:59 Intake Total 360 Output Total 0 75 Balance 0 -75 360 Weight 127.5 kg Intake: Oral 360 Output: Urine 0 75 Other: Voiding Method Urinal Urinal Urinal # Voids 1 - Labs CBC & Chem 7: 04/21/23 07:54 04/21/23 07:54 Labs: Abnormal Lab Results - Last 24 Hours (Table) 04/20/23 04/20/23 04/21/23 Range/Units 16:31 20:23 05:55 WBC (3.8-10.6) k/uL RBC (4.30-5.90) m/uL Hgb (13.0-17.5) gm/dL Hct (39.0-53.0) % MCV (80.0-100.0) fL Plt Count (150-450) k/uL Neutrophils # (1.3-7.7) k/uL Sodium (137-145) mmol/L Chloride (98-107) mmol/L BUN (9-20) mg/dL Creatinine (0.66-1.25) mg/dL Glucose (74-99) mg/dL POC Glucose (mg/dL) 210 H 206 H 133 H (70-110) mg/dL Calcium (8.4-10.2) mg/dL Total Protein (6.3-8.2) g/dL Albumin (3.5-5.0) g/dL 0804/21/23 04/21/23 Range/Units 07:54 07:54 11:32 WBC 11.5 H (3.8-10.6) k/uL RBC 3.12 L (4.30-5.90) m/uL Hgb 10.1 L (13.0-17.5) gm/dL Hct 31.6 L (39.0-53.0) % MCV 101.3 H (80.0-100.0) fL Plt Count 138 L (150-450) k/uL Neutrophils # 9.3 H (1.3-7.7) k/uL Sodium 132 L (137-145) mmol/L Chloride 93 L (98-107) mmol/L BUN 44 H (9-20) mg/dL Creatinine 5.79 H (0.66-1.25) mg/dL Glucose 133 H (74-99) mg/dL POC Glucose (mg/dL) 153 H (70-110) mg/dL Calcium 8.3 L (8.4-10.2) mg/dL Total Protein 6.1 L (6.3-8.2) g/dL Albumin 3.1 L (3.5-5.0) g/dL
[2023-04-21] MEDS: ASPIRIN 81 MG PO SCH (15:05)
[2023-04-21] MEDS: APIXABAN 2.5 MG TABLET PO SCH ×2 (15:05→21:13)
[2023-04-21] MEDS: FLUoxetine HCL 20 MG CAP PO SCH (15:05)
[2023-04-21] MEDS: FOLIC ACID-VIT B COMPLEX-VIT C 1 CAP PO SCH (15:05)
[2023-04-21] MEDS: PANTOPRAZOLE 40 MG/10 ML VIAL IVP SCH (15:06)
[2023-04-21] MEDS: TICAGRELOR 90 MG TAB PO SCH ×2 (15:06→21:13)
[2023-04-21] MEDS: CALCIUM CARBONATE 500 MG CHEWABLE PO SCH ×3 (15:06→21:12)
[2023-04-21] MEDS: NYSTATIN 100,000 UNIT/GM POWD 15 GM TOPICAL SCH ×2 (15:07→21:14)
--- NOTE | 2023-04-21 15:15 | P.PN ---
Subjective Progress Note Date: 04/20/23 Principal diagnosis: Right index finger infection Patient is a 62-year-old male with a past medical history significant for end-stage renal disease on hemodialysis patient did have history of multiple finger infection requiring amputation recently did have a problem with the right index fingertip wound and concern for underlying osteomyelitis, admitted to the hospital with [place] status post PTCA and stent. On today's evaluation that is 04/20/2023, the patient denies having any fever or any chills, the patient is breathing comfortably on 2 L nasal cannula oxygen, th e patient denies having any chest pain or cough the patient denies pain to the right index finger area no poor wound or any drainage and abdominal pain and no diarrhea Patient did have a hemoglobin of 10.5 white count is also 10.5 creatinine 4.33 Objective - Vital Signs Vital signs: Vital Signs Temp 97.8 F 04/20/23 08:00 Pulse 78 04/20/23 10:00 Resp 22 04/20/23 10:00 BP 102/76 04/20/23 09:00 Pulse Ox 95 04/20/23 09:00 FiO2 Intake & Output 04/19/23 04/20/23 04/20/23 18:59 06:59 18:59 Intake Total 1010 180 Output Total 1002 5 0 Balance 8 175 0 Weight 128.7 kg 128.5 kg Intake: IV 30 30 Invasive Line 1 30 30 Intake, IV Titration 100 Amount Ampicillin-Sulbactam 3 gm 100 In Sodium Chloride 0.9% 100 ml @ 200 mls/hr IVPB HS ALINE Rx#:[id number] Oral 480 50 Hemodialysis 500 Output: Urine 52 5 0 Hemodialysis 950 Other: Voiding Method Urinal Urinal Urinal # Voids 1 1 1 # Bowel Movements 0 - Exam GENERAL DESCRIPTION: Middle-aged male lying in bed in no distress RESPIRATORY SYSTEM: Unlabored breathing , decreased breath sounds at bases HEART: S1 S2 regular rate and rhythm , ABDOMEN: Soft , no tenderness EXTREMITIES: Right index finger tip with no swelling redness or any drainage - Labs CBC & Chem 7: 04/21/23 07:54 04/21/23 07:54 Labs: Abnormal Lab Results - Last 24 Hours (Table) 04/19/23 04/19/23 04/20/23 Range/Units 17:25 20:37 03:53 RBC (4.30-5.90) m/uL Hgb (13.0-17.5) gm/dL Hct (39.0-53.0) % MCV (80.0-100.0) fL Neutrophils # (1.3-7.7) k/uL Sodium 134 L (137-145) mmol/L Chloride 95 L (98-107) mmol/L BUN 33 H (9-20) mg/dL Creatinine 4.33 H (0.66-1.25) mg/dL POC Glucose (mg/dL) 226 H 167 H (70-110) mg/dL 04/20/23 04/20/23 04/20/23 Range/Units 03:53 07:19 11:28 RBC 3.11 L (4.30-5.90) m/uL Hgb 10.5 L (13.0-17.5) gm/dL Hct 31.3 L (39.0-53.0) % MCV 100.5 H (80.0-100.0) fL Neutrophils # 8.2 H (1.3-7.7) k/uL Sodium (137-145) mmol/L Chloride (98-107) mmol/L BUN (9-20) mg/dL Creatinine (0.66-1.25) mg/dL POC Glucose (mg/dL) 118 H 169 H (70-110) mg/dL Assessment and Plan (1) Finger osteomyelitis, right Current Visit: Yes Status: Acute Code(s): M86.9 - OSTEOMYELITIS, UNSPECIFIED SNOMED Code(s): 8630968660632639 Plan: 1patient with right index finger osteomyelitis for which the patient has been on Keflex and oral Flagyl in the outpatient setting not been to the hospital with an MRI status post PTCA and stenting patient is afebrile white count is normal and right index finger, swelling redness has improved 2-patient to continue with Unasyn 3 g daily dose has been adjusted to the kidney function while inpatient and monitor clinical course closely Dictation was produced using [employer] dictation software. please excuse any gra mmatical, word or spelling errors. Time with Patient: Less than 30
--- NOTE | 2023-04-21 15:16 | P.PN ---
Subjective Progress Note Date: 04/21/23 Principal diagnosis: Right index finger infection Patient is a 62-year-old male with a past medical history significant for end-stage renal disease on hemodialysis patient did have history of multiple finger infection requiring amputation recently did have a problem with the right index fingertip wound and concern for underlying osteomyelitis, admitted to the hospital with [place] status post PTCA and stent. On today's evaluation that is 04/21/2023, the patient remains to be afebrile, the patient is breathing comfortably on room air, the patient denies having any chest pain or cough the patient denies pain to the right index finger area no poor wound or any drainage and abdominal pain and no diarrhea Patient did have a hemoglobin of 10.1, white count is 11.5 creatinine is 5.79 Objective - Vital Signs Vital signs: Vital Signs Temp 97.7 F 04/21/23 08:00 Pulse 76 04/21/23 08:00 Resp 14 04/21/23 08:00 BP 143/58 04/21/23 08:00 Pulse Ox 96 04/21/23 08:00 FiO2 Intake & Output 04/20/23 04/21/23 04/21/23 18:59 06:59 18:59 Intake Total 360 Output Total 0 75 Balance 0 -75 360 Weight 127.5 kg Intake: Oral 360 Output: Urine 0 75 Other: Voiding Method Urinal Urinal Urinal # Voids 1 - Exam GENERAL DESCRIPTION: Middle-aged male lying in bed in no distress RESPIRATORY SYSTEM: Unlabored breathing , decreased breath sounds at bases HEART: S1 S2 regular rate and rhythm , ABDOMEN: Soft , no tenderness EXTREMITIES: Right index finger tip with no swelling redness or any drainage - Labs CBC & Chem 7: 04/21/23 07:54 04/21/23 07:54 Labs: Abnormal Lab Results - Last 24 Hours (Table) 04/20/23 04/20/23 04/21/23 Range/Units 16:31 20:23 05:55 WBC (3.8-10.6) k/uL RBC (4.30-5.90) m/uL Hgb (13.0-17.5) gm/dL Hct (39.0-53.0) % MCV (80.0-100.0) fL Plt Count (150-450) k/uL Neutrophils # (1.3-7.7) k/uL Sodium (137-145) mmol/L Chloride (98-107) mmol/L BUN (9-20) mg/dL Creatinine (0.66-1.25) mg/dL Glucose (74-99) mg/dL POC Glucose (mg/dL) 210 H 206 H 133 H (70-110) mg/dL Calcium (8.4-10.2) mg/dL Total Protein (6.3-8.2) g/dL Albumin (3.5-5.0) g/dL 04/21/23 04/21/23 04/21/23 Range/Units 07:54 07:54 11:32 WBC 11.5 H (3.8-10.6) k/uL RBC 3.12 L (4.30-5.90) m/uL Hgb 10.1 L (13.0-17.5) gm/dL Hct 31.6 L (39.0-53.0) % MCV 101.3 H (80.0-100.0) fL Plt Count 138 L (150-450) k/uL Neutrophils # 9.3 H (1.3-7.7) k/uL Sodium 132 L (137-145) mmol/L Chloride 93 L (98-107) mmol/L BUN 44 H (9-20) mg/dL Creatinine 5.79 H (0.66-1.25) mg/dL Glucose 133 H (74-99) mg/dL POC Glucose (mg/dL) 153 H (70-110) mg/dL Calcium 8.3 L (8.4-10.2) mg/dL Total Protein 6.1 L (6.3-8.2) g/dL Albumin 3.1 L (3.5-5.0) g/dL Assessment and Plan (1) Finger osteomyelitis, right Current Visit: Yes Status: Acute Code(s): M86.9 - OSTEOMYELITIS, UNSPECIFIED SNOMED Code(s): 3193068111058830 Plan: 1patient with right index finger osteomyelitis for which the patient has been on Keflex and oral Flagyl in the outpatient setting not been to the hospital with an MRI status post PTCA and stenting patient is afebrile white count is normal and right index finger, swelling redness has improved 2-patient has show some clinical improvement and will continue with Unasyn 3 g daily while inpatient and transitioned to oral Keflex and Flagyl on discharge Dictation was produced using [employer] dictation software. please excuse any grammatical, word or spelling errors. Time with Patient: Less than 30
[2023-04-21 16:26] LABS: Glucose,Whole Blood 184 mg/dL (70-110)
[2023-04-21] MEDS ORDERED: MAG HYDROX/AL HYDROX/SIMETH 30 ML, HYOSCYAMINE ELIXIR 10 ML, LIDOCAINE VISCOUS 10 ML PO ONE ×3 (17:19)
[2023-04-21 20:02] LABS: Glucose,Whole Blood 168 mg/dL (70-110)
[2023-04-21] MEDS: AMPICILLIN-SULBACTAM 3 GM in SODIUM CHLORIDE 0.9% 100 ML IVPB SCH (21:11)
[2023-04-21] MEDS: MELATONIN 1 MG TAB PO SCH (21:13)
[2023-04-21] MEDS: methocarbamoL 500 MG TAB PO PRN (21:13)
[2023-04-21] MEDS: ATORVASTATIN 80 MG TAB PO SCH (21:13)
[2023-04-21] MEDS: INSULIN DETEMIR (LEVEMIR) 100 UNIT/ML SYR SQ SCH (21:14)
[2023-04-22] MEDS: HYDROcodone/APAP 10-325MG 1 EACH TAB PO PRN ×2 (02:23→09:08)
[2023-04-22 05:59] LABS: Glucose,Whole Blood 155 mg/dL (70-110)
[2023-04-22] MEDS: INSULIN ASPART (NovoLOG) 100 UNIT/ML VIAL SQ SCH ×3 (06:43→11:27)
[2023-04-22] MEDS: carvediloL 6.25 MG TAB PO SCH ×2 (06:43→11:26)
[2023-04-22] MEDS: LEVOTHYROXINE 100 MCG TAB PO SCH (06:43)
[2023-04-22] MEDS: FOLIC ACID-VIT B COMPLEX-VIT C 1 CAP PO SCH (09:07)
[2023-04-22] MEDS: PANTOPRAZOLE 40 MG/10 ML VIAL IVP SCH (09:07)
[2023-04-22] MEDS: APIXABAN 2.5 MG TABLET PO SCH (09:07)
[2023-04-22] MEDS: TICAGRELOR 90 MG TAB PO SCH (09:07)
[2023-04-22] MEDS: CALCIUM CARBONATE 500 MG CHEWABLE PO SCH ×2 (09:07→11:26)
[2023-04-22] MEDS: FLUoxetine HCL 20 MG CAP PO SCH (09:08)
[2023-04-22] MEDS: LORazepam 1 MG TAB PO PRN (09:12)
[2023-04-22] MEDS: NYSTATIN 100,000 UNIT/GM POWD 15 GM TOPICAL SCH (09:15)
[2023-04-22] MEDS: ASPIRIN 81 MG PO SCH (09:15)
[2023-04-22 09:29] VITALS: BP 113/61; PULSE 62; RESP 18; TEMP 97.9
--- NOTE | 2023-04-22 10:47 | P.DS ---
Providers Date of admission: 04/18/23 14:09 Expected date of discharge: 04/22/23 Attending physician: Gwen Mcknight Consults: 04/18/23 14:07 Consult Physician Stat Consulting Provider: Micheal Cox Consult Reason/Comments: STEMI Do you want consulting provider notified?: Already Contacted 04/18/23 15:43 Consult Physician Urgent Consulting Provider: Chacho Dove Consult Reason/Comments: POST STEMI, HD T/TH/SAT Do you want consulting provider notified?: Already Contacted 04/18/23 15:51 Consult Physician Routine Consulting Provider: Micheal Cox Consult Reason/Comments: Post Interventional Patient Do you want consulting provider notified?: Already Contacted 04/18/23 19:06 Consult Physician Routine Consulting Provider: Diane Madera Consult Reason/Comments: Known to patient, management of ABX Do you want consulting provider notified?: Yes Primary care physician: [facility] Course: Discharge diagnoses; STEMI Coronary artery disease with previous stenting of the RCA, 2020 Paroxysmal atrial fibrillation End-stage renal disease on hemodialysis Hypertension Hyperlipidemia History of pericardial effusion with tamponade, status post pericardial window, 2020 History of CVA History of amputations of his fingers on left hand secondary to osteomyelitis Hospital course; 62-year-old gentleman with past medical history significant for hypertension, hyperlipidemia, coronary artery disease with previous stenting of the RCA in 2020, paroxysmal atrial fibrillation, pericardial effusion with tamponade status post pericardial window in 2020, end-stage renal disease on hemodialysis, and amputations of fingers on his left hand secondary to osteomyelitis presented to the ER for chest pain. Chest pain started around noon, was left-sided, radiating to left arm. Denies any shortness of breath as well as chest pain. Denies any nausea or vomiting. This chest pain was similar to previous episodes of heart attack. Patient became concerned and came to the ER Initial lab work done in the ER showed the previous 2.7, hemoglobin 11.7, platelet count 146, sodium 1:30, potassium 4.4, BUN 50, creatinine 4.96 EKG done in the ER showed ST segment elevation in V2 to V6 and lead 2 and 3. Patient was evaluated by cardiology in the ER and was taken for emergent cardiac cath 04/20. Patient seen and examined. Patient had one episode of hematuria, repeat urination did not have any blood in it. 8/10/. Patient seen and examined. Patient was undergoing hemodialysis today. Denies any episodes of chest pain. Hematuria resolved 04/22. Patient seen and examined. Doing much better. Cardiology and nephrology has cleared the patient for discharge. Patient resumed back on prior home oral antibiotics per ID PHYSICAL EXAMINATION: GENERAL: The patient is alert and oriented x3, not in any acute distress. Well developed, well nourished. HEENT: Pupils are round and equally reacting to light. EOMI. No scleral icterus. No conjunctival pallor. Normocephalic, atraumatic. No pharyngeal erythema. No thyromegaly. CARDIOVASCULAR: S1 and S2 present. No murmurs, rubs, or gallops. PULMONARY: Chest is clear to auscultation, no wheezing or crackles. ABDOMEN: Soft, nontender, nondistended, normoactive bowel sounds. No palpable organomegaly. MUSCULOSKELETAL: Right hand amputation of fingers seen EXTREMITIES: No cyanosis, clubbing, or pedal edema. NEUROLOGICAL: Gross neurological examination did not reveal any focal deficits. SKIN: No rashes. Dictation was produced using [employer] dictation software. please excuse any grammatical, word or spelling errors. Patient Condition at Discharge: Good Plan - Discharge Summary Discharge Rx Participant: No New Discharge Prescriptions: New Ticagrelor [Brilinta] 90 mg PO BID #60 tab Aspirin 81 mg PO DAILY #30 tab Atorvastatin [Lipitor] 80 mg PO HS #30 tab Midodrine [ProAmatine] 10 mg PO AC-TID PRN #21 tab PRN Reason: Blood Pressure - Low Continue Levothyroxine Sodium 100 mcg PO DAILY Torsemide [Demadex] 40 mg PO DAILY Bryanna-Olimpia 1 tab PO DAILY Insulin Regular, Human [Novolin R Flexpen] 15 unit SQ ACHS PRN PRN Reason: Blood Sugar - High HYDROcodone/APAP 10-325MG [[place] 10-325] 1 tab PO Q6H FLUoxetine HCL [PROzac] 40 mg PO DAILY 30 Days #30 cap Acetaminophen Tab [Tylenol] 650 mg PO Q6HR PRN tab PRN Reason: Mild Pain Or Fever > 100.5 methocarbamoL [Robaxin] 500 - 1,000 mg PO QID PRN PRN Reason: Pain Cephalexin [Keflex] 500 mg PO Q12HR Calcium Carbonate [Tums] 1,000 mg PO AC-TID Nitroglycerin Sl Tabs [Nitrostat] 0.4 mg SL Q5M PRN PRN Reason: Chest Pain carvediloL [Coreg] 6.25 mg PO BID-W/MEALS #60 tab Apixaban [Eliquis] 2.5 mg PO BID Insulin Detemir (Levemir) [Levemir] 20 unit SQ HS 30 Days #5 each metroNIDAZOLE [Flagyl] 500 mg PO TID #42 tab Discontinued Atorvastatin [Lipitor] 40 mg PO HS #30 tab lisinopriL [Zestril] 5 mg PO HS Discharge Medication List Levothyroxine Sodium 100 mcg PO DAILY 07/06/17 [History] Torsemide [Demadex] 40 mg PO DAILY 09/10/19 [History] Bryanna-Olimpia 1 tab PO DAILY 10/20/20 [History] HYDROcodone/APAP 10-325MG [[place] 10-325] 1 tab PO Q6H 11/24/20 [History] Insulin Regular, Human [Novolin R Flexpen] 15 unit SQ ACHS PRN 11/24/20 [History] Nitroglycerin Sl Tabs [Nitrostat] 0.4 mg SL Q5M PRN 03/11/21 [History] carvediloL [Coreg] 6.25 mg PO BID-W/MEALS #60 tab 08/09/22 [Rx] FLUoxetine HCL [PROzac] 40 mg PO DAILY 30 Days #30 cap 10/16/22 [Rx] Apixaban [Eliquis] 2.5 mg PO BID 02/16/23 [History] Acetaminophen Tab [Tylenol] 650 mg PO Q6HR PRN tab 02/21/23 [Rx] Insulin Detemir (Levemir) [Levemir] 20 unit SQ HS 30 Days #5 each 02/21/23 [Rx] metroNIDAZOLE [Flagyl] 500 mg PO TID #42 tab 02/21/23 [Rx] Calcium Carbonate [Tums] 1,000 mg PO AC-TID 04/18/23 [History] Cephalexin [Keflex] 500 mg PO Q12HR 04/18/23 [History] methocarbamoL [Robaxin] 500 - 1,000 mg PO QID PRN 04/18/23 [History] Aspirin 81 mg PO DAILY #30 tab 04/22/23 [Rx] Atorvastatin [Lipitor] 80 mg PO HS #30 tab 04/22/23 [Rx] Midodrine [ProAmatine] 10 mg PO AC-TID PRN #21 tab 04/22/23 [Rx] Ticagrelor [Brilinta] 90 mg PO BID #60 tab 04/22/23 [Rx] Follow up Appointment(s)/Referral(s): Vikas Jimenez DO [STAFF PHYSICIAN] - 1 Week Hayes Oshea [Primary Care Provider] - 1-2 days [facility] Visiting Nurse, [NON-STAFF] - As Needed Patient Instructions/Handouts: Heart Attack (DC), Safe Use of Antiplatelet Medication (DC) Discharge Disposition: HOME SELF-CARE
--- NOTE | 2023-04-22 11:16 | P.PN ---
Subjective Patient is seen in follow-up for end-stage renal disease. He is maintained on hemodialysis on Tuesday schedule. No problems with dialysis yesterday. Hemodynamically stable. No active complaints at this time. Vital signs are stable. General: No acute distress. HEENT: Head exam is unremarkable. LUNGS: No audible rhonchi or wheezes. HEART: Rate and Rhythm are regular. ABDOMEN: Nontender. EXTREMITITES: No edema. Finger amputation is noted. Objective - Vital Signs Vital signs: Vital Signs Temp 97.9 F 04/22/23 09:28 Pulse 62 04/22/23 09:28 Resp 18 04/22/23 09:28 BP 113/61 04/22/23 09:28 Pulse Ox 99 04/22/23 09:28 FiO2 Intake & Output 04/21/23 04/22/23 04/22/23 18:59 06:59 18:59 Intake Total 860 128 Output Total 1999 25 50 Balance -1140 -25 78 Weight 126.7 kg Intake: IV 10 Invasive Line 1 10 Oral 360 118 Hemodialysis 500 Output: Urine 25 50 Hemodialysis 2000 Other: Voiding Method Urinal Urinal Urinal # Voids 0 - Labs CBC & Chem 7: 04/21/23 07:54 04/21/23 07:54 Labs: Abnormal Lab Results - Last 24 Hours (Table) 04/21/23 04/21/23 04/21/23 Range/Units 11:32 16:24 20:00 ESR (0-15) mm/hr POC Glucose (mg/dL) 153 H 184 H 168 H (70-110) mg/dL C-Reactive Protein (<1.0) mg/dL 04/22/23 04/22/23 04/22/23 Range/Units 05:58 06:05 06:05 ESR 107 H (0-15) mm/hr POC Glucose (mg/dL) 155 H (70-110) mg/dL C-Reactive Protein 5.0 H (<1.0) mg/dL Assessment and Plan Plan: Assessment: 1. End-stage renal disease maintained on hemodialysis on Tuesday schedule via left upper extremity AV fistula. 2. Acute anterior wall [place] status post LAD and circumflex stenting. 3. Diabetes mellitus. 4. Chronic kidney disease mineral bone disease. Phosphorus level 6.2 dated 04/19/2023. On Tums. 5. Hypotension maintained on midodrine. Lisinopril discontinued. 6. Left hand osteomyelitis with multiple limitations on antibiotics. Plan: Hemodialysis tomorrow. Maintain midodrine as needed. Possible discharge today.
--- NOTE | 2023-04-22 11:17 | P.PN ---
Subjective HISTORY OF PRESENT ILLNESS: This is a 62-year-old male with a past medical history significant for hypertension, hyperlipidemia, coronary artery disease with previous stenting of the RCA in 2020, paroxysmal atrial fibrillation, pericardial effusion with tamponade status post pericardial window in 2020, end-stage renal disease on hemodialysis, and amputations of fingers on his left hand secondary to osteomyelitis. Patient follows in the office with Dr. Jimenez. We have been asked to see the patient in consultation for STEMI. Patient examined at the bedside in the emergency room with Dr. Coello. Patient states he woke up this morning and was not feeling well. He reports having some nausea. He states later in the morning he developed chest pain. He states the pain was in the middle of his chest and felt like a pressure type sensation. He reports radiation down his left arm. EKG was performed revealing ST elevation in V2-V6. It is noted that the patient underwent a cardiac catheterization in October 2020 with stenting of the mid RCA. He also underwent Lexiscan stress test in July 2022 which was negative for ischemia. 04/21/2023 Patient is status post cardiac catheterization with stenting of the mid LAD, mid to distal LAD, and diagonal 1. Patient examined this morning. He has been transferred out of the intensive care unit. He is currently undergoing hemodialysis. He denies chest pain or pressure. He does report some mild shortness of breath when he is laying flat. Hematuria has resolved. He remains on triple therapy. Patient's blood pressure was low overnight with a reading of 84/42. Blood pressure improved this morning with a reading of 143/58. 04/22/2023 patient examined this morning at the bedside. He is sitting on the side of the bed. He denies chest pain or pressure. He currently denies shortness of breath. He does report mild shortness of breath when he is laying flat in bed. Patient's vital signs are stable. Blood pressure 113/61. PHYSICAL EXAM: VITAL SIGNS: Reviewed. GENERAL: Well-developed in no acute distress. HEENT: Head is normocephalic. Pupils are equal, round. Sclerae anicteric. Mucous membranes of the mouth are moist. Neck supple. No JVD or thyromegaly LUNGS: Respirations even and unlabored. Lungs essentially clear to auscultation bilaterally. HEART: Regular rate and rhythm. S1 and S2 heard. ABDOMEN: Soft. Nondistended. Nontender. EXTREMITIES: Amputations of left fingers noted. Normal range of motion. No clubbing or cyanosis. Peripheral pulses intact. No lower extremity edema NEUROLOGIC: Awake and alert. Oriented x 3. ASSESSMENT: STEMI, status post stenting of LAD and diagonal Coronary artery disease with previous stenting of the RCA, 2020 Paroxysmal atrial fibrillation End-stage renal disease on hemodialysis Hypertension Hyperlipidemia History of pericardial effusion with tamponade, status post pericardial window, 2020 History of CVA History of amputations of his fingers on left hand secondary to osteomyelitis Hematuria, resolved PLAN: Continue current cardiac medications Patient is stable for discharge home today from a cardiac standpoint Patient is to follow up post discharge with Dr. Jimenez Nurse practitioner note has been reviewed by physician. Signing provider agrees with the documented findings, assessment, and plan of care. Objective - Vital Signs Vital signs: Vital Signs Temp 97.9 F 04/22/23 09:28 Pulse 62 04/22/23 09:28 Resp 18 04/22/23 09:28 BP 113/61 04/22/23 09:28 Pulse Ox 99 04/22/23 09:28 FiO2 Intake & Output 04/21/23 04/22/23 04/22/23 18:59 06:59 18:59 Intake Total 860 128 Output Total 1999 25 50 Balance -1140 -25 78 Weight 126.7 kg Intake: IV 10 Invasive Line 1 10 Oral 360 118 Hemodialysis 500 Output: Urine 25 50 Hemodialysis 2000 Other: Voiding Method Urinal Urinal Urinal # Voids 0 - Labs CBC & Chem 7: 04/21/23 07:54 04/21/23 07:54 Labs: Abnormal Lab Results - Last 24 Hours (Table) 04/21/23 04/21/23 04/21/23 Range/Units 11:32 16:24 20:00 ESR (0-15) mm/hr POC Glucose (mg/dL) 153 H 184 H 168 H (70-110) mg/dL C-Reactive Protein (<1.0) mg/dL 04/22/23 04/22/23 04/22/23 Range/Units 05:58 06:05 06:05 ESR 107 H (0-15) mm/hr POC Glucose (mg/dL) 155 H (70-110) mg/dL C-Reactive Protein 5.0 H (<1.0) mg/dL
== END 2023-04-22 11:31 | disposition home or self-care (01) | DRG 246 ==
LOC: EC 13:31 → 2SICU 14:09 → 3SCARD 04-20 18:25
PROVIDERS: ADMIT Hospitalist; ATTEND Hospitalist
PROC: 4A023N7 Measurement of Cardiac Sampling and Pressure, Left Heart, Percutaneous Approach (ICD-10-PCS; principal; 2023-04-18 14:01)
PROC: 027136Z Dilation of Coronary Artery, Two Arteries with Three Drug-eluting Intraluminal Devices, Percutaneous Approach (ICD-10-PCS; 2023-04-18 14:01)
PROC: B2111ZZ Fluoroscopy of Multiple Coronary Arteries using Low Osmolar Contrast (ICD-10-PCS; 2023-04-18 14:01)
PROC: 5A1D70Z Performance of Urinary Filtration, Intermittent, Less than 6 Hours Per Day (ICD-10-PCS; 2023-04-19)
DX: I21.02 ST elevation (STEMI) myocardial infarction involving left anterior descending coronary artery (principal); N18.6 End stage renal disease; I13.2 Hypertensive heart and chronic kidney disease with heart failure and with stage 5 chronic kidney disease, or end stage renal disease; M86.8X4 Other osteomyelitis, hand; E11.319 Type 2 diabetes mellitus with unspecified diabetic retinopathy without macular edema; E11.22 Type 2 diabetes mellitus with diabetic chronic kidney disease; E11.42 Type 2 diabetes mellitus with diabetic polyneuropathy; E11.69 Type 2 diabetes mellitus with other specified complication; I25.119 Atherosclerotic heart disease of native coronary artery with unspecified angina pectoris; I48.0 Paroxysmal atrial fibrillation; I21.09 ST elevation (STEMI) myocardial infarction involving other coronary artery of anterior wall; Z99.2 Dependence on renal dialysis; I95.9 Hypotension, unspecified; I50.9 Heart failure, unspecified; Z91.199 Patient's noncompliance with other medical treatment and regimen due to unspecified reason; E03.9 Hypothyroidism, unspecified; I34.0 Nonrheumatic mitral (valve) insufficiency; G47.33 Obstructive sleep apnea (adult) (pediatric); E78.5 Hyperlipidemia, unspecified; H54.7 Unspecified visual loss; M89.8X9 Other specified disorders of bone, unspecified site; S61.200A Unspecified open wound of right index finger without damage to nail, initial encounter; R31.9 Hematuria, unspecified; I25.5 Ischemic cardiomyopathy; Z95.5 Presence of coronary angioplasty implant and graft; Z86.73 Personal history of transient ischemic attack (TIA), and cerebral infarction without residual deficits; Z89.022 Acquired absence of left finger(s); Z87.39 Personal history of other diseases of the musculoskeletal system and connective tissue; Z86.79 Personal history of other diseases of the circulatory system; I25.2 Old myocardial infarction; Z86.14 Personal history of Methicillin resistant Staphylococcus aureus infection; Z98.84 Bariatric surgery status; Z87.891 Personal history of nicotine dependence; Z79.899 Other long term (current) drug therapy; Z79.890 Hormone replacement therapy; Z79.4 Long term (current) use of insulin; Z79.891 Long term (current) use of opiate analgesic; Z79.01 Long term (current) use of anticoagulants; Z82.49 Family history of ischemic heart disease and other diseases of the circulatory system; Z82.3 Family history of stroke
CPT/HCPCS: 36415; 71045; 76937; 80048; 80053; 83036; 83735; 84100; 84484; 85025; 85610; 85652; 85730; 86140; 90935; 93005; 93306; 94760; 99291

== ENCOUNTER 2023-04-22 15:24 | Inpatient (IN) | payer MEDICARE, BC ==
--- NOTE | 2023-04-22 16:02 | ED ---
General Adult HPI - General Chief complaint: Shortness of Breath Stated complaint: Chest Pain, SOB Time Seen by Provider: 04/22/23 15:35 Source: patient Mode of arrival: ambulatory Limitations: no limitations - History of Present Illness Initial comments: Dictation was produced using [employer] dictation software. please excuse any grammatical, word or spelling errors. Chief Complaint: 62-year-old male with multiple comorbidities presents to the emergency department for dyspnea History of Present Illness: She 62-year-old male presents emergency department for dyspnea he was recently admitted to the hospital for myocardial infarction he had multiple stents placed. Patient's history of ESRD. States that Tuesday and he did not have his usual dialysis treatment. He was discharged around noon today. He went home and tried to lay flat when he became short of breath. Set up and shortness of breath improved. Then he tried to lay back down came dyspneic and. Patient also dyspneic whenever he tries to walk around. States that he has sharp pain in his right shoulder. The ROS documented in this emergency department record has been reviewed and confirmed by me. Those systems with pertinent positive or negative responses have been documented in the HPI. All other systems are other negative and/or noncontributory. - Related Data Home Medications Medication Instructions Recorded Confirmed Levothyroxine Sodium 100 mcg PO DAILY 07/06/17 04/18/23 Torsemide [Demadex] 40 mg PO DAILY 09/10/19 04/18/23 Bryanna-Olimpia 1 tab PO DAILY 10/20/20 04/18/23 HYDROcodone/APAP 10-325MG [[place] 1 tab PO Q6H 11/24/20 04/18/23 10-325] Insulin Regular, Human [Novolin R 15 unit SQ ACHS PRN 11/24/20 04/18/23 Flexpen] Nitroglycerin Sl Tabs [Nitrostat] 0.4 mg SL Q5M PRN 03/11/21 04/18/23 Apixaban [Eliquis] 2.5 mg PO BID 02/16/23 04/18/23 Calcium Carbonate [Tums] 1,000 mg PO AC-TID 04/18/23 04/18/23 Cephalexin [Keflex] 500 mg PO Q12HR 04/18/23 04/18/23 methocarbamoL [Robaxin] 500 - 1,000 mg PO QID PRN 04/18/23 04/18/23 Previous Rx's Medication Instructions Recorded carvediloL [Coreg] 6.25 mg PO BID-W/MEALS #60 tab 08/09/22 FLUoxetine HCL [PROzac] 40 mg PO DAILY 30 Days #30 cap 10/16/22 Acetaminophen Tab [Tylenol] 650 mg PO Q6HR PRN tab 02/21/23 Insulin Detemir (Levemir) [Levemir] 20 unit SQ HS 30 Days #5 each 02/21/23 metroNIDAZOLE [Flagyl] 500 mg PO TID #42 tab 02/21/23 Aspirin 81 mg PO DAILY #30 tab 04/22/23 Atorvastatin [Lipitor] 80 mg PO HS #30 tab 04/22/23 Midodrine [ProAmatine] 10 mg PO AC-TID PRN #21 tab 04/22/23 Ticagrelor [Brilinta] 90 mg PO BID #60 tab 04/22/23 Allergies Allergy/AdvReac Type Severity Reaction Status Date / Time No Known Allergies Allergy Verified 04/22/23 15:30 Review of Systems ROS Statement: Those systems with pertinent positive or pertinent negative responses have been documented in the HPI. ROS Other: All systems not noted in ROS Statement are negative. Past Medical History Past Medical History: Coronary Artery Disease (CAD), Cancer, Heart Failure, CVA/TIA, Diabetes Mellitus, Eye Disorder, Hypertension, Myocardial Infarction (OR), Renal Disease, Sleep Apnea/CPAP/BIPAP, Thyroid Disorder Additional Past Medical History / Comment(s): unhealing sore left index finger, neuropathy bilateral lower extremity/feet, bilateral eye diabetic retinopathy/poor vision/multiple injections, ESRD with hemodialysis T/TH/SAT from 6:15 to 11:00, anemia, "mini strokes" x2, AVANI with CPap use, occasional low back pain/disc disease, gout, hypothyroid Last Myocardial Infarction Date:: 10/20/20 History of Any Multi-Drug Resistant Organisms: MRSA Date of last positivie culture/infection: 12/10/21 MDRO Source:: Finger-Right 5th Past Surgical History: Adenoidectomy, Bariatric Surgery, Cholecystectomy, Heart Catheterization, Heart Catheterization With Stent, Orthopedic Surgery, Tonsillectomy Additional Past Surgical History / Comment(s): 10/22/20 PCI with stents x2, lap banding, FX of right ankle repair pins / plate, fistual lt arm jul 2018, lt shoulder sx (d/t separation), colonoscopies, bilateral cataract removals/lens implants. LIF surgery 08/11/21 R LEG stacey placed January 2023 Past Anesthesia/Blood Transfusion Reactions: Motion Sickness Additional Past Anesthesia/Blood Transfusion Reaction / Comment(s): CLAUSTERPHOBIA Date of Last Stent Placement:: 10/22/20 Past Psychological History: Anxiety Smoking Status: Former smoker Past Alcohol Use History: None Reported Past Drug Use History: None Reported - Past Family History Mother History Unknown: Yes Family Medical History: Coronary Artery Disease (CAD), Myocardial Infarction (OR) Additional Family Medical History / Comment(s): Mother at age 58 from multiple sclerosis Father Family Medical History: CVA/TIA, Myocardial Infarction (OR) Additional Family Medical History / Comment(s): Father had history of OR and CVA followed by a second OR and CVA and at age 65. Brother(s) Additional Family Medical History / Comment(s): . General Exam - General Exam Comments Initial Comments: PHYSICAL EXAM: General Impression: Alert and oriented x3, not in acute distress HEENT: Normocephalic atraumatic, extra-ocular movements intact, pupils equal and reactive to light bilaterally, mucous membranes moist. Cardiovascular: Heart regular rate and rhythm Chest: Able to complete full sentences, no retractions, no tachypnea, clear to auscultation bilaterally Abdomen: abdomen soft, non-tender, non-distended, no organomegaly Musculoskeletal: Pulses present and equal in all extremities, no peripheral edema, multiple missing digits to both hands Motor: no focal deficits noted Neurological: CN II-XII grossly intact, no focal motor or sensory deficits noted Skin: Intact with no visualized rashes Psych: Normal affect and mood Limitations: no limitations Course Vital Signs 04/22/23 04/22/23 04/22/23 15:28 15:58 16:16 Temperature 97.8 F Pulse Rate 90 Respiratory 22 18 Rate Blood Pressure 123/72 O2 Sat by Pulse 100 100 Oximetry EKG Findings - EKG Comments: EKG Findings:: My EKG interpretation: Ventricular rate 89, NC interval 114, QRS 104, QTC 425,. No NC prolongation, no QTC prolongation, no ST or T-wave changes noted. Overall, this EKG is unremarkable Medical Decision Making - Medical Decision Making Was pt. sent in by a medical professional or institution (, LEANN, ENTRY EXAMINER, urgent care, hospital, or usp...) When possible be specific @ -No Did you speak to anyone other than the patient for history (EMS, parent, family, police, friend...)? What history was obtained from this source @ -No Did you review nursing and triage notes (agree or disagree)? Why? @ -I reviewed and agree with nursing and triage notes Were old charts reviewed (outside hosp., previous admission, EMS record, old EKG, old radiological studies, urgent care reports/EKG's, usp records)? Report findings @ -recent discharge summary is reviewed showing the patient was recently admitted for MRI. Recent echocardiogram shows 25% Differential Diagnosis (chest pain, altered mental status, abdominal pain women, abdominal pain men, vaginal bleeding, musculoskeletal, weakness, fever, dyspnea, syncope, headache, dizziness, GI bleed, back pain, seizure, CVA, palpatations, mental health)? @ -Differential Dyspnea: Coronary syndrome, arrhythmia, tamponade, asthma, COPD, pulmonary embolism, pneumonia, pneumothorax, pulmonary effusion, anaphylaxis, diabetic ketoacidosis, flailed chest, pulmonary contusion, diaphragmatic rupture, anemia, neuromuscular, this is not meant to be an all-inclusive list. EKG interpreted by me (3pts min.). @ -See above X-rays interpreted by me (1pt min.). @ -Chest x-ray shows no acute processes CT interpreted by me (1pt min.). @ -None done U/S interpreted by me (1pt. min.). @ -None done What testing was considered but not performed or refused? (CT, X-rays, U/S, labs)? Why? @ -None What meds were considered but not given or refused? Why? @ -None Did you discuss the management of the patient with other professionals (professionals i.e. LEANN Garcia, ENTRY EXAMINER, lab, RT, psych nurse, social services analyst, edm operator, teacher, traffic maintenance officer, assistant case manager)? Give summary @ -Case discussed with Dr. Middleton for admission Was smoking cessation discussed for >3mins.? @ -No Was critical care preformed (if so, how long)? @ -No Were there social determinants of health that impacted care today? How? (Homelessness, low income, unemployed, alcoholism, drug addiction, transportation, low edu. Level, literacy, decrease access to med. care, shelter, rehab)? @ -No Was there de-escalation of care discussed even if they declined (Discuss DNR or withdrawal of care, Hospice)? DNR status @ -No What co-morbidities impacted this encounter? (DM, HTN, Smoking, COPD, CAD, Cancer, CVA, ARF, Chemo, Hep., AIDS, mental health diagnosis, sleep apnea, morbid obesity)? @ -None Was patient admitted / discharged? Hospital course, mention meds given and route, prescriptions, significant lab abnormalities, going to OR and other pertinent info. @ -62-year-old male presents emergency department for symptoms of concern for heart failure. His past medical history of ESRD. Vital signs upon arrival are within acceptable limits. Patient be admitted for further monitoring. Laboratory evaluation obtained. CBC within acceptable limits. Coag panel is negative. Metabolic panel is is within acceptable limits. Troponin is 8.41 this is secondary to cardiac catheterization with stent placement. His BNP is 59,900. Undiagnosed new problem with uncertain prognosis? @ -No Drug Therapy requiring intensive monitoring for toxicity (Heparin, Nitro, Insulin, Cardizem)? @ -No Were any procedures done? @ -No Diagnosis/symptom? Acute, or Chronic, or Acute on Chronic? Uncomplicated (without systemic symptoms) or Complicated (systemic symptoms)? @ -1. Dyspnea Side effects of treatment? @ -No Exacerbation, Progression, or Severe Exacerbation? @ -No Poses a threat to life or bodily function? How? (Chest pain, USA, OR, pneumonia, PE, COPD, DKA, ARF, appy, cholecystitis, CVA, Diverticulitis, Homicidal, Suicidal, threat to staff... and all critical care pts) @ -No - Lab Data Result diagrams: 04/22/23 15:58 04/22/23 15:58 Lab Results 04/22/23 04/22/23 04/22/23 Range/Units 15:58 15:58 15:58 WBC 11.2 H (3.8-10.6) k/uL RBC 3.21 L (4.30-5.90) m/uL Hgb 10.8 L (13.0-17.5) gm/dL Hct 31.5 L (39.0-53.0) % MCV 98.2 (80.0-100.0) fL MCH 33.6 (25.0-35.0) pg MCHC 34.3 (31.0-37.0) g/dL RDW 14.8 (11.5-15.5) % Plt Count 135 L (150-450) k/uL MPV 8.0 Neutrophils % 84 % Lymphocytes % 8 % Monocytes % 4 % Eosinophils % 3 % Basophils % 0 % Neutrophils # 9.4 H (1.3-7.7) k/uL Lymphocytes # 0.8 L (1.0-4.8) k/uL Monocytes # 0.5 (0-1.0) k/uL Eosinophils # 0.3 (0-0.7) k/uL Basophils # 0.1 (0-0.2) k/uL PT 10.2 (9.0-12.0) sec INR 1.0 (<1.2) APTT 31.5 H (22.0-30.0) sec Sodium 132 L (137-145) mmol/L Potassium 4.3 (3.5-5.1) mmol/L Chloride 91 L (98-107) mmol/L Carbon Dioxide 27 (22-30) mmol/L Anion Gap 14 mmol/L BUN 34 H (9-20) mg/dL Creatinine 4.83 H (0.66-1.25) mg/dL Est GFR (CKD-EPI)AfAm 14 (>60 ml/min/1.73 sqM) Est GFR (CKD-EPI)NonAf 12 (>60 ml/min/1.73 sqM) Glucose 255 H (74-99) mg/dL Calcium 8.6 (8.4-10.2) mg/dL Total Bilirubin 0.7 (0.2-1.3) mg/dL AST 31 (17-59) U/L ALT 21 (4-49) U/L Alkaline Phosphatase 84 (38-126) U/L CK-MB (CK-2) (0.0-3.4) ng/mL Troponin I (0.000-0.034) ng/mL NT-Pro-B Natriuret Pep 73581 pg/mL Total Protein 7.1 (6.3-8.2) g/dL Albumin 3.6 (3.5-5.0) g/dL 04/22/23 Range/Units 15:58 WBC (3.8-10.6) k/uL RBC (4.30-5.90) m/uL Hgb (13.0-17.5) gm/dL Hct (39.0-53.0) % MCV (80.0-100.0) fL MCH (25.0-35.0) pg MCHC (31.0-37.0) g/dL RDW (11.5-15.5) % Plt Count (150-450) k/uL MPV Neutrophils % % Lymphocytes % % Monocytes % % Eosinophils % % Basophils % % Neutrophils # (1.3-7.7) k/uL Lymphocytes # (1.0-4.8) k/uL Monocytes # (0-1.0) k/uL Eosinophils # (0-0.7) k/uL Basophils # (0-0.2) k/uL PT (9.0-12.0) sec INR (<1.2) APTT (22.0-30.0) sec Sodium (137-145) mmol/L Potassium (3.5-5.1) mmol/L Chloride (98-107) mmol/L Carbon Dioxide (22-30) mmol/L Anion Gap mmol/L BUN (9-20) mg/dL Creatinine (0.66-1.25) mg/dL Est GFR (CKD-EPI)AfAm (>60 ml/min/1.73 sqM) Est GFR (CKD-EPI)NonAf (>60 ml/min/1.73 sqM) Glucose (74-99) mg/dL Calcium (8.4-10.2) mg/dL Total Bilirubin (0.2-1.3) mg/dL AST (17-59) U/L ALT (4-49) U/L Alkaline Phosphatase (38-126) U/L CK-MB (CK-2) 1.8 (0.0-3.4) ng/mL Troponin I 8.410 H* (0.000-0.034) ng/mL NT-Pro-B Natriuret Pep pg/mL Total Protein (6.3-8.2) g/dL Albumin (3.5-5.0) g/dL Disposition Clinical Impression: Dyspnea Disposition: ADMITTED IP TO THIS HOSP Condition: Fair Referrals: Hayes Oshea [Primary Care Provider] - 1-2 days Decision Time: 17:15
[2023-04-22 16:06] LABS: Basophils # (A) 0.1 k/uL (0-0.2); Basophils % (A) 0 %; Eosinophils # (A) 0.3 k/uL (0-0.7); Eosinophils % (A) 3 %; HCT 31.5 % (39.0-53.0); HGB 10.8 gm/dL (13.0-17.5); Lymphocytes # (A) 0.8 k/uL (1.0-4.8); Lymphocytes % (A) 8 %; MCH 33.6 pg (25.0-35.0); MCHC 34.3 g/dL (31.0-37.0); MCV 98.2 fL (80.0-100.0); Monocytes # (A) 0.5 k/uL (0-1.0); Monocytes % (A) 4 %; Neutrophils # (A) 9.4 k/uL (1.3-7.7); Neutrophils % (A) 84 %; Platelet Count 135 k/uL (150-450); RBC 3.21 m/uL (4.30-5.90); RDW 14.8 % (11.5-15.5); WBC 11.2 k/uL (3.8-10.6)
[2023-04-22 16:11] LABS: ALT 21 U/L (4-49); AST 31 U/L (17-59); African American GFR (CKD) 14 (>60 ml/min/1.73 sqM); Albumin 3.6 g/dL (3.5-5.0); Alkaline Phosphatase 84 U/L (38-126); Anion Gap 14 mmol/L; Blood Urea Nitrogen 34 mg/dL (9-20); Calcium 8.6 mg/dL (8.4-10.2); Carbon Dioxide 27 mmol/L (22-30); Chloride 91 mmol/L (98-107); Glucose 255 mg/dL (74-99); Non-African American GFR(CKD) 12 (>60 ml/min/1.73 sqM); Potassium 4.3 mmol/L (3.5-5.1); Sodium 132 mmol/L (137-145); Total Bilirubin 0.7 mg/dL (0.2-1.3); Total Protein 7.1 g/dL (6.3-8.2)
[2023-04-22 16:15] LABS: Partial Thromboplastin Time 31.5 sec (22.0-30.0); Prothrombin Time 10.2 sec (9.0-12.0)
[2023-04-22 16:22] LABS: Creatine Kinase MB 1.8 ng/mL (0.0-3.4)
[2023-04-22 16:24] LABS: Troponin I 8.41 ng/mL (0.000-0.034)
[2023-04-22 16:41] LABS: NT-Pro-B-Type Natriuretic Pept 59900 pg/mL
--- NOTE | 2023-04-22 16:42 | XR ---
EXAMINATION TYPE: XR chest 2V DATE OF EXAM: 04/22/2023 COMPARISON: 04/18/2023 HISTORY: Shortness of breath TECHNIQUE: Frontal and lateral views of the chest are obtained. FINDINGS: Scattered senescent parenchymal changes noted. Hyperinflation compatible with COPD. . Patchy basilar densities may reflect underlying pneumonia. No evidence for infiltrate. No evidence for atelectasis. Heart size is stable. Mediastinal structures are stable and grossly unremarkable. No evidence for hilar prominence. Degenerative changes dorsal spine. IMPRESSION: 1. Patchy basilar densities may reflect underlying pneumonia.
[2023-04-22] MEDS ORDERED: HYDROmorphone 0.5 MG/0.5 ML SYRINGE IVP STA (18:05)
[2023-04-22] MEDS ORDERED: NITROGLYCERIN SL TABS 0.4 MG TAB SUBLINGUAL PRN (21:54)
[2023-04-22] MEDS ORDERED: HYDROcodone/APAP 10-325MG 1 EACH TAB PO SCH (22:00)
[2023-04-22 22:35] LABS: Glucose,Whole Blood 297 mg/dL (70-110)
[2023-04-22] MEDS: MELATONIN 1 MG TAB PO PRN (22:37)
[2023-04-22] MEDS: HYDROcodone/APAP 10-325MG 1 EACH TAB PO PRN (22:38)
[2023-04-22] MEDS: APIXABAN 2.5 MG TABLET PO SCH (22:38)
[2023-04-22] MEDS: INSULIN DETEMIR (LEVEMIR) 100 UNIT/ML SYR SQ SCH (22:38)
[2023-04-22] MEDS: TICAGRELOR 90 MG TAB PO SCH (22:38)
[2023-04-22] MEDS: ATORVASTATIN 80 MG TAB PO SCH (22:38)
[2023-04-22] MEDS: MORPHINE SULFATE 2 MG/ML SYRINGE IVP PRN (23:27)
[2023-04-22] MEDS: LORazepam 0.5 MG TAB PO PRN (23:28)
[2023-04-23 05:48] LABS: Glucose,Whole Blood 183 mg/dL (70-110)
[2023-04-23] MEDS: carvediloL 6.25 MG TAB PO SCH ×2 (06:31→17:19)
[2023-04-23] MEDS: LEVOTHYROXINE 100 MCG TAB PO SCH (06:31)
[2023-04-23] MEDS: INSULIN ASPART (NovoLOG) 100 UNIT/ML VIAL SQ SCH ×4 (06:32→21:02)
[2023-04-23] MEDS: HYDROcodone/APAP 10-325MG 1 EACH TAB PO PRN ×3 (06:32→18:55)
[2023-04-23 08:42] LABS: Basophils % (A) 0 %; Eosinophils # (A) 0.3 k/uL (0-0.7); Eosinophils % (A) 3 %; HCT 31.4 % (39.0-53.0); HGB 10.4 gm/dL (13.0-17.5); Lymphocytes # (A) 0.7 k/uL (1.0-4.8); Lymphocytes % (A) 8 %; MCH 33.4 pg (25.0-35.0); MCHC 33.3 g/dL (31.0-37.0); MCV 100.4 fL (80.0-100.0); Macrocytosis Slight; Mean Platelet Volume 8.3; Monocytes # (A) 0.3 k/uL (0-1.0); Monocytes % (A) 4 %; Neutrophils # (A) 7.8 k/uL (1.3-7.7); Neutrophils % (A) 84 %; Platelet Count 127 k/uL (150-450); RBC 3.13 m/uL (4.30-5.90); RDW 15.3 % (11.5-15.5); WBC 9.3 k/uL (3.8-10.6)
[2023-04-23 09:03] LABS: ALT 19 U/L (4-49); AST 28 U/L (17-59); African American GFR (CKD) 11 (>60 ml/min/1.73 sqM); Albumin 3.4 g/dL (3.5-5.0); Alkaline Phosphatase 72 U/L (38-126); Anion Gap 15 mmol/L; Blood Urea Nitrogen 41 mg/dL (9-20); Calcium 8.4 mg/dL (8.4-10.2); Carbon Dioxide 27 mmol/L (22-30); Chloride 92 mmol/L (98-107); Glucose 127 mg/dL (74-99); Non-African American GFR(CKD) 10 (>60 ml/min/1.73 sqM); Potassium 4.5 mmol/L (3.5-5.1); Sodium 134 mmol/L (137-145); Total Bilirubin 0.7 mg/dL (0.2-1.3); Total Protein 6.7 g/dL (6.3-8.2)
[2023-04-23] MEDS: APIXABAN 2.5 MG TABLET PO SCH ×2 (10:08→21:02)
[2023-04-23] MEDS: TICAGRELOR 90 MG TAB PO SCH ×2 (10:08→21:02)
[2023-04-23] MEDS: MORPHINE SULFATE 2 MG/ML SYRINGE IVP PRN ×2 (10:09→17:26)
[2023-04-23] MEDS ORDERED: MIDODRINE 5 MG TAB PO PRN (10:46)
[2023-04-23] MEDS ORDERED: INSULIN REGULAR HUMAN 100 UNIT/ML SQ PRN (10:46)
[2023-04-23] MEDS ORDERED: INSULN SQ PRN (10:46)
[2023-04-23] MEDS: ASPIRIN 81 MG PO SCH (10:55)
[2023-04-23 11:31] VITALS: BMI 39.2
[2023-04-23 11:43] LABS: Glucose,Whole Blood 249 mg/dL (70-110)
[2023-04-23] MEDS ORDERED: CEPHALEXIN 500 MG CAP PO SCH (11:45)
[2023-04-23] MEDS: CALCIUM CARBONATE 500 MG CHEWABLE PO SCH ×2 (11:54→17:18)
--- NOTE | 2023-04-23 12:43 | P.CRDCN ---
History of Present Illness Consult date: 04/23/23 Consult reason: congestive heart failure History of present illness: The patient is a 62-year-old male with multiple comorbid conditions who follows in the office with Dr. Jimenez. He was recently admitted to the hospital with an ST elevated myocardial infarction where he underwent stenting of the LAD and diagonal. Yesterday he was discharged for outpatient follow-up, when he stopped at a local fast food restaurant for a burger and fries. Several hours later he developed worsening shortness of breath and orthopnea, therefore he came back to the emergency room. DIAGNOSTICS: EKG shows sinus mechanism with ST elevation in V2 through V5 Chest x-ray shows patchy basilar densities, suggesting underlying pneumonia Lab data: WBC 9.3, hemoglobin 4, hematocrit 31.4, platelet 127, sodium 134, potassium 4.5, BUN 41, creatinine 5.67, AST 20, ALT 19, troponin 8.4, BNP 59,900 REVIEW OF SYSTEMS: No fever or chills. No cough or expectoration. No diaphoresis. Patient denies headache, dizziness, blurred vision, double vision. Patient denies any stomach discomfort. No nausea, vomiting. No hematochezia. No hematemesis. Denies any black stools or blood in his stools. Denies dysuria or hematuria. No muscle weakness or numbness. Positive for shortness of breath. Positive for orthopnea PHYSICAL EXAMINATION: This is a 62-year-old male in no apparent distress at the time of my examination. HEENT: Head is atraumatic, normocephalic. Pupils are equal, round. Sclerae anicteric. Conjunctivae are clear. Mucous membranes of the mouth are moist. Neck is supple. There is no jugular venous distention. No carotid bruit is heard. CHEST EXAMINATION: Lungs are clear to auscultation. No chest wall tenderness is noted on palpation or with deep breathing. HEART EXAMINATION: Heart regular rate and rhythm. S1, S2 heard. No murmurs, gallops or rub. ABDOMEN: Soft, nontender. Bowel sounds are heard. No organomegaly noted. EXTREMITIES: 2+ peripheral pulses with no evidence of peripheral edema and no calf tenderness noted. NEUROLOGIC EXAMINATION: Patient is awake, alert and oriented x3. FINAL ASSESSMENT AND PLAN: Acute on chronic congestive heart failure exacerbation, systolic Recent ST elevated myocardial infarction with stenting to the LAD and first diagonal End-stage renal disease, on dialysis PLAN: May hold carvedilol prior to dialysis Maximize thereafter outpatient Strict low-sodium diet Further recommendations to be based on clinical course I am dictating on behalf of Dr Joel Swain's history/physical and assessment/plan. Past Medical History Past Medical History: Coronary Artery Disease (CAD), Cancer, Heart Failure, CVA/TIA, Diabetes Mellitus, Eye Disorder, Hypertension, Myocardial Infarction ([place]), Renal Disease, Sleep Apnea/CPAP/BIPAP, Thyroid Disorder Additional Past Medical History / Comment(s): unhealing sore left index finger, neuropathy bilateral lower extremity/feet, bilateral eye diabetic retinopathy/poor vision/multiple injections, ESRD with hemodialysis T/TH/SAT from 6:15 to 11:00, anemia, "mini strokes" x2, AVANI with CPap use, occasional low back pain/disc disease, gout, hypothyroid Last Myocardial Infarction Date:: 10/20/20 History of Any Multi-Drug Resistant Organisms: MRSA Date of last positivie culture/infection: 12/10/21 MDRO Source:: Finger-Right 5th Past Surgical History: Adenoidectomy, Bariatric Surgery, Cholecystectomy, Heart Catheterization, Heart Catheterization With Stent, Orthopedic Surgery, To nsillectomy Additional Past Surgical History / Comment(s): 10/22/20 PCI with stents x2, lap banding, FX of right ankle repair pins / plate, fistual lt arm jul 2018, lt shoulder sx (d/t separation), colonoscopies, bilateral cataract removals/lens implants. LIF surgery 08/11/21 R LEG stacey placed January 2023 Past Anesthesia/Blood Transfusion Reactions: Motion Sickness Additional Past Anesthesia/Blood Transfusion Reaction / Comment(s): CLAUSTERPHOBIA Date of Last Stent Placement:: 10/22/20 Past Psychological History: Anxiety Additional Psychological History / Comment(s): Pt resides with his spouse. He no longer drives d/t vision loss. His spouse drives and organizes his medications for him. He has a walker and uses a wheelchair if going distances (dialysis days). Smoking Status: Former smoker Past Alcohol Use History: None Reported Additional Past Alcohol Use History / Comment(s): Patient was a smoker of 2-3 packs per day for 35 years and quit in 2006. Past Drug Use History: None Reported - Past Family History Mother History Unknown: Yes Family Medical History: Coronary Artery Disease (CAD), Myocardial Infarction ([place]) Additional Family Medical History / Comment(s): Mother at age 58 from multiple sclerosis Father Family Medical History: CVA/TIA, Myocardial Infarction ([place]) Additional Family Medical History / Comment(s): Father had history of [place] and CVA followed by a second VA and CVA and at age 65. Brother(s) Additional Family Medical History / Comment(s): . Medications and Allergies Home Medications Medication Instructions Recorded Confirmed Type Levothyroxine Sodium 100 mcg PO DAILY 07/06/17 04/22/23 History Torsemide [Demadex] 40 mg PO DAILY 09/10/19 04/22/23 History Bryanna-Olimpia 1 tab PO DAILY 10/20/20 04/22/23 History HYDROcodone/APAP 10-325MG [[place] 1 tab PO Q6H 11/24/20 04/22/23 History 10-325] Insulin Regular, Human [Novolin R 15 unit SQ ACHS PRN 11/24/20 04/22/23 History Flexpen] Nitroglycerin Sl Tabs [Nitrostat] 0.4 mg SL Q5M PRN 03/11/21 04/22/23 History carvediloL [Coreg] 6.25 mg PO BID-W/MEALS #60 tab 08/09/22 04/22/23 Rx FLUoxetine HCL [PROzac] 40 mg PO DAILY 30 Days #30 cap 10/16/22 04/22/23 Rx Apixaban [Eliquis] 2.5 mg PO BID 02/16/23 04/22/23 History Acetaminophen Tab [Tylenol] 650 mg PO Q6HR PRN tab 02/21/23 04/22/23 Rx Insulin Detemir (Levemir) [Levemir] 20 unit SQ HS 30 Days #5 each 02/21/23 04/22/23 Rx metroNIDAZOLE [Flagyl] 500 mg PO TID #42 tab 02/21/23 04/22/23 Rx Calcium Carbonate [Tums] 1,000 mg PO AC-TID 04/18/23 04/22/23 History Cephalexin [Keflex] 500 mg PO Q12HR 04/18/23 04/22/23 History methocarbamoL [Robaxin] 500 - 1,000 mg PO QID PRN 04/18/23 04/22/23 History Aspirin 81 mg PO DAILY #30 tab 04/22/23 04/22/23 Rx Atorvastatin [Lipitor] 80 mg PO HS #30 tab 04/22/23 04/22/23 Rx Midodrine [ProAmatine] 10 mg PO AC-TID PRN #21 tab 04/22/23 04/22/23 Rx Ticagrelor [Brilinta] 90 mg PO BID #60 tab 04/22/23 04/22/23 Rx Allergies Allergy/AdvReac Type Severity Reaction Status Date / Time No Known Allergies Allergy Verified 04/22/23 17:42 Physical Exam Vitals: Vital Signs Temp Pulse Pulse Resp BP BP Pulse Ox 04/23/23 08:00 100 18 140/74 100 04/23/23 04:00 82 18 130/74 100 04/23/23 00:00 99 18 130/63 99 04/22/23 20:00 97.6 F 85 20 131/74 98 04/22/23 17:50 85 18 108/65 100 04/22/23 16:16 18 04/22/23 15:58 100 04/22/23 15:28 97.8 F 90 22 123/72 100 Intake and Output 04/22/23 04/23/23 04/23/23 22:59 06:59 14:59 Intake Total 222 Output Total 30 Balance 222 -30 Intake: Oral 222 Output: Urine 30 Other: Weight 127.006 kg 127.6 kg 127.6 kg Results 04/23/23 07:50 04/23/23 07:50 Cardiac Enzymes 04/22/23 04/22/23 04/23/23 Range/Units 15:58 15:58 07:50 AST 31 28 (17-59) U/L CK-MB (CK-2) 1.8 (0.0-3.4) ng/mL Troponin I 8.410 H* (0.000-0.034) ng/mL Coagulation 04/22/23 Range/Units 15:58 PT 10.2 (9.0-12.0) sec APTT 31.5 H (22.0-30.0) sec CBC 04/22/23 04/23/23 Range/Units 15:58 07:50 WBC 11.2 H 9.3 (3.8-10.6) k/uL RBC 3.21 L 3.13 L (4.30-5.90) m/uL Hgb 10.8 L 10.4 L (13.0-17.5) gm/dL Hct 31.5 L 31.4 L (39.0-53.0) % Plt Count 135 L 127 L (150-450) k/uL Comprehensive Metabolic Panel 04/22/23 04/23/23 Range/Units 15:58 07:50 Sodium 132 L 134 L (137-145) mmol/L Potassium 4.3 4.5 (3.5-5.1) mmol/L Chloride 91 L 92 L (98-107) mmol/L Carbon Dioxide 27 27 (22-30) mmol/L BUN 34 H 41 H (9-20) mg/dL Creatinine 4.83 H 5.67 H (0.66-1.25) mg/dL Glucose 255 H 127 H (74-99) mg/dL Calcium 8.6 8.4 (8.4-10.2) mg/dL AST 31 28 (17-59) U/L ALT 21 19 (4-49) U/L Alkaline Phosphatase 84 72 (38-126) U/L Total Protein 7.1 6.7 (6.3-8.2) g/dL Albumin 3.6 3.4 L (3.5-5.0) g/dL Current Medications Generic Name Dose Route Start Last Admin Trade Name Freq PRN Reason Stop Dose Admin Hydrocodone Bitart/Acetaminophen 1 each 04/22/23 22:21 04/23/23 12:32 Hydrocodone/Apap 10-325mg 1 Each Tab PO 1 each Q6H PRN Administration Moderate to Severe Pain (4-10) Apixaban 2.5 mg 04/22/23 22:00 04/23/23 10:08 Apixaban 2.5 Mg Tablet PO 2.5 mg BID ALINE Administration Protocol Aspirin 81 mg 04/23/23 09:00 04/23/23 10:55 Aspirin 81 Mg PO 81 mg DAILY ALINE Administration Atorvastatin Calcium 80 mg 04/22/23 22:00 04/22/23 22:38 Atorvastatin 80 Mg Tab PO 80 mg HS ALINE Administration Calcium Carbonate/Glycine 1,000 mg 04/23/23 12:30 04/23/23 11:54 Calcium Carbonate 500 Mg Chewable PO 1,000 mg AC-TID ALINE Administration Carvedilol 6.25 mg 04/23/23 07:30 04/23/23 06:31 Carvedilol 6.25 Mg Tab PO 6.25 mg BID-W/MEALS [facility] Administration Cephalexin 500 mg 04/23/23 16:00 Cephalexin 500 Mg Cap PO Q12H [facility] Protocol Fluoxetine HCl 40 mg 04/24/23 09:00 Fluoxetine Hcl 20 Mg Cap PO DAILY [facility] Insulin Aspart 0 unit 04/23/23 07:30 04/23/23 11:54 Insulin Aspart (Novolog) 100 Unit/Ml Vial SQ 4 unit ACHS [facility] Administration Protocol Insulin Detemir 20 unit 04/22/23 22:00 04/22/23 22:38 Insulin Detemir (Levemir) 100 Unit/Ml Syr SQ 20 unit HS [facility] Administration Lactulose 10 gm 04/23/23 16:00 Lactulose 20 Gm/30 Ml Cup PO Q24H [facility] Levothyroxine Sodium 100 mcg 04/23/23 06:30 04/23/23 06:31 Levothyroxine 100 Mcg Tab PO 100 mcg DAILY@0630 [facility] Administration Lorazepam 0.5 mg 04/22/23 22:57 04/22/23 23:28 Lorazepam 0.5 Mg Tab PO 0.5 mg BID PRN Administration Anxiety Melatonin 2 mg 04/22/23 21:53 04/22/23 22:37 Melatonin 1 Mg Tab PO 2 mg HS PRN Administration Insomnia Metronidazole 500 mg 04/23/23 16:00 Metronidazole 500 Mg Tab PO TID [facility] Protocol Midodrine 10 mg 04/23/23 10:46 Midodrine 5 Mg Tab PO AC-TID PRN Blood Pressure - Low Morphine Sulfate 1 mg 04/22/23 22:59 04/23/23 10:09 Morphine Sulfate 2 Mg/Ml Syringe IVP 1 mg Q6HR PRN Administration Breakthrough Pain Nitroglycerin 0.4 mg 04/22/23 21:54 Nitroglycerin Sl Tabs 0.4 Mg Tab SUBLINGUAL Q5M PRN Chest Pain Polyethylene Glycol 17 gm 04/23/23 16:00 Polyethylene Glycol 3350 17 Gm Powd.Pack PO Q24H [facility] Ticagrelor 90 mg 04/22/23 22:00 04/23/23 10:08 Ticagrelor 90 Mg Tab PO 90 mg BID [facility] Administration Torsemide 40 mg 04/23/23 09:00 Torsemide 20 Mg Tab PO DAILY ALINE Intake and Output 04/22/23 04/23/23 04/23/23 22:59 06:59 14:59 Intake Total 222 Output Total 30 Balance 222 -30 Intake: Oral 222 Output: Urine 30 Other: Weight 127.006 kg 127.6 kg 127.6 kg Patient Weight 04/24/23 06:59 Weight 127.6 kg 04/23/23 07:50 04/23/23 07:50
--- NOTE | 2023-04-23 12:50 | P.NPCON ---
History of Present Illness - Reason for Consult end stage renal disease - History of Present Illness Patient is a 62-year-old male with end-stage renal disease maintained on Tuesday schedule. Patient is admitted to the hospital with complaints of shortness of breath. He was just discharged yesterday after hemodialysis however patient states that he was not able to lay back flat and he feels he has extra fluid on. UF was decreased during his 2 treatments last week in the hospital due to low blood pressure. No complaints of chest pain. Patient was recently hospitalized for ST elevation [place] and is status post stenting of LAD and diagonal. Currently maintained on 2 L nasal cannula. Review of Systems As per HPI. Other systems negative Past Medical History Past Medical History: Coronary Artery Disease (CAD), Cancer, Heart Failure, CVA/TIA, Diabetes Mellitus, Eye Disorder, Hypertension, Myocardial Infarction ([place]), Renal Disease, Sleep Apnea/CPAP/BIPAP, Thyroid Disorder Additional Past Medical History / Comment(s): unhealing sore left index finger, neuropathy bilateral lower extremity/feet, bilateral eye diabetic retinopathy/poor vision/multiple injections, ESRD with hemodialysis T//SAT from 6:15 to 11:00, anemia, "mini strokes" x2, AVANI with CPap use, occasional low back pain/disc disease, gout, hypothyroid Last Myocardial Infarction Date:: 10/20/20 History of Any Multi-Drug Resistant Organisms: MRSA Date of last positivie culture/infection: 12/10/21 MDRO Source:: Finger-Right 5th Past Surgical History: Adenoidectomy, Bariatric Surgery, Cholecystectomy, Heart Catheterization, Heart Catheterization With Stent, Orthopedic Surgery, Tonsillectomy Additional Past Surgical History / Comment(s): 10/22/20 PCI with stents x2, lap banding, FX of right ankle repair pins / plate, fistual lt arm jul 2018, lt shoulder sx (d/t separation), colonoscopies, bilateral cataract removals/lens implants. LIF surgery 08/11/21 R LEG stacey placed January 2023 Past Anesthesia/Blood Transfusion Reactions: Motion Sickness Additional Past Anesthesia/Blood Transfusion Reaction / Comment(s): MARY VERDE Date of Last Stent Placement:: 10/22/20 Past Psychological History: Anxiety Additional Psychological History / Comment(s): Pt resides with his spouse. He no longer drives d/t vision loss. His spouse drives and organizes his medications for him. He has a walker and uses a wheelchair if going distances (dialysis days). Smoking Status: Former smoker Past Alcohol Use History: None Reported Additional Past Alcohol Use History / Comment(s): Patient was a smoker of 2-3 packs per day for 35 years and quit in 2006. Past Drug Use History: None Reported - Past Family History Mother History Unknown: Yes Family Medical History: Coronary Artery Disease (CAD), Myocardial Infarction ([place]) Additional Family Medical History / Comment(s): Mother at age 58 from multiple sclerosis Father Family Medical History: CVA/TIA, Myocardial Infarction ([place]) Additional Family Medical History / Comment(s): Father had history of [place] and CVA followed by a second [place] and CVA and at age 65. Brother(s) Additional Family Medical History / Comment(s): . Medications and Allergies Home Medications Medication Instructions Recorded Confirmed Type Levothyroxine Sodium 100 mcg PO DAILY 07/06/17 04/22/23 History Torsemide [Demadex] 40 mg PO DAILY 09/10/19 04/22/23 History Bryanna-Olimpia 1 tab PO DAILY 10/20/20 04/22/23 History HYDROcodone/APAP 10-325MG [[place] 1 tab PO Q6H 11/24/20 04/22/23 History 10-325] Insulin Regular, Human [Novolin R 15 unit SQ ACHS PRN 11/24/20 04/22/23 History Flexpen] Nitroglycerin Sl Tabs [Nitrostat] 0.4 mg SL Q5M PRN 03/11/21 04/22/23 History carvediloL [Coreg] 6.25 mg PO BID-W/MEALS #60 tab 08/09/22 04/22/23 Rx FLUoxetine HCL [PROzac] 40 mg PO DAILY 30 Days #30 cap 10/16/22 04/22/23 Rx Apixaban [Eliquis] 2.5 mg PO BID 02/16/23 04/22/23 History Acetaminophen Tab [Tylenol] 650 mg PO Q6HR PRN tab 02/21/23 04/22/23 Rx Insulin Detemir (Levemir) [Levemir] 20 unit SQ HS 30 Days #5 each 02/21/23 04/22/23 Rx metroNIDAZOLE [Flagyl] 500 mg PO TID #42 tab 02/21/23 04/22/23 Rx Calcium Carbonate [Tums] 1,000 mg PO AC-TID 04/18/23 04/22/23 History Cephalexin [Keflex] 500 mg PO Q12HR 04/18/23 04/22/23 History methocarbamoL [Robaxin] 500 - 1,000 mg PO QID PRN 04/18/23 04/22/23 History Aspirin 81 mg PO DAILY #30 tab 04/22/23 04/22/23 Rx Atorvastatin [Lipitor] 80 mg PO HS #30 tab 04/22/23 04/22/23 Rx Midodrine [ProAmatine] 10 mg PO AC-TID PRN #21 tab 04/22/23 04/22/23 Rx Ticagrelor [Brilinta] 90 mg PO BID #60 tab 04/22/23 04/22/23 Rx Allergies Allergy/AdvReac Type Severity Reaction Status Date / Time No Known Allergies Allergy Verified 04/22/23 17:42 Physical Exam Vitals: Vital Signs Temp Pulse Pulse Resp BP BP Pulse Ox 04/23/23 12:00 77 18 127/78 100 04/23/23 08:00 100 18 140/74 100 04/23/23 04:00 82 18 130/74 100 04/23/23 00:00 99 18 130/63 99 04/22/23 20:00 97.6 F 85 20 131/74 98 04/22/23 17:50 85 18 108/65 100 04/22/23 16:16 18 04/22/23 15:58 100 04/22/23 15:28 97.8 F 90 22 123/72 100 Intake and Output 04/22/23 04/23/23 04/23/23 22:59 06:59 14:59 Intake Total 222 Output Total 30 Balance 222 -30 Intake: Oral 222 Output: Urine 30 Other: Weight 127.006 kg 127.6 kg 127.6 kg Patient is awake, alert oriented 3. Examination of the heart S1 and S2 Examination of the lungs bilateral breath sounds are heard Abdomen is morbidly obese soft nontender Examination of lower extremities shows edema 2+ bilaterally with chronic skin changes Both hands have multiple finger amputations [employer] exam grossly intact Results - Lab Results Most recent lab results Calcium 8.4 mg/dL (8.4-10.2) 04/23/23 07:50 04/23/23 07:50 04/23/23 07:50 Assessment and Plan Assessment: 1. End-stage renal disease on hemodialysis on a Tuesday schedule 2. Volume overload 3. Status post recent ST elevation [place] status post cardiac catheterization and stenting to LAD and first diagonal 4. CK D mineral bone disorder 5. 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 Hold Coreg prior to her hemodialysis. Patient may need an extra treatment as outpatient to reach his estimated dry weight. Thank you for the consultation. We will continue to follow the patient with you during his hospitalization.
--- NOTE | 2023-04-23 13:35 | P.HPIM ---
History of Present Illness H&P Date: 04/23/23 History of present illness;62-year-old gentleman with past medical history signi ficant for recent STEMI, hypertension, hyperlipidemia, coronary artery disease with previous stenting of the RCA in 2020, paroxysmal atrial fibrillation, pericardial effusion with tamponade status post pericardial window in 2020, end- stage renal disease on hemodialysis, and amputations of fingers on his left hand secondary to osteomyelitis presented to the ER for shortness of breath. Patient was recently admitted to the hospital with an ST elevated myocardial infarction where he underwent stenting of the LAD and diagonal, was discharged yesterday after being cleared by cardiology and nephrology. As soon as he was discharged on his way back he stopped at a local fast food restaurant for a burger and fries. Following that he started noticing shortness of breath at res t. Patient was also complaining of orthopnea. Denies any palpitation. Denies any chest pain. Initial lab work done in the ER showed WBC 11.2, removing 10.8, crit of 135, sodium 132, potassium 4.3, BUN 34, creatinine 4.8 EKG done in the ER Did not show any acute segment changes, no T-wave inversions Patient was admitted to medicine service REVIEW OF SYSTEMS: CONSTITUTIONAL: No fever, no malaise, no fatigue. HEENT: No recent visual problems or hearing problems. Denied any sore throat. CARDIOVASCULAR As mentioned in HPI PULMONARY As mentioned in HPI GASTROINTESTINAL: No diarrhea, no nausea, no vomiting, no abdominal pain. NEUROLOGICAL: No headaches, no weakness, no numbness. HEMATOLOGICAL: Denies any bleeding or petechiae. GENITOURINARY: Denies any burning micturition, frequency, or urgency. MUSCULOSKELETAL/RHEUMATOLOGICAL: Denies any joint pain, swelling, or any muscle pain. ENDOCRINE: Denies any polyuria or polydipsia. The rest of the 14-point review of systems is negative. PHYSICAL EXAMINATION: GENERAL: The patient is alert and oriented x3, not in any acute distress. Well developed, well nourished. HEENT: Pupils are round and equally reacting to light. EOMI. No scleral icterus. No conjunctival pallor. Normocephalic, atraumatic. No pharyngeal erythema. No thyromegaly. CARDIOVASCULAR: S1 and S2 present. No murmurs, rubs, or gallops. PULMONARY: Chest is clear to auscultation, no wheezing or crackles. ABDOMEN: Soft, nontender, nondistended, normoactive bowel sounds. No palpable organomegaly. MUSCULOSKELETAL Finger amputations seen of right hand EXTREMITIES: No cyanosis, clubbing, or pedal edema. NEUROLOGICAL: Gross neurological examination did not reveal any focal deficits. SKIN: No rashes. Assessment and plan Acute hypoxic respiratory failure Recent STEMI Coronary artery disease with previous stenting of the RCA, 2020 Paroxysmal atrial fibrillation End-stage renal disease on hemodialysis Hypertension Hyperlipidemia History of pericardial effusion with tamponade, status post pericardial window, 2020 History of CVA History of amputations of his fingers on left hand secondary to osteomyelitis Monitor vital signs Monitor CBC Monitor CMP Continue telemetry monitoring Trend troponin Resume home meds Consult cardiology Consult nephrology Labs and medication were reviewed.. Continue same treatment. Continue with symptomatic treatment. Resume home medication. Monitor labs and vitals. DVT and GI prophylaxis. Further recommendations as per clinical course of the patient Dictation was produced using [employer] dictation software. please excuse any grammatical, word or spelling errors. Past Medical History Past Medical History: Coronary Artery Disease (CAD), Cancer, Heart Failure, CVA/TIA, Diabetes Mellitus, Eye Disorder, Hypertension, Myocardial Infarction ([place]), Renal Disease, Sleep Apnea/CPAP/BIPAP, Thyroid Disorder Additional Past Medical History / Comment(s): unhealing sore left index finger, neuropathy bilateral lower extremity/feet, bilateral eye diabetic retinopathy/poor vision/multiple injections, ESRD with hemodialysis T/TH/SAT from 6:15 to 11:00, anemia, "mini strokes" x2, AVANI with CPap use, occasional low back pain/disc disease, gout, hypothyroid Last Myocardial Infarction Date:: 10/20/20 History of Any Multi-Drug Resistant Organisms: MRSA Date of last positivie culture/infection: 12/10/21 MDRO Source:: Finger-Right 5th Past Surgical History: Adenoidectomy, Bariatric Surgery, Cholecystectomy, Heart Catheterization, Heart Catheterization With Stent, Orthopedic Surgery, Tonsillectomy Additional Past Surgical History / Comment(s): 10/22/20 PCI with stents x2, lap banding, FX of right ankle repair pins / plate, fistual lt arm jul 2018, lt shoulder sx (d/t separation), colonoscopies, bilateral cataract removals/lens implants. LIF surgery 08/11/21 R LEG stacey placed January 2023 Past Anesthesia/Blood Transfusion Reactions: Motion Sickness Additional Past Anesthesia/Blood Transfusion Reaction / Comment(s): CLAUSTERPHOBIA Date of Last Stent Placement:: 10/22/20 Past Psychological History: Anxiety Additional Psychological History / Comment(s): Pt resides with his spouse. He no longer drives d/t vision loss. His spouse drives and organizes his medications for him. He has a walker and uses a wheelchair if going distances (dialysis days). Smoking Status: Former smoker Past Alcohol Use History: None Reported Additional Past Alcohol Use History / Comment(s): Patient was a smoker of 2-3 packs per day for 35 years and quit in 2006. Past Drug Use History: None Reported - Past Family History Mother History Unknown: Yes Family Medical History: Coronary Artery Disease (CAD), Myocardial Infarction (TN) Additional Family Medical History / Comment(s): Mother at age 58 from multiple sclerosis Father Family Medical History: CVA/TIA, Myocardial Infarction (TN) Additional Family Medical History / Comment(s): Father had history of [place] and CVA followed by a second [place] and CVA and at age 65. Brother(s) Additional Family Medical History / Comment(s): . Medications and Allergies Home Medications Medication Instructions Recorded Confirmed Type Levothyroxine Sodium 100 mcg PO DAILY 07/06/17 04/22/23 History Torsemide [Demadex] 40 mg PO DAILY 09/10/19 04/22/23 History Bryanna-Olimpia 1 tab PO DAILY 10/20/20 04/22/23 History HYDROcodone/APAP 10-325MG [[place] 1 tab PO Q6H 11/24/20 04/22/23 History 10-325] Insulin Regular, Human [Novolin R 15 unit SQ ACHS PRN 11/24/20 04/22/23 History Flexpen] Nitroglycerin Sl Tabs [Nitrostat] 0.4 mg SL Q5M PRN 03/11/21 04/22/23 History carvediloL [Coreg] 6.25 mg PO BID-W/MEALS #60 tab 08/09/22 04/22/23 Rx FLUoxetine HCL [PROzac] 40 mg PO DAILY 30 Days #30 cap 10/16/22 04/22/23 Rx Apixaban [Eliquis] 2.5 mg PO BID 02/16/23 04/22/23 History Acetaminophen Tab [Tylenol] 650 mg PO Q6HR PRN tab 02/21/23 04/22/23 Rx Insulin Detemir (Levemir) [Levemir] 20 unit SQ HS 30 Days #5 each 02/21/2304/12 Rx metroNIDAZOLE [Flagyl] 500 mg PO TID #42 tab 02/21/23 04/22/23 Rx Calcium Carbonate [Tums] 1,000 mg PO AC-TID 04/18/23 04/22/23 History Cephalexin [Keflex] 500 mg PO Q12HR 04/18/23 04/22/23 History methocarbamoL [Robaxin] 500 - 1,000 mg PO QID PRN 04/18/23 04/22/23 History Aspirin 81 mg PO DAILY #30 tab 04/22/23 04/22/23 Rx Atorvastatin [Lipitor] 80 mg PO HS #30 tab 04/22/23 04/22/23 Rx Midodrine [ProAmatine] 10 mg PO AC-TID PRN #21 tab 04/22/23 04/22/23 Rx Ticagrelor [Brilinta] 90 mg PO BID #60 tab 04/22/23 04/22/23 Rx Allergies Allergy/AdvReac Type Severity Reaction Status Date / Time No Known Allergies Allergy Verified 04/22/23 17:42 Physical Exam Vitals: Vital Signs Temp Pulse Pulse Resp BP BP Pulse Ox 04/23/23 08:00 100 18 140/74 100 04/23/23 04:00 82 18 130/74 100 04/23/23 00:00 99 18 130/63 99 04/22/23 20:00 97.6 F 85 20 131/74 98 04/22/23 17:50 85 18 108/65 100 04/22/23 16:16 18 04/22/23 15:58 100 04/22/23 15:28 97.8 F 90 22 123/72 100 Intake and Output 04/22/23 04/23/23 04/23/23 22:59 06:59 14:59 Intake Total 222 Output Total 30 Balance 222 -30 Intake: Oral 222 Output: Urine 30 Other: Weight 127.006 kg 127.6 kg Results CBC & Chem 7: 04/23/23 07:50 04/23/23 07:50 Labs: Abnormal Lab Results - Last 24 Hours (Table) 04/22/23 04/22/23 04/22/23 Range/Units 15:58 15:58 15:58 WBC 11.2 H (3.8-10.6) k/uL RBC 3.21 L (4.30-5.90) m/uL Hgb 10.8 L (13.0-17.5) gm/dL Hct 31.5 L (39.0-53.0) % MCV (80.0-100.0) fL Plt Count 135 L (150-450) k/uL Neutrophils # 9.4 H (1.3-7.7) k/uL Lymphocytes # 0.8 L (1.0-4.8) k/uL APTT 31.5 H (22.0-30.0) sec Sodium 132 L (137-145) mmol/L Chloride 91 L (98-107) mmol/L BUN 34 H (9-20) mg/dL Creatinine 4.83 H (0.66-1.25) mg/dL Glucose 255 H (74-99) mg/dL POC Glucose (mg/dL) (70-110) mg/dL Troponin I (0.000-0.034) ng/mL Albumin (3.5-5.0) g/dL 04/22/23 04/22/23 04/23/23 Range/Units 15:58 22:33 05:46 WBC (3.8-10.6) k/uL RBC (4.30-5.90) m/uL Hgb (13.0-17.5) gm/dL Hct (39.0-53.0) % MCV (80.0-100.0) fL Plt Count (150-450) k/uL Neutrophils # (1.3-7.7) k/uL Lymphocytes # (1.0-4.8) k/uL APTT (22.0-30.0) sec Sodium (137-145) mmol/L Chloride (98-107) mmol/L BUN (9-20) mg/dL Creatinine (0.66-1.25) mg/dL Glucose (74-99) mg/dL POC Glucose (mg/dL) 297 H 183 H (70-110) mg/dL Troponin I 8.410 H* (0.000-0.034) ng/mL Albumin (3.5-5.0) g/dL 04/23/23 04/23/23 Range/Units 07:50 07:50 WBC (3.8-10.6) k/uL RBC 3.13 L (4.30-5.90) m/uL Hgb 10.4 L (13.0-17.5) gm/dL Hct 31.4 L (39.0-53.0) % MCV 100.4 H (80.0-100.0) fL Plt Count 127 L (150-450) k/uL Neutrophils # 7.8 H (1.3-7.7) k/uL Lymphocytes # 0.7 L (1.0-4.8) k/uL APTT (22.0-30.0) sec Sodium 134 L (137-145) mmol/L Chloride 92 L (98-107) mmol/L BUN 41 H (9-20) mg/dL Creatinine 5.67 H (0.66-1.25) mg/dL Glucose 127 H (74-99) mg/dL POC Glucose (mg/dL) (70-110) mg/dL Troponin I (0.000-0.034) ng/mL Albumin 3.4 L (3.5-5.0) g/dL Thrombosis Risk Factor Assmnt - Choose All That Apply Any of the Below Risk Factors Present?: Yes Each Factor Represents 1 point: Abnormal pulmonary function (COPD), Obesity (BMI >25), Serious lung disease incl. pneumonia (< 1month) Other Risk Factors: Yes Each Risk Factor Represents 2 Points: Age 61-74 years Other congenital or acquired thrombophilia - If yes, enter type in comment: No Thrombosis Risk Factor Assessment Total Risk Factor Score: 5 Thrombosis Risk Factor Assessment Level: High Risk
[2023-04-23] MEDS: LORazepam 0.5 MG TAB PO PRN (15:14)
[2023-04-23 16:35] LABS: Glucose,Whole Blood 144 mg/dL (70-110)
[2023-04-23] MEDS: metroNIDAZOLE 500 MG TAB PO SCH ×2 (17:18→21:02)
[2023-04-23] MEDS: polyethylene glycoL 3350 17 GM POWD.PACK PO SCH (17:19)
[2023-04-23] MEDS: TORSEMIDE 20 MG TAB PO SCH (17:19)
[2023-04-23] MEDS: LACTULOSE 20 GM/30 ML CUP PO SCH (17:19)
[2023-04-23] MEDS: CEPHALEXIN 500 MG CAP PO SCH (17:19)
[2023-04-23 20:08] LABS: Glucose,Whole Blood 209 mg/dL (70-110)
[2023-04-23] MEDS: ATORVASTATIN 80 MG TAB PO SCH (21:02)
[2023-04-23] MEDS: INSULIN DETEMIR (LEVEMIR) 100 UNIT/ML SYR SQ SCH (21:02)
[2023-04-23] MEDS: MELATONIN 1 MG TAB PO PRN (22:28)
[2023-04-24] MEDS: HYDROcodone/APAP 10-325MG 1 EACH TAB PO PRN ×4 (00:35→18:16)
[2023-04-24] MEDS: LORazepam 0.5 MG TAB PO PRN ×2 (00:35→20:42)
[2023-04-24 05:45] LABS: Glucose,Whole Blood 98 mg/dL (70-110)
[2023-04-24] MEDS: CALCIUM CARBONATE 500 MG CHEWABLE PO SCH ×3 (06:39→16:48)
[2023-04-24] MEDS: carvediloL 6.25 MG TAB PO SCH ×3 (06:40→16:48)
[2023-04-24] MEDS: LEVOTHYROXINE 100 MCG TAB PO SCH (06:40)
[2023-04-24] MEDS: CEPHALEXIN 500 MG CAP PO SCH ×2 (06:40→16:48)
[2023-04-24] MEDS: INSULIN ASPART (NovoLOG) 100 UNIT/ML VIAL SQ SCH ×4 (06:45→20:42)
[2023-04-24] MEDS: ASPIRIN 81 MG PO SCH (08:01)
[2023-04-24] MEDS: FLUoxetine HCL 20 MG CAP PO SCH (08:01)
[2023-04-24] MEDS: TORSEMIDE 20 MG TAB PO SCH (08:01)
[2023-04-24] MEDS: TICAGRELOR 90 MG TAB PO SCH ×2 (08:01→20:41)
[2023-04-24] MEDS: APIXABAN 2.5 MG TABLET PO SCH ×2 (08:01→20:42)
[2023-04-24] MEDS: metroNIDAZOLE 500 MG TAB PO SCH ×3 (08:01→20:41)
--- NOTE | 2023-04-24 10:49 | P.PN ---
Subjective Patient is seen for follow-up for end-stage renal disease. He continues to complain of some shortness of breath although much improved. Status post UF of 4 L with hemodialysis yesterday. No complaints of chest pain or cough. Objective - Vital Signs Vital signs: Vital Signs Temp 98.0 F 04/24/23 08:00 Pulse 75 04/24/23 08:00 Resp 18 04/24/23 08:00 BP 104/61 04/24/23 08:00 Pulse Ox 98 04/24/23 08:00 FiO2 Intake & Output 04/23/23 04/24/23 04/24/23 18:59 06:59 18:59 Intake Total 854 118 Output Total 4000 30 Balance -3146 -30 118 Weight 127.6 kg 124.5 kg Intake: Oral 354 118 Hemodialysis 500 Output: Urine 30 Hemodialysis 4000 Other: # Voids 1 - Exam Patient is awake, alert oriented 3. 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 End-stage renal disease on hemodialysis on a Tuesday schedule 2. Volume overload 3. Status post recent ST elevation [place] status post cardiac catheterization and stenting to LAD and first diagonal 4. CK D mineral bone disorder 5. History of osteomyelitis and multiple amputations of fingers in both hands Plan: Repeat hemodialysis in a.m. and patient can be discharged post hemodialysis tomorrow. Increase UF as tolerated with hemodialysis tomorrow.
[2023-04-24 12:02] LABS: Glucose,Whole Blood 160 mg/dL (70-110)
--- NOTE | 2023-04-24 12:05 | P.PN ---
Subjective Progress Note Date: 04/24/23 The patient is a 62-year-old male who is currently readmitted with increased shortness of breath. The patient recently suffered an ST elevated myocardial infarction and within 24 hours was readmitted for congestive heart failure. The patient had consumed a large sodium diet, as well as being a dialysis patient. Yesterday dialysis was performed in 3 L of fluid was removed. The patient was interviewed and examined resting comfortably in bed. He states his breathing is better. No orthopnea. No chest pain or chest pressure. He states he has been up ambulating and he denies any dizziness or lightheadedness. GENERAL: Well-appearing, well-nourished and in no acute distress. NECK: Supple without JVD or thyromegaly. LUNGS: Breath sounds clear to auscultation bilaterally. Respiration equal and unlabored. No wheezes, rales or rhonchi. HEART: Regular rate and rhythm without murmurs, rubs or gallops. S1 and S2 heard. EXTREMITIES: Normal range of motion, +2 right lower extremity edema. Generaliz ed left lower extremity edema. No clubbing or cyanosis. Peripheral pulses intact and strong. TELEMETRY: Sinus rhythm overnight IMPRESSION: Acute on chronic congestive heart failure exacerbation, systolic Recent ST elevated myocardial infarction with stenting to the LAD and first diagonal End-stage renal disease, on dialysis PLAN: Increase carvedilol to 3 times daily May hold prior to dialysis if needed Strict low-sodium diet No further recommendations from the cardiac standpoint I am dictating on behalf of Dr Joel Swain's history/physical and assessment/plan. Objective - Vital Signs Vital signs: Vital Signs Temp 98.0 F 04/24/23 08:00 Pulse 75 04/24/23 08:00 Resp 18 04/24/23 08:00 BP 104/61 04/24/23 08:00 Pulse Ox 98 04/24/23 08:00 FiO2 Intake & Output 04/23/23 04/24/23 04/24/23 18:59 06:59 18:59 Intake Total 854 118 Output Total 4000 30 Balance -314530 118 Weight 127.6 kg 124.5 kg Intake: Oral 354 118 Hemodialysis 500 Output: Urine 30 Hemodialysis 4000 Other: # Voids 1 - Labs CBC & Chem 7: 04/23/23 07:50 04/23/23 07:50 Labs: Abnormal Lab Results - Last 24 Hours (Table) 04/23/23 04/23/23 04/24/23 Range/Units 16:33 20:07 11:55 POC Glucose (mg/dL) 144 H 209 H 160 H (70-110) mg/dL
--- NOTE | 2023-04-24 12:35 | P.PN ---
Subjective Progress Note Date: 04/24/23 62-year-old gentleman with past medical history significant for recent STEMI, hypertension, hyperlipidemia, coronary artery disease with previous stenting of the RCA in 2020, paroxysmal atrial fibrillation, pericardial effusion with tamponade status post pericardial window in 2020, end-stage renal disease on hemodialysis, and amputations of fingers on his left hand secondary to osteomyelitis presented to the ER for shortness of breath. Patient was recently admitted to the hospital with an ST elevated myocardial infarction where he underwent stenting of the LAD and diagonal, was discharged yesterday after being cleared by cardiology and nephrology. As soon as he was discharged on his way back he stopped at a local fast food restaurant for a burger and fries. Following that he started noticing shortness of breath at rest. Patient was also complaining of orthopnea. Denies any palpitation. Denies any chest pain. Initial lab work done in the ER showed WBC 11.2, removing 10.8, crit of 135, sodium 132, potassium 4.3, BUN 34, creatinine 4.8 EKG done in the ER Did not show any acute segment changes, no T-wave inversions Patient was admitted to medicine service 04/24. Patient seen and examined. Currently off oxygen, get short of breath on exertion, nephrology recommended doing dialysis tomorrow prior to discharge REVIEW OF SYSTEMS: CONSTITUTIONAL: No fever, no malaise,. CARDIOVASCULAR: No chest pain, no palpitations, no syncope. PULMONARY: No shortness of breath, no cough, GASTROINTESTINAL: No diarrhea, no nausea, no vomiting, no abdominal pain. NEUROLOGICAL: No headaches, no weakness, PHYSICAL EXAMINATION: GENERAL: The patient is alert and oriented x3, not in any acute distress. Well developed, well nourished. HEENT: Pupils are round and equally reacting to light. EOMI. No scleral icterus. No conjunctival pallor. Normocephalic, atraumatic. No pharyngeal erythema. No thyromegaly. CARDIOVASCULAR: S1 and S2 present. No murmurs, rubs, or gallops. PULMONARY: Chest is clear to auscultation, no wheezing or crackles. ABDOMEN: Soft, nontender, nondistended, normoactive bowel sounds. No palpable organomegaly. MUSCULOSKELETAL: No joint swelling or deformity. EXTREMITIES: No cyanosis, clubbing, or pedal edema. NEUROLOGICAL: Gross neurological examination did not reveal any focal deficits. SKIN: No rashes. Assessment and plan Acute hypoxic respiratory failure Recent STEMI Coronary artery disease with previous stenting of the RCA, 2020 Paroxysmal atrial fibrillation End-stage renal disease on hemodialysis Hypertension Hyperlipidemia History of pericardial effusion with tamponade, status post pericardial window, 2020 History of CVA History of amputations of his fingers on left hand secondary to osteomyelitis Monitor vital signs Monitor CBC Monitor CMP Continue telemetry monitoring Continue aspirin, Eliquis, brilinta Continue Keflex and Flagyl per ID. Continue Synthroid. Continue dialysis per nephrology Cardiology following Labs and medication were reviewed.. Continue same treatment. Continue with symptomatic treatment. Resume home medication. Monitor labs and vitals. DVT and GI prophylaxis. Further recommendations as per clinical course of the patient Dictation was produced using [employer] dictation software. please excuse any grammatical, word or spelling errors. Objective - Vital Signs Vital signs: Vital Signs Temp 98.0 F 04/24/23 08:00 Pulse 75 04/24/23 08:00 Resp 18 04/24/23 08:00 BP 104/61 04/24/23 08:00 Pulse Ox 98 04/24/23 08:00 FiO2 Intake & Output 04/23/23 04/24/23 04/24/23 18:59 06:59 18:59 Intake Total 854 118 Output Total 4000 30 Balance -3146 -30 118 Weight 127.6 kg 124.5 kg Intake: Oral 354 118 Hemodialysis 500 Output: Urine 30 Hemodialysis 4000 Other: # Voids 1 - Labs CBC & Chem 7: 04/23/23 07:50 04/23/23 07:50 Labs: Abnormal Lab Results - Last 24 Hours (Table) 04/23/23 04/23/23 04/23/23 Range/Units 11:41 16:33 20:07 POC Glucose (mg/dL) 249 H 144 H 209 H (70-110) mg/dL
[2023-04-24] MEDS: polyethylene glycoL 3350 17 GM POWD.PACK PO SCH (15:06)
[2023-04-24 16:40] LABS: Glucose,Whole Blood 212 mg/dL (70-110)
[2023-04-24] MEDS: LACTULOSE 20 GM/30 ML CUP PO SCH (16:49)
[2023-04-24 20:28] LABS: Glucose,Whole Blood 264 mg/dL (70-110)
[2023-04-24] MEDS: MELATONIN 1 MG TAB PO PRN (20:41)
[2023-04-24] MEDS: ATORVASTATIN 80 MG TAB PO SCH (20:41)
[2023-04-24] MEDS: INSULIN DETEMIR (LEVEMIR) 100 UNIT/ML SYR SQ SCH (20:47)
[2023-04-25] MEDS: HYDROcodone/APAP 10-325MG 1 EACH TAB PO PRN ×2 (00:11→06:19)
[2023-04-25 06:08] LABS: Glucose,Whole Blood 198 mg/dL (70-110)
[2023-04-25] MEDS: CALCIUM CARBONATE 500 MG CHEWABLE PO SCH ×2 (06:18→12:28)
[2023-04-25] MEDS: INSULIN ASPART (NovoLOG) 100 UNIT/ML VIAL SQ SCH ×2 (06:19→12:28)
[2023-04-25] MEDS: LEVOTHYROXINE 100 MCG TAB PO SCH (06:19)
[2023-04-25] MEDS: carvediloL 6.25 MG TAB PO SCH ×2 (06:19→12:28)
[2023-04-25] MEDS: CEPHALEXIN 500 MG CAP PO SCH (06:19)
[2023-04-25] MEDS: TORSEMIDE 20 MG TAB PO SCH (09:32)
[2023-04-25] MEDS: FLUoxetine HCL 20 MG CAP PO SCH (09:32)
[2023-04-25] MEDS: LORazepam 0.5 MG TAB PO PRN (09:33)
[2023-04-25] MEDS: ASPIRIN 81 MG PO SCH (09:33)
[2023-04-25] MEDS: APIXABAN 2.5 MG TABLET PO SCH (09:33)
[2023-04-25] MEDS: metroNIDAZOLE 500 MG TAB PO SCH (09:33)
[2023-04-25] MEDS: TICAGRELOR 90 MG TAB PO SCH (09:34)
--- NOTE | 2023-04-25 10:59 | P.PN ---
Subjective Progress Note Date: 04/25/23 The patient is a 62-year-old male who is currently readmitted with increased shortness of breath. The patient recently suffered an ST elevated myocardial infarction and within 24 hours was readmitted for congestive heart failure. The patient had consumed a large sodium diet, as well as being a dialysis patient. Yesterday dialysis was performed in 3 L of fluid was removed. Patient states that he is scheduled for dialysis again today and will be going home later. Yesterday cardiology increased Coreg to 3 times daily. Heart rate is running in the 70s and 80s, blood pressure 126/79. He denies having any chest pain, fluttering sensation, no shortness of breath. GENERAL: Well-appearing, well-nourished and in no acute distress. NECK: Supple without JVD or thyromegaly. LUNGS: Breath sounds clear to auscultation bilaterally. Respiration equal and unlabored. No wheezes, rales or rhonchi. HEART: Regular rate and rhythm without murmurs, rubs or gallops. S1 and S2 heard. EXTREMITIES: Normal range of motion, +2 right lower extremity edema. Generalized left lower extremity edema. No clubbing or cyanosis. Peripheral pulses intact and strong. TELEMETRY: Sinus rhythm overnight IMPRESSION: Acute on chronic congestive heart failure exacerbation, systolic Recent ST elevated myocardial infarction with stenting to the LAD and first diagonal End-stage renal disease, on dialysis PLAN: Continue increased frequency of carvedilol to 3 times daily May hold prior to dialysis if needed Strict low-sodium diet No further recommendations from the cardiac standpoint. Patient is cleared for discharge from cardiology and may follow-up in the office in one to 2 weeks. Nurse practitioner note has been reviewed, I agree with the documented findings and plan of care. Patient was seen and examined. Objective - Vital Signs Vital signs: Vital Signs Temp 98.4 F 04/24/23 20:00 Pulse 70 04/25/23 00:00 Resp 18 04/25/23 00:00 BP 126/79 04/25/23 04:00 Pulse Ox 97 04/25/23 07:53 FiO2 Intake & Output 04/24/23 04/25/23 04/25/23 18:59 06:59 18:59 Intake Total 236 Output Total 20 Balance 216 Weight 124 kg Intake: Oral 236 Output: Urine 20 Other: # Voids 1 1 - Labs CBC & Chem 7: 04/23/23 07:50 04/23/23 07:50 Labs: Abnormal Lab Results - Last 24 Hours (Table) 04/24/23 04/24/23 04/24/23 Range/Units 11:55 16:39 20:26 POC Glucose (mg/dL) 160 H 212 H 264 H (70-110) mg/dL 04/25/23 Range/Units 06:06 POC Glucose (mg/dL) 198 H (70-110) mg/dL
[2023-04-25 11:38] LABS: Glucose,Whole Blood 137 mg/dL (70-110)
--- NOTE | 2023-04-25 11:41 | P.PN ---
Subjective Patient is seen for follow-up for end-stage renal disease. He continues to complain of some shortness of breath although much improved. Seen on hemodialysis. Tolerating treatment well. Goal UF about 3 L. Objective - Vital Signs Vital signs: Vital Signs Temp 97.7 F 04/25/23 08:40 Pulse 77 04/25/23 08:40 Resp 16 04/25/23 08:40 BP 115/58 04/25/23 08:40 Pulse Ox 100 04/25/23 08:40 FiO2 Intake & Output 04/24/23 04/25/23 04/25/23 18:59 06:59 18:59 Intake Total 236 100 Output Total 20 150 Balance 216 -50 Weight 124 kg Intake: Oral 236 100 Output: Urine 20 150 Other: # Voids 1 1 2 - Exam Patient is awake, alert oriented 3. 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 End-stage renal disease on hemodialysis on a Tuesday schedule 2. Volume overload 3. Status post recent ST elevation [place] status post cardiac catheterization and stenting to LAD and first diagonal 4. CK D mineral bone disorder 5. History of osteomyelitis and multiple amputations of fingers in both hands Plan: Patient can be discharged post hemodialysis. He will follow-up for hemodialysis again tomorrow as outpatient.
[2023-04-25 13:44] VITALS: BP 149/83; PULSE 88; RESP 18; TEMP 96.6
== END 2023-04-25 13:47 | disposition home or self-care (01) | DRG 291 ==
LOC: EC 15:24 → 3SCARD 17:30
PROVIDERS: ADMIT Hospitalist; ATTEND Hospitalist
DX: I13.2 Hypertensive heart and chronic kidney disease with heart failure and with stage 5 chronic kidney disease, or end stage renal disease (principal); I50.23 Acute on chronic systolic (congestive) heart failure; J96.01 Acute respiratory failure with hypoxia; N18.6 End stage renal disease; E11.319 Type 2 diabetes mellitus with unspecified diabetic retinopathy without macular edema; E11.22 Type 2 diabetes mellitus with diabetic chronic kidney disease; Z99.2 Dependence on renal dialysis; Z79.01 Long term (current) use of anticoagulants; E03.9 Hypothyroidism, unspecified; E11.42 Type 2 diabetes mellitus with diabetic polyneuropathy; I25.10 Atherosclerotic heart disease of native coronary artery without angina pectoris; I25.2 Old myocardial infarction; Z95.5 Presence of coronary angioplasty implant and graft; I48.0 Paroxysmal atrial fibrillation; E78.5 Hyperlipidemia, unspecified; G47.33 Obstructive sleep apnea (adult) (pediatric); D63.1 Anemia in chronic kidney disease; Z86.73 Personal history of transient ischemic attack (TIA), and cerebral infarction without residual deficits; F41.9 Anxiety disorder, unspecified; H54.7 Unspecified visual loss; M89.8X9 Other specified disorders of bone, unspecified site; Z79.02 Long term (current) use of antithrombotics/antiplatelets; Z79.4 Long term (current) use of insulin; Z79.82 Long term (current) use of aspirin; Z87.891 Personal history of nicotine dependence; Z79.890 Hormone replacement therapy; Z79.899 Other long term (current) drug therapy; Z96.1 Presence of intraocular lens; Z98.42 Cataract extraction status, left eye; Z98.41 Cataract extraction status, right eye; Z90.49 Acquired absence of other specified parts of digestive tract; Z98.84 Bariatric surgery status; Z82.49 Family history of ischemic heart disease and other diseases of the circulatory system; Z89.022 Acquired absence of left finger(s); Z89.021 Acquired absence of right finger(s); Z86.14 Personal history of Methicillin resistant Staphylococcus aureus infection
CPT/HCPCS: 36415; 71046; 80053; 82553; 83880; 84484; 85025; 85610; 85730; 90935; 93005; 94760; 96374; 99285

== ENCOUNTER 2023-05-01 02:05 | Emergency (ER) | payer MEDICARE, BC ==
[2023-05-01 02:10] LABS: Glucose,Whole Blood 99 mg/dL (70-110)
[2023-05-01 02:35] LABS: Glucose,Whole Blood 129 mg/dL (70-110)
[2023-05-01 03:09] LABS: ALT 20 U/L (4-49); AST 31 U/L (17-59); African American GFR (CKD) 24 (>60 ml/min/1.73 sqM); Albumin 3.3 g/dL (3.5-5.0); Alkaline Phosphatase 78 U/L (38-126); Anion Gap 8 mmol/L; Basophils % (A) 0 %; Blood Urea Nitrogen 31 mg/dL (9-20); Calcium 9.2 mg/dL (8.4-10.2); Carbon Dioxide 32 mmol/L (22-30); Chloride 94 mmol/L (98-107); Eosinophils # (A) 0.3 k/uL (0-0.7); Eosinophils % (A) 2 %; Glucose 90 mg/dL (74-99); HCT 32.5 % (39.0-53.0); HGB 10.9 gm/dL (13.0-17.5); Lipase 106 U/L (23-300); Lymphocytes % (A) 7 %; MCH 33.5 pg (25.0-35.0); MCHC 33.6 g/dL (31.0-37.0); MCV 99.7 fL (80.0-100.0); Macrocytosis Slight; Magnesium 2.2 mg/dL (1.6-2.3); Mean Platelet Volume 7.6; Monocytes # (A) 0.5 k/uL (0-1.0); Monocytes % (A) 4 %; Neutrophils # (A) 11.7 k/uL (1.3-7.7); Neutrophils % (A) 85 %; Non-African American GFR(CKD) 21 (>60 ml/min/1.73 sqM); Platelet Count 162 k/uL (150-450); RBC 3.26 m/uL (4.30-5.90); RDW 14.8 % (11.5-15.5); Sodium 134 mmol/L (137-145); Total Bilirubin 0.7 mg/dL (0.2-1.3); Total Protein 6.9 g/dL (6.3-8.2); WBC 13.8 k/uL (3.8-10.6)
--- NOTE | 2023-05-01 03:32 | ED ---
General Adult HPI - General Chief complaint: Neuro Symptoms/Deficit Stated complaint: HypoGlycemia Time Seen by Provider: 05/01/23 02:07 Source: patient, EMS Mode of arrival: EMS Limitations: no limitations - History of Present Illness Initial comments: This is a 62-year-old male with an extensive past medical history including recent [place] status post 3 cardiac stents, hypertension, diabetes, end-stage renal disease on dialysis Tuesday, and Tuesday presented to emergency department via EMS for hypoglycemia. The patient was ANO 4 but was falling asleep during questioning. The patient stated that he was increasingly lethargic over the last several days. The patient as well as his did complain that the patient has been intermittently hallucinating over the last several days. The patient however on arrival denied any acute pain or distress. It was reported that the patient's blood sugar was high last night and then low today. The patient was otherwise resting in bed comfortably. - Related Data Home Medications Medication Instructions Recorded Confirmed Levothyroxine Sodium 100 mcg PO DAILY 07/06/17 04/22/23 Torsemide [Demadex] 40 mg PO DAILY 09/10/19 04/22/23 Bryanna-Olimpia 1 tab PO DAILY 10/20/20 04/22/23 HYDROcodone/APAP 10-325MG [Santa Claus 1 tab PO Q6H 11/24/20 04/22/23 10-325] Insulin Regular, Human [Novolin R 15 unit SQ ACHS PRN 11/24/20 04/22/23 Flexpen] Nitroglycerin Sl Tabs [Nitrostat] 0.4 mg SL Q5M PRN 03/11/21 04/22/23 Apixaban [Eliquis] 2.5 mg PO BID 02/16/23 04/22/23 Calcium Carbonate [Tums] 1,000 mg PO AC-TID 04/18/23 04/22/23 Cephalexin [Keflex] 500 mg PO Q12HR 04/18/23 04/22/23 methocarbamoL [Robaxin] 500 - 1,000 mg PO QID PRN 04/18/23 04/22/23 Previous Rx's Medication Instructions Recorded FLUoxetine HCL [PROzac] 40 mg PO DAILY 30 Days #30 cap 10/16/22 Acetaminophen Tab [Tylenol] 650 mg PO Q6HR PRN tab 02/21/23 Insulin Detemir (Levemir) [Levemir] 20 unit SQ HS 30 Days #5 each 02/21/23 metroNIDAZOLE [Flagyl] 500 mg PO TID #42 tab 02/21/23 Aspirin 81 mg PO DAILY #30 tab 04/22/23 Atorvastatin [Lipitor] 80 mg PO HS #30 tab 04/22/23 Midodrine [ProAmatine] 10 mg PO AC-TID PRN #21 tab 04/22/23 Ticagrelor [Brilinta] 90 mg PO BID #60 tab 04/22/23 carvediloL [Coreg] 6.25 mg PO TID #60 tab 04/25/23 Cephalexin [Keflex] 500 mg PO Q6HR 1 Days #20 cap 05/01/23 Allergies Allergy/AdvReac Type Severity Reaction Status Date / Time No Known Allergies Allergy Verified 04/22/23 17:42 Review of Systems ROS Statement: Those systems with pertinent positive or pertinent negative responses have been documented in the HPI. ROS Other: All systems not noted in ROS Statement are negative. Past Medical History Past Medical History: Coronary Artery Disease (CAD), Cancer, Heart Failure, CVA/TIA, Diabetes Mellitus, Eye Disorder, Hypertension, Myocardial Infarction ([place]), Renal Disease, Sleep Apnea/CPAP/BIPAP, Thyroid Disorder Additional Past Medical History / Comment(s): unhealing sore left index finger, neuropathy bilateral lower extremity/feet, bilateral eye diabetic retinopathy/poor vision/multiple injections, ESRD with hemodialysis T/TH/SAT from 6:15 to 11:00, anemia, "mini strokes" x2, AVANI with CPap use, occasional low back pain/disc disease, gout, hypothyroid Last Myocardial Infarction Date:: 10/20/20 History of Any Multi-Drug Resistant Organisms: MRSA Date of last positivie culture/infection: 12/10/21 MDRO Source:: Finger-Right 5th Past Surgical History: Adenoidectomy, Bariatric Surgery, Cholecystectomy, Heart Catheterization, Heart Catheterization With Stent, Orthopedic Surgery, Tonsillectomy Additional Past Surgical History / Comment(s): 10/22/20 PCI with stents x2, lap banding, FX of right ankle repair pins / plate, fistual lt arm jul 2018, lt shoulder sx (d/t separation), colonoscopies, bilateral cataract removals/lens implants. LIF surgery 08/11/21 R LEG stacey placed January 2023 Past Anesthesia/Blood Transfusion Reactions: Motion Sickness Additional Past Anesthesia/Blood Transfusion Reaction / Comment(s): CLAUSTERPHOBIA Date of Last Stent Placement:: 10/22/20 Past Psychological History: Anxiety Smoking Status: Former smoker - Past Family History Mother History Unknown: Yes Family Medical History: Coronary Artery Disease (CAD), Myocardial Infarction ([place]) Additional Family Medical History / Comment(s): Mother at age 58 from multiple sclerosis Father Family Medical History: CVA/TIA, Myocardial Infarction ([place]) Additional Family Medical History / Comment(s): Father had history of [place] and CVA followed by a second [place] and CVA and at age 65. Brother(s) Additional Family Medical History / Comment(s): . General Exam Limitations: no limitations General appearance: alert, in no apparent distress, obese Head exam: Present: atraumatic, normocephalic, normal inspection Eye exam: Present: normal appearance, PERRL Pupils: Present: normal accommodation ENT exam: Present: normal exam, normal oropharynx, mucous membranes moist Neck exam: Present: normal inspection, full ROM Respiratory exam: Present: normal lung sounds bilaterally Cardiovascular Exam: Present: regular rate, normal rhythm, normal heart sounds GI/Abdominal exam: Present: soft, normal bowel sounds Extremities exam: Present: normal inspection, full ROM, other (Multiple bilateral finger amputations) Back exam: Present: normal inspection, full ROM Neurological exam: Present: alert, oriented X3, CN II-XII intact Psychiatric exam: Present: normal affect, normal mood Skin exam: Present: warm, dry Course Vital Signs 05/01/23 05/01/23 05/01/23 02:09 02:21 04:15 Temperature 98.7 F Pulse Rate 98 89 Respiratory 18 18 Rate Blood Pressure 105/53 111/55 131/84 O2 Sat by Pulse 98 97 Oximetry EKG Findings - EKG Comments: EKG Findings:: An EKG was obtained and was interpreted by myself showing a rate of 68,. We'll 120, QS duration 106 and QTC of 451. This EKG showed a junctional rhythm with occasional PVC. There was however no ST segment elevation or depression noted. Medical Decision Making - Medical Decision Making Was pt. sent in by a medical professional or institution (, PA, TAXICAB DRIVER, urgent care, hospital, or group home...) When possible be specific @ -No Did you speak to anyone other than the patient for history (EMS, parent, family, police, friend...)? What history was obtained from this source @ -I did speak with the patient's was at the bedside and confirmed that the patient did have intermittent episodes of hallucinations as well as increasing lethargy over the last several days. Did you review nursing and triage notes (agree or disagree)? Why? @ -I reviewed and agree with nursing and triage notes Were old charts reviewed (outside hosp., previous admission, EMS record, old EKG, old radiological studies, urgent care reports/EKG's, group home records)? Report findings @ -No old charts were reviewed Differential Diagnosis (chest pain, altered mental status, abdominal pain women, abdominal pain men, vaginal bleeding, weakness, fever, dyspnea, syncope, headache, dizziness, GI bleed, back pain, seizure, CVA, palpatations, mental health)? @ -CO2 narcosis, UTI, hyperammonemia EKG interpreted by me (3pts min.). @ -As above X-rays interpreted by me (1pt min.). @ -Chest x-ray was obtained and was interpreted by myself showing increasing basilar aeration. There was developing right upper lobe/lower lobe superior segmental junction pneumonia or atelectasis. CT interpreted by me (1pt min.). @ -None done U/S interpreted by me (1pt. min.). @ -None done What testing was considered but not performed or refused? (CT, X-rays, U/S, labs)? Why? @ -None What meds were considered but not given or refused? Why? @ -None Did you discuss the management of the patient with other professionals (professionals i.e. , PA, TAXICAB DRIVER, lab, RT, psych nurse, social work manager, commercial solar sales consultant, teacher, disciplinary hearing officer, case consultant)? Give summary @ -No Was smoking cessation discussed for >3mins.? @ -No Was critical care preformed (if so, how long)? @ -No Were there social determinants of health that impacted care today? How? (Homelessness, low income, unemployed, alcoholism, drug addiction, transportation, low edu. Level, literacy, decrease access to med. care, [facility], rehab)? @ -No Was there de-escalation of care discussed even if they declined (Discuss DNR or withdrawal of care, Hospice)? DNR status @ -No What co-morbidities impacted this encounter? (DM, HTN, Smoking, COPD, CAD, Cancer, CVA, ARF, Chemo, Hep., AIDS, mental health diagnosis, sleep apnea, morbid obesity)? @ -End-stage renal disease on dialysis, hypertension, previous cardiac stents Was patient admitted / discharged? Hospital course, mention meds given and route, prescriptions, significant lab abnormalities, going to OR and other pertinent info. @ -The patient was seen and evaluated in emergency department. Physical exam, the patient was resting in bed without any acute distress. Vital signs ad mission were stable. Due to the nature of the patient's complaints, full laboratory workup was obtained and was all within normal limits. The patient's VBG was within normal limits and did not show any abnormalities. The patient denied a cough therefore the possible pneumonia on chest x-ray was likely secondary to atelectasis. Urinalysis was also obtained and did show a urinary tract infection at this time. The patient was given Rocephin. The patient is also given a prescription for Keflex to be taken at home and it was likely that this was the cause of his hallucinations and lethargy. The patient was advised to take these medications as prescribed and to report to his primary care ph ysician for further workup and evaluation. The patient was agreeable to this and all his questions were answered. The patient was discharged home in stable condition with his . Undiagnosed new problem with uncertain prognosis? @ -No Drug Therapy requiring intensive monitoring for toxicity (Heparin, Nitro, Insulin, Cardizem)? @ -No Were any procedures done? @ -No Diagnosis/symptom? @ -Urinary tract infection Acute, or Chronic, or Acute on Chronic? @ -Acute Uncomplicated (without systemic symptoms) or Complicated (systemic symptoms)? @ -Complicated Side effects of treatment? @ -No Exacerbation, Progression, or Severe Exacerbation? @ -No Poses a threat to life or bodily function? How? (Chest pain, [place], [place], pneumonia, PE, COPD, DKA, ARF, appy, cholecystitis, CVA, Diverticulitis, Homicidal, Suicidal, threat to staff... and all critical care pts) @ -No - Lab Data Result diagrams: 05/01/23 02:21 05/01/23 02:21 Lab Results 05/01/23 05/01/23 05/01/23 Range/Units 02:09 02:21 02:21 WBC 13.8 H (3.8-10.6) k/uL RBC 3.26 L (4.30-5.90) m/uL Hgb 10.9 L (13.0-17.5) gm/dL Hct 32.5 L (39.0-53.0) % MCV 99.7 (80.0-100.0) fL MCH 33.5 (25.0-35.0) pg MCHC 33.6 (31.0-37.0) g/dL RDW 14.8 (11.5-15.5) % Plt Count 162 (150-450) k/uL MPV 7.6 Neutrophils % 85 % Lymphocytes % 7 % Monocytes % 4 % Eosinophils % 2 % Basophils % 0 % Neutrophils # 11.7 H (1.3-7.7) k/uL Lymphocytes # 1.0 (1.0-4.8) k/uL Monocytes # 0.5 (0-1.0) k/uL Eosinophils # 0.3 (0-0.7) k/uL Basophils # 0.0 (0-0.2) k/uL Macrocytosis Slight PT (9.0-12.0) sec INR (<1.2) APTT (22.0-30.0) sec VBG pH (7.31-7.41) VBG pCO2 (37-51) mmHg VBG HCO3 (24-28) mmol/L Sodium 134 L (137-145) mmol/L Potassium 4.0 (3.5-5.1) mmol/L Chloride 94 L (98-107) mmol/L Carbon Dioxide 32 H (22-30) mmol/L Anion Gap 8 mmol/L BUN 31 H (9-20) mg/dL Creatinine 3.06 H (0.66-1.25) mg/dL Est GFR (CKD-EPI)AfAm 24 (>60 ml/min/1.73 sqM) Est GFR (CKD-EPI)NonAf 21 (>60 ml/min/1.73 sqM) Glucose 90 (74-99) mg/dL POC Glucose (mg/dL) 99 (70-110) mg/dL POC Glu Rf Test Engineer ID Desirae Gleason Calcium 9.2 (8.4-10.2) mg/dL Magnesium 2.2 (1.6-2.3) mg/dL Total Bilirubin 0.7 (0.2-1.3) mg/dL AST 31 (17-59) U/L ALT 20 (4-49) U/L Alkaline Phosphatase 78 (38-126) U/L Ammonia (<30) umol/L Total Protein 6.9 (6.3-8.2) g/dL Albumin 3.3 L (3.5-5.0) g/dL Lipase 106 (23-300) U/L Urine Color Urine Appearance (Clear) Urine pH (5.0-8.0) Ur Specific P[place] (1.001-1.035) Urine Protein (Negative) Urine Glucose (UA) (Negative) Urine Ketones (Negative) Urine Blood (Negative) Urine Nitrite (Negative) Urine Bilirubin (Negative) Urine Urobilinogen (<2.0) mg/dL Ur Leukocyte Esterase (Negative) Urine RBC (0-5) /hpf Urine WBC (0-5) /hpf Urine WBC Clumps (None) /hpf Ur Squamous Epith Cells (0-4) /hpf Urine Bacteria (None) /hpf Urine Mucus (None) /hpf 05/01/23 05/01/23 05/01/23 Range/Units 02:33 02:59 02:59 WBC (3.8-10.6) k/uL RBC (4.30-5.90) m/uL Hgb (13.0-17.5) gm/dL Hct (39.0-53.0) % MCV (80.0-100.0) fL MCH (25.0-35.0) pg MCHC (31.0-37.0) g/dL RDW (11.5-15.5) % Plt Count (150-450) k/uL MPV Neutrophils % % Lymphocytes % % Monocytes % % Eosinophils % % Basophils % % Neutrophils # (1.3-7.7) k/uL Lymphocytes # (1.0-4.8) k/uL Monocytes # (0-1.0) k/uL Eosinophils # (0-0.7) k/uL Basophils # (0-0.2) k/uL Macrocytosis PT 11.0 (9.0-12.0) sec INR 1.0 (<1.2) APTT 28.2 (22.0-30.0) sec VBG pH (7.31-7.41) VBG pCO2 (37-51) mmHg VBG HCO3 (24-28) mmol/L Sodium (137-145) mmol/L Potassium (3.5-5.1) mmol/L Chloride (98-107) mmol/L Carbon Dioxide (22-30) mmol/L Anion Gap mmol/L BUN (9-20) mg/dL Creatinine (0.66-1.25) mg/dL Est GFR (CKD-EPI)AfAm (>60 ml/min/1.73 sqM) Est GFR (CKD-EPI)NonAf (>60 ml/min/1.73 sqM) Glucose (74-99) mg/dL POC Glucose (mg/dL) 129 H (70-110) mg/dL POC Glu Rf Test Engineer ID Gleason, Desirae Calcium (8.4-10.2) mg/dL Magnesium (1.6-2.3) mg/dL Total Bilirubin (0.2-1.3) mg/dL AST (17-59) U/L ALT (4-49) U/L Alkaline Phosphatase (38-126) U/L Ammonia <9 (<30) umol/L Total Protein (6.3-8.2) g/dL Albumin (3.5-5.0) g/dL Lipase (23-300) U/L Urine Color Urine Appearance (Clear) Urine pH (5.0-8.0) Ur Specific [place] (1.001-1.035) Urine Protein (Negative) Urine Glucose (UA) (Negative) Urine Ketones (Negative) Urine Blood (Negative) Urine Nitrite (Negative) Urine Bilirubin (Negative) Urine Urobilinogen (<2.0) mg/dL Ur Leukocyte Esterase (Negative) Urine RBC (0-5) /hpf Urine WBC (0-5) /hpf Urine WBC Clumps (None) /hpf Ur Squamous Epith Cells (0-4) /hpf Urine Bacteria (None) /hpf Urine Mucus (None) /hpf 05/01/23 05/01/23 05/01/23 Range/Units 02:59 04:02 05:17 WBC (3.8-10.6) k/uL RBC (4.30-5.90) m/uL Hgb (13.0-17.5) gm/dL Hct (39.0-53.0) % MCV (80.0-100.0) fL MCH (25.0-35.0) pg MCHC (31.0-37.0) g/dL RDW (11.5-15.5) % Plt Count (150-450) k/uL MPV Neutrophils % % Lymphocytes % % Monocytes % % Eosinophils % % Basophils % % Neutrophils # (1.3-7.7) k/uL Lymphocytes # (1.0-4.8) k/uL Monocytes # (0-1.0) k/uL Eosinophils # (0-0.7) k/uL Basophils # (0-0.2) k/uL Macrocytosis PT (9.0-12.0) sec INR (<1.2) APTT (22.0-30.0) sec VBG pH 7.49 H (7.31-7.41) VBG pCO2 45 (37-51) mmHg VBG HCO3 34 H (24-28) mmol/L Sodium (137-145) mmol/L Potassium (3.5-5.1) mmol/L Chloride (98-107) mmol/L Carbon Dioxide (22-30) mmol/L Anion Gap mmol/L BUN (9-20) mg/dL Creatinine (0.66-1.25) mg/dL Est GFR (CKD-EPI)AfAm (>60 ml/min/1.73 sqM) Est GFR (CKD-EPI)NonAf (>60 ml/min/1.73 sqM) Glucose (74-99) mg/dL POC Glucose (mg/dL) 266 H (70-110) mg/dL POC Glu Rf Test Engineer ID Desirae Gleason Calcium (8.4-10.2) mg/dL Magnesium (1.6-2.3) mg/dL Total Bilirubin (0.2-1.3) mg/dL AST (17-59) U/L ALT (4-49) U/L Alkaline Phosphatase (38-126) U/L Ammonia (<30) umol/L Total Protein (6.3-8.2) g/dL Albumin (3.5-5.0) g/dL Lipase (23-300) U/L Urine Color Dark Yellow Urine Appearance Cloudy (Clear) Urine pH 7.5 (5.0-8.0) Ur Specific [place] 1.028 (1.001-1.035) Urine Protein 4+ H (Negative) Urine Glucose (UA) 4+ H (Negative) Urine Ketones Negative (Negative) Urine Blood Large H (Negative) Urine Nitrite Negative (Negative) Urine Bilirubin Negative (Negative) Urine Urobilinogen <2.0 (<2.0) mg/dL Ur Leukocyte Esterase Moderate H (Negative) Urine RBC 70 H (0-5) /hpf Urine WBC >182 H (0-5) /hpf Urine WBC Clumps Few H (None) /hpf Ur Squamous Epith Cells 1 (0-4) /hpf Urine Bacteria Rare H (None) /hpf Urine Mucus Rare H (None) /hpf Disposition Clinical Impression: UTI (urinary tract infection) Disposition: HOME SELF-CARE Condition: Stable Instructions (If sedation given, give patient instructions): Urinary Tract Inf ection in Men (DC) Prescriptions: Cephalexin [Keflex] 500 mg PO Q6HR 1 Days #20 cap Is patient prescribed a controlled substance at d/c from ED?: No Referrals: Hayes Oshea [Primary Care Provider] - 1-2 days Time of Disposition: 05:30
[2023-05-01 03:49] LABS: Partial Thromboplastin Time 28.2 sec (22.0-30.0)
[2023-05-01 03:51] LABS: VBG PH 7.49 (7.31-7.41)
[2023-05-01 04:04] LABS: Glucose,Whole Blood 266 mg/dL (70-110)
--- NOTE | 2023-05-01 04:23 | XR ---
EXAM: XR Chest, 2 Views CLINICAL HISTORY: ITS.REASON XR Reason: Lethargic TECHNIQUE: Frontal and lateral views of the chest. COMPARISON: 04/22/2023 FINDINGS: Lungs: Few scattered subcentimeter areas of airspace opacities, decreased at the lung bases, slightly increased in the right lower lobe superior segment/upper lobe posterior segment. Pleural space: Unremarkable. No pneumothorax. Heart: Unremarkable. No cardiomegaly. Mediastinum: Unremarkable. Bones/joints: Unremarkable. IMPRESSION: 1. Increasing basilar aeration. 2. Developing right upper lobe/lower lobe superior segmental junction pneumonia or atelectasis.
[2023-05-01 05:28] LABS: Appearance,Urine Cloudy (Clear); Bacteria,Urine Rare /hpf; Bilirubin,Urine Negative (Negative); Blood,Urine Large (Negative); Glucose,Urine (UA) 4+ (Negative); Ketones,Urine Negative (Negative); Leukocyte Esterase,Urine Moderate (Negative); Mucus,Urine Rare /hpf; Nitrite,Urine Negative (Negative); PH, Urine 7.5 (5.0-8.0); Protein,Urine 4+ (Negative); RBC,Urine 70 /hpf (0-5); Specific Gravity,Urine 1.028 (1.001-1.035); Squamous Epithelial Cell,Urine 1 /hpf (0-4); Urobilinogen,Urine <2.0 mg/dL (<2.0); WBC,Urine >182 /hpf (0-5)
[2023-05-01 05:29] LABS: Color,Urine Dark Yellow
[2023-05-01] MEDS ORDERED: cefTRIAXone IN SWFI 1,000 MG/10 ML SYRINGE IVP STA (05:31)
[2023-05-01] MEDS ORDERED: CIPROFLOXACIN HCL 500 MG TAB PO STA (05:44)
[2023-05-01 05:54] VITALS: BP 135/78; PULSE 87; RESP 16; TEMP 98.1
== END 2023-05-01 05:53 | disposition home or self-care (01) ==
LOC: EC 02:05
DX: N39.0 Urinary tract infection, site not specified (principal); I50.9 Heart failure, unspecified; E11.9 Type 2 diabetes mellitus without complications; I13.2 Hypertensive heart and chronic kidney disease with heart failure and with stage 5 chronic kidney disease, or end stage renal disease; I25.2 Old myocardial infarction; G47.30 Sleep apnea, unspecified; E03.9 Hypothyroidism, unspecified; N18.6 End stage renal disease; Z86.59 Personal history of other mental and behavioral disorders; Z87.891 Personal history of nicotine dependence; Z79.4 Long term (current) use of insulin; Z79.890 Hormone replacement therapy; Z79.01 Long term (current) use of anticoagulants; Z99.2 Dependence on renal dialysis; Z79.899 Other long term (current) drug therapy
CPT/HCPCS: 36415; 71046; 80053; 81001; 82140; 82803; 83690; 83735; 85025; 85610; 85730; 93005; 99285

== ENCOUNTER 2023-06-01 00:40 | Emergency (ER) | payer MEDICARE, BC ==
[2023-06-01 00:55] VITALS: RESP 20
--- NOTE | 2023-06-01 01:56 | ED ---
General Adult HPI - General Chief complaint: Fall Stated complaint: Fall Time Seen by Provider: 06/01/23 00:55 Source: patient, EMS Mode of arrival: EMS - History of Present Illness Initial comments: Dictation was produced using [employer] dictation software. please excuse any g rammatical, word or spelling errors. Chief Complaint: 62-year-old male presents to the emergency department for fall History of Present Illness: 62-year-old male presents emergency department after he fell out of bed. Patient rolled over and fell struck his head on the ground. Denies any loss of conscious. No neck pain. Patient reports taking a coagulation medications. Patient has had chronic shortness of breath. Denies any chest pain. The ROS documented in this emergency department record has been reviewed and confirmed by me. Those systems with pertinent positive or negative responses have been documented in the HPI. All other systems are other negative and/or no ncontributory. - Related Data Home Medications Medication Instructions Recorded Confirmed Levothyroxine Sodium 100 mcg PO DAILY 07/06/17 04/22/23 Torsemide [Demadex] 40 mg PO DAILY 09/10/19 04/22/23 Bryanna-Olimpia 1 tab PO DAILY 10/20/20 04/22/23 HYDROcodone/APAP 10-325MG [Peotone 1 tab PO Q6H 11/24/20 04/22/23 10-325] Insulin Regular, Human [Novolin R 15 unit SQ ACHS PRN 11/24/20 04/22/23 Flexpen] Nitroglycerin Sl Tabs [Nitrostat] 0.4 mg SL Q5M PRN 03/11/21 04/22/23 Apixaban [Eliquis] 2.5 mg PO BID 02/16/23 04/22/23 Calcium Carbonate [Tums] 1,000 mg PO AC-TID 04/18/23 04/22/23 Cephalexin [Keflex] 500 mg PO Q12HR 04/18/23 04/22/23 methocarbamoL [Robaxin] 500 - 1,000 mg PO QID PRN 04/18/23 04/22/23 Previous Rx's Medication Instructions Recorded FLUoxetine HCL [PROzac] 40 mg PO DAILY 30 Days #30 cap 10/16/22 Acetaminophen Tab [Tylenol] 650 mg PO Q6HR PRN tab 02/21/23 Insulin Detemir (Levemir) [Levemir] 20 unit SQ HS 30 Days #5 each 02/21/23 metroNIDAZOLE [Flagyl] 500 mg PO TID #42 tab 02/21/23 Aspirin 81 mg PO DAILY #30 tab 04/22/23 Atorvastatin [Lipitor] 80 mg PO HS #30 tab 04/22/23 Midodrine [ProAmatine] 10 mg PO AC-TID PRN #21 tab 04/22/23 Ticagrelor [Brilinta] 90 mg PO BID #60 tab 04/22/23 carvediloL [Coreg] 6.25 mg PO TID #60 tab 04/25/23 Ciprofloxacin HCl [Cipro] 500 mg PO Q12HR 1 Days #14 tab 05/01/23 Allergies Allergy/AdvReac Type Severity Reaction Status Date / Time No Known Allergies Allergy Verified 06/01/23 00:52 Review of Systems ROS Statement: Those systems with pertinent positive or pertinent negative responses have been documented in the HPI. ROS Other: All systems not noted in ROS Statement are negative. Past Medical History Past Medical History: Coronary Artery Disease (CAD), Cancer, Heart Failure, CVA/TIA, Diabetes Mellitus, Eye Disorder, Hypertension, Myocardial Infarction (HI), Renal Disease, Sleep Apnea/CPAP/BIPAP, Thyroid Disorder Additional Past Medical History / Comment(s): unhealing sore left index finger, neuropathy bilateral lower extremity/feet, bilateral eye diabetic retinopathy/poor vision/multiple injections, ESRD with hemodialysis T/TH/SAT from 6:15 to 11:00, anemia, "mini strokes" x2, AVANI with CPap use, occasional low back pain/disc disease, gout, hypothyroid Last Myocardial Infarction Date:: 10/20/20 History of Any Multi-Drug Resistant Organisms: MRSA Date of last positivie culture/infection: 12/10/21 MDRO Source:: Finger-Right 5th Past Surgical History: Adenoidectomy, Bariatric Surgery, Cholecystectomy, Heart Catheterization, Heart Catheterization With Stent, Orthopedic Surgery, Tonsillectomy Additional Past Surgical History / Comment(s): 10/22/20 PCI with stents x2, lap banding, FX of right ankle repair pins / plate, fistual lt arm jul 2018, lt shoulder sx (d/t separation), colonoscopies, bilateral cataract removals/lens implants. LIF surgery 08/11/21 R LEG stacey placed January 2023 Past Anesthesia/Blood Transfusion Reactions: Motion Sickness Additional Past Anesthesia/Blood Transfusion Reaction / Comment(s): CLAUSTERPHOBIA Date of Last Stent Placement:: 10/22/20 Past Psychological History: Anxiety Smoking Status: Former smoker - Past Family History Mother History Unknown: Yes Family Medical History: Coronary Artery Disease (CAD), Myocardial Infarction (HI) Additional Family Medical History / Comment(s): Mother at age 58 from multi ple sclerosis Father Family Medical History: CVA/TIA, Myocardial Infarction (HI) Additional Family Medical History / Comment(s): Father had history of HI and CVA followed by a second HI and CVA and at age 65. Brother(s) Additional Family Medical History / Comment(s): . General Exam - General Exam Comments Initial Comments: PHYSICAL EXAM: General Impression: Alert and oriented x3, not in acute distress HEENT: Abrasion to the forehead, extra-ocular movements intact, pupils equal and reactive to light bilaterally, mucous membranes moist. Cardiovascular: Heart regular rate and rhythm Chest: Able to complete full sentences, no retractions, no tachypnea Abdomen: abdomen soft, non-tender, non-distended, no organomegaly Musculoskeletal: Pulses present and equal in all extremities, no peripheral edema Motor: no focal deficits noted Neurological: CN II-XII grossly intact, no focal motor or sensory deficits noted Skin: Intact with no visualized rashes Psych: Normal affect and mood Course Vital Signs 06/01/23 06/01/23 06/01/23 00:45 00:53 04:03 Temperature 98.4 F Pulse Rate 74 73 80 Respiratory 20 20 20 Rate Blood Pressure 135/68 147/87 O2 Sat by Pulse 100 100 100 Oximetry EKG Findings - EKG Comments: EKG Findings:: My EKG interpretation: Ventricular rate 73, sinus rhythm, MT interval 110, QRS 16, QTC 463. No MT prolongation, no QTC prolongation, no ST or T-wave changes noted. EKG compared to 05/01/2023 showing no changes. Overall, this EKG is unremarkable Medical Decision Making - Medical Decision Making Was pt. sent in by a medical professional or institution (, PA, [employer] TEACHER, urgent care, hospital, or retirement...) When possible be specific @ -No Did you speak to anyone other than the patient for history (EMS, parent, family, police, friend...)? What history was obtained from this source @ -No Did you review nursing and triage notes (agree or disagree)? Why? @ -I reviewed and agree with nursing and triage notes Were old charts reviewed (outside hosp., previous admission, EMS record, old EKG, old radiological studies, urgent care reports/EKG's, retirement records)? Report findings @ -No old charts were reviewed Differential Diagnosis (chest pain, altered mental status, abdominal pain women, abdominal pain men, vaginal bleeding, musculoskeletal, weakness, fever, dyspnea, syncope, headache, dizziness, GI bleed, back pain, seizure, CVA, palpatations, mental health)? @ -not applicable EKG interpreted by me (3pts min.). @ -See above X-rays interpreted by me (1pt min.). @ -Chest x-ray shows no acute process CT interpreted by me (1pt min.). @Computed tomography scan of the brain and C-spine shows no acute process U/S interpreted by me (1pt. min.). @ -None done What testing was considered but not performed or refused? (CT, X-rays, U/S, labs)? Why? @ -None What meds were considered but not given or refused? Why? @ -None Did you discuss the management of the patient with other professionals (professionals i.e. , PA, [employer] TEACHER, lab, RT, psych nurse, social contact worker, business development coordinator, teacher, mounted police officer, oil field caser)? Give summary @ -No Was smoking cessation discussed for >3mins.? @ -No Was critical care preformed (if so, how long)? @ -No Were there social determinants of health that impacted care today? How? (Homelessness, low income, unemployed, alcoholism, drug addiction, transportation, low edu. Level, literacy, decrease access to med. care, longterm, rehab)? @ -No Was there de-escalation of care discussed even if they declined (Discuss DNR or withdrawal of care, Hospice)? DNR status @ -No What co-morbidities impacted this encounter? (DM, HTN, Smoking, COPD, CAD, Ca ncer, CVA, ARF, Chemo, Hep., AIDS, mental health diagnosis, sleep apnea, morbid obesity)? @ -None Was patient admitted / discharged? Hospital course, mention meds given and route, prescriptions, significant lab abnormalities, going to OR and other pertinent info. @ -62-year-old male presents to the ER after closed head injury after he fell out of bed. Vital signs are stable. Patient is well-appearing. Patient not dyspneic. Patient states that he has chronic shortness of breath. X-rays unremarkable. Does have elevated BNP however clinically he looks well and showing signs of respiratory distress. His lungs are clear. Rest of labs are within acceptable limits. Patient be discharged. Undiagnosed new problem with uncertain prognosis? @ -No Drug Therapy requiring intensive monitoring for toxicity (Heparin, Nitro, Insulin, Cardizem)? @ -No Were any procedures done? @ -No Diagnosis/symptom? Acute, or Chronic, or Acute on Chronic? Uncomplicated (without systemic symptoms) or Complicated (systemic symptoms)? @ -Fall, closed head injury Side effects of treatment? @ -No Exacerbation, Progression, or Severe Exacerbation? @ -No Poses a threat to life or bodily function? How? (Chest pain, USA, HI, pneumonia, PE, COPD, DKA, ARF, appy, cholecystitis, CVA, Diverticulitis, Homicidal, Suicidal, threat to staff... and all critical care pts) @ -No - Lab Data Result diagrams: 06/01/23 02:01 06/01/23 02:01 Lab Results 06/01/23 06/01/23 06/01/23 Range/Units 02:01 02:01 02:01 WBC 10.0 (3.8-10.6) k/uL RBC 2.99 L (4.30-5.90) m/uL Hgb 9.7 L (13.0-17.5) gm/dL Hct 29.4 L (39.0-53.0) % MCV 98.3 (80.0-100.0) fL MCH 32.4 (25.0-35.0) pg MCHC 32.9 (31.0-37.0) g/dL RDW 14.7 (11.5-15.5) % Plt Count 179 (150-450) k/uL MPV 8.1 Neutrophils % 79 % Lymphocytes % 9 % Monocytes % 8 % Eosinophils % 2 % Basophils % 0 % Neutrophils # 7.9 H (1.3-7.7) k/uL Lymphocytes # 0.9 L (1.0-4.8) k/uL Monocytes # 0.8 (0-1.0) k/uL Eosinophils # 0.2 (0-0.7) k/uL Basophils # 0.0 (0-0.2) k/uL Poikilocytosis Slight Sodium 134 L (137-145) mmol/L Potassium 4.4 (3.5-5.1) mmol/L Chloride 93 L (98-107) mmol/L Carbon Dioxide 33 H (22-30) mmol/L Anion Gap 8 mmol/L BUN 26 H (9-20) mg/dL Creatinine 3.19 H (0.66-1.25) mg/dL Est GFR (CKD-EPI)AfAm 23 (>60 ml/min/1.73 sqM) Est GFR (CKD-EPI)NonAf 20 (>60 ml/min/1.73 sqM) Glucose 72 L (74-99) mg/dL Calcium 9.9 (8.4-10.2) mg/dL Troponin I 0.026 (0.000-0.034) ng/mL NT-Pro-B Natriuret Pep 411225 pg/mL Influenza Type A (PCR) (Not Detectd) Influenza Type B (PCR) (Not Detectd) RSV (PCR) (Not Detectd) SARS-CoV-2 (PCR) (Not Detectd) 06/01/23 Range/Units 02:06 WBC (3.8-10.6) k/uL RBC (4.30-5.90) m/uL Hgb (13.0-17.5) gm/dL Hct (39.0-53.0) % MCV (80.0-100.0) fL MCH (25.0-35.0) pg MCHC (31.0-37.0) g/dL RDW (11.5-15.5) % Plt Count (150-450) k/uL MPV Neutrophils % % Lymphocytes % % Monocytes % % Eosinophils % % Basophils % % Neutrophils # (1.3-7.7) k/uL Lymphocytes # (1.0-4.8) k/uL Monocytes # (0-1.0) k/uL Eosinophils # (0-0.7) k/uL Basophils # (0-0.2) k/uL Poikilocytosis Sodium (137-145) mmol/L Potassium (3.5-5.1) mmol/L Chloride (98-107) mmol/L Carbon Dioxide (22-30) mmol/L Anion Gap mmol/L BUN (9-20) mg/dL Creatinine (0.66-1.25) mg/dL Est GFR (CKD-EPI)AfAm (>60 ml/min/1.73 sqM) Est GFR (CKD-EPI)NonAf (>60 ml/min/1.73 sqM) Glucose (74-99) mg/dL Calcium (8.4-10.2) mg/dL Troponin I (0.000-0.034) ng/mL NT-Pro-B Natriuret Pep pg/mL Influenza Type A (PCR) Not Detected (Not Detectd) Influenza Type B (PCR) Not Detected (Not Detectd) RSV (PCR) Not Detected (Not Detectd) SARS-CoV-2 (PCR) Not Detected (Not Detectd) Disposition Clinical Impression: Closed head injury Disposition: HOME SELF-CARE Condition: Good Instructions (If sedation given, give patient instructions): Fall Prevention for Older Adults (ED) Is patient prescribed a controlled substance at d/c from ED?: No Referrals: Hayes Oshea [Primary Care Provider] - 1-2 days Time of Disposition: 04:31
[2023-06-01 02:55] LABS: African American GFR (CKD) 23 (>60 ml/min/1.73 sqM); Anion Gap 8 mmol/L; Basophils % (A) 0 %; Blood Urea Nitrogen 26 mg/dL (9-20); Calcium 9.9 mg/dL (8.4-10.2); Carbon Dioxide 33 mmol/L (22-30); Chloride 93 mmol/L (98-107); Eosinophils # (A) 0.2 k/uL (0-0.7); Eosinophils % (A) 2 %; Glucose 72 mg/dL (74-99); HCT 29.4 % (39.0-53.0); HGB 9.7 gm/dL (13.0-17.5); Lymphocytes # (A) 0.9 k/uL (1.0-4.8); Lymphocytes % (A) 9 %; MCH 32.4 pg (25.0-35.0); MCHC 32.9 g/dL (31.0-37.0); MCV 98.3 fL (80.0-100.0); Mean Platelet Volume 8.1; Monocytes # (A) 0.8 k/uL (0-1.0); Monocytes % (A) 8 %; Neutrophils # (A) 7.9 k/uL (1.3-7.7); Neutrophils % (A) 79 %; Non-African American GFR(CKD) 20 (>60 ml/min/1.73 sqM); Platelet Count 179 k/uL (150-450); Poikilocytosis Slight; Potassium 4.4 mmol/L (3.5-5.1); RBC 2.99 m/uL (4.30-5.90); RDW 14.7 % (11.5-15.5); Sodium 134 mmol/L (137-145)
--- NOTE | 2023-06-01 03:07 | XR ---
EXAM: XR Chest, 1 View CLINICAL HISTORY: ITS.REASON XR Reason: dyspnea TECHNIQUE: Frontal view of the chest. COMPARISON: No relevant prior studies available. FINDINGS: Lungs: No consolidation or mass. Pleural space: Possible trace right effusion Heart: cardiomegaly. Bones/joints: No acute findings. IMPRESSION: No acute cardiopulmonary process. Possible trace right effusion
[2023-06-01 03:14] LABS: NT-Pro-B-Type Natriuretic Pept 104000 pg/mL
--- NOTE | 2023-06-01 03:44 | CT ---
EXAM: CT Head Without Intravenous Contrast CLINICAL HISTORY: ITS.REASON CT Reason: dyspnea TECHNIQUE: Axial computed tomography images of the head/brain without intravenous contrast. CTDI is 45.3 mGy and DLP is 1097 mGy-cm. This CT exam was performed using one or more of the following dose reduction techniques: automated exposure control, adjustment of the mA and/or kV according to patient size, and/or use of iterative reconstruction technique. COMPARISON: No relevant prior studies available. FINDINGS: Brain: No hemorrhage or mass effect. Ventricles: No hydrocephalus. Bones/joints: Unremarkable. Soft tissues: Unremarkable. Sinuses: No air fluid level. Mastoid air cells: Clear. IMPRESSION: No acute hemorrhage, hydrocephalus, or mass effect. EXAM: CT Cervical Spine Without Intravenous Contrast CLINICAL HISTORY: ITS.REASON CT Reason: dyspnea TECHNIQUE: Axial computed tomography images of the cervical spine without intravenous contrast. CTDI is 27.1 mGy and DLP is 711.8 mGy-cm. This CT exam was performed using one or more of the following dose reduction techniques: automated exposure control, adjustment of the mA and/or kV according to patient size, and/or use of iterative reconstruction technique. COMPARISON: No relevant prior studies available. FINDINGS: Vertebrae: No acute fracture. Discs/spinal canal/neural foramina: degenerative changes. Soft tissues: No prevertebral swelling. Enlarged right thyroid gland with multiple nodules. Severely calcified right ICA causing stenosis. IMPRESSION: No acute fracture or subluxation. Enlarged right thyroid gland with multiple nodules. Recommend outpatient thyroid ultrasound if it has not been evaluated yet. Severely calcified right ICA causing stenosis. Recommend outpatient vascular ultrasound.
[2023-06-01 04:06] VITALS: BP 147/87
[2023-06-01 04:42] LABS: Glucose,Whole Blood 97 mg/dL (70-110)
[2023-06-01 05:02] VITALS: PULSE 79; TEMP 97.9
== END 2023-06-01 05:03 | disposition home or self-care (01) ==
LOC: EC 00:40
DX: S09.90XA Unspecified injury of head, initial encounter (principal); I25.10 Atherosclerotic heart disease of native coronary artery without angina pectoris; E03.9 Hypothyroidism, unspecified; E11.22 Type 2 diabetes mellitus with diabetic chronic kidney disease; I13.2 Hypertensive heart and chronic kidney disease with heart failure and with stage 5 chronic kidney disease, or end stage renal disease; N18.6 End stage renal disease; I50.9 Heart failure, unspecified; I25.2 Old myocardial infarction; G47.30 Sleep apnea, unspecified; Z79.01 Long term (current) use of anticoagulants; Z79.02 Long term (current) use of antithrombotics/antiplatelets; Z79.4 Long term (current) use of insulin; Z79.890 Hormone replacement therapy; Z86.73 Personal history of transient ischemic attack (TIA), and cerebral infarction without residual deficits; Z87.891 Personal history of nicotine dependence; Z90.49 Acquired absence of other specified parts of digestive tract; Z95.5 Presence of coronary angioplasty implant and graft; Z99.2 Dependence on renal dialysis; Z86.59 Personal history of other mental and behavioral disorders; Z20.822 Contact with and (suspected) exposure to COVID-19; W06.XXXA Fall from bed, initial encounter
CPT/HCPCS: 36415; 70450; 71045; 72125; 80048; 83880; 84484; 85025; 87636; 93005; 99285

== ENCOUNTER 2023-07-16 14:09 | Inpatient (IN) | payer MEDICARE, BC ==
[2023-07-16 14:56] LABS: Basophils % (A) 1 %; Eosinophils # (A) 0.2 k/uL (0-0.7); Eosinophils % (A) 2 %; HCT 35.3 % (39.0-53.0); Lymphocytes % (A) 14 %; MCH 33.1 pg (25.0-35.0); MCHC 33.9 g/dL (31.0-37.0); MCV 97.5 fL (80.0-100.0); Mean Platelet Volume 7.7; Monocytes # (A) 0.3 k/uL (0-1.0); Monocytes % (A) 4 %; Neutrophils # (A) 5.6 k/uL (1.3-7.7); Neutrophils % (A) 78 %; Platelet Count 132 k/uL (150-450); Poikilocytosis Slight; RBC 3.62 m/uL (4.30-5.90); RDW 14.8 % (11.5-15.5); WBC 7.2 k/uL (3.8-10.6)
[2023-07-16 15:33] LABS: ALT 33 U/L (4-49); AST 26 U/L (17-59); African American GFR (CKD) 28 (>60 ml/min/1.73 sqM); Albumin 3.8 g/dL (3.5-5.0); Alkaline Phosphatase 88 U/L (38-126); Anion Gap 13 mmol/L; Blood Urea Nitrogen 17 mg/dL (9-20); Calcium 8.7 mg/dL (8.4-10.2); Carbon Dioxide 30 mmol/L (22-30); Chloride 93 mmol/L (98-107); Glucose 287 mg/dL (74-99); Magnesium 1.8 mg/dL (1.6-2.3); Non-African American GFR(CKD) 25 (>60 ml/min/1.73 sqM); Potassium 3.6 mmol/L (3.5-5.1); Sodium 136 mmol/L (137-145); Total Bilirubin 0.5 mg/dL (0.2-1.3)
[2023-07-16 15:35] LABS: Partial Thromboplastin Time 27.2 sec (22.0-30.0); Prothrombin Time 10.6 sec (10.0-12.5)
--- NOTE | 2023-07-16 15:36 | XR ---
EXAMINATION TYPE: XR chest 2V DATE OF EXAM: 07/16/2023 COMPARISON: 05/01/2023 HISTORY: Chest pain TECHNIQUE: Frontal and lateral views of the chest are obtained. FINDINGS: There is marked cardiomegaly. There is mild pulmonary vascular congestion and small bilateral pleural effusions. Findings most consistent with CHF. The osseous structures are intact. IMPRESSION: Acute cardiopulmonary disease with findings most consistent with mild to moderate CHF.
[2023-07-16] MEDS ORDERED: HYDROcodone/APAP 7.5-325MG 1 EACH TAB PO ONE (15:46)
[2023-07-16 16:19] LABS: NT-Pro-B-Type Natriuretic Pept 60700 pg/mL
--- NOTE | 2023-07-16 16:41 | ED ---
Chest Pain HPI - General Chief Complaint: Chest Pain Stated Complaint: CHEST PAINS HEADACHE SOB Time Seen by Provider: 07/16/23 14:18 Source: patient Mode of arrival: ambulatory Limitations: no limitations - History of Present Illness Initial Comments: 62-year-old male with history of renal disease on dialysis, CAD, heart failure, diabetes, hypertension, hyperlipidemia presenting with chief complaint of shortness of breath and chest pain. Symptoms started this morning when he woke up. He states that symptoms are intermittent. Does not know any alleviating or aggravating factors. He does have some swelling to the lower extremities. He denies cough, congestion, sore throat, fever, chills, nausea, vomiting, abdominal pain. He receives dialysis Tuesday and Tuesday, last received today. - Related Data Home Medications Medication Instructions Recorded Confirmed Levothyroxine Sodium 100 mcg PO DAILY 07/06/17 07/16/23 Torsemide [Demadex] 40 mg PO DAILY 09/10/19 07/16/23 Bryanna-Olimpia 1 tab PO DAILY 10/20/20 07/16/23 HYDROcodone/APAP 10-325MG [[place] 1 tab PO Q6H 11/24/20 07/16/23 10-325] Insulin Regular, Human [Novolin R 10 unit SQ ACHS 11/24/20 07/16/23 Flexpen] Apixaban [Eliquis] 2.5 mg PO BID 02/16/23 07/16/23 Atorvastatin [Lipitor] 40 mg PO HS 07/16/23 07/16/23 Calcium Acetate [Phoslo] 667 mg PO AC-TID 07/16/23 07/16/23 Calcium Acetate [Phoslo] 667 mg PO DAILY PRN 07/16/23 07/16/23 Clopidogrel [Plavix] 75 mg PO DAILY 07/16/23 07/16/23 Insulin Regular, Human [Novolin R See Protocol SQ ACHS 07/16/23 07/16/23 Flexpen] LORazepam [Ativan] 0.5 mg PO TID PRN 07/16/23 07/16/23 Previous Rx's Medication Instructions Recorded FLUoxetine HCL [PROzac] 40 mg PO DAILY 30 Days #30 cap 10/16/22 Insulin Detemir (Levemir) [Levemir] 20 unit SQ HS 30 Days #5 each 02/21/23 Midodrine [ProAmatine] 10 mg PO AC-TID PRN #21 tab 04/22/23 carvediloL [Coreg] 6.25 mg PO TID #60 tab 04/25/23 Allergies Allergy/AdvReac Type Severity Reaction Status Date / Time No Known Allergies Allergy Verified 07/16/23 17:16 Review of Systems ROS Statement: Those systems with pertinent positive or pertinent negative responses have been documented in the HPI. ROS Other: All systems not noted in ROS Statement are negative. EKG Findings - EKG Comments: EKG Findings:: Junctional rhythm with occasional ventricular premature complexes. Ventricular rate 86. DE interval 101. QRS 92. QT 374. QTC 418. No acute changes from previous EKG. Past Medical History Past Medical History: Coronary Artery Disease (CAD), Cancer, Heart Failure, CVA/TIA, Diabetes Mellitus, Eye Disorder, Hypertension, Myocardial Infarction ([place]), Renal Disease, Sleep Apnea/CPAP/BIPAP, Thyroid Disorder Additional Past Medical History / Comment(s): unhealing sore left index finger, neuropathy bilateral lower extremity/feet, bilateral eye diabetic retinopathy/poor vision/multiple injections, ESRD with hemodialysis T//SAT from 6:15 to 11:00, anemia, "mini strokes" x2, AVANI with CPap use, occasional low back pain/disc disease, gout, hypothyroid Last Myocardial Infarction Date:: 10/20/20 History of Any Multi-Drug Resistant Organisms: MRSA Date of last positivie culture/infection: 12/10/21 MDRO Source:: Finger-Right 5th Past Surgical History: Adenoidectomy, Bariatric Surgery, Cholecystectomy, Heart Catheterization, Heart Catheterization With Stent, Orthopedic Surgery, Tonsillectomy Additional Past Surgical History / Comment(s): 10/22/20 PCI with stents x2, lap b anding, FX of right ankle repair pins / plate, fistual lt arm jul 2018, lt shoulder sx (d/t separation), colonoscopies, bilateral cataract removals/lens implants. LIF surgery 08/11/21 R LEG stacey placed January 2023 Past Anesthesia/Blood Transfusion Reactions: Motion Sickness Additional Past Anesthesia/Blood Transfusion Reaction / Comment(s): CLAUSTERPH OBIA Date of Last Stent Placement:: 10/22/20 Past Psychological History: Anxiety Smoking Status: Former smoker Past Alcohol Use History: None Reported Past Drug Use History: None Reported - Past Family History Mother History Unknown: Yes Family Medical History: Coronary Artery Disease (CAD), Myocardial Infarction ([place]) Additional Family Medical History / Comment(s): Mother at age 58 from multiple sclerosis Father Family Medical History: CVA/TIA, Myocardial Infarction ([place]) Additional Family Medical History / Comment(s): Father had history of NH and CVA followed by a second NH and CVA and at age 65. Brother(s) Additional Family Medical History / Comment(s): . General Exam Limitations: no limitations General appearance: alert, in no apparent distress Head exam: Present: atraumatic, normocephalic, normal inspection Eye exam: Present: normal appearance, EOMI Neck exam: Present: normal inspection, full ROM Respiratory exam: Present: rales. Absent: respiratory distress, wheezes, rhonchi, stridor Cardiovascular Exam: Present: regular rate, normal rhythm, normal heart sounds. Absent: systolic murmur, diastolic murmur, rubs, gallop, clicks Extremities exam: Present: pedal edema Neurological exam: Present: alert, oriented X3 Psychiatric exam: Present: normal affect, normal mood Skin exam: Present: warm, dry, intact, normal color. Absent: rash Course Vital Signs 07/16/23 07/16/23 07/16/23 14:11 14:44 16:13 Temperature 97.8 F Pulse Rate 111 H 111 H 80 Respiratory 20 16 Rate Blood Pressure 129/65 152/87 O2 Sat by Pulse 99 98 100 Oximetry 07/16/23 17:29 Temperature Pulse Rate 82 Respiratory 14 Rate Blood Pressure 149/75 O2 Sat by Pulse 100 Oximetry Chest Pain MDM - MDM Was pt. sent in by a medical professional or institution (, PA, [employer], urgent care, hospital, or fci...) When possible be specific @ -No Did you speak to anyone other than the patient for history (EMS, parent, family, police, friend...)? What history was obtained from this source @ -No Did you review nursing and triage notes (agree or disagree)? Why? @ -I reviewed and agree with nursing and triage notes Were old charts reviewed (outside hosp., previous admission, EMS record, old EKG, old radiological studies, urgent care reports/EKG's, fci records)? Report findings @ -No old charts were reviewed Differential Diagnosis (chest pain, altered mental status, abdominal pain women, abdominal pain men, vaginal bleeding, weakness, fever, dyspnea, syncope, headache, dizziness, GI bleed, back pain, seizure, CVA, palpatations, mental health, musculoskeletal)? @ -[facility] Differential Chest Pain: Stable Angina, Unstable Angina, STEMI, NSTEMI Aortic Dissection, Pneumothorax, Musculoskeletal, Esophageal Spasm GERD, Cholecystitis, Pancreatitis, Zoster This is not meant to be an all-inclusive list. EKG interpreted by me (3pts min.). @ -As above X-rays interpreted by me (1pt min.). @ -Acute cardio pulmonary disease with findings most consistent with [id number] CHF CT interpreted by me (1pt min.). @ -None done U/S interpreted by me (1pt. min.). @ -None done What testing was considered but not performed or refused? (CT, X-rays, U/S, labs)? Why? @ -None What meds were considered but not given or refused? Why? @ -None Did you discuss the management of the patient with other professionals (professionals i.e. , PA, [employer], lab, RT, psych nurse, medical social consultant, counter weigher, teacher, chief strategy officer, caseworker)? Give summary @ -I spoke with Ingrid Schneider from [facility] who accepted admission Was smoking cessation discussed for >3mins.? @ -No Was critical care preformed (if so, how long)? @ -No Were there social determinants of health that impacted care today? How? (Homelessness, low income, unemployed, alcoholism, drug addiction, transportation, low edu. Level, literacy, decrease access to med. care, fdc, rehab)? @ -No Was there de-escalation of care discussed even if they declined (Discuss DNR or withdrawal of care, Hospice)? DNR status @ -No What co-morbidities impacted this encounter? (DM, HTN, Smoking, COPD, CAD, Cancer, CVA, ARF, Chemo, Hep., AIDS, mental health diagnosis, sleep apnea, morbid obesity)? @ -Diabetes, renal disease, hypertension, dialysis, this is not an all- inclusive list Was patient admitted / discharged? Hospital course, mention meds given and route, prescriptions, significant lab abnormalities, going to OR and other pertinent info. @ -62-year-old male presenting with chief complaint of chest pain and shortness of breath that started this morning when he woke up. Physical exam is conducted. BNP 60,700 and troponin 0.047. Chest x-ray corresponds with CHF exacerbation. Patient is started on Lasix 40 mg twice a day. Patient will be admitted for CHF exacerbation. Nephrology and cardiology are consulted. Patient is agreeable with this plan. I discussed this case with my attending Dr. Pickering Undiagnosed new problem with uncertain prognosis? @ -No Drug Therapy requiring intensive monitoring for toxicity (Heparin, Nitro, Insulin, Cardizem)? @ -No Were any procedures done? @ -No Diagnosis/symptom? @ -CHF Acute, or Chronic, or Acute on Chronic? @ -Acute on chronic Uncomplicated (without systemic symptoms) or Complicated (systemic symptoms)? @ -Complicated Side effects of treatment? @ -No Exacerbation, Progression, or Severe Exacerbation? @ -Exacerbation Poses a threat to life or bodily function? How? (Chest pain, [place], NH, pneumonia, PE, COPD, DKA, ARF, appy, cholecystitis, CVA, Diverticulitis, Homicidal, Suicidal, threat to staff... and all critical care pts) @ -Yes Disposition Clinical Impression: Congestive heart failure (CHF) Disposition: ADMITTED IP TO THIS HOSP Condition: Fair Time of Disposition: 16:41
[2023-07-16] MEDS ORDERED: HYDROcodone/APAP 5-325MG 1 EACH TAB PO PRN (16:46)
[2023-07-16] MEDS ORDERED: NALOXONE 0.4 MG/ML 1 ML VIAL IV PRN (16:46)
[2023-07-16] MEDS ORDERED: MORPHINE SULFATE 4 MG/ML SYRINGE IV PRN (16:46)
[2023-07-16] MEDS ORDERED: CALCIUM ACETATE 667 MG TAB PO PRN (20:04)
[2023-07-16] MEDS ORDERED: MIDODRINE 5 MG TAB PO PRN (20:04)
[2023-07-16 20:23] LABS: Glucose,Whole Blood 438 mg/dL (70-110)
[2023-07-16] MEDS ORDERED: DEXTROSE 50% SYRINGE 50 ML IVP PRN ×2 (20:30)
[2023-07-16] MEDS: HYDROcodone/APAP 10-325MG 1 EACH TAB PO SCH (20:44)
[2023-07-16] MEDS: LORazepam 0.5 MG TAB PO PRN (20:44)
[2023-07-16] MEDS: carvediloL 6.25 MG TAB PO SCH (20:44)
[2023-07-16] MEDS: ATORVASTATIN 40 MG TAB PO SCH (20:44)
[2023-07-16] MEDS: APIXABAN 2.5 MG TABLET PO SCH (20:48)
[2023-07-16] MEDS: MELATONIN 3 MG TABLET PO SCH (20:57)
[2023-07-16] MEDS: INSULIN ASPART (NovoLOG) 100 UNIT/ML VIAL SQ SCH (20:59)
[2023-07-16] MEDS: INSULIN DETEMIR (LEVEMIR) 100 UNIT/ML SYR SQ SCH (20:59)
[2023-07-16] MEDS: FUROSEMIDE 10 MG/ML 4 ML VIAL IV SCH (21:11)
[2023-07-17 00:33] LABS: Glucose,Whole Blood 182 mg/dL (70-110)
[2023-07-17] MEDS: HYDROcodone/APAP 10-325MG 1 EACH TAB PO SCH ×4 (02:29→20:33)
[2023-07-17 06:05] LABS: Glucose,Whole Blood 95 mg/dL (70-110)
[2023-07-17] MEDS: INSULIN ASPART (NovoLOG) 100 UNIT/ML VIAL SQ SCH ×4 (06:07→20:34)
[2023-07-17] MEDS: CALCIUM ACETATE 667 MG TAB PO SCH ×3 (06:09→16:59)
[2023-07-17] MEDS: LEVOTHYROXINE 100 MCG TAB PO SCH (06:09)
[2023-07-17] MEDS: carvediloL 6.25 MG TAB PO SCH ×3 (08:23→20:33)
[2023-07-17] MEDS: CLOPIDOGREL 75 MG TAB PO SCH (08:23)
[2023-07-17] MEDS: FOLIC ACID-VIT B COMPLEX-VIT C 1 CAP PO SCH (08:23)
[2023-07-17] MEDS: APIXABAN 2.5 MG TABLET PO SCH ×2 (08:23→20:33)
[2023-07-17] MEDS: FLUoxetine HCL 20 MG CAP PO SCH (08:23)
[2023-07-17] MEDS: FUROSEMIDE 10 MG/ML 4 ML VIAL IV SCH ×2 (08:24→20:33)
[2023-07-17] MEDS: LORazepam 0.5 MG TAB PO PRN ×2 (08:26→20:33)
--- NOTE | 2023-07-17 09:38 | P.HPIM ---
History of Present Illness 62-year-old pleasant male with the end-stage renal disease hemodialysis coronary artery disease congestive heart failure with EF of around 25% came in with the complaints of chest pressure like sensation mild nonradiating with associated diaphoresis with mildly elevated troponin which can be explained by a renal failure, had a cardiac catheterization and stenting in month of April patient to dialysis sessions are Tuesday and Tuesday. Patient had dialysis yesterday was also having some shortness of breath today and some pressure in the chest chest x-ray did show pulmonary edema with bilateral pleural effusions patient doesn't urinate much is on Demadex at home. Etiology and nephrology were consulted. REVIEW OF SYSTEMS: CONSTITUTIONAL: No fever, no malaise, no fatigue. HEENT: No recent visual problems or hearing problems. Denied any sore throat. CARDIOVASCULAR: No PND, no palpitations, no syncope. PULMONARY: no cough, no hemoptysis. GASTROINTESTINAL: No diarrhea, no nausea, no vomiting, no abdominal pain. NEUROLOGICAL: No headaches, no weakness, no numbness. HEMATOLOGICAL: Denies any bleeding or petechiae. GENITOURINARY: Denies any burning micturition, frequency, or urgency. MUSCULOSKELETAL/RHEUMATOLOGICAL: Denies any joint pain, swelling, or any muscle pain. ENDOCRINE: Denies any polyuria or polydipsia. The rest of the 14-point review of systems is negative. PHYSICAL EXAMINATION: GENERAL: The patient is alert and oriented x3, not in any acute distress. Well developed, well nourished. HEENT: Pupils are round and equally reacting to light. EOMI. No scleral icterus. No conjunctival pallor. Normocephalic, atraumatic. No pharyngeal erythema. No thyromegaly. CARDIOVASCULAR: S1 and S2 present. No murmurs, rubs, or gallops. PULMONARY: Chest is clear to auscultation, no wheezing or crackles. ABDOMEN: Soft, nontender, nondistended, normoactive bowel sounds. No palpable or ganomegaly. MUSCULOSKELETAL: No joint swelling or deformity. EXTREMITIES: No cyanosis, clubbing, or pedal edema. Patient has few fingers that are amputated NEUROLOGICAL: Gross neurological examination did not reveal any focal deficits. SKIN: No rashes. Assessment and plan -Chest pain we'll rule out a concurrent syndromes, cardiology evaluation patient has coronary artery disease recent cardiac catheterization. -Congestive heart failure chronic systolic dysfunction EF of around 25%, end-stage renal disease patient has mild volume or sodium may need another session of hemodialysis patient doesn't urinate much patient is on IV Lasix which will be continued -End-stage renal disease hemodialysis dependent probably secondary to diabetic nephropathy. Nephrology will evaluate the patient -Coronary artery disease -CVA or TIA in the past -Type 2 diabetes mellitus patient will be resumed on home regimen along with sliding scale -Hypertension -Sleep apnea -Hypothyroidism -Atrial fibrillation present to sinus rhythm on anti-correlation which will be continued DVT prophylaxis: On anti-correlation at this time Past Medical History Past Medical History: Coronary Artery Disease (CAD), Cancer, Heart Failure, CVA/TIA, Diabetes Mellitus, Eye Disorder, Hypertension, Myocardial Infarction ([place]), Renal Disease, Sleep Apnea/CPAP/BIPAP, Thyroid Disorder Additional Past Medical History / Comment(s): unhealing sore left index finger, neuropathy bilateral lower extremity/feet, bilateral eye diabetic retinopathy/poor vision/multiple injections, ESRD with hemodialysis T//SAT from 6:15 to 11:00, anemia, "mini strokes" x2, AVANI with CPap use, occasional low back pain/disc disease, gout, hypothyroid Last Myocardial Infarction Date:: 04/19/23 History of Any Multi-Drug Resistant Organisms: MRSA Date of last positivie culture/infection: 12/10/21 MDRO Source:: Finger-Right 5th Past Surgical History: Adenoidectomy, Bariatric Surgery, Cholecystectomy, Heart Catheterization, Heart Catheterization With Stent, Orthopedic Surgery, Tonsillectomy Additional Past Surgical History / Comment(s): 10/22/20 PCI with stents x2, lap banding, FX of right ankle repair pins / plate, fistual lt arm jul 2018, lt shoulder sx (d/t separation), colonoscopies, bilateral cataract removals/lens implants. LIF surgery 08/11/21 R LEG stacey placed January 2023 04/19/23 3 stents Past Anesthesia/Blood Transfusion Reactions: Motion Sickness Additional Past Anesthesia/Blood Transfusion Reaction / Comment(s): CLAUSTERPHOBIA Date of Last Stent Placement:: 04/19/23 Past Psychological History: Anxiety Additional Psychological History / Comment(s): Pt resides with his spouse. He no longer drives d/t vision loss. His spouse drives and organizes his medications for him. He has a walker and uses a wheelchair if going distances (dialysis days). Smoking Status: Former smoker Past Alcohol Use History: None Reported Additional Past Alcohol Use History / Comment(s): Patient was a smoker of 2-3 packs per day for 35 years and quit in 2006. Past Drug Use History: None Reported - Past Family History Mother History Unknown: Yes Family Medical History: Coronary Artery Disease (CAD), Myocardial Infarction ([place]) Additional Family Medical History / Comment(s): Mother at age 58 from multiple sclerosis Father Family Medical History: CVA/TIA, Myocardial Infarction ([place]) Additional Family Medical History / Comment(s): Father had history of [place] and CVA followed by a second [place] and CVA and at age 65. Brother(s) Additional Family Medical History / Comment(s): . Medications and Allergies Home Medications Medication Instructions Recorded Confirmed Type Levothyroxine Sodium 100 mcg PO DAILY 07/06/17 07/16/23 History Torsemide [Demadex] 40 mg PO DAILY 09/10/19 07/16/23 History Bryanna-Olimpia 1 tab PO DAILY 10/20/20 07/16/23 History HYDROcodone/APAP 10-325MG [[place] 1 tab PO Q6H 11/24/20 07/16/23 History 10-325] Insulin Regular, Human [Novolin R 10 unit SQ ACHS 11/24/20 07/16/23 History Flexpen] FLUoxetine HCL [PROzac] 40 mg PO DAILY 30 Days #30 cap 10/16/22 07/16/23 Rx Apixaban [Eliquis] 2.5 mg PO BID 02/16/23 07/16/23 History Insulin Detemir (Levemir) [Levemir] 20 unit SQ HS 30 Days #5 each 02/21/23 07/16/23 Rx Midodrine [ProAmatine] 10 mg PO AC-TID PRN #21 tab 04/22/23 07/16/23 Rx carvediloL [Coreg] 6.25 mg PO TID #60 tab 04/25/23 07/16/23 Rx Atorvastatin [Lipitor] 40 mg PO HS 07/16/23 07/16/23 History Calcium Acetate [Phoslo] 667 mg PO AC-TID 07/16/23 07/16/23 History Calcium Acetate [Phoslo] 667 mg PO DAILY PRN 07/16/23 07/16/23 History Clopidogrel [Plavix] 75 mg PO DAILY 07/16/23 07/16/23 History Insulin Regular, Human [Novolin R See Protocol SQ ACHS 07/16/23 07/16/23 History Flexpen] LORazepam [Ativan] 0.5 mg PO TID PRN 07/16/23 07/16/23 History Allergies Allergy/AdvReac Type Severity Reaction Status Date / Time No Known Allergies Allergy Verified 07/16/23 17:16 Physical Exam Vitals: Vital Signs Temp Pulse Pulse Resp BP BP Pulse Ox 07/17/23 08:00 107 H 16 129/74 100 07/17/23 04:00 97.8 F 102 H 18 161/93 100 07/17/23 01:22 EST 100 18 07/17/23 00:00 97.6 F 100 18 167/91 100 07/16/23 20:00 97.7 F 91 16 181/85 100 07/16/23 18:46 16 134/60 100 07/16/23 17:29 82 14 149/75 100 07/16/23 16:13 80 16 152/87 100 07/16/23 14:44 111 H 98 07/16/23 14:11 97.8 F 111 H 20 129/65 99 Intake and Output 07/16/23 07/17/23 07/17/23 23:59 06:59 14:59 Output Total Balance Output: Urine Other: Voiding Method Weight Results CBC & Chem 7: 07/16/23 14:33 07/16/23 14:33 Labs: Abnormal Lab Results - Last 24 Hours (Table) 07/16/23 07/16/23 07/16/23 Range/Units 14:33 14:33 14:33 RBC 3.62 L (4.30-5.90) m/uL Hgb 12.0 L (13.0-17.5) gm/dL Hct 35.3 L (39.0-53.0) % Plt Count 132 L (150-450) k/uL Sodium 136 L (137-145) mmol/L Chloride 93 L (98-107) mmol/L Creatinine 2.67 H (0.66-1.25) mg/dL Glucose 287 H (74-99) mg/dL POC Glucose (mg/dL) (70-110) mg/dL Troponin I 0.047 H* (0.000-0.034) ng/mL 07/16/23 07/17/23 Range/Units 20:21 00:32 RBC (4.30-5.90) m/uL Hgb (13.0-17.5) gm/dL Hct (39.0-53.0) % Plt Count (150-450) k/uL Sodium (137-145) mmol/L Chloride (98-107) mmol/L Creatinine (0.66-1.25) mg/dL Glucose (74-99) mg/dL POC Glucose (mg/dL) 438 H 182 H (70-110) mg/dL Troponin I (0.000-0.034) ng/mL Thrombosis Risk Factor Assmnt - Choose All That Apply Each Factor Represents 1 point: Heart failure (<1month), Obesity (BMI >25) Each Risk Factor Represents 2 Points: Age 61-74 years Thrombosis Risk Factor Assessment Total Risk Factor Score: 4 Thrombosis Risk Factor Assessment Level: Moderate Risk
[2023-07-17 09:52] LABS: African American GFR (CKD) 17 (>60 ml/min/1.73 sqM); Anion Gap 12 mmol/L; Blood Urea Nitrogen 30 mg/dL (9-20); Calcium 8.5 mg/dL (8.4-10.2); Carbon Dioxide 32 mmol/L (22-30); Chloride 92 mmol/L (98-107); Glucose 106 mg/dL (74-99); Non-African American GFR(CKD) 15 (>60 ml/min/1.73 sqM); Sodium 136 mmol/L (137-145)
--- NOTE | 2023-07-17 10:18 | P.CRDCN ---
History of Present Illness Consult date: 07/17/23 History of present illness: History of Present Illness: The patient is a 62-year-old male with a known history of CAD, severe cardiomyopathy, status post stenting by Dr. Jimenez most recently in April 2023 of the LAD, history of paroxysmal atrial fibrillation, end-stage renal failure we yesterday had brief episodes of chest discomfort, lasting for a few seconds on and off that started prior to his dialysis and occurred after she he came into the emergency room and subsequently admitted. He is pain-free at this time. He feels that his symptoms are different from what he experienced in April at the time of his anterior wall myocardial infarction. He has dyspnea on exertion, stable. He has no dizziness or palpitations. He has a history of paroxysmal atrial fibrillation. He has no clear PND or orthopnea. He stopped smoking in 2006. He had a history of diabetes for over 30 years. In the emergency room he was noted to be in sinus mechanism with elevated NT proBNP and minimally elevated troponin and no acute ST segment changes. Medications: Lipitor 40 mg daily, insulin, midodrine 10 mg 3 times a day, levothyroxine, Demadex 40 mg daily, Coreg 6.25 mg 3 times a day, Plavix 75 mg daily, PhosLo, levothyroxine,Eliquis 2.5 mg twice a day Review of Systems: Respiratory: Has a history of chronic dyspnea, unchanged with no associated recent cough or fever GI: No nausea or vomiting . No history of peptic ulcer disease. No recent GI bleed. : His end-stage renal disease on hemodialysis Nervous System: He has a prior history of TIA Physical Examination: 62-year-old male, alert and oriented no apparent distress,Blood pressure 129/70, Heart rate 100 Head: Normocephalic. Eyes: Sclerae nonicteric. Neck: Good carotid upstroke, no bruit, no jugular venous distention. Lungs: Clear to auscultation. Heart: Regular rate and rhythm, S1-S2, no S3, no rub. Systolic ejection murmur. Abdomen: Soft nontender, positive bowel sounds no organomegaly. Obese Extremities: Trace edema, amputation of the fingers. Labs: Hemoglobin 12, WBC 7.2, initial BUN 17 today 30 with a creatinine of 4.06. NT proBNP 60,700, troponin 0.047, chest x-ray was findings consistent with CHF EKG: Sinus mechanism, poor R-wave progression with rare PVCs Impression: 1. Chest discomfort, probably noncardiac 2. History of severe ischemic cardiomyopathy, patient had elevated NT proBNP probably worsened by the renal failure. On examination he has no significant fluid overload 3. Status post LAD stenting in April 4. Paroxysmal atrial fibrillation, maintaining sinus mechanism 5. History of diabetes 6. History of hyperlipidemia 7. Status post digit amputation Plan: 1. Continue present therapy 2. Obtain an echocardiogram with Doppler 3. Nephrology consultation 4. Follow symptoms and depending on his progress further recommendations will be made. At this time I see no evidence to suggest ACS and no indication for coronary angiography 5. Thank you for this consult we will follow with you Past Medical History Past Medical History: Coronary Artery Disease (CAD), Cancer, Heart Failure, CVA/TIA, Diabetes Mellitus, Eye Disorder, Hypertension, Myocardial Infarction ([place]), Renal Disease, Sleep Apnea/CPAP/BIPAP, Thyroid Disorder Additional Past Medical History / Comment(s): unhealing sore left index finger, neuropathy bilateral lower extremity/feet, bilateral eye diabetic retinopathy/poor vision/multiple injections, ESRD with hemodialysis T//SAT from 6:15 to 11:00, anemia, "mini strokes" x2, AVANI with CPap use, occasional low back pain/disc disease, gout, hypothyroid Last Myocardial Infarction Date:: 04/19/23 History of Any Multi-Drug Resistant Organisms: MRSA Date of last positivie culture/infection: 12/10/21 MDRO Source:: Finger-Right 5th Past Surgical History: Adenoidectomy, Bariatric Surgery, Cholecystectomy, Heart Catheterization, Heart Catheterization With Stent, Orthopedic Surgery, Tonsillectomy Additional Past Surgical History / Comment(s): 10/22/20 PCI with stents x2, lap banding, FX of right ankle repair pins / plate, fistual lt arm jul 2018, lt shoulder sx (d/t separation), colonoscopies, bilateral cataract removals/lens implants. LIF surgery 08/11/21 R LEG stacey placed January 2023 04/19/23 3 stents Past Anesthesia/Blood Transfusion Reactions: Motion Sickness Additional Past Anesthesia/Blood Transfusion Reaction / Comment(s): CLAUSTERPHOBIA Date of Last Stent Placement:: 04/19/23 Past Psychological History: Anxiety Additional Psychological History / Comment(s): Pt resides with his spouse. He no longer drives d/t vision loss. His spouse drives and organizes his medications for him. He has a walker and uses a wheelchair if going distances (dialysis days). Smoking Status: Former smoker Past Alcohol Use History: None Reported Additional Past Alcohol Use History / Comment(s): Patient was a smoker of 2-3 packs per day for 35 years and quit in 2006. Past Drug Use History: None Reported - Past Family History Mother History Unknown: Yes Family Medical History: Coronary Artery Disease (CAD), Myocardial Infarction ([place]) Additional Family Medical History / Comment(s): Mother at age 58 from multiple sclerosis Father Family Medical History: CVA/TIA, Myocardial Infarction ([place]) Additional Family Medical History / Comment(s): Father had history of [place] and CVA followed by a second [place] and CVA and at age 65. Brother(s) Additional Family Medical History / Comment(s): . Medications and Allergies Home Medications Medication Instructions Recorded Confirmed Type Levothyroxine Sodium 100 mcg PO DAILY 07/06/17 07/16/23 History Torsemide [Demadex] 40 mg PO DAILY 09/10/19 07/16/23 History Bryanna-Olimpia 1 tab PO DAILY 10/20/20 07/16/23 History HYDROcodone/APAP 10-325MG [[place] 1 tab PO Q6H 11/24/20 07/16/23 History 10-325] Insulin Regular, Human [Novolin R 10 unit SQ ACHS 11/24/20 07/16/23 History Flexpen] FLUoxetine HCL [PROzac] 40 mg PO DAILY 30 Days #30 cap 10/16/22 07/16/23 Rx Apixaban [Eliquis] 2.5 mg PO BID 02/16/23 07/16/23 History Insulin Detemir (Levemir) [Levemir] 20 unit SQ HS 30 Days #5 each 02/21/2301/02 Rx Midodrine [ProAmatine] 10 mg PO AC-TID PRN #21 tab 04/22/23 07/16/23 Rx carvediloL [Coreg] 6.25 mg PO TID #60 tab 04/25/23 07/16/23 Rx Atorvastatin [Lipitor] 40 mg PO HS 07/16/23 07/16/23 History Calcium Acetate [Phoslo] 667 mg PO AC-TID 07/16/23 07/16/23 History Calcium Acetate [Phoslo] 667 mg PO DAILY PRN 07/16/23 07/16/23 History Clopidogrel [Plavix] 75 mg PO DAILY 07/16/23 07/16/23 History Insulin Regular, Human [Novolin R See Protocol SQ ACHS 07/16/23 07/16/23 History Flexpen] LORazepam [Ativan] 0.5 mg PO TID PRN 07/16/23 07/16/23 History Allergies Allergy/AdvReac Type Severity Reaction Status Date / Time No Known Allergies Allergy Verified 07/16/23 17:16 Physical Exam Vitals: Vital Signs Temp Pulse Pulse Resp BP BP Pulse Ox 07/17/23 08:00 107 H 16 129/74 100 07/17/23 04:00 97.8 F 102 H 18 161/93 100 07/17/23 01:22 EST 100 18 07/17/23 00:00 97.6 F 100 18 167/91 100 07/16/23 20:00 97.7 F 91 16 181/85 100 07/16/23 18:46 16 134/60 100 07/16/23 17:29 82 14 149/75 100 07/16/23 16:13 80 16 152/87 100 07/16/23 14:44 111 H 98 07/16/23 14:11 97.8 F 111 H 20 129/65 99 Intake and Output 07/16/23 07/17/23 07/17/23 23:59 06:59 14:59 Intake Total 118 Output Total Balance 118 Intake: Oral 118 Output: Urine Other: Voiding Method Weight Results 07/16/23 14:33 07/17/23 07:30 Cardiac Enzymes 07/16/23 07/16/23 Range/Units 14:33 14:33 AST 26 (17-59) U/L Troponin I 0.047 H* (0.000-0.034) ng/mL Coagulation 07/16/23 Range/Units 14:33 PT 10.6 (10.0-12.5) sec APTT 27.2 (22.0-30.0) sec CBC 07/16/23 Range/Units 14:33 WBC 7.2 (3.8-10.6) k/uL RBC 3.62 L (4.30-5.90) m/uL Hgb 12.0 L (13.0-17.5) gm/dL Hct 35.3 L (39.0-53.0) % Plt Count 132 L (150-450) k/uL Comprehensive Metabolic Panel 07/16/23 07/17/23 Range/Units 14:33 07:30 Sodium 136 L 136 L (137-145) mmol/L Potassium 3.6 4.0 (3.5-5.1) mmol/L Chloride 93 L 92 L (98-107) mmol/L Carbon Dioxide 30 32 H (22-30) mmol/L BUN 17 30 H (9-20) mg/dL Creatinine 2.67 H 4.06 H (0.66-1.25) mg/dL Glucose 287 H 106 H (74-99) mg/dL Calcium 8.7 8.5 (8.4-10.2) mg/dL AST 26 (17-59) U/L ALT 33 (4-49) U/L Alkaline Phosphatase 88 (38-126) U/L Total Protein 7.0 (6.3-8.2) g/dL Albumin 3.8 (3.5-5.0) g/dL Current Medications Generic Name Dose Route Start Last Admin Trade Name Freq PRN Reason Stop Dose Admin Hydrocodone Bitart/Acetaminophen 1 each 07/16/23 16:46 Hydrocodone/Apap 5-325mg 1 Each Tab PO Q4HR PRN Moderate Pain (Scale 4 to 6) Hydrocodone Bitart/Acetaminophen 1 each 07/16/23 20:15 07/17/23 08:22 Hydrocodone/Apap 10-325mg 1 Each Tab PO 1 each Q6H ALINE Administration Apixaban 2.5 mg 07/16/23 21:00 07/17/23 08:23 Apixaban 2.5 Mg Tablet PO 2.5 mg BID ALINE Administration Protocol Atorvastatin Calcium 40 mg 07/16/23 21:00 07/16/23 20:44 Atorvastatin 40 Mg Tab PO 40 mg HS ALINE Administration Calcium Acetate 667 mg 07/17/23 07:30 07/17/23 06:09 Calcium Acetate 667 Mg Tab PO 667 mg AC-TID ALINE Administration Calcium Acetate 667 mg 07/16/23 20:04 Calcium Acetate 667 Mg Tab PO DAILY PRN SNACKS Carvedilol 6.25 mg 07/16/23 22:00 07/17/23 08:23 Carvedilol 6.25 Mg Tab PO 6.25 mg TID ALINE Administration Clopidogrel Bisulfate 75 mg 07/17/23 09:00 07/17/23 08:23 Clopidogrel 75 Mg Tab PO 75 mg DAILY ALINE Administration Dextrose/Water 25 ml 07/16/23 20:30 Dextrose 50% Syringe 50 Ml IVP PER PROTOCOL PRN Hypoglycemia Protocol Dextrose/Water 50 ml 07/16/23 20:30 Dextrose 50% Syringe 50 Ml IVP PER PROTOCOL PRN Hypoglycemia Protocol Fluoxetine HCl 40 mg 07/17/23 09:00 07/17/23 08:23 Fluoxetine Hcl 20 Mg Cap PO 40 mg DAILY ALINE Administration Furosemide 40 mg 07/16/23 21:00 07/17/23 08:24 Furosemide 10 Mg/Ml 4 Ml Vial IV 40 mg BID LAINE Administration Insulin Aspart 0 unit 07/16/23 21:00 07/17/23 06:07 Insulin Aspart (Novolog) 100 Unit/Ml Vial SQ Not Given ACHS ALINE Protocol Insulin Detemir 20 unit 07/16/23 21:00 07/16/23 20:59 Insulin Detemir (Levemir) 100 Unit/Ml Syr SQ 20 unit HS ALINE Administration Levothyroxine Sodium 100 mcg 07/17/23 06:30 07/17/23 06:09 Levothyroxine 100 Mcg Tab PO 100 mcg DAILY@0630 ALINE Administration Lorazepam 0.5 mg 07/16/23 20:04 07/17/23 08:26 Lorazepam 0.5 Mg Tab PO 0.5 mg TID PRN Administration Anxiety Melatonin 3 mg 07/16/23 21:00 07/16/23 20:57 Melatonin 3 Mg Tablet PO 3 mg HS ALINE Administration Midodrine 10 mg 07/16/23 20:04 Midodrine 5 Mg Tab PO AC-TID PRN Blood Pressure - Low Multivit/Ca Carb/B Cmplx/FA/Prenat 1 each 07/17/23 09:00 07/17/23 08:23 Folic Acid-Vit B Complex-Vit C 1 Cap PO 1 each DAILY ALINE Administration Naloxone HCl 0.2 mg 07/16/23 16:46 Naloxone 0.4 Mg/Ml 1 Ml Vial IV Q2M PRN Opioid Reversal Intake and Output 07/16/23 07/17/23 07/17/23 23:59 06:59 14:59 Intake Total 118 Output Total Balance 118 Intake: Oral 118 Output: Urine Other: Voiding Method Weight 07/16/23 14:33 07/17/23 07:30
--- NOTE | 2023-07-17 11:49 | P.NPCON ---
History of Present Illness - Reason for Consult end stage renal disease - History of Present Illness Reason for consultation: End-stage renal disease History of present illness: Patient is a 63-year-old male seen in renal consultation for end-stage renal disease. He is maintained on hemodialysis on Tuesday schedule. Completed hemodialysis yesterday with nearly 3.5 L ultrafiltration. Patient came to the hospital due to chest pain which is now resolved. He denies any shortness of breath at this time. No vomiting or diarrhea. No fever or chills. Hemodynamically stable. Patient has a history of coronary disease with multiple stents. He has long-standing history of diabetes. Chest x-ray this admission showed CHF findings. He has been seen by cardiology. Echocardiogram is pending. Vital signs are stable. General: No acute distress. HEENT: Head exam is unremarkable. LUNGS: No audible rhonchi or wheezes. HEART: Rate and Rhythm are regular. ABDOMEN: Nontender. EXTREMITITES: No edema. Fingers amputation noted. Past Medical History Past Medical History: Coronary Artery Disease (CAD), Cancer, Heart Failure, CVA/TIA, Diabetes Mellitus, Eye Disorder, Hypertension, Myocardial Infarction ([place]), Renal Disease, Sleep Apnea/CPAP/BIPAP, Thyroid Disorder Additional Past Medical History / Comment(s): unhealing sore left index finger, neuropathy bilateral lower extremity/feet, bilateral eye diabetic retinopath y/poor vision/multiple injections, ESRD with hemodialysis T//SAT from 6:15 to 11:00, anemia, "mini strokes" x2, AVANI with CPap use, occasional low back pain/disc disease, gout, hypothyroid Last Myocardial Infarction Date:: 04/19/23 History of Any Multi-Drug Resistant Organisms: MRSA Date of last positivie culture/infection: 12/10/21 MDRO Source:: Finger-Right 5th Past Surgical History: Adenoidectomy, Bariatric Surgery, Cholecystectomy, Heart Catheterization, Heart Catheterization With Stent, Orthopedic Surgery, Tonsillectomy Additional Past Surgical History / Comment(s): 10/22/20 PCI with stents x2, lap banding, FX of right ankle repair pins / plate, fistual lt arm jul 2018, lt shoulder sx (d/t separation), colonoscopies, bilateral cataract removals/lens implants. LIF surgery 08/11/21 R LEG stacey placed January 2023 04/19/23 3 stents Past Anesthesia/Blood Transfusion Reactions: Motion Sickness Additional Past Anesthesia/Blood Transfusion Reaction / Comment(s): CLAUSTERPHOBIA Date of Last Stent Placement:: 04/19/23 Past Psychological History: Anxiety Additional Psychological History / Comment(s): Pt resides with his spouse. He no longer drives d/t vision loss. His spouse drives and organizes his medications for him. He has a walker and uses a wheelchair if going distances (dialysis days). Smoking Status: Former smoker Past Alcohol Use History: None Reported Additional Past Alcohol Use History / Comment(s): Patient was a smoker of 2-3 packs per day for 35 years and quit in 2006. Past Drug Use History: None Reported - Past Family History Mother History Unknown: Yes Family Medical History: Coronary Artery Disease (CAD), Myocardial Infarction ([place]) Additional Family Medical History / Comment(s): Mother at age 58 from multiple sclerosis Father Family Medical History: CVA/TIA, Myocardial Infarction ([place]) Additional Family Medical History / Comment(s): Father had history of [place] and CVA followed by a second [place] and CVA and at age 65. Brother(s) Additional Family Medical History / Comment(s): . Medications and Allergies Home Medications Medication Instructions Recorded Confirmed Type Levothyroxine Sodium 100 mcg PO DAILY 07/06/17 07/16/23 History Torsemide [Demadex] 40 mg PO DAILY 09/10/19 07/16/23 History Bryanna-Olimpia 1 tab PO DAILY 10/20/20 07/16/23 History HYDROcodone/APAP 10-325MG [[place] 1 tab PO Q6H 11/24/20 07/16/23 History 10-325] Insulin Regular, Human [Novolin R 10 unit SQ ACHS 11/24/20 07/16/23 History Flexpen] FLUoxetine HCL [PROzac] 40 mg PO DAILY 30 Days #30 cap 10/16/22 07/16/23 Rx Apixaban [Eliquis] 2.5 mg PO BID 02/16/23 07/16/23 History Insulin Detemir (Levemir) [Levemir] 20 unit SQ HS 30 Days #5 each 02/21/23 07/16/23 Rx Midodrine [ProAmatine] 10 mg PO AC-TID PRN #21 tab 04/22/23 07/16/23 Rx carvediloL [Coreg] 6.25 mg PO TID #60 tab 04/25/23 07/16/23 Rx Atorvastatin [Lipitor] 40 mg PO HS 07/16/23 07/16/23 History Calcium Acetate [Phoslo] 667 mg PO AC-TID 07/16/23 07/16/23 History Calcium Acetate [Phoslo] 667 mg PO DAILY PRN 07/16/23 07/16/23 History Clopidogrel [Plavix] 75 mg PO DAILY 07/16/23 07/16/23 History Insulin Regular, Human [Novolin R See Protocol SQ ACHS 07/16/23 07/16/23 History Flexpen] LORazepam [Ativan] 0.5 mg PO TID PRN 07/16/23 07/16/23 History Allergies Allergy/AdvReac Type Severity Reaction Status Date / Time No Known Allergies Allergy Verified 07/16/23 17:16 Physical Exam Vitals: Vital Signs Temp Pulse Pulse Resp BP BP Pulse Ox 07/17/23 08:00 107 H 16 129/74 100 07/17/23 04:00 97.8 F 102 H 18 161/93 100 07/17/23 01:22 EST 100 18 07/17/23 00:00 97.6 F 100 18 167/91 100 07/16/23 20:00 97.7 F 91 16 181/85 100 07/16/23 18:46 16 134/60 100 07/16/23 17:29 82 14 149/75 100 07/16/23 16:13 80 16 152/87 100 07/16/23 14:44 111 H 98 07/16/23 14:11 97.8 F 111 H 20 129/65 99 Intake and Output 07/16/23 07/17/23 07/17/23 23:59 06:59 14:59 Intake Total 118 Output Total Balance 118 Intake: Oral 118 Output: Urine Other: Voiding Method Toilet Weight Results - Lab Results Most recent lab results Calcium 8.5 mg/dL (8.4-10.2) 07/17/23 07:30 Magnesium 1.8 mg/dL (1.6-2.3) 07/16/23 14:33 07/16/23 14:33 07/17/23 07:30 Assessment and Plan Plan: Assessment: 1. End-stage renal disease maintained on hemodialysis on Tuesday schedule via left upper extremity AV fistula. 2. Volume overload. 3. Chest pain with history of severe ischemic cardiomyopathy being followed by cardiology. 4. Diabetes mellitus. 5. Chronic kidney disease mineral bone disease maintained on PhosLo. Plan: Extra hemodialysis treatment tomorrow mostly for ultrafiltration. Low-salt diet and 1500 mL fluid restriction. Follow-up echocardiogram. Thank you for the consultation. I will continue to follow the patient with you during his hospital stay.
[2023-07-17 12:02] LABS: Glucose,Whole Blood 195 mg/dL (70-110)
[2023-07-17 16:43] LABS: Glucose,Whole Blood 268 mg/dL (70-110)
[2023-07-17 20:14] LABS: Glucose,Whole Blood 272 mg/dL (70-110)
[2023-07-17] MEDS: MELATONIN 3 MG TABLET PO SCH (20:33)
[2023-07-17] MEDS: ATORVASTATIN 40 MG TAB PO SCH (20:33)
[2023-07-17] MEDS: INSULIN DETEMIR (LEVEMIR) 100 UNIT/ML SYR SQ SCH (20:34)
[2023-07-18] MEDS: HYDROcodone/APAP 10-325MG 1 EACH TAB PO SCH ×2 (02:24→11:00)
[2023-07-18 06:12] LABS: Glucose,Whole Blood 219 mg/dL (70-110)
[2023-07-18] MEDS: INSULIN ASPART (NovoLOG) 100 UNIT/ML VIAL SQ SCH ×2 (06:41→12:44)
[2023-07-18] MEDS: CALCIUM ACETATE 667 MG TAB PO SCH ×2 (06:42→12:44)
[2023-07-18] MEDS: LEVOTHYROXINE 100 MCG TAB PO SCH (06:42)
[2023-07-18 08:58] LABS: HGB 11.2 gm/dL (13.0-17.5); MCH 32.3 pg (25.0-35.0); MCHC 33.1 g/dL (31.0-37.0); MCV 97.7 fL (80.0-100.0); Mean Platelet Volume 7.6; Platelet Count 143 k/uL (150-450); RBC 3.48 m/uL (4.30-5.90); RDW 14.7 % (11.5-15.5); WBC 7.3 k/uL (3.8-10.6)
[2023-07-18 09:09] LABS: African American GFR (CKD) 12 (>60 ml/min/1.73 sqM); Anion Gap 14 mmol/L; Blood Urea Nitrogen 48 mg/dL (9-20); Carbon Dioxide 29 mmol/L (22-30); Chloride 91 mmol/L (98-107); Glucose 170 mg/dL (74-99); Magnesium 1.9 mg/dL (1.6-2.3); Non-African American GFR(CKD) 10 (>60 ml/min/1.73 sqM); Potassium 4.4 mmol/L (3.5-5.1); Sodium 134 mmol/L (137-145)
[2023-07-18 11:48] LABS: Glucose,Whole Blood 182 mg/dL (70-110)
--- NOTE | 2023-07-18 12:33 | P.PN ---
Subjective Patient is seen on hemodialysis. Receiving extra treatment for chest x-ray showing pulmonary vascular congestion. No complaints of shortness of breath. Tolerating treatment well. Scheduled for echocardiogram today. No complaints of chest pain. Objective - Vital Signs Vital signs: Vital Signs Temp 97.8 F 07/18/23 08:00 Pulse 99 07/18/23 08:00 Resp 18 07/18/23 08:00 BP 162/90 07/18/23 08:00 Pulse Ox 99 07/18/23 08:00 FiO2 Intake & Output 07/17/23 07/18/23 07/18/23 18:59 06:59 18:59 Intake Total 556 238 Balance 556 238 Weight 122.9 kg Intake: Oral 556 238 Other: Voiding Method Toilet Toilet Toilet # Voids 0 - Exam Patient is awake, alert oriented 3 No acute distress Examination of the heart S1 and S2 Examination of the lungs shows bilateral breath sounds are heard Abdomen is soft morbidly obese, nontender Examination of lower extremity shows no evidence of edema Multiple finger amputations noted in both hands - Labs CBC & Chem 7: 07/18/23 07:54 07/18/23 07:54 Labs: Abnormal Lab Results - Last 24 Hours (Table) 07/17/23 07/17/23 07/17/23 Range/Units 07:30 11:10 14:24 RBC (4.30-5.90) m/uL Hgb (13.0-17.5) gm/dL Hct (39.0-53.0) % Plt Count (150-450) k/uL Sodium (137-145) mmol/L Chloride (98-107) mmol/L BUN (9-20) mg/dL Creatinine (0.66-1.25) mg/dL Glucose (74-99) mg/dL POC Glucose (mg/dL) (70-110) mg/dL Hemoglobin A1c 6.9 H (<=6.0) % Troponin I 0.041 H* 0.040 H* (0.000-0.034) ng/mL 07/17/23 07/17/23 07/18/23 Range/Units 16:41 20:13 06:11 RBC (4.30-5.90) m/uL Hgb (13.0-17.5) gm/dL Hct (39.0-53.0) % Plt Count (150-450) k/uL Sodium (137-145) mmol/L Chloride (98-107) mmol/L BUN (9-20) mg/dL Creatinine (0.66-1.25) mg/dL Glucose (74-99) mg/dL POC Glucose (mg/dL) 268 H 272 H 219 H (70-110) mg/dL Hemoglobin A1c (<=6.0) % Troponin I (0.000-0.034) ng/mL 07/18/23 07/18/23 07/18/23 Range/Units 07:54 07:54 11:46 RBC 3.48 L (4.30-5.90) m/uL Hgb 11.2 L (13.0-17.5) gm/dL Hct 34.0 L (39.0-53.0) % Plt Count 143 L (150-450) k/uL Sodium 134 L (137-145) mmol/L Chloride 91 L (98-107) mmol/L BUN 48 H (9-20) mg/dL Creatinine 5.53 H (0.66-1.25) mg/dL Glucose 170 H (74-99) mg/dL POC Glucose (mg/dL) 182 H (70-110) mg/dL Hemoglobin A1c (<=6.0) % Troponin I (0.000-0.034) ng/mL Assessment and Plan Assessment: 1. End-stage renal disease maintained on hemodialysis on Tuesday schedule via left upper extremity AV fistula. 2. Peripheral vascular disease with multiple finger amputations on both 3. Chest pain with history of severe ischemic cardiomyopathy being followed by cardiology. 4. Diabetes mellitus. 5. Chronic kidney disease mineral bone disease maintained on PhosLo. Plan: Okay to discharge post hemodialysis if cleared by cardiology. Follow-up as outpatient for hemodialysis tomorrow.
[2023-07-18] MEDS: FLUoxetine HCL 20 MG CAP PO SCH (12:44)
[2023-07-18] MEDS: carvediloL 6.25 MG TAB PO SCH (12:45)
[2023-07-18] MEDS: APIXABAN 2.5 MG TABLET PO SCH (12:45)
[2023-07-18] MEDS: CLOPIDOGREL 75 MG TAB PO SCH (12:45)
[2023-07-18] MEDS: FUROSEMIDE 10 MG/ML 4 ML VIAL IV SCH (12:45)
[2023-07-18] MEDS: FOLIC ACID-VIT B COMPLEX-VIT C 1 CAP PO SCH (12:46)
--- NOTE | 2023-07-18 13:54 | P.PN ---
Subjective Progress Note Date: 07/18/23 History of Present Illness: The patient is a 62-year-old male with a known history of CAD, severe cardiomy opathy, status post stenting by Dr. Jimenez most recently in April 2023 of the LAD, history of paroxysmal atrial fibrillation, end-stage renal failure we yesterday had brief episodes of chest discomfort, lasting for a few seconds on and off that started prior to his dialysis and occurred after she he came into the emergency room and subsequently admitted. He is pain-free at this time. He feels that his symptoms are different from what he experienced in April at the time of his anterior wall myocardial infarction. He has dyspnea on exertion, stable. He has no dizziness or palpitations. He has a history of paroxysmal atrial fibrillation. He has no clear PND or orthopnea. He stopped smoking in 2006. He had a history of diabetes for over 30 years. In the emergency room he was noted to be in sinus mechanism with elevated NT proBNP and minimally elevated troponin and no acute ST segment changes. Medications: Lipitor 40 mg daily, insulin, midodrine 10 mg 3 times a day, levothyroxine, Demadex 40 mg daily, Coreg 6.25 mg 3 times a day, Plavix 75 mg daily, PhosLo, levothyroxine,Eliquis 2.5 mg twice a day 07/18 Patient is seen today in follow-up. Patient underwent HD today and plan is for discharge home later today. Repeat blood work reveals hemoglobin 11.2. Sodium 134, potassium 4.4, BUN 48 creatinine 5.53. Echocardiogram has been ordered but patient is known to have EF of 25%. Blood pressure is 162/90, heart rate 99. Physical Examination: 62-year-old male, alert and oriented no apparent distress Head: Normocephalic. Eyes: Sclerae nonicteric. Neck: Good carotid upstroke, no bruit, no jugular venous distention. Lungs: Clear to auscultation. Heart: Regular rate and rhythm, S1-S2, no S3, no rub. Systolic ejection murmur. Abdomen: Soft nontender, positive bowel sounds no organomegaly. Obese Extremities: Trace edema, amputation of the fingers. Impression: 1. Chest discomfort, probably noncardiac 2. History of severe ischemic cardiomyopathy, patient had elevated NT proBNP probably worsened by the renal failure. On examination he has no significant fluid overload 3. Status post LAD stenting in [place] 4. Paroxysmal atrial fibrillation, maintaining sinus mechanism 5. History of diabetes 6. History of hyperlipidemia 7. Status post digit amputation Plan: 1. Continue present therapy 2. Obtain an echocardiogram with Doppler, patient does not have to wait for report 3. Nephrology consultation 4. Follow symptoms and depending on his progress further recommendations will be made. At this time I see no evidence to suggest ACS and no indication for coronary angiography Patient is cleared for discharge from cardiology. Nurse practitioner note has been reviewed, I agree with the documented findings and plan of care. Patient was seen and examined. Objective - Vital Signs Vital signs: Vital Signs Temp 97.8 F 07/18/23 08:00 Pulse 99 07/18/23 08:00 Resp 18 07/18/23 08:00 BP 162/90 07/18/23 08:00 Pulse Ox 99 07/18/23 08:00 FiO2 Intake & Output 07/17/23 07/18/23 07/18/23 18:59 06:59 18:59 Intake Total 556 238 Balance 556 238 Weight 122.9 kg Intake: Oral 556 238 Other: Voiding Method Toilet Toilet Toilet # Voids 0 - Labs CBC & Chem 7: 07/18/23 07:54 07/18/23 07:54 Labs: Abnormal Lab Results - Last 24 Hours (Table) 07/17/23 07/17/23 07/17/23 Range/Units 07:30 11:10 12:01 RBC (4.30-5.90) m/uL Hgb (13.0-17.5) gm/dL Hct (39.0-53.0) % Plt Count (150-450) k/uL Sodium (137-145) mmol/L Chloride (98-107) mmol/L BUN (9-20) mg/dL Creatinine (0.66-1.25) mg/dL Glucose (74-99) mg/dL POC Glucose (mg/dL) 195 H (70-110) mg/dL Hemoglobin A1c 6.9 H (<=6.0) % Troponin I 0.041 H* (0.000-0.034) ng/mL 07/17/23 07/17/23 07/17/23 Range/Units 14:24 16:41 20:13 RBC (4.30-5.90) m/uL Hgb (13.0-17.5) gm/dL Hct (39.0-53.0) % Plt Count (150-450) k/uL Sodium (137-145) mmol/L Chloride (98-107) mmol/L BUN (9-20) mg/dL Creatinine (0.66-1.25) mg/dL Glucose (74-99) mg/dL POC Glucose (mg/dL) 268 H 272 H (70-110) mg/dL Hemoglobin A1c (<=6.0) % Troponin I 0.040 H* (0.000-0.034) ng/mL 07/18/23 07/18/23 07/18/23 Range/Units 06:11 07:54 07:54 RBC 3.48 L (4.30-5.90) m/uL Hgb 11.2 L (13.0-17.5) gm/dL Hct 34.0 L (39.0-53.0) % Plt Count 143 L (150-450) k/uL Sodium 134 L (137-145) mmol/L Chloride 91 L (98-107) mmol/L BUN 48 H (9-20) mg/dL Creatinine 5.53 H (0.66-1.25) mg/dL Glucose 170 H (74-99) mg/dL POC Glucose (mg/dL) 219 H (70-110) mg/dL Hemoglobin A1c (<=6.0) % Troponin I (0.000-0.034) ng/mL
[2023-07-18 15:17] VITALS: BP 142/81; PULSE 78; RESP 19; TEMP 98
--- NOTE | 2023-07-19 07:09 | CA ---
Transthoracic Echo Report Name: Lan Tillman Age: 62 Gender: M : 1960 Exam Date: 07/18/2023 13:14 Exam Location: [place] [facility] Ht (in): 71 Wt (lb): 270 Ordering Physician: Ingrid Schneider Attending/Referring Phys: Wyatt ZUÑIGA Abrasive Worker Carmelita Cardona [facility] Procedure CPT: Indications: chf Cardiac Hx: Technical Quality: Technically difficult study Contrast 1: Definity Total Dose (mL): 6 Contrast 2: Total Dose (mL): MEASUREMENTS (Male / Female) Normal Values 2D ECHO LV Diastolic Diameter PLAX 6.4 cm 4.2 - 5.9 / 3.9 - 5.3 cm LV Systolic Diameter PLAX 5.2 cm IVS Diastolic Thickness 1.1 cm 0.6 - 1.0 / 0.6 - 0.9 cm LVPW Diastolic Thickness 1.2 cm 0.6 - 1.0 / 0.6 - 0.9 cm LV Relative Wall Thickness 0.4 LVOT Diameter 2.0 cm DOPPLER AV Peak Velocity 228.9 cm/s AV Peak Gradient 21.0 mmHg AV Mean Velocity 152.6 cm/s AV Mean Gradient 10.9 mmHg AV Velocity Time Integral 47.2 cm LVOT Peak Velocity 102.0 cm/s LVOT Peak Gradient 4.2 mmHg LVOT Velocity Time Integral 25.0 cm LVOT Stroke Volume 80.0 cm??? LVOT Stroke Volume Index 33.4 ml/m??? LVOT Cardiac Index 2630.0 cm???/min???m??? AV Area Cont Eq vti 1.7 cm??? AV Area Cont Eq pk 1.4 cm??? MR Peak Velocity 477.2 cm/s MR Peak Gradient 91.1 mmHg Mitral E Point Velocity 139.6 cm/s Mitral A Point Velocity 95.3 cm/s Mitral E to A Ratio 1.5 MV Deceleration Time 208.2 ms LV E' Lateral Velocity 3.5 cm/s Mitral E to LV E' Lateral Ratio 40.2 LV E' Septal Velocity 4.5 cm/s Mitral E to LV E' Septal Ratio 30.8 FINDINGS Left Ventricle Mildly increased left ventricular wall thickness. Moderate left ventricular dilatation. Mildly increased left ventricular diastolic diameter. Anteroapical and anteroseptal akinesis. Severely reduced left ventricular systolic function. Left ventricular ejection fraction is estimated at 25-30%. Right Ventricle Right Atrium Left Atrium Mitral Valve Mitral valve thickened. Moderate mitral annular calcification. Moderate mitral regurgitation. Aortic Valve Aortic valve sclerosis. Mild aortic stenosis with a peak gradient of 20.96 mmHg and a mean gradient of 10.92 mmHg. Tricuspid Valve Pulmonic Valve Pericardium No pericardial effusion. Aorta CONCLUSIONS Limited for CHF. Definity ECHO contrast used for improved visualization of the endocardial borders (inadequate visualization of two or more contiguous segments). Severely impaired left ventricular systolic function with segmental wall motion abnormality Moderate mitral regurgitation Mild aortic stenosis Previewed by: Dr. Jonny Ngo MD (Electronically Signed) Final Date: 19 July 2023 07:08
--- NOTE | 2023-07-19 23:36 | P.DS ---
Providers Date of admission: 07/16/23 16:44 Attending physician: Gwen Mcknight Consults: 07/16/23 16:46 Consult Physician Urgent Consulting Provider: Vikas Jimenez Consult Reason/Comments: CHF Do you want consulting provider notified?: Yes, Notify in am 07/16/23 18:54 Consult Physician Urgent Consulting Provider: Chacho Dove Consult Reason/Comments: CKD, dialysis Do you want consulting provider notified?: Yes Primary care physician: Hayes Oshea Hospital Course: Final Diagnosis -Chest pain, ACS ruled out likely due to volume overload -Congestive heart failure chronic systolic dysfunction EF of around 25%, end- stage renal disease patient has mild volume overload -End-stage renal disease hemodialysis dependent probably secondary to diabetic nephropathy. -Coronary artery disease with recent cardiac catheterization in Apr 2023 with stent to the LAD -Severe cardiomyopathy with EF 25% -CVA or TIA in the past -Type 2 diabetes mellitus -Hypertension -Sleep apnea -Hypothyroidism -Hyperlipidemia -Atrial fibrillation present to sinus rhythm continues on anticoagulation Full Code Discharge Disposition Patient is stable for discharge home. Patient has underwent an extra session of dialysis /ultrafiltration. Recommending to continue on usual hemodialysis schedule //Tuesday. Nephrology recommending to continue low-salt diet and 1500 mL fluid restriction. Hospital Course This is a pleasant 62-year-old pleasant male with the end-stage renal disease, hemodialysis, coronary artery disease, paroxysmal atrial fibrillation, congestive heart failure with EF of around 25% came in with the complaints of chest pressure like sensation mild nonradiating with associated diaphoresis with mildly elevated troponin which can be explained by a renal failure, had a cardiac catheterization and stenting in month of April. Dialysis sessions are Tuesday and Tuesday. Patient had dialysis yesterday was also having some shortness of breath today and some pressure in the chest chest x-ray did show pulmonary edema with bilateral pleural effusions patient doesn't urinate much is on Demadex at home. Admitted to the hospital under medicine, cardiology and nephrology were consulted. Patient was dialyzed per usual with nephrology recommending extra session with ultrafiltration. Patients symptoms have improved, no shortness off breath or chest pain reported. He is asking for DC home. Had limited echocardiogram follow up completed missed his outpatient appt for an echocardiogram. Echo reveals EF 25-30% moderate MR and mild aortic stenosis. He is on room air. Lungs are clear, Alert x 3, no focal deficits. He will be discharged home with close follow up recommended. Please see medication reconciliation for a list of current medications. Thank you for allowing us to participate in the care of this patient. The impression and plan of care has been dictated by Ingrid Schneider, Nurse Practitioner as directed. Dr. Mil MD I have performed a history and physical examination and medical decision making of this patient, discussed the same with the dictator, and agree with the dictators assessment and plan as written, documented as a scribe. Based on total visit time, I have performed more than 50% of this visit. Patient Condition at Discharge: Fair Plan - Discharge Summary Discharge Rx Participant: No New Discharge Prescriptions: Continue Levothyroxine Sodium 100 mcg PO DAILY Torsemide [Demadex] 40 mg PO DAILY Bryanna-Olimpia 1 tab PO DAILY Insulin Regular, Human [Novolin R Flexpen] 10 unit SQ ACHS HYDROcodone/APAP 10-325MG [Bethany 10-325] 1 tab PO Q6H FLUoxetine HCL [PROzac] 40 mg PO DAILY 30 Days #30 cap carvediloL [Coreg] 6.25 mg PO TID #60 tab Calcium Acetate [PhosLo] 667 mg PO DAILY PRN PRN Reason: SNACKS LORazepam [Ativan] 0.5 mg PO TID PRN PRN Reason: Anxiety Apixaban [Eliquis] 2.5 mg PO BID Insulin Detemir (Levemir) [Levemir] 20 unit SQ HS 30 Days #5 each Midodrine [ProAmatine] 10 mg PO AC-TID PRN #21 tab PRN Reason: Blood Pressure - Low Insulin Regular, Human [Novolin R Flexpen] See Protocol SQ ACHS Atorvastatin [Lipitor] 40 mg PO HS Clopidogrel [Plavix] 75 mg PO DAILY Calcium Acetate [PhosLo] 667 mg PO AC-TID Discharge Medication List Levothyroxine Sodium 100 mcg PO DAILY 07/06/17 [History] Torsemide [Demadex] 40 mg PO DAILY 09/10/19 [History] Bryanna-Olimpia 1 tab PO DAILY 10/20/20 [History] HYDROcodone/APAP 10-325MG [Bethany 10-325] 1 tab PO Q6H 11/24/20 [History] Insulin Regular, Human [Novolin R Flexpen] 10 unit SQ ACHS 11/24/20 [History] FLUoxetine HCL [PROzac] 40 mg PO DAILY 30 Days #30 cap 10/16/22 [Rx] Apixaban [Eliquis] 2.5 mg PO BID 02/16/23 [History] Insulin Detemir (Levemir) [Levemir] 20 unit SQ HS 30 Days #5 each 02/21/23 [Rx] Midodrine [ProAmatine] 10 mg PO AC-TID PRN #21 tab 04/22/23 [Rx] carvediloL [Coreg] 6.25 mg PO TID #60 tab 04/25/23 [Rx] Atorvastatin [Lipitor] 40 mg PO HS 07/16/23 [History] Calcium Acetate [PhosLo] 667 mg PO AC-TID 07/16/23 [History] Calcium Acetate [PhosLo] 667 mg PO DAILY PRN 07/16/23 [History] Clopidogrel [Plavix] 75 mg PO DAILY 07/16/23 [History] Insulin Regular, Human [Novolin R Flexpen] See Protocol SQ ACHS 07/16/23 [History] LORazepam [Ativan] 0.5 mg PO TID PRN 07/16/23 [History] Follow up Appointment(s)/Referral(s): Vikas Jimenez DO [STAFF PHYSICIAN] - 07/25/23 4:00 pm Hayes Oshea [Primary Care Provider] - 1-2 days Ambulatory/Diagnostic Orders: Basic Metabolic Panel [LAB.AMB] Time Frame: 3 Days, Location: None Selected Patient Instructions/Handouts: Heart Failure (DC), Chronic Kidney Disease (DC) Activity/Diet/Wound Care/Special Instructions: Continue on same dialysis schedule Tuesday Discharge Disposition: HOME WITH HOME HEALTH SERVICES
== END 2023-07-18 14:49 | disposition home health service (06) | DRG 313 ==
LOC: EC 14:09 → 3SCARD 16:44
PROVIDERS: ADMIT Hospitalist; ATTEND Hospitalist
PROC: 5A1D70Z Performance of Urinary Filtration, Intermittent, Less than 6 Hours Per Day (ICD-10-PCS; principal; 2023-07-18)
DX: R07.89 Other chest pain (principal); N18.6 End stage renal disease; I13.2 Hypertensive heart and chronic kidney disease with heart failure and with stage 5 chronic kidney disease, or end stage renal disease; I50.22 Chronic systolic (congestive) heart failure; I25.10 Atherosclerotic heart disease of native coronary artery without angina pectoris; E03.9 Hypothyroidism, unspecified; E11.51 Type 2 diabetes mellitus with diabetic peripheral angiopathy without gangrene; E11.42 Type 2 diabetes mellitus with diabetic polyneuropathy; Z79.890 Hormone replacement therapy; I48.0 Paroxysmal atrial fibrillation; G47.30 Sleep apnea, unspecified; M89.8X9 Other specified disorders of bone, unspecified site; E11.319 Type 2 diabetes mellitus with unspecified diabetic retinopathy without macular edema; G47.33 Obstructive sleep apnea (adult) (pediatric); E11.22 Type 2 diabetes mellitus with diabetic chronic kidney disease; E78.5 Hyperlipidemia, unspecified; F41.9 Anxiety disorder, unspecified; H54.7 Unspecified visual loss; I25.2 Old myocardial infarction; I25.5 Ischemic cardiomyopathy; K21.9 Gastro-esophageal reflux disease without esophagitis; Z99.2 Dependence on renal dialysis; Z96.1 Presence of intraocular lens; Z98.42 Cataract extraction status, left eye; Z98.41 Cataract extraction status, right eye; Z95.5 Presence of coronary angioplasty implant and graft; Z86.73 Personal history of transient ischemic attack (TIA), and cerebral infarction without residual deficits; Z82.49 Family history of ischemic heart disease and other diseases of the circulatory system; Z79.899 Other long term (current) drug therapy; Z79.4 Long term (current) use of insulin; Z79.01 Long term (current) use of anticoagulants; Z79.02 Long term (current) use of antithrombotics/antiplatelets; Z86.14 Personal history of Methicillin resistant Staphylococcus aureus infection; Z90.49 Acquired absence of other specified parts of digestive tract
CPT/HCPCS: 36415; 71046; 80048; 80053; 83036; 83735; 83880; 84484; 85025; 85027; 85610; 85730; 90935; 93005; 93308; 99285

== ENCOUNTER → 2023-08-10 | Outpatient (CLI) | payer MEDICARE, BC ==
--- NOTE | 2023-08-10 08:28 | US ---
EXAMINATION TYPE: US kidneys/renal and bladder DATE OF EXAM: 08/10/2023 COMPARISON: NONE CLINICAL INDICATION: Male, 63 years old with history of R10.9 UNSPECIFIED ABDOMINAL PAIN; Rt lower fl ank pain, pt. on dialysis x 5 years EXAM MEASUREMENTS: Right Kidney: 12.5x4.3x6.6 cm Left Kidney: 10.2x8.0x6.3 cm Right Kidney: mild hydronephrosis and perinephric fluid noted Left Kidney: mild hydronephrosis and perinephric fluid noted Bladder: not fully distended, patient says urine output is very low "1/2 cup a day" Bilateral Jets seen: could not obtain due to flash artifact from adjacent peristalsing bowel ( extr a images obtained of dilated bowel loops in this region) No nephrolithiasis is seen. No masses are identified. The urinary bladder is anechoic. exam limited by body habitus and bowel IMPRESSION: Mild dilation of the collecting systems which could be patient's normal anatomy. Consider CT imaging if there remains clinical concern.
== END | disposition home or self-care (01) ==
LOC: RADUSWWP 07:16
PROVIDERS: ATTEND Internal Medicine Nephrology
DX: R10.9 Unspecified abdominal pain (principal); Z99.2 Dependence on renal dialysis
CPT/HCPCS: 76770

== ENCOUNTER → 2023-08-23 | Outpatient (CLI) | payer MEDICARE, BC ==
--- NOTE | 2023-08-23 12:49 | XR ---
EXAMINATION TYPE: XR ankle complete RT DATE OF EXAM: 08/23/2023 COMPARISON: 11/01/2022 HISTORY: Fall TECHNIQUE: 3 view right ankle FINDINGS: Has been open reduction internal fixation of the distal fibular fracture. Callus formation is at a old distal fibular fracture proximal to the plate and screws. Medullary stacey extends through t he calcaneus and talus into the distal tibia. Old medial malleolar fracture appears to be present wit h nonunion. Correlate with location of patient's pain. Mild diffuse soft tissue swelling is at the an kle. The ankle mortise as visualized appears intact. IMPRESSION: 1. Acute displaced fracture is not identified. The medial malleolar fracture is felt to be old nonun ion. Correlate with location of the patient's pain. Refracture through this area could be considered.
--- NOTE | 2023-08-23 12:51 | XR ---
EXAMINATION TYPE: XR foot complete RT DATE OF EXAM: 08/23/2023 COMPARISON: 08/07/2014 HISTORY: Fall, pain TECHNIQUE: 3 view right foot FINDINGS: No acute fracture or dislocation evident. Soft tissues appear normal. Vascular calcificatio n is evident. Some mild hallux valgus deformity is present. Joint spaces are preserved. Plantar calca delio heel spur is present. IMPRESSION: 1. No acute osseous abnormality the right foot is radiographically apparent. Follow up exams can be performed 7-10 days from acute trauma for continued pain.
== END | disposition home or self-care (01) ==
LOC: RADXRMAIN 12:24
PROVIDERS: ATTEND Nurse Practitioner Family
DX: S82.54XK Nondisplaced fracture of medial malleolus of right tibia, subsequent encounter for closed fracture with nonunion (principal); M79.671 Pain in right foot

== ENCOUNTER → 2023-08-31 | Outpatient (CLI) | payer MEDICARE, BC ==
--- NOTE | 2023-08-31 13:13 | CT ---
EXAMINATION TYPE: CT abdomen pelvis wo con DATE OF EXAM: 08/31/2023 COMPARISON: 01/29/2013 HISTORY: 63-year-old male R10.96, C61, Right flank pain and history of prostate cancer. CT DLP: 1496.6 mGycm. Automated exposure control for dose reduction was used. TECHNIQUE: Contiguous axial scanning of the abdomen and pelvis without IV contrast. Coronal and sagit yareli reconstructions performed. FINDINGS: The heart is upper limits of normal in size without pericardial effusion. Extensive coronary artery c alcifications are present. There is a small to moderate right and small left pleural effusions with some mild patchy adjacent at electasis. Calcified granulomas at the lung bases. Mild generalized anasarca change. Lap band device is present. Liver mildly enlarged at 19.8 cm. Otherwise, noncontrast appearance of the liver, kidneys, and pancre as show no gross abnormality. Gallbladder is surgically absent. Splenomegaly at 15.5 cm measured on coronal series. 2.0 cm nodule right adrenal gland is indeterminate given attenuation of 20 Hounsfield units. Smaller nodularity measuring 1.4 cm is present in 2013 suggesting an underlying adrenal adenoma. Similar diff use thickening of the left adrenal gland without discrete nodularity. Moderate atherosclerotic calcifications infrarenal abdominal aorta without aneurysm. No dilated small bowel, free fluid, or free air. No mesenteric or retroperitoneal lymphadenopathy. Normal appendix. There is mild to moderate stool burden. No pericolonic inflammatory change. However, there is some moderate circumferential wall thickening at the distal rectum which should be correlat ed with patient's symptoms. No abnormal fluid collection in the pelvis or pelvic lymphadenopathy. Bladder is collapsed. Circumfer ential bladder wall thickening may be due to the nondistention. Bones: Osteopenia. There is dish throughout the visualized lower thoracic spine. Hypertrophic facet a rthropathy mid to lower lumbar spine. IMPRESSION: 1. No nephrolithiasis or hydronephrosis. 2. Moderate circumferential wall thickening distal rectum. Correlate for possible nonspecific distal colitis. Direct visualization can be considered if routine screening colonoscopy has not been perfor med. 3. Correlate for fluid overload state given small to moderate right and small left pleural effusions . 4. Hepatosplenomegaly (liver 19.8 cm and spleen 15.5 cm). 5. A 2.0 cm right adrenal nodule measured 1.4 cm in 2013. Findings favored to represent a benign adr enal adenoma given indolent behavior. 6. Circumferential bladder wall thickening may be chronic for the patient, possibly related to postt reatment change. Prostate gland mildly enlarged at 4.5 cm wide. Correlate with urinalysis.
== END | disposition home or self-care (01) ==
LOC: RADCTMAIN 08:54
PROVIDERS: ATTEND Internal Medicine Nephrology
DX: C61 Malignant neoplasm of prostate (principal); R16.2 Hepatomegaly with splenomegaly, not elsewhere classified; K62.89 Other specified diseases of anus and rectum; J90 Pleural effusion, not elsewhere classified; E27.8 Other specified disorders of adrenal gland; N32.89 Other specified disorders of bladder
CPT/HCPCS: 74176

== ENCOUNTER 2023-11-23 10:15 | Inpatient (IN) | payer MEDICARE, BC ==
[2023-11-23 11:39] LABS: INR 1.2 (<1.2); Partial Thromboplastin Time 29.1 sec (22.0-30.0); Prothrombin Time 12.4 sec (10.0-12.5)
[2023-11-23 11:40] LABS: ALT 26 U/L (4-49); AST 27 U/L (17-59); African American GFR (CKD) 13 (>60 ml/min/1.73 sqM); Albumin 3.8 g/dL (3.5-5.0); Alkaline Phosphatase 88 U/L (38-126); Anion Gap 11 mmol/L; Blood Urea Nitrogen 45 mg/dL (9-20); Calcium 8.7 mg/dL (8.4-10.2); Carbon Dioxide 30 mmol/L (22-30); Chloride 93 mmol/L (98-107); Glucose 105 mg/dL (74-99); Lipase 69 U/L (23-300); Magnesium 1.8 mg/dL (1.6-2.3); Non-African American GFR(CKD) 11 (>60 ml/min/1.73 sqM); Potassium 4.3 mmol/L (3.5-5.1); Sodium 134 mmol/L (137-145); Total Bilirubin 0.8 mg/dL (0.2-1.3)
[2023-11-23 11:41] LABS: Basophils # (A) 0.1 k/uL (0-0.2); Basophils % (A) 1 %; Eosinophils # (A) 0.1 k/uL (0-0.7); Eosinophils % (A) 1 %; HCT 30.5 % (39.0-53.0); HGB 10.4 gm/dL (13.0-17.5); Lymphocytes # (A) 0.7 k/uL (1.0-4.8); Lymphocytes % (A) 11 %; MCH 34.1 pg (25.0-35.0); MCHC 34.2 g/dL (31.0-37.0); MCV 99.7 fL (80.0-100.0); Macrocytosis Slight; Mean Platelet Volume 9.1; Monocytes # (A) 0.3 k/uL (0-1.0); Monocytes % (A) 6 %; Neutrophils # (A) 4.7 k/uL (1.3-7.7); Neutrophils % (A) 79 %; Platelet Count 108 k/uL (150-450); RBC 3.06 m/uL (4.30-5.90); RDW 15.9 % (11.5-15.5)
[2023-11-23 12:05] LABS: NT-Pro-B-Type Natriuretic Pept 72900 pg/mL
--- NOTE | 2023-11-23 12:10 | XR ---
EXAMINATION TYPE: XR chest 2V DATE OF EXAM: 11/23/2023 COMPARISON: 07/16/2023 HISTORY: 63-year-old male with chest pain and shortness of breath TECHNIQUE: AP and lateral views FINDINGS: Heart is mild to moderately enlarged. On the lateral view, there is some patchy posterior basilar opa city. Remainder of the upper and mid lungs appear clear. IMPRESSION: Mild to moderate cardiomegaly. Lateral view shows patchy posterior basilar atelectasis versus develop ing infiltrate. Clinically correlate.
--- NOTE | 2023-11-23 12:18 | ED ---
Chest Pain HPI - General Chief Complaint: Chest Pain Stated Complaint: chest pain Time Seen by Provider: 11/23/23 10:20 Source: patient, EMS Mode of arrival: EMS - History of Present Illness Initial Comments: 63-year-old male with past medical history of coronary artery disease, A-fib COPD who presents to the emergency department reporting chest pain and shortness of breath. States that for the past couple of days he has had exertional dyspnea. Today the patient began having chest pain at 9 AM located over the left side of his chest. He does have a prescription for nitro however did not know where his pills were. He has history of 5 cardiac stents. Patient is on Eliquis and Plavix and states he has been taking his medications as directed. He is also dialysis patient. Patient goes Tuesday, and Tuesday and has not missed any of his sessions. He denies any fevers or cough. No nausea or vomiting. Pain has subsided upon presentation to the emergency department. No other alleviating, precipitating or modifying factors - Related Data Home Medications Medication Instructions Recorded Confirmed Levothyroxine Sodium 100 mcg PO DAILY 07/06/17 11/23/23 Torsemide [Demadex] 40 mg PO DAILY 09/10/19 11/23/23 HYDROcodone/APAP 10-325MG [[place] 1 tab PO 5XD PRN 11/24/20 11/23/23 10-325] Insulin Regular, Human [NovoLIN R 8 - 20 unit SQ ACHS PRN 11/24/20 11/23/23 Flexpen] Apixaban [Eliquis] 2.5 mg PO BID 02/16/23 11/23/23 Atorvastatin [Lipitor] 40 mg PO HS 07/16/23 11/23/23 Calcium Acetate [PhosLo] 667 mg PO AC-TID 07/16/23 11/23/23 Calcium Acetate [PhosLo] 667 mg PO DAILY PRN 07/16/23 11/23/23 Insulin Regular, Human [NovoLIN R See Protocol SQ ACHS PRN 07/16/23 11/23/23 Flexpen] Amitriptyline HCl [Elavil] 25 mg PO HS PRN 11/23/23 11/23/23 Folic Acid/Vit B Complex and C 0.8 mg PO DAILY 11/23/23 11/23/23 [Bryanna-Olimpia Tablet] Insulin Detemir [Levemir Flexpen] 25 - 30 units SQ HS 11/23/23 11/23/23 LORazepam 1 mg PO BID PRN 11/23/23 11/23/23 Midodrine HCl [ProAmatine] 10 mg PO AC-TID PRN 11/23/23 11/23/23 Previous Rx's Medication Instructions Recorded FLUoxetine HCL [PROzac] 40 mg PO DAILY 30 Days #30 cap 10/16/22 carvediloL [Coreg] 6.25 mg PO TID #60 tab 04/25/23 Aspirin 81 mg PO DAILY 30 Days #30 tab 11/26/23 Clopidogrel [Plavix] 75 mg PO DAILY 90 Days #90 tab 11/26/23 Allergies Allergy/AdvReac Type Severity Reaction Status Date / Time No Known Allergies Allergy Verified 11/23/23 11:48 Review of Systems ROS Statement: Those systems with pertinent positive or pertinent negative responses have been documented in the HPI. ROS Other: All systems not noted in ROS Statement are negative. Past Medical History Past Medical History: Coronary Artery Disease (CAD), Cancer, Heart Failure, CVA/TIA, Diabetes Mellitus, Eye Disorder, Hypertension, Myocardial Infarction ([place]), Renal Disease, Sleep Apnea/CPAP/BIPAP, Thyroid Disorder Additional Past Medical History / Comment(s): unhealing sore left index finger, neuropathy bilateral lower extremity/feet, bilateral eye diabetic retinopathy/poor vision/multiple injections, ESRD with hemodialysis T/TH/SAT from 6:15 to 11:00, anemia, "mini strokes" x2, AVANI with CPap use, occasional low back pain/disc disease, gout, hypothyroid Last Myocardial Infarction Date:: 04/19/23 History of Any Multi-Drug Resistant Organisms: MRSA Date of last positivie culture/infection: 12/10/21 MDRO Source:: Finger-Right 5th Past Surgical History: Adenoidectomy, Bariatric Surgery, Cholecystectomy, Heart Catheterization, Heart Catheterization With Stent, Orthopedic Surgery, Tonsillec rema Additional Past Surgical History / Comment(s): 10/22/20 PCI with stents x2, lap banding, FX of right ankle repair pins / plate, fistual lt arm jul 2018, lt shoulder sx (d/t separation), colonoscopies, bilateral cataract removals/lens implants. LIF surgery 08/11/21 R LEG stacey placed January 2023 04/19/23 3 stents Past Anesthesia/Blood Transfusion Reactions: Motion Sickness Additional Past Anesthesia/Blood Transfusion Reaction / Comment(s): CLAUSTERPHOBIA Date of Last Stent Placement:: 04/19/23 Past Psychological History: Anxiety Smoking Status: Former smoker Past Alcohol Use History: None Reported Past Drug Use History: None Reported - Past Family History Mother History Unknown: Yes Family Medical History: Coronary Artery Disease (CAD), Myocardial Infarction ([place]) Additional Family Medical History / Comment(s): Mother at age 58 from multiple sclerosis Father Family Medical History: CVA/TIA, Myocardial Infarction ([place]) Additional Family Medical History / Comment(s): Father had history of VA and CVA followed by a second VA and CVA and at age 65. Brother(s) Additional Family Medical History / Comment(s): . General Exam General appearance: alert, in no apparent distress Head exam: Present: atraumatic, normocephalic, normal inspection Eye exam: Present: normal appearance, PERRL, EOMI. Absent: scleral icterus, conjunctival injection, periorbital swelling ENT exam: Present: normal exam, mucous membranes moist Neck exam: Present: normal inspection. Absent: tenderness, meningismus, lymphadenopathy Respiratory exam: Present: normal lung sounds bilaterally. Absent: respiratory distress, wheezes, rales, rhonchi, stridor Cardiovascular Exam: Present: regular rate, normal rhythm, normal heart sounds. Absent: systolic murmur, diastolic murmur, rubs, gallop, clicks GI/Abdominal exam: Present: soft, normal bowel sounds. Absent: distended, tenderness, guarding, rebound, rigid Extremities exam: Present: full ROM, normal capillary refill, other (graft left upper extremity). Absent: tenderness, pedal edema, joint swelling, calf tenderness Back exam: Present: normal inspection Neurological exam: Present: alert, oriented X3, CN II-XII intact Psychiatric exam: Present: normal affect, normal mood Skin exam: Present: warm, dry, intact, normal color. Absent: rash Course Vital Signs 11/23/23 11/23/23 11/23/23 10:17 11:48 14:34 Temperature 98.5 F Pulse Rate 100 95 98 Pulse Rate [ Pulse Oximetery ] Respiratory 18 17 18 Rate Blood Pressure 97/59 98/62 82/59 Blood Pressure [Right Arm] O2 Sat by Pulse 98 100 100 Oximetry 11/23/23 11/23/23 11/23/23 15:53 16:29 17:30 Temperature Pulse Rate 85 83 Pulse Rate [ Pulse Oximetery ] Respiratory 20 18 Rate Blood Pressure 87/67 91/59 83/70 Blood Pressure [Right Arm] O2 Sat by Pulse 99 99 Oximetry 11/23/23 11/23/23 18:04 18:16 Temperature 97.9 F 97.6 F Pulse Rate 80 Pulse Rate [ 102 H Pulse Oximetery ] Respiratory 18 16 Rate Blood Pressure 109/67 Blood Pressure 110/72 [Right Arm] O2 Sat by Pulse 99 100 Oximetry Chest Pain MDM - MDM Was pt. sent in by a medical professional or institution (, PA, SCORE CALLER, urgent care, hospital, or penitentiary...) When possible be specific @ -No Did you speak to anyone other than the patient for history (EMS, parent, family, police, friend...)? What history was obtained from this source @ -Spoke with the patient and his Did you review nursing and triage notes (agree or disagree)? Why? @ -I reviewed and agree with nursing and triage notes Were old charts reviewed (outside hosp., previous admission, EMS record, old EKG, old radiological studies, urgent care reports/EKG's, penitentiary records)? Report findings @ -I reviewed results of patient's last heart cath Differential Diagnosis (chest pain, altered mental status, abdominal pain women, abdominal pain men, vaginal bleeding, weakness, fever, dyspnea, syncope, headache, dizziness, GI bleed, back pain, seizure, CVA, palpatations, mental health, musculoskeletal)? @ -Differential Chest Pain: Stable Angina, Unstable Angina, STEMI, NSTEMI Aortic Dissection, Pneumothorax, Musculoskeletal, Esophageal Spasm GERD, Cholecystitis, Pancreatitis, Zoster, this is not meant to be an all-inclusive list. EKG interpreted by me (3pts min.). @ -Yes and demonstrates A-fib with a rate of 85. QRS 125. QTc of 441. No acute ST segment elevations or depressions X-rays interpreted by me (1pt min.). @ -Yes and demonstrates no acute process CT interpreted by me (1pt min.). @ -None done U/S interpreted by me (1pt. min.). @ -None done What testing was considered but not performed or refused? (CT, X-rays, U/S, labs)? Why? @ -None What meds were considered but not given or refused? Why? @ -None Did you discuss the management of the patient with other professionals (professionals i.e. , PA, SCORE CALLER, lab, RT, psych nurse, mental health social worker, fisher reef net, teacher, antisubmarine weapons officer, case operator)? Give summary @ -Spoke with Dr. Middleton for admisison Was smoking cessation discussed for >3mins.? @ -No Was critical care preformed (if so, how long)? @ -Yes, 40 minutes for NSTEMI Were there social determinants of health that impacted care today? How? (Homelessness, low income, unemployed, alcoholism, drug addiction, transportation, low edu. Level, literacy, decrease access to med. care, [facility] [facility], rehab)? @ -No Was there de-escalation of care discussed even if they declined (Discuss DNR or withdrawal of care, Hospice)? DNR status @ -No What co-morbidities impacted this encounter? (DM, HTN, Smoking, COPD, CAD, Cancer, CVA, ARF, Chemo, Hep., AIDS, mental health diagnosis, sleep apnea, morbid obesity)? @ -Coronary artery disease status post CABG Was patient admitted / discharged? Hospital course, mention meds given and route, prescriptions, significant lab abnormalities, going to OR and other pertinent info. @ -Admitted. Upon arrival patient was placed into room 7. Thorough history and physical exam was performed. IV was established. Laboratory studies are conducted. Twelve-lead EKG was performed. Chest x-ray was performed. Results are discussed with patient. I called and spoke with Dr. Middleton for admission. Also spoke with Dr. Ngo who is on for cardiology. He does come to the ED to evaluate the patient. Patient is initiated on a heparin drip Undiagnosed new problem with uncertain prognosis? @ -yes Drug Therapy requiring intensive monitoring for toxicity (Heparin, Nitro, Insulin, Cardizem)? @ -heparin Were any procedures done? @ -No Diagnosis/symptom? @ -Acute chest pain, NSTEMI Acute, or Chronic, or Acute on Chronic? @ -Acute Uncomplicated (without systemic symptoms) or Complicated (systemic symptoms)? @ -Complicated Side effects of treatment? @ -No Exacerbation, Progression, or Severe Exacerbation? @ -No Poses a threat to life or bodily function? How? (Chest pain, [place], [place], pneumonia, PE, COPD, DKA, ARF, appy, cholecystitis, CVA, Diverticulitis, Homicidal, Suicidal, threat to staff... and all critical care pts) @ -Yes as patient has elevated heart enzymes Disposition Clinical Impression: Acute non-ST elevation myocardial infarction (NSTEMI), ESRD (end stage renal disease), Acute respiratory insufficiency Disposition: ADMITTED IP TO THIS HOSP Condition: Fair Is patient prescribed a controlled substance at d/c from ED?: No Time of Disposition: 12:22 Decision to Admit Reason: Admit from EC Decision Date: 11/23/23 Decision Time: 12:22
[2023-11-23] MEDS ORDERED: NALOXONE 0.4 MG/ML 1 ML VIAL IV PRN ×2 (12:23→13:34)
[2023-11-23] MEDS ORDERED: ACETAMINOPHEN TAB 325 MG TAB PO PRN (13:34)
[2023-11-23] MEDS ORDERED: MELATONIN 3 MG TABLET PO PRN (13:34)
[2023-11-23] MEDS ORDERED: MAG HYDROX/AL HYDROX/SIMETH 30 ML CUP PO PRN (13:34)
[2023-11-23] MEDS ORDERED: CALCIUM ACETATE 667 MG TAB PO PRN (13:36)
[2023-11-23] MEDS ORDERED: DEXTROSE 50% SYRINGE 50 ML IVP PRN ×2 (13:39)
--- NOTE | 2023-11-23 13:42 | P.HPIM ---
History of Present Illness H&P Date: 11/23/23 History of present illness; patient is a 63-year-old gentleman past medical history significant for CAD, severe cardiomyopathy, status post stenting by Dr. Jimenez most recently in April 2023 of the LAD, history of paroxysmal atrial fibrillation, end-stage renal disease was brought to the ER for chest pain. Patient stated that he was all right this morning when after waking up he was sitting in his chair when he suddenly started experiencing left-sided chest pain. Left-sided chest pain was dull in nature, constant, nonradiating, no aggravating or relieving factor associated chest pain. Denies any shortness of breath. There was no complaint of any orthopnea or PND. There was no complaint of nausea, vomit abdominal pain. There was no complaint of fever or chills. Because of this chest pain, patient came to the ER Initial lab work done in the ER showed WBC 6, hemoglobin 10.4, platelet count 108, sodium 134, potassium 4.3, BUN 45, creatinine 5.15 glucose 105 AST 27, ALT 26, troponin 2.990, proBNP 80383 EKG done in the ER showed heart rate of 85, no ST segment elevation or dep ression seen, no T-wave inversions seen. Chest x-ray done in the ER showed mild to moderate cardiomegaly, lateral view shows patchy posterior basilar atelectasis versus developing infiltrate, clinically correlate Patient admitted to internal medicine service REVIEW OF SYSTEMS: CONSTITUTIONAL: No fever, no malaise, no fatigue. HEENT: No recent visual problems or hearing problems. Denied any sore throat. CARDIOVASCULAR: As mentioned in HPI PULMONARY: No shortness of breath, no cough, no hemoptysis. GASTROINTESTINAL: No diarrhea, no nausea, no vomiting, no abdominal pain. NEUROLOGICAL: No headaches, no weakness, no numbness. HEMATOLOGICAL: Denies any bleeding or petechiae. GENITOURINARY: Denies any burning micturition, frequency, or urgency. MUSCULOSKELETAL/RHEUMATOLOGICAL: Denies any joint pain, swelling, or any muscle pain. ENDOCRINE: Denies any polyuria or polydipsia. The rest of the 14-point review of systems is negative. PHYSICAL EXAMINATION: GENERAL: The patient is alert and oriented x3, not in any acute distress. Well developed, well nourished. HEENT: Pupils are round and equally reacting to light. EOMI. No scleral icterus. No conjunctival pallor. Normocephalic, atraumatic. No pharyngeal erythema. No thyromegaly. CARDIOVASCULAR: S1 and S2 present. No murmurs, rubs, or gallops. PULMONARY: Chest is clear to auscultation, no wheezing or crackles. ABDOMEN: Soft, nontender, nondistended, normoactive bowel sounds. No palpable organomegaly. MUSCULOSKELETAL: No joint swelling or deformity. Amputation of fingers of right and left hand seen EXTREMITIES: No cyanosis, clubbing,. 1+ pitting edema of lower extremities NEUROLOGICAL: Gross neurological examination did not reveal any focal deficits. SKIN: No rashes. Assessment and plan Non-ST elevation MS History of severe ischemic cardiomyopathy Status post LAD stenting in April Paroxysmal atrial fibrillation Status post digit amputation Type 2 diabetes mellitus Hypertension Sleep apnea Hypothyroidism Hyperlipidemia Monitor vital signs Monitor CBC Monitor CMP Continue telemetry monitoring Trend troponins. Stop Eliquis, start pharmacy dose heparin Monitor blood sugar level, continue sliding scale insulin. Resume Synthroid Resume Plavix and Coreg Consult cardiology Consult nephrology for maintenance dialysis Labs and medication were reviewed.. Continue same treatment. Continue with symptomatic treatment. Resume home medication. Monitor labs and vitals. DVT and GI prophylaxis. Further recommendations as per clinical course of the patient Dictation was produced using [employer] dictation software. please excuse any grammatical, word or spelling errors. Past Medical History Past Medical History: Coronary Artery Disease (CAD), Cancer, Heart Failure, CVA/TIA, Diabetes Mellitus, Eye Disorder, Hypertension, Myocardial Infarction ([place]), Renal Disease, Sleep Apnea/CPAP/BIPAP, Thyroid Disorder Additional Past Medical History / Comment(s): unhealing sore left index finger, neuropathy bilateral lower extremity/feet, bilateral eye diabetic retinopathy/poor vision/multiple injections, ESRD with hemodialysis T/TH/SAT from 6:15 to 11:00, anemia, "mini strokes" x2, AVANI with CPap use, occasional low back pain/disc disease, gout, hypothyroid Last Myocardial Infarction Date:: 04/19/23 History of Any Multi-Drug Resistant Organisms: MRSA Date of last positivie culture/infection: 12/10/21 MDRO Source:: Finger-Right 5th Past Surgical History: Adenoidectomy, Bariatric Surgery, Cholecystectomy, Heart Catheterization, Heart Catheterization With Stent, Orthopedic Surgery, Tonsillectomy Additional Past Surgical History / Comment(s): 10/22/20 PCI with stents x2, lap banding, FX of right ankle repair pins / plate, fistual lt arm jul 2018, lt shoulder sx (d/t separation), colonoscopies, bilateral cataract removals/lens implants. LIF surgery 08/11/21 R LEG stacey placed January 2023 04/19/23 3 stents Past Anesthesia/Blood Transfusion Reactions: Motion Sickness Additional Past Anesthesia/Blood Transfusion Reaction / Comment(s): DODIE RPHOBIA Date of Last Stent Placement:: 04/19/23 Past Psychological History: Anxiety Smoking Status: Former smoker Past Alcohol Use History: None Reported Past Drug Use History: None Reported - Past Family History Mother History Unknown: Yes Family Medical History: Coronary Artery Disease (CAD), Myocardial Infarction ([place]) Additional Family Medical History / Comment(s): Mother at age 58 from multiple sclerosis Father Family Medical History: CVA/TIA, Myocardial Infarction ([place]) Additional Family Medical History / Comment(s): Father had history of MS and CVA followed by a second MS and CVA and at age 65. Brother(s) Additional Family Medical History / Comment(s): . Medications and Allergies Home Medications Medication Instructions Recorded Confirmed Type Levothyroxine Sodium 100 mcg PO DAILY 07/06/17 11/23/23 History Torsemide [Demadex] 40 mg PO DAILY 09/10/19 11/23/23 History HYDROcodone/APAP 10-325MG [[place] 1 tab PO 5XD PRN 11/24/20 11/23/23 History 10-325] Insulin Regular, Human [NovoLIN R 8 - 20 unit SQ ACHS PRN 11/24/20 11/23/23 History Flexpen] FLUoxetine HCL [PROzac] 40 mg PO DAILY 30 Days #30 cap 10/16/22 11/23/23 Rx Apixaban [Eliquis] 2.5 mg PO BID 02/16/23 11/23/23 History carvediloL [Coreg] 6.25 mg PO TID #60 tab 04/25/23 11/23/23 Rx Atorvastatin [Lipitor] 40 mg PO HS 07/16/23 11/23/23 History Calcium Acetate [PhosLo] 667 mg PO AC-TID 07/16/23 11/23/23 History Calcium Acetate [PhosLo] 667 mg PO DAILY PRN 07/16/23 11/23/23 History Clopidogrel [Plavix] 75 mg PO DAILY 07/16/23 11/23/23 History Insulin Regular, Human [NovoLIN R See Protocol SQ ACHS PRN 07/16/23 11/23/23 History Flexpen] Amitriptyline HCl [Elavil] 25 mg PO HS PRN 11/23/23 11/23/23 History Folic Acid/Vit B Complex and C 0.8 mg PO DAILY 11/23/23 11/23/23 History [Bryanna-Olimpia Tablet] Insulin Detemir [Levemir Flexpen] 25 - 30 units SQ HS 11/23/23 11/23/23 History LORazepam 1 mg PO BID PRN 11/23/23 11/23/23 History Midodrine HCl [ProAmatine] 10 mg PO AC-TID PRN 11/23/23 11/23/23 History Allergies Allergy/AdvReac Type Severity Reaction Status Date / Time No Known Allergies Allergy Verified 11/23/23 11:48 Physical Exam Vitals: Vital Signs Temp Pulse Resp BP Pulse Ox 11/23/23 11:48 95 17 98/62 100 11/23/23 10:17 98.5 F 100 18 97/59 98 Intake and Output 11/22/23 11/23/23 11/23/23 22:59 06:59 14:59 Other: Weight 127.006 kg Results CBC & Chem 7: 11/23/23 11:22 11/23/23 11:22 Labs: Abnormal Lab Results - Last 24 Hours (Table) 11/23/23 11/23/23 11/23/23 Range/Units 11:22 11:22 11:22 RBC 3.06 L (4.30-5.90) m/uL Hgb 10.4 L (13.0-17.5) gm/dL Hct 30.5 L (39.0-53.0) % RDW 15.9 H (11.5-15.5) % Plt Count 108 L (150-450) k/uL Lymphocytes # 0.7 L (1.0-4.8) k/uL INR 1.2 H (<1.2) Sodium 134 L (137-145) mmol/L Chloride 93 L (98-107) mmol/L BUN 45 H (9-20) mg/dL Creatinine 5.15 H (0.66-1.25) mg/dL Glucose 105 H (74-99) mg/dL Troponin I (0.000-0.034) ng/mL 11/23/23 Range/Units 11:22 RBC (4.30-5.90) m/uL Hgb (13.0-17.5) gm/dL Hct (39.0-53.0) % RDW (11.5-15.5) % Plt Count (150-450) k/uL Lymphocytes # (1.0-4.8) k/uL INR (<1.2) Sodium (137-145) mmol/L Chloride (98-107) mmol/L BUN (9-20) mg/dL Creatinine (0.66-1.25) mg/dL Glucose (74-99) mg/dL Troponin I 2.990 H* (0.000-0.034) ng/mL
[2023-11-23] MEDS: ASPIRIN 81 MG PO STA (14:17)
[2023-11-23] MEDS: HEPARIN SOD,PORK IN 0.45% NACL 25,000 UNIT in 0.45% NACL 1 250ML.BAG IV SCH (14:17)
[2023-11-23] MEDS: MORPHINE SULFATE 2 MG/ML SYRINGE IVP PRN (14:31)
[2023-11-23] MEDS ORDERED: ALPRAZolam 0.5 MG TAB PO PRN (14:32)
[2023-11-23] MEDS ORDERED: NITROGLYCERIN SL TABS 0.4 MG TAB SUBLINGUAL PRN (14:32)
[2023-11-23] MEDS ORDERED: ALPRAZolam 0.25 MG TAB PO PRN (14:32)
--- NOTE | 2023-11-23 15:01 | P.CRDCN ---
History of Present Illness Consult date: 11/23/23 Reason for Consult (text): NSTEMI History of present illness: History of present illness: This is a 63-year-old male patient of Dr. Jimenez with past medical history of hypertension, hyperlipidemia, coronary artery disease with PCI in 2020 and recently in 2022, paroxysmal atrial fibrillation, pericardial effusion with tamponade status post pericardial window in November 2020, end-stage renal disease on dialysis, prostate cancer s/p radiation in 2016, hypertension, amputation of the fingers on his left hand and partial on the right secondary to osteomyelitis , 3 TIAs, diabetic neuropathy. We have been asked to evaluate the patient for ST elevated myocardial infarction. Patient gives history that he developed shortness of breath with dyspnea on exertion that significantly worsened yesterday. He did have dialysis yesterday as normally scheduled and follows with Dr. Hess. He has not missed any episodes of dialysis. He states he had discomfort in his chest and a little edema but not bad in his lower legs. He denies any chest pain at this time. More so was the dyspnea on exertion that was bothering him. No palpitations, no calf pain, no cough no fever no wheezing. He states he has not been sleeping well. He states he has had some difficulty with swallowing eating and drinking and then gags and that seems to clear which he thought was related to the Lap-Band which is currently empty. EKG atrial fibrillation Chest x-ray: Mild to moderate cardiomegaly. Lateral view shows patchy posterior basilar atelectasis versus developing infiltrate. WBC 6, hemoglobin 10.4, platelet count 108, INR 1.2. Sodium 134, potassium 4.3, BUN 45 creatinine 5.15. Troponin 2.99. proBNP 72,900. Liver function tests are normal. Magnesium 1.8. Home cardiac medications: Eliquis 2.5 mg twice daily, Lipitor 40 mg at bedtime, Coreg 6.25 mg 3 times daily, Plavix 75 mg daily, midodrine 10 mg 3 times daily as needed with dialysis, torsemide 40 mg daily, also on thyroxine 100 mcg daily. Limited echocardiogram performed 07/16/2023 revealed EF 25 to 30%. Moderate mitral regurgitation, mild aortic stenosis. 04/18/2023 cardiac catheterization revealed diffuse mild CAD and significant obstructive 90% mid LAD, 100% mid to distal LAD, 80% diagonal stenosis status post PCI of the mid LAD and PCI diagonal 1, PCI mid to distal LAD. Review Of Systems: At the time of my exam: CONSTITUTIONAL: Denies fever or chills. HEENT: Denies blurred vision, vision changes, or eye pain. Denies hemoptysis CARDIOVASCULAR: Denies chest pain. Denies orthopnea. Denies PND. Denies palpitations RESPIRATORY: Denies shortness of breath. + dyspnea on exertion GASTROINTESTINAL: Denies abdominal pain. Denies nausea or vomiting. HEMATOLOGIC: Denies bleeding disorders. GENITOURINARY: Denies any blood in urine. SKIN: Denies pruitis. Denies rash. Physical examination: Gen: This is a okay 63-year-old male in no acute distress. VS: reviewed HEENT: Head is atraumatic, normocephalic. Pupils equal, round. Sclerae is anicteric. NECK: Supple. No JVD. LUNGS: Clear to auscultation. No wheezes or rhonchi. No intercostal retractions. HEART: Regular rate and rhythm. No murmur. ABDOMEN: Soft No tenderness. EXTREMITIES: No pedal edema. No calf tenderness. NEUROLOGICAL: Patient is awake, alert and oriented x3. Assessment: Non-ST elevated myocardial infarction End-stage renal disease History of coronary artery disease with previous PCI in 2020 followed by April 2023 Paroxysmal atrial fibrillation History of pericardial effusion with tamponade status post pericardial window in 2020 Prostate cancer status postradiation Hypertension Amputation of fingers secondary to osteomyelitis Plan: Resume patient's home cardiac medications Continue to hold Eliquis Heparin drip Schedule patient for cardiac catheterization tomorrow with Dr. Best Obtain echocardiogram report from office Further recommendations to follow based upon clinical course Thank you kindly for this consultation. Nurse practitioner note has been reviewed, I agree with documented findings and plan of care. Patient was seen and examined. Past Medical History Past Medical History: Coronary Artery Disease (CAD), Cancer, Heart Failure, CVA/TIA, Diabetes Mellitus, Eye Disorder, Hypertension, Myocardial Infarction ([place]), Renal Disease, Sleep Apnea/CPAP/BIPAP, Thyroid Disorder Additional Past Medical History / Comment(s): unhealing sore left index finger, neuropathy bilateral lower extremity/feet, bilateral eye diabetic retinopathy/poor vision/multiple injections, ESRD with hemodialysis T/TH/SAT from 6:15 to 11:00, anemia, "mini strokes" x2, AVANI with CPap use, occasional low back pain/disc disease, gout, hypothyroid Last Myocardial Infarction Date:: 04/19/23 History of Any Multi-Drug Resistant Organisms: MRSA Date of last positivie culture/infection: 12/10/21 MDRO Source:: Finger-Right 5th Past Surgical History: Adenoidectomy, Bariatric Surgery, Cholecystectomy, Heart Catheterization, Heart Catheterization With Stent, Orthopedic Surgery, Tonsillectomy Additional Past Surgical History / Comment(s): 10/22/20 PCI with stents x2, lap banding, FX of right ankle repair pins / plate, fistual lt arm jul 2018, lt shou lder sx (d/t separation), colonoscopies, bilateral cataract removals/lens implants. LIF surgery 08/11/21 R LEG stacey placed January 2023 04/19/23 3 stents Past Anesthesia/Blood Transfusion Reactions: Motion Sickness Additional Past Anesthesia/Blood Transfusion Reaction / Comment(s): CLAUSTERPHOBIA Date of Last Stent Placement:: 04/19/23 Past Psychological History: Anxiety Smoking Status: Former smoker Past Alcohol Use History: None Reported Past Drug Use History: None Reported - Past Family History Mother History Unknown: Yes Family Medical History: Coronary Artery Disease (CAD), Myocardial Infarction ([place]) Additional Family Medical History / Comment(s): Mother at age 58 from multiple sclerosis Father Family Medical History: CVA/TIA, Myocardial Infarction ([place]) Additional Family Medical History / Comment(s): Father had history of [place] and CVA followed by a second [place] and CVA and at age 65. Brother(s) Additional Family Medical History / Comment(s): . Medications and Allergies Home Medications Medication Instructions Recorded Confirmed Type Levothyroxine Sodium 100 mcg PO DAILY 07/06/17 11/23/23 History Torsemide [Demadex] 40 mg PO DAILY 09/10/19 11/23/23 History HYDROcodone/APAP 10-325MG [Stanton 1 tab PO 5XD PRN 11/24/20 11/23/23 History 10-325] Insulin Regular, Human [NovoLIN R 8 - 20 unit SQ ACHS PRN 11/24/20 11/23/23 History Flexpen] FLUoxetine HCL [PROzac] 40 mg PO DAILY 30 Days #30 cap 10/16/22 11/23/23 Rx Apixaban [Eliquis] 2.5 mg PO BID 02/16/23 11/23/23 History carvediloL [Coreg] 6.25 mg PO TID #60 tab 04/25/23 11/23/23 Rx Atorvastatin [Lipitor] 40 mg PO HS 07/16/23 11/23/23 History Calcium Acetate [PhosLo] 667 mg PO AC-TID 07/16/23 11/23/23 History Calcium Acetate [PhosLo] 667 mg PO DAILY PRN 07/16/23 11/23/23 History Clopidogrel [Plavix] 75 mg PO DAILY 07/16/23 11/23/23 History Insulin Regular, Human [NovoLIN R See Protocol SQ ACHS PRN 07/16/23 11/23/23 History Flexpen] Amitriptyline HCl [Elavil] 25 mg PO HS PRN 11/23/23 11/23/23 History Folic Acid/Vit B Complex and C 0.8 mg PO DAILY 11/23/23 11/23/23 History [Bryanna-Olimpia Tablet] Insulin Detemir [Levemir Flexpen] 25 - 30 units SQ HS 11/23/23 11/23/23 History LORazepam 1 mg PO BID PRN 11/23/23 11/23/23 History Midodrine HCl [ProAmatine] 10 mg PO AC-TID PRN 11/23/23 11/23/23 History Allergies Allergy/AdvReac Type Severity Reaction Status Date / Time No Known Allergies Allergy Verified 11/23/23 11:48 Physical Exam Vitals: Vital Signs Temp Pulse Resp BP Pulse Ox 11/23/23 11:48 95 17 98/62 100 11/23/23 10:17 98.5 F 100 18 97/59 98 Intake and Output 11/22/23 11/23/23 11/23/23 22:59 06:59 14:59 Other: Weight 127.006 kg Results 11/23/23 11:22 11/23/23 11:22 Cardiac Enzymes 11/23/23 11/23/23 Range/Units 11:22 11:22 AST 27 (17-59) U/L Troponin I 2.990 H* (0.000-0.034) ng/mL Coagulation 11/23/23 Range/Units 11:22 PT 12.4 (10.0-12.5) sec APTT 29.1 (22.0-30.0) sec CBC 11/23/23 Range/Units 11:22 WBC 6.0 (3.8-10.6) k/uL RBC 3.06 L (4.30-5.90) m/uL Hgb 10.4 L (13.0-17.5) gm/dL Hct 30.5 L (39.0-53.0) % Plt Count 108 L (150-450) k/uL Comprehensive Metabolic Panel 11/23/23 Range/Units 11:22 Sodium 134 L (137-145) mmol/L Potassium 4.3 (3.5-5.1) mmol/L Chloride 93 L (98-107) mmol/L Carbon Dioxide 30 (22-30) mmol/L BUN 45 H (9-20) mg/dL Creatinine 5.15 H (0.66-1.25) mg/dL Glucose 105 H (74-99) mg/dL Calcium 8.7 (8.4-10.2) mg/dL AST 27 (17-59) U/L ALT 26 (4-49) U/L Alkaline Phosphatase 88 (38-126) U/L Total Protein 7.0 (6.3-8.2) g/dL Albumin 3.8 (3.5-5.0) g/dL Current Medications Generic Name Dose Route Start Last Admin Trade Name Freq PRN Reason Stop Dose Admin Heparin Sodium (Porcine) 0 unit 11/23/23 12:18 Heparin Sodium 1,000 Un/Ml (10ml Vl) IV PER PROTOCOL PRN Low PTT Protocol Heparin Sodium/Sodium Chloride 250 mls @ 10 mls/hr 11/23/23 12:30 25,000 unit/ Sodium Chloride IV .Q24H ALINE Protocol 7.874 UNITS/KG/HR Naloxone HCl 0.2 mg 11/23/23 12:23 Naloxone 0.4 Mg/Ml 1 Ml Vial IV Q2M PRN Opioid Reversal Intake and Output 11/22/23 11/23/23 11/23/23 22:59 06:59 14:59 Other: Weight 127.006 kg Patient Weight 11/24/23 06:59 Weight 127.006 kg 11/23/23 11:22 11/23/23 11:22
[2023-11-23] MEDS: MIDODRINE 5 MG TAB PO PRN (16:33)
[2023-11-23 17:10] LABS: Glucose,Whole Blood 130 mg/dL (70-110)
[2023-11-23] MEDS: INSULIN ASPART (NovoLOG) 100 UNIT/ML VIAL SQ SCH (17:13)
[2023-11-23] MEDS: carvediloL 6.25 MG TAB PO SCH (18:49)
[2023-11-23] MEDS: CALCIUM ACETATE 667 MG TAB PO SCH (18:49)
[2023-11-23 20:02] LABS: Glucose,Whole Blood 127 mg/dL (70-110)
[2023-11-23] MEDS: ATORVASTATIN 40 MG TAB PO SCH (21:17)
[2023-11-23] MEDS: HEPARIN SODIUM 1,000 UN/ML (10ML VL) IV PRN (22:54)
[2023-11-23] MEDS: INSULIN DETEMIR (LEVEMIR) 100 UNIT/ML SYR SQ SCH (22:54)
[2023-11-24] MEDS: SODIUM CHLORIDE 0.9% 1,000 ML in EMPTY BAG 1 BAG IV SCH ×2 (03:09→15:59)
[2023-11-24 06:13] LABS: Glucose,Whole Blood 133 mg/dL (70-110)
[2023-11-24] MEDS: LEVOTHYROXINE 100 MCG TAB PO SCH (06:35)
[2023-11-24] MEDS: ASPIRIN 325 MG TAB PO ONE (06:35)
[2023-11-24] MEDS: ATORVASTATIN 80 MG TAB PO ONE (06:35)
[2023-11-24] MEDS ORDERED: HEPARIN SODIUM,PORCINE (1 ML) 2,500 UNIT in SODIUM CHLORIDE 0.9% 250 ML IRRIGATION PRN (07:00)
[2023-11-24] MEDS ORDERED: HEPARIN SODIUM,PORCINE 10,000 UNIT in SODIUM CHLORIDE 0.9% 1,000 ML IRRIGATION PRN (07:00)
[2023-11-24 08:15] LABS: Potassium 4.9 mmol/L (3.5-5.1)
[2023-11-24 08:16] LABS: African American GFR (CKD) 9 (>60 ml/min/1.73 sqM); Anion Gap 16 mmol/L; Blood Urea Nitrogen 62 mg/dL (9-20); Calcium 8.3 mg/dL (8.4-10.2); Carbon Dioxide 26 mmol/L (22-30); Chloride 92 mmol/L (98-107); Glucose 132 mg/dL (74-99); Non-African American GFR(CKD) 8 (>60 ml/min/1.73 sqM); Sodium 134 mmol/L (137-145)
[2023-11-24 08:20] LABS: Anisocytosis Slight; Basophils % (A) 1 %; Eosinophils # (A) 0.1 k/uL (0-0.7); Eosinophils % (A) 1 %; HCT 30.4 % (39.0-53.0); Lymphocytes # (A) 0.5 k/uL (1.0-4.8); Lymphocytes % (A) 8 %; MCH 33.5 pg (25.0-35.0); MCHC 32.8 g/dL (31.0-37.0); Macrocytosis Moderate; Mean Platelet Volume 8.4; Monocytes # (A) 0.3 k/uL (0-1.0); Monocytes % (A) 5 %; Neutrophils # (A) 5.6 k/uL (1.3-7.7); Neutrophils % (A) 84 %; Platelet Count 100 k/uL (150-450); RBC 2.98 m/uL (4.30-5.90); RDW 16.2 % (11.5-15.5); WBC 6.6 k/uL (3.8-10.6)
[2023-11-24 08:22] LABS: INR 1.1 (<1.2); Prothrombin Time 12.1 sec (10.0-12.5)
[2023-11-24] MEDS: LORazepam 1 MG TAB PO PRN (08:26)
[2023-11-24] MEDS: FLUoxetine HCL 20 MG CAP PO SCH (08:26)
[2023-11-24] MEDS: CLOPIDOGREL 75 MG TAB PO SCH (08:26)
[2023-11-24] MEDS: TORSEMIDE 20 MG TAB PO SCH (08:27)
[2023-11-24] MEDS: HYDROcodone/APAP 10-325MG 1 EACH TAB PO PRN (09:18)
[2023-11-24] MEDS: fentaNYL (PF) 50 MCG/1 ML VIAL IVP ONE (10:22)
[2023-11-24] MEDS: LIDOCAINE 1% INJ 10MG/ML (20 ML MDV) SQ ONE (10:22)
[2023-11-24] MEDS: MIDAZOLAM 2 MG/2 ML VIAL IVP ONE ×2 (10:24→10:43)
[2023-11-24] MEDS: LIDOCAINE 1% INJ 10MG/ML (10 ML MDV) SQ ONE (10:37)
[2023-11-24] MEDS: HEPARIN SODIUM 1,000 UN/ML (10ML VL) IVP ONE (10:51)
[2023-11-24] MEDS: NOREPINEPHRINE 4 MG in SODIUM CHLORIDE 0.9% 250 ML IV ONE (11:02)
[2023-11-24] MEDS: IOPAMIDOL-370 100ML BTL INTRATHECA ONE (11:48)
[2023-11-24] MEDS: SODIUM CHLORIDE 0.9% 1,000 ML IV ONE (11:49)
[2023-11-24] MEDS ORDERED: ZOLPIDEM 5 MG TAB PO PRN (11:56)
[2023-11-24] MEDS ORDERED: ATROPINE SULFATE 0.1 MG/ML 10ML SYRINGE IV PRN (11:56)
[2023-11-24] MEDS ORDERED: MAG HYDROX/AL HYDROX/SIMETH 30 ML CUP PO PRN (11:56)
[2023-11-24] MEDS ORDERED: NITROGLYCERIN SL TABS 0.4 MG TAB SUBLINGUAL PRN (11:56)
[2023-11-24] MEDS ORDERED: RX INFO: IV CONTRAST WAS GIVEN 1 EACH MISC MISCELLANE PRN (11:56)
--- NOTE | 2023-11-24 12:09 | P.CARDCATH ---
Date of Procedure: 11/24/23 Description of Procedure: Cardiac Catheterization: The patient is a 63-year-old male with known history of end-stage renal disease, on hemodialysis, history of CAD with multivessel stenting most recently in April 2023 office total occluded LAD in the setting of myocardial infarction, done by Dr. Jimenze, history of peripheral vascular disease who presented with chest discomfort and evidence of non-STEMI. The patient has a known history of severe cardiomyopathy. Recommendations were made regarding cardiac catheterization, the risks and the complications were discussed with the patient who is in full understanding and agreement. Procedure Description: Patient was brought to medical lab scientist in fasting semi-sedated state after receiving Fentanyl and Benadryl achieiving moderate conscious sedated state. Using Xylocaine Anesthesia and modified Seldinger technique, a 6-Honduran sheath was introduced in the right femoral artery using a micro puncture catheter. Attempt to cannulate the radial artery was unsuccessful because of very weak pulse. At the time of the procedure his blood pressure noninvasively was running in the 60 to 70 mmHg. Subsequently, selective coronary angiography was performed using a 6-Honduran 4 bend Fara catheter. Multiple views of the coronary artery including hemiaxial views were obtained. The right Fara catheter was used to cross the aortic valve and LVEDP was calculated. PCI: After removing the catheters a 6 [place] CLS 3.5 guiding catheter was introduced and after cannulating the left main a 0.014 BMW J-wire was positioned distally subsequently a 2.5 x 12 mm trek balloon was advanced and 2 inflation at 8 kareen were done. Attempt to advance a [place] eye IVUS was unsuccessful, the catheter was removed and a 2.5 x 12 mm NC trek balloon was advanced and 2 inflations at 10 kareen were done. Subsequently the IVUS catheter was advanced with the help of a 6 [place] guide liner. Images were obtained. Subsequently a 3.25 x 18 mm Xience alfred point stent was deployed at 16 kareen. Repeat IVUS imaging was performed and after removing the catheter a 3.25 x 15 mm NC trek balloon was advanced and multiple inflation at a maximum of 10 kareen were done. Following that the wire was removed images were obtained and revealed stable successful stenting. Following that, catheter and sheath were removed. The sheath was sutured in place. There was no immediate complication. Patient was returned to room in stable condition. Of note, the patient received a total of 7000 units of intravenous heparin and continued on clopidogrel. His blood pressure improved at the end of the procedure with low-dose norepinephrine. He had no chest discomfort or significant EKG changes. Findings: Fluoroscopy: Severe calcification of both iliofemoral artery was noted. Severe calcification of the coronary arteries was noted. Left main: This is a large size vessel, bifurcating into left circumflex and LAD, left main has 10 to 20% plaque with no high-grade stenosis LAD: This is a large size vessel giving rise to 2 diagonal branch. The second 1 is large in caliber and has a 99% stenosis at the ostium. Stay stented segment proximally of the LAD is patent with 20% in-stent restenosis. The mid LAD is subtotally occluded with very slow distal flow. The occlusion appears to be at the proximal edge of the stent. Left circumflex: This is a nondominant vessel giving rise to 2 obtuse marginal branch. The left circumflex is diffusely diseased with area of stenosis in the proximal and mid segment up to 60 to 70% and a heavily calcified areas. RCA: This is a large dominant vessel, bifurcating into PDA and PLV. The stented segment of the proximal right coronary artery is patent there is mild plaque into the RCA of 20 to 30%. Left Ventriculogram: Not performed Hemodynamics: There was no gradient across the aortic valve, LVEDP was 20-25 mmHg Conclusion: 1. Heavily calcified coronary arteries and calcified bilateral iliofemoral arteries 2. Subtotally occluded mid LAD 3. Mild disease in the RCA 4. Moderate to severe disease in the left circumflex 5. Successful stenting of the mid LAD with IVUS imaging and reduction of stenosis from 99% to less than 5% 6. Cardiogenic shock at the start of the procedure with improvement in blood pressure at the end Recommendations: The patient will continue on aspirin and clopidogrel for 1 year without any interruption in addition to aggressive coronary risks modification and maintaining the LDL to less then 70 mg/dL. The prognosis remains guarded in view of his comorbid state and severe cardiomyopathy. The findings and the recommendations were discussed with the patient and the family and they were in full understanding and agreement. Duration of sedation is 75 minutes.
[2023-11-24 12:14] LABS: Glucose,Whole Blood 134 mg/dL (70-110)
--- NOTE | 2023-11-24 12:56 | P.PN ---
Subjective Progress Note Date: 11/24/23 patient is a 63-year-old gentleman past medical history significant for CAD, severe cardiomyopathy, status post stenting by Dr. Jimenez most recently in April 2023 of the LAD, history of paroxysmal atrial fibrillation, end-stage renal disease was brought to the ER for chest pain. Patient stated that he was all right this morning when after waking up he was sitting in his chair when he suddenly started experiencing left-sided chest pain. Left-sided chest pain was dull in nature, constant, nonradiating, no aggravating or relieving factor associated chest pain. Denies any shortness of breath. There was no complaint of any orthopnea or PND. There was no complaint of nausea, vomit abdominal p ain. There was no complaint of fever or chills. Because of this chest pain, patient came to the ER Initial lab work done in the ER showed WBC 6, hemoglobin 10.4, platelet count 108, sodium 134, potassium 4.3, BUN 45, creatinine 5.15 glucose 105 AST 27, ALT 26, troponin 2.990, proBNP 91421 EKG done in the ER showed heart rate of 85, no ST segment elevation or depression seen, no T-wave inversions seen. Chest x-ray done in the ER showed mild to moderate cardiomegaly, lateral view shows patchy posterior basilar atelectasis versus developing infiltrate, clinically correlate Patient admitted to internal medicine service 11/23. Patient seen and examined. Currently n.p.o., going for cardiac cath today REVIEW OF SYSTEMS: CONSTITUTIONAL: No fever, no malaise,. CARDIOVASCULAR: No chest pain, no palpitations, no syncope. PULMONARY: No shortness of breath, no cough, GASTROINTESTINAL: No diarrhea, no nausea, no vomiting, no abdominal pain. NEUROLOGICAL: No headaches, no weakness, PHYSICAL EXAMINATION: GENERAL: The patient is alert and oriented x3, not in any acute distress. Well developed, well nourished. HEENT: Pupils are round and equally reacting to light. EOMI. No scleral icterus. No conjunctival pallor. Normocephalic, atraumatic. No pharyngeal erythema. No thyromegaly. CARDIOVASCULAR: S1 and S2 present. No murmurs, rubs, or gallops. PULMONARY: Chest is clear to auscultation, no wheezing or crackles. ABDOMEN: Soft, nontender, nondistended, normoactive bowel sounds. No palpable organomegaly. MUSCULOSKELETAL: No joint swelling or deformity. Amputation of fingers of right and left hand seen EXTREMITIES: No cyanosis, clubbing,. 1+ pitting edema of lower extremities NEUROLOGICAL: Gross neurological examination did not reveal any focal deficits. SKIN: No rashes. Assessment and plan Non-ST elevation VT History of severe ischemic cardiomyopathy Status post LAD stenting in April Paroxysmal atrial fibrillation Status post digit amputation Type 2 diabetes mellitus Hypertension Sleep apnea Hypothyroidism Hyperlipidemia History of pericardial effusion with tamponade status post pericardial window in 2020 Prostate cancer status postradiation Monitor vital signs Monitor CBC Monitor CMP Continue telemetry monitoring Trend troponins. Continue pharmacy dose heparin Monitor blood sugar level, continue sliding scale insulin. Continue Synthroid Continue Plavix and Coreg Cardiology following, planning cardiac catheterization today Consult nephrology for maintenance dialysis Labs and medication were reviewed.. Continue same treatment. Continue with symptomatic treatment. Resume home medication. Monitor labs and vitals. DVT and GI prophylaxis. Further recommendations as per clinical course of the patient Dictation was produced using [employer] dictation software. please excuse any grammatical, word or spelling errors. Objective - Vital Signs Vital signs: Vital Signs Temp 98.2 F 11/24/23 08:23 Pulse 75 11/24/23 08:23 Resp 18 11/24/23 08:23 BP 100/63 11/24/23 08:23 Pulse Ox 99 11/24/23 08:23 FiO2 Intake & Output 11/23/23 11/24/23 11/24/23 18:59 06:59 18:59 Intake Total 204.333 146.679 Balance 204.333 146.679 Weight 127.006 kg Intake: IV 10 Invasive Line 1 10 Intake, IV Titration 86.333 136.679 Amount Heparin Sod,Pork in 0.45% 86.333 136.679 NaCl 25,000 unit In 0.45 % NaCl 1 250ml.bag @ 7. 874 UNITS/KG/HR 10 mls/hr IV .Q24H ALINE Rx#: [id number] Oral 118 Other: Voiding Method Urinal - Labs CBC & Chem 7: 11/24/23 07:26 11/24/23 07:26 Labs: Abnormal Lab Results - Last 24 Hours (Table) 11/23/23 11/23/23 11/23/23 Range/Units 11:22 11:22 11:22 RBC 3.06 L (4.30-5.90) m/uL Hgb 10.4 L (13.0-17.5) gm/dL Hct 30.5 L (39.0-53.0) % MCV (80.0-100.0) fL RDW 15.9 H (11.5-15.5) % Plt Count 108 L (150-450) k/uL Lymphocytes # 0.7 L (1.0-4.8) k/uL INR 1.2 H (<1.2) APTT (22.0-30.0) sec Sodium 134 L (137-145) mmol/L Chloride 93 L (98-107) mmol/L BUN 45 H (9-20) mg/dL Creatinine 5.15 H (0.66-1.25) mg/dL Glucose 105 H (74-99) mg/dL POC Glucose (mg/dL) (70-110) mg/dL Hemoglobin A1c (<=6.0) % Calcium (8.4-10.2) mg/dL Troponin I (0.000-0.034) ng/mL 11/23/23 11/23/23 11/23/23 Range/Units 11:22 14:51 14:51 RBC (4.30-5.90) m/uL Hgb (13.0-17.5) gm/dL Hct (39.0-53.0) % MCV (80.0-100.0) fL RDW (11.5-15.5) % Plt Count (150-450) k/uL Lymphocytes # (1.0-4.8) k/uL INR (<1.2) APTT (22.0-30.0) sec Sodium (137-145) mmol/L Chloride (98-107) mmol/L BUN (9-20) mg/dL Creatinine (0.66-1.25) mg/dL Glucose (74-99) mg/dL POC Glucose (mg/dL) (70-110) mg/dL Hemoglobin A1c 6.7 H (<=6.0) % Calcium (8.4-10.2) mg/dL Troponin I 2.990 H* 3.170 H* (0.000-0.034) ng/mL 11/23/23 11/23/23 11/23/23 Range/Units 17:08 17:53 17:53 RBC (4.30-5.90) m/uL Hgb (13.0-17.5) gm/dL Hct (39.0-53.0) % MCV (80.0-100.0) fL RDW (11.5-15.5) % Plt Count (150-450) k/uL Lymphocytes # (1.0-4.8) k/uL INR (<1.2) APTT 32.9 H (22.0-30.0) sec Sodium (137-145) mmol/L Chloride (98-107) mmol/L BUN (9-20) mg/dL Creatinine (0.66-1.25) mg/dL Glucose (74-99) mg/dL POC Glucose (mg/dL) 130 H (70-110) mg/dL Hemoglobin A1c (<=6.0) % Calcium (8.4-10.2) mg/dL Troponin I 3.810 H* (0.000-0.034) ng/mL 11/23/23 11/23/23 11/24/23 Range/Units 20:00 20:56 06:12 RBC (4.30-5.90) m/uL Hgb (13.0-17.5) gm/dL Hct (39.0-53.0) % MCV (80.0-100.0) fL RDW (11.5-15.5) % Plt Count (150-450) k/uL Lymphocytes # (1.0-4.8) k/uL INR (<1.2) APTT 33.2 H (22.0-30.0) sec Sodium (137-145) mmol/L Chloride (98-107) mmol/L BUN (9-20) mg/dL Creatinine (0.66-1.25) mg/dL Glucose (74-99) mg/dL POC Glucose (mg/dL) 127 H 133 H (70-110) mg/dL Hemoglobin A1c (<=6.0) % Calcium (8.4-10.2) mg/dL Troponin I (0.000-0.034) ng/mL 03/14/24 03/14/24 03/14/24 Range/Units 07:26 07:26 07:26 RBC 2.98 L (4.30-5.90) m/uL Hgb 10.0 L (13.0-17.5) gm/dL Hct 30.4 L (39.0-53.0) % MCV 102.0 H (80.0-100.0) fL RDW 16.2 H (11.5-15.5) % Plt Count 100 L (150-450) k/uL Lymphocytes # 0.5 L (1.0-4.8) k/uL INR (<1.2) APTT 34.6 H (22.0-30.0) sec Sodium 134 L (137-145) mmol/L Chloride 92 L (98-107) mmol/L BUN 62 H (9-20) mg/dL Creatinine 6.59 H (0.66-1.25) mg/dL Glucose 132 H (74-99) mg/dL POC Glucose (mg/dL) (70-110) mg/dL Hemoglobin A1c (<=6.0) % Calcium 8.3 L (8.4-10.2) mg/dL Troponin I (0.000-0.034) ng/mL
--- NOTE | 2023-11-24 13:14 | P.NPCON ---
History of Present Illness - Reason for Consult end stage renal disease - History of Present Illness Reason for consultation: End-stage renal disease History of present was: Patient is a 63-year-old male seen in renal consultation for end-stage renal disease. He is maintained on hemodialysis on Tuesday schedule via left upper extremity fistula. Last hemodialysis was on Tuesday. Patient came to the hospital due to chest pain and shortness of breath. Patient states he has been having exertional dyspnea the last few days. Patient states his blood pressure has also been running lower than usual. Patient has history of coronary disease with 5 cardiac stents. He underwent cardiac catheterization today with stenting of the LAD. Patient's blood pressure was noted to be quite low and was started on Levophed. He is also receiving IV fluids. Denies chest pain or shortness of breath. No fever or chills. No abdominal pain. No nausea vomiting or diarrhea. Patient has longstanding history of diabetes. Vital signs are stable. On Levophed. General: No acute distress. HEENT: Head exam is unremarkable. LUNGS: No audible rhonchi or wheezes. HEART: Rate and Rhythm are regular. ABDOMEN: Obese, nontender. EXTREMITITES: No edema. Past Medical History Past Medical History: Coronary Artery Disease (CAD), Cancer, Heart Failure, CVA/TIA, Diabetes Mellitus, Eye Disorder, Hypertension, Myocardial Infarction (NE), Neurologic Disorder, Renal Disease, Sleep Apnea/CPAP/BIPAP, Thyroid Disorder Additional Past Medical History / Comment(s): unhealing sore left index finger, neuropathy bilateral lower extremity/feet, bilateral eye diabetic retinopathy/poor vision/multiple injections, ESRD with hemodialysis T//SAT from 6:15 to 11:00, anemia, "mini strokes" x2, AVANI without 5CPap use, occasional low back pain/disc disease, gout, hypothyroid Last Myocardial Infarction Date:: 04/19/23 History of Any Multi-Drug Resistant Organisms: MRSA Date of last positivie culture/infection: 12/10/21 MDRO Source:: Finger-Right 5th Past Surgical History: Adenoidectomy, Bariatric Surgery, Cholecystectomy, Heart Catheterization, Heart Catheterization With Stent, Orthopedic Surgery, Tonsillectomy Additional Past Surgical History / Comment(s): 10/22/20 PCI with stents x2, lap banding, FX of right ankle repair pins / plate, fistual lt arm jul 2018, lt shoulder sx (d/t separation), colonoscopies, bilateral cataract removals/lens implants. LIF surgery 08/11/21 R LEG stacey placed January 2023 04/19/23 3 stents Past Anesthesia/Blood Transfusion Reactions: Motion Sickness Additional Past Anesthesia/Blood Transfusion Reaction / Comment(s): CLAUSTERPHOBIA Date of Last Stent Placement:: 04/19/23 Past Psychological History: Anxiety Additional Psychological History / Comment(s): Pt resides with his spouse. He no longer drives d/t vision loss. His spouse drives and organizes his medications for him. He has a walker and uses a wheelchair if going distances (dialysis days). Smoking Status: Former smoker Past Alcohol Use History: None Reported Additional Past Alcohol Use History / Comment(s): Patient was a smoker of 2-3 packs per day for 35 years and quit in 2006. Past Drug Use History: None Reported - Past Family History Mother History Unknown: Yes Family Medical History: Coronary Artery Disease (CAD), Myocardial Infarction (NE) Additional Family Medical History / Comment(s): Mother at age 58 from multiple sclerosis Father Family Medical History: CVA/TIA, Myocardial Infarction (NE) Additional Family Medical History / Comment(s): Father had history of NE and CVA followed by a second NE and CVA and at age 65. Brother(s) Additional Family Medical History / Comment(s): . Medications and Allergies Home Medications Medication Instructions Recorded Confirmed Type Levothyroxine Sodium 100 mcg PO DAILY 07/06/17 11/23/23 History Torsemide [Demadex] 40 mg PO DAILY 09/10/19 11/23/23 History HYDROcodone/APAP 10-325MG [[place] 1 tab PO 5XD PRN 11/24/20 11/23/23 History 10-325] Insulin Regular, Human [NovoLIN R 8 - 20 unit SQ ACHS PRN 11/24/20 11/23/23 History Flexpen] FLUoxetine HCL [PROzac] 40 mg PO DAILY 30 Days #30 cap 10/16/22 11/23/23 Rx Apixaban [Eliquis] 2.5 mg PO BID 02/16/23 11/23/23 History carvediloL [Coreg] 6.25 mg PO TID #60 tab 04/25/23 11/23/23 Rx Atorvastatin [Lipitor] 40 mg PO HS 07/16/23 11/23/23 History Calcium Acetate [PhosLo] 667 mg PO AC-TID 07/16/23 11/23/23 History Calcium Acetate [PhosLo] 667 mg PO DAILY PRN 07/16/23 11/23/23 History Clopidogrel [Plavix] 75 mg PO DAILY 07/16/23 11/23/23 History Insulin Regular, Human [NovoLIN R See Protocol SQ ACHS PRN 07/16/23 11/23/23 History Flexpen] Amitriptyline HCl [Elavil] 25 mg PO HS PRN 11/23/23 11/23/23 History Folic Acid/Vit B Complex and C 0.8 mg PO DAILY 11/23/23 11/23/23 History [Bryanna-Olimpia Tablet] Insulin Detemir [Levemir Flexpen] 25 - 30 units SQ HS 11/23/23 11/23/23 History LORazepam 1 mg PO BID PRN 11/23/23 11/23/23 History Midodrine HCl [ProAmatine] 10 mg PO AC-TID PRN 11/23/23 11/23/23 History Allergies Allergy/AdvReac Type Severity Reaction Status Date / Time No Known Allergies Allergy Verified 11/23/23 11:48 Physical Exam Vitals: Vital Signs Temp Pulse Pulse Resp BP BP Pulse Ox 11/24/23 08:23 98.2 F 75 18 100/63 99 11/24/23 04:00 53 L 16 102/51 92 L 11/24/23 00:00 97 16 115/73 98 11/23/23 20:00 98.0 F 79 16 113/70 99 11/23/23 18:16 97.6 F 102 H 16 110/72 100 11/23/23 18:04 97.9 F 80 18 109/67 99 11/23/23 17:30 83/70 11/23/23 16:29 83 18 91/59 99 11/23/23 15:53 85 20 87/67 99 11/23/23 14:34 98 18 82/59 100 Intake and Output 11/23/23 11/24/23 11/24/23 22:59 06:59 14:59 Intake Total 204.333 386.679 Balance 204.333 386.679 Intake: IV 250 Invasive Line 1 10 Intake, IV Titration 86.333 136.679 Amount Heparin Sod,Pork in 0.45% 86.333 136.679 NaCl 25,000 unit In 0.45 % NaCl 1 250ml.bag @ 7. 874 UNITS/KG/HR 10 mls/hr IV .Q24H [facility] Rx#: [id number] Oral 118 Other: Voiding Method Urinal Urinal Urinal Weight 127.006 kg Results - Lab Results Most recent lab results Calcium 8.3 mg/dL (8.4-10.2) L 11/24/23 07:26 Magnesium 1.8 mg/dL (1.6-2.3) 11/23/23 11:22 11/24/23 07:26 11/24/23 07:26 Assessment and Plan Plan: Assessment: 1. End-stage renal disease maintained on hemodialysis on Tuesday schedule via left upper extremity fistula. 2. Non-ST elevated myocardial infarction status postcardiac catheterization this morning with LAD stenting. Patient has 5 prior stents. 3. Cardiogenic shock maintained on Levophed. 4. Diabetes mellitus. 5. Chronic kidney disease mineral bone disease maintained on PhosLo. 6. Anemia of chronic kidney disease. Plan: Hemodialysis today. Hep-Lock IV fluids. Check iron studies. Maintain torsemide. Makes little urine. Thank you for the consultation. I will continue to follow the patient with you during his hospital stay.
[2023-11-24 14:40] VITALS: BMI 39.0
--- NOTE | 2023-11-24 14:52 | P.CNPUL ---
History of Present Illness Consult date: 11/24/23 Requesting physician: Cara Rodriguez Reason for consult: other Chief complaint: ICU management, hypotension. History of present illness: Pulmonary consult dated November 24, 2023. This is a 63-year-old male seen in the intensive care unit, room 259, with a history of coronary disease, previous ST segment elevation myocardial infarction, congestive heart failure, diabetes, hypertension, sleep apnea syndrome, CVA, and end-stage renal disease, on Tuesday, , and Tuesday, hemodialysis. His primary care physician is Dr. Oshea. His kidney doctor is Dr. Hess. Anyway, the patient was admitted on 22 November, with chest pain, shortness of breath, and was found to have a non-ST segment elevation myocardial infarction. The patient had elevated troponins. He went to the catheterization laboratory today, and had a stent placed in his LAD. Procedure was done by Dr. Ngo. After the procedure, the patient became hypotensive, and was started on norepinephrine. He is seen today in the intensive care unit, room 259. He is currently on 3 L of oxygen. He is on norepinephrine at 5 mcg/min, and is getting saline at 10 cc an hour. In addition, the patient is undergoing hemodialysis. We were consulted for the hypotension, and ICU management. The patient's white count is 6.6, hemoglobin 10, hematocrit 30.4, and platelet count is 100,000. PTT is 34.6. Sodium 134, potassium 4.9, chlorides 92, CO2 26, BUN 62, creatinine 6.59. Glucose is 132. Calcium 8.3. The patient chest x-ray shows evidence of cardiomegaly, and possible basilar atelectasis or infiltrate. Review of Systems REVIEW OF SYSTEMS: CONSTITUTIONAL: [Negative.] NEUROLOGIC: [ Negative.] HEENT: [ Negative.] CARDIAC: Chest pain. PULMONARY: Shortness of breath. GI: [Negative.] : [Negative.] RHEUMATOLOGIC: [ Negative.] IMMUNOLOGIC: [ Negative.] ENDOCRINE: [Negative. ] DERMATOLOGIC: [Negative.] Past Medical History Past Medical History: Coronary Artery Disease (CAD), Cancer, Heart Failure, CVA/TIA, Diabetes Mellitus, Eye Disorder, Hypertension, Myocardial Infarction ([place]), Neurologic Disorder, Renal Disease, Sleep Apnea/CPAP/BIPAP, Thyroid Disorder Additional Past Medical History / Comment(s): unhealing sore left index finger, neuropathy bilateral lower extremity/feet, bilateral eye diabetic retinopath y/poor vision/multiple injections, ESRD with hemodialysis T/TH/SAT from 6:15 to 11:00, anemia, "mini strokes" x2, AVANI without 5CPap use, occasional low back pain/disc disease, gout, hypothyroid Last Myocardial Infarction Date:: 04/19/23 History of Any Multi-Drug Resistant Organisms: MRSA Date of last positivie culture/infection: 12/10/21 MDRO Source:: Finger-Right 5th Past Surgical History: Adenoidectomy, Bariatric Surgery, Cholecystectomy, Heart Catheterization, Heart Catheterization With Stent, Orthopedic Surgery, Tonsillectomy Additional Past Surgical History / Comment(s): 10/22/20 PCI with stents x2, lap banding, FX of right ankle repair pins / plate, fistual lt arm jul 2018, lt shoulder sx (d/t separation), colonoscopies, bilateral cataract removals/lens implants. LIF surgery 08/11/21 R LEG stacey placed January 2023 04/19/23 3 stents Past Anesthesia/Blood Transfusion Reactions: Motion Sickness Additional Past Anesthesia/Blood Transfusion Reaction / Comment(s): CLAUSTERPHOBIA Date of Last Stent Placement:: 04/19/23 Past Psychological History: Anxiety Additional Psychological History / Comment(s): Pt resides with his spouse. He no longer drives d/t vision loss. His spouse drives and organizes his medications for him. He has a walker and uses a wheelchair if going distances (dialysis days). Smoking Status: Former smoker Past Alcohol Use History: None Reported Additional Past Alcohol Use History / Comment(s): Patient was a smoker of 2-3 packs per day for 35 years and quit in 2006. Past Drug Use History: None Reported - Past Family History Mother History Unknown: Yes Family Medical History: Coronary Artery Disease (CAD), Myocardial Infarction (DE) Additional Family Medical History / Comment(s): Mother at age 58 from multiple sclerosis Father Family Medical History: CVA/TIA, Myocardial Infarction (DE) Additional Family Medical History / Comment(s): Father had history of [place] and CVA followed by a second DE and CVA and at age 65. Brother(s) Additional Family Medical History / Comment(s): . Medications and Allergies Home Medications Medication Instructions Recorded Confirmed Type Levothyroxine Sodium 100 mcg PO DAILY 07/06/17 11/23/23 History Torsemide [Demadex] 40 mg PO DAILY 09/10/19 11/23/23 History HYDROcodone/APAP 10-325MG [[place] 1 tab PO 5XD PRN 11/24/20 11/23/23 History 10-325] Insulin Regular, Human [NovoLIN R 8 - 20 unit SQ ACHS PRN 11/24/20 11/23/23 History Flexpen] FLUoxetine HCL [PROzac] 40 mg PO DAILY 30 Days #30 cap 10/16/22 11/23/23 Rx Apixaban [Eliquis] 2.5 mg PO BID 02/16/23 11/23/23 History carvediloL [Coreg] 6.25 mg PO TID #60 tab 04/25/23 11/23/23 Rx Atorvastatin [Lipitor] 40 mg PO HS 07/16/23 11/23/23 History Calcium Acetate [PhosLo] 667 mg PO AC-TID 07/16/23 11/23/23 History Calcium Acetate [PhosLo] 667 mg PO DAILY PRN 07/16/23 11/23/23 History Clopidogrel [Plavix] 75 mg PO DAILY 07/16/23 11/23/23 History Insulin Regular, Human [NovoLIN R See Protocol SQ ACHS PRN 07/16/23 11/23/23 History Flexpen] Amitriptyline HCl [Elavil] 25 mg PO HS PRN 11/23/23 11/23/23 History Folic Acid/Vit B Complex and C 0.8 mg PO DAILY 11/23/23 11/23/23 History [Bryanna-Olimpia Tablet] Insulin Detemir [Levemir Flexpen] 25 - 30 units SQ HS 11/23/23 11/23/23 History LORazepam 1 mg PO BID PRN 11/23/23 11/23/23 History Midodrine HCl [ProAmatine] 10 mg PO AC-TID PRN 11/23/23 11/23/23 History Allergies Allergy/AdvReac Type Severity Reaction Status Date / Time No Known Allergies Allergy Verified 11/23/23 11:48 Physical Exam Osteopathic Statement: *. No significant issues noted on an osteopathic structu ral exam other than those noted in the History and Physical/Consult. Vitals: Vital Signs Temp Pulse Pulse Resp BP BP Pulse Ox 11/24/23 08:23 98.2 F 75 18 100/63 99 11/24/23 04:00 53 L 16 102/51 92 L 11/24/23 00:00 97 16 115/73 98 11/23/23 20:00 98.0 F 79 16 113/70 99 11/23/23 18:16 97.6 F 102 H 16 110/72 100 11/23/23 18:04 97.9 F 80 18 109/67 99 11/23/23 17:30 83/70 11/23/23 16:29 83 18 91/59 99 11/23/23 15:53 85 20 87/67 99 11/23/23 14:34 98 18 82/59 100 Intake and Output 11/23/23 11/24/23 11/24/23 22:59 06:59 14:59 Intake Total 204.333 386.679 Balance 204.333 386.679 Intake: IV 250 Invasive Line 1 10 Intake, IV Titration 86.333 136.679 Amount Heparin Sod,Pork in 0.45% 86.333 136.679 NaCl 25,000 unit In 0.45 % NaCl 1 250ml.bag @ 7. 874 UNITS/KG/HR 10 mls/hr IV .Q24H [facility] Rx#: [id number] Oral 118 Other: Voiding Method Urinal Urinal Urinal Weight 127.006 kg 127.006 kg No acute distress, oriented 3. Currently, the patient is on oxygen, at 3 L. There is no conversational dyspnea. HEENT examination is grossly unremarkable. Mucous membranes are moist. No oral lesions. Neck supple. Full range of motion. No adenopathy thyromegaly or neck vein distention. Cardiovascular examination reveals regular rhythm rate. S1-S2 normal. No S3 or S4. No discernible murmur noted. Heart rate 81 bpm. Lungs reveal clear breath sounds. Breath sounds are equal bilaterally. No adventitious lung sounds including wheezes rhonchi or crackles. Saturations are 100%. Abdomen soft bowel sounds are heard. No masses or tenderness. Extremities are intact. No cyanosis clubbing or edema. The patient has mul tiple amputated digits, on both hands. Skin is without rash or lesion. Neurologic examination is brief but nonfocal. Results - Laboratory Findings CBC and BMP: 11/24/23 07:26 11/24/23 07:26 PT/INR, D-dimer PT 12.1 sec (10.0-12.5) 11/24/23 07:26 INR 1.1 (<1.2) 11/24/23 07:26 Abnormal lab findings: Abnormal Labs 11/23/23 11/23/23 11/23/23 11:22 11:22 11:22 RBC 3.06 L Hgb 10.4 L Hct 30.5 L MCV RDW 15.9 H Plt Count 108 L Lymphocytes # 0.7 L INR 1.2 H APTT Sodium 134 L Chloride 93 L BUN 45 H Creatinine 5.15 H Glucose 105 H POC Glucose (mg/dL) Hemoglobin A1c Calcium Troponin I 11/23/23 11/23/23 11/23/23 11:22 14:51 14:51 RBC Hgb Hct MCV RDW Plt Count Lymphocytes # INR APTT Sodium Chloride BUN Creatinine Glucose POC Glucose (mg/dL) Hemoglobin A1c 6.7 H Calcium Troponin I 2.990 H* 3.170 H* 11/23/23 11/23/23 11/23/23 17:08 17:53 17:53 RBC Hgb Hct MCV RDW Plt Count Lymphocytes # INR APTT 32.9 H Sodium Chloride BUN Creatinine Glucose POC Glucose (mg/dL) 130 H Hemoglobin A1c Calcium Troponin I 3.810 H* 11/23/23 11/23/23 11/24/23 20:00 20:56 06:12 RBC Hgb Hct MCV RDW Plt Count Lymphocytes # INR APTT 33.2 H Sodium Chloride BUN Creatinine Glucose POC Glucose (mg/dL) 127 H 133 H Hemoglobin A1c Calcium Troponin I 11/24/23 11/24/23 11/24/23 07:26 07:26 07:26 RBC 2.98 L Hgb 10.0 L Hct 30.4 L MCV 102.0 H RDW 16.2 H Plt Count 100 L Lymphocytes # 0.5 L INR APTT 34.6 H Sodium 134 L Chloride 92 L BUN 62 H Creatinine 6.59 H Glucose 132 H POC Glucose (mg/dL) Hemoglobin A1c Calcium 8.3 L Troponin I 11/24/23 12:13 RBC Hgb Hct MCV RDW Plt Count Lymphocytes # INR APTT Sodium Chloride BUN Creatinine Glucose POC Glucose (mg/dL) 134 H Hemoglobin A1c Calcium Troponin I - Diagnostic Findings Chest x-ray: image reviewed Assessment and Plan Assessment: Acute non-ST segment elevation myocardial infarction, S/P PCI, with stent placement in the LAD, November 24, 2023. History of coronary artery disease, with previous ST segment elevation myocardial infarction, and previous PCI with stents. History of congestive heart failure. End-stage renal disease, currently on Tuesday, , and Tuesday hemodialysis. History of hypertension. History of diabetes mellitus, with diabetic retinopathy. History of obstructive sleep apnea syndrome, not on CPAP. History of CVA. Previous multiple finger amputations, on both hands. History of hypothyroidism. History of hyperlipidemia. History of gout. Prior history of MRSA infection. Plan: Plan dated November 24, 2023. Patient is seen today in the intensive care unit, room 259. He is currently undergoing hemodialysis. The patient is on 3 L of oxygen. The patient is receiving norepinephrine at 5 mcg/min. Labs, x-rays, and medications are reviewed. We will continue to follow make recommendations along the way. The patient is overall prognosis remains guarded. Patient has a slew of medical problems including coronary disease, previous stent placements, ST segment elevation myocardial infarction, congestive heart failure, diabetes, hypertension, hyperlipidemia, hypothyroidism, sleep apnea syndrome, end-stage renal disease, currently on hemodialysis, and CVA. The patient has also had multiple finger amputations, in the past. Time with Patient: Greater than 30
[2023-11-24] MEDS: NOREPINEPHRINE 4 MG in SODIUM CHLORIDE 0.9% 250 ML IV SCH (16:51)
[2023-11-24 20:11] LABS: Glucose,Whole Blood 125 mg/dL (70-110)
[2023-11-24] MEDS: APIXABAN 2.5 MG TABLET PO SCH (20:29)
[2023-11-24 21:11] LABS: % Iron Saturation 24.19 (15.00-50.00)
[2023-11-25 05:48] LABS: Anisocytosis Slight; Basophils # (A) 0.1 k/uL (0-0.2); Basophils % (A) 1 %; Eosinophils # (A) 0.1 k/uL (0-0.7); Eosinophils % (A) 1 %; HGB 10.5 gm/dL (13.0-17.5); Lymphocytes # (A) 1.2 k/uL (1.0-4.8); Lymphocytes % (A) 17 %; MCH 33.1 pg (25.0-35.0); MCHC 32.7 g/dL (31.0-37.0); MCV 101.2 fL (80.0-100.0); Macrocytosis Slight; Mean Platelet Volume 8.5; Monocytes # (A) 0.4 k/uL (0-1.0); Monocytes % (A) 6 %; Neutrophils # (A) 5.1 k/uL (1.3-7.7); Neutrophils % (A) 72 %; Platelet Count 130 k/uL (150-450); Poikilocytosis Slight; RBC 3.16 m/uL (4.30-5.90); RDW 16.4 % (11.5-15.5); WBC 7.1 k/uL (3.8-10.6)
--- NOTE | 2023-11-25 05:53 | P.PN ---
Subjective Progress Note Date: 11/25/23 Principal diagnosis: Non-ST segment elevation myocardial infarction. Pulmonary consult dated November 24, 2023. This is a 63-year-old male seen in the intensive care unit, room 259, with a history of coronary disease, previous ST segment elevation myocardial infarction, congestive heart failure, diabetes, hypertension, sleep apnea syndrome, CVA, and end-stage renal disease, on Tuesday, , and Tuesday, hemodialysis. His primary care physician is Dr. Oshea. His kidney doctor is Dr. Hess. Anyway, the patient was admitted on 22 November, with chest pain, shortness of breath, and was found to have a non-ST segment elevation myocardial infarction. The patient had elevated troponins. He went to the catheterization laboratory today, and had a stent placed in his LAD. Procedure was done by Dr. Ngo. After the procedure, the patient became hypotensive, and was started on norepinephrine. He is seen today in the intensive care unit, room 259. He is currently on 3 L of oxygen. He is on norepinephrine at 5 mcg/min, and is getting saline at 10 cc an hour. In addition, the patient is undergoing hemodialysis. We were consulted for the hypotension, and ICU management. The patient's white count is 6.6, hemoglobin 10, hematocrit 30.4, and platelet count is 100,000. PTT is 34.6. Sodium 134, potassium 4.9, chlorides 92, CO2 26, BUN 62, creatinine 6.59. Glucose is 132. Calcium 8.3. The patient chest x-ray shows evidence of cardiomegaly, and possible basilar atelectasis or infiltrate. Progress note dated November 25, 2023. 63-year-old male seen yesterday in consultation. Please see my note above. Currently, the patient is on 2 L of oxygen by nasal cannula. The patient is getting saline at 10 cc an hour, and norepinephrine at 2.62 mcg/min. The patie nt had hemodialysis yesterday, November 23, and 2.8 L of fluid was removed. Clinically, has been stable overnight according to the nurse. On this admission, the patient did have a cardiac catheterization, and had a PCI, with stent placement to his LAD. Current laboratory includes a white count 7.1, hemoglobin 10.5, hematocrit 32, platelet count 130,000. Objective - Vital Signs Vital signs: Vital Signs Temp 98.0 F 11/24/23 16:57 Pulse 81 11/25/23 02:00 Resp 15 11/25/23 02:00 BP 101/80 11/25/23 02:00 Pulse Ox 72 L 11/25/23 02:00 FiO2 Intake & Output 11/24/23 11/24/23 11/25/23 06:59 18:59 06:59 Intake Total 204.333 880.358 317.743 Output Total 3200 0 Balance 204.333 -2319.642 317.743 Weight 127.006 kg 131.8 kg Intake: IV 250 Invasive Line 1 10 Intake, IV Titration 86.333 230.358 77.743 Amount Heparin Sod,Pork in 0.45% 86.333 136.679 NaCl 25,000 unit In 0.45 % NaCl 1 250ml.bag @ 7. 874 UNITS/KG/HR 10 mls/hr IV .Q24H [facility] Rx#: [id number] Norepinephrine 4 mg In 14.679 27.743 Sodium Chloride 0.9% 250 ml @ 0.04 MCG/KG/MIN 19. 356 mls/hr IV .Q13H8M [facility] Rx#:[id number] Sodium Chloride 0.9% 1, 30 50 000 ml In Empty Bag 1 bag @ 1 ML/KG/HR 127.006 mls /hr IV .Q7H53M [facility] Rx#: [id number] Sodium Chloride 0.9% 1, 49 000 ml In Empty Bag 1 bag @ 1 ML/KG/HR 127.006 mls /hr IV .Q7H53M [facility] Rx#: [id number] Oral 118 Tube Feeding 240 Hemodialysis 400 Output: Urine 0 0 Hemodialysis 3200 Other: Voiding Method Urinal Urinal ABP, PAP, CO, CI - Last Documented Arterial Blood Pressure 121/46 - Exam No acute distress, oriented 3. Currently, the patient is on oxygen, at 2 L. There is no conversational dyspnea. HEENT examination is grossly unremarkable. Mucous membranes are moist. No oral lesions. Neck supple. Full range of motion. No adenopathy thyromegaly or neck vein distention. Cardiovascular examination reveals regular rhythm rate. S1-S2 normal. No S3 or S4. No discernible murmur noted. Heart rate 81 bpm. Lungs reveal clear breath sounds. Breath sounds are equal bilaterally. No adventitious lung sounds including wheezes rhonchi or crackles. Saturations are 97 %. Abdomen soft bowel sounds are heard. No masses or tenderness. Extremities are intact. No cyanosis clubbing or edema. The patient has multiple amputated digits, on both hands. Skin is without rash or lesion. Neurologic examination is brief but nonfocal. - Labs CBC & Chem 7: 11/24/23 07:11/24/23 07: Labs: Abnormal Lab Results - Last 24 Hours (Table) 11/24/23 11/24/23 11/24/23 Range/Units 06:12 07: 07:26 RBC 2.98 L (4.30-5.90) m/uL Hgb 10.0 L (13.0-17.5) gm/dL Hct 30.4 L (39.0-53.0) % MCV 102.0 H (80.0-100.0) fL RDW 16.2 H (11.5-15.5) % Plt Count 100 L (150-450) k/uL Lymphocytes # 0.5 L (1.0-4.8) k/uL APTT (22.0-30.0) sec Sodium 134 L (137-145) mmol/L Chloride 92 L (98-107) mmol/L BUN 62 H (9-20) mg/dL Creatinine 6.59 H (0.66-1.25) mg/dL Glucose 132 H (74-99) mg/dL POC Glucose (mg/dL) 133 H (70-110) mg/dL Calcium 8.3 L (8.4-10.2) mg/dL Iron (65-175) UG/DL Transferrin (204.0-354.0) mg/dL Ferritin (22.0-322.0) ng/mL 11/24/23 11/24/23 11/24/23 Range/Units 07: 07: 12:13 RBC (4.30-5.90) m/uL Hgb (13.0-17.5) gm/dL Hct (39.0-53.0) % MCV (80.0-100.0) fL RDW (11.5-15.5) % Plt Count (150-450) k/uL Lymphocytes # (1.0-4.8) k/uL APTT 34.6 H (22.0-30.0) sec Sodium (137-145) mmol/L Chloride (98-107) mmol/L BUN (9-20) mg/dL Creatinine (0.66-1.25) mg/dL Glucose (74-99) mg/dL POC Glucose (mg/dL) 134 H (70-110) mg/dL Calcium (8.4-10.2) mg/dL Iron 60 L (65-175) UG/DL Transferrin 177.0 L (204.0-354.0) mg/dL Ferritin 4802.0 H (22.0-322.0) ng/mL 11/24/23 Range/Units 20:09 RBC (4.30-5.90) m/uL Hgb (13.0-17.5) gm/dL Hct (39.0-53.0) % MCV (80.0-100.0) fL RDW (11.5-15.5) % Plt Count (150-450) k/uL Lymphocytes # (1.0-4.8) k/uL APTT (22.0-30.0) sec Sodium (137-145) mmol/L Chloride (98-107) mmol/L BUN (9-20) mg/dL Creatinine (0.66-1.25) mg/dL Glucose (74-99) mg/dL POC Glucose (mg/dL) 125 H (70-110) mg/dL Calcium (8.4-10.2) mg/dL Iron (65-175) UG/DL Transferrin (204.0-354.0) mg/dL Ferritin (22.0-322.0) ng/mL Assessment and Plan Assessment: Acute non-ST segment elevation myocardial infarction, S/P PCI, with stent placement in the LAD, November 24, 2023. History of coronary artery disease, with previous ST segment elevation myocardial infarction, and previous PCI with stents. History of congestive heart failure. End-stage renal disease, currently on Tuesday, , and Tuesday hemodialysis. History of hypertension. History of diabetes mellitus, with diabetic retinopathy. History of obstructive sleep apnea syndrome, not on CPAP. History of CVA. Previous multiple finger amputations, on both hands. History of hypothyroidism. History of hyperlipidemia. History of gout. Prior history of MRSA infection. Plan: Plan dated November 24, 2023. Patient is seen today in the intensive care unit, room 259. He is currently undergoing hemodialysis. The patient is on 3 L of oxygen. The patient is receiving norepinephrine at 5 mcg/min. Labs, x-rays, and medications are review ed. We will continue to follow make recommendations along the way. The patient is overall prognosis remains guarded. Patient has a slew of medical problems including coronary disease, previous stent placements, ST segment elevation myocardial infarction, congestive heart failure, diabetes, hypertension, hyperlipidemia, hypothyroidism, sleep apnea syndrome, end-stage renal disease, currently on hemodialysis, and CVA. The patient has also had multiple finger amputations, in the past. Plan dated November 25, 2023. The patient is seen today in room 259. Currently, he is on 2 L. He is getting saline at 10 cc an hour. The patient continues on norepinephrine for blood pressure support at 2.62 mcg/min. In addition, the patient is receiving midodrine, 10 mg 3 times a day. His most recent blood pressure is 101/80. Labs, x-rays, and medications are all reviewed. The patient remains critically ill. The patient has a history of multiple medical problems including coronary disease, with previous stent placements, ST segment elevation myocardial infarction, congestive heart failure, diabetes mellitus, essential hypertension, hyperlipidemia, hypothyroidism, sleep apnea syndrome, and end-stage renal disease. In addition, the patient has a history of previous CVA, and multiple amputations of fingers. We will continue to follow make recommendations along the way. Labs, x-rays, and medications are all reviewed. Time with Patient: Greater than 30
[2023-11-25 06:19] LABS: African American GFR (CKD) 12 (>60 ml/min/1.73 sqM); Anion Gap 15 mmol/L; Blood Urea Nitrogen 49 mg/dL (9-20); Calcium 8.5 mg/dL (8.4-10.2); Carbon Dioxide 26 mmol/L (22-30); Chloride 93 mmol/L (98-107); Glucose 121 mg/dL (74-99); Non-African American GFR(CKD) 10 (>60 ml/min/1.73 sqM); Potassium 4.4 mmol/L (3.5-5.1); Sodium 134 mmol/L (137-145)
[2023-11-25 06:28] LABS: Glucose,Whole Blood 121 mg/dL (70-110)
--- NOTE | 2023-11-25 07:23 | P.PN ---
Subjective Progress Note Date: 11/25/23 PROGRESS NOTE The patient is a 63-year-old male with a known history of CAD, severe cardiomyopathy, diabetes, end-stage renal disease on hemodialysis who presented with non-STEMI. Underwent cardiac catheterization yesterday and was found to have subtotally occluded mid LAD and underwent stenting of that vessel. He is feeling much better today, has no further chest discomfort. He underwent dialysis yesterday. He denies any dizziness, palpitations or syncope. He is on low-dose norepinephrine. He has no nausea or vomiting. Medications: Aspirin, Plavix 75 mg daily, insulin, midodrine, Lipitor 40 mg daily, Synthroid PHYSICAL EXAMINATION: Blood pressure 103/50 heart rate 80 LUNGS: Clear to auscultation HEART: Regular rate and rhythm, S1, S2. No S3. Systolic ejection murmur ABDOMEN: Soft, nontender, no organomegaly EXTREMETIES: Trace to 1+ edema, right groin no hematoma. Evidence of amputation of digits noted LAB: Hemoglobin 10.5, BUN 49, creatinine 5.5, potassium 4.4. IMPRESSION: 1. Status post stenting of the LAD in the setting of non-STEMI 2. History of severe ischemic cardiomyopathy 3. End-stage renal disease on hemodialysis 4. Diabetes 5. Hyperlipidemia 6. Low blood pressure PLAN: 1. Stop norepinephrine 2. Resume Eliquis 3. Increase physical activity and if stable transfer to telemetry 4. If no further symptoms probable discharge home tomorrow Objective - Vital Signs Vital signs: Vital Signs Temp 98.4 F 11/25/23 06:00 Pulse 80 11/25/23 06:00 Resp 18 11/25/23 06:00 BP 103/53 11/25/23 06:00 Pulse Ox 100 11/25/23 06:00 FiO2 Intake & Output 11/24/23 11/25/23 11/25/23 18:59 06:59 18:59 Intake Total 880.358 317.743 Output Total 3200 0 Balance -2319.642 317.743 Weight 127.006 kg 131.8 kg Intake: IV 250 Invasive Line 1 10 Intake, IV Titration 230.358 77.743 Amount Heparin Sod,Pork in 0.45% 136.679 NaCl 25,000 unit In 0.45 % NaCl 1 250ml.bag @ 7. 874 UNITS/KG/HR 10 mls/hr IV .Q24H [facility] Rx#: [id number] Norepinephrine 4 mg In 14.679 27.743 Sodium Chloride 0.9% 250 ml @ 0.04 MCG/KG/MIN 19. 356 mls/hr IV .Q13H8M [facility] Rx#:[id number] Sodium Chloride 0.9% 1, 30 50 000 ml In Empty Bag 1 bag @ 1 ML/KG/HR 127.006 mls /hr IV .Q7H53M [facility] Rx#: [id number] Sodium Chloride 0.9% 1, 49 000 ml In Empty Bag 1 bag @ 1 ML/KG/HR 127.006 mls /hr IV .Q7H53M [facility] Rx#: [id number] Tube Feeding 240 Hemodialysis 400 Output: Urine 0 0 Hemodialysis 3200 Other: Voiding Method Urinal ABP, PAP, CO, CI - Last Documented Arterial Blood Pressure 121/46 - Labs CBC & Chem 7: 11/25/23 05:35 11/25/23 05:35 Labs: Abnormal Lab Results - Last 24 Hours (Table) 11/24/23 11/24/23 11/24/23 Range/Units 07:26 07:26 07:26 RBC 2.98 L (4.30-5.90) m/uL Hgb 10.0 L (13.0-17.5) gm/dL Hct 30.4 L (39.0-53.0) % MCV 102.0 H (80.0-100.0) fL RDW 16.2 H (11.5-15.5) % Plt Count 100 L (150-450) k/uL Lymphocytes # 0.5 L (1.0-4.8) k/uL APTT 34.6 H (22.0-30.0) sec Sodium 134 L (137-145) mmol/L Chloride 92 L (98-107) mmol/L BUN 62 H (9-20) mg/dL Creatinine 6.59 H (0.66-1.25) mg/dL Glucose 132 H (74-99) mg/dL POC Glucose (mg/dL) (70-110) mg/dL Calcium 8.3 L (8.4-10.2) mg/dL Iron (65-175) UG/DL Transferrin (204.0-354.0) mg/dL Ferritin (22.0-322.0) ng/mL 11/24/23 11/24/23 11/24/23 Range/Units 07:26 12:13 20:09 RBC (4.30-5.90) m/uL Hgb (13.0-17.5) gm/dL Hct (39.0-53.0) % MCV (80.0-100.0) fL RDW (11.5-15.5) % Plt Count (150-450) k/uL Lymphocytes # (1.0-4.8) k/uL APTT (22.0-30.0) sec Sodium (137-145) mmol/L Chloride (98-107) mmol/L BUN (9-20) mg/dL Creatinine (0.66-1.25) mg/dL Glucose (74-99) mg/dL POC Glucose (mg/dL) 134 H 125 H (70-110) mg/dL Calcium (8.4-10.2) mg/dL Iron 60 L (65-175) UG/DL Transferrin 177.0 L (204.0-354.0) mg/dL Ferritin 4802.0 H (22.0-322.0) ng/mL 11/25/23 11/25/23 11/25/23 Range/Units 05:35 05:35 06:26 RBC 3.16 L (4.30-5.90) m/uL Hgb 10.5 L (13.0-17.5) gm/dL Hct 32.0 L (39.0-53.0) % MCV 101.2 H (80.0-100.0) fL RDW 16.4 H (11.5-15.5) % Plt Count 130 L (150-450) k/uL Lymphocytes # (1.0-4.8) k/uL APTT (22.0-30.0) sec Sodium 134 L (137-145) mmol/L Chloride 93 L (98-107) mmol/L BUN 49 H (9-20) mg/dL Creatinine 5.57 H (0.66-1.25) mg/dL Glucose 121 H (74-99) mg/dL POC Glucose (mg/dL) 121 H (70-110) mg/dL Calcium (8.4-10.2) mg/dL Iron (65-175) UG/DL Transferrin (204.0-354.0) mg/dL Ferritin (22.0-322.0) ng/mL
[2023-11-25] MEDS: ASPIRIN 81 MG PO SCH (08:04)
--- NOTE | 2023-11-25 09:40 | P.PN ---
Subjective Patient is seen in follow-up for end-stage renal disease. He is maintained on hemodialysis on Tuesday schedule. Tolerated 2.8 L ultrafiltration yesterday. On low-dose Levophed. No chest pain or shortness of breath. Vital signs are stable. On low-dose Levophed. General: No acute distress. HEENT: Head exam is unremarkable. LUNGS: No audible rhonchi or wheezes. HEART: Rate and Rhythm are regular. ABDOMEN: Ab obese, nontender. EXTREMITITES: Trace edema. Objective - Vital Signs Vital signs: Vital Signs Temp 97.9 F 11/25/23 08:00 Pulse 73 11/25/23 09:00 Resp 16 11/25/23 09:00 BP 95/54 11/25/23 09:00 Pulse Ox 100 11/25/23 09:00 FiO2 Intake & Output 11/24/23 11/25/23 11/25/23 18:59 06:59 18:59 Intake Total 880.358 338.067 200 Output Total 3200 0 0 Balance -2319.642 338.067 200 Weight 127.006 kg 131.8 kg Intake: IV 250 Invasive Line 1 10 Intake, IV Titration 230.358 98.067 0 Amount Heparin Sod,Pork in 0.45% 136.679 NaCl 25,000 unit In 0.45 % NaCl 1 250ml.bag @ 7. 874 UNITS/KG/HR 10 mls/hr IV .Q24H [facility] Rx#: [id number] Norepinephrine 4 mg In 14.679 48.067 0 Sodium Chloride 0.9% 250 ml @ 0.04 MCG/KG/MIN 19. 356 mls/hr IV .Q13H8M [facility] Rx#:[id number] Sodium Chloride 0.9% 1, 30 50 000 ml In Empty Bag 1 bag @ 1 ML/KG/HR 127.006 mls /hr IV .Q7H53M [facility] Rx#: [id number] Sodium Chloride 0.9% 1, 49 000 ml In Empty Bag 1 bag @ 1 ML/KG/HR 127.006 mls /hr IV .Q7H53M [facility] Rx#: [id number] Oral 200 Tube Feeding 240 Hemodialysis 400 Output: Urine 0 0 0 Hemodialysis 3200 Other: Voiding Method Urinal Urinal ABP, PAP, CO, CI - Last Documented Arterial Blood Pressure 121/46 - Labs CBC & Chem 7: 11/25/23 05:35 11/25/23 05:35 Labs: Abnormal Lab Results - Last 24 Hours (Table) 11/24/23 11/24/23 11/24/23 Range/Units 07:26 12:13 20:09 RBC (4.30-5.90) m/uL Hgb (13.0-17.5) gm/dL Hct (39.0-53.0) % MCV (80.0-100.0) fL RDW (11.5-15.5) % Plt Count (150-450) k/uL Sodium (137-145) mmol/L Chloride (98-107) mmol/L BUN (9-20) mg/dL Creatinine (0.66-1.25) mg/dL Glucose (74-99) mg/dL POC Glucose (mg/dL) 134 H 125 H (70-110) mg/dL Iron 60 L (65-175) UG/DL Transferrin 177.0 L (204.0-354.0) mg/dL Ferritin 4802.0 H (22.0-322.0) ng/mL 11/25/23 11/25/23 11/25/23 Range/Units 05:35 05:35 06:26 RBC 3.16 L (4.30-5.90) m/uL Hgb 10.5 L (13.0-17.5) gm/dL Hct 32.0 L (39.0-53.0) % MCV 101.2 H (80.0-100.0) fL RDW 16.4 H (11.5-15.5) % Plt Count 130 L (150-450) k/uL Sodium 134 L (137-145) mmol/L Chloride 93 L (98-107) mmol/L BUN 49 H (9-20) mg/dL Creatinine 5.57 H (0.66-1.25) mg/dL Glucose 121 H (74-99) mg/dL POC Glucose (mg/dL) 121 H (70-110) mg/dL Iron (65-175) UG/DL Transferrin (204.0-354.0) mg/dL Ferritin (22.0-322.0) ng/mL Assessment and Plan Plan: Assessment: 1. End-stage renal disease maintained on hemodialysis on Tuesday schedule via left upper extremity fistula. 2. Non-ST elevated myocardial infarction status postcardiac catheterization November 24, 2023 with LAD stenting. Patient has 5 prior stents. 3. Cardiogenic shock maintained on Levophed. 4. Diabetes mellitus. 5. Chronic kidney disease mineral bone disease maintained on PhosLo. 6. Anemia of chronic kidney disease. Iron replete. Plan: Hemodialysis tomorrow. Add Aranesp. Add scheduled midodrine 10 mg 3 times daily. Hold for systolic blood pressure greater than 110. Wean Levophed.
[2023-11-25 11:43] LABS: Glucose,Whole Blood 159 mg/dL (70-110)
[2023-11-25] MEDS: DARBEPOETIN ALFA 40 MCG/0.4 ML SYRINGE SQ SCH (12:44)
[2023-11-25] MEDS: MIDODRINE 5 MG TAB PO SCH (12:44)
--- NOTE | 2023-11-25 12:51 | P.PN ---
Subjective Progress Note Date: 11/25/23 patient is a 63-year-old gentleman past medical history significant for CAD, severe cardiomyopathy, status post stenting by Dr. Jimenez most recently in April 2023 of the LAD, history of paroxysmal atrial fibrillation, end-stage renal disease was brought to the ER for chest pain. Patient stated that he was all right this morning when after waking up he was sitting in his chair when he suddenly started experiencing left-sided chest pain. Left-sided chest pain was dull in nature, constant, nonradiating, no aggravating or relieving factor associated chest pain. Denies any shortness of breath. There was no complaint of any orthopnea or PND. There was no complaint of nausea, vomit abdominal p ain. There was no complaint of fever or chills. Because of this chest pain, patient came to the ER Initial lab work done in the ER showed WBC 6, hemoglobin 10.4, platelet count 108, sodium 134, potassium 4.3, BUN 45, creatinine 5.15 glucose 105 AST 27, ALT 26, troponin 2.990, proBNP 98119 EKG done in the ER showed heart rate of 85, no ST segment elevation or depression seen, no T-wave inversions seen. Chest x-ray done in the ER showed mild to moderate cardiomegaly, lateral view shows patchy posterior basilar atelectasis versus developing infiltrate, clinically correlate Patient admitted to internal medicine service 11/23. Patient seen and examined. Currently n.p.o., going for cardiac cath today 11/24. Patient seen and examined.Underwent cardiac catheterization yesterday and was found to have subtotally occluded mid LAD and underwent stenting of that vessel. Patient is currently in ICU, patient is off the pressors. Labs done this morning showed WBC 7.1, hemoglobin 10.5, sodium 134, potassium 4.4, BUN 49, creatinine 5.57. REVIEW OF SYSTEMS: CONSTITUTIONAL: No fever, no malaise,. CARDIOVASCULAR: No chest pain, no palpitations, no syncope. PULMONARY: No shortness of breath, no cough, GASTROINTESTINAL: No diarrhea, no nausea, no vomiting, no abdominal pain. NEUROLOGICAL: No headaches, no weakness, PHYSICAL EXAMINATION: GENERAL: The patient is alert and oriented x3, not in any acute distress. Well developed, well nourished. HEENT: Pupils are round and equally reacting to light. EOMI. No scleral icterus. No conjunctival pallor. Normocephalic, atraumatic. No pharyngeal erythema. No thyromegaly. CARDIOVASCULAR: S1 and S2 present. No murmurs, rubs, or gallops. PULMONARY: Chest is clear to auscultation, no wheezing or crackles. ABDOMEN: Soft, nontender, nondistended, normoactive bowel sounds. No palpable organomegaly. MUSCULOSKELETAL: No joint swelling or deformity. Amputation of fingers of right and left hand seen EXTREMITIES: No cyanosis, clubbing,. 1+ pitting edema of lower extremities NEUROLOGICAL: Gross neurological examination did not reveal any focal deficits. SKIN: No rashes. Assessment and plan Non-ST elevation CO History of severe ischemic cardiomyopathy Status post LAD stenting in April Paroxysmal atrial fibrillation Status post digit amputation Type 2 diabetes mellitus Hypertension Sleep apnea Hypothyroidism Hyperlipidemia History of pericardial effusion with tamponade status post pericardial window in 2020 Prostate cancer status postradiation Monitor vital signs Monitor CBC Monitor CMP Continue telemetry monitoring Trend troponins. Status post stenting of the LAD in the setting of non-STEMI Monitor blood sugar level, continue sliding scale insulin. Wean off Levophed Continue Synthroid Continue Plavix and Coreg Resume Eliquis Cardiology following Nephrology following Critical care following Possible transfer out of ICU today Labs and medication were reviewed.. Continue same treatment. Continue with symptomatic treatment. Resume home medication. Monitor labs and vitals. DVT and GI prophylaxis. Further recommendations as per clinical course of the patient Dictation was produced using [employer] dictation software. please excuse any grammatical, word or spelling errors. Objective - Vital Signs Vital signs: Vital Signs Temp 97.9 F 11/25/23 08:00 Pulse 73 11/25/23 09:00 Resp 16 11/25/23 09:00 BP 95/54 11/25/23 09:00 Pulse Ox 100 11/25/23 09:00 FiO2 Intake & Output 11/24/23 11/25/23 11/25/23 18:59 06:59 18:59 Intake Total 880.358 338.067 200 Output Total 3200 0 0 Balance -2319.642 338.067 200 Weight 127.006 kg 131.8 kg Intake: IV 250 Invasive Line 1 10 Intake, IV Titration 230.358 98.067 0 Amount Heparin Sod,Pork in 0.45% 136.679 NaCl 25,000 unit In 0.45 % NaCl 1 250ml.bag @ 7. 874 UNITS/KG/HR 10 mls/hr IV .Q24H [facility] Rx#: [id number] Norepinephrine 4 mg In 14.679 48.067 0 Sodium Chloride 0.9% 250 ml @ 0.04 MCG/KG/MIN 19. 356 mls/hr IV .Q13H8M [facility] Rx#:[id number] Sodium Chloride 0.9% 1, 30 50 000 ml In Empty Bag 1 bag @ 1 ML/KG/HR 127.006 mls /hr IV .Q7H53M [facility] Rx#: [id number] Sodium Chloride 0.9% 1, 49 000 ml In Empty Bag 1 bag @ 1 ML/KG/HR 127.006 mls /hr IV .Q7H53M [facility] Rx#: [id number] Oral 200 Tube Feeding 240 Hemodialysis 400 Output: Urine 0 0 0 Hemodialysis 3200 Other: Voiding Method Urinal Urinal ABP, PAP, CO, CI - Last Documented Arterial Blood Pressure 121/46 - Labs CBC & Chem 7: 11/25/23 05:35 11/25/23 05:35 Labs: Abnormal Lab Results - Last 24 Hours (Table) 11/24/23 11/24/23 11/24/23 Range/Units 07:26 12:13 20:09 RBC (4.30-5.90) m/uL Hgb (13.0-17.5) gm/dL Hct (39.0-53.0) % MCV (80.0-100.0) fL RDW (11.5-15.5) % Plt Count (150-450) k/uL Sodium (137-145) mmol/L Chloride (98-107) mmol/L BUN (9-20) mg/dL Creatinine (0.66-1.25) mg/dL Glucose (74-99) mg/dL POC Glucose (mg/dL) 134 H 125 H (70-110) mg/dL Iron 60 L (65-175) UG/DL Transferrin 177.0 L (204.0-354.0) mg/dL Ferritin 4802.0 H (22.0-322.0) ng/mL 11/25/23 11/25/23 11/25/23 Range/Units 05:35 05:35 06:26 RBC 3.16 L (4.30-5.90) m/uL Hgb 10.5 L (13.0-17.5) gm/dL Hct 32.0 L (39.0-53.0) % MCV 101.2 H (80.0-100.0) fL RDW 16.4 H (11.5-15.5) % Plt Count 130 L (150-450) k/uL Sodium 134 L (137-145) mmol/L Chloride 93 L (98-107) mmol/L BUN 49 H (9-20) mg/dL Creatinine 5.57 H (0.66-1.25) mg/dL Glucose 121 H (74-99) mg/dL POC Glucose (mg/dL) 121 H (70-110) mg/dL Iron (65-175) UG/DL Transferrin (204.0-354.0) mg/dL Ferritin (22.0-322.0) ng/mL
[2023-11-25 16:14] LABS: Glucose,Whole Blood 145 mg/dL (70-110)
[2023-11-25 20:04] LABS: Glucose,Whole Blood 209 mg/dL (70-110)
[2023-11-25] MEDS: AMITRIPTYLINE HCL 25 MG TAB PO PRN (21:23)
[2023-11-26 05:02] LABS: Anisocytosis Slight; HGB 9.4 gm/dL (13.0-17.5); MCH 33.9 pg (25.0-35.0); MCHC 33.5 g/dL (31.0-37.0); MCV 101.2 fL (80.0-100.0); Macrocytosis Slight; Mean Platelet Volume 8.8; Platelet Count 105 k/uL (150-450); Poikilocytosis Slight; RBC 2.77 m/uL (4.30-5.90); RDW 17.2 % (11.5-15.5); WBC 6.2 k/uL (3.8-10.6)
[2023-11-26 05:16] LABS: African American GFR (CKD) 9 (>60 ml/min/1.73 sqM); Anion Gap 15 mmol/L; Blood Urea Nitrogen 67 mg/dL (9-20); Calcium 8.3 mg/dL (8.4-10.2); Carbon Dioxide 24 mmol/L (22-30); Chloride 93 mmol/L (98-107); Glucose 103 mg/dL (74-99); Magnesium 1.9 mg/dL (1.6-2.3); Non-African American GFR(CKD) 7 (>60 ml/min/1.73 sqM); Potassium 4.2 mmol/L (3.5-5.1); Sodium 132 mmol/L (137-145)
[2023-11-26 07:01] LABS: Glucose,Whole Blood 117 mg/dL (70-110)
[2023-11-26 08:44] VITALS: TEMP 97.4
[2023-11-26] MEDS: MIDODRINE 5 MG TAB PO ONE (08:50)
--- NOTE | 2023-11-26 09:03 | P.PN ---
Subjective Progress Note Date: 11/26/23 PROGRESS NOTE The patient is a 63-year-old male with a known history of CAD, severe cardiomyopathy, diabetes, end-stage renal disease on hemodialysis who presented with non-STEMI. Underwent cardiac catheterization yesterday and was found to have subtotally occluded mid LAD and underwent stenting of that vessel. He is feeling much better today, has no further chest discomfort. He underwent dialysis yesterday. He denies any dizziness, palpitations or syncope. He is on low-dose norepinephrine. He has no nausea or vomiting. November 25: The patient feels well this morning. He denies any chest discomfort, dizziness or palpitations. He denies any nausea or vomiting. He is off norepinephrine and his blood pressure is on the low side but stable. He feels much better compared to his presentation. He is undergoing dialysis today. He is back on anticoagulation Medications: Aspirin, Plavix 75 mg daily, insulin, midodrine, Lipitor 40 mg daily, Synthroid, Eliquis 2.5 mg twice a day PHYSICAL EXAMINATION: Blood pressure 104/50 heart rate 70 LUNGS: Clear to auscultation HEART: Regular rate and rhythm, S1, S2. No S3. Systolic ejection murmur ABDOMEN: Soft, nontender, no organomegaly EXTREMETIES: Trace edema, Evidence of amputation of digits noted LAB: Hemoglobin 9.4, BUN 67, creatinine 7.12, potassium 4.2 IMPRESSION: 1. Status post stenting of the LAD in the setting of non-STEMI 2. History of severe ischemic cardiomyopathy 3. End-stage renal disease on hemodialysis 4. Diabetes 5. Hyperlipidemia 6. Low blood pressure PLAN: 1. Dialysis today 2. Stable from the cardiac standpoint to be discharged home after dialysis 3. Follow-up with Dr. Jimenez next week 4. Stop aspirin in 1 week and continue on clopidogrel and Eliquis. Objective - Vital Signs Vital signs: Vital Signs Temp 97.4 F L 11/26/23 08:00 Pulse 66 11/26/23 08:00 Resp 20 11/26/23 08:00 BP 104/44 11/26/23 08:00 Pulse Ox 99 11/26/23 08:00 FiO2 Intake & Output 11/25/23 11/26/23 11/26/23 18:59 06:59 18:59 Intake Total 423.389 250 Output Total 0 0 0 Balance 423.389 250 0 Weight 131.7 kg Intake: Intake, IV Titration 23.389 Amount Norepinephrine 4 mg In 23.389 Sodium Chloride 0.9% 250 ml @ 0.04 MCG/KG/MIN 19. 356 mls/hr IV .Q13H8M [facility] Rx#:[id number] Oral 400 250 Output: Urine 0 0 0 Other: Voiding Method Urinal Urinal ABP, PAP, CO, CI - Last Documented Arterial Blood Pressure 121/46 - Labs CBC & Chem 7: 11/26/23 04:39 11/26/23 04:39 Labs: Abnormal Lab Results - Last 24 Hours (Table) 11/25/23 11/25/23 11/25/23 Range/Units 11:42 16:13 20:03 RBC (4.30-5.90) m/uL Hgb (13.0-17.5) gm/dL Hct (39.0-53.0) % MCV (80.0-100.0) fL RDW (11.5-15.5) % Plt Count (150-450) k/uL Sodium (137-145) mmol/L Chloride (98-107) mmol/L BUN (9-20) mg/dL Creatinine (0.66-1.25) mg/dL Glucose (74-99) mg/dL POC Glucose (mg/dL) 159 H 145 H 209 H (70-110) mg/dL Calcium (8.4-10.2) mg/dL 11/26/23 11/26/23 11/26/23 Range/Units 04:39 04:39 06:58 RBC 2.77 L (4.30-5.90) m/uL Hgb 9.4 L (13.0-17.5) gm/dL Hct 28.0 L (39.0-53.0) % MCV 101.2 H (80.0-100.0) fL RDW 17.2 H (11.5-15.5) % Plt Count 105 L (150-450) k/uL Sodium 132 L (137-145) mmol/L Chloride 93 L (98-107) mmol/L BUN 67 H (9-20) mg/dL Creatinine 7.12 H* (0.66-1.25) mg/dL Glucose 103 H (74-99) mg/dL POC Glucose (mg/dL) 117 H (70-110) mg/dL Calcium 8.3 L (8.4-10.2) mg/dL
[2023-11-26 09:19] VITALS: BP 91/50; PULSE 71; RESP 14
--- NOTE | 2023-11-26 10:50 | P.PN ---
Subjective Progress Note Date: 11/26/23 Principal diagnosis: Non-ST segment elevation myocardial infarction. Pulmonary consult dated November 24, 2023. This is a 63-year-old male seen in the intensive care unit, room 259, with a history of coronary disease, previous ST segment elevation myocardial infarction, congestive heart failure, diabetes, hypertension, sleep apnea syndrome, CVA, and end-stage renal disease, on Tuesday, , and Tuesday, hemodialysis. His primary care physician is Dr. Oshea. His kidney doctor is Dr. Hess. Anyway, the patient was admitted on 22 November, with chest pain, shortness of breath, and was found to have a non-ST segment elevation myocardial infarction. The patient had elevated troponins. He went to the catheterization laboratory today, and had a stent placed in his LAD. Procedure was done by Dr. Ngo. After the procedure, the patient became hypotensive, and was started on norepinephrine. He is seen today in the intensive care unit, room 259. He is currently on 3 L of oxygen. He is on norepinephrine at 5 mcg/min, and is getting saline at 10 cc an hour. In addition, the patient is undergoing hemodialysis. We were consulted for the hypotension, and ICU management. The patient's white count is 6.6, hemoglobin 10, hematocrit 30.4, and platelet count is 100,000. PTT is 34.6. Sodium 134, potassium 4.9, chlorides 92, CO2 26, BUN 62, creatinine 6.59. Glucose is 132. Calcium 8.3. The patient chest x-ray shows evidence of cardiomegaly, and possible basilar atelectasis or infiltrate. Progress note dated November 25, 2023. 63-year-old male seen yesterday in consultation. Please see my note above. Currently, the patient is on 2 L of oxygen by nasal cannula. The patient is getting saline at 10 cc an hour, and norepinephrine at 2.62 mcg/min. The patie nt had hemodialysis yesterday, November 23, and 2.8 L of fluid was removed. Clinically, has been stable overnight according to the nurse. On this admission, the patient did have a cardiac catheterization, and had a PCI, with stent placement to his LAD. Current laboratory includes a white count 7.1, hemoglobin 10.5, hematocrit 32, platelet count 130,000. Progress note dated November 26, 2023. 63-year-old male, seen today in room 259, intensive care unit. The patient is currently undergoing hemodialysis, with a goal of removal of about 2 to 2.5 L of fluid. The patient appears to be relatively stable. He is on room air. He is not receiving any IV fluids. Labs from today include a white count 6.2, hemoglobin 9.4, hematocrit 28, and a platelet count of 105,000. Sodium 132, potassium 4.2, chloride 93, CO2 24, anion gap 15, BUN 67, creatinine 7.12. Glucose is 117. Calcium 8.3. Magnesium 1.9. Microbiologic studies are negative. No chest x-ray today. Objective - Vital Signs Vital signs: Vital Signs Temp 97.4 F L 11/26/23 08:00 Pulse 71 11/26/23 09:00 Resp 14 11/26/23 09:00 BP 91/50 11/26/23 09:00 Pulse Ox 97 11/26/23 09:00 FiO2 Intake & Output 11/25/23 11/26/23 11/26/23 18:59 06:59 18:59 Intake Total 423.389 250 Output Total 0 0 0 Balance 423.389 250 0 Weight 131.7 kg Intake: Intake, IV Titration 23.389 Amount Norepinephrine 4 mg In 23.389 Sodium Chloride 0.9% 250 ml @ 0.04 MCG/KG/MIN 19. 356 mls/hr IV .Q13H8M [facility] Rx#:[id number] Oral 400 250 Output: Urine 0 0 0 Other: Voiding Method Urinal Urinal Urinal ABP, PAP, CO, CI - Last Documented Arterial Blood Pressure 121/46 - Exam No acute distress, oriented 3. Currently, the patient is on room air. There is no conversational dyspnea. HEENT examination is grossly unremarkable. Mucous membranes are moist. No oral lesions. Neck supple. Full range of motion. No adenopathy thyromegaly or neck vein distention. Cardiovascular examination reveals regular rhythm rate. S1-S2 normal. No S3 or S4. No discernible murmur noted. Heart rate 71 bpm. Lungs reveal clear breath sounds. Breath sounds are equal bilaterally. No adventitious lung sounds including wheezes rhonchi or crackles. Saturations are 97 %. Abdomen soft bowel sounds are heard. No masses or tenderness. Extremities are intact. No cyanosis clubbing or edema. The patient has multiple amputated digits, on both hands. Skin is without rash or lesion. Neurologic examination is brief but nonfocal. - Labs CBC & Chem 7: 11/26/23 04:39 11/26/23 04:39 Labs: Abnormal Lab Results - Last 24 Hours (Table) 11/25/23 11/25/23 11/25/23 Range/Units 11:42 16:13 20:03 RBC (4.30-5.90) m/uL Hgb (13.0-17.5) gm/dL Hct (39.0-53.0) % MCV (80.0-100.0) fL RDW (11.5-15.5) % Plt Count (150-450) k/uL Sodium (137-145) mmol/L Chloride (98-107) mmol/L BUN (9-20) mg/dL Creatinine (0.66-1.25) mg/dL Glucose (74-99) mg/dL POC Glucose (mg/dL) 159 H 145 H 209 H (70-110) mg/dL Calcium (8.4-10.2) mg/dL 11/26/23 11/26/23 11/26/23 Range/Units 04:39 04:39 06:58 RBC 2.77 L (4.30-5.90) m/uL Hgb 9.4 L (13.0-17.5) gm/dL Hct 28.0 L (39.0-53.0) % MCV 101.2 H (80.0-100.0) fL RDW 17.2 H (11.5-15.5) % Plt Count 105 L (150-450) k/uL Sodium 132 L (137-145) mmol/L Chloride 93 L (98-107) mmol/L BUN 67 H (9-20) mg/dL Creatinine 7.12 H* (0.66-1.25) mg/dL Glucose 103 H (74-99) mg/dL POC Glucose (mg/dL) 117 H (70-110) mg/dL Calcium 8.3 L (8.4-10.2) mg/dL Assessment and Plan Assessment: Acute non-ST segment elevation myocardial infarction, S/P PCI, with stent placement in the LAD, November 24, 2023. History of coronary artery disease, with previous ST segment elevation myocardial infarction, and previous PCI with stents. History of congestive heart failure. End-stage renal disease, currently on Tuesday, , and Tuesday hemodialysis. History of hypertension. History of diabetes mellitus, with diabetic retinopathy. History of obstructive sleep apnea syndrome, not on CPAP. History of CVA. Previous multiple finger amputations, on both hands. History of hypothyroidism. History of hyperlipidemia. History of gout. Prior history of MRSA infection. Plan: Plan dated November 24, 2023. Patient is seen today in the intensive care unit, room 259. He is currently undergoing hemodialysis. The patient is on 3 L of oxygen. The patient is receiving norepinephrine at 5 mcg/min. Labs, x-rays, and medications are reviewed. We will continue to follow make recommendations along the way. The patient is overall prognosis remains guarded. Patient has a slew of medical problems including coronary disease, previous stent placements, ST segment elevation myocardial infarction, congestive heart failure, diabetes, hypertension, hyperlipidemia, hypothyroidism, sleep apnea syndrome, end-stage renal disease, currently on hemodialysis, and CVA. The patient has also had multiple finger amputations, in the past. Plan dated November 25, 2023. The patient is seen today in room 259. Currently, he is on 2 L. He is getting saline at 10 cc an hour. The patient continues on norepinephrine for blood pressure support at 2.62 mcg/min. In addition, the patient is receiving midodrine, 10 mg 3 times a day. His most recent blood pressure is 101/80. Labs, x-rays, and medications are all reviewed. The patient remains critically ill. The patient has a history of multiple medical problems including coronary disease, with previous stent placements, ST segment elevation myocardial infarct ion, congestive heart failure, diabetes mellitus, essential hypertension, hyperlipidemia, hypothyroidism, sleep apnea syndrome, and end-stage renal disease. In addition, the patient has a history of previous CVA, and multiple amputations of fingers. We will continue to follow make recommendations along the way. Labs, x-rays, and medications are all reviewed. Plan dated November 26, 2023. The patient is seen today in room 259, intensive care unit. Currently, he is on room air. Is not receiving any IV fluids. The patient is getting his hemodialysis today. Labs, x-rays, medications are reviewed. The patient is stable. From the pulmonary standpoint, the patient could be downgraded, to the general medical floor, or even discharged. We will leave that up to the primary service. No additional recommendations at this time. Prognosis is certainly guarded. Time with Patient: Less than 30
[2023-11-26 11:31] LABS: Glucose,Whole Blood 211 mg/dL (70-110)
--- NOTE | 2023-11-26 11:45 | P.PN ---
Subjective Progress Note Date: 11/26/23 Patient is seen in follow-up for end-stage renal disease. He is maintained on hemodialysis on Tuesday schedule. HD planned for today. Off low-dose Levophed. No chest pain or shortness of breath. Seen while on HD tolerating well. Plan for discharge after HD today. Vital signs are stable. General: No acute distress. HEENT: Head exam is unremarkable. LUNGS: No audible rhonchi or wheezes. HEART: Rate and Rhythm are regular. ABDOMEN: Ab obese, nontender. EXTREMITITES: Trace edema. Objective - Vital Signs Vital signs: Vital Signs Temp 97.4 F L 11/26/23 08:00 Pulse 71 11/26/23 09:00 Resp 14 11/26/23 09:00 BP 91/50 11/26/23 09:00 Pulse Ox 97 11/26/23 09:00 FiO2 Intake & Output 11/25/23 11/26/23 11/26/23 18:59 06:59 18:59 Intake Total 423.389 250 Output Total 0 0 0 Balance 423.389 250 0 Weight 131.7 kg Intake: Intake, IV Titration 23.389 Amount Norepinephrine 4 mg In 23.389 Sodium Chloride 0.9% 250 ml @ 0.04 MCG/KG/MIN 19. 356 mls/hr IV .Q13H8M [facility] Rx#:[id number] Oral 400 250 Output: Urine 0 0 0 Other: Voiding Method Urinal Urinal Urinal ABP, PAP, CO, CI - Last Documented Arterial Blood Pressure 121/46 - Labs CBC & Chem 7: 11/26/23 04:39 11/26/23 04:39 Labs: Abnormal Lab Results - Last 24 Hours (Table) 11/25/23 11/25/23 11/25/23 Range/Units 11:42 16:13 20:03 RBC (4.30-5.90) m/uL Hgb (13.0-17.5) gm/dL Hct (39.0-53.0) % MCV (80.0-100.0) fL RDW (11.5-15.5) % Plt Count (150-450) k/uL Sodium (137-145) mmol/L Chloride (98-107) mmol/L BUN (9-20) mg/dL Creatinine (0.66-1.25) mg/dL Glucose (74-99) mg/dL POC Glucose (mg/dL) 159 H 145 H 209 H (70-110) mg/dL Calcium (8.4-10.2) mg/dL 11/26/23 11/26/23 11/26/23 Range/Units 04:39 04:39 06:58 RBC 2.77 L (4.30-5.90) m/uL Hgb 9.4 L (13.0-17.5) gm/dL Hct 28.0 L (39.0-53.0) % MCV 101.2 H (80.0-100.0) fL RDW 17.2 H (11.5-15.5) % Plt Count 105 L (150-450) k/uL Sodium 132 L (137-145) mmol/L Chloride 93 L (98-107) mmol/L BUN 67 H (9-20) mg/dL Creatinine 7.12 H* (0.66-1.25) mg/dL Glucose 103 H (74-99) mg/dL POC Glucose (mg/dL) 117 H (70-110) mg/dL Calcium 8.3 L (8.4-10.2) mg/dL Assessment and Plan Plan: Assessment: 1. End-stage renal disease maintained on hemodialysis on Tuesday schedule via left upper extremity fistula. 2. Non-ST elevated myocardial infarction status postcardiac catheterization November 24, 2023 with LAD stenting. Patient has 5 prior stents. 3. Cardiogenic shock maintained on Midodrine. 4. Diabetes mellitus. 5. Chronic kidney disease mineral bone disease maintained on PhosLo. 6. Anemia of chronic kidney disease. Iron replete. Plan: Seen while on Hemodialysis today. On Aranesp. Scheduled midodrine 10 mg 3 times daily. Hold for systolic blood pressure greater than 110. Off Levophed, extra dose 10mg midodrine given prior to HD initiation. Plan for discharge home today after HD.
--- NOTE | 2023-11-26 13:18 | P.DS ---
Providers Date of admission: 11/23/23 12:23 Expected date of discharge: 11/26/23 Attending physician: Cara Rodriguez Consults: 11/23/23 12:23 Consult Physician Urgent Consulting Provider: Micheal Cox Consult Reason/Comments: nstemi Do you want consulting provider notified?: Yes 11/23/23 12:25 Consult Physician Urgent Consulting Provider: Chacho Dove Consult Reason/Comments: esrd on hd tues,thurs,sat Do you want consulting provider notified?: Yes 11/24/23 11:56 Consult Physician Routine Consulting Provider: Micheal Cox Consult Reason/Comments: Post Interventional Patient Do you want consulting provider notified?: Already Contacted 11/24/23 12:55 Consult Physician Routine Consulting Provider: Tanner Akbar Consult Reason/Comments: Hypotension, currently on Levophed Do you want consulting provider notified?: Yes Primary care physician: Hayes [facility] Course: 63-year-old gentleman past medical history significant for CAD, severe cardiomyopathy, status post stenting by Dr. Jimenez most recently in April 2023 of the LAD, history of paroxysmal atrial fibrillation, end-stage renal disease was brought to the ER for chest pain. Patient stated that he was all right this morning when after waking up he was sitting in his chair when he suddenly started experiencing left-sided chest pain. Left-sided chest pain was dull in nature, constant, nonradiating, no aggravating or relieving factor associated chest pain. Denies any shortness of breath. There was no complaint of any orthopnea or PND. There was no complaint of nausea, vomit abdominal pain. There was no complaint of fever or chills. Because of this chest pain, patient came to the ER Initial lab work done in the ER showed WBC 6, hemoglobin 10.4, platelet count 108, sodium 134, potassium 4.3, BUN 45, creatinine 5.15 glucose 105 AST 27, ALT 26, troponin 2.990, proBNP 19350 EKG done in the ER showed heart rate of 85, no ST segment elevation or depress ion seen, no T-wave inversions seen. Chest x-ray done in the ER showed mild to moderate cardiomegaly, lateral view shows patchy posterior basilar atelectasis versus developing infiltrate, clinically correlate Patient admitted to internal medicine service 11/23. Patient seen and examined. Currently n.p.o., going for cardiac cath today 11/24. Patient seen and examined.Underwent cardiac catheterization yesterday and was found to have subtotally occluded mid LAD and underwent stenting of that vessel. Patient is currently in ICU, patient is off the pressors. Labs done this morning showed WBC 7.1, hemoglobin 10.5, sodium 134, potassium 4.4, BUN 49, creatinine 5.57. 11/25: Patient seen and evaluated bedside, patient in ICU 259, patient denies of any acute symptoms patient receiving hemodialysis. Plan to discharge patient home. Patient remains asymptomatic postdialysis PHYSICAL EXAMINATION: GENERAL: The patient is alert and oriented x3, not in any acute distress. Well developed, well nourished. HEENT: Pupils are round and equally reacting to light. EOMI. No scleral icterus. CARDIOVASCULAR: S1 and S2 present. No murmurs, rubs, or gallops. PULMONARY: Chest is clear to auscultation, no wheezing or crackles. ABDOMEN: Soft, nontender, nondistended, normoactive bowel sounds. No palpable organomegaly. MUSCULOSKELETAL: No joint swelling or deformity. Amputation of fingers of right and left hand seen EXTREMITIES: No cyanosis, clubbing,. 1+ pitting edema of lower extremities NEUROLOGICAL: Gross neurological examination did not reveal any focal deficits. SKIN: No rashes. Assessment and plan Non-ST elevation AL s/p cardiac catheterization with PCI to LAD History of severe ischemic cardiomyopathy Status post LAD stenting in April Paroxysmal atrial fibrillation Status post digit amputation Type 2 diabetes mellitus Hypertension Sleep apnea Hypothyroidism Hyperlipidemia History of pericardial effusion with tamponade status post pericardial window in 2020 Prostate cancer status postradiation * Regards to coronary artery disease and non-ST elevated AL, continue patient on aspirin, Plavix, Lipitor * Patient was discharged from medical ICU, remained stable completed hemodialysis * Regards to atrial fibrillation continue patient on Coreg and Eliquis * Regards to diabetes mellitus continue home regimen * Patient discharged home in stable condition outpatient follow-up with cardiology recommended Patient Condition at Discharge: Fair Plan - Discharge Summary Discharge Rx Participant: No New Discharge Prescriptions: New Aspirin 81 mg PO DAILY 30 Days #30 tab Continue Levothyroxine Sodium 100 mcg PO DAILY Torsemide [Demadex] 40 mg PO DAILY Insulin Regular, Human [NovoLIN R Flexpen] 8 - 20 unit SQ ACHS PRN PRN Reason: high blood sugar HYDROcodone/APAP 10-325MG [B[place]coe 10-325] 1 tab PO 5XD PRN PRN Reason: Pain FLUoxetine HCL [PROzac] 40 mg PO DAILY 30 Days #30 cap carvediloL [Coreg] 6.25 mg PO TID #60 tab Calcium Acetate [PhosLo] 667 mg PO DAILY PRN PRN Reason: SNACKS Amitriptyline HCl [Elavil] 25 mg PO HS PRN PRN Reason: nerve pain/sleep LORazepam 1 mg PO BID PRN PRN Reason: Anxiety Apixaban [Eliquis] 2.5 mg PO BID Insulin Regular, Human [NovoLIN R Flexpen] See Protocol SQ ACHS PRN PRN Reason: high blood sugar Atorvastatin [Lipitor] 40 mg PO HS Calcium Acetate [PhosLo] 667 mg PO AC-TID Folic Acid/Vit B Complex and C [Bryanna-Olimpia Tablet] 0.8 mg PO DAILY Insulin Detemir [Levemir Flexpen] 25 - 30 units SQ HS Midodrine HCl [ProAmatine] 10 mg PO AC-TID PRN PRN Reason: low blood pressure Clopidogrel [Plavix] 75 mg PO DAILY 90 Days #90 tab Discharge Medication List Levothyroxine Sodium 100 mcg PO DAILY 07/06/17 [History] Torsemide [Demadex] 40 mg PO DAILY 09/10/19 [History] HYDROcodone/APAP 10-325MG [B[place]coe 10-325] 1 tab PO 5XD PRN 11/24/20 [History] Insulin Regular, Human [NovoLIN R Flexpen] 8 - 20 unit SQ ACHS PRN 11/24/20 [History] FLUoxetine HCL [PROzac] 40 mg PO DAILY 30 Days #30 cap 10/16/22 [Rx] Apixaban [Eliquis] 2.5 mg PO BID 02/16/23 [History] carvediloL [Coreg] 6.25 mg PO TID #60 tab 04/25/23 [Rx] Atorvastatin [Lipitor] 40 mg PO HS 07/16/23 [History] Calcium Acetate [PhosLo] 667 mg PO AC-TID 07/16/23 [History] Calcium Acetate [PhosLo] 667 mg PO DAILY PRN 07/16/23 [History] Insulin Regular, Human [NovoLIN R Flexpen] See Protocol SQ ACHS PRN 07/16/23 [History] Amitriptyline HCl [Elavil] 25 mg PO HS PRN 11/23/23 [History] Folic Acid/Vit B Complex and C [Bryanna-Olimpia Tablet] 0.8 mg PO DAILY 11/23/23 [History] Insulin Detemir [Levemir Flexpen] 25 - 30 units SQ HS 11/23/23 [History] LORazepam 1 mg PO BID PRN 11/23/23 [History] Midodrine HCl [ProAmatine] 10 mg PO AC-TID PRN 11/23/23 [History] Aspirin 81 mg PO DAILY 30 Days #30 tab 11/26/23 [Rx] Clopidogrel [Plavix] 75 mg PO DAILY 90 Days #90 tab 11/26/23 [Rx] Follow up Appointment(s)/Referral(s): Vikas Jimenez DO [STAFF PHYSICIAN] - 1 Week (Patient to schedule own appointment as regularly scheduled office hours are closed.) Hayes Oshea [Primary Care Provider] - 1-2 days (Patient to schedule own appointment as regularly scheduled office hours are closed.) Patient Instructions/Handouts: *Surgery [facility] - After Heart Catheterization - Hand Ii Thermal Cutter Instructions Discharge Disposition: HOME SELF-CARE
[2023-11-26] MEDS: ONDANSETRON 4 MG/2 ML VIAL IVP PRN (13:35)
== END 2023-11-26 14:11 | disposition home or self-care (01) | DRG 321 ==
LOC: EC 10:15 → 3SCARD 12:23 → 2SICU 11-24 11:55
PROVIDERS: ADMIT Internal Medicine; ATTEND Internal Medicine
PROC: B240ZZ3 Ultrasonography of Single Coronary Artery, Intravascular (ICD-10-PCS; principal; 2023-11-24 09:00)
PROC: B2111ZZ Fluoroscopy of Multiple Coronary Arteries using Low Osmolar Contrast (ICD-10-PCS; principal; 2023-11-24 09:00)
PROC: 4A023N7 Measurement of Cardiac Sampling and Pressure, Left Heart, Percutaneous Approach (ICD-10-PCS; principal; 2023-11-24 09:00)
PROC: 027034Z Dilation of Coronary Artery, One Artery with Drug-eluting Intraluminal Device, Percutaneous Approach (ICD-10-PCS; principal; 2023-11-24 09:00)
PROC: 3E033XZ Introduction of Vasopressor into Peripheral Vein, Percutaneous Approach (ICD-10-PCS; 2023-11-24 09:00)
PROC: 5A1D70Z Performance of Urinary Filtration, Intermittent, Less than 6 Hours Per Day (ICD-10-PCS; 2023-11-24 09:00)
DX: I21.4 Non-ST elevation (NSTEMI) myocardial infarction (principal); N18.6 End stage renal disease; R57.0 Cardiogenic shock; T82.855A Stenosis of coronary artery stent, initial encounter; I13.2 Hypertensive heart and chronic kidney disease with heart failure and with stage 5 chronic kidney disease, or end stage renal disease; E11.41 Type 2 diabetes mellitus with diabetic mononeuropathy; E11.319 Type 2 diabetes mellitus with unspecified diabetic retinopathy without macular edema; D63.1 Anemia in chronic kidney disease; G57.93 Unspecified mononeuropathy of bilateral lower limbs; E11.22 Type 2 diabetes mellitus with diabetic chronic kidney disease; E11.51 Type 2 diabetes mellitus with diabetic peripheral angiopathy without gangrene; I50.9 Heart failure, unspecified; I48.0 Paroxysmal atrial fibrillation; E03.9 Hypothyroidism, unspecified; Z99.2 Dependence on renal dialysis; Z79.4 Long term (current) use of insulin; I25.10 Atherosclerotic heart disease of native coronary artery without angina pectoris; E83.9 Disorder of mineral metabolism, unspecified; I25.84 Coronary atherosclerosis due to calcified coronary lesion; I25.83 Coronary atherosclerosis due to lipid rich plaque; I25.5 Ischemic cardiomyopathy; E78.5 Hyperlipidemia, unspecified; H54.7 Unspecified visual loss; G47.33 Obstructive sleep apnea (adult) (pediatric); F41.9 Anxiety disorder, unspecified; M54.50 Low back pain, unspecified; R13.10 Dysphagia, unspecified; I25.2 Old myocardial infarction; Z79.01 Long term (current) use of anticoagulants; Z79.02 Long term (current) use of antithrombotics/antiplatelets; Z79.890 Hormone replacement therapy; Z79.899 Other long term (current) drug therapy; Z85.46 Personal history of malignant neoplasm of prostate; Z92.3 Personal history of irradiation; Z86.14 Personal history of Methicillin resistant Staphylococcus aureus infection; Z86.73 Personal history of transient ischemic attack (TIA), and cerebral infarction without residual deficits; Z95.5 Presence of coronary angioplasty implant and graft; Z95.1 Presence of aortocoronary bypass graft; Z89.022 Acquired absence of left finger(s); Z87.891 Personal history of nicotine dependence; Z82.49 Family history of ischemic heart disease and other diseases of the circulatory system
CPT/HCPCS: 36415; 71046; 80048; 80053; 82728; 83036; 83540; 83550; 83690; 83735; 83880; 84484; 85025; 85027; 85610; 85730; 90935; 92978; 93005; 93458; 94760; 96365; 96366; 96375; 99291

== ENCOUNTER → 2023-12-09 | Outpatient (CLI) | payer MEDICARE, BC ==
--- NOTE | 2023-12-10 20:23 | CA ---
Transthoracic Echo Report Name: Lan Tillman Age: 63 Gender: M : 1960 Exam Date: 12/09/2023 12:54 Exam Location: Mobile [facility] Ht (in): 71 Wt (lb): 280 Ordering Physician: Vikas Jimenez DO ([email or web address]) Attending/Referring Phys: Project Reservoir Engineer Licha Velásquez RCS Procedure CPT: Indications: I50.22 CHRONIC SYSTOLIC (CONGESTIVE) HEART FAILURE Cardiac Hx: Technical Quality: Technically difficult study Contrast 1: Definity Total Dose (mL): 2 Contrast 2: Total Dose (mL): MEASUREMENTS (Male / Female) Normal Values 2D ECHO LV Diastolic Diameter PLAX 6.6 cm 4.2 - 5.9 / 3.9 - 5.3 cm LV Systolic Diameter PLAX 5.3 cm IVS Diastolic Thickness 1.1 cm 0.6 - 1.0 / 0.6 - 0.9 cm LVPW Diastolic Thickness 1.1 cm 0.6 - 1.0 / 0.6 - 0.9 cm LV Relative Wall Thickness 0.3 RV Internal Dim ED PLAX 4.0 cm LVOT Diameter 2.6 cm LV Diastolic Volume MOD BP 255.9 cm??? 67 - 155 / 56 - 104 cm??? LV Systolic Volume MOD BP 191.9 cm??? 22 - 58 / 19 - 49 cm??? LV Ejection Fraction MOD BP 25.0 % >= 55 % LV Cardiac Index MOD BP 1863.1 cm???/min???m??? LV Diastolic Volume MOD 4C 252.0 cm??? LV Systolic Volume MOD 4C 184.8 cm??? LV Ejection Fraction MOD 4C 26.6 % LV Cardiac Index MOD 4C 1955.6 cm???/min???m??? LV Diastolic Length 4C 10.3 cm LV Systolic Length 4C 10.1 cm LV Diastolic Volume MOD 2C 256.2 cm??? LV Systolic Volume MOD 2C 186.0 cm??? LV Ejection Fraction MOD 2C 27.4 % LV Cardiac Index MOD 2C 2046.5 cm???/min???m??? LV Diastolic Length 2C 10.0 cm LV Systolic Length 2C 9.3 cm LA Volume 135.1 cm??? 18 - 58 / 22 - 52 cm??? LA Volume Index 52.5 cm???/m??? 16 - 28 cm???/m??? Ascending Aorta Diameter 3.1 cm DOPPLER AV Peak Velocity 243.1 cm/s AV Peak Gradient 23.6 mmHg AV Mean Velocity 191.2 cm/s AV Mean Gradient 15.7 mmHg AV Velocity Time Integral 50.3 cm LVOT Peak Velocity 104.6 cm/s LVOT Peak Gradient 4.4 mmHg LVOT Velocity Time Integral 19.2 cm LVOT Stroke Volume 105.9 cm??? LVOT Stroke Volume Index 43.5 ml/m??? LVOT Cardiac Index 3085.3 cm???/min???m??? AV Area Cont Eq vti 2.1 cm??? AV Area Cont Eq pk 2.4 cm??? MV Peak Velocity 170.2 cm/s MV Peak Gradient 11.6 mmHg MV Mean Velocity 133.4 cm/s MV Mean Gradient 7.6 mmHg MV Velocity Time Integral 22.3 cm MR Peak Velocity 424.8 cm/s MR Peak Gradient 72.2 mmHg TR Peak Velocity 255.4 cm/s TR Peak Gradient 26.1 mmHg Right Ventricular Systolic Press 36.1 mmHg PV Peak Velocity 68.0 cm/s PV Peak Gradient 1.8 mmHg FINDINGS Left Ventricle Left ventricular ejection fraction is estimated at 25-30 %. Mildly increased septal wall thickness. Moderately increased left ventricular diastolic diameter. Severely increased left ventricular diastolic volume. Severely increased left ventricular systolic volume. Severely decreased left ventricular ejection fraction. Right Ventricle Mild to moderately increased right ventricle with moderately reduced function. Mildly increased right ventricular systolic pressure. Right Atrium Right atrial dilatation. Left Atrium Severely increased left atrial size Mitral Valve Mitral valve thickened. No evidence for mitral valve prolapse. Moderate mitral regurgitation. Aortic Valve Trileaflet aortic valve. Focal thickening of the aortic valve cusps. Mild aortic stenosis with a peak gradient of 24 mmHg and a mean gradient of 16 mmHg. No aortic regurgitation. Tricuspid Valve Structurally normal tricuspid valve. No tricuspid stenosis. Mild tricuspid regurgitation. Pulmonic Valve Pulmonic valve not well visualized. Trace pulmonic regurgitation. No pulmonic stenosis. Pericardium No pericardial effusion. Aorta Normal size aortic root and proximal ascending aorta. CONCLUSIONS Left ventricular ejection fraction is estimated at 25-30 %. Severely increased left ventricular diastolic volume. Severely increased left atrial size. Elevated LA pressure Moderate mitral regurgitation. Calcific degeneration of mitral valve with resticted psoterior leaflet No pericardial effusion. Previewed by: Dr Luis Enrique Coello (Electronically Signed) Final Date: 10 December 2023 20:22
== END | disposition home or self-care (01) ==
LOC: RADECHMAIN 12:42
PROVIDERS: ATTEND Internal Medicine
DX: I34.0 Nonrheumatic mitral (valve) insufficiency (principal); I50.22 Chronic systolic (congestive) heart failure; I34.81 Nonrheumatic mitral (valve) annulus calcification; I51.89 Other ill-defined heart diseases
CPT/HCPCS: C8929; Q9957; 93306

== ENCOUNTER → 2023-12-19 | Outpatient (CLI) | payer MEDICARE, BC ==
[2023-12-19 16:28] LABS: Chol/HDL Ratio 2.32 Ratio; LDL Cholesterol,Calculated 28.8 mg/dL (0.0-131.0); VLDL Calculation 16.72 mg/dL (5.00-40.00)
[2023-12-20 04:49] LABS: B/A1 Ratio 0.44 Ratio (0.35 - 1.00)
== END | disposition home or self-care (01) ==
LOC: LABWHC1 08:22
PROVIDERS: ATTEND Internal Medicine
DX: E78.2 Mixed hyperlipidemia (principal)
CPT/HCPCS: 36415; 80061; 82172; 83695

== ENCOUNTER 2024-01-25 13:34 | Inpatient (IN) | payer MEDICARE, BC ==
--- NOTE | 2024-01-25 14:06 | ED ---
Extremity Problem HPI - General Source: patient, RN notes reviewed Mode of arrival: wheelchair Limitations: no limitations <Clare Lazar - Last Filed: 01/25/24 14:03> - General Source: RN notes reviewed, old records reviewed Mode of arrival: wheelchair Limitations: no limitations - History of Present Illness MD Complaint: extremity pain, extremity swelling, other (Total edema swelling redness) Location: right, toe Radiation: proximal Severity scale (1-10): 6 Consistency: constant Improves with: nothing Worsens with: nothing Associated Symptoms: denies other symptoms <Vadim Valadez - Last Filed: 02/04/24 20:43> - General Chief complaint: Extremity Problem,Nontraumatic Stated complaint: Bilateral toe issue Time Seen by Provider: 01/25/24 13:50 - History of Present Illness Initial comments: Quick Note- this is a 63-year-old male with a history of diabetes and chronic k idney disease on dialysis department chief complaint of bilateral lower extremity wounds and concern for infection. He denies fevers, nausea, vomiting, abdominal pain. Endorses fatigue states that he has been feeling more tired recently states that he has seen Dr. Dorsey, infectious disease, in the past where he has undergone IV antibiotics. He has a history of MRSA infection. States last round of antibiotics was roughly a month ago and they were oral pills. (Clare Lazar) This is a 63-year-old male to ER with severe diabetes and kidney disease coming in with history of for energy amputation. Patient has significant swelling redness and infection of his toe (Vadim Valadez) - Related Data Home Medications Medication Instructions Recorded Confirmed Levothyroxine Sodium 100 mcg PO DAILY 07/06/17 01/25/24 Torsemide [Demadex] 40 mg PO DAILY 09/10/19 01/25/24 HYDROcodone/APAP 10-325MG [Adams 1 tab PO 5XD PRN 11/24/20 01/25/24 10-325] Insulin Regular, Human [NovoLIN R 8 - 20 unit SQ ACHS PRN 11/24/20 01/25/24 Flexpen] Apixaban [Eliquis] 2.5 mg PO BID 02/16/23 01/25/24 Atorvastatin [Lipitor] 40 mg PO HS 07/16/23 01/25/24 Calcium Acetate [PhosLo] 667 mg PO AC-TID 07/16/23 01/25/24 Calcium Acetate [PhosLo] 667 mg PO DAILY PRN 07/16/23 01/25/24 Insulin Regular, Human [NovoLIN R See Protocol SQ ACHS PRN 07/16/23 01/25/24 Flexpen] Amitriptyline HCl [Elavil] 25 mg PO HS PRN 11/23/23 01/25/24 Folic Acid/Vit B Complex and C 0.8 mg PO DAILY 11/23/23 01/25/24 [Bryanna-Olimpia Tablet] Insulin Detemir [Levemir Flexpen] 25 - 30 units SQ HS 11/23/23 01/25/24 LORazepam 1 mg PO BID PRN 11/23/23 01/25/24 Midodrine HCl [ProAmatine] 10 mg PO AC-TID PRN 11/23/23 01/25/24 Midodrine HCl [ProAmatine] 15 mg PO MOWEFR@0530 01/25/24 01/25/24 Previous Rx's Medication Instructions Recorded FLUoxetine HCL [PROzac] 40 mg PO DAILY 30 Days #30 cap 10/16/22 carvediloL [Coreg] 6.25 mg PO TID #60 tab 04/25/23 Aspirin 81 mg PO DAILY 30 Days #30 tab 11/26/23 Clopidogrel [Plavix] 75 mg PO DAILY 90 Days #90 tab 11/26/23 Allergies Allergy/AdvReac Type Severity Reaction Status Date / Time No Known Allergies Allergy Verified 01/25/24 16:51 Review of Systems ROS Other: All systems not noted in ROS Statement are negative. <Clare Lazar - Last Filed: 01/25/24 14:03> ROS Other: All systems not noted in ROS Statement are negative. <Vadim Valadez - Last Filed: 02/04/24 20:43> ROS Statement: Those systems with pertinent positive or pertinent negative responses have been documented in the HPI. Past Medical History Past Medical History: Coronary Artery Disease (CAD), Cancer, Heart Failure, CVA/TIA, Diabetes Mellitus, Eye Disorder, Hypertension, Myocardial Infarction ([place]), Renal Disease, Sleep Apnea/CPAP/BIPAP, Thyroid Disorder Additional Past Medical History / Comment(s): unhealing sore left index finger, neuropathy bilateral lower extremity/feet, bilateral eye diabetic retinopathy/poor vision/multiple injections, ESRD with hemodialysis T//SAT from 6:15 to 11:00, anemia, "mini strokes" x2, AVANI with CPap use, occasional low back pain/disc disease, gout, hypothyroid Last Myocardial Infarction Date:: 04/19/23 History of Any Multi-Drug Resistant Organisms: MRSA Date of last positivie culture/infection: 12/10/21 MDRO Source:: Finger-Right 5th Past Surgical History: Adenoidectomy, Bariatric Surgery, Cholecystectomy, Heart Catheterization, Heart Catheterization With Stent, Orthopedic Surgery, Tonsillectomy Additional Past Surgical History / Comment(s): 10/22/20 PCI with stents x2, lap banding, FX of right ankle repair pins / plate, fistual lt arm jul 2018, lt shoulder sx (d/t separation), colonoscopies, bilateral cataract removals/lens implants. LIF surgery 08/11/21 R LEG stacey placed January 2023 04/19/23 3 stents Past Anesthesia/Blood Transfusion Reactions: Motion Sickness Additional Past Anesthesia/Blood Transfusion Reaction / Comment(s): CLAUSTERPHOBIA Date of Last Stent Placement:: 04/19/23 Past Psychological History: Anxiety Smoking Status: Former smoker Past Alcohol Use History: None Reported Past Drug Use History: None Reported - Past Family History Mother History Unknown: Yes Family Medical History: Coronary Artery Disease (CAD), Myocardial Infarction ([place]) Additional Family Medical History / Comment(s): Mother at age 58 from multiple sclerosis Father Family Medical History: CVA/TIA, Myocardial Infarction ([place]) Additional Family Medical History / Comment(s): Father had history of [place] and CVA followed by a second [place] and CVA and at age 65. Brother(s) Additional Family Medical History / Comment(s): . <Clare Lazar - Last Filed: 01/25/24 14:03> General Exam Limitations: no limitations <Clare Lazar - Last Filed: 01/25/24 14:03> General appearance: alert, in no apparent distress Head exam: Present: atraumatic, normocephalic, normal inspection Eye exam: Present: normal appearance, PERRL, EOMI. Absent: scleral icterus, conjunctival injection, periorbital swelling ENT exam: Present: normal exam, mucous membranes moist Neck exam: Present: normal inspection. Absent: tenderness, meningismus, lymphadenopathy Respiratory exam: Present: normal lung sounds bilaterally. Absent: respiratory distress, wheezes, rales, rhonchi, stridor Cardiovascular Exam: Present: regular rate, normal rhythm, normal heart sounds. Absent: systolic murmur, diastolic murmur, rubs, gallop, clicks GI/Abdominal exam: Present: soft, normal bowel sounds. Absent: distended, tenderness, guarding, rebound, rigid Extremities exam: Present: normal inspection, full ROM, normal capillary refill. Absent: tenderness, pedal edema, joint swelling, calf tenderness Back exam: Present: normal inspection Neurological exam: Present: alert, oriented X3, CN II-XII intact Psychiatric exam: Present: normal affect, normal mood Skin exam: Present: warm, dry, intact, normal color. Absent: rash <Vadim Valadez - Last Filed: 02/04/24 20:43> - General Exam Comments Initial Comments: Visual Physical Exam Vital signs reviewed General: Well-appearing, nontoxic, no acute distress. Head: Normocephalic, atraumatic Eyes: PERRLA, EOMI ENT: Airway patent Chest: Nonlabored breathing Skin: No visual rash, normal skin tone Neuro: Alert and oriented 3 Musculoskeletal: No gross abnormalities (Stieler,Clare) Course <Vadim Valadez - Last Filed: 02/04/24 20:43> Vital Signs 01/25/24 01/25/24 01/25/24 13:38 17:31 18:32 Temperature 97.6 F Pulse Rate 88 84 82 Respiratory 18 18 18 Rate Blood Pressure 136/81 116/66 118/61 O2 Sat by Pulse 99 96 97 Oximetry - Reevaluation(s) Reevaluation #1: 01/25/24 17:34 Medical records reviewed (Vadim Valadez) Reevaluation #2: 01/25/24 17:34 Patient symptoms unchanged (Vadim Valadez) Reevaluation #3: 01/25/24 17:34 Patient informed of results and questions answered (Vadim Valadez) Reevaluation #4: Was pt. sent in by a medical professional or institution (Dr., PA, SUPERVISOR PARTICLEBO[employer], urgent care, hospital, or [facility]...) When possible be specific @ -no Did you speak to anyone other than the patient for history (EMS, parent, family, police, friend...)? What history was obtained from this source @ -no Did you review nursing and triage notes (agree or disagree)? Why? @ -agree Are old charts reviewed (outside hosp., previous admission, EMS record, old EKG, old radiological studies, urgent care reports/EKG's, [facility] records)? Report findings @ -yes Differential Diagnosis (chest pain, altered mental status, abdominal pain women, abdominal pain men, vaginal bleeding, weakness, fever, dyspnea, syncope, headache, dizziness, GI bleed, back pain, seizure, CVA, palpatations, mental health, musculoskeletal)? @ -prior EKG interpreted by me (3pts min.). @ -no X-rays interpreted by me (1pt min.). @ -yes negative for acute disease CT interpreted by me (1pt min.). @ -no U/S interpreted by me (1pt. min.). @ -no What testing was considered but not performed or refused? (CT, X-rays, U/S, labs)? Why? @ -none What meds were considered but not given or refused? Why? @ -none Did you discuss the management of the patient with other professionals (professionals i.e. LEANN Garcia, SUPERVISOR [employer], lab, RT, psych nurse, social insurance administrator, machinist supervisor, teacher, affirmative action officer, immigration case worker)? Give summary @ -no Was smoking cessation discussed for >3mins.? @ -no Was critical care preformed (if so, how long)? @ -no Were there social determinants of health that impacted care today? How? (Homelessness, low income, unemployed, alcoholism, drug addiction, transportation, low edu. Level, literacy, decrease access to med. care, retirement, rehab)? @ -none Was there de-escalation of care discussed even if they declined (Discuss DNR or withdrawal of care, Hospice)? DNR status @ -no What co-morbidities impacted this encounter? (DM, HTN, Smoking, COPD, CAD, Cancer, CVA, ARF, Chemo, Hep., AIDS, mental health diagnosis, sleep apnea, morbid obesity)? @ -none Was patient admitted / discharged? Hospital course, mention meds given and route, prescriptions, significant lab abnormalities, going to OR and other pertinent info. @ - 63 male to be admitted for concern for lower extremity cellulitis diabetic foot ulcer infection Admitted Undiagnosed new problem with uncertain prognosis? @ -no Drug Therapy requiring intensive monitoring for toxicity (Heparin, Nitro, Insulin, Cardizem)? @ -no Were any procedures done? @ -no Diagnosis/symptom? @ -diabetic foot ulcer with infection and cellulitis Acute, or Chronic, or Acute on Chronic? @ -Acute Uncomplicated (without systemic symptoms) or Complicated (systemic symptoms)? @ -Complicated Side effects of treatment? @ -no Exacerbation, Progression, or Severe Exacerbation? @ -exacerbation Poses a threat to life or bodily function? How? (Chest pain, [place], [place], pneumonia, PE, COPD, DKA, ARF, appy, cholecystitis, CVA, Diverticulitis, Homicidal, Suicidal, threat to staff... and all critical care pts) @ -yes with significant infection (Vadim Valadez) - Consultations Consultation #1: [facility] who agrees to admit this patient (Vadim Valadez) Medical Decision Making <Clare Lazar - Last Filed: 01/25/24 14:03> - Lab Data Result diagrams: 02/03/24 06:17 02/03/24 06:17 - Radiology Data Radiology results: report reviewed (X-ray foot is negative for acute disease), image reviewed <Vadim Valadez - Last Filed: 02/04/24 20:43> - Medical Decision Making I completed the quick note portion of this chart signed Clare Lazar PA-C (Clare Lazar) 63 male to be admitted for concern for lower extremity cellulitis diabetic foot ulcer infection (Vadim Valadez) - Lab Data Lab Results 01/25/24 01/25/24 01/25/24 Range/Units 14:55 14:55 14:55 WBC 7.6 (3.8-10.6) k/uL RBC 3.73 L (4.30-5.90) m/uL Hgb 12.0 L (13.0-17.5) gm/dL Hct 38.0 L (39.0-53.0) % MCV 101.8 H (80.0-100.0) fL MCH 32.3 (25.0-35.0) pg MCHC 31.7 (31.0-37.0) g/dL RDW 14.5 (11.5-15.5) % Plt Count 118 L (150-450) k/uL MPV 8.2 Immature Gran % (Auto) % Absolute Nucleated RBC % Neutrophils % 83 % Lymphocytes % 9 % Monocytes % 4 % Eosinophils % 2 % Basophils % 1 % Immature Gran # (0.00-0.04) X 10*3/uL Neutrophils # 6.4 (1.3-7.7) k/uL Lymphocytes # 0.7 L (1.0-4.8) k/uL Monocytes # 0.3 (0-1.0) k/uL Eosinophils # 0.2 (0-0.7) k/uL Basophils # 0.0 (0-0.2) k/uL NRBC/100 WBC Diff (0.00-0.01) X 10*3/uL Macrocytosis Slight Sodium 134 L (137-145) mmol/L Potassium 3.9 (3.5-5.1) mmol/L Chloride 94 L (98-107) mmol/L Carbon Dioxide 29 (22-30) mmol/L Anion Gap 11 mmol/L BUN 23 H (9-20) mg/dL Creatinine 3.04 H (0.66-1.25) mg/dL Est GFR (CKD-EPI) (>=60) Est GFR (CKD-EPI)AfAm 24 (>60 ml/min/1.73 sqM) Est GFR (CKD-EPI)NonAf 21 (>60 ml/min/1.73 sqM) BUN/Creatinine Ratio (12.00-20.00) Ratio Glucose 191 H (74-99) mg/dL POC Glucose (mg/dL) (70-110) mg/dL POC Glu Respiratory Coordinator ID Estimated Ave Glu mg/dL mg/dL Hemoglobin A1c (<=6.0) % Plasma Lactic Acid Oscar 1.4 (0.7-2.0) mmol/L Calcium 8.6 (8.4-10.2) mg/dL Phosphorus (2.4-5.1) mg/dL Magnesium (1.5-2.4) mg/dL Total Bilirubin 0.7 (0.2-1.3) mg/dL AST 16 L (17-59) U/L ALT 13 (4-49) U/L Alkaline Phosphatase 105 (38-126) U/L Total Protein 7.2 (6.3-8.2) g/dL Albumin 3.8 (3.5-5.0) g/dL Globulin (1.6-3.3) g/dL Albumin/Globulin Ratio (1.60-3.17) Ratio Random Vancomycin ug/mL 01/25/24 01/26/24 01/26/24 Range/Units 21:17 05:54 06:08 WBC (3.8-10.6) k/uL RBC (4.30-5.90) m/uL Hgb (13.0-17.5) gm/dL Hct (39.0-53.0) % MCV (80.0-100.0) fL MCH (25.0-35.0) pg MCHC (31.0-37.0) g/dL RDW (11.5-15.5) % Plt Count (150-450) k/uL MPV Immature Gran % (Auto) % Absolute Nucleated RBC % Neutrophils % % Lymphocytes % % Monocytes % % Eosinophils % % Basophils % % Immature Gran # (0.00-0.04) X 10*3/uL Neutrophils # (1.3-7.7) k/uL Lymphocytes # (1.0-4.8) k/uL Monocytes # (0-1.0) k/uL Eosinophils # (0-0.7) k/uL Basophils # (0-0.2) k/uL NRBC/100 WBC Diff (0.00-0.01) X 10*3/uL Macrocytosis Sodium (137-145) mmol/L Potassium (3.5-5.1) mmol/L Chloride (98-107) mmol/L Carbon Dioxide (22-30) mmol/L Anion Gap mmol/L BUN (9-20) mg/dL Creatinine (0.66-1.25) mg/dL Est GFR (CKD-EPI) (>=60) Est GFR (CKD-EPI)AfAm (>60 ml/min/1.73 sqM) Est GFR (CKD-EPI)NonAf (>60 ml/min/1.73 sqM) BUN/Creatinine Ratio (12.00-20.00) Ratio Glucose (74-99) mg/dL POC Glucose (mg/dL) 191 H 115 H (70-110) mg/dL POC Glu Respiratory Coordinator SHANTA Tidwell, Michelle Hickeyjihan, Michelle Estimated Ave Glu mg/dL 157 mg/dL Hemoglobin A1c 7.1 H (<=6.0) % Plasma Lactic Acid Oscar (0.7-2.0) mmol/L Calcium (8.4-10.2) mg/dL Phosphorus (2.4-5.1) mg/dL Magnesium (1.5-2.4) mg/dL Total Bilirubin (0.2-1.3) mg/dL AST (17-59) U/L ALT (4-49) U/L Alkaline Phosphatase (38-126) U/L Total Protein (6.3-8.2) g/dL Albumin (3.5-5.0) g/dL Globulin (1.6-3.3) g/dL Albumin/Globulin Ratio (1.60-3.17) Ratio Random Vancomycin ug/mL 01/26/24 01/26/24 01/26/24 Range/Units 06:08 06:08 12:03 WBC 6.99 (3.8-10.6) k/uL RBC 3.61 L (4.30-5.90) m/uL Hgb 11.7 L (13.0-17.5) gm/dL Hct 37.0 L (39.0-53.0) % MCV 102.5 H (80.0-100.0) fL MCH 32.4 H (25.0-35.0) pg MCHC 31.6 L (31.0-37.0) g/dL RDW 14.4 (11.5-15.5) % Plt Count 145 (150-450) k/uL MPV 10.4 Immature Gran % (Auto) 0.40 % Absolute Nucleated RBC 0 % Neutrophils % 76.4 % Lymphocytes % 13.6 % Monocytes % 6.2 % Eosinophils % 2.7 % Basophils % 0.7 % Immature Gran # 0.03 (0.00-0.04) X 10*3/uL Neutrophils # 5.34 (1.3-7.7) k/uL Lymphocytes # 0.95 (1.0-4.8) k/uL Monocytes # 0.43 (0-1.0) k/uL Eosinophils # 0.19 (0-0.7) k/uL Basophils # 0.05 (0-0.2) k/uL NRBC/100 WBC Diff 0 (0.00-0.01) X 10*3/uL Macrocytosis Sodium 137 (137-145) mmol/L Potassium 4.2 (3.5-5.1) mmol/L Chloride 93 L (98-107) mmol/L Carbon Dioxide 31.3 (22-30) mmol/L Anion Gap 12.70 H mmol/L BUN 29.8 H (9-20) mg/dL Creatinine 4.3 H (0.66-1.25) mg/dL Est GFR (CKD-EPI) 15 L (>=60) Est GFR (CKD-EPI)AfAm (>60 ml/min/1.73 sqM) Est GFR (CKD-EPI)NonAf (>60 ml/min/1.73 sqM) BUN/Creatinine Ratio 6.93 L (12.00-20.00) Ratio Glucose 118 H (74-99) mg/dL POC Glucose (mg/dL) 139 H (70-110) mg/dL POC Glu Respiratory Coordinator ID Shivani Toure Estimated Ave Glu mg/dL mg/dL Hemoglobin A1c (<=6.0) % Plasma Lactic Acid Oscar (0.7-2.0) mmol/L Calcium 8.8 (8.4-10.2) mg/dL Phosphorus 4.4 (2.4-5.1) mg/dL Magnesium 2.0 (1.5-2.4) mg/dL Total Bilirubin 0.3 (0.2-1.3) mg/dL AST 13 L (17-59) U/L ALT 10 (4-49) U/L Alkaline Phosphatase 102 (38-126) U/L Total Protein 6.7 (6.3-8.2) g/dL Albumin 3.7 L (3.5-5.0) g/dL Globulin 3.0 (1.6-3.3) g/dL Albumin/Globulin Ratio 1.23 L (1.60-3.17) Ratio Random Vancomycin ug/mL 01/26/24 01/26/24 01/27/24 Range/Units 17:11 20:41 03:30 WBC (3.8-10.6) k/uL RBC (4.30-5.90) m/uL Hgb (13.0-17.5) gm/dL Hct (39.0-53.0) % MCV (80.0-100.0) fL MCH (25.0-35.0) pg MCHC (31.0-37.0) g/dL RDW (11.5-15.5) % Plt Count (150-450) k/uL MPV Immature Gran % (Auto) % Absolute Nucleated RBC % Neutrophils % % Lymphocytes % % Monocytes % % Eosinophils % % Basophils % % Immature Gran # (0.00-0.04) X 10*3/uL Neutrophils # (1.3-7.7) k/uL Lymphocytes # (1.0-4.8) k/uL Monocytes # (0-1.0) k/uL Eosinophils # (0-0.7) k/uL Basophils # (0-0.2) k/uL NRBC/100 WBC Diff (0.00-0.01) X 10*3/uL Macrocytosis Sodium (137-145) mmol/L Potassium (3.5-5.1) mmol/L Chloride (98-107) mmol/L Carbon Dioxide (22-30) mmol/L Anion Gap mmol/L BUN (9-20) mg/dL Creatinine (0.66-1.25) mg/dL Est GFR (CKD-EPI) (>=60) Est GFR (CKD-EPI)AfAm (>60 ml/min/1.73 sqM) Est GFR (CKD-EPI)NonAf (>60 ml/min/1.73 sqM) BUN/Creatinine Ratio (12.00-20.00) Ratio Glucose (74-99) mg/dL POC Glucose (mg/dL) 268 H 159 H 108 (70-110) mg/dL POC Glu Respiratory Coordinator ID Shivani Toure Julianne Witmer, Jeremy Estimated Ave Glu mg/dL mg/dL Hemoglobin A1c (<=6.0) % Plasma Lactic Acid Oscar (0.7-2.0) mmol/L Calcium (8.4-10.2) mg/dL Phosphorus (2.4-5.1) mg/dL Magnesium (1.5-2.4) mg/dL Total Bilirubin (0.2-1.3) mg/dL AST (17-59) U/L ALT (4-49) U/L Alkaline Phosphatase (38-126) U/L Total Protein (6.3-8.2) g/dL Albumin (3.5-5.0) g/dL Globulin (1.6-3.3) g/dL Albumin/Globulin Ratio (1.60-3.17) Ratio Random Vancomycin ug/mL 01/27/24 01/27/24 Range/Units 06:29 06:33 WBC (3.8-10.6) k/uL RBC (4.30-5.90) m/uL Hgb (13.0-17.5) gm/dL Hct (39.0-53.0) % MCV (80.0-100.0) fL MCH (25.0-35.0) pg MCHC (31.0-37.0) g/dL RDW (11.5-15.5) % Plt Count (150-450) k/uL MPV Immature Gran % (Auto) % Absolute Nucleated RBC % Neutrophils % % Lymphocytes % % Monocytes % % Eosinophils % % Basophils % % Immature Gran # (0.00-0.04) X 10*3/uL Neutrophils # (1.3-7.7) k/uL Lymphocytes # (1.0-4.8) k/uL Monocytes # (0-1.0) k/uL Eosinophils # (0-0.7) k/uL Basophils # (0-0.2) k/uL NRBC/100 WBC Diff (0.00-0.01) X 10*3/uL Macrocytosis Sodium 133 L (137-145) mmol/L Potassium 4.8 (3.5-5.1) mmol/L Chloride 94 L (98-107) mmol/L Carbon Dioxide 27 (22-30) mmol/L Anion Gap 12 mmol/L BUN 48 H (9-20) mg/dL Creatinine 5.61 H (0.66-1.25) mg/dL Est GFR (CKD-EPI) (>=60) Est GFR (CKD-EPI)AfAm 11 (>60 ml/min/1.73 sqM) Est GFR (CKD-EPI)NonAf 10 (>60 ml/min/1.73 sqM) BUN/Creatinine Ratio (12.00-20.00) Ratio Glucose 148 H (74-99) mg/dL POC Glucose (mg/dL) 144 H (70-110) mg/dL POC Glu Respiratory Coordinator ID Donta Liu Estimated Ave Glu mg/dL mg/dL Hemoglobin A1c (<=6.0) % Plasma Lactic Acid Oscar (0.7-2.0) mmol/L Calcium 8.5 (8.4-10.2) mg/dL Phosphorus (2.4-5.1) mg/dL Magnesium 1.6 (1.5-2.4) mg/dL Total Bilirubin (0.2-1.3) mg/dL AST (17-59) U/L ALT (4-49) U/L Alkaline Phosphatase (38-126) U/L Total Protein (6.3-8.2) g/dL Albumin (3.5-5.0) g/dL Globulin (1.6-3.3) g/dL Albumin/Globulin Ratio (1.60-3.17) Ratio Random Vancomycin 27.2 ug/mL Disposition <Clare Lazar - Last Filed: 01/25/24 14:03> Time of Disposition: 17:30 <Vadim Valadez - Last Filed: 02/04/24 20:43> Clinical Impression: Cellulitis, Gangrene, Renal insufficiency, Chronic kidney disease Disposition: ADMITTED IP TO THIS HOSP Condition: Fair
--- NOTE | 2024-01-25 15:05 | XR ---
EXAMINATION TYPE: XR foot complete 3 views bilateral DATE OF EXAM: 01/25/2024 Comparison: Right foot 08/23/2023 Clinical History: 63-year-old male wounds, concern for osteomyelitis Findings: Right: Retrograde intramedullary nail traversing the hindfoot subtalar joint and tibiotalar joint. There is prominent lucency about the orthopedic hardware especially in the calcaneus up to 5 mm. Marked diffus e soft tissue swelling. Vascular calcifications. No other obvious lytic destruction seen. Left: Diffuse vascular calcifications. Generalized soft tissue swelling. Small plantar heel spur. Mild dege nerative change first and the joint. Osteopenia. No obvious lytic destruction is identified. Impression: No obvious lytic destruction is identified in either foot to suggest a contiguous osteomyelitis. Mclaughlin farhad, there is significant periprosthetic lucency in the right hindfoot especially within the calcaneu s related to the patient's large retrograde nail. The significant lucency suggests loosening which co uld be mechanical or secondary to underlying infection. Asymmetrically greater soft tissue swelling o n the right.
[2024-01-25 15:09] LABS: Basophils % (A) 1 %; Eosinophils # (A) 0.2 k/uL (0-0.7); Eosinophils % (A) 2 %; Lymphocytes # (A) 0.7 k/uL (1.0-4.8); Lymphocytes % (A) 9 %; MCH 32.3 pg (25.0-35.0); MCHC 31.7 g/dL (31.0-37.0); MCV 101.8 fL (80.0-100.0); Macrocytosis Slight; Mean Platelet Volume 8.2; Monocytes # (A) 0.3 k/uL (0-1.0); Monocytes % (A) 4 %; Neutrophils # (A) 6.4 k/uL (1.3-7.7); Neutrophils % (A) 83 %; Platelet Count 118 k/uL (150-450); RBC 3.73 m/uL (4.30-5.90); RDW 14.5 % (11.5-15.5); WBC 7.6 k/uL (3.8-10.6)
[2024-01-25 15:20] LABS: ALT 13 U/L (4-49); AST 16 U/L (17-59); African American GFR (CKD) 24 (>60 ml/min/1.73 sqM); Albumin 3.8 g/dL (3.5-5.0); Alkaline Phosphatase 105 U/L (38-126); Anion Gap 11 mmol/L; Blood Urea Nitrogen 23 mg/dL (9-20); Calcium 8.6 mg/dL (8.4-10.2); Carbon Dioxide 29 mmol/L (22-30); Chloride 94 mmol/L (98-107); Glucose 191 mg/dL (74-99); Non-African American GFR(CKD) 21 (>60 ml/min/1.73 sqM); Potassium 3.9 mmol/L (3.5-5.1); Sodium 134 mmol/L (137-145); Total Bilirubin 0.7 mg/dL (0.2-1.3); Total Protein 7.2 g/dL (6.3-8.2)
[2024-01-25] MEDS ORDERED: NALOXONE 0.4 MG/ML 1 ML VIAL IV PRN (17:31)
[2024-01-25] MEDS ORDERED: ONDANSETRON 4 MG/2 ML VIAL IVP PRN (17:31)
[2024-01-25] MEDS ORDERED: VANCOMYCIN IV PER PHARMACY 1 EACH MISC MISCELLANE PRN (17:33)
[2024-01-25] MEDS: SODIUM CHLORIDE 0.9% 1,000 ML IV SCH (18:29)
[2024-01-25] MEDS: MORPHINE SULFATE 4 MG/ML SYRINGE IV PRN (18:54)
[2024-01-25] MEDS: VANCOMYCIN 2,000 MG in SODIUM CHLORIDE 0.9% 500 ML 500 ML IVPB ONE (20:14)
[2024-01-25] MEDS ORDERED: AMITRIPTYLINE HCL 25 MG TAB PO PRN (20:38)
[2024-01-25] MEDS ORDERED: DEXTROSE 50% SYRINGE 50 ML IVP PRN ×2 (20:42)
[2024-01-25 21:18] LABS: Glucose,Whole Blood 191 mg/dL (70-110)
[2024-01-25] MEDS: ATORVASTATIN 40 MG TAB PO SCH (21:27)
[2024-01-25] MEDS: HYDROcodone/APAP 10-325MG 1 EACH TAB PO PRN (21:27)
[2024-01-25] MEDS: carvediloL 6.25 MG TAB PO SCH (21:27)
[2024-01-25] MEDS: APIXABAN 2.5 MG TABLET PO SCH (21:28)
[2024-01-25] MEDS: INSULIN DETEMIR (LEVEMIR) 100 UNIT/ML SYR SQ SCH (21:28)
[2024-01-25] MEDS: INSULIN ASPART (NovoLOG) 100 UNIT/ML VIAL SQ SCH (21:28)
[2024-01-26 05:55] LABS: Glucose,Whole Blood 115 mg/dL (70-110)
[2024-01-26] MEDS: LEVOTHYROXINE 100 MCG TAB PO SCH (06:06)
[2024-01-26] MEDS: CALCIUM ACETATE 667 MG TAB PO SCH (08:05)
[2024-01-26] MEDS: MIDODRINE 5 MG TAB PO ONE (08:05)
[2024-01-26 08:48] LABS: Basophils # (A) 0.05 X 10*3/uL (0.00-0.10); Basophils % (A) 0.7 %; Eosinophils # (A) 0.19 X 10*3/uL (0.04-0.35); Eosinophils % (A) 2.7 %; HGB 11.7 g/dL (13.0-17.0); Lymphocytes # (A) 0.95 X 10*3/uL (0.90-5.00); Lymphocytes % (A) 13.6 %; MCH 32.4 pg (27.0-32.0); MCHC 31.6 g/dL (32.0-37.0); MCV 102.5 FL (80.0-97.0); Mean Platelet Volume 10.4 FL (9.5-12.2); Monocytes # (A) 0.43 X 10*3/uL (0.20-1.00); Monocytes % (A) 6.2 %; NRBC Per 100 WBC 0 X 10*3/uL (0.00-0.01); Neutrophils # (A) 5.34 X 10*3/uL (1.80-7.70); Neutrophils % (A) 76.4 %; Platelet Count 145 X 10*3/uL (140-440); RBC 3.61 X 10*6/uL (4.40-5.60); RDW 14.4 % (11.5-14.5); WBC 6.99 X 10*3/uL (4.50-10.00)
[2024-01-26] MEDS: FLUoxetine HCL 20 MG CAP PO SCH (10:00)
[2024-01-26] MEDS: FOLIC ACID-VIT B COMPLEX-VIT C 1 CAP PO SCH (10:00)
[2024-01-26] MEDS: ASPIRIN 81 MG PO SCH (10:00)
[2024-01-26] MEDS: CLOPIDOGREL 75 MG TAB PO SCH (10:00)
[2024-01-26] MEDS: TORSEMIDE 20 MG TAB PO SCH (10:00)
[2024-01-26 11:40] LABS: BUN/Creat Ratio 6.93 Ratio (12.00-20.00); Blood Urea Nitrogen 29.8 mg/dL (9.0-27.0); Carbon Dioxide 31.3 mmol/L (21.6-31.8); Chloride 93 mmol/L (96-109); Glucose 118 mg/dL (70-110); Phosphorus 4.4 mg/dL (2.4-5.1); Potassium 4.2 mmol/L (3.5-5.5); Sodium 137 mmol/L (135-145)
[2024-01-26 11:41] LABS: ALT 10 U/L (10-49); AST 13 U/L (14-35); Albumin 3.7 g/dL (3.8-4.9); Albumin/Globulin Ratio 1.23 Ratio (1.60-3.17); Alkaline Phosphatase 102 U/L (41-126); Calcium 8.8 mg/dL (8.7-10.3); Total Bilirubin 0.3 mg/dL (0.3-1.2); Total Protein 6.7 g/dL (6.2-8.2)
--- NOTE | 2024-01-26 11:53 | P.NPCON ---
History of Present Illness - Reason for Consult end stage renal disease - History of Present Illness patient is 63-year-old male with end-stage renal disease on hemodialysis on a Tuesday schedule. patient is admitted to the hospital with bleeding from the right foot. There is no history of trauma. The foot has been red for about a week now. No history of fevers or chills. currently started on IV antibiotics. No complaints of shortness of breath. Review of Systems as per HPI Past Medical History Past Medical History: Coronary Artery Disease (CAD), Cancer, Heart Failure, CVA/TIA, Diabetes Mellitus, Eye Disorder, Hypertension, Myocardial Infarction ([place]), Renal Disease, Respiratory Disorder, Sleep Apnea/CPAP/BIPAP, Thyroid Disorder Additional Past Medical History / Comment(s): unhealing sore left index finger, neuropathy bilateral lower extremity/feet, bilateral eye diabetic retinopathy/ poor vision/multiple injections, ESRD with hemodialysis M/W/F from 6:15 to 11:00, anemia, "mini strokes" x2, AVANI with CPap use, occasional low back pain/disc disease, gout, hypothyroid Last Myocardial Infarction Date:: 04/19/23 History of Any Multi-Drug Resistant Organisms: MRSA Date of last positivie culture/infection: 12/10/21 MDRO Source:: Finger-Right 5th Past Surgical History: Adenoidectomy, Bariatric Surgery, Cholecystectomy, Heart Catheterization, Heart Catheterization With Stent, Orthopedic Surgery, Tonsillectomy Additional Past Surgical History / Comment(s): 10/22/20 PCI with stents x2, lap banding, FX of right ankle repair pins / plate, fistual lt arm jul 2018, lt shoulder sx (d/t separation), colonoscopies, bilateral cataract removals/lens implants. LIF surgery 08/11/21 R LEG stacey placed January 2023 04/19/23 3 stents Past Anesthesia/Blood Transfusion Reactions: Motion Sickness Additional Past Anesthesia/Blood Transfusion Reaction / Comment(s): CLAUSTERPHOBIA Date of Last Stent Placement:: 04/19/23 Past Psychological History: Anxiety Additional Psychological History / Comment(s): Pt resides with his spouse. He no longer drives d/t vision loss. His spouse drives and organizes his medications for him. He has a walker and uses a wheelchair if going distances (dialysis days). Smoking Status: Former smoker Past Alcohol Use History: None Reported Additional Past Alcohol Use History / Comment(s): Patient was a smoker of 2-3 packs per day for 35 years and quit in 2006. Past Drug Use History: None Reported - Past Family History Mother History Unknown: Yes Family Medical History: Coronary Artery Disease (CAD), Myocardial Infarction ([place]) Additional Family Medical History / Comment(s): Mother at age 58 from multiple sclerosis Father Family Medical History: CVA/TIA, Myocardial Infarction ([place]) Additional Family Medical History / Comment(s): Father had history of [place] and CVA followed by a second [place] and CVA and at age 65. Brother(s) Additional Family Medical History / Comment(s): . Medications and Allergies Home Medications Medication Instructions Recorded Confirmed Type Levothyroxine Sodium 100 mcg PO DAILY 07/06/17 01/25/24 History Torsemide [Demadex] 40 mg PO DAILY 09/10/19 01/25/24 History HYDROcodone/APAP 10-325MG [[place] 1 tab PO 5XD PRN 11/24/20 01/25/24 History 10-325] Insulin Regular, Human [NovoLIN R 8 - 20 unit SQ ACHS PRN 11/24/20 01/25/24 History Flexpen] FLUoxetine HCL [PROzac] 40 mg PO DAILY 30 Days #30 cap 10/16/22 01/25/24 Rx Apixaban [Eliquis] 2.5 mg PO BID 02/16/23 01/25/24 History carvediloL [Coreg] 6.25 mg PO TID #60 tab 04/25/23 01/25/24 Rx Atorvastatin [Lipitor] 40 mg PO HS 07/16/23 01/25/24 History Calcium Acetate [PhosLo] 667 mg PO AC-TID 07/16/23 01/25/24 History Calcium Acetate [PhosLo] 667 mg PO DAILY PRN 07/16/23 01/25/24 History Insulin Regular, Human [NovoLIN R See Protocol SQ ACHS PRN 07/16/23 01/25/24 History Flexpen] Amitriptyline HCl [Elavil] 25 mg PO HS PRN 11/23/23 01/25/24 History Folic Acid/Vit B Complex and C 0.8 mg PO DAILY 11/23/23 01/25/24 History [Bryanna-Olimpia Tablet] Insulin Detemir [Levemir Flexpen] 25 - 30 units SQ HS 11/23/23 01/25/24 History LORazepam 1 mg PO BID PRN 11/23/23 01/25/24 History Midodrine HCl [ProAmatine] 10 mg PO AC-TID PRN 11/23/23 01/25/24 History Aspirin 81 mg PO DAILY 30 Days #30 tab 11/26/23 01/25/24 Rx Clopidogrel [Plavix] 75 mg PO DAILY 90 Days #90 tab 11/26/23 01/25/24 Rx Midodrine HCl [ProAmatine] 15 mg PO MOWEFR@0530 01/25/24 01/25/24 History Allergies Allergy/AdvReac Type Severity Reaction Status Date / Time No Known Allergies Allergy Verified 01/25/24 16:51 Physical Exam Vitals: Vital Signs Temp Pulse Pulse Resp BP BP Pulse Ox 01/26/24 09:40 101 H 109/72 100 01/26/24 07:58 97.7 F 92 16 87/54 100 01/26/24 06:09 63 93/54 01/26/24 03:11 97.4 F L 98 18 104/64 99 01/25/24 19:47 98.0 F 90 16 112/71 99 01/25/24 18:32 82 18 118/61 97 01/25/24 17:31 84 18 116/66 96 01/25/24 13:38 97.6 F 88 18 136/81 99 Intake and Output 01/25/24 01/26/24 01/26/24 22:59 06:59 14:59 Intake Total 260 Balance 260 Intake: Oral 260 Other: # Voids 0 # Bowel Movements 1 1 Weight 126 kg patient is awake, comfortable, in no acute distress Alert oriented 3 Examination of the heart S1 and S2 Examination of the lungs bilateral breath sounds are heard Abdomen is soft obese Examination lower extremity shows edema of both feet worse on the right foot with bleeding noted from the right first toe. Multiple amputations of fingers on both hands. Results - Lab Results Most recent lab results Calcium 8.8 mg/dL (8.7-10.3) 01/26/24 06:08 Phosphorus 4.4 mg/dL (2.4-5.1) 01/26/24 06:08 Magnesium 2.0 mg/dL (1.5-2.4) 01/26/24 06:08 01/26/24 06:08 01/26/24 06:08 Assessment and Plan Assessment: 1. End-stage renal disease on hemodialysis on a Tuesday vent is a Tuesday schedule 2. Right foot cellulitis maintained on antibiotics 3. Hypertension with C daily stage V 4. CK D mineral bone disorder Plan: dialysis in a.m. Continue with antibiotics Continue with phosphate binders.
[2024-01-26 12:04] LABS: Glucose,Whole Blood 139 mg/dL (70-110)
[2024-01-26] MEDS: VANCOMYCIN 2,000 MG in SODIUM CHLORIDE 0.9% 500 ML 500 ML IVPB ONE (12:16)
[2024-01-26 14:11] VITALS: BMI 38.7
[2024-01-26 17:13] LABS: Glucose,Whole Blood 268 mg/dL (70-110)
[2024-01-26 20:43] LABS: Glucose,Whole Blood 159 mg/dL (70-110)
--- NOTE | 2024-01-26 22:16 | P.CONS ---
History of Present Illness - Reason for Consult Consult date: 01/26/24 - History of Present Illness Patient is a 63-year-old male with a past medical history significant for coronary artery disease heart failure with CVA TIA diabetes mellitus hypertension [place] patient did have a multiple limitation to bilateral hand fingers because of infection patient now presenting to the hospital with multiple open wounds to the left upper extremity with the patient has been attributing to the his puppy scratching him patient mention has been evaluated outpatient setting and has been treated with a course of antibiotic however he did not have any improvement hence he presented to the hospital for further evaluation patient denies high-grade fever or any chills denies any headache or URI symptoms no chest pain shortness with occasional cough no abdominal pain or diarrhea patient did have multiple wounds to the left upper extremity with some bloodstained drainage denies any pain main concern has been her nonhealing of this wound patient also noticed to have a some bleeding from the right big toe that has been getting on for the last day or 2 did have some bleeding from the area howev er denies any foul-smelling drainage or history of trauma patient on presentation to the hospital was afebrile and no fever have recorded subsequently patient was tachycardic but not hypotensive patient did have a white count of 7.6 creatinine elevated because of underlying history of renal failure liver isms are normal apparently culture was done in the ER of patient was started on vancomycin admit to the hospital infectious he was consulted for further management of antibiotic therapy Past Medical History Past Medical History: Coronary Artery Disease (CAD), Cancer, Heart Failure, CVA/TIA, Diabetes Mellitus, Eye Disorder, Hypertension, Myocardial Infarction ([place]), Renal Disease, Respiratory Disorder, Sleep Apnea/CPAP/BIPAP, Thyroid Disorder Additional Past Medical History / Comment(s): unhealing sore left index finger, neuropathy bilateral lower extremity/feet, bilateral eye diabetic retinopathy/poor vision/multiple injections, ESRD with hemodialysis M/W/F from 6:15 to 11:00, anemia, "mini strokes" x2, AVANI with CPap use, occasional low back pain/disc disease, gout, hypothyroid Last Myocardial Infarction Date:: 04/19/23 History of Any Multi-Drug Resistant Organisms: MRSA Year Discovered:: 12/10/21 MDRO Source:: Finger-Right 5th Past Surgical History: Adenoidectomy, Bariatric Surgery, Cholecystectomy, Heart Catheterization, Heart Catheterization With Stent, Orthopedic Surgery, Tonsillectomy Additional Past Surgical History / Comment(s): 10/22/20 PCI with stents x2, lap banding, FX of right ankle repair pins / plate, fistual lt arm jul 2018, lt shoulder sx (d/t separation), colonoscopies, bilateral cataract removals/lens implants. LIF surgery 08/11/21 R LEG stacey placed January 2023 04/19/23 3 stents Past Anesthesia/Blood Transfusion Reactions: Motion Sickness Additional Past Anesthesia/Blood Transfusion Reaction / Comm: CLAUSTERPHOBIA Date of Last Stent Placement:: 04/19/23 Past Psychological History: Anxiety Additional Psychological History / Comment(s): Pt resides with his spouse. He no longer drives d/t vision loss. His spouse drives and organizes his medications for him. He has a walker and uses a wheelchair if going distances (dialysis days). Smoking Status: Former smoker Past Alcohol Use History: None Reported Additional Past Alcohol Use History / Comment(s): Patient was a smoker of 2-3 packs per day for 35 years and quit in 2006. Past Drug Use History: None Reported - Past Family History Mother History Unknown: Yes Family Medical History: Coronary Artery Disease (CAD), Myocardial Infarction ([place]) Additional Family Medical History / Comment(s): Mother at age 58 from multiple sclerosis Father Family Medical History: CVA/TIA, Myocardial Infarction ([place]) Additional Family Medical History / Comment(s): Father had history of [place] and CVA followed by a second [place] and CVA and at age 65. Brother(s) Additional Family Medical History / Comment(s): . Medications and Allergies Home Medications Medication Instructions Recorded Confirmed Type Levothyroxine Sodium 100 mcg PO DAILY 07/06/17 01/25/24 History Torsemide [Demadex] 40 mg PO DAILY 09/10/19 01/25/24 History HYDROcodone/APAP 10-325MG [[place] 1 tab PO 5XD PRN 11/24/20 01/25/24 History 10-325] Insulin Regular, Human [NovoLIN R 8 - 20 unit SQ ACHS PRN 11/24/20 01/25/24 History Flexpen] FLUoxetine HCL [PROzac] 40 mg PO DAILY 30 Days #30 cap 10/16/22 01/25/24 Rx Apixaban [Eliquis] 2.5 mg PO BID 02/16/23 01/25/24 History carvediloL [Coreg] 6.25 mg PO TID #60 tab 04/25/23 01/25/24 Rx Atorvastatin [Lipitor] 40 mg PO HS 07/16/23 01/25/24 History Calcium Acetate [PhosLo] 667 mg PO AC-TID 07/16/23 01/25/24 History Calcium Acetate [PhosLo] 667 mg PO DAILY PRN 07/16/23 01/25/24 History Insulin Regular, Human [NovoLIN R See Protocol SQ ACHS PRN 07/16/23 01/25/24 History Flexpen] Amitriptyline HCl [Elavil] 25 mg PO HS PRN 11/23/23 01/25/24 History Folic Acid/Vit B Complex and C 0.8 mg PO DAILY 11/23/23 01/25/24 History [Bryanna-Olimpia Tablet] Insulin Detemir [Levemir Flexpen] 25 - 30 units SQ HS 11/23/23 01/25/24 History LORazepam 1 mg PO BID PRN 11/23/23 01/25/24 History Midodrine HCl [ProAmatine] 10 mg PO AC-TID PRN 11/23/23 01/25/24 History Aspirin 81 mg PO DAILY 30 Days #30 tab 11/26/23 01/25/24 Rx Clopidogrel [Plavix] 75 mg PO DAILY 90 Days #90 tab 11/26/23 01/25/24 Rx Midodrine HCl [ProAmatine] 15 mg PO MOWEFR@0530 01/25/24 01/25/24 History Allergies Allergy/AdvReac Type Severity Reaction Status Date / Time No Known Allergies Allergy Verified 01/25/24 16:51 Physical Exam Vitals: Vital Signs Temp Pulse Pulse Resp BP BP Pulse Ox 01/26/24 09:40 101 H 109/72 100 01/26/24 07:58 97.7 F 92 16 87/54 100 01/26/24 06:09 63 93/54 01/26/24 03:11 97.4 F L 98 18 104/64 99 01/25/24 19:47 98.0 F 90 16 112/71 99 01/25/24 18:32 82 18 118/61 97 01/25/24 17:31 84 18 116/66 96 01/25/24 13:38 97.6 F 88 18 136/81 99 Intake and Output 01/25/24 01/26/24 01/26/24 22:59 06:59 14:59 Intake Total 260 Balance 260 Intake: Oral 260 Other: # Voids 0 # Bowel Movements 1 1 Weight 126 kg Results CBC & Chem 7: 01/26/24 06:08 01/26/24 06:08 Labs: Abnormal Lab Results - Last 24 Hours (Table) 01/25/24 01/25/24 01/25/24 Range/Units 14:55 14:55 21:17 RBC 3.73 L (4.30-5.90) m/uL Hgb 12.0 L (13.0-17.5) gm/dL Hct 38.0 L (39.0-53.0) % MCV 101.8 H (80.0-100.0) fL MCH (27.0-32.0) pg MCHC (32.0-37.0) g/dL Plt Count 118 L (150-450) k/uL Lymphocytes # 0.7 L (1.0-4.8) k/uL Sodium 134 L (137-145) mmol/L Chloride 94 L (98-107) mmol/L BUN 23 H (9-20) mg/dL Creatinine 3.04 H (0.66-1.25) mg/dL Glucose 191 H (74-99) mg/dL POC Glucose (mg/dL) 191 H (70-110) mg/dL Hemoglobin A1c (<=6.0) % AST 16 L (17-59) U/L 01/26/24 01/26/24 01/26/24 Range/Units 05:54 06:08 06:08 RBC 3.61 L (4.30-5.90) m/uL Hgb 11.7 L (13.0-17.5) gm/dL Hct 37.0 L (39.0-53.0) % MCV 102.5 H (80.0-100.0) fL MCH 32.4 H (27.0-32.0) pg MCHC 31.6 L (32.0-37.0) g/dL Plt Count (150-450) k/uL Lymphocytes # (1.0-4.8) k/uL Sodium (137-145) mmol/L Chloride (98-107) mmol/L BUN (9-20) mg/dL Creatinine (0.66-1.25) mg/dL Glucose (74-99) mg/dL POC Glucose (mg/dL) 115 H (70-110) mg/dL Hemoglobin A1c 7.1 H (<=6.0) % AST (17-59) U/L Assessment and Plan Plan: 1patient with multiple wound to the left upper extremity admitted to the dog [facility] or concerning for possible folliculitis likely from a skin mickie such as staph or strep and failing outpatient oral by therapy. 2patient also have right big toe diabetic foot ulcer and a possible component of cellulitis likely forming gram-positive skin mickie 3-we will request for culture from both the left upper extremity wound as well as right big toe 4-check x-ray of the right foot attention to the right big toe 5-vancomycin pharmacy to dose target trough of 15 while waiting for the workup to be completed We will follow on clinical condition and cultures to further adjust medication if needed Thank you for this consultation we will follow the patient along with you Dictation was produced using [employer] dictation software. please excuse any grammatical, word or spelling errors. Time with Patient: Greater than 30
--- NOTE | 2024-01-26 22:59 | P.HPIM ---
History of Present Illness H&P Date: 01/26/24 This is a pleasant 63 year old male with medical history significant for CAD, severe cardiomyopathy, status post stenting by Dr. Jimenez most recently in April 2023 of the LAD, history of paroxysmal atrial fibrillation, end-stage renal disease maintained on hemodialysis MWF. Patient comes in to the ER with complaints of multiple wounds on his upper and lower extremities which patient started after he was scratched by his puppy. Patient also has noticed increased swelling to the right foot with bleeding from the great toe. Patient is unsure if he sustained any trauma to the foot. He has denied fever or chills at home. The wound was cultured in the ER. Foot xray reveals no obvious lytic destruction in either foot to suggest a contiguous osteomyelitis. There is significant periprosthetic lucency in the right hindfoot especially within the calcaneus related to the patients large retrograde nail. Patient has been started on empiric antibiotics with IV vancomycin and ID on consultation. Nephrology on consultation and patient is scheduled for usual hemodialysis session tomorrow. REVIEW OF SYSTEMS: CONSTITUTIONAL: No fever, no malaise, no fatigue. HEENT: No recent visual problems or hearing problems. Denied any sore throat. CARDIOVASCULAR: No chest pain, orthopnea, PND, no palpitations, no syncope. PULMONARY: No shortness of breath, no cough, no hemoptysis. GASTROINTESTINAL: No diarrhea, no nausea, no vomiting, no abdominal pain. NEUROLOGICAL: No headaches, no weakness, no numbness. HEMATOLOGICAL: Denies any bleeding or petechiae. GENITOURINARY: Denies any burning micturition, frequency, or urgency. MUSCULOSKELETAL/RHEUMATOLOGICAL: Denies any joint pain, swelling, or any muscle pain. ENDOCRINE: Denies any polyuria or polydipsia. The rest of the 14-point review of systems is negative. PHYSICAL EXAMINATION: GENERAL: The patient is alert and oriented x3, not in any acute distress. Well developed, well nourished. HEENT: Pupils are round and equally reacting to light. EOMI. No scleral icterus. No conjunctival pallor. Normocephalic, atraumatic. No pharyngeal erythema. No thyromegaly. CARDIOVASCULAR: S1 and S2 present. No murmurs, rubs, or gallops. PULMONARY: Chest is clear to auscultation, no wheezing or crackles. ABDOMEN: Soft, nontender, nondistended, normoactive bowel sounds. No palpable organomegaly. MUSCULOSKELETAL: No joint swelling or deformity. EXTREMITIES: No cyanosis, clubbing, or pedal edema. Multiple finger amputations bilaterally NEUROLOGICAL: Gross neurological examination did not reveal any focal deficits. SKIN: No rashes. Multiple lesions open to the right and left upper extremity. Sanguineous drainage from the right great toe Assessment and Plan Right foot cellulitis and right toe wound likely from trauma. Cultures pending on IV vancomycin and ID consulted. 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 Dr. Mil MD I have performed a history and physical examination and medical decision making of this patient, discussed the same with the dictator, and agree with the dictators assessment and plan as written, documented as a scribe. Based on total visit time, I have performed more than 50% of this visit. Past Medical History Past Medical History: Coronary Artery Disease (CAD), Cancer, Heart Failure, CVA/TIA, Diabetes Mellitus, Eye Disorder, Hypertension, Myocardial Infarction ([place]), Renal Disease, Respiratory Disorder, Sleep Apnea/CPAP/BIPAP, Thyroid Disorder Additional Past Medical History / Comment(s): unhealing sore left index finger, neuropathy bilateral lower extremity/feet, bilateral eye diabetic retinopathy/poor vision/multiple injections, ESRD with hemodialysis M/W/F from 6:15 to 11:00, anemia, "mini strokes" x2, AVANI with CPap use, occasional low back pain/disc disease, gout, hypothyroid Last Myocardial Infarction Date:: 04/19/23 History of Any Multi-Drug Resistant Organisms: MRSA Date of last positivie culture/infection: 12/10/21 MDRO Source:: Finger-Right 5th Past Surgical History: Adenoidectomy, Bariatric Surgery, Cholecystectomy, Heart Catheterization, Heart Catheterization With Stent, Orthopedic Surgery, Tonsillectomy Additional Past Surgical History / Comment(s): 10/22/20 PCI with stents x2, lap banding, FX of right ankle repair pins / plate, fistual lt arm jul 2018, lt shoulder sx (d/t separation), colonoscopies, bilateral cataract removals/lens implants. LIF surgery 08/11/21 R LEG stacey placed January 2023 04/19/23 3 stents Past Anesthesia/Blood Transfusion Reactions: Motion Sickness Additional Past Anesthesia/Blood Transfusion Reaction / Comment(s): CLAUSTERPHOBIA Date of Last Stent Placement:: 04/19/23 Past Psychological History: Anxiety Additional Psychological History / Comment(s): Pt resides with his spouse. He no longer drives d/t vision loss. His spouse drives and organizes his medications for him. He has a walker and uses a wheelchair if going distances (dialysis days). Smoking Status: Former smoker Past Alcohol Use History: None Reported Additional Past Alcohol Use History / Comment(s): Patient was a smoker of 2-3 packs per day for 35 years and quit in 2006. Past Drug Use History: None Reported - Past Family History Mother History Unknown: Yes Family Medical History: Coronary Artery Disease (CAD), Myocardial Infarction ([place]) Additional Family Medical History / Comment(s): Mother at age 58 from multiple sclerosis Father Family Medical History: CVA/TIA, Myocardial Infarction ([place]) Additional Family Medical History / Comment(s): Father had history of [place] and CVA followed by a second [place] and CVA and at age 65. Brother(s) Additional Family Medical History / Comment(s): . Medications and Allergies Home Medications Medication Instructions Recorded Confirmed Type Levothyroxine Sodium 100 mcg PO DAILY 07/06/17 01/25/24 History Torsemide [Demadex] 40 mg PO DAILY 09/10/19 01/25/24 History HYDROcodone/APAP 10-325MG [[place] 1 tab PO 5XD PRN 11/24/20 01/25/24 History 10-325] Insulin Regular, Human [NovoLIN R 8 - 20 unit SQ ACHS PRN 11/24/20 01/25/24 History Flexpen] FLUoxetine HCL [PROzac] 40 mg PO DAILY 30 Days #30 cap 10/16/22 01/25/24 Rx Apixaban [Eliquis] 2.5 mg PO BID 02/16/23 01/25/24 History carvediloL [Coreg] 6.25 mg PO TID #60 tab 04/25/23 01/25/24 Rx Atorvastatin [Lipitor] 40 mg PO HS 07/16/23 01/25/24 History Calcium Acetate [PhosLo] 667 mg PO AC-TID 07/16/23 01/25/24 History Calcium Acetate [PhosLo] 667 mg PO DAILY PRN 07/16/23 01/25/24 History Insulin Regular, Human [NovoLIN R See Protocol SQ ACHS PRN 07/16/23 01/25/24 History Flexpen] Amitriptyline HCl [Elavil] 25 mg PO HS PRN 11/23/23 01/25/24 History Folic Acid/Vit B Complex and C 0.8 mg PO DAILY 11/23/23 01/25/24 History [Bryanna-Olimpia Tablet] Insulin Detemir [Levemir Flexpen] 25 - 30 units SQ HS 11/23/23 01/25/24 History LORazepam 1 mg PO BID PRN 11/23/23 01/25/24 History Midodrine HCl [ProAmatine] 10 mg PO AC-TID PRN 11/23/23 01/25/24 History Aspirin 81 mg PO DAILY 30 Days #30 tab 11/26/23 01/25/24 Rx Clopidogrel [Plavix] 75 mg PO DAILY 90 Days #90 tab 11/26/23 01/25/24 Rx Midodrine HCl [ProAmatine] 15 mg PO MOWEFR@0530 01/25/24 01/25/24 History Allergies Allergy/AdvReac Type Severity Reaction Status Date / Time No Known Allergies Allergy Verified 01/25/24 16:51 Physical Exam Vitals: Vital Signs Temp Pulse Resp BP Pulse Ox 01/26/24 15:00 97.9 F 85 16 92/58 97 01/26/24 12:36 97 99/65 01/26/24 09:40 101 H 109/72 100 01/26/24 07:58 97.7 F 92 16 87/54 100 01/26/24 06:09 63 93/54 01/26/24 03:11 97.4 F L 98 18 104/64 99 Intake and Output 01/26/24 01/26/24 01/26/24 06:59 14:59 22:59 Intake Total 520 240 Balance 520 240 Intake: Oral 520 240 Other: # Voids 0 1 # Bowel Movements 1 1 Weight 126 kg Results CBC & Chem 7: 01/26/24 06:08 01/26/24 06:08 Labs: Abnormal Lab Results - Last 24 Hours (Table) 01/26/24 01/26/24 01/26/24 Range/Units 05:54 06:08 06:08 RBC 3.61 L (4.40-5.60) X 10*6/uL Hgb 11.7 L (13.0-17.0) g/dL Hct 37.0 L (39.6-50.0) % MCV 102.5 H (80.0-97.0) FL MCH 32.4 H (27.0-32.0) pg MCHC 31.6 L (32.0-37.0) g/dL Chloride (96-109) mmol/L Anion Gap (4.00-12.00) mmol/L BUN (9.0-27.0) mg/dL Creatinine (0.6-1.5) mg/dL Est GFR (CKD-EPI) (>=60) BUN/Creatinine Ratio (12.00-20.00) Ratio Glucose (70-110) mg/dL POC Glucose (mg/dL) 115 H (70-110) mg/dL Hemoglobin A1c 7.1 H (<=6.0) % AST (14-35) U/L Albumin (3.8-4.9) g/dL Albumin/Globulin Ratio (1.60-3.17) Ratio 01/26/24 01/26/24 01/26/24 Range/Units 06:08 12:03 17:11 RBC (4.40-5.60) X 10*6/uL Hgb (13.0-17.0) g/dL Hct (39.6-50.0) % MCV (80.0-97.0) FL MCH (27.0-32.0) pg MCHC (32.0-37.0) g/dL Chloride 93 L (96-109) mmol/L Anion Gap 12.70 H (4.00-12.00) mmol/L BUN 29.8 H (9.0-27.0) mg/dL Creatinine 4.3 H (0.6-1.5) mg/dL Est GFR (CKD-EPI) 15 L (>=60) BUN/Creatinine Ratio 6.93 L (12.00-20.00) Ratio Glucose 118 H (70-110) mg/dL POC Glucose (mg/dL) 139 H 268 H (70-110) mg/dL Hemoglobin A1c (<=6.0) % AST 13 L (14-35) U/L Albumin 3.7 L (3.8-4.9) g/dL Albumin/Globulin Ratio 1.23 L (1.60-3.17) Ratio 01/26/24 Range/Units 20:41 RBC (4.40-5.60) X 10*6/uL Hgb (13.0-17.0) g/dL Hct (39.6-50.0) % MCV (80.0-97.0) FL MCH (27.0-32.0) pg MCHC (32.0-37.0) g/dL Chloride (96-109) mmol/L Anion Gap (4.00-12.00) mmol/L BUN (9.0-27.0) mg/dL Creatinine (0.6-1.5) mg/dL Est GFR (CKD-EPI) (>=60) BUN/Creatinine Ratio (12.00-20.00) Ratio Glucose (70-110) mg/dL POC Glucose (mg/dL) 159 H (70-110) mg/dL Hemoglobin A1c (<=6.0) % AST (14-35) U/L Albumin (3.8-4.9) g/dL Albumin/Globulin Ratio (1.60-3.17) Ratio Assessment and Plan Time with Patient: Less than 30
[2024-01-27 03:33] LABS: Glucose,Whole Blood 108 mg/dL (70-110)
[2024-01-27] MEDS: MIDODRINE 5 MG TAB PO SCH (03:52)
[2024-01-27 06:30] LABS: Glucose,Whole Blood 144 mg/dL (70-110)
[2024-01-27 07:03] LABS: African American GFR (CKD) 11 (>60 ml/min/1.73 sqM); Anion Gap 12 mmol/L; Blood Urea Nitrogen 48 mg/dL (9-20); Calcium 8.5 mg/dL (8.4-10.2); Carbon Dioxide 27 mmol/L (22-30); Chloride 94 mmol/L (98-107); Glucose 148 mg/dL (74-99); Magnesium 1.6 mg/dL (1.6-2.3); Non-African American GFR(CKD) 10 (>60 ml/min/1.73 sqM); Potassium 4.8 mmol/L (3.5-5.1); Sodium 133 mmol/L (137-145)
[2024-01-27 07:46] LABS: Vancomycin,Random 27.2 ug/mL
[2024-01-27] MEDS: MIDODRINE 5 MG TAB PO STA (09:15)
[2024-01-27] MEDS ORDERED: Magnesium Replacement Protocol 1 EACH MISC MISCELLANE PRN (10:02)
--- NOTE | 2024-01-27 11:12 | P.CONS ---
History of Present Illness - Reason for Consult Consult date: 01/27/24 wound care - History of Present Illness This is a 63-year-old patient who has been to the wound care center previously however he does not follow with the wound care center he follows with Dr. Madera at his office. Patient has multiple ulcerations to bilateral upper arms with fat layer exposure related to his dog. Patient also has a open ulceration to the right great toe x-ray did not show any osteomyelitis however the ulceration has significant amount of slough and nonviable tissue ecchymosis and erythema noted. Significant edema to right foot. Patient has smaller ulcerations on the second third fourth and fifth digits that have eschar Center not open at this time. Patient has a open ulceration to the left foot fifth digit medial aspect with significant amount of serosanguineous drainage fat layer exposure and significant amount of nonviable tissue. Patient has history of diabetes and chronic kidney disease currently on dialysis. Review Of Systems: Constitutional: No fever, no chills, no night sweats. No weight change. No weakness, fatigue or lethargy. No daytime sleepiness. Integumentary:reports wounds, no lesions. No rash or pruritus. No unusual bruising. No change in hair or nails. Physical exam: General Appearance: Alert, cooperative, no distress, appears stated age. Skin: See HPI all other Skin color, texture, tugor normal, no rashes or lesions. Neurologic: Alert oriented x3 Assessment: 1. Nonhealing ulceration with fat layer exposure right great toe 2. Nonhealing ulceration with fat layer exposure left fifth digit 3. Diabetic foot ulcer 4. Multiple nonhealing ulcerations to other sites with fat layer exposure 5. Diabetes with skin ulceration Plan: 1. Bilateral lower extremity ulcerations: Apply absorptive silver moistened if dry, gauze, rolled gauze and secure with paper tape. Bilateral upper extremity ulcerations apply honey gel dry gauze roll gauze and secure with paper tape. Consideration for a surgical consult related to the right great toe. X-ray did not show osteomyelitis. Thank you for the consultation any questions please contact the wound care cent er DNP note has been reviewed and discussed with Dr. Lucas and the impression and plan of care has been directed as dictated. Past Medical History Past Medical History: Coronary Artery Disease (CAD), Cancer, Heart Failure, CVA/TIA, Diabetes Mellitus, Eye Disorder, Hypertension, Myocardial Infarction ([place]), Renal Disease, Respiratory Disorder, Sleep Apnea/CPAP/BIPAP, Thyroid Disorder Additional Past Medical History / Comment(s): unhealing sore left index finger, neuropathy bilateral lower extremity/feet, bilateral eye diabetic retinopathy/poor vision/multiple injections, ESRD with hemodialysis M/W/F from 6:15 to 11:00, anemia, "mini strokes" x2, AVANI with CPap use, occasional low back pain/disc disease, gout, hypothyroid Last Myocardial Infarction Date:: 04/19/23 History of Any Multi-Drug Resistant Organisms: MRSA Year Discovered:: 12/10/21 MDRO Source:: Finger-Right 5th Past Surgical History: Adenoidectomy, Bariatric Surgery, Cholecystectomy, Heart Catheterization, Heart Catheterization With Stent, Orthopedic Surgery, Tonsillectomy Additional Past Surgical History / Comment(s): 10/22/20 PCI with stents x2, lap banding, FX of right ankle repair pins / plate, fistual lt arm jul 2018, lt shoulder sx (d/t separation), colonoscopies, bilateral cataract removals/lens implants. LIF surgery 08/11/21 R LEG satcey placed January 2023 04/19/23 3 stents Past Anesthesia/Blood Transfusion Reactions: Motion Sickness Additional Past Anesthesia/Blood Transfusion Reaction / Comm: CLAUSTERPHOBIA Date of Last Stent Placement:: 04/19/23 Past Psychological History: Anxiety Additional Psychological History / Comment(s): Pt resides with his spouse. He no longer drives d/t vision loss. His spouse drives and organizes his medications for him. He has a walker and uses a wheelchair if going distances (dialysis days). Smoking Status: Former smoker Past Alcohol Use History: None Reported Additional Past Alcohol Use History / Comment(s): Patient was a smoker of 2-3 packs per day for 35 years and quit in 2006. Past Drug Use History: None Reported - Past Family History Mother History Unknown: Yes Family Medical History: Coronary Artery Disease (CAD), Myocardial Infarction ([place]) Additional Family Medical History / Comment(s): Mother at age 58 from multiple sclerosis Father Family Medical History: CVA/TIA, Myocardial Infarction ([place]) Additional Family Medical History / Comment(s): Father had history of [place] and CVA followed by a second [place] and CVA and at age 65. Brother(s) Additional Family Medical History / Comment(s): . Medications and Allergies Home Medications Medication Instructions Recorded Confirmed Type Levothyroxine Sodium 100 mcg PO DAILY 07/06/17 01/25/24 History Torsemide [Demadex] 40 mg PO DAILY 09/10/19 01/25/24 History HYDROcodone/APAP 10-325MG [[place] 1 tab PO 5XD PRN 11/24/20 01/25/24 History 10-325] Insulin Regular, Human [NovoLIN R 8 - 20 unit SQ ACHS PRN 11/24/20 01/25/24 History Flexpen] FLUoxetine HCL [PROzac] 40 mg PO DAILY 30 Days #30 cap 10/16/22 01/25/24 Rx Apixaban [Eliquis] 2.5 mg PO BID 02/16/23 01/25/24 History carvediloL [Coreg] 6.25 mg PO TID #60 tab 04/25/23 01/25/24 Rx Atorvastatin [Lipitor] 40 mg PO HS 07/16/23 01/25/24 History Calcium Acetate [PhosLo] 667 mg PO AC-TID 07/16/23 01/25/24 History Calcium Acetate [PhosLo] 667 mg PO DAILY PRN 07/16/23 01/25/24 History Insulin Regular, Human [NovoLIN R See Protocol SQ ACHS PRN 07/16/23 01/25/24 History Flexpen] Amitriptyline HCl [Elavil] 25 mg PO HS PRN 11/23/23 01/25/24 History Folic Acid/Vit B Complex and C 0.8 mg PO DAILY 11/23/23 01/25/24 History [Bryanna-Olimpia Tablet] Insulin Detemir [Levemir Flexpen] 25 - 30 units SQ HS 11/23/23 01/25/24 History LORazepam 1 mg PO BID PRN 11/23/23 01/25/24 History Midodrine HCl [ProAmatine] 10 mg PO AC-TID PRN 11/23/23 01/25/24 History Aspirin 81 mg PO DAILY 30 Days #30 tab 11/26/23 01/25/24 Rx Clopidogrel [Plavix] 75 mg PO DAILY 90 Days #90 tab 11/26/23 01/25/24 Rx Midodrine HCl [ProAmatine] 15 mg PO MOWEFR@0530 01/25/24 01/25/24 History Allergies Allergy/AdvReac Type Severity Reaction Status Date / Time No Known Allergies Allergy Verified 01/25/24 16:51 Physical Exam Vitals: Vital Signs Temp Pulse Resp BP Pulse Ox 01/27/24 08:00 97.3 F L 86 16 106/71 100 01/27/24 04:40 121/78 01/27/24 02:00 97.8 F 59 L 81/45 95 01/26/24 20:00 97.5 F L 100 95/64 99 01/26/24 15:00 97.9 F 85 16 92/58 97 01/26/24 12:36 97 99/65 Intake and Output 01/26/24 01/27/24 01/27/24 22:59 06:59 14:59 Intake Total 240 236 Output Total 300 Balance -60 236 Intake: Oral 240 236 Output: Urine 300 Other: # Voids 1 # Bowel Movements 1 0 Results CBC & Chem 7: 01/26/24 06:08 01/27/24 06:33 Labs: Abnormal Lab Results - Last 24 Hours (Table) 01/26/24 01/26/24 01/26/24 Range/Units 06:08 12:03 17:11 Sodium (137-145) mmol/L Chloride 93 L (96-109) mmol/L Anion Gap 12.70 H (4.00-12.00) mmol/L BUN 29.8 H (9.0-27.0) mg/dL Creatinine 4.3 H (0.6-1.5) mg/dL Est GFR (CKD-EPI) 15 L (>=60) BUN/Creatinine Ratio 6.93 L (12.00-20.00) Ratio Glucose 118 H (70-110) mg/dL POC Glucose (mg/dL) 139 H 268 H (70-110) mg/dL AST 13 L (14-35) U/L Albumin 3.7 L (3.8-4.9) g/dL Albumin/Globulin Ratio 1.23 L (1.60-3.17) Ratio 01/26/24 01/27/24 01/27/24 Range/Units 20:41 06:29 06:33 Sodium 133 L (137-145) mmol/L Chloride 94 L (96-109) mmol/L Anion Gap (4.00-12.00) mmol/L BUN 48 H (9.0-27.0) mg/dL Creatinine 5.61 H (0.6-1.5) mg/dL Est GFR (CKD-EPI) (>=60) BUN/Creatinine Ratio (12.00-20.00) Ratio Glucose 148 H (70-110) mg/dL POC Glucose (mg/dL) 159 H 144 H (70-110) mg/dL AST (14-35) U/L Albumin (3.8-4.9) g/dL Albumin/Globulin Ratio (1.60-3.17) Ratio Assessment and Plan (1) Type 2 diabetes mellitus with foot ulcer Current Visit: Yes Status: Acute Code(s): E11.621 - TYPE 2 DIABETES MELLITUS WITH FOOT ULCER; L97.509 - NON-PRESSURE CHRONIC ULCER OTH PRT UNSP FOOT W UNSP SEVERITY SNOMED Code(s): 517639700 (2) Non-pressure chronic ulcer of other part of left foot with fat layer exposed Current Visit: Yes Status: Acute Code(s): L97.522 - NON-PRS CHRONIC ULCER OTH PRT LEFT FOOT W FAT LAYER EXPOSED SNOMED Code(s): 85176345144142491 (3) Non-pressure chronic ulcer of other part of right foot with fat layer exposed Current Visit: Yes Status: Acute Code(s): L97.512 - NON-PRS CHRONIC ULCER OTH PRT RIGHT FOOT W FAT LAYER EXPOSED SNOMED Code(s): 50131167589995139 (4) Diabetes with skin ulcer Current Visit: No Status: Acute Code(s): E11.622 - TYPE 2 DIABETES MELLITUS WITH OTHER SKIN ULCER; L98.499 - NON-PRESSURE CHRONIC ULCER OF SKIN OF SITES W UNSP SEVERITY SNOMED Code(s): 74502996 (5) Non-healing ulcer of multiple sites with fat layer exposed Current Visit: No Status: Acute Code(s): L98.492 - NON-PRS CHRONIC ULCER OF SKIN OF SITES W FAT LAYER EXPOSED SNOMED Code(s): 33492775
[2024-01-27 12:19] LABS: Glucose,Whole Blood 122 mg/dL (70-110)
--- NOTE | 2024-01-27 12:54 | P.PN ---
Subjective patient is seen for follow-up for end-stage renal disease. Currently seen on hemodialysis. Blood pressure was low this morning and patient has received midodrine. Goal UF about 1 L today. Objective - Vital Signs Vital signs: Vital Signs Temp 97.3 F L 01/27/24 08:00 Pulse 86 01/27/24 08:00 Resp 16 01/27/24 08:00 BP 106/71 01/27/24 08:00 Pulse Ox 100 01/27/24 08:00 FiO2 Intake & Output 01/26/24 01/27/24 01/27/24 18:59 06:59 18:59 Intake Total 760 236 Output Total 300 Balance 760 -300 236 Weight 126 kg Intake: Oral 760 236 Output: Urine 300 Other: # Voids 1 1 # Bowel Movements 1 0 - Exam patient is awake, comfortable, in no acute distress Alert oriented 3 Abdomen is soft obese Examination lower extremity shows edema of both feet worse on the right foot with bleeding noted from the right first toe. both legs are wrapped. Multiple amputations of fingers on both hands. - Labs CBC & Chem 7: 01/26/24 06:08 01/27/24 06:33 Labs: Abnormal Lab Results - Last 24 Hours (Table) 01/26/24 01/26/24 01/27/24 Range/Units 17:11 20:41 06:29 Sodium (137-145) mmol/L Chloride (98-107) mmol/L BUN (9-20) mg/dL Creatinine (0.66-1.25) mg/dL Glucose (74-99) mg/dL POC Glucose (mg/dL) 268 H 159 H 144 H (70-110) mg/dL 01/27/24 01/27/24 Range/Units 06:33 12:18 Sodium 133 L (137-145) mmol/L Chloride 94 L (98-107) mmol/L BUN 48 H (9-20) mg/dL Creatinine 5.61 H (0.66-1.25) mg/dL Glucose 148 H (74-99) mg/dL POC Glucose (mg/dL) 122 H (70-110) mg/dL Assessment and Plan Assessment: 1. End-stage renal disease on hemodialysis on a Tuesday vent is a Tuesday sched ule 2. Right foot cellulitis maintained on antibiotics 3. Hypertension with C daily stage V 4. CK D mineral bone disorder Plan: hemodialysis on Tuesday schedule Continue with antibiotics Continue with phosphate binders.
[2024-01-27] MEDS: MAGNESIUM SULFATE-D5W PMX 1 GM in DEXTROSE/WATER 1 100ML.BAG IVPB SCH (13:54)
[2024-01-27] MEDS: FAMOTIDINE 20 MG TAB PO SCH (13:54)
--- NOTE | 2024-01-27 14:28 | XR ---
EXAMINATION TYPE: XR foot complete RT DATE OF EXAM: 01/27/2024 COMPARISON: NONE HISTORY: 63-year-old male right big toe ulcer, pain TECHNIQUE: 3 views FINDINGS: Retrograde intramedullary nail and screw fixation redemonstrated across subtalar joint/hind foot, tibiotalar joint. Of note, the posterior calcaneal screw is fractured at the level of the stacey. Prominent periprosthetic lucency measuring up to 5 mm remains. There is diffuse soft tissue swelling. Vascular calcifications are also present. With the provided history, dressing and is now noted at th e great toe. No discrete osteolysis is identified here. Mild degenerative change first MTP joint. IMPRESSION: 1. Wound and overlying dressing at the great toe. No radiographic evidence for a contiguous osteomyel itis here at this time. 2. On the present exam, we note that the AP directed calcaneal screw is broken at the level of the ro d. Periprosthetic lucency here up to 5 mm is similar. Please refer to report from 01/25/2024 for [facility] er details.
[2024-01-27] MEDS: HYDROmorphone 1 MG/ML 1 ML SYRINGE IVP STA (15:44)
--- NOTE | 2024-01-27 16:41 | P.PN ---
Subjective Progress Note Date: 01/27/24 Principal diagnosis: Reason for follow-up is left upper extremity and right big toe Patient is a 63-year-old male with a past medical history significant for coronary artery disease heart failure with CVA TIA diabetes mellitus hypertension [place] patient did have a multiple limitation to bilateral hand fingers because of infection patient now presenting to the hospital with multiple open wounds to the left upper extremity, failing outpatient antibiotic therapy. On today's evaluation that is 01/27/2024, Patient is afebrile patient is currently on room air and denies having any shortness of breath, the patient denies any chest pain or cough, the patient denies any nausea vomiting did not have any abdominal pain and no diarrhea denies any worsening pain to the left upper extremity or right big toe. Patient did have a creatinine 5.61 her Vanco random is 27.2 Objective - Vital Signs Vital signs: Vital Signs Temp 97.3 F L 01/27/24 08:00 Pulse 86 01/27/24 08:00 Resp 16 01/27/24 08:00 BP 106/71 01/27/24 08:00 Pulse Ox 100 01/27/24 08:00 FiO2 Intake & Output 01/26/24 01/27/24 01/27/24 18:59 06:59 18:59 Intake Total 760 236 Output Total 300 Balance 760 -300 236 Weight 126 kg Intake: Oral 760 236 Output: Urine 300 Other: # Voids 1 1 # Bowel Movements 1 0 - Exam GENERAL DESCRIPTION: Middle-age male lying in bed in no distress RESPIRATORY SYSTEM: Unlabored breathing , decreased breath sounds at bases HEART: S1 S2 regular rate and rhythm , ABDOMEN: Soft , no tenderness EXTREMITIES: Left upper extremity right big toe wound currently dressed - Labs CBC & Chem 7: 01/26/24 06:08 01/27/24 06:33 Labs: Abnormal Lab Results - Last 24 Hours (Table) 01/26/24 01/26/24 01/26/24 Range/Units 06:08 12:03 17:11 Sodium (137-145) mmol/L Chloride 93 L (96-109) mmol/L Anion Gap 12.70 H (4.00-12.00) mmol/L BUN 29.8 H (9.0-27.0) mg/dL Creatinine 4.3 H (0.6-1.5) mg/dL Est GFR (CKD-EPI) 15 L (>=60) BUN/Creatinine Ratio 6.93 L (12.00-20.00) Ratio Glucose 118 H (70-110) mg/dL POC Glucose (mg/dL) 139 H 268 H (70-110) mg/dL AST 13 L (14-35) U/L Albumin 3.7 L (3.8-4.9) g/dL Albumin/Globulin Ratio 1.23 L (1.60-3.17) Ratio 01/26/24 01/27/24 01/27/24 Range/Units 20:41 06:29 06:33 Sodium 133 L (137-145) mmol/L Chloride 94 L (96-109) mmol/L Anion Gap (4.00-12.00) mmol/L BUN 48 H (9.0-27.0) mg/dL Creatinine 5.61 H (0.6-1.5) mg/dL Est GFR (CKD-EPI) (>=60) BUN/Creatinine Ratio (12.00-20.00) Ratio Glucose 148 H (70-110) mg/dL POC Glucose (mg/dL) 159 H 144 H (70-110) mg/dL AST (14-35) U/L Albumin (3.8-4.9) g/dL Albumin/Globulin Ratio (1.60-3.17) Ratio Assessment and Plan (1) Left arm cellulitis Current Visit: Yes Status: Acute Code(s): L03.114 - CELLULITIS OF LEFT UPPER LIMB SNOMED Code(s): 53160649661266485 (2) Type 2 diabetes mellitus with foot ulcer Current Visit: Yes Status: Acute Code(s): E11.621 - TYPE 2 DIABETES MELLITUS WITH FOOT ULCER; L97.509 - NON-PRESSURE CHRONIC ULCER OTH PRT UNSP FOOT W UNSP SEVERITY SNOMED Code(s): 065992923 Plan: 1patient with multiple wound to the left upper extremity admitted to the dog scratch or concerning for possible folliculitis likely from a skin mickie such as staph or strep and failing outpatient oral by therapy. 2patient also have right big toe diabetic foot ulcer and a possible component of cellulitis likely forming gram-positive skin mickie 3-culture has been obtained results will be followed 4- x-ray of the right foot did not mention any bony destruction to the right big toe 5-patient to continue with vancomycin pharmacy to dose target trough of 15 while waiting for the culture to finalize Dictation was produced using [employer] dictation software. please excuse any g rammatical, word or spelling errors. Time with Patient: Less than 30
--- NOTE | 2024-01-27 16:54 | XR ---
EXAMINATION TYPE: XR chest 2V DATE OF EXAM: 01/27/2024 4:43 PM CLINICAL INDICATION:Male, 63 years old with history of shortness of breath; H COMPARISON: Chest radiographs from 11/23/2023 TECHNIQUE: XR chest 2V Frontal and lateral views of the chest. FINDINGS: Lungs/Pleura: There is no evidence of pleural effusion, focal consolidation, or pneumothorax. Pulmonary vascularity: Pulmonary vascular congestion. Heart/mediastinum: Cardiomediastinal silhouette is enlarged and stable. Musculoskeletal: No acute osseous pathology. IMPRESSION: Cardiomegaly and mild pulmonary vascular congestion. Correlate with BNP for congestive heart failure.
[2024-01-27 17:25] LABS: Glucose,Whole Blood 193 mg/dL (70-110)
--- NOTE | 2024-01-27 18:33 | P.PN ---
Subjective Progress Note Date: 01/27/24 This is a pleasant 63 year old male with medical history significant for CAD, severe cardiomyopathy, status post stenting by Dr. Jimenez most recently in April 2023 of the LAD, history of paroxysmal atrial fibrillation, end-stage renal disease maintained on hemodialysis MWF. Patient comes in to the ER with complaints of multiple wounds on his upper and lower extremities which patient started after he was scratched by his puppy. Patient also has noticed increased swelling to the right foot with bleeding from the great toe. Patient is unsure if he sustained any trauma to the foot. He has denied fever or chills at home. The wound was cultured in the ER. Foot xray reveals no obvious lytic destruction in either foot to suggest a contiguous osteomyelitis. There is significant periprosthetic lucency in the right hindfoot especially within the calcaneus related to the patients large retrograde nail. Patient has been started on empiric antibiotics with IV vancomycin and ID on consultation. Nephrology on consultation and patient is scheduled for usual hemodialysis session tomorrow. 01/27/2024 Patient is evaluated today on the medical floor. Scheduled to undergo hemodialysis today. Received 15 mg of midodrine was having low blood pressures. Received an extra 10 mg of midodrine. Now up to 120s systolic. Patient was evaluated by wound care. Dressings are intact. Foot xray of the right ulcer re veals no radiographic evidence for a contiguous osteomyelitis. The AP directed calcaneal screw is broken at the level of the stacey. Periprosthetic lucency here up to 5 mm is similar. Patient has concerns with low blood pressure and wants to make sure he doesn't have a pericardial effusion. Review of Systems Constitutional: Denied any fatigue denied any fever. Cardio vascular: denied any chest pain, palpitations Gastrointestinal: denied any nausea, vomiting, diarrhea Pulmonary: Denied any shortness of breath cough Neurologic denied any new focal deficits All inpatient medications were reviewed and appropriate changes in these medications as dictated in the interval history and assessment and plan. PHYSICAL EXAMINATION: GENERAL: The patient is alert and oriented x3, not in any acute distress. Well developed, well nourished. HEENT: Pupils are round and equally reacting to light. EOMI. No scleral icterus. No conjunctival pallor. Normocephalic, atraumatic. No pharyngeal erythema. No t hyromegaly. CARDIOVASCULAR: S1 and S2 present. No murmurs, rubs, or gallops. PULMONARY: Chest is clear to auscultation, n Ramirez A1c has not beeno wheezing or crackles. ABDOMEN: Soft, nontender, nondistended, normoactive bowel sounds. No palpable organomegaly. MUSCULOSKELETAL: No joint swelling or deformity. EXTREMITIES: No cyanosis, clubbing, or pedal edema. Multiple finger amputations bilaterally NEUROLOGICAL: Gross neurological examination did not reveal any focal deficits. SKIN: No rashes. Multiple lesions open to the right and left upper extremity. Sanguineous drainage from the right great toe Assessment and Plan Right foot cellulitis and right toe wound concern for diabetic foot infection. Cultures pending on IV vancomycin and ID consulted. Wound care will be consulted Multiple wounds; open to bilateral upper and lower extremity End stage renal disease maintained on hemodialysis MWF Coronary artery disease with prior PCI aspirin and plavix resumed Cardiomyopathy: Multiple amputations to bilateral hands secondary to infection Right ankle fracture with surgical repair now with broken calcaneal screw Orthopedics consulted for evaluation Atrial fibrillation, paroxysmal anticoagulated with eliquis which has been resumed Diabetes Mellitus type 2 with diabetic neuropathy Hyperlipidemia continues on statin therapy History of TIA History of sleep apnea with cpap use Hypothyroidism Anxiety Hx of nicotine use GI prophylaxis DVT prophylaxis Full Code Local wound care recommended with absorptive silver moistened with gauze to lower extremity wounds and to the upper extremity wounds apply honey gel dry gauze. Vascular has been consulted for evaluation. ID following cultures remains on IV cefepime. Hemodialysis MWF. Due to decreased blood pressures carvedilol has been adjusted to metoprolol. The impression and plan of care has been dictated by Ingrid Schneider, Nurse Practitioner as directed. Dr. Mil MD I have performed a history and physical examination and medical decision making of this patient, discussed the same with the dictator, and agree with the d ictators assessment and plan as written, documented as a scribe. Based on total visit time, I have performed more than 50% of this visit. Objective - Vital Signs Vital signs: Vital Signs Temp 97.3 F L 01/27/24 08:00 Pulse 86 01/27/24 08:00 Resp 16 01/27/24 08:00 BP 106/71 01/27/24 08:00 Pulse Ox 100 01/27/24 08:00 FiO2 Intake & Output 01/26/24 01/27/24 01/27/24 18:59 06:59 18:59 Intake Total 760 236 Output Total 300 Balance 760 -300 236 Weight 126 kg Intake: Oral 760 236 Output: Urine 300 Other: # Voids 1 1 # Bowel Movements 1 0 - Labs CBC & Chem 7: 01/26/24 06:08 01/27/24 06:33 Labs: Abnormal Lab Results - Last 24 Hours (Table) 01/26/24 01/26/24 01/26/24 Range/Units 06:08 12:03 17:11 Sodium (137-145) mmol/L Chloride 93 L (96-109) mmol/L Anion Gap 12.70 H (4.00-12.00) mmol/L BUN 29.8 H (9.0-27.0) mg/dL Creatinine 4.3 H (0.6-1.5) mg/dL Est GFR (CKD-EPI) 15 L (>=60) BUN/Creatinine Ratio 6.93 L (12.00-20.00) Ratio Glucose 118 H (70-110) mg/dL POC Glucose (mg/dL) 139 H 268 H (70-110) mg/dL AST 13 L (14-35) U/L Albumin 3.7 L (3.8-4.9) g/dL Albumin/Globulin Ratio 1.23 L (1.60-3.17) Ratio 01/26/24 01/27/24 01/27/24 Range/Units 20:41 06:29 06:33 Sodium 133 L (137-145) mmol/L Chloride 94 L (96-109) mmol/L Anion Gap (4.00-12.00) mmol/L BUN 48 H (9.0-27.0) mg/dL Creatinine 5.61 H (0.6-1.5) mg/dL Est GFR (CKD-EPI) (>=60) BUN/Creatinine Ratio (12.00-20.00) Ratio Glucose 148 H (70-110) mg/dL POC Glucose (mg/dL) 159 H 144 H (70-110) mg/dL AST (14-35) U/L Albumin (3.8-4.9) g/dL Albumin/Globulin Ratio (1.60-3.17) Ratio Assessment and Plan Time with Patient: Greater than 30
--- NOTE | 2024-01-27 19:48 | XR ---
EXAMINATION TYPE: XR ankle complete RT DATE OF EXAM: 01/27/2024 7:40 PM CLINICAL INDICATION:Male, 63 years old with history of prior ankle fusion, assess hardware; [facility] COMPARISON: 01/27/2024 TECHNIQUE: XR ankle complete RT; ankle is imaged in frontal, lateral and oblique projections. FINDINGS: Fixation changes to the foot with excision stacey extending through the tibia into the calcaneus. Calcan eal screw has some lucency around it suggesting loosening fracture line near its insertion into the t ibial intramedullary stacey. Fibular fixation plate appears intact. Talus appear intact without lucency. Complete osseous fusion of the ankle and subtalar joint. There is callus formation along the fibular fracture. The medial malleolus fracture also may have some healing changes present. There is incompl ete fusion of thee IMPRESSION: Fixation changes with evidence of loosening and hardware failure as seen with prior.
[2024-01-27 20:03] LABS: Glucose,Whole Blood 154 mg/dL (70-110)
[2024-01-27] MEDS: METOPROLOL TARTRATE 25 MG TAB PO SCH (20:42)
[2024-01-28 04:26] LABS: Glucose,Whole Blood 178 mg/dL (70-110)
[2024-01-28] MEDS: MIDODRINE 5 MG TAB PO STA (05:38)
[2024-01-28 06:34] LABS: Magnesium 2.1 mg/dL (1.6-2.3)
[2024-01-28 06:38] LABS: Vancomycin,Random 19.7 ug/mL
--- NOTE | 2024-01-28 09:52 | P.CNOR ---
History of Present Illness - [facility] Consult date: 01/28/24 History of present illness: The patient is a very pleasant 63-year-old male with multiple medical problems who is admitted with multiple infections and ulcerations to internal medicine. During the course of his workup and x-ray was taken of the right foot which showed a broken screw from prior surgical fixation of an ankle fracture. Manish moss the patient sustained a neuropathic ankle fracture in October 2022. He was taken to the operating room at [facility] by Dr. Kee and had a hindfoot nail placed to stabilize his grossly unstable ankle due to his high risk of having a wound complication. He is presently admitted with ulcerations to both feet. His x-ray showed a broken calcaneal screw. Despite his multiple medical problems he feels relatively well and does not feel systemically ill. Past Medical History Past Medical History: Coronary Artery Disease (CAD), Cancer, Heart Failure, CVA/TIA, Diabetes Mellitus, Eye Disorder, Hypertension, Myocardial Infarction (MT), Renal Disease, Respiratory Disorder, Sleep Apnea/CPAP/BIPAP, Thyroid Disorder Additional Past Medical History / Comment(s): unhealing sore left index finger, neuropathy bilateral lower extremity/feet, bilateral eye diabetic retinopathy/poor vision/multiple injections, ESRD with hemodialysis M/W/F from 6:15 to 11:00, anemia, "mini strokes" x2, AVANI with CPap use, occasional low back pain/disc disease, gout, hypothyroid Last Myocardial Infarction Date:: 04/19/23 History of Any Multi-Drug Resistant Organisms: MRSA Year Discovered:: 12/10/21 MDRO Source:: Finger-Right 5th Past Surgical History: Adenoidectomy, Bariatric Surgery, Cholecystectomy, Heart Catheterization, Heart Catheterization With Stent, Orthopedic Surgery, Tonsillectomy Additional Past Surgical History / Comment(s): 10/22/20 PCI with stents x2, lap banding, FX of right ankle repair pins / plate, fistual lt arm jul 2018, lt shoulder sx (d/t separation), colonoscopies, bilateral cataract removals/lens implants. LIF surgery 08/11/21 R LEG stacey placed January 2023 04/19/23 3 stents Past Anesthesia/Blood Transfusion Reactions: Motion Sickness Additional Past Anesthesia/Blood Transfusion Reaction / Comm: CLAUSTERPHOBIA Date of Last Stent Placement:: 04/19/23 Past Psychological History: Anxiety Additional Psychological History / Comment(s): Pt resides with his spouse. He no longer drives d/t vision loss. His spouse drives and organizes his me dications for him. He has a walker and uses a wheelchair if going distances (dialysis days). Smoking Status: Former smoker Past Alcohol Use History: None Reported Additional Past Alcohol Use History / Comment(s): Patient was a smoker of 2-3 packs per day for 35 years and quit in 2006. Past Drug Use History: None Reported - Past Family History Mother History Unknown: Yes Family Medical History: Coronary Artery Disease (CAD), Myocardial Infarction (MT) Additional Family Medical History / Comment(s): Mother at age 58 from multiple sclerosis Father Family Medical History: CVA/TIA, Myocardial Infarction (MT) Additional Family Medical History / Comment(s): Father had history of MT and CVA followed by a second MT and CVA and at age 65. Brother(s) Additional Family Medical History / Comment(s): . Medications and Allergies Home Medications Medication Instructions Recorded Confirmed Type Levothyroxine Sodium 100 mcg PO DAILY 07/06/17 01/25/24 History Torsemide [Demadex] 40 mg PO DAILY 09/10/19 01/25/24 History HYDROcodone/APAP 10-325MG [[place] 1 tab PO 5XD PRN 11/24/20 01/25/24 History 10-325] Insulin Regular, Human [NovoLIN R 8 - 20 unit SQ ACHS PRN 11/24/20 01/25/24 History Flexpen] FLUoxetine HCL [PROzac] 40 mg PO DAILY 30 Days #30 cap 10/16/22 01/25/24 Rx Apixaban [Eliquis] 2.5 mg PO BID 02/16/23 01/25/24 History carvediloL [Coreg] 6.25 mg PO TID #60 tab 04/25/23 01/25/24 Rx Atorvastatin [Lipitor] 40 mg PO HS 07/16/23 01/25/24 History Calcium Acetate [PhosLo] 667 mg PO AC-TID 07/16/23 01/25/24 History Calcium Acetate [PhosLo] 667 mg PO DAILY PRN 07/16/23 01/25/24 History Insulin Regular, Human [NovoLIN R See Protocol SQ ACHS PRN 07/16/23 01/25/24 History Flexpen] Amitriptyline HCl [Elavil] 25 mg PO HS PRN 11/23/23 01/25/24 History Folic Acid/Vit B Complex and C 0.8 mg PO DAILY 11/23/23 01/25/24 History [Bryanna-Olimpia Tablet] Insulin Detemir [Levemir Flexpen] 25 - 30 units SQ HS 11/23/23 01/25/24 History LORazepam 1 mg PO BID PRN 11/23/23 01/25/24 History Midodrine HCl [ProAmatine] 10 mg PO AC-TID PRN 11/23/23 01/25/24 History Aspirin 81 mg PO DAILY 30 Days #30 tab 11/26/23 01/25/24 Rx Clopidogrel [Plavix] 75 mg PO DAILY 90 Days #90 tab 11/26/23 01/25/24 Rx Midodrine HCl [ProAmatine] 15 mg PO MOWEFR@0530 01/25/24 01/25/24 History Allergies Allergy/AdvReac Type Severity Reaction Status Date / Time No Known Allergies Allergy Verified 01/25/24 16:51 Physical Examination The patient is resting comfortably in his bed. He is alert and able to answer questions. He has dressings from areas of ulceration on both hands and feet. A focused examination of the patient's right foot was conducted. The dressing was taken down over the ankle and foot. On inspection there ulceration over all of his toes. The foot is diffusely swollen and erythematous. He has healed surgical incisions over the lateral malleolus, plantar heel, and medial calf from prior surgical fixation. The posterior tuberosity of the calcaneus has no open wounds or areas of breakdown from the broken screw. Results X-rays of the right ankle and foot show a hindfoot TTC nail across the ankle and subtalar joints. Both joints appear intact with no evidence of fusion. There is also a lateral plate and screw over the distal fibula. There is abundant callus over the fibula just proximal to the plate and screws. The calcaneal screw through the hindfoot nail is broken and his slightly backed out. There is resorption in the talus and calcaneus around the hindfoot nail. Calcification is noted in the vasculature around the ankle. - Labs Labs: Abnormal Lab Results - Last 24 Hours (Table) 0501/27/24 01/27/24 Range/Units 12:18 17:24 20:01 POC Glucose (mg/dL) 122 H 193 H 154 H (70-110) mg/dL 01/28/24 Range/Units 04:25 POC Glucose (mg/dL) 178 H (70-110) mg/dL Microbiology - Last 24 Hours (Table) 01/27/24 10:40 Gram Stain - Preliminary Toe - Right First 01/27/24 11:35 Gram Stain - Preliminary Arm - Left H & H 01/25/24 01/26/24 Range/Units 14:55 06:08 Hgb 12.0 L 11.7 L (13.0-17.5) gm/dL Hct 38.0 L 37.0 L (39.0-53.0) % Result Diagrams: 01/26/24 06:08 01/27/24 06:33 Assessment and Plan Assessment: Prior neuropathic ankle fracture status post operative stabilization with hindfoot nail Multiple superficial ulcerations bilateral feet Chronic swelling, cellulitis and possible deep space infection right foot. Plan: I had a long discussion with the patient on his x-ray findings and clinical condition of the right foot and ankle. The patient had surgical fixation of a grossly unstable ankle fracture with a hindfoot nail [place] [address] Kee. This is a commonly done surgical procedure to stabilize grossly unstable ankle fractures in high risk patients. The hardware is placed percutaneously so there are smaller incisions which decreases the risk of wound healing complications. Since the joint surfaces are not prepared for fusion, there is micromotion of the hardware and the interlocking screws of the nail can fatigue and break. This is not an unexpected finding on his x-rays because of this. Given the c linical condition of the patient's foot I have no plans for any surgical intervention at this time. I think ultimately the patient may require a below- knee amputation but will defer this to the primary service and infectious disease. If he fails to improve I would recommend consult to vascular surgery to discuss below-knee amputation. If assistance is needed to remove the hindfoot nail prior to below-knee amputation, I would be happy to assist. I will sign off at this time. Please call with any questions or concerns. Thank you for the consultation.
[2024-01-28 10:39] LABS: African American GFR (CKD) 16 (>60 ml/min/1.73 sqM); Anion Gap 10 mmol/L; Blood Urea Nitrogen 35 mg/dL (9-20); Calcium 8.6 mg/dL (8.4-10.2); Carbon Dioxide 29 mmol/L (22-30); Chloride 94 mmol/L (98-107); Glucose 196 mg/dL (74-99); Non-African American GFR(CKD) 14 (>60 ml/min/1.73 sqM); Potassium 4.4 mmol/L (3.5-5.1); Sodium 133 mmol/L (137-145)
--- NOTE | 2024-01-28 11:51 | P.PN ---
Subjective patient is seen for follow-up for end-stage renal disease. status post hemodialysis yesterday with UF of 2 L. Patient has been evaluated by orthopedic surgery. No plans for surgical intervention at this time. Objective - Vital Signs Vital signs: Vital Signs Temp 97.8 F 01/28/24 07:40 Pulse 78 01/28/24 07:40 Resp 15 01/28/24 07:40 BP 104/47 01/28/24 07:40 Pulse Ox 100 01/28/24 07:40 FiO2 Intake & Output 01/27/24 01/28/24 01/28/24 18:59 06:59 18:59 Intake Total 1090 Output Total 1999 Balance -910 Intake: Oral 590 Hemodialysis 500 Output: Hemodialysis 1999 Other: # Voids 0 - Exam patient is awake, comfortable, in no acute distress Alert oriented 3 Abdomen is soft obese Examination lower extremity shows edema of both feet worse on the right foot with bleeding noted from the right first toe. both legs are wrapped. Multiple amputations of fingers on both hands. - Labs CBC & Chem 7: 01/26/24 06:08 01/28/24 10:04 Labs: Abnormal Lab Results - Last 24 Hours (Table) 01/27/24 01/27/24 01/27/24 Range/Units 12:18 17:24 20:01 Sodium (137-145) mmol/L Chloride (98-107) mmol/L BUN (9-20) mg/dL Creatinine (0.66-1.25) mg/dL Glucose (74-99) mg/dL POC Glucose (mg/dL) 122 H 193 H 154 H (70-110) mg/dL 01/28/24 01/28/24 Range/Units 04:25 10:04 Sodium 133 L (137-145) mmol/L Chloride 94 L (98-107) mmol/L BUN 35 H (9-20) mg/dL Creatinine 4.33 H (0.66-1.25) mg/dL Glucose 196 H (74-99) mg/dL POC Glucose (mg/dL) 178 H (70-110) mg/dL Microbiology - Last 24 Hours (Table) 01/27/24 10:40 Gram Stain - Preliminary Toe - Right First 01/27/24 11:35 Gram Stain - Preliminary Arm - Left Assessment and Plan Assessment: 1. End-stage renal disease on hemodialysis on a Tuesday vent is a Tuesday schedule 2. Right foot cellulitis maintained on antibiotics 3. Hypertension with C daily stage V 4. CK D mineral bone disorder Plan: hemodialysis on Tuesday schedule Continue with antibiotics Continue with phosphate binders.
[2024-01-28 12:16] LABS: NT-Pro-B-Type Natriuretic Pept 133000 pg/mL
[2024-01-28] MEDS: VANCOMYCIN 2,000 MG in SODIUM CHLORIDE 0.9% 500 ML 500 ML IVPB ONE (12:59)
[2024-01-28 13:01] LABS: Glucose,Whole Blood 246 mg/dL (70-110)
--- NOTE | 2024-01-28 13:34 | P.PN ---
Subjective Progress Note Date: 01/28/24 This is a pleasant 63 year old male with medical history significant for CAD, severe cardiomyopathy, status post stenting by Dr. Jimenez most recently in April 2023 of the LAD, history of paroxysmal atrial fibrillation, end-stage renal disease maintained on hemodialysis MWF. Patient comes in to the ER with complaints of multiple wounds on his upper and lower extremities which patient started after he was scratched by his puppy. Patient also has noticed increased swelling to the right foot with bleeding from the great toe. Patient is unsure if he sustained any trauma to the foot. He has denied fever or chills at home. The wound was cultured in the ER. Foot xray reveals no obvious lytic destruction in either foot to suggest a contiguous osteomyelitis. There is significant periprosthetic lucency in the right hindfoot especially within the calcaneus related to the patients large retrograde nail. Patient has been started on empiric antibiotics with IV vancomycin and ID on consultation. Nephrology on consultation and patient is scheduled for usual hemodialysis session tomorrow. 01/27/2024 Patient is evaluated today on the medical floor. Scheduled to undergo hemodialysis today. Received 15 mg of midodrine was having low blood pressures. Received an extra 10 mg of midodrine. Now up to 120s systolic. Patient was evaluated by wound care. Dressings are intact. Foot xray of the right ulcer re veals no radiographic evidence for a contiguous osteomyelitis. The AP directed calcaneal screw is broken at the level of the stacey. Periprosthetic lucency here up to 5 mm is similar. Patient has concerns with low blood pressure and wants to make sure he doesn't have a pericardial effusion. 01/28/2024 Patient is evaluated today in follow-up. Patient underwent hemodialysis yesterday with 2 L of fluid off. Patient did not meet the ultrafiltration goal as he was hypotensive prior to the start of hemodialysis. Midodrine has been adjusted as per patient's home dosing of 10 mg 3 times a day which takes as needed and does takes 15 mg prior to dialysis on Tuesday. Patient continues to feel dizzy with marginal blood pressures and this should improve with the addition of scheduled midodrine. Metoprolol was changed to carvedilol secondary to the low blood pressures. Once his blood pressure improves patient can be adjusted to carvedilol. Patient also states that he has not taking aspirin 81 mg daily and this has been discontinued he does continue on Plavix and Eliquis. Orthopedics was consulted secondary to concern for the broken calcaneal screw of the right ankle and patient had a subsequent x-ray completed which reveals fixation changes with evidence of loosening and hardware failure as seen with prior. Review of Systems Constitutional: Denied any fatigue denied any fever. Cardio vascular: denied any chest pain, palpitations Gastrointestinal: denied any nausea, vomiting, diarrhea Pulmonary: Denied any shortness of breath cough Neurologic denied any new focal deficits All inpatient medications were reviewed and appropriate changes in these medications as dictated in the interval history and assessment and plan. PHYSICAL EXAMINATION: GENERAL: The patient is alert and oriented x3, not in any acute distress. Well developed, well nourished. HEENT: Pupils are round and equally reacting to light. EOMI. No scleral icterus. No conjunctival pallor. Normocephalic, atraumatic. No pharyngeal erythema. No thyromegaly. CARDIOVASCULAR: S1 and S2 present. No murmurs, rubs, or gallops. PULMONARY: Chest is clear to auscultation, n Ramirez A1c has not beeno wheezing or crackles. ABDOMEN: Soft, nontender, nondistended, normoactive bowel sounds. No palpable organomegaly. MUSCULOSKELETAL: No joint swelling or deformity. EXTREMITIES: No cyanosis, clubbing, or pedal edema. Multiple finger amputations bilaterally NEUROLOGICAL: Gross neurological examination did not reveal any focal deficits. SKIN: No rashes. Multiple lesions open to the right and left upper extremity. Sanguineous drainage from the right great toe Assessment and Plan Right foot cellulitis and right toe wound concern for diabetic foot infection. Cultures pending on IV vancomycin and ID consulted. 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 Atrial fibrillation, paroxysmal anticoagulated with eliquis which has been resumed Diabetes Mellitus type 2 with diabetic neuropathy Hyperlipidemia continues on statin therapy History of TIA History of sleep apnea with cpap use Hypothyroidism Anxiety Hx of nicotine use GI prophylaxis DVT prophylaxis Full Code Local wound care recommended with absorptive silver moistened with gauze to lower extremity wounds and to the upper extremity wounds apply honey gel dry gauze. Vascular has been consulted for evaluation. ID following cultures remains on IV cefepime. Hemodialysis MWF. Due to decreased blood pressures carvedilol has been adjusted to metoprolol. Discontinued to torsemide and aspirin. Adjustments made to midodrine. Blood cultures taken. Orthopedics recommending no surgical intervention at his time due to the broken hardware in the right heel. The impression and plan of care has been dictated by Ingrid Schneider, Nurse Practitioner as directed. Dr. Mil MD I have performed a history and physical examination and medical decision making of this patient, discussed the same with the dictator, and agree with the dictators assessment and plan as written, documented as a scribe. Based on total visit time, I have performed more than 50% of this visit. Objective - Vital Signs Vital signs: Vital Signs Temp 97.8 F 01/28/24 07:40 Pulse 78 01/28/24 07:40 Resp 15 01/28/24 07:40 BP 104/47 01/28/24 07:40 Pulse Ox 100 01/28/24 07:40 FiO2 Intake & Output 01/27/24 01/28/24 01/28/24 18:59 06:59 18:59 Intake Total 1090 Output Total 1999 Balance -910 Intake: Oral 590 Hemodialysis 500 Output: Hemodialysis 2000 Other: # Voids 0 - Labs CBC & Chem 7: 01/26/24 06:08 01/28/24 10:04 Labs: Abnormal Lab Results - Last 24 Hours (Table) 01/27/24 01/27/24 01/28/24 Range/Units 17:24 20:01 04:25 Sodium (137-145) mmol/L Chloride (98-107) mmol/L BUN (9-20) mg/dL Creatinine (0.66-1.25) mg/dL Glucose (74-99) mg/dL POC Glucose (mg/dL) 193 H 154 H 178 H (70-110) mg/dL 01/28/24 01/28/24 Range/Units 10:04 12:50 Sodium 133 L (137-145) mmol/L Chloride 94 L (98-107) mmol/L BUN 35 H (9-20) mg/dL Creatinine 4.33 H (0.66-1.25) mg/dL Glucose 196 H (74-99) mg/dL POC Glucose (mg/dL) 246 H (70-110) mg/dL Microbiology - Last 24 Hours (Table) 01/27/24 11:35 Gram Stain - Preliminary Arm - Left Wound Culture - Preliminary 01/27/24 10:40 Gram Stain - Preliminary Toe - Right First Assessment and Plan Time with Patient: Less than 30
[2024-01-28 17:21] LABS: Glucose,Whole Blood 212 mg/dL (70-110)
[2024-01-28] MEDS: MIDODRINE 5 MG TAB PO SCH (17:54)
[2024-01-28 19:31] LABS: Glucose,Whole Blood 175 mg/dL (70-110)
[2024-01-29 05:50] LABS: Glucose,Whole Blood 120 mg/dL (70-110)
[2024-01-29] MEDS: LACTULOSE 20 GM/30 ML CUP PO ONE (11:06)
[2024-01-29 11:59] LABS: Glucose,Whole Blood 189 mg/dL (70-110)
--- NOTE | 2024-01-29 12:32 | P.PN ---
Subjective patient is seen for follow-up for end-stage renal disease. scheduled for hemodialysis in a.m. Patient has been evaluated by orthopedic surgery. No plans for surgical intervention at this time. Objective - Vital Signs Vital signs: Vital Signs Temp 97.5 F L 01/29/24 07:15 Pulse 80 01/29/24 07:15 Resp 16 01/29/24 08:35 BP 108/72 01/29/24 07:15 Pulse Ox 100 01/29/24 07:15 FiO2 Intake & Output 01/28/24 01/29/24 01/29/24 18:59 06:59 18:59 Intake Total 1062 118 Balance 1062 118 Intake: Oral 1062 118 Other: # Voids 0 - Exam patient is awake, comfortable, in no acute distress Alert oriented 3 Examination of the heart S1 and S2 Examination of the lungs bilateral breath sounds are heard Abdomen is soft obese Examination lower extremity shows edema of both feet worse on the right foot with bleeding noted from the right first toe. both legs are wrapped. Multiple amputations of fingers on both hands. - Labs CBC & Chem 7: 01/26/24 06:08 01/28/24 10:04 Labs: Abnormal Lab Results - Last 24 Hours (Table) 01/28/24 01/28/24 01/28/24 Range/Units 12:50 17:19 19:30 POC Glucose (mg/dL) 246 H 212 H 175 H (70-110) mg/dL 01/29/24 01/29/24 Range/Units 05:49 11:57 POC Glucose (mg/dL) 120 H 189 H (70-110) mg/dL Microbiology - Last 24 Hours (Table) 01/27/24 10:40 Gram Stain - Final Toe - Right First Wound Culture - Final 01/27/24 11:35 Gram Stain - Preliminary Arm - Left Wound Culture - Preliminary Presumptive Staph aureus Assessment and Plan Assessment: 1. End-stage renal disease on hemodialysis on a Tuesday schedule 2. Right foot cellulitis maintained on antibiotics 3. Hypertension with CKD stage V 4. CK D mineral bone disorder Plan: hemodialysis on Tuesday schedule Continue with antibiotics Continue with phosphate binders.
--- NOTE | 2024-01-29 14:34 | P.PN ---
Subjective Progress Note Date: 01/29/24 This is a pleasant 63 year old male with medical history significant for CAD, severe cardiomyopathy, status post stenting by Dr. Jimenez most recently in April 2023 of the LAD, history of paroxysmal atrial fibrillation, end-stage renal disease maintained on hemodialysis MWF. Patient comes in to the ER with complaints of multiple wounds on his upper and lower extremities which patient started after he was scratched by his puppy. Patient also has noticed increased swelling to the right foot with bleeding from the great toe. Patient is unsure if he sustained any trauma to the foot. He has denied fever or chills at home. The wound was cultured in the ER. Foot xray reveals no obvious lytic destruction in either foot to suggest a contiguous osteomyelitis. There is significant periprosthetic lucency in the right hindfoot especially within the calcaneus related to the patients large retrograde nail. Patient has been started on empiric antibiotics with IV vancomycin and ID on consultation. Nephrology on consultation and patient is scheduled for usual hemodialysis session tomorrow. 01/27/2024 Patient is evaluated today on the medical floor. Scheduled to undergo hemodialysis today. Received 15 mg of midodrine was having low blood pressures. Received an extra 10 mg of midodrine. Now up to 120s systolic. Patient was evaluated by wound care. Dressings are intact. Foot xray of the right ulcer re veals no radiographic evidence for a contiguous osteomyelitis. The AP directed calcaneal screw is broken at the level of the stacey. Periprosthetic lucency here up to 5 mm is similar. Patient has concerns with low blood pressure and wants to make sure he doesn't have a pericardial effusion. 01/28/2024 Patient is evaluated today in follow-up. Patient underwent hemodialysis yesterday with 2 L of fluid off. Patient did not meet the ultrafiltration goal as he was hypotensive prior to the start of hemodialysis. Midodrine has been adjusted as per patient's home dosing of 10 mg 3 times a day which takes as needed and does takes 15 mg prior to dialysis on Tuesday. Patient continues to feel dizzy with marginal blood pressures and this should improve with the addition of scheduled midodrine. Metoprolol was changed to carvedilol secondary to the low blood pressures. Once his blood pressure improves patient can be adjusted to carvedilol. Patient also states that he has not taking aspirin 81 mg daily and this has been discontinued he does continue on Plavix and Eliquis. Orthopedics was consulted secondary to concern for the broken calcaneal screw of the right ankle and patient had a subsequent x-ray completed which reveals fixation changes with evidence of loosening and hardware failure as seen with prior. 01/29/2024 Patient is evaluated in follow-up today. He has been resumed on his midodrine 10 mg 3 times a day and reports improvement in his dizziness and blood pressure is maintaining in the 100s systolic. He does continue on metoprolol and carvedilol remains on hold at this time. Wound culture showing presumptive Staph aureus. Orthopedics has evaluated the patient and not recommending any surgical intervention at this time. Pending evaluation by vascular surgery. Review of Systems Constitutional: Denied any fatigue denied any fever. Cardio vascular: denied any chest pain, palpitations Gastrointestinal: denied any nausea, vomiting, diarrhea Pulmonary: Denied any shortness of breath cough Neurologic denied any new focal deficits All inpatient medications were reviewed and appropriate changes in these medications as dictated in the interval history and assessment and plan. PHYSICAL EXAMINATION: GENERAL: The patient is alert and oriented x3, not in any acute distress. Well developed, well nourished. HEENT: Pupils are round and equally reacting to light. EOMI. No scleral icterus. No conjunctival pallor. Normocephalic, atraumatic. No pharyngeal erythema. No thyromegaly. CARDIOVASCULAR: S1 and S2 present. No murmurs, rubs, or gallops. PULMONARY: Chest is clear to auscultation, n Ramirez A1c has not beeno wheezing or crackles. ABDOMEN: Soft, nontender, nondistended, normoactive bowel sounds. No palpable organomegaly. MUSCULOSKELETAL: No joint swelling or deformity. EXTREMITIES: No cyanosis, clubbing, or pedal edema. Multiple finger amputations bilaterally NEUROLOGICAL: Gross neurological examination did not reveal any focal deficits. SKIN: No rashes. Multiple lesions open to the right and left upper extremity. Sanguineous drainage from the right great toe Assessment and Plan Right foot cellulitis and right toe wound concern for diabetic foot infection. Cultures pending on IV vancomycin and ID consulted. 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 Atrial fibrillation, paroxysmal anticoagulated with eliquis which has been resumed Diabetes Mellitus type 2 with diabetic neuropathy Hyperlipidemia continues on statin therapy History of TIA History of sleep apnea with cpap use Hypothyroidism Anxiety Hx of nicotine use GI prophylaxis DVT prophylaxis Full Code Local wound care recommended with absorptive silver moistened with gauze to lower extremity wounds and to the upper extremity wounds apply honey gel dry gau ze. Vascular has been consulted for evaluation. ID following cultures remains on IV Vancomycin hemodialysis MWF. Due to decreased blood pressures carvedilol has been adjusted to metoprolol. Discontinued to torsemide and aspirin. Adjustments made to midodrine. Blood cultures taken. Orthopedics recommending no surgical intervention at his time due to the broken hardware in the right heel. Pending vascular surgery consultation The impression and plan of care has been dictated by Ingrid Schneider, Nurse Practitioner as directed. Dr. Mil MD I have performed a history and physical examination and medical decision making of this patient, discussed the same with the dictator, and agree with the dictators assessment and plan as written, documented as a scribe. Based on total visit time, I have performed more than 50% of this visit. Objective - Vital Signs Vital signs: Vital Signs Temp 97.5 F L 01/29/24 07:15 Pulse 80 01/29/24 07:15 Resp 16 01/29/24 08:35 BP 108/72 01/29/24 07:15 Pulse Ox 100 01/29/24 07:15 FiO2 Intake & Output 01/28/24 01/29/24 01/29/24 18:59 06:59 18:59 Intake Total 1062 118 Balance 1062 118 Intake: Oral 1062 118 Other: # Voids 0 - Labs CBC & Chem 7: 01/26/24 06:08 01/28/24 10:04 Labs: Abnormal Lab Results - Last 24 Hours (Table) 01/28/24 01/28/24 01/29/24 Range/Units 17:19 19:30 05:49 POC Glucose (mg/dL) 212 H 175 H 120 H (70-110) mg/dL 01/29/24 Range/Units 11:57 POC Glucose (mg/dL) 189 H (70-110) mg/dL Microbiology - Last 24 Hours (Table) 01/27/24 11:35 Anaerobic Culture - Preliminary Arm - Left 01/27/24 10:40 Anaerobic Culture - Preliminary Toe - Right First 01/27/24 10:40 Gram Stain - Final Toe - Right First Wound Culture - Final 01/27/24 11:35 Gram Stain - Preliminary Arm - Left Wound Culture - Preliminary Presumptive Staph aureus Assessment and Plan Time with Patient: Less than 30
--- NOTE | 2024-01-29 17:27 | P.PN ---
Subjective Progress Note Date: 01/28/24 Principal diagnosis: Reason for follow-up is left upper extremity and right big toe Patient is a 63-year-old male with a past medical history significant for coronary artery disease heart failure with CVA TIA diabetes mellitus hypertension [place] patient did have a multiple limitation to bilateral hand fingers because of infection patient now presenting to the hospital with multiple open wounds to the left upper extremity, failing outpatient antibiotic therapy. On today's evaluation that is 01/28/2024, patient has been afebrile, patient is breathing comfortably and is currently on room air, patient denies having any significant cough no chest pain shortness of breath, patient denies nausea vomiting or diarrhea and no abdominal pain patient denies pain to the left forearm and right big toe wound area. No CBC was done today creatinine is 4.33 Objective - Vital Signs Vital signs: Vital Signs Temp 98.6 F 01/28/24 13:40 Pulse 75 01/28/24 13:40 Resp 16 01/28/24 13:40 BP 107/70 01/28/24 13:40 Pulse Ox 99 01/28/24 13:40 FiO2 Intake & Output 01/27/24 01/28/24 01/28/24 18:59 06:59 18:59 Intake Total 1090 472 Output Total 1999 Balance -910 472 Intake: Oral 590 472 Hemodialysis 500 Output: Hemodialysis 1999 Other: # Voids 0 - Exam GENERAL DESCRIPTION: Middle-age male lying in bed in no distress RESPIRATORY SYSTEM: Unlabored breathing , decreased breath sounds at bases HEART: S1 S2 regular rate and rhythm , ABDOMEN: Soft , no tenderness EXTREMITIES: Left upper extremity right big toe wound currently dressed - Labs CBC & Chem 7: 01/26/24 06:08 01/28/24 10:04 Labs: Abnormal Lab Results - Last 24 Hours (Table) 01/27/24 01/27/24 01/28/24 Range/Units 17:24 20:01 04:25 Sodium (137-145) mmol/L Chloride (98-107) mmol/L BUN (9-20) mg/dL Creatinine (0.66-1.25) mg/dL Glucose (74-99) mg/dL POC Glucose (mg/dL) 193 H 154 H 178 H (70-110) mg/dL 01/28/24 01/28/24 Range/Units 10:04 12:50 Sodium 133 L (137-145) mmol/L Chloride 94 L (98-107) mmol/L BUN 35 H (9-20) mg/dL Creatinine 4.33 H (0.66-1.25) mg/dL Glucose 196 H (74-99) mg/dL POC Glucose (mg/dL) 246 H (70-110) mg/dL Microbiology - Last 24 Hours (Table) 01/27/24 11:35 Gram Stain - Preliminary Arm - Left Wound Culture - Preliminary 01/27/24 10:40 Gram Stain - Preliminary Toe - Right First Assessment and Plan (1) Left arm cellulitis Current Visit: Yes Status: Acute Code(s): L03.114 - CELLULITIS OF LEFT UPPER LIMB SNOMED Code(s): 71680180558172746 (2) Type 2 diabetes mellitus with foot ulcer Current Visit: Yes Status: Acute Code(s): E11.621 - TYPE 2 DIABETES MELLITUS WITH FOOT ULCER; L97.509 - NON-PRESSURE CHRONIC ULCER OTH PRT UNSP FOOT W UNSP SEVERITY SNOMED Code(s): 917924637 Plan: 1patient with multiple wound to the left upper extremity admitted to the dog scratch or concerning for possible folliculitis likely from a skin mickie such as staph or strep and failing outpatient oral by therapy. 2patient also have right big toe diabetic foot ulcer and a possible component of cellulitis likely forming gram-positive skin mickie 3-culture has been obtained results will be followed 4- x-ray of the right foot did not mention any bony destruction to the right big toe 5-patient to continue with vancomycin pharmacy to dose target trough of 15 while waiting for the culture to finalize determine his discharge antibiotics Dictation was produced using [employer] dictation software. please excuse any grammatical, word or spelling errors. Time with Patient: Less than 30
--- NOTE | 2024-01-29 17:28 | P.PN ---
Subjective Progress Note Date: 01/29/24 Principal diagnosis: Reason for follow-up is left upper extremity and right big toe Patient is a 63-year-old male with a past medical history significant for coronary artery disease heart failure with CVA TIA diabetes mellitus hypertension [place] patient did have a multiple limitation to bilateral hand fingers because of infection patient now presenting to the hospital with multiple open wounds to the left upper extremity, failing outpatient antibiotic therapy. On today's evaluation that is 01/29/2024,the patient denies any fever or any chills, patient is breathing comfortably on room air, the patient denies chest pain shortness of breath and no significant cough, patient denies abdominal pain, no nausea vomiting or diarrhea. Patient denies any worsening pain to the left forearm and right big toe wound area and no further drainage. No new x-rays been obtained today, cultures with presumptive Staph aureus Objective - Vital Signs Vital signs: Vital Signs Temp 97.5 F L 01/29/24 15:00 Pulse 53 L 01/29/24 15:00 Resp 15 01/29/24 15:00 BP 96/66 01/29/24 16:45 Pulse Ox 100 01/29/24 15:00 FiO2 Intake & Output 01/28/24 01/29/24 01/29/24 18:59 06:59 18:59 Intake Total 1062 468 Balance 1062 468 Intake: Oral 1062 468 Other: # Voids 0 - Exam GENERAL DESCRIPTION: Middle-age male lying in bed in no distress RESPIRATORY SYSTEM: Unlabored breathing , decreased breath sounds at bases HEART: S1 S2 regular rate and rhythm , ABDOMEN: Soft , no tenderness EXTREMITIES: Left upper extremity wounds have dried out redness has improved no foul-smelling drainage - Labs CBC & Chem 7: 01/26/24 06:08 01/28/24 10:04 Labs: Abnormal Lab Results - Last 24 Hours (Table) 01/28/24 01/29/24 01/29/24 Range/Units 19:30 05:49 11:57 POC Glucose (mg/dL) 175 H 120 H 189 H (70-110) mg/dL Microbiology - Last 24 Hours (Table) 01/28/24 10:04 Blood Culture - Preliminary Blood 01/27/24 11:35 Anaerobic Culture - Preliminary Arm - Left 01/27/24 10:40 Anaerobic Culture - Preliminary Toe - Right First 01/27/24 10:40 Gram Stain - Final Toe - Right First Wound Culture - Final 01/27/24 11:35 Gram Stain - Preliminary Arm - Left Wound Culture - Preliminary Presumptive Staph aureus Assessment and Plan (1) Left arm cellulitis Current Visit: Yes Status: Acute Code(s): L03.114 - CELLULITIS OF LEFT UPPER LIMB SNOMED Code(s): 28081074119091383 (2) Type 2 diabetes mellitus with foot ulcer Current Visit: Yes Status: Acute Code(s): E11.621 - TYPE 2 DIABETES MELLITUS WITH FOOT ULCER; L97.509 - NON-PRESSURE CHRONIC ULCER OTH PRT UNSP FOOT W UNSP SEVERITY SNOMED Code(s): 686147809 Plan: 1patient with multiple wound to the left upper extremity admitted to the dog scratch or concerning for possible folliculitis likely from a skin mickie such as staph or strep and failing outpatient oral by therapy. 2patient also have right big toe diabetic foot ulcer and a possible component of cellulitis likely forming gram-positive skin mickie 3-culture has been obtained results will be followed 4- x-ray of the right foot did not mention any bony destruction to the right big toe 5-patient culture currently growing Staph aureus with sensitivities pending patient is covered with vancomycin to continue Dictation was produced using [employer] dictation software. please excuse any grammatical, word or spelling errors. Time with Patient: Less than 30
[2024-01-29 17:31] LABS: Glucose,Whole Blood 195 mg/dL (70-110)
[2024-01-29 19:58] LABS: Glucose,Whole Blood 237 mg/dL (70-110)
--- NOTE | 2024-01-29 20:47 | P.GSCN ---
History of Present Illness History of present illness: 63-year-old gentleman patient known to me from the past I created a fistula in the left arm history of chronic renal failure. I was called in today patient has a right foot big toe wound I also the nailbed is exposed and second toe has a scab on the dorsal aspect of the second toe with mild redness and swelling of the right lower extremity patient also has a multiple ulcer on the left lower extremity under care of infectious disease Patient has 3 of chronic renal failure diabetes hypertension Patient was seen in his room we checked the right foot big toe has some mild redness noted big toenail is SK came out and has a nailbed is exposed patient also has a scab on the right foot second toe with mild redness PT DP not palpable Patient dressing has changed we placed extra silver dressing should be changed every 48 hours patient under care of infectious disease IV antibiotic at this point continue with local wound care if patient needed any surgical intervention follow with you Past Medical History Past Medical History: Coronary Artery Disease (CAD), Cancer, Heart Failure, CVA/TIA, Diabetes Mellitus, Eye Disorder, Hypertension, Myocardial Infarction (DC), Renal Disease, Respiratory Disorder, Sleep Apnea/CPAP/BIPAP, Thyroid Disorder Additional Past Medical History / Comment(s): unhealing sore left index finger, neuropathy bilateral lower extremity/feet, bilateral eye diabetic retinopathy/poor vision/multiple injections, ESRD with hemodialysis M/W/F from 6:15 to 11:00, anemia, "mini strokes" x2, AVANI with CPap use, occasional low back pain/disc disease, gout, hypothyroid Last Myocardial Infarction Date:: 04/19/23 History of Any Multi-Drug Resistant Organisms: MRSA Year Discovered:: 12/10/21 MDRO Source:: Finger-Right 5th Past Surgical History: Adenoidectomy, Bariatric Surgery, Cholecystectomy, Heart Catheterization, Heart Catheterization With Stent, Orthopedic Surgery, To nsillectomy Additional Past Surgical History / Comment(s): 10/22/20 PCI with stents x2, lap banding, FX of right ankle repair pins / plate, fistual lt arm jul 2018, lt shoulder sx (d/t separation), colonoscopies, bilateral cataract removals/lens implants. LIF surgery 08/11/21 R LEG stacey placed January 2023 04/19/23 3 stents Past Anesthesia/Blood Transfusion Reactions: Motion Sickness Additional Past Anesthesia/Blood Transfusion Reaction / Comm: CLAUSTERPHOBIA Date of Last Stent Placement:: 04/19/23 Past Psychological History: Anxiety Additional Psychological History / Comment(s): Pt resides with his spouse. He no longer drives d/t vision loss. His spouse drives and organizes his medications for him. He has a walker and uses a wheelchair if going distances (dialysis days). Smoking Status: Former smoker Past Alcohol Use History: None Reported Additional Past Alcohol Use History / Comment(s): Patient was a smoker of 2-3 packs per day for 35 years and quit in 2006. Past Drug Use History: None Reported - Past Family History Mother History Unknown: Yes Family Medical History: Coronary Artery Disease (CAD), Myocardial Infarction (DC) Additional Family Medical History / Comment(s): Mother at age 58 from multiple sclerosis Father Family Medical History: CVA/TIA, Myocardial Infarction (DC) Additional Family Medical History / Comment(s): Father had history of DC and CVA followed by a second DC and CVA and at age 65. Brother(s) Additional Family Medical History / Comment(s): . Medications and Allergies Home Medications Medication Instructions Recorded Confirmed Type Levothyroxine Sodium 100 mcg PO DAILY 07/06/17 01/25/24 History Torsemide [Demadex] 40 mg PO DAILY 09/10/19 01/25/24 History HYDROcodone/APAP 10-325MG [[place] 1 tab PO 5XD PRN 11/24/20 01/25/24 History 10-325] Insulin Regular, Human [NovoLIN R 8 - 20 unit SQ ACHS PRN 11/24/20 01/25/24 History Flexpen] FLUoxetine HCL [PROzac] 40 mg PO DAILY 30 Days #30 cap 10/16/22 01/25/24 Rx Apixaban [Eliquis] 2.5 mg PO BID 02/16/23 01/25/24 History carvediloL [Coreg] 6.25 mg PO TID #60 tab 04/25/23 01/25/24 Rx Atorvastatin [Lipitor] 40 mg PO HS 07/16/23 01/25/24 History Calcium Acetate [PhosLo] 667 mg PO AC-TID 07/16/23 01/25/24 History Calcium Acetate [PhosLo] 667 mg PO DAILY PRN 07/16/23 01/25/24 History Insulin Regular, Human [NovoLIN R See Protocol SQ ACHS PRN 07/16/23 01/25/24 History Flexpen] Amitriptyline HCl [Elavil] 25 mg PO HS PRN 11/23/23 01/25/24 History Folic Acid/Vit B Complex and C 0.8 mg PO DAILY 11/23/23 01/25/24 History [Bryanna-Olimpia Tablet] Insulin Detemir [Levemir Flexpen] 25 - 30 units SQ HS 11/23/23 01/25/24 History LORazepam 1 mg PO BID PRN 11/23/23 01/25/24 History Midodrine HCl [ProAmatine] 10 mg PO AC-TID PRN 11/23/23 01/25/24 History Aspirin 81 mg PO DAILY 30 Days #30 tab 11/26/23 01/25/24 Rx Clopidogrel [Plavix] 75 mg PO DAILY 90 Days #90 tab 11/26/23 01/25/24 Rx Midodrine HCl [ProAmatine] 15 mg PO MOWEFR@0530 01/25/24 01/25/24 History Allergies Allergy/AdvReac Type Severity Reaction Status Date / Time No Known Allergies Allergy Verified 01/25/24 16:51 Surgical - Exam Vital Signs Temp Pulse Resp BP Pulse Ox 97.6 F 88 18 136/81 99 01/25/24 13:38 01/25/24 13:38 01/25/24 13:38 01/25/24 13:38 01/25/24 13:38 Results - Labs 01/26/24 06:08 01/28/24 10:04 Abnormal Lab Results - Last 24 Hours (Table) 01/29/24 01/29/24 01/29/24 Range/Units 05:49 11:57 17:29 POC Glucose (mg/dL) 120 H 189 H 195 H (70-110) mg/dL 01/29/24 Range/Units 19:56 POC Glucose (mg/dL) 237 H (70-110) mg/dL Microbiology - Last 24 Hours (Table) 01/28/24 10:04 Blood Culture - Preliminary Blood 01/27/24 11:35 Anaerobic Culture - Preliminary Arm - Left 01/27/24 10:40 Anaerobic Culture - Preliminary Toe - Right First 01/27/24 10:40 Gram Stain - Final Toe - Right First Wound Culture - Final 01/27/24 11:35 Gram Stain - Preliminary Arm - Left Wound Culture - Preliminary Presumptive Staph aureus
[2024-01-30 05:45] LABS: Glucose,Whole Blood 109 mg/dL (70-110)
--- NOTE | 2024-01-30 09:13 | P.PN ---
Subjective Patient is seen in follow-up for end-stage renal disease. He is maintained on hemodialysis on Tuesday schedule. Resting in bed. No active complaints at this time. Vital signs are stable. General: No acute distress. HEENT: Head exam is unremarkable. On nasal cannula. LUNGS: No audible rhonchi or wheezes. HEART: Rate and Rhythm are regular. ABDOMEN: Nontender, obese. EXTREMITITES: Trace edema. Objective - Vital Signs Vital signs: Vital Signs Temp 97.6 F 01/30/24 07:00 Pulse 66 01/30/24 07:00 Resp 17 01/30/24 07:00 BP 92/49 01/30/24 07:00 Pulse Ox 100 01/30/24 07:00 FiO2 Intake & Output 01/29/24 01/30/24 01/30/24 18:59 06:59 18:59 Intake Total 586 Balance 586 Intake: Oral 586 Other: # Voids 1 - Labs CBC & Chem 7: 01/26/24 06:08 01/28/24 10:04 Labs: Abnormal Lab Results - Last 24 Hours (Table) 01/29/24 01/29/24 01/29/24 Range/Units 11:57 17:29 19:56 POC Glucose (mg/dL) 189 H 195 H 237 H (70-110) mg/dL Microbiology - Last 24 Hours (Table) 01/28/24 10:04 Blood Culture - Preliminary Blood 01/27/24 11:35 Anaerobic Culture - Preliminary Arm - Left 01/27/24 10:40 Anaerobic Culture - Preliminary Toe - Right First 01/27/24 10:40 Gram Stain - Final Toe - Right First Wound Culture - Final 01/27/24 11:35 Gram Stain - Preliminary Arm - Left Wound Culture - Preliminary Presumptive Staph aureus Assessment and Plan Plan: Assessment: 1. End-stage renal disease maintained on hemodialysis on Tuesday schedule. 2. Right lower extremity cellulitis maintained on antibiotics. ID and vascular surgery following. 3. Chronic kidney disease mineral bone disease. On PhosLo. 4. Diabetes mellitus. 5. Chronic hypotension maintained on midodrine as needed. Plan: Hemodialysis today.
[2024-01-30 11:51] LABS: Glucose,Whole Blood 185 mg/dL (70-110)
[2024-01-30 16:51] LABS: Glucose,Whole Blood 210 mg/dL (70-110)
--- NOTE | 2024-01-30 19:36 | P.PN ---
Subjective Progress Note Date: 01/30/24 This is a pleasant 63 year old male with medical history significant for CAD, severe cardiomyopathy, status post stenting by Dr. Jimenez most recently in April 2023 of the LAD, history of paroxysmal atrial fibrillation, end-stage renal disease maintained on hemodialysis MWF. Patient comes in to the ER with complaints of multiple wounds on his upper and lower extremities which patient started after he was scratched by his puppy. Patient also has noticed increased swelling to the right foot with bleeding from the great toe. Patient is unsure if he sustained any trauma to the foot. He has denied fever or chills at home. The wound was cultured in the ER. Foot xray reveals no obvious lytic destruction in either foot to suggest a contiguous osteomyelitis. There is significant periprosthetic lucency in the right hindfoot especially within the calcaneus related to the patients large retrograde nail. Patient has been started on empiric antibiotics with IV vancomycin and ID on consultation. Nephrology on consultation and patient is scheduled for usual hemodialysis session tomorrow. 01/27/2024 Patient is evaluated today on the medical floor. Scheduled to undergo hemodialysis today. Received 15 mg of midodrine was having low blood pressures. Received an extra 10 mg of midodrine. Now up to 120s systolic. Patient was evaluated by wound care. Dressings are intact. Foot xray of the right ulcer re veals no radiographic evidence for a contiguous osteomyelitis. The AP directed calcaneal screw is broken at the level of the stacey. Periprosthetic lucency here up to 5 mm is similar. Patient has concerns with low blood pressure and wants to make sure he doesn't have a pericardial effusion. 01/28/2024 Patient is evaluated today in follow-up. Patient underwent hemodialysis yesterday with 2 L of fluid off. Patient did not meet the ultrafiltration goal as he was hypotensive prior to the start of hemodialysis. Midodrine has been adjusted as per patient's home dosing of 10 mg 3 times a day which takes as needed and does takes 15 mg prior to dialysis on Tuesday. Patient continues to feel dizzy with marginal blood pressures and this should improve with the addition of scheduled midodrine. Metoprolol was changed to carvedilol secondary to the low blood pressures. Once his blood pressure improves patient can be adjusted to carvedilol. Patient also states that he has not taking aspirin 81 mg daily and this has been discontinued he does continue on Plavix and Eliquis. Orthopedics was consulted secondary to concern for the broken calcaneal screw of the right ankle and patient had a subsequent x-ray completed which reveals fixation changes with evidence of loosening and hardware failure as seen with prior. 01/29/2024 Patient is evaluated in follow-up today. He has been resumed on his midodrine 10 mg 3 times a day and reports improvement in his dizziness and blood pressure is maintaining in the 100s systolic. He does continue on metoprolol and carvedilol remains on hold at this time. Wound culture showing presumptive Staph aureus. Orthopedics has evaluated the patient and not recommending any surgical intervention at this time. Pending evaluation by vascular surgery. 01/30/2024 Patient evaluated today in follow up. continues on midodrine 10 mg TID with improvement in his blood pressure. Continues on metoprolol which will further be decreased to 12.5 mg BID. Wound culture of the left arm showing staphylococcus aureus. His blood culture is negative so far. Wound culture of the right great toe is final and negative. Vascular has evaluated the patient and no plans for surgical intervention at this time. Patient continues on IV vancomycin. ID following closely. Review of Systems Constitutional: Denied any fatigue denied any fever. Cardio vascular: denied any chest pain, palpitations Gastrointestinal: denied any nausea, vomiting, diarrhea Pulmonary: Denied any shortness of breath cough Neurologic denied any new focal deficits All inpatient medications were reviewed and appropriate changes in these medications as dictated in the interval history and assessment and plan. PHYSICAL EXAMINATION: GENERAL: The patient is alert and oriented x3, not in any acute distress. Well developed, well nourished. HEENT: Pupils are round and equally reacting to light. EOMI. No scleral icterus. No conjunctival pallor. Normocephalic, atraumatic. No pharyngeal erythema. No thyromegaly. CARDIOVASCULAR: S1 and S2 present. No murmurs, rubs, or gallops. PULMONARY: Chest is clear to auscultation, n Ramirez A1c has not beeno wheezing or crackles. ABDOMEN: Soft, nontender, nondistended, normoactive bowel sounds. No palpable organomegaly. MUSCULOSKELETAL: No joint swelling or deformity. EXTREMITIES: No cyanosis, clubbing, or pedal edema. Multiple finger amputations bilaterally NEUROLOGICAL: Gross neurological examination did not reveal any focal deficits. SKIN: No rashes. Multiple lesions open to the right and left upper extremity. Sanguineous drainage from the right great toe Assessment and Plan Right foot cellulitis and right toe wound concern for diabetic foot infection. Cultures showing stapyhlococcus aureus. IV vancomycin and ID consulted. Wound care will be consulted Multiple wounds; open to bilateral upper and lower extremity End stage renal disease maintained on hemodialysis MWF Coronary artery disease with prior PCI remains on plavix per patient no longer on aspirin per her director of global sales and this has been discontinued. 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 Atrial fibrillation, paroxysmal anticoagulated with eliquis which has been resumed Diabetes Mellitus type 2 with diabetic neuropathy Hyperlipidemia continues on statin therapy History of TIA History of sleep apnea with cpap use Hypothyroidism Anxiety Hx of nicotine use GI prophylaxis DVT prophylaxis Full Code Local wound care recommended with absorptive silver moistened with gauze to lower extremity wounds and to the upper extremity wounds apply honey gel dry gauze. Vascular has been consulted for evaluation. ID following cultures remains on IV Vancomycin, hemodialysis MWF. Due to decreased blood pressures carvedilol has been adjusted to metoprolol. Discontinued torsemide and aspirin. Adjustments made to midodrine. Blood cultures taken. Orthopedics recommending no surgical intervention at his time due to the broken hardware in the right heel. Vascular recommending no surgical interventions. Wound cultures have finalized pending discharge recommendations by ID. The impression and plan of care has been dictated by Ingrid Schneider, Nurse Practitioner as directed. Dr. Mil MD I have performed a history and physical examination and medical decision making of this patient, discussed the same with the dictator, and agree with the dictators assessment and plan as written, documented as a scribe. Based on total visit time, I have performed more than 50% of this visit. Objective - Vital Signs Vital signs: Vital Signs Temp 98.3 F 01/30/24 14:10 Pulse 76 01/30/24 14:10 Resp 17 01/30/24 14:10 BP 111/39 01/30/24 14:10 Pulse Ox 99 01/30/24 14:10 FiO2 Intake & Output 01/30/24 01/30/24 01/31/24 06:59 18:59 06:59 Intake Total 720 Balance 720 Intake: Oral 720 Other: # Voids 1 1 - Labs CBC & Chem 7: 01/26/24 06:08 01/28/24 10:04 Labs: Abnormal Lab Results - Last 24 Hours (Table) 01/29/24 01/30/24 01/30/24 Range/Units 19:56 11:49 16:50 POC Glucose (mg/dL) 237 H 185 H 210 H (70-110) mg/dL Microbiology - Last 24 Hours (Table) 01/28/24 10:04 Blood Culture - Preliminary Blood 01/27/24 11:35 Gram Stain - Final Arm - Left Wound Culture - Final Staphylococcus aureus Assessment and Plan Time with Patient: Less than 30
[2024-01-30 20:43] LABS: Glucose,Whole Blood 124 mg/dL (70-110)
[2024-01-30] MEDS: METOPROLOL TARTRATE 12.5 MG TAB PO SCH (21:08)
[2024-01-30] MEDS: CALCIUM CARBONATE 500 MG CHEWABLE PO PRN (23:03)
[2024-01-31 06:13] LABS: Glucose,Whole Blood 141 mg/dL (70-110)
--- NOTE | 2024-01-31 10:52 | P.PN ---
Subjective Patient is seen in follow-up for end-stage renal disease. He is maintained on hemodialysis on Tuesday schedule. Resting in bed. No active complaints at this time. No problems with dialysis yesterday. Vital signs are stable. General: No acute distress. HEENT: Head exam is unremarkable. On nasal cannula. LUNGS: No audible rhonchi or wheezes. HEART: Rate and Rhythm are regular. ABDOMEN: Nontender, obese. EXTREMITITES: Trace edema. Objective - Vital Signs Vital signs: Vital Signs Temp 97.6 F 01/31/24 07:00 Pulse 52 L 01/31/24 07:00 Resp 16 01/31/24 07:00 BP 97/48 01/31/24 07:00 Pulse Ox 100 01/31/24 07:00 FiO2 Intake & Output 01/30/24 01/31/24 01/31/24 18:59 06:59 18:59 Intake Total 720 500 236 Output Total 3000 Balance 720 -2500 236 Intake: Oral 720 236 Hemodialysis 500 Output: Hemodialysis 3000 Other: # Voids 1 # Bowel Movements 1 - Labs CBC & Chem 7: 01/26/24 06:08 01/28/24 10:04 Labs: Abnormal Lab Results - Last 24 Hours (Table) 01/30/24 01/30/24 01/30/24 Range/Units 11:49 16:50 20:41 POC Glucose (mg/dL) 185 H 210 H 124 H (70-110) mg/dL 01/31/24 Range/Units 06:12 POC Glucose (mg/dL) 141 H (70-110) mg/dL Microbiology - Last 24 Hours (Table) 01/28/24 10:04 Blood Culture - Preliminary Blood 01/27/24 11:35 Gram Stain - Final Arm - Left Wound Culture - Final Staphylococcus aureus Assessment and Plan Plan: Assessment: 1. End-stage renal disease maintained on hemodialysis on Tuesday schedule. 2. Right lower extremity cellulitis maintained on antibiotics. ID and vascular surgery following. 3. Chronic kidney disease mineral bone disease. On PhosLo. 4. Diabetes mellitus. 5. Chronic hypotension maintained on midodrine as needed. Plan: Hemodialysis tomorrow.
[2024-01-31 12:47] LABS: Glucose,Whole Blood 198 mg/dL (70-110)
[2024-01-31] MEDS: AMPICILLIN-SULBACTAM 3 GM in SODIUM CHLORIDE 0.9% 100 ML IVPB SCH (13:12)
--- NOTE | 2024-01-31 13:30 | P.PN ---
Subjective Progress Note Date: 01/30/24 Principal diagnosis: Reason for follow-up is left upper extremity and right big toe Patient is a 63-year-old male with a past medical history significant for coronary artery disease heart failure with CVA TIA diabetes mellitus hypertension NE patient did have a multiple limitation to bilateral hand fingers because of infection patient now presenting to the hospital with multiple open wounds to the left upper extremity, failing outpatient antibiotic therapy. On today's evaluation that is 01/30/2024,the patient remains to be afebrile, patient is on 3 L nasal cannula supplemental oxygen and denies any shortness of breath no chest pain or cough.Patient denies having any nausea or vomiting, no abdominal pain and no diarrhea has been reported, denies pain to the left arm or right big toe wound area Patient did have vancomycin random of 26.8 Objective - Vital Signs Vital signs: Vital Signs Temp 97.6 F 01/30/24 07:00 Pulse 67 01/30/24 08:00 Resp 16 01/30/24 08:00 BP 92/49 01/30/24 07:00 Pulse Ox 100 01/30/24 07:00 FiO2 Intake & Output 01/29/24 01/30/24 01/30/24 18:59 06:59 18:59 Intake Total 586 Balance 586 Intake: Oral 586 Other: # Voids 1 - Exam GENERAL DESCRIPTION: Middle-age male lying in bed in no distress RESPIRATORY SYSTEM: Unlabored breathing , decreased breath sounds at bases HEART: S1 S2 regular rate and rhythm , ABDOMEN: Soft , no tenderness EXTREMITIES: Left upper extremity wounds have dried out redness has improved no foul-smelling drainage - Labs CBC & Chem 7: 01/26/24 06:08 01/28/24 10:04 Labs: Abnormal Lab Results - Last 24 Hours (Table) 01/29/24 01/29/24 01/29/24 Range/Units 11:57 17:29 19:56 POC Glucose (mg/dL) 189 H 195 H 237 H (70-110) mg/dL Microbiology - Last 24 Hours (Table) 01/27/24 11:35 Gram Stain - Final Arm - Left Wound Culture - Final Staphylococcus aureus 01/28/24 10:04 Blood Culture - Preliminary Blood 01/27/24 11:35 Anaerobic Culture - Preliminary Arm - Left 01/27/24 10:40 Anaerobic Culture - Preliminary Toe - Right First 01/27/24 10:40 Gram Stain - Final Toe - Right First Wound Culture - Final Assessment and Plan (1) Left arm cellulitis Current Visit: Yes Status: Acute Code(s): L03.114 - CELLULITIS OF LEFT UPPER LIMB SNOMED Code(s): 46768985601546687 (2) Type 2 diabetes mellitus with foot ulcer Current Visit: Yes Status: Acute Code(s): E11.621 - TYPE 2 DIABETES MELLITUS WITH FOOT ULCER; L97.509 - NON-PRESSURE CHRONIC ULCER OTH PRT UNSP FOOT W UNSP SEVERITY SNOMED Code(s): 119732863 Plan: 1patient with multiple wound to the left upper extremity admitted to the dog [facility] or concerning for possible folliculitis likely from a skin mickie such as staph or strep and failing outpatient oral by therapy. 2patient also have right big toe diabetic foot ulcer and a possible component of cellulitis likely forming gram-positive skin mickie 3-culture has been obtained currently growing Staph aureus 4- x-ray of the right foot did not mention any bony destruction to the right big toe 5-patient to continue with vancomycin and monitor clinical course closely Dictation was produced using [employer] dictation software. please excuse any grammatical, word or spelling errors. Time with Patient: Less than 30
--- NOTE | 2024-01-31 13:32 | P.PN ---
Subjective Progress Note Date: 01/31/24 Principal diagnosis: Reason for follow-up is left upper extremity and right big toe Patient is a 63-year-old male with a past medical history significant for coronary artery disease heart failure with CVA TIA diabetes mellitus hypertension ME patient did have a multiple limitation to bilateral hand fingers because of infection patient now presenting to the hospital with multiple open wounds to the left upper extremity, failing outpatient antibiotic therapy. On today's evaluation that is 01/31/2024, the patient continues to be afebrile, the patient is on 3 L current oxygen and breathing comfortably, the Pt denies having any chest pain or cough, the patient denies having any abdominal pain no vomiting or any diarrhea patient denies pain to the right big toe or the left upper arm wounds. Cultures with MSSA,patient did have a vancomycin antibiotic 22.8 Objective - Vital Signs Vital signs: Vital Signs Temp 97.6 F 01/31/24 07:00 Pulse 52 L 01/31/24 07:00 Resp 16 01/31/24 07:00 BP 97/48 01/31/24 07:00 Pulse Ox 100 01/31/24 07:00 FiO2 Intake & Output 01/30/24 01/31/24 01/31/24 18:59 06:59 18:59 Intake Total 720 500 236 Output Total 3000 Balance 720 -2500 236 Intake: Oral 720 236 Hemodialysis 500 Output: Hemodialysis 3000 Other: # Voids 1 # Bowel Movements 1 - Exam GENERAL DESCRIPTION: Middle-age male lying in bed in no distress RESPIRATORY SYSTEM: Unlabored breathing , decreased breath sounds at bases HEART: S1 S2 regular rate and rhythm , ABDOMEN: Soft , no tenderness EXTREMITIES: Left upper extremity wounds have dried out redness has improved, right big toe did have a necrotic wound on the plantar aspect swelling slightly decreased - Labs CBC & Chem 7: 01/26/24 06:08 01/28/24 10:04 Labs: Abnormal Lab Results - Last 24 Hours (Table) 01/30/24 01/30/24 01/30/24 Range/Units 11:49 16:50 20:41 POC Glucose (mg/dL) 185 H 210 H 124 H (70-110) mg/dL 01/31/24 Range/Units 06:12 POC Glucose (mg/dL) 141 H (70-110) mg/dL Microbiology - Last 24 Hours (Table) 01/28/24 10:04 Blood Culture - Preliminary Blood 01/27/24 11:35 Gram Stain - Final Arm - Left Wound Culture - Final Staphylococcus aureus Assessment and Plan (1) Left arm cellulitis Current Visit: Yes Status: Acute Code(s): L03.114 - CELLULITIS OF LEFT UPPER LIMB SNOMED Code(s): 93435456059994090 (2) Type 2 diabetes mellitus with foot ulcer Current Visit: Yes Status: Acute Code(s): E11.621 - TYPE 2 DIABETES MELLITUS WITH FOOT ULCER; L97.509 - NON-PRESSURE CHRONIC ULCER OTH PRT UNSP FOOT W UNSP SEVERITY SNOMED Code(s): 887315644 (3) Diabetic foot ulcer Current Visit: Yes Status: Acute Code(s): E11.621 - TYPE 2 DIABETES MELLITUS WITH FOOT ULCER; L97.509 - NON-PRESSURE CHRONIC ULCER OTH PRT UNSP FOOT W UNSP SEVERITY SNOMED Code(s): 197761019 Plan: 1patient with multiple wound to the left upper extremity admitted to the dog scratch or concerning for possible folliculitis likely from a skin mickie such as staph or strep and failing outpatient oral antibiotic therapy. 2patient also have right big toe diabetic foot ulcer and a possible component of cellulitis likely forming gram-positive skin mickie 3-culture currently growing MSSA, x-ray of the right foot did not mention any bony destruction to the right big toe 4patient left upper extremity wounds are healing well however did have a necrotic ulcer on the plantar aspect of the right big toe which is slightly concerning and getting adjusted to Unasyn and will benefit from IV antibiotic on discharge which can be done through the dialysis so we can avoid a PICC line placement Case discussed with the employment evaluator/case manager to look for outpatient IV antibiotic option patient aware may need amputation of the big toe if did not have any improvement with antibiotic therapy Dictation was produced using [employer] dictation software. please excuse any grammatical, word or spelling errors. Time with Patient: Less than 30
[2024-01-31] MEDS: HYDROmorphone 1 MG/ML 1 ML SYRINGE IVP PRN (14:50)
[2024-01-31 17:34] LABS: Glucose,Whole Blood 162 mg/dL (70-110)
--- NOTE | 2024-01-31 17:46 | P.PN ---
Progress Note - Text 63-year-old gentleman history of chronic renal failure on dialysis. Patient has a history of diabetes hypertension coronary artery disease. Patient has been admitted for right foot big toe nailbed is exposed patient has a scab on the plantar aspect of the big toe full-thickness and scab on the second toe. PT DP not palpable there present by the Doppler skin is very cyanotic involving the dorsal aspect the foot and big toe and the toes patient is growing MRSA under care of infectious disease we have changed her dressing using extra silver I have discussed with the patient most likely patient will need right big toe ray amputation I will discuss with the infectious follow-up with you
[2024-01-31 21:21] LABS: Glucose,Whole Blood 272 mg/dL (70-110)
[2024-02-01 06:12] LABS: Glucose,Whole Blood 141 mg/dL (70-110)
[2024-02-01 12:02] LABS: Glucose,Whole Blood 270 mg/dL (70-110)
--- NOTE | 2024-02-01 12:22 | P.PN ---
Subjective Patient is seen in follow-up for end-stage renal disease. He is maintained on hemodialysis on Tuesday schedule. Resting in bed. No active complaints at this time. Scheduled for dialysis today. Vital signs are stable. General: No acute distress. HEENT: Head exam is unremarkable. On nasal cannula. LUNGS: No audible rhonchi or wheezes. HEART: Rate and Rhythm are regular. ABDOMEN: Nontender, obese. EXTREMITITES: Trace edema. Objective - Vital Signs Vital signs: Vital Signs Temp 97.5 F L 02/01/24 07:17 Pulse 74 02/01/24 08:00 Resp 18 02/01/24 08:00 BP 92/52 02/01/24 07:17 Pulse Ox 100 02/01/24 07:17 FiO2 Intake & Output 01/31/24 02/01/24 02/01/24 18:59 06:59 18:59 Intake Total 857 100 Balance 857 100 Weight 126 kg Intake: Oral 857 100 Other: # Voids 0 - Labs CBC & Chem 7: 01/26/24 06:08 01/28/24 10:04 Labs: Abnormal Lab Results - Last 24 Hours (Table) 01/31/24 01/31/24 01/31/24 Range/Units 12:45 17:34 21:19 POC Glucose (mg/dL) 198 H 162 H 272 H (70-110) mg/dL 02/01/24 02/01/24 Range/Units 06:10 12:00 POC Glucose (mg/dL) 141 H 270 H (70-110) mg/dL Microbiology - Last 24 Hours (Table) 01/28/24 10:04 Blood Culture - Preliminary Blood 01/27/24 10:40 Anaerobic Culture - Final Toe - Right First 01/27/24 11:35 Anaerobic Culture - Final Arm - Left Assessment and Plan Plan: Assessment: 1. End-stage renal disease maintained on hemodialysis on Tuesday schedule. 2. Right lower extremity cellulitis maintained on antibiotics. ID and vascular surgery following. May need toe amputation. 3. Chronic kidney disease mineral bone disease. On PhosLo. 4. Diabetes mellitus. 5. Chronic hypotension maintained on midodrine as needed. Plan: Hemodialysis today.
--- NOTE | 2024-02-01 15:24 | P.PN ---
Subjective Progress Note Date: 01/31/24 This is a pleasant 63 year old male with medical history significant for CAD, severe cardiomyopathy, status post stenting by Dr. Jimenez most recently in April 2023 of the LAD, history of paroxysmal atrial fibrillation, end-stage renal disease maintained on hemodialysis MWF. Patient comes in to the ER with complaints of multiple wounds on his upper and lower extremities which patient started after he was scratched by his puppy. Patient also has noticed increased swelling to the right foot with bleeding from the great toe. Patient is unsure if he sustained any trauma to the foot. He has denied fever or chills at home. The wound was cultured in the ER. Foot xray reveals no obvious lytic destruction in either foot to suggest a contiguous osteomyelitis. There is significant periprosthetic lucency in the right hindfoot especially within the calcaneus related to the patients large retrograde nail. Patient has been started on empiric antibiotics with IV vancomycin and ID on consultation. Nephrology on consultation and patient is scheduled for usual hemodialysis session tomorrow. 01/27/2024 Patient is evaluated today on the medical floor. Scheduled to undergo hemodialysis today. Received 15 mg of midodrine was having low blood pressures. Received an extra 10 mg of midodrine. Now up to 120s systolic. Patient was evaluated by wound care. Dressings are intact. Foot xray of the right ulcer re veals no radiographic evidence for a contiguous osteomyelitis. The AP directed calcaneal screw is broken at the level of the stacey. Periprosthetic lucency here up to 5 mm is similar. Patient has concerns with low blood pressure and wants to make sure he doesn't have a pericardial effusion. 01/28/2024 Patient is evaluated today in follow-up. Patient underwent hemodialysis yesterday with 2 L of fluid off. Patient did not meet the ultrafiltration goal as he was hypotensive prior to the start of hemodialysis. Midodrine has been adjusted as per patient's home dosing of 10 mg 3 times a day which takes as needed and does takes 15 mg prior to dialysis on Tuesday. Patient continues to feel dizzy with marginal blood pressures and this should improve with the addition of scheduled midodrine. Metoprolol was changed to carvedilol secondary to the low blood pressures. Once his blood pressure improves patient can be adjusted to carvedilol. Patient also states that he has not taking aspirin 81 mg daily and this has been discontinued he does continue on Plavix and Eliquis. Orthopedics was consulted secondary to concern for the broken calcaneal screw of the right ankle and patient had a subsequent x-ray completed which reveals fixation changes with evidence of loosening and hardware failure as seen with prior. 01/29/2024 Patient is evaluated in follow-up today. He has been resumed on his midodrine 10 mg 3 times a day and reports improvement in his dizziness and blood pressure is maintaining in the 100s systolic. He does continue on metoprolol and carvedilol remains on hold at this time. Wound culture showing presumptive Staph aureus. Orthopedics has evaluated the patient and not recommending any surgical intervention at this time. Pending evaluation by vascular surgery. 01/30/2024 Patient evaluated today in follow up. continues on midodrine 10 mg TID with improvement in his blood pressure. Continues on metoprolol which will further be decreased to 12.5 mg BID. Wound culture of the left arm showing staphylococcus aureus. His blood culture is negative so far. Wound culture of the right great toe is final and negative. Vascular has evaluated the patient and no plans for surgical intervention at this time. Patient continues on IV vancomycin. ID following closely. 01/31/2024 Patient evaluated in follow up today. His blood pressure has improved on the midodrine. Wound cultures showing staphylococcus aureus. ID following. Local wound care in place. Review of Systems Constitutional: Denied any fatigue denied any fever. Cardio vascular: denied any chest pain, palpitations Gastrointestinal: denied any nausea, vomiting, diarrhea Pulmonary: Denied any shortness of breath cough Neurologic denied any new focal deficits All inpatient medications were reviewed and appropriate changes in these medications as dictated in the interval history and assessment and plan. PHYSICAL EXAMINATION: GENERAL: The patient is alert and oriented x3, not in any acute distress. Well developed, well nourished. HEENT: Pupils are round and equally reacting to light. EOMI. No scleral icterus. No conjunctival pallor. Normocephalic, atraumatic. No pharyngeal erythema. No thyromegaly. CARDIOVASCULAR: S1 and S2 present. No murmurs, rubs, or gallops. PULMONARY: Chest is clear to auscultation, n Ramirez A1c has not beeno wheezing or crackles. ABDOMEN: Soft, nontender, nondistended, normoactive bowel sounds. No palpable organomegaly. MUSCULOSKELETAL: No joint swelling or deformity. EXTREMITIES: No cyanosis, clubbing, or pedal edema. Multiple finger amputations bilaterally NEUROLOGICAL: Gross neurological examination did not reveal any focal deficits. SKIN: No rashes. Multiple lesions open to the right and left upper extremity. Sanguineous drainage from the right great toe Assessment and Plan Right foot cellulitis and right toe wound concern for diabetic foot infection. Cultures showing stapyhlococcus aureus. IV vancomycin and ID consulted. Wound c are will be consulted Multiple wounds; open to bilateral upper and lower extremity End stage renal disease maintained on hemodialysis MWF Coronary artery disease with prior PCI remains on plavix per patient no longer on aspirin per her seasoning mixer and this has been discontinued. 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 Atrial fibrillation, paroxysmal anticoagulated with eliquis which has been resumed Diabetes Mellitus type 2 with diabetic neuropathy Hyperlipidemia continues on statin therapy History of TIA History of sleep apnea with cpap use Hypothyroidism Anxiety Hx of nicotine use GI prophylaxis DVT prophylaxis Full Code Local wound care recommended with absorptive silver moistened with gauze to lower extremity wounds and to the upper extremity wounds apply honey gel dry gauze. Vascular has been consulted for evaluation. ID following cultures remains on IV Vancomycin, hemodialysis MWF. Due to decreased blood pressures carvedilol has been adjusted to metoprolol. Discontinued torsemide and aspirin. Adjustments made to midodrine. Blood cultures taken. Orthopedics recommending no surgical intervention at his time due to the broken hardware in the right heel. Vascular recommending no surgical interventions. Wound cultures have finalized pending discharge recommendations by ID. The impression and plan of care has been dictated by Nurse Serafin Garcia titioner as directed. Dr. Mil MD I have performed a history and physical examination and medical decision making of this patient, discussed the same with the dictator, and agree with the dictators assessment and plan as written, documented as a scribe. Based on total visit time, I have performed more than 50% of this visit. Objective - Vital Signs Vital signs: Vital Signs Temp 97.8 F 02/01/24 13:39 Pulse 82 02/01/24 13:39 Resp 16 02/01/24 13:39 BP 99/64 02/01/24 13:39 Pulse Ox 99 02/01/24 13:39 FiO2 Intake & Output 01/31/24 02/01/24 02/01/24 18:59 06:59 18:59 Intake Total 857 337 Output Total 0 Balance 857 337 Weight 126 kg Intake: Oral 857 337 Output: Urine 0 Other: # Voids 0 - Labs CBC & Chem 7: 01/26/24 06:08 01/28/24 10:04 Labs: Abnormal Lab Results - Last 24 Hours (Table) 01/31/24 01/31/24 02/01/24 Range/Units 17:34 21:19 06:10 POC Glucose (mg/dL) 162 H 272 H 141 H (70-110) mg/dL 02/01/24 Range/Units 12:00 POC Glucose (mg/dL) 270 H (70-110) mg/dL Microbiology - Last 24 Hours (Table) 01/28/24 10:04 Blood Culture - Preliminary Blood 01/27/24 10:40 Anaerobic Culture - Final Toe - Right First 01/27/24 11:35 Anaerobic Culture - Final Arm - Left Assessment and Plan Time with Patient: Less than 30
--- NOTE | 2024-02-01 15:27 | P.PN ---
Subjective Progress Note Date: 02/01/24 This is a pleasant 63 year old male with medical history significant for CAD, severe cardiomyopathy, status post stenting by Dr. Jimenez most recently in April 2023 of the LAD, history of paroxysmal atrial fibrillation, end-stage renal disease maintained on hemodialysis MWF. Patient comes in to the ER with complaints of multiple wounds on his upper and lower extremities which patient started after he was scratched by his puppy. Patient also has noticed increased swelling to the right foot with bleeding from the great toe. Patient is unsure if he sustained any trauma to the foot. He has denied fever or chills at home. The wound was cultured in the ER. Foot xray reveals no obvious lytic destruction in either foot to suggest a contiguous osteomyelitis. There is significant periprosthetic lucency in the right hindfoot especially within the calcaneus related to the patients large retrograde nail. Patient has been started on empiric antibiotics with IV vancomycin and ID on consultation. Nephrology on consultation and patient is scheduled for usual hemodialysis session tomorrow. 01/27/2024 Patient is evaluated today on the medical floor. Scheduled to undergo hemodialysis today. Received 15 mg of midodrine was having low blood pressures. Received an extra 10 mg of midodrine. Now up to 120s systolic. Patient was evaluated by wound care. Dressings are intact. Foot xray of the right ulcer re veals no radiographic evidence for a contiguous osteomyelitis. The AP directed calcaneal screw is broken at the level of the stacey. Periprosthetic lucency here up to 5 mm is similar. Patient has concerns with low blood pressure and wants to make sure he doesn't have a pericardial effusion. 01/28/2024 Patient is evaluated today in follow-up. Patient underwent hemodialysis yesterday with 2 L of fluid off. Patient did not meet the ultrafiltration goal as he was hypotensive prior to the start of hemodialysis. Midodrine has been adjusted as per patient's home dosing of 10 mg 3 times a day which takes as needed and does takes 15 mg prior to dialysis on Tuesday. Patient continues to feel dizzy with marginal blood pressures and this should improve with the addition of scheduled midodrine. Metoprolol was changed to carvedilol secondary to the low blood pressures. Once his blood pressure improves patient can be adjusted to carvedilol. Patient also states that he has not taking aspirin 81 mg daily and this has been discontinued he does continue on Plavix and Eliquis. Orthopedics was consulted secondary to concern for the broken calcaneal screw of the right ankle and patient had a subsequent x-ray completed which reveals fixation changes with evidence of loosening and hardware failure as seen with prior. 01/29/2024 Patient is evaluated in follow-up today. He has been resumed on his midodrine 10 mg 3 times a day and reports improvement in his dizziness and blood pressure is maintaining in the 100s systolic. He does continue on metoprolol and carvedilol remains on hold at this time. Wound culture showing presumptive Staph aureus. Orthopedics has evaluated the patient and not recommending any surgical intervention at this time. Pending evaluation by vascular surgery. 01/30/2024 Patient evaluated today in follow up. continues on midodrine 10 mg TID with improvement in his blood pressure. Continues on metoprolol which will further be decreased to 12.5 mg BID. Wound culture of the left arm showing staphylococcus aureus. His blood culture is negative so far. Wound culture of the right great toe is final and negative. Vascular has evaluated the patient and no plans for surgical intervention at this time. Patient continues on IV vancomycin. ID following closely. 02/01/2024 Patient is evaluated in follow up. Requiring IV dilaudid for breakthrough pain which is helping with the lower extremities however, his right lower back has been bothering him. Patient scheduled to undergo his usual hemodialysis session today. Wound cultures showing staphylococcus aureus and patient is continued on IV unasyn. Vascular surgery is now recommending right great toe amputation. Review of Systems Constitutional: Denied any fatigue denied any fever. Cardio vascular: denied any chest pain, palpitations Gastrointestinal: denied any nausea, vomiting, diarrhea Pulmonary: Denied any shortness of breath cough Neurologic denied any new focal deficits All inpatient medications were reviewed and appropriate changes in these medications as dictated in the interval history and assessment and plan. PHYSICAL EXAMINATION: GENERAL: The patient is alert and oriented x3, not in any acute distress. Well developed, well nourished. HEENT: Pupils are round and equally reacting to light. EOMI. No scleral icterus. No conjunctival pallor. Normocephalic, atraumatic. No pharyngeal erythema. No thyromegaly. CARDIOVASCULAR: S1 and S2 present. No murmurs, rubs, or gallops. PULMONARY: Chest is clear to auscultation, n Ramirez A1c has not beeno wheezing or crackles. ABDOMEN: Soft, nontender, nondistended, normoactive bowel sounds. No palpable organomegaly. MUSCULOSKELETAL: No joint swelling or deformity. EXTREMITIES: No cyanosis, clubbing, or pedal edema. Multiple finger amputations bilaterally NEUROLOGICAL: Gross neurological examination did not reveal any focal deficits. SKIN: No rashes. Multiple lesions open to the right and left upper extremity. Sanguineous drainage from the right great toe Assessment and Plan Right foot cellulitis and right toe wound concern for diabetic foot infection. Cultures showing stapyhlococcus aureus. IV vancomycin and ID consulted. Wound care will be consulted Multiple wounds and right upper extremity cellulitis; open to bilateral upper and lower extremity End stage renal disease maintained on hemodialysis MWF Coronary artery disease with prior PCI remains on plavix per patient no longer on aspirin per her gum dipper and this has been discontinued. 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 Atrial fibrillation, paroxysmal anticoagulated with eliquis which has been resumed Diabetes Mellitus type 2 with diabetic neuropathy Hyperlipidemia continues on statin therapy History of TIA History of sleep apnea with cpap use Hypothyroidism Anxiety Hx of nicotine use GI prophylaxis DVT prophylaxis Full Code Local wound care recommended with absorptive silver moistened with gauze to lower extremity wounds and to the upper extremity wounds apply honey gel dry gauze. Vascular has been consulted for evaluation. ID following cultures remains on IV Vancomycin, hemodialysis MWF. Due to decreased blood pressures carvedilol has been adjusted to metoprolol. Discontinued torsemide and aspirin. Adjustments made to midodrine. Blood cultures taken. Orthopedics recommending no surgical intervention at his time due to the broken hardware in the right heel. Vascular recommending possible right great toe amputation. Repeat blood work. The impression and plan of care has been dictated by Ingrid Schneider, Nurse Practitioner as directed. Dr. Mil MD I have performed a history and physical examination and medical decision making of this patient, discussed the same with the dictator, and agree with the dictators assessment and plan as written, documented as a scribe. Based on total visit time, I have performed more than 50% of this visit. Objective - Vital Signs Vital signs: Vital Signs Temp 97.8 F 02/01/24 13:39 Pulse 82 02/01/24 13:39 Resp 16 02/01/24 13:39 BP 99/64 02/01/24 13:39 Pulse Ox 99 02/01/24 13:39 FiO2 Intake & Output 01/31/24 02/01/24 02/01/24 18:59 06:59 18:59 Intake Total 857 337 Output Total 0 Balance 857 337 Weight 126 kg Intake: Oral 857 337 Output: Urine 0 Other: # Voids 0 - Labs CBC & Chem 7: 01/26/24 06:08 01/28/24 10:04 Labs: Abnormal Lab Results - Last 24 Hours (Table) 01/31/24 01/31/24 02/01/24 Range/Units 17:34 21:19 06:10 POC Glucose (mg/dL) 162 H 272 H 141 H (70-110) mg/dL 02/01/24 Range/Units 12:00 POC Glucose (mg/dL) 270 H (70-110) mg/dL Microbiology - Last 24 Hours (Table) 01/28/24 10:04 Blood Culture - Preliminary Blood 01/27/24 10:40 Anaerobic Culture - Final Toe - Right First 01/27/24 11:35 Anaerobic Culture - Final Arm - Left Assessment and Plan Time with Patient: Less than 30
[2024-02-01 16:45] LABS: Glucose,Whole Blood 167 mg/dL (70-110)
[2024-02-01] MEDS: LIDOCAINE 4% PATCH TOPICAL SCH (17:26)
--- NOTE | 2024-02-01 20:26 | P.PN ---
Progress Note - Text 63-year-old gentleman history of coronary artery disease postcoronary artery stent patient has a right foot big toe wet gangrene patient is scheduled to have a right big toe ray amputation patient IV antibiotic under care of infectious disease we will schedule for Tuesday risk and complication discussed
[2024-02-01 21:00] LABS: Glucose,Whole Blood 137 mg/dL (70-110)
[2024-02-02 05:50] LABS: Glucose,Whole Blood 143 mg/dL (70-110)
--- NOTE | 2024-02-02 10:42 | P.PN ---
Subjective Patient is seen in follow-up for end-stage renal disease. He is maintained on hemodialysis on Tuesday schedule. Resting in bed. No active complaints at this time. Tolerated 3 L ultrafiltration yesterday. Vital signs are stable. General: No acute distress. HEENT: Head exam is unremarkable. On nasal cannula. LUNGS: No audible rhonchi or wheezes. HEART: Rate and Rhythm are regular. ABDOMEN: Nontender, obese. EXTREMITITES: Trace edema. Objective - Vital Signs Vital signs: Vital Signs Temp 97.5 F L 02/02/24 07:20 Pulse 56 L 02/02/24 07:20 Resp 18 02/02/24 07:20 BP 83/42 02/02/24 07:20 Pulse Ox 100 02/02/24 07:20 FiO2 Intake & Output 02/01/24 02/02/24 02/02/24 18:59 06:59 18:59 Intake Total 337 400 Output Total 0 3400 Balance 337 -3000 Intake: Oral 337 Hemodialysis 400 Output: Urine 0 0 Hemodialysis 3400 - Labs CBC & Chem 7: 01/26/24 06:08 01/28/24 10:04 Labs: Abnormal Lab Results - Last 24 Hours (Table) 02/01/24 02/01/24 02/01/24 Range/Units 12:00 16:42 20:59 POC Glucose (mg/dL) 270 H 167 H 137 H (70-110) mg/dL 02/02/24 Range/Units 05:48 POC Glucose (mg/dL) 143 H (70-110) mg/dL Assessment and Plan Plan: Assessment: 1. End-stage renal disease maintained on hemodialysis on Tuesday schedule. 2. Right lower extremity cellulitis maintained on antibiotics. ID and vascular surgery following. Possible toe amputation tomorrow. 3. Chronic kidney disease mineral bone disease. On PhosLo. 4. Diabetes mellitus. 5. Chronic hypotension maintained on midodrine as needed. Plan: Hemodialysis tomorrow.
[2024-02-02 12:07] LABS: Glucose,Whole Blood 185 mg/dL (70-110)
--- NOTE | 2024-02-02 12:53 | P.CRDCN ---
History of Present Illness History of present illness: HISTORY OF PRESENT ILLNESS: This is a 63-year-old male with a past medical history significant for hypertension, hyperlipidemia, coronary artery disease, paroxysmal atrial fibrillation, pericardial effusion with tamponade s/p pericardial window, end- stage renal disease on dialysis, and prostate cancer. Patient follows in the office with Dr. Jimenez. We have been asked to see the patient in consultation for surgical clearance for amputation. Patient examined at the bedside. Patient currently denies chest pain or pressure. He denies shortness of breath. Vital signs are stable. Patient is tentatively scheduled for toe amputation tomorrow with Dr. Levy. DIAGNOSTICS: - EKG not available at the time of this dictation - Chest xray cardiomegaly and mild pulmonary vascular congestion. Correlate with BNP for congestive heart failure. - Laboratory data: WBC 6.9. Hemoglobin 11.7. Platelet count 145. Sodium 133. Potassium 4.4. BUN 35. Creatinine 4.33. proBNP 133,000 - Current home cardiac medications include Eliquis 2.5 mg twice a day, aspirin 81 mg daily, atorvastatin 40 mg at night, Plavix 75 mg daily, Demadex 40 mg daily, and carvedilol 3.25 mg 3 times a day. - Most recent echocardiogram obtained in November 2023 revealed ejection fraction 25 to 30%, moderate MR, mild aortic stenosis, mild TR - Cardiac catheterization history: 11/23/[address] Ngo revealing heavily calcified coronary arteries and calcified bilateral iliofemoral arteries, subtotally occluded mid LAD, mild disease in the RCA, moderate to severe disease in the left circumflex patient underwent. Stenting of the mid LAD with IVUS imaging. Patient also had cardiogenic shock at the start of the procedure with improvement in blood pressure at the end. REVIEW OF SYSTEMS: At the time of my exam: CONSTITUTIONAL: Denies fever or chills. HEENT: Denies blurred vision, vision changes, or eye pain. Denies hemoptysis CARDIOVASCULAR: Denies chest pain. Denies orthopnea. Denies PND. Denies p alpitations RESPIRATORY: Denies shortness of breath. GASTROINTESTINAL: Denies abdominal pain. Denies nausea or vomiting. HEMATOLOGIC: Denies bleeding disorders. GENITOURINARY: Denies any blood in urine. SKIN: Denies pruitis. Denies rash. PHYSICAL EXAM: VITAL SIGNS: Reviewed. GENERAL: Well-developed in no acute distress. HEENT: Head is normocephalic. Pupils are equal, round. Sclerae anicteric. Mucous membranes of the mouth are moist. Neck supple. No JVD or thyromegaly LUNGS: Respirations even and unlabored. Lungs essentially clear to auscultation bilaterally. HEART: Regular rate and rhythm. S1 and S2 heard. ABDOMEN: Soft. Nondistended. Nontender. EXTREMITIES: Normal range of motion. No clubbing or cyanosis. Peripheral pulses intact. No lower extremity edema NEUROLOGIC: Awake and alert. Oriented x 3. ASSESSMENT: Right great toe gangrene, scheduled for amputation Coronary artery disease with recent stenting of the mid LAD, 11/23/2023 Paroxysmal atrial fibrillation End-stage renal disease on hemodialysis History of pericardial effusion with tamponade status post pericardial window, 2020 Hypertension Hyperlipidemia Prostate cancer s/p radiation in 2017 History of TIA History of amputations of the fingers of left hand secondary to osteomyelitis PLAN: Obtain EKG Hold Eliquis in anticipation for surgery scheduled tomorrow Do not hold Plavix due to recent stenting Continue additional cardiac medications There are no absolute contraindications for patient to proceed with surgery from a cardiac standpoint Further recommendations pending patient course Nurse practitioner note has been reviewed by physician. Signing provider agrees with the documented findings, assessment, and plan of care documented by COLLECTIONS DIRECTOR as a scribe. Past Medical History Past Medical History: Coronary Artery Disease (CAD), Cancer, Heart Failure, CVA/TIA, Diabetes Mellitus, Eye Disorder, Hypertension, Myocardial Infarction (MA), Renal Disease, Respiratory Disorder, Sleep Apnea/CPAP/BIPAP, Thyroid Disorder Additional Past Medical History / Comment(s): unhealing sore left index finger, neuropathy bilateral lower extremity/feet, bilateral eye diabetic retinopathy/poor vision/multiple injections, ESRD with hemodialysis M/W/F from 6:15 to 11:00, anemia, "mini strokes" x2, AVANI with CPap use, occasional low back pain/disc disease, gout, hypothyroid Last Myocardial Infarction Date:: 04/19/23 History of Any Multi-Drug Resistant Organisms: MRSA Date of last positivie culture/infection: 12/10/21 MDRO Source:: Finger-Right 5th Past Surgical History: Adenoidectomy, Bariatric Surgery, Cholecystectomy, Heart Catheterization, Heart Catheterization With Stent, Orthopedic Surgery, Tonsillectomy Additional Past Surgical History / Comment(s): 10/22/20 PCI with stents x2, lap banding, FX of right ankle repair pins / plate, fistual lt arm jul 2018, lt shoulder sx (d/t separation), colonoscopies, bilateral cataract removals/lens implants. LIF surgery 08/11/21 R LEG stacey placed January 2023 04/19/23 3 stents Past Anesthesia/Blood Transfusion Reactions: Motion Sickness Additional Past Anesthesia/Blood Transfusion Reaction / Comment(s): CL AUSTERPHOBIA Date of Last Stent Placement:: 04/19/23 Past Psychological History: Anxiety Additional Psychological History / Comment(s): Pt resides with his spouse. He no longer drives d/t vision loss. His spouse drives and organizes his medications for him. He has a walker and uses a wheelchair if going distances (dialysis days). Smoking Status: Former smoker Past Alcohol Use History: None Reported Additional Past Alcohol Use History / Comment(s): Patient was a smoker of 2-3 packs per day for 35 years and quit in 2006. Past Drug Use History: None Reported - Past Family History Mother History Unknown: Yes Family Medical History: Coronary Artery Disease (CAD), Myocardial Infarction (MA) Additional Family Medical History / Comment(s): Mother at age 58 from multiple sclerosis Father Family Medical History: CVA/TIA, Myocardial Infarction (MA) Additional Family Medical History / Comment(s): Father had history of MA and CVA followed by a second MA and CVA and at age 65. Brother(s) Additional Family Medical History / Comment(s): . Medications and Allergies Home Medications Medication Instructions Recorded Confirmed Type Levothyroxine Sodium 100 mcg PO DAILY 07/06/17 01/25/24 History Torsemide [Demadex] 40 mg PO DAILY 09/10/19 01/25/24 History HYDROcodone/APAP 10-325MG [[place] 1 tab PO 5XD PRN 11/24/20 01/25/24 History 10-325] Insulin Regular, Human [NovoLIN R 8 - 20 unit SQ ACHS PRN 11/24/20 01/25/24 History Flexpen] FLUoxetine HCL [PROzac] 40 mg PO DAILY 30 Days #30 cap 10/16/22 01/25/24 Rx Apixaban [Eliquis] 2.5 mg PO BID 02/16/23 01/25/24 History carvediloL [Coreg] 6.25 mg PO TID #60 tab 04/25/23 01/25/24 Rx Atorvastatin [Lipitor] 40 mg PO HS 07/16/23 01/25/24 History Calcium Acetate [PhosLo] 667 mg PO AC-TID 07/16/23 01/25/24 History Calcium Acetate [PhosLo] 667 mg PO DAILY PRN 07/16/23 01/25/24 History Insulin Regular, Human [NovoLIN R See Protocol SQ ACHS PRN 07/16/23 01/25/24 History Flexpen] Amitriptyline HCl [Elavil] 25 mg PO HS PRN 11/23/23 01/25/24 History Folic Acid/Vit B Complex and C 0.8 mg PO DAILY 11/23/23 01/25/24 History [Bryanna-Olimpia Tablet] Insulin Detemir [Levemir Flexpen] 25 - 30 units SQ HS 11/23/23 01/25/24 History LORazepam 1 mg PO BID PRN 11/23/23 01/25/24 History Midodrine HCl [ProAmatine] 10 mg PO AC-TID PRN 11/23/23 01/25/24 History Aspirin 81 mg PO DAILY 30 Days #30 tab 11/26/23 01/25/24 Rx Clopidogrel [Plavix] 75 mg PO DAILY 90 Days #90 tab 11/26/23 01/25/24 Rx Midodrine HCl [ProAmatine] 15 mg PO MOWEFR@0530 01/25/24 01/25/24 History Allergies Allergy/AdvReac Type Severity Reaction Status Date / Time No Known Allergies Allergy Verified 01/25/24 16:51 Physical Exam Vitals: Vital Signs Temp Pulse Resp BP Pulse Ox 02/02/24 07:20 97.5 F L 56 L 18 83/42 100 02/02/24 05:27 97.5 F L 93 16 93/60 100 02/01/24 22:09 87 117/66 02/01/24 19:23 97.9 F 93 16 100 02/01/24 19:16 97.9 F 89 17 128/68 100 02/01/24 14:00 82 16 02/01/24 13:39 97.8 F 82 16 99/64 99 Intake and Output 02/01/24 02/02/24 02/02/24 22:59 06:59 14:59 Intake Total 400 Output Total 3400 0 Balance -3000 0 Intake: Hemodialysis 400 Output: Urine 0 0 Hemodialysis 3400 Results 01/26/24 06:08 01/28/24 10:04 Current Medications Generic Name Dose Route Start Last Admin Trade Name Freq PRN Reason Stop Dose Admin Hydrocodone Bitart/Acetaminophen 1 each 01/25/24 20:38 02/02/24 08:14 Hydrocodone/Apap 10-325mg 1 Each Tab PO 1 each 5XD PRN Administration Pain Amitriptyline HCl 25 mg 01/25/24 20:38 Amitriptyline Hcl 25 Mg Tab PO HS PRN nerve pain/sleep Apixaban 2.5 mg 01/25/24 21:00 02/02/24 08:15 Apixaban 2.5 Mg Tablet PO 2.5 mg BID ALINE Administration Protocol Atorvastatin Calcium 40 mg 01/25/24 21:00 02/01/24 20:34 Atorvastatin 40 Mg Tab PO 40 mg HS ALINE Administration Calcium Acetate 667 mg 01/26/24 07:30 02/02/24 08:15 Calcium Acetate 667 Mg Tab PO 667 mg AC-TID ALINE Administration Calcium Carbonate/Glycine 500 mg 01/29/24 10:43 01/30/24 23:03 Calcium Carbonate 500 Mg Chewable PO 500 mg QID PRN Administration Heartburn Clopidogrel Bisulfate 75 mg 01/26/24 09:00 02/02/24 08:15 Clopidogrel 75 Mg Tab PO 75 mg DAILY ALINE Administration Dextrose/Water 25 ml 01/25/24 20:42 Dextrose 50% Syringe 50 Ml IVP PER PROTOCOL PRN Hypoglycemia Protocol Dextrose/Water 50 ml 01/25/24 20:42 Dextrose 50% Syringe 50 Ml IVP PER PROTOCOL PRN Hypoglycemia Protocol Famotidine 20 mg 01/27/24 09:00 02/02/24 08:15 Famotidine 20 Mg Tab PO 20 mg DAILY ALINE Administration Fluoxetine HCl 40 mg 01/26/24 09:00 02/02/24 08:15 Fluoxetine Hcl 20 Mg Cap PO 40 mg DAILY ALINE Administration Hydromorphone HCl 1 mg 01/31/24 13:41 02/02/24 06:05 Hydromorphone 1 Mg/Ml 1 Ml Syringe IVP 1 mg Q6HR PRN Administration Pain Ampicillin Sodium/Sulbactam 100 mls @ 200 mls/hr 01/31/24 11:30 02/02/24 08:15 Sodium 3 gm/ Sodium Chloride IVPB 200 mls/hr Q12HR ALINE Administration Protocol Insulin Aspart 0 unit 01/25/24 21:00 02/02/24 05:58 Insulin Aspart (Novolog) 100 Unit/Ml Vial SQ Not Given ACHS ALINE Protocol Insulin Detemir 10 unit 01/25/24 21:00 02/01/24 22:06 Insulin Detemir (Levemir) 100 Unit/Ml Syr SQ 10 unit HS ALINE Administration Lactulose 20 gm 01/29/24 10:43 Lactulose 20 Gm/30 Ml Cup PO DAILY PRN Constipation Levothyroxine Sodium 100 mcg 01/26/24 06:30 02/02/24 06:04 Levothyroxine 100 Mcg Tab PO 100 mcg DAILY@0630 ALINE Administration Lidocaine 1 patch 02/01/24 15:30 02/02/24 08:14 Lidocaine 4% Patch TOPICAL 1 patch DAILY ALINE Administration Protocol Lorazepam 1 mg 01/25/24 20:38 Lorazepam 1 Mg Tab PO BID PRN Anxiety Metoprolol Tartrate 12.5 mg 01/30/24 21:00 02/02/24 08:16 Metoprolol Tartrate 12.5 Mg Tab PO Not Given BID ALINE Midodrine 15 mg 01/27/24 05:30 02/01/24 04:47 Midodrine 5 Mg Tab PO 15 mg MOWEFR@0530 ALINE Administration Midodrine 10 mg 01/28/24 17:30 02/02/24 06:06 Midodrine 5 Mg Tab PO 10 mg AC-TID ALINE Administration Miscellaneous Information 1 each 01/27/24 10:02 Magnesium Replacement Protocol 1 Each Misc MISCELLANE DAILY PRN Per Protocol Protocol Multivit/Ca Carb/B Cmplx/FA/Prenat 1 each 01/26/24 09:00 02/02/24 08:16 Folic Acid-Vit B Complex-Vit C 1 Cap PO 1 each DAILY ALINE Administration Naloxone HCl 0.2 mg 01/25/24 17:31 Naloxone 0.4 Mg/Ml 1 Ml Vial IV Q2M PRN Opioid Reversal Ondansetron HCl 4 mg 01/25/24 17:31 Ondansetron 4 Mg/2 Ml Vial IVP Q8HR PRN Nausea And Vomiting Intake and Output 02/01/24 02/02/24 02/02/24 22:59 06:59 14:59 Intake Total 400 Output Total 3400 0 Balance -3000 0 Intake: Hemodialysis 400 Output: Urine 0 0 Hemodialysis 3400 01/26/24 06:08 01/28/24 10:04
--- NOTE | 2024-02-02 13:53 | P.PN ---
Subjective Progress Note Date: 02/02/24 This is a pleasant 63 year old male with medical history significant for CAD, severe cardiomyopathy, status post stenting by Dr. Jimenez most recently in April 2023 of the LAD, history of paroxysmal atrial fibrillation, end-stage renal disease maintained on hemodialysis MWF. Patient comes in to the ER with complaints of multiple wounds on his upper and lower extremities which patient started after he was scratched by his puppy. Patient also has noticed increased swelling to the right foot with bleeding from the great toe. Patient is unsure if he sustained any trauma to the foot. He has denied fever or chills at home. The wound was cultured in the ER. Foot xray reveals no obvious lytic destruction in either foot to suggest a contiguous osteomyelitis. There is significant periprosthetic lucency in the right hindfoot especially within the calcaneus related to the patients large retrograde nail. Patient has been started on empiric antibiotics with IV vancomycin and ID on consultation. Nephrology on consultation and patient is scheduled for usual hemodialysis session tomorrow. 01/27/2024 Patient is evaluated today on the medical floor. Scheduled to undergo hemodialysis today. Received 15 mg of midodrine was having low blood pressures. Received an extra 10 mg of midodrine. Now up to 120s systolic. Patient was evaluated by wound care. Dressings are intact. Foot xray of the right ulcer re veals no radiographic evidence for a contiguous osteomyelitis. The AP directed calcaneal screw is broken at the level of the stacey. Periprosthetic lucency here up to 5 mm is similar. Patient has concerns with low blood pressure and wants to make sure he doesn't have a pericardial effusion. 01/28/2024 Patient is evaluated today in follow-up. Patient underwent hemodialysis yesterday with 2 L of fluid off. Patient did not meet the ultrafiltration goal as he was hypotensive prior to the start of hemodialysis. Midodrine has been adjusted as per patient's home dosing of 10 mg 3 times a day which takes as needed and does takes 15 mg prior to dialysis on Tuesday. Patient continues to feel dizzy with marginal blood pressures and this should improve with the addition of scheduled midodrine. Metoprolol was changed to carvedilol secondary to the low blood pressures. Once his blood pressure improves patient can be adjusted to carvedilol. Patient also states that he has not taking aspirin 81 mg daily and this has been discontinued he does continue on Plavix and Eliquis. Orthopedics was consulted secondary to concern for the broken calcaneal screw of the right ankle and patient had a subsequent x-ray completed which reveals fixation changes with evidence of loosening and hardware failure as seen with prior. 01/29/2024 Patient is evaluated in follow-up today. He has been resumed on his midodrine 10 mg 3 times a day and reports improvement in his dizziness and blood pressure is maintaining in the 100s systolic. He does continue on metoprolol and carvedilol remains on hold at this time. Wound culture showing presumptive Staph aureus. Orthopedics has evaluated the patient and not recommending any surgical intervention at this time. Pending evaluation by vascular surgery. 01/30/2024 Patient evaluated today in follow up. continues on midodrine 10 mg TID with improvement in his blood pressure. Continues on metoprolol which will further be decreased to 12.5 mg BID. Wound culture of the left arm showing staphylococcus aureus. His blood culture is negative so far. Wound culture of the right great toe is final and negative. Vascular has evaluated the patient and no plans for surgical intervention at this time. Patient continues on IV vancomycin. ID following closely. 02/01/2024 Patient is evaluated in follow up. Requiring IV dilaudid for breakthrough pain which is helping with the lower extremities however, his right lower back has been bothering him. Patient scheduled to undergo his usual hemodialysis session today. Wound cultures showing staphylococcus aureus and patient is continued on IV unasyn. Vascular surgery is now recommending right great toe amputation. 02/02/2024 Is evaluated today in follow-up he does continue to report significant lower back pain which is chronic in nature as well as lower extremity pain. He is receiving IV Dilaudid 1 mg every 6 hours additionally he is on [place] 5 times a day. Patient is considered for a right great toe amputation with Dr. Levy. Cardiology was consulted for surgical clearance. They recommended to continue all other additional cardiac medications and to continue Plavix but would re commend to hold Eliquis if surgery is anticipated. An EKG will be obtained prior to surgery. Patient continues on IV antibiotics in the form of Unasyn for the Staphylococcus aureus. Review of Systems Constitutional: Denied any fatigue denied any fever. Cardio vascular: denied any chest pain, palpitations Gastrointestinal: denied any nausea, vomiting, diarrhea Pulmonary: Denied any shortness of breath cough Neurologic denied any new focal deficits All inpatient medications were reviewed and appropriate changes in these medications as dictated in the interval history and assessment and plan. PHYSICAL EXAMINATION: GENERAL: The patient is alert and oriented x3, not in any acute distress. Well developed, well nourished. HEENT: Pupils are round and equally reacting to light. EOMI. No scleral icterus. No conjunctival pallor. Normocephalic, atraumatic. No pharyngeal erythema. No thyromegaly. CARDIOVASCULAR: S1 and S2 present. No murmurs, rubs, or gallops. PULMONARY: Chest is clear to auscultation, n Ramirez A1c has not beeno wheezing or crackles. ABDOMEN: Soft, nontender, nondistended, normoactive bowel sounds. No palpable organomegaly. MUSCULOSKELETAL: No joint swelling or deformity. EXTREMITIES: No cyanosis, clubbing, or pedal edema. Multiple finger amputations bilaterally NEUROLOGICAL: Gross neurological examination did not reveal any focal deficits. SKIN: No rashes. Multiple lesions open to the right and left upper extremity. Sanguineous drainage from the right great toe Assessment and Plan Right foot cellulitis and right toe wound concern for diabetic foot infection. Cultures showing stapyhlococcus aureus. IV vancomycin and ID consulted. Wound care will be consulted Multiple wounds and right upper extremity cellulitis; open to bilateral upper and lower extremity Gangrenous right toe patient is being considered for surgical amputation. End stage renal disease maintained on hemodialysis MWF Coronary artery disease with prior PCI remains on plavix per patient no longer on aspirin per her surgical technology instructor and this has been discontinued. 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 Atrial fibrillation, paroxysmal anticoagulated with eliquis which has been resumed Diabetes Mellitus type 2 with diabetic neuropathy Hyperlipidemia continues on statin therapy History of TIA History of sleep apnea with cpap use Hypothyroidism Anxiety Hx of nicotine use GI prophylaxis DVT prophylaxis Full Code Local wound care recommended with absorptive silver moistened with gauze to lower extremity wounds and to the upper extremity wounds apply honey gel dry ga uze. Vascular has been consulted for evaluation. ID following cultures remains on IV Vancomycin, hemodialysis MWF. Due to decreased blood pressures carvedilol has been adjusted to metoprolol. Discontinued torsemide and aspirin. Adjustments made to midodrine. Blood cultures taken. Orthopedics recommending no surgical intervention at his time due to the broken hardware in the right heel. Vascular recommending possible right great toe amputation. Repeat blood work. Cardiology consulted with no complete contraindications to surgery recommending to hold Eliquis if patient is going for surgical amputation. The impression and plan of care has been dictated by Ingrid Schneider, Nurse Practitioner as directed. Dr. Mil MD I have performed a history and physical examination and medical decision making of this patient, discussed the same with the dictator, and agree with the dictators assessment and plan as written, documented as a scribe. Based on total visit time, I have performed more than 50% of this visit. Objective - Vital Signs Vital signs: Vital Signs Temp 97.5 F L 02/02/24 07:20 Pulse 56 L 02/02/24 07:20 Resp 18 02/02/24 07:20 BP 83/42 02/02/24 07:20 Pulse Ox 100 02/02/24 07:20 FiO2 Intake & Output 02/01/24 02/02/24 02/02/24 18:59 06:59 18:59 Intake Total 337 400 Output Total 0 3400 Balance 337 -3000 Intake: Oral 337 Hemodialysis 400 Output: Urine 0 0 Hemodialysis 3400 - Labs CBC & Chem 7: 01/26/24 06:08 01/28/24 10:04 Labs: Abnormal Lab Results - Last 24 Hours (Table) 02/01/24 02/01/24 02/02/24 Range/Units 16:42 20:59 05:48 POC Glucose (mg/dL) 167 H 137 H 143 H (70-110) mg/dL 02/02/24 Range/Units 12:05 POC Glucose (mg/dL) 185 H (70-110) mg/dL Assessment and Plan Time with Patient: Less than 30
--- NOTE | 2024-02-02 15:56 | P.PN ---
Subjective Progress Note Date: 02/01/24 Principal diagnosis: Reason for follow-up is left upper extremity and right big toe Patient is a 63-year-old male with a past medical history significant for coronary artery disease heart failure with CVA TIA diabetes mellitus hypertension [place] patient did have a multiple limitation to bilateral hand fingers because of infection patient now presenting to the hospital with multiple open wounds to the left upper extremity, failing outpatient antibiotic therapy. On today's evaluation that is 02/01/2024, Patient is afebrile patient is currently on room air and denies having any shortness of breath, the patient denies any chest pain or cough, the patient denies any nausea vomiting did not have any abdominal pain and no diarrhea, the patient denies any worsening pain to the right big toe No new labs has been obtained today Objective - Vital Signs Vital signs: Vital Signs Temp 97.5 F L 02/01/24 07:17 Pulse 74 02/01/24 08:00 Resp 18 02/01/24 08:00 BP 92/52 02/01/24 07:17 Pulse Ox 100 02/01/24 07:17 FiO2 Intake & Output 01/31/24 02/01/24 02/01/24 18:59 06:59 18:59 Intake Total 857 100 Balance 857 100 Weight 126 kg Intake: Oral 857 100 Other: # Voids 0 - Exam GENERAL DESCRIPTION: Middle-age male lying in bed in no distress RESPIRATORY SYSTEM: Unlabored breathing , decreased breath sounds at bases HEART: S1 S2 regular rate and rhythm , ABDOMEN: Soft , no tenderness EXTREMITIES: Left upper extremity wounds have dried out redness has improved, right big toe did have a necrotic wound on the plantar aspect swelling slightly decreased - Labs CBC & Chem 7: 01/26/24 06:08 01/28/24 10:04 Labs: Abnormal Lab Results - Last 24 Hours (Table) 01/31/24 01/31/24 02/01/24 Range/Units 17:34 21:19 06:10 POC Glucose (mg/dL) 162 H 272 H 141 H (70-110) mg/dL 02/01/24 Range/Units 12:00 POC Glucose (mg/dL) 270 H (70-110) mg/dL Microbiology - Last 24 Hours (Table) 01/28/24 10:04 Blood Culture - Preliminary Blood 01/27/24 10:40 Anaerobic Culture - Final Toe - Right First 01/27/24 11:35 Anaerobic Culture - Final Arm - Left Assessment and Plan (1) Left arm cellulitis Current Visit: Yes Status: Acute Code(s): L03.114 - CELLULITIS OF LEFT UPPER LIMB SNOMED Code(s): 36950784833102716 (2) Type 2 diabetes mellitus with foot ulcer Current Visit: Yes Status: Acute Code(s): E11.621 - TYPE 2 DIABETES MELLITUS WITH FOOT ULCER; L97.509 - NON-PRESSURE CHRONIC ULCER OTH PRT UNSP FOOT W UNSP SEVERITY SNOMED Code(s): 652385358 (3) Diabetic foot ulcer Current Visit: Yes Status: Acute Code(s): E11.621 - TYPE 2 DIABETES MELLITUS WITH FOOT ULCER; L97.509 - NON-PRESSURE CHRONIC ULCER OTH PRT UNSP FOOT W UNSP SEVERITY SNOMED Code(s): 122642461 Plan: 1patient with multiple wound to the left upper extremity [facility] or concerning for possible folliculitis likely from a skin mickie such as staph or strep and failing outpatient oral antibiotic therapy. 2patient also have right big toe diabetic foot ulcer and a possible component of cellulitis likely forming gram-positive skin mickie 3-culture currently growing MSSA, x-ray of the right foot did not mention any bony destruction to the right big toe 4patient left upper extremity wounds are healing well however did have a necrotic ulcer on the plantar aspect of the right big toe patient is currently on Unasyn to continue vascular surgery plan for possible right big toe amputation with the patient seem to be agreeable Dictation was produced using [employer] ric[employer] plcation software. please excuse any grammatical, word or spelling errors. Time with Patient: Less than 30
--- NOTE | 2024-02-02 15:57 | P.PN ---
Subjective Progress Note Date: 02/02/24 Principal diagnosis: Reason for follow-up is left upper extremity and right big toe Patient is a 63-year-old male with a past medical history significant for coronary artery disease heart failure with CVA TIA diabetes mellitus hypertension [place] patient did have a multiple limitation to bilateral hand fingers because of infection patient now presenting to the hospital with multiple open wounds to the left upper extremity, failing outpatient antibiotic therapy. On today's evaluation that is 02/02/2024, patient has been afebrile, patient is breathing comfortably and is currently on room air, patient denies having any significant cough no chest pain shortness of breath, patient denies nausea vomiting or diarrhea and no abdominal pain patient denies pain to the right big toe on the left upper extremity wound area No new labs has been obtained today Objective - Vital Signs Vital signs: Vital Signs Temp 97.5 F L 02/02/24 07:20 Pulse 56 L 02/02/24 07:20 Resp 18 02/02/24 07:20 BP 83/42 02/02/24 07:20 Pulse Ox 100 02/02/24 07:20 FiO2 Intake & Output 02/01/24 02/02/24 02/02/24 18:59 06:59 18:59 Intake Total 337 400 Output Total 0 3400 Balance 337 -3000 Intake: Oral 337 Hemodialysis 400 Output: Urine 0 0 Hemodialysis 3400 - Exam GENERAL DESCRIPTION: Middle-age male lying in bed in no distress RESPIRATORY SYSTEM: Unlabored breathing , decreased breath sounds at bases HEART: S1 S2 regular rate and rhythm , ABDOMEN: Soft , no tenderness EXTREMITIES: Left upper extremity wounds have dried out redness has improved, right big toe with ulcer on the plantar aspect with some skin necrosis chronic swelling slightly decreased - Labs CBC & Chem 7: 01/26/24 06:08 01/28/24 10:04 Labs: Abnormal Lab Results - Last 24 Hours (Table) 02/01/24 02/01/24 02/02/24 Range/Units 16:42 20:59 05:48 POC Glucose (mg/dL) 167 H 137 H 143 H (70-110) mg/dL 02/02/24 Range/Units 12:05 POC Glucose (mg/dL) 185 H (70-110) mg/dL Assessment and Plan (1) Left arm cellulitis Current Visit: Yes Status: Acute Code(s): L03.114 - CELLULITIS OF LEFT UPPER LIMB SNOMED Code(s): 38720670254358379 (2) Type 2 diabetes mellitus with foot ulcer Current Visit: Yes Status: Acute Code(s): E11.621 - TYPE 2 DIABETES MELLITUS WITH FOOT ULCER; L97.509 - NON-PRESSURE CHRONIC ULCER OTH PRT UNSP FOOT W UNSP SEVERITY SNOMED Code(s): 006933977 (3) Diabetic foot ulcer Current Visit: Yes Status: Acute Code(s): E11.621 - TYPE 2 DIABETES MELLITUS WITH FOOT ULCER; L97.509 - NON-PRESSURE CHRONIC ULCER OTH PRT UNSP FOOT W UNSP SEVERITY SNOMED Code(s): 729999448 Plan: 1patient with multiple wound to the left upper extremity admitted to the [facility] or concerning for possible folliculitis likely from a skin mickie such as staph or strep and failing outpatient oral antibiotic therapy. 2patient also have right big toe diabetic foot ulcer and a possible component of cellulitis likely forming gram-positive skin mickie 3-culture currently growing MSSA, x-ray of the right foot did not mention any bony destruction to the right big toe 4patient left upper extremity wounds are healing well however did have a necrotic ulcer on the plantar aspect of the right big toe may have shown some improvement which is has been shared with the surgeon who will be evaluating the patient and planning for surgery versus no surgery for now continue with Unasyn patient and the has multiple questions concern close has been answered in layman terms Dictation was produced using [employer] dictation software. please excuse any grammatical, word or spelling errors. Time with Patient: Less than 30
--- NOTE | 2024-02-02 16:47 | P.PN ---
Progress Note - Text 63-year-old gentleman history of coronary artery disease patient has a right big toe infected wound involving the plantar and dorsal aspect along with nailbed is exposed patient is scheduled for right big toe ray amputation risk and complication discussed patient is n.p.o. midnight
[2024-02-02 17:29] LABS: Glucose,Whole Blood 244 mg/dL (70-110)
[2024-02-02 20:48] LABS: Glucose,Whole Blood 173 mg/dL (70-110)
[2024-02-03 06:12] LABS: Glucose,Whole Blood 175 mg/dL (70-110)
[2024-02-03 08:33] LABS: Basophils # (A) 0.06 X 10*3/uL (0.00-0.10); Basophils % (A) 0.7 %; Eosinophils # (A) 0.26 X 10*3/uL (0.04-0.35); Eosinophils % (A) 3.1 %; HCT 35.3 % (39.6-50.0); HGB 11.2 g/dL (13.0-17.0); Lymphocytes % (A) 15.6 %; MCH 31.5 pg (27.0-32.0); MCHC 31.7 g/dL (32.0-37.0); MCV 99.4 FL (80.0-97.0); Monocytes # (A) 0.53 X 10*3/uL (0.20-1.00); Monocytes % (A) 6.4 %; NRBC Per 100 WBC 0 X 10*3/uL (0.00-0.01); Neutrophils # (A) 6.14 X 10*3/uL (1.80-7.70); Neutrophils % (A) 73.6 %; Platelet Count 148 X 10*3/uL (140-440); RBC 3.55 X 10*6/uL (4.40-5.60); RDW 14.8 % (11.5-14.5); WBC 8.34 X 10*3/uL (4.50-10.00)
[2024-02-03 09:01] LABS: BUN/Creat Ratio 8.47 Ratio (12.00-20.00); Blood Urea Nitrogen 50.8 mg/dL (9.0-27.0); Calcium 9.3 mg/dL (8.7-10.3); Carbon Dioxide 25.1 mmol/L (21.6-31.8); Chloride 92 mmol/L (96-109); Glucose 149 mg/dL (70-110); Potassium 5.2 mmol/L (3.5-5.5); Sodium 133 mmol/L (135-145)
--- NOTE | 2024-02-03 10:44 | P.PN ---
Subjective HISTORY OF PRESENT ILLNESS: This is a 63-year-old male with a past medical history significant for hypertension, hyperlipidemia, coronary artery disease, paroxysmal atrial fibrillation, pericardial effusion with tamponade s/p pericardial window, end- stage renal disease on dialysis, and prostate cancer. Patient follows in the office with Dr. Jimenez. We have been asked to see the patient in consultation for surgical clearance for amputation. Patient examined at the bedside. Patient currently denies chest pain or pressure. He denies shortness of breath. Vital signs are stable. Patient is tentatively scheduled for toe amputation tomorrow with Dr. Levy. DIAGNOSTICS: - EKG not available at the time of this dictation - Chest xray cardiomegaly and mild pulmonary vascular congestion. Correlate with BNP for congestive heart failure. - Laboratory data: WBC 6.9. Hemoglobin 11.7. Platelet count 145. Sodium 133. Potassium 4.4. BUN 35. Creatinine 4.33. proBNP 133,000 - Current home cardiac medications include Eliquis 2.5 mg twice a day, aspirin 81 mg daily, atorvastatin 40 mg at night, Plavix 75 mg daily, Demadex 40 mg daily, and carvedilol 3.25 mg 3 times a day. - Most recent echocardiogram obtained in November 2023 revealed ejection fraction 25 to 30%, moderate MR, mild aortic stenosis, mild TR - Cardiac catheterization history: 11/23/[address] Ngo revealing heavily calcified coronary arteries and calcified bilateral iliofemoral arteries, subtotally occluded mid LAD, mild disease in the RCA, moderate to severe disease in the left circumflex patient underwent. Stenting of the mid LAD with IVUS imaging. Patient also had cardiogenic shock at the start of the procedure with improvement in blood pressure at the end. 02/03/2024 Patient examined this morning at the bedside. Patient currently undergoing HD. Patient denies chest pain or pressure. He denies shortness of breath. Vital signs are stable. Telemetry reveals sinus mechanism. Patient is scheduled to undergo toe amputation today with vascular surgery. PHYSICAL EXAM: VITAL SIGNS: Reviewed. GENERAL: Well-developed in no acute distress. HEENT: Head is normocephalic. Pupils are equal, round. Sclerae anicteric. Mucous membranes of the mouth are moist. Neck supple. No JVD or thyromegaly LUNGS: Respirations even and unlabored. Lungs essentially clear to auscultation bilaterally. HEART: Regular rate and rhythm. S1 and S2 heard. ABDOMEN: Soft. Nondistended. Nontender. EXTREMITIES: Normal range of motion. No clubbing or cyanosis. Peripheral pulses intact. + bilateral lower extremity edema NEUROLOGIC: Awake and alert. Oriented x 3. ASSESSMENT: Right great toe gangrene, scheduled for amputation Coronary artery disease with recent stenting of the mid LAD, 11/23/2023 Paroxysmal atrial fibrillation End-stage renal disease on hemodialysis History of pericardial effusion with tamponade status post pericardial window, 2020 Hypertension Hyperlipidemia Prostate cancer s/p radiation in 2017 History of TIA History of amputations of the fingers of left hand secondary to osteomyelitis PLAN: Hold Eliquis in anticipation for surgery today. Resume postoperatively. Do not hold Plavix due to recent stenting Continue additional cardiac medications There are no absolute contraindications for patient to proceed with surgery from a cardiac standpoint We will sign off. Please reconsult if needed. Nurse practitioner note has been reviewed by physician. Signing provider agrees with the documented findings, assessment, and plan of care documented by MAIL DELIVERER as a scribe. Objective - Vital Signs Vital signs: Vital Signs Temp 98.2 F 02/03/24 02:19 Pulse 70 02/03/24 02:19 Resp 15 02/03/24 02:19 BP 106/68 02/03/24 02:19 Pulse Ox 96 02/03/24 02:19 FiO2 Intake & Output 02/02/24 02/03/24 02/03/24 18:59 06:59 18:59 Intake Total 637 Output Total 0 0 Balance 637 0 Intake: Oral 637 Output: Urine 0 0 - Labs CBC & Chem 7: 02/03/24 06:17 02/03/24 06:17 Labs: Abnormal Lab Results - Last 24 Hours (Table) 02/02/24 02/02/24 02/02/24 Range/Units 12:05 17:27 20:47 POC Glucose (mg/dL) 185 H 244 H 173 H (70-110) mg/dL 02/03/24 Range/Units 06:10 POC Glucose (mg/dL) 175 H (70-110) mg/dL Microbiology - Last 24 Hours (Table) 01/28/24 10:04 Blood Culture - Final Blood
--- NOTE | 2024-02-03 11:57 | P.PN ---
Subjective Patient is seen in follow-up for end-stage renal disease. He is maintained on hemodialysis on Tuesday schedule. Tolerating dialysis well. Resting in bed. Scheduled for to amputation today. Vital signs are stable. General: No acute distress. HEENT: Head exam is unremarkable. On nasal cannula. LUNGS: No audible rhonchi or wheezes. HEART: Rate and Rhythm are regular. ABDOMEN: Nontender, obese. EXTREMITITES: Trace edema. Objective - Vital Signs Vital signs: Vital Signs Temp 97.5 F L 02/03/24 07:35 Pulse 88 02/03/24 07:35 Resp 17 02/03/24 08:15 BP 131/70 02/03/24 07:35 Pulse Ox 100 02/03/24 07:35 FiO2 Intake & Output 02/02/24 02/03/24 02/03/24 18:59 06:59 18:59 Intake Total 637 Output Total 0 0 Balance 637 0 Intake: Oral 637 Output: Urine 0 0 - Labs CBC & Chem 7: 02/03/24 06:17 02/03/24 06:17 Labs: Abnormal Lab Results - Last 24 Hours (Table) 02/02/24 02/02/24 02/02/24 Range/Units 12:05 17:27 20:47 RBC (4.40-5.60) X 10*6/uL Hgb (13.0-17.0) g/dL Hct (39.6-50.0) % MCV (80.0-97.0) FL MCHC (32.0-37.0) g/dL RDW (11.5-14.5) % Immature Gran # (0.00-0.04) X 10*3/uL Sodium (135-145) mmol/L Chloride (96-109) mmol/L Anion Gap (4.00-12.00) mmol/L BUN (9.0-27.0) mg/dL Creatinine (0.6-1.5) mg/dL Est GFR (CKD-EPI) (>=60) BUN/Creatinine Ratio (12.00-20.00) Ratio Glucose (70-110) mg/dL POC Glucose (mg/dL) 185 H 244 H 173 H (70-110) mg/dL 02/03/24 02/03/24 02/03/24 Range/Units 06:10 06:17 06:17 RBC 3.55 L (4.40-5.60) X 10*6/uL Hgb 11.2 L (13.0-17.0) g/dL Hct 35.3 L (39.6-50.0) % MCV 99.4 H (80.0-97.0) FL MCHC 31.7 L (32.0-37.0) g/dL RDW 14.8 H (11.5-14.5) % Immature Gran # 0.05 H (0.00-0.04) X 10*3/uL Sodium 133 L (135-145) mmol/L Chloride 92 L (96-109) mmol/L Anion Gap 15.90 H (4.00-12.00) mmol/L BUN 50.8 H (9.0-27.0) mg/dL Creatinine 6.0 H (0.6-1.5) mg/dL Est GFR (CKD-EPI) 10 L (>=60) BUN/Creatinine Ratio 8.47 L (12.00-20.00) Ratio Glucose 149 H (70-110) mg/dL POC Glucose (mg/dL) 175 H (70-110) mg/dL Microbiology - Last 24 Hours (Table) 01/28/24 10:04 Blood Culture - Final Blood Assessment and Plan Plan: Assessment: 1. End-stage renal disease maintained on hemodialysis on Tuesday schedule. 2. Right lower extremity cellulitis maintained on antibiotics. ID and vascular surgery following. Scheduled for to amputation today. 3. Chronic kidney disease mineral bone disease. On PhosLo. 4. Diabetes mellitus. 5. Chronic hypotension maintained on midodrine as needed. Plan: Currently seen while undergoing hemodialysis. Next treatment Tuesday.
[2024-02-03 12:20] LABS: Glucose,Whole Blood 108 mg/dL (70-110)
[2024-02-03 12:53] LABS: Glucose,Whole Blood 101 mg/dL (70-110)
[2024-02-03] MEDS: SODIUM CHLORIDE 0.9% 500 ML 500 ML IV ONE (12:57)
[2024-02-03] MEDS: DEXAMETHASONE SOD PHOSPHATE 4 MG/ML 1 ML VIAL IVP ONE (13:07)
[2024-02-03] MEDS: ONDANSETRON 4 MG/2 ML VIAL IVP ONE (13:07)
[2024-02-03] MEDS ORDERED: MIDAZOLAM 2 MG/2 ML VIAL ONE (13:13)
[2024-02-03] MEDS ORDERED: KETAMINE HCL IN 0.9 % NACL 50 MG/5 ML SYRINGE ONE (13:13)
[2024-02-03] MEDS ORDERED: PHENYLEPHRINE 10 MG/ML VIAL ONE (13:13)
[2024-02-03] MEDS ORDERED: PROPOFOL 10 MG/ML 20 ML VIAL IV ONE (13:13)
[2024-02-03] MEDS ORDERED: fentaNYL (PF) 50 MCG/ML 2 ML AMP ONE (13:13)
[2024-02-03] MEDS: LIDOCAINE 1% INJ 10MG/ML (20 ML MDV) SQ ONE ×2 (13:37)
[2024-02-03 14:37] LABS: Glucose,Whole Blood 116 mg/dL (70-110)
--- NOTE | 2024-02-03 16:30 | P.PN ---
Subjective Progress Note Date: 02/03/24 Principal diagnosis: Reason for follow-up is left upper extremity and right big toe Patient is a 63-year-old male with a past medical history significant for coronary artery disease heart failure with CVA TIA diabetes mellitus hypertension [place] patient did have a multiple limitation to bilateral hand fingers because of infection patient now presenting to the hospital with multiple open wounds to the left upper extremity, failing outpatient antibiotic therapy. On today's evaluation that is 02/03/2024,the patient denies any fever or any chills, patient is breathing comfortably on room air, the patient denies chest pain shortness of breath and no significant cough, patient denies abdominal pain, no nausea vomiting or diarrhea. Feeling better no new symptoms. Patient white count is 8.34, creatinine 6.0 Objective - Vital Signs Vital signs: Vital Signs Temp 97.0 F L 02/03/24 14:27 Pulse 57 L 02/03/24 14:27 Resp 16 02/03/24 14:27 BP 83/47 02/03/24 14:27 Pulse Ox 100 02/03/24 14:27 FiO2 Intake & Output 02/02/24 02/03/24 02/03/24 18:59 06:59 18:59 Intake Total 637 900 Output Total 0 0 3010 Balance 637 0 -2110 Intake: IV 400 Oral 637 Hemodialysis 500 Output: Urine 0 0 Hemodialysis 3000 Estimated Blood Loss 10 - Exam GENERAL DESCRIPTION: Middle-age male lying in bed in no distress RESPIRATORY SYSTEM: Unlabored breathing , decreased breath sounds at bases HEART: S1 S2 regular rate and rhythm , ABDOMEN: Soft , no tenderness EXTREMITIES: Left upper extremity wounds have dried out redness has improved, right big toe with ulcer on the plantar aspect with some skin necrosis chronic swelling slightly decreased - Labs CBC & Chem 7: 02/03/24 06:17 02/03/24 06:17 Labs: Abnormal Lab Results - Last 24 Hours (Table) 02/02/24 02/02/24 02/03/24 Range/Units 17:27 20:47 06:10 RBC (4.40-5.60) X 10*6/uL Hgb (13.0-17.0) g/dL Hct (39.6-50.0) % MCV (80.0-97.0) FL MCHC (32.0-37.0) g/dL RDW (11.5-14.5) % Immature Gran # (0.00-0.04) X 10*3/uL Sodium (135-145) mmol/L Chloride (96-109) mmol/L Anion Gap (4.00-12.00) mmol/L BUN (9.0-27.0) mg/dL Creatinine (0.6-1.5) mg/dL Est GFR (CKD-EPI) (>=60) BUN/Creatinine Ratio (12.00-20.00) Ratio Glucose (70-110) mg/dL POC Glucose (mg/dL) 244 H 173 H 175 H (70-110) mg/dL 02/03/24 02/03/24 02/03/24 Range/Units 06:17 06:17 14:35 RBC 3.55 L (4.40-5.60) X 10*6/uL Hgb 11.2 L (13.0-17.0) g/dL Hct 35.3 L (39.6-50.0) % MCV 99.4 H (80.0-97.0) FL MCHC 31.7 L (32.0-37.0) g/dL RDW 14.8 H (11.5-14.5) % Immature Gran # 0.05 H (0.00-0.04) X 10*3/uL Sodium 133 L (135-145) mmol/L Chloride 92 L (96-109) mmol/L Anion Gap 15.90 H (4.00-12.00) mmol/L BUN 50.8 H (9.0-27.0) mg/dL Creatinine 6.0 H (0.6-1.5) mg/dL Est GFR (CKD-EPI) 10 L (>=60) BUN/Creatinine Ratio 8.47 L (12.00-20.00) Ratio Glucose 149 H (70-110) mg/dL POC Glucose (mg/dL) 116 H (70-110) mg/dL Microbiology - Last 24 Hours (Table) 01/28/24 10:04 Blood Culture - Final Blood Assessment and Plan (1) Left arm cellulitis Current Visit: Yes Status: Acute Code(s): L03.114 - CELLULITIS OF LEFT UPPER LIMB SNOMED Code(s): 96666097468035831 (2) Type 2 diabetes mellitus with foot ulcer Current Visit: Yes Status: Acute Code(s): E11.621 - TYPE 2 DIABETES MELLITUS WITH FOOT ULCER; L97.509 - NON-PRESSURE CHRONIC ULCER OTH PRT UNSP FOOT W UNSP SEVERITY SNOMED Code(s): 438713832 (3) Diabetic foot ulcer Current Visit: Yes Status: Acute Code(s): E11.621 - TYPE 2 DIABETES MELLITUS WITH FOOT ULCER; L97.509 - NON-PRESSURE CHRONIC ULCER OTH PRT UNSP FOOT W UNSP SEVERITY SNOMED Code(s): 027646346 Plan: 1patient with multiple wound to the left upper extremity admitted to the dog [facility] or concerning for possible folliculitis likely from a skin mickie such as staph or strep and failing outpatient oral antibiotic therapy. 2patient also have right big toe diabetic foot ulcer and a possible component of cellulitis likely forming gram-positive skin mickie 3-culture currently growing MSSA, x-ray of the right foot did not mention any bony destruction to the right big toe 4patient left upper extremity wounds are healing well however did have a necrotic ulcer on the plantar aspect of the right big toe may have shown some improvement however chances of healing are very low per vascular surgeon and the patient has agreed for right big toe amputation scheduled for this afternoon we will continue with Unasyn and monitor clinical course closely Dictation was produced using [employer] dictation software. please excuse any g rammatical, word or spelling errors. Time with Patient: Less than 30
[2024-02-03 17:34] LABS: Glucose,Whole Blood 174 mg/dL (70-110)
[2024-02-03 21:03] LABS: Glucose,Whole Blood 345 mg/dL (70-110)
[2024-02-03] MEDS: APIXABAN 2.5 MG TABLET PO SCH (21:27)
--- NOTE | 2024-02-03 21:52 | OP ---
OPERATIVE REPORT DATE OF SERVICE : 02/03/2024 PREOPERATIVE DIAGNOSIS: Wet gangrene of the right foot involving the webspace between big toe and second toe. OPERATION: Ray amputation of the right foot big toe at metatarsophalangeal joint. DESCRIPTION OF PROCEDURE: This patient has a history of wet gangrene involving the right foot big toe. The patient was brought to the operating room. Right foot was prepped and draped applied in a sterile manner. Incision was made on the dorsal aspect of the foot at the interphalangeal joint. An elliptical incision deepened through skin, fat, and fascia, and tendons were divided. The medial and lateral incision made. Lateral incision made at the web space between the big toe and second toe, which was also ischemic, and the incision was extended to the plantar aspect of the foot, deepened through skin, fat, fascia, and tendons of extensor and plantaris tendons were divided. There was some bleeding points, which was electrocoagulated. To reduce the metatarsophalangeal joint, ligaments were divided and big toe was removed. The wound was copiously irrigated with hydrogen peroxide and saline. Hemostasis was well controlled. Skin edges were not very healthy. We just approximated the subcutaneous tissue and the fascia together. We could not close the skin because the skin was not healthy, which we left it open and Aquacel Silver was applied and the dressing was applied. The patient tolerated the procedure well. Blood loss was about 10 mL. The patient transferred to recovery room in satisfactory condition. MMJIMENAL / NARAYAN: [id number] / MTDD
[2024-02-04] MEDS: LORazepam 1 MG TAB PO PRN (01:15)
[2024-02-04] MEDS: LACTULOSE 20 GM/30 ML CUP PO PRN (05:31)
[2024-02-04 06:28] LABS: Glucose,Whole Blood 225 mg/dL (70-110)
[2024-02-04] MEDS: AMPICILLIN-SULBACTAM 3 GM in SODIUM CHLORIDE 0.9% 100 ML IVPB SCH (08:47)
[2024-02-04 11:40] LABS: Glucose,Whole Blood 254 mg/dL (70-110)
--- NOTE | 2024-02-04 11:53 | P.PN ---
Subjective Patient is seen in follow-up for end-stage renal disease. He is maintained on hemodialysis on Tuesday schedule. No problems with dialysis yesterday. Resting in bed. Underwent toe amputation yesterday. Vital signs are stable. General: No acute distress. HEENT: Head exam is unremarkable. On nasal cannula. LUNGS: No audible rhonchi or wheezes. HEART: Rate and Rhythm are regular. ABDOMEN: Nontender, obese. EXTREMITITES: Trace edema. Objective - Vital Signs Vital signs: Vital Signs Temp 98.0 F 02/04/24 06:55 Pulse 80 02/04/24 06:55 Resp 18 02/04/24 08:53 BP 135/68 02/04/24 06:55 Pulse Ox 100 02/04/24 06:55 FiO2 Intake & Output 02/03/24 02/04/24 02/04/24 18:59 06:59 18:59 Intake Total 900 222 Output Total 3015 0 Balance -2115 0 222 Intake: IV 400 Oral 222 Hemodialysis 500 Output: Urine 5 0 Hemodialysis 3000 Estimated Blood Loss 10 - Labs CBC & Chem 7: 02/03/24 06:17 02/03/24 06:17 Labs: Abnormal Lab Results - Last 24 Hours (Table) 02/03/24 02/03/24 02/03/24 Range/Units 14:35 17:32 21:01 POC Glucose (mg/dL) 116 H 174 H 345 H (70-110) mg/dL 02/04/24 02/04/24 Range/Units 06:26 11:38 POC Glucose (mg/dL) 225 H 254 H (70-110) mg/dL Assessment and Plan Plan: Assessment: 1. End-stage renal disease maintained on hemodialysis on Tuesday schedule. 2. Right lower extremity cellulitis maintained on antibiotics. ID and vascular surgery following. Status post toe amputation February 03, 2024. 3. Chronic kidney disease mineral bone disease. On PhosLo. 4. Diabetes mellitus. 5. Chronic hypotension maintained on midodrine as needed. Plan: Hemodialysis Tuesday.
[2024-02-04 17:57] LABS: Glucose,Whole Blood 278 mg/dL (70-110)
[2024-02-04 20:51] LABS: Glucose,Whole Blood 296 mg/dL (70-110)
--- NOTE | 2024-02-04 21:09 | P.PN ---
Subjective Progress Note Date: 02/04/24 Principal diagnosis: Reason for follow-up is left upper extremity and right big toe Patient is a 63-year-old male with a past medical history significant for coronary artery disease heart failure with CVA TIA diabetes mellitus hypertension DE patient did have a multiple limitation to bilateral hand fingers because of infection patient now presenting to the hospital with multiple open wounds to the left upper extremity, failing outpatient antibiotic therapy.Patient is status post right big toe amputation completed by vascular surgery as of 02/03/2024. On today's evaluation that is 02/04/2024,the patient remains to be afebrile, patient is on room air not requiring supplemental oxygen and denies any shortness of breath no chest pain or cough.Patient denies having any nausea or vomiting, no abdominal pain and no diarrhea has been reported, was complaining of some bleeding from the right big toe imitation site but no pain. No new labs has been obtained today Objective - Vital Signs Vital signs: Vital Signs Temp 98.2 F 02/04/24 02:26 Pulse 70 02/04/24 02:26 Resp 15 02/04/24 02:26 BP 105/66 02/04/24 02:26 Pulse Ox 100 02/04/24 02:26 FiO2 Intake & Output 02/03/24 02/04/24 02/04/24 18:59 06:59 18:59 Intake Total 900 Output Total 3015 0 Balance -2115 0 Intake: IV 400 Hemodialysis 500 Output: Urine 5 0 Hemodialysis 3000 Estimated Blood Loss 10 - Exam GENERAL DESCRIPTION: Middle-age male lying in bed in no distress RESPIRATORY SYSTEM: Unlabored breathing , decreased breath sounds at bases HEART: S1 S2 regular rate and rhythm , ABDOMEN: Soft , no tenderness EXTREMITIES: Left upper extremity wounds have dried out right foot wound is currently dressed - Labs CBC & Chem 7: 02/03/24 06:17 02/03/24 06:17 Labs: Abnormal Lab Results - Last 24 Hours (Table) 02/03/24 02/03/24 02/03/24 Range/Units 06:17 06:17 14:35 RBC 3.55 L (4.40-5.60) X 10*6/uL Hgb 11.2 L (13.0-17.0) g/dL Hct 35.3 L (39.6-50.0) % MCV 99.4 H (80.0-97.0) FL MCHC 31.7 L (32.0-37.0) g/dL RDW 14.8 H (11.5-14.5) % Immature Gran # 0.05 H (0.00-0.04) X 10*3/uL Sodium 133 L (135-145) mmol/L Chloride 92 L (96-109) mmol/L Anion Gap 15.90 H (4.00-12.00) mmol/L BUN 50.8 H (9.0-27.0) mg/dL Creatinine 6.0 H (0.6-1.5) mg/dL Est GFR (CKD-EPI) 10 L (>=60) BUN/Creatinine Ratio 8.47 L (12.00-20.00) Ratio Glucose 149 H (70-110) mg/dL POC Glucose (mg/dL) 116 H (70-110) mg/dL 02/03/24 02/03/24 02/04/24 Range/Units 17:32 21:01 06:26 RBC (4.40-5.60) X 10*6/uL Hgb (13.0-17.0) g/dL Hct (39.6-50.0) % MCV (80.0-97.0) FL MCHC (32.0-37.0) g/dL RDW (11.5-14.5) % Immature Gran # (0.00-0.04) X 10*3/uL Sodium (135-145) mmol/L Chloride (96-109) mmol/L Anion Gap (4.00-12.00) mmol/L BUN (9.0-27.0) mg/dL Creatinine (0.6-1.5) mg/dL Est GFR (CKD-EPI) (>=60) BUN/Creatinine Ratio (12.00-20.00) Ratio Glucose (70-110) mg/dL POC Glucose (mg/dL) 174 H 345 H 225 H (70-110) mg/dL Assessment and Plan (1) Left arm cellulitis Current Visit: Yes Status: Acute Code(s): L03.114 - CELLULITIS OF LEFT UPPER LIMB SNOMED Code(s): 11335220633836663 (2) Type 2 diabetes mellitus with foot ulcer Current Visit: Yes Status: Acute Code(s): E11.621 - TYPE 2 DIABETES MELLITUS WITH FOOT ULCER; L97.509 - NON-PRESSURE CHRONIC ULCER OTH PRT UNSP FOOT W UNSP SEVERITY SNOMED Code(s): 884472072 (3) Diabetic foot ulcer Current Visit: Yes Status: Acute Code(s): E11.621 - TYPE 2 DIABETES MELLITUS WITH FOOT ULCER; L97.509 - NON-PRESSURE CHRONIC ULCER OTH PRT UNSP FOOT W UNSP SEVERITY SNOMED Code(s): 152567560 Plan: 1patient with multiple wound to the left upper extremity admitted to the dog scratch or concerning for possible folliculitis likely from a skin mickie such as staph or strep and failing outpatient oral antibiotic therapy. 2patient also have right big toe diabetic foot ulcer and a possible component of cellulitis likely forming gram-positive skin mickie 3-culture currently growing MSSA, x-ray of the right foot did not mention any bony destruction to the right big toe 4patient left upper extremity wounds are healing and the patient is status post right big toe amputation, patient is currently covered with Unasyn with infected port removed may not need long-term antibiotic therapy questions were answered Dictation was produced using [employer] dictation software. please excuse any grammatical, word or spelling errors. Time with Patient: Less than 30
[2024-02-05 06:16] LABS: Glucose,Whole Blood 147 mg/dL (70-110)
[2024-02-05 09:30] LABS: Basophils % (A) 0.9 %; Eosinophils # (A) 0.22 X 10*3/uL (0.04-0.35); HCT 33.9 % (39.6-50.0); HGB 10.4 g/dL (13.0-17.0); Lymphocytes # (A) 2.35 X 10*3/uL (0.90-5.00); Lymphocytes % (A) 21.7 %; MCH 31.3 pg (27.0-32.0); MCHC 30.7 g/dL (32.0-37.0); MCV 102.1 FL (80.0-97.0); Mean Platelet Volume 10.7 FL (9.5-12.2); Monocytes # (A) 0.68 X 10*3/uL (0.20-1.00); Monocytes % (A) 6.3 %; NRBC Per 100 WBC 0.02 X 10*3/uL (0.00-0.01); Neutrophils # (A) 7.42 X 10*3/uL (1.80-7.70); Neutrophils % (A) 68.6 %; Platelet Count 155 X 10*3/uL (140-440); RBC 3.32 X 10*6/uL (4.40-5.60); RDW 14.8 % (11.5-14.5); WBC 10.82 X 10*3/uL (4.50-10.00)
--- NOTE | 2024-02-05 10:04 | P.PN ---
Progress Note - Text 63-year-old diabetic male patient had a wet gangrene of the right foot big toe patient had a right big toe ray amputation culture came back as a Staph aureus patient is under care of infectious disease on IV antibiotic today will change the dressing we placed extra silver and dressing was applied. Incision site looks clean recommend nonweightbearing
[2024-02-05 10:41] LABS: BUN/Creat Ratio 9.29 Ratio (12.00-20.00); Blood Urea Nitrogen 54.8 mg/dL (9.0-27.0); Chloride 93 mmol/L (96-109); Glucose 151 mg/dL (70-110); Potassium 5.5 mmol/L (3.5-5.5); Sodium 135 mmol/L (135-145)
[2024-02-05 10:42] LABS: Calcium 9.4 mg/dL (8.7-10.3); Carbon Dioxide 23.3 mmol/L (21.6-31.8)
--- NOTE | 2024-02-05 11:12 | P.PN ---
Subjective Patient is seen in follow-up for end-stage renal disease. He is maintained on hemodialysis on Tuesday schedule. No active complaints. Vital signs are stable. General: No acute distress. HEENT: Head exam is unremarkable. On nasal cannula. LUNGS: No audible rhonchi or wheezes. HEART: Rate and Rhythm are regular. ABDOMEN: Nontender, obese. EXTREMITITES: Trace edema. Objective - Vital Signs Vital signs: Vital Signs Temp 97.7 F 02/05/24 07:40 Pulse 61 02/05/24 07:40 Resp 18 02/05/24 08:28 BP 102/66 02/05/24 07:40 Pulse Ox 100 02/05/24 07:40 FiO2 Intake & Output 02/04/24 02/05/24 02/05/24 18:59 06:59 18:59 Intake Total 342 Output Total 0 Balance 342 0 Intake: Oral 342 Output: Urine 0 - Labs CBC & Chem 7: 02/05/24 06:07 02/05/24 06:07 Labs: Abnormal Lab Results - Last 24 Hours (Table) 02/04/24 02/04/24 02/04/24 Range/Units 11:38 17:55 20:50 WBC (4.50-10.00) X 10*3/uL RBC (4.40-5.60) X 10*6/uL Hgb (13.0-17.0) g/dL Hct (39.6-50.0) % MCV (80.0-97.0) FL MCHC (32.0-37.0) g/dL RDW (11.5-14.5) % Immature Gran # (0.00-0.04) X 10*3/uL NRBC/100 WBC Diff (0.00-0.01) X 10*3/uL Chloride (96-109) mmol/L Anion Gap (4.00-12.00) mmol/L BUN (9.0-27.0) mg/dL Creatinine (0.6-1.5) mg/dL Est GFR (CKD-EPI) (>=60) BUN/Creatinine Ratio (12.00-20.00) Ratio Glucose (70-110) mg/dL POC Glucose (mg/dL) 254 H 278 H 296 H (70-110) mg/dL 02/05/24 02/05/24 02/05/24 Range/Units 06:07 06:07 06:15 WBC 10.82 H (4.50-10.00) X 10*3/uL RBC 3.32 L (4.40-5.60) X 10*6/uL Hgb 10.4 L (13.0-17.0) g/dL Hct 33.9 L (39.6-50.0) % MCV 102.1 H (80.0-97.0) FL MCHC 30.7 L (32.0-37.0) g/dL RDW 14.8 H (11.5-14.5) % Immature Gran # 0.05 H (0.00-0.04) X 10*3/uL NRBC/100 WBC Diff 0.02 H (0.00-0.01) X 10*3/uL Chloride 93 L (96-109) mmol/L Anion Gap 18.70 H (4.00-12.00) mmol/L BUN 54.8 H (9.0-27.0) mg/dL Creatinine 5.9 H (0.6-1.5) mg/dL Est GFR (CKD-EPI) 10 L (>=60) BUN/Creatinine Ratio 9.29 L (12.00-20.00) Ratio Glucose 151 H (70-110) mg/dL POC Glucose (mg/dL) 147 H (70-110) mg/dL Assessment and Plan Plan: Assessment: 1. End-stage renal disease maintained on hemodialysis on Tuesday schedule. 2. Right lower extremity cellulitis maintained on antibiotics. ID and vascular surgery following. Status post toe amputation February 03, 2024. 3. Chronic kidney disease mineral bone disease. On PhosLo. 4. Diabetes mellitus. 5. Chronic hypotension maintained on midodrine as needed. Plan: Hemodialysis Tuesday. Potassium level slightly on the higher side. Lokelma 10 g once today. Renal diet.
[2024-02-05 12:10] LABS: Glucose,Whole Blood 211 mg/dL (70-110)
[2024-02-05] MEDS: SODIUM ZIRCONIUM CYCLOSILICATE 10 GM PACKET PO ONE (12:31)
--- NOTE | 2024-02-05 15:25 | P.PN ---
Subjective Progress Note Date: 02/03/24 63 year old male with medical history significant for CAD, severe cardiomyopathy, status post stenting by Dr. Jimenez most recently in April 2023 of the LAD, history of paroxysmal atrial fibrillation, end-stage renal disease maintained on hemodialysis MWF. Patient comes in to the ER with complaints of multiple wounds on his upper and lower extremities which patient started after he was scratched by his puppy. Patient also has noticed increased swelling to the right foot with bleeding from the great toe. Patient is unsure if he sustained any trauma to the foot. He has denied fever or chills at home. The wound was cultured in the ER. Foot xray reveals no obvious lytic destruction in either foot to suggest a contiguous osteomyelitis. There is significant periprosthetic lucency in the right hindfoot especially within the calcaneus related to the patients large retrograde nail. Patient has been started on empiric antibiotics with IV vancomycin and ID on consultation. Nephrology on consultation and patient is scheduled for usual hemodialysis session tomorrow. Objective - Vital Signs Vital signs: Vital Signs Temp 97.2 F L 02/03/24 12:56 Pulse 95 02/03/24 12:56 Resp 18 02/03/24 12:56 BP 111/55 02/03/24 12:56 Pulse Ox 100 02/03/24 12:56 FiO2 Intake & Output 02/02/24 02/03/24 02/03/24 18:59 06:59 18:59 Intake Total 637 100 Output Total 0 0 Balance 637 0 100 Intake: IV 100 Oral 637 Output: Urine 0 0 - Exam HEENT: Pupils are round and equally reacting to light. EOMI. No scleral icterus. No conjunctival pallor. Normocephalic, atraumatic. No pharyngeal erythema. No thyromegaly. CARDIOVASCULAR: S1 and S2 present. No murmurs, rubs, or gallops. PULMONARY: Chest is clear to auscultation, n Ramirez A1c has not beeno wheezing or crackles. ABDOMEN: Soft, nontender, nondistended, normoactive bowel sounds. No palpable o rganomegaly. MUSCULOSKELETAL: No joint swelling or deformity. EXTREMITIES: No cyanosis, clubbing, or pedal edema. Multiple finger amputations bilaterally NEUROLOGICAL: Gross neurological examination did not reveal any focal deficits. SKIN: No rashes. Multiple lesions open to the right and left upper extremity. Sanguineous drainage from the right great toe - Labs CBC & Chem 7: 02/05/24 06:07 02/05/24 06:07 Labs: Abnormal Lab Results - Last 24 Hours (Table) 02/02/24 02/02/24 02/03/24 Range/Units 17:27 20:47 06:10 RBC (4.40-5.60) X 10*6/uL Hgb (13.0-17.0) g/dL Hct (39.6-50.0) % MCV (80.0-97.0) FL MCHC (32.0-37.0) g/dL RDW (11.5-14.5) % Immature Gran # (0.00-0.04) X 10*3/uL Sodium (135-145) mmol/L Chloride (96-109) mmol/L Anion Gap (4.00-12.00) mmol/L BUN (9.0-27.0) mg/dL Creatinine (0.6-1.5) mg/dL Est GFR (CKD-EPI) (>=60) BUN/Creatinine Ratio (12.00-20.00) Ratio Glucose (70-110) mg/dL POC Glucose (mg/dL) 244 H 173 H 175 H (70-110) mg/dL 02/03/24 02/03/24 Range/Units 06:17 06:17 RBC 3.55 L (4.40-5.60) X 10*6/uL Hgb 11.2 L (13.0-17.0) g/dL Hct 35.3 L (39.6-50.0) % MCV 99.4 H (80.0-97.0) FL MCHC 31.7 L (32.0-37.0) g/dL RDW 14.8 H (11.5-14.5) % Immature Gran # 0.05 H (0.00-0.04) X 10*3/uL Sodium 133 L (135-145) mmol/L Chloride 92 L (96-109) mmol/L Anion Gap 15.90 H (4.00-12.00) mmol/L BUN 50.8 H (9.0-27.0) mg/dL Creatinine 6.0 H (0.6-1.5) mg/dL Est GFR (CKD-EPI) 10 L (>=60) BUN/Creatinine Ratio 8.47 L (12.00-20.00) Ratio Glucose 149 H (70-110) mg/dL POC Glucose (mg/dL) (70-110) mg/dL Microbiology - Last 24 Hours (Table) 01/28/24 10:04 Blood Culture - Final Blood Assessment and Plan Assessment: Right foot cellulitis and right toe wound concern for diabetic foot infection. Cultures showing stapyhlococcus aureus. IV vancomycin and ID consulted. Wound care will be consulted Multiple wounds and right upper extremity cellulitis; open to bilateral upper and lower extremity Gangrenous right toe patient is being considered for surgical amputation. End stage renal disease maintained on hemodialysis MWF Coronary artery disease with prior PCI remains on plavix per patient no longer on aspirin per her body coverer and this has been discontinued. 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 Atrial fibrillation, paroxysmal anticoagulated with eliquis which has been resumed Diabetes Mellitus type 2 with diabetic neuropathy Hyperlipidemia continues on statin therapy History of TIA History of sleep apnea with cpap use Hypothyroidism Anxiety Hx of nicotine use GI prophylaxis DVT prophylaxis Full Code Local wound care recommended with absorptive silver moistened with gauze to lower extremity wounds and to the upper extremity wounds apply honey gel dry gauze. Vascular has been consulted for evaluation. ID following cultures remains on IV Vancomycin, hemodialysis MWF. Due to decreased blood pressures carvedilol has been adjusted to metoprolol. Discontinued torsemide and aspirin. Adjustments made to midodrine. Blood cultures taken. Orthopedics recommending no surgical intervention at his time due to the broken hardware in the right heel. Vascular recommending possible right great toe amputation. Repeat blood work. Cardiology consulted with no complete contraindications to surgery recommending to hold Eliquis if patient is going for surgical amputation.
--- NOTE | 2024-02-05 15:28 | P.PN ---
Subjective Progress Note Date: 02/04/24 63 year old male with medical history significant for CAD, severe cardiomyopathy, status post stenting by Dr. Jimenez most recently in April 2023 of the LAD, history of paroxysmal atrial fibrillation, end-stage renal disease maintained on hemodialysis MWF. Patient comes in to the ER with complaints of multiple wounds on his upper and lower extremities which patient started after he was scratched by his puppy. Patient also has noticed increased swelling to the right foot with bleeding from the great toe. Patient is unsure if he sustained any trauma to the foot. He has denied fever or chills at home. The wound was cultured in the ER. Foot xray reveals no obvious lytic destruction in either foot to suggest a contiguous osteomyelitis. There is significant periprosthetic lucency in the right hindfoot especially within the calcaneus related to the patients large retrograde nail. Patient has been started on empiric antibiotics with IV vancomycin and ID on consultation. Nephrology on consultation and patient is scheduled for usual hemodialysis session tomorrow. 02/04/2024 the patient denies any fever or any chills, patient is breathing comfortably on room air, the patient denies chest pain shortness of breath and no significant cough, patient denies abdominal pain, no nausea vomiting or diarrhea. Feeling better no new symptoms. Patient white count is 8.34, creatinine 6.0 patient with multiple wound to the left upper extremity admitted to the dog scratch or concerning for possible folliculitis likely from a skin mickie such as staph or strep and failing outpatient oral antibiotic therapy. patient also have right big toe diabetic foot ulcer and a possible component of cellulitis likely forming gram-positive skin mickie -culture currently growing MSSA, x-ray of the right foot did not mention any bony destruction to the right big toe patient left upper extremity wounds are healing and the patient is status post right big toe amputation, patient is currently covered with Unasyn with infected port removed Objective - Vital Signs Vital signs: Vital Signs Temp 98.0 F 02/04/24 06:55 Pulse 80 02/04/24 06:55 Resp 18 02/04/24 08:53 BP 135/68 02/04/24 06:55 Pulse Ox 100 02/04/24 06:55 FiO2 Intake & Output 02/03/24 02/04/24 02/04/24 18:59 06:59 18:59 Intake Total 900 222 Output Total 3015 0 Balance -2115 0 222 Intake: IV 400 Oral 222 Hemodialysis 500 Output: Urine 5 0 Hemodialysis 3000 Estimated Blood Loss 10 - Labs CBC & Chem 7: 02/05/24 06:07 02/05/24 06:07 Labs: Abnormal Lab Results - Last 24 Hours (Table) 02/03/24 02/03/24 02/03/24 Range/Units 14:35 17:32 21:01 POC Glucose (mg/dL) 116 H 174 H 345 H (70-110) mg/dL 02/04/24 02/04/24 Range/Units 06:26 11:38 POC Glucose (mg/dL) 225 H 254 H (70-110) mg/dL
--- NOTE | 2024-02-05 15:31 | P.PN ---
Subjective Progress Note Date: 02/05/24 63 year old male with medical history significant for CAD, severe cardiomyopathy, status post stenting by Dr. Jimenez most recently in April 2023 of the LAD, history of paroxysmal atrial fibrillation, end-stage renal disease maintained on hemodialysis MWF. Patient comes in to the ER with complaints of multiple wounds on his upper and lower extremities which patient started after he was scratched by his puppy. Patient also has noticed increased swelling to the right foot with bleeding from the great toe. Patient is unsure if he sustained any trauma to the foot. He has denied fever or chills at home. The wound was cultured in the ER. Foot xray reveals no obvious lytic destruction in either foot to suggest a contiguous osteomyelitis. There is significant periprosthetic lucency in the right hindfoot especially within the calcaneus related to the patients large retrograde nail. Patient has been started on empiric antibiotics with IV vancomycin and ID on consultation. Nephrology on consultation and patient is scheduled for usual hemodialysis session tomorrow. 02/04/2024 the patient denies any fever or any chills, patient is breathing comfortably on room air, the patient denies chest pain shortness of breath and no significant cough, patient denies abdominal pain, no nausea vomiting or diarrhea. Feeling better no new symptoms. Patient white count is 8.34, creatinine 6.0 patient with multiple wound to the left upper extremity admitted to the dog scratch or concerning for possible folliculitis likely from a skin mickie such as staph or strep and failing outpatient oral antibiotic therapy. patient also have right big toe diabetic foot ulcer and a possible component of cellulitis likely forming gram-positive skin mickie -culture currently growing MSSA, x-ray of the right foot did not mention any bony destruction to the right big toe patient left upper extremity wounds are healing and the patient is status post right big toe amputation, patient is currently covered with Unasyn with infected port removed 02/05/2024 Patient is seen and evaluated sitting up in bed; reports improved pain control; patient is status post right big toe ray amputation, POD 1 due to wet gangrene Vital signs are reviewed and remained stable Blood work completed reveals a WBC of 10.8, hemoglobin of 10.4 and platelet count of 155, sodium 135, potassium 5.5, BUNs/creatinine of 54.8/5.9 Objective - Vital Signs Vital signs: Vital Signs Temp 97.7 F 02/05/24 07:40 Pulse 61 02/05/24 07:40 Resp 18 02/05/24 08:28 BP 102/66 02/05/24 07:40 Pulse Ox 100 02/05/24 07:40 FiO2 Intake & Output 02/04/24 02/05/24 02/05/24 18:59 06:59 18:59 Intake Total 342 Output Total 0 Balance 342 0 Intake: Oral 342 Output: Urine 0 - Exam HEENT: Pupils are round and equally reacting to light. EOMI. No scleral icterus. No conjunctival pallor. Normocephalic, atraumatic. No pharyngeal erythema. No thyromegaly. CARDIOVASCULAR: S1 and S2 present. No murmurs, rubs, or gallops. PULMONARY: Chest is clear to auscultation, n Ramirez A1c has not beeno wheezing or crackles. ABDOMEN: Soft, nontender, nondistended, normoactive bowel sounds. No palpable organomegaly. MUSCULOSKELETAL: No joint swelling or deformity. EXTREMITIES: No cyanosis, clubbing, or pedal edema. Multiple finger amputations bilaterally NEUROLOGICAL: Gross neurological examination did not reveal any focal deficits. SKIN: No rashes. Multiple lesions open to the right and left upper extremity. Sanguineous drainage from the right great toe - Labs CBC & Chem 7: 02/05/24 06:07 02/05/24 06:07 Labs: Abnormal Lab Results - Last 24 Hours (Table) 02/04/24 02/04/24 02/05/24 Range/Units 17:55 20:50 06:07 WBC 10.82 H (4.50-10.00) X 10*3/uL RBC 3.32 L (4.40-5.60) X 10*6/uL Hgb 10.4 L (13.0-17.0) g/dL Hct 33.9 L (39.6-50.0) % MCV 102.1 H (80.0-97.0) FL MCHC 30.7 L (32.0-37.0) g/dL RDW 14.8 H (11.5-14.5) % Immature Gran # 0.05 H (0.00-0.04) X 10*3/uL NRBC/100 WBC Diff 0.02 H (0.00-0.01) X 10*3/uL Chloride (96-109) mmol/L Anion Gap (4.00-12.00) mmol/L BUN (9.0-27.0) mg/dL Creatinine (0.6-1.5) mg/dL Est GFR (CKD-EPI) (>=60) BUN/Creatinine Ratio (12.00-20.00) Ratio Glucose (70-110) mg/dL POC Glucose (mg/dL) 278 H 296 H (70-110) mg/dL 02/05/24 02/05/24 Range/Units 06:07 06:15 WBC (4.50-10.00) X 10*3/uL RBC (4.40-5.60) X 10*6/uL Hgb (13.0-17.0) g/dL Hct (39.6-50.0) % MCV (80.0-97.0) FL MCHC (32.0-37.0) g/dL RDW (11.5-14.5) % Immature Gran # (0.00-0.04) X 10*3/uL NRBC/100 WBC Diff (0.00-0.01) X 10*3/uL Chloride 93 L (96-109) mmol/L Anion Gap 18.70 H (4.00-12.00) mmol/L BUN 54.8 H (9.0-27.0) mg/dL Creatinine 5.9 H (0.6-1.5) mg/dL Est GFR (CKD-EPI) 10 L (>=60) BUN/Creatinine Ratio 9.29 L (12.00-20.00) Ratio Glucose 151 H (70-110) mg/dL POC Glucose (mg/dL) 147 H (70-110) mg/dL Assessment and Plan Assessment: Right foot cellulitis and right toe wound concern for diabetic foot infection. Cultures showing stapyhlococcus aureus. IV vancomycin and ID consulted. Wound ca re will be consulted Multiple wounds and right upper extremity cellulitis; open to bilateral upper a nd lower extremity Gangrenous right toe patient is being considered for surgical amputation. End stage renal disease maintained on hemodialysis MWF Coronary artery disease with prior PCI remains on plavix per patient no longer on aspirin per her special education teaching assistant and this has been discontinued. 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 Atrial fibrillation, paroxysmal anticoagulated with eliquis which has been resumed Diabetes Mellitus type 2 with diabetic neuropathy Hyperlipidemia continues on statin therapy History of TIA History of sleep apnea with cpap use Hypothyroidism Anxiety Hx of nicotine use GI prophylaxis DVT prophylaxis Full Code Local wound care recommended with absorptive silver moistened with gauze to lower extremity wounds and to the upper extremity wounds apply honey gel dry gauze. Vascular has been consulted for evaluation. ID following cultures remains on IV Vancomycin, hemodialysis MWF. Due to decreased blood pressures carvedilol has been adjusted to metoprolol. Discontinued torsemide and aspirin. Adjustments made to midodrine. Blood cultures taken. Orthopedics recommending no surgical intervention at his time due to the broken hardware in the right heel. Vascular recommending possible right great toe amputation. Repeat blood work. Cardiology consulted with no complete contraindications to surgery recommending to hold Eliquis if patient is going for surgical amputation.
[2024-02-05 17:33] LABS: Glucose,Whole Blood 237 mg/dL (70-110)
[2024-02-05 20:43] LABS: Glucose,Whole Blood 185 mg/dL (70-110)
[2024-02-06 06:10] LABS: Glucose,Whole Blood 156 mg/dL (70-110)
[2024-02-06 09:23] LABS: Basophils # (A) 0.08 X 10*3/uL (0.00-0.10); Basophils % (A) 0.7 %; Eosinophils # (A) 0.32 X 10*3/uL (0.04-0.35); Eosinophils % (A) 2.7 %; HCT 34.4 % (39.6-50.0); HGB 10.6 g/dL (13.0-17.0); Lymphocytes # (A) 2.04 X 10*3/uL (0.90-5.00); Lymphocytes % (A) 17.2 %; MCH 31.5 pg (27.0-32.0); MCHC 30.8 g/dL (32.0-37.0); MCV 102.1 FL (80.0-97.0); Mean Platelet Volume 10.5 FL (9.5-12.2); Monocytes # (A) 0.82 X 10*3/uL (0.20-1.00); Monocytes % (A) 6.9 %; NRBC Per 100 WBC 0.04 X 10*3/uL (0.00-0.01); Neutrophils % (A) 71.8 %; Platelet Count 165 X 10*3/uL (140-440); RBC 3.37 X 10*6/uL (4.40-5.60); RDW 14.8 % (11.5-14.5); WBC 11.84 X 10*3/uL (4.50-10.00)
[2024-02-06 10:06] LABS: BUN/Creat Ratio 10.87 Ratio (12.00-20.00); Blood Urea Nitrogen 72.8 mg/dL (9.0-27.0); Calcium 9.2 mg/dL (8.7-10.3); Carbon Dioxide 23.1 mmol/L (21.6-31.8); Chloride 92 mmol/L (96-109); Glucose 151 mg/dL (70-110); Potassium 6.6 mmol/L (3.5-5.5); Sodium 132 mmol/L (135-145)
--- NOTE | 2024-02-06 11:58 | P.PN ---
Subjective Patient is seen in follow-up for end-stage renal disease. He is maintained on hemodialysis on Tuesday schedule. No active complaints. Tolerating dialysis well. Potassium level 6.6 this morning. Vital signs are stable. General: No acute distress. HEENT: Head exam is unremarkable. On nasal cannula. LUNGS: No audible rhonchi or wheezes. HEART: Rate and Rhythm are regular. ABDOMEN: Nontender, obese. EXTREMITITES: Trace edema. Objective - Vital Signs Vital signs: Vital Signs Temp 97.6 F 02/06/24 07:40 Pulse 59 L 02/06/24 07:40 Resp 16 02/06/24 07:40 BP 128/79 02/06/24 07:40 Pulse Ox 100 02/06/24 07:40 FiO2 Intake & Output 02/05/24 02/06/24 02/06/24 18:59 06:59 18:59 Intake Total 118 Balance 118 Intake: Oral 118 Other: # Voids 1 0 - Labs CBC & Chem 7: 02/06/24 06:39 02/06/24 06:39 Labs: Abnormal Lab Results - Last 24 Hours (Table) 02/05/24 02/05/24 02/05/24 Range/Units 12:08 17:30 20:41 WBC (4.50-10.00) X 10*3/uL RBC (4.40-5.60) X 10*6/uL Hgb (13.0-17.0) g/dL Hct (39.6-50.0) % MCV (80.0-97.0) FL MCHC (32.0-37.0) g/dL RDW (11.5-14.5) % Immature Gran # (0.00-0.04) X 10*3/uL Neutrophils # (1.80-7.70) X 10*3/uL NRBC/100 WBC Diff (0.00-0.01) X 10*3/uL Sodium (135-145) mmol/L Potassium (3.5-5.5) mmol/L Chloride (96-109) mmol/L Anion Gap (4.00-12.00) mmol/L BUN (9.0-27.0) mg/dL Creatinine (0.6-1.5) mg/dL Est GFR (CKD-EPI) (>=60) BUN/Creatinine Ratio (12.00-20.00) Ratio Glucose (70-110) mg/dL POC Glucose (mg/dL) 211 H 237 H 185 H (70-110) mg/dL 02/06/24 02/06/24 02/06/24 Range/Units 06:09 06:39 06:39 WBC 11.84 H (4.50-10.00) X 10*3/uL RBC 3.37 L (4.40-5.60) X 10*6/uL Hgb 10.6 L (13.0-17.0) g/dL Hct 34.4 L (39.6-50.0) % MCV 102.1 H (80.0-97.0) FL MCHC 30.8 L (32.0-37.0) g/dL RDW 14.8 H (11.5-14.5) % Immature Gran # 0.08 H (0.00-0.04) X 10*3/uL Neutrophils # 8.50 H (1.80-7.70) X 10*3/uL NRBC/100 WBC Diff 0.04 H (0.00-0.01) X 10*3/uL Sodium 132 L (135-145) mmol/L Potassium 6.6 A* (3.5-5.5) mmol/L Chloride 92 L (96-109) mmol/L Anion Gap 16.90 H (4.00-12.00) mmol/L BUN 72.8 H (9.0-27.0) mg/dL Creatinine 6.7 H (0.6-1.5) mg/dL Est GFR (CKD-EPI) 9 L (>=60) BUN/Creatinine Ratio 10.87 L (12.00-20.00) Ratio Glucose 151 H (70-110) mg/dL POC Glucose (mg/dL) 156 H (70-110) mg/dL Assessment and Plan Plan: Assessment: 1. End-stage renal disease maintained on hemodialysis on Tuesday schedule. 2. Right lower extremity cellulitis maintained on antibiotics. ID and vascular surgery following. Status post toe amputation February 03, 2024. 3. Chronic kidney disease mineral bone disease. On PhosLo. 4. Diabetes mellitus. 5. Chronic hypotension maintained on midodrine as needed. 6. Hyperkalemia secondary to chronic kidney disease. Plan: Currently seen while undergoing hemodialysis. Renal diet. Add Lokelma once daily. Recheck potassium level this evening.
[2024-02-06 12:11] LABS: Glucose,Whole Blood 154 mg/dL (70-110)
--- NOTE | 2024-02-06 16:42 | P.PN ---
Subjective Progress Note Date: 02/05/24 Principal diagnosis: Reason for follow-up is left upper extremity and right big toe Patient is a 63-year-old male with a past medical history significant for coronary artery disease heart failure with CVA TIA diabetes mellitus hypertension [place] patient did have a multiple limitation to bilateral hand fingers because of infection patient now presenting to the hospital with multiple open wounds to the left upper extremity, failing outpatient antibiotic therapy.Patient is status post right big toe amputation completed by vascular surgery as of 02/03/2024. On today's evaluation that is 02/05/2024, the patient continues to be afebrile, the patient is on room air and breathing comfortably, the Pt denies having any chest pain or cough, the patient denies having any abdominal pain no vomiting or any diarrhea has been reported by the nursing staff, denies any pain to the right big toe amputation site Patient white count is 10.82, creatinine is 5.9 Objective - Vital Signs Vital signs: Vital Signs Temp 97.7 F 02/05/24 07:40 Pulse 61 02/05/24 07:40 Resp 18 02/05/24 07:40 BP 102/66 02/05/24 07:40 Pulse Ox 100 02/05/24 07:40 FiO2 Intake & Output 02/04/24 02/05/24 02/05/24 18:59 06:59 18:59 Intake Total 342 Output Total 0 Balance 342 0 Intake: Oral 342 Output: Urine 0 - Exam GENERAL DESCRIPTION: Middle-age male lying in bed in no distress RESPIRATORY SYSTEM: Unlabored breathing , decreased breath sounds at bases HEART: S1 S2 regular rate and rhythm , ABDOMEN: Soft , no tenderness EXTREMITIES: Left upper extremity wounds have dried out right foot wound is currently dressed - Labs CBC & Chem 7: 02/06/24 06:39 02/06/24 15:41 Labs: Abnormal Lab Results - Last 24 Hours (Table) 02/04/24 02/04/24 02/04/24 Range/Units 11:38 17:55 20:50 POC Glucose (mg/dL) 254 H 278 H 296 H (70-110) mg/dL 02/05/24 Range/Units 06:15 POC Glucose (mg/dL) 147 H (70-110) mg/dL Assessment and Plan (1) Left arm cellulitis Current Visit: Yes Status: Acute Code(s): L03.114 - CELLULITIS OF LEFT UPPER LIMB SNOMED Code(s): 62741942715606493 (2) Type 2 diabetes mellitus with foot ulcer Current Visit: Yes Status: Acute Code(s): E11.621 - TYPE 2 DIABETES MELLITUS WITH FOOT ULCER; L97.509 - NON-PRESSURE CHRONIC ULCER OTH PRT UNSP FOOT W UNSP SEVERITY SNOMED Code(s): 216764716 (3) Diabetic foot ulcer Current Visit: Yes Status: Acute Code(s): E11.621 - TYPE 2 DIABETES MELLITUS WITH FOOT ULCER; L97.509 - NON-PRESSURE CHRONIC ULCER OTH PRT UNSP FOOT W UNSP SEVERITY SNOMED Code(s): 724673283 Plan: 1patient with multiple wound to the left upper extremity admitted to the dog scratch or concerning for possible folliculitis likely from a skin mickie such as staph or strep and failing outpatient oral antibiotic therapy. 2patient also have right big toe diabetic foot ulcer and a possible component of cellulitis likely forming gram-positive skin mickie 3-culture currently growing MSSA, x-ray of the right foot did not mention any bony destruction to the right big toe, patient is status post right big toe amputation and left upper extremity wounds are healing well 4patient to continue with Unasyn and monitor clinical course closely Dictation was produced using [employer] dictation software. please excuse any grammatical, word or spelling errors. Time with Patient: Less than 30
--- NOTE | 2024-02-06 16:43 | P.PN ---
Subjective Progress Note Date: 02/06/24 Principal diagnosis: Reason for follow-up is left upper extremity and right big toe Patient is a 63-year-old male with a past medical history significant for coronary artery disease heart failure with CVA TIA diabetes mellitus hypertension [place] patient did have a multiple limitation to bilateral hand fingers because of infection patient now presenting to the hospital with multiple open wounds to the left upper extremity, failing outpatient antibiotic therapy.Patient is status post right big toe amputation completed by vascular surgery as of 02/03/2024. On today's evaluation that is 02/06/2024, Patient is afebrile patient is currently on room air and denies having any shortness of breath, the patient denies any chest pain or cough, the patient denies any nausea vomiting did not have any abdominal pain and no diarrhea, patient denies pain to the left upper extremity or right big toe wound and no further bleeding. Patient white count is 11.84 creatinine is 6.7 Objective - Vital Signs Vital signs: Vital Signs Temp 98.0 F 02/06/24 14:00 Pulse 67 02/06/24 14:00 Resp 16 02/06/24 14:00 BP 136/84 02/06/24 14:00 Pulse Ox 98 02/06/24 14:00 FiO2 Intake & Output 02/05/24 02/06/24 02/06/24 18:59 06:59 18:59 Intake Total 618 Output Total 3500 Balance -2882 Intake: Oral 118 Hemodialysis 500 Output: Hemodialysis 3500 Other: # Voids 1 0 - Exam GENERAL DESCRIPTION: Middle-age male lying in bed in no distress RESPIRATORY SYSTEM: Unlabored breathing , decreased breath sounds at bases HEART: S1 S2 regular rate and rhythm , ABDOMEN: Soft , no tenderness EXTREMITIES: right big toe amputation site wound with minimal maceration minimal bloodstained drainage on the dressing - Labs CBC & Chem 7: 02/06/24 06:39 02/06/24 15:41 Labs: Abnormal Lab Results - Last 24 Hours (Table) 02/05/24 02/05/24 02/06/24 Range/Units 17:30 20:41 06:09 WBC (4.50-10.00) X 10*3/uL RBC (4.40-5.60) X 10*6/uL Hgb (13.0-17.0) g/dL Hct (39.6-50.0) % MCV (80.0-97.0) FL MCHC (32.0-37.0) g/dL RDW (11.5-14.5) % Immature Gran # (0.00-0.04) X 10*3/uL Neutrophils # (1.80-7.70) X 10*3/uL NRBC/100 WBC Diff (0.00-0.01) X 10*3/uL Sodium (135-145) mmol/L Potassium (3.5-5.5) mmol/L Chloride (96-109) mmol/L Anion Gap (4.00-12.00) mmol/L BUN (9.0-27.0) mg/dL Creatinine (0.6-1.5) mg/dL Est GFR (CKD-EPI) (>=60) BUN/Creatinine Ratio (12.00-20.00) Ratio Glucose (70-110) mg/dL POC Glucose (mg/dL) 237 H 185 H 156 H (70-110) mg/dL 02/06/24 02/06/24 02/06/24 Range/Units 06:39 06:39 12:11 WBC 11.84 H (4.50-10.00) X 10*3/uL RBC 3.37 L (4.40-5.60) X 10*6/uL Hgb 10.6 L (13.0-17.0) g/dL Hct 34.4 L (39.6-50.0) % MCV 102.1 H (80.0-97.0) FL MCHC 30.8 L (32.0-37.0) g/dL RDW 14.8 H (11.5-14.5) % Immature Gran # 0.08 H (0.00-0.04) X 10*3/uL Neutrophils # 8.50 H (1.80-7.70) X 10*3/uL NRBC/100 WBC Diff 0.04 H (0.00-0.01) X 10*3/uL Sodium 132 L (135-145) mmol/L Potassium 6.6 A* (3.5-5.5) mmol/L Chloride 92 L (96-109) mmol/L Anion Gap 16.90 H (4.00-12.00) mmol/L BUN 72.8 H (9.0-27.0) mg/dL Creatinine 6.7 H (0.6-1.5) mg/dL Est GFR (CKD-EPI) 9 L (>=60) BUN/Creatinine Ratio 10.87 L (12.00-20.00) Ratio Glucose 151 H (70-110) mg/dL POC Glucose (mg/dL) 154 H (70-110) mg/dL Assessment and Plan (1) Left arm cellulitis Current Visit: Yes Status: Acute Code(s): L03.114 - CELLULITIS OF LEFT UPPER LIMB SNOMED Code(s): 14976331035984608 (2) Type 2 diabetes mellitus with foot ulcer Current Visit: Yes Status: Acute Code(s): E11.621 - TYPE 2 DIABETES MELLITUS WITH FOOT ULCER; L97.509 - NON-PRESSURE CHRONIC ULCER OTH PRT UNSP FOOT W UNSP SEVERITY SNOMED Code(s): 754758918 (3) Diabetic foot ulcer Current Visit: Yes Status: Acute Code(s): E11.621 - TYPE 2 DIABETES MELLITUS WITH FOOT ULCER; L97.509 - NON-PRESSURE CHRONIC ULCER OTH PRT UNSP FOOT W UNSP SEVERITY SNOMED Code(s): 307099549 Plan: 1patient with multiple wound to the left upper extremity admitted to the dog scratch or concerning for possible folliculitis likely from a skin mickie such as staph or strep and failing outpatient oral antibiotic therapy. 2patient also have right big toe diabetic foot ulcer and a possible component of cellulitis likely forming gram-positive skin mickie 3-culture currently growing MSSA, x-ray of the right foot did not mention any bony destruction to the right big toe, patient is status post right big toe amputation and left upper extremity wounds are healing well 4patient to continue with Unasyn we will consider short course of cefazolin through the dialysis for 2 weeks on discharge Dictation was produced using [employer] dictation software. please excuse any grammatical, word or spelling errors. Time with Patient: Less than 30
[2024-02-06 17:19] LABS: Glucose,Whole Blood 223 mg/dL (70-110)
--- NOTE | 2024-02-06 19:49 | P.PN ---
Subjective Progress Note Date: 02/06/24 This is a pleasant 63 year old male with medical history significant for CAD, severe cardiomyopathy, status post stenting by Dr. Jimenez most recently in April 2023 of the LAD, history of paroxysmal atrial fibrillation, end-stage renal disease maintained on hemodialysis MWF. Patient comes in to the ER with complaints of multiple wounds on his upper and lower extremities which patient started after he was scratched by his puppy. Patient also has noticed increased swelling to the right foot with bleeding from the great toe. Patient is unsure if he sustained any trauma to the foot. He has denied fever or chills at home. The wound was cultured in the ER. Foot xray reveals no obvious lytic destruction in either foot to suggest a contiguous osteomyelitis. There is significant periprosthetic lucency in the right hindfoot especially within the calcaneus related to the patients large retrograde nail. Patient has been started on empiric antibiotics with IV vancomycin and ID on consultation. Nephrology on consultation and patient is scheduled for usual hemodialysis session tomorrow. 01/27/2024 Patient is evaluated today on the medical floor. Scheduled to undergo hemodialysis today. Received 15 mg of midodrine was having low blood pressures. Received an extra 10 mg of midodrine. Now up to 120s systolic. Patient was evaluated by wound care. Dressings are intact. Foot xray of the right ulcer reveals no radiographic evidence for a contiguous osteomyelitis. The AP directed calcaneal screw is broken at the level of the stacey. Periprosthetic lucency here up to 5 mm is similar. Patient has concerns with low blood pressure and wants to make sure he doesn't have a pericardial effusion. 01/28/2024 Patient is evaluated today in follow-up. Patient underwent hemodialysis yesterday with 2 L of fluid off. Patient did not meet the ultrafiltration goal as he was hypotensive prior to the start of hemodialysis. Midodrine has been adjusted as per patient's home dosing of 10 mg 3 times a day which takes as needed and does takes 15 mg prior to dialysis on Tuesday. Patient continues to feel dizzy with marginal blood pressures and this should improve with the addition of scheduled midodrine. Metoprolol was changed to carvedilol secondary to the low blood pressures. Once his blood pressure improves patient can be adjusted to carvedilol. Patient also states that he has not taking aspirin 81 mg daily and this has been discontinued he does continue on Plavix and Eliquis. Orthopedics was consulted secondary to concern for the broken calcaneal screw of the right ankle and patient had a subsequent x-ray completed which reveals fixation changes with evidence of loosening and hardware failure as seen with prior. 01/29/2024 Patient is evaluated in follow-up today. He has been resumed on his midodrine 10 mg 3 times a day and reports improvement in his dizziness and blood pressure is maintaining in the 100s systolic. He does continue on metoprolol and carvedilol remains on hold at this time. Wound culture showing presumptive Staph aureus. Orthopedics has evaluated the patient and not recommending any surgical intervention at this time. Pending evaluation by vascular surgery. 01/30/2024 Patient evaluated today in follow up. continues on midodrine 10 mg TID with improvement in his blood pressure. Continues on metoprolol which will further be decreased to 12.5 mg BID. Wound culture of the left arm showing staphylococcus aureus. His blood culture is negative so far. Wound culture of the right great toe is final and negative. Vascular has evaluated the patient and no plans for surgical intervention at this time. Patient continues on IV vancomycin. SHANTA bains closely. 02/01/2024 Patient is evaluated in follow up. Requiring IV dilaudid for breakthrough pain which is helping with the lower extremities however, his right lower back has been bothering him. Patient scheduled to undergo his usual hemodialysis session today. Wound cultures showing staphylococcus aureus and patient is continued on IV unasyn. Vascular surgery is now recommending right great toe amputation. 02/02/2024 Is evaluated today in follow-up he does continue to report significant lower back pain which is chronic in nature as well as lower extremity pain. He is receiving IV Dilaudid 1 mg every 6 hours additionally he is on [place] 5 times a day. Patient is considered for a right great toe amputation with Dr. Levy. Cardiology was consulted for surgical clearance. They recommended to continue all other additional cardiac medications and to continue Plavix but would recommend to hold Eliquis if surgery is anticipated. An EKG will be obtained prior to surgery. Patient continues on IV antibiotics in the form of Unasyn for the Staphylococcus aureus. 02/04/2024 the patient denies any fever or any chills, patient is breathing comfortably on room air, the patient denies chest pain shortness of breath and no significant cough, patient denies abdominal pain, no nausea vomiting or diarrhea. Feeling better no new symptoms. Patient white count is 8.34, creatinine 6.0 patient with multiple wound to the left upper extremity admitted to the dog scratch or concerning for possible folliculitis likely from a skin mickie such as staph or strep and failing outpatient oral antibiotic therapy. patient also have right big toe diabetic foot ulcer and a possible component of cellulitis likely forming gram-positive skin mickie -culture currently growing MSSA, x-ray of the right foot did not mention any bony destruction to the right big toe patient left upper extremity wounds are healing and the patient is status post right big toe amputation, patient is currently covered with Unasyn with infected port removed 02/05/2024 Patient is seen and evaluated sitting up in bed; reports improved pain control; patient is status post right big toe ray amputation, POD 1 due to wet gangrene Vital signs are reviewed and remained stable Blood work completed reveals a WBC of 10.8, hemoglobin of 10.4 and platelet count of 155, sodium 135, potassium 5.5, BUNs/creatinine of 54.8/5.9 02/06/2024 Patient was seen in follow-up today status post right big toe amputation with vascular surgery following. Patient also being followed by infectious disease maintained on antibiotics and discussing possibly transitioning to cefazolin with dialysis in the outpatient setting for 2 weeks. Patient is afebrile with no reports of chest pain or shortness of breath. Patient continues with local wound care and dressing changes. Case management/social work following to arrange for discharge home care. Review of Systems Constitutional: Denied any fatigue denied any fever. Cardio vascular: denied any chest pain, palpitations Gastrointestinal: denied any nausea, vomiting, diarrhea Pulmonary: Denied any shortness of breath cough Neurologic denied any new focal deficits All inpatient medications were reviewed and appropriate changes in these medications as dictated in the interval history and assessment and plan. PHYSICAL EXAMINATION: GENERAL: The patient is alert and oriented x3, not in any acute distress. Well developed, well nourished. HEENT: Pupils are round and equally reacting to light. EOMI. No scleral icterus. No conjunctival pallor. Normocephalic, atraumatic. No pharyngeal erythema. No thyromegaly. CARDIOVASCULAR: S1 and S2 present. No murmurs, rubs, or gallops. PULMONARY: Chest is clear to auscultation, n Ramirez A1c has not beeno wheezing or crackles. ABDOMEN: Soft, nontender, nondistended, normoactive bowel sounds. No palpable organomegaly. MUSCULOSKELETAL: No joint swelling or deformity. EXTREMITIES: No cyanosis, clubbing, or pedal edema. Multiple finger amputations bilaterally NEUROLOGICAL: Gross neurological examination did not reveal any focal deficits. SKIN: No rashes. Multiple lesions open to the right and left upper extremity. Status post right great toe amputation Assessment: Right foot cellulitis and right toe wound concern for diabetic foot infection. Cultures showing stapyhlococcus aureus. Status post right great toe amputation Multiple wounds and right upper extremity cellulitis; open to bilateral upper and lower extremity Gangrenous right toe status post amputation with vascular surgery End stage renal disease maintained on hemodialysis MWF Coronary artery disease with prior PCI remains on plavix per patient no longer on aspirin per her bee rancher and this has been discontinued. 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 Atrial fibrillation, paroxysmal anticoagulated with eliquis which has been resumed Diabetes Mellitus type 2 with diabetic neuropathy Hyperlipidemia continues on statin therapy History of TIA History of sleep apnea with cpap use Hypothyroidism Anxiety Hx of nicotine use GI prophylaxis DVT prophylaxis Full Code Plan: Patient is status post right great toe amputation with vascular surgery Patient continues on antibiotics with infectious disease following and considering transitioning to cefazolin with dialysis for 2 weeks course on discharge Continue local wound care and dressing changes Continue with hemodialysis Tuesday/Tuesday/Tuesday with nephrology following With an elevated potassium of 6.6 given a dose of Lokelma today. Repeat labs ordered for today as well as a.m. Encouraged to increase activity as tolerated Will have PT/the patient and discuss further with case management/social work regarding discharge planning. Patient reports would like to go home on discharge Possible discharge in the next 24 to 48 hours The impression and plan of care has been dictated by Sierra Henderson, Nurse Practitioner as directed. Dr. Juan Luis MD I have performed a history and physical examination and medical decision making of this patient, discussed the same with the dictator, and agree with the dictators assessment and plan as written, documented as a scribe. Based on total visit time, I have performed more than 50% of this visit. Objective - Vital Signs Vital signs: Vital Signs Temp 98.0 F 02/06/24 14:00 Pulse 67 02/06/24 14:00 Resp 16 02/06/24 14:00 BP 136/84 02/06/24 14:00 Pulse Ox 98 02/06/24 14:00 FiO2 Intake & Output 02/06/24 02/06/24 02/07/24 06:59 18:59 06:59 Intake Total 978 Output Total 3500 Balance -2522 Intake: Oral 478 Hemodialysis 500 Output: Hemodialysis 3500 Other: # Voids 0 1 # Bowel Movements 1 - Labs CBC & Chem 7: 02/06/24 06:39 02/06/24 15:41 Labs: Abnormal Lab Results - Last 24 Hours (Table) 02/05/24 02/06/24 02/06/24 Range/Units 20:41 06:09 06:39 WBC 11.84 H (4.50-10.00) X 10*3/uL RBC 3.37 L (4.40-5.60) X 10*6/uL Hgb 10.6 L (13.0-17.0) g/dL Hct 34.4 L (39.6-50.0) % MCV 102.1 H (80.0-97.0) FL MCHC 30.8 L (32.0-37.0) g/dL RDW 14.8 H (11.5-14.5) % Immature Gran # 0.08 H (0.00-0.04) X 10*3/uL Neutrophils # 8.50 H (1.80-7.70) X 10*3/uL NRBC/100 WBC Diff 0.04 H (0.00-0.01) X 10*3/uL Sodium (135-145) mmol/L Potassium (3.5-5.5) mmol/L Chloride (96-109) mmol/L Anion Gap (4.00-12.00) mmol/L BUN (9.0-27.0) mg/dL Creatinine (0.6-1.5) mg/dL Est GFR (CKD-EPI) (>=60) BUN/Creatinine Ratio (12.00-20.00) Ratio Glucose (70-110) mg/dL POC Glucose (mg/dL) 185 H 156 H (70-110) mg/dL 02/06/24 02/06/24 02/06/24 Range/Units 06:39 12:11 17:18 WBC (4.50-10.00) X 10*3/uL RBC (4.40-5.60) X 10*6/uL Hgb (13.0-17.0) g/dL Hct (39.6-50.0) % MCV (80.0-97.0) FL MCHC (32.0-37.0) g/dL RDW (11.5-14.5) % Immature Gran # (0.00-0.04) X 10*3/uL Neutrophils # (1.80-7.70) X 10*3/uL NRBC/100 WBC Diff (0.00-0.01) X 10*3/uL Sodium 132 L (135-145) mmol/L Potassium 6.6 A* (3.5-5.5) mmol/L Chloride 92 L (96-109) mmol/L Anion Gap 16.90 H (4.00-12.00) mmol/L BUN 72.8 H (9.0-27.0) mg/dL Creatinine 6.7 H (0.6-1.5) mg/dL Est GFR (CKD-EPI) 9 L (>=60) BUN/Creatinine Ratio 10.87 L (12.00-20.00) Ratio Glucose 151 H (70-110) mg/dL POC Glucose (mg/dL) 154 H 223 H (70-110) mg/dL
[2024-02-06 21:01] LABS: Glucose,Whole Blood 203 mg/dL (70-110)
[2024-02-07 05:54] LABS: Glucose,Whole Blood 116 mg/dL (70-110)
[2024-02-07] MEDS: SODIUM ZIRCONIUM CYCLOSILICATE 10 GM PACKET PO SCH (08:07)
[2024-02-07 12:08] LABS: BUN/Creat Ratio 8.96 Ratio (12.00-20.00); Blood Urea Nitrogen 50.2 mg/dL (9.0-27.0); Calcium 9.2 mg/dL (8.7-10.3); Carbon Dioxide 24.2 mmol/L (21.6-31.8); Chloride 89 mmol/L (96-109); Glucose 129 mg/dL (70-110); Potassium 4.8 mmol/L (3.5-5.5); Sodium 131 mmol/L (135-145)
[2024-02-07 12:48] LABS: Glucose,Whole Blood 242 mg/dL (70-110)
[2024-02-07 16:51] LABS: Glucose,Whole Blood 228 mg/dL (70-110)
--- NOTE | 2024-02-07 16:52 | P.PN ---
Subjective Progress Note Date: 02/07/24 Principal diagnosis: Reason for follow-up is left upper extremity and right big toe Patient is a 63-year-old male with a past medical history significant for coronary artery disease heart failure with CVA TIA diabetes mellitus hypertension [place] patient did have a multiple limitation to bilateral hand fingers because of infection patient now presenting to the hospital with multiple open wounds to the left upper extremity, failing outpatient antibiotic therapy.Patient is status post right big toe amputation completed by vascular surgery as of 02/03/2024. On today's evaluation that is 02/07/2024, patient has been afebrile, patient is breathing comfortably and is currently on room air, patient denies having any significant cough no chest pain shortness of breath, patient denies nausea vomiting or diarrhea and no abdominal pain denies pain to the right big toe pot ation site. Patient did have a creatinine 5.6 Objective - Vital Signs Vital signs: Vital Signs Temp 97.7 F 02/07/24 08:00 Pulse 54 L 02/07/24 08:00 Resp 16 02/07/24 08:09 BP 114/68 02/07/24 08:00 Pulse Ox 96 02/07/24 09:02 FiO2 Intake & Output 02/06/24 02/07/24 02/07/24 18:59 06:59 18:59 Intake Total 978 237 Output Total 3500 0 Balance -2522 0 237 Intake: Oral 478 237 Hemodialysis 500 Output: Urine 0 Hemodialysis 3500 Other: # Voids 1 # Bowel Movements 1 1 - Exam GENERAL DESCRIPTION: Middle-age male lying in bed in no distress RESPIRATORY SYSTEM: Unlabored breathing , decreased breath sounds at bases HEART: S1 S2 regular rate and rhythm , ABDOMEN: Soft , no tenderness EXTREMITIES: right big toe amputation site wound with minimal maceration did have some bloodstained drainage - Labs CBC & Chem 7: 02/06/24 06:39 02/07/24 06:57 Labs: Abnormal Lab Results - Last 24 Hours (Table) 02/06/24 02/06/24 02/06/24 Range/Units 12:11 17:18 21:00 POC Glucose (mg/dL) 154 H 223 H 203 H (70-110) mg/dL 02/07/24 Range/Units 05:53 POC Glucose (mg/dL) 116 H (70-110) mg/dL Assessment and Plan (1) Left arm cellulitis Current Visit: Yes Status: Acute Code(s): L03.114 - CELLULITIS OF LEFT UPPER LIMB SNOMED Code(s): 11045707175574280 (2) Type 2 diabetes mellitus with foot ulcer Current Visit: Yes Status: Acute Code(s): E11.621 - TYPE 2 DIABETES MELLITUS WITH FOOT ULCER; L97.509 - NON-PRESSURE CHRONIC ULCER OTH PRT UNSP FOOT W UNSP SEVERITY SNOMED Code(s): 350013690 (3) Diabetic foot ulcer Current Visit: Yes Status: Acute Code(s): E11.621 - TYPE 2 DIABETES MELLITUS WITH FOOT ULCER; L97.509 - NON-PRESSURE CHRONIC ULCER OTH PRT UNSP FOOT W UNSP SEVERITY SNOMED Code(s): 006364098 Plan: 1patient with multiple wound to the left upper extremity admitted to the dog scratch or concerning for possible folliculitis likely from a skin mickie such as staph or strep and failing outpatient oral antibiotic therapy. 2patient also have right big toe diabetic foot ulcer and a possible component of cellulitis likely forming gram-positive skin mickie 3-culture currently growing MSSA, x-ray of the right foot did not mention any bony destruction to the right big toe, patient is status post right big toe amputation and left upper extremity wounds are healing well 4patient to continue with Unasyn plan is for a short course of IV cefazolin through the dialysis on discharge local care to continue with a dry Aquacel dressing discussed with the nursing staff Dictation was produced using [employer] dictation software. please excuse any grammatical, word or spelling errors. Time with Patient: Less than 30
--- NOTE | 2024-02-07 19:36 | P.PN ---
Subjective Progress Note Date: 02/07/24 This is a pleasant 63 year old male with medical history significant for CAD, severe cardiomyopathy, status post stenting by Dr. Jimenez most recently in April 2023 of the LAD, history of paroxysmal atrial fibrillation, end-stage renal disease maintained on hemodialysis MWF. Patient comes in to the ER with complaints of multiple wounds on his upper and lower extremities which patient started after he was scratched by his puppy. Patient also has noticed increased swelling to the right foot with bleeding from the great toe. Patient is unsure if he sustained any trauma to the foot. He has denied fever or chills at home. The wound was cultured in the ER. Foot xray reveals no obvious lytic destruction in either foot to suggest a contiguous osteomyelitis. There is significant periprosthetic lucency in the right hindfoot especially within the calcaneus related to the patients large retrograde nail. Patient has been started on empiric antibiotics with IV vancomycin and ID on consultation. Nephrology on consultation and patient is scheduled for usual hemodialysis session tomorrow. 01/27/2024 Patient is evaluated today on the medical floor. Scheduled to undergo hemodialysis today. Received 15 mg of midodrine was having low blood pressures. Received an extra 10 mg of midodrine. Now up to 120s systolic. Patient was evaluated by wound care. Dressings are intact. Foot xray of the right ulcer reveals no radiographic evidence for a contiguous osteomyelitis. The AP directed calcaneal screw is broken at the level of the stacey. Periprosthetic lucency here up to 5 mm is similar. Patient has concerns with low blood pressure and wants to make sure he doesn't have a pericardial effusion. 01/28/2024 Patient is evaluated today in follow-up. Patient underwent hemodialysis yesterday with 2 L of fluid off. Patient did not meet the ultrafiltration goal as he was hypotensive prior to the start of hemodialysis. Midodrine has been adjusted as per patient's home dosing of 10 mg 3 times a day which takes as needed and does takes 15 mg prior to dialysis on Tuesday. Patient continues to feel dizzy with marginal blood pressures and this should improve with the addition of scheduled midodrine. Metoprolol was changed to carvedilol secondary to the low blood pressures. Once his blood pressure improves patient can be adjusted to carvedilol. Patient also states that he has not taking aspirin 81 mg daily and this has been discontinued he does continue on Plavix and Eliquis. Orthopedics was consulted secondary to concern for the broken calcaneal screw of the right ankle and patient had a subsequent x-ray completed which reveals fixation changes with evidence of loosening and hardware failure as seen with prior. 01/29/2024 Patient is evaluated in follow-up today. He has been resumed on his midodrine 10 mg 3 times a day and reports improvement in his dizziness and blood pressure is maintaining in the 100s systolic. He does continue on metoprolol and carvedilol remains on hold at this time. Wound culture showing presumptive Staph aureus. Orthopedics has evaluated the patient and not recommending any surgical intervention at this time. Pending evaluation by vascular surgery. 01/30/2024 Patient evaluated today in follow up. continues on midodrine 10 mg TID with improvement in his blood pressure. Continues on metoprolol which will further be decreased to 12.5 mg BID. Wound culture of the left arm showing staphylococcus aureus. His blood culture is negative so far. Wound culture of the right great toe is final and negative. Vascular has evaluated the patient and no plans for surgical intervention at this time. Patient continues on IV vancomycin. SHANTA bains closely. 02/01/2024 Patient is evaluated in follow up. Requiring IV dilaudid for breakthrough pain which is helping with the lower extremities however, his right lower back has been bothering him. Patient scheduled to undergo his usual hemodialysis session today. Wound cultures showing staphylococcus aureus and patient is continued on IV unasyn. Vascular surgery is now recommending right great toe amputation. 02/02/2024 Is evaluated today in follow-up he does continue to report significant lower back pain which is chronic in nature as well as lower extremity pain. He is receiving IV Dilaudid 1 mg every 6 hours additionally he is on [place] 5 times a day. Patient is considered for a right great toe amputation with Dr. Levy. Cardiology was consulted for surgical clearance. They recommended to continue all other additional cardiac medications and to continue Plavix but would recommend to hold Eliquis if surgery is anticipated. An EKG will be obtained prior to surgery. Patient continues on IV antibiotics in the form of Unasyn for the Staphylococcus aureus. 02/04/2024 the patient denies any fever or any chills, patient is breathing comfortably on room air, the patient denies chest pain shortness of breath and no significant cough, patient denies abdominal pain, no nausea vomiting or diarrhea. Feeling better no new symptoms. Patient white count is 8.34, creatinine 6.0 patient with multiple wound to the left upper extremity admitted to the dog scratch or concerning for possible folliculitis likely from a skin mickie such as staph or strep and failing outpatient oral antibiotic therapy. patient also have right big toe diabetic foot ulcer and a possible component of cellulitis likely forming gram-positive skin mickie -culture currently growing MSSA, x-ray of the right foot did not mention any bony destruction to the right big toe patient left upper extremity wounds are healing and the patient is status post right big toe amputation, patient is currently covered with Unasyn with infected port removed 02/05/2024 Patient is seen and evaluated sitting up in bed; reports improved pain control; patient is status post right big toe ray amputation, POD 1 due to wet gangrene Vital signs are reviewed and remained stable Blood work completed reveals a WBC of 10.8, hemoglobin of 10.4 and platelet count of 155, sodium 135, potassium 5.5, BUNs/creatinine of 54.8/5.9 02/06/2024 Patient was seen in follow-up today status post right big toe amputation with vascular surgery following. Patient also being followed by infectious disease maintained on antibiotics and discussing possibly transitioning to cefazolin with dialysis in the outpatient setting for 2 weeks. Patient is afebrile with no reports of chest pain or shortness of breath. Patient continues with local wound care and dressing changes. Case management/social work following to arrange for discharge home care. 02/07/2024 Patient is seen in follow-up today with nephrology and infectious disease following. Patient will continue on IV antibiotics and transition to cefazolin with dialysis on discharge per ID recommendations. Patient will follow-up with vascular surgery outpatient and continue with local wound care. Patient encouraged to elevate lower extremities while at rest and is arranging for home care on discharge. Nephrology following with plans on dialysis in the a.m. prior to discharge. Patient is afebrile with no reported chest pain or shortness of breath noted. Continue monitoring blood sugars closely and continue current regimen. Review of Systems Constitutional: Denied any fatigue denied any fever. Cardio vascular: denied any chest pain, palpitations Gastrointestinal: denied any nausea, vomiting, diarrhea Pulmonary: Denied any shortness of breath cough Neurologic denied any new focal deficits All inpatient medications were reviewed and appropriate changes in these medications as dictated in the interval history and assessment and plan. PHYSICAL EXAMINATION: GENERAL: The patient is alert and oriented x3, not in any acute distress. Well developed, well nourished. Obese HEENT: Pupils are round and equally reacting to light. EOMI. No scleral icterus. No conjunctival pallor. Normocephalic, atraumatic. No pharyngeal erythema. No thyromegaly. CARDIOVASCULAR: S1 and S2 present. No murmurs, rubs, or gallops. PULMONARY: Chest is clear to auscultation, no wheezing or crackles. ABDOMEN: Soft, nontender, nondistended, normoactive bowel sounds. No palpable organomegaly. MUSCULOSKELETAL: No joint swelling or deformity. EXTREMITIES: No cyanosis, clubbing, or pedal edema. Multiple finger amputations bilaterally NEUROLOGICAL: Gross neurological examination did not reveal any focal deficits. SKIN: No rashes. Multiple lesions open to the right and left upper extremity. Status post right great toe amputation Assessment: Right foot cellulitis and right toe wound concern for diabetic foot infection. Cultures showing stapyhlococcus aureus. 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 Atrial fibrillation, paroxysmal anticoagulated with eliquis which has been resumed Diabetes Mellitus type 2 with diabetic neuropathy Hyperlipidemia continues on statin therapy History of TIA History of sleep apnea with cpap use Hypothyroidism Anxiety Hx of nicotine use GI prophylaxis DVT prophylaxis Full Code Plan: Patient is status post right great toe amputation with vascular surgery Patient continues on antibiotics with infectious disease following and considering transitioning to cefazolin with dialysis for 2 weeks course on discharge Continue local wound care and dressing changes Continue with hemodialysis Tuesday/Tuesday/Tuesday with nephrology following Patient had an elevated potassium of 6.6 prescribed a dose of Lokelma although patient. Repeat labs potassium within normal limits Continue renal, diabetic diet and continue current insulin regimen. Discussed glycemic control. Encouraged to increase activity as tolerated Possible discharge in the next 24 hours after hemodialysis Due to multiple complex medical issues, prognosis is guarded The impression and plan of care has been dictated by Sierra Henderson, Nurse Practitioner as directed. Dr. Juan Luis MD I have performed a history and physical examination and medical decision making of this patient, discussed the same with the dictator, and agree with the dictators assessment and plan as written, documented as a scribe. Based on total visit time, I have performed more than 50% of this visit. Objective - Vital Signs Vital signs: Vital Signs Temp 97.7 F 02/07/24 08:00 Pulse 54 L 02/07/24 08:00 Resp 16 02/07/24 08:09 BP 114/68 02/07/24 08:00 Pulse Ox 96 02/07/24 09:02 FiO2 Intake & Output 02/06/24 02/07/24 02/07/24 18:59 06:59 18:59 Intake Total 978 237 Output Total 3500 0 Balance -2522 0 237 Intake: Oral 478 237 Hemodialysis 500 Output: Urine 0 Hemodialysis 3500 Other: # Voids 1 # Bowel Movements 1 1 - Labs CBC & Chem 7: 02/06/24 06:39 02/07/24 06:57 Labs: Abnormal Lab Results - Last 24 Hours (Table) 02/06/24 02/06/24 02/07/24 Range/Units 17:18 21:00 05:53 Sodium (135-145) mmol/L Chloride (96-109) mmol/L Anion Gap (4.00-12.00) mmol/L BUN (9.0-27.0) mg/dL Creatinine (0.6-1.5) mg/dL Est GFR (CKD-EPI) (>=60) BUN/Creatinine Ratio (12.00-20.00) Ratio Glucose (70-110) mg/dL POC Glucose (mg/dL) 223 H 203 H 116 H (70-110) mg/dL 02/07/24 02/07/24 Range/Units 06:57 12:46 Sodium 131 L (135-145) mmol/L Chloride 89 L (96-109) mmol/L Anion Gap 17.80 H (4.00-12.00) mmol/L BUN 50.2 H (9.0-27.0) mg/dL Creatinine 5.6 H (0.6-1.5) mg/dL Est GFR (CKD-EPI) 11 L (>=60) BUN/Creatinine Ratio 8.96 L (12.00-20.00) Ratio Glucose 129 H (70-110) mg/dL POC Glucose (mg/dL) 242 H (70-110) mg/dL
[2024-02-07 20:21] LABS: Glucose,Whole Blood 263 mg/dL (70-110)
[2024-02-08 06:04] LABS: Glucose,Whole Blood 143 mg/dL (70-110)
[2024-02-08 12:36] LABS: Glucose,Whole Blood 163 mg/dL (70-110)
[2024-02-08 16:13] VITALS: TEMP 97.4
--- NOTE | 2024-02-08 22:51 | P.PN ---
Subjective patient is seen for follow-up for end-stage renal disease. Patient is seen on hemodialysis. Tolerating treatment well. Volume status has improved. Objective - Vital Signs Vital signs: Vital Signs Temp 97.4 F L 02/08/24 14:00 Pulse 54 L 02/08/24 14:00 Resp 16 02/08/24 14:00 BP 118/78 02/08/24 14:00 Pulse Ox 98 02/08/24 14:00 FiO2 Intake & Output 02/08/24 02/08/24 02/09/24 06:59 18:59 06:59 Intake Total 236 Balance 236 Intake: Oral 236 Other: # Voids 0 - Exam patient is awake, comfortable, in no acute distress Alert oriented 3 Abdomen is soft obese Examination lower extremity shows edema of both feet worse on the right foot with bleeding noted from the right first toe. both legs are wrapped. Multiple amputations of fingers on both hands. - Labs CBC & Chem 7: 02/06/24 06:39 02/07/24 06:57 Labs: Abnormal Lab Results - Last 24 Hours (Table) 02/08/24 02/08/24 Range/Units 06:02 12:34 POC Glucose (mg/dL) 143 H 163 H (70-110) mg/dL Assessment and Plan Assessment: 1. End-stage renal disease on hemodialysis on a Tuesday amparo martell 2. Right foot cellulitis maintained on antibiotics 3. Hypertension with CKD stage V 4. CK D mineral bone disorder Plan: hemodialysis on Tuesday schedule Continue with antibiotics postdischarge. Continue with phosphate binders.
[2024-02-09 15:42] VITALS: BP 138/73; PULSE 84; RESP 21
--- NOTE | 2024-02-09 16:50 | P.PN ---
Subjective Progress Note Date: 02/08/24 Principal diagnosis: Reason for follow-up is left upper extremity and right big toe Patient is a 63-year-old male with a past medical history significant for coronary artery disease heart failure with CVA TIA diabetes mellitus hypertension [place] patient did have a multiple limitation to bilateral hand fingers because of infection patient now presenting to the hospital with multiple open wounds to the left upper extremity, failing outpatient antibiotic therapy.Patient is status post right big toe amputation completed by vascular surgery as of 02/03/2024. On today's evaluation that is 02/08/2024,the patient denies any fever or any chills, patient is breathing comfortably on room air, the patient denies chest pain shortness of breath and no significant cough, patient denies abdominal pain, no nausea vomiting or diarrhea. Patient denies pain to the right big toe potation site and no further drainage no new data has been obtained today anaerobe culture has been negative blood culture negative Objective - Vital Signs Vital signs: Vital Signs Temp 97.6 F 02/08/24 07:49 Pulse 63 02/08/24 07:49 Resp 16 02/08/24 07:49 BP 122/78 02/08/24 07:49 Pulse Ox 99 02/08/24 07:49 FiO2 Intake & Output 02/07/24 02/08/24 02/08/24 18:59 06:59 18:59 Intake Total 692 118 Balance 692 118 Intake: Oral 692 118 Other: # Voids 0 - Exam GENERAL DESCRIPTION: Middle-age male lying in bed in no distress RESPIRATORY SYSTEM: Unlabored breathing , decreased breath sounds at bases HEART: S1 S2 regular rate and rhythm , ABDOMEN: Soft , no tenderness EXTREMITIES: right big toe amputation site wound currently dressed - Labs CBC & Chem 7: 02/06/24 06:39 02/07/24 06:57 Labs: Abnormal Lab Results - Last 24 Hours (Table) 02/07/24 02/07/24 02/08/24 Range/Units 16:49 20:20 06:02 POC Glucose (mg/dL) 228 H 263 H 143 H (70-110) mg/dL 02/08/24 Range/Units 12:34 POC Glucose (mg/dL) 163 H (70-110) mg/dL Assessment and Plan (1) Left arm cellulitis Status: Acute Code(s): L03.114 - CELLULITIS OF LEFT UPPER LIMB SNOMED C ode(s): 76740556423565660 (2) Type 2 diabetes mellitus with foot ulcer Status: Acute Code(s): E11.621 - TYPE 2 DIABETES MELLITUS WITH FOOT ULCER; L97.509 - NON-PRESSURE CHRONIC ULCER OTH PRT UNSP FOOT W UNSP SEVERITY SNOMED Code(s): 902314925 (3) Diabetic foot ulcer Status: Acute Code(s): E11.621 - TYPE 2 DIABETES MELLITUS WITH FOOT ULCER; L97.509 - NON-PRESSURE CHRONIC ULCER OTH PRT UNSP FOOT W UNSP SEVERITY SNOMED Code(s): 980430414 Plan: 1patient with multiple wound to the left upper extremity admitted to the dog scratch or concerning for possible folliculitis likely from a skin mickie such as staph or strep and failing outpatient oral antibiotic therapy. 2patient also have right big toe diabetic foot ulcer and a possible component of cellulitis likely forming gram-positive skin mickie 3-culture currently growing MSSA, x-ray of the right foot did not mention any bony destruction to the right big toe, patient is status post right big toe amputation and left upper extremity wounds are healing well 4patient to continue with a dry Aquacel dressing change Q 48-hour along with cefazolin with dialysis x 2 weeks and close outpatient follow-up prescription were provided to the hospice case manager Dictation was produced using [employer] dictation software. please excuse any grammatical, word or spelling errors. Time with Patient: Less than 30
--- NOTE | 2024-02-11 07:26 | P.DS ---
Providers Date of admission: 01/27/24 09:33 Expected date of discharge: 02/08/24 Attending physician: Gwen Mcknight Consults: 01/25/24 17:31 Consult Physician Routine Consulting Provider: Shira Hess Consult Reason/Comments: CKD Do you want consulting provider notified?: Yes 01/25/24 20:41 Consult Physician Routine Consulting Provider: Diane Madera Consult Reason/Comments: mult. open wounds/sores Do you want consulting provider notified?: Yes, Notify in am 01/27/24 18:31 Consult Physician Routine Consulting Provider: Walter Levy Consult Reason/Comments: right great toe diabetic wound surgical evaluation Do you want consulting provider notified?: Yes Primary care physician: Hayes Oshea Hospital Course: Final diagnosis Right foot cellulitis and right toe wound concern for diabetic foot infection. Cultures showing stapyhlococcus aureus. Status post right great toe amputation Multiple wounds and right upper extremity cellulitis; open to bilateral upper and lower extremity Gangrenous right toe status post amputation with vascular surgery End stage renal disease maintained on hemodialysis MWF Coronary artery disease with prior PCI remains on plavix per patient no longer on aspirin per his aboriginal community council member and this has been discontinued. 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 Atrial fibrillation, paroxysmal anticoagulated with eliquis which has been resumed Diabetes Mellitus type 2 with diabetic neuropathy Hyperlipidemia continues on statin therapy History of TIA History of sleep apnea with cpap use Hypothyroidism Anxiety Hx of nicotine use GI prophylaxis DVT prophylaxis Full Code Discharge disposition Patient is being discharged in a stable condition with guarded prognosis to home. Patient will follow-up with Dr. Oshea in the outpatient setting upon discharge. Patient is to continue with hemodialysis as scheduled and will continue with cefazolin postdialysis for 2 weeks per ID recommendations. Patient to follow-up with the wound care center and vascular surgery outpatient. Total time taken is greater than 35 minutes. Hospital course This is a 63-year-old male who was recently admitted with right foot cellulitis and concerns for diabetic foot infections and evaluated by vascular surgery status post right great toe amputation. Patient's culture showing Staphylococcus aureus with infectious disease following showing clinical improvement and will continue on cefazolin with dialysis. Nephrology also following and maintained on hemodialysis with adjustments to medications being made. Patient's blood pressure is on the lower side and will continue with midodrine and close outpatient follow-up. All medications have been resumed including Eliquis and patient has been cleared for discharge by consultations. Please refer to other consultation notes for further HPI. Patient reports to feeling well and would like to go home. Continue with local wound care to the right lower extremity. Currently no reports of chest pain, shortness of breath, or palpitations. Patient is afebrile. No reports of nausea or vomiting and patient is tolerating diet. Patient will be discharged home today. Guarded prognosis and high risk for readmissions given patient's significant comorbidities. Physical exam: Gen: This is a 63-year-old male who is awake, alert and oriented x 3, well- developed, well-nourished, obese HEENT: Head is atraumatic, normocephalic. Pupils equal, round. Sclerae is anicteric. NECK: Supple. No JVD. No lymphadenopathy. No thyromegaly. LUNGS: Diminished breath sounds bilaterally otherwise clear to auscultation. No wheezes or rhonchi. No intercostal retractions. HEART: S1, S2 are muffled ABDOMEN: Soft. Obese bowel sounds are present. No masses. No tenderness. EXTREMITIES: No pedal edema. No calf tenderness. Multiple amputations noted on bilateral upper and lower extremities. Surgical dressing on the right lower extremity is dry and intact NEUROLOGICAL: Patient is awake, alert and oriented x3. Cranial nerves 2 through 12 are grossly intact. Please refer to medication reconciliation sheet for a list of medications. The impression and plan of care has been dictated by Sierra Henderson, Nurse Practitioner as directed. Dr. Juan Luis MD I have performed a history and examination and MDM of this patient, discussed the same with the dictator, and agree with the dictator's assessment and plan as written ,documented as a scribe. Based on total visit time, I have performed more than 50% of the visit. Patient Condition at Discharge: Fair Plan - Discharge Summary New Discharge Prescriptions: New Lidocaine 4% Patch 1 patch TOPICAL DAILY #30 patch Metoprolol Tartrate [Lopressor] 12.5 mg PO BID #60 tab Calcium Carbonate [Tums] 500 mg PO QID PRN tab PRN Reason: Heartburn Continue Levothyroxine Sodium 100 mcg PO DAILY Insulin Regular, Human [NovoLIN R Flexpen] 8 - 20 unit SQ ACHS PRN PRN Reason: high blood sugar HYDROcodone/APAP 10-325MG [[place] 10-325] 1 tab PO 5XD PRN PRN Reason: Pain FLUoxetine HCL [PROzac] 40 mg PO DAILY 30 Days #30 cap Calcium Acetate [PhosLo] 667 mg PO DAILY PRN PRN Reason: SNACKS Amitriptyline HCl [Elavil] 25 mg PO HS PRN PRN Reason: nerve pain/sleep LORazepam 1 mg PO BID PRN PRN Reason: Anxiety Midodrine HCl [ProAmatine] 15 mg PO MOWEFR@0530 Apixaban [Eliquis] 2.5 mg PO BID Insulin Regular, Human [NovoLIN R Flexpen] See Protocol SQ ACHS PRN PRN Reason: high blood sugar Atorvastatin [Lipitor] 40 mg PO HS Calcium Acetate [PhosLo] 667 mg PO AC-TID Folic Acid/Vit B Complex and C [Bryanna-Olimpia Tablet] 0.8 mg PO DAILY Clopidogrel [Plavix] 75 mg PO DAILY 90 Days #90 tab Changed Insulin Detemir [Levemir Flexpen] 10 units SQ HS #0 Midodrine HCl [ProAmatine] 10 mg PO AC-TID #0 Discontinued Torsemide [Demadex] 40 mg PO DAILY carvediloL [Coreg] 6.25 mg PO TID #60 tab Aspirin 81 mg PO DAILY 30 Days #30 tab Discharge Medication List Levothyroxine Sodium 100 mcg PO DAILY 07/06/17 [History] HYDROcodone/APAP 10-325MG [[place] 10-325] 1 tab PO 5XD PRN 11/24/20 [History] Insulin Regular, Human [NovoLIN R Flexpen] 8 - 20 unit SQ ACHS PRN 11/24/20 [History] FLUoxetine HCL [PROzac] 40 mg PO DAILY 30 Days #30 cap 10/16/22 [Rx] Apixaban [Eliquis] 2.5 mg PO BID 02/16/23 [History] Atorvastatin [Lipitor] 40 mg PO HS 07/16/23 [History] Calcium Acetate [PhosLo] 667 mg PO AC-TID 07/16/23 [History] Calcium Acetate [PhosLo] 667 mg PO DAILY PRN 07/16/23 [History] Insulin Regular, Human [NovoLIN R Flexpen] See Protocol SQ ACHS PRN 07/16/23 [History] Amitriptyline HCl [Elavil] 25 mg PO HS PRN 11/23/23 [History] Folic Acid/Vit B Complex and C [Bryanna-Olimpia Tablet] 0.8 mg PO DAILY 11/23/23 [History] LORazepam 1 mg PO BID PRN 11/23/23 [History] Clopidogrel [Plavix] 75 mg PO DAILY 90 Days #90 tab 11/26/23 [Rx] Midodrine HCl [ProAmatine] 15 mg PO MOWEFR@0530 01/25/24 [History] Calcium Carbonate [Tums] 500 mg PO QID PRN tab 02/08/24 [Rx] Insulin Detemir [Levemir Flexpen] 10 units SQ HS #0 02/08/24 [Rx] Lidocaine 4% Patch 1 patch TOPICAL DAILY #30 patch 02/08/24 [Rx] Metoprolol Tartrate [Lopressor] 12.5 mg PO BID #60 tab 02/08/24 [Rx] Midodrine HCl [ProAmatine] 10 mg PO AC-TID #0 02/08/24 [Rx] Follow up Appointment(s)/Referral(s): [facility] Damian BRAVO [NON-STAFF] - As Needed (M-W-F AT 635 AM IV ABX DURING DIALYSIS) Hayes Oshea [Primary Care Provider] - 1-2 days Chacho Dove DO [STAFF PHYSICIAN] - 1 Week Walter Levy MD [STAFF PHYSICIAN] - 02/13/24 2:45 pm ([facility]) [facility] Visiting Nurse, [NON-STAFF] - As Needed Patient Instructions/Handouts: Chronic Wounds (DC), Toe Amputation (DC) Activity/Diet/Wound Care/Special Instructions: Activity limited until follow-up Follow-up with nephrology outpatient Follow-up primary care provider on discharge Follow-up with the wound care center Follow-up with infectious disease outpatient Patient will continue on cefazolin with dialysis for the next 2 weeks Follow-up vascular surgery outpatient in 1 to 2 weeks Continue elevate lower extremity while at rest and continue with local wound care Discharge Disposition: HOME WITH HOME HEALTH SERVICES
== END 2024-02-08 16:02 | disposition home health service (06) | DRG 617 ==
LOC: EC 13:34 → 6NMEDSUR 17:31 → OBSVTOIN 01-27 09:33
PROVIDERS: ADMIT Hospitalist; ATTEND Hospitalist
PROC: 5A1D70Z Performance of Urinary Filtration, Intermittent, Less than 6 Hours Per Day (ICD-10-PCS; 2024-01-27)
PROC: 05HB33Z Insertion of Infusion Device into Right Basilic Vein, Percutaneous Approach (ICD-10-PCS; 2024-01-27 15:25)
PROC: 05HD33Z Insertion of Infusion Device into Right Cephalic Vein, Percutaneous Approach (ICD-10-PCS; 2024-02-02)
PROC: 0Y6M0Z9 Detachment at Right Foot, Partial 1st Ray, Open Approach (ICD-10-PCS; principal; 2024-02-03 07:30)
DX: E11.621 Type 2 diabetes mellitus with foot ulcer (principal); E11.52 Type 2 diabetes mellitus with diabetic peripheral angiopathy with gangrene; I96 Gangrene, not elsewhere classified; L03.114 Cellulitis of left upper limb; L03.115 Cellulitis of right lower limb; L03.113 Cellulitis of right upper limb; I13.2 Hypertensive heart and chronic kidney disease with heart failure and with stage 5 chronic kidney disease, or end stage renal disease; I42.9 Cardiomyopathy, unspecified; T84.293A Other mechanical complication of internal fixation device of bones of foot and toes, initial encounter; E11.41 Type 2 diabetes mellitus with diabetic mononeuropathy; N18.6 End stage renal disease; E83.9 Disorder of mineral metabolism, unspecified; I95.89 Other hypotension; L97.522 Non-pressure chronic ulcer of other part of left foot with fat layer exposed; E11.319 Type 2 diabetes mellitus with unspecified diabetic retinopathy without macular edema; L97.512 Non-pressure chronic ulcer of other part of right foot with fat layer exposed; E11.628 Type 2 diabetes mellitus with other skin complications; E11.622 Type 2 diabetes mellitus with other skin ulcer; L98.492 Non-pressure chronic ulcer of skin of other sites with fat layer exposed; E11.22 Type 2 diabetes mellitus with diabetic chronic kidney disease; I50.9 Heart failure, unspecified; I48.0 Paroxysmal atrial fibrillation; L03.031 Cellulitis of right toe; Z99.2 Dependence on renal dialysis; E03.9 Hypothyroidism, unspecified; Z79.4 Long term (current) use of insulin; G57.93 Unspecified mononeuropathy of bilateral lower limbs; G47.33 Obstructive sleep apnea (adult) (pediatric); F41.9 Anxiety disorder, unspecified; E78.5 Hyperlipidemia, unspecified; E87.5 Hyperkalemia; G89.29 Other chronic pain; M54.50 Low back pain, unspecified; H54.7 Unspecified visual loss; I25.10 Atherosclerotic heart disease of native coronary artery without angina pectoris; I25.84 Coronary atherosclerosis due to calcified coronary lesion; I25.2 Old myocardial infarction; Z79.01 Long term (current) use of anticoagulants; Z79.82 Long term (current) use of aspirin; Z79.02 Long term (current) use of antithrombotics/antiplatelets; Z79.890 Hormone replacement therapy; Z79.899 Other long term (current) drug therapy; Z89.022 Acquired absence of left finger(s); Z87.891 Personal history of nicotine dependence; Z95.5 Presence of coronary angioplasty implant and graft; Z85.46 Personal history of malignant neoplasm of prostate; Z92.3 Personal history of irradiation; Z86.14 Personal history of Methicillin resistant Staphylococcus aureus infection; Z86.73 Personal history of transient ischemic attack (TIA), and cerebral infarction without residual deficits; Z98.84 Bariatric surgery status; Z71.3 Dietary counseling and surveillance
CPT/HCPCS: 36410; 36415; 71046; 76937; 80048; 80053; 80202; 83036; 83605; 83735; 83880; 84100; 84132; 85025; 87040; 87070; 87075; 87077; 87186; 87205; 87340; 88305; 88311; 90935; 94760; 96365; 96375; 99285

== ENCOUNTER → 2024-02-16 | Outpatient (CLI) | payer MEDICARE, BC ==
--- NOTE | 2024-02-16 17:48 | XR ---
EXAMINATION TYPE: XR chest 2V DATE OF EXAM: 02/16/2024 COMPARISON: 01/27/2024 HISTORY: 62-year-old male R06.2, difficulty breathing, wheezing TECHNIQUE: Frontal and lateral views FINDINGS: Heart mildly enlarged. Interstitial density. Mild patchy density right midlung. No sizable pleural ef fusion on the frontal view. IMPRESSION: 1. Mild cardiomegaly and interstitial densities, possible mild CHF with pulmonary vascular congestion . 2. Some patchy opacity at the right midlung could represent developing patchy pulmonary edema versus pneumonia. Clinically correlate.
== END | disposition home or self-care (01) ==
LOC: RADXRMAIN 17:07
PROVIDERS: ATTEND Family Medicine
DX: J98.4 Other disorders of lung (principal); R91.8 Other nonspecific abnormal finding of lung field; R06.2 Wheezing; I51.7 Cardiomegaly
CPT/HCPCS: 71046

== ENCOUNTER → 2024-03-13 | Outpatient (CLI) | payer MEDICARE, BC ==
--- NOTE | 2024-03-13 13:46 | US ---
EXAMINATION TYPE: US venous doppler duplex LE RT DATE OF EXAM: 03/13/2024 1:10 PM COMPARISON: Bilateral lower extremity venous ultrasound 10/24/2018 CLINICAL INDICATION: Male, 63 years old with history of I82.401 ACUTE EMBOLISM AND THOMBOS UNSP DEEP VEINS; rt leg edema SIDE PERFORMED: Right TECHNIQUE: The lower extremity deep venous system is examined utilizing real time linear array sonog shweta with graded compression, doppler sonography and color-flow sonography. VESSELS IMAGED: Common Femoral Vein Deep Femoral Vein Greater Saphenous Vein * Femoral Vein Popliteal Vein Small Saphenous Vein * Proximal Calf Veins (* superficial vessels) Grayscale, color doppler, spectral doppler imaging performed of the deep veins of the right lower ext remity. There is normal flow, compressibility, vascular waveforms. Right Leg: Negative for DVT IMPRESSION: No deep venous thrombosis of the right lower extremity.
== END | disposition home or self-care (01) ==
LOC: RADUSWWP 13:08
PROVIDERS: ATTEND Internal Medicine Nephrology
DX: I82.401 Acute embolism and thrombosis of unspecified deep veins of right lower extremity (principal)

== ENCOUNTER 2024-04-12 06:25 | Inpatient (IN) | payer MEDICARE, BC ==
--- NOTE | 2024-04-12 06:46 | ED ---
Fall HPI - General Chief Complaint: Fall Stated Complaint: Fall Time Seen by Provider: 04/12/24 06:27 Source: patient, family, RN notes reviewed Mode of arrival: EMS Limitations: no limitations - History of Present Illness Initial Comments: This is a 63-year-old male who presents to the emergency department for a fall. Patient was getting up from a chair when he fell and hit the right side of his head on the TV table. He is on both Eliquis and Plavix. Denies any loss of consciousness. Currently denies any pain. Currently refusing c-collar. He is on hemodialysis Tuesday, , and Tuesday, and fell when he was getting ready to leave for dialysis today. Patient is noted to be fairly hypotensive on arrival. He did take midodrine before he came today. Additionally, over the last couple of days he has had increasing shortness of breath. Believes that this may be related to dialysis training too much fluid a couple of days ago, but is not really sure. Denies any associated chest pain. Additionally, for the last several months he has been dealing with a nonhealing wound on his right foot. He did have his right great toe amputated in January. He is following with wound care and home health care nurses are trying to get this to heal, but it is struggling to do so. He also follows with Dr. Levy, and was told that the next option would be amputation, which he is currently hesitant to proceed with. Patient does note feeling very fatigued and drowsy over the last couple of days, and he is concerned that he may be getting another infection. - Related Data Home Medications Medication Instructions Recorded Confirmed Levothyroxine Sodium 100 mcg PO HS 07/06/17 04/12/24 HYDROcodone/APAP 10-325MG [[place] 1 tab PO 5XD PRN 11/24/20 04/12/24 10-325] Insulin Regular, Human [NovoLIN R See Protocol SQ ACHS PRN 11/24/20 04/12/24 Flexpen] Apixaban [Eliquis] 2.5 mg PO BID 02/16/23 04/12/24 Atorvastatin [Lipitor] 40 mg PO HS 07/16/23 04/12/24 Calcium Acetate [PhosLo] 1,334 mg PO AC-TID 07/16/23 04/12/24 Calcium Acetate [PhosLo] 667 mg PO DAILY PRN 07/16/23 04/12/24 LORazepam 1 mg PO BID PRN 11/23/23 04/12/24 Midodrine HCl [ProAmatine] 10 mg PO TUTHSA 01/25/24 04/12/24 Collagenase [Santyl Ointment] 1 applic TOPICAL Q2D 04/12/24 04/12/24 FLUoxetine HCL [PROzac] 20 mg PO BID 04/12/24 04/12/24 Insulin Detemir [Levemir Flexpen] 5 units SQ HS 04/12/24 04/12/24 Metoprolol Tartrate [Lopressor] 12.5 mg PO BID 04/12/24 04/12/24 Midodrine HCl [ProAmatine] 10 mg PO DAILY PRN 04/12/24 04/12/24 Previous Rx's Medication Instructions Recorded Clopidogrel [Plavix] 75 mg PO DAILY 90 Days #90 tab 11/26/23 Calcium Carbonate [Tums] 500 mg PO QID PRN tab 02/08/24 Allergies Allergy/AdvReac Type Severity Reaction Status Date / Time No Known Allergies Allergy Verified 04/12/24 11:45 Review of Systems ROS Statement: Those systems with pertinent positive or pertinent negative responses have been documented in the HPI. ROS Other: All systems not noted in ROS Statement are negative. Past Medical History Past Medical History: Coronary Artery Disease (CAD), Cancer, Heart Failure, CVA/ TIA, Diabetes Mellitus, Eye Disorder, Hypertension, Myocardial Infarction (ND), Renal Disease, Respiratory Disorder, Sleep Apnea/CPAP/BIPAP, Thyroid Disorder Additional Past Medical History / Comment(s): unhealing sore left index finger, neuropathy bilateral lower extremity/feet, bilateral eye diabetic retinopathy/poor vision/multiple injections, ESRD with hemodialysis M/W/F from 6:15 to 11:00, anemia, "mini strokes" x2, AVANI with CPap use, occasional low back pain/disc disease, gout, hypothyroid Last Myocardial Infarction Date:: 04/19/23 History of Any Multi-Drug Resistant Organisms: MRSA Date of last positivie culture/infection: 12/10/21 MDRO Source:: Finger-Right 5th Past Surgical History: Adenoidectomy, Bariatric Surgery, Cholecystectomy, Heart Catheterization, Heart Catheterization With Stent, Orthopedic Surgery, Tonsillectomy Additional Past Surgical History / Comment(s): 10/22/20 PCI with stents x2, lap banding, FX of right ankle repair pins / plate, fistual lt arm jul 2018, lt shoulder sx (d/t separation), colonoscopies, bilateral cataract removals/lens implants. LIF surgery 08/11/21 R LEG stacey placed January 2023 04/19/23 3 stents Past Anesthesia/Blood Transfusion Reactions: Motion Sickness Additional Past Anesthesia/Blood Transfusion Reaction / Comment(s): CLAUSTERPHOBIA Date of Last Stent Placement:: 04/19/23 Past Psychological History: Anxiety Smoking Status: Former smoker Past Alcohol Use History: None Reported Past Drug Use History: None Reported - Past Family History Mother History Unknown: Yes Family Medical History: Coronary Artery Disease (CAD), Myocardial Infarction (ND) Additional Family Medical History / Comment(s): Mother at age 58 from multiple sclerosis Father Family Medical History: CVA/TIA, Myocardial Infarction (ND) Additional Family Medical History / Comment(s): Father had history of ND and CVA followed by a second ND and CVA and at age 65. Brother(s) Additional Family Medical History / Comment(s): . General Exam Limitations: no limitations General appearance: alert, in no apparent distress Head exam: Present: atraumatic, normocephalic, normal inspection Respiratory exam: Present: normal lung sounds bilaterally. Absent: respiratory distress, wheezes, rales, rhonchi, stridor Cardiovascular Exam: Present: regular rate, normal rhythm, normal heart sounds. Absent: systolic murmur, diastolic murmur, rubs, gallop, clicks Neurological exam: Present: alert, oriented X3, CN II-XII intact Psychiatric exam: Present: normal affect, normal mood Skin exam: Present: warm, dry, intact, normal color. Absent: rash Course Vital Signs 04/12/24 04/12/24 04/12/24 06:32 07:51 09:30 Temperature 98.4 F Pulse Rate 67 112 H Respiratory 20 20 Rate Blood Pressure 84/68 91/45 96/75 O2 Sat by Pulse 100 96 Oximetry 04/12/24 04/12/24 04/12/24 10:00 10:43 11:00 Temperature Pulse Rate 103 H 102 H Respiratory 20 20 Rate Blood Pressure 82/50 79/47 78/51 O2 Sat by Pulse 96 96 Oximetry Medical Decision Making - Medical Decision Making This is a 63 year old male who presents to the emergency department for a fall and shortness of breath. Was pt. sent in by a medical professional or institution? @ -No Did you speak to anyone other than the patient for history? @ -No Did you review nursing and triage notes? @ -Yes, and I agree, it is accurate with regards to the patient's symptoms. Were old charts reviewed? @ -No Differential Diagnosis? @ -Differential Diagnosis Head Injury: Contusion, hematoma, intracranial hemorrhage, skull fracture, whiplash, concussion, this is not meant to be an all-inclusive list. EKG interpreted by me (3pts min.)? @ -EKG interpreted by me demonstrating the following: Atrial fibrillation. Ventricular rate 96 bpm, MI interval 127 ms, QTc 435 ms. X-rays interpreted by me (1pt min.)? @ -Chest x-ray obtained, my interpretation identifies no localized consolidations or infiltrates. CT interpreted by me (1pt min.)? @ -Computed tomography scan of the brain and c-spine obtained. My int erpretation identifies no evidence of an acute intracranial hemorrhage, skull fracture, or cervical spine fracture. U/S interpreted by me (1pt. min.)? @ -Not obtained What testing was considered but not performed? (CT, X-rays, U/S, labs)? Why? @ -None What meds were considered but not given? Why? @ -None Did you discuss the management of the patient with other professionals? @ -No Did you reconcile home meds? @ -Yes Was smoking cessation discussed for >3mins.? @ -No Was critical care preformed (if so, how long)? @ -No Were there social determinants of health that impacted care today? How? (Homelessness, low income, unemployed, alcoholism, drug addiction, transportation, low edu. Level, literacy, decrease access to med. care, half-way, rehab)? @ -No Was there de-escalation of care discussed even if they declined? (Discuss DNR or withdrawal of care, Hospice)? @ -No What co-morbidities impacted this encounter? (DM, HTN, Smoking, COPD, CAD, Cancer, CVA, Hep., AIDS, mental health diagnosis, sleep apnea, morbid obesity)? @ -CAD, A-fib, CHF, ESRD on dialysis, DM, HTN Was patient admitted / discharged? @ -Admitted. Lab work demonstrates leukocytosis with a white blood cell count of 25.1. Lactic acid elevated at 3.8. Additionally, BNP is 192,000, likely due to the patient needing dialysis. Troponin only mildly elevated at 0.040 and likely related to patient being on dialysis and fluid overload state. COVID, influenza, and RSV testing negative. Chest x-ray reveals no acute process. CT scan of the brain and C-spine is revealed no acute findings. X-ray of the right foot and ankle obtained demonstrating no evidence of osteomyelitis or other acute process. The lucency about the calcaneal screw suggests loosening is noted on the x-ray of the right ankle, however this is a chronic finding as seen on prior imaging. Patient meets SIRS criteria based on leukocytosis, tachycardia, and hypotension. Source of infection potentially related to the gangrene of the right foot. No other obvious source of infection is identified. Patient is high risk due to immunocompromised state with end-stage renal disease on dialysis and being diabetic. Blood cultures were obtained as well as anaerobic and aerobic wound cultures. Because the patient is on dialysis with CHF and is already very fluid overloaded, he was only given a 500 mL bolus of IV fluids. Patient started on vancomycin and Zosyn. Consult placed for infectious disease and vascular surgery regarding the gangrene in the right foot and sepsis. Nephrology consulted due to the patient being fluid overloaded and needing dialysis. Additionally, patient has been experiencing increasing depression lately, especially related to his overall declining health and because he is most likely going to end up requiring an amputation of the right lower extremity. Will consult psychiatry for input regarding worsening depression. Patient admitted to medicine for gangrene of right foot, sepsis, fall, and and shortness of breath. Case discussed with ED attending Dr. Starkey. Undiagnosed new problem with uncertain prognosis? @ -None Drug Therapy requiring intensive monitoring for toxicity (Heparin, Nitro, Insulin, Cardizem)? @ -None Were any procedures done? @ -None Diagnosis/symptom? @ -Sepsis, fall, weakness, shortness of breath Acute, or Chronic, or Acute on Chronic? @ -Acute Uncomplicated (without systemic symptoms) or Complicated (systemic symptoms)? @ -Complicated Side effects of treatment? @ -None Exacerbation, Progression, or Severe Exacerbation] @ -Not applicable Poses a threat to life or bodily function? @ -Yes, can lead to septic shock, which can lead to . Diagnosis/symptom? @ -Gangrene of right foot Acute, or Chronic, or Acute on Chronic? @ -Chronic Uncomplicated (without systemic symptoms) or Complicated (systemic symptoms)? @ -Complicated Side effects of treatment? @ -None Exacerbation, Progression, or Severe Exacerbation] @ -Progression Poses a threat to life or bodily function? @ -Yes, potentially the cause of the patient becoming septic. - Lab Data Result diagrams: 04/12/24 06:52 04/12/24 06:52 Lab Results 04/12/24 04/12/24 04/12/24 Range/Units 06:52 06:52 06:52 WBC 25.1 H (3.8-10.6) k/uL RBC 3.18 L (4.30-5.90) m/uL Hgb 10.0 L (13.0-17.5) gm/dL Hct 31.8 L (39.0-53.0) % MCV 100.2 H (80.0-100.0) fL MCH 31.4 (25.0-35.0) pg MCHC 31.3 (31.0-37.0) g/dL RDW 15.2 (11.5-15.5) % Plt Count 226 (150-450) k/uL MPV 8.4 Neutrophils % 92 % Lymphocytes % 1 % Monocytes % 6 % Eosinophils % 0 % Basophils % 0 % Neutrophils # 23.2 H (1.3-7.7) k/uL Lymphocytes # 0.2 L (1.0-4.8) k/uL Monocytes # 1.5 H (0-1.0) k/uL Eosinophils # 0.0 (0-0.7) k/uL Basophils # 0.0 (0-0.2) k/uL Hypochromasia Moderate Macrocytosis Slight PT 15.3 H (10.0-12.5) sec INR 1.5 H (<1.2) APTT 33.7 H (22.0-30.0) sec Sodium 128 L (137-145) mmol/L Potassium 5.0 (3.5-5.1) mmol/L Chloride 87 L (98-107) mmol/L Carbon Dioxide 25 (22-30) mmol/L Anion Gap 16 mmol/L BUN 47 H (9-20) mg/dL Creatinine 4.89 H (0.66-1.25) mg/dL Est GFR (CKD-EPI)AfAm 14 (>60 ml/min/1.73 sqM) Est GFR (CKD-EPI)NonAf 12 (>60 ml/min/1.73 sqM) Glucose 229 H (74-99) mg/dL Lactic Ac Sepsis Rflx Plasma Lactic Acid Oscar (0.7-2.0) mmol/L Calcium 8.2 L (8.4-10.2) mg/dL Phosphorus 5.8 H (2.5-4.5) mg/dL Magnesium 1.4 L (1.6-2.3) mg/dL Total Bilirubin 1.7 H (0.2-1.3) mg/dL AST 148 H (17-59) U/L ALT 163 H (4-49) U/L Alkaline Phosphatase 183 H (38-126) U/L Troponin I (0.000-0.034) ng/mL NT-Pro-B Natriuret Pep 506188 pg/mL Total Protein 6.1 L (6.3-8.2) g/dL Albumin 3.1 L (3.5-5.0) g/dL Influenza Type A (PCR) (Not Detectd) Influenza Type B (PCR) (Not Detectd) RSV (PCR) (Not Detectd) SARS-CoV-2 (PCR) (Not Detectd) 04/12/24 04/12/24 04/12/24 Range/Units 06:54 06:54 07:24 WBC (3.8-10.6) k/uL RBC (4.30-5.90) m/uL Hgb (13.0-17.5) gm/dL Hct (39.0-53.0) % MCV (80.0-100.0) fL MCH (25.0-35.0) pg MCHC (31.0-37.0) g/dL RDW (11.5-15.5) % Plt Count (150-450) k/uL MPV Neutrophils % % Lymphocytes % % Monocytes % % Eosinophils % % Basophils % % Neutrophils # (1.3-7.7) k/uL Lymphocytes # (1.0-4.8) k/uL Monocytes # (0-1.0) k/uL Eosinophils # (0-0.7) k/uL Basophils # (0-0.2) k/uL Hypochromasia Macrocytosis PT (10.0-12.5) sec INR (<1.2) APTT (22.0-30.0) sec Sodium (137-145) mmol/L Potassium (3.5-5.1) mmol/L Chloride (98-107) mmol/L Carbon Dioxide (22-30) mmol/L Anion Gap mmol/L BUN (9-20) mg/dL Creatinine (0.66-1.25) mg/dL Est GFR (CKD-EPI)AfAm (>60 ml/min/1.73 sqM) Est GFR (CKD-EPI)NonAf (>60 ml/min/1.73 sqM) Glucose (74-99) mg/dL Lactic Ac Sepsis Rflx Y Plasma Lactic Acid Oscar 3.8 H* (0.7-2.0) mmol/L Calcium (8.4-10.2) mg/dL Phosphorus (2.5-4.5) mg/dL Magnesium (1.6-2.3) mg/dL Total Bilirubin (0.2-1.3) mg/dL AST (17-59) U/L ALT (4-49) U/L Alkaline Phosphatase (38-126) U/L Troponin I 0.040 H* (0.000-0.034) ng/mL NT-Pro-B Natriuret Pep pg/mL Total Protein (6.3-8.2) g/dL Albumin (3.5-5.0) g/dL Influenza Type A (PCR) (Not Detectd) Influenza Type B (PCR) (Not Detectd) RSV (PCR) (Not Detectd) SARS-CoV-2 (PCR) (Not Detectd) 04/12/24 Range/Units 07:50 WBC (3.8-10.6) k/uL RBC (4.30-5.90) m/uL Hgb (13.0-17.5) gm/dL Hct (39.0-53.0) % MCV (80.0-100.0) fL MCH (25.0-35.0) pg MCHC (31.0-37.0) g/dL RDW (11.5-15.5) % Plt Count (150-450) k/uL MPV Neutrophils % % Lymphocytes % % Monocytes % % Eosinophils % % Basophils % % Neutrophils # (1.3-7.7) k/uL Lymphocytes # (1.0-4.8) k/uL Monocytes # (0-1.0) k/uL Eosinophils # (0-0.7) k/uL Basophils # (0-0.2) k/uL Hypochromasia Macrocytosis PT (10.0-12.5) sec INR (<1.2) APTT (22.0-30.0) sec Sodium (137-145) mmol/L Potassium (3.5-5.1) mmol/L Chloride (98-107) mmol/L Carbon Dioxide (22-30) mmol/L Anion Gap mmol/L BUN (9-20) mg/dL Creatinine (0.66-1.25) mg/dL Est GFR (CKD-EPI)AfAm (>60 ml/min/1.73 sqM) Est GFR (CKD-EPI)NonAf (>60 ml/min/1.73 sqM) Glucose (74-99) mg/dL Lactic Ac Sepsis Rflx Plasma Lactic Acid Oscar (0.7-2.0) mmol/L Calcium (8.4-10.2) mg/dL Phosphorus (2.5-4.5) mg/dL Magnesium (1.6-2.3) mg/dL Total Bilirubin (0.2-1.3) mg/dL AST (17-59) U/L ALT (4-49) U/L Alkaline Phosphatase (38-126) U/L Troponin I (0.000-0.034) ng/mL NT-Pro-B Natriuret Pep pg/mL Total Protein (6.3-8.2) g/dL Albumin (3.5-5.0) g/dL Influenza Type A (PCR) Not Detected (Not Detectd) Influenza Type B (PCR) Not Detected (Not Detectd) RSV (PCR) Not Detected (Not Detectd) SARS-CoV-2 (PCR) Not Detected (Not Detectd) - Radiology Data Radiology results: report reviewed, image reviewed Disposition Clinical Impression: Fall, Gangrene of right foot, Sepsis, Shortness of breath Disposition: ADMITTED IP TO THIS HOSP
[2024-04-12 07:06] LABS: Basophils % (A) 0 %; Eosinophils % (A) 0 %; HCT 31.8 % (39.0-53.0); Hypochromasia Moderate; Lymphocytes # (A) 0.2 k/uL (1.0-4.8); Lymphocytes % (A) 1 %; MCH 31.4 pg (25.0-35.0); MCHC 31.3 g/dL (31.0-37.0); MCV 100.2 fL (80.0-100.0); Macrocytosis Slight; Mean Platelet Volume 8.4; Monocytes # (A) 1.5 k/uL (0-1.0); Monocytes % (A) 6 %; Neutrophils # (A) 23.2 k/uL (1.3-7.7); Neutrophils % (A) 92 %; Platelet Count 226 k/uL (150-450); RBC 3.18 m/uL (4.30-5.90); RDW 15.2 % (11.5-15.5); WBC 25.1 k/uL (3.8-10.6)
[2024-04-12 07:12] LABS: INR 1.5 (<1.2); Partial Thromboplastin Time 33.7 sec (22.0-30.0); Prothrombin Time 15.3 sec (10.0-12.5)
[2024-04-12 07:29] LABS: ALT 163 U/L (4-49); AST 148 U/L (17-59); African American GFR (CKD) 14 (>60 ml/min/1.73 sqM); Albumin 3.1 g/dL (3.5-5.0); Alkaline Phosphatase 183 U/L (38-126); Anion Gap 16 mmol/L; Blood Urea Nitrogen 47 mg/dL (9-20); Calcium 8.2 mg/dL (8.4-10.2); Carbon Dioxide 25 mmol/L (22-30); Chloride 87 mmol/L (98-107); Glucose 229 mg/dL (74-99); Magnesium 1.4 mg/dL (1.6-2.3); Non-African American GFR(CKD) 12 (>60 ml/min/1.73 sqM); Phosphorus 5.8 mg/dL (2.5-4.5); Sodium 128 mmol/L (137-145); Total Bilirubin 1.7 mg/dL (0.2-1.3); Total Protein 6.1 g/dL (6.3-8.2)
--- NOTE | 2024-04-12 07:46 | CT ---
EXAMINATION TYPE: CT brain dona otero DATE OF EXAM: 04/12/2024 COMPARISON: 06/01/2023 HISTORY: pt refused c-collar placement on arrival pst fall and hit his head on the tv table. pt denie s any new pain, loc, or injury. pt reported the fall was approx [id number]. pt stated he thinks his wi fe called EMS to assist the pt up from the floor CT DLP: 1962.[address] of the brain was performed. The ventricles, basal cisterns and sulci overlying the cerebral convexities demonstrate mild enlargem ent. There is no evidence for intracranial hemorrhage or sulcal effacement. There is decreased attenuatio n about the periventricular white matter and deep white matter of both cerebral hemispheres, compatib le with chronic small vessel ischemia. No mass effects are seen. If symptoms persist consider MRI. Osseous calvarium is intact. IMPRESSION: 1. Age related atrophic and chronic small vessel ischemic change without acute intracranial process seen at this time. CT Cervical Spine: Unenhanced CT of the cervical spine was performed with bone and soft tissue window settings submitted . Coronal and sagittal reconstruction is obtained. There is normal alignment and prevertebral soft tissues. No evidence for acute cervical fracture . Scattered degenerative disc disease and spondylosis. Biapical scarring. IMPRESSION: 1. No evidence for acute fracture or subluxation of the cervical spine.
--- NOTE | 2024-04-12 07:47 | XR ---
EXAMINATION TYPE: XR chest 2V DATE OF EXAM: 04/12/2024 COMPARISON: 02/16/2024 HISTORY: Shortness of breath TECHNIQUE: Frontal and lateral views of the chest are obtained. FINDINGS: Scattered senescent parenchymal changes noted. No evidence for infiltrate. No evidence for atelectasis. Heart size is stable. Mediastinal structures are stable and grossly unremarkable. No evidence for hilar prominence. Degenerative changes dorsal spine. IMPRESSION: 1. No evidence for acute pulmonary disease.
--- NOTE | 2024-04-12 07:50 | XR ---
EXAMINATION TYPE: XR ankle complete RT DATE OF EXAM: 04/12/2024 COMPARISON: 01/27/2024 HISTORY: Pain TECHNIQUE: Frontal, lateral and oblique images of the right ankle are obtained. COMPARISON: None. FINDINGS: Tibiocalcaneal fixation stacey remains unchanged in position. Fixation screw traverses the ricky caneus. Lucency about the calcaneal screw suggests loosening. Fixation plate and screws along the dis yareli right fibula. Nonunion medial malleolar fracture. Degenerative narrowing tibiotalar joint space. There is soft tissue swelling without evidence for definite acute fracture at this time. IMPRESSION: There is no acute fracture or dislocation seen.
--- NOTE | 2024-04-12 07:52 | XR ---
EXAMINATION TYPE: XR foot complete RT DATE OF EXAM: 04/12/2024 CLINICAL HISTORY: pain TECHNIQUE: Frontal, lateral and oblique images of the right foot are obtained. COMPARISON: 01/27/2024 FINDINGS: There has been interval amputation of the great toe to the level of the first metatarsal n jeremy. Stump appears well defined without evidence for irregularities to suggest underlying osteomyelit is at this time. Soft tissue swelling is noted. There is evidence of vascular calcifications. There i s no acute fracture/dislocation evident. The overlying soft tissue appears unremarkable. IMPRESSION: Postoperative changes about the great toe as noted. No radiographic evidence to suggest osteomyelitis at this time. No acute fracture seen.
[2024-04-12] MEDS ORDERED: VANCOMYCIN IV PER PHARMACY 1 EACH MISC MISCELLANE PRN (08:04)
[2024-04-12 08:05] LABS: NT-Pro-B-Type Natriuretic Pept 192000 pg/mL
[2024-04-12] MEDS ORDERED: ONDANSETRON 4 MG/2 ML VIAL IVP PRN (08:08)
[2024-04-12] MEDS ORDERED: NALOXONE 0.4 MG/ML 1 ML VIAL IV PRN (08:08)
[2024-04-12] MEDS: SODIUM CHLORIDE 0.9% 500 ML 500 ML IV STA (08:50)
[2024-04-12] MEDS: PIPERACILLIN-TAZOBACTAM 3.375 GM in SODIUM CHLORIDE 0.9% 100 ML IVPB SCH (08:59)
[2024-04-12] MEDS: HYDROcodone/APAP 5-325MG 1 EACH TAB PO PRN (10:52)
[2024-04-12] MEDS: VANCOMYCIN 2,000 MG in SODIUM CHLORIDE 0.9% 500 ML 500 ML IVPB STA (10:58)
[2024-04-12] MEDS ORDERED: SODIUM CHLORIDE 0.9% 500 ML 500 ML IV ONE (11:13)
[2024-04-12] MEDS: MIDODRINE 5 MG TAB PO SCH ×2 (11:48→13:02)
[2024-04-12] MEDS: SODIUM CHLORIDE 0.9% 500 ML 250 ML IV ONE (11:48)
[2024-04-12] MEDS ORDERED: CALCIUM CARBONATE 500 MG CHEWABLE PO PRN (11:52)
[2024-04-12] MEDS ORDERED: CALCIUM ACETATE 667 MG TAB PO PRN (11:52)
[2024-04-12] MEDS ORDERED: MIDODRINE 5 MG TAB PO PRN (11:52)
[2024-04-12] MEDS ORDERED: HYDROcodone/APAP 10-325MG 1 EACH TAB PO PRN (11:52)
--- NOTE | 2024-04-12 11:53 | P.NPCON ---
History of Present Illness - Reason for Consult end stage renal disease - History of Present Illness Patient is a 63-year-old male with end-stage renal disease on hemodialysis on a Tuesday schedule. Patient is admitted to the hospital with a history of fall. Patient states that he has been lightheaded recently. Patient has a chronic right foot wound with history of gangrene and status post recent right big toe amputation in January 2024. Patient has had a nonhealing wound since then and has been following with Dr. Bermudez at the wound clinic. He has not been on antibiotics recently. There is history of recent I&D. Patient has noticed increased drainage from his wound. Patient is also complaining of shortness of breath over the past week. No complaints of fever or cough. He has a history of fluid overload and has recently had about 4 L of UF with hemodialysis as outpatient. Blood pressure has been low in the ER. Status post 500 cc bolus this morning. Blood pressure currently in the 80s for systolic. Started on vancomycin and Zosyn. Review of Systems As per HPI Past Medical History Past Medical History: Coronary Artery Disease (CAD), Cancer, Heart Failure, CVA/TIA, Diabetes Mellitus, Eye Disorder, Hypertension, Myocardial Infarction (NH), Renal Disease, Respiratory Disorder, Sleep Apnea/CPAP/BIPAP, Thyroid Disorder Additional Past Medical History / Comment(s): unhealing sore left index finger, neuropathy bilateral lower extremity/feet, bilateral eye diabetic retinopat hy/poor vision/multiple injections, ESRD with hemodialysis M/W/F from 6:15 to 11:00, anemia, "mini strokes" x2, AVANI with CPap use, occasional low back pain/disc disease, gout, hypothyroid Last Myocardial Infarction Date:: 04/19/23 History of Any Multi-Drug Resistant Organisms: MRSA Date of last positivie culture/infection: 12/10/21 MDRO Source:: Finger-Right 5th Past Surgical History: Adenoidectomy, Bariatric Surgery, Cholecystectomy, Heart Catheterization, Heart Catheterization With Stent, Orthopedic Surgery, Tonsillectomy Additional Past Surgical History / Comment(s): 10/22/20 PCI with stents x2, lap banding, FX of right ankle repair pins / plate, fistual lt arm jul 2018, lt shoulder sx (d/t separation), colonoscopies, bilateral cataract removals/lens implants. LIF surgery 08/11/21 R LEG stacey placed January 2023 04/19/23 3 stents Past Anesthesia/Blood Transfusion Reactions: Motion Sickness Additional Past Anesthesia/Blood Transfusion Reaction / Comment(s): CLAUSTERPHOBIA Date of Last Stent Placement:: 04/19/23 Past Psychological History: Anxiety Smoking Status: Former smoker Past Alcohol Use History: None Reported Past Drug Use History: None Reported - Past Family History Mother History Unknown: Yes Family Medical History: Coronary Artery Disease (CAD), Myocardial Infarction (NH) Additional Family Medical History / Comment(s): Mother at age 58 from multiple sclerosis Father Family Medical History: CVA/TIA, Myocardial Infarction (NH) Additional Family Medical History / Comment(s): Father had history of NH and CVA followed by a second NH and CVA and at age 65. Brother(s) Additional Family Medical History / Comment(s): . Medications and Allergies Home Medications Medication Instructions Recorded Confirmed Type Levothyroxine Sodium 100 mcg PO DAILY 07/06/17 01/25/24 History HYDROcodone/APAP 10-325MG [[place] 1 tab PO 5XD PRN 11/24/20 01/25/24 History 10-325] Insulin Regular, Human [NovoLIN R 8 - 20 unit SQ ACHS PRN 11/24/20 01/25/24 History Flexpen] FLUoxetine HCL [PROzac] 40 mg PO DAILY 30 Days #30 cap 10/16/22 01/25/24 Rx Apixaban [Eliquis] 2.5 mg PO BID 02/16/23 01/25/24 History Atorvastatin [Lipitor] 40 mg PO HS 07/16/23 01/25/24 History Calcium Acetate [PhosLo] 667 mg PO AC-TID 07/16/23 01/25/24 History Calcium Acetate [PhosLo] 667 mg PO DAILY PRN 07/16/23 01/25/24 History Insulin Regular, Human [NovoLIN R See Protocol SQ ACHS PRN 07/16/23 01/25/24 History Flexpen] Amitriptyline HCl [Elavil] 25 mg PO HS PRN 11/23/23 01/25/24 History Folic Acid/Vit B Complex and C 0.8 mg PO DAILY 11/23/23 01/25/24 History [Bryanna-Olimpia Tablet] LORazepam 1 mg PO BID PRN 11/23/23 01/25/24 History Clopidogrel [Plavix] 75 mg PO DAILY 90 Days #90 tab 11/26/23 01/25/24 Rx Midodrine HCl [ProAmatine] 15 mg PO MOWEFR@0530 01/25/24 01/25/24 History Calcium Carbonate [Tums] 500 mg PO QID PRN tab 02/08/24 Rx Insulin Detemir [Levemir Flexpen] 10 units SQ HS #0 02/08/24 01/25/24 Rx Lidocaine 4% Patch 1 patch TOPICAL DAILY #30 patch 02/08/24 Rx Metoprolol Tartrate [Lopressor] 12.5 mg PO BID #60 tab 02/08/24 Rx Midodrine HCl [ProAmatine] 10 mg PO AC-TID #0 02/08/24 01/25/24 Rx Allergies Allergy/AdvReac Type Severity Reaction Status Date / Time No Known Allergies Allergy Verified 04/12/24 06:31 Physical Exam Vitals: Vital Signs Temp Pulse Resp BP Pulse Ox 04/12/24 11:00 102 H 20 78/51 96 04/12/24 10:43 103 H 20 79/47 96 04/12/24 10:00 82/50 04/12/24 09:30 96/75 04/12/24 07:51 112 H 20 91/45 96 04/12/24 06:32 98.4 F 67 20 84/68 100 Intake and Output 04/11/24 04/12/24 04/12/24 22:59 06:59 14:59 Other: Weight 123.831 kg Patient is awake, comfortable, no acute distress. Alert oriented x 3. Examination of the heart S1 and S2 Examination of the lungs bilateral breath sounds are heard Abdomen is soft obese Examination of lower extremities shows 1+ edema. Right foot is dressed. 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 DONATIONS ATTENDANT exam grossly intact Results - Lab Results Most recent lab results Calcium 8.2 mg/dL (8.4-10.2) L 04/12/24 06:52 Phosphorus 5.8 mg/dL (2.5-4.5) H 04/12/24 06:52 Magnesium 1.4 mg/dL (1.6-2.3) L 04/12/24 06:52 04/12/24 06:52 04/12/24 06:52 Assessment and Plan Assessment: 1. End-stage renal disease on hemodialysis on Tuesday schedule 2. Right foot wound status post right big toe amputation in January 2024 currently with chronic wound status post recent I&D and being followed at the wound clinic with Dr. Levy. Recently noticed to have increased drainage from the wound. Currently maintained on IV antibiotics and there is discussion of possible BKA versus AKA. 3. CKD mineral bone disorder 4. Coronary artery disease 5. Type 2 diabetes 6. Hypotension most likely related to underlying infection. Patient currently does not appear to be in significant volume overload. I will resume the midodrine and repeat another bolus. We may need to hold off on dialysis today if he remains hypotensive. Plan: Continue antibiotics. Repeat fluid bolus Add midodrine 10 mg 3 times daily. Check blood cultures Hemodialysis today if patient is hemodynamically stable otherwise we will plan for tomorrow. Thank you for the consultation. We will continue to follow the patient with you during his hospitalization.
--- NOTE | 2024-04-12 12:14 | P.HPIM ---
History of Present Illness Patient is 63-year-old male came to emergency department after a fall appears to be mechanical fall hit on the right side of the head CT of the head is negative denies any loss of consciousness patient is on Eliquis and Plavix. Patient does have history of atrial fibrillation. Patient had any syncopal episode but although his blood pressure is low he is receiving midodrine and IV fluids at this time. Patient is insisting to secure dialysis patient on hemodialysis Tuesday and Tuesday schedule supposed to get hemodialysis today. Patient is also complaining of some lightheadedness also any atrial fibrillation mildly increased heart rate at 100 usually takes low-dose of metoprolol 12.5. Patient does not have any fever chills does have leukocytosis patient had a recent toe amputation month of January, after which patient ended up having a nonhealing wound in the right foot great toe area, patient has increased disch arge which is most foul-smelling for last few days from the toe and does have leukocytosis of 25,000, vascular surgery wound care infectious disease were consulted and patient was started on Zosyn and vancomycin. Patient has mildly elevated troponins of 0.040 and 0.035 patient denies any chest pain. Patient is also hypomagnesemic. Patient has increased swelling in the right leg more than the left leg which has been there since his toe amputation. REVIEW OF SYSTEMS: All other systems are negative except those mentioned in the HPI PHYSICAL EXAMINATION: GENERAL: The patient is alert and oriented x3, not in any acute distress. Well developed, well nourished. HEENT: Pupils are round and equally reacting to light. EOMI. No scleral icterus. No conjunctival pallor. Normocephalic, atraumatic. No pharyngeal erythema. No thyromegaly. CARDIOVASCULAR: S1 and S2 present. No murmurs, rubs, or gallops. Tachycardic irregularly irregular rhythm PULMONARY: Chest is clear to auscultation, no wheezing or crackles. ABDOMEN: Soft, nontender, nondistended, normoactive bowel sounds. No palpable organomegaly. MUSCULOSKELETAL: No joint swelling or deformity. EXTREMITIES: No cyanosis, clubbing, NEUROLOGICAL: Gross neurological examination did not reveal any focal deficits. SKIN: Foul-smelling discharge from the right amputated toe stump area increased swelling in the right leg which has been chronic Assessment and plan -Right foot infection with foul smelling discharge will obtain wound cultures and deep cultures with debridement, patient will continue on Zosyn and vancomycin. -Leukocytosis due to assessment #1 -End-stage renal disease hemodialysis, nephrology is following the patient -Hypomagnesemia and hypophosphatasia patient is on phosphate binders and nephrology will manage hypomagnesemia -Hyponatremia secondary to end-stage renal disease -Peripheral vascular disease -Coronary artery disease -Atrial fibrillation chronic patient is mildly rapid ventricular rate may be c ontributing to his dizziness and shortness of breath will [place] give him his metoprolol which she is expected to improve his blood pressure continue with midodrine. - type 2 diabetes mellitus with diabetic neuropathy patient will be resumed on home regimen -Hyperlipidemia -Sleep apnea uses CPAP machine at home -Hypothyroidism -History of prostate cancer with radiation therapy in the past DVT prophylaxis: Patient is on Eliquis which will be resumed and continued Past Medical History Past Medical History: Coronary Artery Disease (CAD), Cancer, Heart Failure, CVA/TIA, Diabetes Mellitus, Eye Disorder, Hypertension, Myocardial Infarction (AL), Renal Disease, Respiratory Disorder, Sleep Apnea/CPAP/BIPAP, Thyroid Disorder Additional Past Medical History / Comment(s): unhealing sore left index finger, neuropathy bilateral lower extremity/feet, bilateral eye diabetic retinopathy/poor vision/multiple injections, ESRD with hemodialysis M/W/F from 6:15 to 11:00, anemia, "mini strokes" x2, AVANI with CPap use, occasional low back pain/disc disease, gout, hypothyroid Last Myocardial Infarction Date:: 04/19/23 History of Any Multi-Drug Resistant Organisms: MRSA Date of last positivie culture/infection: 12/10/21 MDRO Source:: Finger-Right 5th Past Surgical History: Adenoidectomy, Bariatric Surgery, Cholecystectomy, Heart Catheterization, Heart Catheterization With Stent, Orthopedic Surgery, Tonsillectomy Additional Past Surgical History / Comment(s): 10/22/20 PCI with stents x2, lap banding, FX of right ankle repair pins / plate, fistual lt arm jul 2018, lt shoulder sx (d/t separation), colonoscopies, bilateral cataract removals/lens implants. LIF surgery 08/11/21 R LEG stacey placed January 2023 04/19/23 3 stents Past Anesthesia/Blood Transfusion Reactions: Motion Sickness Additional Past Anesthesia/Blood Transfusion Reaction / Comment(s): CLAUSTERPHOBIA Date of Last Stent Placement:: 04/19/23 Past Psychological History: Anxiety Smoking Status: Former smoker Past Alcohol Use History: None Reported Past Drug Use History: None Reported - Past Family History Mother History Unknown: Yes Family Medical History: Coronary Artery Disease (CAD), Myocardial Infarction (AL) Additional Family Medical History / Comment(s): Mother at age 58 from multiple sclerosis Father Family Medical History: CVA/TIA, Myocardial Infarction (AL) Additional Family Medical History / Comment(s): Father had history of AL and CVA followed by a second AL and CVA and at age 65. Brother(s) Additional Family Medical History / Comment(s): . Medications and Allergies Home Medications Medication Instructions Recorded Confirmed Type Levothyroxine Sodium 100 mcg PO HS 07/06/17 04/12/24 History HYDROcodone/APAP 10-325MG [[place] 1 tab PO 5XD PRN 11/24/20 04/12/24 History 10-325] Insulin Regular, Human [NovoLIN R See Protocol SQ ACHS PRN 11/24/20 04/12/24 History Flexpen] Apixaban [Eliquis] 2.5 mg PO BID 02/16/23 04/12/24 History Atorvastatin [Lipitor] 40 mg PO HS 07/16/23 04/12/24 History Calcium Acetate [PhosLo] 1,334 mg PO AC-TID 07/16/23 04/12/24 History Calcium Acetate [PhosLo] 667 mg PO DAILY PRN 07/16/23 04/12/24 History LORazepam 1 mg PO BID PRN 11/23/23 04/12/24 History Clopidogrel [Plavix] 75 mg PO DAILY 90 Days #90 tab 11/26/23 04/12/24 Rx Midodrine HCl [ProAmatine] 10 mg PO TUTHSA 01/25/24 04/12/24 History Calcium Carbonate [Tums] 500 mg PO QID PRN tab 02/08/24 04/12/24 Rx Collagenase [Santyl Ointment] 1 applic TOPICAL Q2D 04/12/24 04/12/24 History FLUoxetine HCL [PROzac] 20 mg PO BID 04/12/24 04/12/24 History Insulin Detemir [Levemir Flexpen] 5 units SQ HS 04/12/24 04/12/24 History Metoprolol Tartrate [Lopressor] 12.5 mg PO BID 04/12/24 04/12/24 History Midodrine HCl [ProAmatine] 10 mg PO DAILY PRN 04/12/24 04/12/24 History Allergies Allergy/AdvReac Type Severity Reaction Status Date / Time No Known Allergies Allergy Verified 04/12/24 11:45 Physical Exam Vitals: Vital Signs Temp Pulse Resp BP Pulse Ox 04/12/24 11:00 102 H 20 78/51 96 04/12/24 10:43 103 H 20 79/47 96 04/12/24 10:00 82/50 04/12/24 09:30 96/75 04/12/24 07:51 112 H 20 91/45 96 04/12/24 06:32 98.4 F 67 20 84/68 100 Intake and Output 04/11/24 04/12/24 04/12/24 22:59 06:59 14:59 Other: Weight 123.831 kg Results CBC & Chem 7: 04/12/24 06:52 04/12/24 06:52 Labs: Abnormal Lab Results - Last 24 Hours (Table) 04/12/24 04/12/24 04/12/24 Range/Units 06:52 06:52 06:52 WBC 25.1 H (3.8-10.6) k/uL RBC 3.18 L (4.30-5.90) m/uL Hgb 10.0 L (13.0-17.5) gm/dL Hct 31.8 L (39.0-53.0) % MCV 100.2 H (80.0-100.0) fL Neutrophils # 23.2 H (1.3-7.7) k/uL Lymphocytes # 0.2 L (1.0-4.8) k/uL Monocytes # 1.5 H (0-1.0) k/uL PT 15.3 H (10.0-12.5) sec INR 1.5 H (<1.2) APTT 33.7 H (22.0-30.0) sec Sodium 128 L (137-145) mmol/L Chloride 87 L (98-107) mmol/L BUN 47 H (9-20) mg/dL Creatinine 4.89 H (0.66-1.25) mg/dL Glucose 229 H (74-99) mg/dL Plasma Lactic Acid Oscar (0.7-2.0) mmol/L Calcium 8.2 L (8.4-10.2) mg/dL Phosphorus 5.8 H (2.5-4.5) mg/dL Magnesium 1.4 L (1.6-2.3) mg/dL Total Bilirubin 1.7 H (0.2-1.3) mg/dL AST 148 H (17-59) U/L ALT 163 H (4-49) U/L Alkaline Phosphatase 183 H (38-126) U/L Troponin I (0.000-0.034) ng/mL Total Protein 6.1 L (6.3-8.2) g/dL Albumin 3.1 L (3.5-5.0) g/dL 04/12/24 04/12/24 04/12/24 Range/Units 06:54 06:54 10:03 WBC (3.8-10.6) k/uL RBC (4.30-5.90) m/uL Hgb (13.0-17.5) gm/dL Hct (39.0-53.0) % MCV (80.0-100.0) fL Neutrophils # (1.3-7.7) k/uL Lymphocytes # (1.0-4.8) k/uL Monocytes # (0-1.0) k/uL PT (10.0-12.5) sec INR (<1.2) APTT (22.0-30.0) sec Sodium (137-145) mmol/L Chloride (98-107) mmol/L BUN (9-20) mg/dL Creatinine (0.66-1.25) mg/dL Glucose (74-99) mg/dL Plasma Lactic Acid Oscar 3.8 H* (0.7-2.0) mmol/L Calcium (8.4-10.2) mg/dL Phosphorus (2.5-4.5) mg/dL Magnesium (1.6-2.3) mg/dL Total Bilirubin (0.2-1.3) mg/dL AST (17-59) U/L ALT (4-49) U/L Alkaline Phosphatase (38-126) U/L Troponin I 0.040 H* 0.035 H* (0.000-0.034) ng/mL Total Protein (6.3-8.2) g/dL Albumin (3.5-5.0) g/dL 04/12/24 Range/Units 10:03 WBC (3.8-10.6) k/uL RBC (4.30-5.90) m/uL Hgb (13.0-17.5) gm/dL Hct (39.0-53.0) % MCV (80.0-100.0) fL Neutrophils # (1.3-7.7) k/uL Lymphocytes # (1.0-4.8) k/uL Monocytes # (0-1.0) k/uL PT (10.0-12.5) sec INR (<1.2) APTT (22.0-30.0) sec Sodium (137-145) mmol/L Chloride (98-107) mmol/L BUN (9-20) mg/dL Creatinine (0.66-1.25) mg/dL Glucose (74-99) mg/dL Plasma Lactic Acid Oscar 2.2 H* (0.7-2.0) mmol/L Calcium (8.4-10.2) mg/dL Phosphorus (2.5-4.5) mg/dL Magnesium (1.6-2.3) mg/dL Total Bilirubin (0.2-1.3) mg/dL AST (17-59) U/L ALT (4-49) U/L Alkaline Phosphatase (38-126) U/L Troponin I (0.000-0.034) ng/mL Total Protein (6.3-8.2) g/dL Albumin (3.5-5.0) g/dL
[2024-04-12] MEDS: METOPROLOL TARTRATE 12.5 MG TAB PO SCH (13:00)
[2024-04-12] MEDS: COLLAGENASE 250 UNIT/GM OINTMENT 30 GM TUBE TOPICAL SCH (13:02)
[2024-04-12] MEDS: CALCIUM ACETATE 667 MG TAB PO SCH (13:05)
--- NOTE | 2024-04-12 13:12 | OP ---
OPERATIVE REPORT DATE OF SERVICE : HISTORY: This is a 63-year-old gentleman, well known to me from the past. The patient has a history of chronic renal failure, on dialysis. The patient had a right foot big toe amputation done by me in the past. We treated with local wound care. The patient came to the Wound Clinic last Tuesday, we did the debridement and we used Santyl cream which we continued. The patient came in because after dialysis the patient felt to be dizzy and the patient fell down on right side of his head on the TV table. The patient also has been feeling has some shortness of breath for the last few days. Denies any chest pain. PAST HISTORY: The patient has history of coronary artery disease, heart failure, CVA, TIA in the past, diabetes, hypertension, myocardial infarction, renal disease, respiratory disease, sleep apnea with the patient using CPAP. SURGICAL HISTORY: The patient had multiple fingers removed by the hand surgeon at [facility] in the past. The patient also had a cephalic brachial fistula placed in the past. The patient had a right fracture of the ankle and tibia and fibula. The patient had screws and stacey placed from the ankle all the way up to the knee joint at [facility] in the past. The patient had a right big toe amputation done in the past. We repeated local wound care. PHYSICAL EXAMINATION: GENERAL: On examination, the patient was seen in the emergency room, lying comfortably in bed. LUNGS: Good air entry in both lungs. Few crackles at the lung bases. HEART: First and second sounds present. VASCULAR: The patient has a cephalobrachial fistula. Femorals are 2+ bilateral. We did the right leg angiogram last week. The patient has a triphasic flow all the way down to the foot. The iliac, femoral, and popliteal and the tibial vessels are patent. I had a long discussion with the patient in the past. If he needs major amputation because of the wound on the right foot has been some devitalized tissue which we excised in last Wound Clinic and with dry scab on the right heel. We will treat with Santyl cream and IV antibiotic. We will follow with you. MMODL / IJN: [id number] /
--- NOTE | 2024-04-12 16:13 | P.CNPUL ---
History of Present Illness Consult date: 04/12/24 Requesting physician: Pearl Jaeger Reason for consult: other (Critical care management) Chief complaint: Gangrenous right foot, hypotension History of present illness: This is a pleasant 63-year-old male patient with a known history of coronary artery disease with previous stent placement to the LAD, congestive heart failure, diabetes mellitus, hypertension, obstructive sleep apnea, CVA, end- stage renal disease on dialysis Tuesday. He also has peripheral vascular disease with multiple amputations of his fingers. He also had an amputation of his right great toe that has become infected and gangrenous. He has been following with Dr. Levy. Presented here to the emergency room early this morning after sustaining a fall while getting up from a chair and hit the right side of his head on a TV table. He is on both Eliquis and Plavix. He denied any loss of consciousness. CT scan of the head revealed no acute intracranial process. Cervical spine revealed no evidence of fracture. While here in the hospital he was found to be hypotensive. He was to have dialysis today. X-ray reveals some mild fluid volume overload. X-ray of the right foot revealed no acute fracture or dislocation. White count 25.1. Hemoglobin 10.0. Platelets 226. INR 1.5. Sodium 128. Potassium 5.0. Bicarb 25. BUN 47. Creatinine 4.89. Glucose 229. AST 148. ALT 163. Troponin 0.039, 0.035. proBNP 192,000. Viral screen negative. He is seen today in consultation in the emergency department. He is currently sitting up in chair in a chair. Awake and alert in no acute distress. He is a bit lightheaded. His pressures have been as low as 60 systolic. Most recent blood pressure 90/53 with a mean of 65. Maintaining good O2 saturations up to 100% on 2 L/min per n vanessa cannula. He is afebrile. He has been initiated on vancomycin and Zosyn. Review of Systems REVIEW OF SYSTEMS: CONSTITUTIONAL: Right foot and head pain status post fall. Denies any recent significant weight loss or weight gain. EYES: Denies change in vision. EARS, NOSE, MOUTH, THROAT: Denies headaches, denies sore throat. CARDIOVASCULAR: Denies chest pain, palpitations or syncopal episodes. RESPIRATORY: Denies shortness of breath, cough, congestion or hemoptysis. GASTROINTESTINAL: Denies change in appetite, denies abdominal pain GENITOURINARY: Denies hematuria, denies infections. MUSKULOSKELETAL: Denies pain, denies swelling. INTEGUMENTARY: Denies rash, denies eczema. NEUROLOGICAL: Denies recent memory loss, no recent seizure activity. PSYCHIATRIC: Denies anxiety, denies depression. HEMATOLOGIC/LYMPHATIC: Denies anemia, denies enlarged lymph nodes. Past Medical History Past Medical History: Coronary Artery Disease (CAD), Cancer, Heart Failure, CVA/TIA, Diabetes Mellitus, Eye Disorder, Hypertension, Myocardial Infarction ([place]), Renal Disease, Respiratory Disorder, Sleep Apnea/CPAP/BIPAP, Thyroid Disorder Additional Past Medical History / Comment(s): unhealing sore left index finger, neuropathy bilateral lower extremity/feet, bilateral eye diabetic retinopathy/poor vision/multiple injections, ESRD with hemodialysis M/W/F from 6:15 to 11:00, anemia, "mini strokes" x2, AVANI with CPap use, occasional low back pain/disc disease, gout, hypothyroid Last Myocardial Infarction Date:: 04/19/23 History of Any Multi-Drug Resistant Organisms: MRSA Date of last positivie culture/infection: 12/10/21 MDRO Source:: Finger-Right 5th Past Surgical History: Adenoidectomy, Bariatric Surgery, Cholecystectomy, Heart Catheterization, Heart Catheterization With Stent, Orthopedic Surgery, Tonsillectomy Additional Past Surgical History / Comment(s): 10/22/20 PCI with stents x2, lap banding, FX of right ankle repair pins / plate, fistual lt arm jul 2018, lt shoulder sx (d/t separation), colonoscopies, bilateral cataract removals/lens implants. LIF surgery 08/11/21 R LEG stacey placed January 2023 04/19/23 3 stents Past Anesthesia/Blood Transfusion Reactions: Motion Sickness Additional Past Anesthesia/Blood Transfusion Reaction / Comment(s): CLAUSTERPHOBIA Date of Last Stent Placement:: 04/19/23 Past Psychological History: Anxiety Smoking Status: Former smoker Past Alcohol Use History: None Reported Past Drug Use History: None Reported - Past Family History Mother History Unknown: Yes Family Medical History: Coronary Artery Disease (CAD), Myocardial Infarction ([place]) Additional Family Medical History / Comment(s): Mother at age 58 from multiple sclerosis Father Family Medical History: CVA/TIA, Myocardial Infarction ([place]) Additional Family Medical History / Comment(s): Father had history of [place] and CVA followed by a second [place] and CVA and at age 65. Brother(s) Additional Family Medical History / Comment(s): . Medications and Allergies Home Medications Medication Instructions Recorded Confirmed Type Levothyroxine Sodium 100 mcg PO HS 07/06/17 04/12/24 History HYDROcodone/APAP 10-325MG [[place] 1 tab PO 5XD PRN 11/24/20 04/12/24 History 10-325] Insulin Regular, Human [NovoLIN R See Protocol SQ ACHS PRN 11/24/20 04/12/24 History Flexpen] Apixaban [Eliquis] 2.5 mg PO BID 02/16/23 04/12/24 History Atorvastatin [Lipitor] 40 mg PO HS 07/16/23 04/12/24 History Calcium Acetate [PhosLo] 1,334 mg PO AC-TID 07/16/23 04/12/24 History Calcium Acetate [PhosLo] 667 mg PO DAILY PRN 07/16/23 04/12/24 History LORazepam 1 mg PO BID PRN 11/23/23 04/12/24 History Clopidogrel [Plavix] 75 mg PO DAILY 90 Days #90 tab 11/26/23 04/12/24 Rx Midodrine HCl [ProAmatine] 10 mg PO TUTHSA 01/25/24 04/12/24 History Calcium Carbonate [Tums] 500 mg PO QID PRN tab 02/08/24 04/12/24 Rx Collagenase [Santyl Ointment] 1 applic TOPICAL Q2D 04/12/24 04/12/24 History FLUoxetine HCL [PROzac] 20 mg PO BID 04/12/24 04/12/24 History Insulin Detemir [Levemir Flexpen] 5 units SQ HS 04/12/24 04/12/24 History Metoprolol Tartrate [Lopressor] 12.5 mg PO BID 04/12/24 04/12/24 History Midodrine HCl [ProAmatine] 10 mg PO DAILY PRN 04/12/24 04/12/24 History Allergies Allergy/AdvReac Type Severity Reaction Status Date / Time No Known Allergies Allergy Verified 04/12/24 11:45 Physical Exam Vitals: Vital Signs Temp Pulse Resp BP Pulse Ox 04/12/24 15:45 93 20 90/53 100 04/12/24 15:16 20 81/53 100 04/12/24 15:04 61/42 04/12/24 14:56 91 20 80/35 100 04/12/24 14:41 85 20 67/56 99 04/12/24 14:30 68/44 04/12/24 14:01 82 20 89/48 98 04/12/24 13:46 93 20 73/42 97 04/12/24 13:02 80 20 85/55 96 04/12/24 12:25 74/54 04/12/24 12:17 99 20 74/57 97 04/12/24 11:00 102 H 20 78/51 96 04/12/24 10:43 103 H 20 79/47 96 04/12/24 10:00 82/50 04/12/24 09:30 96/75 04/12/24 07:51 112 H 20 91/45 96 04/12/24 06:32 98.4 F 67 20 84/68 100 Intake and Output 04/12/24 04/12/24 04/12/24 06:59 14:59 22:59 Other: Weight 123.831 kg GENERAL EXAM: Alert, pleasant 63-year-old male, on 2 L nasal cannula, comfortable in no apparent distress. HEAD: Normocephalic. EYES: Normal reaction of pupils, equal size. NOSE: Clear with pink turbinates. THROAT: No erythema or exudates. NECK: No masses, no JVD. CHEST: No chest wall deformity. LUNGS: Equal air entry with faint crackles in the posterior bases. CVS: S1 and S2 normal with no audible murmur, irregular rhythm. ABDOMEN: No hepatosplenomegaly, normal bowel sounds, no guarding or rigidity. SPINE: No scoliosis or deformity SKIN: No rashes. Multiple wounds of the left upper extremity secondary to dog bites. CENTRAL NERVOUS SYSTEM: No focal deficits, tone is normal in all 4 extremities. EXTREMITIES: Multiple amputations of several fingers bilaterally. Open wound and gangrenous skin status post right great toe amputation. Results - Laboratory Findings CBC and BMP: 04/12/24 06:52 04/12/24 06:52 PT/INR, D-dimer PT 15.3 sec (10.0-12.5) H 04/12/24 06:52 INR 1.5 (<1.2) H 04/12/24 06:52 Abnormal lab findings: Abnormal Labs 04/12/24 04/12/24 04/12/24 06:52 06:52 06:52 WBC 25.1 H RBC 3.18 L Hgb 10.0 L Hct 31.8 L MCV 100.2 H Neutrophils # 23.2 H Lymphocytes # 0.2 L Monocytes # 1.5 H PT 15.3 H INR 1.5 H APTT 33.7 H Sodium 128 L Chloride 87 L BUN 47 H Creatinine 4.89 H Glucose 229 H Plasma Lactic Acid Oscar Calcium 8.2 L Phosphorus 5.8 H Magnesium 1.4 L Total Bilirubin 1.7 H AST 148 H ALT 163 H Alkaline Phosphatase 183 H Troponin I Total Protein 6.1 L Albumin 3.1 L 04/12/24 04/12/24 04/12/24 06:54 06:54 10:03 WBC RBC Hgb Hct MCV Neutrophils # Lymphocytes # Monocytes # PT INR APTT Sodium Chloride BUN Creatinine Glucose Plasma Lactic Acid Oscar 3.8 H* Calcium Phosphorus Magnesium Total Bilirubin AST ALT Alkaline Phosphatase Troponin I 0.040 H* 0.035 H* Total Protein Albumin 04/12/24 04/12/24 04/12/24 10:03 12:48 12:48 WBC RBC Hgb Hct MCV Neutrophils # Lymphocytes # Monocytes # PT INR APTT Sodium Chloride BUN Creatinine Glucose Plasma Lactic Acid Oscar 2.2 H* Calcium Phosphorus 5.9 H Magnesium Total Bilirubin AST ALT Alkaline Phosphatase Troponin I 0.039 H* Total Protein Albumin 04/12/24 13:25 WBC RBC Hgb Hct MCV Neutrophils # Lymphocytes # Monocytes # PT INR APTT Sodium Chloride BUN Creatinine Glucose Plasma Lactic Acid Socar 2.1 H* Calcium Phosphorus Magnesium Total Bilirubin AST ALT Alkaline Phosphatase Troponin I Total Protein Albumin - Diagnostic Findings Chest x-ray: image reviewed Assessment and Plan Assessment: Fall from standing position, hitting his head on the TV stand, CT scan reveals no acute intracranial process, no cervical spine fracture Hypotension suspect secondary to sepsis from the open wound on the right toe from recent amputation End-stage renal disease on hemodialysis Tuesday, missed today due to above noted fall Coronary artery disease with previous stent placement to the LAD and multiple prior stenting Atrial fibrillation anticoagulated with Eliquis Diabetes mellitus Peripheral vascular disease with multiple amputations of the bilateral hands and right great toe Diabetic neuropathy Diabetic retinopathy Former smoker History of hypertension History of congestive heart failure Obstructive sleep apnea not on CPAP History of CVA Hypothyroidism Hyperlipidemia Plan: The patient was seen and evaluated Imaging, labs and medications reviewed Will admit to the intensive care unit due to hypotension Continue midodrine Cultures of the wound of the right foot Obtain blood cultures Continue on vancomycin and Zosyn Hemodialysis per nephrology We will continue to follow and make further recommendations based on his clinical status I have personally seen and examined the patient, performed the documentation and the assessment and plan as written. Number of minutes spent on the visit: 20.
[2024-04-12 16:29] LABS: Glucose,Whole Blood 245 mg/dL (70-110)
[2024-04-12] MEDS: SODIUM CHLORIDE 0.9% 500 ML 500 ML IV ONE (17:41)
[2024-04-12] MEDS: SODIUM CHLORIDE 0.9% 1,000 ML IV ONE (20:21)
[2024-04-12 20:26] LABS: Glucose,Whole Blood 205 mg/dL (70-110)
--- NOTE | 2024-04-12 20:26 | P.CONS ---
History of Present Illness - Reason for Consult Consult date: 04/12/24 Multiple open wound/sores Requesting physician: Sierra Henderson - Chief Complaint Weakness and fall x 1 day - History of Present Illness Patient is a 63-year-old male with a past medical history significant for diabetes mellitus hypertension heart failure coronary disease history of end-stage renal disease on dialysis patient was recently admitted at this [facility] it and january patient did have a right big toe gangrene in this patient who is status post amputation of the right big toe culture at that time was positive for MSSA patient was advised to a course of IV cefazolin with the dialysis patient subsequently has been following up with Dr. Bermudez in the wound care center every Tuesday patient has not been brought back to the hospital after apparently the patient did have a fall patient was getting up from a chair when he fell and hit the right side of his head on a TV table patient has been on blood thinner apparently patient has been feeling very weak and tired recently and the patient also noticed to have worsening of the wound to the rig ht big toe amputation site and has also developed wound on the right foot lateral border which has been going on for the last few weeks patient did have diabetic neuropathy denies significant pain did have some foul-smelling drainage on presentation to the hospital patient was afebrile and no fever have recorded subsequently patient was tachycardic and hypotensive mildly hypoxic currently on 2 L current oxygen patient did have a white count of 25.1 with a left shift getting creatinine has been elevated potassium was 5.0 liver isms are elevated influenza RSV COVID testing was negative patient did have a foot x-ray postoperative changes at the big toe no radiographic evidence suggest osteomyel itis, patient did have a chest x-ray no evidence for acute cardiopulmonary disease patient was started on vancomycin and Zosyn admitted to the hospital infectious disease was consulted for further management of antibiotic therapy Review of Systems Positive point and negatives has been mentioned in the HPI, complete review of systems was performed and all other systems are negative Past Medical History Past Medical History: Coronary Artery Disease (CAD), Cancer, Heart Failure, CVA/TIA, Diabetes Mellitus, Eye Disorder, Hypertension, Myocardial Infarction ([place]), Renal Disease, Respiratory Disorder, Sleep Apnea/CPAP/BIPAP, Thyroid Disorder Additional Past Medical History / Comment(s): unhealing sore left index finger, neuropathy bilateral lower extremity/feet, bilateral eye diabetic retinopathy/poor vision/multiple injections, ESRD with hemodialysis M/W/F from 6:15 to 11:00, anemia, "mini strokes" x2, AVANI with CPap use, occasional low back pain/disc disease, gout, hypothyroid Last Myocardial Infarction Date:: 04/19/23 History of Any Multi-Drug Resistant Organisms: MRSA Year Discovered:: 12/10/21 MDRO Source:: Finger-Right 5th Past Surgical History: Adenoidectomy, Bariatric Surgery, Cholecystectomy, Heart Catheterization, Heart Catheterization With Stent, Orthopedic Surgery, Tonsillectomy Additional Past Surgical History / Comment(s): 10/22/20 PCI with stents x2, lap banding, FX of right ankle repair pins / plate, fistual lt arm jul 2018, lt shoulder sx (d/t separation), colonoscopies, bilateral cataract removals/lens implants. LIF surgery 08/11/21 R LEG stacey placed January 2023 04/19/23 3 stents Past Anesthesia/Blood Transfusion Reactions: Motion Sickness Additional Past Anesthesia/Blood Transfusion Reaction / Comm: CLAUSTERPHOBIA Date of Last Stent Placement:: 04/19/23 Past Psychological History: Anxiety Smoking Status: Former smoker Past Alcohol Use History: None Reported Past Drug Use History: None Reported - Past Family History Mother History Unknown: Yes Family Medical History: Coronary Artery Disease (CAD), Myocardial Infarction ([place]) Additional Family Medical History / Comment(s): Mother at age 58 from multiple sclerosis Father Family Medical History: CVA/TIA, Myocardial Infarction ([place]) Additional Family Medical History / Comment(s): Father had history of [place] and CVA followed by a second [place] and CVA and at age 65. Brother(s) Additional Family Medical History / Comment(s): . Medications and Allergies Home Medications Medication Instructions Recorded Confirmed Type Levothyroxine Sodium 100 mcg PO HS 07/06/17 04/12/24 History HYDROcodone/APAP 10-325MG [[place] 1 tab PO 5XD PRN 11/24/20 04/12/24 History 10-325] Insulin Regular, Human [NovoLIN R See Protocol SQ ACHS PRN 11/24/20 04/12/24 History Flexpen] Apixaban [Eliquis] 2.5 mg PO BID 02/16/23 04/12/24 History Atorvastatin [Lipitor] 40 mg PO HS 07/16/23 04/12/24 History Calcium Acetate [PhosLo] 1,334 mg PO AC-TID 07/16/23 04/12/24 History Calcium Acetate [PhosLo] 667 mg PO DAILY PRN 07/16/23 04/12/24 History LORazepam 1 mg PO BID PRN 11/23/23 04/12/24 History Clopidogrel [Plavix] 75 mg PO DAILY 90 Days #90 tab 11/26/23 04/12/24 Rx Midodrine HCl [ProAmatine] 10 mg PO TUTHSA 01/25/24 04/12/24 History Calcium Carbonate [Tums] 500 mg PO QID PRN tab 02/08/24 04/12/24 Rx Collagenase [Santyl Ointment] 1 applic TOPICAL Q2D 04/12/24 04/12/24 History FLUoxetine HCL [PROzac] 20 mg PO BID 04/12/24 04/12/24 History Insulin Detemir [Levemir Flexpen] 5 units SQ HS 04/12/24 04/12/24 History Metoprolol Tartrate [Lopressor] 12.5 mg PO BID 04/12/24 04/12/24 History Midodrine HCl [ProAmatine] 10 mg PO DAILY PRN 04/12/24 04/12/24 History Allergies Allergy/AdvReac Type Severity Reaction Status Date / Time No Known Allergies Allergy Verified 04/12/24 11:45 Physical Exam Vitals: Vital Signs Temp Pulse Resp BP Pulse Ox 04/12/24 07:51 112 H 20 91/45 96 04/12/24 06:32 98.4 F 67 20 84/68 100 Intake and Output 04/11/24 04/12/24 04/12/24 22:59 06:59 14:59 Other: Weight 123.831 kg GENERAL DESCRIPTION: Middle-aged male lying in bed, no distress. No tachypnea or accessory muscle of respiration use. HEENT: Shows Pallor , no scleral icterus. Oral mucous membrane is dry. No pharyngeal erythema or thrush NECK: Trachea central, no thyromegaly. LUNGS: Unlabored breathing. Clear to auscultation anteriorly. No wheeze or crackle. HEART: S1, S2, regular rate and rhythm. No loud murmur ABDOMEN: Soft, no tenderness , guarding or rigidity, no organomegaly EXTREMITIES: Right big toe amputation site wound with a necrotic base he also wound on the right foot lateral border which is necrotic with associated swelling some redness and foul-smelling drainage SKIN: No rash, no masses palpable. NEUROLOGICAL: The patient is awake, alert, oriented x3, mood and affect normal. Results CBC & Chem 7: 04/12/24 06:52 04/12/24 06:52 Labs: Abnormal Lab Results - Last 24 Hours (Table) 04/12/24 04/12/24 04/12/24 Range/Units 06:52 06:52 06:52 WBC 25.1 H (3.8-10.6) k/uL RBC 3.18 L (4.30-5.90) m/uL Hgb 10.0 L (13.0-17.5) gm/dL Hct 31.8 L (39.0-53.0) % MCV 100.2 H (80.0-100.0) fL Neutrophils # 23.2 H (1.3-7.7) k/uL Lymphocytes # 0.2 L (1.0-4.8) k/uL Monocytes # 1.5 H (0-1.0) k/uL PT 15.3 H (10.0-12.5) sec INR 1.5 H (<1.2) APTT 33.7 H (22.0-30.0) sec Sodium 128 L (137-145) mmol/L Chloride 87 L (98-107) mmol/L BUN 47 H (9-20) mg/dL Creatinine 4.89 H (0.66-1.25) mg/dL Glucose 229 H (74-99) mg/dL Plasma Lactic Acid Oscar (0.7-2.0) mmol/L Calcium 8.2 L (8.4-10.2) mg/dL Phosphorus 5.8 H (2.5-4.5) mg/dL Magnesium 1.4 L (1.6-2.3) mg/dL Total Bilirubin 1.7 H (0.2-1.3) mg/dL AST 148 H (17-59) U/L ALT 163 H (4-49) U/L Alkaline Phosphatase 183 H (38-126) U/L Troponin I (0.000-0.034) ng/mL Total Protein 6.1 L (6.3-8.2) g/dL Albumin 3.1 L (3.5-5.0) g/dL 04/12/24 04/12/24 Range/Units 06:54 06:54 WBC (3.8-10.6) k/uL RBC (4.30-5.90) m/uL Hgb (13.0-17.5) gm/dL Hct (39.0-53.0) % MCV (80.0-100.0) fL Neutrophils # (1.3-7.7) k/uL Lymphocytes # (1.0-4.8) k/uL Monocytes # (0-1.0) k/uL PT (10.0-12.5) sec INR (<1.2) APTT (22.0-30.0) sec Sodium (137-145) mmol/L Chloride (98-107) mmol/L BUN (9-20) mg/dL Creatinine (0.66-1.25) mg/dL Glucose (74-99) mg/dL Plasma Lactic Acid Oscar 3.8 H* (0.7-2.0) mmol/L Calcium (8.4-10.2) mg/dL Phosphorus (2.5-4.5) mg/dL Magnesium (1.6-2.3) mg/dL Total Bilirubin (0.2-1.3) mg/dL AST (17-59) U/L ALT (4-49) U/L Alkaline Phosphatase (38-126) U/L Troponin I 0.040 H* (0.000-0.034) ng/mL Total Protein (6.3-8.2) g/dL Albumin (3.5-5.0) g/dL Assessment and Plan (1) Diabetic foot infection Current Visit: Yes Status: Acute Code(s): E11.628 - TYPE 2 DIABETES MELLITUS WITH OTHER SKIN COMPLICATIONS; L08.9 - LOCAL INFECTION OF THE SKIN AND SUBCUTANEOUS TISSUE, UNSP SNOMED Code(s): 349390142 (2) Gangrene of right foot Current Visit: Yes Status: Acute Code(s): I96 - GANGRENE, NOT ELSEWHERE CLASSIFIED SNOMED Code(s): 69722474088475303 (3) Sepsis Current Visit: Yes Status: Acute Code(s): A41.9 - SEPSIS, UNSPECIFIED ORGANISM SNOMED Code(s): 70633380 (4) Type 2 diabetes mellitus with foot ulcer Current Visit: No Status: Acute Code(s): E11.621 - TYPE 2 DIABETES MELLITUS WITH FOOT ULCER; L97.509 - NON-PRESSURE CHRONIC ULCER OTH PRT UNSP FOOT W UNSP SEVERITY SNOMED Code(s): 8539817724840 Plan: 1patient presented to hospital with sepsis in this patient who did have signif icant elevated white count he is also hypotensive or tachycardic bradycardia. Sources right diabetic foot infection in this patient who did have a chronic nonhealing wound. Rotation of the right big toe and also with a necrotic wound on the right foot lateral border previous culture positive for MSSA however will need to cover for resistant gram-positive as well as gram-negative pathogen pending workup outpatient 2-patient benefit from surgical debridement and deep culture 3-patient be broadly covered with vancomycin and Zosyn pending completion of the workup 4-local wound care per the surgical team We will follow on clinical condition and cultures to further adjust medication if needed Thank you for this consultation we will follow the patient along with you Dictation was produced using [employer] dictation software. please excuse any grammatical, word or spelling errors. Time with Patient: Greater than 30
[2024-04-12] MEDS ORDERED: DEXTROSE 50% SYRINGE 50 ML IVP PRN ×2 (20:41)
[2024-04-12] MEDS: LEVOTHYROXINE 100 MCG TAB PO SCH (20:46)
[2024-04-12] MEDS: ATORVASTATIN 40 MG TAB PO SCH (20:46)
[2024-04-12] MEDS: APIXABAN 2.5 MG TABLET PO SCH (20:46)
[2024-04-12] MEDS: INSULIN ASPART (NovoLOG) 100 UNIT/ML VIAL SQ SCH (20:46)
[2024-04-12] MEDS: INSULIN DETEMIR (LEVEMIR) 100 UNIT/ML SYR SQ SCH (20:46)
[2024-04-12] MEDS: FLUoxetine HCL 20 MG CAP PO SCH (20:46)
[2024-04-12] MEDS: NOREPINEPHRINE 4 MG in SODIUM CHLORIDE 0.9% 250 ML IV SCH (22:21)
[2024-04-13 05:54] LABS: Glucose,Whole Blood 170 mg/dL (70-110)
[2024-04-13 06:10] LABS: HCT 34.1 % (39.0-53.0); HGB 10.6 gm/dL (13.0-17.5); Hypochromasia Moderate; MCH 31.3 pg (25.0-35.0); MCHC 31.1 g/dL (31.0-37.0); MCV 100.8 fL (80.0-100.0); Macrocytosis Slight; Mean Platelet Volume 8.4; Platelet Count 240 k/uL (150-450); RBC 3.38 m/uL (4.30-5.90); RDW 15.2 % (11.5-15.5); WBC 25.8 k/uL (3.8-10.6)
[2024-04-13 06:34] LABS: African American GFR (CKD) 13 (>60 ml/min/1.73 sqM); Anion Gap 15 mmol/L; Blood Urea Nitrogen 56 mg/dL (9-20); Calcium 8.2 mg/dL (8.4-10.2); Carbon Dioxide 22 mmol/L (22-30); Chloride 91 mmol/L (98-107); Glucose 141 mg/dL (74-99); Magnesium 1.4 mg/dL (1.6-2.3); Non-African American GFR(CKD) 11 (>60 ml/min/1.73 sqM); Sodium 128 mmol/L (137-145)
[2024-04-13] MEDS ORDERED: Magnesium Replacement Protocol 1 EACH MISC MISCELLANE PRN (07:51)
[2024-04-13] MEDS: ACETAMINOPHEN TAB 325 MG TAB PO PRN (07:53)
[2024-04-13] MEDS: LORazepam 1 MG TAB PO PRN (07:54)
[2024-04-13] MEDS: CLOPIDOGREL 75 MG TAB PO SCH (07:54)
[2024-04-13] MEDS: MAGNESIUM SULFATE-D5W PMX 1 GM in DEXTROSE/WATER 1 100ML.BAG IVPB SCH (08:50)
[2024-04-13] MEDS: VANCOMYCIN 2,000 MG in SODIUM CHLORIDE 0.9% 500 ML 500 ML IVPB ONE (08:51)
[2024-04-13] MEDS: AMIODARONE 360 MG in DEXTROSE 5% IN WATER 200 ML IV ONE (08:58)
[2024-04-13] MEDS: HYDROcodone/APAP 10-325MG 1 EACH TAB PO PRN (09:11)
[2024-04-13] MEDS ORDERED: AMIODARONE 450 MG in DEXTROSE 5% IN WATER 250 ML IV SCH (10:00)
[2024-04-13] MEDS: COLLAGENASE 250 UNIT/GM OINTMENT 30 GM TUBE TOPICAL SCH (11:35)
[2024-04-13] MEDS: DEXTROSE 5% IN WATER 100 ML with AMIODARONE 150 MG IV ONE (11:37)
[2024-04-13 11:39] LABS: Glucose,Whole Blood 117 mg/dL (70-110)
--- NOTE | 2024-04-13 11:42 | P.PN ---
Subjective patient is seen for follow-up for end-stage renal disease. Currently seen on hemodialysis. Patient was transferred to the ICU yesterday due to continued hypotension. He is currently maintained on levo fed. Blood cultures are positive for gram-positive cocci. Maintained on vancomycin. Being followed by vascular surgery for possible need for BKA versus AKA. Objective - Vital Signs Vital signs: Vital Signs Temp 98.4 F 04/13/24 08:00 Pulse 111 H 04/13/24 10:15 Resp 25 H 04/13/24 10:15 BP 114/64 04/13/24 10:15 Pulse Ox 100 04/13/24 10:15 FiO2 Intake & Output 04/12/24 04/13/24 04/13/24 18:59 06:59 18:59 Intake Total 500 1580.093 165.838 Output Total 0 0 0 Balance 500 1580.093 165.838 Weight 123.831 kg Intake: Intake, IV Titration 500 1136.093 165.838 Amount Norepinephrine 4 mg In 36.093 165.838 Sodium Chloride 0.9% 250 ml @ 0.03 MCG/KG/MIN 14. 154 mls/hr IV .[id number] [facility] Rx#:[id number] Piperacillin-Tazobactam 3 100 .375 gm In Sodium Chloride 0.9% 100 ml @ 25 mls/hr IVPB Q12H [facility] Rx# :[id number] Sodium Chloride 0.9% 1, 1000 000 ml @ 999 mls/hr IV . Q1H1M [facility] Rx#:[id number] Sodium Chloride 0.9% 500 500 ml 500 ml @ 999 mls/hr IV .Q31M [facility] Rx#:[id number] Oral 444 Output: Urine 0 0 0 Other: Voiding Method Urinal - Exam Patient is awake, comfortable, no acute distress. Alert oriented x 3. Examination of the heart S1 and S2 Examination of the lungs bilateral breath sounds are heard Abdomen is soft obese Examination of lower extremities shows 1+ edema. Right foot is dressed. 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 [facility] [employer] HAND exam grossly intact - Labs CBC & Chem 7: 04/13/24 05:37 04/13/24 05:37 Labs: Abnormal Lab Results - Last 24 Hours (Table) 08/01/24 08/01/24 08/01/24 Range/Units 12:48 12:48 13:25 WBC (3.8-10.6) k/uL RBC (4.30-5.90) m/uL Hgb (13.0-17.5) gm/dL Hct (39.0-53.0) % MCV (80.0-100.0) fL Sodium (137-145) mmol/L Chloride (98-107) mmol/L BUN (9-20) mg/dL Creatinine (0.66-1.25) mg/dL Glucose (74-99) mg/dL POC Glucose (mg/dL) (70-110) mg/dL Hemoglobin A1c (<=6.0) % Plasma Lactic Acid Oscar 2.1 H* (0.7-2.0) mmol/L Calcium (8.4-10.2) mg/dL Phosphorus 5.9 H (2.5-4.5) mg/dL Magnesium (1.6-2.3) mg/dL Troponin I 0.039 H* (0.000-0.034) ng/mL 04/12/24 04/12/24 04/13/24 Range/Units 16:28 20:24 05:37 WBC (3.8-10.6) k/uL RBC (4.30-5.90) m/uL Hgb (13.0-17.5) gm/dL Hct (39.0-53.0) % MCV (80.0-100.0) fL Sodium (137-145) mmol/L Chloride (98-107) mmol/L BUN (9-20) mg/dL Creatinine (0.66-1.25) mg/dL Glucose (74-99) mg/dL POC Glucose (mg/dL) 245 H 205 H (70-110) mg/dL Hemoglobin A1c 7.5 H (<=6.0) % Plasma Lactic Acid Oscar (0.7-2.0) mmol/L Calcium (8.4-10.2) mg/dL Phosphorus (2.5-4.5) mg/dL Magnesium (1.6-2.3) mg/dL Troponin I (0.000-0.034) ng/mL 04/13/24 04/13/24 04/13/24 Range/Units 05:37 05:37 05:53 WBC 25.8 H (3.8-10.6) k/uL RBC 3.38 L (4.30-5.90) m/uL Hgb 10.6 L (13.0-17.5) gm/dL Hct 34.1 L (39.0-53.0) % MCV 100.8 H (80.0-100.0) fL Sodium 128 L (137-145) mmol/L Chloride 91 L (98-107) mmol/L BUN 56 H (9-20) mg/dL Creatinine 5.21 H (0.66-1.25) mg/dL Glucose 141 H (74-99) mg/dL POC Glucose (mg/dL) 170 H (70-110) mg/dL Hemoglobin A1c (<=6.0) % Plasma Lactic Acid Oscar (0.7-2.0) mmol/L Calcium 8.2 L (8.4-10.2) mg/dL Phosphorus (2.5-4.5) mg/dL Magnesium 1.4 L (1.6-2.3) mg/dL Troponin I (0.000-0.034) ng/mL Microbiology - Last 24 Hours (Table) 04/12/24 08:28 Blood Culture Gram Stain - Preliminary Blood Blood Culture - Preliminary Molecular ID 04/12/24 08:28 Gram Stain - Preliminary Foot - Right 04/12/24 08:28 Blood Culture Gram Stain - Preliminary Blood Assessment and Plan Assessment: 1. End-stage renal disease on hemodialysis on Tuesday schedule via left arm AV fistula. 2. Right foot wound status post right big toe amputation in January 2024 currently with chronic wound status post recent I&D and being followed at the wound clinic with Dr. Levy. Recently noticed to have increased drainage from the wound. Currently maintained on IV antibiotics and there is discussion of possible BKA versus AKA. 3. CKD mineral bone disorder 4. Coronary artery disease 5. Type 2 diabetes 6. Sepsis from gram-positive bacteremia from right foot wound infection. Maintained on vancomycin and Zosyn. Plan: Continue antibiotics. hemodialysis today and possibly repeat in a.m. if patient is hemodynamically stable.
[2024-04-13] MEDS: ZINC OXIDE PASTE (Z-GUARD) 1 APPLIC TOPICAL PRN (12:00)
[2024-04-13 12:25] VITALS: BMI 38.0
--- NOTE | 2024-04-13 12:39 | PN ---
PROGRESS NOTE Patient is a 63-year-old gentleman. Patient had a right big toe treated in the past. We treated him with local wound care using Santyl cream and also patient has a dry scab on the lateral aspect of the foot. The patient came with sepsis. He has history of diabetes, chronic renal failure, on dialysis. The patient had a surgery at [facility] in the past by orthopedic surgeon. Patient has screws and stacey placed in the right tibial fracture and ankle fracture. Patient is on IV antibiotic under care of Infectious Disease. The patient is bradycardic and hypertensive. PLAN: Continue with local wound care. Discussed with the the possibility of transferring to [facility] to be seen by the orthopedic surgeon, who has placed the stacey and possible have an amputation done at the same time. Continue with local wound care and IV antibiotics. MMODL / IJN: [id number] /
--- NOTE | 2024-04-13 13:01 | P.PN ---
Subjective Progress Note Date: 04/13/24 Principal diagnosis: Acute sepsis, bacteremia, and septic shock This is a pleasant 63-year-old male patient with a known history of coronary artery disease with previous stent placement to the LAD, congestive heart failure, diabetes mellitus, hypertension, obstructive sleep apnea, CVA, end- stage renal disease on dialysis Tuesday. He also has peripheral vascular disease with multiple amputations of his fingers. He also had an amputation of his right great toe that has become infected and gangrenous. He has been following with Dr. Levy. Presented here to the emergency room early this morning after sustaining a fall while getting up from a chair and hit the right side of his head on a TV table. He is on both Eliquis and Plavix. He denied any loss of consciousness. CT scan of the head revealed no acute intracranial process. Cervical spine revealed no evidence of fracture. While here in the hospital he was found to be hypotensive. He was to have dialysis today. X-ray reveals some mild fluid volume overload. X-ray of the right foot revealed no acute fracture or dislocation. White count 25.1. Hemoglobin 10.0. Platelets 226. INR 1.5. Sodium 128. Potassium 5.0. Bicarb 25. BUN 47. Creatinine 4.89. Glucose 229. AST 148. ALT 163. Troponin 0.039, 0.035. proBNP 192,000. Viral screen negative. He is seen today in consultation in the emergency department. He is currently sitting up in chair in a chair. Awake and alert in no acute distress. He is a bit lightheaded. His pressures have been as low as 60 systolic. Most recent blood pressure 90/53 with a mean of 65. Maintaining good O2 saturations up to 100% on 2 L/min per nasal cannula. He is afebrile. He has been initiated on vancomycin and Zosyn. Was seen today on 04/13/2024, remains in the ICU, I admitted this patient yesterday from the ER to the ICU when he presented with severe sepsis with infection involving the amputation site of right big toe, patient was hypotensive requiring multiple boluses of saline, nonetheless he continues to have low blood pressure and he required placement on norepinephrine. Presently on 0.06 mcg/kg/min. His blood cultures came back positive for what seems to be Staph aureus infection, possibly MRSA, in the meantime the patient remains on vancomycin and Zosyn. In addition the patient will require hemodialysis this m lanceing,, patient has been on hemodialysis for the last 5-1/2 years. Pulmonary díaz the patient does not seem to be in distress, he continues to have leukocytosis with WBC count of 25.8 hemoglobin 10.6. His electrolytes showed low sodium of 128 potassium 5 BUN is 56 creatinine 5.21. His bicarb is 22 and he has anion gap of 15 related to his sepsis and related to his chronic renal failure. Lactic acid on admission was 3.8, and today it is 1.90 magnesium is low, being addressed accordingly. Regarding his foot, patient was seen by vascular surgery, and the decision is yet to be made regarding below-knee amputation or above-knee amputation. This is yet to be decided upon Objective - Vital Signs Vital signs: Vital Signs Temp 98.2 F 04/13/24 12:00 Pulse 103 H 04/13/24 12:00 Resp 15 04/13/24 12:00 BP 94/58 04/13/24 12:00 Pulse Ox 99 04/13/24 12:00 FiO2 Intake & Output 04/12/24 04/13/24 04/13/24 18:59 06:59 18:59 Intake Total 500 1580.093 165.838 Output Total 0 0 0 Balance 500 1580.093 165.838 Weight 123.831 kg 123.831 kg Intake: Intake, IV Titration 500 1136.093 165.838 Amount Norepinephrine 4 mg In 36.093 165.838 Sodium Chloride 0.9% 250 ml @ 0.03 MCG/KG/MIN 14. 154 mls/hr IV .[id number] [facility] Rx#:[id number] Piperacillin-Tazobactam 3 100 .375 gm In Sodium Chloride 0.9% 100 ml @ 25 mls/hr IVPB Q12H [facility] Rx# :[id number] Sodium Chloride 0.9% 1, 1000 000 ml @ 999 mls/hr IV . Q1H1M [facility] Rx#:[id number] Sodium Chloride 0.9% 500 500 ml 500 ml @ 999 mls/hr IV .Q31M [facility] Rx#:[id number] Oral 444 Output: Urine 0 0 0 Other: Voiding Method Urinal - Exam GENERAL EXAM: Revealed a 63-year-old white male, on 2 L nasal cannula, not in pulmonary distress HEAD: Normocephalic. EYES: Normal reaction of pupils, equal size. NOSE: Clear with pink turbinates. THROAT: No erythema or exudates. NECK: No masses, no JVD. CHEST: No chest wall deformity. LUNGS: Clear bilaterally no crackles rhonchi or wheezes. CVS: S1 and S2 normal with no audible murmur, irregular rhythm. ABDOMEN: Obese, no hepatosplenomegaly, normal bowel sounds, no guarding or rigidity. SKIN: No rashes. Multiple wounds of the left upper extremity secondary to dog bites. CENTRAL NERVOUS SYSTEM: Alert and oriented x 3 no gross focal deficit EXTREMITIES: Multiple amputations of several fingers bilaterally. Open wound a nd gangrenous skin status post right great toe amputation. - Labs CBC & Chem 7: 04/13/24 05:37 04/13/24 05:37 Labs: Abnormal Lab Results - Last 24 Hours (Table) 04/12/24 04/12/24 04/12/24 Range/Units 12:48 12:48 13:25 WBC (3.8-10.6) k/uL RBC (4.30-5.90) m/uL Hgb (13.0-17.5) gm/dL Hct (39.0-53.0) % MCV (80.0-100.0) fL Sodium (137-145) mmol/L Chloride (98-107) mmol/L BUN (9-20) mg/dL Creatinine (0.66-1.25) mg/dL Glucose (74-99) mg/dL POC Glucose (mg/dL) (70-110) mg/dL Hemoglobin A1c (<=6.0) % Plasma Lactic Acid Oscar 2.1 H* (0.7-2.0) mmol/L Calcium (8.4-10.2) mg/dL Phosphorus 5.9 H (2.5-4.5) mg/dL Magnesium (1.6-2.3) mg/dL Troponin I 0.039 H* (0.000-0.034) ng/mL 04/12/24 04/12/24 04/13/24 Range/Units 16:28 20:24 05:37 WBC (3.8-10.6) k/uL RBC (4.30-5.90) m/uL Hgb (13.0-17.5) gm/dL Hct (39.0-53.0) % MCV (80.0-100.0) fL Sodium (137-145) mmol/L Chloride (98-107) mmol/L BUN (9-20) mg/dL Creatinine (0.66-1.25) mg/dL Glucose (74-99) mg/dL POC Glucose (mg/dL) 245 H 205 H (70-110) mg/dL Hemoglobin A1c 7.5 H (<=6.0) % Plasma Lactic Acid Oscar (0.7-2.0) mmol/L Calcium (8.4-10.2) mg/dL Phosphorus (2.5-4.5) mg/dL Magnesium (1.6-2.3) mg/dL Troponin I (0.000-0.034) ng/mL 04/13/24 04/13/24 04/13/24 Range/Units 05:37 05:37 05:53 WBC 25.8 H (3.8-10.6) k/uL RBC 3.38 L (4.30-5.90) m/uL Hgb 10.6 L (13.0-17.5) gm/dL Hct 34.1 L (39.0-53.0) % MCV 100.8 H (80.0-100.0) fL Sodium 128 L (137-145) mmol/L Chloride 91 L (98-107) mmol/L BUN 56 H (9-20) mg/dL Creatinine 5.21 H (0.66-1.25) mg/dL Glucose 141 H (74-99) mg/dL POC Glucose (mg/dL) 170 H (70-110) mg/dL Hemoglobin A1c (<=6.0) % Plasma Lactic Acid Oscar (0.7-2.0) mmol/L Calcium 8.2 L (8.4-10.2) mg/dL Phosphorus (2.5-4.5) mg/dL Magnesium 1.4 L (1.6-2.3) mg/dL Troponin I (0.000-0.034) ng/mL 04/13/24 Range/Units 11:37 WBC (3.8-10.6) k/uL RBC (4.30-5.90) m/uL Hgb (13.0-17.5) gm/dL Hct (39.0-53.0) % MCV (80.0-100.0) fL Sodium (137-145) mmol/L Chloride (98-107) mmol/L BUN (9-20) mg/dL Creatinine (0.66-1.25) mg/dL Glucose (74-99) mg/dL POC Glucose (mg/dL) 117 H (70-110) mg/dL Hemoglobin A1c (<=6.0) % Plasma Lactic Acid Oscar (0.7-2.0) mmol/L Calcium (8.4-10.2) mg/dL Phosphorus (2.5-4.5) mg/dL Magnesium (1.6-2.3) mg/dL Troponin I (0.000-0.034) ng/mL Microbiology - Last 24 Hours (Table) 04/12/24 08:28 Blood Culture Gram Stain - Preliminary Blood Blood Culture - Preliminary Molecular ID 04/12/24 08:28 Gram Stain - Preliminary Foot - Right 04/12/24 08:28 Blood Culture Gram Stain - Preliminary Blood Assessment and Plan Assessment: Impression: Acute sepsis and septic shock with gram-positive bacteremia, most likely MRSA unless proven otherwise Hypotension secondary to above Status post fall without any specific injury End-stage renal disease, on hemodialysis Underlying coronary artery disease and previous stent placement to LAD and multiple vessel stenting Chronic atrial fibrillation, anticoagulated with Eliquis Peripheral vessel occlusive disease with multiple amputations of multiple fingers both hands, and right big toe amputation Severe diabetic neuropathy and diabetic retinopathy Ex-smoker Benign essential hypertension Obstructive sleep apnea syndrome not on CPAP History of CVA Dyslipidemia History of hypothyroidism Recommendation: Continue to monitor in the ICU as the patient is still requiring pressors/norepinephrine Continue hemodialysis, and cautious monitoring of I's and O's Continue antibiotics for now including vancomycin and Zosyn and adjust based on final cultures Continue midodrine Vascular surgery to address whether the patient needs below-knee or above-knee amputation Resume home meds including meds for diabetes and for underlying coronary artery disease Monitor and adjust electrolytes accordingly GI and DVT prophylaxis Patient is considered relatively critically ill. Will continue to monitor closely in the ICU Prognosis is guarded. Critical care time is over 30 min Time with Patient: Greater than 30
--- NOTE | 2024-04-13 14:21 | P.CN ---
Psychiatric Consult - . Consult date: 04/13/24 Consult:: 04/13/24 13:07 IDENTIFYING DATA: This patient is a 63-year-old male, currently lives with his in a house, he has 3 kids, collects Social Security REASON FOR REFERRAL: Psychiatry was consulted for depression due to declining health HISTORY OF PRESENT ILLNESS: The patient presented to the hospital initially on 04/12 after repeated falls at home and apparently hitting his head. Patient is on blood thinners. Patient was also having increasing shortness of breath, currently on hemodialysis. Patient had nonhealing wounds on his hands and also his feet. Patient is currently being followed by vascular surgery for possible amputation of his right foot. Patient was found to be septic, admitted to the ICU, WBCs were significantly elevated, sodium was decreased. Patient was placed on IV antibiotics. Patient was agreeable to speak to promotion writer today in the room alone. He claims that he is feeling frustrated, claims that his called the ambulance due to the repeated falls and concern about his health. He states that he is frustrated because he got "75 shots" of medications and claims that he has been having swelling around his eyes and has been on steroids for that. Claims that he is also concerned about his limbs and possible amputation. Claims that it has been very tough dealing with his health condition declining and also stressful. Claims that he did previously have passive suicidal thoughts several weeks ago however claims that at this time he is future oriented, spoke about feeling determined to get better and claims that he wants to live for his life and his family. Claims that his depression is mild, anxiety is mild. Claims that his sleep has been on and off appetite has been fair. At this time patient denies any suicidal or homical ideations, intent or plan. Patient denies any auditory, visual hallucinations and denies any paranoia or delusions. Patients admits to using no recreational drugs or cigarettes PAST PSYCHIATRIC HISTORY: Patient has a a history of depression/anxiety. He is currently on Prozac 40 mg a day for depression. Patient denies any previous psychiatric hospitalizations. Patient denies any psychiatric outpatient follow- up. Patient denies any history of suicide attempts in the past. PAST MEDICAL HISTORY: Past Medical History: Coronary Artery Disease (CAD), Cancer, Heart Failure, CVA/TIA, Diabetes Mellitus, Eye Disorder, Hypertension, Myocardial Infarction (SC), Renal Disease, Respiratory Disorder, Sleep Apnea/CPAP/BIPAP, Thyroid Disorder Additional Past Medical History / Comment(s): unhealing sore left index finger, neuropathy bilateral lower extremity/feet, bilateral eye diabetic retinopathy/poor vision/multiple injections, ESRD with hemodialysis M/W/F from 6:15 to 11:00, anemia, "mini strokes" x2, AVANI with CPap use, occasional low back pain/disc disease, gout, hypothyroid Last Myocardial Infarction Date:: 04/19/23 History of Any Multi-Drug Resistant Organisms: MRSA Date of last positivie culture/infection: 12/10/21 MDRO Source:: Finger-Right 5th Past Surgical History: Adenoidectomy, Bariatric Surgery, Cholecystectomy, Heart Catheterization, Heart Catheterization With Stent, Orthopedic Surgery, Tonsillectomy Additional Past Surgical History / Comment(s): 10/22/20 PCI with stents x2, lap banding, FX of right ankle repair pins / plate, fistual lt arm jul 2018, lt shoulder sx (d/t separation), colonoscopies, bilateral cataract removals/lens implants. LIF surgery 08/11/21 R LEG stacey placed January 2023 04/19/23 3 stents Past Anesthesia/Blood Transfusion Reactions: Motion Sickness Additional Past Anesthesia/Blood Transfusion Reaction / Comment(s): CLAUSTERPHOBIA Date of Last Stent Placement:: 04/19/23 Past Psychological History: Anxiety Smoking Status: Former smoker Past Alcohol Use History: None Reported Past Drug Use History: None Reported ALLERGIES: as per EMR. CHEMICAL DEPENDENCY HISTORY: as per HPI. FAMILY PSYCHIATRIC/SUBSTANCE USE HISTORY: Denies SOCIAL HISTORY: Patient was born and raised in [place]. Claims that he completed high school. 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 He has 3 kids, collects Social Security. Denies any legal history. MENTAL STATUS EXAM: General Appearance: Patient appears to be overweight, stated age is alert, attempts to be cooperative. Patient appears to have fair hygiene and grooming wearing hospital gown with fair eye contact. Behavior: Patient is calmly lying in bed without any agitated behavior. Attempts to cooperate. Speech: Patient's speech is fluent and nonpressured. Mood/Affect: Patient reports their mood is "depressed a bit", affect is congruent and constricted Suicidality/Homicidality: Patient denies having any suicidal or homicidal ideation intent or plan. Perceptions: Patient denies any visual hallucinations and denies any auditory hallucinations Though content/process: There is no evidence of any delusional thought content and thought process is linear and goal-directed. future oriented. Memory and concentration: AOX3, grossly intact for the purposes of this session. Can spell "WORLD" backwards Judgment and insight: fair IMPRESSIONS: Major depressive disorder mild PLAN: -At this time patient DOES NOT meet criteria for inpatient psychiatric admission. -Would recommend the following medication changes/additions: Patient was agreeable to increase Prozac to a total of 60 mg daily for mood/anxiety. Patient is also agreeable to try a low-dose of trazodone 25 mg nightly for insomnia/mood, this can be increased to 50 mg if patient is still not sleeping through the night, this can be monitored over the weekend and adjusted as needed. -beet worker to provide patient with outpatient mental health/psychiatry resources for appropriate follow up upon discharge -Communicated plan to patient's nurse -Psychiatry will sign off at this time -Please contact with any questions. 04/13/24 14:14
--- NOTE | 2024-04-13 15:18 | P.PN ---
Subjective Progress Note Date: 04/13/24 Patient is 63-year-old male came to emergency department after a fall appears to be mechanical fall hit on the right side of the head CT of the head is negative denies any loss of consciousness patient is on Eliquis and Plavix. Patient does have history of atrial fibrillation. Patient had any syncopal episode but although his blood pressure is low he is receiving midodrine and IV fluids at this time. Patient is insisting to secure dialysis patient on hemodialysis Tuesday and Tuesday schedule supposed to get hemodialysis today. Patient is also complaining of some lightheadedness also any atrial fibrillation mildly increased heart rate at 100 usually takes low-dose of metoprolol 12.5. Patient does not have any fever chills does have leukocytosis patient had a recent toe amputation month of January, after which patient ended up having a nonhealing wound in the right foot great toe area, patient has increased discharge which is most foul-smelling for last few days from the toe and does have leukocytosis of 25,000, vascular surgery wound care infectious disease were consulted and patient was started on Zosyn and vancomycin. Patient has mildly elevated troponins of 0.040 and 0.035 patient denies any chest pain. Patient is also hypomagnesemic. Patient has increased swelling in the right leg more than the left leg which has been there since his toe amputation. 04/13/2024 Patient is evaluated today in follow-up in the intensive care unit. Patient is currently undergoing hemodialysis which was ended early secondary to hypotensive. Patient is continued on midodrine as well as norepinephrine support. Blood cultures are found to be positive so far showing gram-positive patient remains on IV Zosyn and IV vancomycin with ID following closely. Source is likely this recent toe amputation site. His heart rate is also elevated up in the 110s in atrial fibrillation. Review of Systems Constitutional: Denied any fatigue denied any fever. Cardio vascular: denied any chest pain, palpitations Gastrointestinal: denied any nausea, vomiting, diarrhea Pulmonary: Denied any shortness of breath cough Neurologic denied any new focal deficits All inpatient medications were reviewed and appropriate changes in these medications as dictated in the interval history and assessment and plan. PHYSICAL EXAMINATION: GENERAL: The patient is alert and oriented x3, not in any acute distress. Well developed, well nourished. HEENT: Pupils are round and equally reacting to light. EOMI. No scleral icterus. No conjunctival pallor. Normocephalic, atraumatic. No pharyngeal erythema. No thyromegaly. CARDIOVASCULAR: S1 and S2 present. No murmurs, rubs, or gallops. Tachycardic irregularly irregular rhythm PULMONARY: Chest is clear to auscultation, no wheezing or crackles. ABDOMEN: Soft, nontender, nondistended, normoactive bowel sounds. No palpable organomegaly. MUSCULOSKELETAL: No joint swelling or deformity. EXTREMITIES: No cyanosis, clubbing, NEUROLOGICAL: Gross neurological examination did not reveal any focal deficits. SKIN: Foul-smelling discharge from the right amputated toe stump area increased swelling in the right leg which has been chronic Assessment and plan -Right foot infection at recent right great toe amputation site with foul smelling discharge will obtain wound cultures and deep cultures with debridement, patient will continue on Zosyn and vancomycin. -Septic shock from above requiring levophed and ICU care. -Leukocytosis due to assessment #1 -Gram positive bacteremia source is the toe amputation site. -End-stage renal disease hemodialysis, nephrology is following the patient -Hypomagnesemia and hypophosphatasia patient is on phosphate binders; will be given IV magnesium today and repeat blood work in the AM. -Hyponatremia secondary to end-stage renal disease -Peripheral vascular disease -Coronary artery disease -Atrial fibrillation chronic patient is mildly rapid ventricular rate may be contributing to his dizziness and shortness of breath -Type 2 diabetes mellitus with diabetic neuropathy patient will be resumed on home regimen and continue accuchecks ACHS and sliding scale insulin. -Hyperlipidemia -Sleep apnea uses CPAP machine at home -Hypothyroidism -History of prostate cancer with radiation therapy in the past DVT prophylaxis: Patient is on Eliquis which will be resumed and continued GI prophylaxis Full Code The impression and plan of care has been dictated by Ingrid Schneider Nurse Practitioner as directed. Dr. Mil MD I have performed a history and physical examination and medical decision making of this patient, discussed the same with the dictator, and agree with the dictators assessment and plan as written, documented as a scribe. Based on total visit time, I have performed more than 50% of this visit.ul Objective - Vital Signs Vital signs: Vital Signs Temp 98.2 F 04/13/24 12:00 Pulse 108 H 04/13/24 13:30 Resp 18 04/13/24 13:30 BP 103/70 04/13/24 13:30 Pulse Ox 100 04/13/24 13:30 FiO2 Intake & Output 04/12/24 04/13/24 04/13/24 18:59 06:59 18:59 Intake Total 500 1580.093 165.838 Output Total 0 0 0 Balance 500 1580.093 165.838 Weight 123.831 kg 123.831 kg Intake: Intake, IV Titration 500 1136.093 165.838 Amount Norepinephrine 4 mg In 36.093 165.838 Sodium Chloride 0.9% 250 ml @ 0.03 MCG/KG/MIN 14. 154 mls/hr IV .[id number] [facility] Rx#:[id number] Piperacillin-Tazobactam 3 100 .375 gm In Sodium Chloride 0.9% 100 ml @ 25 mls/hr IVPB Q12H [facility] Rx# :[id number] Sodium Chloride 0.9% 1, 1000 000 ml @ 999 mls/hr IV . Q1H1M [facility] Rx#:[id number] Sodium Chloride 0.9% 500 500 ml 500 ml @ 999 mls/hr IV .Q31M [facility] Rx#:[id number] Oral 444 Output: Urine 0 0 0 Other: Voiding Method Urinal - Labs CBC & Chem 7: 04/13/24 05:37 04/13/24 05:37 Labs: Abnormal Lab Results - Last 24 Hours (Table) 04/12/24 04/12/24 04/13/24 Range/Units 16:28 20:24 05:37 WBC (3.8-10.6) k/uL RBC (4.30-5.90) m/uL Hgb (13.0-17.5) gm/dL Hct (39.0-53.0) % MCV (80.0-100.0) fL Sodium (137-145) mmol/L Chloride (98-107) mmol/L BUN (9-20) mg/dL Creatinine (0.66-1.25) mg/dL Glucose (74-99) mg/dL POC Glucose (mg/dL) 245 H 205 H (70-110) mg/dL Hemoglobin A1c 7.5 H (<=6.0) % Calcium (8.4-10.2) mg/dL Magnesium (1.6-2.3) mg/dL 04/13/24 04/13/24 04/13/24 Range/Units 05:37 05:37 05:53 WBC 25.8 H (3.8-10.6) k/uL RBC 3.38 L (4.30-5.90) m/uL Hgb 10.6 L (13.0-17.5) gm/dL Hct 34.1 L (39.0-53.0) % MCV 100.8 H (80.0-100.0) fL Sodium 128 L (137-145) mmol/L Chloride 91 L (98-107) mmol/L BUN 56 H (9-20) mg/dL Creatinine 5.21 H (0.66-1.25) mg/dL Glucose 141 H (74-99) mg/dL POC Glucose (mg/dL) 170 H (70-110) mg/dL Hemoglobin A1c (<=6.0) % Calcium 8.2 L (8.4-10.2) mg/dL Magnesium 1.4 L (1.6-2.3) mg/dL 04/13/24 Range/Units 11:37 WBC (3.8-10.6) k/uL RBC (4.30-5.90) m/uL Hgb (13.0-17.5) gm/dL Hct (39.0-53.0) % MCV (80.0-100.0) fL Sodium (137-145) mmol/L Chloride (98-107) mmol/L BUN (9-20) mg/dL Creatinine (0.66-1.25) mg/dL Glucose (74-99) mg/dL POC Glucose (mg/dL) 117 H (70-110) mg/dL Hemoglobin A1c (<=6.0) % Calcium (8.4-10.2) mg/dL Magnesium (1.6-2.3) mg/dL Microbiology - Last 24 Hours (Table) 04/12/24 08:28 Gram Stain - Preliminary Foot - Right Wound Culture - Preliminary Escherichia coli Staphylococcus aureus 04/12/24 08:28 Blood Culture Gram Stain - Preliminary Blood Blood Culture - Preliminary Molecular ID 04/12/24 08:28 Blood Culture Gram Stain - Preliminary Blood Assessment and Plan Time with Patient: Less than 30
[2024-04-13] MEDS: FLUoxetine HCL 20 MG CAP PO STA (16:16)
--- NOTE | 2024-04-13 16:47 | P.PN ---
Subjective Progress Note Date: 04/13/24 Principal diagnosis: Reason for follow-up is right diabetic foot infection and bacteremia Patient is a 63-year-old male with a past medical history significant for diabetes mellitus hypertension heart failure coronary disease history of end-stage renal disease on dialysis recently did have a right big toe potation for a diabetic foot infection and gangrene now presented to hospital with a fall worsening right foot infection and sepsis. On today's evaluation that is 04/13/2024,the patient denies any fever or any chills, patient is breathing comfortably on 2 L current oxygen, the patient denies chest pain shortness of breath and no significant cough, patient denies abdominal pain, no nausea vomiting or diarrhea. Patient still requiring pressor support as reported by the nursing staff. Patient white count is still elevated 25.8, creatinine is 5.21 blood culture not showing Staph aureus Objective - Vital Signs Vital signs: Vital Signs Temp 98.5 F 04/13/24 16:00 Pulse 111 H 04/13/24 16:15 Resp 21 04/13/24 16:15 BP 100/63 04/13/24 16:15 Pulse Ox 97 04/13/24 16:15 FiO2 Intake & Output 04/12/24 04/13/24 04/13/24 18:59 06:59 18:59 Intake Total 500 1580.093 974.723 Output Total 0 0 0 Balance 500 1580.093 974.723 Weight 123.831 kg 123.831 kg Intake: IV 800 Magnesium Sulfate-D5w Pmx 200 1 gm In Dextrose/Water 1 100ml.bag @ 100 mls/hr IVPB Q1H [facility] Rx#: [id number] Piperacillin-Tazobactam 3 100 .375 gm In Sodium Chloride 0.9% 100 ml @ 25 mls/hr IVPB Q12H [facility] Rx# :[id number] Vancomycin 2,000 mg In 500 Sodium Chloride 0.9% 500 ml 500 ml @ 167 mls/hr IVPB [facility] Rx#: [id number] Intake, IV Titration 500 1136.093 174.723 Amount Norepinephrine 4 mg In 36.093 174.723 Sodium Chloride 0.9% 250 ml @ 0.03 MCG/KG/MIN 14. 154 mls/hr IV .[id number] [facility] Rx#:[id number] Piperacillin-Tazobactam 3 100 .375 gm In Sodium Chloride 0.9% 100 ml @ 25 mls/hr IVPB Q12H [facility] Rx# :[id number] Sodium Chloride 0.9% 1, 1000 000 ml @ 999 mls/hr IV . Q1H1M [facility] Rx#:[id number] Sodium Chloride 0.9% 500 500 ml 500 ml @ 999 mls/hr IV .Q31M [facility] Rx#:[id number] Oral 444 Output: Urine 0 0 0 Other: Voiding Method Urinal # Bowel Movements 1 - Exam GENERAL DESCRIPTION: Middle-age male lying in bed in no distress RESPIRATORY SYSTEM: Unlabored breathing , decreased breath sounds at bases HEART: S1 S2 regular rate and rhythm , ABDOMEN: Soft , no tenderness EXTREMITIES: Right foot with extensive wound at the big toe potation site with associated swelling - Labs CBC & Chem 7: 04/13/24 05:37 04/13/24 05:37 Labs: Abnormal Lab Results - Last 24 Hours (Table) 04/12/24 04/13/24 04/13/24 Range/Units 20:24 05:37 05:37 WBC 25.8 H (3.8-10.6) k/uL RBC 3.38 L (4.30-5.90) m/uL Hgb 10.6 L (13.0-17.5) gm/dL Hct 34.1 L (39.0-53.0) % MCV 100.8 H (80.0-100.0) fL Sodium (137-145) mmol/L Chloride (98-107) mmol/L BUN (9-20) mg/dL Creatinine (0.66-1.25) mg/dL Glucose (74-99) mg/dL POC Glucose (mg/dL) 205 H (70-110) mg/dL Hemoglobin A1c 7.5 H (<=6.0) % Calcium (8.4-10.2) mg/dL Magnesium (1.6-2.3) mg/dL 04/13/24 04/13/24 04/13/24 Range/Units 05:37 05:53 11:37 WBC (3.8-10.6) k/uL RBC (4.30-5.90) m/uL Hgb (13.0-17.5) gm/dL Hct (39.0-53.0) % MCV (80.0-100.0) fL Sodium 128 L (137-145) mmol/L Chloride 91 L (98-107) mmol/L BUN 56 H (9-20) mg/dL Creatinine 5.21 H (0.66-1.25) mg/dL Glucose 141 H (74-99) mg/dL POC Glucose (mg/dL) 170 H 117 H (70-110) mg/dL Hemoglobin A1c (<=6.0) % Calcium 8.2 L (8.4-10.2) mg/dL Magnesium 1.4 L (1.6-2.3) mg/dL Microbiology - Last 24 Hours (Table) 04/12/24 08:28 Gram Stain - Preliminary Foot - Right Wound Culture - Preliminary Escherichia coli Staphylococcus aureus 04/12/24 08:28 Blood Culture Gram Stain - Preliminary Blood Blood Culture - Preliminary Molecular ID 04/12/24 08:28 Blood Culture Gram Stain - Preliminary Blood Assessment and Plan (1) Diabetic foot infection Current Visit: Yes Status: Acute Code(s): E11.628 - TYPE 2 DIABETES MELLITUS WITH OTHER SKIN COMPLICATIONS; L08.9 - LOCAL INFECTION OF THE SKIN AND SUBCUTANEOUS TISSUE, UNSP SNOMED Code(s): 222878261 (2) Gangrene of right foot Current Visit: Yes Status: Acute Code(s): I96 - GANGRENE, NOT ELSEWHERE CLASSIFIED SNOMED Code(s): 56724541231363011 (3) Sepsis Current Visit: Yes Status: Acute Code(s): A41.9 - SEPSIS, UNSPECIFIED ORGANISM SNOMED Code(s): 02997055 (4) Type 2 diabetes mellitus with foot ulcer Current Visit: No Status: Acute Code(s): E11.621 - TYPE 2 DIABETES MELLITUS WITH FOOT ULCER; L97.509 - NON-PRESSURE CHRONIC ULCER OTH PRT UNSP FOOT W UNSP SEVERITY SNOMED Code(s): 0436778807201 (5) Bacteremia Current Visit: Yes Status: Acute Code(s): R78.81 - BACTEREMIA SNOMED Code(s): 5950249 Plan: 1patient presented to hospital with sepsis in this patient who did have significant elevated white count he is also hypotensive or tachycardic bradycardia. Sources right diabetic foot infection in this patient who did have a chronic nonhealing wound. Rotation of the right big toe and also with a necrotic wound on the right foot lateral border previous culture positive for MSSA however will need to cover for resistant gram-positive as well as gram- negative pathogen pending workup outpatient 2-patient benefit from surgical debridement and deep culture 3-patient blood cultures Are positive with Staph aureus sensitivities pending blood culture repeated document clearance of bacteremia 4we will continue the Zosyn and vancomycin at this point pending finalization of the culture Dictation was produced using [employer] dictation software. please excuse any grammatical, word or spelling errors. Time with Patient: Less than 30
[2024-04-13 17:43] LABS: Glucose,Whole Blood 183 mg/dL (70-110)
[2024-04-13 20:39] LABS: Glucose,Whole Blood 169 mg/dL (70-110)
[2024-04-13] MEDS: traZODone HCL 50 MG TAB PO SCH (21:22)
[2024-04-14 06:01] LABS: Glucose,Whole Blood 236 mg/dL (70-110)
[2024-04-14 06:34] LABS: Basophils # (A) 0.1 k/uL (0-0.2); Basophils % (A) 0 %; Eosinophils # (A) 0.1 k/uL (0-0.7); Eosinophils % (A) 1 %; HCT 35.9 % (39.0-53.0); HGB 10.4 gm/dL (13.0-17.5); Hypochromasia Marked; Lymphocytes # (A) 0.5 k/uL (1.0-4.8); Lymphocytes % (A) 3 %; MCH 30.4 pg (25.0-35.0); MCV 104.9 fL (80.0-100.0); Macrocytosis Moderate; Monocytes # (A) 1.4 k/uL (0-1.0); Monocytes % (A) 6 %; Neutrophils # (A) 19.6 k/uL (1.3-7.7); Neutrophils % (A) 89 %; Platelet Count 263 k/uL (150-450); RBC 3.42 m/uL (4.30-5.90)
[2024-04-14 06:52] LABS: ALT 108 U/L (4-49); AST 53 U/L (17-59); African American GFR (CKD) 16 (>60 ml/min/1.73 sqM); Albumin 2.7 g/dL (3.5-5.0); Alkaline Phosphatase 227 U/L (38-126); Anion Gap 16 mmol/L; Blood Urea Nitrogen 49 mg/dL (9-20); Calcium 8.3 mg/dL (8.4-10.2); Carbon Dioxide 19 mmol/L (22-30); Chloride 93 mmol/L (98-107); Glucose 182 mg/dL (74-99); Magnesium 1.7 mg/dL (1.6-2.3); Non-African American GFR(CKD) 14 (>60 ml/min/1.73 sqM); Potassium 4.5 mmol/L (3.5-5.1); Sodium 128 mmol/L (137-145); Total Bilirubin 1.4 mg/dL (0.2-1.3); Total Protein 5.6 g/dL (6.3-8.2)
[2024-04-14] MEDS: FLUoxetine HCL 20 MG CAP PO SCH (08:30)
[2024-04-14] MEDS: MAGNESIUM SULFATE-D5W PMX 1 GM in DEXTROSE/WATER 1 100ML.BAG IVPB ONE (08:31)
--- NOTE | 2024-04-14 10:59 | P.PN ---
Subjective Progress Note Date: 04/14/24 Principal diagnosis: Acute sepsis, bacteremia, and septic shock This is a pleasant 63-year-old male patient with a known history of coronary artery disease with previous stent placement to the LAD, congestive heart failure, diabetes mellitus, hypertension, obstructive sleep apnea, CVA, end- stage renal disease on dialysis Tuesday. He also has peripheral vascular disease with multiple amputations of his fingers. He also had an amputation of his right great toe that has become infected and gangrenous. He has been following with Dr. Levy. Presented here to the emergency room early this morning after sustaining a fall while getting up from a chair and hit the right side of his head on a TV table. He is on both Eliquis and Plavix. He denied any loss of consciousness. CT scan of the head revealed no acute intracranial process. Cervical spine revealed no evidence of fracture. While here in the hospital he was found to be hypotensive. He was to have dialysis today. X-ray reveals some mild fluid volume overload. X-ray of the right foot revealed no acute fracture or dislocation. White count 25.1. Hemoglobin 10.0. Platelets 226. INR 1.5. Sodium 128. Potassium 5.0. Bicarb 25. BUN 47. Creatinine 4.89. Glucose 229. AST 148. ALT 163. Troponin 0.039, 0.035. proBNP 192,000. Viral screen negative. He is seen today in consultation in the emergency department. He is currently sitting up in chair in a chair. Awake and alert in no acute distress. He is a bit lightheaded. His pressures have been as low as 60 systolic. Most recent blood pressure 90/53 with a mean of 65. Maintaining good O2 saturations up to 100% on 2 L/min per nasal cannula. He is afebrile. He has been initiated on vancomycin and Zosyn. Was seen today on 04/13/2024, remains in the ICU, I admitted this patient yesterday from the ER to the ICU when he presented with severe sepsis with infection involving the amputation site of right big toe, patient was hypotensive requiring multiple boluses of saline, nonetheless he continues to have low blood pressure and he required placement on norepinephrine. Presently on 0.06 mcg/kg/min. His blood cultures came back positive for what seems to be Staph aureus infection, possibly MRSA, in the meantime the patient remains on vancomycin and Zosyn. In addition the patient will require hemodialysis this m chandler,, patient has been on hemodialysis for the last 5-1/2 years. Pulmonary díaz the patient does not seem to be in distress, he continues to have leukocytosis with WBC count of 25.8 hemoglobin 10.6. His electrolytes showed low sodium of 128 potassium 5 BUN is 56 creatinine 5.21. His bicarb is 22 and he has anion gap of 15 related to his sepsis and related to his chronic renal failure. Lactic acid on admission was 3.8, and today it is 1.90 magnesium is low, being addressed accordingly. Regarding his foot, patient was seen by vascular surgery, and the decision is yet to be made regarding below-knee amputation or above-knee amputation. This is yet to be decided upon patient was evaluated today on 04/14/2024, patient remains in the ICU, remains hemodynamically unstable he is still requiring norepinephrine at 0.17 mcg/kg/min. Remains on IV fluid at KVO patient is a dialysis patient scheduled to have repeat hemodialysis today he was dialyzed yesterday and had -586 mL. Patient is being treated for bacteremia with presumptive MRSA/using vancomycin patient is also on Zosyn as his foot cultures showed Staph aureus and E. coli. Patient was seen by vascular surgery apparently today, and the vascular surgeon is considering transferring the patient to [facility] where he had his previous surgery done by another surgeon down there. Patient is being considered for below-knee amputation or above-knee amputation and that is yet to be decided upon. In the meantime the patient is on antibiotics, he is feeling better, denies any shortness of breath or cough or wheezing, denies any chest pain, blood pressure is marginal. WBC count is down to 22 hemoglobin is 10.4 sodium is 128 BUN 49 creatinine 4.19 Objective - Vital Signs Vital signs: Vital Signs Temp 98.7 F 04/14/24 04:00 Pulse 98 04/14/24 09:00 Resp 24 04/14/24 09:00 BP 90/59 04/14/24 09:00 Pulse Ox 98 04/14/24 09:00 FiO2 Intake & Output 04/13/24 04/14/24 04/14/24 18:59 06:59 18:59 Intake Total 2333.254 1435.474 761.484 Output Total 1672 0 0 Balance 814.892 7450.474 761.484 Weight 123.831 kg 131 kg Intake: IV 1080 370 270 .9 20cc/hr 180 180 40 Invasive Line 1 40 30 10 Invasive Line 2 40 30 10 Invasive Line 4 20 30 10 Magnesium Sulfate-D5w Pmx 200 100 1 gm In Dextrose/Water 1 100ml.bag @ 100 mls/hr IVPB Q1H [facility] Rx#: [id number] Piperacillin-Tazobactam 3 100 100 100 .375 gm In Sodium Chloride 0.9% 100 ml @ 25 mls/hr IVPB Q12H [facility] Rx# :[id number] Vancomycin 2,000 mg In 500 Sodium Chloride 0.9% 500 ml 500 ml @ 167 mls/hr IVPB ONCE [facility] Rx#: [id number] Intake, IV Titration 513.254 385.474 251.484 Amount Norepinephrine 4 mg In 513.254 385.474 251.484 Sodium Chloride 0.9% 250 ml @ 0.03 MCG/KG/MIN 14. 154 mls/hr IV .[id number] [facility] Rx#:[id number] Oral 240 680 240 Hemodialysis 500 Output: Urine 0 0 0 Hemodialysis 1086 Hemodialysis Net Amount 586 Other: # Bowel Movements 0 - Exam GENERAL EXAM: Revealed a 63-year-old white male, on 2 L nasal cannula, O2 sat is 98% HEAD: Normocephalic. EYES: Normal reaction of pupils, equal size. NOSE: Clear with pink turbinates. THROAT: No erythema or exudates. NECK: No masses, no JVD. CHEST: No chest wall deformity. LUNGS: Clear bilaterally no crackles rhonchi or wheezes. CVS: S1 and S2 normal with no audible murmur, irregular rhythm. ABDOMEN: Obese, no hepatosplenomegaly, normal bowel sounds, no guarding or rigidity. SKIN: No rashes. Multiple wounds of the left upper extremity secondary to dog bites. CENTRAL NERVOUS SYSTEM: Alert and oriented x 3 no gross focal deficit EXTREMITIES: Multiple amputations of several fingers bilaterally. Open wound and gangrenous skin status post right great toe amputation. - Labs CBC & Chem 7: 04/14/24 05:59 04/14/24 05:59 Labs: Abnormal Lab Results - Last 24 Hours (Table) 04/13/24 04/13/24 04/13/24 Range/Units 11:37 17:42 20:37 WBC (3.8-10.6) k/uL RBC (4.30-5.90) m/uL Hgb (13.0-17.5) gm/dL Hct (39.0-53.0) % MCV (80.0-100.0) fL MCHC (31.0-37.0) g/dL Neutrophils # (1.3-7.7) k/uL Lymphocytes # (1.0-4.8) k/uL Monocytes # (0-1.0) k/uL Sodium (137-145) mmol/L Chloride (98-107) mmol/L Carbon Dioxide (22-30) mmol/L BUN (9-20) mg/dL Creatinine (0.66-1.25) mg/dL Glucose (74-99) mg/dL POC Glucose (mg/dL) 117 H 183 H 169 H (70-110) mg/dL Calcium (8.4-10.2) mg/dL Total Bilirubin (0.2-1.3) mg/dL ALT (4-49) U/L Alkaline Phosphatase (38-126) U/L Total Protein (6.3-8.2) g/dL Albumin (3.5-5.0) g/dL 04/14/24 04/14/24 04/14/24 Range/Units 05:59 05:59 06:00 WBC 22.0 H (3.8-10.6) k/uL RBC 3.42 L (4.30-5.90) m/uL Hgb 10.4 L (13.0-17.5) gm/dL Hct 35.9 L (39.0-53.0) % MCV 104.9 H (80.0-100.0) fL MCHC 29.0 L (31.0-37.0) g/dL Neutrophils # 19.6 H (1.3-7.7) k/uL Lymphocytes # 0.5 L (1.0-4.8) k/uL Monocytes # 1.4 H (0-1.0) k/uL Sodium 128 L (137-145) mmol/L Chloride 93 L (98-107) mmol/L Carbon Dioxide 19 L (22-30) mmol/L BUN 49 H (9-20) mg/dL Creatinine 4.19 H (0.66-1.25) mg/dL Glucose 182 H (74-99) mg/dL POC Glucose (mg/dL) 236 H (70-110) mg/dL Calcium 8.3 L (8.4-10.2) mg/dL Total Bilirubin 1.4 H (0.2-1.3) mg/dL ALT 108 H (4-49) U/L Alkaline Phosphatase 227 H (38-126) U/L Total Protein 5.6 L (6.3-8.2) g/dL Albumin 2.7 L (3.5-5.0) g/dL Microbiology - Last 24 Hours (Table) 04/12/24 08:28 Gram Stain - Preliminary Foot - Right Wound Culture - Preliminary Escherichia coli Staphylococcus aureus 04/12/24 08:28 Blood Culture Gram Stain - Preliminary Blood Blood Culture - Preliminary Staphylococcus aureus 04/12/24 08:28 Blood Culture Gram Stain - Preliminary Blood Blood Culture - Preliminary Staphylococcus aureus Molecular ID Assessment and Plan Assessment: Impression: Acute sepsis and septic shock with gram-positive bacteremia, most likely MRSA unless proven otherwise Hypotension secondary to above improving, norepinephrine requirement is becoming less since admission nonetheless he remains on norepinephrine Status post fall without any specific injury End-stage renal disease, on hemodialysis Underlying coronary artery disease and previous stent placement to LAD and multiple vessel stenting Chronic atrial fibrillation, anticoagulated with Eliquis Peripheral vessel occlusive disease with multiple amputations of multiple fingers both hands, and right big toe amputation Severe diabetic neuropathy and diabetic retinopathy Ex-smoker Benign essential hypertension Obstructive sleep apnea syndrome not on CPAP History of CVA Dyslipidemia History of hypothyroidism Recommendation: Continue to monitor in the ICU as the patient is still requiring pressors/norepinephrine, this is being titrated down, his mean arterial pressure was 80 today on norepinephrine Continue hemodialysis, and cautious monitoring of I's and O's Continue antibiotics for now including vancomycin and Zosyn and adjust based on final cultures Continue [facility] Vascular surgery is considering transferring the patient to [facility] Monitor and adjust electrolytes accordingly GI and DVT prophylaxis Will continue to monitor closely in the ICU Prognosis is guarded. Time with Patient: Less than 30
--- NOTE | 2024-04-14 11:06 | P.PN ---
Subjective patient is seen for follow-up for end-stage renal disease. patient did not tolerate dialysis well yesterday . heart rate had increased to 140s. scheduled for hemodialysis again today. Blood cultures are positive for gram-positive cocci. Maintained on vancomycin. Being followed by vascular surgery for possible need for BKA versus AKA. Objective - Vital Signs Vital signs: Vital Signs Temp 98.7 F 04/14/24 04:00 Pulse 98 04/14/24 09:00 Resp 24 04/14/24 09:00 BP 90/59 04/14/24 09:00 Pulse Ox 98 04/14/24 09:00 FiO2 Intake & Output 04/13/24 04/14/24 04/14/24 18:59 06:59 18:59 Intake Total 2333.254 1435.474 761.484 Output Total 1672 0 0 Balance 480.471 0403.474 761.484 Weight 123.831 kg 131 kg Intake: IV 1080 370 270 .9 20cc/hr 180 180 40 Invasive Line 1 40 30 10 Invasive Line 2 40 30 10 Invasive Line 4 20 30 10 Magnesium Sulfate-D5w Pmx 200 100 1 gm In Dextrose/Water 1 100ml.bag @ 100 mls/hr IVPB Q1H [facility] Rx#: [id number] Piperacillin-Tazobactam 3 100 100 100 .375 gm In Sodium Chloride 0.9% 100 ml @ 25 mls/hr IVPB Q12H [facility] Rx# :[id number] Vancomycin 2,000 mg In 500 Sodium Chloride 0.9% 500 ml 500 ml @ 167 mls/hr IVPB ONCE ONE Rx#: [id number] Intake, IV Titration 513.254 385.474 251.484 Amount Norepinephrine 4 mg In 513.254 385.474 251.484 Sodium Chloride 0.9% 250 ml @ 0.03 MCG/KG/MIN 14. 154 mls/hr IV .[id number] [facility] Rx#:[id number] Oral 240 680 240 Hemodialysis 500 Output: Urine 0 0 0 Hemodialysis 1086 Hemodialysis Net Amount 586 Other: # Bowel Movements 0 - Exam Patient is awake, comfortable, no acute distress. Alert oriented x 3. Examination of the heart S1 and S2 Examination of the lungs bilateral breath sounds are heard Abdomen is soft obese Examination of lower extremities shows 1+ edema. Right foot is dressed. 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 [employer] exam grossly intact - Labs CBC & Chem 7: 04/14/24 05:59 04/14/24 05:59 Labs: Abnormal Lab Results - Last 24 Hours (Table) 04/13/24 04/13/24 04/13/24 Range/Units 11:37 17:42 20:37 WBC (3.8-10.6) k/uL RBC (4.30-5.90) m/uL Hgb (13.0-17.5) gm/dL Hct (39.0-53.0) % MCV (80.0-100.0) fL MCHC (31.0-37.0) g/dL Neutrophils # (1.3-7.7) k/uL Lymphocytes # (1.0-4.8) k/uL Monocytes # (0-1.0) k/uL Sodium (137-145) mmol/L Chloride (98-107) mmol/L Carbon Dioxide (22-30) mmol/L BUN (9-20) mg/dL Creatinine (0.66-1.25) mg/dL Glucose (74-99) mg/dL POC Glucose (mg/dL) 117 H 183 H 169 H (70-110) mg/dL Calcium (8.4-10.2) mg/dL Total Bilirubin (0.2-1.3) mg/dL ALT (4-49) U/L Alkaline Phosphatase (38-126) U/L Total Protein (6.3-8.2) g/dL Albumin (3.5-5.0) g/dL 04/14/24 04/14/24 04/14/24 Range/Units 05:59 05:59 06:00 WBC 22.0 H (3.8-10.6) k/uL RBC 3.42 L (4.30-5.90) m/uL Hgb 10.4 L (13.0-17.5) gm/dL Hct 35.9 L (39.0-53.0) % MCV 104.9 H (80.0-100.0) fL MCHC 29.0 L (31.0-37.0) g/dL Neutrophils # 19.6 H (1.3-7.7) k/uL Lymphocytes # 0.5 L (1.0-4.8) k/uL Monocytes # 1.4 H (0-1.0) k/uL Sodium 128 L (137-145) mmol/L Chloride 93 L (98-107) mmol/L Carbon Dioxide 19 L (22-30) mmol/L BUN 49 H (9-20) mg/dL Creatinine 4.19 H (0.66-1.25) mg/dL Glucose 182 H (74-99) mg/dL POC Glucose (mg/dL) 236 H (70-110) mg/dL Calcium 8.3 L (8.4-10.2) mg/dL Total Bilirubin 1.4 H (0.2-1.3) mg/dL ALT 108 H (4-49) U/L Alkaline Phosphatase 227 H (38-126) U/L Total Protein 5.6 L (6.3-8.2) g/dL Albumin 2.7 L (3.5-5.0) g/dL Microbiology - Last 24 Hours (Table) 04/12/24 08:28 Gram Stain - Preliminary Foot - Right Wound Culture - Preliminary Escherichia coli Staphylococcus aureus 04/12/24 08:28 Blood Culture Gram Stain - Preliminary Blood Blood Culture - Preliminary Staphylococcus aureus 04/12/24 08:28 Blood Culture Gram Stain - Preliminary Blood Blood Culture - Preliminary Staphylococcus aureus Molecular ID Assessment and Plan Assessment: 1. End-stage renal disease on hemodialysis on Tuesday schedule via left arm AV fistula. 2. Right foot wound status post right big toe amputation in January 2024 currently with chronic wound status post recent I&D and being followed at the wound clinic with Dr. Levy. Recently noticed to have increased drainage from the wound. Currently maintained on IV antibiotics and there is discussion of possible BKA versus AKA. 3. CKD mineral bone disorder 4. Coronary artery disease 5. Type 2 diabetes 6. Sepsis from gram-positive bacteremia from right foot wound infection. Maintained on vancomycin and Zosyn. Plan: Continue antibiotics. hemodialysis today and possibly repeat on 04/16/2024
[2024-04-14 11:39] LABS: Glucose,Whole Blood 235 mg/dL (70-110)
[2024-04-14] MEDS: INSULIN ASPART (NovoLOG) 100 UNIT/ML VIAL SQ SCH (13:13)
--- NOTE | 2024-04-14 15:03 | P.PN ---
Subjective Progress Note Date: 04/14/24 Patient is 63-year-old male came to emergency department after a fall appears to be mechanical fall hit on the right side of the head CT of the head is negative denies any loss of consciousness patient is on Eliquis and Plavix. Patient does have history of atrial fibrillation. Patient had any syncopal episode but although his blood pressure is low he is receiving midodrine and IV fluids at this time. Patient is insisting to secure dialysis patient on hemodialysis Tuesday and Tuesday schedule supposed to get hemodialysis today. Patient is also complaining of some lightheadedness also any atrial fibrillation mildly increased heart rate at 100 usually takes low-dose of metoprolol 12.5. Patient does not have any fever chills does have leukocytosis patient had a recent toe amputation month of January, after which patient ended up having a nonhealing wound in the right foot great toe area, patient has increased discharge which is most foul-smelling for last few days from the toe and does have leukocytosis of 25,000, vascular surgery wound care infectious disease were consulted and patient was started on Zosyn and vancomycin. Patient has mildly elevated troponins of 0.040 and 0.035 patient denies any chest pain. Patient is also hypomagnesemic. Patient has increased swelling in the right leg more than the left leg which has been there since his toe amputation. 04/13/2024 Patient is evaluated today in follow-up in the intensive care unit. Patient is currently undergoing hemodialysis which was ended early secondary to hypotensive. Patient is continued on midodrine as well as norepinephrine support. Blood cultures are found to be positive so far showing gram-positive patient remains on IV Zosyn and IV vancomycin with ID following closely. Source is likely this recent toe amputation site. His heart rate is also elevated up in the 110s in atrial fibrillation. 04/14/2024 Patient is eval today in follow-up in the intensive care unit. Patient continues on levophed for blood pressure support currently running in the 70-80s systolic. Patient is currently undergoing hemodialysis. Patient was eval by Dr. Levy regarding the wound to his right great toe amputation site recommending possible transfer to [facility] where his main orthopedic surgeon is as he does have a stacey and surgical implants in that right foot and ankle. Blood cultures positive for Staphylococcus aureus with wound culture showing E. coli and Staph aureus. IV vanco, IV zosyn. Review of Systems Constitutional: Denied any fatigue denied any fever. Cardio vascular: denied any chest pain, palpitations Gastrointestinal: denied any nausea, vomiting, diarrhea Pulmonary: Denied any shortness of breath cough Neurologic denied any new focal deficits All inpatient medications were reviewed and appropriate changes in these medications as dictated in the interval history and assessment and plan. PHYSICAL EXAMINATION: GENERAL: The patient is alert and oriented x3, not in any acute distress. Well developed, well nourished. HEENT: Pupils are round and equally reacting to light. EOMI. No scleral icterus. No conjunctival pallor. Normocephalic, atraumatic. No pharyngeal erythema. No thyromegaly. CARDIOVASCULAR: S1 and S2 present. No murmurs, rubs, or gallops. Tachycardic irregularly irregular rhythm PULMONARY: Chest is clear to auscultation, no wheezing or crackles. ABDOMEN: Soft, nontender, nondistended, normoactive bowel sounds. No palpable organomegaly. MUSCULOSKELETAL: No joint swelling or deformity. EXTREMITIES: No cyanosis, clubbing, NEUROLOGICAL: Gross neurological examination did not reveal any focal deficits. SKIN: Foul-smelling discharge from the right amputated toe stump area increased swelling in the right leg which has been chronic Assessment and plan -Right foot infection at recent right great toe amputation site with foul smelling discharge will obtain wound cultures and would benefit from deep cultures with debridement, patient will continue on Zosyn and vancomycin. -Septic shock from above requiring levophed and ICU care. -Leukocytosis due to assessment #1 -Gram positive bacteremia source is the toe amputation site. -End-stage renal disease hemodialysis, nephrology is following the patient -Hypomagnesemia and hypophosphatasia patient is on phosphate binders; will be given IV magnesium today and repeat blood work in the AM. -Hyponatremia secondary to end-stage renal disease -Peripheral vascular disease -Coronary artery disease -Atrial fibrillation chronic patient is mildly rapid ventricular rate may be contributing to his dizziness and shortness of breath -Type 2 diabetes mellitus with diabetic neuropathy patient will be resumed on home regimen and continue accuchecks ACHS and sliding scale insulin. -Hyperlipidemia -Sleep apnea uses CPAP machine at home -Hypothyroidism -History of prostate cancer with radiation therapy in the past DVT prophylaxis: Patient is on Eliquis which will be resumed and continued GI prophylaxis Full Code The impression and plan of care has been dictated by Ingrid Schneider, Nurse Practitioner as directed. Dr. Mil MD I have performed a history and physical examination and medical decision making of this patient, discussed the same with the dictator, and agree with the dictators assessment and plan as written, documented as a scribe. Based on total visit time, I have performed more than 50% of this visit.ul Objective - Vital Signs Vital signs: Vital Signs Temp 98.7 F 04/14/24 04:00 Pulse 105 H 04/14/24 07:00 Resp 21 04/14/24 07:00 BP 99/57 04/14/24 07:00 Pulse Ox 96 04/14/24 07:00 FiO2 Intake & Output 04/13/24 04/14/24 04/14/24 18:59 06:59 18:59 Intake Total 2333.254 1435.474 251.484 Output Total 1672 0 Balance 086.409 9602.474 251.484 Weight 123.831 kg 131 kg Intake: IV 1080 370 .9 20cc/hr 180 180 Invasive Line 1 40 30 Invasive Line 2 40 30 Invasive Line 4 20 30 Magnesium Sulfate-D5w Pmx 200 1 gm In Dextrose/Water 1 100ml.bag @ 100 mls/hr IVPB Q1H [facility] Rx#: [id number] Piperacillin-Tazobactam 3 100 100 .375 gm In Sodium Chloride 0.9% 100 ml @ 25 mls/hr IVPB Q12H [facility] Rx# :[id number] Vancomycin 2,000 mg In 500 Sodium Chloride 0.9% 500 ml 500 ml @ 167 mls/hr IVPB ONCE ONE Rx#: [id number] Intake, IV Titration 513.254 385.474 251.484 Amount Norepinephrine 4 mg In 513.254 385.474 251.484 Sodium Chloride 0.9% 250 ml @ 0.03 MCG/KG/MIN 14. 154 mls/hr IV .[id number] [facility] Rx#:[id number] Oral 240 680 Hemodialysis 500 Output: Urine 0 0 Hemodialysis 1086 Hemodialysis Net Amount 586 Other: # Bowel Movements 0 - Labs CBC & Chem 7: 04/14/24 05:59 04/14/24 05:59 Labs: Abnormal Lab Results - Last 24 Hours (Table) 04/13/24 04/13/24 04/13/24 Range/Units 05:37 11:37 17:42 WBC (3.8-10.6) k/uL RBC (4.30-5.90) m/uL Hgb (13.0-17.5) gm/dL Hct (39.0-53.0) % MCV (80.0-100.0) fL MCHC (31.0-37.0) g/dL Neutrophils # (1.3-7.7) k/uL Lymphocytes # (1.0-4.8) k/uL Monocytes # (0-1.0) k/uL Sodium (137-145) mmol/L Chloride (98-107) mmol/L Carbon Dioxide (22-30) mmol/L BUN (9-20) mg/dL Creatinine (0.66-1.25) mg/dL Glucose (74-99) mg/dL POC Glucose (mg/dL) 117 H 183 H (70-110) mg/dL Hemoglobin A1c 7.5 H (<=6.0) % Calcium (8.4-10.2) mg/dL Total Bilirubin (0.2-1.3) mg/dL ALT (4-49) U/L Alkaline Phosphatase (38-126) U/L Total Protein (6.3-8.2) g/dL Albumin (3.5-5.0) g/dL 04/13/24 04/14/24 04/14/24 Range/Units 20:37 05:59 05:59 WBC 22.0 H (3.8-10.6) k/uL RBC 3.42 L (4.30-5.90) m/uL Hgb 10.4 L (13.0-17.5) gm/dL Hct 35.9 L (39.0-53.0) % MCV 104.9 H (80.0-100.0) fL MCHC 29.0 L (31.0-37.0) g/dL Neutrophils # 19.6 H (1.3-7.7) k/uL Lymphocytes # 0.5 L (1.0-4.8) k/uL Monocytes # 1.4 H (0-1.0) k/uL Sodium 128 L (137-145) mmol/L Chloride 93 L (98-107) mmol/L Carbon Dioxide 19 L (22-30) mmol/L BUN 49 H (9-20) mg/dL Creatinine 4.19 H (0.66-1.25) mg/dL Glucose 182 H (74-99) mg/dL POC Glucose (mg/dL) 169 H (70-110) mg/dL Hemoglobin A1c (<=6.0) % Calcium 8.3 L (8.4-10.2) mg/dL Total Bilirubin 1.4 H (0.2-1.3) mg/dL ALT 108 H (4-49) U/L Alkaline Phosphatase 227 H (38-126) U/L Total Protein 5.6 L (6.3-8.2) g/dL Albumin 2.7 L (3.5-5.0) g/dL 04/14/24 Range/Units 06:00 WBC (3.8-10.6) k/uL RBC (4.30-5.90) m/uL Hgb (13.0-17.5) gm/dL Hct (39.0-53.0) % MCV (80.0-100.0) fL MCHC (31.0-37.0) g/dL Neutrophils # (1.3-7.7) k/uL Lymphocytes # (1.0-4.8) k/uL Monocytes # (0-1.0) k/uL Sodium (137-145) mmol/L Chloride (98-107) mmol/L Carbon Dioxide (22-30) mmol/L BUN (9-20) mg/dL Creatinine (0.66-1.25) mg/dL Glucose (74-99) mg/dL POC Glucose (mg/dL) 236 H (70-110) mg/dL Hemoglobin A1c (<=6.0) % Calcium (8.4-10.2) mg/dL Total Bilirubin (0.2-1.3) mg/dL ALT (4-49) U/L Alkaline Phosphatase (38-126) U/L Total Protein (6.3-8.2) g/dL Albumin (3.5-5.0) g/dL Microbiology - Last 24 Hours (Table) 04/12/24 08:28 Blood Culture Gram Stain - Preliminary Blood Blood Culture - Preliminary Staphylococcus aureus 04/12/24 08:28 Blood Culture Gram Stain - Preliminary Blood Blood Culture - Preliminary Staphylococcus aureus Molecular ID 04/12/24 08:28 Gram Stain - Preliminary Foot - Right Wound Culture - Preliminary Escherichia coli Staphylococcus aureus Assessment and Plan Time with Patient: Less than 30
--- NOTE | 2024-04-14 16:46 | P.PN ---
Subjective Progress Note Date: 04/14/24 Principal diagnosis: Reason for follow-up is right diabetic foot infection and bacteremia Patient is a 63-year-old male with a past medical history significant for diabetes mellitus hypertension heart failure coronary disease history of end-stage renal disease on dialysis recently did have a right big toe potation for a diabetic foot infection and gangrene now presented to hospital with a fall worsening right foot infection and sepsis. On today's evaluation that is 04/14/2024,the patient remains to be afebrile, patient is on 2 L nasal cannula supplemental oxygen and denies any shortness of breath no chest pain or cough.Patient denies having any nausea or vomiting, no abdominal pain and no diarrhea has been reported, denies any worsening pain to the right foot wound. Patient white count is down to 22,000, creatinine is 4.19 right foot culture is growing E. coli and MSSA Objective - Vital Signs Vital signs: Vital Signs Temp 98.5 F 04/14/24 15:25 Pulse 82 04/14/24 15:25 Resp 16 04/14/24 15:25 BP 95/62 04/14/24 15:25 Pulse Ox 100 04/14/24 15:15 FiO2 Intake & Output 04/13/24 04/14/24 04/14/24 18:59 06:59 18:59 Intake Total 2333.254 9896.839 5998.484 Output Total 1672 0 2150 Balance 535.957 0621.474 119.484 Weight 123.831 kg 131 kg Intake: IV 1080 370 420 .9 20cc/hr 180 180 160 Invasive Line 1 40 30 20 Invasive Line 2 40 30 20 Invasive Line 4 20 30 20 Magnesium Sulfate-D5w Pmx 200 100 1 gm In Dextrose/Water 1 100ml.bag @ 100 mls/hr IVPB Q1H [facility] Rx#: [id number] Piperacillin-Tazobactam 3 100 100 100 .375 gm In Sodium Chloride 0.9% 100 ml @ 25 mls/hr IVPB Q12H [facility] Rx# :[id number] Vancomycin 2,000 mg In 500 Sodium Chloride 0.9% 500 ml 500 ml @ 167 mls/hr IVPB ONCE ONE Rx#: [id number] Intake, IV Titration 513.254 385.474 759.484 Amount Norepinephrine 4 mg In 513.254 385.474 759.484 Sodium Chloride 0.9% 250 ml @ 0.03 MCG/KG/MIN 14. 154 mls/hr IV .[id number] [facility] Rx#:[id number] Oral 240 680 240 Hemodialysis 500 850 Output: Urine 0 0 0 Hemodialysis 1086 1500 Hemodialysis Net Amount [phone] Other: # Bowel Movements 0 - Exam GENERAL DESCRIPTION: Middle-age male lying in bed in no distress RESPIRATORY SYSTEM: Unlabored breathing , decreased breath sounds at bases HEART: S1 S2 regular rate and rhythm , ABDOMEN: Soft , no tenderness EXTREMITIES: Right foot wound is currently dressed - Labs CBC & Chem 7: 04/14/24 05:59 04/14/24 05:59 Labs: Abnormal Lab Results - Last 24 Hours (Table) 04/13/24 04/13/24 04/14/24 Range/Units 17:42 20:37 05:59 WBC (3.8-10.6) k/uL RBC (4.30-5.90) m/uL Hgb (13.0-17.5) gm/dL Hct (39.0-53.0) % MCV (80.0-100.0) fL MCHC (31.0-37.0) g/dL Neutrophils # (1.3-7.7) k/uL Lymphocytes # (1.0-4.8) k/uL Monocytes # (0-1.0) k/uL Sodium 128 L (137-145) mmol/L Chloride 93 L (98-107) mmol/L Carbon Dioxide 19 L (22-30) mmol/L BUN 49 H (9-20) mg/dL Creatinine 4.19 H (0.66-1.25) mg/dL Glucose 182 H (74-99) mg/dL POC Glucose (mg/dL) 183 H 169 H (70-110) mg/dL Calcium 8.3 L (8.4-10.2) mg/dL Total Bilirubin 1.4 H (0.2-1.3) mg/dL ALT 108 H (4-49) U/L Alkaline Phosphatase 227 H (38-126) U/L Total Protein 5.6 L (6.3-8.2) g/dL Albumin 2.7 L (3.5-5.0) g/dL 04/14/24 04/14/24 04/14/24 Range/Units 05:59 06:00 11:37 WBC 22.0 H (3.8-10.6) k/uL RBC 3.42 L (4.30-5.90) m/uL Hgb 10.4 L (13.0-17.5) gm/dL Hct 35.9 L (39.0-53.0) % MCV 104.9 H (80.0-100.0) fL MCHC 29.0 L (31.0-37.0) g/dL Neutrophils # 19.6 H (1.3-7.7) k/uL Lymphocytes # 0.5 L (1.0-4.8) k/uL Monocytes # 1.4 H (0-1.0) k/uL Sodium (137-145) mmol/L Chloride (98-107) mmol/L Carbon Dioxide (22-30) mmol/L BUN (9-20) mg/dL Creatinine (0.66-1.25) mg/dL Glucose (74-99) mg/dL POC Glucose (mg/dL) 236 H 235 H (70-110) mg/dL Calcium (8.4-10.2) mg/dL Total Bilirubin (0.2-1.3) mg/dL ALT (4-49) U/L Alkaline Phosphatase (38-126) U/L Total Protein (6.3-8.2) g/dL Albumin (3.5-5.0) g/dL Microbiology - Last 24 Hours (Table) 04/12/24 08:28 Anaerobic Culture - Preliminary Foot - Right 04/12/24 08:28 Gram Stain - Preliminary Foot - Right Wound Culture - Preliminary Escherichia coli Staphylococcus aureus 04/12/24 08:28 Blood Culture Gram Stain - Preliminary Blood Blood Culture - Preliminary Staphylococcus aureus 04/12/24 08:28 Blood Culture Gram Stain - Preliminary Blood Blood Culture - Preliminary Staphylococcus aureus Molecular ID Assessment and Plan (1) Diabetic foot infection Current Visit: Yes Status: Acute Code(s): E11.628 - TYPE 2 DIABETES MELLITUS WITH OTHER SKIN COMPLICATIONS; L08.9 - LOCAL INFECTION OF THE SKIN AND SUBCUTANEOUS TISSUE, UNSP SNOMED Code(s): 348783803 (2) Gangrene of right foot Current Visit: Yes Status: Acute Code(s): I96 - GANGRENE, NOT ELSEWHERE CLASSIFIED SNOMED Code(s): 50340200354014719 (3) Sepsis Current Visit: Yes Status: Acute Code(s): A41.9 - SEPSIS, UNSPECIFIED ORGANISM SNOMED Code(s): 92503773 (4) Type 2 diabetes mellitus with foot ulcer Current Visit: No Status: Acute Code(s): E11.621 - TYPE 2 DIABETES MELLITUS WITH FOOT ULCER; L97.509 - NON-PRESSURE CHRONIC ULCER OTH PRT UNSP FOOT W UNSP SEVERITY SNOMED Code(s): 0154216536651 (5) Bacteremia Current Visit: Yes Status: Acute Code(s): R78.81 - BACTEREMIA SNOMED Code(s): 5279454 Plan: 1patient presented to hospital with sepsis in this patient who did have signi ficant elevated white count he is also hypotensive or tachycardic bradycardia. Sources right diabetic foot infection in this patient who did have a chronic nonhealing wound. Rotation of the right big toe and also with a necrotic wound on the right foot lateral border previous culture positive for MSSA however will need to cover for resistant gram-positive as well as gram-negative pathogen pending workup outpatient 2-patient will benefit from surgical debridement and deep culture 3-patient blood cultures Are positive MSSA local culture positive for MSSA and E. coli 4we will discontinue Zosyn and vancomycin start the patient cefazolin and oral Flagyl Dictation was produced using [employer] dictation software. please excuse any grammatical, word or spelling errors. Time with Patient: Less than 30
[2024-04-14 16:58] LABS: Glucose,Whole Blood 175 mg/dL (70-110)
--- NOTE | 2024-04-14 18:41 | P.CRDCN ---
History of Present Illness Consult date: 04/14/24 History of present illness: HISTORY OF PRESENTING ILLNESS Patient is a 63-year-old male with PMH of type 2 diabetes, hypertension, heart failure, C CAD, ESRD on hemodialysis was recently admitted to the hospital for a right big toe gangrene s/p amputation. He had complication with MSSA infection. This time he presented to the hospital with worsening shortness of breath and elevated WBC count. On admission there was evidence of sepsis, hypotension, and tachycardia. Troponin is mildly elevated at 0.039, 0.035, BNP was elevated, creatinine 4.8, REVIEW OF SYSTEMS 14 point review of system is negative except what is mentioned above in HPI. PHYSICAL EXAMINATION Vital signs reviewed. Head: Normocephalic. Eyes: Sclerae nonicteric. Neck: Brisk carotid upstroke, Lungs: Poor inspiratory effort, mild crackles audible Heart: Irregularly irregular pulse, S1-S2, no S3, no murmur or rub. Abdomen: Soft nontender, positive bowel sounds. Extremities: 1+ edema, right foot dressing in place, Neuro: mildly confused no focal deficits. Detailed neuro exam was not performed. ASSESSMENT Septic shock Fall because of hypotension and sepsis ESRD on hemodialysis CAD Atrial fibrillation on anticoagulation Type 2 diabetes PAD s/p right toe gangrene amputation CHF AVANI CVA PLAN Continue supportive care with antibiotics and for sepsis management in ICU. Continue current medications aspirin 2.5, Lipitor 40, Plavix 75, metoprolol 12.5 mg twice daily Refrain from using midodrine Prognosis is guarded Luis Enrique Coello MD, FACC, RPVI Thank you for allowing [facility] to participate in this patient's care. Feel free to reach out in case of any followup questions. Past Medical History Past Medical History: Coronary Artery Disease (CAD), Cancer, Heart Failure, CVA/TIA, Diabetes Mellitus, Eye Disorder, Hypertension, Myocardial Infarction (ID), Renal Disease, Respiratory Disorder, Sleep Apnea/CPAP/BIPAP, Thyroid Disorder Additional Past Medical History / Comment(s): unhealing sore left index finger, neuropathy bilateral lower extremity/feet, bilateral eye diabetic re tinopathy/poor vision/multiple injections, ESRD with hemodialysis M/W/F from 6:15 to 11:00, anemia, "mini strokes" x2, AVANI with CPap use, occasional low back pain/disc disease, gout, hypothyroid Last Myocardial Infarction Date:: 04/19/23 History of Any Multi-Drug Resistant Organisms: MRSA Date of last positivie culture/infection: 12/10/21 MDRO Source:: Finger-Right 5th Past Surgical History: Adenoidectomy, Bariatric Surgery, Cholecystectomy, Heart Catheterization, Heart Catheterization With Stent, Orthopedic Surgery, Tonsillectomy Additional Past Surgical History / Comment(s): 10/22/20 PCI with stents x2, lap banding, FX of right ankle repair pins / plate, fistual lt arm jul 2018, lt shoulder sx (d/t separation), colonoscopies, bilateral cataract removals/lens implants. LIF surgery 08/11/21 R LEG stacey placed January 2023 04/19/23 3 stents Past Anesthesia/Blood Transfusion Reactions: Motion Sickness Additional Past Anesthesia/Blood Transfusion Reaction / Comment(s): CLAUSTERPHOBIA Date of Last Stent Placement:: 04/19/23 Past Psychological History: Anxiety Smoking Status: Former smoker Past Alcohol Use History: None Reported Past Drug Use History: None Reported - Past Family History Mother History Unknown: Yes Family Medical History: Coronary Artery Disease (CAD), Myocardial Infarction (ID) Additional Family Medical History / Comment(s): Mother at age 58 from multiple sclerosis Father Family Medical History: CVA/TIA, Myocardial Infarction (ID) Additional Family Medical History / Comment(s): Father had history of ID and CVA followed by a second ID and CVA and at age 65. Brother(s) Additional Family Medical History / Comment(s): . Medications and Allergies Home Medications Medication Instructions Recorded Confirmed Type Levothyroxine Sodium 100 mcg PO HS 07/06/17 04/12/24 History HYDROcodone/APAP 10-325MG [[place] 1 tab PO 5XD PRN 11/24/20 04/12/24 History 10-325] Insulin Regular, Human [NovoLIN R See Protocol SQ ACHS PRN 11/24/20 04/12/24 History Flexpen] Apixaban [Eliquis] 2.5 mg PO BID 02/16/23 04/12/24 History Atorvastatin [Lipitor] 40 mg PO HS 07/16/23 04/12/24 History Calcium Acetate [PhosLo] 1,334 mg PO AC-TID 07/16/23 04/12/24 History Calcium Acetate [PhosLo] 667 mg PO DAILY PRN 07/16/23 04/12/24 History LORazepam 1 mg PO BID PRN 11/23/23 04/12/24 History Clopidogrel [Plavix] 75 mg PO DAILY 90 Days #90 tab 11/26/23 04/12/24 Rx Midodrine HCl [ProAmatine] 10 mg PO TUTHSA 01/25/24 04/12/24 History Calcium Carbonate [Tums] 500 mg PO QID PRN tab 02/08/24 04/12/24 Rx Collagenase [Santyl Ointment] 1 applic TOPICAL Q2D 04/12/24 04/12/24 History FLUoxetine HCL [PROzac] 20 mg PO BID 04/12/24 04/12/24 History Insulin Detemir [Levemir Flexpen] 5 units SQ HS 04/12/24 04/12/24 History Metoprolol Tartrate [Lopressor] 12.5 mg PO BID 04/12/24 04/12/24 History Midodrine HCl [ProAmatine] 10 mg PO DAILY PRN 04/12/24 04/12/24 History Allergies Allergy/AdvReac Type Severity Reaction Status Date / Time No Known Allergies Allergy Verified 04/12/24 11:45 Physical Exam Vitals: Vital Signs Temp Pulse Pulse Resp BP BP Pulse Ox 04/14/24 18:00 129 H 20 98/59 93 L 04/14/24 17:45 103 H 22 89/55 94 L 04/14/24 17:30 100 15 98/60 91 L 04/14/24 17:15 96 0 L 90/63 04/14/24 17:00 88 20 76/53 92 L 04/14/24 16:45 95 20 109/60 98 04/14/24 16:30 88 19 100/61 97 04/14/24 16:15 86 18 81/44 92 L 04/14/24 16:00 113 H 16 98/54 97 04/14/24 15:45 80 19 112/92 98 04/14/24 15:30 101 H 20 95/62 100 04/14/24 15:25 98.5 F 82 16 95/62 04/14/24 15:15 95 16 78/55 100 04/14/24 15:00 90 16 86/56 100 04/14/24 14:45 78 17 97/54 100 04/14/24 14:30 82 19 93/59 100 04/14/24 14:15 91 21 100/52 100 04/14/24 14:00 91 21 93/69 100 04/14/24 13:45 93 22 100/73 100 04/14/24 13:30 99 20 85/59 100 04/14/24 13:15 80 23 92/47 100 04/14/24 13:00 103 H 24 100/60 100 04/14/24 12:45 91 20 82/51 100 04/14/24 12:30 90 23 86/48 99 04/14/24 12:15 102 H 18 107/54 97 04/14/24 12:00 93 32 H 106/49 98 04/14/24 11:45 82 22 69/52 96 04/14/24 11:30 107 H 32 H 111/57 98 04/14/24 11:15 92 21 91/41 98 04/14/24 11:00 110 H 20 99/62 98 04/14/24 10:45 105 H 17 64/46 98 04/14/24 10:30 102 H 12 104/47 98 04/14/24 10:15 97 13 105/66 98 04/14/24 10:00 103 H 16 79/43 99 04/14/24 09:45 107 H 26 H 78/47 98 04/14/24 09:30 92 21 83/58 98 04/14/24 09:15 98 24 91/60 98 04/14/24 09:00 98 24 90/59 98 04/14/24 08:45 126 H 22 106/61 98 04/14/24 08:30 112 H 30 H 115/38 97 04/14/24 08:15 110 H 15 107/46 98 04/14/24 08:00 108 H 23 109/76 98 04/14/24 07:45 90 21 111/66 97 04/14/24 07:30 100 24 105/54 97 03 07:15 97 23 101/48 99 04/14/24 07:00 105 H 21 99/57 96 04/14/24 06:45 98 14 95/63 97 04/14/24 06:30 114 H 22 78/43 98 04/14/24 06:15 102 H 14 74/43 08/03/24 06:00 103 H 14 101/57 88 L 04/14/24 05:45 97 23 101/56 98 04/14/24 05:30 99 29 H 104/58 93 L 04/14/24 05:15 105 H 12 102/49 96 04/14/24 05:00 101 H 11 L 103/55 90 L 04/14/24 04:45 99 26 H 97/48 96 04/14/24 04:30 104 H 20 92/46 94 L 04/14/24 04:15 104 H 8 L 88/54 85 L 04/14/24 04:00 98.7 F 107 H 27 H 93/46 95 04/14/24 03:45 106 H 16 113/60 97 04/14/24 03:30 105 H 20 107/60 97 04/14/24 03:15 105 H 24 101/70 99 04/14/24 03:00 100 23 99/48 99 04/14/24 02:45 99 24 89/47 97 04/14/24 02:30 98 21 104/45 96 04/14/24 02:15 101 H 21 97/72 99 04/14/24 02:00 87 19 98/46 97 04/14/24 01:45 94 22 88/64 97 04/14/24 01:30 98 22 86/53 95 04/14/24 01:15 101 H 23 99/58 91 L 04/14/24 01:00 99 11 L 115/61 98 04/14/24 00:45 103 H 31 H 93/41 98 04/14/24 00:30 101 H 94/35 96 04/14/24 00:15 103 H 19 91/59 96 04/14/24 00:00 98.4 F 99 20 90/53 97 04/13/24 23:45 102 H 22 107/49 96 04/13/24 23:40 101 H 20 107/49 96 04/13/24 23:30 104 H 19 112/51 97 04/13/24 23:15 107 H 25 H 97/56 97 04/13/24 23:00 97.6 F 96 20 100/48 96 04/13/24 22:45 104 H 17 96/61 97 04/13/24 22:30 113 H 23 91/58 97 04/13/24 22:15 108 H 21 107/58 96 04/13/24 22:00 101 H 23 101/62 96 04/13/24 21:45 94 19 106/46 98 04/13/24 21:30 96 14 99/50 99 04/13/24 21:15 96 29 H 105/58 97 04/13/24 21:00 103 H 32 H 85/55 99 04/13/24 20:45 105 H 21 98/61 98 04/13/24 20:30 106 H 16 96/62 98 04/13/24 20:15 106 H 22 84/58 98 04/13/24 20:00 98.9 F 107 H 20 105/59 98 04/13/24 19:45 96 10 L 85/57 97 04/13/24 19:30 106 H 20 100/55 97 04/13/24 19:15 112 H 12 102/52 97 04/13/24 19:00 105 H 25 H 91/56 95 04/13/24 18:45 98 22 113/75 96 Intake and Output 04/14/24 04/14/24 04/14/24 06:59 14:59 22:59 Intake Total 6227.029 7793.484 870 Output Total 0 0 2150 Balance 0409.761 5937.484 -1280 Intake: IV 220 400 20 .9 20cc/hr 160 140 20 Invasive Line 1 20 20 Invasive Line 2 20 20 Invasive Line 4 20 20 Magnesium Sulfate-D5w Pmx 100 1 gm In Dextrose/Water 1 100ml.bag @ 100 mls/hr IVPB Q1H [facility] Rx#: [id number] Piperacillin-Tazobactam 3 100 .375 gm In Sodium Chloride 0.9% 100 ml @ 25 mls/hr IVPB Q12H [facility] Rx# :[id number] Intake, IV Titration 224.890 759.484 Amount Norepinephrine 4 mg In 224.890 759.484 Sodium Chloride 0.9% 250 ml @ 0.03 MCG/KG/MIN 14. 154 mls/hr IV .[id number] [facility] Rx#:[id number] Oral 680 240 Hemodialysis 850 Output: Urine 0 0 0 Hemodialysis 1500 Hemodialysis Net Amount 650 Other: Weight 131 kg Results 04/14/24 05:59 04/14/24 05:59 Cardiac Enzymes 04/14/24 Range/Units 05:59 AST 53 (17-59) U/L CBC 04/14/24 Range/Units 05:59 WBC 22.0 H (3.8-10.6) k/uL RBC 3.42 L (4.30-5.90) m/uL Hgb 10.4 L (13.0-17.5) gm/dL Hct 35.9 L (39.0-53.0) % Plt Count 263 (150-450) k/uL Comprehensive Metabolic Panel 04/14/24 Range/Units 05:59 Sodium 128 L (137-145) mmol/L Potassium 4.5 (3.5-5.1) mmol/L Chloride 93 L (98-107) mmol/L Carbon Dioxide 19 L (22-30) mmol/L BUN 49 H (9-20) mg/dL Creatinine 4.19 H (0.66-1.25) mg/dL Glucose 182 H (74-99) mg/dL Calcium 8.3 L (8.4-10.2) mg/dL AST 53 (17-59) U/L ALT 108 H (4-49) U/L Alkaline Phosphatase 227 H (38-126) U/L Total Protein 5.6 L (6.3-8.2) g/dL Albumin 2.7 L (3.5-5.0) g/dL Current Medications Generic Name Dose Route Start Last Admin Trade Name Freq PRN Reason Stop Dose Admin Acetaminophen 650 mg 04/12/24 08:08 04/13/24 07:53 Acetaminophen Tab 325 Mg Tab PO 650 mg Q6HR PRN Administration Mild Pain or Fever > 100.5 Hydrocodone Bitart/Acetaminophen 1 each 04/12/24 08:08 04/13/24 05:48 Hydrocodone/Apap 5-325mg 1 Each Tab PO 1 each Q4HR PRN Administration Moderate Pain (Scale 4 to 6) Hydrocodone Bitart/Acetaminophen 1 each 04/13/24 08:41 04/14/24 16:37 Hydrocodone/Apap 10-325mg 1 Each Tab PO 1 each Q4HR PRN Administration Severe Pain (Scale 7 to 10) Apixaban 2.5 mg 04/12/24 21:00 04/14/24 08:30 Apixaban 2.5 Mg Tablet PO 2.5 mg BID [facility] Administration Protocol Atorvastatin Calcium 40 mg 04/12/24 21:00 04/13/24 21:21 Atorvastatin 40 Mg Tab PO 40 mg HS [facility] Administration Calcium Acetate 667 mg 04/12/24 11:52 Calcium Acetate 667 Mg Tab PO DAILY PRN SNACKS Calcium Acetate 1,334 mg 04/12/24 12:30 04/14/24 16:26 Calcium Acetate 667 Mg Tab PO 1,334 mg AC-TID [facility] Administration Calcium Carbonate/Glycine 500 mg 04/12/24 11:52 Calcium Carbonate 500 Mg Chewable PO QID PRN Heartburn Clopidogrel Bisulfate 75 mg 04/13/24 09:00 04/14/24 08:30 Clopidogrel 75 Mg Tab PO 75 mg DAILY [facility] Administration Collagenase 1 applic 04/13/24 13:00 04/13/24 11:35 Collagenase 250 Unit/Gm Ointment 30 Gm Tube TOPICAL 1 applic Q2D [facility] Administration Protocol Dextrose/Water 25 ml 04/12/24 20:41 Dextrose 50% Syringe 50 Ml IVP PER PROTOCOL PRN Hypoglycemia Protocol Dextrose/Water 50 ml 04/12/24 20:41 Dextrose 50% Syringe 50 Ml IVP PER PROTOCOL PRN Hypoglycemia Protocol Fluoxetine HCl 60 mg 04/14/24 09:00 04/14/24 08:30 Fluoxetine Hcl 20 Mg Cap PO 60 mg DAILY [facility] Administration Norepinephrine Bitartrate 4 mg 254 mls @ 14.154 mls/hr 04/12/24 21:45 04/14/24 13:59 / Sodium Chloride IV 0.16 mcg/kg/min .[id number] [facility] 75.487 mls/hr Administration Protocol 0.03 MCG/KG/MIN Cefazolin Sodium 2 gm/ Sodium 50 mls @ 100 mls/hr 04/14/24 21:00 Chloride IVPB Q12HR [facility] Protocol Insulin Aspart 0 unit 04/12/24 21:00 04/14/24 13:14 Insulin Aspart (Novolog) 100 Unit/Ml Vial SQ 4 unit ACHS [facility] Administration Protocol Insulin Aspart 3 unit 04/14/24 12:30 04/14/24 13:13 Insulin Aspart (Novolog) 100 Unit/Ml Vial SQ 3 unit AC-TID [facility] Administration Insulin Detemir 10 unit 04/14/24 21:00 Insulin Detemir (Levemir) 100 Unit/Ml Syr SQ HS [facility] Levothyroxine Sodium 100 mcg 04/12/24 21:00 08/02/24 21:21 Levothyroxine 100 Mcg Tab PO 100 mcg HS [facility] Administration Lorazepam 1 mg 04/12/24 11:52 04/13/24 07:54 Lorazepam 1 Mg Tab PO 1 mg BID PRN Administration Anxiety Metoprolol Tartrate 12.5 mg 04/12/24 12:15 04/14/24 08:30 Metoprolol Tartrate 12.5 Mg Tab PO 12.5 mg BID [facility] Administration Metronidazole 500 mg 04/14/24 22:00 Metronidazole 500 Mg Tab PO TID [facility] Protocol Midodrine 10 mg 04/12/24 12:30 04/14/24 16:27 Midodrine 5 Mg Tab PO 10 mg AC-TID [facility] Administration Miscellaneous Information 1 each 04/13/24 07:51 Magnesium Replacement Protocol 1 Each Misc MISCELLANE DAILY PRN Per Protocol Protocol Naloxone HCl 0.2 mg 04/12/24 08:08 Naloxone 0.4 Mg/Ml 1 Ml Vial IV Q2M PRN Opioid Reversal Ondansetron HCl 4 mg 04/12/24 08:08 Ondansetron 4 Mg/2 Ml Vial IVP Q8HR PRN Nausea And Vomiting Petrolatum 1 applic 04/13/24 11:31 04/13/24 16:16 Zinc Oxide Paste (Z-Guard) 1 Applic TOPICAL 1 applic Q2HR PRN Administration Wound Healing Protocol Trazodone HCl 25 mg 04/13/24 21:00 04/13/24 21:22 Trazodone Hcl 50 Mg Tab PO 25 mg HS [facility] Administration Intake and Output 04/14/24 04/14/24 04/14/24 06:59 14:59 22:59 Intake Total 7922.375 0803.484 870 Output Total 0 0 2150 Balance 4813.602 8248.484 -1280 Intake: IV 220 400 20 .9 20cc/hr 160 140 20 Invasive Line 1 20 20 Invasive Line 2 20 20 Invasive Line 4 20 20 Magnesium Sulfate-D5w Pmx 100 1 gm In Dextrose/Water 1 100ml.bag @ 100 mls/hr IVPB Q1H [facility] Rx#: [id number] Piperacillin-Tazobactam 3 100 .375 gm In Sodium Chloride 0.9% 100 ml @ 25 mls/hr IVPB Q12H [facility] Rx# :[id number] Intake, IV Titration 224.890 759.484 Amount Norepinephrine 4 mg In 224.890 759.484 Sodium Chloride 0.9% 250 ml @ 0.03 MCG/KG/MIN 14. 154 mls/hr IV .[id number] [facility] Rx#:[id number] Oral 680 240 Hemodialysis 850 Output: Urine 0 0 0 Hemodialysis 1500 Hemodialysis Net Amount 650 Other: Weight 131 kg 04/14/24 05:59 04/14/24 05:59
[2024-04-14 20:46] LABS: Glucose,Whole Blood 162 mg/dL (70-110)
[2024-04-14] MEDS: metroNIDAZOLE 500 MG TAB PO SCH (21:01)
[2024-04-14] MEDS: INSULIN DETEMIR (LEVEMIR) 100 UNIT/ML SYR SQ SCH (21:03)
[2024-04-15 05:51] LABS: Glucose,Whole Blood 126 mg/dL (70-110)
[2024-04-15 06:15] LABS: Basophils # (A) 0.1 k/uL (0-0.2); Basophils % (A) 0 %; Eosinophils # (A) 0.1 k/uL (0-0.7); Eosinophils % (A) 1 %; HCT 35.1 % (39.0-53.0); HGB 10.5 gm/dL (13.0-17.5); Hypochromasia Marked; Lymphocytes # (A) 0.4 k/uL (1.0-4.8); Lymphocytes % (A) 2 %; MCH 31.2 pg (25.0-35.0); MCHC 29.9 g/dL (31.0-37.0); MCV 104.5 fL (80.0-100.0); Macrocytosis Moderate; Mean Platelet Volume 7.4; Monocytes % (A) 5 %; Neutrophils # (A) 19.2 k/uL (1.3-7.7); Neutrophils % (A) 91 %; Platelet Count 256 k/uL (150-450); RBC 3.36 m/uL (4.30-5.90); RDW 14.9 % (11.5-15.5); WBC 21.2 k/uL (3.8-10.6)
[2024-04-15 06:27] LABS: ALT 76 U/L (4-49); AST 43 U/L (17-59); African American GFR (CKD) 24 (>60 ml/min/1.73 sqM); Albumin 2.6 g/dL (3.5-5.0); Alkaline Phosphatase 270 U/L (38-126); Anion Gap 13 mmol/L; Blood Urea Nitrogen 36 mg/dL (9-20); Calcium 8.4 mg/dL (8.4-10.2); Carbon Dioxide 24 mmol/L (22-30); Chloride 97 mmol/L (98-107); Glucose 130 mg/dL (74-99); Magnesium 1.9 mg/dL (1.6-2.3); Non-African American GFR(CKD) 20 (>60 ml/min/1.73 sqM); Potassium 3.9 mmol/L (3.5-5.1); Sodium 134 mmol/L (137-145); Total Bilirubin 1.2 mg/dL (0.2-1.3); Total Protein 5.4 g/dL (6.3-8.2)
[2024-04-15 06:33] LABS: Vancomycin,Random 15.2 ug/mL
--- NOTE | 2024-04-15 10:37 | P.PN ---
Subjective Progress Note Date: 04/15/24 Principal diagnosis: Acute sepsis, bacteremia, and septic shock This is a pleasant 63-year-old male patient with a known history of coronary artery disease with previous stent placement to the LAD, congestive heart failure, diabetes mellitus, hypertension, obstructive sleep apnea, CVA, end- stage renal disease on dialysis Tuesday. He also has peripheral vascular disease with multiple amputations of his fingers. He also had an amputation of his right great toe that has become infected and gangrenous. He has been following with Dr. Levy. Presented here to the emergency room early this morning after sustaining a fall while getting up from a chair and hit the right side of his head on a TV table. He is on both Eliquis and Plavix. He denied any loss of consciousness. CT scan of the head revealed no acute intracranial process. Cervical spine revealed no evidence of fracture. While here in the hospital he was found to be hypotensive. He was to have dialysis today. X-ray reveals some mild fluid volume overload. X-ray of the right foot revealed no acute fracture or dislocation. White count 25.1. Hemoglobin 10.0. Platelets 226. INR 1.5. Sodium 128. Potassium 5.0. Bicarb 25. BUN 47. Creatinine 4.89. Glucose 229. AST 148. ALT 163. Troponin 0.039, 0.035. proBNP 192,000. Viral screen negative. He is seen today in consultation in the emergency department. He is currently sitting up in chair in a chair. Awake and alert in no acute distress. He is a bit lightheaded. His pressures have been as low as 60 systolic. Most recent blood pressure 90/53 with a mean of 65. Maintaining good O2 saturations up to 100% on 2 L/min per nasal cannula. He is afebrile. He has been initiated on vancomycin and Zosyn. Was seen today on 04/13/2024, remains in the ICU, I admitted this patient yesterday from the ER to the ICU when he presented with severe sepsis with infection involving the amputation site of right big toe, patient was hypotensive requiring multiple boluses of saline, nonetheless he continues to have low blood pressure and he required placement on norepinephrine. Presently on 0.06 mcg/kg/min. His blood cultures came back positive for what seems to be Staph aureus infection, possibly MRSA, in the meantime the patient remains on vancomycin and Zosyn. In addition the patient will require hemodialysis this m lanceing,, patient has been on hemodialysis for the last 5-1/2 years. Pulmonary díaz the patient does not seem to be in distress, he continues to have leukocytosis with WBC count of 25.8 hemoglobin 10.6. His electrolytes showed low sodium of 128 potassium 5 BUN is 56 creatinine 5.21. His bicarb is 22 and he has anion gap of 15 related to his sepsis and related to his chronic renal failure. Lactic acid on admission was 3.8, and today it is 1.90 magnesium is low, being addressed accordingly. Regarding his foot, patient was seen by vascular surgery, and the decision is yet to be made regarding below-knee amputation or above-knee amputation. This is yet to be decided upon patient was evaluated today on 04/14/2024, patient remains in the ICU, remains hemodynamically unstable he is still requiring norepinephrine at 0.17 mcg/kg/min. Remains on IV fluid at O patient is a dialysis patient scheduled to have repeat hemodialysis today he was dialyzed yesterday and had -586 mL. Patient is being treated for bacteremia with presumptive MRSA/using vancomycin patient is also on Zosyn as his foot cultures showed Staph aureus and E. coli. Patient was seen by vascular surgery apparently today, and the vascular surgeon is considering transferring the patient to [facility] where he had his previous surgery done by another surgeon down there. Patient is being considered for below-knee amputation or above-knee amputation and that is yet to be decided upon. In the meantime the patient is on antibiotics, he is feeling better, denies any shortness of breath or cough or wheezing, denies any chest pain, blood pressure is marginal. WBC count is down to 22 hemoglobin is 10.4 sodium is 128 BUN 49 creatinine 4.19 Was reevaluated today on 04/15/2024, patient remains in the ICU, his blood cultures came back showing MSSA, and his wound cultures showed MSSA and E. coli. His vancomycin has been discontinued. Patient was placed on cefazolin and on metronidazole as per infectious disease. Clinically the patient looks great, does not seem to be in any distress, nonetheless still working on tapering and hopefully discontinuing his norepinephrine today. Patient was seen by vascular surgery yesterday, still considering possibly transferring the patient to [facility] for amputation, at this point is not decided whether this would be a below-knee amputation or above-knee amputation. Dr. Levy from vascular is supposed to discuss this with the surgeon at [facility]. Labs today showed WC count of 21.2 hemoglobin 10.5. Electrolytes are normal BUN is 36 creatinine 3.08, patient is a long-term hemodialysis patient for the last 5 years. Objective - Vital Signs Vital signs: Vital Signs Temp 98.4 F 04/15/24 04:00 Pulse 104 H 04/15/24 07:00 Resp 13 04/15/24 07:00 BP 107/73 04/15/24 07:00 Pulse Ox 99 04/15/24 07:00 FiO2 Intake & Output 04/14/24 04/15/24 04/15/24 18:59 06:59 18:59 Intake Total 2629.996 1300.667 124.821 Output Total 2150 0 0 Balance 867.373 2346.667 124.821 Weight 131 kg Intake: IV 510 220 10 .9 20cc/hr 220 130 10 Invasive Line 1 30 30 Invasive Line 2 30 30 Invasive Line 4 30 30 Magnesium Sulfate-D5w Pmx 100 1 gm In Dextrose/Water 1 100ml.bag @ 100 mls/hr IVPB Q1H [facility] Rx#: [id number] Piperacillin-Tazobactam 3 100 .375 gm In Sodium Chloride 0.9% 100 ml @ 25 mls/hr IVPB Q12H [facility] Rx# :[id number] Intake, IV Titration 1029.996 630.667 114.821 Amount Norepinephrine 4 mg In 1029.996 630.667 114.821 Sodium Chloride 0.9% 250 ml @ 0.03 MCG/KG/MIN 14. 154 mls/hr IV .[id number] [facility] Rx#:[id number] Oral 240 450 Hemodialysis 850 Output: Urine 0 0 0 Hemodialysis 1500 Hemodialysis Net Amount 650 Other: # Bowel Movements 1 - Exam GENERAL EXAM: Revealed a 63-year-old white male, on room air HEAD: Normocephalic. EYES: Normal reaction of pupils, equal size. NOSE: Clear with pink turbinates. THROAT: No erythema or exudates. NECK: No masses, no JVD. CHEST: No chest wall deformity. LUNGS: Clear bilaterally no crackles rhonchi or wheezes. CVS: S1 and S2 normal with no audible murmur, irregular rhythm. ABDOMEN: Obese, no hepatosplenomegaly, normal bowel sounds, no guarding or rigidity. SKIN: No rashes. Multiple wounds of the left upper extremity secondary to dog bites. CENTRAL NERVOUS SYSTEM: Alert and oriented x 3 no gross focal deficit EXTREMITIES: Multiple amputations of several fingers bilaterally. Open wound and gangrenous skin status post right great toe amputation. - Labs CBC & Chem 7: 04/15/24 05:44 04/15/24 05:44 Labs: Abnormal Lab Results - Last 24 Hours (Table) 04/14/24 04/14/24 04/14/24 Range/Units 11:37 16:56 20:44 WBC (3.8-10.6) k/uL RBC (4.30-5.90) m/uL Hgb (13.0-17.5) gm/dL Hct (39.0-53.0) % MCV (80.0-100.0) fL MCHC (31.0-37.0) g/dL Neutrophils # (1.3-7.7) k/uL Lymphocytes # (1.0-4.8) k/uL Sodium (137-145) mmol/L Chloride (98-107) mmol/L BUN (9-20) mg/dL Creatinine (0.66-1.25) mg/dL Glucose (74-99) mg/dL POC Glucose (mg/dL) 235 H 175 H 162 H (70-110) mg/dL ALT (4-49) U/L Alkaline Phosphatase (38-126) U/L Total Protein (6.3-8.2) g/dL Albumin (3.5-5.0) g/dL 04/15/24 04/15/24 04/15/24 Range/Units 05:44 05:44 05:49 WBC 21.2 H (3.8-10.6) k/uL RBC 3.36 L (4.30-5.90) m/uL Hgb 10.5 L (13.0-17.5) gm/dL Hct 35.1 L (39.0-53.0) % MCV 104.5 H (80.0-100.0) fL MCHC 29.9 L (31.0-37.0) g/dL Neutrophils # 19.2 H (1.3-7.7) k/uL Lymphocytes # 0.4 L (1.0-4.8) k/uL Sodium 134 L (137-145) mmol/L Chloride 97 L (98-107) mmol/L BUN 36 H (9-20) mg/dL Creatinine 3.08 H (0.66-1.25) mg/dL Glucose 130 H (74-99) mg/dL POC Glucose (mg/dL) 126 H (70-110) mg/dL ALT 76 H (4-49) U/L Alkaline Phosphatase 270 H (38-126) U/L Total Protein 5.4 L (6.3-8.2) g/dL Albumin 2.6 L (3.5-5.0) g/dL Microbiology - Last 24 Hours (Table) 04/12/24 08:28 Blood Culture Gram Stain - Final Blood Blood Culture - Final Staphylococcus aureus 04/12/24 08:28 Blood Culture Gram Stain - Final Blood Blood Culture - Final Staphylococcus aureus Molecular ID 04/12/24 08:28 Anaerobic Culture - Preliminary Foot - Right 04/12/24 08:28 Gram Stain - Preliminary Foot - Right Wound Culture - Preliminary Escherichia coli Staphylococcus aureus Assessment and Plan Assessment: Impression: Acute sepsis and septic shock with gram-positive bacteremia, MSSA, patient is now on cefazolin he is also on Flagyl Hypotension secondary to above improving, plan to hopefully taper and discontinue norepinephrine today Status post fall without any specific injury End-stage renal disease, on hemodialysis Underlying coronary artery disease and previous stent placement to LAD and multiple vessel stenting Chronic atrial fibrillation, anticoagulated with Eliquis Peripheral vessel occlusive disease with multiple amputations of multiple fingers both hands, and right big toe amputation Severe diabetic neuropathy and diabetic retinopathy Ex-smoker Benign essential hypertension Obstructive sleep apnea syndrome not on CPAP History of CVA Dyslipidemia History of hypothyroidism Recommendation: Continue to monitor in the ICU, as long as the patient is requiring norepinephrine which is being tapered and hopefully discontinued by the end of the day Continue hemodialysis, and cautious monitoring of I's and O's Continue antibiotics, patient is on cefazolin and on metronidazole. Continue midodrine Vascular surgery is considering transferring the patient to [facility], this will most likely take place in the next 24 hours Continue to monitor daily labs GI and DVT prophylaxis Will continue to follow Time with Patient: Less than 30
[2024-04-15 12:10] LABS: Glucose,Whole Blood 172 mg/dL (70-110)
[2024-04-15] MEDS: POTASSIUM CHLORIDE ER 20 MEQ TAB.ER PO STA (12:19)
--- NOTE | 2024-04-15 12:22 | P.PN ---
Subjective patient is seen for follow-up for end-stage renal disease. Maintained on a Tuesday schedule. status post hemodialysis yesterday with no significant UF due to hypotension. Blood cultures are positive for staph aureus Maintained on vancomycin. Being followed by vascular surgery for possible need for BKA versus AKA. Objective - Vital Signs Vital signs: Vital Signs Temp 98.1 F 04/15/24 08:00 Pulse 95 04/15/24 11:30 Resp 19 04/15/24 11:30 BP 115/61 04/15/24 11:30 Pulse Ox 99 04/15/24 11:30 FiO2 Intake & Output 04/14/24 04/15/24 04/15/24 18:59 06:59 18:59 Intake Total 2629.996 6240.928 0189.179 Output Total 2150 0 0 Balance 344.129 2570.667 1041.179 Weight 131 kg Intake: IV 510 220 95 .9 20cc/hr 220 130 45 Invasive Line 1 30 30 Invasive Line 2 30 30 Invasive Line 4 30 30 Magnesium Sulfate-D5w Pmx 100 1 gm In Dextrose/Water 1 100ml.bag @ 100 mls/hr IVPB Q1H [facility] Rx#: [id number] Piperacillin-Tazobactam 3 100 .375 gm In Sodium Chloride 0.9% 100 ml @ 25 mls/hr IVPB Q12H [facility] Rx# :[id number] ceFAZolin 2 gm In Sodium 50 Chloride 0.9% 50 ml @ 100 mls/hr IVPB Q12HR [facility] Rx #:[id number] Intake, IV Titration 1029.996 630.667 216.179 Amount Norepinephrine 4 mg In 1029.996 630.667 216.179 Sodium Chloride 0.9% 250 ml @ 0.03 MCG/KG/MIN 14. 154 mls/hr IV .[id number] [facility] Rx#:[id number] Oral 240 450 730 Hemodialysis 850 Output: Urine 0 0 0 Hemodialysis 1500 Hemodialysis Net Amount 650 Other: # Bowel Movements 1 - Exam Patient is awake, comfortable, no acute distress. Alert oriented x 3. Examination of the heart S1 and S2 Examination of the lungs bilateral breath sounds are heard Abdomen is soft obese Examination of lower extremities shows 1+ edema. Right foot is dressed. 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 DEBIT AGENT exam grossly intact - Labs CBC & Chem 7: 04/15/24 05:44 04/15/24 05:44 Labs: Abnormal Lab Results - Last 24 Hours (Table) 04/14/24 04/14/24 04/15/24 Range/Units 16:56 20:44 05:44 WBC (3.8-10.6) k/uL RBC (4.30-5.90) m/uL Hgb (13.0-17.5) gm/dL Hct (39.0-53.0) % MCV (80.0-100.0) fL MCHC (31.0-37.0) g/dL Neutrophils # (1.3-7.7) k/uL Lymphocytes # (1.0-4.8) k/uL Sodium 134 L (137-145) mmol/L Chloride 97 L (98-107) mmol/L BUN 36 H (9-20) mg/dL Creatinine 3.08 H (0.66-1.25) mg/dL Glucose 130 H (74-99) mg/dL POC Glucose (mg/dL) 175 H 162 H (70-110) mg/dL ALT 76 H (4-49) U/L Alkaline Phosphatase 270 H (38-126) U/L Total Protein 5.4 L (6.3-8.2) g/dL Albumin 2.6 L (3.5-5.0) g/dL 04/15/24 04/15/24 04/15/24 Range/Units 05:44 05:49 12:08 WBC 21.2 H (3.8-10.6) k/uL RBC 3.36 L (4.30-5.90) m/uL Hgb 10.5 L (13.0-17.5) gm/dL Hct 35.1 L (39.0-53.0) % MCV 104.5 H (80.0-100.0) fL MCHC 29.9 L (31.0-37.0) g/dL Neutrophils # 19.2 H (1.3-7.7) k/uL Lymphocytes # 0.4 L (1.0-4.8) k/uL Sodium (137-145) mmol/L Chloride (98-107) mmol/L BUN (9-20) mg/dL Creatinine (0.66-1.25) mg/dL Glucose (74-99) mg/dL POC Glucose (mg/dL) 126 H 172 H (70-110) mg/dL ALT (4-49) U/L Alkaline Phosphatase (38-126) U/L Total Protein (6.3-8.2) g/dL Albumin (3.5-5.0) g/dL Microbiology - Last 24 Hours (Table) 04/12/24 08:28 Blood Culture Gram Stain - Final Blood Blood Culture - Final Staphylococcus aureus 04/12/24 08:28 Blood Culture Gram Stain - Final Blood Blood Culture - Final Staphylococcus aureus Molecular ID 04/12/24 08:28 Anaerobic Culture - Preliminary Foot - Right 04/12/24 08:28 Gram Stain - Preliminary Foot - Right Wound Culture - Preliminary Escherichia coli Staphylococcus aureus Assessment and Plan Assessment: 1. End-stage renal disease on hemodialysis on Tuesday schedule via left arm AV fistula. 2. Right foot wound status post right big toe amputation in January 2024 currently with chronic wound status post recent I&D and being followed at the wound clinic with Dr. Levy. Recently noticed to have increased drainage from the wound. Currently maintained on IV antibiotics and there is discussion of possible BKA versus AKA. 3. CKD mineral bone disorder 4. Coronary artery disease 5. Type 2 diabetes 6. Sepsis from gram-positive bacteremia from right foot wound infection. Maintained on vancomycin and Zosyn. Plan: Continue antibiotics. hemodialysis in a.m.
--- NOTE | 2024-04-15 13:29 | P.PN ---
Subjective Progress Note Date: 04/15/24 HISTORY OF PRESENTING ILLNESS Patient is a 63-year-old male with PMH of type 2 diabetes, hypert ension, heart failure, C CAD, ESRD on hemodialysis was recently admitted to the hospital for a right big toe gangrene s/p amputation. He had complication with MSSA infection. This time he presented to the hospital with worsening shortness of breath and elevated WBC count. On admission there was evidence of sepsis, hypotension, and tachycardia. Troponin is mildly elevated at 0.039, 0.035, BNP was elevated, creatinine 4.8, Progress note April 15, 2024 Patient is still on low-dose norepinephrine drip. Blood pressure is better. Kidney function is still poor, heart rate rate is controlled, in A-fib Head: Normocephalic. Eyes: Sclerae nonicteric. Neck: Brisk carotid upstroke, Lungs: Poor inspiratory effort, mild crackles audible Heart: Irregularly irregular pulse, S1-S2, no S3, no murmur or rub. Abdomen: Soft nontender, positive bowel sounds. Extremities: 1+ edema, right foot dressing in place, Neuro: mildly confused no focal deficits. Detailed neuro exam was not performed. ASSESSMENT Septic shock Fall because of hypotension and sepsis ESRD on hemodialysis CAD Atrial fibrillation on anticoagulation Type 2 diabetes PAD s/p right toe gangrene amputation CHF AVANI CVA PLAN Continue supportive care with antibiotics and for sepsis management in ICU. Continue current medications aspirin 2.5, Lipitor 40, Plavix 75, metoprolol 12.5 mg twice daily Refrain from using midodrine Prognosis is guarded Objective - Vital Signs Vital signs: Vital Signs Temp 98.9 F 04/15/24 12:00 Pulse 111 H 04/15/24 13:00 Resp 22 04/15/24 13:00 BP 98/64 04/15/24 13:00 Pulse Ox 100 04/15/24 13:00 FiO2 Intake & Output 04/14/24 04/15/24 04/15/24 18:59 06:59 18:59 Intake Total 2629.996 0745.119 6855.179 Output Total 2150 0 0 Balance 077.748 7373.667 1551.179 Weight 131 kg Intake: IV 510 220 115 .9 20cc/hr 220 130 65 Invasive Line 1 30 30 Invasive Line 2 30 30 Invasive Line 4 30 30 Magnesium Sulfate-D5w Pmx 100 1 gm In Dextrose/Water 1 100ml.bag @ 100 mls/hr IVPB Q1H [facility] Rx#: [id number] Piperacillin-Tazobactam 3 100 .375 gm In Sodium Chloride 0.9% 100 ml @ 25 mls/hr IVPB Q12H [facility] Rx# :[id number] ceFAZolin 2 gm In Sodium 50 Chloride 0.9% 50 ml @ 100 mls/hr IVPB Q12HR [facility] Rx #:[id number] Intake, IV Titration 1029.996 630.667 216.179 Amount Norepinephrine 4 mg In 1029.996 630.667 216.179 Sodium Chloride 0.9% 250 ml @ 0.03 MCG/KG/MIN 14. 154 mls/hr IV .[id number] [facility] Rx#:[id number] Oral 589 174 9486 Hemodialysis 850 Output: Urine 0 0 0 Hemodialysis 1500 Hemodialysis Net Amount 650 Other: # Bowel Movements 1 - Labs CBC & Chem 7: 04/15/24 05:44 04/15/24 05:44 Labs: Abnormal Lab Results - Last 24 Hours (Table) 04/14/24 04/14/24 04/15/24 Range/Units 16:56 20:44 05:44 WBC (3.8-10.6) k/uL RBC (4.30-5.90) m/uL Hgb (13.0-17.5) gm/dL Hct (39.0-53.0) % MCV (80.0-100.0) fL MCHC (31.0-37.0) g/dL Neutrophils # (1.3-7.7) k/uL Lymphocytes # (1.0-4.8) k/uL Sodium 134 L (137-145) mmol/L Chloride 97 L (98-107) mmol/L BUN 36 H (9-20) mg/dL Creatinine 3.08 H (0.66-1.25) mg/dL Glucose 130 H (74-99) mg/dL POC Glucose (mg/dL) 175 H 162 H (70-110) mg/dL ALT 76 H (4-49) U/L Alkaline Phosphatase 270 H (38-126) U/L Total Protein 5.4 L (6.3-8.2) g/dL Albumin 2.6 L (3.5-5.0) g/dL 04/15/24 04/15/24 04/15/24 Range/Units 05:44 05:49 12:08 WBC 21.2 H (3.8-10.6) k/uL RBC 3.36 L (4.30-5.90) m/uL Hgb 10.5 L (13.0-17.5) gm/dL Hct 35.1 L (39.0-53.0) % MCV 104.5 H (80.0-100.0) fL MCHC 29.9 L (31.0-37.0) g/dL Neutrophils # 19.2 H (1.3-7.7) k/uL Lymphocytes # 0.4 L (1.0-4.8) k/uL Sodium (137-145) mmol/L Chloride (98-107) mmol/L BUN (9-20) mg/dL Creatinine (0.66-1.25) mg/dL Glucose (74-99) mg/dL POC Glucose (mg/dL) 126 H 172 H (70-110) mg/dL ALT (4-49) U/L Alkaline Phosphatase (38-126) U/L Total Protein (6.3-8.2) g/dL Albumin (3.5-5.0) g/dL Microbiology - Last 24 Hours (Table) 04/14/24 08:43 Blood Culture Gram Stain - Preliminary Blood 04/12/24 08:28 Anaerobic Culture - Preliminary Foot - Right Porphyromonas somerae 04/12/24 08:28 Blood Culture Gram Stain - Final Blood Blood Culture - Final Staphylococcus aureus 04/12/24 08:28 Blood Culture Gram Stain - Final Blood Blood Culture - Final Staphylococcus aureus Molecular ID
--- NOTE | 2024-04-15 15:53 | P.PN ---
Subjective Progress Note Date: 04/15/24 Patient is 63-year-old male came to emergency department after a fall appears to be mechanical fall hit on the right side of the head CT of the head is negative denies any loss of consciousness patient is on Eliquis and Plavix. Patient does have history of atrial fibrillation. Patient had any syncopal episode but although his blood pressure is low he is receiving midodrine and IV fluids at this time. Patient is insisting to secure dialysis patient on hemodialysis Tuesday and Tuesday schedule supposed to get hemodialysis today. Patient is also complaining of some lightheadedness also any atrial fibrillation mildly increased heart rate at 100 usually takes low-dose of metoprolol 12.5. Patient does not have any fever chills does have leukocytosis patient had a recent toe amputation month of January, after which patient ended up having a nonhealing wound in the right foot great toe area, patient has increased discharge which is most foul-smelling for last few days from the toe and does have leukocytosis of 25,000, vascular surgery wound care infectious disease were consulted and patient was started on Zosyn and vancomycin. Patient has mildly elevated troponins of 0.040 and 0.035 patient denies any chest pain. Patient is also hypomagnesemic. Patient has increased swelling in the right leg more than the left leg which has been there since his toe amputation. 04/13/2024 Patient is evaluated today in follow-up in the intensive care unit. Patient is currently undergoing hemodialysis which was ended early secondary to hypotensive. Patient is continued on midodrine as well as norepinephrine support. Blood cultures are found to be positive so far showing gram-positive patient remains on IV Zosyn and IV vancomycin with ID following closely. Source is likely this recent toe amputation site. His heart rate is also elevated up in the 110s in atrial fibrillation. 04/14/2024 Patient is eval today in follow-up in the intensive care unit. Patient continues on levophed for blood pressure support currently running in the 70-80s systolic. Patient is currently undergoing hemodialysis. Patient was eval by Dr. Levy regarding the wound to his right great toe amputation site recommending possible transfer to [facility] where his main orthopedic surgeon is as he does have a stacey and surgical implants in that right foot and ankle. Blood cultures positive for Staphylococcus aureus with wound culture showing E. coli and Staph aureus. IV vanco, IV zosyn. 04/15/2024 Patient evaluated in follow-up in the intensive care unit. Continues on IV cefazolin with a staph aureus bacteremia wound cultures are also showing staph and E. coli. Anaerobic culture is now coming back positive and for this Flagyl has been ordered. Repeat blood cultures are taken and pending at this time. Has no acute complaints at this time states that his pain is being managed with his oral [place]. Continues on norepinephrine. He also continues on midodrine. Heart Rate is better controlled. Blood work today reveals a white blood cell count of 21.2, hemoglobin 10.5, sodium of 134, BUN of 36, creatinine of 3.80. Review of Systems Constitutional: Denied any fatigue denied any fever. Cardio vascular: denied any chest pain, palpitations Gastrointestinal: denied any nausea, vomiting, diarrhea Pulmonary: Denied any shortness of breath cough Neurologic denied any new focal deficits All inpatient medications were reviewed and appropriate changes in these medications as dictated in the interval history and assessment and plan. PHYSICAL EXAMINATION: GENERAL: The patient is alert and oriented x3, not in any acute distress. Well developed, well nourished. HEENT: Pupils are round and equally reacting to light. EOMI. No scleral icterus. No conjunctival pallor. Normocephalic, atraumatic. No pharyngeal erythema. No thyromegaly. CARDIOVASCULAR: S1 and S2 present. No murmurs, rubs, or gallops. Tachycardic irregularly irregular rhythm PULMONARY: Chest is clear to auscultation, no wheezing or crackles. ABDOMEN: Soft, nontender, nondistended, normoactive bowel sounds. No palpable organomegaly. MUSCULOSKELETAL: No joint swelling or deformity. EXTREMITIES: No cyanosis, clubbing, NEUROLOGICAL: Gross neurological examination did not reveal any focal deficits. SKIN: Foul-smelling discharge from the right amputated toe stump area increased swelling in the right leg which has been chronic Assessment and plan -Right foot infection at recent right great toe amputation site with foul smelling discharge will obtain wound cultures and would benefit from deep cultures with debridement, patient will continue on Zosyn and vancomycin. -Septic shock from above requiring levophed and ICU care. -Leukocytosis due to assessment #1 -Gram positive bacteremia source is the toe amputation site. -End-stage renal disease hemodialysis, nephrology is following the patient -Hypomagnesemia and hypophosphatasia patient is on phosphate binders; will be given IV magnesium today and repeat blood work in the AM. -Hyponatremia secondary to end-stage renal disease -Peripheral vascular disease -Coronary artery disease -Atrial fibrillation chronic patient is mildly rapid ventricular rate may be contributing to his dizziness and shortness of breath -Type 2 diabetes mellitus with diabetic neuropathy patient will be resumed on home regimen and continue accuchecks ACHS and sliding scale insulin. -Hyperlipidemia -Sleep apnea uses CPAP machine at home -Hypothyroidism -History of prostate cancer with radiation therapy in the past DVT prophylaxis: Patient is on Eliquis which will be resumed and continued GI prophylaxis Full Code The impression and plan of care has been dictated by Ingrid Schneider Nurse Practitioner as directed. Dr. Mil MD I have performed a history and physical examination and medical decision making of this patient, discussed the same with the dictator, and agree with the dictators assessment and plan as written, documented as a scribe. Based on total visit time, I have performed more than 50% of this visit.ul Objective - Vital Signs Vital signs: Vital Signs Temp 98.4 F 04/15/24 04:00 Pulse 104 H 04/15/24 07:00 Resp 13 04/15/24 07:00 BP 107/73 04/15/24 07:00 Pulse Ox 99 04/15/24 07:00 FiO2 Intake & Output 04/14/24 04/15/24 04/15/24 18:59 06:59 18:59 Intake Total 2629.996 1300.667 70.39 Output Total 2150 0 0 Balance 854.600 0987.667 70.39 Weight 131 kg Intake: IV 510 220 10 .9 20cc/hr 220 130 10 Invasive Line 1 30 30 Invasive Line 2 30 30 Invasive Line 4 30 30 Magnesium Sulfate-D5w Pmx 100 1 gm In Dextrose/Water 1 100ml.bag @ 100 mls/hr IVPB Q1H [facility] Rx#: [id number] Piperacillin-Tazobactam 3 100 .375 gm In Sodium Chloride 0.9% 100 ml @ 25 mls/hr IVPB Q12H [facility] Rx# :[id number] Intake, IV Titration 1029.996 630.667 60.39 Amount Norepinephrine 4 mg In 1029.996 630.667 60.39 Sodium Chloride 0.9% 250 ml @ 0.03 MCG/KG/MIN 14. 154 mls/hr IV .[id number] ALINE Rx#:[id number] Oral 240 450 Hemodialysis 850 Output: Urine 0 0 0 Hemodialysis 1500 Hemodialysis Net Amount 650 Other: # Bowel Movements 1 - Labs CBC & Chem 7: 04/15/24 05:44 04/15/24 05:44 Labs: Abnormal Lab Results - Last 24 Hours (Table) 04/14/24 04/14/24 04/14/24 Range/Units 11:37 16:56 20:44 WBC (3.8-10.6) k/uL RBC (4.30-5.90) m/uL Hgb (13.0-17.5) gm/dL Hct (39.0-53.0) % MCV (80.0-100.0) fL MCHC (31.0-37.0) g/dL Neutrophils # (1.3-7.7) k/uL Lymphocytes # (1.0-4.8) k/uL Sodium (137-145) mmol/L Chloride (98-107) mmol/L BUN (9-20) mg/dL Creatinine (0.66-1.25) mg/dL Glucose (74-99) mg/dL POC Glucose (mg/dL) 235 H 175 H 162 H (70-110) mg/dL ALT (4-49) U/L Alkaline Phosphatase (38-126) U/L Total Protein (6.3-8.2) g/dL Albumin (3.5-5.0) g/dL 04/15/24 04/15/24 04/15/24 Range/Units 05:44 05:44 05:49 WBC 21.2 H (3.8-10.6) k/uL RBC 3.36 L (4.30-5.90) m/uL Hgb 10.5 L (13.0-17.5) gm/dL Hct 35.1 L (39.0-53.0) % MCV 104.5 H (80.0-100.0) fL MCHC 29.9 L (31.0-37.0) g/dL Neutrophils # 19.2 H (1.3-7.7) k/uL Lymphocytes # 0.4 L (1.0-4.8) k/uL Sodium 134 L (137-145) mmol/L Chloride 97 L (98-107) mmol/L BUN 36 H (9-20) mg/dL Creatinine 3.08 H (0.66-1.25) mg/dL Glucose 130 H (74-99) mg/dL POC Glucose (mg/dL) 126 H (70-110) mg/dL ALT 76 H (4-49) U/L Alkaline Phosphatase 270 H (38-126) U/L Total Protein 5.4 L (6.3-8.2) g/dL Albumin 2.6 L (3.5-5.0) g/dL Microbiology - Last 24 Hours (Table) 04/12/24 08:28 Blood Culture Gram Stain - Final Blood Blood Culture - Final Staphylococcus aureus 04/12/24 08:28 Blood Culture Gram Stain - Final Blood Blood Culture - Final Staphylococcus aureus Molecular ID 04/12/24 08:28 Anaerobic Culture - Preliminary Foot - Right 04/12/24 08:28 Gram Stain - Preliminary Foot - Right Wound Culture - Preliminary Escherichia coli Staphylococcus aureus Assessment and Plan Time with Patient: Less than 30
--- NOTE | 2024-04-15 16:02 | P.PN ---
Subjective Progress Note Date: 04/15/24 Principal diagnosis: Reason for follow-up is right diabetic foot infection and bacteremia Patient is a 63-year-old male with a past medical history significant for diabetes mellitus hypertension heart failure coronary disease history of end-stage renal disease on dialysis recently did have a right big toe potation for a diabetic foot infection and gangrene now presented to hospital with a fall worsening right foot infection and sepsis. On today's evaluation that is 04/15/2024, the patient continues to be afebrile, the patient is on 2 L and breathing comfortably, the Pt denies having any chest pain or cough, the patient denies having any abdominal pain no vomiting or any diarrhea has been reported by the nursing staff Patient white count is down to 21.2, creatinine 3.08 blood cultures from 8 3 came back positive as well Objective - Vital Signs Vital signs: Vital Signs Temp 98.9 F 04/15/24 12:00 Pulse 111 H 04/15/24 13:00 Resp 22 04/15/24 13:00 BP 98/64 04/15/24 13:00 Pulse Ox 100 04/15/24 13:00 FiO2 Intake & Output 04/14/24 04/15/24 04/15/24 18:59 06:59 18:59 Intake Total 2629.996 9307.950 9150.179 Output Total 2150 0 0 Balance 343.760 4772.667 1551.179 Weight 131 kg Intake: IV 510 220 115 .9 20cc/hr 220 130 65 Invasive Line 1 30 30 Invasive Line 2 30 30 Invasive Line 4 30 30 Magnesium Sulfate-D5w Pmx 100 1 gm In Dextrose/Water 1 100ml.bag @ 100 mls/hr IVPB Q1H [facility] Rx#: [id number] Piperacillin-Tazobactam 3 100 .375 gm In Sodium Chloride 0.9% 100 ml @ 25 mls/hr IVPB Q12H [facility] Rx# :[id number] ceFAZolin 2 gm In Sodium 50 Chloride 0.9% 50 ml @ 100 mls/hr IVPB Q12HR [facility]NIE Rx #:[id number] Intake, IV Titration 1029.996 630.667 216.179 Amount Norepinephrine 4 mg In 1029.996 630.667 216.179 Sodium Chloride 0.9% 250 ml @ 0.03 MCG/KG/MIN 14. 154 mls/hr IV .[id number] [facility] Rx#:[id number] Oral 952 194 0055 Hemodialysis 850 Output: Urine 0 0 0 Hemodialysis 1500 Hemodialysis Net Amount 650 Other: # Bowel Movements 1 - Exam GENERAL DESCRIPTION: Middle-age male lying in bed in no distress RESPIRATORY SYSTEM: Unlabored breathing , decreased breath sounds at bases HEART: S1 S2 regular rate and rhythm , ABDOMEN: Soft , no tenderness EXTREMITIES: Right foot wound is currently dressed - Labs CBC & Chem 7: 04/15/24 05:44 04/15/24 05:44 Labs: Abnormal Lab Results - Last 24 Hours (Table) 04/14/24 04/14/24 04/15/24 Range/Units 16:56 20:44 05:44 WBC (3.8-10.6) k/uL RBC (4.30-5.90) m/uL Hgb (13.0-17.5) gm/dL Hct (39.0-53.0) % MCV (80.0-100.0) fL MCHC (31.0-37.0) g/dL Neutrophils # (1.3-7.7) k/uL Lymphocytes # (1.0-4.8) k/uL Sodium 134 L (137-145) mmol/L Chloride 97 L (98-107) mmol/L BUN 36 H (9-20) mg/dL Creatinine 3.08 H (0.66-1.25) mg/dL Glucose 130 H (74-99) mg/dL POC Glucose (mg/dL) 175 H 162 H (70-110) mg/dL ALT 76 H (4-49) U/L Alkaline Phosphatase 270 H (38-126) U/L Total Protein 5.4 L (6.3-8.2) g/dL Albumin 2.6 L (3.5-5.0) g/dL 04/15/24 04/15/24 04/15/24 Range/Units 05:44 05:49 12:08 WBC 21.2 H (3.8-10.6) k/uL RBC 3.36 L (4.30-5.90) m/uL Hgb 10.5 L (13.0-17.5) gm/dL Hct 35.1 L (39.0-53.0) % MCV 104.5 H (80.0-100.0) fL MCHC 29.9 L (31.0-37.0) g/dL Neutrophils # 19.2 H (1.3-7.7) k/uL Lymphocytes # 0.4 L (1.0-4.8) k/uL Sodium (137-145) mmol/L Chloride (98-107) mmol/L BUN (9-20) mg/dL Creatinine (0.66-1.25) mg/dL Glucose (74-99) mg/dL POC Glucose (mg/dL) 126 H 172 H (70-110) mg/dL ALT (4-49) U/L Alkaline Phosphatase (38-126) U/L Total Protein (6.3-8.2) g/dL Albumin (3.5-5.0) g/dL Microbiology - Last 24 Hours (Table) 04/14/24 08:43 Blood Culture Gram Stain - Preliminary Blood 04/12/24 08:28 Anaerobic Culture - Preliminary Foot - Right Porphyromonas somerae 04/12/24 08:28 Blood Culture Gram Stain - Final Blood Blood Culture - Final Staphylococcus aureus 04/12/24 08:28 Blood Culture Gram Stain - Final Blood Blood Culture - Final Staphylococcus aureus Molecular ID Assessment and Plan (1) Diabetic foot infection Current Visit: Yes Status: Acute Code(s): E11.628 - TYPE 2 DIABETES MELLITUS WITH OTHER SKIN COMPLICATIONS; L08.9 - LOCAL INFECTION OF THE SKIN AND SUBCUTANEOUS TISSUE, UNSP SNOMED Code(s): 781696106 (2) Gangrene of right foot Current Visit: Yes Status: Acute Code(s): I96 - GANGRENE, NOT ELSEWHERE CLASSIFIED SNOMED Code(s): 50644136800711994 (3) Sepsis Current Visit: Yes Status: Acute Code(s): A41.9 - SEPSIS, UNSPECIFIED ORGANISM SNOMED Code(s): 75650323 (4) Type 2 diabetes mellitus with foot ulcer Current Visit: No Status: Acute Code(s): E11.621 - TYPE 2 DIABETES MELLITUS WITH FOOT ULCER; L97.509 - NON-PRESSURE CHRONIC ULCER OTH PRT UNSP FOOT W UNSP SEVERITY SNOMED Code(s): 9420746553175 (5) Bacteremia Current Visit: Yes Status: Acute Code(s): R78.81 - BACTEREMIA SNOMED Code(s): 2389243 Plan: 1patient presented to hospital with sepsis in this patient who did have significant elevated white count he is also hypotensive or tachycardic bradycardia. Sources right diabetic foot infection in this patient who did have a chronic nonhealing wound. Rotation of the right big toe and also with a necrotic wound on the right foot lateral border previous culture positive for MSSA however will need to cover for resistant gram-positive as well as gram-nega tive pathogen pending workup outpatient 2-patient blood cultures Are positive MSSA local culture positive for MSSA and E. coli we will repeat blood culture with a.m. lab to document clearance of his bacteremia 4patient to continue with cefazolin and oral Flagyl Dictation was produced using [employer] dictation software. please excuse any grammatical, word or spelling errors. Time with Patient: Less than 30
[2024-04-15 16:56] LABS: Glucose,Whole Blood 159 mg/dL (70-110)
[2024-04-15 20:01] LABS: Glucose,Whole Blood 130 mg/dL (70-110)
[2024-04-16 04:11] VITALS: TEMP 98.7
[2024-04-16 06:16] LABS: Glucose,Whole Blood 145 mg/dL (70-110)
[2024-04-16 07:43] VITALS: BP 110/71; PULSE 88; RESP 12
[2024-04-16] MEDS ORDERED: CLOPIDOGREL 75 MG TAB ONE (08:04)
[2024-04-16] MEDS ORDERED: APIXABAN 2.5 MG TABLET ONE ×2 (08:04→20:51)
[2024-04-16] MEDS ORDERED: METOPROLOL TARTRATE 12.5 MG TAB ONE ×2 (08:04→20:49)
[2024-04-16] MEDS ORDERED: FLUoxetine HCL 20 MG CAP ONE (08:05)
[2024-04-16] MEDS ORDERED: HYDROcodone/APAP 10-325MG 1 EACH TAB ONE ×2 (10:29→17:09)
[2024-04-16] MEDS ORDERED: CALCIUM CARBONATE 500 MG CHEWABLE PO ONE (10:29)
[2024-04-16 11:10] LABS: Glucose,Whole Blood 163 mg/dL (70-110)
[2024-04-16] MEDS ORDERED: MIDODRINE 5 MG TAB ONE ×2 (12:10→17:00)
[2024-04-16] MEDS ORDERED: CALCIUM ACETATE 667 MG TAB ONE ×2 (12:10→17:00)
[2024-04-16] MEDS ORDERED: INSULIN ASPART (NovoLOG) 100 UNIT/ML VIAL SQ ONE ×4 (12:11→20:50)
[2024-04-16 16:53] LABS: Glucose,Whole Blood 156 mg/dL (70-110)
[2024-04-16 20:46] LABS: Glucose,Whole Blood 165 mg/dL (70-110)
[2024-04-16] MEDS ORDERED: LEVOTHYROXINE 100 MCG TAB ONE (20:49)
[2024-04-16] MEDS ORDERED: ATORVASTATIN 40 MG TAB ONE (20:49)
[2024-04-16] MEDS ORDERED: SODIUM CHLORIDE 0.9% 50 ML BAG IV ONE (23:59)
[2024-04-16] MEDS ORDERED: NOREPINEPHRINE 1 MG/ML 4 ML VIAL IV ONE (23:59)
[2024-04-16] MEDS ORDERED: SODIUM CHLORIDE 0.9% 50 ML BAG ONE (23:59)
[2024-04-16] MEDS ORDERED: SODIUM CHLORIDE 0.9% 250 ML BAG ONE (23:59)
[2024-04-16] MEDS ORDERED: ceFAZolin 1,000 MG VIAL ONE ×2 (23:59)
[2024-04-17] MEDS ORDERED: HYDROcodone/APAP 10-325MG 1 EACH TAB ONE ×3 (02:00→20:42)
[2024-04-17] MEDS ORDERED: CLOPIDOGREL 75 MG TAB ONE (08:36)
[2024-04-17] MEDS ORDERED: FLUoxetine HCL 20 MG CAP ONE (08:36)
[2024-04-17] MEDS ORDERED: METOPROLOL TARTRATE 12.5 MG TAB ONE ×2 (08:36→20:42)
[2024-04-17 11:39] LABS: Glucose,Whole Blood 135 mg/dL (70-110)
[2024-04-17] MEDS ORDERED: CALCIUM ACETATE 667 MG TAB ONE ×2 (12:01→16:57)
[2024-04-17] MEDS ORDERED: MIDODRINE 5 MG TAB ONE ×2 (12:01→16:57)
[2024-04-17] MEDS ORDERED: CALCIUM CARBONATE 500 MG CHEWABLE PO ONE (12:01)
[2024-04-17] MEDS ORDERED: INSULIN ASPART (NovoLOG) 100 UNIT/ML VIAL SQ ONE ×2 (12:02→16:58)
[2024-04-17 16:50] LABS: Glucose,Whole Blood 122 mg/dL (70-110)
[2024-04-17 20:33] LABS: Glucose,Whole Blood 108 mg/dL (70-110)
[2024-04-17] MEDS ORDERED: LEVOTHYROXINE 100 MCG TAB ONE (20:42)
[2024-04-17] MEDS ORDERED: ATORVASTATIN 40 MG TAB ONE (20:42)
[2024-04-18] MEDS ORDERED: MIDODRINE 5 MG TAB ONE ×2 (06:21→17:47)
[2024-04-18 06:23] LABS: Glucose,Whole Blood 152 mg/dL (70-110)
[2024-04-18] MEDS ORDERED: METOPROLOL TARTRATE 12.5 MG TAB ONE ×2 (07:43→20:19)
[2024-04-18] MEDS ORDERED: CLOPIDOGREL 75 MG TAB ONE (07:43)
[2024-04-18] MEDS ORDERED: FLUoxetine HCL 20 MG CAP ONE (07:43)
[2024-04-18 11:16] LABS: Glucose,Whole Blood 165 mg/dL (70-110)
[2024-04-18] MEDS ORDERED: SODIUM CHLORIDE 0.9% 1,000 ML BAG ONE (15:00)
[2024-04-18] MEDS ORDERED: SODIUM HYPOCHLORITE 0.5% 480 ML BOT MISCELLANE ONE (15:00)
[2024-04-18] MEDS ORDERED: SODIUM CHLORIDE 0.9% 250 ML BAG ONE ×2 (15:00→23:59)
[2024-04-18] MEDS ORDERED: NOREPINEPHRINE 1 MG/ML 4 ML VIAL IV ONE ×2 (15:00→23:59)
[2024-04-18] MEDS ORDERED: PHENYLEPHRINE 10 MG/ML VIAL ONE (15:19)
[2024-04-18] MEDS ORDERED: PROPOFOL 10 MG/ML 20 ML VIAL IV ONE (15:19)
[2024-04-18] MEDS ORDERED: MIDAZOLAM 2 MG/2 ML VIAL ONE (15:19)
[2024-04-18] MEDS ORDERED: fentaNYL (PF) 50 MCG/ML 2 ML AMP ONE (15:19)
[2024-04-18] MEDS ORDERED: SUCCINYLCHOLINE CHLORIDE 200 MG/10 ML VIAL IV ONE (15:19)
[2024-04-18] MEDS ORDERED: LIDOCAINE 1% INJ 10MG/ML (20 ML MDV) ONE (15:19)
[2024-04-18 17:05] LABS: Glucose,Whole Blood 173 mg/dL (70-110)
[2024-04-18] MEDS ORDERED: ATORVASTATIN 40 MG TAB ONE (20:18)
[2024-04-18] MEDS ORDERED: LEVOTHYROXINE 100 MCG TAB ONE (20:19)
[2024-04-18] MEDS ORDERED: APIXABAN 2.5 MG TABLET ONE (20:19)
[2024-04-18] MEDS ORDERED: HYDROcodone/APAP 5-325MG 1 EACH TAB ONE (20:21)
[2024-04-18 20:29] LABS: Glucose,Whole Blood 179 mg/dL (70-110)
[2024-04-18] MEDS ORDERED: INSULIN ASPART (NovoLOG) 100 UNIT/ML VIAL SQ ONE (23:30)
[2024-04-18] MEDS ORDERED: SODIUM CHLORIDE 0.9% 50 ML BAG IV ONE (23:59)
[2024-04-18] MEDS ORDERED: ceFAZolin 1,000 MG VIAL ONE (23:59)
[2024-04-19 06:29] LABS: Glucose,Whole Blood 214 mg/dL (70-110)
[2024-04-19] MEDS ORDERED: INSULIN ASPART (NovoLOG) 100 UNIT/ML VIAL SQ ONE (06:35)
[2024-04-19] MEDS ORDERED: CALCIUM ACETATE 667 MG TAB ONE (08:35)
[2024-04-19] MEDS ORDERED: MIDODRINE 5 MG TAB ONE ×2 (08:35→17:15)
[2024-04-19] MEDS ORDERED: CLOPIDOGREL 75 MG TAB ONE (08:35)
[2024-04-19] MEDS ORDERED: FLUoxetine HCL 20 MG CAP ONE (08:36)
[2024-04-19] MEDS ORDERED: METOPROLOL TARTRATE 12.5 MG TAB ONE (08:36)
[2024-04-19] MEDS ORDERED: HYDROcodone/APAP 10-325MG 1 EACH TAB ONE ×3 (09:20→22:29)
[2024-04-19] MEDS ORDERED: APIXABAN 2.5 MG TABLET ONE (09:20)
[2024-04-19 11:30] LABS: Glucose,Whole Blood 156 mg/dL (70-110)
[2024-04-19] MEDS ORDERED: ATORVASTATIN 40 MG TAB ONE (19:58)
[2024-04-19 20:43] LABS: Glucose,Whole Blood 132 mg/dL (70-110)
[2024-04-19] MEDS ORDERED: LEVOTHYROXINE 100 MCG TAB ONE (20:56)
[2024-04-20 06:49] LABS: Glucose,Whole Blood 151 mg/dL (70-110)
[2024-04-20] MEDS ORDERED: HYDROcodone/APAP 10-325MG 1 EACH TAB ONE ×3 (06:54→21:19)
[2024-04-20] MEDS ORDERED: MIDODRINE 5 MG TAB ONE ×3 (06:54→17:12)
[2024-04-20 11:17] LABS: Glucose,Whole Blood 126 mg/dL (70-110)
[2024-04-20] MEDS ORDERED: PHENYLEPHRINE-0.9% NACL SYG 1,000 MCG/10 ML SYRINGE ONE (13:15)
[2024-04-20] MEDS ORDERED: LIDOCAINE 1% INJ 10MG/ML (20 ML MDV) ONE (13:15)
[2024-04-20] MEDS ORDERED: SODIUM CHLORIDE 0.9% 1,000 ML BAG ONE (13:15)
[2024-04-20] MEDS ORDERED: SODIUM CHLORIDE 0.9% 250 ML BAG ONE (13:15)
[2024-04-20] MEDS ORDERED: NOREPINEPHRINE 1 MG/ML 4 ML VIAL IV ONE ×2 (13:15)
[2024-04-20] MEDS ORDERED: KETAMINE HCL IN 0.9 % NACL 50 MG/5 ML SYRINGE ONE (13:15)
[2024-04-20] MEDS ORDERED: MIDAZOLAM 2 MG/2 ML VIAL ONE (13:15)
[2024-04-20] MEDS ORDERED: fentaNYL (PF) 50 MCG/ML 2 ML AMP ONE (13:15)
[2024-04-20] MEDS ORDERED: PROPOFOL 10 MG/ML 20 ML VIAL IV ONE (13:15)
[2024-04-20] MEDS ORDERED: SODIUM CHLORIDE 0.9% 500 ML BAG ONE (13:40)
[2024-04-20] MEDS ORDERED: ceFAZolin 1,000 MG VIAL ONE (13:40)
[2024-04-20 16:53] LABS: Glucose,Whole Blood 132 mg/dL (70-110)
[2024-04-20] MEDS ORDERED: CALCIUM ACETATE 667 MG TAB ONE (17:12)
[2024-04-20 20:59] LABS: Glucose,Whole Blood 153 mg/dL (70-110)
[2024-04-20] MEDS ORDERED: ATORVASTATIN 40 MG TAB ONE (21:14)
[2024-04-20] MEDS ORDERED: LEVOTHYROXINE 100 MCG TAB ONE (21:14)
[2024-04-20] MEDS ORDERED: INSULIN ASPART (NovoLOG) 100 UNIT/ML VIAL SQ ONE (21:20)
[2024-04-21 06:23] LABS: Glucose,Whole Blood 138 mg/dL (70-110)
[2024-04-21] MEDS ORDERED: CALCIUM ACETATE 667 MG TAB ONE ×2 (06:55→17:13)
[2024-04-21] MEDS ORDERED: MIDODRINE 5 MG TAB ONE ×3 (06:56→17:14)
[2024-04-21] MEDS ORDERED: FLUoxetine HCL 20 MG CAP ONE (08:10)
[2024-04-21] MEDS ORDERED: HYDROcodone/APAP 10-325MG 1 EACH TAB ONE (08:21)
[2024-04-21 11:54] LABS: Glucose,Whole Blood 128 mg/dL (70-110)
[2024-04-21] MEDS ORDERED: METOPROLOL TARTRATE 12.5 MG TAB ONE ×2 (12:28→21:32)
[2024-04-21 17:10] LABS: Glucose,Whole Blood 142 mg/dL (70-110)
[2024-04-21] MEDS ORDERED: INSULIN ASPART (NovoLOG) 100 UNIT/ML VIAL SQ ONE (17:14)
[2024-04-21 20:10] LABS: Glucose,Whole Blood 145 mg/dL (70-110)
[2024-04-21] MEDS ORDERED: ATORVASTATIN 40 MG TAB ONE (21:31)
[2024-04-21] MEDS ORDERED: LEVOTHYROXINE 100 MCG TAB ONE (21:32)
[2024-04-22] MEDS ORDERED: HEPARIN SOD,PORK IN 0.45% NACL 250 ML IV ONE (04:54)
[2024-04-22 07:23] LABS: Glucose,Whole Blood 140 mg/dL (70-110)
[2024-04-22] MEDS ORDERED: CALCIUM ACETATE 667 MG TAB ONE ×3 (08:18→16:29)
[2024-04-22] MEDS ORDERED: METOPROLOL TARTRATE 12.5 MG TAB ONE ×2 (08:19→21:01)
[2024-04-22] MEDS ORDERED: MIDODRINE 5 MG TAB ONE ×3 (08:19→16:30)
[2024-04-22] MEDS ORDERED: FLUoxetine HCL 20 MG CAP ONE (08:19)
[2024-04-22] MEDS ORDERED: HYDROcodone/APAP 10-325MG 1 EACH TAB ONE (08:37)
[2024-04-22 11:19] LABS: Glucose,Whole Blood 155 mg/dL (70-110)
[2024-04-22] MEDS ORDERED: INSULIN ASPART (NovoLOG) 100 UNIT/ML VIAL SQ ONE ×2 (12:07→16:30)
[2024-04-22 16:21] LABS: Glucose,Whole Blood 157 mg/dL (70-110)
[2024-04-22 20:54] LABS: Glucose,Whole Blood 107 mg/dL (70-110)
[2024-04-22] MEDS ORDERED: ATORVASTATIN 40 MG TAB ONE (21:01)
[2024-04-22] MEDS ORDERED: LEVOTHYROXINE 100 MCG TAB ONE (21:02)
[2024-04-22] MEDS ORDERED: SODIUM CHLORIDE 0.9% 50 ML BAG IV ONE (23:59)
[2024-04-22] MEDS ORDERED: ceFAZolin 1,000 MG VIAL ONE (23:59)
[2024-04-23 04:04] LABS: Glucose,Whole Blood 156 mg/dL (70-110)
[2024-04-23 07:13] LABS: Glucose,Whole Blood 160 mg/dL (70-110)
[2024-04-23] MEDS ORDERED: METOPROLOL TARTRATE 12.5 MG TAB ONE ×2 (10:02→20:18)
[2024-04-23] MEDS ORDERED: FLUoxetine HCL 20 MG CAP ONE (10:02)
[2024-04-23 11:46] LABS: Glucose,Whole Blood 129 mg/dL (70-110)
[2024-04-23] MEDS ORDERED: ONDANSETRON 4 MG/2 ML VIAL ONE (13:30)
[2024-04-23] MEDS ORDERED: SUGAMMADEX SODIUM 200 MG/2 ML SDV IV ONE (13:30)
[2024-04-23] MEDS ORDERED: VASOPRESSIN 20 UNIT/ML 1 ML VIAL ONE (13:30)
[2024-04-23] MEDS ORDERED: fentaNYL (PF) 50 MCG/ML 2 ML AMP ONE (13:30)
[2024-04-23] MEDS ORDERED: LIDOCAINE 1% INJ 10MG/ML (20 ML MDV) ONE (13:30)
[2024-04-23] MEDS ORDERED: NOREPINEPHRINE 1 MG/ML 4 ML VIAL IV ONE (13:30)
[2024-04-23] MEDS ORDERED: ETOMIDATE 2 MG/ML 10 ML VIAL ONE (13:30)
[2024-04-23] MEDS ORDERED: PHENYLEPHRINE 10 MG/ML VIAL ONE (13:30)
[2024-04-23] MEDS ORDERED: KETAMINE HCL IN 0.9 % NACL 50 MG/5 ML SYRINGE ONE (13:30)
[2024-04-23] MEDS ORDERED: ROCURONIUM 10 MG/ML (5 ML VIAL) IV ONE (13:30)
[2024-04-23] MEDS ORDERED: ATORVASTATIN 40 MG TAB ONE (20:17)
[2024-04-23] MEDS ORDERED: HYDROcodone/APAP 10-325MG 1 EACH TAB ONE (20:18)
[2024-04-23] MEDS ORDERED: LEVOTHYROXINE 100 MCG TAB ONE (20:18)
[2024-04-23 20:26] LABS: Glucose,Whole Blood 160 mg/dL (70-110)
[2024-04-23] MEDS ORDERED: SODIUM CHLORIDE 0.9% 50 ML BAG IV ONE (23:59)
[2024-04-23] MEDS ORDERED: ceFAZolin 1,000 MG VIAL ONE (23:59)
[2024-04-24] MEDS ORDERED: INSULIN ASPART (NovoLOG) 100 UNIT/ML VIAL SQ ONE ×2 (06:24→12:09)
[2024-04-24 06:26] LABS: Glucose,Whole Blood 170 mg/dL (70-110)
[2024-04-24] MEDS ORDERED: CLOPIDOGREL 75 MG TAB ONE (08:51)
[2024-04-24] MEDS ORDERED: METOPROLOL TARTRATE 12.5 MG TAB ONE (08:51)
[2024-04-24] MEDS ORDERED: FLUoxetine HCL 20 MG CAP ONE (08:51)
[2024-04-24] MEDS ORDERED: APIXABAN 2.5 MG TABLET ONE (08:51)
[2024-04-24] MEDS ORDERED: MIDODRINE 5 MG TAB ONE ×3 (08:51→16:23)
[2024-04-24] MEDS ORDERED: CALCIUM ACETATE 667 MG TAB ONE ×2 (08:52→16:23)
[2024-04-24] MEDS ORDERED: CALCIUM CARBONATE 500 MG CHEWABLE PO ONE (09:22)
[2024-04-24] MEDS ORDERED: HYDROcodone/APAP 5-325MG 1 EACH TAB ONE (09:22)
[2024-04-24] MEDS ORDERED: DESMOPRESSIN ACETATE 4 MCG/ML VIAL (MDV) ONE (12:00)
[2024-04-24] MEDS ORDERED: SODIUM CHLORIDE 0.9% 50 ML BAG IV ONE ×2 (12:00→23:59)
[2024-04-24 12:03] LABS: Glucose,Whole Blood 121 mg/dL (70-110)
[2024-04-24 16:20] LABS: Glucose,Whole Blood 107 mg/dL (70-110)
[2024-04-24] MEDS ORDERED: ALBUMIN HUMAN 5% 250 ML IVPB ONE ×2 (18:25)
[2024-04-24] MEDS ORDERED: ALBUMIN HUMAN 5% (12.5gm) 250 ML BOTTLE IVPB ONE (19:46)
[2024-04-24] MEDS ORDERED: AMIODARONE 50 MG/ML 3 ML VIAL IV ONE (19:46)
[2024-04-24] MEDS ORDERED: DEXTROSE 5% IN WATER 100 ML BAG IV ONE (19:46)
[2024-04-24] MEDS ORDERED: SODIUM HYPOCHLORITE 0.5% 480 ML BOT MISCELLANE ONE (23:59)
[2024-04-24] MEDS ORDERED: ceFAZolin 1,000 MG VIAL ONE (23:59)
[2024-04-25] MEDS ORDERED: PHYTONADIONE 10 MG/ML 1 ML AMP ONE (02:51)
[2024-04-25] MEDS ORDERED: SODIUM CHLORIDE 0.9% 50 ML BAG ONE (02:51)
[2024-04-25] MEDS ORDERED: ONDANSETRON 4 MG/2 ML VIAL ONE (05:54)
[2024-04-25] MEDS ORDERED: INSULIN ASPART (NovoLOG) 100 UNIT/ML VIAL SQ ONE ×3 (06:46→16:51)
[2024-04-25] MEDS ORDERED: MIDODRINE 5 MG TAB ONE (08:54)
[2024-04-25] MEDS ORDERED: CALCIUM ACETATE 667 MG TAB ONE (08:54)
[2024-04-25] MEDS ORDERED: CLOPIDOGREL 75 MG TAB ONE (08:54)
[2024-04-25] MEDS ORDERED: FLUoxetine HCL 20 MG CAP ONE (08:55)
[2024-04-25] MEDS ORDERED: METOPROLOL TARTRATE 12.5 MG TAB ONE (08:55)
[2024-04-25 12:25] LABS: Glucose,Whole Blood 146 mg/dL (70-110)
[2024-04-25] MEDS ORDERED: DILTIAZEM 125 MG/25 ML VIAL IV ONE (16:00)
[2024-04-25] MEDS ORDERED: SODIUM CHLORIDE 0.9% 100 ML BAG IV ONE ×2 (16:00→23:59)
[2024-04-25 16:49] LABS: Glucose,Whole Blood 161 mg/dL (70-110)
[2024-04-25] MEDS ORDERED: ATORVASTATIN 40 MG TAB ONE (21:06)
[2024-04-25] MEDS ORDERED: LEVOTHYROXINE 100 MCG TAB ONE (21:07)
[2024-04-25] MEDS ORDERED: LORazepam 2 MG/ML INJ ONE ×2 (21:16)
[2024-04-26] MEDS ORDERED: SODIUM BICARB 8.4% 50 ML SYR (1 MEQ/ML) ONE ×3 (08:33→08:46)
[2024-04-26] MEDS ORDERED: EPINEPHrine 10 ML SYRINGE (0.1 MG/ML) ONE (08:33)
[2024-04-26] MEDS ORDERED: ATROPINE SULFATE 0.1 MG/ML 10ML SYRINGE ONE (08:33)
[2024-04-26] MEDS ORDERED: propofoL 100 ML IV ONE ×12 (08:59→21:03)
[2024-04-26] MEDS ORDERED: PANTOPRAZOLE 40 MG/10 ML VIAL ONE ×2 (09:43)
[2024-04-26] MEDS ORDERED: PIPERACILLIN-TAZOBACTAM 3.375 GM VIAL ONE ×2 (11:36→22:54)
[2024-04-26] MEDS ORDERED: AMIODARONE 200 MG TAB ONE (11:46)
[2024-04-26] MEDS ORDERED: MIDODRINE 5 MG TAB ONE ×2 (14:10→21:41)
[2024-04-26] MEDS ORDERED: CALCIUM ACETATE 667 MG TAB ONE ×2 (14:11→18:31)
[2024-04-26] MEDS ORDERED: SODIUM CHLORIDE 0.9% 50 ML BAG IV ONE (16:15)
[2024-04-26] MEDS ORDERED: VASOPRESSIN 20 UNIT/ML 1 ML VIAL ONE (16:15)
[2024-04-26] MEDS ORDERED: HYDROcodone/APAP 5-325MG 1 EACH TAB ONE (16:37)
[2024-04-26] MEDS ORDERED: INSULIN ASPART (NovoLOG) 100 UNIT/ML VIAL SQ ONE (18:32)
[2024-04-26] MEDS ORDERED: ATORVASTATIN 40 MG TAB ONE (21:41)
[2024-04-26] MEDS ORDERED: LEVOTHYROXINE 100 MCG TAB ONE (21:42)
[2024-04-26] MEDS ORDERED: METOPROLOL TARTRATE 12.5 MG TAB ONE (21:42)
[2024-04-26] MEDS ORDERED: APIXABAN 2.5 MG TABLET ONE (21:42)
[2024-04-26] MEDS ORDERED: CHLORHEXIDINE GLUCONATE 15 ML CUP MUCOUS MEM ONE ×2 (21:44)
[2024-04-26] MEDS ORDERED: SODIUM CHLORIDE 0.9% 250 ML BAG ONE (23:00)
[2024-04-26] MEDS ORDERED: NOREPINEPHRINE 1 MG/ML 4 ML VIAL IV ONE (23:00)
[2024-04-26] MEDS ORDERED: SODIUM CHLORIDE 0.9% 100 ML BAG IV ONE (23:59)
[2024-04-27] MEDS ORDERED: propofoL 100 ML IV ONE ×12 (01:29→23:31)
[2024-04-27] MEDS ORDERED: NOREPINEPHRINE 1 MG/ML 4 ML VIAL IV ONE ×2 (06:45→23:59)
[2024-04-27] MEDS ORDERED: SODIUM CHLORIDE 0.9% 250 ML BAG ONE ×2 (06:45→23:59)
[2024-04-27] MEDS ORDERED: MIDODRINE 5 MG TAB ONE ×2 (06:51→18:18)
[2024-04-27] MEDS ORDERED: INSULIN ASPART (NovoLOG) 100 UNIT/ML VIAL SQ ONE ×2 (07:10→18:19)
--- NOTE | 2024-04-27 11:14 | CA ---
Transthoracic Echo Report Name: Lan Tillman Age: 63 Gender: M : 1960 Exam Date: 04/26/2024 11:59 Exam Location: [place] Ht (in): 71 Wt (lb): 300 Ordering Physician: Attending/Referring Phys: Tanner [employer] Continuous Process Cyn Crowder RDCS Procedure CPT: Indications: Left ventricular failure Cardiac Hx: Technical Quality: Fair, Technically difficult study Contrast 1: Definity Total Dose (mL): 2 Contrast 2: Total Dose (mL): MEASUREMENTS (Male / Female) Normal Values 2D ECHO LV Diastolic Diameter PLAX 6.2 cm 4.2 - 5.9 / 3.9 - 5.3 cm LV Systolic Diameter PLAX 5.4 cm IVS Diastolic Thickness 0.9 cm 0.6 - 1.0 / 0.6 - 0.9 cm LVPW Diastolic Thickness 1.1 cm 0.6 - 1.0 / 0.6 - 0.9 cm LV Relative Wall Thickness 0.3 RV Internal Dim ED PLAX 3.3 cm LVOT Diameter 2.1 cm LA Systolic Diameter LX 5.1 cm 3.0 - 4.0 / 2.7 - 3.8 cm M-MODE Aortic Root Diameter MM 3.4 cm LA Systolic Diameter MM 4.6 cm LA Ao Ratio MM 1.4 AV Cusp Separation MM 0.7 cm DOPPLER AV Peak Velocity 275.7 cm/s AV Peak Gradient 30.4 mmHg AV Mean Velocity 215.6 cm/s AV Mean Gradient 20.4 mmHg AV Velocity Time Integral 43.8 cm MV Peak Velocity 165.4 cm/s MV Peak Gradient 10.9 mmHg MV Mean Velocity 96.3 cm/s MV Mean Gradient 4.6 mmHg MV Velocity Time Integral 34.6 cm Mitral E Point Velocity 137.5 cm/s Mitral A Point Velocity 52.4 cm/s Mitral E to A Ratio 2.6 MV Deceleration Time 197.2 ms MV E' Velocity 4.9 cm/s Mitral E to MV E' Ratio 27.9 TR Peak Velocity 249.1 cm/s TR Peak Gradient 24.8 mmHg Right Ventricular Systolic Press 44.9 mmHg FINDINGS Left Ventricle Left ventricular ejection fraction is estimated at 20-25%. Mildly increased left ventricular diastolic diameter. Severely reduced global left ventricular systolic function. Left ventricular wall thickness normal. Right Ventricle Mild right ventricular dilatation. Mild pulmonary hypertension. Right Atrium Mild right atrial dilatation. Left Atrium Moderately increased left atrial diameter. Mitral Valve Mitral valve thickened. Moderate mitral regurgitation. Mild mitral stenosis, Mean gradient 4.6 mmHg. Aortic Valve Trileaflet aortic valve. Peak gradient of 30mmHg and a mean gradient of 20 mmHg. No aortic regurgitation. Tricuspid Valve Structurally normal tricuspid valve. No tricuspid stenosis. Mild tricuspid regurgitation. Pulmonic Valve Structurally normal pulmonic valve. Pericardium Left pleural effusion. Aorta Normal size aortic root and proximal ascending aorta. CONCLUSIONS Left ventricular ejection fraction is estimated at 20-25%. Severe global LV systolic dysfunction. Apical and periapical hypokinesia Grade III diastolic dysfunction Calcified trileaflet aortic valve with mean gradient of 20 mmHg. Suspect low flow state. Index stroke volume at 20 m/m???. DI 0.3, moderaste to severe aortic stenosis Moderate LA dilatation with elevated LV filling pressures Calcified mitral valve with moderate mitral regurgitation Previewed by: Dr Luis Enrique Coello (Electronically Signed) Final Date: 27 April 2024 11:13
[2024-04-27 12:22] LABS: Glucose,Whole Blood 162 mg/dL (70-110)
[2024-04-27 16:39] LABS: Glucose,Whole Blood 173 mg/dL (70-110)
[2024-04-27 17:55] LABS: Glucose,Whole Blood 191 mg/dL (70-110)
[2024-04-27 21:56] LABS: Glucose,Whole Blood 180 mg/dL (70-110)
[2024-04-27] MEDS ORDERED: CHLORHEXIDINE GLUCONATE 15 ML CUP MUCOUS MEM ONE ×2 (22:23)
[2024-04-27] MEDS ORDERED: PIPERACILLIN-TAZOBACTAM 3.375 GM VIAL ONE (22:23)
[2024-04-27] MEDS ORDERED: ATORVASTATIN 40 MG TAB ONE (22:23)
[2024-04-27] MEDS ORDERED: LEVOTHYROXINE 50 MCG TAB ONE (22:24)
[2024-04-27] MEDS ORDERED: AMIODARONE 200 MG TAB ONE (22:26)
[2024-04-27] MEDS ORDERED: SODIUM CHLORIDE 0.9% 500 ML DEHP FREE BAG IV ONE (23:59)
[2024-04-27] MEDS ORDERED: ALBUMIN HUMAN 5% (12.5gm) 250 ML BOTTLE IVPB ONE (23:59)
[2024-04-27] MEDS ORDERED: VANCOMYCIN 1,000 MG VIAL ONE (23:59)
[2024-04-27] MEDS ORDERED: SODIUM CHLORIDE 0.9% 50 ML BAG IV ONE (23:59)
[2024-04-27] MEDS ORDERED: VASOPRESSIN 20 UNIT/ML 1 ML VIAL ONE (23:59)
[2024-04-28] MEDS ORDERED: DIGOXIN 250 MCG/ML 2 ML AMP ONE ×4 (00:01→14:59)
[2024-04-28] MEDS ORDERED: propofoL 100 ML IV ONE ×12 (02:21→16:04)
[2024-04-28] MEDS ORDERED: CALCIUM ACETATE 667 MG TAB ONE (06:38)
[2024-04-28] MEDS ORDERED: MIDODRINE 5 MG TAB ONE ×2 (06:39→12:37)
[2024-04-28] MEDS ORDERED: INSULIN ASPART (NovoLOG) 100 UNIT/ML VIAL SQ ONE ×2 (06:39→12:38)
[2024-04-28] MEDS ORDERED: HEPARIN SOD,PORK IN 0.45% NACL 250 ML IV ONE (08:47)
[2024-04-28] MEDS ORDERED: CHLORHEXIDINE GLUCONATE 15 ML CUP MUCOUS MEM ONE ×2 (08:47)
[2024-04-28] MEDS ORDERED: FLUoxetine HCL 20 MG CAP ONE (08:47)
[2024-04-28] MEDS ORDERED: PIPERACILLIN-TAZOBACTAM 3.375 GM VIAL ONE (08:47)
[2024-04-28] MEDS ORDERED: PANTOPRAZOLE 40 MG/10 ML VIAL ONE ×2 (08:56)
[2024-04-28 12:07] LABS: Glucose,Whole Blood 176 mg/dL (70-110)
[2024-04-28] MEDS ORDERED: MORPHINE SULFATE 4 MG/ML SYRINGE ONE ×2 (16:37)
[2024-04-28] MEDS ORDERED: LORazepam 2 MG/ML INJ ONE ×2 (16:38)
--- NOTE | 2024-05-04 15:52 | PN ---
PROGRESS NOTE DATE OF SERVICE: 04/22/2024 LOCATION: ICU 265. REASON FOR FOLLOWUP: MSSA bacteremia with right diabetic foot ulcer and osteomyelitis. INTERVAL HISTORY: The patient is afebrile. The patient is breathing comfortably. The patient denies having any chest pain, shortness of breath, or cough. No nausea or vomiting. No abdominal pain or diarrhea. Denies any worsening pain to the right foot. The patient is currently requiring low-dose pressor support as reported by the nursing staff and did have significant bleeding from the right transmetatarsal amputation site requiring dressing application. PHYSICAL EXAMINATION: VITAL SIGNS: Blood pressure 98/63 with a pulse of 76, temperature 98. GENERAL DESCRIPTION: An elderly male lying in bed, in no distress. RESPIRATORY SYSTEM: Unlabored breathing, clear to auscultation anteriorly. HEART: S1, S2 regular rate and rhythm. ABDOMEN: Soft, no tenderness. EXTREMITIES: Right foot is currently dressed. No drainage on the dressing. LABS: Creatinine 3.43. White count 17.43. DIAGNOSTIC IMPRESSION AND PLAN: Patient with MSSA bacteremia concerning for a right diabetic foot ulcer with underlying osteomyelitis in this patient who is status post right transmetatarsal amputation, now seemed to have a problem with the bleeding. Vascular surgery is planning for right [id number] amputation, the patient seems to have agreed to it. The patient will continue with cefazolin and Flagyl. White count still elevated. Need to be monitored closely. Follow up on repeat cultures. MMODL / IJN: [id number] /
--- NOTE | 2024-05-04 15:52 | OP ---
OPERATIVE REPORT DATE OF SERVICE : 04/23/2024 PREOPERATIVE DIAGNOSES:: Right lower extremity wound, infection, diabetes. POSTOPERATIVE DIAGNOSES:: Right lower extremity wound, foot infection, diabetes, right anterior compartment infection. OPERATIONS:: 1. Right below knee amputation. 2. Right lower extremity incision and drainage of anterior compartment. ESTIMATED BLOOD LOSS:: 300 cc. SPECIMEN TAKEN:: Right lower extremity for disposal. COMPLICATIONS: None. CONDITION: Stable but critical. FINDINGS: Purulent drainage of the anterior compartment. NARRATIVE:: The patient is here today for his non-healing right lower extremity wound from diabetes. He has previously undergone transmetatarsal amputation and I and D with washout, was nonhealing. He presents today for bony amputation due to continued non- healing and further issue. Risks and benefits of the procedure were discussed with the patient and his family, understood and is willing to proceed. The patient was brought to the operative suite and placed in supine position. The right lower extremity was prepped and draped in usual sterile fashion. A preprocedure time-out was performed, all parties were in agreement. Prior to all of this, the mini C-arm was used to identify the area where the IM nail in the distal tibia ended, this appeared to be just about 12 cm distal to the tibial plateau, this was marked at the skin level. In two thirds, one third fashion, the circumference of the calf was measured and the flap was measured and created. The skin was incised with a blade and electrocautery was used to dissect down to the level of the bone, once incising into the anterior compartment, there was purulent drainage that was expressed. Further division using electrocautery was performed. Once appropriate clearing of the tibial and periosteal surfaces, the tibia was then transected with a reciprocating saw and the fibula transected 1 cm proximal to this area. The transected areas were smoothed with a rasp. The completion of the amputation was performed with an amputation knife. The flap was debulked. The nerve was placed on traction and ligated and divided sharply to allow retraction. The area was then copiously irrigated. Due to the anterior compartment with purulent drainage, a large counter incision approximately 5 cm in length was created overlying this and carried down to the level of the purulent drainage. It was copiously irrigated with saline followed by Dakin's solution. Attention was then turned towards the closure. The visualized vessels were then ligated with 0 silk sutures. Attention was then turned further towards closure once appropriate hemostasis using 2-0 Vicryl as well as 2-0 nylon and tracie at the skin level. The lateral portion was closed over a Estee drain, which was sutured and placed as well. Wet-to-dry dressings were then placed at the I and D site. Dressing and compression wrap were placed without any issue. The patient was allowed to awaken from anesthesia and transported to Recovery in stable condition, although critical. MMODL / IJN: [id number] / [facility]ENTERAnai
--- NOTE | 2024-05-04 15:52 | PN ---
PROGRESS NOTE DATE OF SERVICE: 04/23/2024 LOCATION: 265 ICU. REASON FOR FOLLOWUP: 1. MSSA bacteremia. 2. Right diabetic foot infection and osteomyelitis. INTERVAL HISTORY: Patient is afebrile. Patient is currently breathing comfortably. Patient denies having any chest pain, shortness of breath, or cough. No nausea, no vomiting. No abdominal pain or pain to the right lower extremity. PHYSICAL EXAMINATION: VITAL SIGNS: Stable. GENERAL DESCRIPTION: An elderly male lying in bed, in no distress. RESPIRATORY SYSTEM: Unlabored breathing, clear to auscultation anteriorly. HEART: S1, S2, regular rate and rhythm. ABDOMEN: Soft, no tenderness. EXTREMITIES: Right foot is currently dressed. No drainage on the dressing. LABS: Blood cultures are pending. DIAGNOSTIC IMPRESSION AND PLAN: Patient with methicillin-susceptible Staphylococcus aureus bacteremia, source likely right diabetic foot wound with underlying osteomyelitis in this patient, who is status post transmetatarsal amputation now with concerning for bleeding, nonhealing. Scheduled for a right [id number] amputation. We will continue the patient on cefazolin and Flagyl. Family at the bedside. Questions were answered. MMODL / IJN: [id number] /
--- NOTE | 2024-05-04 15:53 | PN ---
Date of service is 04/24/2024 PROGRESS NOTE LOCATION: [facility]. REASON FOR FOLLOWUP: MSSA bacteremia secondary to right diabetic foot osteomyelitis. INTERVAL HISTORY: The patient is status post right zepep-jlo-qmki amputation completed yesterday. As per discussion with the vascular surgeon, he noticed to have ascending infection to right leg. No new culture has been obtained. The patient denies having any fever or any chills or pain to the right lower extremity. He did have low blood pressure requiring pressor support and is currently going to dialysis. No nausea, vomiting, abdominal pain or diarrhea. PHYSICAL EXAMINATION: VITAL SIGNS: Blood pressure 99/41, pulse of 96, temperature 97.8. He is 97% on room air. GENERAL DESCRIPTION: The patient is an elderly male lying in bed, in no distress. RESPIRATORY SYSTEM: Unlabored breathing, clear to auscultation anteriorly. HEART: S1, S2. Regular rate and rhythm. ABDOMEN: Soft, no tenderness. EXTREMITIES: Right BKA stump is currently dressed. LABS: Repeat blood cultures currently pending. DIAGNOSTIC IMPRESSION AND PLAN: Patient with MSSA bacteremia, source likely right diabetic foot ulcer with osteomyelitis, initially transmetatarsal amputation, subsequently did have a right kozgj-cix-qgil amputation with ascending infection the leg. We are waiting for the blood culture to finalize. Continue cefazolin and Flagyl. at the bedside. Multiple questions were answered. MMODL / IJN: [id number] / JEANNETTE
--- NOTE | 2024-05-04 15:53 | PN ---
PROGRESS NOTE DATE OF SERVICE: 04/25/2024 LOCATION: 265. REASON FOR FOLLOWUP: Sepsis, MSSA bacteremia, and diabetic foot infection. INTERVAL HISTORY: The patient is afebrile. The patient was noticed to be tachycardic and is getting started on amiodarone drip per the nursing staff. The patient was also noted to have some confusion as reported by the nursing staff. The patient himself denies having any headache. No chest pain, shortness of breath, or cough. No abdominal pain. No pain to the right lower extremity. PHYSICAL EXAMINATION: VITAL SIGNS: Blood pressure 103/50, pulse 137, temperature of 98 F, on 2 L nasal cannula. GENERAL DESCRIPTION: The patient is an elderly male lying in bed, in no distress. RESPIRATORY SYSTEM: Unlabored breathing, clear to auscultation anteriorly. HEART: S1, S2. Regular rate and rhythm. ABDOMEN: Soft. No distention. No guarding. No rigidity. EXTREMITIES: Right leg wound is currently dressed. DIAGNOSTIC IMPRESSION AND PLAN: The patient with sepsis secondary to right diabetic foot ulcer and osteomyelitis, status post initial right transmetatarsal followed by right BKA, now with tachycardia, hypotension, concerning for persistent sepsis. We will obtain blood cultures, discontinue cefazolin, and start the patient on nafcillin and monitor clinical course closely. Prognosis remains to be guarded. MMODL / IJN: [id number] / MTDD
--- NOTE | 2024-05-04 15:54 | PCN ---
PROCEDURE NOTE PREOPERATIVE DIAGNOSIS: Cardiac arrest. POSTOPERATIVE DIAGNOSIS: Cardiac arrest. PROCEDURE: Insertion of an arterial line. SITE OF INSERTION: Right radial artery. PROCEDURE IN DETAIL: Right upper extremity was placed in the usual fashion with the wrist extended on the bedside table. The right radial artery was palpated. Using an introducer needle, the right radial artery was cannulated. A guidewire was inserted, and following that, the Cook catheter was inserted successfully into the right radial artery. Appropriate waveform of blood pressure was obtained. The catheter was hooked to the monitor and sutured in place. No complications. MMODL / IJN: [id number] /
--- NOTE | 2024-05-04 15:54 | PN ---
Date of service is 04/26/2024 PROGRESS NOTE LOCATION: [facility]. REASON FOR FOLLOWUP: Sepsis, bacteremia. INTERVAL HISTORY: The patient did have significant change in his clinical condition. As the patient became bradycardic and did have a cardiac arrest requiring resuscitation. The patient is currently on pressor support. Nursing staff did not mention any nausea or vomiting or any significant purulent secretion at the time of intubation or suctioning. He is currently on pressors. However, she did mention when cutting back on the propofol, the patient seems to be slightly responding. PHYSICAL EXAMINATION: VITAL SIGNS: Blood pressure 110/54, pulse of 99, temperature of 98. He is 97% on ventilator. GENERAL DESCRIPTION: This is an elderly male, intubated on the vent. RESPIRATORY SYSTEM: Unlabored breathing, decreased intensity of breath sounds. No wheeze. HEART: S1, S2. Regular rate and rhythm. ABDOMEN: Soft, no tenderness. EXTREMITIES: Right BKA stump is currently dressed. DIAGNOSTIC IMPRESSION AND PLAN: The patient was initially admitted to the hospital with right diabetic foot wound osteomyelitis and methicillin-susceptible Staphylococcus aureus bacteremia, status post initial right transmetatarsal followed by right below-knee amputation with sepsis, cardiac arrest and significant change in his clinical condition. Culture has been repeated. Antibiotics have been switched over to vancomycin and Zosyn. Family at the bedside. Multiple questions and concerns were answered. MMODL / IJN: [id number] / MTDD
--- NOTE | 2024-05-04 15:55 | PN ---
Date of service is 04/28/2024 PROGRESS NOTE REASON FOR FOLLOWUP: Sepsis, diabetic foot infection, and bacteremia. INTERVAL HISTORY: The patient is afebrile. The patient is requiring less pressor support as reported by the nursing staff. The patient remains to be intubated on the vent. He is hemodynamically stable. No vomiting, diarrhea or any other changes reported by the nursing staff. PHYSICAL EXAMINATION: VITAL SIGNS: Blood pressure 128/57, pulse 106, temperature 98.1. GENERAL DESCRIPTION: This is an elderly male, intubated on the vent. RESPIRATORY SYSTEM: Unlabored breathing. Clear to auscultation anteriorly. HEART: S1, S2. Regular. ABDOMEN: Soft, no guarding, no rigidity. EXTREMITIES: Right BKA stump is currently dressed. LABORATORY DATA: White count is 25,000. Repeat cultures currently pending. DIAGNOSTIC IMPRESSION AND PLAN: The patient with sepsis, source is multifactorial. Initially presented to hospital with right diabetic foot ulcer, osteomyelitis, MSSA bacteremia requiring transmetatarsal amputation followed by right BKA. The patient subsequently did have sepsis requiring intubation. He is broadly covered with vancomycin and Zosyn to continue while waiting for the repeat culture to finalize and monitor clinical course closely. MMODL / IJN: [id number] / MTDAnai
--- NOTE | 2024-05-04 15:55 | PN ---
PROGRESS NOTE DATE OF SERVICE: 04/27/2024 LOCATION: 265. REASON FOR FOLLOWUP: Sepsis and bacteremia. INTERVAL HISTORY: The patient remains to be intubated on the vent. He did spike a fever this afternoon of 101 degrees Fahrenheit. The patient required to be on pressor support maximum. At this point, per the nursing staff, no significant purulent secretions through the ET or other changes reported. Mentioned overall right lower extremity that his BKA stump wound looks clean. PHYSICAL EXAMINATION: VITAL SIGNS: Blood pressure 119/63, pulse of 102, and temperature of 101 degrees Fahrenheit. GENERAL DESCRIPTION: This is an elderly male, intubated on the vent. RESPIRATORY SYSTEM: Unlabored breathing. Clear to auscultation anteriorly. HEART: S1 and S2. Regular rate and rhythm. ABDOMEN: Soft, no tenderness. EXTREMITIES: Right BKA stump is currently dressed. DIAGNOSTIC IMPRESSION AND PLAN: The patient was initially admitted to the hospital with subsequent right diabetic foot ulcer, osteomyelitis, and did have a right transmetatarsal amputation followed by right below-knee amputation. Did have a significant worsening of his clinical condition yesterday, requiring intubation and resuscitation. The patient is covered with vancomycin and Zosyn to continue while waiting for the culture to finalize. Family at the bedside. Multiple questions were answered. MMODL / IJN: [id number] / JEANNETTE
--- NOTE | 2024-05-04 15:55 | PCN ---
PROCEDURE NOTE PROCEDURE: Triple-lumen catheter insertion site of insertion right femoral artery. PREOPERATIVE DIAGNOSIS: Septic shock. POSTOPERATIVE DIAGNOSIS: Septic shock. DESCRIPTION OF PROCEDURE: Procedure was done in the usual fashion. Right groin was cleaned using ChloraPrep. Introducer needle was used to identify the right femoral vein. Guidewire was inserted. The skin was incised with a scalpel and dilated and following that, using the Seldinger technique, the triple-lumen catheter was inserted into the right femoral vein and the guidewire was removed. No complications. Catheter was sutured in place. MMODL / IJN: [id number] /
--- NOTE | 2024-05-11 18:20 | XR ---
EXAMINATION TYPE: XR chest 1V DATE OF EXAM: 05/11/2024 COMPARISON: 04/12/2024 HISTORY: 63-year-old male CHF TECHNIQUE: Single frontal view of the chest is obtained. FINDINGS: Ndoo-pu-uvpkjpoa cardiomegaly. Development of perihilar and diffuse interstitial and patch y opacities. Suspect small hilar pleural effusions. IMPRESSION: Cardiomegaly with the development of pulmonary edema and suspected underlying small effus ions.
--- NOTE | 2024-05-18 14:20 | CT ---
Patient Lan Tillman ID [id number] Order # EXAMINATION TYPE: CT brain wo con DATE OF EXAM: 04/25/2024 COMPARISON: No comparison images on downtime PACS. INDICATION: Bleeding, possible clot DLP: 1256.4 mGycm, Automated exposure control for dose reduction was used. CONTRAST: None CT of the brain is performed utilizing 3 mm thick sections through the posterior fossa and 3 mm thick sections through the remaining calvarium. Study is performed within 24 hours of arrival to the hosp ital. Beam hardening artifact from dental amalgam is present. No abnormal hyperdensity is present to suggest an acute intracranial hemorrhage. No subacute hemorrha ge identified. No mass lesion is evident. No mass effect evident on the brain. No acute infarcts are evident. Ventricles and sulci are prominent for the patient age compatible with atrophy. Paranasal sinuses and mastoid air cells within the vvdtj-nn-xksz are clear. No acute fractures eviden t. IMPRESSION: 1. No acute intracranial hemorrhage identified. No subacute hemorrhage evident. 2. Atrophy. 3. Follow-up MRI can be performed as clinically indicated.
--- NOTE | 2024-05-24 12:51 | CDI ---
Documentation Clarification Form Date: 05/24/2024 12:28:05 PM From: Viki Rush Phone: Admit Date: 04/12/2024 08:31:00 AM Patient Name: Lan Tillman Visit Number: [id number] Discharge Date: 04/28/2024 12:34:00 PM ATTENTION: The Clinical Documentation Specialists (CDI) and [facility] Coding Staff appreciate your assistance in clarifying documentation. Please respond to the clarification below the line at the bottom and electronically sign. The CDI & [facility] Coding staff will review the response and follow-up if needed. Please note: Queries are made part of the Legal Health Record. If you have any questions, please contact the author of this message via ITS. Doctor/Provider: Melanie Bennett Your patient has the documented diagnosis of Acute on Chronic CHF per Cardiology note 04/28 (pg 8 of 17 paper chart). Additional information regarding the type of CHF is requested. History/Risk Factors: 63yo M, MSSA severe Sepsis,IDDMIIw PVD, retinopathy, footinfection & perph neuropathy, AVANI, ESRD, HTN, HLD, persistent A Fib, hypothyroid, MDD, anemia, former smoker Clinical Indicators: VS/Pulse OX: 96-100 BNP: 192,000 Echocardiogram Results: LV EF is estimated at 20-25%. Severe global LV systolicdysfunction. Apical and periapical hypokinesia. Grade III diastolicdysfunction. Calcifiedtrileaflet aortic valve with mean gradient of 20 mmHg. Suspect low flow state. Indexstrokevolume at 20 m/m?DI 0.3, moderate to severe . Moderate LAdilatationwithelevatedLV fillingpressures. CalcifiedMV with moderateMR. Chest x ray: Heart size is stable. Mediastinal structures are stable and grossly unremarkable. 04/12/24 Cardiomegalywith the development ofpulmonary edemaandsuspected underlying smalleffusions. 04/23/24 Treatment: Continue supportive care with antibiotics and forsepsismanagement in ICU. Continue current medications aspirin 2.5, Lipitor 40, Plavix 75, metoprolol 12.5mg twice daily. Refrain from using midodrine. Pt suffered PEA, was later made DNR with palliative care and on 04/28. In your professional opinion, can you please clarify the type of CHF if known? [ x ] Acute on Chronic Systolic Heart Failure (reduced EF) [ ] Acute on Chronic Diastolic Heart Failure (preserved EF) [ ] Acute on Chronic Heart Failure Systolic & Diastolic Heart Failure [ ] Other, please specify [ ] Unable to determine (Template Last Revised: October 2020) per echo from 12/09/2023 ef is 25-30% MTDD
--- NOTE | 2024-05-28 14:13 | XR ---
Patient Lan Tillman ID [id number] Order # EXAMINATION TYPE: XR chest 1V DATE OF EXAM: 04/26/2024 COMPARISON: No comparison available on downtime PACS. INDICATION: Short of breath TECHNIQUE: Single frontal view of the chest is obtained. FINDINGS: The heart size is upper limits for normal. The pulmonary vasculature is normal. There is elevation of the right diaphragm. Right subpulmonic effusion is not excluded. Minimal left p leural effusion is not excluded. IMPRESSION: 1. Suggestion of moderate right and small left pleural effusions. Follow-up recommended
--- NOTE | 2024-05-29 07:54 | XR ---
Patient Lan Tillman ID [id number] Order # EXAMINATION TYPE: XR chest 1V portable DATE OF EXAM: 04/27/2024 COMPARISON: 04/26/2024 INDICATION: Tube placement TECHNIQUE: Single frontal view of the chest is obtained. FINDINGS: The heart size is prominent. The pulmonary vasculature is ,. Bibasilar infiltrates are present. Endotracheal tube tip is 3 cm above the kathy. Nasogastric tube is present, distal tip is not identi fied. IMPRESSION: 1. Clinical correlation recommended for congestive heart failure. Bibasilar atelectasis or pneumonia could be considered. 2. Endotracheal tube tip 3 cm above the kathy. 3. Nasogastric tube tip not identified
--- NOTE | 2024-05-29 13:50 | XR ---
EXAMINATION TYPE: XR chest 1V DATE OF EXAM: 04/26/2024 COMPARISON: No comparison available on downtime PACS. INDICATION: Short of breath TECHNIQUE: Single frontal view of the chest is obtained. FINDINGS: The heart size is upper limits for normal. The pulmonary vasculature if normal. There is elevation of the right diaphragm. Right subpulmonic effusion is not excluded. Minimal left pleural effusion is not excluded. IMPRESSION: 1. Suggestion of moderate right and small left pleural effusions. Follow-up recommended. [facility], , 05/29/2024 1:48 PM
--- NOTE | 2024-05-30 10:13 | XR ---
EXAMINATION TYPE: XR chest 1V DATE OF EXAM: 04/28/24 COMPARISON: 04/27/24 INDICATION: ET tube placement TECHNIQUE: Single frontal view of the chest is obtained. FINDINGS: The heart size is large. The pulmonary vasculature is prominent. Bibasilar infiltrates are present. Small to moderate right pleural effusion may be present. Air Bronchograms are present on the right. Endotracheal tube tip is 2.9 cm above the kathy nasogastric tube tip is within the abdomen. IMPRESSION: 1. Conical correlation recommended for worsening congestive heart failure. 2. Developing right lower lobe consolidation and/or pleural effusion. 3. Endotracheal tube tip 2.9 cm above the kathy. MTDD
== END 2024-04-28 08:31 | disposition expired | DRG 853 ==
LOC: EC 06:25 → 3SCARD 08:31 → 2SICU 15:50
PROVIDERS: ADMIT Internal Medicine; ATTEND Internal Medicine
PROC: 3E053XZ Introduction of Vasopressor into Peripheral Artery, Percutaneous Approach (ICD-10-PCS; 2024-04-13)
PROC: 5A1D70Z Performance of Urinary Filtration, Intermittent, Less than 6 Hours Per Day (ICD-10-PCS; 2024-04-13)
PROC: 0Y9H0ZZ Drainage of Right Lower Leg, Open Approach (ICD-10-PCS; 2024-04-23)
PROC: 30233N1 Transfusion of Nonautologous Red Blood Cells into Peripheral Vein, Percutaneous Approach (ICD-10-PCS; 2024-04-23)
PROC: 0Y6H0Z3 Detachment at Right Lower Leg, Low, Open Approach (ICD-10-PCS; principal; 2024-04-23 13:00)
PROC: 30233K1 Transfusion of Nonautologous Frozen Plasma into Peripheral Vein, Percutaneous Approach (ICD-10-PCS; 2024-04-25)
PROC: 03HY32Z Insertion of Monitoring Device into Upper Artery, Percutaneous Approach (ICD-10-PCS; 2024-04-26)
PROC: 4A133B1 Monitoring of Arterial Pressure, Peripheral, Percutaneous Approach (ICD-10-PCS; 2024-04-26)
PROC: 4A133J1 Monitoring of Arterial Pulse, Peripheral, Percutaneous Approach (ICD-10-PCS; 2024-04-26)
PROC: 5A12012 Performance of Cardiac Output, Single, Manual (ICD-10-PCS; 2024-04-26)
PROC: 0BH18EZ Insertion of Endotracheal Airway into Trachea, Via Natural or Artificial Opening Endoscopic (ICD-10-PCS; 2024-04-26)
PROC: 5A1945Z Respiratory Ventilation, 24-96 Consecutive Hours (ICD-10-PCS; 2024-04-26)
PROC: 3E033RZ Introduction of Antiarrhythmic into Peripheral Vein, Percutaneous Approach (ICD-10-PCS; 2024-04-26)
PROC: 30233J1 Transfusion of Nonautologous Serum Albumin into Peripheral Vein, Percutaneous Approach (ICD-10-PCS; 2024-04-27)
PROC: 06HY33Z Insertion of Infusion Device into Lower Vein, Percutaneous Approach (ICD-10-PCS; 2024-04-28)
PROC: 3E043XZ Introduction of Vasopressor into Central Vein, Percutaneous Approach (ICD-10-PCS; 2024-04-28)
DX: A41.01 Sepsis due to Methicillin susceptible Staphylococcus aureus (principal); G93.41 Metabolic encephalopathy; R65.21 Severe sepsis with septic shock; J96.01 Acute respiratory failure with hypoxia; I21.A1 Myocardial infarction type 2; N18.6 End stage renal disease; I50.23 Acute on chronic systolic (congestive) heart failure; I70.261 Atherosclerosis of native arteries of extremities with gangrene, right leg; I13.2 Hypertensive heart and chronic kidney disease with heart failure and with stage 5 chronic kidney disease, or end stage renal disease; D84.81 Immunodeficiency due to conditions classified elsewhere; D68.8 Other specified coagulation defects; E11.52 Type 2 diabetes mellitus with diabetic peripheral angiopathy with gangrene; I42.8 Other cardiomyopathies; T84.126A Displacement of internal fixation device of bone of right lower leg, initial encounter; I48.19 Other persistent atrial fibrillation; E87.1 Hypo-osmolality and hyponatremia; L03.115 Cellulitis of right lower limb; I51.81 Takotsubo syndrome; Z66 Do not resuscitate; Z51.5 Encounter for palliative care; E11.319 Type 2 diabetes mellitus with unspecified diabetic retinopathy without macular edema; E11.22 Type 2 diabetes mellitus with diabetic chronic kidney disease; E11.69 Type 2 diabetes mellitus with other specified complication; E11.42 Type 2 diabetes mellitus with diabetic polyneuropathy; Z99.2 Dependence on renal dialysis; Z89.411 Acquired absence of right great toe; Z79.4 Long term (current) use of insulin; I46.8 Cardiac arrest due to other underlying condition; I95.3 Hypotension of hemodialysis; D63.1 Anemia in chronic kidney disease; E83.39 Other disorders of phosphorus metabolism; E03.9 Hypothyroidism, unspecified; F32.9 Major depressive disorder, single episode, unspecified; F41.9 Anxiety disorder, unspecified; M89.8X9 Other specified disorders of bone, unspecified site; R29.6 Repeated falls; B95.61 Methicillin susceptible Staphylococcus aureus infection as the cause of diseases classified elsewhere; I25.10 Atherosclerotic heart disease of native coronary artery without angina pectoris; G47.33 Obstructive sleep apnea (adult) (pediatric); Z53.8 Procedure and treatment not carried out for other reasons; H54.7 Unspecified visual loss; E83.42 Hypomagnesemia; E78.5 Hyperlipidemia, unspecified; W01.190A Fall on same level from slipping, tripping and stumbling with subsequent striking against furniture, initial encounter; Y79.3 Surgical instruments, materials and orthopedic devices (including sutures) associated with adverse incidents; Z85.46 Personal history of malignant neoplasm of prostate; Z86.14 Personal history of Methicillin resistant Staphylococcus aureus infection; I25.2 Old myocardial infarction; Z86.73 Personal history of transient ischemic attack (TIA), and cerebral infarction without residual deficits; Z11.52 Encounter for screening for COVID-19; Z87.891 Personal history of nicotine dependence; Z95.5 Presence of coronary angioplasty implant and graft; Z92.3 Personal history of irradiation; Z79.02 Long term (current) use of antithrombotics/antiplatelets; Z79.01 Long term (current) use of anticoagulants; Z79.890 Hormone replacement therapy; Z79.899 Other long term (current) drug therapy; Z98.84 Bariatric surgery status; Z89.029 Acquired absence of unspecified finger(s); Z87.39 Personal history of other diseases of the musculoskeletal system and connective tissue; Z91.81 History of falling
CPT/HCPCS: 36415; 36430; 36600; 70450; 71045; 71046; 72125; 80048; 80051; 80053; 80202; 82533; 82565; 83036; 83605; 83735; 83880; 84100; 84484; 84520; 85025; 85027; 85610; 85730; 86850; 86900; 86901; 86920; 87040; 87070; 87075; 87077; 87186; 87205; 87636; 90935; 92950; 93005; 93306; 94003; 96365; 96366; 96367; 99285

== ENCOUNTER → 2024-04-20 | Day surgery (SDC) | payer MEDICARE, BC | LOC: OR 07:30 | PROVIDERS: ATTEND Surgery | DX: S81.801A Unspecified open wound, right lower leg, initial encounter (principal); X58.XXXA Exposure to other specified factors, initial encounter ==